=== PATIENT | female | born 1940 | race Caucasian/White ===

== ENCOUNTER → 2016-10-05 | Outpatient (CLI) | payer MEDICARE, OTHER ==
[~2016-10-05] MED LIST: ACET-2055 PO; ASPI-586 PO; D3/R1CAP PO; FLUT9.9S NSEACH; FLUTICASONE; GADOBUTROL 7.5 MMOL/7.5 ML (GADAVIST) VIAL IV ONE; GLUC1TAB29 PO; LEVO100T PO; LISI10TA2 PO; METO-272 PO; OMEP20CA6 PO; PRAV80TA2 PO; VITA150T PO
[2016-10-05 14:13] LABS: BLOOD UREA NITROGEN 16 MG/DL (7-18); BUN/CREATININE RATIO 19 (0-20); CREATININE SERUM 0.85 MG/DL (0.60-1.30); GFR ESTIMATED > 60
--- NOTE | 2016-10-05 15:59 | Diagnostic Imaging Report ---
PROCEDURE: MR imaging of the brain with and without contrast. TECHNIQUE: Multiplanar, multisequence MR imaging of the brain was performed with and without contrast. INDICATION: TIA. Dizziness and lightheadedness. 6 mL of Gadavist is administered intravenously. FINDINGS: There is no diffusion restriction to suggest an acute infarct or other diffusion abnormality. There is prominent periventricular and deep white matter T2 hyperintense signal abnormalities without associated edema or mass effect. No contrast enhancement. This is most likely related to chronic microvascular ischemic changes. There is no hydrocephalus. No extra-axial fluid collection is seen. The pituitary gland is normal in size. No hypothalamic or pineal region mass. The central vascular flow-voids appear grossly unremarkable. The internal auditory canals and inner ear structures appear unremarkable. There is minimal mucosal thickening in the ethmoid air cells and mild mucosal thickening along the nasal cavity in the middle and inferior turbinates. The orbits appear symmetric. IMPRESSION: White matter findings are suggestive of chronic microvascular ischemic changes. No acute infarct or enhancing mass. Dictated by: Dictated on workstation # [id number]
--- NOTE | 2016-10-05 16:14 | Diagnostic Imaging Report ---
PROCEDURE: US Carotid Duplex Bilateral. TECHNIQUE: Multiple real-time grayscale images were obtained over the carotid arteries in various projections bilaterally. Additional duplex Doppler and color Doppler images were also obtained. INDICATION: Dizziness, lightheadedness and TIA. FINDINGS: Grayscale images demonstrate no significant atherosclerotic plaque. Color Doppler demonstrates patency of the common, and internal and external carotid arteries bilaterally. There is antegrade flow demonstrated in the vertebral arteries as well. Peak systolic velocities are 72, 91 and 88 cm/s from proximal to distal on the right side and on the left 70, 83 and 91 cm/s. ICA/CCA ratios are up to 0.9 on the right and 1.1 on the left. IMPRESSION: Estimated underlying stenosis is in the range of 0-25% bilaterally. Dictated by: Dictated on workstation # [id number]
== END ==
LOC: RAD 13:35
PROVIDERS: ATTEND Nurse Practitioner Family
DX: R42 Dizziness and giddiness (principal); R51 Headache; Z86.73 Personal history of transient ischemic attack (TIA), and cerebral infarction without residual deficits
CPT/HCPCS: 36415; 70553; 82565; 84520; 93880

== ENCOUNTER 2017-10-04 14:08 | Outpatient (RCR) | payer MEDICARE, OTHER ==
[~2017-10-04 14:08] MED LIST changes: -GADOBUTROL 7.5 MMOL/7.5 ML (GADAVIST) VIAL IV ONE; -METO-272 PO; +METO-370 PO
== END 2017-10-07 | disposition home or self-care (01) ==
LOC: CR3 14:08
PROVIDERS: ATTEND Family Medicine
DX: Z29.8 Encounter for other specified prophylactic measures (principal)

== ENCOUNTER 2017-11-03 11:25 | Outpatient (RCR) | payer MEDICARE, OTHER | END 2017-11-06 | disposition home or self-care (01) | LOC: CR3 11:25 | PROVIDERS: ATTEND Family Medicine | DX: Z29.8 Encounter for other specified prophylactic measures (principal) ==

== ENCOUNTER 2018-01-05 13:31 | Outpatient (RCR) | payer MEDICARE, OTHER | END 2018-01-14 | disposition home or self-care (01) | LOC: CR3 13:31 | PROVIDERS: ATTEND Family Medicine | DX: Z29.8 Encounter for other specified prophylactic measures (principal) ==

== ENCOUNTER 2018-02-08 06:00 | Outpatient (RCR) | payer MEDICARE, OTHER | END 2018-02-18 | disposition home or self-care (01) | LOC: CR3 06:00 | PROVIDERS: ATTEND Family Medicine | DX: Z29.8 Encounter for other specified prophylactic measures (principal) ==

== ENCOUNTER 2018-02-26 12:23 | Emergency (ER) | payer MEDICARE, OTHER ==
[~2018-02-26] VITALS: Ht 160 cm; Wt 65.8 kg
--- OUTSIDE RECORDS SUMMARY | 2018-02-26 12:28 | XMS REPORT | Clinical Summary ---
Author Author [facility] Organization [facility] Address Unknown Phone Unavailable Care Team Providers Care Cytopathologist Name Role Phone Ange Frazier MD PCP Unavailable Allergies Active Allergy Reactions Severity Noted Date Comments Meperidine 12/19/2013 "cant function" dizzy" "lightheaded" Hydromorphone (Bulk) 12/19/2013 "cant function" "dizzy" Hydrocodone 12/19/2013 Hallucinate Latex, Natural Rubber Rash Low 10/27/2013 Oxycodone 12/19/2013 Hallucinate, headache Sulfa (Sulfonamide Hives, Swelling 09/15/2013 Antibiotics) Current Medications Prescription Sig. Disp. Refills Start End Date Status Date pravastatin (PRAVACHOL) Take 80 mg by mouth Active 80 MG tablet daily. METOPROLOL SUCCINATE ORAL Take 50 mg by mouth Active daily. LISINOPRIL ORAL Take 20 mg by mouth Active daily. fluticasone (FLONASE) 50 1 spray into each Active mcg/actuation nasal spray nostril. diazepam (VALIUM) 5 MG Take 5 mg by mouth every Active tablet 6 (six) hours as needed for anxiety or muscle spasms. traMADol (ULTRAM) 50 mg Take 50 mg by mouth every Active tablet 6 (six) hours as needed for pain. Two tabs every 6 hours for a total of 100mg acetaminophen (TYLENOL 8 Take 650 mg by mouth Active HOUR) 650 MG CR tablet every 6 (six) hours. rivaroxaban (XARELTO) 10 Take 10 mg by mouth 2 Active mg tablet (two) times a day. To take for 3 weeks and then take 20mg as prescribed fluticasone (FLONASE) 50 inhale 1 spray by 1 0 10/17/19 Active mcg/actuation nasal spray intranasal route every 15 day in each nostril acetaminophen (TYLENOL take 2 tablet by oral 1 0 10/17/19 Active ARTHRITIS PAIN) 650 MG CR route at night 15 tablet cholecalciferol, vitamin Take as directed 1 0 04/19/18 Active D3, (VITAMIN D3) 5,000 00 unit Tab omeprazole (PRILOSEC OTC) Take once daily 1 0 08/16/19 Active 20 MG tablet 14 pravastatin (PRAVACHOL) take 1 tablet (80MG) by 30 0 08/16/19 Active 80 MG tablet oral route every day 14 aspirin (ASPIRIN LOW take 1 tablet (81MG) by 1 0 02/23/20 Active DOSE) 81 MG EC tablet oral route every day 12 glucosamine HCl-msm 2 po daily 60 0 02/23/20 Active (GLUCOSAMINE MSM) 12 1,500-500 mg/30 mL Liqd calcium carbonate-vitamin 2 po daily 60 0 02/23/20 Active D3 (CALCIUM 500 WITH D) 12 500 mg(1,250mg) -400 unit Tab multivitamin (THERAGRAN) 1 po daily 30 0 02/23/20 Active per tablet 12 metoprolol succinate take 1 tablet (50MG) by 30 10 11/02/19 Active (TOPROL-XL) 50 MG 24 hr oral route every day 15 tablet levothyroxine (SYNTHROID, Take one tablet (100 mcg 30 tablet 6 Active LEVOTHROID) 100 MCG total) by mouth daily. 15 tablet levothyroxine (SYNTHROID) 1 tab po daily 30 tablet 3 01/24/20 Active 100 MCG tablet 15 lisinopril Take one tablet (10 mg 30 tablet 3 01/24/20 Active (PRINIVIL,ZESTRIL) 10 MG total) by mouth daily. 15 tablet Active Problems Problem Noted Date Chronic knee pain 12/19/2013 Right knee pain 11/07/2013 Syncope and collapse 11/29/2012 Family History Medical History Relation Name Comments Other Sister Diagnosed with HTN, Relation Name Status Comments Father Cause of was CAD at age 68. (Age 68) Mother Cause of was at age 86. (Age 86) Sister Social History Tobacco Use Types Packs/Day Years Used Date Never Smoker Alcohol Use Drinks/Week oz/Week Comments Yes 1 drink a week Sex Assigned at Date Recorded Not on file Last Filed Vital Signs Vital Sign Reading Time Taken Blood Pressure 138/86 10/16/2014 2:55 PM CDT Pulse 66 10/16/2014 2:55 PM CDT Temperature 36.6 C (97.9 F) 12/22/2013 11:23 AM CDT Respiratory Rate 22 12/22/2013 1:29 PM CDT Oxygen Saturation 97% 12/22/2013 1:29 PM CDT Inhaled Oxygen - - Concentration Weight 64.9 kg (143 lb) 10/16/2014 2:55 PM CDT Height 160 cm (5' 3") 10/16/2014 2:55 PM CDT Body Mass Index 25.33 10/16/2014 2:55 PM CDT Plan of Treatment Health Maintenance Due Date Last Done Comments Td # 1941 Zoster Vaccine# (1 of 2) 12/16/1991 Osteoporosis Screening 2006 Pneumococcal Immunization 2006 65+ (1 of 2 - PCV13) Fall Risk Assessment # 12/22/2014 12/22/2013 Influenza Vaccine (#1) 2018 Implants Implanted Type Area Nocturnist Device Expiration Model / Identifier Date Serial / Lot Implant Cement Bone [place] G-Hv Non-Tissue Right: BIOMET 05/20/2015 [id number] / W/Gentamicin Antibiotic 40gr [id number] Implant Knee / (Thicker Than 348226 Pmm# [id number]) - [id number] Implanted: Qty: 1 on 11/07/2013 Implant Cement Bone [place] G-Hv Non-Tissue Right: BIOMET 05/20/2015 [id number] / W/Gentamicin Antibiotic 40gr [id number] Implant Knee / (Thicker Than 395178 Pmm# [id number]) - [id number] Implanted: Qty: 1 on 11/07/2013 by Cuate Mcdonnell DO Aesculap [employer] As [place] Femur Non-Tissue Right: Aesculap 2023 / Miguelito. Size 62,5mm X 43,5 Mm Right F4 Implant Knee / R [id number] Implanted: Qty: 1 on 11/07/2013 by Cuate Mcdonnell DO Braun As Obturator Screw 0 12mm X Non-Tissue Right: AESCULAP ORTHO / 7mm Implant Knee / Implanted: Qty: 1 on 11/07/2013 by [id number] Cuate Mcdonnell DO Braun [place] Patella P2 0 30 Mm X Non-Tissue Right: AESCULAP ORTHO 06/17/2018 / 8 Mm Implant Knee / Implanted: Qty: 1 on 11/07/2013 by [id number] Cuate Mcdonnell DO Braun As Fabricio Cr/Ps Tibial Non-Tissue Right: AESCULAP ORTHO 04/19 / Plateau 75 Mm X 48mm T3 Implant Knee / Implanted: Qty: 1 on 11/07/2013 by [id number] Cuate Mcdonnell DO [employer] [place] Gliding Surface Non-Tissue Right: AESCULAP ORTHO 07/18 / T3/T3 + X 10 Mm Implant Knee / Implanted: Qty: 1 on 11/07/2013 by [id number] Cuate Mcdonnell DO Lens Implanted: Explanted: Results Not on filefrom Last 3 Months
--- OUTSIDE RECORDS SUMMARY | 2018-02-26 12:31 | XMS REPORT | CCD ---
Author Author [facility]en [facility]ez Organization [facility] Address [address] [place] [address] Phone Care Team Providers Care Bell Clerk Name Role Phone PP Unavailable CCM Unavailable Summary Purpose Interface Exchange Insurance Providers Payer name Policy type / Coverage type Covered republican ID Effective Begin Date Effective End Date WPS Medicare Part B Medicare Part B [id number] Unknown [place] Intermediate Life Insurance Medicare Part B [id number] Unknown Family history Mother Diagnosis Age At Onset GI bleed Unknown Dementia Unknown Colon cancer Unknown Father Diagnosis Age At Onset Heart disease Unknown Stroke Unknown Social History Social History Element Codes Description Effective Dates Marital status Unknown twice - twice 02/11/2015 Living arrangements Unknown House 02/11/2015 Education level Unknown Some College 02/11/2015 Employment Unknown Retired - 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 - 02/11/[address]: 092408063 Never smoker 02/11/2015 Alcohol history Unknown occasionally drinks alcohol 02/11/2015 Allergies, Adverse Reactions, Alerts Substance Reaction Codes Entered Date Inactivated Date Status CODEINE RxNorm: 2670 02/11/2015 No Inactive Date Active allergy Unknown 12/23/2016 No Inactive Date Active ciprofloxacin rash, RxNorm: 18714 02/26/2015 No Inactive Date Active hydrocodone Unknown 02/11/2015 No Inactive Date Active GABAPENTIN Unknown 12/23/2016 No Inactive Date Active SULFA (SULFONAMIDES) Unknown 02/11/2015 No Inactive Date Active Past Medical History Illness Codes Condition Status Onset Date Resolved Date Acute cystitis with hematuria ICD-9: 595.0 ICD-10: N30.01 Active 11/18/2017 Unknown Otalgia, right ear ICD -9: 388.70 ICD-10: H92.01 Active 03/25/2017 Unknown Other acute sinusitis ICD-9: 461.8 ICD-10: J01.80 Active 11/03/2017 Unknown Anemia, unspecified ICD-9: 285.9 ICD-10: D64.9 Active 09/27/2017 Unknown Other fatigue ICD-9: 780.79 ICD-10: R53.83 Active 02/26/2016 Unknown Other malaise ICD-9: 780.79 ICD-10: R53.81 Active 09/22/2017 Unknown Pain in left knee ICD- 9: 719.46 ICD-10: M25.562 Active 09/22/2017 Unknown Pain in right knee ICD -9: 719.46 ICD-10: M25.561 Active 09/22/2017 Unknown Acute bronchitis due to other specified organisms ICD-9: 466.0 ICD-10: J20.8 Active 04/01/2017 Unknown Cough ICD-9: 786.2 ICD-10: R05 Active 04/01/2017 Unknown Other allergic rhinitis ICD-9: 477.8 ICD-10: J30.89 Active 02/26/2016 Unknown Encounter for general adult medical examination with abnormal findings ICD-9: V70.0 ICD-10: Z00.01 Active 12/23/2016 Unknown Benign paroxysmal vertigo, bilateral ICD-9: 386.11 ICD-10: H81.13 Active 12/08/2016 Unknown Impaired fasting glucose ICD-9: 790.21 ICD-10: R73.01 Active 12/09/2016 Unknown Hypothyroidism, unspecified ICD-9: 244.9 ICD-10: E03.9 Active 02/26/2016 Unknown 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 Active 06/01/2016 Unknown Essential (primary) hypertension ICD-9: 401.9 ICD-10: I10 Active 09/09/2015 Unknown Mixed hyperlipidemia ICD-9: 272.2 ICD-10: E78.2 Active 09/09/2015 Unknown Dizziness and giddiness ICD-9: 780.4 ICD-10: R42 Active 09/28/2016 Unknown Headache ICD-9: 784.0 ICD-10: R51 Active 07/06/2016 Unknown Dysuria ICD-9: 788.1 ICD-10: R30.0 Active 02/20/2015 Unknown Acute laryngopharyngitis ICD-9: 465.0 ICD-10: J06.0 Active 02/26/2016 Unknown Other specified hypothyroidism ICD-9: 244.8 ICD-10: E03.8 Active 02/26/2016 Unknown Encounter for screening mammogram for malignant neoplasm of breast ICD-9: V76.12 ICD-10: Z12.31 Active 09/26/2015 Unknown Unspecified osteoarthritis, unspecified site ICD-9: 715.90 ICD-10: M19.90 Active 05/13/2015 Unknown Urinary tract infection, site not specified ICD-9: 599.0 ICD-10: N39.0 Active 02/28/2015 Unknown Hypertension Unknown Active 02/11/2015 Unknown Hypothryroidism Unknown Active 02/11/2015 Unknown Osteoarthritis Unknown Active 02/11/2015 Unknown Problems Condition Codes Effective Dates Condition Status Acute cystitis with hematuria ICD-9: 595.0 ICD-10: N30.01 11/18/2017 Active Otalgia, right ear ICD -9: 388.70 ICD-10: H92.01 03/25/2017 Active Other acute sinusitis ICD-9: 461.8 ICD-10: J01.80 11/03/2017 Active Anemia, unspecified ICD-9: 285.9 ICD-10: D64.9 09/27/2017 Active Other fatigue ICD-9: 780.79 ICD-10: R53.83 02/26/2016 Active Other malaise ICD-9: 780.79 ICD-10: R53.81 09/22/2017 Active Pain in left knee ICD- 9: 719.46 ICD-10: M25.562 09/22/2017 Active Pain in right knee ICD -9: 719.46 ICD-10: M25.561 09/22/2017 Active Acute bronchitis due to other specified organisms ICD-9: 466.0 ICD-10: J20.8 04/01/2017 Active Cough ICD-9: 786.2 ICD-10: R05 04/01/2017 Active Other allergic rhinitis ICD-9: 477.8 ICD-10: J30.89 02/26/2016 Active Encounter for general adult medical examination with abnormal findings ICD-9: V70.0 ICD-10: Z00.01 12/23/2016 Active Benign paroxysmal vertigo, bilateral ICD-9: 386.11 ICD-10: H81.13 12/08/2016 Active Impaired fasting glucose ICD-9: 790.21 ICD-10: R73.01 12/09/2016 Active Hypothyroidism, unspecified ICD-9: 244.9 ICD-10: E03.9 02/26/2016 Active 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 06/01/2016 Active Essential (primary) hypertension ICD-9: 401.9 ICD-10: I10 09/09/2015 Active Mixed hyperlipidemia ICD-9: 272.2 ICD-10: E78.2 09/09/2015 Active Dizziness and giddiness ICD-9: 780.4 ICD-10: R42 09/28/2016 Active Headache ICD-9: 784.0 ICD-10: R51 07/06/2016 Active Dysuria ICD-9: 788.1 ICD-10: R30.0 02/20/2015 Active Acute laryngopharyngitis ICD-9: 465.0 ICD-10: J06.0 02/26/2016 Active Other specified hypothyroidism ICD-9: 244.8 ICD-10: E03.8 02/26/2016 Active Encounter for screening mammogram for malignant neoplasm of breast ICD-9: V76.12 ICD-10: Z12.31 09/26/2015 Active Unspecified osteoarthritis, unspecified site ICD-9: 715.90 ICD-10: M19.90 05/13/2015 Active Urinary tract infection, site not specified ICD-9: 599.0 ICD-10: N39.0 02/28/2015 Active Hypertension Unknown 02/11/2015 Active Hypothryroidism Unknown 02/11/2015 Active Osteoarthritis Unknown 02/11/2015 Active Medications Medication Codes Instructions Start Date Stop Date Status Fill Instructions Synthroid 88 mcg tablet RxNorm: 465639 TAKE 1 TABLET BY MOUTH DAILY 12/07/2017 03/06/2018 Active 12/06/2017 11:46:49 AM Lipitor 80 mg tablet RxNorm: 976163 1 Tablet(s) PO daily 201711/23/2018 Active pravastatin 80 mg tablet RxNorm: 040771 1 Tablet(s) PO daily 11/29/2017 Inactive Lipitor 80 mg tablet RxNorm: 789533 1 Tablet(s) PO daily 201711/28/2017 Inactive lisinopril 20 mg tablet RxNorm: 882346 TAKE 1 TABLET BY MOUTH TWICE DAILY 11/23/2017 04/21/2018 Active Generic For:*PRINIVIL 20 MG TABLET 11/23/2017 11:29:44 AM Macrobid 100 mg capsule RxNorm: 670872 1 Capsule(s) PO BID 06/201711/25/2017 Inactive Macrobid 100 mg capsule RxNorm: 440335 1 Capsule(s) PO BID 06/201711/18/2017 Inactive Lomotil 2.5 mg-0.025 mg tablet RxNorm: 9838642 1 -2 Tablet(s) PO TID as needed 11/19/2017 11/25/2017 Inactive Lomotil 2.5 mg-0.025 mg tablet RxNorm: 3864817 1 -2 Tablet(s) PO TID as needed 11/19/2017 11/18/2017 Inactive Pyridium 200 mg tablet RxNorm: 3571795 1 Tablet(s) PO TID as needed 11/18/2017 11/22/2017 Inactive Augmentin 500 mg-125 mg tablet RxNorm: 631364 1 Tablet(s) PO TID 11/18/2017 11/27/2017 Inactive Keflex 500 mg capsule RxNorm: 336226 1 Capsule(s) PO TID 201711/09/2017 Inactive Denavir 1 % topical cream RxNorm: 202282 1 TOP TID as needed cold sores 11/01/2017 01/29/2018 Active Denavir 1 % topical cream RxNorm: 603660 1 TOP TID as needed cold sores 11/01/2017 10/31/2017 Inactive Synthroid 88 mcg tablet RxNorm: 285716 TAKE 1 TABLET BY MOUTH DAILY 09/29/2017 11/27/2017 Inactive 09/29/2017 12:58:07 PM pravastatin 80 mg tablet RxNorm: 315797 1 Tablet(s) PO daily 08/30/2017 Inactive pravastatin 80 mg tablet RxNorm: 302548 1 Tablet(s) PO daily 11/28/2017 Inactive Synthroid 88 mcg tablet RxNorm: 321718 TAKE 1 TABLET BY MOUTH DAILY 08/30/2017 09/28/2017 Inactive 08/30/2017 10:53:26 AM metoprolol succinate ER 50 mg tablet,extended release 24 hr RxNorm: 076264 Tablet (s) TAKE 1 TABLET BY MOUTH DAILY 08/17/2017 03/14/2018 Active PLEASE SEND REFILL REQUESTS ELECTRONICALLY!! lisinopril 20 mg tablet RxNorm: 344416 TAKE 1 TABLET BY MOUTH TWICE DAILY 06/18/2017 11/14/2017 Inactive Generic For:*PRINIVIL 20 MG TABLET 06/18/2017 1:31: 00 PM Synthroid 88 mcg tablet RxNorm: 595159 TAKE 1 TABLET BY MOUTH DAILY 05/24/2017 08/21/2017 Inactive 05/24/2017 2:13:21 PM cetirizine 10 mg tablet RxNorm: 7110715 1 Tablet(s) PO daily 12/12/2017 Active Zithromax Z-Russell 250 mg capsule RxNorm: 743348 1 Capsule(s) PO 04/02/2017 04/05/2017 Inactive Zithromax Z-Russell 250 mg tablet RxNorm: 839310 1 Tablet(s) PO 04/01/2017 Inactive Zithromax Z-Russell 250 mg capsule RxNorm: 186692 1 Capsule(s) PO 04/02/2017 04/01/2017 Inactive Zithromax Z-Russell 250 mg tablet RxNorm: 684229 1 Tablet(s) PO 04/06/2017 Inactive Ventolin HFA 90 mcg/actuation aerosol inhaler RxNorm: 257220 2 INH QID as needed - for the first 3 days inhale at least two puffs three times daily, then use as needed for shortness of breath 04/01/2017 04/30/2017 Inactive Keflex 500 mg capsule RxNorm: 021158 1 Capsule(s) PO TID 201604/01/2017 Inactive meclizine 25 mg tablet RxNorm: 732201 1 Tablet(s) PO Q6 PRN 1 Tablet(s) PO Q6 PRN 03/25/2017 No Stop Date Active dizziness meclizine 25 mg tablet RxNorm: 018006 Tablet(s) 1 Tablet(s) PO Q6 PRN 03/25/2017 03/24/2017 Inactive dizziness Kenalog 40 mg/mL suspension for injection RxNorm: 4281978 1 Milliliter(s) Inj 03/25/2017 03/25/2017 Inactive meclizine 25 mg tablet RxNorm: 648687 1 Tablet(s) PO Q6 PRN 03/24/2017 Inactive dizziness lisinopril 20 mg tablet RxNorm: 648113 1 Tablet(s) PO BID 01/1506/13/2017 Inactive metoprolol succinate ER 50 mg tablet,extended release 24 hr RxNorm: 257322 TAKE 1 TABLET BY MOUTH DAILY 01/07/20172017 Inactive Generic For:TOPROL XL 50MG TAB 01/07/2017 12:38:23 PM Synthroid 88 mcg tablet RxNorm: 101336 TAKE 1 TABLET BY MOUTH DAILY 12/25/2016 05/23/2017 Inactive 12/25/2016 9:47:08 AM Zithromax Z-Russell 250 mg tablet RxNorm: 555771 Tablet(s) PO UD 03/24/2017 Inactive meclizine 25 mg tablet RxNorm: 702580 1 Tablet(s) PO Q6 PRN 12/20/2016 Inactive dizziness Kenalog 40 mg/mL suspension for injection RxNorm: 8188354 Milliliter(s) Inj 12/08/2016 12/08/2016 Inactive meloxicam 15 mg tablet RxNorm: 762956 1 Tablet(s) PO daily 12/20/2016 Inactive cetirizine 10 mg tablet RxNorm: 6483861 1 Tablet(s) PO daily 05/16/2017 Inactive pravastatin 40 mg tablet RxNorm: 800266 1 Tablet(s) PO BID 07/201608/30/2017 Inactive Cancel 80 mg tab lisinopril 20 mg tablet RxNorm: 968093 1 Tablet(s) PO BID 08/1212/22/2016 Inactive Synthroid 88 mcg tablet RxNorm: 149943 1 Tablet(s) PO TAKE ONE (1) TABLET BY MOUTH DAILY 07/28/2016 12/24/2016 Inactive decrease dose hydralazine 25 mg tablet RxNorm: 137769 1 Tablet(s) PO TID as needed for Systolic blood pressure over 170 07/06/20162016 Inactive lisinopril 20 mg tablet RxNorm: 548043 1 Tablet(s) PO BID to replace your other lisinopril dose 07/06/2016 08/04/2016 Inactive lisinopril 10 mg tablet RxNorm: 265820 TAKE ONE TABLET BY MOUTH TWICE DAILY 06/10/2016 08/11/2016 Inactive Generic For:ZESTRIL 10 MG TABLET 06/09/2016 12:58: 50 PM triamcinolone acetonide 0.1 % topical cream RxNorm: 0361626 1 Application TOP TID as needed 06/01/2016 No Stop Date Active nystatin 100,000 unit/gram topical cream RxNorm: 714585 1 Gram(s) TOP TID as needed 06/01/2016 No Stop Date Active metoprolol succinate ER 50 mg tablet,extended release 24 hr RxNorm: 312221 1 Tablet(s) PO daily 05/26/2016 12/21/2016 Inactive cetirizine 10 mg tablet RxNorm: 9427825 1 Tablet(s) PO daily 10/18/2016 Inactive Synthroid 88 mcg tablet RxNorm: 657140 1 Tablet(s) PO TAKE ONE (1) TABLET BY MOUTH DAILY 03/06/2016 08/02/2016 Inactive Brand name only! Synthroid 88 mcg tablet RxNorm: 517841 1 Tablet(s) PO TAKE ONE (1) TABLET BY MOUTH DAILY 03/04/2016 03/05/2016 Inactive decrease dose cetirizine 10 mg tablet RxNorm: 9762991 1 Tablet(s) PO daily 03/22/2016 Inactive amoxicillin 500 mg capsule RxNorm: 359181 1 Capsule(s) PO TID 02/27/2016 03/04/2016 Inactive lisinopril 10 mg tablet RxNorm: 723246 TAKE ONE TABLET BY MOUTH TWICE DAILY 02/06/2016 06/04/2016 Inactive Generic For:ZESTRIL 10 MG TABLET 02/06/2016 12:16: 38 PM Synthroid 100 mcg tablet RxNorm: 680352 TAKE ONE (1) TABLET BY MOUTH DAILY 01/03/2016 03/03/2016 Inactive 01/03/2016 10:35:14 AM N O T I C E Last quantity doesn't match original quantity lisinopril 10 mg tablet RxNorm: 092546 1 Tablet(s) PO BID 10/0301/31/2016 Inactive Synthroid 100 mcg tablet RxNorm: 647753 1 Tablet(s) PO daily 01/02/2016 Inactive metoprolol succinate ER 50 mg tablet,extended release 24 hr RxNorm: 859430 1 Tablet(s) PO daily 10/04/2015 04/30/2016 Inactive Tylenol Arthritis 650 mg tablet,extended release RxNorm: 1647499 2 Tablet(s) PO TID 09/10/2015 No Stop Date Active metoprolol succinate ER 50 mg tablet,extended release 24 hr RxNorm: 544584 1 Tablet(s) PO daily 09/05/2015 10/03/2015 Inactive pravastatin 80 mg tablet RxNorm: 662659 1 Tablet(s) PO QHS 08/30/2015 Inactive pravastatin 40 mg tablet RxNorm: 964230 1 Tablet(s) PO BID 08/29/2015 Inactive Cancel 80 mg tab pravastatin 40 mg tablet RxNorm: 951450 1 Tablet(s) PO BID 08/19/2016 Inactive Cancel 80 mg tab lisinopril 10 mg tablet RxNorm: 474910 1 Tablet(s) PO BID 06/1308/11/2016 Inactive lisinopril 10 mg tablet RxNorm: 360677 1 Tablet(s) PO BID 06/1310/03/2015 Inactive Synthroid 100 mcg tablet RxNorm: 663912 1 Tablet(s) PO daily 10/03/2015 Inactive ceftriaxone 1 gram solution for injection RxNorm: 2555287 Inj 03/01/2015 03/01/2015 Inactive ceftriaxone 1 gram solution for injection RxNorm: 4436344 Inj 02/28/2015 02/28/2015 Inactive ceftriaxone 1 gram solution for injection RxNorm: 8433766 Inj 02/27/2015 02/27/2015 Inactive ceftriaxone 1 gram solution for injection RxNorm: 4262066 Inj 02/26/2015 02/26/2015 Inactive ceftriaxone 1 gram solution for injection RxNorm: 0789867 Inj 02/25/2015 02/25/2015 Inactive phenazopyridine 200 mg tablet RxNorm: 4351209 1 Tablet(s) PO Q8 02/21/2015 02/20/2015 Inactive Cipro 500 mg tablet RxNorm: 253512 1 Tablet(s) PO BID 201402/20/2015 Inactive phenazopyridine 200 mg tablet RxNorm: 0902616 1 Tablet(s) PO Q8 02/21/2015 02/25/2015 Inactive Cipro 500 mg tablet RxNorm: 907438 1 Tablet(s) PO BID 201402/27/2015 Inactive lisinopril 10 mg tablet RxNorm: 210429 1 Tablet(s) PO BID 02/1406/12/2015 Inactive metoprolol succinate ER 50 mg tablet,extended release 24 hr RxNorm: 793464 3/4 Tablet(s) PO daily 02/11/2015 09/04/2015 Inactive Voltaren 1 % topical gel RxNorm: 424187 2 Gram(s) TOP QID use this on affected joints up to four times daily. 02/11/2015 03/12/2015 Inactive Probiotic oral RxNorm : 6205 oral No Start Date Active aspirin 81 mg tablet RxNorm: 135660 1 Tablet(s) PO daily No Start Date Active Super B-Complex tablet RxNorm: 1 Tablet(s) PO No Start Date Active Super-D3+ oral RxNorm : oral No Start Date Active lisinopril 40 mg tablet RxNorm: 115498 1 Tablet(s) PO BID No Start Date Active Prilosec OTC 20 mg tablet,delayed release RxNorm: 879763 2 Tablet(s) PO QAM No Start Date Active Flonase Allergy Relief 50 mcg/actuation nasal spray, suspension RxNorm: 0682960 1 [place] NASAL as needed No Start Date Active Move Free Ultra 40 mg-10 mg-3.3 mg tablet RxNorm: 1 Tablet(s) PO daily No Start Date Active metoprolol tartrate 50 mg tablet RxNorm: 968145 1 Tablet(s) PO daily No Start Date 02/10/2015 Inactive lisinopril 10 mg tablet RxNorm: 456849 1 Tablet(s) PO BID No Start Date 02/13/2015 Inactive pravastatin 80 mg tablet RxNorm: 362340 1 Tablet(s) PO daily No Start Date 08/29/2015 Inactive Synthroid 100 mcg tablet RxNorm: 460039 1 Tablet(s) PO daily No Start Date 06/09/2015 Inactive Tylenol Arthritis 650 mg tablet,extended release RxNorm: 5722730 4 Tablet(s) PO daily No Start Date 09/09/2015 Inactive Medication Administered Medication Codes Instructions Start Date Status Kenalog 40 mg/mL suspension for injection RxNorm: 9871740 1Milliliter 03/25/2017 No longer Active Kenalog 40 mg/mL suspension for injection RxNorm: 2451907 Milliliter 12/08/2016 No longer Active ceftriaxone 1 gram solution for injection RxNorm: 7236185 03/01/2015 No longer Active ceftriaxone 1 gram solution for injection RxNorm: 9121832 02/28/2015 No longer Active ceftriaxone 1 gram solution for injection RxNorm: 1994458 02/27/2015 No longer Active ceftriaxone 1 gram solution for injection RxNorm: 1383924 02/26/2015 No longer Active ceftriaxone 1 gram solution for injection RxNorm: 2439143 02/25/2015 No longer Active Immunizations Vaccine Codes Date Status Influenza CVX: 141 03/15/2017 completed Influenza CVX: 141 03/18/2016 completed Influenza CVX: 141 02/11/2015 completed Assessments Condition Codes Effective Dates Acute cystitis with hematuria ICD-10: N30.01 ICD-9: 595.0 11/18/2017 Other acute sinusitis ICD-10: J01.80 ICD-9: 461.8 11/03/2017 Otalgia, right ear ICD-10: H92.01 ICD-9: 388.70 11/03/2017 Anemia, unspecified ICD-10: D64.9 ICD-9: 285.9 09/27/2017 Other fatigue ICD-10: R53.83 ICD-9: 780.79 09/22/2017 Pain in left knee ICD-10: M25.562 ICD-9: 719.46 09/22/2017 Pain in right knee ICD-10: M25.561 ICD-9: 719.46 09/22/2017 Other malaise ICD-10: R53.81 ICD-9: 780.79 09/22/2017 Cough ICD-10: R05 ICD-9: 786.2 04/01/2017 Acute bronchitis due to other specified organisms ICD-10: J20.8 ICD-9: 466.0 04/01/2017 Other allergic rhinitis ICD-10: J30.89 ICD-9: 477.8 03/25/2017 Encounter for general adult medical examination with abnormal findings ICD-10: Z00.01 ICD-9: V70.0 12/23/2016 Benign paroxysmal vertigo, bilateral ICD-10: H81.13 ICD-9: 386.11 12/22/2016 Impaired fasting glucose ICD-10: R73.01 ICD-9: 790.21 12/09/2016 Hypothyroidism, unspecified ICD-10: E03.9 ICD-9: 244.9 12/08/2016 Atrophy of thyroid (acquired) ICD-10: E03.4 ICD-9: 244.8 11/30/2016 Essential (primary) hypertension ICD-10: I10 ICD-9: 401.9 11/30/2016 Mixed hyperlipidemia ICD-10: E78.2 ICD-9: 272.2 11/30/2016 Headache ICD-10: R51 ICD-9: 784.0 09/28/2016 Dizziness and giddiness ICD-10: R42 ICD-9: 780.4 09/28/2016 Dysuria ICD-10: R30.0 ICD-9: 788.1 07/08/2016 Other specified hypothyroidism ICD-10: E03.8 ICD-9: 244.8 02/27/2016 Acute laryngopharyngitis ICD-10: J06.0 ICD-9: 465.0 02/27/2016 Encounter for screening mammogram for malignant neoplasm of breast ICD-10: Z12.31 ICD-9: V76.12 09/27/2015 Unspecified osteoarthritis, unspecified site ICD-10: M19.90 ICD-9: 715.90 05/14/2015 Urinary tract infection, site not specified ICD-10: N39.0 ICD-9: 599.0 03/01/2015 Reason For Visit Reason For Visit Effective Dates Notes urinary retention/hesitancy 11/18/2017 earache 11/03/2017 fatigue 09/22/2017 vertigo 04/01/2017 earache 03/25/2017 Annual Medicare Wellness Exam 12/23/2016 vertigo 12/22/2016 headache 12/08/2016 hypertension 11/30/2016 headache 09/28/2016 hypertension 07/06/2016 hypertension 06/01/2016 fatigue 02/27/2016 hypertension 09/10/2015 hypertension 05/14/2015 hypertension 02/11/2015 Results Observation Observation Code Item Item Code Result Date Urine Culture Ucult Complete >100,000 col/ml aerobic growth sent to ref lab 11/19/2017 B12 Xov238 B12 712.00 pg/ml 09/28/2017 C-Reactive Protein Qnt Crqnt CRP 0.1 mg/dl 09/23/2017 Comp Metabolic Ios616 NA 139 mEq/L 09/23/2017 Comp Metabolic Ifz173 K 4.8 mEq/L 09/23/2017 Comp Metabolic Qah900 CL 104 mEq/L 09/23/2017 Comp Metabolic Dpe205 CO2 28.0 mEq/L 09/23/2017 Comp Metabolic Ccd027 ANION GAP 12 09/23/2017 Comp Metabolic Mcw789 GLUCOSE 92 mg/dL 09/23/2017 Comp Metabolic Akr453 Creat 0.7 mg/dL 09/23/2017 Comp Metabolic Cmh805 eGFR 91 ml/min/1.73m2 09/23/2017 Comp Metabolic Vga817 BUN 11 mg/dL 09/23/2017 Comp Metabolic Muz079 B/C Ratio 16.4 Ratio 09/23/2017 Comp Metabolic Euc159 CALCIUM 9.0 mg/dL 09/23/2017 Comp Metabolic Tae084 ALK PHOS 76 U/L 09/23/2017 Comp Metabolic Vsq580 AST(SGOT) 24 U/L 09/23/2017 Comp Metabolic Ewu670 ALT(SGPT) 21 U/L 09/23/2017 Comp Metabolic Age295 BILI T 0.3 mg/dL 09/23/2017 Comp Metabolic Rqb975 ALBUMIN 4.1 g/dL 09/23/2017 Comp Metabolic Wna910 TPRO 6.2 g/dL 09/23/2017 Comp Metabolic Qhj023 GLOB 2.1 g/dL 09/23/2017 Comp Metabolic Lgk108 A/G Ratio 1.9 Ratio 09/23/2017 Comp Metabolic Wdk465 Osmo 277 mOsmo 09/23/2017 Vitamin D 25 Oh Zdc4122 VITAMIN D, 25 HYDROXY 78.79 ng/mL Cbc With Differential Ord2 WBC 8.21 K/ul 09/22/2017 Cbc With Differential Ord2 RBC 4.18 M/ul 09/22/2017 Cbc With Differential Ord2 HGB 12.8 g/dl 09/22/2017 Cbc With Differential Ord2 Neut% 57.3 % 09/22/2017 Cbc With Differential Ord2 HCT 40.6 % 09/22/2017 Cbc With Differential Ord2 Lymph% 28.9 % 09/22/2017 Cbc With Differential Ord2 MCV 97.1 fl 09/22/2017 Cbc With Differential Ord2 [place]% 10.5 % 09/22/2017 Cbc With Differential Ord2 MCH 30.6 pg 09/22/2017 Cbc With Differential Ord2 Eos% 2.8 % 09/22/2017 Cbc With Differential Ord2 MCHC 31.5 pg 09/22/2017 Cbc With Differential Ord2 Baso% 0.5 % 09/22/2017 Cbc With Differential Ord2 PLT 253 K/ul 09/22/2017 Cbc With Differential Ord2 RDW 12.7 % 09/22/2017 Cbc With Differential Ord2 Neut ABS# 4.71 K/ul 09/22/2017 Cbc With Differential Ord2 Lymph ABS# 2.37 K/ul 09/22/2017 Cbc With Differential Ord2 [place] ABS# 0.9 K/ul 09/22/2017 Cbc With Differential Ord2 Eos ABS# 0.2 K/ul 09/22/2017 Cbc With Differential Ord2 Baso ABS# 0.0 K/ul 09/22/2017 Free T4 Mdv430 FREE T4 0.99 ng/dL 09/22/2017 Sed Rate Ord21 ESR 3 mm/hr 09/22/2017 Tsh Ord6 TSH (3rd IS) 1.01 uIU/mL 09/22/2017 %Hba1C Bsb906 % HbA1c 49708-9 6.0 % 12/10/2016 %Hba1C Zdz716 Gluc Ave 126 mg/dL 12/10/2016 Comp Metabolic Ihs846 NA 138 mEq/L 12/09/2016 Comp Metabolic Lub675 K 5.2 mEq/L 12/09/2016 Comp Metabolic Txq289 CL 104 mEq/L 12/09/2016 Comp Metabolic Ptx629 CO2 29.0 mEq/L 12/09/2016 Comp Metabolic Gln663 ANION GAP 10 12/09/2016 Comp Metabolic Gnx600 GLUCOSE 135 mg/dL 12/09/2016 Comp Metabolic Tgk935 Creat 0.8 mg/dL 12/09/2016 Comp Metabolic Pjh299 eGFR 79 ml/min/1.73m2 12/09/2016 Comp Metabolic Eud290 BUN 18 mg/dL 12/09/2016 Comp Metabolic Dtf539 B/C Ratio 23.7 Ratio 12/09/2016 Comp Metabolic Lwe235 CALCIUM 9.5 mg/dL 12/09/2016 Comp Metabolic Cgh214 ALK PHOS 73 U/L 12/09/2016 Comp Metabolic Lte252 AST(SGOT) 24 U/L 12/09/2016 Comp Metabolic Qqo426 ALT(SGPT) 20 U/L 12/09/2016 Comp Metabolic Ift267 BILI T 0.3 mg/dL 12/09/2016 Comp Metabolic Rlz677 ALBUMIN 4.3 g/dL 12/09/2016 Comp Metabolic Gvo267 TPRO 6.4 g/dL 12/09/2016 Comp Metabolic Aob037 GLOB 2.1 g/dL 12/09/2016 Comp Metabolic Wfu904 A/G Ratio 2.0 Ratio 12/09/2016 Comp Metabolic Ohd849 Osmo 280 mOsmo 12/09/2016 Cbc With Differential Ord2 WBC 8.96 K/ul 12/09/2016 Cbc With Differential Ord2 RBC 4.12 M/ul 12/09/2016 Cbc With Differential Ord2 HGB 12.9 g/dl 12/09/2016 Cbc With Differential Ord2 HCT 38.9 % 12/09/2016 Cbc With Differential Ord2 Neut% 71.2 % 12/09/2016 Cbc With Differential Ord2 MCV 94.4 fl 12/09/2016 Cbc With Differential Ord2 Lymph% 20.5 % 12/09/2016 Cbc With Differential Ord2 [place]% 6.5 % 12/09/2016 Cbc With Differential Ord2 MCH 31.3 pg 12/09/2016 Cbc With Differential Ord2 Eos% 1.1 % 12/09/2016 Cbc With Differential Ord2 MCHC 33.2 pg 12/09/2016 Cbc With Differential Ord2 PLT 247 K/ul 12/09/2016 Cbc With Differential Ord2 Baso% 0.7 % 12/09/2016 Cbc With Differential Ord2 Neut ABS# 6.38 K/ul 12/09/2016 Cbc With Differential Ord2 RDW 13.1 % 12/09/2016 Cbc With Differential Ord2 Lymph ABS# 1.84 K/ul 12/09/2016 Cbc With Differential Ord2 [place] ABS# 0.6 K/ul 12/09/2016 Cbc With Differential Ord2 Eos ABS# 0.1 K/ul 12/09/2016 Cbc With Differential Ord2 Baso ABS# 0.1 K/ul 12/09/2016 Free T4 Nxw921 FREE T4 0.99 ng/dL 12/09/2016 Tsh Ord6 hTSH II 0.89 uIU/mL 12/09/2016 Tsh Ord6 hTSH II 1.19 uIU/mL 09/02/2016 Free T4 Wbl209 FREE T4 0.97 ng/dL 09/02/2016 Comp Metabolic Hlg681 NA 137 mEq/L 06/01/2016 Comp Metabolic Dvb118 K 4.1 mEq/L 06/01/2016 Comp Metabolic Vgo490 CL 104 mEq/L 06/01/2016 Comp Metabolic Awe954 CO2 25.0 mEq/L 06/01/2016 Comp Metabolic Quw624 ANION GAP 12 06/01/2016 Comp Metabolic Lgv240 GLUCOSE 108 mg/dL 06/01/2016 Comp Metabolic Wvx058 Creat 0.8 mg/dL 06/01/2016 Comp Metabolic Mcc639 eGFR 80 ml/min/1.73m2 06/01/2016 Comp Metabolic Qqm805 BUN 15 mg/dL 06/01/2016 Comp Metabolic Zgs890 B/C Ratio 20.0 Ratio 06/01/2016 Comp Metabolic Ifn200 CALCIUM 9.1 mg/dL 06/01/2016 Comp Metabolic Jxx560 ALK PHOS 89 U/L 06/01/2016 Comp Metabolic Wcd855 AST(SGOT) 25 U/L 06/01/2016 Comp Metabolic Zdz618 ALT(SGPT) 20 U/L 06/01/2016 Comp Metabolic Ujh799 BILI T 0.3 mg/dL 06/01/2016 Comp Metabolic Yrn980 ALBUMIN 4.2 g/dL 06/01/2016 Comp Metabolic Hkv419 TPRO 6.2 g/dL 06/01/2016 Comp Metabolic Mpc787 GLOB 2.0 g/dL 06/01/2016 Comp Metabolic Mif461 A/G Ratio 2.1 Ratio 06/01/2016 Comp Metabolic Hmc062 Osmo 275 mOsmo 06/01/2016 Free T4 Flv625 FREE T4 0.94 ng/dL 06/01/2016 Lipid Ord30 CHOL 144 mg/dL 06/01/2016 Lipid Ord30 HDL 40.0 mg/dl 06/01/2016 Lipid Ord30 TRIG 136 mg/dL 06/01/2016 Lipid Ord30 LDL 77 mg/dL 06/01/2016 Lipid Ord30 C/HDL 3.6 Ratio 06/01/2016 Cbc With Differential Ord2 WBC 6.65 K/ul 06/01/2016 Cbc With Differential Ord2 RBC 4.12 M/ul 06/01/2016 Cbc With Differential Ord2 HGB 12.8 g/dl 06/01/2016 Cbc With Differential Ord2 Neut% 41.8 % 06/01/2016 Cbc With Differential Ord2 HCT 39.7 % 06/01/2016 Cbc With Differential Ord2 Lymph% 44.5 % 06/01/2016 Cbc With Differential Ord2 MCV 96.4 fl 06/01/2016 Cbc With Differential Ord2 [place]% 8.4 % 06/01/2016 Cbc With Differential Ord2 MCH 31.1 pg 06/01/2016 Cbc With Differential Ord2 Eos% 4.5 % 06/01/2016 Cbc With Differential Ord2 MCHC 32.2 pg 06/01/2016 Cbc With Differential Ord2 PLT 243 K/ul 06/01/2016 Cbc With Differential Ord2 Baso% 0.8 % 06/01/2016 Cbc With Differential Ord2 RDW 12.8 % 06/01/2016 Cbc With Differential Ord2 Neut ABS# 2.78 K/ul 06/01/2016 Cbc With Differential Ord2 Lymph ABS# 2.96 K/ul 06/01/2016 Cbc With Differential Ord2 [place] ABS# 0.6 K/ul 06/01/2016 Cbc With Differential Ord2 Eos ABS# 0.3 K/ul 06/01/2016 Cbc With Differential Ord2 Baso ABS# 0.1 K/ul 06/01/2016 Tsh Ord6 hTSH II 1.44 uIU/mL 06/01/2016 Cbc With Differential Ord2 WBC 8.50 K/ul 02/27/2016 Cbc With Differential Ord2 RBC 3.93 M/ul 02/27/2016 Cbc With Differential Ord2 HGB 12.3 g/dl 02/27/2016 Cbc With Differential Ord2 HCT 37.6 % 02/27/2016 Cbc With Differential Ord2 Neut% 59.2 % 02/27/2016 Cbc With Differential Ord2 MCV 95.7 fl 02/27/2016 Cbc With Differential Ord2 Lymph% 26.8 % 02/27/2016 Cbc With Differential Ord2 MCH 31.3 pg 02/27/2016 Cbc With Differential Ord2 [place]% 10.0 % 02/27/2016 Cbc With Differential Ord2 Eos% 3.3 % 02/27/2016 Cbc With Differential Ord2 MCHC 32.7 pg 02/27/2016 Cbc With Differential Ord2 Baso% 0.7 % 02/27/2016 Cbc With Differential Ord2 PLT 281 K/ul 02/27/2016 Cbc With Differential Ord2 Neut ABS# 5.03 K/ul 02/27/2016 Cbc With Differential Ord2 RDW 13.6 % 02/27/2016 Cbc With Differential Ord2 Lymph ABS# 2.28 K/ul 02/27/2016 Cbc With Differential Ord2 [place] ABS# 0.9 K/ul 02/27/2016 Cbc With Differential Ord2 Eos ABS# 0.3 K/ul 02/27/2016 Cbc With Differential Ord2 Baso ABS# 0.1 K/ul 02/27/2016 Comp Metabolic Bfj736 NA 135 mEq/L 02/27/2016 Comp Metabolic Yne833 K 5.2 mEq/L 02/27/2016 Comp Metabolic Tja985 CL 102 mEq/L 02/27/2016 Comp Metabolic Bro553 CO2 27.0 mEq/L 02/27/2016 Comp Metabolic Ubg551 ANION GAP 11 02/27/2016 Comp Metabolic Avj800 GLUCOSE 93 mg/dL 02/27/2016 Comp Metabolic Ofm853 Creat 0.7 mg/dL 02/27/2016 Comp Metabolic Xeo433 eGFR 91 ml/min/1.73m2 02/27/2016 Comp Metabolic Cib207 BUN 14 mg/dL 02/27/2016 Comp Metabolic Jth014 B/C Ratio 20.9 Ratio 02/27/2016 Comp Metabolic Sin482 CALCIUM 9.4 mg/dL 02/27/2016 Comp Metabolic Epi861 ALK PHOS 100 U/L 02/27/2016 Comp Metabolic Ede556 AST(SGOT) 23 U/L 02/27/2016 Comp Metabolic Aes699 ALT(SGPT) 24 U/L 02/27/2016 Comp Metabolic Cgy314 BILI T 0.2 mg/dL 02/27/2016 Comp Metabolic Hqy781 ALBUMIN 4.3 g/dL 02/27/2016 Comp Metabolic Gmc945 TPRO 6.3 g/dL 02/27/2016 Comp Metabolic Usx707 GLOB 2.1 g/dL 02/27/2016 Comp Metabolic Kkd151 A/G Ratio 2.1 Ratio 02/27/2016 Comp Metabolic Reu076 Osmo 270 mOsmo 02/27/2016 Tsh Ord6 hTSH II 0.18 uIU/mL 02/27/2016 Free T4 Pud688 FREE T4 1.17 ng/dL 02/27/2016 Tsh Ord6 hTSH II 0.59 uIU/mL 05/10/2015 Lipid Ord30 CHOL 147 mg/dL 05/10/2015 Lipid Ord30 HDL 39.0 mg/dl 05/10/2015 Lipid Ord30 TRIG 149 mg/dL 05/10/2015 Lipid Ord30 LDL 78 mg/dL 05/10/2015 Lipid Ord30 C/HDL 3.8 Ratio 05/10/2015 Comp Metabolic Ifn260 NA 137 mEq/L 05/10/2015 Comp Metabolic Yry448 K 4.4 mEq/L 05/10/2015 Comp Metabolic Qem483 CL 102 mEq/L 05/10/2015 Comp Metabolic Tkj713 CO2 28.0 mEq/L 05/10/2015 Comp Metabolic Iow519 ANION GAP 11 05/10/2015 Comp Metabolic Lhm829 GLUCOSE 108 mg/dL 05/10/2015 Comp Metabolic Hwz327 Creat 0.7 mg/dL 05/10/2015 Comp Metabolic Upw727 eGFR 86 ml/min/1.73m2 05/10/2015 Comp Metabolic Hmf299 BUN 13 mg/dL 05/10/2015 Comp Metabolic Vgp414 B/C Ratio 18.3 Ratio 05/10/2015 Comp Metabolic Avk699 CALCIUM 9.4 mg/dL 05/10/2015 Comp Metabolic Clh002 ALK PHOS 94 U/L 05/10/2015 Comp Metabolic Vgc420 AST(SGOT) 22 U/L 05/10/2015 Comp Metabolic Pzc493 ALT(SGPT) 21 U/L 05/10/2015 Comp Metabolic Jtl591 BILI T 0.3 mg/dL 05/10/2015 Comp Metabolic Lco388 ALBUMIN 3.9 g/dL 05/10/2015 Comp Metabolic Ydl427 TPRO 6.1 g/dL 05/10/2015 Comp Metabolic Rcz948 GLOB 2.2 g/dL 05/10/2015 Comp Metabolic Vrx469 A/G Ratio 1.7 Ratio 05/10/2015 Comp Metabolic Ego244 Osmo 274 mOsmo 05/10/2015 Free T4 Vkx054 FREE T4 1.03 ng/dL 05/10/2015 Cbc With Differential Ord2 WBC 5.77 K/ul 05/10/2015 Cbc With Differential Ord2 RBC 4.25 M/ul 05/10/2015 Cbc With Differential Ord2 HGB 12.5 g/dl 05/10/2015 Cbc With Differential Ord2 Neut% 48.3 % 05/10/2015 Cbc With Differential Ord2 HCT 39.3 % 05/10/2015 Cbc With Differential Ord2 Lymph% 37.1 % 05/10/2015 Cbc With Differential Ord2 MCV 92.5 fl 05/10/2015 Cbc With Differential Ord2 MCH 29.4 pg 05/10/2015 Cbc With Differential Ord2 [place]% 9.0 % 05/10/2015 Cbc With Differential Ord2 Eos% 4.7 % 05/10/2015 Cbc With Differential Ord2 MCHC 31.8 pg 05/10/2015 Cbc With Differential Ord2 Baso% 0.9 % 05/10/2015 Cbc With Differential Ord2 PLT 228 K/ul 05/10/2015 Cbc With Differential Ord2 Neut ABS# 2.79 K/ul 05/10/2015 Cbc With Differential Ord2 RDW 13.3 % 05/10/2015 Cbc With Differential Ord2 Lymph ABS# 2.14 K/ul 05/10/2015 Cbc With Differential Ord2 [place] ABS# 0.5 K/ul 05/10/2015 Cbc With Differential Ord2 Eos ABS# 0.3 K/ul 05/10/2015 Cbc With Differential Ord2 Baso ABS# 0.1 K/ul 05/10/2015 Cbc With Differential Ord2 New Analyzer Notice Please note new ref ranges starting 05-01-2015 due to implemntation of new five part differential hematolgy analyzer. 05/10/2015 Culture Urine [id number] URINE CULTURE SEE NOTES 02/25/2015 Culture Urine [id number] Continued Results 02/25/2015 Urine Culture Ucult Complete >100,000 col/ml aerobic growth sent to ref lab 02/22/2015 Free T4 Yvc057 FREE T4 1.16 ng/dL 02/11/2015 Tsh Ord6 hTSH II 0.51 uIU/mL 02/11/2015 Review of Systems System Result Effective Dates Constitutional recent illness 11/18/2017 Constitutional No chills 11/18/2017 Constitutional No diaphoresis 11/18/2017 Constitutional No fever 11/18/2017 Eyes No eye erythema 11/18/2017 Ears/Nose/Throat/Neck No nasal discharge 11/18/2017 Ears/Nose/Throat/Neck No nasal allergies 11/18/2017 Cardiovascular No chest pain/pressure 05/2017 Cardiovascular No dyspnea 11/18/2017 Respiratory No cough 11/18/2017 Gastrointestinal No abdominal pain 2017 Gastrointestinal No constipation 2017 Gastrointestinal No diarrhea 11/18/2017 Musculoskeletal No joint complaint 2017 Dermatologic No rash 11/18/2017 Neurologic No alteration of consciousness 11/18/2017 Neurologic No mental status change 2017 Constitutional recent illness 11/03/2017 Constitutional No chills 11/03/2017 Constitutional No diaphoresis 11/03/2017 Constitutional No fever 11/03/2017 Eyes No eye erythema 11/03/2017 Ears/Nose/Throat/Neck nasal allergies Ears/Nose/Throat/Neck nasal discharge Ears/Nose/Throat/Neck otalgia 11/03/2017 Ears/Nose/Throat/Neck postnasal drip Ears/Nose/Throat/Neck sinus congestion Ears/Nose/Throat/Neck No sore throat Cardiovascular No chest pain/pressure Respiratory No cough 11/03/2017 Respiratory No chest congestion 2017 Gastrointestinal No abdominal pain 2017 Dermatologic No rash 11/03/2017 Neurologic No alteration of consciousness 11/03/2017 Neurologic No mental status change 2017 Constitutional No recent illness 2017 Constitutional No chills 09/22/2017 Constitutional No diaphoresis 09/22/2017 Constitutional fatigue 09/22/2017 Constitutional No fever 09/22/2017 Constitutional malaise 09/22/2017 Eyes No eye erythema 09/22/2017 Ears/Nose/Throat/Neck nasal allergies 09/2017 Ears/Nose/Throat/Neck No nasal discharge 09/22/2017 Ears/Nose/Throat/Neck dizziness 2017 Ears/Nose/Throat/Neck No sinus congestion 09/22/2017 Ears/Nose/Throat/Neck No sore throat 09/2017 Cardiovascular No chest pain/pressure 09/2017 Cardiovascular No dyspnea 09/22/2017 Respiratory No cough 09/22/2017 Respiratory No chest congestion 2017 Gastrointestinal No abdominal pain 2017 Gastrointestinal No constipation 2017 Gastrointestinal No diarrhea 09/22/2017 Musculoskeletal joint complaint 2017 Musculoskeletal myalgias 09/22/2017 Dermatologic No rash 09/22/2017 Neurologic No alteration of consciousness 09/22/2017 Neurologic No mental status change 2017 Neurologic headache 09/22/2017 Neurologic dizziness 09/22/2017 Neurologic No aphasia 09/22/2017 Neurologic No dyskinesia or tremor 2017 Neurologic No gait abnormality 2017 Constitutional No recent illness 2016 Constitutional No chills 04/01/2017 Constitutional fatigue 04/01/2017 Constitutional No fever 04/01/2017 Eyes No blindness 04/01/2017 Eyes No vision change 04/01/2017 Ears/Nose/Throat/Neck nasal allergies Ears/Nose/Throat/Neck nasal discharge Ears/Nose/Throat/Neck postnasal drip Ears/Nose/Throat/Neck sinus congestion Cardiovascular No chest pain/pressure Cardiovascular No dyspnea 04/01/2017 Respiratory No chest congestion 2016 Respiratory No dyspnea 04/01/2017 Gastrointestinal No abdominal pain 2016 Gastrointestinal No nausea 04/01/2017 Gastrointestinal No vomiting 04/01/2017 Musculoskeletal stiffness 04/01/2017 Musculoskeletal No swelling 04/01/2017 Musculoskeletal arthralgia(s) 04/01/2017 Musculoskeletal No muscle weakness 2016 Musculoskeletal No myalgias 04/01/2017 Dermatologic No rash 04/01/2017 Dermatologic No sores 04/01/2017 Neurologic No alteration of consciousness 04/01/2017 Neurologic headache 04/01/2017 Neurologic No mental status change 2016 Constitutional No recent illness 2016 Constitutional No anorexia 03/25/2017 Constitutional No night sweats 2016 Constitutional No chills 03/25/2017 Constitutional No diaphoresis 03/25/2017 Constitutional No fatigue 03/25/2017 Constitutional No fever 03/25/2017 Constitutional No insomnia 03/25/2017 Constitutional No malaise 03/25/2017 Constitutional No weight loss 03/25/2017 Constitutional No weight gain 03/25/2017 Eyes No eye erythema 03/25/2017 Eyes No eye discharge 03/25/2017 Ears/Nose/Throat/Neck No dizziness 2016 Ears/Nose/Throat/Neck No headache 2016 Ears/Nose/Throat/Neck nasal allergies 10/2016 Ears/Nose/Throat/Neck otalgia 03/25/2017 Ears/Nose/Throat/Neck sinus congestion Ears/Nose/Throat/Neck No sore throat 10/2016 Cardiovascular No chest pain/pressure 10/2016 Respiratory No cough 03/25/2017 Gastrointestinal No vomiting 03/25/2017 Gastrointestinal No nausea 03/25/2017 Dermatologic No sores 03/25/2017 Dermatologic No rash 03/25/2017 Neurologic No alteration of consciousness 03/25/2017 Constitutional No recent illness 2016 Constitutional No chills 12/23/2016 Constitutional No diaphoresis 12/23/2016 Constitutional No fever 12/23/2016 Eyes No eye erythema 12/23/2016 Ears/Nose/Throat/Neck No nasal discharge 12/23/2016 Cardiovascular No chest pain/pressure 09/2016 Cardiovascular No dyspnea 12/23/2016 Respiratory No cough 12/23/2016 Respiratory No dyspnea 12/23/2016 Neurologic No alteration of consciousness 12/23/2016 Neurologic No mental status change 2016 Constitutional No recent illness 2016 Constitutional No anorexia 12/22/2016 Constitutional No night sweats 2016 Constitutional No chills 12/22/2016 Constitutional No diaphoresis 12/22/2016 Constitutional fatigue 12/22/2016 Constitutional No fever 12/22/2016 Constitutional No insomnia 12/22/2016 Constitutional No malaise 12/22/2016 Constitutional No weight loss 12/22/2016 Constitutional No weight gain 12/22/2016 Eyes No eye discharge 12/22/2016 Eyes No eye erythema 12/22/2016 Ears/Nose/Throat/Neck dizziness 2016 Ears/Nose/Throat/Neck No headache 2016 Ears/Nose/Throat/Neck No nasal discharge 12/22/2016 Ears/Nose/Throat/Neck No sinus congestion 12/22/2016 Cardiovascular No chest pain/pressure 08/2016 Cardiovascular No dyspnea 12/22/2016 Cardiovascular No edema 12/22/2016 Respiratory No cough 12/22/2016 Gastrointestinal No abdominal pain 2016 Gastrointestinal No constipation 2016 Gastrointestinal No diarrhea 12/22/2016 Gastrointestinal nausea 12/22/2016 Gastrointestinal No vomiting 12/22/2016 Genitourinary/Nephrology No dysuria 12/22 Musculoskeletal No joint complaint 2016 Dermatologic No rash 12/22/2016 Neurologic No alteration of consciousness 12/22/2016 Neurologic dizziness 12/22/2016 Ears/Nose/Throat/Neck No otalgia 2016 Constitutional No recent illness 2016 Constitutional No anorexia 12/08/2016 Constitutional No night sweats 2016 Constitutional No chills 12/08/2016 Constitutional No diaphoresis 12/08/2016 Constitutional fatigue 12/08/2016 Constitutional No fever 12/08/2016 Constitutional No insomnia 12/08/2016 Constitutional No malaise 12/08/2016 Constitutional No weight loss 12/08/2016 Constitutional No weight gain 12/08/2016 Eyes No eye erythema 12/08/2016 Eyes No eye discharge 12/08/2016 Ears/Nose/Throat/Neck dizziness 2016 Ears/Nose/Throat/Neck No headache 2016 Ears/Nose/Throat/Neck nasal discharge Ears/Nose/Throat/Neck otalgia 12/08/2016 Ears/Nose/Throat/Neck sinus congestion Cardiovascular No chest pain/pressure Cardiovascular No dyspnea 12/08/2016 Cardiovascular No edema 12/08/2016 Respiratory No cough 12/08/2016 Gastrointestinal No abdominal pain 2016 Gastrointestinal No constipation 2016 Gastrointestinal No diarrhea 12/08/2016 Gastrointestinal nausea 12/08/2016 Gastrointestinal No vomiting 12/08/2016 Genitourinary/Nephrology No dysuria 12/08 Musculoskeletal No joint complaint 2016 Dermatologic No rash 12/08/2016 Neurologic No alteration of consciousness 12/08/2016 Neurologic dizziness 12/08/2016 Constitutional No recent illness 2016 Constitutional No chills 11/30/2016 Constitutional No fatigue 11/30/2016 Constitutional No fever 11/30/2016 Constitutional No insomnia 11/30/2016 Constitutional No malaise 11/30/2016 Eyes No blindness 11/30/2016 Eyes No vision change 11/30/2016 Ears/Nose/Throat/Neck No dental pain Ears/Nose/Throat/Neck No dizziness 2016 Ears/Nose/Throat/Neck No dysphagia 2016 Ears/Nose/Throat/Neck No headache 2016 Ears/Nose/Throat/Neck No hearing loss Ears/Nose/Throat/Neck No nasal allergies 11/30/2016 Ears/Nose/Throat/Neck No sore throat Ears/Nose/Throat/Neck No postnasal drip 11/30/2016 Ears/Nose/Throat/Neck No sinus congestion 11/30/2016 Cardiovascular No chest pain/pressure Cardiovascular No dyspnea 11/30/2016 Cardiovascular No edema 11/30/2016 Cardiovascular No exercise intolerance Cardiovascular No fatigue 11/30/2016 Cardiovascular No near-syncope/dizziness 11/30/2016 Respiratory No chest tightness 2016 Respiratory No cough 11/30/2016 Respiratory No dyspnea 11/30/2016 Respiratory No pedal edema 11/30/2016 Gastrointestinal No abdominal pain 2016 Gastrointestinal No constipation 2016 Gastrointestinal No diarrhea 11/30/2016 Gastrointestinal No gastroesophageal reflux 11/30/2016 Gastrointestinal No nausea 11/30/2016 Gastrointestinal No vomiting 11/30/2016 Genitourinary/Nephrology No dysuria 11/30 Genitourinary/Nephrology No nocturia Genitourinary/Nephrology No urinary incontinence 11/30/2016 Musculoskeletal stiffness 11/30/2016 Musculoskeletal No swelling 11/30/2016 Musculoskeletal arthralgia(s) 11/30/2016 Musculoskeletal No muscle weakness 2016 Musculoskeletal No myalgias 11/30/2016 Dermatologic No rash 11/30/2016 Dermatologic No sores 11/30/2016 Dermatologic No scar 11/30/2016 Neurologic No dizziness 11/30/2016 Neurologic No headache 11/30/2016 Neurologic No neck pain 11/30/2016 Neurologic No syncope 11/30/2016 Psychiatric No anxiety 11/30/2016 Psychiatric No depression 11/30/2016 Constitutional No recent illness 2016 Constitutional No chills 09/28/2016 Constitutional No diaphoresis 09/28/2016 Constitutional No fever 09/28/2016 Eyes No eye erythema 09/28/2016 Ears/Nose/Throat/Neck No nasal allergies 09/28/2016 Ears/Nose/Throat/Neck No nasal discharge 09/28/2016 Cardiovascular No chest pain/pressure 03/2017 Cardiovascular No dyspnea 09/28/2016 Cardiovascular fatigue 09/28/2016 Respiratory No cough 09/28/2016 Respiratory No chest congestion 2016 Respiratory No dyspnea 09/28/2016 Gastrointestinal No abdominal pain 2016 Gastrointestinal No constipation 2016 Gastrointestinal diarrhea 09/28/2016 Gastrointestinal No vomiting 09/28/2016 Gastrointestinal No nausea 09/28/2016 Gastrointestinal No melena 09/28/2016 Musculoskeletal neck pain 09/28/2016 Musculoskeletal No joint complaint 2016 Dermatologic No rash 09/28/2016 Neurologic No alteration of consciousness 09/28/2016 Neurologic No mental status change 2016 Neurologic headache 09/28/2016 Constitutional No recent illness 2016 Constitutional No fever 07/06/2016 Eyes No eye erythema 07/06/2016 Ears/Nose/Throat/Neck No nasal allergies 07/06/2016 Ears/Nose/Throat/Neck No nasal discharge 07/06/2016 Cardiovascular No chest pain/pressure Ears/Nose/Throat/Neck headache 2016 Respiratory No dyspnea 07/06/2016 Gastrointestinal No abdominal pain 2016 Dermatologic No rash 07/06/2016 Neurologic No alteration of consciousness 07/06/2016 Neurologic No mental status change 2016 Constitutional No recent illness 2016 Constitutional No chills 06/01/2016 Constitutional No fatigue 06/01/2016 Constitutional No fever 06/01/2016 Constitutional No insomnia 06/01/2016 Constitutional No malaise 06/01/2016 Eyes No blindness 06/01/2016 Eyes No vision change 06/01/2016 Ears/Nose/Throat/Neck No dental pain Ears/Nose/Throat/Neck No dizziness 2016 Ears/Nose/Throat/Neck No dysphagia 2016 Ears/Nose/Throat/Neck No headache 2016 Ears/Nose/Throat/Neck No hearing loss Ears/Nose/Throat/Neck No nasal allergies 06/01/2016 Ears/Nose/Throat/Neck No sore throat Ears/Nose/Throat/Neck No postnasal drip 06/01/2016 Ears/Nose/Throat/Neck No sinus congestion 06/01/2016 Cardiovascular No chest pain/pressure Cardiovascular No dyspnea 06/01/2016 Cardiovascular No edema 06/01/2016 Cardiovascular No exercise intolerance Cardiovascular No fatigue 06/01/2016 Cardiovascular No near-syncope/dizziness 06/01/2016 Respiratory No chest tightness 2016 Respiratory No cough 06/01/2016 Respiratory No dyspnea 06/01/2016 Respiratory No pedal edema 06/01/2016 Gastrointestinal No abdominal pain 2016 Gastrointestinal No constipation 2016 Gastrointestinal No diarrhea 06/01/2016 Gastrointestinal No gastroesophageal reflux 06/01/2016 Gastrointestinal No nausea 06/01/2016 Gastrointestinal No vomiting 06/01/2016 Genitourinary/Nephrology No dysuria 06/01 Genitourinary/Nephrology No nocturia Genitourinary/Nephrology No urinary incontinence 06/01/2016 Musculoskeletal stiffness 06/01/2016 Musculoskeletal No swelling 06/01/2016 Musculoskeletal arthralgia(s) 06/01/2016 Musculoskeletal No muscle weakness 2016 Musculoskeletal No myalgias 06/01/2016 Dermatologic No rash 06/01/2016 Dermatologic No sores 06/01/2016 Dermatologic No scar 06/01/2016 Neurologic No dizziness 06/01/2016 Neurologic No headache 06/01/2016 Neurologic No neck pain 06/01/2016 Neurologic No syncope 06/01/2016 Psychiatric No anxiety 06/01/2016 Psychiatric No depression 06/01/2016 Constitutional No recent illness 2015 Constitutional No chills 02/27/2016 Constitutional fatigue 02/27/2016 Constitutional No fever 02/27/2016 Eyes No eye erythema 02/27/2016 Eyes No vision change 02/27/2016 Ears/Nose/Throat/Neck nasal allergies 01/2016 Ears/Nose/Throat/Neck postnasal drip 01/2016 Ears/Nose/Throat/Neck sinus congestion Cardiovascular No chest pain/pressure 01/2016 Cardiovascular No dyspnea 02/27/2016 Respiratory No dyspnea 02/27/2016 Gastrointestinal No abdominal pain 2015 Musculoskeletal stiffness 02/27/2016 Musculoskeletal No swelling 02/27/2016 Musculoskeletal arthralgia(s) 02/27/2016 Musculoskeletal No muscle weakness 2015 Musculoskeletal No myalgias 02/27/2016 Dermatologic No rash 02/27/2016 Dermatologic No sores 02/27/2016 Ears/Nose/Throat/Neck nasal discharge 01/2016 Respiratory No chest congestion 2015 Gastrointestinal No nausea 02/27/2016 Gastrointestinal No vomiting 02/27/2016 Neurologic No alteration of consciousness 02/27/2016 Neurologic No mental status change 2015 Neurologic headache 02/27/2016 Constitutional No recent illness 2015 Constitutional No chills 09/10/2015 Constitutional No fatigue 09/10/2015 Constitutional No fever 09/10/2015 Constitutional No insomnia 09/10/2015 Constitutional No malaise 09/10/2015 Eyes No blindness 09/10/2015 Eyes No vision change 09/10/2015 Ears/Nose/Throat/Neck No dental pain Ears/Nose/Throat/Neck No dizziness 2015 Ears/Nose/Throat/Neck No dysphagia 2015 Ears/Nose/Throat/Neck No headache 2015 Ears/Nose/Throat/Neck No hearing loss Ears/Nose/Throat/Neck No nasal allergies 09/10/2015 Ears/Nose/Throat/Neck No sore throat Ears/Nose/Throat/Neck No postnasal drip 09/10/2015 Ears/Nose/Throat/Neck No sinus congestion 09/10/2015 Cardiovascular No chest pain/pressure Cardiovascular No dyspnea 09/10/2015 Cardiovascular No edema 09/10/2015 Cardiovascular No exercise intolerance Cardiovascular No fatigue 09/10/2015 Cardiovascular No near-syncope/dizziness 09/10/2015 Respiratory No chest tightness 2015 Respiratory No cough 09/10/2015 Respiratory No dyspnea 09/10/2015 Respiratory No pedal edema 09/10/2015 Gastrointestinal No abdominal pain 2015 Gastrointestinal No constipation 2015 Gastrointestinal No diarrhea 09/10/2015 Gastrointestinal No gastroesophageal reflux 09/10/2015 Gastrointestinal No nausea 09/10/2015 Gastrointestinal No vomiting 09/10/2015 Genitourinary/Nephrology No dysuria 09/09 Genitourinary/Nephrology No nocturia Genitourinary/Nephrology No urinary incontinence 09/10/2015 Musculoskeletal stiffness 09/10/2015 Musculoskeletal No swelling 09/10/2015 Musculoskeletal arthralgia(s) 09/10/2015 Musculoskeletal No muscle weakness 2015 Musculoskeletal No myalgias 09/10/2015 Dermatologic No rash 09/10/2015 Dermatologic No sores 09/10/2015 Dermatologic No scar 09/10/2015 Neurologic No dizziness 09/10/2015 Neurologic No headache 09/10/2015 Neurologic No neck pain 09/10/2015 Neurologic No syncope 09/10/2015 Psychiatric No anxiety 09/10/2015 Psychiatric No depression 09/10/2015 Constitutional No recent illness 2015 Constitutional No chills 05/14/2015 Constitutional No fatigue 05/14/2015 Constitutional No fever 05/14/2015 Constitutional No insomnia 05/14/2015 Constitutional No malaise 05/14/2015 Eyes No blindness 05/14/2015 Eyes No vision change 05/14/2015 Ears/Nose/Throat/Neck No dental pain Ears/Nose/Throat/Neck No dizziness 2015 Ears/Nose/Throat/Neck No dysphagia 2015 Ears/Nose/Throat/Neck No headache 2015 Ears/Nose/Throat/Neck No hearing loss Ears/Nose/Throat/Neck No nasal allergies 05/14/2015 Ears/Nose/Throat/Neck No sore throat Ears/Nose/Throat/Neck No postnasal drip 05/14/2015 Ears/Nose/Throat/Neck No sinus congestion 05/14/2015 Cardiovascular No chest pain/pressure Cardiovascular No dyspnea 05/14/2015 Cardiovascular No edema 05/14/2015 Cardiovascular No exercise intolerance Cardiovascular No fatigue 05/14/2015 Cardiovascular No near-syncope/dizziness 05/14/2015 Respiratory No chest tightness 2015 Respiratory No cough 05/14/2015 Respiratory No dyspnea 05/14/2015 Respiratory No pedal edema 05/14/2015 Gastrointestinal No abdominal pain 2015 Gastrointestinal No constipation 2015 Gastrointestinal No diarrhea 05/14/2015 Gastrointestinal No gastroesophageal reflux 05/14/2015 Gastrointestinal No nausea 05/14/2015 Gastrointestinal No vomiting 05/14/2015 Genitourinary/Nephrology No dysuria 05/14 Genitourinary/Nephrology No nocturia Genitourinary/Nephrology No urinary incontinence 05/14/2015 Musculoskeletal stiffness 05/14/2015 Musculoskeletal No swelling 05/14/2015 Musculoskeletal arthralgia(s) 05/14/2015 Musculoskeletal No muscle weakness 2015 Musculoskeletal No myalgias 05/14/2015 Dermatologic No rash 05/14/2015 Dermatologic No sores 05/14/2015 Dermatologic No scar 05/14/2015 Neurologic No dizziness 05/14/2015 Neurologic No headache 05/14/2015 Neurologic No neck pain 05/14/2015 Neurologic No syncope 05/14/2015 Psychiatric No anxiety 05/14/2015 Psychiatric No depression 05/14/2015 Constitutional No recent illness 2014 Constitutional No chills 02/11/2015 Constitutional No fatigue 02/11/2015 Constitutional No fever 02/11/2015 Constitutional No insomnia 02/11/2015 Constitutional No malaise 02/11/2015 Eyes No blindness 02/11/2015 Eyes No vision change 02/11/2015 Ears/Nose/Throat/Neck No dental pain Ears/Nose/Throat/Neck No dizziness 2014 Ears/Nose/Throat/Neck No dysphagia 2014 Ears/Nose/Throat/Neck No headache 2014 Ears/Nose/Throat/Neck No hearing loss Ears/Nose/Throat/Neck No nasal allergies 02/11/2015 Ears/Nose/Throat/Neck No sore throat Ears/Nose/Throat/Neck No postnasal drip 02/11/2015 Ears/Nose/Throat/Neck No sinus congestion 02/11/2015 Cardiovascular No chest pain/pressure Cardiovascular No dyspnea 02/11/2015 Cardiovascular No edema 02/11/2015 Cardiovascular No exercise intolerance Cardiovascular No fatigue 02/11/2015 Cardiovascular No near-syncope/dizziness 02/11/2015 Respiratory No chest tightness 2014 Respiratory No cough 02/11/2015 Respiratory No dyspnea 02/11/2015 Respiratory No pedal edema 02/11/2015 Gastrointestinal No abdominal pain 2014 Gastrointestinal No constipation 2014 Gastrointestinal No diarrhea 02/11/2015 Gastrointestinal No gastroesophageal reflux 02/11/2015 Gastrointestinal No nausea 02/11/2015 Gastrointestinal No vomiting 02/11/2015 Genitourinary/Nephrology No dysuria 02/11 Genitourinary/Nephrology No nocturia Genitourinary/Nephrology No urinary incontinence 02/11/2015 Musculoskeletal stiffness 02/11/2015 Musculoskeletal No swelling 02/11/2015 Musculoskeletal No muscle weakness 2014 Musculoskeletal No myalgias 02/11/2015 Dermatologic No rash 02/11/2015 Dermatologic No sores 02/11/2015 Dermatologic No scar 02/11/2015 Neurologic No dizziness 02/11/2015 Neurologic No headache 02/11/2015 Neurologic No neck pain 02/11/2015 Neurologic No syncope 02/11/2015 Psychiatric No anxiety 02/11/2015 Psychiatric No depression 02/11/2015 Musculoskeletal arthralgia(s) 02/11/2015 Physical Exam Exam Name System Name Item Name Status Result Effective Dates Notes Full Exam - General 1994 Constitutional general appearance Overall: well developed 11/18/2017 None Full Exam - General 1994 Constitutional general appearance Overall: in no acute distress 11/18/2017 None Full Exam - General 1994 Constitutional general appearance Overall: well nourished 11/18/2017 None Full Exam - General 1994 Eyes conjunctiva /eyelids Overall: conjunctiva clear 11/18/2017 None Full Exam - General 1994 Eyes conjunctiva /eyelids Overall: cornea clear 11/18/2017 None Full Exam - General 1994 Eyes conjunctiva /eyelids Overall: eyelids normal 11/18/2017 None Full Exam - General 1994 Ears/Nose/Throat lips/teeth/gingiva Overall: benign lips 11/18/2017 None Full Exam - General 1994 Ears/Nose/Throat oral cavity/pharynx/larynx Overall: oral mucosa clear 11/18/2017 None Full Exam - General 1994 Respiratory respiratory effort/rhythm Overall: no retractions 11/18/2017 None Full Exam - General 1994 Respiratory respiratory effort/rhythm Overall: normal rate 11/18/2017 None Full Exam - General 1994 Respiratory auscultation Overall: breath sounds clear bilaterally 11/18/2017 None Full Exam - General 1994 Cardiovascular auscultation of heart Overall: normal heart sounds 11/18/2017 None Full Exam - General 1994 Cardiovascular auscultation of heart Overall: regular rate 11/18/2017 None Full Exam - General 1994 Abdomen abdominal exam Overall: normal bowel sounds 11/18/2017 None Full Exam - General 1994 Abdomen abdominal exam Suprapubic: tender to palpation 11/18/2017 None Full Exam - General 1994 Abdomen abdominal exam Suprapubic: dull pain 11/18/2017 None Full Exam - General 1994 Abdomen abdominal exam Suprapubic: no guarding 11/18/2017 None Full Exam - General 1994 Abdomen abdominal exam Suprapubic: no rebound tenderness 11/18/2017 None Full Exam - General 1994 Abdomen abdominal exam Suprapubic: soft 11/18/2017 None Full Exam - General 1994 Musculoskeletal head and neck Overall: head atraumatic 11/18/2017 None Full Exam - General 1994 Neurologic cranial nerves Overall: crainial nerves 2 - 12 grossly intact 11/18/2017 None Full Exam - General 1994 Psychiatric orientation/consciousness Overall: oriented to person, place and time 11/18/2017 None Full Exam - General 1994 Psychiatric mood and affect Overall: normal mood and affect 11/18/2017 None Full Exam - General 1994 Psychiatric appearance Overall: well-groomed, good eye contact 11/18/2017 None Full Exam - ENT Constitutional general appearance Overall: well nourished 11/03/2017 None Full Exam - ENT Constitutional general appearance Overall: well developed 11/03/2017 None Full Exam - ENT Constitutional general appearance Overall: in no acute distress 11/03/2017 None Full Exam - ENT Ears/Nose/Throat otoscopic exam Overall: external auditory canals normal 11/03/2017 None Full Exam - ENT Ears/Nose/Throat otoscopic exam Left tympanic membrane: air -fluid level 11/03/2017 None Full Exam - ENT Ears/Nose/Throat otoscopic exam Right tympanic membrane: air-fluid level 11/03/2017 None Full Exam - ENT Ears/Nose/Throat external ear and nose Overall: normal mastoids 11/03/2017 None Full Exam - ENT Ears/Nose/Throat external ear and nose Overall: normal appearance 11/03/2017 None Full Exam - ENT Ears/Nose/Throat external ear and nose Overall: no masses 11/03/2017 None Full Exam - ENT Ears/Nose/Throat lips/ teeth/gingiva Overall: benign lips 11/03/2017 None Full Exam - ENT Ears/Nose/Throat oropharynx Overall: oral mucosa clear 11/03/2017 None Full Exam - ENT Ears/Nose/Throat oropharynx Posterior Pharynx: clear post nasal drainage 11/03/2017 None Full Exam - ENT Respiratory auscultation Overall: breath sounds clear bilaterally 11/03/2017 None Full Exam - ENT Respiratory inspection Overall: normal rate None Full Exam - ENT Respiratory inspection Overall: no retractions 11/03/2017 None Full Exam - ENT Cardiovascular auscultation of heart Overall: regular rate 11/03/2017 None Full Exam - ENT Cardiovascular auscultation of heart Overall: normal heart sounds 11/03/2017 None Full Exam - ENT Lymphatic palpation of lymph nodes Overall: posterior cervical chain benign 11/03/2017 None Full Exam - ENT Lymphatic palpation of lymph nodes Overall: anterior cervical chain benign 11/03/2017 None Full Exam - ENT Musculoskeletal gait and station Overall: normal gait 11/03/2017 None Full Exam - ENT Musculoskeletal gait and station Overall: normal station 11/03/2017 None Full Exam - ENT Musculoskeletal head and neck Overall: head atraumatic 11/03/2017 None Full Exam - ENT Neurologic mood and affect Overall: normal mood 11/03/2017 None Full Exam - ENT Neurologic mood and affect Overall: normal affect 11/03/2017 None Full Exam - ENT Neurologic orientation Overall: oriented to person, place and time 11/03/2017 None Full Exam - General 1994 Constitutional general appearance Overall: well developed 09/22/2017 None Full Exam - General 1994 Constitutional general appearance Overall: in no acute distress 09/22/2017 None Full Exam - General 1994 Constitutional general appearance Overall: well nourished 09/22/2017 None Full Exam - General 1994 Eyes conjunctiva /eyelids Overall: eyelids normal 09/22/2017 None Full Exam - General 1994 Eyes conjunctiva /eyelids Overall: cornea clear 09/22/2017 None Full Exam - General 1994 Eyes conjunctiva /eyelids Overall: conjunctiva clear 09/22/2017 None Full Exam - General 1994 Eyes pupils and irises Overall: pupils equal, round, reactive to light and accomodation 09/22/2017 None Full Exam - General 1994 Ears/Nose/Throat otoscopic exam Overall: tympanic membranes clear 09/22/2017 None Full Exam - General 1994 Ears/Nose/Throat otoscopic exam Overall: external auditory canals clear 09/22/2017 None Full Exam - General 1994 Ears/Nose/Throat lips/teeth/gingiva Overall: benign lips 09/22/2017 None Full Exam - General 1994 Ears/Nose/Throat oral cavity/pharynx/larynx Overall: oral mucosa clear 09/22/2017 None Full Exam - General 1994 Ears/Nose/Throat oral cavity/pharynx/larynx Overall: oropharyngeal mucosa clear 09/22/2017 None Full Exam - General 1994 Respiratory respiratory effort/rhythm Overall: normal rate 09/22/2017 None Full Exam - General 1994 Respiratory respiratory effort/rhythm Overall: no retractions 09/22/2017 None Full Exam - General 1994 Respiratory auscultation Overall: breath sounds clear bilaterally 09/22/2017 None Full Exam - General 1994 Respiratory auscultation Diffuse: diminished 09/22/2017 None Full Exam - General 1994 Cardiovascular auscultation of heart Overall: regular rate 09/22/2017 None Full Exam - General 1994 Cardiovascular auscultation of heart Overall: normal heart sounds 09/22/2017 None Full Exam - General 1994 Cardiovascular extremities Overall: no clubbing 09/22/2017 None Full Exam - General 1994 Abdomen abdominal exam Overall: normal bowel sounds 09/22/2017 None Full Exam - General 1994 Musculoskeletal head and neck Overall: head atraumatic 09/22/2017 None Full Exam - General 1994 Musculoskeletal gait and station Overall: normal station 09/22/2017 None Full Exam - General 1994 Musculoskeletal gait and station Overall: normal gait 09/22/2017 None Full Exam - General 1994 Neurologic cranial nerves Overall: crainial nerves 2 - 12 grossly intact 09/22/2017 None Full Exam - General 1994 Psychiatric orientation/consciousness Overall: oriented to person, place and time 09/22/2017 None Full Exam - General 1994 Psychiatric mood and affect Overall: normal mood and affect 09/22/2017 None Full Exam - General 1994 Psychiatric appearance Overall: well-groomed, good eye contact 09/22/2017 None Full Exam - General 1994 Musculoskeletal lower extremity ROM - knee: pain with flexion 09/22/2017 None Full Exam - General 1994 Constitutional general appearance Overall: well developed 04/01/2017 None Full Exam - General 1994 Constitutional general appearance Overall: in no acute distress 04/01/2017 None Full Exam - General 1994 Constitutional general appearance Overall: well nourished 04/01/2017 None Full Exam - General 1994 Eyes conjunctiva /eyelids Overall: conjunctiva clear 04/01/2017 None Full Exam - General 1994 Eyes conjunctiva /eyelids Overall: eyelids normal 04/01/2017 None Full Exam - General 1994 Ears/Nose/Throat otoscopic exam Overall: external auditory canals clear 04/01/2017 None Full Exam - General 1994 Ears/Nose/Throat otoscopic exam Tympanic membrane: air- fluid level 04/01/2017 None Full Exam - General 1994 Ears/Nose/Throat lips/teeth/gingiva Overall: benign lips 04/01/2017 None Full Exam - General 1994 Ears/Nose/Throat oral cavity/pharynx/larynx Overall: oral mucosa clear 04/01/2017 None Full Exam - General 1994 Ears/Nose/Throat oral cavity/pharynx/larynx Overall: no masses 04/01/2017 None Full Exam - General 1994 Ears/Nose/Throat oral cavity/pharynx/larynx Posterior Pharynx: clear post nasal drainage 04/01/2017 None Full Exam - General 1994 Ears/Nose/Throat oral cavity/pharynx/larynx Oropharynx: erythema 04/01/2017 None Full Exam - General 1994 Respiratory respiratory effort/rhythm Overall: no retractions 04/01/2017 None Full Exam - General 1994 Respiratory respiratory effort/rhythm Overall: normal rate 04/01/2017 None Full Exam - General 1994 Cardiovascular extremities Overall: no clubbing 04/01/2017 None Full Exam - General 1994 Cardiovascular auscultation of heart Overall: regular rate 04/01/2017 None Full Exam - General 1994 Cardiovascular auscultation of heart Overall: normal heart sounds 04/01/2017 None Full Exam - General 1994 Lymphatic neck nodes Overall: anterior cervical chain benign 04/01/2017 None Full Exam - General 1994 Lymphatic neck nodes Overall: posterior cervical chain benign 04/01/2017 None Full Exam - General 1994 Musculoskeletal head and neck Overall: head atraumatic 04/01/2017 None Full Exam - General 1994 Integument inspection of skin Overall: few scattered moles, no gross abnormalities 04/01/2017 None Full Exam - General 1994 Neurologic cranial nerves Overall: crainial nerves 2 - 12 grossly intact 04/01/2017 None Full Exam - General 1994 Psychiatric orientation/consciousness Overall: oriented to person, place and time 04/01/2017 None Full Exam - General 1994 Psychiatric mood and affect Overall: normal mood and affect 04/01/2017 None Full Exam - General 1994 Respiratory auscultation Diffuse: bronchial 04/01/2017 None Full Exam - General 1994 Respiratory auscultation Diffuse: expiratory wheezes 04/01/2017 None Full Exam - General 1994 Constitutional general appearance Overall: well developed 03/25/2017 None Full Exam - General 1994 Constitutional general appearance Overall: in no acute distress 03/25/2017 None Full Exam - General 1994 Constitutional general appearance Overall: well nourished 03/25/2017 None Full Exam - General 1994 Eyes conjunctiva /eyelids Overall: conjunctiva clear 03/25/2017 None Full Exam - General 1994 Eyes conjunctiva /eyelids Overall: cornea clear 03/25/2017 None Full Exam - General 1994 Eyes conjunctiva /eyelids Overall: eyelids normal 03/25/2017 None Full Exam - General 1994 Ears/Nose/Throat otoscopic exam Overall: external auditory canals clear 03/25/2017 None Full Exam - General 1994 Ears/Nose/Throat otoscopic exam Tympanic membrane: retracted 03/25/2017 None Full Exam - General 1994 Ears/Nose/Throat lips/teeth/gingiva Overall: benign lips 03/25/2017 None Full Exam - General 1994 Ears/Nose/Throat oral cavity/pharynx/larynx Overall: oral mucosa clear 03/25/2017 None Full Exam - General 1994 Ears/Nose/Throat oral cavity/pharynx/larynx Overall: oropharyngeal mucosa clear 03/25/2017 None Full Exam - General 1994 Respiratory auscultation Overall: breath sounds clear bilaterally 03/25/2017 None Full Exam - General 1994 Respiratory respiratory effort/rhythm Overall: no retractions 03/25/2017 None Full Exam - General 1994 Respiratory respiratory effort/rhythm Overall: normal rate 03/25/2017 None Full Exam - General 1994 Cardiovascular inspection of carotid pulses Overall: strong, bilaterally equal, no bruits 03/25/2017 None Full Exam - General 1994 Cardiovascular extremities Overall: no clubbing 03/25/2017 None Full Exam - General 1994 Cardiovascular auscultation of heart Overall: regular rate 03/25/2017 None Full Exam - General 1994 Cardiovascular auscultation of heart Overall: normal heart sounds 03/25/2017 None Full Exam - General 1994 Abdomen abdominal exam Overall: normal bowel sounds 03/25/2017 None Full Exam - General 1994 Lymphatic neck nodes Overall: anterior cervical chain benign 03/25/2017 None Full Exam - General 1994 Lymphatic neck nodes Overall: posterior cervical chain benign 03/25/2017 None Full Exam - General 1994 Musculoskeletal gait and station Overall: normal gait 03/25/2017 None Full Exam - General 1994 Musculoskeletal gait and station Overall: normal station 03/25/2017 None Full Exam - General 1994 Musculoskeletal head and neck Overall: head atraumatic 03/25/2017 None Full Exam - General 1994 Integument inspection of skin Overall: no rash, lesions 03/25/2017 None Full Exam - General 1994 Neurologic cranial nerves Overall: crainial nerves 2 - 12 grossly intact 03/25/2017 None Full Exam - General 1994 Psychiatric orientation/consciousness Overall: oriented to person, place and time 03/25/2017 None Full Exam - General 1994 Psychiatric mood and affect Overall: normal mood and affect 03/25/2017 None Full Exam - General 1994 Psychiatric appearance Overall: well-groomed, good eye contact 03/25/2017 None Full Exam - General 1994 Constitutional general appearance Overall: well developed 12/23/2016 None Full Exam - General 1994 Constitutional general appearance Overall: in no acute distress 12/23/2016 None Full Exam - General 1994 Constitutional general appearance Overall: well nourished 12/23/2016 None Full Exam - General 1994 Eyes conjunctiva /eyelids Overall: conjunctiva clear 12/23/2016 None Full Exam - General 1995 Eyes conjunctiva /eyelids Overall: eyelids normal 12/23/2016 None Full Exam - General 1995 Ears/Nose/Throat lips/teeth/gingiva Overall: benign lips 12/23/2016 None Full Exam - General 1995 Respiratory respiratory effort/rhythm Overall: no retractions 12/23/2016 None Full Exam - General 1995 Respiratory respiratory effort/rhythm Overall: normal rate 12/23/2016 None Full Exam - General 1994 Musculoskeletal head and neck Overall: head atraumatic 12/23/2016 None Full Exam - General 1994 Neurologic cranial nerves Overall: crainial nerves 2 - 12 grossly intact 12/23/2016 None Full Exam - General 1994 Psychiatric orientation/consciousness Overall: oriented to person, place and time 12/23/2016 None Full Exam - General 1994 Psychiatric mood and affect Overall: normal mood and affect 12/23/2016 None Full Exam - General 1994 Psychiatric appearance Overall: well-groomed, good eye contact 12/23/2016 None Full Exam - General 1994 Constitutional general appearance Overall: well developed 12/22/2016 None Full Exam - General 1994 Constitutional general appearance Overall: in no acute distress 12/22/2016 None Full Exam - General 1994 Constitutional general appearance Overall: well nourished 12/22/2016 None Full Exam - General 1994 Eyes conjunctiva /eyelids Overall: conjunctiva clear 12/22/2016 None Full Exam - General 1994 Eyes conjunctiva /eyelids Overall: cornea clear 12/22/2016 None Full Exam - General 1994 Eyes conjunctiva /eyelids Overall: eyelids normal 12/22/2016 None Full Exam - General 1994 Ears/Nose/Throat otoscopic exam Overall: external auditory canals clear 12/22/2016 None Full Exam - General 1994 Ears/Nose/Throat lips/teeth/gingiva Overall: benign lips 12/22/2016 None Full Exam - General 1994 Ears/Nose/Throat oral cavity/pharynx/larynx Overall: oral mucosa clear 12/22/2016 None Full Exam - General 1995 Ears/Nose/Throat oral cavity/pharynx/larynx Overall: oropharyngeal mucosa clear 12/22/2016 None Full Exam - General 1994 Respiratory auscultation Overall: breath sounds clear bilaterally 12/22/2016 None Full Exam - General 1994 Respiratory respiratory effort/rhythm Overall: no retractions 12/22/2016 None Full Exam - General 1994 Respiratory respiratory effort/rhythm Overall: normal rate 12/22/2016 None Full Exam - General 1994 Cardiovascular inspection of carotid pulses Overall: strong, bilaterally equal, no bruits 12/22/2016 None Full Exam - General 1994 Cardiovascular extremities Overall: no clubbing 12/22/2016 None Full Exam - General 1994 Cardiovascular auscultation of heart Overall: regular rate 12/22/2016 None Full Exam - General 1994 Cardiovascular auscultation of heart Overall: normal heart sounds 12/22/2016 None Full Exam - General 1994 Abdomen abdominal exam Overall: normal bowel sounds 12/22/2016 None Full Exam - General 1994 Lymphatic neck nodes Overall: anterior cervical chain benign 12/22/2016 None Full Exam - General 1994 Lymphatic neck nodes Overall: posterior cervical chain benign 12/22/2016 None Full Exam - General 1994 Musculoskeletal gait and station Overall: normal gait 12/22/2016 None Full Exam - General 1994 Musculoskeletal gait and station Overall: normal station 12/22/2016 None Full Exam - General 1994 Musculoskeletal head and neck Overall: head atraumatic 12/22/2016 None Full Exam - General 1994 Integument inspection of skin Overall: no rash, lesions 12/22/2016 None Full Exam - General 1994 Neurologic cranial nerves Overall: crainial nerves 2 - 12 grossly intact 12/22/2016 None Full Exam - General 1994 Psychiatric orientation/consciousness Overall: oriented to person, place and time 12/22/2016 None Full Exam - General 1994 Psychiatric mood and affect Overall: normal mood and affect 12/22/2016 None Full Exam - General 1994 Psychiatric appearance Overall: well-groomed, good eye contact 12/22/2016 None Full Exam - General 1994 Ears/Nose/Throat otoscopic exam Tympanic membrane: retracted 12/22/2016 None Full Exam - General 1994 Constitutional general appearance Overall: well developed 12/08/2016 None Full Exam - General 1994 Constitutional general appearance Overall: in no acute distress 12/08/2016 None Full Exam - General 1994 Constitutional general appearance Overall: well nourished 12/08/2016 None Full Exam - General 1994 Eyes conjunctiva /eyelids Overall: conjunctiva clear 12/08/2016 None Full Exam - General 1994 Eyes conjunctiva /eyelids Overall: cornea clear 12/08/2016 None Full Exam - General 1994 Eyes conjunctiva /eyelids Overall: eyelids normal 12/08/2016 None Full Exam - General 1994 Ears/Nose/Throat otoscopic exam Overall: external auditory canals clear 12/08/2016 None Full Exam - General 1994 Ears/Nose/Throat otoscopic exam Overall: tympanic membranes clear 12/08/2016 None Full Exam - General 1994 Ears/Nose/Throat lips/teeth/gingiva Overall: benign lips 12/08/2016 None Full Exam - General 1994 Ears/Nose/Throat oral cavity/pharynx/larynx Overall: oral mucosa clear 12/08/2016 None Full Exam - General 1994 Ears/Nose/Throat oral cavity/pharynx/larynx Overall: oropharyngeal mucosa clear 12/08/2016 None Full Exam - General 1994 Respiratory auscultation Overall: breath sounds clear bilaterally 12/08/2016 None Full Exam - General 1994 Respiratory respiratory effort/rhythm Overall: no retractions 12/08/2016 None Full Exam - General 1994 Respiratory respiratory effort/rhythm Overall: normal rate 12/08/2016 None Full Exam - General 1994 Cardiovascular inspection of carotid pulses Overall: strong, bilaterally equal, no bruits 12/08/2016 None Full Exam - General 1994 Cardiovascular extremities Overall: no clubbing 12/08/2016 None Full Exam - General 1994 Cardiovascular auscultation of heart Overall: regular rate 12/08/2016 None Full Exam - General 1994 Cardiovascular auscultation of heart Overall: normal heart sounds 12/08/2016 None Full Exam - General 1994 Abdomen abdominal exam Overall: normal bowel sounds 12/08/2016 None Full Exam - General 1994 Lymphatic neck nodes Overall: anterior cervical chain benign 12/08/2016 None Full Exam - General 1994 Lymphatic neck nodes Overall: posterior cervical chain benign 12/08/2016 None Full Exam - General 1994 Musculoskeletal gait and station Overall: normal gait 12/08/2016 None Full Exam - General 1994 Musculoskeletal gait and station Overall: normal station 12/08/2016 None Full Exam - General 1994 Musculoskeletal head and neck Overall: head atraumatic 12/08/2016 None Full Exam - General 1994 Integument inspection of skin Overall: no rash, lesions 12/08/2016 None Full Exam - General 1994 Neurologic cranial nerves Overall: crainial nerves 2 - 12 grossly intact 12/08/2016 None Full Exam - General 1994 Psychiatric orientation/consciousness Overall: oriented to person, place and time 12/08/2016 None Full Exam - General 1994 Psychiatric mood and affect Overall: normal mood and affect 12/08/2016 None Full Exam - General 1994 Psychiatric appearance Overall: well-groomed, good eye contact 12/08/2016 None Full Exam - General 1994 Constitutional general appearance Development: well developed 11/30/2016 None Full Exam - General 1994 Constitutional general appearance Development: appears stated age 0811/30/2016 None Full Exam - General 1994 Constitutional general appearance Hygiene/Attention to Grooming: good hygiene 11/30/2016 None Full Exam - General 1994 Eyes conjunctiva /eyelids Overall: conjunctiva clear 11/30/2016 None Full Exam - General 1994 Eyes conjunctiva /eyelids Overall: cornea clear 11/30/2016 None Full Exam - General 1994 Eyes conjunctiva /eyelids Overall: eyelids normal 11/30/2016 None Full Exam - General 1994 Eyes pupils and irises Overall: pupils equal, round, reactive to light and accomodation 11/30/2016 None Full Exam - General 1994 Ears/Nose/Throat otoscopic exam Overall: external auditory canals clear 11/30/2016 None Full Exam - General 1994 Ears/Nose/Throat otoscopic exam Overall: tympanic membranes clear 11/30/2016 None Full Exam - General 1994 Ears/Nose/Throat lips/teeth/gingiva Overall: benign lips 11/30/2016 None Full Exam - General 1994 Ears/Nose/Throat lips/teeth/gingiva Overall: normal dentition 11/30/2016 None Full Exam - General 1994 Ears/Nose/Throat oral cavity/pharynx/larynx Overall: oral mucosa clear 11/30/2016 None Full Exam - General 1994 Ears/Nose/Throat oral cavity/pharynx/larynx Overall: oropharyngeal mucosa clear 11/30/2016 None Full Exam - General 1994 Ears/Nose/Throat oral cavity/pharynx/larynx Overall: hypopharynx benign 11/30/2016 None Full Exam - General 1994 Ears/Nose/Throat oral cavity/pharynx/larynx Overall: no masses 11/30/2016 None Full Exam - General 1994 Respiratory auscultation Overall: breath sounds clear bilaterally 11/30/2016 None Full Exam - General 1994 Respiratory respiratory effort/rhythm Overall: no retractions 11/30/2016 None Full Exam - General 1994 Respiratory respiratory effort/rhythm Overall: normal rate 11/30/2016 None Full Exam - General 1994 Cardiovascular extremities Overall: no clubbing 11/30/2016 None Full Exam - General 1994 Cardiovascular auscultation of heart Overall: regular rate 11/30/2016 None Full Exam - General 1994 Cardiovascular auscultation of heart Overall: normal heart sounds 11/30/2016 None Full Exam - General 1994 Musculoskeletal lower extremity Palpation - knee: crepitus 11/30/2016 None Full Exam - General 1994 Musculoskeletal spine, ribs and pelvis Overall: spine benign 11/30/2016 None Full Exam - General 1994 Musculoskeletal spine, ribs and pelvis Overall: sacroiliac joint benign 11/30/2016 None Full Exam - General 1994 Musculoskeletal spine, ribs and pelvis Overall: good posture 11/30/2016 None Full Exam - General 1994 Musculoskeletal head and neck Overall: head atraumatic 11/30/2016 None Full Exam - General 1994 Musculoskeletal head and neck Overall: cervical spine benign 11/30/2016 None Full Exam - General 1994 Integument inspection of skin Overall: few scattered moles, no gross abnormalities 11/30/2016 None Full Exam - General 1994 Neurologic deep tendon reflexes Overall: deep tendon reflexes intact 11/30/2016 None Full Exam - General 1994 Neurologic cranial nerves Overall: crainial nerves 2 - 12 grossly intact 11/30/2016 None Full Exam - General 1994 Psychiatric orientation/consciousness Overall: oriented to person, place and time 11/30/2016 None Full Exam - General 1994 Psychiatric mood and affect Overall: normal mood and affect 11/30/2016 None Full Exam - General 1994 Abdomen abdominal exam Overall: no tenderness 11/30/2016 None Full Exam - General 1994 Abdomen abdominal exam Overall: normal bowel sounds 11/30/2016 None Full Exam - General 1994 Constitutional general appearance Overall: well developed 09/28/2016 None Full Exam - General 1994 Constitutional general appearance Overall: in no acute distress 09/28/2016 None Full Exam - General 1994 Constitutional general appearance Overall: well nourished 09/28/2016 None Full Exam - General 1994 Eyes conjunctiva /eyelids Overall: conjunctiva clear 09/28/2016 None Full Exam - General 1994 Eyes conjunctiva /eyelids Overall: cornea clear 09/28/2016 None Full Exam - General 1994 Eyes conjunctiva /eyelids Overall: eyelids normal 09/28/2016 None Full Exam - General 1994 Ears/Nose/Throat otoscopic exam Overall: external auditory canals clear 09/28/2016 None Full Exam - General 1994 Ears/Nose/Throat otoscopic exam Overall: tympanic membranes clear 09/28/2016 None Full Exam - General 1994 Ears/Nose/Throat lips/teeth/gingiva Overall: benign lips 09/28/2016 None Full Exam - General 1994 Ears/Nose/Throat oral cavity/pharynx/larynx Overall: oral mucosa clear 09/28/2016 None Full Exam - General 1994 Ears/Nose/Throat oral cavity/pharynx/larynx Overall: oropharyngeal mucosa clear 09/28/2016 None Full Exam - General 1994 Respiratory respiratory effort/rhythm Overall: no retractions 09/28/2016 None Full Exam - General 1994 Respiratory respiratory effort/rhythm Overall: normal rate 09/28/2016 None Full Exam - General 1994 Respiratory auscultation Overall: breath sounds clear bilaterally 09/28/2016 None Full Exam - General 1994 Cardiovascular auscultation of heart Overall: regular rate 09/28/2016 None Full Exam - General 1994 Cardiovascular auscultation of heart Overall: normal heart sounds 09/28/2016 None Full Exam - General 1994 Abdomen abdominal exam Overall: normal bowel sounds 09/28/2016 None Full Exam - General 1994 Lymphatic neck nodes Overall: posterior cervical chain benign 09/28/2016 None Full Exam - General 1994 Lymphatic neck nodes Overall: anterior cervical chain benign 09/28/2016 None Full Exam - General 1994 Musculoskeletal head and neck Overall: head atraumatic 09/28/2016 None Full Exam - General 1994 Musculoskeletal gait and station Overall: normal gait 09/28/2016 None Full Exam - General 1994 Musculoskeletal gait and station Overall: normal station 09/28/2016 None Full Exam - General 1994 Integument inspection of skin Overall: no rash, lesions 09/28/2016 None Full Exam - General 1994 Neurologic cranial nerves Overall: crainial nerves 2 - 12 grossly intact 09/28/2016 None Full Exam - General 1994 Psychiatric orientation/consciousness Overall: oriented to person, place and time 09/28/2016 None Full Exam - General 1994 Psychiatric mood and affect Overall: normal mood and affect 09/28/2016 None Full Exam - General 1994 Psychiatric appearance Overall: well-groomed, good eye contact 09/28/2016 None Full Exam - General 1994 Cardiovascular extremities Overall: no clubbing 09/28/2016 None Full Exam - General 1994 Cardiovascular inspection of carotid pulses Overall: strong, bilaterally equal, no bruits 09/28/2016 None Full Exam - General 1994 Constitutional general appearance Overall: well developed 07/06/2016 None Full Exam - General 1994 Constitutional general appearance Overall: in no acute distress 07/06/2016 None Full Exam - General 1994 Constitutional general appearance Overall: well nourished 07/06/2016 None Full Exam - General 1994 Eyes conjunctiva /eyelids Overall: conjunctiva clear 07/06/2016 None Full Exam - General 1994 Eyes conjunctiva /eyelids Overall: eyelids normal 07/06/2016 None Full Exam - General 1994 Eyes pupils and irises Overall: pupils equal, round, reactive to light and accomodation 07/06/2016 None Full Exam - General 1994 Ears/Nose/Throat otoscopic exam Overall: external auditory canals clear 07/06/2016 None Full Exam - General 1994 Ears/Nose/Throat otoscopic exam Overall: tympanic membranes clear 07/06/2016 None Full Exam - General 1994 Ears/Nose/Throat lips/teeth/gingiva Overall: benign lips 07/06/2016 None Full Exam - General 1994 Ears/Nose/Throat oral cavity/pharynx/larynx Overall: oral mucosa clear 07/06/2016 None Full Exam - General 1994 Respiratory auscultation Overall: breath sounds clear bilaterally 07/06/2016 None Full Exam - General 1994 Respiratory respiratory effort/rhythm Overall: no retractions 07/06/2016 None Full Exam - General 1994 Respiratory respiratory effort/rhythm Overall: normal rate 07/06/2016 None Full Exam - General 1994 Cardiovascular auscultation of heart Overall: regular rate 07/06/2016 None Full Exam - General 1994 Cardiovascular auscultation of heart Overall: normal heart sounds 07/06/2016 None Full Exam - General 1994 Neurologic cranial nerves Overall: crainial nerves 2 - 12 grossly intact 07/06/2016 None Full Exam - General 1994 Psychiatric orientation/consciousness Overall: oriented to person, place and time 07/06/2016 None Full Exam - General 1994 Psychiatric mood and affect Overall: normal mood and affect 07/06/2016 None Full Exam - General 1994 Psychiatric appearance Overall: well-groomed, good eye contact 07/06/2016 None Full Exam - General 1994 Constitutional general appearance Development: well developed 06/01/2016 None Full Exam - General 1994 Constitutional general appearance Development: appears stated age 0206/01/2016 None Full Exam - General 1994 Constitutional general appearance Hygiene/Attention to Grooming: good hygiene 06/01/2016 None Full Exam - General 1994 Eyes conjunctiva /eyelids Overall: conjunctiva clear 06/01/2016 None Full Exam - General 1994 Eyes conjunctiva /eyelids Overall: cornea clear 06/01/2016 None Full Exam - General 1994 Eyes conjunctiva /eyelids Overall: eyelids normal 06/01/2016 None Full Exam - General 1994 Eyes pupils and irises Overall: pupils equal, round, reactive to light and accomodation 06/01/2016 None Full Exam - General 1994 Ears/Nose/Throat otoscopic exam Overall: external auditory canals clear 06/01/2016 None Full Exam - General 1994 Ears/Nose/Throat otoscopic exam Overall: tympanic membranes clear 06/01/2016 None Full Exam - General 1994 Ears/Nose/Throat lips/teeth/gingiva Overall: benign lips 06/01/2016 None Full Exam - General 1994 Ears/Nose/Throat lips/teeth/gingiva Overall: normal dentition 06/01/2016 None Full Exam - General 1994 Ears/Nose/Throat oral cavity/pharynx/larynx Overall: oral mucosa clear 06/01/2016 None Full Exam - General 1994 Ears/Nose/Throat oral cavity/pharynx/larynx Overall: oropharyngeal mucosa clear 06/01/2016 None Full Exam - General 1994 Ears/Nose/Throat oral cavity/pharynx/larynx Overall: hypopharynx benign 06/01/2016 None Full Exam - General 1994 Ears/Nose/Throat oral cavity/pharynx/larynx Overall: no masses 06/01/2016 None Full Exam - General 1994 Respiratory auscultation Overall: breath sounds clear bilaterally 06/01/2016 None Full Exam - General 1994 Respiratory respiratory effort/rhythm Overall: no retractions 06/01/2016 None Full Exam - General 1994 Respiratory respiratory effort/rhythm Overall: normal rate 06/01/2016 None Full Exam - General 1994 Cardiovascular extremities Overall: no clubbing 06/01/2016 None Full Exam - General 1994 Cardiovascular auscultation of heart Overall: regular rate 06/01/2016 None Full Exam - General 1994 Cardiovascular auscultation of heart Overall: normal heart sounds 06/01/2016 None Full Exam - General 1994 Musculoskeletal lower extremity Palpation - knee: crepitus 06/01/2016 None Full Exam - General 1994 Musculoskeletal spine, ribs and pelvis Overall: spine benign 06/01/2016 None Full Exam - General 1994 Musculoskeletal spine, ribs and pelvis Overall: sacroiliac joint benign 06/01/2016 None Full Exam - General 1994 Musculoskeletal spine, ribs and pelvis Overall: good posture 06/01/2016 None Full Exam - General 1994 Musculoskeletal head and neck Overall: head atraumatic 06/01/2016 None Full Exam - General 1994 Musculoskeletal head and neck Overall: cervical spine benign 06/01/2016 None Full Exam - General 1994 Integument inspection of skin Overall: few scattered moles, no gross abnormalities 06/01/2016 None Full Exam - General 1994 Neurologic deep tendon reflexes Overall: deep tendon reflexes intact 06/01/2016 None Full Exam - General 1994 Neurologic cranial nerves Overall: crainial nerves 2 - 12 grossly intact 06/01/2016 None Full Exam - General 1994 Psychiatric orientation/consciousness Overall: oriented to person, place and time 06/01/2016 None Full Exam - General 1994 Psychiatric mood and affect Overall: normal mood and affect 06/01/2016 None Full Exam - General 1994 Eyes conjunctiva /eyelids Overall: conjunctiva clear 02/27/2016 None Full Exam - General 1994 Eyes conjunctiva /eyelids Overall: eyelids normal 02/27/2016 None Full Exam - General 1994 Ears/Nose/Throat otoscopic exam Overall: external auditory canals clear 02/27/2016 None Full Exam - General 1994 Ears/Nose/Throat lips/teeth/gingiva Overall: benign lips 02/27/2016 None Full Exam - General 1994 Ears/Nose/Throat oral cavity/pharynx/larynx Overall: oral mucosa clear 02/27/2016 None Full Exam - General 1994 Ears/Nose/Throat oral cavity/pharynx/larynx Overall: no masses 02/27/2016 None Full Exam - General 1994 Respiratory auscultation Overall: breath sounds clear bilaterally 02/27/2016 None Full Exam - General 1994 Respiratory respiratory effort/rhythm Overall: no retractions 02/27/2016 None Full Exam - General 1994 Respiratory respiratory effort/rhythm Overall: normal rate 02/27/2016 None Full Exam - General 1994 Cardiovascular extremities Overall: no clubbing 02/27/2016 None Full Exam - General 1994 Cardiovascular auscultation of heart Overall: regular rate 02/27/2016 None Full Exam - General 1994 Cardiovascular auscultation of heart Overall: normal heart sounds 02/27/2016 None Full Exam - General 1994 Musculoskeletal head and neck Overall: head atraumatic 02/27/2016 None Full Exam - General 1994 Integument inspection of skin Overall: few scattered moles, no gross abnormalities 02/27/2016 None Full Exam - General 1994 Neurologic cranial nerves Overall: crainial nerves 2 - 12 grossly intact 02/27/2016 None Full Exam - General 1994 Psychiatric orientation/consciousness Overall: oriented to person, place and time 02/27/2016 None Full Exam - General 1994 Psychiatric mood and affect Overall: normal mood and affect 02/27/2016 None Full Exam - General 1994 Constitutional general appearance Overall: well developed 02/27/2016 None Full Exam - General 1994 Constitutional general appearance Overall: in no acute distress 02/27/2016 None Full Exam - General 1994 Constitutional general appearance Overall: well nourished 02/27/2016 None Full Exam - General 1994 Ears/Nose/Throat otoscopic exam Tympanic membrane: air- fluid level 02/27/2016 None Full Exam - General 1994 Ears/Nose/Throat oral cavity/pharynx/larynx Posterior Pharynx: clear post nasal drainage 02/27/2016 None Full Exam - General 1994 Ears/Nose/Throat oral cavity/pharynx/larynx Oropharynx: erythema 02/27/2016 None Full Exam - General 1994 Lymphatic neck nodes Overall: anterior cervical chain benign 02/27/2016 None Full Exam - General 1994 Lymphatic neck nodes Overall: posterior cervical chain benign 02/27/2016 None Full Exam - General 1994 Constitutional general appearance Development: well developed 09/10/2015 None Full Exam - General 1994 Constitutional general appearance Development: appears stated age 0509/10/2015 None Full Exam - General 1994 Constitutional general appearance Hygiene/Attention to Grooming: good hygiene 09/10/2015 None Full Exam - General 1994 Eyes conjunctiva /eyelids Overall: conjunctiva clear 09/10/2015 None Full Exam - General 1994 Eyes conjunctiva /eyelids Overall: cornea clear 09/10/2015 None Full Exam - General 1994 Eyes conjunctiva /eyelids Overall: eyelids normal 09/10/2015 None Full Exam - General 1994 Eyes pupils and irises Overall: pupils equal, round, reactive to light and accomodation 09/10/2015 None Full Exam - General 1994 Ears/Nose/Throat otoscopic exam Overall: external auditory canals clear 09/10/2015 None Full Exam - General 1994 Ears/Nose/Throat otoscopic exam Overall: tympanic membranes clear 09/10/2015 None Full Exam - General 1994 Ears/Nose/Throat lips/teeth/gingiva Overall: benign lips 09/10/2015 None Full Exam - General 1994 Ears/Nose/Throat lips/teeth/gingiva Overall: normal dentition 09/10/2015 None Full Exam - General 1994 Ears/Nose/Throat oral cavity/pharynx/larynx Overall: oral mucosa clear 09/10/2015 None Full Exam - General 1994 Ears/Nose/Throat oral cavity/pharynx/larynx Overall: oropharyngeal mucosa clear 09/10/2015 None Full Exam - General 1994 Ears/Nose/Throat oral cavity/pharynx/larynx Overall: hypopharynx benign 09/10/2015 None Full Exam - General 1994 Ears/Nose/Throat oral cavity/pharynx/larynx Overall: no masses 09/10/2015 None Full Exam - General 1994 Respiratory auscultation Overall: breath sounds clear bilaterally 09/10/2015 None Full Exam - General 1994 Respiratory respiratory effort/rhythm Overall: no retractions 09/10/2015 None Full Exam - General 1994 Respiratory respiratory effort/rhythm Overall: normal rate 09/10/2015 None Full Exam - General 1994 Cardiovascular extremities Overall: no clubbing 09/10/2015 None Full Exam - General 1994 Cardiovascular auscultation of heart Overall: regular rate 09/10/2015 None Full Exam - General 1994 Cardiovascular auscultation of heart Overall: normal heart sounds 09/10/2015 None Full Exam - General 1994 Musculoskeletal lower extremity Palpation - knee: crepitus 09/10/2015 None Full Exam - General 1994 Musculoskeletal spine, ribs and pelvis Overall: spine benign 09/10/2015 None Full Exam - General 1994 Musculoskeletal spine, ribs and pelvis Overall: sacroiliac joint benign 09/10/2015 None Full Exam - General 1994 Musculoskeletal spine, ribs and pelvis Overall: good posture 09/10/2015 None Full Exam - General 1994 Musculoskeletal head and neck Overall: head atraumatic 09/10/2015 None Full Exam - General 1994 Musculoskeletal head and neck Overall: cervical spine benign 09/10/2015 None Full Exam - General 1994 Integument inspection of skin Overall: few scattered moles, no gross abnormalities 09/10/2015 None Full Exam - General 1994 Neurologic deep tendon reflexes Overall: deep tendon reflexes intact 09/10/2015 None Full Exam - General 1994 Neurologic cranial nerves Overall: crainial nerves 2 - 12 grossly intact 09/10/2015 None Full Exam - General 1994 Psychiatric orientation/consciousness Overall: oriented to person, place and time 09/10/2015 None Full Exam - General 1994 Psychiatric mood and affect Overall: normal mood and affect 09/10/2015 None Full Exam - General 1994 Constitutional general appearance Development: well developed 05/14/2015 None Full Exam - General 1994 Constitutional general appearance Development: appears stated age 0105/14/2015 None Full Exam - General 1994 Constitutional general appearance Hygiene/Attention to Grooming: good hygiene 05/14/2015 None Full Exam - General 1994 Eyes conjunctiva /eyelids Overall: conjunctiva clear 05/14/2015 None Full Exam - General 1994 Eyes conjunctiva /eyelids Overall: cornea clear 05/14/2015 None Full Exam - General 1994 Eyes conjunctiva /eyelids Overall: eyelids normal 05/14/2015 None Full Exam - General 1994 Eyes pupils and irises Overall: pupils equal, round, reactive to light and accomodation 05/14/2015 None Full Exam - General 1994 Ears/Nose/Throat otoscopic exam Overall: external auditory canals clear 05/14/2015 None Full Exam - General 1994 Ears/Nose/Throat otoscopic exam Overall: tympanic membranes clear 05/14/2015 None Full Exam - General 1994 Ears/Nose/Throat lips/teeth/gingiva Overall: benign lips 05/14/2015 None Full Exam - General 1994 Ears/Nose/Throat lips/teeth/gingiva Overall: normal dentition 05/14/2015 None Full Exam - General 1994 Ears/Nose/Throat oral cavity/pharynx/larynx Overall: oral mucosa clear 05/14/2015 None Full Exam - General 1994 Ears/Nose/Throat oral cavity/pharynx/larynx Overall: oropharyngeal mucosa clear 05/14/2015 None Full Exam - General 1994 Ears/Nose/Throat oral cavity/pharynx/larynx Overall: hypopharynx benign 05/14/2015 None Full Exam - General 1994 Ears/Nose/Throat oral cavity/pharynx/larynx Overall: no masses 05/14/2015 None Full Exam - General 1994 Respiratory auscultation Overall: breath sounds clear bilaterally 05/14/2015 None Full Exam - General 1994 Respiratory respiratory effort/rhythm Overall: no retractions 05/14/2015 None Full Exam - General 1994 Respiratory respiratory effort/rhythm Overall: normal rate 05/14/2015 None Full Exam - General 1994 Cardiovascular extremities Overall: no clubbing 05/14/2015 None Full Exam - General 1994 Cardiovascular auscultation of heart Overall: regular rate 05/14/2015 None Full Exam - General 1994 Cardiovascular auscultation of heart Overall: normal heart sounds 05/14/2015 None Full Exam - General 1994 Musculoskeletal lower extremity Palpation - knee: crepitus 05/14/2015 None Full Exam - General 1994 Musculoskeletal spine, ribs and pelvis Overall: spine benign 05/14/2015 None Full Exam - General 1994 Musculoskeletal spine, ribs and pelvis Overall: sacroiliac joint benign 05/14/2015 None Full Exam - General 1994 Musculoskeletal spine, ribs and pelvis Overall: good posture 05/14/2015 None Full Exam - General 1994 Musculoskeletal head and neck Overall: head atraumatic 05/14/2015 None Full Exam - General 1994 Musculoskeletal head and neck Overall: cervical spine benign 05/14/2015 None Full Exam - General 1994 Integument inspection of skin Overall: few scattered moles, no gross abnormalities 05/14/2015 None Full Exam - General 1994 Neurologic deep tendon reflexes Overall: deep tendon reflexes intact 05/14/2015 None Full Exam - General 1994 Neurologic cranial nerves Overall: crainial nerves 2 - 12 grossly intact 05/14/2015 None Full Exam - General 1994 Psychiatric orientation/consciousness Overall: oriented to person, place and time 05/14/2015 None Full Exam - General 1994 Psychiatric mood and affect Overall: normal mood and affect 05/14/2015 None Full Exam - General 1994 Constitutional general appearance Development: well developed 02/11/2015 None Full Exam - General 1994 Constitutional general appearance Development: appears stated age 1002/11/2015 None Full Exam - General 1994 Constitutional general appearance Hygiene/Attention to Grooming: good hygiene 02/11/2015 None Full Exam - General 1994 Eyes conjunctiva /eyelids Overall: conjunctiva clear 02/11/2015 None Full Exam - General 1994 Eyes conjunctiva /eyelids Overall: cornea clear 02/11/2015 None Full Exam - General 1994 Eyes conjunctiva /eyelids Overall: eyelids normal 02/11/2015 None Full Exam - General 1994 Eyes pupils and irises Overall: pupils equal, round, reactive to light and accomodation 02/11/2015 None Full Exam - General 1994 Ears/Nose/Throat otoscopic exam Overall: external auditory canals clear 02/11/2015 None Full Exam - General 1994 Ears/Nose/Throat otoscopic exam Overall: tympanic membranes clear 02/11/2015 None Full Exam - General 1994 Ears/Nose/Throat lips/teeth/gingiva Overall: benign lips 02/11/2015 None Full Exam - General 1994 Ears/Nose/Throat lips/teeth/gingiva Overall: normal dentition 02/11/2015 None Full Exam - General 1994 Ears/Nose/Throat oral cavity/pharynx/larynx Overall: oral mucosa clear 02/11/2015 None Full Exam - General 1994 Ears/Nose/Throat oral cavity/pharynx/larynx Overall: oropharyngeal mucosa clear 02/11/2015 None Full Exam - General 1994 Ears/Nose/Throat oral cavity/pharynx/larynx Overall: hypopharynx benign 02/11/2015 None Full Exam - General 1994 Ears/Nose/Throat oral cavity/pharynx/larynx Overall: no masses 02/11/2015 None Full Exam - General 1994 Respiratory auscultation Overall: breath sounds clear bilaterally 02/11/2015 None Full Exam - General 1994 Respiratory respiratory effort/rhythm Overall: no retractions 02/11/2015 None Full Exam - General 1994 Respiratory respiratory effort/rhythm Overall: normal rate 02/11/2015 None Full Exam - General 1994 Cardiovascular extremities Overall: no clubbing 02/11/2015 None Full Exam - General 1994 Cardiovascular auscultation of heart Overall: regular rate 02/11/2015 None Full Exam - General 1994 Cardiovascular auscultation of heart Overall: normal heart sounds 02/11/2015 None Full Exam - General 1994 Abdomen abdominal exam Overall: no tenderness 02/11/2015 None Full Exam - General 1994 Abdomen abdominal exam Overall: normal bowel sounds 02/11/2015 None Full Exam - General 1994 Lymphatic neck nodes Overall: anterior cervical chain benign 02/11/2015 None Full Exam - General 1994 Lymphatic neck nodes Overall: posterior cervical chain benign 02/11/2015 None Full Exam - General 1994 Musculoskeletal spine, ribs and pelvis Overall: spine benign 02/11/2015 None Full Exam - General 1994 Musculoskeletal spine, ribs and pelvis Overall: sacroiliac joint benign 02/11/2015 None Full Exam - General 1994 Musculoskeletal spine, ribs and pelvis Overall: good posture 02/11/2015 None Full Exam - General 1994 Musculoskeletal head and neck Overall: head atraumatic 02/11/2015 None Full Exam - General 1994 Musculoskeletal head and neck Overall: cervical spine benign 02/11/2015 None Full Exam - General 1994 Integument inspection of skin Overall: few scattered moles, no gross abnormalities 02/11/2015 None Full Exam - General 1994 Neurologic deep tendon reflexes Overall: deep tendon reflexes intact 02/11/2015 None Full Exam - General 1994 Neurologic cranial nerves Overall: crainial nerves 2 - 12 grossly intact 02/11/2015 None Full Exam - General 1994 Psychiatric orientation/consciousness Overall: oriented to person, place and time 02/11/2015 None Full Exam - General 1994 Psychiatric mood and affect Overall: normal mood and affect 02/11/2015 None Full Exam - General 1994 Musculoskeletal lower extremity Palpation - knee: crepitus 02/11/2015 None Procedures Procedure Codes Date THER/PROPH/DIAG INJ SC/IM CPT-4: 32861 11/18/2017 ROCEPHIN, PER 250 MG CPT-4: J0696 11/18/2017 PRESCRIP TRANSMIT VIA ERX SY CPT-4: G8553 04/01/2017 TRIAMCINOLONE ACET INJ NOS CPT-4: J3301 03/25/2017 PPPS, SUBSEQ VISIT CPT -4: G0439 12/23/2016 THER/PROPH/DIAG INJ SC/IM CPT-4: 60758 12/08/2016 TRIAMCINOLONE ACET INJ NOS CPT-4: J3301 12/08/2016 PRESCRIP TRANSMIT VIA ERX SY CPT-4: G8553 12/08/2016 PRESCRIP TRANSMIT VIA ERX SY CPT-4: G8553 11/30/2016 URINALYSIS NONAUTO W/O SCOPE CPT-4: 87624 07/08/2016 PRESCRIP TRANSMIT VIA ERX SY CPT-4: G8553 06/01/2016 PRESCRIP TRANSMIT VIA ERX SY CPT-4: G8553 02/27/2016 THER/PROPH/DIAG INJ SC/IM CPT-4: 79160 03/01/2015 ROCEPHIN, PER 250 MG CPT-4: J0696 03/01/2015 THER/PROPH/DIAG INJ SC/IM CPT-4: 73979 02/28/2015 ROCEPHIN, PER 250 MG CPT-4: J0696 02/28/2015 THER/PROPH/DIAG INJ SC/IM CPT-4: 19290 02/27/2015 ROCEPHIN, PER 250 MG CPT-4: J0696 02/27/2015 THER/PROPH/DIAG INJ SC/IM CPT-4: 22661 02/26/2015 ROCEPHIN, PER 250 MG CPT-4: J0696 02/26/2015 THER/PROPH/DIAG INJ SC/IM CPT-4: 45850 02/25/2015 ROCEPHIN, PER 250 MG CPT-4: J0696 02/25/2015 URINALYSIS NONAUTO W/O SCOPE CPT-4: 99638 02/21/2015 Vital Signs Date Vital 11/18/2017 Blood Pressure 1: 164/74 Code : 8480-6 BMI: 27.6 Code : 20918-9 Heart Rate 1 : 70 bpm Height: 5'3" SpO2: 96% Weight: 156 lbs 11/03/2017 Blood Pressure 1: 118/72 Code : 8480-6 BMI: 27.6 Code : 29676-6 Heart Rate 1 : 82 bpm Height: 5'3" SpO2: 96% Weight: 156 lbs 09/22/2017 Blood Pressure 1: 136/68 Code : 8480-6 BMI: 27.6 Code : 01581-6 Heart Rate 1 : 70 bpm Height: 5'3" SpO2: 97% Weight: 156 lbs 04/01/2017 Blood Pressure 1: 144/82 Code : 8480-6 Heart Rate 1: 68 bpm Height: 5'3" SpO2: 97% Weight: 03/25/2017 Blood Pressure 1: 116/70 Code : 8480-6 BMI: 26.7 Code : 31770-6 Heart Rate 1 : 67 bpm Height: 5'3" SpO2: 98% Weight: 151 lbs 12/23/2016 BMI: 26.7 Code: 99187-5 Height: 5'3" Weight: 151 lbs 12/22/2016 Blood Pressure 1: 142/60 Code : 8480-6 BMI: 26.7 Code : 46399-6 Heart Rate 1 : 67 bpm Height: 5'3" SpO2: 98% Weight: 151 lbs 12/08/2016 Blood Pressure 1: 140/72 Code : 8480-6 Heart Rate 1: 72 bpm Height: 5'3" SpO2: 97% Weight: 11/30/2016 Blood Pressure 1: 128/80 Code : 8480-6 BMI: 26.7 Code : 75750-7 Heart Rate 1 : 63 bpm Height: 5'3" SpO2: 96% Weight: 151 lbs 09/28/2016 Blood Pressure 1: 130/80 Code : 8480-6 BMI: 27.1 Code : 30890-8 Heart Rate 1 : 80 bpm Height: 5'3" SpO2: 97% Weight: 153 lbs 07/06/2016 Blood Pressure 1: 162/72 Code : 8480-6 BMI: 27.6 Code : 05205-4 Heart Rate 1 : 72 bpm Height: 5'3" SpO2: 98% Weight: 156 lbs 06/01/2016 Blood Pressure 1: 122/66 Code : 8480-6 BMI: 27.5 Code : 89853-4 Heart Rate 1 : 73 bpm Height: 5'3" SpO2: 98% Weight: 155 lbs 8 oz 02/27/2016 Blood Pressure 1: 126/68 Code : 8480-6 BMI: 26.9 Code : 43192-6 Heart Rate 1 : 70 bpm Height: 5'3" SpO2: 98% Weight: 152 lbs 09/10/2015 Blood Pressure 1: 130/70 Code : 8480-6 BMI: 26.9 Code : 54223-5 Heart Rate 1 : 72 bpm Height: 5'3" SpO2: 97% Weight: 152 lbs 05/14/2015 Blood Pressure 1: 138/82 Code : 8480-6 BMI: 26.4 Code : 36360-5 Heart Rate 1 : 75 bpm Height: 5'3" SpO2: 98% Weight: 149 lbs 02/11/2015 Blood Pressure 1: 128/72 Code : 8480-6 BMI: 25.5 Code : 34851-9 Heart Rate 1 : 73 bpm Height: 5'3" SpO2: 94% Weight: 144 lbs Functional Status No Functional Status data History of Present Illness Symptom Name Status Result Effective Date Notes urinary retention/hesitancy Quality constant 11/18/2017 None urinary retention/hesitancy Onset and Resolution gradual in onset 11/18/2017 None urinary retention/hesitancy Onset of Symptom 3 days ago 11/18/2017 None urinary urgency Quality constant 11/18/2017 None urinary urgency Onset and Resolution sudden in onset 11/18/2017 None urinary urgency Onset of Symptom _ days ago 11/18/2017 None earache Location right ear 11/03/2017 None earache Quality acute 11/03/2017 None earache Quality sharp pain 11/03/2017 None earache Onset and Resolution sudden in onset 11/03/2017 None earache Onset of Symptom 2 days ago 11/03/2017 None earache Frequency of Episodes daily 11/03/2017 None earache Triggers allergies 11/03/2017 None fatigue Limitation on Activities does not limit activities 09/22/2017 None fatigue Pertinent Findings Denies cough 09/22/2017 None fatigue Pertinent Findings Denies fever 09/22/2017 None vertigo Quality constant 04/01/2017 None vertigo Quality worsening 04/01/2017 None vertigo Onset and Resolution ongoing 04/01/2017 None vertigo Onset of Symptom _ weeks ago 04/01/2017 None vertigo Limitation on Activities does not limit activities 04/01/2017 None vertigo Frequency of Episodes decreasing 04/01/2017 None vertigo Triggers no known associated factors 04/01/2017 None vertigo Alleviating Factors rest 04/01/2017 None vertigo Pertinent Findings Denies lightheadedness 04/01/2017 None vertigo Pertinent Findings Denies nausea 04/01/2017 None vertigo Pertinent Findings Denies syncope 04/01/2017 None vertigo Pertinent Findings Denies fever 04/01/2017 None cough Location in the lung 04/01/2017 None cough Location in the throat 04/01/2017 None cough Quality acute None cough Onset and Resolution sudden in onset 04/01/2017 None cough Pertinent Findings chest discomfort 04/01/2017 None cough Pertinent Findings Denies fever 04/01/2017 None cough Pertinent Findings Denies lethargy 04/01/2017 None cough Pertinent Findings nasal congestion 04/01/2017 None cough Pertinent Findings sputum production 04/01/2017 None cough Pertinent Findings Denies weakness 04/01/2017 None earache Location right ear 03/25/2017 None earache Quality acute 03/25/2017 None earache Onset and Resolution sudden in onset 03/25/2017 None earache Onset of Symptom 1 days ago 03/25/2017 None earache Triggers no known triggers 03/25/2017 None earache Severity mild 03/25/2017 None earache Frequency of Episodes increasing 03/25/2017 PAIN YESTERDAY AND THROUGH THE NIGHT SOME BUT PAIN HAS RESOLVED TODAY Annual Medicare Wellness Exam Alcohol Use drinks 1 days per week 12/23/2016 None Annual Medicare Wellness Exam Aspirin Use no 12/23/2016 None Annual Medicare Wellness Exam Blood Glucose (self reported) don't know 12/23/2016 None Annual Medicare Wellness Exam Blood Pressure (self reported ) borderline (120/80 - 139/89) 12/23/2016 None Annual Medicare Wellness Exam Cholesterol (self reported) desireable (below 200) 12/23/2016 None Annual Medicare Wellness Exam Depression (last 6 months) almost never 12/23/2016 None Annual Medicare Wellness Exam Depression or Hopelessness almost never 12/23/2016 None Annual Medicare Wellness Exam Describe Your Health good 12/23/2016 None Annual Medicare Wellness Exam Exercise Habits exercises 3 days per week 12/23/2016 None Annual Medicare Wellness Exam Handling Stress usually taisha effectively 12/23/2016 None Annual Medicare Wellness Exam Hemaglobin A-1C (self reported ) don't know 12/23/2016 None Annual Medicare Wellness Exam Hours of Sleep -12/23/2016 None Annual Medicare Wellness Exam Interaction with Friends yes 12/23/2016 None Annual Medicare Wellness Exam Interests & Pleasure some of the time 12/23/2016 None Annual Medicare Wellness Exam Life Satisfaction satisfied 12/23/2016 None Annual Medicare Wellness Exam Motor Vehicle Safety always fastens seat belt: y 12/23/2016 None Annual Medicare Wellness Exam Nutrition servings of vegetables / fruit per day: 4 12/23/2016 None Annual Medicare Wellness Exam Smoking and Tobacco Use non smoker 12/23/2016 None Annual Medicare Wellness Exam Social & Emotional Support usually 12/23/2016 None Annual Medicare Wellness Exam Stress almost never 12/23/2016 None Annual Medicare Wellness Exam Sun Exposure protects skin when outdoors: y 12/23/2016 None vertigo Quality constant 12/22/2016 None vertigo Quality worsening 12/22/2016 None vertigo Onset and Resolution ongoing 12/22/2016 None vertigo Onset of Symptom _ weeks ago 12/22/2016 None vertigo Limitation on Activities does not limit activities 12/22/2016 None vertigo Frequency of Episodes decreasing 12/22/2016 None vertigo Triggers no known associated factors 12/22/2016 None vertigo Alleviating Factors rest 12/22/2016 None vertigo Pertinent Findings Denies lightheadedness 12/22/2016 None vertigo Pertinent Findings Denies nausea 12/22/2016 None vertigo Pertinent Findings Denies syncope 12/22/2016 None vertigo Pertinent Findings Denies fever 12/22/2016 None headache Location diffusely 12/08/2016 None headache Quality aching 12/08/2016 None headache Quality constant 12/08/2016 None headache Quality pressure 12/08/2016 None headache Quality squeezing 12/08/2016 None headache Onset and Resolution sudden in onset 12/08/2016 None headache Pertinent Findings dizziness 12/08/2016 None headache Pertinent Findings lightheadedness 12/08/2016 None headache Pertinent Findings nausea 12/08/2016 None headache Pertinent Findings stiff neck 12/08/2016 None vertigo Quality constant 12/08/2016 None vertigo Onset and Resolution ongoing 12/08/2016 None vertigo Quality worsening 12/08/2016 None hypertension Quality intermittent 11/30/2016 None hypertension Onset and Resolution sudden in onset 11/30/2016 None hypertension Onset of Symptom 3 days ago 11/30/2016 None hypertension Blood Pressure Values Stage 2:SBP 160-179 mmHg / DBP 100-109 mmHg 11/30/2016 None hypertension Frequency of Episodes daily 11/30/2016 None hypertension Pertinent Findings Denies decreased energy 11/30/2016 None hypertension Pertinent Findings Denies dizziness 11/30/2016 None headache Location in the left occipital area 09/28/2016 None headache Location in the right occipital area 09/28/2016 None headache Quality intermittent 09/28/2016 None headache Quality dull 09/28/2016 None headache Quality aching 09/28/2016 None headache Onset and Resolution sudden in onset 09/28/2016 None headache Onset of Symptom 2 weeks ago 09/28/2016 None headache Pertinent Findings Denies blurred vision 09/28/2016 None headache Pertinent Findings dizziness 09/28/2016 None headache Pertinent Findings Denies numbness 09/28/2016 None headache Pertinent Findings Denies syncope 09/28/2016 None hypertension Quality intermittent 07/06/2016 None hypertension Onset and Resolution sudden in onset 07/06/2016 None hypertension Onset of Symptom 3 days ago 07/06/2016 None hypertension Blood Pressure Values Stage 2:SBP 160-179 mmHg / DBP 100-109 mmHg 07/06/2016 None hypertension Frequency of Episodes daily 07/06/2016 None hypertension Pertinent Findings decreased energy 07/06/2016 None hypertension Pertinent Findings dizziness 07/06/2016 None hypertension Quality chronic 06/01/2016 None hypertension Onset and Resolution ongoing 06/01/2016 None hypertension Onset of Symptom during adulthood 06/01/2016 None hypertension Blood Pressure Values patient checking blood pressure at home - did not bring in readings 06/01/2016 -Takes it every morning hypertension Severity mild 06/01/2016 None hypertension Alleviating Factors medication 06/01/2016 None hypertension Pertinent Findings Denies dizziness 06/01/2016 None hypertension Pertinent Findings Denies dyspnea 06/01/2016 None hypertension Pertinent Findings edema 06/01/2016 -mildly in her ankles hypothyroid Quality stable 06/01/2016 None hypothyroid Onset and Resolution ongoing 06/01/2016 None hypothyroid Alleviating Factors medication 06/01/2016 None hyperlipidemia Onset and Resolution gradual in onset 06/01/2016 None hyperlipidemia Onset and Resolution ongoing 06/01/2016 None hyperlipidemia Onset of Symptom during adulthood 06/01/2016 None hyperlipidemia Quality stable 06/01/2016 None hyperlipidemia Alleviating Factors medication 06/01/2016 None hyperlipidemia Exacerbating Factors diet 06/01/2016 None hypertension Quality stable 06/01/2016 None hypertension Pertinent Findings decreased energy 06/01/2016 None fatigue Onset and Resolution ongoing 06/01/2016 None fatigue Limitation on Activities moderately limits activities 06/01/2016 None fatigue Triggers no known associated factors 06/01/2016 None fatigue Exacerbating Factors activity 06/01/2016 None hypothyroid Pertinent Findings decreased energy 06/01/2016 None fatigue Onset of Symptom 1 weeks ago 02/27/2016 None fatigue Frequency of Episodes daily 02/27/2016 None fatigue Triggers no known associated factors 02/27/2016 None fatigue Onset and Resolution sudden in onset 02/27/2016 None fatigue Pertinent Findings lightheadedness 02/27/2016 None fatigue Pertinent Findings nasal congestion 02/27/2016 mild headache Location diffusely 02/27/2016 None headache Quality constant 02/27/2016 None headache Quality pressure 02/27/2016 None headache Onset and Resolution sudden in onset 02/27/2016 None headache Onset of Symptom 2 weeks ago 02/27/2016 None headache Frequency of Episodes daily 02/27/2016 None hypertension Quality chronic 09/10/2015 None hypertension Onset and Resolution ongoing 09/10/2015 None hypertension Onset of Symptom during adulthood 09/10/2015 None hypertension Blood Pressure Values patient checking blood pressure at home - did not bring in readings 09/10/2015 -Takes it every morning hypertension Severity mild 09/10/2015 None hypertension Alleviating Factors medication 09/10/2015 None hypertension Pertinent Findings Denies dizziness 09/10/2015 None hypertension Pertinent Findings Denies dyspnea 09/10/2015 None hypertension Pertinent Findings Denies edema 09/10/2015 None hypothyroid Quality stable 09/10/2015 None hypothyroid Onset and Resolution ongoing 09/10/2015 None hypothyroid Alleviating Factors medication 09/10/2015 None hypertension Quality chronic 05/14/2015 None hypertension Onset and Resolution ongoing 05/14/2015 None hypertension Onset of Symptom during adulthood 05/14/2015 None hypertension Severity mild 05/14/2015 None hypertension Pertinent Findings Denies dizziness 05/14/2015 None hypertension Pertinent Findings Denies dyspnea 05/14/2015 None hypertension Pertinent Findings Denies edema 05/14/2015 None hypothyroid Alleviating Factors medication 05/14/2015 None hypertension Alleviating Factors medication 05/14/2015 None hypertension Blood Pressure Values patient checking blood pressure at home - did not bring in readings 05/14/2015 None hypothyroid Quality stable 05/14/2015 None hypothyroid Onset and Resolution ongoing 05/14/2015 None hypertension Onset of Symptom during adulthood 02/11/2015 None hypertension Blood Pressure Values patient checking blood pressure at home - did not bring in readings 02/11/2015 None hypertension Pertinent Findings Denies dizziness 02/11/2015 None hypertension Pertinent Findings Denies dyspnea 02/11/2015 None hypertension Pertinent Findings Denies edema 02/11/2015 None hypertension Quality chronic 02/11/2015 None hypertension Onset and Resolution ongoing 02/11/2015 None hypertension Severity mild 02/11/2015 None Advance Directives No Advance Directive data Encounters Encounter Performer Location Codes Date [id number] EST. PATIENT, LEVEL III Diagnosis: Acute cystitis with hematuria[ICD10: N30.01] Bridget Cortez MD, [facility] CPT-4: 13639 11/18/2017 55497 EST. PATIENT, LEVEL IV Diagnosis: Other acute sinusitis[ICD10: J01.80] Diagnosis: Otalgia, right ear[ICD10: H92.01] Bridget Cortez MD, [facility] CPT -4: 68723 11/03/2017 96294 EST. PATIENT, LEVEL III Diagnosis: Other fatigue[ICD10: R53.83] Diagnosis: Other malaise[ICD10: R53.81] Diagnosis: Pain in left knee[ICD10: M25.562] Diagnosis: Pain in right knee[ICD10: M25.561] Bridget Cortez MD, [facility] CPT-4: 56109 09/22/2017 ([id number]) 84163 EST. PATIENT, LEVEL III Diagnosis: Cough[ICD10: R05] Diagnosis: Acute bronchitis due to other specified organisms[ICD10: J20.8] [facility] CPT-4: 37097 04/01/2017 ([id number]) 14906 EST. PATIENT, LEVEL III Diagnosis: Otalgia, right ear[ICD10: H92.01] Diagnosis: Other allergic rhinitis[ICD10: J30.89] Shiela Cortez MD [facility] CPT-4: 02130 03/25/2017 ([id number]) 36976 EST. PATIENT, LEVEL III Diagnosis: Benign paroxysmal vertigo, bilateral[ICD10: H81.13] Shiela Cortez MD, [facility] CPT-4: 21008 12/22/2016 ([id number]) 20928 EST. PATIENT, LEVEL IV Diagnosis: Benign paroxysmal vertigo, bilateral[ICD10: H81.13] Diagnosis: Other allergic rhinitis[ICD10: J30.89] Diagnosis: Hypothyroidism, unspecified[ICD10: E03.9] Shiela Cortez MD, [facility] CPT-4: 00526 12/08/2016 ([id number]) 39232 EST. PATIENT, LEVEL IV Diagnosis: Atrophy of thyroid (acquired)[ICD10: E03.4] Diagnosis: Essential (primary) hypertension[ICD10: I10] Diagnosis: Mixed hyperlipidemia[ICD10: E78.2] Elen Cortez MD, [facility] CPT-4: 02010 11/30/2016 47190 EST. PATIENT, LEVEL IV Diagnosis: Headache[ICD10: R51] Diagnosis: Other fatigue[ICD10: R53.83] Diagnosis: Dizziness and giddiness[ICD10: R42] Bridget Cortez MD, [facility] CPT-4: 75330 09/28/2016 95054 EST. PATIENT, LEVEL IV Diagnosis: Essential (primary) hypertension[ICD10: I10] Diagnosis: Headache[ICD10: R51] Bridget Cortez MD, [facility] CPT-4: 76396 07/06/2016 ([id number]) 86027 EST. PATIENT, LEVEL IV Diagnosis: Essential (primary) hypertension[ICD10: I10] Diagnosis: Atrophy of thyroid (acquired)[ICD10: E03.4] Diagnosis: Mixed hyperlipidemia[ICD10: E78.2] Elen Cortez MD, [facility] CPT-4: 20787 06/01/2016 95941 EST. PATIENT, LEVEL IV Diagnosis: Acute laryngopharyngitis[ICD10: J06.0] Diagnosis: Other allergic rhinitis[ICD10: J30.89] Diagnosis: Other specified hypothyroidism[ICD10: E03.8] Diagnosis: Other fatigue[ICD10: R53.83] Bridget Cortez MD, [facility] CPT-4 : 25247 02/27/2016 ([id number]) 39532 EST. PATIENT, LEVEL III Diagnosis: Essential (primary) hypertension[ICD10: I10] Diagnosis: Mixed hyperlipidemia[ICD10: E78.2] Elen Cortez MD, [facility] CPT-4: 64305 09/10/2015 ([id number]) 48077 EST. PATIENT, LEVEL IV Diagnosis: Essential (primary) hypertension[ICD10: I10] Diagnosis: Hypothyroidism, unspecified[ICD10: E03.9] Diagnosis: Unspecified osteoarthritis, unspecified site[ICD10: M19.90] Elen Cortez MD , [facility] CPT-4: 69417 05/14/2015 ([id number]) OFFICE VISIT, NEW - LEVEL 4 Diagnosis: Essential (primary) hypertension[ICD10: I10] Diagnosis: Hypothyroidism, unspecified[ICD10: E03.9] Diagnosis: Unspecified osteoarthritis, unspecified site[ICD10: M19.90] Elen Cortez MD , [facility] CPT-4: 57970 02/11/2015 Plan of Care Planned Activity Notes Codes Status Date Appointment: Bridget Velazco WPtel: [address] [place], [place] [id number] (15 min) Moderate 11/30/2017 Appointment: Lab Draw 11/29/2017 Visit Plan: UTI - pt with positive urinalysis - culture sent if appropriate. Antibiotic electronically prescribed to pt's pharmacy of choice. Pt to call if symptoms do not improve. 11/18/2017 Visit Plan: UTI - pt with positive urinalysis - culture sent if appropriate. Antibiotic electronically prescribed to pt's pharmacy of choice. Pt to call if symptoms do not improve. 11/18/2017 Appointment: Bridget Velazco WPtel: [address] [place], [place] [id number] (15 min) Moderate 11/18/2017 Patient Education: Patient Medication Summary Completed 11/18/2017 Visit Plan: Sinusitis - Pt has acute infection - pain in face, maxillary region, Pt informed to use decongestant, RX given to patient, sinus rinses also recommended. Call if symptoms do not show improvement. 11/03/2017 Appointment: Bridget Velazco WPtel: [facility] [place] (15 min) Moderate 11/03/2017 Patient Education: Patient Medication Summary Completed 11/03/2017 Patient Education: Patient Medication Summary Completed 09/27/2017 Visit Plan: Fatigue, Malaise - will check labs and treat as indicated - pt is to notify clinic if symptoms change, or with any questions or concerns. Bilateral knee pain - the patient was instructed in appropriate posture. The pt is to use prn antiinflammatories to manage acute pain. The patient is to call the office if the pain is worsening or does not improve. 09/22/2017 Appointment: Bridget Velazco WPtel: [facility] [place] (15 min) Moderate 09/22/2017 Patient Education: Patient Medication Summary Completed 09/22/2017 Visit Plan: Bronchitis - acute case of bronchitis identified. Pt has been given antibiotics, breathing treatments as appropriate, and pt has been instructed to call if symptoms are not improved, or if symptoms acutely worsen. 04/01/2017 Appointment: Elen Cortez WPtel: [address] [place], [place] [phone] (15 min) Moderate 04/01/2017 Patient Education: Patient Medication Summary Completed 04/01/2017 Visit Plan: Allergies - chronic - recommended pt to use allergy medication as prescribed. Pt has been counseled as to the appropriate use of the medication. Pt to call if allergy symptoms are not controlled with the medication. If using nasal spray, instructions as follows: Nasal spray- use twice daily, one spray per nostril twice daily, after 30 minutes, rinse out nose with saline spray.. Use opposite hand per nostril to spray in the nasal steroid allergy spray. 03/25/2017 Appointment: Shiela Srivastava WPtel: [address] [place], [place] [phone] (10 min) Simple 03/25/2017 Appointment: Elen Cortez WPtel: [facility] [place] (15 min) Moderate 03/25/2017 Patient Education: Patient Medication Summary Completed 03/25/2017 Visit Plan: Medicare Exam - today we discussed the patients past history, immunizations, preventative exams/evaluations - colonoscopy, fecal occult blood testing, routine labs for renal function, glucose, cholesterol, osteoporosis evaluations, cardiovascular testing and cancer screenings. We have also discussed mental health and the signs/symptoms of depression. The patient was advised of home safety evaluations and the need to make sure that as the aging process continues, we need to be aware of different ways to make the home a safer place to reside. The patient has also been counseled that exercise is necessary - and of utmost importance as we age to help decrease fall risk and to maintain independece in the home. Today we discussed the need for the patient to create paperwork for Advanced directives as well as for the patient to provide this office with a copy of her DOPA paperwork for health care surrogate. 12/23/2016 Appointment: Bridget Velazco WPtel: [address] [place], [place] [phone] [place] [address] - Annual Wellness Visit 12/23/2016 Patient Education: Patient Medication Summary Completed 12/23/2016 Visit Plan: Vertigo-discussed PT for vestibular exercises- patient wants to wait since symptoms are improving-continue anti histamine as directed-meclizine as needed 12/22/2016 Appointment: Shiela Srivastava WPtel[facility] [phone] (30 min) Complex 12/22/2016 Patient Education: Patient Medication Summary Completed 12/22/2016 Patient Education: Patient Medication Summary Completed 12/09/2016 Visit Plan: BPPV - Benign Paroxysmal Positional Vertigo - discussed diagnosis with the patient, offered the pt the appropriate additional information in hand-out. Pt instructed in home exercises to help alleviate and prevent future recurrent episodes of vertigo. Pt informed that if symptoms worsen, call the office for further instructions/medication interventions. Allergies - chronic - recommended pt to use allergy medication as prescribed. Pt has been counseled as to the appropriate use of the medication. Pt to call if allergy symptoms are not controlled with the medication. If using nasal spray , instructions as follows: Nasal spray- use twice daily, one spray per nostril twice daily, after 30 minutes, rinse out nose with saline spray.. Use opposite hand per nostril to spray in the nasal steroid allergy spray. Hypothyroidism - pt with chronic hypothyroidism, continue with current medication, will monitor pt to signs or symptoms of lack of adequate supplementation. Pt is to continue with current dose of medication unless directed otherwise. Check labs at regular intervals wither q 3 months or q 6 months based on previous levels of control. 12/08/2016 Appointment: Shiela Srivastava WPtel: [facility] [place] [place] [id number] (30 min) Complex 12/08/2016 Patient Education: Patient Medication Summary Completed 12/08/2016 Patient Education: .Amazing charts Paroxysmal positional vertigo Completed Visit Plan: Hypertension - well controlled - continue with current medications, continue with no added salt diet. Pt has been encouraged to exercise daily. The pt has been advised to call the office if there are any acute concerns about change in blood pressure readings at home. Hypothyroidism - pt with chronic hypothyroidism, continue with current medication, will monitor pt to signs or symptoms of lack of adequate supplementation. Pt is to continue with current dose of medication unless directed otherwise. Check labs at regular intervals wither q 3 months or q 6 months based on previous levels of control. Hyperlipidemia - pt has been counseled about appropriate diet, exercise, and need for low fat food choices. I have discussed the need for the patient to take medications as prescribed. If the patient has negative side effects from the medication, they are to CALL the office and not abruptly discontinue the medication without discussion with a practitioner in the office. We will check labs in 3-6 months for follow up on the patient's chronic medical problem and to assure normal liver response to medications. 11/30/2016 Appointment: Elen Cortez WPtel: [facility] [place] (15 min) Moderate 11/30/2016 Patient Education: Patient Medication Summary Completed 11/30/2016 Patient Education: Hypertension Completed 11/30/2016 Visit Plan: Episodes of headache, dizziness, and light headedness after BM - Pt does have a history of TIA and stroke - will order carotid US and Brain MRI - discussed vasovagal response with BM, pt is to increase her fluid intake and monitor blood pressures and heart rates. Pt is to notify clinic if symptoms return, or with any changes, questions, or concerns. 09/28/2016 Appointment: Bridget [facility]cotel[facility] [address] [facility] (30 min) Complex 09/28/2016 Patient Education: Patient Medication Summary Completed 09/28/2016 Patient Education: Patient Medication Summary Completed 09/01/2016 Appointment: Lab Draw 07/08/2016 Patient Education: Patient Medication Summary Completed 07/08/2016 Visit Plan: Hypertension - uncontrolled - the patient's medications have been modified as documented in the visit note. The patient has been counseled to cut back on salt in diet for a no added salt diet, low fat diet, start an exercise program with low weight bearing exercises and higher aerobic activity for heart health. The patient is to check blood pressure readings as an outpatient and either fax, call, or email the readings to the office next week for practitioner to review. The pt is to call for acute concerns. 07/06/2016 Appointment: Bridget Velazco [facility]Ptel[facility] [phone] [facility] (15 min) Moderate 07/06/2016 Patient Education: Patient Medication Summary Completed 07/06/2016 Visit Plan: Hypertension - well controlled - continue with current medications, continue with no added salt diet. Pt has been encouraged to exercise daily. The pt has been advised to call the office if there are any acute concerns about change in blood pressure readings at home. Hyperlipidemia - pt has been counseled about appropriate diet, exercise, and need for low fat food choices. I have discussed the need for the patient to take medications as prescribed. If the patient has negative side effects from the medication, they are to CALL the office and not abruptly discontinue the medication without discussion with a practitioner in the office. We will check labs in 3-6 months for follow up on the patient's chronic medical problem and to assure normal liver response to medications. Hypothyroidism - pt with chronic hypothyroidism, continue with current medication, will monitor pt to signs or symptoms of lack of adequate supplementation. Pt is to continue with current dose of medication unless directed otherwise. Check labs at regular intervals wither q 3 months or q 6 months based on previous levels of control. Rash - RX for nystatin cream to be started, call if not improving 06/01/2016 Appointment: [phone] [facility] ([facility] min) Mod[facility] 06/01/2016 Patient Education: Patient Medication Summary Completed 06/01/2016 Patient Education: Hypertension Completed 06/01/2016 Visit Plan: URI - Pt advised to increase fluids, vitamin C. Discussed natural and expected course of this diagnosis and need to alert me if symptoms do not follow expected course, or if any worse. RX sent to patient' s pharmacy. Allergies - chronic - recommended pt to use allergy medication as prescribed. Pt has been counseled as to the appropriate use of the medication. Pt to call if allergy symptoms are not controlled with the medication. If using nasal spray, instructions as follows: Nasal spray- use twice daily, one spray per nostril twice daily, after 30 minutes, rinse out nose with saline spray.. Use opposite hand per nostril to spray in the nasal steroid allergy spray. Hypothyroidism - pt with chronic hypothyroidism, continue with current medication, will monitor pt to signs or symptoms of lack of adequate supplementation. Pt is to continue with current dose of medication unless directed otherwise. Check labs at regular intervals wither q 3 months or q 6 months based on previous levels of control. Fatigue - will check labs 02/27/2016 Appointment: Bridget Velazco WPtel[facility] [phone] [facility] (30 min) Complex 02/27/2016 Patient Education: Patient Medication Summary Completed 02/27/2016 Patient Education: Patient Medication Summary Completed 09/27/2015 Care Plan: SCREENINGMAMMOGRAPHYDIGITAL LOINC : 31548-1 Pending 09/27/2015 Visit Plan: Hypertension - well controlled - continue with current medications, continue with no added salt diet. Pt has been encouraged to exercise daily. The pt has been advised to call the office if there are any acute concerns about change in blood pressure readings at home. Hyperlipidemia - pt has been counseled about appropriate diet, exercise, and need for low fat food choices. I have discussed the need for the patient to take medications as prescribed. If the patient has negative side effects from the medication, they are to CALL the office and not abruptly discontinue the medication without discussion with a practitioner in the office. We will check labs in 3-6 months for follow up on the patient's chronic medical problem and to assure normal liver response to medications. Referral for colonoscopy when pt gives us the name of her preferred provider for the colonoscopy 09/10/2015 Appointment: [facility] Cortez [facility]Ptel[phone] [facility] (15 min) Moderate 09/10/2015 Patient Education: Patient Medication Summary Completed 09/10/2015 Referral: Dr. Ming Kessler WPtel: Referral Completed 05/22/2015 Visit Plan: Hypertension - well controlled - continue with current medications, continue with no added salt diet. Pt has been encouraged to exercise daily. The pt has been advised to call the office if there are any acute concerns about change in blood pressure readings at home. Referral to Dr. Kessler for eval for possible nerve site injections for post-herpetic neuralgia pt reports that if needed - she would prefer to go to the following orthopedic surgeon - Dr. Sanchez. 05/14/2015 Appointment: El[facility] Cortez [facility]Ptel[facility] [phone] [facility] (15 min) Moderate 05/14/2015 Patient Education: Patient Medication Summary Completed 05/14/2015 Patient Education: Hypertension Completed 05/14/2015 Care Plan: Referral Order SNOMED-CT : [id number] Ordered 05/14/2015 Patient Education: Patient Medication Summary Completed 03/01/2015 Appointment: Nurse Visit 02/28/2015 Patient Education: Patient Medication Summary Completed 02/28/2015 Patient Education: Patient Medication Summary Completed 02/27/2015 Appointment: Nurse Visit 02/26/2015 Patient Education: Patient Medication Summary Completed 02/26/2015 Appointment: Injection 02/25/2015 Patient Education: Patient Medication Summary Completed 02/25/2015 Patient Education: Patient Medication Summary Completed 02/21/2015 Care Plan: URINALYSIS NONAUTO W/O SCOPE LOINC : 57963-3 Ordered 02/21/2015 Visit Plan: Hypertension - well controlled - continue with current medications, continue with no added salt diet. Pt has been encouraged to exercise daily. The pt has been advised to call the office if there are any acute concerns about change in blood pressure readings at home. Hypothyroidism - pt with chronic hypothyroidism, continue with current medication, will monitor pt to signs or symptoms of lack of adequate supplementation. Pt is to continue with current dose of medication unless directed otherwise. Check labs at regular intervals wither q 3 months or q 6 months based on previous levels of control. Arthritis- occasionally uncontrolled symptoms- recommend pt to use topical antiinflammatory as directed for pain control. Use tylenol for break through pain symptoms. 02/11/2015 Appointment: Elen Cortez WPtel: [address] [place], [place] [id number] New Patient 02/11/2015 Patient Education: Patient Medication Summary Completed 02/11/2015 Patient Education: Hypertension Completed 02/11/2015 Referral: Dr. Ming Kessler WPtel: Referral Appointment Requested Instructions Comment . UTI - pt with positive urinalysis - culture sent if appropriate. Antibiotic electronically prescribed to pt's pharmacy of choice. Pt to call if symptoms do not improve. . Fatigue, Malaise - will check labs and treat as indicated - pt is to notify clinic if symptoms change, or with any questions or concerns. Bilateral knee pain - the patient was instructed in appropriate posture. The pt is to use prn antiinflammatories to manage acute pain. The patient is to call the office if the pain is worsening or does not improve. . Vertigo-discussed PT for vestibular exercises-patient wants to wait since symptoms are improving-continue anti histamine as directed- meclizine as needed . URI - Pt advised to increase fluids, vitamin C. Discussed natural and expected course of this diagnosis and need to alert me if symptoms do not follow expected course, or if any worse. RX sent to patient's pharmacy. Allergies - chronic - recommended pt to use allergy medication as prescribed. Pt has been counseled as to the appropriate use of the medication. Pt to call if allergy symptoms are not controlled with the medication. If using nasal spray, instructions as follows: Nasal spray- use twice daily, one spray per nostril twice daily, after 30 minutes, rinse out nose with saline spray.. Use opposite hand per nostril to spray in the nasal steroid allergy spray. Hypothyroidism - pt with chronic hypothyroidism, continue with current medication, will monitor pt to signs or symptoms of lack of adequate supplementation. Pt is to continue with current dose of medication unless directed otherwise. Check labs at regular intervals wither q 3 months or q 6 months based on previous levels of control. Fatigue - will check labs FLONASE TWICE DAILY KENALOG INJECTION TODAY . Allergies - chronic - recommended pt to use allergy medication as prescribed. Pt has been counseled as to the appropriate use of the medication. Pt to call if allergy symptoms are not controlled with the medication. If using nasal spray, instructions as follows: Nasal spray- use twice daily, one spray per nostril twice daily, after 30 minutes, rinse out nose with saline spray.. Use opposite hand per nostril to spray in the nasal steroid allergy spray. . Sinusitis - Pt has acute infection - pain in face, maxillary region, Pt informed to use decongestant, RX given to patient, sinus rinses also recommended. Call if symptoms do not show improvement. . UTI - pt with positive urinalysis - culture sent if appropriate. Antibiotic electronically prescribed to pt's pharmacy of choice. Pt to call if symptoms do not improve. . Hypertension - well controlled - continue with current medications, continue with no added salt diet. Pt has been encouraged to exercise daily. The pt has been advised to call the office if there are any acute concerns about change in blood pressure readings at home. Referral to Dr. Kessler for eval for possible nerve site injections for post- herpetic neuralgia pt reports that if needed - she would prefer to go to the following orthopedic surgeon - Dr. Sanchez. . Hypertension - well controlled - continue with current medications, continue with no added salt diet. Pt has been encouraged to exercise daily. The pt has been advised to call the office if there are any acute concerns about change in blood pressure readings at home. Hypothyroidism - pt with chronic hypothyroidism, continue with current medication, will monitor pt to signs or symptoms of lack of adequate supplementation. Pt is to continue with current dose of medication unless directed otherwise. Check labs at regular intervals wither q 3 months or q 6 months based on previous levels of control. Arthritis- occasionally uncontrolled symptoms- recommend pt to use topical antiinflammatory as directed for pain control. Use tylenol for break through pain symptoms. . Medicare Exam - today we discussed the patients past history, immunizations, preventative exams/evaluations - colonoscopy, fecal occult blood testing, routine labs for renal function, glucose, cholesterol, osteoporosis evaluations, cardiovascular testing and cancer screenings. We have also discussed mental health and the signs/symptoms of depression. The patient was advised of home safety evaluations and the need to make sure that as the aging process continues, we need to be aware of different ways to make the home a safer place to reside. The patient has also been counseled that exercise is necessary - and of utmost importance as we age to help decrease fall risk and to maintain independece in the home. Today we discussed the need for the patient to create paperwork for Advanced directives as well as for the patient to provide this office with a copy of her DOPA paperwork for health care surrogate. . Hypertension - well controlled - continue with current medications, continue with no added salt diet. Pt has been encouraged to exercise daily. The pt has been advised to call the office if there are any acute concerns about change in blood pressure readings at home. Hyperlipidemia - pt has been counseled about appropriate diet, exercise, and need for low fat food choices. I have discussed the need for the patient to take medications as prescribed. If the patient has negative side effects from the medication, they are to CALL the office and not abruptly discontinue the medication without discussion with a practitioner in the office. We will check labs in 3-6 months for follow up on the patient's chronic medical problem and to assure normal liver response to medications. Hypothyroidism - pt with chronic hypothyroidism, continue with current medication, will monitor pt to signs or symptoms of lack of adequate supplementation. Pt is to continue with current dose of medication unless directed otherwise. Check labs at regular intervals wither q 3 months or q 6 months based on previous levels of control. Rash - RX for nystatin cream to be started, call if not improving . Episodes of headache, dizziness, and light headedness after BM - Pt does have a history of TIA and stroke - will order carotid US and Brain MRI - discussed vasovagal response with BM, pt is to increase her fluid intake and monitor blood pressures and heart rates. Pt is to notify clinic if symptoms return, or with any changes, questions, or concerns. . Hypertension - well controlled - continue with current medications, continue with no added salt diet. Pt has been encouraged to exercise daily. The pt has been advised to call the office if there are any acute concerns about change in blood pressure readings at home. Hypothyroidism - pt with chronic hypothyroidism, continue with current medication, will monitor pt to signs or symptoms of lack of adequate supplementation. Pt is to continue with current dose of medication unless directed otherwise. Check labs at regular intervals wither q 3 months or q 6 months based on previous levels of control. Hyperlipidemia - pt has been counseled about appropriate diet, exercise, and need for low fat food choices. I have discussed the need for the patient to take medications as prescribed. If the patient has negative side effects from the medication, they are to CALL the office and not abruptly discontinue the medication without discussion with a practitioner in the office. We will check labs in 3-6 months for follow up on the patient's chronic medical problem and to assure normal liver response to medications. . BPPV - Benign Paroxysmal Positional Vertigo - discussed diagnosis with the patient, offered the pt the appropriate additional information in hand-out. Pt instructed in home exercises to help alleviate and prevent future recurrent episodes of vertigo. Pt informed that if symptoms worsen, call the office for further instructions/medication interventions. Allergies - chronic - recommended pt to use allergy medication as prescribed. Pt has been counseled as to the appropriate use of the medication. Pt to call if allergy symptoms are not controlled with the medication. If using nasal spray, instructions as follows: Nasal spray- use twice daily, one spray per nostril twice daily, after 30 minutes, rinse out nose with saline spray.. Use opposite hand per nostril to spray in the nasal steroid allergy spray. Hypothyroidism - pt with chronic hypothyroidism, continue with current medication, will monitor pt to signs or symptoms of lack of adequate supplementation. Pt is to continue with current dose of medication unless directed otherwise. Check labs at regular intervals wither q 3 months or q 6 months based on previous levels of control. . Bronchitis - acute case of bronchitis identified. Pt has been given antibiotics, breathing treatments as appropriate, and pt has been instructed to call if symptoms are not improved, or if symptoms acutely worsen. . Hypertension - well controlled - continue with current medications, continue with no added salt diet. Pt has been encouraged to exercise daily. The pt has been advised to call the office if there are any acute concerns about change in blood pressure readings at home. Hyperlipidemia - pt has been counseled about appropriate diet, exercise, and need for low fat food choices. I have discussed the need for the patient to take medications as prescribed. If the patient has negative side effects from the medication, they are to CALL the office and not abruptly discontinue the medication without discussion with a practitioner in the office. We will check labs in 3-6 months for follow up on the patient's chronic medical problem and to assure normal liver response to medications. Referral for colonoscopy when pt gives us the name of her preferred provider for the colonoscopy increase lisinopril to 20mg twice a day. Keep track of blood pressures and heart rates if still above 140s let me know and we will add a water pill (hydrochlorothiazide) hydralazine as needed for very elevated blood pressures. Hypertension - uncontrolled - the patient's medications have been modified as documented in the visit note. The patient has been counseled to cut back on salt in diet for a no added salt diet, low fat diet, start an exercise program with low weight bearing exercises and higher aerobic activity for heart health. The patient is to check blood pressure readings as an outpatient and either fax , call, or email the readings to the office next week for practitioner to review. The pt is to call for acute concerns.
--- OUTSIDE RECORDS SUMMARY | 2018-02-26 12:33 | XMS REPORT | CCD ---
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 Role Phone PP Unavailable CCM Unavailable Summary Purpose Interface Exchange Insurance Providers Payer name Policy type / Coverage type Covered constitution party ID Effective Begin Date Effective End Date WPS Medicare Part B Medicare Part B [id number] Unknown [employer] Insurance Medicare Part B [id number] Unknown Family history Mother Diagnosis Age At [...] spouses - 02/11/[address]: 055671935 Never smoker 02/11/2015 Alcohol history Unknown occasionally drinks alcohol 02/11/2015 Allergies, Adverse Reactions, Alerts Substance Reaction Codes Entered Date Inactivated Date Status ciprofloxacin rash RxNorm: 84741 02/26/2015 No Inactive Date Active Past Medical History Illness Codes Condition Status Onset Date Resolved Date Acute bronchitis due to other specified organisms ICD-9: 466.0 ICD-10: J20.8 Active 04/01/2017 Unknown Cough ICD-9: 786.2 ICD-10: R05 Active 04/01/2017 Unknown Otalgia, right ear ICD -9: 388.70 ICD-10: H92.01 Active 03/25/2017 Unknown Other allergic rhinitis ICD-9: 477.8 ICD-10: [...] ICD-9: 784.0 ICD-10: R51 Active 07/06/2016 Unknown Other fatigue ICD-9: 780.79 ICD-10: R53.83 Active 02/26/2016 Unknown Dysuria ICD-9: 788.1 ICD-10: R30.0 Active [...] Condition Codes Effective Dates Condition Status Acute bronchitis due to other specified organisms ICD-9: 466.0 ICD-10: J20.8 04/01/2017 Active Cough ICD-9: 786.2 ICD-10: R05 04/01/2017 Active Otalgia, right ear ICD -9: 388.70 ICD-10: H92.01 03/25/2017 Active Other allergic rhinitis ICD-9: 477.8 ICD-10: [...] Headache ICD-9: 784.0 ICD-10: R51 07/06/2016 Active Other fatigue ICD-9: 780.79 ICD-10: R53.83 02/26/2016 Active Dysuria ICD-9: 788.1 ICD-10: R30.0 02/20/2015 [...] Fill Instructions Synthroid 88 mcg tablet RxNorm: 830387 TAKE 1 TABLET BY MOUTH DAILY 05/24/2017 08/21/2017 Active 05/24/2017 2:13:21 PM cetirizine 10 mg tablet RxNorm: 7067369 1 Tablet(s) PO daily 12/12/2017 Active Zithromax Z-Russell 250 mg capsule RxNorm: 945069 1 Capsule(s) PO 04/02/2017 04/05/2017 Inactive Zithromax Z-Russell 250 mg tablet RxNorm: 861435 1 Tablet(s) PO 04/01/2017 Inactive Zithromax Z-Russell 250 mg capsule RxNorm: 820007 1 Capsule(s) PO 04/02/2017 04/01/2017 Inactive Zithromax Z-Russell 250 mg tablet RxNorm: 042528 1 Tablet(s) PO 04/06/2017 Inactive Ventolin HFA 90 mcg/actuation aerosol inhaler RxNorm: 299067 2 INH QID as needed - for the first 3 days inhale at least two puffs three times daily, then use as needed for shortness of breath 04/01/2017 04/30/2017 Inactive Keflex 500 mg capsule RxNorm: 312833 1 Capsule(s) PO TID 201604/01/2017 Inactive meclizine 25 mg tablet RxNorm: 384887 1 Tablet(s) PO Q6 PRN 1 Tablet(s) PO Q6 PRN 03/25/2017 No Stop Date Active dizziness meclizine 25 mg tablet RxNorm: 624909 Tablet(s) 1 Tablet(s) PO Q6 PRN 03/25/2017 03/24/2017 Inactive dizziness Kenalog 40 mg/mL suspension for injection RxNorm: 8262825 1 Milliliter(s) Inj 03/25/2017 03/25/2017 Inactive meclizine 25 mg tablet RxNorm: 480427 1 Tablet(s) PO Q6 PRN 03/24/2017 Inactive dizziness lisinopril 20 mg tablet RxNorm: 380791 1 Tablet(s) PO BID 01/1506/13/2017 Active metoprolol succinate ER 50 mg tablet,extended release 24 hr RxNorm: 939278 TAKE 1 TABLET BY MOUTH DAILY 01/07/20172017 Active Generic For:TOPROL XL 50MG TAB 01/07/2017 12:38:23 PM Synthroid 88 mcg tablet RxNorm: 195020 TAKE 1 TABLET BY MOUTH DAILY 12/25/2016 05/23/2017 Inactive 12/25/2016 9:47:08 AM Zithromax Z-Russell 250 mg tablet RxNorm: 786881 Tablet(s) PO UD 03/24/2017 Inactive meclizine 25 mg tablet RxNorm: 203171 1 Tablet(s) PO Q6 PRN 12/20/2016 Inactive dizziness Kenalog 40 mg/mL suspension for injection RxNorm: 3316396 Milliliter(s) Inj 12/08/2016 12/08/2016 Inactive meloxicam 15 mg tablet RxNorm: 309540 1 Tablet(s) PO daily 12/20/2016 Inactive cetirizine 10 mg tablet RxNorm: 3339362 1 Tablet(s) PO daily 05/16/2017 Inactive pravastatin 40 mg tablet RxNorm: 712181 1 Tablet(s) PO BID 07/201608/14/2017 Active Cancel 80 mg tab lisinopril 20 mg tablet RxNorm: 097367 1 Tablet(s) PO BID 08/1212/22/2016 Inactive Synthroid 88 mcg tablet RxNorm: 517252 1 Tablet(s) PO TAKE ONE (1) TABLET BY MOUTH DAILY 07/28/2016 12/24/2016 Inactive decrease dose hydralazine 25 mg tablet RxNorm: 092588 1 Tablet(s) PO TID as needed for Systolic blood pressure over 170 07/06/20162016 Inactive lisinopril 20 mg tablet RxNorm: 912137 1 Tablet(s) PO BID to replace your other lisinopril dose 07/06/2016 08/04/2016 Inactive lisinopril 10 mg tablet RxNorm: 175089 TAKE ONE TABLET BY MOUTH TWICE DAILY 06/10/2016 08/11/2016 Inactive Generic For:ZESTRIL 10 MG TABLET 06/09/2016 12:58: 50 PM triamcinolone acetonide 0.1 % topical cream RxNorm: 2150655 1 Application TOP TID as needed 06/01/2016 No Stop Date Active nystatin 100,000 unit/gram topical cream RxNorm: 671776 1 Gram(s) TOP TID as needed 06/01/2016 No Stop Date Active metoprolol succinate ER 50 mg tablet,extended release 24 hr RxNorm: 602058 1 Tablet(s) PO daily 05/26/2016 12/21/2016 Inactive cetirizine 10 mg tablet RxNorm: 1901457 1 Tablet(s) PO daily 10/18/2016 Inactive Synthroid 88 mcg tablet RxNorm: 674311 1 Tablet(s) PO TAKE ONE (1) TABLET BY MOUTH DAILY 03/06/2016 08/02/2016 Inactive Brand name only! Synthroid 88 mcg tablet RxNorm: 842344 1 Tablet(s) PO TAKE ONE (1) TABLET BY MOUTH DAILY 03/04/2016 03/05/2016 Inactive decrease dose cetirizine 10 mg tablet RxNorm: 0384199 1 Tablet(s) PO daily 03/22/2016 Inactive amoxicillin 500 mg capsule RxNorm: 686897 1 Capsule(s) PO TID 02/27/2016 03/04/2016 Inactive lisinopril 10 mg tablet RxNorm: 672266 TAKE ONE TABLET BY MOUTH TWICE DAILY 02/06/2016 06/04/2016 Inactive Generic For:ZESTRIL 10 MG TABLET 02/06/2016 12:16: 38 PM Synthroid 100 mcg tablet RxNorm: 017820 TAKE ONE (1) TABLET BY MOUTH DAILY 01/03/2016 03/03/2016 Inactive 01/03/2016 10:35:14 AM N O T I C E Last quantity doesn't match original quantity lisinopril 10 mg tablet RxNorm: 125853 1 Tablet(s) PO BID 10/0301/31/2016 Inactive Synthroid 100 mcg tablet RxNorm: 925630 1 Tablet(s) PO daily 01/02/2016 Inactive metoprolol succinate ER 50 mg tablet,extended release 24 hr RxNorm: 917797 1 Tablet(s) PO daily 10/04/2015 04/30/2016 Inactive Tylenol Arthritis 650 mg tablet,extended release RxNorm: 7688430 2 Tablet(s) PO TID 09/10/2015 No Stop Date Active metoprolol succinate ER 50 mg tablet,extended release 24 hr RxNorm: 784261 1 Tablet(s) PO daily 09/05/2015 10/03/2015 Inactive pravastatin 80 mg tablet RxNorm: 424949 1 Tablet(s) PO QHS 08/30/2015 Inactive pravastatin 40 mg tablet RxNorm: 315707 1 Tablet(s) PO BID 08/29/2015 Inactive Cancel 80 mg tab pravastatin 40 mg tablet RxNorm: 289681 1 Tablet(s) PO BID 08/19/2016 Inactive Cancel 80 mg tab lisinopril 10 mg tablet RxNorm: 512011 1 Tablet(s) PO BID 06/1308/11/2016 Inactive lisinopril 10 mg tablet RxNorm: 926834 1 Tablet(s) PO BID 06/1310/03/2015 Inactive Synthroid 100 mcg tablet RxNorm: 982413 1 Tablet(s) PO daily 10/03/2015 Inactive ceftriaxone 1 gram solution for injection RxNorm: 1995901 Inj 03/01/2015 03/01/2015 Inactive ceftriaxone 1 gram solution for injection RxNorm: 4360404 Inj 02/28/2015 02/28/2015 Inactive ceftriaxone 1 gram solution for injection RxNorm: 7141774 Inj 02/27/2015 02/27/2015 Inactive ceftriaxone 1 gram solution for injection RxNorm: 4890423 Inj 02/26/2015 02/26/2015 Inactive ceftriaxone 1 gram solution for injection RxNorm: 1534210 Inj 02/25/2015 02/25/2015 Inactive phenazopyridine 200 mg tablet RxNorm: 1093868 1 Tablet(s) PO Q8 02/21/2015 02/20/2015 Inactive Cipro 500 mg tablet RxNorm: 506380 1 Tablet(s) PO BID 201402/20/2015 Inactive phenazopyridine 200 mg tablet RxNorm: 0441931 1 Tablet(s) PO Q8 02/21/2015 02/25/2015 Inactive Cipro 500 mg tablet RxNorm: 815216 1 Tablet(s) PO BID 201402/27/2015 Inactive lisinopril 10 mg tablet RxNorm: 358751 1 Tablet(s) PO BID 02/1406/12/2015 Inactive metoprolol succinate ER 50 mg tablet,extended release 24 hr RxNorm: 697150 3/4 Tablet(s) PO daily 02/11/2015 09/04/2015 Inactive Voltaren 1 % topical gel RxNorm: 586634 2 Gram(s) TOP QID use this on affected joints up to four times daily. 02/11/2015 03/12/2015 Inactive Probiotic oral RxNorm : 6205 oral No Start Date Active aspirin 81 mg tablet RxNorm: 007533 1 Tablet(s) PO daily No Start Date Active Super B-Complex tablet RxNorm: 1 Tablet(s) PO No Start Date Active Super-D3+ oral RxNorm : oral No Start Date Active lisinopril 40 mg tablet RxNorm: 495254 1 Tablet(s) PO BID No Start Date Active Prilosec OTC 20 mg tablet,delayed release RxNorm: 686835 2 Tablet(s) PO QAM No Start Date Active Flonase Allergy Relief 50 mcg/actuation nasal spray, suspension RxNorm: 8196575 1 [place] NASAL as needed No Start Date Active Move Free Ultra 40 mg-10 mg-3.3 mg tablet RxNorm: 1 Tablet(s) PO daily No Start Date Active metoprolol tartrate 50 mg tablet RxNorm: 642543 1 Tablet(s) PO daily No Start Date 02/10/2015 Inactive lisinopril 10 mg tablet RxNorm: 092460 1 Tablet(s) PO BID No Start Date 02/13/2015 Inactive pravastatin 80 mg tablet RxNorm: 899822 1 Tablet(s) PO daily No Start Date 08/29/2015 Inactive Synthroid 100 mcg tablet RxNorm: 121420 1 Tablet(s) PO daily No Start Date 06/09/2015 Inactive Tylenol Arthritis 650 mg tablet,extended release RxNorm: 7709191 4 Tablet(s) PO daily No Start Date 09/09/2015 Inactive Medication Administered Medication Codes Instructions Start Date Status Kenalog 40 mg/mL suspension for injection RxNorm: 6162915 1Milliliter 03/25/2017 No longer Active Kenalog 40 mg/mL suspension for injection RxNorm: 0168626 Milliliter 12/08/2016 No longer Active ceftriaxone 1 gram solution for injection RxNorm: 5082396 03/01/2015 No longer Active ceftriaxone 1 gram solution for injection RxNorm: 4454146 02/28/2015 No longer Active ceftriaxone 1 gram solution for injection RxNorm: 8456526 02/27/2015 No longer Active ceftriaxone 1 gram solution for injection RxNorm: 4831958 02/26/2015 No longer Active ceftriaxone 1 gram solution for injection RxNorm: 5340689 02/25/2015 No longer Active Immunizations Vaccine Codes Date Status Influenza CVX: 141 03/15/2017 completed Influenza CVX: 141 03/18/2016 completed Influenza CVX: 141 02/11/2015 completed Assessments Condition Codes Effective Dates Acute bronchitis due to other specified organisms ICD-10: J20.8 ICD-9: 466.0 04/01/2017 Cough ICD-10: R05 ICD-9: 786.2 04/01/2017 Otalgia, right ear ICD-10: H92.01 ICD-9: 388.70 03/25/2017 Other allergic rhinitis ICD-10: J30.89 ICD-9: 477.8 03/25/2017 Encounter for general adult medical examination with abnormal findings ICD-10: Z00.01 ICD-9: V70.0 12/23/2016 Benign paroxysmal vertigo, bilateral ICD-10: H81.13 ICD-9: 386.11 12/22/2016 Impaired fasting glucose ICD-10: R73.01 ICD-9: 790.21 12/09/2016 Hypothyroidism, unspecified ICD-10: E03.9 ICD-9: 244.9 12/08/2016 Mixed hyperlipidemia ICD-10: E78.2 ICD-9: 272.2 11/30/2016 Atrophy of thyroid (acquired) ICD-10: E03.4 ICD-9: 244.8 11/30/2016 Essential (primary) hypertension ICD-10: I10 ICD-9: 401.9 11/30/2016 Dizziness and giddiness ICD-10: R42 ICD-9: 780.4 09/28/2016 Other fatigue ICD-10: R53.83 ICD-9: 780.79 09/28/2016 Headache ICD-10: R51 ICD-9: 784.0 09/28/2016 Dysuria ICD-10: R30.0 ICD-9: 788.1 07/08/2016 Acute laryngopharyngitis ICD-10: J06.0 ICD-9: 465.0 02/27/2016 Other specified hypothyroidism ICD-10: E03.8 ICD-9: 244.8 02/27/2016 Encounter for screening mammogram for malignant neoplasm of breast ICD-10: Z12.31 ICD-9: V76.12 09/27/2015 Unspecified osteoarthritis, unspecified site ICD-10: M19.90 ICD-9: 715.90 05/14/2015 Urinary tract infection, site not specified ICD-10: N39.0 ICD-9: 599.0 03/01/2015 Reason For Visit Reason For Visit Effective Dates Notes vertigo 04/01/2017 earache 03/25/2017 Annual Medicare Wellness Exam 12/23/2016 vertigo 12/22/2016 headache 12/08/2016 hypertension 11/30/2016 headache 09/28/2016 hypertension 07/06/2016 hypertension 06/01/2016 fatigue 02/27/2016 hypertension 09/10/2015 hypertension 05/14/2015 hypertension 02/11/2015 Results Observation Observation Code Item Item Code Result Date %Hba1C Gcx189 % HbA1c 98309-7 6.0 % 12/10/2016 %Hba1C Bvy361 Gluc Ave 126 mg/dL 12/10/2016 Tsh Ord6 hTSH II 0.89 uIU/mL 12/09/2016 Free T4 Kei165 FREE T4 0.99 ng/dL 12/09/2016 Comp Metabolic Jgs527 NA 138 mEq/L 12/09/2016 Comp Metabolic Hlk267 K 5.2 mEq/L 12/09/2016 Comp Metabolic Jmm858 CL 104 mEq/L 12/09/2016 Comp Metabolic Fry887 CO2 29.0 mEq/L 12/09/2016 Comp Metabolic Qhi556 ANION GAP 10 12/09/2016 Comp Metabolic Yfv469 GLUCOSE 135 mg/dL 12/09/2016 Comp Metabolic Szv072 Creat 0.8 mg/dL 12/09/2016 Comp Metabolic Tiw837 eGFR 79 ml/min/1.73m2 12/09/2016 Comp Metabolic Jua030 BUN 18 mg/dL 12/09/2016 Comp Metabolic Opf984 B/C Ratio 23.7 Ratio 12/09/2016 Comp Metabolic Sqo648 CALCIUM 9.5 mg/dL 12/09/2016 Comp Metabolic Mav565 ALK PHOS 73 U/L 12/09/2016 Comp Metabolic Nyn374 AST(SGOT) 24 U/L 12/09/2016 Comp Metabolic Svs403 ALT(SGPT) 20 U/L 12/09/2016 Comp Metabolic Uci352 BILI T 0.3 mg/dL 12/09/2016 Comp Metabolic Hab734 ALBUMIN 4.3 g/dL 12/09/2016 Comp Metabolic Pfj885 TPRO 6.4 g/dL 12/09/2016 Comp Metabolic Alj632 GLOB 2.1 g/dL 12/09/2016 Comp Metabolic Dpr575 A/G Ratio 2.0 Ratio 12/09/2016 Comp Metabolic Fqm285 Osmo 280 mOsmo 12/09/2016 Cbc With Differential Ord2 WBC 8.96 K/ul 12/09/2016 Cbc With Differential Ord2 RBC 4.12 M/ul 12/09/2016 Cbc With Differential Ord2 HGB 12.9 g/dl 12/09/2016 Cbc With Differential Ord2 Neut% 71.2 % 12/09/2016 Cbc With Differential Ord2 HCT 38.9 % 12/09/2016 Cbc With Differential Ord2 Lymph% 20.5 % 12/09/2016 Cbc With Differential Ord2 MCV 94.4 fl 12/09/2016 Cbc With Differential Ord2 MCH 31.3 pg 12/09/2016 Cbc With Differential Ord2 [place]% 6.5 % 12/09/2016 Cbc With Differential Ord2 Eos% 1.1 % 12/09/2016 Cbc With Differential Ord2 MCHC 33.2 pg 12/09/2016 Cbc With Differential Ord2 PLT 247 K/ul 12/09/2016 Cbc With Differential Ord2 Baso% 0.7 % 12/09/2016 Cbc With Differential Ord2 RDW 13.1 % 12/09/2016 Cbc With Differential Ord2 Neut ABS# 6.38 K/ul 12/09/2016 Cbc With Differential Ord2 Lymph ABS# 1.84 K/ul 12/09/2016 Cbc With Differential Ord2 [place] ABS# 0.6 K/ul 12/09/2016 Cbc With Differential Ord2 Eos ABS# 0.1 K/ul 12/09/2016 Cbc With Differential Ord2 Baso ABS# 0.1 K/ul 12/09/2016 Tsh Ord6 hTSH II 1.19 uIU/mL 09/02/2016 Free T4 Yya451 FREE T4 0.97 ng/dL 09/02/2016 Comp Metabolic Mpj157 NA 137 mEq/L 06/01/2016 Comp Metabolic Tdg155 K 4.1 mEq/L 06/01/2016 Comp Metabolic Ikx161 CL 104 mEq/L 06/01/2016 Comp Metabolic Zeu843 CO2 25.0 mEq/L 06/01/2016 Comp Metabolic Opw459 ANION GAP 12 06/01/2016 Comp Metabolic Chu535 GLUCOSE 108 mg/dL 06/01/2016 Comp Metabolic Jfx538 Creat 0.8 mg/dL 06/01/2016 Comp Metabolic Wph960 eGFR 80 ml/min/1.73m2 06/01/2016 Comp Metabolic Xbr234 BUN 15 mg/dL 06/01/2016 Comp Metabolic Spd752 B/C Ratio 20.0 Ratio 06/01/2016 Comp Metabolic Nqm101 CALCIUM 9.1 mg/dL 06/01/2016 Comp Metabolic Ghh569 ALK PHOS 89 U/L 06/01/2016 Comp Metabolic Oat097 AST(SGOT) 25 U/L 06/01/2016 Comp Metabolic Til052 ALT(SGPT) 20 U/L 06/01/2016 Comp Metabolic Ssm807 BILI T 0.3 mg/dL 06/01/2016 Comp Metabolic Toz815 ALBUMIN 4.2 g/dL 06/01/2016 Comp Metabolic Ree233 TPRO 6.2 g/dL 06/01/2016 Comp Metabolic Bvj561 GLOB 2.0 g/dL 06/01/2016 Comp Metabolic Ajd516 A/G Ratio 2.1 Ratio 06/01/2016 Comp Metabolic Eus963 Osmo 275 mOsmo 06/01/2016 Free T4 Myj226 FREE T4 0.94 ng/dL 06/01/2016 Tsh Ord6 hTSH II 1.44 uIU/mL 06/01/2016 Lipid Ord30 CHOL 144 mg/dL 06/01/2016 [...] 39.7 % 06/01/2016 Cbc With Differential Ord2 MCV 96.4 fl 06/01/2016 Cbc With Differential Ord2 Lymph% 44.5 % 06/01/2016 Cbc With Differential Ord2 MCH 31.1 pg 06/01/2016 Cbc With Differential Ord2 [place]% 8.4 % 06/01/2016 Cbc With Differential Ord2 MCHC 32.2 pg 06/01/2016 Cbc With Differential Ord2 Eos% 4.5 % 06/01/2016 Cbc With Differential Ord2 Baso% 0.8 % 06/01/2016 Cbc With Differential Ord2 PLT 243 K/ul 06/01/2016 Cbc With Differential Ord2 Neut ABS# 2.78 K/ul 06/01/2016 Cbc With Differential Ord2 RDW 12.8 % 06/01/2016 Cbc With Differential Ord2 Lymph ABS# 2.96 K/ul 06/01/2016 Cbc With Differential Ord2 [place] ABS# 0.6 K/ul 06/01/2016 Cbc With Differential Ord2 Eos ABS# 0.3 K/ul 06/01/2016 Cbc With Differential Ord2 Baso ABS# 0.1 K/ul 06/01/2016 Cbc With Differential Ord2 WBC 8.50 K/ul 02/27/2016 Cbc With Differential Ord2 RBC 3.93 M/ul 02/27/2016 Cbc With Differential Ord2 HGB 12.3 g/dl 02/27/2016 Cbc With Differential Ord2 Neut% 59.2 % 02/27/2016 Cbc With Differential Ord2 HCT 37.6 % 02/27/2016 Cbc With Differential Ord2 MCV 95.7 fl 02/27/2016 Cbc With Differential Ord2 Lymph% 26.8 % 02/27/2016 Cbc With Differential Ord2 MCH 31.3 pg 02/27/2016 Cbc With Differential Ord2 [place]% 10.0 % 02/27/2016 Cbc With Differential Ord2 MCHC 32.7 pg 02/27/2016 Cbc With Differential Ord2 Eos% 3.3 % 02/27/2016 Cbc With Differential Ord2 PLT 281 K/ul 02/27/2016 Cbc With Differential Ord2 Baso% 0.7 % 02/27/2016 Cbc With Differential Ord2 RDW 13.6 % 02/27/2016 Cbc With Differential Ord2 Neut ABS# 5.03 K/ul 02/27/2016 Cbc With Differential Ord2 Lymph ABS# 2.28 K/ul 02/27/2016 Cbc With Differential Ord2 [place] ABS# 0.9 K/ul 02/27/2016 Cbc With Differential Ord2 Eos ABS# 0.3 K/ul 02/27/2016 Cbc With Differential Ord2 Baso ABS# 0.1 K/ul 02/27/2016 Tsh Ord6 hTSH II 0.18 uIU/mL 02/27/2016 Free T4 Fml037 FREE T4 1.17 ng/dL 02/27/2016 Comp Metabolic Rav934 NA 135 mEq/L 02/27/2016 Comp Metabolic Kfi155 K 5.2 mEq/L 02/27/2016 Comp Metabolic Skb495 CL 102 mEq/L 02/27/2016 Comp Metabolic Nkj698 CO2 27.0 mEq/L 02/27/2016 Comp Metabolic Yyq031 ANION GAP 11 02/27/2016 Comp Metabolic Lia629 GLUCOSE 93 mg/dL 02/27/2016 Comp Metabolic Rxd709 Creat 0.7 mg/dL 02/27/2016 Comp Metabolic Uzf239 eGFR 91 ml/min/1.73m2 02/27/2016 Comp Metabolic Bet734 BUN 14 mg/dL 02/27/2016 Comp Metabolic Lmy809 B/C Ratio 20.9 Ratio 02/27/2016 Comp Metabolic Msg327 CALCIUM 9.4 mg/dL 02/27/2016 Comp Metabolic Zcm469 ALK PHOS 100 U/L 02/27/2016 Comp Metabolic Wxg229 AST(SGOT) 23 U/L 02/27/2016 Comp Metabolic Mmo476 ALT(SGPT) 24 U/L 02/27/2016 Comp Metabolic Hfl789 BILI T 0.2 mg/dL 02/27/2016 Comp Metabolic Ojo824 ALBUMIN 4.3 g/dL 02/27/2016 Comp Metabolic Iya865 TPRO 6.3 g/dL 02/27/2016 Comp Metabolic Gbe792 GLOB 2.1 g/dL 02/27/2016 Comp Metabolic Yqz312 A/G Ratio 2.1 Ratio 02/27/2016 Comp Metabolic Lhw387 Osmo 270 mOsmo 02/27/2016 Free T4 Hcv095 FREE T4 1.03 ng/dL 05/10/2015 Comp Metabolic Aga222 NA 137 mEq/L 05/10/2015 Comp Metabolic Jcw597 K 4.4 mEq/L 05/10/2015 Comp Metabolic Dua831 CL 102 mEq/L 05/10/2015 Comp Metabolic Liw656 CO2 28.0 mEq/L 05/10/2015 Comp Metabolic Nhp588 ANION GAP 11 05/10/2015 Comp Metabolic Ibx050 GLUCOSE 108 mg/dL 05/10/2015 Comp Metabolic Udo921 Creat 0.7 mg/dL 05/10/2015 Comp Metabolic Ekk670 eGFR 86 ml/min/1.73m2 05/10/2015 Comp Metabolic Pbj733 BUN 13 mg/dL 05/10/2015 Comp Metabolic Mbz668 B/C Ratio 18.3 Ratio 05/10/2015 Comp Metabolic Ypd435 CALCIUM 9.4 mg/dL 05/10/2015 Comp Metabolic Imt624 ALK PHOS 94 U/L 05/10/2015 Comp Metabolic Edi096 AST(SGOT) 22 U/L 05/10/2015 Comp Metabolic Ioj426 ALT(SGPT) 21 U/L 05/10/2015 Comp Metabolic Yay703 BILI T 0.3 mg/dL 05/10/2015 Comp Metabolic Nfd004 ALBUMIN 3.9 g/dL 05/10/2015 Comp Metabolic Oco589 TPRO 6.1 g/dL 05/10/2015 Comp Metabolic Err949 GLOB 2.2 g/dL 05/10/2015 Comp Metabolic Iea389 A/G Ratio 1.7 Ratio 05/10/2015 Comp Metabolic Ckc502 Osmo 274 mOsmo 05/10/2015 Tsh Ord6 hTSH II 0.59 uIU/mL 05/10/2015 Cbc With Differential Ord2 WBC 5.77 [...] 29.4 pg 05/10/2015 Cbc With Differential Ord2 [place]% 9.0 % 05/10/2015 Cbc With Differential Ord2 Eos% 4.7 % 05/10/2015 Cbc With Differential Ord2 MCHC 31.8 pg 05/10/2015 Cbc With Differential Ord2 PLT 228 K/ul 05/10/2015 Cbc With Differential Ord2 Baso% 0.9 % 05/10/2015 Cbc With Differential Ord2 Neut ABS# 2.79 K/ul 05/10/2015 Cbc With Differential Ord2 RDW 13.3 % 05/10/2015 Cbc With Differential Ord2 Lymph ABS# 2.14 K/ul 05/10/2015 Cbc With Differential Ord2 [place] ABS# 0.5 K/ul 05/10/2015 Cbc With Differential Ord2 Eos ABS# 0.3 K/ul 05/10/2015 Cbc With Differential Ord2 Baso ABS# 0.1 K/ul 05/10/2015 Cbc With Differential Ord2 New Analyzer Notice Please note new ref ranges starting 05-01-2015 due to implemntation of new five part differential hematolgy analyzer. 05/10/2015 Lipid Ord30 CHOL 147 mg/dL 05/10/2015 Lipid Ord30 HDL 39.0 mg/dl 05/10/2015 Lipid Ord30 TRIG 149 mg/dL 05/10/2015 Lipid Ord30 LDL 78 mg/dL 05/10/2015 Lipid Ord30 C/HDL 3.8 Ratio 05/10/2015 Culture Urine [id number] URINE CULTURE SEE NOTES 02/25/2015 Culture Urine [id number] Continued Results 02/25/2015 Urine Culture Ucult Complete >100,000 col/ml aerobic growth sent to ref lab 02/22/2015 Free T4 Icz929 FREE T4 1.16 ng/dL 02/11/2015 Tsh Ord6 hTSH II 0.51 uIU/mL 02/11/2015 Review of Systems System Result Effective Dates Constitutional No recent illness 2016 Constitutional No [...] contact 03/25/2017 None Full Exam - General 1995 Constitutional general appearance Overall: well developed 12/23/2016 None Full Exam - General 1994 Constitutional general appearance Overall: in no acute distress 12/23/2016 None Full Exam - General 1995 Constitutional general appearance Overall: well nourished 12/23/2016 None Full Exam - General 1995 Eyes conjunctiva /eyelids Overall: conjunctiva clear 12/23/2016 None Full Exam - General 1994 Eyes conjunctiva /eyelids Overall: eyelids normal 12/23/2016 None Full Exam - General 1994 Ears/Nose/Throat lips/teeth/gingiva Overall: benign lips 12/23/2016 None Full Exam - General 1994 Respiratory respiratory effort/rhythm Overall: no retractions 12/23/2016 None Full Exam - General 1994 Respiratory respiratory effort/rhythm Overall: normal rate 12/23/2016 [...] crepitus 02/11/2015 None Procedures Procedure Codes Date PRESCRIP TRANSMIT VIA ERX SY CPT-4: G8553 04/01/2017 TRIAMCINOLONE ACET INJ NOS CPT-4: J3301 03/25/2017 PPPS, SUBSEQ VISIT CPT -4: G0439 12/23/2016 THER/PROPH/DIAG INJ SC/IM CPT-4: 37332 12/08/2016 TRIAMCINOLONE ACET INJ NOS CPT-4: J3301 12/08/2016 PRESCRIP TRANSMIT VIA ERX SY CPT-4: G8553 12/08/2016 PRESCRIP TRANSMIT VIA ERX SY CPT-4: G8553 11/30/2016 URINALYSIS NONAUTO W/O SCOPE CPT-4: 43240 07/08/2016 PRESCRIP TRANSMIT VIA ERX SY CPT-4: G8553 06/01/2016 PRESCRIP TRANSMIT VIA ERX SY CPT-4: G8553 02/27/2016 THER/PROPH/DIAG INJ SC/IM CPT-4: 45722 03/01/2015 ROCEPHIN, PER 250 MG CPT-4: J0696 03/01/2015 THER/PROPH/DIAG INJ SC/IM CPT-4: 58659 02/28/2015 ROCEPHIN, PER 250 MG CPT-4: J0696 02/28/2015 THER/PROPH/DIAG INJ SC/IM CPT-4: 72126 02/27/2015 ROCEPHIN, PER 250 MG CPT-4: J0696 02/27/2015 THER/PROPH/DIAG INJ SC/IM CPT-4: 35595 02/26/2015 ROCEPHIN, PER 250 MG CPT-4: J0696 02/26/2015 THER/PROPH/DIAG INJ SC/IM CPT-4: 17549 02/25/2015 ROCEPHIN, PER 250 MG CPT-4: J0696 02/25/2015 URINALYSIS NONAUTO W/O SCOPE CPT-4: 18007 02/21/2015 Vital Signs Date Vital 04/01/2017 Blood Pressure 1: 144/82 Code : 8480-6 Heart Rate 1: 68 bpm Height: 5'3" SpO2: 97% Weight: 03/25/2017 Blood Pressure 1: 116/70 Code : 8480-6 BMI: 26.7 Code : 25302-0 Heart Rate 1 : 67 bpm Height: 5'3" SpO2: 98% Weight: 151 lbs 12/23/2016 BMI: 26.7 Code: 78992-2 Height: 5'3" Weight: 151 lbs 12/22/2016 Blood Pressure 1: 142/60 Code : 8480-6 BMI: 26.7 Code : 36535-8 Heart Rate 1 : 67 bpm Height: 5'3" SpO2: 98% Weight: 151 lbs 12/08/2016 Blood Pressure 1: 140/72 Code : 8480-6 Heart Rate 1: 72 bpm Height: 5'3" SpO2: 97% Weight: 11/30/2016 Blood Pressure 1: 128/80 Code : 8480-6 BMI: 26.7 Code : 41330-0 Heart Rate 1 : 63 bpm Height: 5'3" SpO2: 96% Weight: 151 lbs 09/28/2016 Blood Pressure 1: 130/80 Code : 8480-6 BMI: 27.1 Code : 13148-6 Heart Rate 1 : 80 bpm Height: 5'3" SpO2: 97% Weight: 153 lbs 07/06/2016 Blood Pressure 1: 162/72 Code : 8480-6 BMI: 27.6 Code : 27254-7 Heart Rate 1 : 72 bpm Height: 5'3" SpO2: 98% Weight: 156 lbs 06/01/2016 Blood Pressure 1: 122/66 Code : 8480-6 BMI: 27.5 Code : 26715-3 Heart Rate 1 : 73 bpm Height: 5'3" SpO2: 98% Weight: 155 lbs 8 oz 02/27/2016 Blood Pressure 1: 126/68 Code : 8480-6 BMI: 26.9 Code : 86491-4 Heart Rate 1 : 70 bpm Height: 5'3" SpO2: 98% Weight: 152 lbs 09/10/2015 Blood Pressure 1: 130/70 Code : 8480-6 BMI: 26.9 Code : 53676-5 Heart Rate 1 : 72 bpm Height: 5'3" SpO2: 97% Weight: 152 lbs 05/14/2015 Blood Pressure 1: 138/82 Code : 8480-6 BMI: 26.4 Code : 60041-7 Heart Rate 1 : 75 bpm Height: 5'3" SpO2: 98% Weight: 149 lbs 02/11/2015 Blood Pressure 1: 128/72 Code : 8480-6 BMI: 25.5 Code : 52486-9 Heart Rate 1 : 73 bpm Height: 5'3" SpO2: 94% Weight: 144 lbs Functional Status No Functional Status data History of Present Illness Symptom Name Status Result Effective Date Notes vertigo Quality constant 04/01/2017 None vertigo Quality [...] Annual Medicare Wellness Exam Hours of Sleep 9-10 12/23/2016 None Annual Medicare Wellness Exam Interaction with [...] data Encounters Encounter Performer Location Codes Date ([id number]) [id number] EST. PATIENT, LEVEL III Diagnosis: Cough[ICD10: R05] Diagnosis: Acute bronchitis due to other specified organisms[ICD10: J20.8] Elen Cortez MD, [facility] CPT-4: 46974 04/01/2017 ([id number]) 93226 EST. PATIENT, LEVEL III Diagnosis: Otalgia, right ear[ICD10: H92.01] Diagnosis: Other allergic rhinitis[ICD10: J30.89] Shiela Cortez MD, [facility] CPT-4: 06358 03/25/2017 ([id number]) 20955 EST. PATIENT, LEVEL III Diagnosis: Benign paroxysmal vertigo, bilateral[ICD10: H81.13] Shiela Cortez MD, [facility] CPT-4: 64535 12/22/2016 ([id number]) 30251 EST. PATIENT, LEVEL IV Diagnosis: Benign paroxysmal vertigo, bilateral[ICD10: H81.13] Diagnosis: Other allergic rhinitis[ICD10: J30.89] Diagnosis: Hypothyroidism, unspecified[ICD10: E03.9] Shiela Cortez MD, [facility] CPT-4: 91765 12/08/2016 ([id number]) 77277 EST. PATIENT, LEVEL IV Diagnosis: Atrophy of thyroid (acquired)[ICD10: E03.4] Diagnosis: Essential (primary) hypertension[ICD10: I10] Diagnosis: Mixed hyperlipidemia[ICD10: E78.2] Elen Cortez MD, [facility] CPT-4: 62110 11/30/2016 [id number] EST. PATIENT, LEVEL IV Diagnosis: Headache[ICD10: R51] Diagnosis: Other fatigue[ICD10: R53.83] Diagnosis: Dizziness and giddiness[ICD10: R42] Bridget Cortez MD, [facility] CPT-4: 78676 09/28/2016 43672 EST. PATIENT, LEVEL IV Diagnosis: Essential (primary) hypertension[ICD10: I10] Diagnosis: Headache[ICD10: R51] Bridget Cortez MD, [facility] CPT-4: 66645 07/06/2016 ([id number]) 96338 EST. PATIENT, LEVEL IV Diagnosis: Essential (primary) hypertension[ICD10: I10] Diagnosis: Atrophy of thyroid (acquired)[ICD10: E03.4] Diagnosis: Mixed hyperlipidemia[ICD10: E78.2] Elen Cortez MD, [facility] CPT-4: 26496 06/01/2016 18004 EST. PATIENT, LEVEL IV Diagnosis: Acute laryngopharyngitis[ICD10: J06.0] Diagnosis: Other allergic rhinitis[ICD10: J30.89] Diagnosis: Other specified hypothyroidism[ICD10: E03.8] Diagnosis: Other fatigue[ICD10: R53.83] Bridget Cortez MD, [facility] CPT-4 : 38668 02/27/2016 ([id number]) 46212 EST. PATIENT, LEVEL III Diagnosis: Essential (primary) hypertension[ICD10: I10] Diagnosis: Mixed hyperlipidemia[ICD10: E78.2] [facility] CPT-4: 55445 09/10/2015 ([id number]) 14685 EST. PATIENT, LEVEL IV Diagnosis: Essential (primary) hypertension[ICD10: I10] Diagnosis: Hypothyroidism, unspecified[ICD10: E03.9] Diagnosis: Unspecified osteoarthritis, unspecified site[ICD10: M19.90] Elen Cortez MD , [facility] CPT-4: 89706 05/14/2015 ([id number]) OFFICE VISIT, NEW - LEVEL 4 Diagnosis: Essential (primary) hypertension[ICD10: I10] Diagnosis: Hypothyroidism, unspecified[ICD10: E03.9] Diagnosis: Unspecified osteoarthritis, unspecified site[ICD10: M19.90] Elen Cortez MD , [facility] CPT-4: 19064 02/11/2015 Plan of Care Planned Activity Notes Codes Status Date Visit Plan: Bronchitis - acute case of bronchitis identified. Pt has been given antibiotics, breathing treatments as appropriate, and pt has been instructed to call if symptoms are not improved, or if symptoms acutely worsen. 04/01/2017 Appointment: Elen Cortez WPtel: [address] [place], [place] [id number] (15 min) Moderate 04/01/2017 Patient Education: Patient [...] allergy spray. 03/25/2017 Appointment: Shiela Srivastava WPtel: [facility]2 [phone] (10 min) Simple 03/25/2017 Appointment: Elen Cortez WPtel: [facility]5 [facility] (15 min) Moderate 03/25/2017 Patient Education: [...] care surrogate. 12/23/2016 Appointment: Bridget Velazco WPtel: [facility]4 [facility] [facility] - Annual Wellness Visit 12/23/2016 Patient Education: Patient Medication Summary Completed 12/23/2016 Visit Plan: Vertigo-discussed PT for vestibular exercises- patient wants to wait since symptoms are improving-continue anti histamine as directed-meclizine as needed 12/22/2016 Appointment: Shiela Srivastava WPtel: [facility]0 [phone] (30 min) Complex 12/22/2016 Patient Education: Patient [...] of control. 12/08/2016 Appointment: Shiela Srivastava WPtel: [facility]6 [phone] (30 min) Complex 12/08/2016 Patient Education: Patient [...] to medications. 11/30/2016 Appointment: Elen Cortez WPtel: [facility]8 [facility] (15 min) Moderate 11/30/2016 Patient Education: [...] changes, questions, or concerns. 09/28/2016 [facility]ment[phone] [facility] (30 min) Complex 09/28/2016 Patient Education: Patient [...] acute concerns. 07/06/2016 Appointment: Bridget Velazco WPtel: [phone] [facility] (15 min) Moderate 07/06/2016 Patient Education: Patient [...] not improving 06/01/2016 Appointment: Elen Cortez WPtel: [phone] [facility] (15 min) Moderate 06/01/2016 Patient Education: Patient [...] check labs 02/27/2016 Appointment: Bridget Velazco WPtel: [phone] [facility] (30 min) Complex 02/27/2016 Patient Education: Patient Medication Summary Completed 02/27/2016 Patient Education: Patient Medication Summary Completed 09/27/2015 Care Plan: SCREENINGMAMMOGRAPHYDIGITAL LOINC : 11144-2 Pending 09/27/2015 Visit Plan: Hypertension - well [...] the colonoscopy 09/10/2015 [phone] [facility] [place] (15 min) Moderate 09/10/2015 Patient Education: Patient [...] Sanchez. 05/14/2015 App[facility]ment: [phone] (15 min) Moderate 05/14/2015 Patient Education: Patient Medication Summary Completed 05/14/2015 Patient Education: Hypertension Completed 05/14/2015 Care Plan: Referral Order SNOMED-CT : [id number] Ordered 05/14/2015 Patient Education: Patient Medication Summary Completed 03/01/2015 Appointment: Nurse Visit 02/28/2015 Patient Education: Patient Medication Summary Completed 02/28/2015 Patient Education: Patient Medication Summary Completed 02/27/2015 Appointment: Nurse Visit 02/26/2015 Patient Education: Patient Medication Summary Completed 02/26/2015 Appointment: Injection 02/25/2015 Patient Education: Patient Medication Summary Completed 02/25/2015 Patient Education: Patient Medication Summary Completed 02/21/2015 Care Plan: URINALYSIS NONAUTO W/O [employer] : 67749-9 Ordered 02/21/2015 Visit Plan: Hypertension - well [...] pain symptoms. 02/11/2015 Appointment: Elen Cortez WPtel[facility] [facility] 02/11/2015 Patient Education: Patient Medication Summary Completed 02/11/2015 Patient Education: Hypertension Completed 02/11/2015 Referral: Dr. Ming Kessler WPtel: Referral Appointment Requested Instructions Comment FLONASE TWICE DAILY KENALOG INJECTION TODAY . [...] in the nasal steroid allergy spray. . URI - Pt advised to increase [...] of control. Fatigue - will check labs increase lisinopril to 20mg twice a day. [...] pt is to call for acute concerns. . Hypertension - well controlled - [...] of her preferred provider for the colonoscopy . Bronchitis - acute case of bronchitis identified. Pt has been given antibiotics, breathing treatments as appropriate, and pt has been instructed to call if symptoms are not improved, or if symptoms acutely worsen. . BPPV - Benign Paroxysmal Positional Vertigo [...] based on previous levels of control. . Hypertension - well controlled - continue [...] assure normal liver response to medications. . Vertigo-discussed PT for vestibular exercises-patient wants to wait since symptoms are improving-continue anti histamine as directed- meclizine as needed . Hypertension - well controlled - continue [...] be started, call if not improving . Medicare Exam - today we discussed [...] tylenol for break through pain symptoms. . Episodes of headache, dizziness, and light [...]
--- OUTSIDE RECORDS SUMMARY | 2018-02-26 12:35 | XMS REPORT | CCD ---
Author Author [facility]en [facility]ez Organization [facility] Address [address] [place] [address] Phone Care Team Providers Care Software Administrator Name Role Phone PP Unavailable CCM Unavailable Summary Purpose Interface Exchange Insurance Providers Payer name Policy type / Coverage type Covered democrat ID Effective Begin Date Effective End Date WPS Medicare Part B Medicare Part B [id number] Unknown [employer] Insurance Medicare Part B [id number] Unknown Family history Mother Diagnosis Age At [...] spouses - 02/11/[address]: 964803970 Never smoker 02/11/2015 Alcohol history Unknown occasionally drinks alcohol 02/11/2015 Allergies, Adverse Reactions, Alerts Substance Reaction Codes Entered Date Inactivated Date Status ciprofloxacin rash RxNorm: 03544 02/26/2015 No Inactive Date Active Past Medical [...] Start Date Stop Date Status Fill Instructions cetirizine 10 mg tablet RxNorm: 8111010 1 Tablet(s) PO daily 12/12/2017 Active Zithromax Z-Russell 250 mg capsule RxNorm: 984263 1 Capsule(s) PO 04/02/2017 04/05/2017 Inactive Zithromax Z-Russell 250 mg tablet RxNorm: 599579 1 Tablet(s) PO 04/01/2017 Inactive Zithromax Z-Russell 250 mg capsule RxNorm: 777075 1 Capsule(s) PO 04/02/2017 04/01/2017 Inactive Zithromax Z-Russell 250 mg tablet RxNorm: 424386 1 Tablet(s) PO 04/06/2017 Inactive Ventolin HFA 90 mcg/actuation aerosol inhaler RxNorm: 608679 2 INH QID as needed - for the first 3 days inhale at least two puffs three times daily, then use as needed for shortness of breath 04/01/2017 04/30/2017 Inactive Keflex 500 mg capsule RxNorm: 432132 1 Capsule(s) PO TID 201604/01/2017 Inactive meclizine 25 mg tablet RxNorm: 595516 1 Tablet(s) PO Q6 PRN 1 Tablet(s) PO Q6 PRN 03/25/2017 No Stop Date Active dizziness meclizine 25 mg tablet RxNorm: 096299 Tablet(s) 1 Tablet(s) PO Q6 PRN 03/25/2017 03/24/2017 Inactive dizziness Kenalog 40 mg/mL suspension for injection RxNorm: 8589655 1 Milliliter(s) Inj 03/25/2017 03/25/2017 Inactive meclizine 25 mg tablet RxNorm: 467850 1 Tablet(s) PO Q6 PRN 03/24/2017 Inactive dizziness lisinopril 20 mg tablet RxNorm: 691161 1 Tablet(s) PO BID 01/1506/13/2017 Active metoprolol succinate ER 50 mg tablet,extended release 24 hr RxNorm: 568751 TAKE 1 TABLET BY MOUTH DAILY 01/07/20172017 Active Generic For:TOPROL XL 50MG TAB 01/07/2017 12:38:23 PM Synthroid 88 mcg tablet RxNorm: 735358 TAKE 1 TABLET BY MOUTH DAILY 12/25/2016 05/23/2017 Active 12/25/2016 9:47:08 AM Zithromax Z-Russell 250 mg tablet RxNorm: 064733 Tablet(s) PO UD 03/24/2017 Inactive meclizine 25 mg tablet RxNorm: 661348 1 Tablet(s) PO Q6 PRN 12/20/2016 Inactive dizziness Kenalog 40 mg/mL suspension for injection RxNorm: 3575780 Milliliter(s) Inj 12/08/2016 12/08/2016 Inactive meloxicam 15 mg tablet RxNorm: 635829 1 Tablet(s) PO daily 12/20/2016 Inactive cetirizine 10 mg tablet RxNorm: 0624999 1 Tablet(s) PO daily 05/16/2017 Inactive pravastatin 40 mg tablet RxNorm: 643883 1 Tablet(s) PO BID 07/201608/14/2017 Active Cancel 80 mg tab lisinopril 20 mg tablet RxNorm: 787457 1 Tablet(s) PO BID 08/1212/22/2016 Inactive Synthroid 88 mcg tablet RxNorm: 559658 1 Tablet(s) PO TAKE ONE (1) TABLET BY MOUTH DAILY 07/28/2016 12/24/2016 Inactive decrease dose hydralazine 25 mg tablet RxNorm: 217026 1 Tablet(s) PO TID as needed for Systolic blood pressure over 170 07/06/20162016 Inactive lisinopril 20 mg tablet RxNorm: 462506 1 Tablet(s) PO BID to replace your other lisinopril dose 07/06/2016 08/04/2016 Inactive lisinopril 10 mg tablet RxNorm: 512005 TAKE ONE TABLET BY MOUTH TWICE DAILY 06/10/2016 08/11/2016 Inactive Generic For:ZESTRIL 10 MG TABLET 06/09/2016 12:58: 50 PM triamcinolone acetonide 0.1 % topical cream RxNorm: 4375482 1 Application TOP TID as needed 06/01/2016 No Stop Date Active nystatin 100,000 unit/gram topical cream RxNorm: 726044 1 Gram(s) TOP TID as needed 06/01/2016 No Stop Date Active metoprolol succinate ER 50 mg tablet,extended release 24 hr RxNorm: 437790 1 Tablet(s) PO daily 05/26/2016 12/21/2016 Inactive cetirizine 10 mg tablet RxNorm: 9351623 1 Tablet(s) PO daily 10/18/2016 Inactive Synthroid 88 mcg tablet RxNorm: 409234 1 Tablet(s) PO TAKE ONE (1) TABLET BY MOUTH DAILY 03/06/2016 08/02/2016 Inactive Brand name only! Synthroid 88 mcg tablet RxNorm: 105873 1 Tablet(s) PO TAKE ONE (1) TABLET BY MOUTH DAILY 03/04/2016 03/05/2016 Inactive decrease dose cetirizine 10 mg tablet RxNorm: 1227404 1 Tablet(s) PO daily 03/22/2016 Inactive amoxicillin 500 mg capsule RxNorm: 247952 1 Capsule(s) PO TID 02/27/2016 03/04/2016 Inactive lisinopril 10 mg tablet RxNorm: 441775 TAKE ONE TABLET BY MOUTH TWICE DAILY 02/06/2016 06/04/2016 Inactive Generic For:ZESTRIL 10 MG TABLET 02/06/2016 12:16: 38 PM Synthroid 100 mcg tablet RxNorm: 416757 TAKE ONE (1) TABLET BY MOUTH DAILY 01/03/2016 03/03/2016 Inactive 01/03/2016 10:35:14 AM N O T I C E Last quantity doesn't match original quantity lisinopril 10 mg tablet RxNorm: 496346 1 Tablet(s) PO BID 10/0301/31/2016 Inactive Synthroid 100 mcg tablet RxNorm: 747089 1 Tablet(s) PO daily 01/02/2016 Inactive metoprolol succinate ER 50 mg tablet,extended release 24 hr RxNorm: 924184 1 Tablet(s) PO daily 10/04/2015 04/30/2016 Inactive Tylenol Arthritis 650 mg tablet,extended release RxNorm: 5358781 2 Tablet(s) PO TID 09/10/2015 No Stop Date Active metoprolol succinate ER 50 mg tablet,extended release 24 hr RxNorm: 466115 1 Tablet(s) PO daily 09/05/2015 10/03/2015 Inactive pravastatin 80 mg tablet RxNorm: 013591 1 Tablet(s) PO QHS 08/30/2015 Inactive pravastatin 40 mg tablet RxNorm: 938658 1 Tablet(s) PO BID 08/29/2015 Inactive Cancel 80 mg tab pravastatin 40 mg tablet RxNorm: 833343 1 Tablet(s) PO BID 08/19/2016 Inactive Cancel 80 mg tab lisinopril 10 mg tablet RxNorm: 769400 1 Tablet(s) PO BID 06/1308/11/2016 Inactive lisinopril 10 mg tablet RxNorm: 639861 1 Tablet(s) PO BID 06/1310/03/2015 Inactive Synthroid 100 mcg tablet RxNorm: 146586 1 Tablet(s) PO daily 10/03/2015 Inactive ceftriaxone 1 gram solution for injection RxNorm: 6231209 Inj 03/01/2015 03/01/2015 Inactive ceftriaxone 1 gram solution for injection RxNorm: 7681292 Inj 02/28/2015 02/28/2015 Inactive ceftriaxone 1 gram solution for injection RxNorm: 2274549 Inj 02/27/2015 02/27/2015 Inactive ceftriaxone 1 gram solution for injection RxNorm: 1144596 Inj 02/26/2015 02/26/2015 Inactive ceftriaxone 1 gram solution for injection RxNorm: 7137348 Inj 02/25/2015 02/25/2015 Inactive phenazopyridine 200 mg tablet RxNorm: 7497509 1 Tablet(s) PO Q8 02/21/2015 02/20/2015 Inactive Cipro 500 mg tablet RxNorm: 296576 1 Tablet(s) PO BID 201402/20/2015 Inactive phenazopyridine 200 mg tablet RxNorm: 9855702 1 Tablet(s) PO Q8 02/21/2015 02/25/2015 Inactive Cipro 500 mg tablet RxNorm: 594996 1 Tablet(s) PO BID 201402/27/2015 Inactive lisinopril 10 mg tablet RxNorm: 281500 1 Tablet(s) PO BID 02/1406/12/2015 Inactive metoprolol succinate ER 50 mg tablet,extended release 24 hr RxNorm: 257394 3/4 Tablet(s) PO daily 02/11/2015 09/04/2015 Inactive Voltaren 1 % topical gel RxNorm: 811321 2 Gram(s) TOP QID use this on affected joints up to four times daily. 02/11/2015 03/12/2015 Inactive Probiotic oral RxNorm : 6205 oral No Start Date Active aspirin 81 mg tablet RxNorm: 256702 1 Tablet(s) PO daily No Start Date Active Super B-Complex tablet RxNorm: 1 Tablet(s) PO No Start Date Active Super-D3+ oral RxNorm : oral No Start Date Active lisinopril 40 mg tablet RxNorm: 962528 1 Tablet(s) PO BID No Start Date Active Prilosec OTC 20 mg tablet,delayed release RxNorm: 994345 2 Tablet(s) PO QAM No Start Date Active Flonase Allergy Relief 50 mcg/actuation nasal spray, suspension RxNorm: 4520464 1 [place] NASAL as needed No Start Date Active Move Free Ultra 40 mg-10 mg-3.3 mg tablet RxNorm: 1 Tablet(s) PO daily No Start Date Active metoprolol tartrate 50 mg tablet RxNorm: 141852 1 Tablet(s) PO daily No Start Date 02/10/2015 Inactive lisinopril 10 mg tablet RxNorm: 396969 1 Tablet(s) PO BID No Start Date 02/13/2015 Inactive pravastatin 80 mg tablet RxNorm: 325900 1 Tablet(s) PO daily No Start Date 08/29/2015 Inactive Synthroid 100 mcg tablet RxNorm: 395650 1 Tablet(s) PO daily No Start Date 06/09/2015 Inactive Tylenol Arthritis 650 mg tablet,extended release RxNorm: 3735719 4 Tablet(s) PO daily No Start Date 09/09/2015 Inactive Medication Administered Medication Codes Instructions Start Date Status Kenalog 40 mg/mL suspension for injection RxNorm: 3021307 1Milliliter 03/25/2017 No longer Active Kenalog 40 mg/mL suspension for injection RxNorm: 3664652 Milliliter 12/08/2016 No longer Active ceftriaxone 1 gram solution for injection RxNorm: 2665231 03/01/2015 No longer Active ceftriaxone 1 gram solution for injection RxNorm: 4386969 02/28/2015 No longer Active ceftriaxone 1 gram solution for injection RxNorm: 4713185 02/27/2015 No longer Active ceftriaxone 1 gram solution for injection RxNorm: 8453253 02/26/2015 No longer Active ceftriaxone 1 gram solution for injection RxNorm: 0931845 02/25/2015 No longer Active Immunizations Vaccine Codes [...] Code Item Item Code Result Date %Hba1C Cdt313 % HbA1c 95398-0 6.0 % 12/10/2016 %Hba1C Hvj246 Gluc Ave 126 mg/dL 12/10/2016 Comp Metabolic Awt275 NA 138 mEq/L 12/09/2016 Comp Metabolic Boj332 K 5.2 mEq/L 12/09/2016 Comp Metabolic Xit463 CL 104 mEq/L 12/09/2016 Comp Metabolic Vze186 CO2 29.0 mEq/L 12/09/2016 Comp Metabolic Bvj996 ANION GAP 10 12/09/2016 Comp Metabolic Twu548 GLUCOSE 135 mg/dL 12/09/2016 Comp Metabolic Kas091 Creat 0.8 mg/dL 12/09/2016 Comp Metabolic Xew515 eGFR 79 ml/min/1.73m2 12/09/2016 Comp Metabolic Oun788 BUN 18 mg/dL 12/09/2016 Comp Metabolic Ohy202 B/C Ratio 23.7 Ratio 12/09/2016 Comp Metabolic Oto406 CALCIUM 9.5 mg/dL 12/09/2016 Comp Metabolic Xdf791 ALK PHOS 73 U/L 12/09/2016 Comp Metabolic Ryn176 AST(SGOT) 24 U/L 12/09/2016 Comp Metabolic Iog800 ALT(SGPT) 20 U/L 12/09/2016 Comp Metabolic Cin868 BILI T 0.3 mg/dL 12/09/2016 Comp Metabolic Lop746 ALBUMIN 4.3 g/dL 12/09/2016 Comp Metabolic Bot673 TPRO 6.4 g/dL 12/09/2016 Comp Metabolic Fwn307 GLOB 2.1 g/dL 12/09/2016 Comp Metabolic Eka402 A/G Ratio 2.0 Ratio 12/09/2016 Comp Metabolic Loc698 Osmo 280 mOsmo 12/09/2016 Free T4 Ehs542 FREE T4 0.99 ng/dL 12/09/2016 Cbc With Differential Ord2 WBC 8.96 [...] 31.3 pg 12/09/2016 Cbc With Differential Ord2 [place]% 6.5 % 12/09/2016 Cbc With Differential Ord2 [...] 1.84 K/ul 12/09/2016 Cbc With Differential Ord2 [place] ABS# 0.6 K/ul 12/09/2016 Cbc With Differential Ord2 Eos ABS# 0.1 K/ul 12/09/2016 Cbc With Differential Ord2 Baso ABS# 0.1 K/ul 12/09/2016 Tsh Ord6 hTSH II 0.89 uIU/mL 12/09/2016 Free T4 Ydd006 FREE T4 0.97 ng/dL 09/02/2016 Tsh Ord6 hTSH II 1.19 uIU/mL 09/02/2016 Comp Metabolic Vvg738 NA 137 mEq/L 06/01/2016 Comp Metabolic Swr785 K 4.1 mEq/L 06/01/2016 Comp Metabolic Ipi490 CL 104 mEq/L 06/01/2016 Comp Metabolic Prp448 CO2 25.0 mEq/L 06/01/2016 Comp Metabolic Nor289 ANION GAP 12 06/01/2016 Comp Metabolic Tmf175 GLUCOSE 108 mg/dL 06/01/2016 Comp Metabolic Lbq341 Creat 0.8 mg/dL 06/01/2016 Comp Metabolic Oft310 eGFR 80 ml/min/1.73m2 06/01/2016 Comp Metabolic Tqo193 BUN 15 mg/dL 06/01/2016 Comp Metabolic Ghn690 B/C Ratio 20.0 Ratio 06/01/2016 Comp Metabolic Nuf856 CALCIUM 9.1 mg/dL 06/01/2016 Comp Metabolic Xcp589 ALK PHOS 89 U/L 06/01/2016 Comp Metabolic Jox904 AST(SGOT) 25 U/L 06/01/2016 Comp Metabolic Wfu128 ALT(SGPT) 20 U/L 06/01/2016 Comp Metabolic Mmf060 BILI T 0.3 mg/dL 06/01/2016 Comp Metabolic Hyb410 ALBUMIN 4.2 g/dL 06/01/2016 Comp Metabolic Asj192 TPRO 6.2 g/dL 06/01/2016 Comp Metabolic Yrl799 GLOB 2.0 g/dL 06/01/2016 Comp Metabolic Jup315 A/G Ratio 2.1 Ratio 06/01/2016 Comp Metabolic Owt466 Osmo 275 mOsmo 06/01/2016 Free T4 Dgt281 FREE T4 0.94 ng/dL 06/01/2016 Tsh Ord6 [...] 31.1 pg 06/01/2016 Cbc With Differential Ord2 [place]% 8.4 % 06/01/2016 Cbc With Differential Ord2 [...] 2.96 K/ul 06/01/2016 Cbc With Differential Ord2 [place] ABS# 0.6 K/ul 06/01/2016 Cbc With Differential Ord2 Eos ABS# 0.3 K/ul 06/01/2016 Cbc With Differential Ord2 Baso ABS# 0.1 K/ul 06/01/2016 Tsh Ord6 hTSH II 0.18 uIU/mL 02/27/2016 Free T4 Wvj193 FREE T4 1.17 ng/dL 02/27/2016 Comp Metabolic Ucu784 NA 135 mEq/L 02/27/2016 Comp Metabolic Veh575 K 5.2 mEq/L 02/27/2016 Comp Metabolic Sqp983 CL 102 mEq/L 02/27/2016 Comp Metabolic Sne751 CO2 27.0 mEq/L 02/27/2016 Comp Metabolic Pry111 ANION GAP 11 02/27/2016 Comp Metabolic Vjs673 GLUCOSE 93 mg/dL 02/27/2016 Comp Metabolic Gnq140 Creat 0.7 mg/dL 02/27/2016 Comp Metabolic Cxk125 eGFR 91 ml/min/1.73m2 02/27/2016 Comp Metabolic Lkt411 BUN 14 mg/dL 02/27/2016 Comp Metabolic Xoj071 B/C Ratio 20.9 Ratio 02/27/2016 Comp Metabolic Tqo448 CALCIUM 9.4 mg/dL 02/27/2016 Comp Metabolic Dcq495 ALK PHOS 100 U/L 02/27/2016 Comp Metabolic Jxm648 AST(SGOT) 23 U/L 02/27/2016 Comp Metabolic Ftl814 ALT(SGPT) 24 U/L 02/27/2016 Comp Metabolic Vcb163 BILI T 0.2 mg/dL 02/27/2016 Comp Metabolic Tgx853 ALBUMIN 4.3 g/dL 02/27/2016 Comp Metabolic Fzd457 TPRO 6.3 g/dL 02/27/2016 Comp Metabolic Kyt595 GLOB 2.1 g/dL 02/27/2016 Comp Metabolic Pnz362 A/G Ratio 2.1 Ratio 02/27/2016 Comp Metabolic Qqk952 Osmo 270 mOsmo 02/27/2016 Cbc With Differential Ord2 WBC 8.50 K/ul [...] 31.3 pg 02/27/2016 Cbc With Differential Ord2 [place]% 10.0 % 02/27/2016 Cbc With Differential Ord2 [...] 2.28 K/ul 02/27/2016 Cbc With Differential Ord2 [place] ABS# 0.9 K/ul 02/27/2016 Cbc With Differential Ord2 Eos ABS# 0.3 K/ul 02/27/2016 Cbc With Differential Ord2 Baso ABS# 0.1 K/ul 02/27/2016 Free T4 Xhu378 FREE T4 1.03 ng/dL 05/10/2015 Tsh Ord6 hTSH II 0.59 uIU/mL 05/10/2015 Lipid Ord30 CHOL 147 mg/dL 05/10/2015 Lipid Ord30 HDL 39.0 mg/dl 05/10/2015 Lipid Ord30 TRIG 149 mg/dL 05/10/2015 Lipid Ord30 LDL 78 mg/dL 05/10/2015 Lipid Ord30 C/HDL 3.8 Ratio 05/10/2015 Cbc With Differential Ord2 WBC 5.77 [...] 29.4 pg 05/10/2015 Cbc With Differential Ord2 [place]% 9.0 % 05/10/2015 Cbc With Differential Ord2 [...] 2.14 K/ul 05/10/2015 Cbc With Differential Ord2 [place] ABS# 0.5 K/ul 05/10/2015 Cbc With Differential Ord2 Eos ABS# 0.3 K/ul 05/10/2015 Cbc With Differential Ord2 Baso ABS# 0.1 K/ul 05/10/2015 Cbc With Differential Ord2 New Analyzer Notice Please note new ref ranges starting 05-01-2015 due to implemntation of new five part differential hematolgy analyzer. 05/10/2015 Comp Metabolic Emn122 NA 137 mEq/L 05/10/2015 Comp Metabolic Alu327 K 4.4 mEq/L 05/10/2015 Comp Metabolic Dzx383 CL 102 mEq/L 05/10/2015 Comp Metabolic Gst137 CO2 28.0 mEq/L 05/10/2015 Comp Metabolic Bpe635 ANION GAP 11 05/10/2015 Comp Metabolic Iwe912 GLUCOSE 108 mg/dL 05/10/2015 Comp Metabolic Azg251 Creat 0.7 mg/dL 05/10/2015 Comp Metabolic Yik388 eGFR 86 ml/min/1.73m2 05/10/2015 Comp Metabolic Oah213 BUN 13 mg/dL 05/10/2015 Comp Metabolic Gvl022 B/C Ratio 18.3 Ratio 05/10/2015 Comp Metabolic Tmd297 CALCIUM 9.4 mg/dL 05/10/2015 Comp Metabolic Cni367 ALK PHOS 94 U/L 05/10/2015 Comp Metabolic Rhe834 AST(SGOT) 22 U/L 05/10/2015 Comp Metabolic Gfb547 ALT(SGPT) 21 U/L 05/10/2015 Comp Metabolic Wiq826 BILI T 0.3 mg/dL 05/10/2015 Comp Metabolic Qgw033 ALBUMIN 3.9 g/dL 05/10/2015 Comp Metabolic Dtz675 TPRO 6.1 g/dL 05/10/2015 Comp Metabolic Qql578 GLOB 2.2 g/dL 05/10/2015 Comp Metabolic Pbj980 A/G Ratio 1.7 Ratio 05/10/2015 Comp Metabolic Evf650 Osmo 274 mOsmo 05/10/2015 Culture Urine [id number] URINE CULTURE SEE NOTES 02/25/2015 Culture Urine [id number] Continued Results 02/25/2015 Urine Culture Ucult Complete >100,000 col/ml aerobic growth sent to ref lab 02/22/2015 Tsh Ord6 hTSH II 0.51 uIU/mL 02/11/2015 Free T4 Khn773 FREE T4 1.16 ng/dL 02/11/2015 Review of Systems System Result Effective [...] -4: G0439 12/23/2016 THER/PROPH/DIAG INJ SC/IM CPT-4: 85479 12/08/2016 TRIAMCINOLONE ACET INJ NOS CPT-4: J3301 12/08/2016 PRESCRIP TRANSMIT VIA ERX SY CPT-4: G8553 12/08/2016 PRESCRIP TRANSMIT VIA ERX SY CPT-4: G8553 11/30/2016 URINALYSIS NONAUTO W/O SCOPE CPT-4: 35962 07/08/2016 PRESCRIP TRANSMIT VIA ERX SY CPT-4: G8553 06/01/2016 PRESCRIP TRANSMIT VIA ERX SY CPT-4: G8553 02/27/2016 THER/PROPH/DIAG INJ SC/IM CPT-4: 89587 03/01/2015 ROCEPHIN, PER 250 MG CPT-4: J0696 03/01/2015 THER/PROPH/DIAG INJ SC/IM CPT-4: 95552 02/28/2015 ROCEPHIN, PER 250 MG CPT-4: J0696 02/28/2015 THER/PROPH/DIAG INJ SC/IM CPT-4: 04307 02/27/2015 ROCEPHIN, PER 250 MG CPT-4: J0696 02/27/2015 THER/PROPH/DIAG INJ SC/IM CPT-4: 69793 02/26/2015 ROCEPHIN, PER 250 MG CPT-4: J0696 02/26/2015 THER/PROPH/DIAG INJ SC/IM CPT-4: 84433 02/25/2015 ROCEPHIN, PER 250 MG CPT-4: J0696 02/25/2015 URINALYSIS NONAUTO W/O SCOPE CPT-4: 39035 02/21/2015 Vital Signs Date Vital 04/01/2017 Blood Pressure 1: 144/82 Code : 8480-6 Heart Rate 1: 68 bpm Height: 5'3" SpO2: 97% Weight: 03/25/2017 Blood Pressure 1: 116/70 Code : 8480-6 BMI: 26.7 Code : 38628-0 Heart Rate 1 : 67 bpm Height: 5'3" SpO2: 98% Weight: 151 lbs 12/23/2016 BMI: 26.7 Code: 33531-0 Height: 5'3" Weight: 151 lbs 12/22/2016 Blood Pressure 1: 142/60 Code : 8480-6 BMI: 26.7 Code : 24674-7 Heart Rate 1 : 67 bpm Height: 5'3" SpO2: 98% Weight: 151 lbs 12/08/2016 Blood Pressure 1: 140/72 Code : 8480-6 Heart Rate 1: 72 bpm Height: 5'3" SpO2: 97% Weight: 11/30/2016 Blood Pressure 1: 128/80 Code : 8480-6 BMI: 26.7 Code : 49982-8 Heart Rate 1 : 63 bpm Height: 5'3" SpO2: 96% Weight: 151 lbs 09/28/2016 Blood Pressure 1: 130/80 Code : 8480-6 BMI: 27.1 Code : 64530-6 Heart Rate 1 : 80 bpm Height: 5'3" SpO2: 97% Weight: 153 lbs 07/06/2016 Blood Pressure 1: 162/72 Code : 8480-6 BMI: 27.6 Code : 93593-0 Heart Rate 1 : 72 bpm Height: 5'3" SpO2: 98% Weight: 156 lbs 06/01/2016 Blood Pressure 1: 122/66 Code : 8480-6 BMI: 27.5 Code : 08862-5 Heart Rate 1 : 73 bpm Height: 5'3" SpO2: 98% Weight: 155 lbs 8 oz 02/27/2016 Blood Pressure 1: 126/68 Code : 8480-6 BMI: 26.9 Code : 80576-8 Heart Rate 1 : 70 bpm Height: 5'3" SpO2: 98% Weight: 152 lbs 09/10/2015 Blood Pressure 1: 130/70 Code : 8480-6 BMI: 26.9 Code : 17989-2 Heart Rate 1 : 72 bpm Height: 5'3" SpO2: 97% Weight: 152 lbs 05/14/2015 Blood Pressure 1: 138/82 Code : 8480-6 BMI: 26.4 Code : 83761-6 Heart Rate 1 : 75 bpm Height: 5'3" SpO2: 98% Weight: 149 lbs 02/11/2015 Blood Pressure 1: 128/72 Code : 8480-6 BMI: 25.5 Code : 22276-3 Heart Rate 1 : 73 bpm Height: [...] data Encounters Encounter Performer Location Codes Date ([id number]) [id number] EST. PATIENT, LEVEL III Diagnosis: Cough[ICD10: R05] Diagnosis: Acute bronchitis due to other specified organisms[ICD10: J20.8] Elen Cortez MD, [facility] CPT-4: 53027 04/01/2017 ([id number]) 45366 EST. PATIENT, LEVEL III Diagnosis: Otalgia, right ear[ICD10: H92.01] Diagnosis: Other allergic rhinitis[ICD10: J30.89] Shiela Cortez MD, [facility] CPT-4: 84815 03/25/2017 ([id number]) 65790 EST. PATIENT, LEVEL III Diagnosis: Benign paroxysmal vertigo, bilateral[ICD10: H81.13] Shiela Cortez MD, [facility] CPT-4: 60488 12/22/2016 ([id number]) 88149 EST. PATIENT, LEVEL IV Diagnosis: Benign paroxysmal vertigo, bilateral[ICD10: H81.13] Diagnosis: Other allergic rhinitis[ICD10: J30.89] Diagnosis: Hypothyroidism, unspecified[ICD10: E03.9] Shiela Cortez MD, [facility] CPT-4: 55775 12/08/2016 ([id number]) 49785 EST. PATIENT, LEVEL IV Diagnosis: Atrophy of thyroid (acquired)[ICD10: E03.4] Diagnosis: Essential (primary) hypertension[ICD10: I10] Diagnosis: Mixed hyperlipidemia[ICD10: E78.2] Elen Cortez MD, [facility] CPT-4: 54944 11/30/2016 [id number] EST. PATIENT, LEVEL IV Diagnosis: Headache[ICD10: R51] Diagnosis: Other fatigue[ICD10: R53.83] Diagnosis: Dizziness and giddiness[ICD10: R42] Bridget Cortez MD, [facility] CPT-4: 37435 09/28/2016 [id number] EST. PATIENT, LEVEL IV Diagnosis: Essential (primary) hypertension[ICD10: I10] Diagnosis: Headache[ICD10: R51] Bridget Cortez MD, [facility] CPT-4: 53692 07/06/2016 ([id number]) 17934 EST. PATIENT, LEVEL IV Diagnosis: Essential (primary) hypertension[ICD10: I10] Diagnosis: Atrophy of thyroid (acquired)[ICD10: E03.4] Diagnosis: Mixed hyperlipidemia[ICD10: E78.2] Elen Cortez MD, [facility] CPT-4: 70984 06/01/2016 [id number] EST. PATIENT, LEVEL IV Diagnosis: Acute laryngopharyngitis[ICD10: J06.0] Diagnosis: Other allergic rhinitis[ICD10: J30.89] Diagnosis: Other specified hypothyroidism[ICD10: E03.8] Diagnosis: Other fatigue[ICD10: R53.83] Bridget Cortez MD, [facility] CPT-4 : 14875 02/27/2016 ([id number]) 24358 EST. PATIENT, LEVEL III Diagnosis: Essential (primary) hypertension[ICD10: I10] Diagnosis: Mixed hyperlipidemia[ICD10: E78.2] Elen Cortez MD, [facility] CPT-4: 30170 09/10/2015 ([id number]) 83189 EST. PATIENT, LEVEL IV Diagnosis: Essential (primary) hypertension[ICD10: I10] Diagnosis: Hypothyroidism, unspecified[ICD10: E03.9] Diagnosis: Unspecified osteoarthritis, unspecified site[ICD10: M19.90] Elen Cortez MD , [facility] CPT-4: 36190 05/14/2015 ([id number]) OFFICE VISIT, NEW - LEVEL 4 Diagnosis: Essential (primary) hypertension[ICD10: I10] Diagnosis: Hypothyroidism, unspecified[ICD10: E03.9] Diagnosis: Unspecified osteoarthritis, unspecified site[ICD10: M19.90] Elen Cortez MD , [facility] CPT-4: 77583 02/11/2015 Plan of Care Planned Activity Notes Codes Status Date Visit Plan: Bronchitis - acute case of bronchitis identified. Pt has been given antibiotics, breathing treatments as appropriate, and pt has been instructed to call if symptoms are not improved, or if symptoms acutely worsen. 04/01/2017 Appointment: Elen Cortez WPtel: [address] [place] [address] (15 min) Moderate 04/01/2017 Patient Education: Patient [...] allergy spray. 03/25/2017 Appointment: Shiela Srivastava WPtel: [address] [place], [place] [phone] (10 min) Simple 03/25/2017 Appointment: Elen Cortez WPtel: [id number] (15 min) Moderate 03/25/2017 Patient Education: Patient [...] paperwork for health care surrogate. 12/23/2016 Appointment: Brigdet Velazco WPtel: [facility] [place] [address] - Annual Wellness Visit 12/23/2016 Patient Education: Patient Medication Summary Completed 12/23/2016 Visit Plan: Vertigo-discussed PT for vestibular exercises- patient wants to wait since symptoms are improving-continue anti histamine as directed-meclizine as needed 12/22/2016 Appointment: Shiela Srivastava WPtel: [phone] (30 min) Complex 12/22/2016 Patient Education: Patient [...] of control. 12/08/2016 Appointment: Shiela Srivastava WPtel: [phone] [phone] (30 min) Complex 12/08/2016 Patient Education: Patient [...] to medications. 11/30/2016 [facility] (15 min) Moderate 11/30/2016 Patient Education: Patient [...] or concerns. 09/28/2016 Appointment: Bridget Velazcotel: [phone] [facility] (30 min) Complex 09/28/2016 Patient Education: Patient [...] concerns. 07/06/2016 App[facility]ment[phone] ([facility] min) Moderate 07/06/2016 Patient Education: [...] not improving 06/01/2016 Appointment: Elen Cortez WPtel: [phone] [id number] (15 min) Moderate 06/01/2016 Patient Education: Patient [...] check labs 02/27/2016 Appointment: Bridget Velazco WPtel: [facility] (30 min) Complex 02/27/2016 Patient Education: Patient Medication Summary Completed 02/27/2016 Patient Education: Patient Medication Summary Completed 09/27/2015 Care Plan: SCREENINGMAMMOGRAPHYDIGITAL LOINC : 31033-7 Pending 09/27/2015 Visit Plan: Hypertension - well [...] colonoscopy 09/10/2015 App[facility]ment[phone] ([facility] min) Moderate 09/10/2015 Patient Education: Patient [...] Sanchez. 05/14/2015 App[facility]ment: [facility] Cort[phone] (15 min) Moderate 05/14/2015 Patient Education: Patient Medication Summary Completed 05/14/2015 Patient Education: Hypertension Completed 05/14/2015 Care Plan: Referral Order SNOMED-CT : [id number] Ordered 05/14/2015 Patient Education: Patient Medication Summary Completed 03/01/2015 Appointment: Nurse Visit 02/28/2015 Patient Education: Patient Medication Summary Completed 02/28/2015 Patient Education: Patient Medication Summary Completed 02/27/2015 Appointment: Nurse Visit 02/26/2015 Patient Education: Patient Medication Summary Completed 02/26/2015 Appointment: Injection 02/25/2015 Patient Education: Patient Medication Summary Completed 02/25/2015 Patient Education: Patient Medication Summary Completed 02/21/2015 Care Plan: URINALYSIS NONAUTO W/O SCOPE LOINC : [id number] Ordered 02/21/2015 Visit Plan: Hypertension - well [...] pain symptoms. 02/11/2015 Appointment: Elen Cortez WPtel: [address] [place], [place] [id number] New Patient 02/11/2015 Patient Education: Patient Medication Summary Completed 02/11/2015 Patient Education: Hypertension Completed 02/11/2015 Referral: Dr. Ming Kessler WPtel: Referral Appointment Requested Instructions Comment . Hypertension - well controlled - continue [...] tylenol for break through pain symptoms. . Hypertension - well controlled - continue [...] following orthopedic surgeon - Dr. Sanchez. . Medicare Exam - today we discussed [...] be started, call if not improving . Vertigo-discussed PT for vestibular exercises-patient wants [...] is to call for acute concerns. . URI - Pt advised to increase [...] in the nasal steroid allergy spray. . Episodes of headache, dizziness, and light [...]
--- OUTSIDE RECORDS SUMMARY | 2018-02-26 12:35 | XMS REPORT | Continuity of Care Document ---
Author Author [facility] Organization [facility] Address Unknown Phone Unavailable Allergies Active Description Code Type Severity Reaction Onset Reported/Identified Relationship to Patient Clinical Status Yes Sulfa (Sulfonamide Antibiotics) [id number] Drug Allergy Unknown N/A 2014 Medications There is no data. Problems Date Dx Coded Attending Type Code Diagnosis Diagnosed By 03/18/1311 SONIYA PATEL, MACIEL Umanzor Ot M17.0 BILATERAL PRIMARY OSTEOARTHRITIS OF KNEE 12/04/2014 FANI HOLT MD Ot 401.9 HYPERTENSION NOS 12/04/2014 FANI HOLT MD Ot 785.1 PALPITATIONS 12/04/2014 FANI HOLT MD Ot 787.91 DIARRHEA 12/04/2014 FANI HOLT MD Ot V58.69 OT MED,LT,CURRENT USE 09/25/2015 MACIEL BYRNES MD Ot M17.0 BILATERAL PRIMARY OSTEOARTHRITIS OF KNEE 10/16/2015 JERILYN NOBLE MD Ot Z01.818 ENCOUNTER FOR OTHER PREPROCEDURAL EXAMIN 10/16/2015 JERILYN NOBLE MD Ot Z12.11 ENCOUNTER FOR SCREENING FOR MALIGNANT NE 10/17/2015 JERILYN NOBLE MD Ot Z01.818 ENCOUNTER FOR OTHER PREPROCEDURAL EXAMIN 10/17/2015 JERILYN NOBLE MD Ot Z12.11 ENCOUNTER FOR SCREENING FOR MALIGNANT NE 10/18/2015 JERILYN NOBLE MD Ot K57.30 DVRTCLOS OF LG INT W/O PERFORATION OR AB 10/18/2015 JERILYN NOBLE MD Ot Z12.11 ENCOUNTER FOR SCREENING FOR MALIGNANT NE 10/18/2015 JERILYN NOBLE MD Ot Z80.0 FAMILY HISTORY OF MALIGNANT NEOPLASM OF 11/07/2015 JERILYN NOBLE MD Ot K57.30 DVRTCLOS OF LG INT W/O PERFORATION OR AB 11/07/2015 JERILYN NOBLE MD Ot Z12.11 ENCOUNTER FOR SCREENING FOR MALIGNANT NE 11/07/2015 JERILYN NOBLE MD, Ot Z80.0 FAMILY HISTORY OF MALIGNANT NEOPLASM OF 09/30/2016 NAKUL GONZALEZ LEGAL JOB TITLES Ot G45.9 TRANSIENT CEREBRAL ISCHEMIC ATTACK, [facility] 09/30/2016 NAKUL GONZALEZ LEGAL JOB TITLES Ot G45.9 TRANSIENT CEREBRAL ISCHEMIC ATTACK, [facility] 09/30/2016 NAKUL GONZALEZ LEGAL JOB TITLES Ot G45.9 TRANSIENT CEREBRAL ISCHEMIC ATTACK, [facility] 09/30/2016 NAKUL GONZALEZ LEGAL JOB TITLES Ot G45.9 TRANSIENT CEREBRAL ISCHEMIC ATTACK, [facility] 10/05/2016 NAKUL GONZALEZ LEGAL JOB TITLES Ot G45.9 TRANSIENT CEREBRAL ISCHEMIC ATTACK, [facility] 10/05/2016 NAKUL GONZALEZ LEGAL JOB TITLES Ot G45.9 TRANSIENT CEREBRAL ISCHEMIC ATTACK, [facility] 10/05/2016 NAKUL GONZALEZ LEGAL JOB TITLES Ot G45.9 TRANSIENT CEREBRAL ISCHEMIC ATTACK, [facility] 10/05/2016 NAKUL GONZALEZ LEGAL JOB TITLES Ot G45.9 TRANSIENT CEREBRAL ISCHEMIC ATTACK, [facility] 10/28/2016 NAKUL GONZALEZ LEGAL JOB TITLES Ot R42 DIZZINESS AND GIDDINESS 10/28/2016 NAKUL GONZALEZ LEGAL JOB TITLES Ot R51 HEADACHE 10/28/2016 NAKUL GONZALEZ LEGAL JOB TITLES Ot Z86.73 PRSNL HX OF TIA (TIA), AND CEREB INFRC W 10/07/2017 MARTA FINN MD Ot Z29.8 ENCOUNTER FOR OTHER SPECIFIED PROPHYLACT 11/08/2017 MARTA FINN MD Ot Z29.8 ENCOUNTER FOR OTHER SPECIFIED PROPHYLACT 12/10/2017 MARTA FINN MD Ot Z29.8 ENCOUNTER FOR OTHER SPECIFIED PROPHYLACT 12/13/2017 MARTA FINN MD Ot Z29.8 ENCOUNTER FOR OTHER SPECIFIED PROPHYLACT 01/14/2018 MARTA FINN MD Ot Z29.8 ENCOUNTER FOR OTHER SPECIFIED PROPHYLACT 01/17/2018 MARTA FINN MD Ot Z29.8 ENCOUNTER FOR OTHER SPECIFIED PROPHYLACT 02/18/2018 MARTA FINN MD Ot Z29.8 ENCOUNTER FOR OTHER SPECIFIED PROPHYLACT Procedures There is no data. Results Test Result Range [id number] - 10/05/16 13:51 Serum or plasma urea nitrogen measurement (mass/volume) 16 mg/dL 7-18 Serum or plasma creatinine measurement (mass/volume) 0.85 mg/dL 0.60-1.30 Serum or plasma urea nitrogen/creatinine mass ratio 19 0 -20 Serum or plasma creatinine measurement with calculation of estimated glomerular filtration rate > NRG Encounters ACCT No. Visit Date/Time Discharge Status Pt. Type Provider Facility Loc./Unit Complaint [id number] 02/19/2018 00:09:00 02/19/2018 23:59:59 CLS Preadmit MARTA FINN MD [facility] [address] [facility] [id number] 02/08/2018 06:00:00 02/18/2018 00:01:00 DIS Outpatient MARTA FINN MD [facility] [address] [facility] [id number] 01/05/2018 13:31:00 01/14/2018 00:01:00 DIS Outpatient MARTA FINN MD [facility] [address] [facility] [id number] 11/23/2017 06:00:00 12/10/2017 00:01:00 DIS Outpatient MARTA FINN MD [facility] [place] [facility] [address] [facility] [id number] 11/03/2017 11:25:00 11/06/2017 00:01:00 DIS Outpatient MARTA FINN MD [facility] [address] [facility] [id number] 10/04/2017 14:08:00 10/07/2017 00:01:00 DIS Outpatient MARTA FINN MD [facility] [place] [facility] [address] [facility] [id number] 10/05/2016 13:35:00 10/05/2016 23:59:59 CLS Outpatient NAKUL GONZALEZ APRN [facility] RAD HX OF TIA,DIZZINESS, LIGHTHEADEDNESS, HEADACHE [id number] 10/18/2015 07:11:00 10/18/2015 10:10:00 DIS Outpatient JERILYN NOBLE MD [facility] SDC SCREENING [id number] 10/16/2015 05:42:00 10/16/2015 11:54:00 DIS Outpatient JERILYN NOBLE MD [facility] PREOP SCREENING [id number] 09/20/2015 15:18:00 09/25/2015 13:12:00 DIS Outpatient MACIEL BYRNES MD [facility]HAB B QUAD STRENGTHENING; KNEE DJD [id number] 12/04/2014 02:41:00 12/04/2014 04:20:00 DIS Emergency JONATHON PATEL, FANI Leon [facility] ER ABD PAIN,HANDS TINGLING,DIARRHEA,SWEATING,HRT POUN [id number] 02/26/2018 12:24:00 ACT Emergency JAUN PATEL, BERNABE Angel [facility] ER HX OF TIA'S/PULSING IN HEAD/PAIN [id number] 12/04/2014 02:41:26 ACT Document Registration
[2018-02-26] MEDS ORDERED: NS IV 1000 ML 1,000 ML IV SCH (12:46)
--- NOTE | 2018-02-26 12:58 | ED Headache ---
General Chief Complaint: Head/Cervical Problems Stated Complaint: HX OF TIA'S/PULSING IN HEAD/PAIN Nursing Triage Note: pt states around 2030 last night she began to experience pulsating sensations just above her right ear and was experiencing some nausea and headache. pt presents to the ed today complaining of a circumferential headache, denies light sensitivity. denies this headache feeling out of character from previous headaches. Nursing Sepsis Screen: No Definite Risk Source: patient, family (SON) Exam Limitations: no limitations History of Present Illness Date Seen by Provider: Feb 26, 2018 Time Seen by Provider: 12:41 Initial Comments Patient presents to ER by private conveyance with chief complaint that she uses having a headache this morning that is frontal in distribution and wraps around her head like a crown and describes it as dull. Yesterday evening around 8:00 she began to experience a pulsating sensation above her right ear which she describes being able to feel as well as here. At that time she was not really having any pain but she did have some nausea without any vomiting. Her nausea has passed. She takes Tylenol extra strength for her arthritis and she took a dose about 7:00 this morning but that was before her headache started. She has not taken any since. She is not on blood thinners. She said she was more concerned because she has a history of 2 TIAs. She says she didn't know that they're TIAs at the time but they were shown to be TIAs BY brain scan. Last week the patient had gum surgery in [place] and still has some of the strings in place. She denies any ear cold like symptoms, runny nose, fevers chills nausea presently, but she does have a history of hard of hearing. Allergies and Home Medications Allergies Coded Allergies: Sulfa (Sulfonamide Antibiotics) (Verified Allergy, Unknown, 12/04/14) Home Medications Acetaminophen 650 Mg Tablet.er, 1,300 MG PO Q8H, (Reported) take 2 (650mg) tab Aspirin 81 Mg Tablet.dr, 81 MG PO DAILY, (Reported) D3/Red Wine/Resveratrol/Malt 1 Each Capsule, 1 EACH PO DAILY, (Reported) Fluticasone Propionate 9.9 Ml [place].susp, 1 SPRAY NSEACH DAILY PRN for allergies , (Reported) Gluc/Giuseppe-MSM#1/Vit C/Mango/Bor 1 Each Tablet, 1 EACH PO DAILY, (Reported) Levothyroxine Sodium 100 Mcg Tablet, 100 MCG PO DAILY, (Reported) Lisinopril 10 Mg Tablet, 10 MG PO DAILY, (Reported) Metoprolol Succinate 50 Mg Tab.er.24h, 50 MG PO DAILY, (Reported) Omeprazole 20 Mg Capsule.dr, 20 MG PO DAILY, (Reported) Pravastatin Sodium 80 Mg Tablet, 80 MG PO HS, (Reported) Vitamin B Complex & Vit C No.4 150 Mg Tablet, 150 MG PO DAILY, (Reported) Patient Home Medication List Home Medication List Reviewed: Yes Review of Systems Review of Systems Constitutional: No chills, No diaphoresis Eyes: Denies Blindness, Denies Blurred Vision Ears, Nose, Mouth, Throat: denies ear pain, denies ear discharge Respiratory: No cough, No short of breath Cardiovascular: No chest pain, No edema Gastrointestinal: No abdominal pain, No constipation, No diarrhea; nausea; No vomiting Genitourinary: No discharge, No dysuria Musculoskeletal: No back pain, No joint pain Past Qsdbyvx-Ljpsnc-Auausm Hx Patient Social History Alcohol Use: Occasionally Uses Alcohol Beverage of Choice: Wine Recreational Drug Use: No Smoking Status: Never a Smoker Recent Foreign Travel: No Contact w/Someone Who Travel: No Recent Infectious Disease Expo: No Immunizations Up To Date PED Vaccines UTD: Yes Date of Pneumonia Vaccine: May 20, 2011 Past Medical History Surgeries: Yes (right TKR, BUNIONECTOMY, right knee scope, cataracts) Joint Replacement Respiratory: No Cardiac: Yes Hypertension Neurological: Yes TIA : No SAFETY LEAD History: Menopausal Genitourinary: No Gastrointestinal: No Musculoskeletal: No Endocrine: Yes Hypothyroidsim Cataract Cancer: Yes Skin Psychosocial: No Integumentary: No Blood Disorders: No Adverse Reaction/Blood Tranf: No Physical Exam Vital Signs Vital Signs - First Documented 02/26/18 12:29 Temp 97.2 Pulse 75 Resp 18 B/P (MAP) 174/89 (117) Pulse Ox 98 O2 Delivery Room Air Capillary Refill : Less Than 3 Seconds Height, Weight, BMI Height: 5'3.00" Weight: 145lbs. 0.0oz. [id number]; 25.7 BMI Method:Stated General Appearance: WD/WN, no apparent distress HEENT: PERRL/EOMI, normal ENT inspection, TMs normal, other (right side of her head unremarkable in appearance and palpation. Nontender to palpation over the gnosticism.) Neck: non-tender, full range of motion, normal inspection Cardiovascular: normal peripheral pulses, regular rate, rhythm, no edema Respiratory: chest non-tender, lungs clear, normal breath sounds, no respiratory distress, no accessory muscle use Gastrointestinal: normal bowel sounds, non tender, soft Extremities: normal range of motion, non-tender, normal inspection, normal capillary refill Psychiatric: alert, oriented x 3 Crainal Nerves: normal speech, PERRL, abnormal speech (mild presbycusis) Coordination/Gait: normal gait Motor/Sensory: no motor deficit, no sensory deficit, no pronator drift Skin: normal color, warm/dry Progress/Results/Core Measures Results/Orders Lab Results Laboratory Tests Test 02/26/18 12:51 02/26/18 13:54 Range/Units White Blood Count 7.9 4.3-11.0 10^3/uL Red Blood Count 4.23 L 4.35-5.85 10^6/uL Hemoglobin 13.1 11.5-16.0 G/DL Hematocrit 40 35-52 % Mean Corpuscular Volume 94 80-99 FL Mean Corpuscular Hemoglobin 31 25-34 PG Mean Corpuscular Hemoglobin Concent 33 32-36 G/DL Red Cell Distribution Width 13.3 10.0-14.5 % Platelet Count 270 130-400 10^3/uL Mean Platelet Volume 9.4 7.4-10.4 FL Neutrophils (%) (Auto) 65 42-75 % Lymphocytes (%) (Auto) 26 12-44 % Monocytes (%) (Auto) 7 0-12 % Eosinophils (%) (Auto) 2 0-10 % Basophils (%) (Auto) 1 0-10 % Neutrophils # (Auto) 5.2 1.8-7.8 X 10^3 Lymphocytes # (Auto) 2.0 1.0-4.0 X 10^3 Monocytes # (Auto) 0.6 0.0-1.0 X 10^3 Eosinophils # (Auto) 0.2 0.0-0.3 10^3/uL Basophils # (Auto) 0.1 0.0-0.1 10^3/uL Erythrocyte Sedimentation Rate 9 0-30 MM/HR Prothrombin Time 12.6 12.2-14.7 SEC INR Comment 0.9 0.8-1.4 Activated Partial Thromboplast Time 29 24-35 SEC Sodium Level 138 135-145 MMOL/L Potassium Level 3.7 3.6-5.0 MMOL/L Chloride Level 106 98-107 MMOL/L Carbon Dioxide Level 20 L 21-32 MMOL/L Anion Gap 12 5-14 MMOL/L Blood Urea Nitrogen 11 7-18 MG/DL Creatinine 0.82 0.60-1.30 MG/DL Estimat Glomerular Filtration Rate > 60 BUN/Creatinine Ratio 13 Glucose Level 127 H 70-105 MG/DL Calcium Level 9.6 8.5-10.1 MG/DL Corrected Calcium 9.4 8.5-10.1 MG/DL Total Bilirubin 0.3 0.1-1.0 MG/DL Aspartate Amino Transf (AST/SGOT) 28 5-34 U/L Alanine Aminotransferase (ALT/SGPT) 30 0-55 U/L Alkaline Phosphatase 74 40-136 U/L C-Reactive Protein High Sensitivity 0.04 0.00-0.50 MG/DL Total Protein 7.0 6.4-8.2 GM/DL Albumin 4.3 3.2-4.5 GM/DL Thyroid Stimulating Hormone (TSH) 0.43 0.35-4.94 UIU/ML Urine Color YELLOW Urine Clarity CLEAR Urine pH 7 5-9 Urine Specific [place] 1.010 L 1.016-1.022 Urine Protein NEGATIVE NEGATIVE Urine Glucose (UA) NEGATIVE NEGATIVE Urine Ketones NEGATIVE NEGATIVE Urine Nitrite NEGATIVE NEGATIVE Urine Bilirubin NEGATIVE NEGATIVE Urine Urobilinogen NORMAL NORMAL MG/DL Urine Leukocyte Esterase NEGATIVE NEGATIVE Urine RBC (Auto) NEGATIVE NEGATIVE Urine RBC NONE /HPF Urine WBC NONE /HPF Urine Squamous Epithelial Cells RARE /HPF Urine Crystals NONE /LPF Urine Bacteria NEGATIVE /HPF Urine Casts NONE /LPF Urine Mucus NEGATIVE /LPF Urine Culture Indicated NO My Orders Orders - BERNABE ZAMORANO Ct Head Wo (02/26/18 12:46) Saline Lock/Iv-Start (02/26/18 12:46) Cbc With Automated Diff (02/26/18 12:46) Comprehensive Metabolic Panel (02/26/18 12:46) Hs C Reactive Protein (02/26/18 12:46) Erythrocyte Sedimentation Rate (02/26/18 12:46) Protime With Inr (02/26/18 12:46) Partial Thromboplastin Time (02/26/18 12:46) Thyroid Stimulating Hormone (02/26/18 12:46) Ua Culture If Indicated (02/26/18 12:46) Saline Lock/Iv-Start (02/26/18 12:46) Ns Iv 1000 Ml (Sodium Chloride 0.9%) (02/26/18 12:46) Ketorolac Injection (Toradol Injection) (02/26/18 13:00) Ekg Tracing (02/26/18 13:02) Ct Angio Head/Neck (02/26/18 14:28) Iohexol Injection (Omnipaque 350 Mg/Ml 1 (02/26/18 14:45) Contrast Received (Contrast Received) (02/26/18 14:45) Sodium Chloride Flush (Catheter Flush Sy (02/26/18 14:45) Ns (Ivpb) (Sodium Chloride 0.9%) (02/26/18 14:45) Medications Given in ED Current Medications Medications Dose Ordered Sig/Nataliia Route Start Time Stop Time Status Last Admin Dose Admin Iohexol 100 ml ONCE ONCE IV 02/26/18 14:45 02/26/18 14:47 DC 02/26/18 15:21 75 ML Ketorolac Tromethamine 15 mg ONCE ONCE IVP 02/26/18 13:00 02/26/18 13:01 DC 02/26/18 13:03 15 MG Sodium Chloride 10 ml NEEDED PRN IV 02/26/18 14:45 02/26/18 15:21 10 ML Sodium Chloride 250 ml ONCE ONCE IV 02/26/18 14:45 02/26/18 14:47 DC 02/26/18 15:21 80 ML Vital Signs/I&O 02/26/18 12:29 Temp 97.2 Pulse 75 Resp 18 B/P (MAP) 174/89 (117) Pulse Ox 98 O2 Delivery Room Air Blood Pressure Mean: 117 Progress Progress Note #1: Time: 12:57 Progress Note Plan to give her some fluids and at this patient may need to do an angiogram of the brain and neck vasculature. Don't find anything in the records indicate she' s had Dopplers or CT angiogram of the head or neck. We'll get a CT now. Concerning with her pulsatile tinnitus that she might be having a dissecting ipsilateral carotid. She is not wanting anything for the pain right this moment. She's not having any nausea. We'll get some labs to include urinalysis as well as ESR and CRP. Giant cell arteritis would be in the differential. She says is a typical feeling tension headache is just a pulsatile sensation that is new and unusual has her concerned. If there is a stroke. Be well outside the window but she has an anion score of 0 and a complete knee otherwise normal neurologic examination. History of Bertha's thyroiditis, hypertension and hyperlipidemia. Progress Note #2: Time: 13:46 Progress Note Patient's symptoms remain unchanged. Her headache with right-sided pulsatile tinnitus is concerning for carotid dissection or other similar pathology. We've not known to rule this out by old imaging nor have we found an alternative diagnosis. The ESR and CRP are unremarkable making Robert Lee arteritis less likely or other inflammatory conditions. CT without contrast is unremarkable for any changes, intracranial hemorrhage etc. Next step would be to get a CT angio of the head and neck vessels. Progress Note #3: Time: 16:52 Progress Note Upon further review the history patient reveals now she did indeed have some vertigo even though when She was asked earlier and she said no that this was a couple weeks ago and at that time her doctor found effusion in both of the ears and asked when they started the Flonase and gave her a shot of steroids. She says her symptoms got considerably better. At that time she was having some similar tinnitus at this time she is not having the vertigo just a headache and tinnitus. Plan to give her a shot of steroids encourage her to use the Flonase and follow up outpatient for the mystery air bubble in her neck. At this time her headache has resolved. Initial ECG Impression Date: Feb 26, 2018 Initial ECG Impression Time: 13:04 Initial ECG Rate: 64 Initial ECG Rhythm: Normal Sinus Initial ECG Intervals: Normal Initial ECG Impression: Normal, Nonspecific Changes Initial ECG Comparisson: Unchanged Comment No ST elevation or depression. Diagnostic Imaging Diagonstic Imaging: CT Comments [facility]IA [facility], [facility]. [place], [place] NAME: PAMELA VÁSQUEZ [facility] REC#: [id number] PT STATUS: REG ER : 1940 PHYSICIAN: BERNABE ZAMORANO MD ADMIT DATE: 02/26/18/ER Draft Date of Exam:02/26/18 CT HEAD WO PROCEDURE: CT head without contrast. TECHNIQUE: Multiple contiguous axial images were obtained through the brain without the use of intravenous contrast. INDICATION: Pulsating sensation above right ear, headache. COMPARISON: MRI dated October 05, 2016. FINDINGS: Age-appropriate volume loss. No intracranial hemorrhage. Periventricular and subcortical white matter hypodensities are again identified, most consistent with mild chronic small vessel white matter ischemic disease. No CT evidence of an acute ischemic infarction. The minimally visualized paranasal sinuses are clear. The calvarium and extracalvarial soft tissues are unremarkable. IMPRESSION: No acute intracranial abnormality with age-appropriate volume loss and mild background chronic small vessel white matter ischemic disease. Dictated on workstation # [id number] Dict: 02/26/18 1325 Trans: 02/26/18 1333 [id number] Interpreted by: PATRICK ESPOSITO MD Electronically signed by: Reviewed: Reviewed by Me Diagonstic Imaging: CT (angio) Plain Films/CT/US/NM/MRI: head, other (neck) Comments [facility] [place], [place] NAME: PAMELA VÁSQUEZ [facility] REC#: [id number] PT STATUS: REG ER : 1940 PHYSICIAN: BERNABE ZAMORANO MD ADMIT DATE: 02/26/18/ER Draft Date of Exam:02/26/18 CT ANGIO HEAD/NECK PROCEDURE: CT angiography of the head and CT angiography of the neck with and without contrast. TECHNIQUE: Contiguous noncontrast images were obtained from the skull base through the vertex. After intravenous contrast administration, helical CT angiography of the neck was performed. Source data was reformatted into multiple MIP projections. Delayed post contrast acquisition was also obtained. INDICATION: Pulsating sensation above the right ear, nodule, headache. COMPARISON: 02/26/2018 and 10/05/2016. FINDINGS: Age-appropriate volume loss. Evaluation for hemorrhage is limited secondary to presence of intravenous contrast. No midline shift, herniation, hydrocephalus, or extra-axial fluid collection. Periventricular and subcortical white matter hypodensities are again identified, consistent with background chronic small vessel white matter ischemic disease. No enhancing intracranial mass. No suspicious dural enhancement. The visualized paranasal sinuses are clear. The calvarium and extracalvarial soft tissues are unremarkable. The muscles of mastication are unremarkable. The salivary glands are unremarkable. The airway is patent. The epiglottis and aryepiglottic folds are unremarkable. No significant adenopathy within the neck. Multiple calcified mediastinal and hilar lymph nodes are seen within the chest. No pneumothorax within the [id number]. Calcified granuloma within the right upper lung. A 2.1 x 2.0 cm focal gas collection is identified adjacent to the right aspect of the trachea and esophagus at the level of C7/T1. This is not in definite continuity with the adjacent trachea or esophagus. This does not appear to be in continuity with the lung. A three-vessel aortic arch is identified. Mild scattered vascular calcifications are present, particularly within the carotid bulbs. The large arterial structures of the head and neck are otherwise unremarkable without evidence of occlusion, hemodynamically significant stenosis, dissection, aneurysm, or pseudoaneurysm. The large venous structures appear patent. Minimal retrolisthesis of C5 on C6 with advanced degenerative changes at C5/C6. Additional scattered degenerative changes within the cervical spine. No acute osseous abnormality identified. IMPRESSION: Focal gas collection within the inferior right neck as described above. This is of uncertain etiology. This could relate to an esophageal diverticulum, though no definite fracture seen to the esophagus. This is also seen immediately adjacent to the trachea, though no connection to the trachea is seen. Pneumomediastinum dissecting from the chest would be an additional consideration, though there is no evidence of gas within the chest itself. Therefore, exact etiology of this gas collection is uncertain. A followup CT of the neck is recommended in two to four weeks to reevaluate. The large arterial structures of the head and neck are unremarkable without evidence of occlusion, hemodynamic significant stenosis, dissection, aneurysm, or pseudoaneurysm. Degenerative changes within the cervical spine. Evidence of chronic granulomatous disease. Additional findings as described above. Dictated on workstation # [id number] Dict: 02/26/18 1524 Trans: 02/26/18 1554 [facility] [id number] Interpreted by: PATRICK ESPOSITO MD Electronically signed by: Reviewed: Reviewed by Me Departure Impression Primary Impression: Headache Qualified Codes: R51 - Headache Additional Impressions: Pulsatile tinnitus of right ear Otitis media with effusion Disposition: HOME, SELF-CARE Condition: Improved Departure-Patient Inst. Decision time for Depature: 16:54 Referrals: MARTA CORTEZ MD (PCP/Family) Primary Care Physician Patient Instructions: Tinnitus (Ringing in the Ears) Add. Discharge Instructions: Wednesday morning call Dr. Cortez to request an appointment to continue your workup of the pulsatile sensation in the right ear. Use Tylenol 1000 mg every 8 hours in addition to ibuprofen 600 mg every 8 hours as needed for headache. You your primary care doctor can consider repeating imaging on her neck to look at the air bubble in 2 weeks to see if it's resolved. Start using your Flonase daily each nostril for the next 2 weeks. All discharge instructions reviewed with patient and/or family. Voiced understanding. Copy Copies To 1: MARTA CORTEZ MD, TITUS J Feb 26, 2018 12:58
[2018-02-26] MEDS ORDERED: KETOROLAC 30 MG/ML VIAL IVP ONE (13:00)
[2018-02-26 13:06] LABS: BASOPHILS # (AUTO) 0.1 10^3/uL (0.0-0.1); BASOPHILS % (AUTO) 1 % (0-10); EOSINOPHILS # (AUTO) 0.2 10^3/uL (0.0-0.3); EOSINOPHILS % (AUTO) 2 % (0-10); HEMATOCRIT 40 % (35-52); HEMOGLOBIN 13.1 G/DL (11.5-16.0); LYMPHOCYTES % (AUTO) 26 % (12-44); MEAN CORPUSCULAR HEMOGLOBIN 31 PG (25-34); MEAN CORPUSCULAR HGB CONC 33 G/DL (32-36); MEAN CORPUSCULAR VOLUME 94 FL (80-99); MEAN PLATELET VOLUME 9.4 FL (7.4-10.4); MONOCYTES # (AUTO) 0.6 X 10^3 (0.0-1.0); MONOCYTES % (AUTO) 7 % (0-12); NEUTROPHILS # (AUTO) 5.2 X 10^3 (1.8-7.8); NEUTROPHILS % (AUTO) 65 % (42-75); PLATELET COUNT 270 10^3/uL (130-400); RED BLOOD COUNT 4.23 10^6/uL (4.35-5.85); RED CELL DISTRIBUTION WIDTH 13.3 % (10.0-14.5); WHITE BLOOD COUNT 7.9 10^3/uL (4.3-11.0)
[2018-02-26 13:16] LABS: INR 0.9 (0.8-1.4); PROTHROMBIN TIME PATIENT 12.6 SEC (12.2-14.7)
[2018-02-26 13:25] LABS: ALANINE AMINOTRANSFERASE 30 U/L (0-55); ALBUMIN 4.3 GM/DL (3.2-4.5); ALKALINE PHOSPHATASE 74 U/L (40-136); BILIRUBIN,TOTAL 0.3 MG/DL (0.1-1.0); BUN/CREATININE RATIO 13; CALCIUM 9.6 MG/DL (8.5-10.1); CARBON DIOXIDE 20 MMOL/L (21-32); CHLORIDE 106 MMOL/L (98-107); CREATININE SERUM 0.82 MG/DL (0.60-1.30); GFR ESTIMATED > 60; GLUCOSE 127 MG/DL (70-105); POTASSIUM 3.7 MMOL/L (3.6-5.0); SODIUM 138 MMOL/L (135-145)
[2018-02-26 13:27] LABS: ERYTHROCYTE SEDIMENTATION RATE 9 MM/HR (0-30)
--- NOTE | 2018-02-26 13:33 | Diagnostic Imaging Report ---
PROCEDURE: CT head without contrast. TECHNIQUE: Multiple contiguous axial images were obtained through the brain without the use of intravenous contrast. INDICATION: Pulsating sensation above right ear, headache. COMPARISON: MRI dated October 05, 2016. FINDINGS: Age-appropriate volume loss. No intracranial hemorrhage. Periventricular and subcortical white matter hypodensities are again identified, most consistent with mild chronic small vessel white matter ischemic disease. No CT evidence of an acute ischemic infarction. The minimally visualized paranasal sinuses are clear. The calvarium and extracalvarial soft tissues are unremarkable. IMPRESSION: No acute intracranial abnormality with age-appropriate volume loss and mild background chronic small vessel white matter ischemic disease. Dictated by: Dictated on workstation # [id number]
[2018-02-26 13:58] LABS: BILIRUBIN,URINE NEGATIVE (NEGATIVE); CLARITY,URINE CLEAR; COLOR,URINE YELLOW; GLUCOSE, URINE (UA) NEGATIVE (NEGATIVE); KETONES,URINE NEGATIVE (NEGATIVE); LEUKOCYTE ESTERASE ,URINE NEGATIVE (NEGATIVE); NITRITE,URINE NEGATIVE (NEGATIVE); PH,URINE 7 (5-9); PROTEIN,URINE NEGATIVE (NEGATIVE); UROBILINOGEN,URINE NORMAL (NORMAL)
[2018-02-26 14:03] LABS: BACTERIA,URINE NEGATIVE /HPF; SQUAMOUS EPITHELIAL CELL,UR RARE /HPF
[2018-02-26] MEDS ORDERED: NS 250 ML (IVPB) BAG IV ONE (14:45)
[2018-02-26] MEDS ORDERED: IOHEXOL 350 MG/ML 100 ML (OMNIPAQUE 350) VIAL IV ONE (14:45)
[2018-02-26] MEDS ORDERED: RECEIVED CONTRAST (Hold Metformin) IV SCH (14:45)
[2018-02-26] MEDS ORDERED: CATHETER FLUSH 10 ML SYR IV PRN (14:45)
--- NOTE | 2018-02-26 15:55 | Diagnostic Imaging Report ---
PROCEDURE: CT angiography of the head and CT angiography of the neck with and without contrast. TECHNIQUE: Contiguous noncontrast images were obtained from the skull base through the vertex. After intravenous contrast administration, helical CT angiography of the neck was performed. Source data was reformatted into multiple MIP projections. Delayed post contrast acquisition was also obtained. INDICATION: Pulsating sensation above the right ear, nodule, headache. COMPARISON: 02/26/2018 and 10/05/2016. FINDINGS: Age-appropriate volume loss. Evaluation for hemorrhage is limited secondary to presence of intravenous contrast. No midline shift, herniation, hydrocephalus, or extra-axial fluid collection. Periventricular and subcortical white matter hypodensities are again identified, consistent with background chronic small vessel white matter ischemic disease. No enhancing intracranial mass. No suspicious dural enhancement. The visualized paranasal sinuses are clear. The calvarium and extracalvarial soft tissues are unremarkable. The muscles of mastication are unremarkable. The salivary glands are unremarkable. The airway is patent. The epiglottis and aryepiglottic folds are unremarkable. No significant adenopathy within the neck. Multiple calcified mediastinal and hilar lymph nodes are seen within the chest. No pneumothorax within the [id number]. Calcified granuloma within the right upper lung. A 2.1 x 2.0 cm focal gas collection is identified adjacent to the right aspect of the trachea and esophagus at the level of C7/T1. This is not in definite continuity with the adjacent trachea or esophagus. This does not appear to be in continuity with the lung. A three-vessel aortic arch is identified. Mild scattered vascular calcifications are present, particularly within the carotid bulbs. The large arterial structures of the head and neck are otherwise unremarkable without evidence of occlusion, hemodynamically significant stenosis, dissection, aneurysm, or pseudoaneurysm. The large venous structures appear patent. Minimal retrolisthesis of C5 on C6 with advanced degenerative changes at C5/C6. Additional scattered degenerative changes within the cervical spine. No acute osseous abnormality identified. IMPRESSION: Focal gas collection within the inferior right neck as described above. This is of uncertain etiology. This could relate to an esophageal diverticulum, though no definite fracture seen to the esophagus. This is also seen immediately adjacent to the trachea, though no connection to the trachea is seen. Pneumomediastinum dissecting from the chest would be an additional consideration, though there is no evidence of gas within the chest itself. Therefore, exact etiology of this gas collection is uncertain. A followup CT of the neck is recommended in two to four weeks to reevaluate. The large arterial structures of the head and neck are unremarkable without evidence of occlusion, hemodynamic significant stenosis, dissection, aneurysm, or pseudoaneurysm. Degenerative changes within the cervical spine. Evidence of chronic granulomatous disease. Additional findings as described above. Dictated by: Dictated on workstation # [id number]
[2018-02-26] MEDS ORDERED: DEXAMETHASONE 4 MG/ML SDV (DECADRON) IV ONE (17:00)
[2018-02-26 17:08] VITALS: BP 174/89
== END 2018-02-26 17:08 | disposition home or self-care (01) ==
LOC: EDUNIT# 12:23 → ER 12:24
DX: R51 Headache (principal); H93.A1 Pulsatile tinnitus, right ear; H66.91 Otitis media, unspecified, right ear; I10 Essential (primary) hypertension; E03.9 Hypothyroidism, unspecified; Z85.828 Personal history of other malignant neoplasm of skin; Z86.73 Personal history of transient ischemic attack (TIA), and cerebral infarction without residual deficits; Z88.2 Allergy status to sulfonamides; Z79.82 Long term (current) use of aspirin; Z79.52 Long term (current) use of systemic steroids; Z96.651 Presence of right artificial knee joint
CPT/HCPCS: 36415; 70450; 70496; 70498; 80053; 81000; 84443; 85025; 85610; 85652; 85730; 86141; 93005

== ENCOUNTER → 2018-03-22 | Outpatient (CLI) | payer MEDICARE, OTHER ==
--- NOTE | 2018-03-22 17:06 | Diagnostic Imaging Report ---
INDICATION: Gaseous cystic lesion in the right neck. COMPARISON: Exam correlated with CT angio neck and head of 02/26/2018. FINDINGS: Neck: Nasopharynx, oropharynx and hypopharynx were unremarkable. The mastoid air cells, middle ear cavities, and bony skull base are unremarkable. The orbits and paranasal sinuses where visualized are unremarkable. There are degenerative changes to the cervical spine. Unchanged from the prior study, at and just above the level of the thoracic inlet, there is a right paratracheal gaseous collection with an imperceptible wall measuring 1.9 x 1.4 cm. Its superior aspect is adjacent to the esophagus and it abuts the posterior right lateral wall of the trachea. I cannot identify gaseous luminal communication between those structures and the cyst, however it is likely tracheal diverticulum or esophageal air-containing diverticulum. Other benign etiology such as nonspecific paratracheal cyst is an additional consideration. Its lack of identifiable wall, the absence of intraluminal air, and no adjacent inflammation all favor chronic benign incidental etiology. No fluid collection and no evidence for lymphadenopathy is revealed at this nonenhanced exam. Prevertebral and retropharyngeal spaces are normal. CT chest: There is very minimal scarring in the pulmonary apices. There are scattered calcified benign parenchymal and moises granulomatous foci with no noncalcified or suspect pulmonary nodule. No suspicious thoracic lymph nodes. The aorta is nonaneurysmal. The heart and pericardium are unremarkable. There are no blebs, bullous disease, or cysts. There was no evidence for lung hernia. No acute or suspect soft tissue or osseous chest wall pathology. The visualized upper abdomen is unremarkable. IMPRESSION: 1. 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 While intraluminal communication could not be confirmed, this is probably given its location paratracheal diverticulum. Less likely, esophageal diverticulum or other paratracheal cyst. This showed no complexity, soft tissue element, gas, or inflammatory reaction and is presumed chronic nonaggressive and benign incidental finding. Neck was otherwise normal at this nonenhanced exam. 2. Th chest CT reveals benign granulomatous residua, otherwise unremarkable. Dictated by: Dictated on workstation # [id number]
== END ==
LOC: RAD 14:26
PROVIDERS: ATTEND Family Medicine
DX: L98.9 Disorder of the skin and subcutaneous tissue, unspecified (principal); J84.10 Pulmonary fibrosis, unspecified
CPT/HCPCS: 70490; 71250

== ENCOUNTER 2018-03-28 23:19 | Emergency (ER) | payer MEDICARE, OTHER ==
[~2018-03-28] VITALS: Ht 160 cm; Wt 65.8 kg
[2018-03-29 01:10] LABS: BASOPHILS % (AUTO) 0 % (0-10); EOSINOPHILS % (AUTO) 0 % (0-10); HEMATOCRIT 38 % (35-52); HEMOGLOBIN 12.5 G/DL (11.5-16.0); LYMPHOCYTES # (AUTO) 1.8 X 10^3 (1.0-4.0); LYMPHOCYTES % (AUTO) 17 % (12-44); MEAN CORPUSCULAR HEMOGLOBIN 31 PG (25-34); MEAN CORPUSCULAR HGB CONC 33 G/DL (32-36); MEAN CORPUSCULAR VOLUME 95 FL (80-99); MEAN PLATELET VOLUME 9.8 FL (7.4-10.4); MONOCYTES % (AUTO) 9 % (0-12); NEUTROPHILS % (AUTO) 74 % (42-75); PLATELET COUNT 265 10^3/uL (130-400); RED BLOOD COUNT 4.03 10^6/uL (4.35-5.85); WHITE BLOOD COUNT 10.8 10^3/uL (4.3-11.0)
[2018-03-29] MEDS ORDERED: hydrALAZINE (APESOLINE) 20 MG/ML VIAL IV ONE ×2 (01:15→02:45)
[2018-03-29 01:21] LABS: INR 0.8 (0.8-1.4); PROTHROMBIN TIME PATIENT 11.6 SEC (12.2-14.7)
[2018-03-29] MEDS ORDERED: KETOROLAC 30 MG/ML VIAL IVP ONE (01:30)
[2018-03-29 01:31] LABS: ALANINE AMINOTRANSFERASE 29 U/L (0-55); ALBUMIN 4.2 GM/DL (3.2-4.5); ALKALINE PHOSPHATASE 89 U/L (40-136); BILIRUBIN,TOTAL 0.2 MG/DL (0.1-1.0); BUN/CREATININE RATIO 24; CALCIUM 9.6 MG/DL (8.5-10.1); CARBON DIOXIDE 21 MMOL/L (21-32); CHLORIDE 105 MMOL/L (98-107); CREATININE SERUM 0.76 MG/DL (0.60-1.30); GFR ESTIMATED > 60; GLUCOSE 121 MG/DL (70-105); MAGNESIUM 2.3 MG/DL (1.8-2.4); POTASSIUM 4.1 MMOL/L (3.6-5.0); SODIUM 139 MMOL/L (135-145); TOTAL PROTEIN 6.6 GM/DL (6.4-8.2)
--- NOTE | 2018-03-29 02:21 | ED Cardiac General ---
History of Present Illness General Chief Complaint: Cardiac/General Problems Stated Complaint: ELEVATED BP Allergies and Home Medications Allergies Coded Allergies: Sulfa (Sulfonamide Antibiotics) (Verified Allergy, Unknown, 12/04/14) Home Medications Acetaminophen 650 Mg Tablet.er, 1,300 MG PO Q8H, (Reported) take 2 (650mg) tab Aspirin 81 Mg Tablet.dr, 81 MG PO DAILY, (Reported) D3/Red Wine/Resveratrol/Malt 1 Each Capsule, 1 EACH PO DAILY, (Reported) Fluticasone Propionate 9.9 Ml [place].susp, 1 SPRAY NSEACH DAILY PRN for allergies , (Reported) Gluc/[place]-MSM#1/Vit C/Mango/Bor 1 Each Tablet, 1 EACH PO DAILY, (Reported) Levothyroxine Sodium 100 Mcg Tablet, 100 MCG PO DAILY, (Reported) Lisinopril 10 Mg Tablet, 10 MG PO DAILY, (Reported) Metoprolol Succinate 50 Mg Tab.er.24h, 50 MG PO DAILY, (Reported) Omeprazole 20 Mg Capsule.dr, 20 MG PO DAILY, (Reported) Pravastatin Sodium 80 Mg Tablet, 80 MG PO HS, (Reported) Vitamin B Complex & Vit C No.4 150 Mg Tablet, 150 MG PO DAILY, (Reported) Past Fhammkr-Ygcybx-Ablvrl Hx Patient Social History Alcohol Beverage of Choice: Wine Recent Foreign Travel: No Contact w/Someone Who Travel: No Immunizations Up To Date PED Vaccines UTD: Yes Date of Pneumonia Vaccine: May 20, 2011 Past Medical History Surgeries: Yes (right TKR, BUNIONECTOMY, right knee scope, cataracts) Joint Replacement Respiratory: No Cardiac: Yes Hypertension Neurological: Yes [employer] BEH[employer] 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 0.0oz. 65.481995va; 25.7 BMI Method:Stated Progress/Results/Core Measures Results/Orders Lab Results Laboratory Tests Test 03/29/18 01:05 Range/Units White Blood Count 10.8 4.3-11.0 10^3/uL Red Blood Count 4.03 L 4.35-5.85 10^6/uL Hemoglobin 12.5 11.5-16.0 G/DL Hematocrit 38 35-52 % Mean Corpuscular Volume 95 80-99 FL Mean Corpuscular Hemoglobin 31 25-34 PG Mean Corpuscular Hemoglobin Concent 33 32-36 G/DL Red Cell Distribution Width 13.0 10.0-14.5 % Platelet Count 265 130-400 10^3/uL Mean Platelet Volume 9.8 7.4-10.4 FL Neutrophils (%) (Auto) 74 42-75 % Lymphocytes (%) (Auto) 17 12-44 % Monocytes (%) (Auto) 9 0-12 % Eosinophils (%) (Auto) 0 0-10 % Basophils (%) (Auto) 0 0-10 % Neutrophils # (Auto) 8.0 H 1.8-7.8 X 10^3 Lymphocytes # (Auto) 1.8 1.0-4.0 X 10^3 Monocytes # (Auto) 1.0 0.0-1.0 X 10^3 Eosinophils # (Auto) 0.0 0.0-0.3 10^3/uL Basophils # (Auto) 0.0 0.0-0.1 10^3/uL Prothrombin Time 11.6 L 12.2-14.7 SEC INR Comment 0.8 0.8-1.4 Activated Partial Thromboplast Time 25 24-35 SEC Sodium Level 139 135-145 MMOL/L Potassium Level 4.1 3.6-5.0 MMOL/L Chloride Level 105 98-107 MMOL/L Carbon Dioxide Level 21 21-32 MMOL/L Anion Gap 13 5-14 MMOL/L Blood Urea Nitrogen 18 7-18 MG/DL Creatinine 0.76 0.60-1.30 MG/DL Estimat Glomerular Filtration Rate > 60 BUN/Creatinine Ratio 24 Glucose Level 121 H 70-105 MG/DL Calcium Level 9.6 8.5-10.1 MG/DL Corrected Calcium 9.4 8.5-10.1 MG/DL Magnesium Level 2.3 1.8-2.4 MG/DL Total Bilirubin 0.2 0.1-1.0 MG/DL Aspartate Amino Transf (AST/SGOT) 21 5-34 U/L Alanine Aminotransferase (ALT/SGPT) 29 0-55 U/L Alkaline Phosphatase 89 40-136 U/L Troponin I < 0.30 <0.30 NG/ML Total Protein 6.6 6.4-8.2 GM/DL Albumin 4.2 3.2-4.5 GM/DL My Orders Orders - LACY NEW DO Saline Lock/Iv-Start (03/29/18 01:01) Monitor-Rhythm Ecg Trace Only (03/29/18 01:01) Cbc With Automated Diff (03/29/18 01:01) Comprehensive Metabolic Panel (03/29/18 01:01) Magnesium (03/29/18 01:01) Protime With Inr (03/29/18 01:01) Partial Thromboplastin Time (03/29/18 01:01) Troponin I (03/29/18 01:01) Hydralazine Injection (Apresoline Inject (03/29/18 01:15) Ketorolac Injection (Toradol Injection) (03/29/18 01:30) Hydralazine Injection (Apresoline Inject (03/29/18 02:45) Medications Given in ED Current Medications Medications Dose Ordered Sig/Nataliia Route Start Time Stop Time Status Last Admin Dose Admin Hydralazine HCl 10 mg ONCE ONCE IV 03/29/18 01:15 03/29/18 01:17 DC 03/29/18 01:20 10 MG Hydralazine HCl 10 mg ONCE ONCE IV 03/29/18 02:45 03/29/18 02:46 DC 03/29/18 02:41 10 MG Ketorolac Tromethamine 30 mg ONCE ONCE IVP 03/29/18 01:30 03/29/18 01:32 DC 03/29/18 01:38 30 MG Departure Impression Primary Impression: Hypertension Disposition: 01 HOME, SELF-CARE Condition: Improved Departure-Patient Inst. Referrals: MARTA FINN MD (PCP/Family) Primary Care Physician Patient Instructions: Controlling Your Blood Pressure Through Lifestyle, High Blood Pressure (DC) Add. Discharge Instructions: CONTINUE YOUR REGULAR MEDICATIONS PRESCRIBED, INCLUDING HYDRALAZINE NEEDED FOR SYSTOLIC BLOOD PRESSURE > 170 LOW SODIUM DIET--LESS THAN 2 GRAMS A DAY FOLLOW UP WITH DR. FINN THIS WEEK FOR FURTHER CARE RETURN TO ER IF WORSE All discharge instructions reviewed with patient and/or family. Voiced understanding. LACY NEW DO Mar 29, 2018 02:21
[2018-03-29 03:40] VITALS: BP 148/98
== END 2018-03-29 03:42 | disposition home or self-care (01) ==
LOC: EDUNIT# 23:19 → ER 23:20
DX: I10 Essential (primary) hypertension (principal); E03.9 Hypothyroidism, unspecified; Z96.651 Presence of right artificial knee joint; Z98.890 Other specified postprocedural states; Z85.828 Personal history of other malignant neoplasm of skin; Z88.2 Allergy status to sulfonamides; Z79.82 Long term (current) use of aspirin; Z79.51 Long term (current) use of inhaled steroids; Z90.89 Acquired absence of other organs; Z86.73 Personal history of transient ischemic attack (TIA), and cerebral infarction without residual deficits
CPT/HCPCS: 36415; 80053; 83735; 84484; 85025; 85610; 85730; 93041

== ENCOUNTER 2018-04-01 12:16 | Outpatient (CLI) | payer MEDICARE, OTHER ==
[~2018-04-01] VITALS: Ht 160 cm; Wt 65.8 kg
[2018-04-01 12:20] VITALS: BP 146/75
[2018-04-01] MEDS ORDERED: ONDANSETRON 4 MG/2 ML (SDV) Z0FRAN ONE (12:56)
[2018-04-01] MEDS ORDERED: KETOROLAC 30 MG/ML VIAL ONE (12:57)
[2018-04-01] MEDS ORDERED: NS IV 1000 ML 1,000 ML ONE (12:58)
[2018-04-01 13:15] LABS: HEMOGLOBIN 12.7 G/DL (11.5-16.0); MEAN PLATELET VOLUME 9.4 FL (7.4-10.4); RED BLOOD COUNT 4.03 10^6/uL (4.35-5.85); RED CELL DISTRIBUTION WIDTH 13.2 % (10.0-14.5); WHITE BLOOD COUNT 8.5 10^3/uL (4.3-11.0)
[2018-04-01] MEDS ORDERED: KETOROLAC 30 MG/ML VIAL IV ONE (13:15)
[2018-04-01] MEDS ORDERED: DOXYCYCLINE INJECTION 100 MG in NS (IVPB) 100 ML IV NR (13:15)
[2018-04-01] MEDS ORDERED: NS IV 1000 ML 1,000 ML IV ONE (13:15)
[2018-04-01] MEDS ORDERED: ONDANSETRON 4 MG/2 ML (SDV) Z0FRAN IV PRN (13:15)
[2018-04-01 13:16] LABS: CLARITY,URINE CLEAR; GLUCOSE, URINE (UA) NEGATIVE (NEGATIVE); KETONES,URINE NEGATIVE (NEGATIVE); LEUKOCYTE ESTERASE ,URINE NEGATIVE (NEGATIVE); NITRITE,URINE POSITIVE (NEGATIVE); PH,URINE 5 (5-9); PROTEIN,URINE 2+ (NEGATIVE); UROBILINOGEN,URINE 8 MG/DL (NORMAL)
[2018-04-01 13:25] LABS: BACTERIA,URINE TRACE /HPF; BILIRUBIN,URINE 3+ (NEGATIVE)
[2018-04-01 13:26] LABS: COLOR,URINE ORANGE; SQUAMOUS EPITHELIAL CELL,UR RARE /HPF
[2018-04-01 13:33] LABS: ALANINE AMINOTRANSFERASE 25 U/L (0-55); ALKALINE PHOSPHATASE 70 U/L (40-136); BILIRUBIN,TOTAL 0.4 MG/DL (0.1-1.0); BUN/CREATININE RATIO 15; CALCIUM 8.9 MG/DL (8.5-10.1); CARBON DIOXIDE 23 MMOL/L (21-32); CHLORIDE 104 MMOL/L (98-107); CREATININE SERUM 0.81 MG/DL (0.60-1.30); GFR ESTIMATED > 60; GLUCOSE 114 MG/DL (70-105); POTASSIUM 4.6 MMOL/L (3.6-5.0); SODIUM 136 MMOL/L (135-145); TOTAL PROTEIN 6.4 GM/DL (6.4-8.2)
== END 2018-04-01 15:25 | disposition home or self-care (01) ==
LOC: SDC 12:16
PROVIDERS: ATTEND Nurse Practitioner Family
DX: N39.0 Urinary tract infection, site not specified (principal); R53.83 Other fatigue; E86.0 Dehydration; R53.81 Other malaise
CPT/HCPCS: 36415; 80053; 81000; 85027; 87077; 87088; 87186; 96365; 96374; 96375

== ENCOUNTER → 2018-05-06 | Outpatient (CLI) | payer MEDICARE, OTHER ==
[~2018-05-06] MED LIST changes: +BARIUM SUSPENSION 105% (LIQUID POLIBAR PLUS) 240 ML/DOSE PO ONE; +BARIUM SUSPENSION 60% (LIQUID EZ PAQUE) 240 ML DOSE PO ONE
--- NOTE | 2018-05-06 14:35 | Diagnostic Imaging Report ---
INDICATION: Dysphagia. COMPARISON: Correlation is made with CT neck and chest study from 03/22/2018. TECHNIQUE: The patient ingested effervescent crystals as well as thin and thick barium and imaging of the esophagus was performed. Total of 1 minute and 16 seconds of fluoroscopy was utilized. FINDINGS: The upper esophagus has a normal appearance. In particular, no abnormal extension of contrast is seen into an esophageal pouch. No communication with an air-containing structure in the lower right neck is seen to account for the CT abnormality on recent CT. This may communicate with the trachea. The esophagus appears to have a smooth contour. No stricture is seen. No esophageal mass is seen. No gastroesophageal reflux or hiatal hernia is demonstrated. IMPRESSION: Unremarkable esophagram. Dictated by: Dictated on workstation # [id number]
== END ==
LOC: RAD 11:17
PROVIDERS: ATTEND Otolaryngology Otolaryngology/Facial Plastic Surgery
DX: K22.5 Diverticulum of esophagus, acquired (principal)
CPT/HCPCS: 74220

== ENCOUNTER → 2018-05-20 | Outpatient (CLI) | payer MEDICARE, OTHER ==
[~2018-05-20] MED LIST changes: -BARIUM SUSPENSION 105% (LIQUID POLIBAR PLUS) 240 ML/DOSE PO ONE; -BARIUM SUSPENSION 60% (LIQUID EZ PAQUE) 240 ML DOSE PO ONE
== END ==
LOC: CARD 10:26
PROVIDERS: ATTEND Internal Medicine Cardiovascular Disease
DX: I10 Essential (primary) hypertension (principal); I65.29 Occlusion and stenosis of unspecified carotid artery; E78.2 Mixed hyperlipidemia; E07.9 Disorder of thyroid, unspecified; G45.9 Transient cerebral ischemic attack, unspecified
CPT/HCPCS: 93306

== ENCOUNTER → 2018-05-23 | Outpatient (CLI) | payer MEDICARE, OTHER ==
[~2018-05-23] MED LIST changes: +CATHETER FLUSH 10 ML SYR IV PRN; +REGADENOSON 0.4 MG/5 ML SYR (LEXISCAN) IV ONE
[2018-05-23 09:26] VITALS: BP 139/79
[2018-05-23 09:30] VITALS: BP 129/75
--- NOTE | 2018-05-23 14:48 | STRESS TEST ---
DATE OF SERVICE: 05/23/2018 LEXISCAN MYOVIEW STRESS TEST Baseline heart rate is 66. Baseline blood pressure 139/79. Baseline EKG is sinus rhythm with no ischemic changes. In summary, the patient was injected with 10.11 mCi of technetium-99 Myoview and the resting images were obtained. Then, the patient received 0.4 mg of Lexiscan followed by 31.0 mCi of technetium-99 Myoview. Throughout the test, there were no EKG changes. The resting and stress images were reviewed and compared in the short axis, horizontal long axis, and vertical long axis views. Review of the images showed breast attenuation with mild decrease uptake involving the mid to apical anterior wall with mild reversibility. SSS is 7, SDS 6. TID showed transient ischemic dilatation with TID value 1.62. On the gated images, the left ventricle appeared to be small with good contractility. Calculated ejection fraction 88%. CONCLUSION: 1. The patient tolerated Lexiscan well. 2. Small left ventricular size with transient ischemic dilatation, TID value 1.62, could be secondary to the small left ventricular size. 3. Breast attenuation with mild ischemia involving the mid to apical anterior wall. Job ID: [id number] DocumentID: [id number] Dictated Date: 05/23/2018 12:18:01 Small Business Consultant Date: 05/23/2018 14:47:28 Dictated By: JORGE L IVERSON MD
== END ==
LOC: CARD 07:39
PROVIDERS: ATTEND Internal Medicine Cardiovascular Disease
DX: I10 Essential (primary) hypertension (principal); E78.2 Mixed hyperlipidemia; G45.9 Transient cerebral ischemic attack, unspecified; E07.9 Disorder of thyroid, unspecified
CPT/HCPCS: 78452; 93017

== ENCOUNTER 2018-06-01 10:28 | Day surgery (SDC) | payer MEDICARE, OTHER ==
[2018-06-01] VITALS (11 sets, daily range): BP systolic 95–165; BP diastolic 50–96
[~2018-06-01 10:28] MED LIST changes: -CATHETER FLUSH 10 ML SYR IV PRN; -REGADENOSON 0.4 MG/5 ML SYR (LEXISCAN) IV ONE
[2018-06-01] MEDS ORDERED: HEParin (CATH LAB) 2,000 ML IV ONE (10:36)
[2018-06-01] MEDS ORDERED: NS IV 1000 ML 1,000 ML ONE (10:36)
[2018-06-01] MEDS ORDERED: LIDOCAINE 1% INJ 20 ML 20 ML VIAL ONE (10:36)
[2018-06-01 11:14] LABS: HEMOGLOBIN 13.1 G/DL (11.5-16.0); MEAN PLATELET VOLUME 9.1 FL (7.4-10.4); WHITE BLOOD COUNT 7.2 10^3/uL (4.3-11.0)
--- NOTE | 2018-06-01 11:15 | Diagnostic Imaging Report ---
INDICATION: Pre-heart catheterization. TIME OF EXAM: 10:56 AM COMPARISON: No prior studies are available for comparison. FINDINGS: There are calcified lymph nodes in the daniel bilaterally consistent with prior granulomatous exposure. No infiltrate or failure is seen. No effusion or pneumothorax is identified. IMPRESSION: No acute cardiopulmonary process is detected. Dictated by: Dictated on workstation # [id number]
[2018-06-01 11:30] LABS: INR 0.9 (0.8-1.4); PROTHROMBIN TIME PATIENT 12.2 SEC (12.2-14.7)
[2018-06-01 11:34] LABS: ALANINE AMINOTRANSFERASE 33 U/L (0-55); ALBUMIN 4.5 GM/DL (3.2-4.5); ALKALINE PHOSPHATASE 84 U/L (40-136); BILIRUBIN,TOTAL 0.3 MG/DL (0.1-1.0); BUN/CREATININE RATIO 19; CALCIUM 9.8 MG/DL (8.5-10.1); CARBON DIOXIDE 25 MMOL/L (21-32); CHLORIDE 101 MMOL/L (98-107); CHOLESTEROL 159 MG/DL (< 200); CREATININE SERUM 0.83 MG/DL (0.60-1.30); GFR ESTIMATED > 60; GLUCOSE 101 MG/DL (70-105); HDL CHOLESTEROL 54 MG/DL (40-60); POTASSIUM 4.2 MMOL/L (3.6-5.0); SODIUM 137 MMOL/L (135-145); TOTAL PROTEIN 7.3 GM/DL (6.4-8.2); TRIGLYCERIDES 82 MG/DL (<150); VLDL CHOLESTEROL 16 MG/DL (5-40)
[2018-06-01] MEDS ORDERED: [UNRECOGNIZED DRUG - OTHER] PO (11:42)
[2018-06-01] MEDS ORDERED: L.AC1CAP6 PO (11:42)
[2018-06-01] MEDS ORDERED: OMEP20TA33 PO (11:42)
[2018-06-01] MEDS ORDERED: LEVO88TA2 PO (11:42)
[2018-06-01] MEDS ORDERED: LISI-552 PO (11:42)
[2018-06-01] MEDS ORDERED: DIAZ2TAB2 PO (11:42)
[2018-06-01] MEDS ORDERED: VITA1CAP19 PO (11:42)
[2018-06-01] MEDS ORDERED: FLUT9.9S NS (11:42)
[2018-06-01] MEDS ORDERED: LEVO5TAB12 PO (11:42)
[2018-06-01] MEDS ORDERED: GLUC-203 PO (11:42)
[2018-06-01] MEDS ORDERED: [UNRECOGNIZED DRUG - OTHER] PO (11:42)
[2018-06-01] MEDS ORDERED: NS IV 1000 ML 1,000 ML IV SCH ×2 (11:45→13:27)
--- NOTE | 2018-06-01 11:45 | NUR ---
UPDATED MED REC WITH PATIENTS MED LIST WELL COMPARING WITH THE LIST FROM THE OFFICE.
--- NOTE | 2018-06-01 11:51 | Cardiac Procedure Note-CS/ASA ---
Pre-Procedure Note Pre-Op Procedure Note H&P Reviewed The H&P was reviewed, patient examined and no changes noted. Date H&P Reviewed: Jun 01, 2018 Time H&P Reviewed: 11:51 Conscious Sedation Pre-Proced Time 11:51 ASA Score 3 For ASA 3 and 4: Consider anesthesia and medical clearance. Also, for patients with a history of failed moderate sedation consider anesthesia. Airway Lungs Heart ASA score ASA 1: a normal healthy patient ASA 2: a patient with a mild systemic disease (mid diabetes, controlled hypertension, obesity x ASA 3: a patient with a severe systemic disease that limits activity (angina , COPD, prior Myocardial infarction) ASA 4: a patient with an incapacitating disease that is a constant threat to life (CHF, renal failure) ASA 5: a moribund patient not expected to survive 24 hrs. (ruptured aneurysm) ASA 6: a declared brain- patient whose organs are being harvested. For emergent operations, add the letter E after the classification Mallampati Classification Grade 3 Sedation Plan Analgesia, Amnesia, Plan communicated to team members, Discussed options with patient/fam, Discussed risks with patient/fam The patient is an appropriate candidate to undergo the planned procedure, sedation, and anesthesia. The patient immediately re-assessed prior to indication. JORGE L IVERSON MD Jun 01, 2018 11:51
--- OUTSIDE RECORDS SUMMARY | 2018-06-01 12:15 | XMS REPORT | Clinical Summary ---
Author Author [facility] Organization [facility] Address Unknown Phone Unavailable Care Team Providers Care Siderographist Name Role Phone Ange Frazier MD PCP [...] Vaccine (#1) 2018 Implants Implanted Type Area Boat Finisher Device Expiration Model / Identifier Date Serial / Lot Implant Cement Bone Albia G-Hv Non-Tissue Right: BIOMET 05/20/2015 200850 / W/Gentamicin Antibiotic 40gr [id number] Implant Knee / (Thicker Than [id number] Pmm# [id number]) - [id number] Implanted: Qty: 1 on 11/07/2013 Implant Cement Bone Albia G-Hv Non-Tissue Right: BIOMET 05/20/2015 [id number] / W/Gentamicin Antibiotic 40gr [id number] Implant Knee / (Thicker Than 261696 Pmm# [id number]) - [id number] Implanted: Qty: 1 on 11/07/2013 by Cuate Mcdonnell DO Aesculap Braun As [place] Femur Non-Tissue Right: Aesculap 2023 / Miguelito. Size 62,5mm X 43,5 Mm Right F4 Implant Knee / R [id number] Implanted: Qty: 1 on 11/07/2013 by Cuate Mcdonnell DO Braun As Obturator Screw 0 12mm X Non-Tissue Right: AESCULAP ORTHO / 7mm Implant Knee / Implanted: Qty: 1 on 11/07/2013 by [id number] Cuate Mcdonnell DO Braun Fleetwood Patella P2 0 30 Mm X Non-Tissue Right: AESCULAP ORTHO 06/17/2018 / 8 Mm Implant Knee / Implanted: Qty: 1 on 11/07/2013 by [id number] Cuate Mcdonnell DO Braun As Fabricio Cr/Ps Tibial Non-Tissue Right: AESCULAP ORTHO 04/19 / Plateau 75 Mm X 48mm T3 Implant Knee / Implanted: Qty: 1 on 11/07/2013 by [id number] Cuate Mcdonnell DO Braun [place]wood Gliding Surface Non-Tissue Right: AESCULAP ORTHO 07/18 / T3/T3 + X 10 Mm Implant Knee / Implanted: Qty: 1 on 11/07/2013 by [id number] Cuate Mcdonnell DO Lens Implanted: Explanted: Results Not on filefrom Last 3 Months
--- OUTSIDE RECORDS SUMMARY | 2018-06-01 12:18 | XMS REPORT | CCD ---
Author Author [facility]en [facility] Organization [facility] Address [address] [place] [address] Phone Care Team Providers Care Senior Cobol Developer Name Role Phone PP Unavailable CCM Unavailable Summary Purpose Interface Exchange Insurance Providers Payer name Policy type / Coverage type Covered republican ID Effective Begin Date Effective End Date WPS Medicare Part B Medicare Part B [id number] Unknown [place] Long-Term Life Insurance Medicare Part B [id number] Unknown Family history Mother Diagnosis Age At [...] spouses - 02/11/[address]: 741430544 Never smoker 02/11/2015 Alcohol history Unknown occasionally drinks alcohol 02/11/2015 Allergies, Adverse Reactions, Alerts Substance Reaction Codes Entered Date Inactivated Date Status CODEINE RxNorm: 2670 02/11/2015 No Inactive Date Active allergy Unknown 12/23/2016 No Inactive Date Active ciprofloxacin rash, RxNorm: 40084 02/26/2015 No Inactive Date Active hydrocodone Unknown 02/11/2015 No Inactive Date Active PREDNISONE RxNorm: 8640 03/29/2018 No Inactive Date Active GABAPENTIN Unknown 12/23/2016 No Inactive Date Active SULFA (SULFONAMIDES) Unknown 02/11/2015 No Inactive Date Active Past Medical History Illness Codes Condition Status Onset Date Resolved Date Essential (primary) hypertension ICD-9: 401.1 ICD-10: I10 Active 04/01/2018 Unknown Low back pain ICD-9: 724.2 ICD-10: M54.5 Active 04/21/2018 Unknown Other fatigue ICD-9: 780.79 ICD-10: R53.83 Active 02/26/2016 Unknown Other malaise ICD-9: 780.79 ICD-10: R53.81 Active 09/22/2017 Unknown Otalgia, right ear ICD -9: 388.70 ICD-10: H92.01 Active 03/25/2017 Unknown Dysuria ICD-9: 788.1 ICD-10: R30.0 Active 02/20/2015 Unknown Headache ICD-9: 784.0 ICD-10: R51 Active 07/06/2016 Unknown Hypothyroidism, unspecified ICD-9: 244.9 ICD-10: E03.9 Active 02/26/2016 Unknown Nausea ICD-9: 787.02 ICD-10: R11.0 Active 04/04/2018 Unknown Acute laryngopharyngitis ICD-9: 465.0 ICD-10: J06.0 Active 02/26/2016 Unknown Candidal stomatitis ICD-9: 112.0 ICD-10: B37.0 Active 04/01/2018 Unknown Dizziness and giddiness ICD-9: 780.4 ICD-10: R42 Active 09/28/2016 Unknown Other acute sinusitis ICD-9: 461.8 ICD-10: J01.80 Active 11/03/2017 Unknown Acute recurrent maxillary sinusitis ICD-9: 461.0 ICD-10: J01.01 Active 03/24/2018 Unknown Unspecified mycosis ICD-9: 117.9 ICD-10: B49 Active 03/24/2018 Unknown Abnormal findings on diagnostic imaging of other specified body structures ICD-9: 793.99 ICD-10: R93.89 Active 03/01/2018 Unknown Encounter for general adult medical examination with abnormal findings ICD-9: V70.0 ICD-10: Z00.01 Active 12/23/2016 Unknown Other allergic rhinitis ICD-9: 477.8 ICD-10: J30.89 Active 02/26/2016 Unknown Acute cystitis with hematuria ICD-9: 595.0 ICD-10: N30.01 Active 11/18/2017 Unknown Anemia, unspecified ICD-9: 285.9 ICD-10: D64.9 Active 09/27/2017 Unknown Pain in left knee ICD- 9: 719.46 ICD-10: M25.562 Active 09/22/2017 Unknown Pain in right knee ICD -9: 719.46 ICD-10: M25.561 Active 09/22/2017 Unknown Acute bronchitis due to other specified organisms ICD-9: 466.0 ICD-10: J20.8 Active 04/01/2017 Unknown Cough ICD-9: 786.2 ICD-10: R05 Active 04/01/2017 Unknown Benign paroxysmal vertigo, bilateral ICD-9: 386.11 ICD-10: H81.13 Active 12/08/2016 Unknown Impaired fasting glucose ICD-9: 790.21 ICD-10: R73.01 Active 12/09/2016 Unknown 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 Active 06/01/2016 Unknown Essential (primary) hypertension ICD-9: 401.9 ICD-10: I10 Active 09/09/2015 Unknown Mixed hyperlipidemia ICD-9: 272.2 ICD-10: E78.2 Active 09/09/2015 Unknown Other specified hypothyroidism ICD-9: 244.8 ICD-10: [...] Problems Condition Codes Effective Dates Condition Status Essential (primary) hypertension ICD-9: 401.1 ICD-10: I10 04/01/2018 Active Low back pain ICD-9: 724.2 ICD-10: M54.5 04/21/2018 Active Other fatigue ICD-9: 780.79 ICD-10: R53.83 02/26/2016 Active Other malaise ICD-9: 780.79 ICD-10: R53.81 09/22/2017 Active Otalgia, right ear ICD -9: 388.70 ICD-10: H92.01 03/25/2017 Active Dysuria ICD-9: 788.1 ICD-10: R30.0 02/20/2015 Active Headache ICD-9: 784.0 ICD-10: R51 07/06/2016 Active Hypothyroidism, unspecified ICD-9: 244.9 ICD-10: E03.9 02/26/2016 Active Nausea ICD-9: 787.02 ICD-10: R11.0 04/04/2018 Active Acute laryngopharyngitis ICD-9: 465.0 ICD-10: J06.0 02/26/2016 Active Candidal stomatitis ICD-9: 112.0 ICD-10: B37.0 04/01/2018 Active Dizziness and giddiness ICD-9: 780.4 ICD-10: R42 09/28/2016 Active Other acute sinusitis ICD-9: 461.8 ICD-10: J01.80 11/03/2017 Active Acute recurrent maxillary sinusitis ICD-9: 461.0 ICD-10: J01.01 03/24/2018 Active Unspecified mycosis ICD-9: 117.9 ICD-10: B49 03/24/2018 Active Abnormal findings on diagnostic imaging of other specified body structures ICD-9: 793.99 ICD-10: R93.89 03/01/2018 Active Encounter for general adult medical examination with abnormal findings ICD-9: V70.0 ICD-10: Z00.01 12/23/2016 Active Other allergic rhinitis ICD-9: 477.8 ICD-10: J30.89 02/26/2016 Active Acute cystitis with hematuria ICD-9: 595.0 ICD-10: N30.01 11/18/2017 Active Anemia, unspecified ICD-9: 285.9 ICD-10: D64.9 09/27/2017 Active Pain in left knee ICD- 9: 719.46 ICD-10: M25.562 09/22/2017 Active Pain in right knee ICD -9: 719.46 ICD-10: M25.561 09/22/2017 Active Acute bronchitis due to other specified organisms ICD-9: 466.0 ICD-10: J20.8 04/01/2017 Active Cough ICD-9: 786.2 ICD-10: R05 04/01/2017 Active Benign paroxysmal vertigo, bilateral ICD-9: 386.11 ICD-10: H81.13 12/08/2016 Active Impaired fasting glucose ICD-9: 790.21 ICD-10: R73.01 12/09/2016 Active 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 06/01/2016 Active Essential (primary) hypertension ICD-9: 401.9 ICD-10: I10 09/09/2015 Active Mixed hyperlipidemia ICD-9: 272.2 ICD-10: E78.2 09/09/2015 Active Other specified hypothyroidism ICD-9: 244.8 ICD-10: [...] Start Date Stop Date Status Fill Instructions nystatin 100,000 unit/gram topical cream RxNorm: 000845 1 Gram(s) TOP TID as needed 05/30/2018 No Stop Date Active metoprolol succinate ER 50 mg tablet,extended release 24 hr RxNorm: 307791 1 Tablet(s) daily may take 1 extra tab daily if systolic bp elevated 05/03/2018 11/28/2018 Active metoprolol succinate ER 50 mg tablet,extended release 24 hr RxNorm: 084640 Tablet (s) Tablet(s) TAKE 1 TABLET BY MOUTH DAILY 05/03/2018 05/02/2018 Inactive lisinopril 20 mg tablet RxNorm: 602603 TAKE 1 TABLET BY MOUTH TWICE DAILY 04/22/2018 09/18/2018 Active Generic For:*PRINIVIL 20 MG TABLET 04/22/2018 9:57:59 AM levocetirizine 5 mg tablet RxNorm: 104576 1 Tablet(s) PO daily 04/22/2018 04/21/2018 Inactive Singulair 10 mg tablet RxNorm: 651313 1 Tablet(s) PO QHS 201804/21/2018 Inactive Singulair 10 mg tablet RxNorm: 869650 1 Tablet(s) PO QHS 201805/12/2018 Inactive levocetirizine 5 mg tablet RxNorm: 142620 1 Tablet(s) PO daily 04/22/2018 05/21/2018 Inactive ceftriaxone 500 mg solution for injection RxNorm: 8484756 Inj 04/08/2018 04/08/2018 Inactive ceftriaxone 500 mg solution for injection RxNorm: 4381712 Inj 04/07/2018 04/07/2018 Inactive ceftriaxone 500 mg solution for injection RxNorm: 0418271 Inj 04/06/2018 04/06/2018 Inactive ketorolac 60 mg/2 mL intramuscular solution RxNorm: 1467130 Milliliter(s) IM 04/05/2018 04/05/2018 Inactive ceftriaxone 500 mg solution for injection RxNorm: 1292711 Inj 04/05/2018 04/05/2018 Inactive ondansetron 4 mg disintegrating tablet RxNorm: 644235 1 Tablet(s) PO TID as needed nausea 04/04/2018 No Stop Date Active ketorolac 30 mg/mL injection solution RxNorm: 538623 2 Milliliter(s) Inj 04/04/2018 04/04/2018 Inactive ceftriaxone 500 mg solution for injection RxNorm: 4449940 Inj 04/04/2018 04/04/2018 Inactive nystatin 100,000 unit/mL oral suspension RxNorm: 742171 4 Milliliter(s) PO QID 04/01/2018 04/05/2018 Inactive doxycycline hyclate 100 mg tablet RxNorm: 4651206 1 Tablet(s) PO BID 04/01/2018 04/10/2018 Inactive amoxicillin 500 mg capsule RxNorm: 883661 1 Capsule(s) PO TID 03/24/2018 04/02/2018 Inactive prednisone 10 mg tablet RxNorm: 353223 1 Tablet(s) PO UD 6 pills on day 1 and 2 and then decrease by one pill every other day until prescription is done 03/24/2018 05/12/2018 Inactive metoprolol succinate ER 50 mg tablet,extended release 24 hr RxNorm: 121078 Tablet (s) TAKE 1 TABLET BY MOUTH DAILY 03/21/2018 05/02/2018 Inactive PLEASE SEND REFILL REQUESTS ELECTRONICALLY!! Synthroid 88 mcg tablet RxNorm: 909219 TAKE 1 TABLET BY MOUTH DAILY 03/08/2018 08/04/2018 Active 03/07/2018 11:21:21 AM pravastatin 80 mg tablet RxNorm: 879710 Tablet(s) 1 Tablet(s) PO daily 03/01/2018 02/23/2019 Active Kenalog 40 mg/mL suspension for injection RxNorm: 2829492 Milliliter(s) Inj 12/24/2017 12/24/2017 Inactive cetirizine 10 mg tablet RxNorm: 2497809 TAKE 1 TABLET BY MOUTH DAILY 12/21/2017 04/19/2018 Inactive Generic For:*ZYRTEC 10 MG TABLET 12/21/2017 10:08:05 AM Synthroid 88 mcg tablet RxNorm: 423495 TAKE 1 TABLET BY MOUTH DAILY 12/07/2017 03/06/2018 Inactive 12/06/2017 11:46:49 AM Lipitor 80 mg tablet RxNorm: 820341 1 Tablet(s) PO daily 201702/28/2018 Inactive pravastatin 80 mg tablet RxNorm: 833861 1 Tablet(s) PO daily 11/29/2017 Inactive Lipitor 80 mg tablet RxNorm: 352254 1 Tablet(s) PO daily 201711/28/2017 Inactive lisinopril 20 mg tablet RxNorm: 227395 TAKE 1 TABLET BY MOUTH TWICE DAILY 11/23/2017 04/21/2018 Inactive Generic For:*PRINIVIL 20 MG TABLET 11/23/2017 11:29 :44 AM Macrobid 100 mg capsule RxNorm: 633056 1 Capsule(s) PO BID 06/201711/25/2017 Inactive Macrobid 100 mg capsule RxNorm: 472809 1 Capsule(s) PO BID 06/201711/18/2017 Inactive Lomotil 2.5 mg-0.025 mg tablet RxNorm: 4726031 1 -2 Tablet(s) PO TID as needed 11/19/2017 11/25/2017 Inactive Lomotil 2.5 mg-0.025 mg tablet RxNorm: 4417174 1 -2 Tablet(s) PO TID as needed 11/19/2017 11/18/2017 Inactive Pyridium 200 mg tablet RxNorm: 6694453 1 Tablet(s) PO TID as needed 11/18/2017 11/22/2017 Inactive Augmentin 500 mg-125 mg tablet RxNorm: 088720 1 Tablet(s) PO TID 11/18/2017 11/27/2017 Inactive Keflex 500 mg capsule RxNorm: 324354 1 Capsule(s) PO TID 201711/09/2017 Inactive Denavir 1 % topical cream RxNorm: 134010 1 TOP TID as needed cold sores 11/01/2017 01/29/2018 Inactive Denavir 1 % topical cream RxNorm: 643206 1 TOP TID as needed cold sores 11/01/2017 10/31/2017 Inactive Synthroid 88 mcg tablet RxNorm: 941463 TAKE 1 TABLET BY MOUTH DAILY 09/29/2017 11/27/2017 Inactive 09/29/2017 12:58:07 PM pravastatin 80 mg tablet RxNorm: 796739 1 Tablet(s) PO daily 08/30/2017 Inactive pravastatin 80 mg tablet RxNorm: 264734 1 Tablet(s) PO daily 11/28/2017 Inactive Synthroid 88 mcg tablet RxNorm: 569303 TAKE 1 TABLET BY MOUTH DAILY 08/30/2017 09/28/2017 Inactive 08/30/2017 10:53:26 AM metoprolol succinate ER 50 mg tablet,extended release 24 hr RxNorm: 919555 Tablet (s) TAKE 1 TABLET BY MOUTH DAILY 08/17/2017 03/14/2018 Inactive PLEASE SEND REFILL REQUESTS ELECTRONICALLY!! lisinopril 20 mg tablet RxNorm: 357053 TAKE 1 TABLET BY MOUTH TWICE DAILY 06/18/2017 11/14/2017 Inactive Generic For:*PRINIVIL 20 MG TABLET 06/18/2017 1:31: 00 PM Synthroid 88 mcg tablet RxNorm: 426190 TAKE 1 TABLET BY MOUTH DAILY 05/24/2017 08/21/2017 Inactive 05/24/2017 2:13:21 PM cetirizine 10 mg tablet RxNorm: 7899234 1 Tablet(s) PO daily 12/12/2017 Inactive Zithromax Z-Russell 250 mg capsule RxNorm: 178098 1 Capsule(s) PO 04/02/2017 04/05/2017 Inactive Zithromax Z-Russell 250 mg tablet RxNorm: 692211 1 Tablet(s) PO 04/01/2017 Inactive Zithromax Z-Russell 250 mg capsule RxNorm: 614065 1 Capsule(s) PO 04/02/2017 04/01/2017 Inactive Zithromax Z-Russell 250 mg tablet RxNorm: 994575 1 Tablet(s) PO 04/06/2017 Inactive Ventolin HFA 90 mcg/actuation aerosol inhaler RxNorm: 560718 2 INH QID as needed - for the first 3 days inhale at least two puffs three times daily, then use as needed for shortness of breath 04/01/2017 04/30/2017 Inactive Keflex 500 mg capsule RxNorm: 765441 1 Capsule(s) PO TID 201604/01/2017 Inactive meclizine 25 mg tablet RxNorm: 352898 Tablet(s) 1 Tablet(s) PO Q6 PRN 03/25/2017 03/24/2017 Inactive dizziness Kenalog 40 mg/mL suspension for injection RxNorm: 8271442 1 Milliliter(s) Inj 03/25/2017 03/25/2017 Inactive meclizine 25 mg tablet RxNorm: 693255 1 Tablet(s) PO Q6 PRN 1 Tablet(s) PO Q6 PRN 03/25/2017 05/12/2018 Inactive dizziness meclizine 25 mg tablet RxNorm: 712619 1 Tablet(s) PO Q6 PRN 03/24/2017 Inactive dizziness lisinopril 20 mg tablet RxNorm: 285753 1 Tablet(s) PO BID 01/1506/13/2017 Inactive metoprolol succinate ER 50 mg tablet,extended release 24 hr RxNorm: 216847 TAKE 1 TABLET BY MOUTH DAILY 01/07/20172017 Inactive Generic For:TOPROL XL 50MG TAB 01/07/2017 12:38:23 PM Synthroid 88 mcg tablet RxNorm: 745141 TAKE 1 TABLET BY MOUTH DAILY 12/25/2016 05/23/2017 Inactive 12/25/2016 9:47:08 AM Zithromax Z-Russell 250 mg tablet RxNorm: 021927 Tablet(s) PO UD 03/24/2017 Inactive meclizine 25 mg tablet RxNorm: 399142 1 Tablet(s) PO Q6 PRN 12/20/2016 Inactive dizziness Kenalog 40 mg/mL suspension for injection RxNorm: 2326156 Milliliter(s) Inj 12/08/2016 12/08/2016 Inactive meloxicam 15 mg tablet RxNorm: 505742 1 Tablet(s) PO daily 12/20/2016 Inactive cetirizine 10 mg tablet RxNorm: 5560985 1 Tablet(s) PO daily 05/16/2017 Inactive pravastatin 40 mg tablet RxNorm: 108288 1 Tablet(s) PO BID 07/201608/30/2017 Inactive Cancel 80 mg tab lisinopril 20 mg tablet RxNorm: 444553 1 Tablet(s) PO BID 08/1212/22/2016 Inactive Synthroid 88 mcg tablet RxNorm: 316025 1 Tablet(s) PO TAKE ONE (1) TABLET BY MOUTH DAILY 07/28/2016 12/24/2016 Inactive decrease dose hydralazine 25 mg tablet RxNorm: 970531 1 Tablet(s) PO TID as needed for Systolic blood pressure over 170 07/06/20162016 Inactive lisinopril 20 mg tablet RxNorm: 499262 1 Tablet(s) PO BID to replace your other lisinopril dose 07/06/2016 08/04/2016 Inactive lisinopril 10 mg tablet RxNorm: 784607 TAKE ONE TABLET BY MOUTH TWICE DAILY 06/10/2016 08/11/2016 Inactive Generic For:ZESTRIL 10 MG TABLET 06/09/2016 12:58: 50 PM triamcinolone acetonide 0.1 % topical cream RxNorm: 4779486 1 Application TOP TID as needed 06/01/2016 No Stop Date Active nystatin 100,000 unit/gram topical cream RxNorm: 793167 1 Gram(s) TOP TID as needed 06/01/2016 05/29/2018 Inactive metoprolol succinate ER 50 mg tablet,extended release 24 hr RxNorm: 682141 1 Tablet(s) PO daily 05/26/2016 12/21/2016 Inactive cetirizine 10 mg tablet RxNorm: 4247559 1 Tablet(s) PO daily 10/18/2016 Inactive Synthroid 88 mcg tablet RxNorm: 631212 1 Tablet(s) PO TAKE ONE (1) TABLET BY MOUTH DAILY 03/06/2016 03/07/2018 Inactive Brand name only! Synthroid 88 mcg tablet RxNorm: 176425 1 Tablet(s) PO TAKE ONE (1) TABLET BY MOUTH DAILY 03/04/2016 03/05/2016 Inactive decrease dose cetirizine 10 mg tablet RxNorm: 2532968 1 Tablet(s) PO daily 03/22/2016 Inactive amoxicillin 500 mg capsule RxNorm: 644170 1 Capsule(s) PO TID 02/27/2016 03/04/2016 Inactive lisinopril 10 mg tablet RxNorm: 049973 TAKE ONE TABLET BY MOUTH TWICE DAILY 02/06/2016 06/04/2016 Inactive Generic For:ZESTRIL 10 MG TABLET 02/06/2016 12:16: 38 PM Synthroid 100 mcg tablet RxNorm: 402547 TAKE ONE (1) TABLET BY MOUTH DAILY 01/03/2016 03/03/2016 Inactive 01/03/2016 10:35:14 AM N O T I C E Last quantity doesn't match original quantity lisinopril 10 mg tablet RxNorm: 178902 1 Tablet(s) PO BID 10/0301/31/2016 Inactive Synthroid 100 mcg tablet RxNorm: 585413 1 Tablet(s) PO daily 01/02/2016 Inactive metoprolol succinate ER 50 mg tablet,extended release 24 hr RxNorm: 697720 1 Tablet(s) PO daily 10/04/2015 04/30/2016 Inactive Tylenol Arthritis 650 mg tablet,extended release RxNorm: 4147743 2 Tablet(s) PO TID 09/10/2015 No Stop Date Active metoprolol succinate ER 50 mg tablet,extended release 24 hr RxNorm: 569384 1 Tablet(s) PO daily 09/05/2015 10/03/2015 Inactive pravastatin 80 mg tablet RxNorm: 298348 1 Tablet(s) PO QHS 08/30/2015 Inactive pravastatin 40 mg tablet RxNorm: 773822 1 Tablet(s) PO BID 08/29/2015 Inactive Cancel 80 mg tab pravastatin 40 mg tablet RxNorm: 234927 1 Tablet(s) PO BID 08/19/2016 Inactive Cancel 80 mg tab lisinopril 10 mg tablet RxNorm: 891142 1 Tablet(s) PO BID 06/1308/11/2016 Inactive lisinopril 10 mg tablet RxNorm: 407700 1 Tablet(s) PO BID 06/1310/03/2015 Inactive Synthroid 100 mcg tablet RxNorm: 807136 1 Tablet(s) PO daily 10/03/2015 Inactive ceftriaxone 1 gram solution for injection RxNorm: 4813542 Inj 03/01/2015 03/01/2015 Inactive ceftriaxone 1 gram solution for injection RxNorm: 9615563 Inj 02/28/2015 02/28/2015 Inactive ceftriaxone 1 gram solution for injection RxNorm: 4208330 Inj 02/27/2015 02/27/2015 Inactive ceftriaxone 1 gram solution for injection RxNorm: 3026876 Inj 02/26/2015 02/26/2015 Inactive ceftriaxone 1 gram solution for injection RxNorm: 3606590 Inj 02/25/2015 02/25/2015 Inactive phenazopyridine 200 mg tablet RxNorm: 3107246 1 Tablet(s) PO Q8 02/21/2015 02/20/2015 Inactive Cipro 500 mg tablet RxNorm: 219639 1 Tablet(s) PO BID 201402/20/2015 Inactive phenazopyridine 200 mg tablet RxNorm: 1638398 1 Tablet(s) PO Q8 02/21/2015 02/25/2015 Inactive Cipro 500 mg tablet RxNorm: 084065 1 Tablet(s) PO BID 201402/27/2015 Inactive lisinopril 10 mg tablet RxNorm: 590240 1 Tablet(s) PO BID 02/1406/12/2015 Inactive metoprolol succinate ER 50 mg tablet,extended release 24 hr RxNorm: 921212 3/4 Tablet(s) PO daily 02/11/2015 09/04/2015 Inactive Voltaren 1 % topical gel RxNorm: 017666 2 Gram(s) TOP QID use this on affected joints up to four times daily. 02/11/2015 03/12/2015 Inactive Probiotic oral RxNorm : 6205 oral No Start Date Active aspirin 81 mg tablet RxNorm: 077043 1 Tablet(s) PO daily No Start Date Active Super B-Complex tablet RxNorm: 1 Tablet(s) PO No Start Date Active Super-D3+ oral RxNorm : oral No Start Date Active Prilosec OTC 20 mg tablet,delayed release RxNorm: 742550 2 Tablet(s) PO QAM No Start Date Active Flonase Allergy Relief 50 mcg/actuation nasal spray, suspension RxNorm: 1674495 1 [place] NASAL as needed No Start Date Active Move Free Ultra 40 mg-10 mg-3.3 mg tablet RxNorm: 1 Tablet(s) PO daily No Start Date Active metoprolol tartrate 50 mg tablet RxNorm: 715857 1 Tablet(s) PO daily No Start Date 02/10/2015 Inactive lisinopril 10 mg tablet RxNorm: 960673 1 Tablet(s) PO BID No Start Date 02/13/2015 Inactive pravastatin 80 mg tablet RxNorm: 562951 1 Tablet(s) PO daily No Start Date 08/29/2015 Inactive Flonase Allergy Relief 50 mcg/actuation nasal spray, suspension RxNorm: 5315885 1 [place] NASAL BID No Start Date 2018 Inactive Synthroid 100 mcg tablet RxNorm: 601741 1 Tablet(s) PO daily No Start Date 06/09/2015 Inactive lisinopril 40 mg tablet RxNorm: 426559 1 Tablet(s) PO BID No Start Date 02/28/2018 Inactive Tylenol Arthritis 650 mg tablet,extended release RxNorm: 3176322 4 Tablet(s) PO daily No Start Date 09/09/2015 Inactive Medication Administered Medication Codes Instructions Start Date Status ceftriaxone 500 mg solution for injection RxNorm: 9206871 04/08/2018 No longer Active ceftriaxone 500 mg solution for injection RxNorm: 9481721 04/07/2018 No longer Active ceftriaxone 500 mg solution for injection RxNorm: 1976468 04/06/2018 No longer Active ceftriaxone 500 mg solution for injection RxNorm: 3058372 04/05/2018 No longer Active ketorolac 60 mg/2 mL intramuscular solution RxNorm: 9595963 Milliliter 04/05/2018 No longer Active ceftriaxone 500 mg solution for injection RxNorm: 7931867 04/04/2018 No longer Active ketorolac 30 mg/mL injection solution RxNorm: 732146 2Milliliter 04/04/2018 No longer Active Kenalog 40 mg/mL suspension for injection RxNorm: 2716347 Milliliter 12/24/2017 No longer Active Kenalog 40 mg/mL suspension for injection RxNorm: 4337710 1Milliliter 03/25/2017 No longer Active Kenalog 40 mg/mL suspension for injection RxNorm: 4201830 Milliliter 12/08/2016 No longer Active ceftriaxone 1 gram solution for injection RxNorm: 2504792 03/01/2015 No longer Active ceftriaxone 1 gram solution for injection RxNorm: 4043855 02/28/2015 No longer Active ceftriaxone 1 gram solution for injection RxNorm: 2994325 02/27/2015 No longer Active ceftriaxone 1 gram solution for injection RxNorm: 8828104 02/26/2015 No longer Active ceftriaxone 1 gram solution for injection RxNorm: 4751577 02/25/2015 No longer Active Immunizations Vaccine Codes Date Status Influenza CVX: 141 01/18/2018 completed Influenza CVX: 141 03/15/2017 completed Influenza CVX: 141 03/18/2016 completed Influenza CVX: 141 02/11/2015 completed Assessments Condition Codes Effective Dates Essential (primary) hypertension ICD-10: I10 ICD-9: 401.1 05/10/2018 Other fatigue ICD-10: R53.83 ICD-9: 780.79 05/10/2018 Low back pain ICD-10: M54.5 ICD-9: 724.2 04/21/2018 Other malaise ICD-10: R53.81 ICD-9: 780.79 04/21/2018 Otalgia, right ear ICD-10: H92.01 ICD-9: 388.70 04/13/2018 Dysuria ICD-10: R30.0 ICD-9: 788.1 04/08/2018 Headache ICD-10: R51 ICD-9: 784.0 04/05/2018 Nausea ICD-10: R11.0 ICD-9: 787.02 04/04/2018 Hypothyroidism, unspecified ICD-10: E03.9 ICD-9: 244.9 04/04/2018 Dizziness and giddiness ICD-10: R42 ICD-9: 780.4 04/01/2018 Candidal stomatitis ICD-10: B37.0 ICD-9: 112.0 04/01/2018 Other acute sinusitis ICD-10: J01.80 ICD-9: 461.8 04/01/2018 Unspecified mycosis ICD-10: B49 ICD-9: 117.9 03/24/2018 Acute recurrent maxillary sinusitis ICD-10: J01.01 ICD-9: 461.0 03/24/2018 Abnormal findings on diagnostic imaging of other specified body structures ICD-10: R93.89 ICD-9: 793.99 03/01/2018 Other allergic rhinitis ICD-10: J30.89 ICD-9: 477.8 12/24/2017 Encounter for general adult medical examination with abnormal findings ICD-10: Z00.01 ICD-9: V70.0 12/24/2017 Acute cystitis with hematuria ICD-10: N30.01 ICD-9: 595.0 11/18/2017 Anemia, unspecified ICD-10: D64.9 ICD-9: 285.9 09/27/2017 Pain in left knee ICD-10: M25.562 ICD-9: 719.46 09/22/2017 Pain in right knee ICD-10: M25.561 ICD-9: 719.46 09/22/2017 Acute bronchitis due to other specified organisms ICD-10: J20.8 ICD-9: 466.0 04/01/2017 Cough ICD-10: R05 ICD-9: 786.2 04/01/2017 Benign paroxysmal vertigo, bilateral ICD-10: H81.13 ICD-9: 386.11 12/22/2016 Impaired fasting glucose ICD-10: R73.01 ICD-9: 790.21 12/09/2016 Atrophy of thyroid (acquired) ICD-10: E03.4 ICD-9: 244.8 11/30/2016 Essential (primary) hypertension ICD-10: I10 ICD-9: 401.9 11/30/2016 Mixed hyperlipidemia ICD-10: E78.2 ICD-9: 272.2 11/30/2016 Acute laryngopharyngitis ICD-10: J06.0 ICD-9: 465.0 02/27/2016 Other specified hypothyroidism ICD-10: E03.8 ICD-9: 244.8 02/27/2016 Encounter for screening mammogram for malignant neoplasm of breast ICD-10: Z12.31 ICD-9: V76.12 09/27/2015 Unspecified osteoarthritis, unspecified site ICD-10: M19.90 ICD-9: 715.90 05/14/2015 Urinary tract infection, site not specified ICD-10: N39.0 ICD-9: 599.0 03/01/2015 Reason For Visit Reason For Visit Effective Dates Notes fatigue 05/10/2018 fatigue 04/21/2018 fatigue 04/13/2018 fatigue 04/04/2018 urinary urgency 04/01/2018 dysuria 03/24/2018 headache 03/01/2018 Annual Medicare Wellness Exam 12/24/2017 urinary retention/hesitancy 11/18/2017 earache 11/03/2017 fatigue 09/22/2017 vertigo 04/01/2017 earache 03/25/2017 Annual Medicare Wellness Exam 12/23/2016 vertigo 12/22/2016 headache 12/08/2016 hypertension 11/30/2016 headache 09/28/2016 hypertension 07/06/2016 hypertension 06/01/2016 fatigue 02/27/2016 hypertension 09/10/2015 hypertension 05/14/2015 hypertension 02/11/2015 Results Observation Observation Code Item Item Code Result Date Free T4 Zcj732 FREE T4 1.07 ng/dL 04/04/2018 Tsh Ord6 TSH (3rd IS) 1.93 uIU/mL 04/04/2018 Urine Culture Ucult Complete NO Growth Day 2 03/28/2018 Urine Culture Ucult Preliminary NO Growth Day 1 03/28/2018 Urine Culture Ucult Complete >100,000 col/ml aerobic growth sent to ref lab 11/19/2017 B12 Tfa882 B12 712.00 pg/ml 09/28/2017 C-Reactive Protein Qnt Crqnt CRP 0.1 mg/dl 09/23/2017 Comp Metabolic Zla106 NA 139 mEq/L 09/23/2017 Comp Metabolic Sjt366 K 4.8 mEq/L 09/23/2017 Comp Metabolic Unr541 CL 104 mEq/L 09/23/2017 Comp Metabolic Rps931 CO2 28.0 mEq/L 09/23/2017 Comp Metabolic Qcs496 ANION GAP 12 09/23/2017 Comp Metabolic Fck836 GLUCOSE 92 mg/dL 09/23/2017 Comp Metabolic Erk960 Creat 0.7 mg/dL 09/23/2017 Comp Metabolic Mvj942 eGFR 91 ml/min/1.73m2 09/23/2017 Comp Metabolic Kbc668 BUN 11 mg/dL 09/23/2017 Comp Metabolic Wnu103 B/C Ratio 16.4 Ratio 09/23/2017 Comp Metabolic Kpx943 CALCIUM 9.0 mg/dL 09/23/2017 Comp Metabolic Dhl565 ALK PHOS 76 U/L 09/23/2017 Comp Metabolic Mba506 AST(SGOT) 24 U/L 09/23/2017 Comp Metabolic Egm021 ALT(SGPT) 21 U/L 09/23/2017 Comp Metabolic Mdn923 BILI T 0.3 mg/dL 09/23/2017 Comp Metabolic Lot511 ALBUMIN 4.1 g/dL 09/23/2017 Comp Metabolic Vco074 TPRO 6.2 g/dL 09/23/2017 Comp Metabolic Orb298 GLOB 2.1 g/dL 09/23/2017 Comp Metabolic Ihr318 A/G Ratio 1.9 Ratio 09/23/2017 Comp Metabolic Kmy061 Osmo 277 mOsmo 09/23/2017 Sed Rate Ord21 ESR 3 mm/hr 09/22/2017 Vitamin D 25 Oh Chz5859 VITAMIN D, 25 HYDROXY 78.79 ng/mL Tsh Ord6 TSH (3rd IS) 1.01 uIU/mL 09/22/2017 Cbc With Differential Ord2 WBC 8.21 K/ul 09/22/2017 Cbc With Differential Ord2 RBC 4.18 M/ul 09/22/2017 Cbc With Differential Ord2 HGB 12.8 g/dl 09/22/2017 Cbc With Differential Ord2 Neut% 57.3 % 09/22/2017 Cbc With Differential Ord2 HCT 40.6 % 09/22/2017 Cbc With Differential Ord2 MCV 97.1 fl 09/22/2017 Cbc With Differential Ord2 Lymph% 28.9 % 09/22/2017 Cbc With Differential Ord2 MCH 30.6 pg 09/22/2017 Cbc With Differential Ord2 [place]% 10.5 % 09/22/2017 Cbc With Differential Ord2 MCHC 31.5 pg 09/22/2017 Cbc With Differential Ord2 Eos% 2.8 % 09/22/2017 Cbc With Differential Ord2 PLT 253 K/ul 09/22/2017 Cbc With Differential Ord2 Baso% 0.5 % 09/22/2017 Cbc With Differential Ord2 RDW 12.7 % 09/22/2017 Cbc With Differential Ord2 Neut ABS# 4.71 K/ul 09/22/2017 Cbc With Differential Ord2 Lymph ABS# 2.37 K/ul 09/22/2017 Cbc With Differential Ord2 [place] ABS# 0.9 K/ul 09/22/2017 Cbc With Differential Ord2 Eos ABS# 0.2 K/ul 09/22/2017 Cbc With Differential Ord2 Baso ABS# 0.0 K/ul 09/22/2017 Free T4 Sjb960 FREE T4 0.99 ng/dL 09/22/2017 %Hba1C Fwu234 % HbA1c 72991-9 6.0 % 12/10/2016 %Hba1C Tml063 Gluc Ave 126 mg/dL 12/10/2016 Tsh Ord6 hTSH II 0.89 uIU/mL 12/09/2016 Free T4 Wpp974 FREE T4 0.99 ng/dL 12/09/2016 Comp Metabolic Bpp428 NA 138 mEq/L 12/09/2016 Comp Metabolic Ean248 K 5.2 mEq/L 12/09/2016 Comp Metabolic Xck806 CL 104 mEq/L 12/09/2016 Comp Metabolic Hcu102 CO2 29.0 mEq/L 12/09/2016 Comp Metabolic Urh627 ANION GAP 10 12/09/2016 Comp Metabolic Tuy782 GLUCOSE 135 mg/dL 12/09/2016 Comp Metabolic Gbo090 Creat 0.8 mg/dL 12/09/2016 Comp Metabolic Yio663 eGFR 79 ml/min/1.73m2 12/09/2016 Comp Metabolic Yah008 BUN 18 mg/dL 12/09/2016 Comp Metabolic Igo147 B/C Ratio 23.7 Ratio 12/09/2016 Comp Metabolic Dap977 CALCIUM 9.5 mg/dL 12/09/2016 Comp Metabolic Cbc267 ALK PHOS 73 U/L 12/09/2016 Comp Metabolic Kai582 AST(SGOT) 24 U/L 12/09/2016 Comp Metabolic Vrj055 ALT(SGPT) 20 U/L 12/09/2016 Comp Metabolic Vhi492 BILI T 0.3 mg/dL 12/09/2016 Comp Metabolic Qgn465 ALBUMIN 4.3 g/dL 12/09/2016 Comp Metabolic Ezd772 TPRO 6.4 g/dL 12/09/2016 Comp Metabolic Hgh792 GLOB 2.1 g/dL 12/09/2016 Comp Metabolic Lpq481 A/G Ratio 2.0 Ratio 12/09/2016 Comp Metabolic Hbw125 Osmo 280 mOsmo 12/09/2016 Cbc With Differential [...] 20.5 % 12/09/2016 Cbc With Differential Ord2 MCH 31.3 pg 12/09/2016 Cbc With Differential Ord2 [place]% 6.5 % 12/09/2016 Cbc With Differential Ord2 MCHC 33.2 pg 12/09/2016 Cbc With Differential Ord2 Eos% 1.1 % 12/09/2016 Cbc With Differential Ord2 PLT 247 K/ul 12/09/2016 Cbc With Differential Ord2 Baso% 0.7 % 12/09/2016 Cbc With Differential Ord2 RDW 13.1 % 12/09/2016 Cbc With Differential Ord2 Neut ABS# 6.38 K/ul 12/09/2016 Cbc With Differential Ord2 Lymph ABS# 1.84 K/ul 12/09/2016 Cbc With Differential Ord2 [place] ABS# 0.6 K/ul 12/09/2016 Cbc With Differential Ord2 Eos ABS# 0.1 K/ul 12/09/2016 Cbc With Differential Ord2 Baso ABS# 0.1 K/ul 12/09/2016 Tsh Ord6 hTSH II 1.19 uIU/mL 09/02/2016 Free T4 Umz843 FREE T4 0.97 ng/dL 09/02/2016 Comp Metabolic Xap138 NA 137 mEq/L 06/01/2016 Comp Metabolic Ahl307 K 4.1 mEq/L 06/01/2016 Comp Metabolic Kiw125 CL 104 mEq/L 06/01/2016 Comp Metabolic Twb859 CO2 25.0 mEq/L 06/01/2016 Comp Metabolic Zjn842 ANION GAP 12 06/01/2016 Comp Metabolic Rnu224 GLUCOSE 108 mg/dL 06/01/2016 Comp Metabolic Egr322 Creat 0.8 mg/dL 06/01/2016 Comp Metabolic Lau732 eGFR 80 ml/min/1.73m2 06/01/2016 Comp Metabolic Und558 BUN 15 mg/dL 06/01/2016 Comp Metabolic Dis284 B/C Ratio 20.0 Ratio 06/01/2016 Comp Metabolic Rsl335 CALCIUM 9.1 mg/dL 06/01/2016 Comp Metabolic Eva452 ALK PHOS 89 U/L 06/01/2016 Comp Metabolic Zcc996 AST(SGOT) 25 U/L 06/01/2016 Comp Metabolic Noy954 ALT(SGPT) 20 U/L 06/01/2016 Comp Metabolic Qqa714 BILI T 0.3 mg/dL 06/01/2016 Comp Metabolic Upr018 ALBUMIN 4.2 g/dL 06/01/2016 Comp Metabolic Acr354 TPRO 6.2 g/dL 06/01/2016 Comp Metabolic Bil319 GLOB 2.0 g/dL 06/01/2016 Comp Metabolic Dva408 A/G Ratio 2.1 Ratio 06/01/2016 Comp Metabolic Qlv714 Osmo 275 mOsmo 06/01/2016 Free T4 Tah694 FREE T4 0.94 ng/dL 06/01/2016 Tsh Ord6 [...] 12.8 g/dl 06/01/2016 Cbc With Differential Ord2 HCT 39.7 % 06/01/2016 Cbc With Differential Ord2 Neut% 41.8 % 06/01/2016 Cbc With Differential Ord2 MCV 96.4 fl 06/01/2016 Cbc With Differential Ord2 Lymph% 44.5 % 06/01/2016 Cbc With Differential Ord2 MCH 31.1 pg 06/01/2016 Cbc With Differential Ord2 [place]% 8.4 % 06/01/2016 Cbc With Differential Ord2 Eos% 4.5 % 06/01/2016 Cbc With Differential Ord2 MCHC 32.2 pg 06/01/2016 Cbc With Differential Ord2 PLT 243 K/ul 06/01/2016 Cbc With Differential Ord2 Baso% 0.8 % 06/01/2016 Cbc With Differential Ord2 RDW 12.8 % 06/01/2016 Cbc With Differential Ord2 Neut ABS# 2.78 K/ul 06/01/2016 Cbc With Differential Ord2 Lymph ABS# 2.96 K/ul 06/01/2016 Cbc With Differential Ord2 [place] ABS# 0.6 K/ul 06/01/2016 Cbc With Differential [...] 31.3 pg 02/27/2016 Cbc With Differential Ord2 [place]% 10.0 % 02/27/2016 Cbc With Differential Ord2 [...] 2.28 K/ul 02/27/2016 Cbc With Differential Ord2 [place] ABS# 0.9 K/ul 02/27/2016 Cbc With Differential Ord2 Eos ABS# 0.3 K/ul 02/27/2016 Cbc With Differential Ord2 Baso ABS# 0.1 K/ul 02/27/2016 Tsh Ord6 hTSH II 0.18 uIU/mL 02/27/2016 Free T4 Wqt507 FREE T4 1.17 ng/dL 02/27/2016 Comp Metabolic Xhj475 NA 135 mEq/L 02/27/2016 Comp Metabolic Uxl799 K 5.2 mEq/L 02/27/2016 Comp Metabolic Ryu376 CL 102 mEq/L 02/27/2016 Comp Metabolic Tkk778 CO2 27.0 mEq/L 02/27/2016 Comp Metabolic Vgr220 ANION GAP 11 02/27/2016 Comp Metabolic Mbl147 GLUCOSE 93 mg/dL 02/27/2016 Comp Metabolic Jgp189 Creat 0.7 mg/dL 02/27/2016 Comp Metabolic Pmz735 eGFR 91 ml/min/1.73m2 02/27/2016 Comp Metabolic Nmu929 BUN 14 mg/dL 02/27/2016 Comp Metabolic Hzu895 B/C Ratio 20.9 Ratio 02/27/2016 Comp Metabolic Llm408 CALCIUM 9.4 mg/dL 02/27/2016 Comp Metabolic Gae477 ALK PHOS 100 U/L 02/27/2016 Comp Metabolic Opr613 AST(SGOT) 23 U/L 02/27/2016 Comp Metabolic Ueb776 ALT(SGPT) 24 U/L 02/27/2016 Comp Metabolic Ywy993 BILI T 0.2 mg/dL 02/27/2016 Comp Metabolic Pnq910 ALBUMIN 4.3 g/dL 02/27/2016 Comp Metabolic Gwo532 TPRO 6.3 g/dL 02/27/2016 Comp Metabolic Wck533 GLOB 2.1 g/dL 02/27/2016 Comp Metabolic Osw800 A/G Ratio 2.1 Ratio 02/27/2016 Comp Metabolic Kgs332 Osmo 270 mOsmo 02/27/2016 Free T4 Eny470 FREE T4 1.03 ng/dL 05/10/2015 Comp Metabolic Ppd794 NA 137 mEq/L 05/10/2015 Comp Metabolic Kdz920 K 4.4 mEq/L 05/10/2015 Comp Metabolic Oqv396 CL 102 mEq/L 05/10/2015 Comp Metabolic Prc211 CO2 28.0 mEq/L 05/10/2015 Comp Metabolic Xnx553 ANION GAP 11 05/10/2015 Comp Metabolic Hyh469 GLUCOSE 108 mg/dL 05/10/2015 Comp Metabolic Who645 Creat 0.7 mg/dL 05/10/2015 Comp Metabolic Tji119 eGFR 86 ml/min/1.73m2 05/10/2015 Comp Metabolic Efy321 BUN 13 mg/dL 05/10/2015 Comp Metabolic Nag495 B/C Ratio 18.3 Ratio 05/10/2015 Comp Metabolic Iny981 CALCIUM 9.4 mg/dL 05/10/2015 Comp Metabolic Rwf533 ALK PHOS 94 U/L 05/10/2015 Comp Metabolic Iue974 AST(SGOT) 22 U/L 05/10/2015 Comp Metabolic Uds210 ALT(SGPT) 21 U/L 05/10/2015 Comp Metabolic Ket729 BILI T 0.3 mg/dL 05/10/2015 Comp Metabolic Pid616 ALBUMIN 3.9 g/dL 05/10/2015 Comp Metabolic Cjz997 TPRO 6.1 g/dL 05/10/2015 Comp Metabolic Ihx295 GLOB 2.2 g/dL 05/10/2015 Comp Metabolic Wvj459 A/G Ratio 1.7 Ratio 05/10/2015 Comp Metabolic Cxo979 Osmo 274 mOsmo 05/10/2015 Tsh Ord6 hTSH II 0.59 uIU/mL 05/10/2015 Cbc With Differential Ord2 WBC 5.77 K/ul 05/10/2015 Cbc With Differential Ord2 RBC 4.25 M/ul 05/10/2015 Cbc With Differential Ord2 HGB 12.5 g/dl 05/10/2015 Cbc With Differential Ord2 HCT 39.3 % 05/10/2015 Cbc With Differential Ord2 Neut% 48.3 % 05/10/2015 Cbc With Differential Ord2 MCV 92.5 fl 05/10/2015 Cbc With Differential Ord2 Lymph% 37.1 % 05/10/2015 Cbc With Differential Ord2 MCH 29.4 pg 05/10/2015 Cbc With Differential Ord2 [place]% 9.0 % 05/10/2015 Cbc With Differential Ord2 Eos% 4.7 % 05/10/2015 Cbc With Differential Ord2 MCHC 31.8 pg 05/10/2015 Cbc With Differential Ord2 PLT 228 K/ul 05/10/2015 Cbc With Differential Ord2 Baso% 0.9 % 05/10/2015 Cbc With Differential Ord2 RDW 13.3 % 05/10/2015 Cbc With Differential Ord2 Neut ABS# 2.79 K/ul 05/10/2015 Cbc With Differential Ord2 Lymph ABS# 2.14 K/ul 05/10/2015 Cbc With Differential Ord2 [place] ABS# 0.5 K/ul 05/10/2015 Cbc With Differential [...] Ord30 C/HDL 3.8 Ratio 05/10/2015 Culture Urine [id number] URINE CULTURE SEE NOTES 02/25/2015 Culture Urine [id number] Continued Results 02/25/2015 Urine Culture Ucult Complete >100,000 col/ml aerobic growth sent to ref lab 02/22/2015 Free T4 Twt065 FREE T4 1.16 ng/dL 02/11/2015 Tsh Ord6 hTSH II 0.51 uIU/mL 02/11/2015 Review of Systems System Result Effective Dates Constitutional No recent illness 2018 Constitutional No chills 05/10/2018 Constitutional No diaphoresis 05/10/2018 Constitutional fatigue 05/10/2018 Constitutional No fever 05/10/2018 Constitutional No insomnia 05/10/2018 Constitutional malaise 05/10/2018 Eyes No eye erythema 05/10/2018 Ears/Nose/Throat/Neck nasal allergies Cardiovascular No chest pain/pressure Respiratory No cough 05/10/2018 Respiratory No dyspnea 05/10/2018 Gastrointestinal No abdominal pain 2018 Gastrointestinal No constipation 2018 Gastrointestinal No diarrhea 05/10/2018 Musculoskeletal back pain 05/10/2018 Neurologic No alteration of consciousness 05/10/2018 Neurologic No mental status change 2018 Ears/Nose/Throat/Neck No nasal discharge 05/10/2018 Constitutional No recent illness 2018 Constitutional No chills 04/21/2018 Constitutional No diaphoresis 04/21/2018 Constitutional No fever 04/21/2018 Constitutional fatigue 04/21/2018 Constitutional malaise 04/21/2018 Constitutional No insomnia 04/21/2018 Eyes No eye erythema 04/21/2018 Ears/Nose/Throat/Neck nasal allergies 06/2018 Ears/Nose/Throat/Neck nasal discharge 06/2018 Ears/Nose/Throat/Neck postnasal drip 06/2018 Ears/Nose/Throat/Neck otalgia 04/21/2018 Ears/Nose/Throat/Neck sore throat 2018 Cardiovascular No chest pain/pressure 06/2018 Respiratory No cough 04/21/2018 Respiratory No dyspnea 04/21/2018 Gastrointestinal No abdominal pain 2018 Gastrointestinal No constipation 2018 Gastrointestinal No diarrhea 04/21/2018 Musculoskeletal back pain 04/21/2018 Neurologic No alteration of consciousness 04/21/2018 Neurologic No mental status change 2018 Constitutional No recent illness 2017 Constitutional No chills 04/13/2018 Constitutional No diaphoresis 04/13/2018 Constitutional fatigue 04/13/2018 Constitutional No fever 04/13/2018 Constitutional malaise 04/13/2018 Eyes No eye erythema 04/13/2018 Ears/Nose/Throat/Neck dizziness 2017 Ears/Nose/Throat/Neck nasal allergies Ears/Nose/Throat/Neck No nasal discharge 04/13/2018 Ears/Nose/Throat/Neck sore throat 2017 Ears/Nose/Throat/Neck No sinus congestion 04/13/2018 Cardiovascular No chest pain/pressure Cardiovascular No dyspnea 04/13/2018 Respiratory No chest congestion 2017 Respiratory No cough 04/13/2018 Gastrointestinal No abdominal pain 2017 Gastrointestinal No constipation 2017 Gastrointestinal No diarrhea 04/13/2018 Musculoskeletal joint complaint 2017 Musculoskeletal myalgias 04/13/2018 Dermatologic No rash 04/13/2018 Neurologic No alteration of consciousness 04/13/2018 Neurologic No aphasia 04/13/2018 Neurologic dizziness 04/13/2018 Neurologic No dyskinesia or tremor 2017 Neurologic No gait abnormality 2017 Neurologic headache 04/13/2018 Neurologic No mental status change 2017 Ears/Nose/Throat/Neck otalgia 04/13/2018 Constitutional No recent illness 2017 Constitutional No chills 04/04/2018 Constitutional No diaphoresis 04/04/2018 Constitutional fatigue 04/04/2018 Constitutional No fever 04/04/2018 Constitutional malaise 04/04/2018 Eyes No blindness 04/04/2018 Ears/Nose/Throat/Neck dizziness 2017 Ears/Nose/Throat/Neck nasal allergies Ears/Nose/Throat/Neck No nasal discharge 04/04/2018 Ears/Nose/Throat/Neck No sinus congestion 04/04/2018 Ears/Nose/Throat/Neck No sore throat Cardiovascular No chest pain/pressure Cardiovascular No dyspnea 04/04/2018 Respiratory No chest congestion 2017 Respiratory No cough 04/04/2018 Gastrointestinal No abdominal pain 2017 Gastrointestinal No constipation 2017 Gastrointestinal No diarrhea 04/04/2018 Musculoskeletal joint complaint 2017 Musculoskeletal myalgias 04/04/2018 Dermatologic No rash 04/04/2018 Neurologic No alteration of consciousness 04/04/2018 Neurologic No aphasia 04/04/2018 Neurologic dizziness 04/04/2018 Neurologic No dyskinesia or tremor 2017 Neurologic No gait abnormality 2017 Neurologic headache 04/04/2018 Neurologic No mental status change 2017 Psychiatric No anxiety 04/04/2018 Eyes No eye discharge 04/01/2018 Eyes No eye erythema 04/01/2018 Ears/Nose/Throat/Neck dizziness 2017 Ears/Nose/Throat/Neck headache 2017 Ears/Nose/Throat/Neck nasal discharge Ears/Nose/Throat/Neck otalgia 04/01/2018 Ears/Nose/Throat/Neck sinus congestion Cardiovascular No chest pain/pressure Cardiovascular No dyspnea 04/01/2018 Cardiovascular No edema 04/01/2018 Respiratory No cough 04/01/2018 Gastrointestinal No abdominal pain 2017 Gastrointestinal No constipation 2017 Gastrointestinal No diarrhea 04/01/2018 Gastrointestinal nausea 04/01/2018 Gastrointestinal No vomiting 04/01/2018 Genitourinary/Nephrology dysuria 2017 Musculoskeletal No joint complaint 2017 Dermatologic No rash 04/01/2018 Neurologic No alteration of consciousness 04/01/2018 Neurologic dizziness 04/01/2018 Constitutional No recent illness 2017 Constitutional No fever 04/01/2018 Constitutional No chills 04/01/2018 Constitutional No diaphoresis 04/01/2018 Eyes No eye erythema 04/01/2018 Genitourinary/Nephrology urinary frequency 04/01/2018 Genitourinary/Nephrology urinary urgency 04/01/2018 Constitutional No insomnia 03/24/2018 Constitutional malaise 03/24/2018 Constitutional fatigue 03/24/2018 Constitutional No fever 03/24/2018 Constitutional No diaphoresis 03/24/2018 Constitutional No chills 03/24/2018 Constitutional No night sweats 2017 Constitutional No recent illness 2017 Constitutional No anorexia 03/24/2018 Eyes No eye discharge 03/24/2018 Eyes No eye erythema 03/24/2018 Ears/Nose/Throat/Neck dizziness 2017 Ears/Nose/Throat/Neck No headache 2017 Ears/Nose/Throat/Neck nasal discharge 09/2017 Ears/Nose/Throat/Neck otalgia 03/24/2018 Ears/Nose/Throat/Neck sinus congestion Cardiovascular No chest pain/pressure 09/2017 Cardiovascular No dyspnea 03/24/2018 Cardiovascular No edema 03/24/2018 Respiratory No cough 03/24/2018 Gastrointestinal No abdominal pain 2017 Gastrointestinal No constipation 2017 Gastrointestinal No diarrhea 03/24/2018 Gastrointestinal nausea 03/24/2018 Gastrointestinal No vomiting 03/24/2018 Genitourinary/Nephrology No dysuria 03/24 Musculoskeletal No joint complaint 2017 Dermatologic No rash 03/24/2018 Neurologic No alteration of consciousness 03/24/2018 Neurologic dizziness 03/24/2018 Constitutional recent illness 03/01/2018 Constitutional No chills 03/01/2018 Constitutional No diaphoresis 03/01/2018 Constitutional No fever 03/01/2018 Eyes No blindness 03/01/2018 Ears/Nose/Throat/Neck nasal allergies Ears/Nose/Throat/Neck nasal discharge Ears/Nose/Throat/Neck otalgia 03/01/2018 Ears/Nose/Throat/Neck No postnasal drip 03/01/2018 Ears/Nose/Throat/Neck No sinus congestion 03/01/2018 Ears/Nose/Throat/Neck No sore throat Cardiovascular No chest pain/pressure Respiratory No chest congestion 2017 Respiratory No cough 03/01/2018 Gastrointestinal No abdominal pain 2017 Dermatologic No rash 03/01/2018 Neurologic No alteration of consciousness 03/01/2018 Neurologic No mental status change 2017 Neurologic headache 03/01/2018 Constitutional No recent illness 2017 Constitutional No chills 12/24/2017 Constitutional No diaphoresis 12/24/2017 Constitutional No fever 12/24/2017 Eyes No eye erythema 12/24/2017 Ears/Nose/Throat/Neck nasal discharge 10/2017 Cardiovascular No chest pain/pressure 10/2017 Cardiovascular No dyspnea 12/24/2017 Respiratory No cough 12/24/2017 Respiratory No dyspnea 12/24/2017 Neurologic No alteration of consciousness 12/24/2017 Neurologic No mental status change 2017 Ears/Nose/Throat/Neck nasal allergies 10/2017 Ears/Nose/Throat/Neck dizziness 2017 Constitutional recent illness 11/18/2017 Constitutional No chills [...] 1994 Constitutional general appearance Overall: well developed 05/10/2018 None Full Exam - General 1994 Constitutional general appearance Overall: in no acute distress 05/10/2018 None Full Exam - General 1994 Constitutional general appearance Overall: well nourished 05/10/2018 None Full Exam - General 1994 Eyes conjunctiva /eyelids Overall: conjunctiva clear 05/10/2018 None Full Exam - General 1994 Eyes conjunctiva /eyelids Overall: cornea clear 05/10/2018 None Full Exam - General 1994 Eyes conjunctiva /eyelids Overall: eyelids normal 05/10/2018 None Full Exam - General 1994 Ears/Nose/Throat otoscopic exam Overall: external auditory canals clear 05/10/2018 None Full Exam - General 1994 Ears/Nose/Throat lips/teeth/gingiva Overall: benign lips 05/10/2018 None Full Exam - General 1994 Ears/Nose/Throat oral cavity/pharynx/larynx Overall: oral mucosa clear 05/10/2018 None Full Exam - General 1994 Ears/Nose/Throat oral cavity/pharynx/larynx Posterior Pharynx: clear post nasal drainage 05/10/2018 None Full Exam - General 1994 Respiratory auscultation Overall: breath sounds clear bilaterally 05/10/2018 None Full Exam - General 1994 Respiratory respiratory effort/rhythm Overall: no retractions 05/10/2018 None Full Exam - General 1994 Respiratory respiratory effort/rhythm Overall: normal rate 05/10/2018 None Full Exam - General 1994 Cardiovascular auscultation of heart Overall: regular rate 05/10/2018 None Full Exam - General 1994 Cardiovascular auscultation of heart Overall: normal heart sounds 05/10/2018 None Full Exam - General 1994 Musculoskeletal spine, ribs and pelvis Spine: tender @ lumbar spine 05/10/2018 None Full Exam - General 1994 Musculoskeletal spine, ribs and pelvis Sacroiliac joints: tender right sacroiliac joint 05/10/2018 None Full Exam - General 1994 Musculoskeletal spine, ribs and pelvis Sacroiliac joints: tender left sacroiliac joint 05/10/2018 None Full Exam - General 1994 Musculoskeletal gait and station Overall: normal gait 05/10/2018 None Full Exam - General 1994 Musculoskeletal gait and station Overall: normal station 05/10/2018 None Full Exam - General 1994 Musculoskeletal head and neck Overall: head atraumatic 05/10/2018 None Full Exam - General 1994 Neurologic cranial nerves Overall: crainial nerves 2 - 12 grossly intact 05/10/2018 None Full Exam - General 1994 Psychiatric orientation/consciousness Overall: oriented to person, place and time 05/10/2018 None Full Exam - General 1994 Psychiatric mood and affect Overall: normal mood and affect 05/10/2018 None Full Exam - General 1994 Ears/Nose/Throat otoscopic exam Overall: tympanic membranes clear 05/10/2018 None Full Exam - General 1994 Constitutional general appearance Overall: well developed 04/21/2018 None Full Exam - General 1994 Constitutional general appearance Overall: in no acute distress 04/21/2018 None Full Exam - General 1994 Constitutional general appearance Overall: well nourished 04/21/2018 None Full Exam - General 1994 Eyes conjunctiva /eyelids Overall: eyelids normal 04/21/2018 None Full Exam - General 1994 Eyes conjunctiva /eyelids Overall: cornea clear 04/21/2018 None Full Exam - General 1994 Eyes conjunctiva /eyelids Overall: conjunctiva clear 04/21/2018 None Full Exam - General 1994 Ears/Nose/Throat otoscopic exam Overall: external auditory canals clear 04/21/2018 None Full Exam - General 1995 Ears/Nose/Throat lips/teeth/gingiva Overall: benign lips 04/21/2018 None Full Exam - General 1995 Ears/Nose/Throat oral cavity/pharynx/larynx Overall: oral mucosa clear 04/21/2018 None Full Exam - General 1994 Ears/Nose/Throat otoscopic exam Tympanic membrane: air- fluid level 04/21/2018 None Full Exam - General 1995 Ears/Nose/Throat oral cavity/pharynx/larynx Posterior Pharynx: clear post nasal drainage 04/21/2018 None Full Exam - General 1994 Respiratory auscultation Overall: breath sounds clear bilaterally 04/21/2018 None Full Exam - General 1994 Respiratory respiratory effort/rhythm Overall: normal rate 04/21/2018 None Full Exam - General 1994 Respiratory respiratory effort/rhythm Overall: no retractions 04/21/2018 None Full Exam - General 1994 Cardiovascular auscultation of heart Overall: regular rate 04/21/2018 None Full Exam - General 1994 Cardiovascular auscultation of heart Overall: normal heart sounds 04/21/2018 None Full Exam - General 1994 Musculoskeletal head and neck Overall: head atraumatic 04/21/2018 None Full Exam - General 1994 Musculoskeletal gait and station Overall: normal station 04/21/2018 None Full Exam - General 1994 Musculoskeletal gait and station Overall: normal gait 04/21/2018 None Full Exam - General 1994 Neurologic cranial nerves Overall: crainial nerves 2 - 12 grossly intact 04/21/2018 None Full Exam - General 1994 Psychiatric orientation/consciousness Overall: oriented to person, place and time 04/21/2018 None Full Exam - General 1994 Psychiatric mood and affect Overall: normal mood and affect 04/21/2018 None Full Exam - General 1994 Musculoskeletal spine, ribs and pelvis Sacroiliac joints: tender left sacroiliac joint 04/21/2018 None Full Exam - General 1994 Musculoskeletal spine, ribs and pelvis Sacroiliac joints: tender right sacroiliac joint 04/21/2018 None Full Exam - General 1994 Musculoskeletal spine, ribs and pelvis Spine: tender @ lumbar spine 04/21/2018 None Full Exam - General 1994 Constitutional general appearance Overall: well developed 04/13/2018 None Full Exam - General 1994 Constitutional general appearance Overall: in no acute distress 04/13/2018 None Full Exam - General 1994 Constitutional general appearance Overall: well nourished 04/13/2018 None Full Exam - General 1994 Eyes conjunctiva /eyelids Overall: conjunctiva clear 04/13/2018 None Full Exam - General 1994 Eyes conjunctiva /eyelids Overall: cornea clear 04/13/2018 None Full Exam - General 1994 Eyes conjunctiva /eyelids Overall: eyelids normal 04/13/2018 None Full Exam - General 1994 Eyes pupils and irises Overall: pupils equal, round, reactive to light and accomodation 04/13/2018 None Full Exam - General 1994 Ears/Nose/Throat otoscopic exam Overall: external auditory canals clear 04/13/2018 None Full Exam - General 1994 Ears/Nose/Throat otoscopic exam Overall: tympanic membranes clear 04/13/2018 None Full Exam - General 1994 Ears/Nose/Throat lips/teeth/gingiva Overall: benign lips 04/13/2018 None Full Exam - General 1994 Ears/Nose/Throat oral cavity/pharynx/larynx Overall: oral mucosa clear 04/13/2018 None Full Exam - General 1994 Ears/Nose/Throat oral cavity/pharynx/larynx Overall: oropharyngeal mucosa clear 04/13/2018 None Full Exam - General 1994 Respiratory auscultation Overall: breath sounds clear bilaterally 04/13/2018 None Full Exam - General 1994 Respiratory auscultation Diffuse: diminished 04/13/2018 None Full Exam - General 1994 Respiratory respiratory effort/rhythm Overall: no retractions 04/13/2018 None Full Exam - General 1994 Respiratory respiratory effort/rhythm Overall: normal rate 04/13/2018 None Full Exam - General 1994 Cardiovascular extremities Overall: no clubbing 04/13/2018 None Full Exam - General 1994 Cardiovascular auscultation of heart Overall: regular rate 04/13/2018 None Full Exam - General 1994 Cardiovascular auscultation of heart Overall: normal heart sounds 04/13/2018 None Full Exam - General 1994 Musculoskeletal gait and station Overall: normal gait 04/13/2018 None Full Exam - General 1994 Musculoskeletal head and neck Overall: head atraumatic 04/13/2018 None Full Exam - General 1994 Neurologic cranial nerves Overall: crainial nerves 2 - 12 grossly intact 04/13/2018 None Full Exam - General 1994 Psychiatric orientation/consciousness Overall: oriented to person, place and time 04/13/2018 None Full Exam - General 1994 Psychiatric mood and affect Overall: normal mood and affect 04/13/2018 None Full Exam - General 1994 Psychiatric appearance Overall: well-groomed, good eye contact 04/13/2018 None Full Exam - General 1994 Constitutional general appearance Overall: well developed 04/04/2018 None Full Exam - General 1994 Constitutional general appearance Overall: in no acute distress 04/04/2018 None Full Exam - General 1994 Constitutional general appearance Overall: well nourished 04/04/2018 None Full Exam - General 1994 Eyes conjunctiva /eyelids Overall: conjunctiva clear 04/04/2018 None Full Exam - General 1994 Eyes conjunctiva /eyelids Overall: cornea clear 04/04/2018 None Full Exam - General 1994 Eyes conjunctiva /eyelids Overall: eyelids normal 04/04/2018 None Full Exam - General 1994 Eyes pupils and irises Overall: pupils equal, round, reactive to light and accomodation 04/04/2018 None Full Exam - General 1994 Ears/Nose/Throat otoscopic exam Overall: external auditory canals clear 04/04/2018 None Full Exam - General 1994 Ears/Nose/Throat otoscopic exam Overall: tympanic membranes clear 04/04/2018 None Full Exam - General 1994 Ears/Nose/Throat lips/teeth/gingiva Overall: benign lips 04/04/2018 None Full Exam - General 1994 Ears/Nose/Throat oral cavity/pharynx/larynx Overall: oral mucosa clear 04/04/2018 None Full Exam - General 1994 Ears/Nose/Throat oral cavity/pharynx/larynx Overall: oropharyngeal mucosa clear 04/04/2018 None Full Exam - General 1994 Respiratory auscultation Overall: breath sounds clear bilaterally 04/04/2018 None Full Exam - General 1994 Respiratory auscultation Diffuse: diminished 04/04/2018 None Full Exam - General 1994 Respiratory respiratory effort/rhythm Overall: no retractions 04/04/2018 None Full Exam - General 1994 Respiratory respiratory effort/rhythm Overall: normal rate 04/04/2018 None Full Exam - General 1994 Cardiovascular extremities Overall: no clubbing 04/04/2018 None Full Exam - General 1994 Cardiovascular auscultation of heart Overall: regular rate 04/04/2018 None Full Exam - General 1994 Cardiovascular auscultation of heart Overall: normal heart sounds 04/04/2018 None Full Exam - General 1994 Musculoskeletal head and neck Overall: head atraumatic 04/04/2018 None Full Exam - General 1994 Neurologic cranial nerves Overall: crainial nerves 2 - 12 grossly intact 04/04/2018 None Full Exam - General 1994 Psychiatric orientation/consciousness Overall: oriented to person, place and time 04/04/2018 None Full Exam - General 1994 Psychiatric mood and affect Overall: normal mood and affect 04/04/2018 None Full Exam - General 1994 Psychiatric appearance Overall: well-groomed, good eye contact 04/04/2018 None Full Exam - General 1994 Musculoskeletal gait and station Overall: normal gait 04/04/2018 None Full Exam - General 1994 Constitutional general appearance Overall: well developed 04/01/2018 None Full Exam - General 1994 Constitutional general appearance Overall: in no acute distress 04/01/2018 None Full Exam - General 1994 Constitutional general appearance Overall: well nourished 04/01/2018 None Full Exam - General 1994 Eyes conjunctiva /eyelids Overall: conjunctiva clear 04/01/2018 None Full Exam - General 1994 Eyes conjunctiva /eyelids Overall: cornea clear 04/01/2018 None Full Exam - General 1994 Eyes conjunctiva /eyelids Overall: eyelids normal 04/01/2018 None Full Exam - General 1994 Ears/Nose/Throat otoscopic exam Overall: external auditory canals clear 04/01/2018 None Full Exam - General 1994 Ears/Nose/Throat otoscopic exam Overall: tympanic membranes clear 04/01/2018 right TM erythema Full Exam - General 1994 Ears/Nose/Throat lips/teeth/gingiva Overall: benign lips 04/01/2018 None Full Exam - General 1994 Ears/Nose/Throat oral cavity/pharynx/larynx Overall: oral mucosa clear 04/01/2018 None Full Exam - General 1994 Respiratory auscultation Overall: breath sounds clear bilaterally 04/01/2018 None Full Exam - General 1994 Respiratory respiratory effort/rhythm Overall: no retractions 04/01/2018 None Full Exam - General 1994 Respiratory respiratory effort/rhythm Overall: normal rate 04/01/2018 None Full Exam - General 1994 Cardiovascular inspection of carotid pulses Overall: strong, bilaterally equal, no bruits 04/01/2018 None Full Exam - General 1994 Cardiovascular extremities Overall: no clubbing 04/01/2018 None Full Exam - General 1994 Cardiovascular auscultation of heart Overall: regular rate 04/01/2018 None Full Exam - General 1994 Cardiovascular auscultation of heart Overall: normal heart sounds 04/01/2018 None Full Exam - General 1994 Lymphatic neck nodes Overall: anterior cervical chain benign 04/01/2018 None Full Exam - General 1994 Lymphatic neck nodes Overall: posterior cervical chain benign 04/01/2018 None Full Exam - General 1994 Musculoskeletal gait and station Overall: normal gait 04/01/2018 None Full Exam - General 1994 Musculoskeletal gait and station Overall: normal station 04/01/2018 None Full Exam - General 1994 Musculoskeletal head and neck Overall: head atraumatic 04/01/2018 None Full Exam - General 1994 Neurologic cranial nerves Overall: crainial nerves 2 - 12 grossly intact 04/01/2018 None Full Exam - General 1994 Psychiatric orientation/consciousness Overall: oriented to person, place and time 04/01/2018 None Full Exam - General 1994 Psychiatric mood and affect Overall: normal mood and affect 04/01/2018 None Full Exam - General 1994 Psychiatric appearance Overall: well-groomed, good eye contact 04/01/2018 None Full Exam - General 1994 Ears/Nose/Throat oral cavity/pharynx/larynx Oropharynx: thrush 04/01/2018 None Full Exam - General 1994 Constitutional general appearance Overall: well developed 03/24/2018 None Full Exam - General 1994 Constitutional general appearance Overall: in no acute distress 03/24/2018 None Full Exam - General 1994 Constitutional general appearance Overall: well nourished 03/24/2018 None Full Exam - General 1994 Eyes conjunctiva /eyelids Overall: conjunctiva clear 03/24/2018 None Full Exam - General 1994 Eyes conjunctiva /eyelids Overall: eyelids normal 03/24/2018 None Full Exam - General 1994 Ears/Nose/Throat otoscopic exam Overall: tympanic membranes clear 03/24/2018 right TM erythema Full Exam - General 1994 Ears/Nose/Throat lips/teeth/gingiva Overall: benign lips 03/24/2018 None Full Exam - General 1994 Ears/Nose/Throat oral cavity/pharynx/larynx Overall: oral mucosa clear 03/24/2018 None Full Exam - General 1994 Respiratory respiratory effort/rhythm Overall: no retractions 03/24/2018 None Full Exam - General 1994 Respiratory respiratory effort/rhythm Overall: normal rate 03/24/2018 None Full Exam - General 1994 Musculoskeletal head and neck Overall: head atraumatic 03/24/2018 None Full Exam - General 1994 Neurologic cranial nerves Overall: crainial nerves 2 - 12 grossly intact 03/24/2018 None Full Exam - General 1994 Psychiatric orientation/consciousness Overall: oriented to person, place and time 03/24/2018 None Full Exam - General 1994 Psychiatric mood and affect Overall: normal mood and affect 03/24/2018 None Full Exam - General 1994 Psychiatric appearance Overall: well-groomed, good eye contact 03/24/2018 None Full Exam - General 1994 Eyes conjunctiva /eyelids Overall: cornea clear 03/24/2018 None Full Exam - General 1994 Ears/Nose/Throat otoscopic exam Overall: external auditory canals clear 03/24/2018 None Full Exam - General 1994 Ears/Nose/Throat oral cavity/pharynx/larynx Overall: oropharyngeal mucosa clear 03/24/2018 None Full Exam - General 1994 Respiratory auscultation Overall: breath sounds clear bilaterally 03/24/2018 None Full Exam - General 1994 Cardiovascular inspection of carotid pulses Overall: strong, bilaterally equal, no bruits 03/24/2018 None Full Exam - General 1994 Cardiovascular extremities Overall: no clubbing 03/24/2018 None Full Exam - General 1994 Cardiovascular auscultation of heart Overall: regular rate 03/24/2018 None Full Exam - General 1994 Cardiovascular auscultation of heart Overall: normal heart sounds 03/24/2018 None Full Exam - General 1994 Lymphatic neck nodes Overall: posterior cervical chain benign 03/24/2018 None Full Exam - General 1994 Musculoskeletal gait and station Overall: normal gait 03/24/2018 None Full Exam - General 1994 Musculoskeletal gait and station Overall: normal station 03/24/2018 None Full Exam - General 1994 Integument inspection of skin Overall: no rash, lesions 03/24/2018 None Full Exam - General 1994 Lymphatic neck nodes Overall: anterior cervical chain benign 03/24/2018 None Full Exam - ENT Constitutional general appearance Overall: well nourished 03/01/2018 None Full Exam - ENT Constitutional general appearance Overall: well developed 03/01/2018 None Full Exam - ENT Constitutional general appearance Overall: in no acute distress 03/01/2018 None Full Exam - ENT Ears/Nose/Throat otoscopic exam Overall: external auditory canals normal 03/01/2018 None Full Exam - ENT Ears/Nose/Throat otoscopic exam Left tympanic membrane: air -fluid level 03/01/2018 None Full Exam - ENT Ears/Nose/Throat otoscopic exam Right tympanic membrane: air-fluid level 03/01/2018 None Full Exam - ENT Ears/Nose/Throat external ear and nose Overall: normal appearance 03/01/2018 None Full Exam - ENT Ears/Nose/Throat external ear and nose Overall: no masses 03/01/2018 None Full Exam - ENT Ears/Nose/Throat external ear and nose Overall: normal mastoids 03/01/2018 None Full Exam - ENT Ears/Nose/Throat lips/ teeth/gingiva Overall: benign lips 03/01/2018 None Full Exam - ENT Ears/Nose/Throat oropharynx Overall: oral mucosa clear 03/01/2018 None Full Exam - ENT Ears/Nose/Throat oropharynx Posterior Pharynx: clear post nasal drainage 03/01/2018 None Full Exam - ENT Respiratory inspection Overall: no retractions 03/01/2018 None Full Exam - ENT Respiratory inspection Overall: normal rate None Full Exam - ENT Respiratory auscultation Overall: breath sounds clear bilaterally 03/01/2018 None Full Exam - ENT Cardiovascular auscultation of heart Overall: regular rate 03/01/2018 None Full Exam - ENT Cardiovascular auscultation of heart Overall: normal heart sounds 03/01/2018 None Full Exam - ENT Lymphatic palpation of lymph nodes Overall: anterior cervical chain benign 03/01/2018 None Full Exam - ENT Lymphatic palpation of lymph nodes Overall: posterior cervical chain benign 03/01/2018 None Full Exam - ENT Musculoskeletal head and neck Overall: head atraumatic 03/01/2018 None Full Exam - ENT Musculoskeletal gait and station Overall: normal gait 03/01/2018 None Full Exam - ENT Musculoskeletal gait and station Overall: normal station 03/01/2018 None Full Exam - ENT Neurologic mood and affect Overall: normal mood 03/01/2018 None Full Exam - ENT Neurologic mood and affect Overall: normal affect 03/01/2018 None Full Exam - ENT Neurologic orientation Overall: oriented to person, place and time 03/01/2018 None Full Exam - General 1994 Constitutional general appearance Overall: well developed 12/24/2017 None Full Exam - General 1994 Constitutional general appearance Overall: in no acute distress 12/24/2017 None Full Exam - General 1994 Constitutional general appearance Overall: well nourished 12/24/2017 None Full Exam - General 1994 Eyes conjunctiva /eyelids Overall: conjunctiva clear 12/24/2017 None Full Exam - General 1994 Eyes conjunctiva /eyelids Overall: eyelids normal 12/24/2017 None Full Exam - General 1995 Ears/Nose/Throat lips/teeth/gingiva Overall: benign lips 12/24/2017 None Full Exam - General 1994 Respiratory respiratory effort/rhythm Overall: no retractions 12/24/2017 None Full Exam - General 1994 Respiratory respiratory effort/rhythm Overall: normal rate 12/24/2017 None Full Exam - General 1994 Musculoskeletal head and neck Overall: head atraumatic 12/24/2017 None Full Exam - General 1994 Neurologic cranial nerves Overall: crainial nerves 2 - 12 grossly intact 12/24/2017 None Full Exam - General 1994 Psychiatric orientation/consciousness Overall: oriented to person, place and time 12/24/2017 None Full Exam - General 1994 Psychiatric mood and affect Overall: normal mood and affect 12/24/2017 None Full Exam - General 1994 Psychiatric appearance Overall: well-groomed, good eye contact 12/24/2017 None Full Exam - General 1994 Ears/Nose/Throat otoscopic exam Overall: tympanic membranes clear 12/24/2017 None Full Exam - General 1994 Ears/Nose/Throat otoscopic exam Overall: external auditory canals clear 12/24/2017 None Full Exam - General 1994 Ears/Nose/Throat oral cavity/pharynx/larynx Overall: oral mucosa clear 12/24/2017 None Full Exam - General 1994 Ears/Nose/Throat oral cavity/pharynx/larynx Posterior Pharynx: clear post nasal drainage 12/24/2017 None Full Exam - General 1994 Constitutional [...] clear 09/22/2017 None Full Exam - General 1995 Ears/Nose/Throat [...] Procedure Codes Date THER/PROPH/DIAG INJ SC/IM CPT-4: 15594 04/08/2018 ROCEPHIN, PER 250 MG CPT-4: J0696 04/08/2018 THER/PROPH/DIAG INJ SC/IM CPT-4: 74454 04/07/2018 ROCEPHIN, PER 250 MG CPT-4: J0696 04/07/2018 THER/PROPH/DIAG INJ SC/IM CPT-4: 81178 04/06/2018 ROCEPHIN, PER 250 MG CPT-4: J0696 04/06/2018 THER/PROPH/DIAG INJ SC/IM CPT-4: 99759 04/05/2018 ROCEPHIN, PER 250 MG CPT-4: J0696 04/05/2018 KETOROLAC TROMETHAMINE INJ CPT-4: J1885 04/05/2018 THER/PROPH/DIAG INJ SC/IM CPT-4: 09129 04/04/2018 ROCEPHIN, PER 250 MG CPT-4: J0696 04/04/2018 KETOROLAC TROMETHAMINE INJ CPT-4: J1885 04/04/2018 URINALYSIS NONAUTO W/O SCOPE CPT-4: 37641 03/24/2018 PPPS, SUBSEQ VISIT CPT -4: G0439 12/24/2017 THER/PROPH/DIAG INJ SC/IM CPT-4: 82375 12/24/2017 TRIAMCINOLONE ACET INJ NOS CPT-4: J3301 12/24/2017 THER/PROPH/DIAG INJ SC/IM CPT-4: 71207 11/18/2017 ROCEPHIN, PER 250 MG CPT-4: J0696 11/18/2017 PRESCRIP TRANSMIT VIA ERX SY CPT-4: G8553 04/01/2017 TRIAMCINOLONE ACET INJ NOS CPT-4: J3301 03/25/2017 PPPS, SUBSEQ VISIT CPT -4: G0439 12/23/2016 THER/PROPH/DIAG INJ SC/IM CPT-4: 38925 12/08/2016 TRIAMCINOLONE ACET INJ NOS CPT-4: J3301 12/08/2016 PRESCRIP TRANSMIT VIA ERX SY CPT-4: G8553 12/08/2016 PRESCRIP TRANSMIT VIA ERX SY CPT-4: G8553 11/30/2016 URINALYSIS NONAUTO W/O SCOPE CPT-4: 55222 07/08/2016 PRESCRIP TRANSMIT VIA ERX SY CPT-4: G8553 06/01/2016 PRESCRIP TRANSMIT VIA ERX SY CPT-4: G8553 02/27/2016 THER/PROPH/DIAG INJ SC/IM CPT-4: 50588 03/01/2015 ROCEPHIN, PER 250 MG CPT-4: J0696 03/01/2015 THER/PROPH/DIAG INJ SC/IM CPT-4: 34720 02/28/2015 ROCEPHIN, PER 250 MG CPT-4: J0696 02/28/2015 THER/PROPH/DIAG INJ SC/IM CPT-4: 67089 02/27/2015 ROCEPHIN, PER 250 MG CPT-4: J0696 02/27/2015 THER/PROPH/DIAG INJ SC/IM CPT-4: 48966 02/26/2015 ROCEPHIN, PER 250 MG CPT-4: J0696 02/26/2015 THER/PROPH/DIAG INJ SC/IM CPT-4: 68107 02/25/2015 ROCEPHIN, PER 250 MG CPT-4: J0696 02/25/2015 URINALYSIS NONAUTO W/O SCOPE CPT-4: 44037 02/21/2015 Vital Signs Date Vital 05/10/2018 Blood Pressure 1: 130/72 Code : 8480-6 BMI: 28.2 Code : 53463-0 Heart Rate 1 : 70 bpm Height: 5'3" SpO2: 97% Weight: 159 lbs 04/21/2018 Blood Pressure 1: 154/70 Code : 8480-6 Heart Rate 1: 69 bpm Height: 5'3" SpO2: 96% Weight: 04/13/2018 Blood Pressure 1: 142/76 Code : 8480-6 Heart Rate 1: 78 bpm SpO2: 94% 04/07/2018 Blood Pressure 1: 160/80 Code : 8480-6 Heart Rate 1: 60 bpm 04/04/2018 Blood Pressure 1: 130/60 Code : 8480-6 Heart Rate 1: 78 bpm Height: Weight: 04/01/2018 Blood Pressure 1: 134/58 Code : 8480-6 BMI: 27.8 Code : 75464-0 Heart Rate 1 : 85 bpm Height: 5'3" SpO2: 96% Weight: 157 lbs 03/24/2018 Blood Pressure 1: 128/82 Code : 8480-6 BMI: 27.8 Code : 06114-6 Heart Rate 1 : 84 bpm Height: 5'3" SpO2: 97% Weight: 157 lbs 03/01/2018 Blood Pressure 1: 136/70 Code : 8480-6 BMI: 27.8 Code : 28565-9 Heart Rate 1 : 70 bpm Height: 5'3" SpO2: 96% Weight: 157 lbs 12/24/2017 Height: Weight: 11/18/2017 Blood Pressure 1: 164/74 Code : 8480-6 BMI: 27.6 Code : 39060-0 Heart Rate 1 : 70 bpm Height: 5'3" SpO2: 96% Weight: 156 lbs 11/03/2017 Blood Pressure 1: 118/72 Code : 8480-6 BMI: 27.6 Code : 47262-1 Heart Rate 1 : 82 bpm Height: 5'3" SpO2: 96% Weight: 156 lbs 09/22/2017 Blood Pressure 1: 136/68 Code : 8480-6 BMI: 27.6 Code : 07050-3 Heart Rate 1 : 70 bpm Height: 5'3" SpO2: 97% Weight: 156 lbs 04/01/2017 Blood Pressure 1: 144/82 Code : 8480-6 Heart Rate 1: 68 bpm Height: 5'3" SpO2: 97% Weight: 03/25/2017 Blood Pressure 1: 116/70 Code : 8480-6 BMI: 26.7 Code : 56837-2 Heart Rate 1 : 67 bpm Height: 5'3" SpO2: 98% Weight: 151 lbs 12/23/2016 BMI: 26.7 Code: 58620-2 Height: 5'3" Weight: 151 lbs 12/22/2016 Blood Pressure 1: 142/60 Code : 8480-6 BMI: 26.7 Code : 27253-3 Heart Rate 1 : 67 bpm Height: 5'3" SpO2: 98% Weight: 151 lbs 12/08/2016 Blood Pressure 1: 140/72 Code : 8480-6 Heart Rate 1: 72 bpm Height: 5'3" SpO2: 97% Weight: 11/30/2016 Blood Pressure 1: 128/80 Code : 8480-6 BMI: 26.7 Code : 63393-6 Heart Rate 1 : 63 bpm Height: 5'3" SpO2: 96% Weight: 151 lbs 09/28/2016 Blood Pressure 1: 130/80 Code : 8480-6 BMI: 27.1 Code : 60804-5 Heart Rate 1 : 80 bpm Height: 5'3" SpO2: 97% Weight: 153 lbs 07/06/2016 Blood Pressure 1: 162/72 Code : 8480-6 BMI: 27.6 Code : 01095-0 Heart Rate 1 : 72 bpm Height: 5'3" SpO2: 98% Weight: 156 lbs 06/01/2016 Blood Pressure 1: 122/66 Code : 8480-6 BMI: 27.5 Code : 78682-7 Heart Rate 1 : 73 bpm Height: 5'3" SpO2: 98% Weight: 155 lbs 8 oz 02/27/2016 Blood Pressure 1: 126/68 Code : 8480-6 BMI: 26.9 Code : 49386-2 Heart Rate 1 : 70 bpm Height: 5'3" SpO2: 98% Weight: 152 lbs 09/10/2015 Blood Pressure 1: 130/70 Code : 8480-6 BMI: 26.9 Code : 09881-8 Heart Rate 1 : 72 bpm Height: 5'3" SpO2: 97% Weight: 152 lbs 05/14/2015 Blood Pressure 1: 138/82 Code : 8480-6 BMI: 26.4 Code : 50617-0 Heart Rate 1 : 75 bpm Height: 5'3" SpO2: 98% Weight: 149 lbs 02/11/2015 Blood Pressure 1: 128/72 Code : 8480-6 BMI: 25.5 Code : 18800-9 Heart Rate 1 : 73 bpm Height: 5'3" SpO2: 94% Weight: 144 lbs Functional Status No Functional Status data History of Present Illness Symptom Name Status Result Effective Date Notes Limitation on Activities moderately limits activities 05/10/2018 None Frequency of Episodes daily 05/10/2018 None Pertinent Findings Denies fever 05/10/2018 None Onset and Resolution ongoing 05/10/2018 None Onset and Resolution ongoing 05/10/2018 None Location lumbar-sacral spine 05/10/2018 None Quality constant None Onset and Resolution ongoing 05/10/2018 None Limitation on Activities moderately limits activities 04/21/2018 None Pertinent Findings Denies fever 04/21/2018 None Onset and Resolution ongoing 04/21/2018 None Frequency of Episodes daily 04/21/2018 None Onset and Resolution ongoing 04/21/2018 None Location lumbar-sacral spine 04/21/2018 None Quality constant 06/2018 None Onset and Resolution ongoing 04/21/2018 None Limitation on Activities moderately limits activities 04/13/2018 None Onset and Resolution ongoing 04/13/2018 None Pertinent Findings Denies fever 04/13/2018 None Limitation on Activities does not limit activities 04/04/2018 None Pertinent Findings Denies cough 04/04/2018 None Pertinent Findings Denies fever 04/04/2018 None Onset and Resolution gradual in onset 04/04/2018 None Onset and Resolution ongoing 04/04/2018 None Significant Medical Conditions cardiac disease 04/04/2018 None Onset and Resolution ongoing 04/01/2018 None Onset and Resolution ongoing 04/01/2018 None Quality intermittent 03/24/2018 None Onset and Resolution ongoing 03/24/2018 None Onset of Symptom 1 weeks ago 03/24/2018 None Limitation on Activities moderately limits urination 03/24/2018 None Frequency of Episodes hourly 03/24/2018 None Pertinent Findings back pain 03/24/2018 None Pertinent Findings Denies fever 03/24/2018 None Pertinent Findings pelvic pain 03/24/2018 None Pertinent Findings urinary urgency 03/24/2018 None Location right ear None Quality sharp pain None Onset and Resolution Denies ongoing 03/24/2018 None Onset of Symptom 1 months ago 03/24/2018 None Location in the frontal area 03/24/2018 None Location in the left occipital area 03/24/2018 None Location in the right occipital area 03/24/2018 None Quality intermittent 03/24/2018 None Quality pressure 09/2017 None Onset and Resolution Denies gradual in onset 03/24/2018 None Onset of Symptom 1 months ago 03/24/2018 None Pertinent Findings Denies blurred vision 03/24/2018 None Pertinent Findings Denies nausea 03/24/2018 None headache Location in the right temporal region 03/01/2018 None headache Onset of Symptom 5 days ago 03/01/2018 None headache Limitation on Activities does not limit activities 03/01/2018 None headache Frequency of Episodes weekly 03/01/2018 None headache Pertinent Findings Denies dizziness 03/01/2018 None headache Pertinent Findings Denies blurred vision 03/01/2018 None earache Location right ear 03/01/2018 None earache Location left ear 03/01/2018 None earache Quality acute 03/01/2018 None earache Onset and Resolution ongoing 03/01/2018 None Annual Medicare Wellness Exam Alcohol Use drinks 1 days per week 12/24/2017 None Annual Medicare Wellness Exam Depression (last 6 months) almost never 12/24/2017 None Annual Medicare Wellness Exam Depression or Hopelessness almost never 12/24/2017 None Annual Medicare Wellness Exam Describe Your Health good 12/24/2017 None Annual Medicare Wellness Exam Exercise Habits exercises 3+ days per week 12/24/2017 None Annual Medicare Wellness Exam Motor Vehicle Safety always fastens seat belt: y 12/24/2017 None Annual Medicare Wellness Exam Smoking and Tobacco Use non smoker 12/24/2017 None Annual Medicare Wellness Exam Social & Emotional Support usually 12/24/2017 None Annual Medicare Wellness Exam Aspirin Use yes 12/24/2017 81mg daily Annual Medicare Wellness Exam Blood Glucose (self reported) don't know 12/24/2017 None Annual Medicare Wellness Exam Blood Pressure (self reported ) borderline (120/80 - 139/89) 12/24/2017 None Annual Medicare Wellness Exam Cholesterol (self reported) desireable (below 200) 12/24/2017 None Annual Medicare Wellness Exam Handling Stress usually taisha effectively 12/24/2017 None Annual Medicare Wellness Exam Hemaglobin A-1C (self reported ) don't know 12/24/2017 None Annual Medicare Wellness Exam Hours of Sleep 9-12/24/2017 None Annual Medicare Wellness Exam Interaction with Friends yes 12/24/2017 None Annual Medicare Wellness Exam Interests & Pleasure most of the time 12/24/2017 None Annual Medicare Wellness Exam Life Satisfaction satisfied 12/24/2017 None Annual Medicare Wellness Exam Nutrition servings of vegetables / fruit per day: 4-5 12/24/2017 None Annual Medicare Wellness Exam Stress almost never 12/24/2017 None Annual Medicare Wellness Exam Sun Exposure protects skin when outdoors: y 12/24/2017 None urinary retention/hesitancy Quality constant 11/18/2017 None urinary [...] Annual Medicare Wellness Exam Hours of Sleep 9-12/23/2016 None Annual Medicare Wellness Exam Interaction with [...] data Encounters Encounter Performer Location Codes Date 21911 EST. PATIENT, LEVEL IV Diagnosis: Essential (primary) hypertension[ICD10: I10] Diagnosis: Other fatigue[ICD10: R53.83] Bridget Cortez MD, [facility] CPT-4 : 34962 05/10/2018 63061 EST. PATIENT, LEVEL IV Diagnosis: Low back pain[ICD10: M54.5] Diagnosis: Essential (primary) hypertension[ICD10: I10] Diagnosis: Other fatigue[ICD10: R53.83] Diagnosis: Other malaise[ICD10: R53.81] Bridget Cortez MD, [facility] CPT-4 : 26828 04/21/2018 [id number] EST. PATIENT, LEVEL III Diagnosis: Other fatigue[ICD10: R53.83] Diagnosis: Otalgia, right ear[ICD10: H92.01] Bridget Cortez MD, [facility] CPT -4: 02640 04/13/2018 ([id number]) [id number] EST. PATIENT, LEVEL III Diagnosis: Essential (primary) hypertension[ICD10: I10] Diagnosis: Dysuria[ICD10: R30.0] Diagnosis: Nausea[ICD10: R11.0] Diagnosis: Headache[ICD10: R51] Elen Cortez MD, [facility] CPT-4: 35891 04/04/2018 26714 EST. PATIENT, LEVEL III Diagnosis: Other acute sinusitis[ICD10: J01.80] Diagnosis: Dizziness and giddiness[ICD10: R42] Diagnosis: Dysuria[ICD10: R30.0] Diagnosis: Candidal stomatitis[ICD10: B37.0] Diagnosis: Essential (primary) hypertension[ICD10: I10] Diagnosis: Other fatigue[ICD10: R53.83] Diagnosis: Other malaise[ICD10: R53.81] Bridget Cortez MD, [facility] CPT-4 : 26814 04/01/2018 ([id number]) 77500 EST. PATIENT, LEVEL III Diagnosis: Acute recurrent maxillary sinusitis[ICD10: J01.01] Diagnosis: Dysuria[ICD10: R30.0] Diagnosis: Unspecified mycosis[ICD10: B49] Diagnosis: Headache[ICD10: R51] Elen Cortez MD, [facility] CPT-4: 65281 03/24/2018 ([id number]) 99821 EST. PATIENT, LEVEL IV Diagnosis: Otalgia, right ear[ICD10: H92.01] Diagnosis: Headache[ICD10: R51] Diagnosis: Other fatigue[ICD10: R53.83] Diagnosis: Abnormal findings on diagnostic imaging of other specified body structures[ICD10: R93.89] Elen Cortez MD, [facility] CPT-4: 92972 03/01/2018 81211 EST. PATIENT, LEVEL III Diagnosis: Acute cystitis with hematuria[ICD10: N30.01] Bridget Cortez MD, [facility] CPT-4: 12374 11/18/2017 08238 EST. PATIENT, LEVEL IV Diagnosis: Other acute sinusitis[ICD10: J01.80] Diagnosis: Otalgia, right ear[ICD10: H92.01] Bridget Cortez MD, [facility] CPT -4: 90297 11/03/2017 87254 EST. PATIENT, LEVEL III Diagnosis: Other fatigue[ICD10: R53.83] Diagnosis: Other malaise[ICD10: R53.81] Diagnosis: Pain in left knee[ICD10: M25.562] Diagnosis: Pain in right knee[ICD10: M25.561] Bridget Cortez MD, [facility] CPT-4: 43588 09/22/2017 ([id number]) 85425 EST. PATIENT, LEVEL III Diagnosis: Cough[ICD10: R05] Diagnosis: Acute bronchitis due to other specified organisms[ICD10: J20.8] Elen Cortez MD, [facility] CPT-4: 23942 04/01/2017 ([id number]) 46854 EST. PATIENT, LEVEL III Diagnosis: Otalgia, right ear[ICD10: H92.01] Diagnosis: Other allergic rhinitis[ICD10: J30.89] Shiela Cortez MD, [facility] CPT-4: 45018 03/25/2017 ([id number]) 26809 EST. PATIENT, LEVEL III Diagnosis: Benign paroxysmal vertigo, bilateral[ICD10: H81.13] Shiela Cortez MD, [facility] CPT-4: 45876 12/22/2016 ([id number]) 99459 EST. PATIENT, LEVEL IV Diagnosis: Benign paroxysmal vertigo, bilateral[ICD10: H81.13] Diagnosis: Other allergic rhinitis[ICD10: J30.89] Diagnosis: Hypothyroidism, unspecified[ICD10: E03.9] Shiela Cortez MD, [facility] CPT-4: 52788 12/08/2016 ([id number]) 45468 EST. PATIENT, LEVEL IV Diagnosis: Atrophy of thyroid (acquired)[ICD10: E03.4] Diagnosis: Essential (primary) hypertension[ICD10: I10] Diagnosis: Mixed hyperlipidemia[ICD10: E78.2] Elen Cortez MD, [facility] CPT-4: 61836 11/30/2016 62961 EST. PATIENT, LEVEL IV Diagnosis: Headache[ICD10: R51] Diagnosis: Other fatigue[ICD10: R53.83] Diagnosis: Dizziness and giddiness[ICD10: R42] Bridget Cortez MD, [facility] CPT-4: 86185 09/28/2016 44383 EST. PATIENT, LEVEL IV Diagnosis: Essential (primary) hypertension[ICD10: I10] Diagnosis: Headache[ICD10: R51] Bridget Cortez MD, [facility] CPT-4: 46996 07/06/2016 ([id number]) 53684 EST. PATIENT, LEVEL IV Diagnosis: Essential (primary) hypertension[ICD10: I10] Diagnosis: Atrophy of thyroid (acquired)[ICD10: E03.4] Diagnosis: Mixed hyperlipidemia[ICD10: E78.2] Elen Cortez MD, [facility] CPT-4: 30968 06/01/2016 29811 EST. PATIENT, LEVEL IV Diagnosis: Acute laryngopharyngitis[ICD10: J06.0] Diagnosis: Other allergic rhinitis[ICD10: J30.89] Diagnosis: Other specified hypothyroidism[ICD10: E03.8] Diagnosis: Other fatigue[ICD10: R53.83] Bridget Cortez MD, [facility] CPT-4 : 25226 02/27/2016 ([id number]) 64191 EST. PATIENT, LEVEL III Diagnosis: Essential (primary) hypertension[ICD10: I10] Diagnosis: Mixed hyperlipidemia[ICD10: E78.2] [facility] CPT-4: 33599 09/10/2015 ([id number]) 04821 EST. PATIENT, LEVEL IV Diagnosis: Essential (primary) hypertension[ICD10: I10] Diagnosis: Hypothyroidism, unspecified[ICD10: E03.9] Diagnosis: Unspecified osteoarthritis, unspecified site[ICD10: M19.90] [facility] CPT-4: 77066 05/14/2015 ([id number]) OFFICE VISIT, NEW - LEVEL 4 Diagnosis: Essential (primary) hypertension[ICD10: I10] Diagnosis: Hypothyroidism, unspecified[ICD10: E03.9] Diagnosis: Unspecified osteoarthritis, unspecified site[ICD10: M19.90] [facility] CPT-4: 94617 02/11/2015 Plan of Care Planned Activity Notes Codes Status Date Visit Plan: Hypertension - The patient has been counseled to cut [...] pt is to call for acute concerns. fatigue - improving - no changes at this time - pt is to notify clinic with any questions or concerns. 05/10/2018 Appointment: Bridget Velazco WPtel: [address] [place], [place] [phone] (15 min) Moderate 05/10/2018 Patient Education: Patient Medication Summary Completed 05/10/2018 Appointment: Elen Cortez WPtel: [address] [place], [place] [phone] (15 min) Moderate 05/05/2018 Referral: Wan Steven Referral Completed 04/28/2018 Visit Plan: Hypertension - uncontrolled - Defer to cardiology - The patient has been counseled to cut [...] pt is to call for acute concerns. ongoing ear pain - will refer to ENT fatigue, malaise - pt is increase fluid intake and monitor symptoms - notify clinic if symptoms do not improve, if they worsen, or with any changes, questions, or concerns. 04/21/2018 Appointment: Bridget Velazco WPtel: [address] [place], [place] [phone] (15 min) Moderate 04/21/2018 Patient Education: Patient Medication Summary Completed 04/21/2018 Patient Education: Back Pain Completed 04/21/2018 Appointment: Bridget Velazco WPtel: [address] [place], [place] [phone] (15 min) Moderate 04/14/2018 Care Plan: Urine Culture Pending 04/14/2018 Visit Plan: UTI - symptoms resolved - repeat UA negative - pt is to notify clinic if symptoms return or with any questions or concerns Fatigue - pt is to notify clinic if symptoms are not improving, pt is to increase fluid intake Ear pain - ongoing - will refer to Dr. Saini. 04/13/2018 Appointment: Bridget Velazco WPtel: [address] [place], [place] [phone] (30 min) Complex 04/13/2018 Patient Education: Patient Medication Summary Completed 04/13/2018 Appointment: Nurse Visit 04/08/2018 Appointment: Bridget Velazco WPtel: [address] [place], [place] [phone] (15 min) Moderate 04/08/2018 Patient Education: Patient Medication Summary Completed 04/08/2018 Appointment: Injection 04/07/2018 Patient Education: Patient Medication Summary Completed 04/07/2018 Appointment: Injection 04/06/2018 Patient Education: Patient Medication Summary Completed 04/06/2018 Appointment: Injection 04/05/2018 Appointment: [facility] [phone] [facility] (15 min) Moderate 04/05/2018 Patient Education: Patient Medication Summary Completed 04/05/2018 Visit Plan: Hypertension - well controlled - continue with current medications, continue with no added salt diet. Pt has been encouraged to exercise daily. The pt has been advised to call the office if there are any acute concerns about change in blood pressure readings at home. Dysuria - with UTI - shot given today. Headache - toradol today. 04/04/2018 Appointment: El[facility] Cortez WPtel[facility] [phone] [facility] (10 min) Simple 04/04/2018 Patient Education: Patient Medication Summary Completed 04/04/2018 Patient Education: Patient Medication Summary Completed 04/04/2018 Patient Education: Patient Medication Summary Completed 04/04/2018 Care Plan: Referral Order SNOMED-CT : [id number] Pending 04/04/2018 Visit Plan: Dysuria, dizziness, fatigue, malaise - discussed with Dr. Cortez - will send for outpatient fluids and IV antibiotics - will send RX - pt is to follow up in 1 week, or sooner if needed. Pt is to go to the ER with any changes, questions, or concerns. Hypertension - uncontrolled - the patient's medications [...] pt is to call for acute concerns. Thrush - will send RX- pt is to notify clinic if symptoms do not improve. Sinusitis - Pt has acute infection - pain in face, maxillary region, Pt informed to use decongestant, RX given to patient, sinus rinses also recommended. Call if symptoms do not show improvement. 04/01/2018 Appointment: Bridget Velazco WPtel: [phone] [facility] (15 min) Moderate 04/01/2018 Patient Education: Patient Medication Summary Completed 04/01/2018 Visit Plan: Sinusitis - Pt has acute infection - pain in face, maxillary region, Pt informed to use decongestant, RX given to patient, sinus rinses also recommended. Call if symptoms do not show improvement. Dysuria - rx for antibiotic sent to pharmacy. 03/24/2018 Appointment: Elen Cortez WPtel: [phone] [facility] (15 min) Moderate 03/24/2018 Patient Education: Patient Medication Summary Completed 03/24/2018 Visit Plan: Hypertension - well controlled - continue with current medications, continue with no added salt diet. Pt has been encouraged to exercise daily. The pt has been advised to call the office if there are any acute concerns about change in blood pressure readings at home. Abnormal CT scan of neck - with possible air in neck on right side - she had a procedure with injection in floor of mouth last week prior to the air in neck. I have reviewed her scan with her today- and recommended that she be scheduled for ct of neck first week of March. Ear pain on right - hearing loss - discussed with patient - need to use oil in ear - call or come by if the hearing does not improve. 03/01/2018 Appointment: Elen Cortez WPtel: [phone] [facility] [place] (15 min) Moderate 03/01/2018 Patient Education: Patient Medication Summary Completed 03/01/2018 Visit Plan: Medicare Exam - today we [...] help decrease fall risk and to maintain independence in the home. Today we discussed the need for the patient to create paperwork for Advanced directives as well as for the patient to provide this office with a copy of her DOPA paperwork for health care surrogate. Allergies - chronic - recommended pt to [...] spray in the nasal steroid allergy spray. 12/24/2017 Appointment: Bridget Velazco WPtel: [facility] - Annual Wellness Visit 12/24/2017 Patient Education: Patient Medication Summary Completed 12/24/2017 Appointment: Bridget Velazco WPtel: [address] [place], [place] [phone] (15 min) Moderate 11/30/2017 Appointment: Lab Draw [...] not improve. 11/18/2017 Appointment: Bridget Velazco WPtel: [address] [place], [place] [phone] (15 min) Moderate 11/18/2017 Patient Education: Patient Medication Summary Completed 11/18/2017 Visit Plan: Sinusitis - Pt has acute infection - pain in face, maxillary region, Pt informed to use decongestant, RX given to patient, sinus rinses also recommended. Call if symptoms do not show improvement. 11/03/2017 Appointment: Bridget Velazco WPtel: [facility] (15 min) Moderate 11/03/2017 Patient Education: Patient [...] not improve. 09/22/2017 Appointment: Bridget Velazco WPtel: [facility]3 [facility] (15 min) Moderate 09/22/2017 Patient Education: Patient Medication Summary Completed 09/22/2017 Visit Plan: Bronchitis - acute case of bronchitis identified. Pt has been given antibiotics, breathing treatments as appropriate, and pt has been instructed to call if symptoms are not improved, or if symptoms acutely worsen. 04/01/2017 Appointment: Elen Cortez WPtel: [phone] [facility] (15 min) Moderate 04/01/2017 Patient Education: Patient [...] allergy spray. 03/25/2017 Appointment: Shiela Srivastava WPtel: [phone] [phone] [place] (10 min) Simple 03/25/2017 Appointment: Elen Cortez WPtel: [phone] [facility] [place] (15 min) Moderate 03/25/2017 Patient Education: Patient [...] care surrogate. 12/23/2016 Appointment: Bridget Velazco WPtel: [phone] [facility] [facility] - Annual Wellness Visit 12/23/2016 Patient Education: Patient Medication Summary Completed 12/23/2016 Visit Plan: Vertigo-discussed PT for vestibular exercises- patient wants to wait since symptoms are improving-continue anti histamine as directed-meclizine as needed 12/22/2016 Appointment: Shiela Srivastava WPtel: [phone] [phone] (30 min) Complex 12/22/2016 Patient Education: Patient [...] of control. 12/08/2016 Appointment: [facility]rivastava [facility]el: [phone] [phone] [place] (30 min) Complex 12/08/2016 Patient Education: Patient [...] to medications. 11/30/2016 Appointment: Elen Cortez WPtel: [facility] [place] (15 min) Moderate 11/30/2016 Patient Education: Patient [...] or concerns. 09/28/2016 Appointment: Bridget Velazco WPtel: [facility] (30 min) Complex 09/28/2016 Patient Education: Patient [...] concerns. 07/06/2016 Appointment: [facility] Velazco WPtel[facility] [phone] [facility] (15 min) Moderate 07/06/2016 Patient Education: Patient [...] improving 06/01/2016 Appointment: Elen Cortez WPtel: [phone] [facility] (15 min) Moderate 06/01/2016 Patient Education: Patient [...] check labs 02/27/2016 Appointment: Bridget Velazco WPtel: [facility] (30 min) [facility] 02/27/2016 Patient Education: Patient Medication Summary Completed 02/27/2016 Patient Education: Patient Medication Summary Completed 09/27/2015 Care Plan: SCREENINGMAMMOGRAPHYDIGITAL LOINC : 00414-5 Pending 09/27/2015 Visit Plan: Hypertension - well [...] provider for the colonoscopy 09/10/2015 Appointment: Elen Corteztel: [phone] [facility] (15 min) Moderate 09/10/2015 Patient Education: Patient [...] Sanchez. 05/14/2015 Appointment: Elen Cortez WPtel: [phone] [facility] (15 min) Moderate 05/14/2015 Patient Education: Patient Medication Summary Completed 05/14/2015 Patient Education: Hypertension Completed 05/14/2015 Care Plan: Referral Order SNOMED-CT : [id number] Ordered 05/14/2015 Patient Education: Patient Medication Summary Completed 03/01/2015 Appointment: Nurse Visit 02/28/2015 Patient Education: Patient Medication Summary Completed 02/28/2015 Patient Education: Patient Medication Summary Completed 02/27/2015 Appointment: Nurse Visit 02/26/2015 Patient Education: Patient Medication Summary Completed 02/26/2015 Appointment: Injection 02/25/2015 Patient Education: Patient Medication Summary Completed 02/25/2015 Patient Education: Patient Medication Summary Completed 02/21/2015 Care Plan: URINALYSIS NONAUTO W/O SCOPE LOINC : 23479-8 Ordered 02/21/2015 Visit Plan: Hypertension - well [...] pain symptoms. 02/11/2015 Appointment: Elen Cortez WPtel: [phone] [facility] [place] New Patient 02/11/2015 Patient Education: Patient Medication Summary Completed 02/11/2015 Patient Education: Hypertension Completed 02/11/2015 Referral: Dr. Ming Kessler WPtel: Referral Appointment Requested Referral: Wan Steven Referral Appointment Requested Instructions Comment . Medicare Exam - today we discussed [...] histamine as directed- meclizine as needed . Sinusitis - Pt has acute infection - pain in face, maxillary region, Pt informed to use decongestant, RX given to patient, sinus rinses also recommended. Call if symptoms do not show improvement. Dysuria - rx for antibiotic sent to pharmacy. . Hypertension - well controlled - continue with current medications, continue with no added salt diet. Pt has been encouraged to exercise daily. The pt has been advised to call the office if there are any acute concerns about change in blood pressure readings at home. Abnormal CT scan of neck - with possible air in neck on right side - she had a procedure with injection in floor of mouth last week prior to the air in neck. I have reviewed her scan with her today- and recommended that she be scheduled for ct of neck first week of March. Ear pain on right - hearing loss - discussed with patient - need to use oil in ear - call or come by if the hearing does not improve. . Hypertension - well controlled [...] change in blood pressure readings at home. Dysuria - with UTI - shot given today. Headache - toradol today. . Bronchitis - acute case of bronchitis [...] of her preferred provider for the colonoscopy take an extra metoprolol if your blood pressure is over 150 for the next 3 days. Dysuria, dizziness, fatigue, malaise - discussed with Dr. Cortez - will send for outpatient fluids and IV antibiotics - will send RX - pt is to follow up in 1 week, or sooner if needed. Pt is to go to the ER with any changes, questions, or concerns. Hypertension - uncontrolled - the patient's medications [...] pt is to call for acute concerns. Thrush - will send RX- pt is to notify clinic if symptoms do not improve. Sinusitis - Pt has acute infection - pain in face, maxillary region, Pt informed to use decongestant, RX given to patient, sinus rinses also recommended. Call if symptoms do not show improvement. increase lisinopril to 20mg twice a day. [...] call for acute concerns. . Hypertension - The patient has been counseled to cut [...] pt is to call for acute concerns. fatigue - improving - no changes at this time - pt is to notify clinic with any questions or concerns. . URI - Pt advised to [...] of control. Fatigue - will check labs . Fatigue, Malaise - will check labs [...] pain is worsening or does not improve. FLONASE TWICE DAILY KENALOG INJECTION TODAY . [...] in the nasal steroid allergy spray. . Hypertension - well controlled - continue [...] following orthopedic surgeon - Dr. Sanchez. . UTI - pt with positive urinalysis - culture sent if appropriate. Antibiotic electronically prescribed to pt's pharmacy of choice. Pt to call if symptoms do not improve. . UTI - pt with positive urinalysis - culture sent if appropriate. Antibiotic electronically prescribed to pt's pharmacy of choice. Pt to call if symptoms do not improve. . Sinusitis - Pt has acute infection - pain in face, maxillary region, Pt informed to use decongestant, RX given to patient, sinus rinses also recommended. Call if symptoms do not show improvement. . Medicare Exam - today we discussed [...] help decrease fall risk and to maintain independence in the home. Today we discussed the need for the patient to create paperwork for Advanced directives as well as for the patient to provide this office with a copy of her DOPA paperwork for health care surrogate. Allergies - chronic - recommended pt to [...] spray in the nasal steroid allergy spray. appointment with Dr. Saini on 05/11 at 1:15 . Hypertension - uncontrolled - Defer to cardiology - The patient has been counseled to cut [...] pt is to call for acute concerns. ongoing ear pain - will refer to ENT fatigue, malaise - pt is increase fluid intake and monitor symptoms - notify clinic if symptoms do not improve, if they worsen, or with any changes, questions, or concerns. [...] with any changes, questions, or concerns. . UTI - symptoms resolved - repeat UA negative - pt is to notify clinic if symptoms return or with any questions or concerns Fatigue - pt is to notify clinic if symptoms are not improving, pt is to increase fluid intake Ear pain - ongoing - will refer to Dr. Saini.
--- OUTSIDE RECORDS SUMMARY | 2018-06-01 12:21 | XMS REPORT | CCD ---
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 Name Role Phone PP Unavailable CCM Unavailable Summary Purpose Interface Exchange Insurance Providers Payer name Policy type / Coverage type Covered democrat ID Effective Begin Date Effective End Date WPS Medicare Part B Medicare Part B [id number] Unknown [place] [employer] Insurance Medicare Part B [id number] Unknown Family history Mother Diagnosis Age At [...] spouses - 02/11/[address]: 742871787 Never smoker 02/11/2015 Alcohol history Unknown occasionally drinks alcohol 02/11/2015 Allergies, Adverse Reactions, Alerts Substance Reaction Codes Entered Date Inactivated Date Status CODEINE RxNorm: 2670 02/11/2015 No Inactive Date Active allergy Unknown 12/23/2016 No Inactive Date Active ciprofloxacin rash, RxNorm: 51314 02/26/2015 No Inactive Date Active hydrocodone Unknown [...] Start Date Stop Date Status Fill Instructions metoprolol succinate ER 50 mg tablet,extended release 24 hr RxNorm: 273514 1 Tablet(s) daily may take 1 extra tab daily if systolic bp elevated 05/03/2018 11/28/2018 Active metoprolol succinate ER 50 mg tablet,extended release 24 hr RxNorm: 678001 Tablet (s) Tablet(s) TAKE 1 TABLET BY MOUTH DAILY 05/03/2018 05/02/2018 Inactive lisinopril 20 mg tablet RxNorm: 996867 TAKE 1 TABLET BY MOUTH TWICE DAILY 04/22/2018 09/18/2018 Active Generic For:*PRINIVIL 20 MG TABLET 04/22/2018 9:57:59 AM levocetirizine 5 mg tablet RxNorm: 079132 1 Tablet(s) PO daily 04/22/2018 05/21/2018 Active levocetirizine 5 mg tablet RxNorm: 104099 1 Tablet(s) PO daily 04/22/2018 04/21/2018 Inactive Singulair 10 mg tablet RxNorm: 803763 1 Tablet(s) PO QHS 201804/21/2018 Inactive Singulair 10 mg tablet RxNorm: 592747 1 Tablet(s) PO QHS 201805/12/2018 Inactive ceftriaxone 500 mg solution for injection RxNorm: 5000709 Inj 04/08/2018 04/08/2018 Inactive ceftriaxone 500 mg solution for injection RxNorm: 2494894 Inj 04/07/2018 04/07/2018 Inactive ceftriaxone 500 mg solution for injection RxNorm: 0728635 Inj 04/06/2018 04/06/2018 Inactive ketorolac 60 mg/2 mL intramuscular solution RxNorm: 0080218 Milliliter(s) IM 04/05/2018 04/05/2018 Inactive ceftriaxone 500 mg solution for injection RxNorm: 6112191 Inj 04/05/2018 04/05/2018 Inactive ondansetron 4 mg disintegrating tablet RxNorm: 925136 1 Tablet(s) PO TID as needed nausea 04/04/2018 No Stop Date Active ketorolac 30 mg/mL injection solution RxNorm: 748761 2 Milliliter(s) Inj 04/04/2018 04/04/2018 Inactive ceftriaxone 500 mg solution for injection RxNorm: 9887649 Inj 04/04/2018 04/04/2018 Inactive nystatin 100,000 unit/mL oral suspension RxNorm: 005945 4 Milliliter(s) PO QID 04/01/2018 04/05/2018 Inactive doxycycline hyclate 100 mg tablet RxNorm: 4669793 1 Tablet(s) PO BID 04/01/2018 04/10/2018 Inactive amoxicillin 500 mg capsule RxNorm: 340503 1 Capsule(s) PO TID 03/24/2018 04/02/2018 Inactive prednisone 10 mg tablet RxNorm: 894936 1 Tablet(s) PO UD 6 pills on day 1 and 2 and then decrease by one pill every other day until prescription is done 03/24/2018 05/12/2018 Inactive metoprolol succinate ER 50 mg tablet,extended release 24 hr RxNorm: 211560 Tablet (s) TAKE 1 TABLET BY MOUTH DAILY 03/21/2018 05/02/2018 Inactive PLEASE SEND REFILL REQUESTS ELECTRONICALLY!! Synthroid 88 mcg tablet RxNorm: 241416 TAKE 1 TABLET BY MOUTH DAILY 03/08/2018 08/04/2018 Active 03/07/2018 11:21:21 AM pravastatin 80 mg tablet RxNorm: 938302 Tablet(s) 1 Tablet(s) PO daily 03/01/2018 02/23/2019 Active Kenalog 40 mg/mL suspension for injection RxNorm: 1515814 Milliliter(s) Inj 12/24/2017 12/24/2017 Inactive cetirizine 10 mg tablet RxNorm: 9770734 TAKE 1 TABLET BY MOUTH DAILY 12/21/2017 04/19/2018 Inactive Generic For:*ZYRTEC 10 MG TABLET 12/21/2017 10:08:05 AM Synthroid 88 mcg tablet RxNorm: 053729 TAKE 1 TABLET BY MOUTH DAILY 12/07/2017 03/06/2018 Inactive 12/06/2017 11:46:49 AM Lipitor 80 mg tablet RxNorm: 344673 1 Tablet(s) PO daily 201702/28/2018 Inactive pravastatin 80 mg tablet RxNorm: 908570 1 Tablet(s) PO daily 11/29/2017 Inactive Lipitor 80 mg tablet RxNorm: 418857 1 Tablet(s) PO daily 201711/28/2017 Inactive lisinopril 20 mg tablet RxNorm: 902475 TAKE 1 TABLET BY MOUTH TWICE DAILY 11/23/2017 04/21/2018 Inactive Generic For:*PRINIVIL 20 MG TABLET 11/23/2017 11:29 :44 AM Macrobid 100 mg capsule RxNorm: 480718 1 Capsule(s) PO BID 06/201711/25/2017 Inactive Macrobid 100 mg capsule RxNorm: 752373 1 Capsule(s) PO BID 06/201711/18/2017 Inactive Lomotil 2.5 mg-0.025 mg tablet RxNorm: 8038491 1 -2 Tablet(s) PO TID as needed 11/19/2017 11/25/2017 Inactive Lomotil 2.5 mg-0.025 mg tablet RxNorm: 3868694 1 -2 Tablet(s) PO TID as needed 11/19/2017 11/18/2017 Inactive Pyridium 200 mg tablet RxNorm: 4719817 1 Tablet(s) PO TID as needed 11/18/2017 11/22/2017 Inactive Augmentin 500 mg-125 mg tablet RxNorm: 517337 1 Tablet(s) PO TID 11/18/2017 11/27/2017 Inactive Keflex 500 mg capsule RxNorm: 897638 1 Capsule(s) PO TID 201711/09/2017 Inactive Denavir 1 % topical cream RxNorm: 859631 1 TOP TID as needed cold sores 11/01/2017 01/29/2018 Inactive Denavir 1 % topical cream RxNorm: 321595 1 TOP TID as needed cold sores 11/01/2017 10/31/2017 Inactive Synthroid 88 mcg tablet RxNorm: 008850 TAKE 1 TABLET BY MOUTH DAILY 09/29/2017 11/27/2017 Inactive 09/29/2017 12:58:07 PM pravastatin 80 mg tablet RxNorm: 775235 1 Tablet(s) PO daily 08/30/2017 Inactive pravastatin 80 mg tablet RxNorm: 450085 1 Tablet(s) PO daily 11/28/2017 Inactive Synthroid 88 mcg tablet RxNorm: 156957 TAKE 1 TABLET BY MOUTH DAILY 08/30/2017 09/28/2017 Inactive 08/30/2017 10:53:26 AM metoprolol succinate ER 50 mg tablet,extended release 24 hr RxNorm: 744834 Tablet (s) TAKE 1 TABLET BY MOUTH DAILY 08/17/2017 03/14/2018 Inactive PLEASE SEND REFILL REQUESTS ELECTRONICALLY!! lisinopril 20 mg tablet RxNorm: 567479 TAKE 1 TABLET BY MOUTH TWICE DAILY 06/18/2017 11/14/2017 Inactive Generic For:*PRINIVIL 20 MG TABLET 06/18/2017 1:31: 00 PM Synthroid 88 mcg tablet RxNorm: 934959 TAKE 1 TABLET BY MOUTH DAILY 05/24/2017 08/21/2017 Inactive 05/24/2017 2:13:21 PM cetirizine 10 mg tablet RxNorm: 5462337 1 Tablet(s) PO daily 12/12/2017 Inactive Zithromax Z-Russell 250 mg capsule RxNorm: 326595 1 Capsule(s) PO 04/02/2017 04/05/2017 Inactive Zithromax Z-Russell 250 mg tablet RxNorm: 811127 1 Tablet(s) PO 04/01/2017 Inactive Zithromax Z-Russell 250 mg capsule RxNorm: 048539 1 Capsule(s) PO 04/02/2017 04/01/2017 Inactive Zithromax Z-Russell 250 mg tablet RxNorm: 671801 1 Tablet(s) PO 04/06/2017 Inactive Ventolin HFA 90 mcg/actuation aerosol inhaler RxNorm: 880704 2 INH QID as needed - for the first 3 days inhale at least two puffs three times daily, then use as needed for shortness of breath 04/01/2017 04/30/2017 Inactive Keflex 500 mg capsule RxNorm: 860973 1 Capsule(s) PO TID 201604/01/2017 Inactive meclizine 25 mg tablet RxNorm: 571658 Tablet(s) 1 Tablet(s) PO Q6 PRN 03/25/2017 03/24/2017 Inactive dizziness Kenalog 40 mg/mL suspension for injection RxNorm: 3205673 1 Milliliter(s) Inj 03/25/2017 03/25/2017 Inactive meclizine 25 mg tablet RxNorm: 954937 1 Tablet(s) PO Q6 PRN 1 Tablet(s) PO Q6 PRN 03/25/2017 05/12/2018 Inactive dizziness meclizine 25 mg tablet RxNorm: 709559 1 Tablet(s) PO Q6 PRN 03/24/2017 Inactive dizziness lisinopril 20 mg tablet RxNorm: 538726 1 Tablet(s) PO BID 01/1506/13/2017 Inactive metoprolol succinate ER 50 mg tablet,extended release 24 hr RxNorm: 433738 TAKE 1 TABLET BY MOUTH DAILY 01/07/20172017 Inactive Generic For:TOPROL XL 50MG TAB 01/07/2017 12:38:23 PM Synthroid 88 mcg tablet RxNorm: 840429 TAKE 1 TABLET BY MOUTH DAILY 12/25/2016 05/23/2017 Inactive 12/25/2016 9:47:08 AM Zithromax Z-Russell 250 mg tablet RxNorm: 922510 Tablet(s) PO UD 03/24/2017 Inactive meclizine 25 mg tablet RxNorm: 450510 1 Tablet(s) PO Q6 PRN 12/20/2016 Inactive dizziness Kenalog 40 mg/mL suspension for injection RxNorm: 3122888 Milliliter(s) Inj 12/08/2016 12/08/2016 Inactive meloxicam 15 mg tablet RxNorm: 400423 1 Tablet(s) PO daily 12/20/2016 Inactive cetirizine 10 mg tablet RxNorm: 3837526 1 Tablet(s) PO daily 05/16/2017 Inactive pravastatin 40 mg tablet RxNorm: 748888 1 Tablet(s) PO BID 07/201608/30/2017 Inactive Cancel 80 mg tab lisinopril 20 mg tablet RxNorm: 840367 1 Tablet(s) PO BID 08/1212/22/2016 Inactive Synthroid 88 mcg tablet RxNorm: 459241 1 Tablet(s) PO TAKE ONE (1) TABLET BY MOUTH DAILY 07/28/2016 12/24/2016 Inactive decrease dose hydralazine 25 mg tablet RxNorm: 376651 1 Tablet(s) PO TID as needed for Systolic blood pressure over 170 07/06/20162016 Inactive lisinopril 20 mg tablet RxNorm: 553841 1 Tablet(s) PO BID to replace your other lisinopril dose 07/06/2016 08/04/2016 Inactive lisinopril 10 mg tablet RxNorm: 517893 TAKE ONE TABLET BY MOUTH TWICE DAILY 06/10/2016 08/11/2016 Inactive Generic For:ZESTRIL 10 MG TABLET 06/09/2016 12:58: 50 PM triamcinolone acetonide 0.1 % topical cream RxNorm: 6286264 1 Application TOP TID as needed 06/01/2016 No Stop Date Active nystatin 100,000 unit/gram topical cream RxNorm: 549438 1 Gram(s) TOP TID as needed 06/01/2016 No Stop Date Active metoprolol succinate ER 50 mg tablet,extended release 24 hr RxNorm: 240229 1 Tablet(s) PO daily 05/26/2016 12/21/2016 Inactive cetirizine 10 mg tablet RxNorm: 0507634 1 Tablet(s) PO daily 10/18/2016 Inactive Synthroid 88 mcg tablet RxNorm: 567041 1 Tablet(s) PO TAKE ONE (1) TABLET BY MOUTH DAILY 03/06/2016 03/07/2018 Inactive Brand name only! Synthroid 88 mcg tablet RxNorm: 981768 1 Tablet(s) PO TAKE ONE (1) TABLET BY MOUTH DAILY 03/04/2016 03/05/2016 Inactive decrease dose cetirizine 10 mg tablet RxNorm: 8442817 1 Tablet(s) PO daily 03/22/2016 Inactive amoxicillin 500 mg capsule RxNorm: 620412 1 Capsule(s) PO TID 02/27/2016 03/04/2016 Inactive lisinopril 10 mg tablet RxNorm: 734345 TAKE ONE TABLET BY MOUTH TWICE DAILY 02/06/2016 06/04/2016 Inactive Generic For:ZESTRIL 10 MG TABLET 02/06/2016 12:16: 38 PM Synthroid 100 mcg tablet RxNorm: 874650 TAKE ONE (1) TABLET BY MOUTH DAILY 01/03/2016 03/03/2016 Inactive 01/03/2016 10:35:14 AM N O T I C E Last quantity doesn't match original quantity lisinopril 10 mg tablet RxNorm: 019643 1 Tablet(s) PO BID 10/0301/31/2016 Inactive Synthroid 100 mcg tablet RxNorm: 888073 1 Tablet(s) PO daily 01/02/2016 Inactive metoprolol succinate ER 50 mg tablet,extended release 24 hr RxNorm: 631918 1 Tablet(s) PO daily 10/04/2015 04/30/2016 Inactive Tylenol Arthritis 650 mg tablet,extended release RxNorm: 8870122 2 Tablet(s) PO TID 09/10/2015 No Stop Date Active metoprolol succinate ER 50 mg tablet,extended release 24 hr RxNorm: 328935 1 Tablet(s) PO daily 09/05/2015 10/03/2015 Inactive pravastatin 80 mg tablet RxNorm: 699954 1 Tablet(s) PO QHS 08/30/2015 Inactive pravastatin 40 mg tablet RxNorm: 966119 1 Tablet(s) PO BID 08/29/2015 Inactive Cancel 80 mg tab pravastatin 40 mg tablet RxNorm: 439486 1 Tablet(s) PO BID 08/19/2016 Inactive Cancel 80 mg tab lisinopril 10 mg tablet RxNorm: 758601 1 Tablet(s) PO BID 06/1308/11/2016 Inactive lisinopril 10 mg tablet RxNorm: 621269 1 Tablet(s) PO BID 06/1310/03/2015 Inactive Synthroid 100 mcg tablet RxNorm: 075376 1 Tablet(s) PO daily 10/03/2015 Inactive ceftriaxone 1 gram solution for injection RxNorm: 7437839 Inj 03/01/2015 03/01/2015 Inactive ceftriaxone 1 gram solution for injection RxNorm: 7948725 Inj 02/28/2015 02/28/2015 Inactive ceftriaxone 1 gram solution for injection RxNorm: 8191809 Inj 02/27/2015 02/27/2015 Inactive ceftriaxone 1 gram solution for injection RxNorm: 7844398 Inj 02/26/2015 02/26/2015 Inactive ceftriaxone 1 gram solution for injection RxNorm: 8517485 Inj 02/25/2015 02/25/2015 Inactive phenazopyridine 200 mg tablet RxNorm: 1106821 1 Tablet(s) PO Q8 02/21/2015 02/20/2015 Inactive Cipro 500 mg tablet RxNorm: 987238 1 Tablet(s) PO BID 201402/20/2015 Inactive phenazopyridine 200 mg tablet RxNorm: 4844942 1 Tablet(s) PO Q8 02/21/2015 02/25/2015 Inactive Cipro 500 mg tablet RxNorm: 156247 1 Tablet(s) PO BID 201402/27/2015 Inactive lisinopril 10 mg tablet RxNorm: 310820 1 Tablet(s) PO BID 02/1406/12/2015 Inactive metoprolol succinate ER 50 mg tablet,extended release 24 hr RxNorm: 487394 3/4 Tablet(s) PO daily 02/11/2015 09/04/2015 Inactive Voltaren 1 % topical gel RxNorm: 518794 2 Gram(s) TOP QID use this on affected joints up to four times daily. 02/11/2015 03/12/2015 Inactive Probiotic oral RxNorm : 6205 oral No Start Date Active aspirin 81 mg tablet RxNorm: 734492 1 Tablet(s) PO daily No Start Date Active Super B-Complex tablet RxNorm: 1 Tablet(s) PO No Start Date Active Super-D3+ oral RxNorm : oral No Start Date Active Prilosec OTC 20 mg tablet,delayed release RxNorm: 424709 2 Tablet(s) PO QAM No Start Date Active Flonase Allergy Relief 50 mcg/actuation nasal spray, suspension RxNorm: 9426448 1 [place] NASAL as needed No Start Date Active Move Free Ultra 40 mg-10 mg-3.3 mg tablet RxNorm: 1 Tablet(s) PO daily No Start Date Active metoprolol tartrate 50 mg tablet RxNorm: 009930 1 Tablet(s) PO daily No Start Date 02/10/2015 Inactive lisinopril 10 mg tablet RxNorm: 973636 1 Tablet(s) PO BID No Start Date 02/13/2015 Inactive pravastatin 80 mg tablet RxNorm: 516969 1 Tablet(s) PO daily No Start Date 08/29/2015 Inactive Flonase Allergy Relief 50 mcg/actuation nasal spray, suspension RxNorm: 7177943 1 [place] NASAL BID No Start Date 2018 Inactive Synthroid 100 mcg tablet RxNorm: 890077 1 Tablet(s) PO daily No Start Date 06/09/2015 Inactive lisinopril 40 mg tablet RxNorm: 800396 1 Tablet(s) PO BID No Start Date 02/28/2018 Inactive Tylenol Arthritis 650 mg tablet,extended release RxNorm: 2002094 4 Tablet(s) PO daily No Start Date 09/09/2015 Inactive Medication Administered Medication Codes Instructions Start Date Status ceftriaxone 500 mg solution for injection RxNorm: 5304926 04/08/2018 No longer Active ceftriaxone 500 mg solution for injection RxNorm: 4556087 04/07/2018 No longer Active ceftriaxone 500 mg solution for injection RxNorm: 1785806 04/06/2018 No longer Active ceftriaxone 500 mg solution for injection RxNorm: 8493053 04/05/2018 No longer Active ketorolac 60 mg/2 mL intramuscular solution RxNorm: 9252620 Milliliter 04/05/2018 No longer Active ceftriaxone 500 mg solution for injection RxNorm: 8873956 04/04/2018 No longer Active ketorolac 30 mg/mL injection solution RxNorm: 948767 2Milliliter 04/04/2018 No longer Active Kenalog 40 mg/mL suspension for injection RxNorm: 3170907 Milliliter 12/24/2017 No longer Active Kenalog 40 mg/mL suspension for injection RxNorm: 4847792 1Milliliter 03/25/2017 No longer Active Kenalog 40 mg/mL suspension for injection RxNorm: 9251518 Milliliter 12/08/2016 No longer Active ceftriaxone 1 gram solution for injection RxNorm: 3223815 03/01/2015 No longer Active ceftriaxone 1 gram solution for injection RxNorm: 5184021 02/28/2015 No longer Active ceftriaxone 1 gram solution for injection RxNorm: 6149871 02/27/2015 No longer Active ceftriaxone 1 gram solution for injection RxNorm: 6519931 02/26/2015 No longer Active ceftriaxone 1 gram solution for injection RxNorm: 9051906 02/25/2015 No longer Active Immunizations Vaccine Codes [...] body structures ICD-10: R93.89 ICD-9: 793.99 03/01/2018 Encounter for general adult medical examination with abnormal findings ICD-10: Z00.01 ICD-9: V70.0 12/24/2017 Other allergic rhinitis ICD-10: J30.89 ICD-9: 477.8 12/24/2017 Acute cystitis with hematuria ICD-10: N30.01 [...] fasting glucose ICD-10: R73.01 ICD-9: 790.21 12/09/2016 Mixed hyperlipidemia ICD-10: E78.2 ICD-9: 272.2 11/30/2016 Atrophy of thyroid (acquired) ICD-10: E03.4 ICD-9: 244.8 11/30/2016 Essential (primary) hypertension ICD-10: I10 ICD-9: 401.9 11/30/2016 Acute laryngopharyngitis ICD-10: J06.0 ICD-9: 465.0 [...] Item Item Code Result Date Free T4 Nfi138 FREE T4 1.07 ng/dL 04/04/2018 Tsh Ord6 TSH (3rd IS) 1.93 uIU/mL 04/04/2018 Urine Culture Ucult Preliminary NO Growth Day 1 03/28/2018 Urine Culture Ucult Complete NO Growth Day 2 03/28/2018 Urine Culture Ucult Complete >100,000 col/ml aerobic growth sent to ref lab 11/19/2017 B12 Qgq853 B12 712.00 pg/ml 09/28/2017 C-Reactive Protein Qnt Crqnt CRP 0.1 mg/dl 09/23/2017 Comp Metabolic Iek079 NA 139 mEq/L 09/23/2017 Comp Metabolic Xft649 K 4.8 mEq/L 09/23/2017 Comp Metabolic Eiq902 CL 104 mEq/L 09/23/2017 Comp Metabolic Hrh255 CO2 28.0 mEq/L 09/23/2017 Comp Metabolic Tik049 ANION GAP 12 09/23/2017 Comp Metabolic Ycp058 GLUCOSE 92 mg/dL 09/23/2017 Comp Metabolic Dzg206 Creat 0.7 mg/dL 09/23/2017 Comp Metabolic Qjw877 eGFR 91 ml/min/1.73m2 09/23/2017 Comp Metabolic Sbp721 BUN 11 mg/dL 09/23/2017 Comp Metabolic Ilt222 B/C Ratio 16.4 Ratio 09/23/2017 Comp Metabolic Njw989 CALCIUM 9.0 mg/dL 09/23/2017 Comp Metabolic Pls301 ALK PHOS 76 U/L 09/23/2017 Comp Metabolic Shz316 AST(SGOT) 24 U/L 09/23/2017 Comp Metabolic Bid590 ALT(SGPT) 21 U/L 09/23/2017 Comp Metabolic Rwi624 BILI T 0.3 mg/dL 09/23/2017 Comp Metabolic Wxv687 ALBUMIN 4.1 g/dL 09/23/2017 Comp Metabolic Oxk507 TPRO 6.2 g/dL 09/23/2017 Comp Metabolic Omj723 GLOB 2.1 g/dL 09/23/2017 Comp Metabolic Owt423 A/G Ratio 1.9 Ratio 09/23/2017 Comp Metabolic Ymt828 Osmo 277 mOsmo 09/23/2017 Sed Rate Ord21 ESR 3 mm/hr 09/22/2017 Vitamin D 25 Oh Uaw0990 VITAMIN D, 25 HYDROXY 78.79 ng/mL Tsh Ord6 TSH (3rd IS) 1.01 uIU/mL 09/22/2017 Cbc With Differential Ord2 WBC 8.21 K/ul 09/22/2017 Cbc With Differential Ord2 RBC 4.18 M/ul 09/22/2017 Cbc With Differential Ord2 HGB 12.8 g/dl 09/22/2017 Cbc With Differential Ord2 HCT 40.6 % 09/22/2017 Cbc With Differential Ord2 Neut% 57.3 % 09/22/2017 Cbc With Differential Ord2 Lymph% 28.9 % 09/22/2017 Cbc With Differential Ord2 MCV 97.1 fl 09/22/2017 Cbc With Differential Ord2 [place]% 10.5 % 09/22/2017 Cbc With Differential Ord2 MCH 30.6 pg 09/22/2017 Cbc With Differential Ord2 Eos% 2.8 % 09/22/2017 Cbc With Differential Ord2 MCHC 31.5 pg 09/22/2017 Cbc With Differential Ord2 PLT 253 K/ul 09/22/2017 Cbc With Differential Ord2 Baso% 0.5 % 09/22/2017 Cbc With Differential Ord2 RDW 12.7 % 09/22/2017 Cbc With Differential Ord2 Neut ABS# 4.71 K/ul 09/22/2017 Cbc With Differential Ord2 Lymph ABS# 2.37 K/ul 09/22/2017 Cbc With Differential Ord2 [place] ABS# 0.9 K/ul 09/22/2017 Cbc With Differential Ord2 Eos ABS# 0.2 K/ul 09/22/2017 Cbc With Differential Ord2 Baso ABS# 0.0 K/ul 09/22/2017 Free T4 Kqq074 FREE T4 0.99 ng/dL 09/22/2017 %Hba1C Ake218 % HbA1c 11845-8 6.0 % 12/10/2016 %Hba1C Qfx788 Gluc Ave 126 mg/dL 12/10/2016 Tsh Ord6 hTSH II 0.89 uIU/mL 12/09/2016 Free T4 Lku658 FREE T4 0.99 ng/dL 12/09/2016 Comp Metabolic Yoy335 NA 138 mEq/L 12/09/2016 Comp Metabolic Tlv867 K 5.2 mEq/L 12/09/2016 Comp Metabolic Cxn844 CL 104 mEq/L 12/09/2016 Comp Metabolic Skl281 CO2 29.0 mEq/L 12/09/2016 Comp Metabolic Ghd054 ANION GAP 10 12/09/2016 Comp Metabolic Tib657 GLUCOSE 135 mg/dL 12/09/2016 Comp Metabolic Coi590 Creat 0.8 mg/dL 12/09/2016 Comp Metabolic Itl876 eGFR 79 ml/min/1.73m2 12/09/2016 Comp Metabolic Tns289 BUN 18 mg/dL 12/09/2016 Comp Metabolic Jbx648 B/C Ratio 23.7 Ratio 12/09/2016 Comp Metabolic Pny237 CALCIUM 9.5 mg/dL 12/09/2016 Comp Metabolic Cdr864 ALK PHOS 73 U/L 12/09/2016 Comp Metabolic Wcx422 AST(SGOT) 24 U/L 12/09/2016 Comp Metabolic Lis910 ALT(SGPT) 20 U/L 12/09/2016 Comp Metabolic Drw650 BILI T 0.3 mg/dL 12/09/2016 Comp Metabolic Fyi692 ALBUMIN 4.3 g/dL 12/09/2016 Comp Metabolic Qig446 TPRO 6.4 g/dL 12/09/2016 Comp Metabolic Rnw460 GLOB 2.1 g/dL 12/09/2016 Comp Metabolic Txe721 A/G Ratio 2.0 Ratio 12/09/2016 Comp Metabolic Ydg846 Osmo 280 mOsmo 12/09/2016 Cbc With Differential [...] 31.3 pg 12/09/2016 Cbc With Differential Ord2 [place]% 6.5 % 12/09/2016 Cbc With Differential Ord2 MCHC 33.2 pg 12/09/2016 Cbc With Differential Ord2 Eos% 1.1 % 12/09/2016 Cbc With Differential Ord2 Baso% 0.7 % 12/09/2016 Cbc With Differential Ord2 PLT 247 K/ul 12/09/2016 Cbc With Differential Ord2 RDW 13.1 % 12/09/2016 Cbc With Differential Ord2 Neut ABS# 6.38 K/ul 12/09/2016 Cbc With Differential Ord2 Lymph ABS# 1.84 K/ul 12/09/2016 Cbc With Differential Ord2 [place] ABS# 0.6 K/ul 12/09/2016 Cbc With Differential Ord2 Eos ABS# 0.1 K/ul 12/09/2016 Cbc With Differential Ord2 Baso ABS# 0.1 K/ul 12/09/2016 Tsh Ord6 hTSH II 1.19 uIU/mL 09/02/2016 Free T4 Xrg325 FREE T4 0.97 ng/dL 09/02/2016 Comp Metabolic Nqe659 NA 137 mEq/L 06/01/2016 Comp Metabolic Hpj063 K 4.1 mEq/L 06/01/2016 Comp Metabolic Bqw943 CL 104 mEq/L 06/01/2016 Comp Metabolic Qug785 CO2 25.0 mEq/L 06/01/2016 Comp Metabolic Ovd304 ANION GAP 12 06/01/2016 Comp Metabolic Hmm775 GLUCOSE 108 mg/dL 06/01/2016 Comp Metabolic Amr364 Creat 0.8 mg/dL 06/01/2016 Comp Metabolic Bcy518 eGFR 80 ml/min/1.73m2 06/01/2016 Comp Metabolic Svi596 BUN 15 mg/dL 06/01/2016 Comp Metabolic Nba358 B/C Ratio 20.0 Ratio 06/01/2016 Comp Metabolic Cqu507 CALCIUM 9.1 mg/dL 06/01/2016 Comp Metabolic Ltv881 ALK PHOS 89 U/L 06/01/2016 Comp Metabolic Ivq247 AST(SGOT) 25 U/L 06/01/2016 Comp Metabolic Ddf809 ALT(SGPT) 20 U/L 06/01/2016 Comp Metabolic Qzv419 BILI T 0.3 mg/dL 06/01/2016 Comp Metabolic Xyb446 ALBUMIN 4.2 g/dL 06/01/2016 Comp Metabolic Cdx657 TPRO 6.2 g/dL 06/01/2016 Comp Metabolic Vqz067 GLOB 2.0 g/dL 06/01/2016 Comp Metabolic Ghy390 A/G Ratio 2.1 Ratio 06/01/2016 Comp Metabolic Gla719 Osmo 275 mOsmo 06/01/2016 Free T4 Puv159 FREE T4 0.94 ng/dL 06/01/2016 Tsh Ord6 [...] 41.8 % 06/01/2016 Cbc With Differential Ord2 Lymph% 44.5 % 06/01/2016 Cbc With Differential Ord2 MCV 96.4 fl 06/01/2016 Cbc With Differential Ord2 MCH 31.1 pg 06/01/2016 Cbc With Differential Ord2 [place]% 8.4 % 06/01/2016 Cbc With Differential Ord2 MCHC 32.2 pg 06/01/2016 Cbc With Differential Ord2 Eos% 4.5 % 06/01/2016 Cbc With Differential Ord2 PLT 243 K/ul 06/01/2016 Cbc With Differential Ord2 Baso% 0.8 % 06/01/2016 Cbc With Differential Ord2 RDW 12.8 % 06/01/2016 Cbc With Differential Ord2 Neut ABS# 2.78 K/ul 06/01/2016 Cbc With Differential Ord2 Lymph ABS# 2.96 K/ul 06/01/2016 Cbc With Differential Ord2 [place] ABS# 0.6 K/ul 06/01/2016 Cbc With Differential [...] 31.3 pg 02/27/2016 Cbc With Differential Ord2 [place]% 10.0 % 02/27/2016 Cbc With Differential Ord2 [...] 2.28 K/ul 02/27/2016 Cbc With Differential Ord2 [place] ABS# 0.9 K/ul 02/27/2016 Cbc With Differential Ord2 Eos ABS# 0.3 K/ul 02/27/2016 Cbc With Differential Ord2 Baso ABS# 0.1 K/ul 02/27/2016 Tsh Ord6 hTSH II 0.18 uIU/mL 02/27/2016 Free T4 Krz730 FREE T4 1.17 ng/dL 02/27/2016 Comp Metabolic Gua720 NA 135 mEq/L 02/27/2016 Comp Metabolic Dmt223 K 5.2 mEq/L 02/27/2016 Comp Metabolic Vyw452 CL 102 mEq/L 02/27/2016 Comp Metabolic Rxf680 CO2 27.0 mEq/L 02/27/2016 Comp Metabolic Eab123 ANION GAP 11 02/27/2016 Comp Metabolic Ffq148 GLUCOSE 93 mg/dL 02/27/2016 Comp Metabolic Yhi654 Creat 0.7 mg/dL 02/27/2016 Comp Metabolic Pdp872 eGFR 91 ml/min/1.73m2 02/27/2016 Comp Metabolic Eqa155 BUN 14 mg/dL 02/27/2016 Comp Metabolic Ipa842 B/C Ratio 20.9 Ratio 02/27/2016 Comp Metabolic Tse918 CALCIUM 9.4 mg/dL 02/27/2016 Comp Metabolic Snx979 ALK PHOS 100 U/L 02/27/2016 Comp Metabolic Mur475 AST(SGOT) 23 U/L 02/27/2016 Comp Metabolic Ztv704 ALT(SGPT) 24 U/L 02/27/2016 Comp Metabolic Kqk271 BILI T 0.2 mg/dL 02/27/2016 Comp Metabolic Mdy267 ALBUMIN 4.3 g/dL 02/27/2016 Comp Metabolic Tro149 TPRO 6.3 g/dL 02/27/2016 Comp Metabolic Pnc302 GLOB 2.1 g/dL 02/27/2016 Comp Metabolic Sto654 A/G Ratio 2.1 Ratio 02/27/2016 Comp Metabolic Xot946 Osmo 270 mOsmo 02/27/2016 Free T4 Vuc855 FREE T4 1.03 ng/dL 05/10/2015 Comp Metabolic Yws819 NA 137 mEq/L 05/10/2015 Comp Metabolic Gor048 K 4.4 mEq/L 05/10/2015 Comp Metabolic Xer223 CL 102 mEq/L 05/10/2015 Comp Metabolic Qza488 CO2 28.0 mEq/L 05/10/2015 Comp Metabolic Ldt699 ANION GAP 11 05/10/2015 Comp Metabolic Tgh196 GLUCOSE 108 mg/dL 05/10/2015 Comp Metabolic Ktr380 Creat 0.7 mg/dL 05/10/2015 Comp Metabolic Mny272 eGFR 86 ml/min/1.73m2 05/10/2015 Comp Metabolic Dfl780 BUN 13 mg/dL 05/10/2015 Comp Metabolic Zvx384 B/C Ratio 18.3 Ratio 05/10/2015 Comp Metabolic Tzt217 CALCIUM 9.4 mg/dL 05/10/2015 Comp Metabolic Vvu452 ALK PHOS 94 U/L 05/10/2015 Comp Metabolic Iek985 AST(SGOT) 22 U/L 05/10/2015 Comp Metabolic Vdh664 ALT(SGPT) 21 U/L 05/10/2015 Comp Metabolic Eog304 BILI T 0.3 mg/dL 05/10/2015 Comp Metabolic Qli127 ALBUMIN 3.9 g/dL 05/10/2015 Comp Metabolic Clj643 TPRO 6.1 g/dL 05/10/2015 Comp Metabolic Tea050 GLOB 2.2 g/dL 05/10/2015 Comp Metabolic Vto140 A/G Ratio 1.7 Ratio 05/10/2015 Comp Metabolic Euk561 Osmo 274 mOsmo 05/10/2015 Tsh Ord6 hTSH [...] 29.4 pg 05/10/2015 Cbc With Differential Ord2 [place]% 9.0 % 05/10/2015 Cbc With Differential Ord2 MCHC 31.8 pg 05/10/2015 Cbc With Differential Ord2 Eos% 4.7 % 05/10/2015 Cbc With Differential Ord2 Baso% 0.9 % 05/10/2015 Cbc With Differential Ord2 PLT 228 K/ul 05/10/2015 Cbc With Differential Ord2 Neut ABS# 2.79 K/ul 05/10/2015 Cbc With Differential Ord2 RDW 13.3 % 05/10/2015 Cbc With Differential Ord2 Lymph ABS# 2.14 K/ul 05/10/2015 Cbc With Differential Ord2 [place] ABS# 0.5 K/ul 05/10/2015 Cbc With Differential [...] Ord30 C/HDL 3.8 Ratio 05/10/2015 Culture Urine [id number] URINE CULTURE SEE NOTES 02/25/2015 Culture Urine [id number] Continued Results 02/25/2015 Urine Culture Ucult Complete >100,000 col/ml aerobic growth sent to ref lab 02/22/2015 Free T4 Vcu309 FREE T4 1.16 ng/dL 02/11/2015 Tsh Ord6 [...] None Full Exam - General 1995 Ears/Nose/Throat otoscopic exam Tympanic membrane: air- fluid [...] normal 12/24/2017 None Full Exam - General 1994 Ears/Nose/Throat lips/teeth/gingiva Overall: benign lips 12/24/2017 None [...] None Full Exam - General 1995 Ears/Nose/Throat otoscopic exam Overall: external auditory canals clear 09/22/2017 None Full Exam - General 1994 Ears/Nose/Throat lips/teeth/gingiva Overall: benign lips 09/22/2017 None Full Exam - General 1995 [...] Procedure Codes Date THER/PROPH/DIAG INJ SC/IM CPT-4: 24969 04/08/2018 ROCEPHIN, PER 250 MG CPT-4: J0696 04/08/2018 THER/PROPH/DIAG INJ SC/IM CPT-4: 46841 04/07/2018 ROCEPHIN, PER 250 MG CPT-4: J0696 04/07/2018 THER/PROPH/DIAG INJ SC/IM CPT-4: 59992 04/06/2018 ROCEPHIN, PER 250 MG CPT-4: J0696 04/06/2018 THER/PROPH/DIAG INJ SC/IM CPT-4: 83612 04/05/2018 ROCEPHIN, PER 250 MG CPT-4: J0696 04/05/2018 KETOROLAC TROMETHAMINE INJ CPT-4: J1885 04/05/2018 THER/PROPH/DIAG INJ SC/IM CPT-4: 04418 04/04/2018 ROCEPHIN, PER 250 MG CPT-4: J0696 04/04/2018 KETOROLAC TROMETHAMINE INJ CPT-4: J1885 04/04/2018 URINALYSIS NONAUTO W/O SCOPE CPT-4: 47293 03/24/2018 PPPS, SUBSEQ VISIT CPT -4: G0439 12/24/2017 THER/PROPH/DIAG INJ SC/IM CPT-4: 03270 12/24/2017 TRIAMCINOLONE ACET INJ NOS CPT-4: J3301 12/24/2017 THER/PROPH/DIAG INJ SC/IM CPT-4: 83922 11/18/2017 ROCEPHIN, PER 250 MG CPT-4: J0696 11/18/2017 PRESCRIP TRANSMIT VIA ERX SY CPT-4: G8553 04/01/2017 TRIAMCINOLONE ACET INJ NOS CPT-4: J3301 03/25/2017 PPPS, SUBSEQ VISIT CPT -4: G0439 12/23/2016 THER/PROPH/DIAG INJ SC/IM CPT-4: 91325 12/08/2016 TRIAMCINOLONE ACET INJ NOS CPT-4: J3301 12/08/2016 PRESCRIP TRANSMIT VIA ERX SY CPT-4: G8553 12/08/2016 PRESCRIP TRANSMIT VIA ERX SY CPT-4: G8553 11/30/2016 URINALYSIS NONAUTO W/O SCOPE CPT-4: 33628 07/08/2016 PRESCRIP TRANSMIT VIA ERX SY CPT-4: G8553 06/01/2016 PRESCRIP TRANSMIT VIA ERX SY CPT-4: G8553 02/27/2016 THER/PROPH/DIAG INJ SC/IM CPT-4: 70228 03/01/2015 ROCEPHIN, PER 250 MG CPT-4: J0696 03/01/2015 THER/PROPH/DIAG INJ SC/IM CPT-4: 92540 02/28/2015 ROCEPHIN, PER 250 MG CPT-4: J0696 02/28/2015 THER/PROPH/DIAG INJ SC/IM CPT-4: 13929 02/27/2015 ROCEPHIN, PER 250 MG CPT-4: J0696 02/27/2015 THER/PROPH/DIAG INJ SC/IM CPT-4: 77601 02/26/2015 ROCEPHIN, PER 250 MG CPT-4: J0696 02/26/2015 THER/PROPH/DIAG INJ SC/IM CPT-4: 14515 02/25/2015 ROCEPHIN, PER 250 MG CPT-4: J0696 02/25/2015 URINALYSIS NONAUTO W/O SCOPE CPT-4: 25373 02/21/2015 Vital Signs Date Vital 05/10/2018 Blood Pressure 1: 130/72 Code : 8480-6 BMI: 28.2 Code : 85058-4 Heart Rate 1 : 70 bpm Height: [...] Code : 8480-6 BMI: 27.8 Code : 28790-6 Heart Rate 1 : 85 bpm Height: 5'3" SpO2: 96% Weight: 157 lbs 03/24/2018 Blood Pressure 1: 128/82 Code : 8480-6 BMI: 27.8 Code : 11660-8 Heart Rate 1 : 84 bpm Height: 5'3" SpO2: 97% Weight: 157 lbs 03/01/2018 Blood Pressure 1: 136/70 Code : 8480-6 BMI: 27.8 Code : 36259-0 Heart Rate 1 : 70 bpm Height: 5'3" SpO2: 96% Weight: 157 lbs 12/24/2017 Height: Weight: 11/18/2017 Blood Pressure 1: 164/74 Code : 8480-6 BMI: 27.6 Code : 11253-3 Heart Rate 1 : 70 bpm Height: 5'3" SpO2: 96% Weight: 156 lbs 11/03/2017 Blood Pressure 1: 118/72 Code : 8480-6 BMI: 27.6 Code : 62630-7 Heart Rate 1 : 82 bpm Height: 5'3" SpO2: 96% Weight: 156 lbs 09/22/2017 Blood Pressure 1: 136/68 Code : 8480-6 BMI: 27.6 Code : 73841-1 Heart Rate 1 : 70 bpm Height: 5'3" SpO2: 97% Weight: 156 lbs 04/01/2017 Blood Pressure 1: 144/82 Code : 8480-6 Heart Rate 1: 68 bpm Height: 5'3" SpO2: 97% Weight: 03/25/2017 Blood Pressure 1: 116/70 Code : 8480-6 BMI: 26.7 Code : 32628-5 Heart Rate 1 : 67 bpm Height: 5'3" SpO2: 98% Weight: 151 lbs 12/23/2016 BMI: 26.7 Code: 37199-4 Height: 5'3" Weight: 151 lbs 12/22/2016 Blood Pressure 1: 142/60 Code : 8480-6 BMI: 26.7 Code : 69434-2 Heart Rate 1 : 67 bpm Height: 5'3" SpO2: 98% Weight: 151 lbs 12/08/2016 Blood Pressure 1: 140/72 Code : 8480-6 Heart Rate 1: 72 bpm Height: 5'3" SpO2: 97% Weight: 11/30/2016 Blood Pressure 1: 128/80 Code : 8480-6 BMI: 26.7 Code : 89215-3 Heart Rate 1 : 63 bpm Height: 5'3" SpO2: 96% Weight: 151 lbs 09/28/2016 Blood Pressure 1: 130/80 Code : 8480-6 BMI: 27.1 Code : 49896-1 Heart Rate 1 : 80 bpm Height: 5'3" SpO2: 97% Weight: 153 lbs 07/06/2016 Blood Pressure 1: 162/72 Code : 8480-6 BMI: 27.6 Code : 29407-5 Heart Rate 1 : 72 bpm Height: 5'3" SpO2: 98% Weight: 156 lbs 06/01/2016 Blood Pressure 1: 122/66 Code : 8480-6 BMI: 27.5 Code : 01584-6 Heart Rate 1 : 73 bpm Height: 5'3" SpO2: 98% Weight: 155 lbs 8 oz 02/27/2016 Blood Pressure 1: 126/68 Code : 8480-6 BMI: 26.9 Code : 35797-9 Heart Rate 1 : 70 bpm Height: 5'3" SpO2: 98% Weight: 152 lbs 09/10/2015 Blood Pressure 1: 130/70 Code : 8480-6 BMI: 26.9 Code : 35531-8 Heart Rate 1 : 72 bpm Height: 5'3" SpO2: 97% Weight: 152 lbs 05/14/2015 Blood Pressure 1: 138/82 Code : 8480-6 BMI: 26.4 Code : 33518-3 Heart Rate 1 : 75 bpm Height: 5'3" SpO2: 98% Weight: 149 lbs 02/11/2015 Blood Pressure 1: 128/72 Code : 8480-6 BMI: 25.5 Code : 07672-7 Heart Rate 1 : 73 bpm Height: [...] Medicare Wellness Exam Hours of Sleep 9-10 12/24/2017 None Annual Medicare Wellness Exam Interaction with [...] data Encounters Encounter Performer Location Codes Date 87759 EST. PATIENT, LEVEL IV Diagnosis: Essential (primary) hypertension[ICD10: I10] Diagnosis: Other fatigue[ICD10: R53.83] Bridget Cortez MD, [facility] CPT-4 : 82266 05/10/2018 [id number] EST. PATIENT, LEVEL IV Diagnosis: Low back pain[ICD10: M54.5] Diagnosis: Essential (primary) hypertension[ICD10: I10] Diagnosis: Other fatigue[ICD10: R53.83] Diagnosis: Other malaise[ICD10: R53.81] Bridget Cortez MD, [facility] CPT-4 : 76806 04/21/2018 55802 EST. PATIENT, LEVEL III Diagnosis: Other fatigue[ICD10: R53.83] Diagnosis: Otalgia, right ear[ICD10: H92.01] Bridget Cortez MD, [facility] CPT -4: 47841 04/13/2018 ([id number]) 10263 EST. PATIENT, LEVEL III Diagnosis: Essential (primary) hypertension[ICD10: I10] Diagnosis: Dysuria[ICD10: R30.0] Diagnosis: Nausea[ICD10: R11.0] Diagnosis: Headache[ICD10: R51] Elen Cortez MD, [facility] CPT-4: 17313 04/04/2018 68925 EST. PATIENT, LEVEL III Diagnosis: Other acute sinusitis[ICD10: J01.80] Diagnosis: Dizziness and giddiness[ICD10: R42] Diagnosis: Dysuria[ICD10: R30.0] Diagnosis: Candidal stomatitis[ICD10: B37.0] Diagnosis: Essential (primary) hypertension[ICD10: I10] Diagnosis: Other fatigue[ICD10: R53.83] Diagnosis: Other malaise[ICD10: R53.81] Bridget Cortez MD, [facility] CPT-4 : 76512 04/01/2018 ([id number]) 01452 EST. 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 PATIENT, LEVEL IV Diagnosis: Otalgia, right ear[ICD10: H92.01] Diagnosis: Headache[ICD10: R51] Diagnosis: Other fatigue[ICD10: R53.83] Diagnosis: Abnormal findings on diagnostic imaging of other specified body structures[ICD10: R93.89] Elen Cortez MD, [facility] CPT-4: 78711 03/01/2018 55006 EST. PATIENT, LEVEL III Diagnosis: Acute cystitis with hematuria[ICD10: N30.01] Bridget Cortez MD, [facility] CPT-4: 02868 11/18/2017 22058 EST. PATIENT, LEVEL IV Diagnosis: Other acute sinusitis[ICD10: J01.80] Diagnosis: Otalgia, right ear[ICD10: H92.01] Bridget Cortez MD, [facility] CPT -4: 54510 11/03/2017 83811 EST. PATIENT, LEVEL III Diagnosis: Other fatigue[ICD10: R53.83] Diagnosis: Other malaise[ICD10: R53.81] Diagnosis: Pain in left knee[ICD10: M25.562] Diagnosis: Pain in right knee[ICD10: M25.561] Bridget Cortez MD, [facility] CPT-4: 58141 09/22/2017 ([id number]) 02964 EST. PATIENT, LEVEL III Diagnosis: Cough[ICD10: R05] Diagnosis: Acute bronchitis due to other specified organisms[ICD10: J20.8] Elen Cortez MD, [facility] CPT-4: 44432 04/01/2017 ([id number]) 61051 EST. PATIENT, LEVEL III Diagnosis: Otalgia, right ear[ICD10: H92.01] Diagnosis: Other allergic rhinitis[ICD10: J30.89] Shiela Cortez MD, [facility] CPT-4: 12383 03/25/2017 ([id number]) 77932 EST. PATIENT, LEVEL III Diagnosis: Benign paroxysmal vertigo, bilateral[ICD10: H81.13] Shiela Cortez MD, [facility] CPT-4: 90071 12/22/2016 ([id number]) 20810 EST. PATIENT, LEVEL IV Diagnosis: Benign paroxysmal vertigo, bilateral[ICD10: H81.13] Diagnosis: Other allergic rhinitis[ICD10: J30.89] Diagnosis: Hypothyroidism, unspecified[ICD10: E03.9] Shiela Cortez MD, [facility] CPT-4: 38683 12/08/2016 ([id number]) 98805 EST. PATIENT, LEVEL IV Diagnosis: Atrophy of thyroid (acquired)[ICD10: E03.4] Diagnosis: Essential (primary) hypertension[ICD10: I10] Diagnosis: Mixed hyperlipidemia[ICD10: E78.2] Elen Cortez MD, [facility] CPT-4: 48852 11/30/2016 99239 EST. PATIENT, LEVEL IV Diagnosis: Headache[ICD10: R51] Diagnosis: Other fatigue[ICD10: R53.83] Diagnosis: Dizziness and giddiness[ICD10: R42] Bridget Cortez MD, [facility] CPT-4: 47411 09/28/2016 09450 EST. PATIENT, LEVEL IV Diagnosis: Essential (primary) hypertension[ICD10: I10] Diagnosis: Headache[ICD10: R51] Bridget Cortez MD, [facility] CPT-4: 86184 07/06/2016 ([id number]) 76813 EST. PATIENT, LEVEL IV Diagnosis: Essential (primary) hypertension[ICD10: I10] Diagnosis: Atrophy of thyroid (acquired)[ICD10: E03.4] Diagnosis: Mixed hyperlipidemia[ICD10: E78.2] Elen Cortez MD, [facility] CPT-4: 07469 06/01/2016 99786 EST. PATIENT, LEVEL IV Diagnosis: Acute laryngopharyngitis[ICD10: J06.0] Diagnosis: Other allergic rhinitis[ICD10: J30.89] Diagnosis: Other specified hypothyroidism[ICD10: E03.8] Diagnosis: Other fatigue[ICD10: R53.83] [facility] CPT-4 : 93775 02/27/2016 ([id number]) 58864 EST. PATIENT, LEVEL III Diagnosis: Essential (primary) hypertension[ICD10: I10] Diagnosis: Mixed hyperlipidemia[ICD10: E78.2] [facility] CPT-4: 82954 09/10/2015 ([id number]) 78765 EST. PATIENT, LEVEL IV Diagnosis: Essential (primary) hypertension[ICD10: I10] Diagnosis: Hypothyroidism, unspecified[ICD10: E03.9] Diagnosis: Unspecified osteoarthritis, unspecified site[ICD10: M19.90] [facility] CPT-4: 00071 05/14/2015 ([id number]) OFFICE VISIT, NEW - LEVEL 4 Diagnosis: Essential (primary) hypertension[ICD10: I10] Diagnosis: Hypothyroidism, unspecified[ICD10: E03.9] Diagnosis: Unspecified osteoarthritis, unspecified site[ICD10: M19.90] [facility] CPT-4: 85239 02/11/2015 Plan of Care Planned Activity Notes [...] or concerns. 05/10/2018 Appointment: Bridget Velazco WPtel: [phone] [place], [place] [address] (15 min) Moderate 05/10/2018 Patient Education: Patient Medication Summary Completed 05/10/2018 App[facility]ment[phone] [place] (15 min) Moderate 05/05/2018 Referral: Wan Steven [...] or concerns. 04/21/2018 Appointment: Bridget Velazco WPtel: [phone] [facility] (15 min) Moderate 04/21/2018 Patient Education: Patient Medication Summary Completed 04/21/2018 Patient Education: Back Pain Completed 04/21/2018 Appointment: Bridget Velazco WPtel: [phone] [facility] [place] (15 min) Moderate 04/14/2018 Care Plan: Urine [...] Dr. Saini. 04/13/2018 Appointment: [facility] Velazco [facility]Ptel: [phone] [place] (30 min) Complex 04/13/2018 Patient Education: Patient Medication Summary Completed 04/13/2018 Appointment: Nurse Visit 04/08/2018 Appointment: Br[facility] Velazco WPtel[phone] [place] (15 min) Moderate 04/08/2018 Patient Education: Patient Medication Summary Completed 04/08/2018 Appointment: Injection 04/07/2018 Patient Education: Patient Medication Summary Completed 04/07/2018 Appointment: Injection 04/06/2018 Patient Education: Patient Medication Summary Completed 04/06/2018 Appointment: Injection 04/05/2018 Appointment: [phone] (15 min) Moderate 04/05/2018 Patient Education: Patient [...] toradol today. 04/04/2018 Appointment: [phone] (10 min) Simple 04/04/2018 Patient Education: Patient Medication Summary Completed 04/04/2018 Patient Education: Patient Medication Summary Completed 04/04/2018 Patient Education: Patient Medication Summary Completed 04/04/2018 Care Plan: Referral Order SNOMED-CT : [id number] Pending 04/04/2018 Visit Plan: Dysuria, dizziness, fatigue, [...] do not show improvement. 04/01/2018 Appointment: Bridget Velazcol: [phone] [facility] (15 min) Moderate 04/01/2018 Patient Education: Patient Medication Summary Completed 04/01/2018 Visit Plan: Sinusitis - Pt has acute infection - pain in face, maxillary region, Pt informed to use decongestant, RX given to patient, sinus rinses also recommended. Call if symptoms do not show improvement. Dysuria - rx for antibiotic sent to pharmacy. 03/24/2018 Appointment: [facility] Cortez [facility]el[phone] (15 min) Moderate 03/24/2018 Patient Education: Patient [...] not improve. 03/01/2018 Appointment: Elen Cortez WPtel: [phone] [place] (15 min) Moderate 03/01/2018 Patient Education: [...] allergy spray. 12/24/2017 Appointment: Bridget Velazco WPtel: [address] [place] [phone] - Annual Wellness Visit 12/24/2017 Patient Education: Patient Medication Summary Completed 12/24/2017 Appointment: Bridget Velazco WPtel: [address] [place] [address] (15 min) Moderate 11/30/2017 Appointment: Lab Draw [...] not improve. 11/18/2017 Appointment: Bridget Velazco WPtel: [address] [place] [address] (15 min) Moderate 11/18/2017 Patient Education: Patient Medication Summary Completed 11/18/2017 Visit Plan: Sinusitis - Pt has acute infection - pain in face, maxillary region, Pt informed to use decongestant, RX given to patient, sinus rinses also recommended. Call if symptoms do not show improvement. 11/03/2017 Appointment: Bridget Velazco WPtel: [facility] (15 min) Moderate 11/03/2017 Patient Education: [...] not improve. 09/22/2017 Appointment: Bridget Velazco WPtel: [facility] (15 min) Moderate 09/22/2017 Patient Education: Patient Medication Summary Completed 09/22/2017 Visit Plan: Bronchitis - acute case of bronchitis identified. Pt has been given antibiotics, breathing treatments as appropriate, and pt has been instructed to call if symptoms are not improved, or if symptoms acutely worsen. 04/01/2017 Appointment: Elen Cortez WPtel: [phone] [facility] (15 min) Moderate 04/01/2017 Patient Education: [...] allergy spray. 03/25/2017 Appointment: Shiela Srivastava WPtel: [facility]6 [phone] [place] (10 min) Simple 03/25/2017 Appointment: Elen Cortez WPtel: [facility] [place] (15 min) Moderate 03/25/2017 Patient Education: [...] surrogate. 12/23/2016 Appointment: Bridget Velazco WPtel: [phone] [facility] - Annual Wellness Visit 12/23/2016 Patient Education: Patient Medication Summary Completed 12/23/2016 Visit Plan: Vertigo-discussed PT for vestibular exercises- patient wants to wait since symptoms are improving-continue anti histamine as directed-meclizine as needed 12/22/2016 Appointment: Shiela Srivastava WPtel: [phone] (30 min) Complex 12/22/2016 Patient Education: Patient [...] of control. 12/08/2016 Appointment: Shiela Srivastava WPtel: [phone] [phone] [place] (30 min) Complex 12/08/2016 Patient Education: [...] to medications. 11/30/2016 Appointment: [facility] Cortez [facility]Ptel[phone] [place] (15 min) Moderate 11/30/2016 Patient Education: [...] or concerns. 09/28/2016 Appointment: Bridget Velazco WPtel: [phone] [facility] [place] (30 min) Complex 09/28/2016 Patient Education: Patient [...] concerns. 07/06/2016 Appointment: Bridget Velazco WPtel: [phone] [facility] (15 min) Moderate 07/06/2016 Patient Education: Patient [...] improving 06/01/2016 Appointment: Elen Cortez WPtel: [phone] [facility] (15 min) Moderate 06/01/2016 Patient Education: Patient [...] check labs 02/27/2016 Appointment: Bridget Velazco WPtel: [phone] (30 min) Complex 02/27/2016 Patient Education: Patient Medication Summary Completed 02/27/2016 Patient Education: Patient Medication Summary Completed 09/27/2015 Care Plan: SCREENINGMAMMOGRAPHYDIGITAL LOINC : 97192-2 Pending 09/27/2015 Visit Plan: Hypertension - well [...] colonoscopy 09/10/2015 Appointment: [facility] Cortez [facility]el[phone] (15 min) Moderate 09/10/2015 Patient Education: Patient [...] Dr. Sanchez. 05/14/2015 Appointment: Elen Cortez WPtel: [facility] (15 min) Moderate 05/14/2015 Patient Education: Patient Medication Summary Completed 05/14/2015 Patient Education: Hypertension Completed 05/14/2015 Care Plan: Referral Order SNOMED-CT : [id number] Ordered 05/14/2015 Patient Education: Patient Medication Summary Completed 03/01/2015 Appointment: Nurse Visit 02/28/2015 Patient Education: Patient Medication Summary Completed 02/28/2015 Patient Education: Patient Medication Summary Completed 02/27/2015 Appointment: Nurse Visit 02/26/2015 Patient Education: Patient Medication Summary Completed 02/26/2015 Appointment: Injection 02/25/2015 Patient Education: Patient Medication Summary Completed 02/25/2015 Patient Education: Patient Medication Summary Completed 02/21/2015 Care Plan: URINALYSIS NONAUTO W/O SCOPE LOINC : 54336-3 Ordered 02/21/2015 Visit Plan: Hypertension - well [...] symptoms. 02/11/2015 Appointment: [facility] Cortez [facility]Ptel[phone] New Patient 02/11/2015 Patient Education: Patient Medication Summary Completed 02/11/2015 Patient Education: Hypertension Completed 02/11/2015 Referral: Dr. Ming Kessler WPtel: Referral Appointment Requested Referral: Wan Steven Referral Appointment Requested Instructions Comment . Hypertension - The patient has been [...] clinic with any questions or concerns. . Fatigue, Malaise - will check labs [...] assure normal liver response to medications. . Bronchitis - acute case of bronchitis [...] her preferred provider for the colonoscopy . Medicare Exam - today we discussed [...] be started, call if not improving . Hypertension - well controlled - continue [...] following orthopedic surgeon - Dr. Sanchez. . Sinusitis - Pt has acute infection [...] if the hearing does not improve. . UTI - pt with positive urinalysis - culture sent if appropriate. Antibiotic electronically prescribed to pt's pharmacy of choice. Pt to call if symptoms do not improve. . UTI - pt with positive urinalysis - culture sent if appropriate. Antibiotic electronically prescribed to pt's pharmacy of choice. Pt to call if symptoms do not improve. . BPPV - Benign Paroxysmal Positional Vertigo [...] shot given today. Headache - toradol today. take an extra metoprolol if your blood [...] ongoing - will refer to Dr. Saini. . Sinusitis - Pt has acute infection [...]
--- OUTSIDE RECORDS SUMMARY | 2018-06-01 12:24 | XMS REPORT | CCD ---
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 Name Role Phone PP Unavailable CCM Unavailable Summary Purpose Interface Exchange Insurance Providers Payer name Policy type / Coverage type Covered libertarian ID Effective Begin Date Effective End Date WPS Medicare Part B Medicare Part B [id number] Unknown Czech Intermediate Life Insurance Medicare Part B [id number] Unknown Family history Mother Diagnosis Age At [...] spouses - 02/11/[address]: 862628337 Never smoker 02/11/2015 Alcohol history Unknown occasionally drinks alcohol 02/11/2015 Allergies, Adverse Reactions, Alerts Substance Reaction Codes Entered Date Inactivated Date Status CODEINE RxNorm: 2670 02/11/2015 No Inactive Date Active allergy Unknown 12/23/2016 No Inactive Date Active ciprofloxacin rash, RxNorm: 36423 02/26/2015 No Inactive Date Active hydrocodone Unknown [...] 50 mg tablet,extended release 24 hr RxNorm: 938405 1 Tablet(s) daily may take 1 extra tab daily if systolic bp elevated 05/03/2018 11/28/2018 Active metoprolol succinate ER 50 mg tablet,extended release 24 hr RxNorm: 976594 Tablet (s) Tablet(s) TAKE 1 TABLET BY MOUTH DAILY 05/03/2018 05/02/2018 Inactive lisinopril 20 mg tablet RxNorm: 445131 TAKE 1 TABLET BY MOUTH TWICE DAILY 04/22/2018 09/18/2018 Active Generic For:*PRINIVIL 20 MG TABLET 04/22/2018 9:57:59 AM Singulair 10 mg tablet RxNorm: 916098 1 Tablet(s) PO QHS 201805/21/2018 Active levocetirizine 5 mg tablet RxNorm: 764123 1 Tablet(s) PO daily 04/22/2018 05/21/2018 Active levocetirizine 5 mg tablet RxNorm: 909498 1 Tablet(s) PO daily 04/22/2018 04/21/2018 Inactive Singulair 10 mg tablet RxNorm: 623824 1 Tablet(s) PO QHS 201804/21/2018 Inactive ceftriaxone 500 mg solution for injection RxNorm: 0020968 Inj 04/08/2018 04/08/2018 Inactive ceftriaxone 500 mg solution for injection RxNorm: 3164325 Inj 04/07/2018 04/07/2018 Inactive ceftriaxone 500 mg solution for injection RxNorm: 7698933 Inj 04/06/2018 04/06/2018 Inactive ketorolac 60 mg/2 mL intramuscular solution RxNorm: 7443182 Milliliter(s) IM 04/05/2018 04/05/2018 Inactive ceftriaxone 500 mg solution for injection RxNorm: 1987956 Inj 04/05/2018 04/05/2018 Inactive ondansetron 4 mg disintegrating tablet RxNorm: 977504 1 Tablet(s) PO TID as needed nausea 04/04/2018 No Stop Date Active ketorolac 30 mg/mL injection solution RxNorm: 155239 2 Milliliter(s) Inj 04/04/2018 04/04/2018 Inactive ceftriaxone 500 mg solution for injection RxNorm: 0261029 Inj 04/04/2018 04/04/2018 Inactive nystatin 100,000 unit/mL oral suspension RxNorm: 058004 4 Milliliter(s) PO QID 04/01/2018 04/05/2018 Inactive doxycycline hyclate 100 mg tablet RxNorm: 5168305 1 Tablet(s) PO BID 04/01/2018 04/10/2018 Inactive prednisone 10 mg tablet RxNorm: 685377 1 Tablet(s) PO UD 6 pills on day 1 and 2 and then decrease by one pill every other day until prescription is done 03/24/2018 No Stop Date Active amoxicillin 500 mg capsule RxNorm: 113348 1 Capsule(s) PO TID 03/24/2018 04/02/2018 Inactive metoprolol succinate ER 50 mg tablet,extended release 24 hr RxNorm: 572922 Tablet (s) TAKE 1 TABLET BY MOUTH DAILY 03/21/2018 05/02/2018 Inactive PLEASE SEND REFILL REQUESTS ELECTRONICALLY!! Synthroid 88 mcg tablet RxNorm: 310430 TAKE 1 TABLET BY MOUTH DAILY 03/08/2018 08/04/2018 Active 03/07/2018 11:21:21 AM pravastatin 80 mg tablet RxNorm: 281781 Tablet(s) 1 Tablet(s) PO daily 03/01/2018 02/23/2019 Active Kenalog 40 mg/mL suspension for injection RxNorm: 4904701 Milliliter(s) Inj 12/24/2017 12/24/2017 Inactive cetirizine 10 mg tablet RxNorm: 2065497 TAKE 1 TABLET BY MOUTH DAILY 12/21/2017 04/19/2018 Inactive Generic For:*ZYRTEC 10 MG TABLET 12/21/2017 10:08:05 AM Synthroid 88 mcg tablet RxNorm: 855667 TAKE 1 TABLET BY MOUTH DAILY 12/07/2017 03/06/2018 Inactive 12/06/2017 11:46:49 AM Lipitor 80 mg tablet RxNorm: 894020 1 Tablet(s) PO daily 201702/28/2018 Inactive pravastatin 80 mg tablet RxNorm: 800518 1 Tablet(s) PO daily 11/29/2017 Inactive Lipitor 80 mg tablet RxNorm: 691110 1 Tablet(s) PO daily 201711/28/2017 Inactive lisinopril 20 mg tablet RxNorm: 115245 TAKE 1 TABLET BY MOUTH TWICE DAILY 11/23/2017 04/21/2018 Inactive Generic For:*PRINIVIL 20 MG TABLET 11/23/2017 11:29 :44 AM Macrobid 100 mg capsule RxNorm: 849114 1 Capsule(s) PO BID 06/201711/25/2017 Inactive Macrobid 100 mg capsule RxNorm: 615945 1 Capsule(s) PO BID 06/201711/18/2017 Inactive Lomotil 2.5 mg-0.025 mg tablet RxNorm: 1618723 1 -2 Tablet(s) PO TID as needed 11/19/2017 11/25/2017 Inactive Lomotil 2.5 mg-0.025 mg tablet RxNorm: 3814883 1 -2 Tablet(s) PO TID as needed 11/19/2017 11/18/2017 Inactive Pyridium 200 mg tablet RxNorm: 5414269 1 Tablet(s) PO TID as needed 11/18/2017 11/22/2017 Inactive Augmentin 500 mg-125 mg tablet RxNorm: 475744 1 Tablet(s) PO TID 11/18/2017 11/27/2017 Inactive Keflex 500 mg capsule RxNorm: 385252 1 Capsule(s) PO TID 201711/09/2017 Inactive Denavir 1 % topical cream RxNorm: 889990 1 TOP TID as needed cold sores 11/01/2017 01/29/2018 Inactive Denavir 1 % topical cream RxNorm: 525584 1 TOP TID as needed cold sores 11/01/2017 10/31/2017 Inactive Synthroid 88 mcg tablet RxNorm: 891835 TAKE 1 TABLET BY MOUTH DAILY 09/29/2017 11/27/2017 Inactive 09/29/2017 12:58:07 PM pravastatin 80 mg tablet RxNorm: 924960 1 Tablet(s) PO daily 08/30/2017 Inactive pravastatin 80 mg tablet RxNorm: 984058 1 Tablet(s) PO daily 11/28/2017 Inactive Synthroid 88 mcg tablet RxNorm: 354403 TAKE 1 TABLET BY MOUTH DAILY 08/30/2017 09/28/2017 Inactive 08/30/2017 10:53:26 AM metoprolol succinate ER 50 mg tablet,extended release 24 hr RxNorm: 718572 Tablet (s) TAKE 1 TABLET BY MOUTH DAILY 08/17/2017 03/14/2018 Inactive PLEASE SEND REFILL REQUESTS ELECTRONICALLY!! lisinopril 20 mg tablet RxNorm: 013254 TAKE 1 TABLET BY MOUTH TWICE DAILY 06/18/2017 11/14/2017 Inactive Generic For:*PRINIVIL 20 MG TABLET 06/18/2017 1:31: 00 PM Synthroid 88 mcg tablet RxNorm: 750213 TAKE 1 TABLET BY MOUTH DAILY 05/24/2017 08/21/2017 Inactive 05/24/2017 2:13:21 PM cetirizine 10 mg tablet RxNorm: 0889932 1 Tablet(s) PO daily 12/12/2017 Inactive Zithromax Z-Russell 250 mg capsule RxNorm: 886518 1 Capsule(s) PO 04/02/2017 04/05/2017 Inactive Zithromax Z-Russell 250 mg tablet RxNorm: 547596 1 Tablet(s) PO 04/01/2017 Inactive Zithromax Z-Russell 250 mg capsule RxNorm: 607984 1 Capsule(s) PO 04/02/2017 04/01/2017 Inactive Zithromax Z-Russell 250 mg tablet RxNorm: 126894 1 Tablet(s) PO 04/06/2017 Inactive Ventolin HFA 90 mcg/actuation aerosol inhaler RxNorm: 892106 2 INH QID as needed - for the first 3 days inhale at least two puffs three times daily, then use as needed for shortness of breath 04/01/2017 04/30/2017 Inactive Keflex 500 mg capsule RxNorm: 877861 1 Capsule(s) PO TID 201604/01/2017 Inactive meclizine 25 mg tablet RxNorm: 622384 1 Tablet(s) PO Q6 PRN 1 Tablet(s) PO Q6 PRN 03/25/2017 No Stop Date Active dizziness meclizine 25 mg tablet RxNorm: 143965 Tablet(s) 1 Tablet(s) PO Q6 PRN 03/25/2017 03/24/2017 Inactive dizziness Kenalog 40 mg/mL suspension for injection RxNorm: 4072662 1 Milliliter(s) Inj 03/25/2017 03/25/2017 Inactive meclizine 25 mg tablet RxNorm: 622713 1 Tablet(s) PO Q6 PRN 03/24/2017 Inactive dizziness lisinopril 20 mg tablet RxNorm: 853063 1 Tablet(s) PO BID 01/1506/13/2017 Inactive metoprolol succinate ER 50 mg tablet,extended release 24 hr RxNorm: 494528 TAKE 1 TABLET BY MOUTH DAILY 01/07/20172017 Inactive Generic For:TOPROL XL 50MG TAB 01/07/2017 12:38:23 PM Synthroid 88 mcg tablet RxNorm: 329642 TAKE 1 TABLET BY MOUTH DAILY 12/25/2016 05/23/2017 Inactive 12/25/2016 9:47:08 AM Zithromax Z-Russell 250 mg tablet RxNorm: 368321 Tablet(s) PO UD 03/24/2017 Inactive meclizine 25 mg tablet RxNorm: 506874 1 Tablet(s) PO Q6 PRN 12/20/2016 Inactive dizziness Kenalog 40 mg/mL suspension for injection RxNorm: 5450280 Milliliter(s) Inj 12/08/2016 12/08/2016 Inactive meloxicam 15 mg tablet RxNorm: 473474 1 Tablet(s) PO daily 12/20/2016 Inactive cetirizine 10 mg tablet RxNorm: 2443813 1 Tablet(s) PO daily 05/16/2017 Inactive pravastatin 40 mg tablet RxNorm: 864864 1 Tablet(s) PO BID 07/201608/30/2017 Inactive Cancel 80 mg tab lisinopril 20 mg tablet RxNorm: 311804 1 Tablet(s) PO BID 08/1212/22/2016 Inactive Synthroid 88 mcg tablet RxNorm: 376413 1 Tablet(s) PO TAKE ONE (1) TABLET BY MOUTH DAILY 07/28/2016 12/24/2016 Inactive decrease dose hydralazine 25 mg tablet RxNorm: 038569 1 Tablet(s) PO TID as needed for Systolic blood pressure over 170 07/06/20162016 Inactive lisinopril 20 mg tablet RxNorm: 409813 1 Tablet(s) PO BID to replace your other lisinopril dose 07/06/2016 08/04/2016 Inactive lisinopril 10 mg tablet RxNorm: 162580 TAKE ONE TABLET BY MOUTH TWICE DAILY 06/10/2016 08/11/2016 Inactive Generic For:ZESTRIL 10 MG TABLET 06/09/2016 12:58: 50 PM triamcinolone acetonide 0.1 % topical cream RxNorm: 6089818 1 Application TOP TID as needed 06/01/2016 No Stop Date Active nystatin 100,000 unit/gram topical cream RxNorm: 703107 1 Gram(s) TOP TID as needed 06/01/2016 No Stop Date Active metoprolol succinate ER 50 mg tablet,extended release 24 hr RxNorm: 702639 1 Tablet(s) PO daily 05/26/2016 12/21/2016 Inactive cetirizine 10 mg tablet RxNorm: 6155911 1 Tablet(s) PO daily 10/18/2016 Inactive Synthroid 88 mcg tablet RxNorm: 711483 1 Tablet(s) PO TAKE ONE (1) TABLET BY MOUTH DAILY 03/06/2016 03/07/2018 Inactive Brand name only! Synthroid 88 mcg tablet RxNorm: 810468 1 Tablet(s) PO TAKE ONE (1) TABLET BY MOUTH DAILY 03/04/2016 03/05/2016 Inactive decrease dose cetirizine 10 mg tablet RxNorm: 1047051 1 Tablet(s) PO daily 03/22/2016 Inactive amoxicillin 500 mg capsule RxNorm: 387458 1 Capsule(s) PO TID 02/27/2016 03/04/2016 Inactive lisinopril 10 mg tablet RxNorm: 503430 TAKE ONE TABLET BY MOUTH TWICE DAILY 02/06/2016 06/04/2016 Inactive Generic For:ZESTRIL 10 MG TABLET 02/06/2016 12:16: 38 PM Synthroid 100 mcg tablet RxNorm: 181127 TAKE ONE (1) TABLET BY MOUTH DAILY 01/03/2016 03/03/2016 Inactive 01/03/2016 10:35:14 AM N O T I C E Last quantity doesn't match original quantity lisinopril 10 mg tablet RxNorm: 176178 1 Tablet(s) PO BID 10/0301/31/2016 Inactive Synthroid 100 mcg tablet RxNorm: 153407 1 Tablet(s) PO daily 01/02/2016 Inactive metoprolol succinate ER 50 mg tablet,extended release 24 hr RxNorm: 131941 1 Tablet(s) PO daily 10/04/2015 04/30/2016 Inactive Tylenol Arthritis 650 mg tablet,extended release RxNorm: 3596701 2 Tablet(s) PO TID 09/10/2015 No Stop Date Active metoprolol succinate ER 50 mg tablet,extended release 24 hr RxNorm: 886419 1 Tablet(s) PO daily 09/05/2015 10/03/2015 Inactive pravastatin 80 mg tablet RxNorm: 848505 1 Tablet(s) PO QHS 08/30/2015 Inactive pravastatin 40 mg tablet RxNorm: 879274 1 Tablet(s) PO BID 08/29/2015 Inactive Cancel 80 mg tab pravastatin 40 mg tablet RxNorm: 173280 1 Tablet(s) PO BID 08/19/2016 Inactive Cancel 80 mg tab lisinopril 10 mg tablet RxNorm: 075274 1 Tablet(s) PO BID 06/1308/11/2016 Inactive lisinopril 10 mg tablet RxNorm: 243605 1 Tablet(s) PO BID 06/1310/03/2015 Inactive Synthroid 100 mcg tablet RxNorm: 797462 1 Tablet(s) PO daily 10/03/2015 Inactive ceftriaxone 1 gram solution for injection RxNorm: 1988009 Inj 03/01/2015 03/01/2015 Inactive ceftriaxone 1 gram solution for injection RxNorm: 9768460 Inj 02/28/2015 02/28/2015 Inactive ceftriaxone 1 gram solution for injection RxNorm: 1458789 Inj 02/27/2015 02/27/2015 Inactive ceftriaxone 1 gram solution for injection RxNorm: 5850037 Inj 02/26/2015 02/26/2015 Inactive ceftriaxone 1 gram solution for injection RxNorm: 2945661 Inj 02/25/2015 02/25/2015 Inactive phenazopyridine 200 mg tablet RxNorm: 7027707 1 Tablet(s) PO Q8 02/21/2015 02/20/2015 Inactive Cipro 500 mg tablet RxNorm: 734532 1 Tablet(s) PO BID 201402/20/2015 Inactive phenazopyridine 200 mg tablet RxNorm: 2571786 1 Tablet(s) PO Q8 02/21/2015 02/25/2015 Inactive Cipro 500 mg tablet RxNorm: 075508 1 Tablet(s) PO BID 201402/27/2015 Inactive lisinopril 10 mg tablet RxNorm: 790933 1 Tablet(s) PO BID 02/1406/12/2015 Inactive metoprolol succinate ER 50 mg tablet,extended release 24 hr RxNorm: 515133 3/4 Tablet(s) PO daily 02/11/2015 09/04/2015 Inactive Voltaren 1 % topical gel RxNorm: 150916 2 Gram(s) TOP QID use this on affected joints up to four times daily. 02/11/2015 03/12/2015 Inactive Probiotic oral RxNorm : 6205 oral No Start Date Active aspirin 81 mg tablet RxNorm: 802950 1 Tablet(s) PO daily No Start Date Active Super B-Complex tablet RxNorm: 1 Tablet(s) PO No Start Date Active Flonase Allergy Relief 50 mcg/actuation nasal spray, suspension RxNorm: 4154148 1 [place] NASAL BID No Start Date Active Super-D3+ oral RxNorm : oral No Start Date Active Prilosec OTC 20 mg tablet,delayed release RxNorm: 312239 2 Tablet(s) PO QAM No Start Date Active Flonase Allergy Relief 50 mcg/actuation nasal spray, suspension RxNorm: 8719019 1 [place] NASAL as needed No Start Date Active Move Free Ultra 40 mg-10 mg-3.3 mg tablet RxNorm: 1 Tablet(s) PO daily No Start Date Active metoprolol tartrate 50 mg tablet RxNorm: 998702 1 Tablet(s) PO daily No Start Date 02/10/2015 Inactive lisinopril 10 mg tablet RxNorm: 900149 1 Tablet(s) PO BID No Start Date 02/13/2015 Inactive pravastatin 80 mg tablet RxNorm: 695462 1 Tablet(s) PO daily No Start Date 08/29/2015 Inactive Synthroid 100 mcg tablet RxNorm: 876428 1 Tablet(s) PO daily No Start Date 06/09/2015 Inactive lisinopril 40 mg tablet RxNorm: 722549 1 Tablet(s) PO BID No Start Date 02/28/2018 Inactive Tylenol Arthritis 650 mg tablet,extended release RxNorm: 4956505 4 Tablet(s) PO daily No Start Date 09/09/2015 Inactive Medication Administered Medication Codes Instructions Start Date Status ceftriaxone 500 mg solution for injection RxNorm: 1934321 04/08/2018 No longer Active ceftriaxone 500 mg solution for injection RxNorm: 1863351 04/07/2018 No longer Active ceftriaxone 500 mg solution for injection RxNorm: 1673958 04/06/2018 No longer Active ceftriaxone 500 mg solution for injection RxNorm: 4287346 04/05/2018 No longer Active ketorolac 60 mg/2 mL intramuscular solution RxNorm: 1657494 Milliliter 04/05/2018 No longer Active ceftriaxone 500 mg solution for injection RxNorm: 6121449 04/04/2018 No longer Active ketorolac 30 mg/mL injection solution RxNorm: 437786 2Milliliter 04/04/2018 No longer Active Kenalog 40 mg/mL suspension for injection RxNorm: 7170965 Milliliter 12/24/2017 No longer Active Kenalog 40 mg/mL suspension for injection RxNorm: 1732419 1Milliliter 03/25/2017 No longer Active Kenalog 40 mg/mL suspension for injection RxNorm: 6046255 Milliliter 12/08/2016 No longer Active ceftriaxone 1 gram solution for injection RxNorm: 4545539 03/01/2015 No longer Active ceftriaxone 1 gram solution for injection RxNorm: 5717556 02/28/2015 No longer Active ceftriaxone 1 gram solution for injection RxNorm: 7023653 02/27/2015 No longer Active ceftriaxone 1 gram solution for injection RxNorm: 6753338 02/26/2015 No longer Active ceftriaxone 1 gram solution for injection RxNorm: 0456614 02/25/2015 No longer Active Immunizations Vaccine Codes Date Status Influenza CVX: 141 01/18/2018 completed Influenza CVX: 141 03/15/2017 completed Influenza CVX: 141 03/18/2016 completed Influenza CVX: 141 02/11/2015 completed Assessments Condition Codes Effective Dates Low back pain ICD-10: M54.5 ICD-9: 724.2 04/21/2018 Other malaise ICD-10: R53.81 ICD-9: 780.79 04/21/2018 Essential (primary) hypertension ICD-10: I10 ICD-9: 401.1 04/21/2018 Other fatigue ICD-10: R53.83 ICD-9: 780.79 04/21/2018 Otalgia, right ear ICD-10: [...] Reason For Visit Effective Dates Notes fatigue 04/21/2018 fatigue 04/13/2018 fatigue 04/04/2018 urinary [...] Item Item Code Result Date Free T4 Rbe439 FREE T4 1.07 ng/dL 04/04/2018 Tsh Ord6 TSH (3rd IS) 1.93 uIU/mL 04/04/2018 Urine Culture Ucult Preliminary NO Growth Day 1 03/28/2018 Urine Culture Ucult Complete NO Growth Day 2 03/28/2018 Urine Culture Ucult Complete >100,000 col/ml aerobic growth sent to ref lab 11/19/2017 B12 Njd880 B12 712.00 pg/ml 09/28/2017 C-Reactive Protein Qnt Crqnt CRP 0.1 mg/dl 09/23/2017 Comp Metabolic Pkv345 NA 139 mEq/L 09/23/2017 Comp Metabolic Mxn652 K 4.8 mEq/L 09/23/2017 Comp Metabolic Izi359 CL 104 mEq/L 09/23/2017 Comp Metabolic Tyl727 CO2 28.0 mEq/L 09/23/2017 Comp Metabolic Xkb058 ANION GAP 12 09/23/2017 Comp Metabolic Sgk474 GLUCOSE 92 mg/dL 09/23/2017 Comp Metabolic Ucf361 Creat 0.7 mg/dL 09/23/2017 Comp Metabolic Vtj883 eGFR 91 ml/min/1.73m2 09/23/2017 Comp Metabolic Krb398 BUN 11 mg/dL 09/23/2017 Comp Metabolic Nor115 B/C Ratio 16.4 Ratio 09/23/2017 Comp Metabolic Qcq838 CALCIUM 9.0 mg/dL 09/23/2017 Comp Metabolic Pry860 ALK PHOS 76 U/L 09/23/2017 Comp Metabolic Kup230 AST(SGOT) 24 U/L 09/23/2017 Comp Metabolic Bub177 ALT(SGPT) 21 U/L 09/23/2017 Comp Metabolic Ffi239 BILI T 0.3 mg/dL 09/23/2017 Comp Metabolic Hhu293 ALBUMIN 4.1 g/dL 09/23/2017 Comp Metabolic Byo415 TPRO 6.2 g/dL 09/23/2017 Comp Metabolic Til568 GLOB 2.1 g/dL 09/23/2017 Comp Metabolic Wht519 A/G Ratio 1.9 Ratio 09/23/2017 Comp Metabolic Shy145 Osmo 277 mOsmo 09/23/2017 Sed Rate Ord21 ESR 3 mm/hr 09/22/2017 Vitamin D 25 Oh Zye3524 VITAMIN D, 25 HYDROXY 78.79 ng/mL Tsh [...] 97.1 fl 09/22/2017 Cbc With Differential Ord2 [place]% 10.5 % 09/22/2017 Cbc With Differential Ord2 [...] 2.37 K/ul 09/22/2017 Cbc With Differential Ord2 [place] ABS# 0.9 K/ul 09/22/2017 Cbc With Differential Ord2 Eos ABS# 0.2 K/ul 09/22/2017 Cbc With Differential Ord2 Baso ABS# 0.0 K/ul 09/22/2017 Free T4 Uej536 FREE T4 0.99 ng/dL 09/22/2017 %Hba1C Qgy408 % HbA1c 40638-1 6.0 % 12/10/2016 %Hba1C Juy708 Gluc Ave 126 mg/dL 12/10/2016 Tsh Ord6 hTSH II 0.89 uIU/mL 12/09/2016 Free T4 Gvr553 FREE T4 0.99 ng/dL 12/09/2016 Comp Metabolic Pjv911 NA 138 mEq/L 12/09/2016 Comp Metabolic Anz998 K 5.2 mEq/L 12/09/2016 Comp Metabolic Qaq210 CL 104 mEq/L 12/09/2016 Comp Metabolic Ral027 CO2 29.0 mEq/L 12/09/2016 Comp Metabolic Lfs308 ANION GAP 10 12/09/2016 Comp Metabolic Ekw204 GLUCOSE 135 mg/dL 12/09/2016 Comp Metabolic Non068 Creat 0.8 mg/dL 12/09/2016 Comp Metabolic Dpc913 eGFR 79 ml/min/1.73m2 12/09/2016 Comp Metabolic Wjk606 BUN 18 mg/dL 12/09/2016 Comp Metabolic Riz342 B/C Ratio 23.7 Ratio 12/09/2016 Comp Metabolic Pvt601 CALCIUM 9.5 mg/dL 12/09/2016 Comp Metabolic Foe284 ALK PHOS 73 U/L 12/09/2016 Comp Metabolic Mlp675 AST(SGOT) 24 U/L 12/09/2016 Comp Metabolic Ptr778 ALT(SGPT) 20 U/L 12/09/2016 Comp Metabolic Ggv078 BILI T 0.3 mg/dL 12/09/2016 Comp Metabolic Hak891 ALBUMIN 4.3 g/dL 12/09/2016 Comp Metabolic Cil313 TPRO 6.4 g/dL 12/09/2016 Comp Metabolic Cwe016 GLOB 2.1 g/dL 12/09/2016 Comp Metabolic Tzx868 A/G Ratio 2.0 Ratio 12/09/2016 Comp Metabolic Ics554 Osmo 280 mOsmo 12/09/2016 Cbc With Differential [...] 31.3 pg 12/09/2016 Cbc With Differential Ord2 [place]% 6.5 % 12/09/2016 Cbc With Differential Ord2 [...] 1.84 K/ul 12/09/2016 Cbc With Differential Ord2 [place] ABS# 0.6 K/ul 12/09/2016 Cbc With Differential Ord2 Eos ABS# 0.1 K/ul 12/09/2016 Cbc With Differential Ord2 Baso ABS# 0.1 K/ul 12/09/2016 Tsh Ord6 hTSH II 1.19 uIU/mL 09/02/2016 Free T4 Eyl569 FREE T4 0.97 ng/dL 09/02/2016 Comp Metabolic Lma290 NA 137 mEq/L 06/01/2016 Comp Metabolic Mbm366 K 4.1 mEq/L 06/01/2016 Comp Metabolic Adu349 CL 104 mEq/L 06/01/2016 Comp Metabolic Vnn041 CO2 25.0 mEq/L 06/01/2016 Comp Metabolic Wpm619 ANION GAP 12 06/01/2016 Comp Metabolic Fez724 GLUCOSE 108 mg/dL 06/01/2016 Comp Metabolic Kql680 Creat 0.8 mg/dL 06/01/2016 Comp Metabolic Tdv925 eGFR 80 ml/min/1.73m2 06/01/2016 Comp Metabolic Hrj466 BUN 15 mg/dL 06/01/2016 Comp Metabolic Rvz930 B/C Ratio 20.0 Ratio 06/01/2016 Comp Metabolic Xoy258 CALCIUM 9.1 mg/dL 06/01/2016 Comp Metabolic Bkk000 ALK PHOS 89 U/L 06/01/2016 Comp Metabolic Joy535 AST(SGOT) 25 U/L 06/01/2016 Comp Metabolic Jhr838 ALT(SGPT) 20 U/L 06/01/2016 Comp Metabolic Psl956 BILI T 0.3 mg/dL 06/01/2016 Comp Metabolic Fcx867 ALBUMIN 4.2 g/dL 06/01/2016 Comp Metabolic Igl196 TPRO 6.2 g/dL 06/01/2016 Comp Metabolic Vte850 GLOB 2.0 g/dL 06/01/2016 Comp Metabolic Ely810 A/G Ratio 2.1 Ratio 06/01/2016 Comp Metabolic Jze519 Osmo 275 mOsmo 06/01/2016 Free T4 Zal683 FREE T4 0.94 ng/dL 06/01/2016 Tsh Ord6 [...] 31.1 pg 06/01/2016 Cbc With Differential Ord2 [place]% 8.4 % 06/01/2016 Cbc With Differential Ord2 [...] 2.96 K/ul 06/01/2016 Cbc With Differential Ord2 [place] ABS# 0.6 K/ul 06/01/2016 Cbc With Differential [...] 31.3 pg 02/27/2016 Cbc With Differential Ord2 [place]% 10.0 % 02/27/2016 Cbc With Differential Ord2 [...] 2.28 K/ul 02/27/2016 Cbc With Differential Ord2 [place] ABS# 0.9 K/ul 02/27/2016 Cbc With Differential Ord2 Eos ABS# 0.3 K/ul 02/27/2016 Cbc With Differential Ord2 Baso ABS# 0.1 K/ul 02/27/2016 Tsh Ord6 hTSH II 0.18 uIU/mL 02/27/2016 Free T4 Kxg743 FREE T4 1.17 ng/dL 02/27/2016 Comp Metabolic Mwp661 NA 135 mEq/L 02/27/2016 Comp Metabolic Htj557 K 5.2 mEq/L 02/27/2016 Comp Metabolic Wqc188 CL 102 mEq/L 02/27/2016 Comp Metabolic Adx953 CO2 27.0 mEq/L 02/27/2016 Comp Metabolic Hej426 ANION GAP 11 02/27/2016 Comp Metabolic Nmp550 GLUCOSE 93 mg/dL 02/27/2016 Comp Metabolic Kmd071 Creat 0.7 mg/dL 02/27/2016 Comp Metabolic Lvp731 eGFR 91 ml/min/1.73m2 02/27/2016 Comp Metabolic Wal778 BUN 14 mg/dL 02/27/2016 Comp Metabolic Heg902 B/C Ratio 20.9 Ratio 02/27/2016 Comp Metabolic Ihu927 CALCIUM 9.4 mg/dL 02/27/2016 Comp Metabolic Mva497 ALK PHOS 100 U/L 02/27/2016 Comp Metabolic Ifl974 AST(SGOT) 23 U/L 02/27/2016 Comp Metabolic Wdx833 ALT(SGPT) 24 U/L 02/27/2016 Comp Metabolic Qfu252 BILI T 0.2 mg/dL 02/27/2016 Comp Metabolic Yty498 ALBUMIN 4.3 g/dL 02/27/2016 Comp Metabolic Poz971 TPRO 6.3 g/dL 02/27/2016 Comp Metabolic Opk963 GLOB 2.1 g/dL 02/27/2016 Comp Metabolic Nrj854 A/G Ratio 2.1 Ratio 02/27/2016 Comp Metabolic Pts665 Osmo 270 mOsmo 02/27/2016 Free T4 Yyy174 FREE T4 1.03 ng/dL 05/10/2015 Comp Metabolic Irn622 NA 137 mEq/L 05/10/2015 Comp Metabolic Nkk052 K 4.4 mEq/L 05/10/2015 Comp Metabolic Auk258 CL 102 mEq/L 05/10/2015 Comp Metabolic Czw221 CO2 28.0 mEq/L 05/10/2015 Comp Metabolic Uwz303 ANION GAP 11 05/10/2015 Comp Metabolic Mxl270 GLUCOSE 108 mg/dL 05/10/2015 Comp Metabolic Owi574 Creat 0.7 mg/dL 05/10/2015 Comp Metabolic Edj935 eGFR 86 ml/min/1.73m2 05/10/2015 Comp Metabolic Ife055 BUN 13 mg/dL 05/10/2015 Comp Metabolic Cay477 B/C Ratio 18.3 Ratio 05/10/2015 Comp Metabolic Gqu508 CALCIUM 9.4 mg/dL 05/10/2015 Comp Metabolic Rqb778 ALK PHOS 94 U/L 05/10/2015 Comp Metabolic Dml503 AST(SGOT) 22 U/L 05/10/2015 Comp Metabolic Zyu030 ALT(SGPT) 21 U/L 05/10/2015 Comp Metabolic Qrp643 BILI T 0.3 mg/dL 05/10/2015 Comp Metabolic Htw827 ALBUMIN 3.9 g/dL 05/10/2015 Comp Metabolic Gbi054 TPRO 6.1 g/dL 05/10/2015 Comp Metabolic Hxv002 GLOB 2.2 g/dL 05/10/2015 Comp Metabolic Zgq292 A/G Ratio 1.7 Ratio 05/10/2015 Comp Metabolic Tfx084 Osmo 274 mOsmo 05/10/2015 Tsh Ord6 hTSH [...] 29.4 pg 05/10/2015 Cbc With Differential Ord2 [place]% 9.0 % 05/10/2015 Cbc With Differential Ord2 [...] 2.14 K/ul 05/10/2015 Cbc With Differential Ord2 [place] ABS# 0.5 K/ul 05/10/2015 Cbc With Differential [...] Ord30 C/HDL 3.8 Ratio 05/10/2015 Culture Urine [id number] URINE CULTURE SEE NOTES 02/25/2015 Culture Urine [id number] Continued Results 02/25/2015 Urine Culture Ucult Complete >100,000 col/ml aerobic growth sent to ref lab 02/22/2015 Free T4 Fat328 FREE T4 1.16 ng/dL 02/11/2015 Tsh Ord6 [...] General 1994 Ears/Nose/Throat lips/teeth/gingiva Overall: benign lips 04/21/2018 None Full Exam - General 1995 Ears/Nose/Throat oral cavity/pharynx/larynx Overall: oral mucosa clear 04/21/2018 None Full Exam - General 1994 Ears/Nose/Throat otoscopic exam Tympanic membrane: air- fluid level 04/21/2018 None Full Exam - General 1994 [...] lesions 03/24/2018 None Full Exam - General 1995 Lymphatic neck nodes Overall: anterior cervical chain [...] time 03/01/2018 None Full Exam - General 1995 Constitutional general appearance Overall: well developed 12/24/2017 None Full Exam - General 1995 Constitutional general appearance Overall: in no acute distress 12/24/2017 None Full Exam - General 1995 Constitutional general appearance Overall: well nourished 12/24/2017 None Full Exam - General 1994 Eyes conjunctiva /eyelids Overall: conjunctiva clear 12/24/2017 None Full Exam - General 1995 Eyes conjunctiva /eyelids Overall: eyelids normal 12/24/2017 [...] clear 12/24/2017 None Full Exam - General 1995 [...] accomodation 07/06/2016 None Full Exam - General 1995 Ears/Nose/Throat [...] Procedure Codes Date THER/PROPH/DIAG INJ SC/IM CPT-4: 26747 04/08/2018 ROCEPHIN, PER 250 MG CPT-4: J0696 04/08/2018 THER/PROPH/DIAG INJ SC/IM CPT-4: 26679 04/07/2018 ROCEPHIN, PER 250 MG CPT-4: J0696 04/07/2018 THER/PROPH/DIAG INJ SC/IM CPT-4: 77816 04/06/2018 ROCEPHIN, PER 250 MG CPT-4: J0696 04/06/2018 THER/PROPH/DIAG INJ SC/IM CPT-4: 51064 04/05/2018 ROCEPHIN, PER 250 MG CPT-4: J0696 04/05/2018 KETOROLAC TROMETHAMINE INJ CPT-4: J1885 04/05/2018 THER/PROPH/DIAG INJ SC/IM CPT-4: 13170 04/04/2018 ROCEPHIN, PER 250 MG CPT-4: J0696 04/04/2018 KETOROLAC TROMETHAMINE INJ CPT-4: J1885 04/04/2018 URINALYSIS NONAUTO W/O SCOPE CPT-4: 32570 03/24/2018 PPPS, SUBSEQ VISIT CPT -4: G0439 12/24/2017 THER/PROPH/DIAG INJ SC/IM CPT-4: 04239 12/24/2017 TRIAMCINOLONE ACET INJ NOS CPT-4: J3301 12/24/2017 THER/PROPH/DIAG INJ SC/IM CPT-4: 14009 11/18/2017 ROCEPHIN, PER 250 MG CPT-4: J0696 11/18/2017 PRESCRIP TRANSMIT VIA ERX SY CPT-4: G8553 04/01/2017 TRIAMCINOLONE ACET INJ NOS CPT-4: J3301 03/25/2017 PPPS, SUBSEQ VISIT CPT -4: G0439 12/23/2016 THER/PROPH/DIAG INJ SC/IM CPT-4: 28563 12/08/2016 TRIAMCINOLONE ACET INJ NOS CPT-4: J3301 12/08/2016 PRESCRIP TRANSMIT VIA ERX SY CPT-4: G8553 12/08/2016 PRESCRIP TRANSMIT VIA ERX SY CPT-4: G8553 11/30/2016 URINALYSIS NONAUTO W/O SCOPE CPT-4: 10475 07/08/2016 PRESCRIP TRANSMIT VIA ERX SY CPT-4: G8553 06/01/2016 PRESCRIP TRANSMIT VIA ERX SY CPT-4: G8553 02/27/2016 THER/PROPH/DIAG INJ SC/IM CPT-4: 05196 03/01/2015 ROCEPHIN, PER 250 MG CPT-4: J0696 03/01/2015 THER/PROPH/DIAG INJ SC/IM CPT-4: 88205 02/28/2015 ROCEPHIN, PER 250 MG CPT-4: J0696 02/28/2015 THER/PROPH/DIAG INJ SC/IM CPT-4: 21031 02/27/2015 ROCEPHIN, PER 250 MG CPT-4: J0696 02/27/2015 THER/PROPH/DIAG INJ SC/IM CPT-4: 31721 02/26/2015 ROCEPHIN, PER 250 MG CPT-4: J0696 02/26/2015 THER/PROPH/DIAG INJ SC/IM CPT-4: 01898 02/25/2015 ROCEPHIN, PER 250 MG CPT-4: J0696 02/25/2015 URINALYSIS NONAUTO W/O SCOPE CPT-4: 16913 02/21/2015 Vital Signs Date Vital 04/21/2018 Blood Pressure 1: 154/70 Code : [...] Code : 8480-6 BMI: 27.8 Code : 84313-9 Heart Rate 1 : 85 bpm Height: 5'3" SpO2: 96% Weight: 157 lbs 03/24/2018 Blood Pressure 1: 128/82 Code : 8480-6 BMI: 27.8 Code : 75947-0 Heart Rate 1 : 84 bpm Height: 5'3" SpO2: 97% Weight: 157 lbs 03/01/2018 Blood Pressure 1: 136/70 Code : 8480-6 BMI: 27.8 Code : 74733-8 Heart Rate 1 : 70 bpm Height: 5'3" SpO2: 96% Weight: 157 lbs 12/24/2017 Height: Weight: 11/18/2017 Blood Pressure 1: 164/74 Code : 8480-6 BMI: 27.6 Code : 34455-4 Heart Rate 1 : 70 bpm Height: 5'3" SpO2: 96% Weight: 156 lbs 11/03/2017 Blood Pressure 1: 118/72 Code : 8480-6 BMI: 27.6 Code : 48317-4 Heart Rate 1 : 82 bpm Height: 5'3" SpO2: 96% Weight: 156 lbs 09/22/2017 Blood Pressure 1: 136/68 Code : 8480-6 BMI: 27.6 Code : 84625-0 Heart Rate 1 : 70 bpm Height: 5'3" SpO2: 97% Weight: 156 lbs 04/01/2017 Blood Pressure 1: 144/82 Code : 8480-6 Heart Rate 1: 68 bpm Height: 5'3" SpO2: 97% Weight: 03/25/2017 Blood Pressure 1: 116/70 Code : 8480-6 BMI: 26.7 Code : 24836-4 Heart Rate 1 : 67 bpm Height: 5'3" SpO2: 98% Weight: 151 lbs 12/23/2016 BMI: 26.7 Code: 14535-8 Height: 5'3" Weight: 151 lbs 12/22/2016 Blood Pressure 1: 142/60 Code : 8480-6 BMI: 26.7 Code : 61973-8 Heart Rate 1 : 67 bpm Height: 5'3" SpO2: 98% Weight: 151 lbs 12/08/2016 Blood Pressure 1: 140/72 Code : 8480-6 Heart Rate 1: 72 bpm Height: 5'3" SpO2: 97% Weight: 11/30/2016 Blood Pressure 1: 128/80 Code : 8480-6 BMI: 26.7 Code : 98861-0 Heart Rate 1 : 63 bpm Height: 5'3" SpO2: 96% Weight: 151 lbs 09/28/2016 Blood Pressure 1: 130/80 Code : 8480-6 BMI: 27.1 Code : 38491-8 Heart Rate 1 : 80 bpm Height: 5'3" SpO2: 97% Weight: 153 lbs 07/06/2016 Blood Pressure 1: 162/72 Code : 8480-6 BMI: 27.6 Code : 07196-7 Heart Rate 1 : 72 bpm Height: 5'3" SpO2: 98% Weight: 156 lbs 06/01/2016 Blood Pressure 1: 122/66 Code : 8480-6 BMI: 27.5 Code : 99910-8 Heart Rate 1 : 73 bpm Height: 5'3" SpO2: 98% Weight: 155 lbs 8 oz 02/27/2016 Blood Pressure 1: 126/68 Code : 8480-6 BMI: 26.9 Code : 08897-1 Heart Rate 1 : 70 bpm Height: 5'3" SpO2: 98% Weight: 152 lbs 09/10/2015 Blood Pressure 1: 130/70 Code : 8480-6 BMI: 26.9 Code : 64491-6 Heart Rate 1 : 72 bpm Height: 5'3" SpO2: 97% Weight: 152 lbs 05/14/2015 Blood Pressure 1: 138/82 Code : 8480-6 BMI: 26.4 Code : 22203-3 Heart Rate 1 : 75 bpm Height: 5'3" SpO2: 98% Weight: 149 lbs 02/11/2015 Blood Pressure 1: 128/72 Code : 8480-6 BMI: 25.5 Code : 74091-0 Heart Rate 1 : 73 bpm Height: 5'3" SpO2: 94% Weight: 144 lbs Functional Status No Functional Status data History of Present Illness Symptom Name Status Result Effective Date Notes Limitation on Activities moderately limits activities 04/21/2018 [...] data Encounters Encounter Performer Location Codes Date 20116 EST. PATIENT, LEVEL IV Diagnosis: Low back pain[ICD10: M54.5] Diagnosis: Essential (primary) hypertension[ICD10: I10] Diagnosis: Other fatigue[ICD10: R53.83] Diagnosis: Other malaise[ICD10: R53.81] Bridget Cortez MD, [facility] CPT-4 : 15223 04/21/2018 [id number] EST. PATIENT, LEVEL III Diagnosis: Other fatigue[ICD10: R53.83] Diagnosis: Otalgia, right ear[ICD10: H92.01] Bridget Cortez MD, [facility] CPT -4: 30154 04/13/2018 ([id number]) 53325 EST. PATIENT, LEVEL III Diagnosis: Essential (primary) hypertension[ICD10: I10] Diagnosis: Dysuria[ICD10: R30.0] Diagnosis: Nausea[ICD10: R11.0] Diagnosis: Headache[ICD10: R51] Elen Cortez MD, [facility] CPT-4: 28508 04/04/2018 15598 EST. PATIENT, LEVEL III Diagnosis: Other acute sinusitis[ICD10: J01.80] Diagnosis: Dizziness and giddiness[ICD10: R42] Diagnosis: Dysuria[ICD10: R30.0] Diagnosis: Candidal stomatitis[ICD10: B37.0] Diagnosis: Essential (primary) hypertension[ICD10: I10] Diagnosis: Other fatigue[ICD10: R53.83] Diagnosis: Other malaise[ICD10: R53.81] Bridget Cortez MD, [facility] CPT-4 : 11261 04/01/2018 ([id number]) 04572 EST. 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 PATIENT, LEVEL IV Diagnosis: Otalgia, right ear[ICD10: H92.01] Diagnosis: Headache[ICD10: R51] Diagnosis: Other fatigue[ICD10: R53.83] Diagnosis: Abnormal findings on diagnostic imaging of other specified body structures[ICD10: R93.89] Elen Cortez MD, [facility] CPT-4: 96644 03/01/2018 86380 EST. PATIENT, LEVEL III Diagnosis: Acute cystitis with hematuria[ICD10: N30.01] Bridget Cortez MD, [facility] CPT-4: 06799 11/18/2017 45028 EST. PATIENT, LEVEL IV Diagnosis: Other acute sinusitis[ICD10: J01.80] Diagnosis: Otalgia, right ear[ICD10: H92.01] Bridget Cortez MD, [facility] CPT -4: 88904 11/03/2017 63115 EST. PATIENT, LEVEL III Diagnosis: Other fatigue[ICD10: R53.83] Diagnosis: Other malaise[ICD10: R53.81] Diagnosis: Pain in left knee[ICD10: M25.562] Diagnosis: Pain in right knee[ICD10: M25.561] Bridget Cortez MD, [facility] CPT-4: 29632 09/22/2017 ([id number]) 14008 EST. PATIENT, LEVEL III Diagnosis: Cough[ICD10: R05] Diagnosis: Acute bronchitis due to other specified organisms[ICD10: J20.8] Elen Cortez MD, [facility] CPT-4: 76547 04/01/2017 ([id number]) 57279 EST. PATIENT, LEVEL III Diagnosis: Otalgia, right ear[ICD10: H92.01] Diagnosis: Other allergic rhinitis[ICD10: J30.89] Shiela Cortez MD, [facility] CPT-4: 99294 03/25/2017 ([id number]) 40131 EST. PATIENT, LEVEL III Diagnosis: Benign paroxysmal vertigo, bilateral[ICD10: H81.13] Shiela Cortez MD, [facility] CPT-4: 40590 12/22/2016 ([id number]) 77911 EST. PATIENT, LEVEL IV Diagnosis: Benign paroxysmal vertigo, bilateral[ICD10: H81.13] Diagnosis: Other allergic rhinitis[ICD10: J30.89] Diagnosis: Hypothyroidism, unspecified[ICD10: E03.9] Shiela Cortez MD, [facility] CPT-4: 64940 12/08/2016 ([id number]) 50438 EST. PATIENT, LEVEL IV Diagnosis: Atrophy of thyroid (acquired)[ICD10: E03.4] Diagnosis: Essential (primary) hypertension[ICD10: I10] Diagnosis: Mixed hyperlipidemia[ICD10: E78.2] Elen Cortez MD, [facility] CPT-4: 81491 11/30/2016 56372 EST. PATIENT, LEVEL IV Diagnosis: Headache[ICD10: R51] Diagnosis: Other fatigue[ICD10: R53.83] Diagnosis: Dizziness and giddiness[ICD10: R42] Bridget Cortez MD, [facility] CPT-4: 05646 09/28/2016 76515 EST. PATIENT, LEVEL IV Diagnosis: Essential (primary) hypertension[ICD10: I10] Diagnosis: Headache[ICD10: R51] Bridget Cortez MD, [facility] CPT-4: 32827 07/06/2016 ([id number]) 25331 EST. PATIENT, LEVEL IV Diagnosis: Essential (primary) hypertension[ICD10: I10] Diagnosis: Atrophy of thyroid (acquired)[ICD10: E03.4] Diagnosis: Mixed hyperlipidemia[ICD10: E78.2] Elen Cortez MD, [facility] CPT-4: 55405 06/01/2016 01418 EST. PATIENT, LEVEL IV Diagnosis: Acute laryngopharyngitis[ICD10: J06.0] Diagnosis: Other allergic rhinitis[ICD10: J30.89] Diagnosis: Other specified hypothyroidism[ICD10: E03.8] Diagnosis: Other fatigue[ICD10: R53.83] Bridget Cortez MD, [facility] CPT-4 : 04474 02/27/2016 ([id number]) 69515 EST. PATIENT, LEVEL III Diagnosis: Essential (primary) hypertension[ICD10: I10] Diagnosis: Mixed hyperlipidemia[ICD10: E78.2] [facility] CPT-4: 17183 09/10/2015 ([id number]) 93570 EST. PATIENT, LEVEL IV Diagnosis: Essential (primary) hypertension[ICD10: I10] Diagnosis: Hypothyroidism, unspecified[ICD10: E03.9] Diagnosis: Unspecified osteoarthritis, unspecified site[ICD10: M19.90] Elen Cortez MD , [facility] CPT-4: 14331 05/14/2015 ([id number]) OFFICE VISIT, NEW - LEVEL 4 Diagnosis: Essential (primary) hypertension[ICD10: I10] Diagnosis: Hypothyroidism, unspecified[ICD10: E03.9] Diagnosis: Unspecified osteoarthritis, unspecified site[ICD10: M19.90] Elen Cortez MD , [facility] CPT-4: 07703 02/11/2015 Plan of Care Planned Activity Notes Codes Status Date Referral: Wan Steven Referral Completed 04/28/2018 Visit [...] or concerns. 04/21/2018 Appointment: Bridget Velazco WPtel: [facility] (15 min) Moderate 04/21/2018 Patient Education: Patient Medication Summary Completed 04/21/2018 Patient Education: Back Pain Completed 04/21/2018 Appointment: Bridget Velazco WPtel: [facility] [place] (15 min) Moderate 04/14/2018 Care [...] Dr. Saini. 04/13/2018 Appointment: Bridget Velazco WPtel: [facility] (30 min) Complex 04/13/2018 Patient Education: Patient Medication Summary Completed 04/13/2018 Appointment: Nurse Visit 04/08/2018 Appointment: Bridget Velazco WPtel: [address] [place], [place] [phone] [place] (15 min) Moderate 04/08/2018 Patient Education: Patient Medication Summary Completed 04/08/2018 Appointment: Injection 04/07/2018 Patient Education: Patient Medication Summary Completed 04/07/2018 Appointment: Injection 04/06/2018 Patient Education: Patient Medication Summary Completed 04/06/2018 Appointment: Injection 04/05/2018 Appointment: Elen Cortez WPtel: [address] [place], [place] [phone] [place] (15 min) Moderate 04/05/2018 Patient Education: Patient [...] toradol today. 04/04/2018 Appointment: Elen Cortez WPtel: [facility] [place] (10 min) Simple 04/04/2018 Patient Education: Patient Medication Summary Completed 04/04/2018 Patient Education: Patient Medication Summary Completed 04/04/2018 Patient Education: Patient Medication Summary Completed 04/04/2018 Care Plan: Referral Order SNOMED-CT : [id number] Pending 04/04/2018 Visit Plan: Dysuria, dizziness, fatigue, [...] show improvement. 04/01/2018 Appointment: Bridget Velazco WPtel: [facility] (15 min) Moderate 04/01/2018 Patient Education: Patient Medication Summary Completed 04/01/2018 Visit Plan: Sinusitis - Pt has acute infection - pain in face, maxillary region, Pt informed to use decongestant, RX given to patient, sinus rinses also recommended. Call if symptoms do not show improvement. Dysuria - rx for antibiotic sent to pharmacy. 03/24/2018 Appointment: Elen Cortez WPtel: [phone] [facility] [place] (15 min) Moderate 03/24/2018 Patient Education: Patient [...] not improve. 03/01/2018 Appointment: [phone] (15 min) Moderate 03/01/2018 Patient Education: Patient [...] allergy spray. 12/24/2017 [facility]ment[phone] [facility] [facility] - Annual Wellness Visit 12/24/2017 Patient Education: Patient Medication Summary Completed 12/24/2017 Appointment: Bridget Velazco WPtel: [facility] (15 min) Moderate 11/30/2017 Appointment: Lab Draw [...] not improve. 11/18/2017 Appointment: Bridget Velazco WPtel: [facility] (15 min) Moderate 11/18/2017 Patient Education: Patient Medication Summary Completed 11/18/2017 Visit Plan: Sinusitis - Pt has acute infection - pain in face, maxillary region, Pt informed to use decongestant, RX given to patient, sinus rinses also recommended. Call if symptoms do not show improvement. 11/03/2017 Appointment: Bridget Velazco WPtel: [facility] (15 min) Moderate 11/03/2017 Patient Education: [...] not improve. 09/22/2017 Appointment: Bridget Velazco WPtel: [facility] (15 min) Moderate 09/22/2017 Patient Education: Patient Medication Summary Completed 09/22/2017 Visit Plan: Bronchitis - acute case of bronchitis identified. Pt has been given antibiotics, breathing treatments as appropriate, and pt has been instructed to call if symptoms are not improved, or if symptoms acutely worsen. 04/01/2017 Appointment: Elen Cortez WPtel: [phone] (15 min) Moderate 04/01/2017 Patient Education: Patient [...] spray. 03/25/2017 Appointment: Shiela Srivastava WPtel: [phone] [place] [phone] (10 min) Simple 03/25/2017 Appointment: lEen Cortez WPtel: [facility] [address] (15 min) Moderate 03/25/2017 Patient Education: Patient [...] surrogate. 12/23/2016 Appointment: Bridget Velazco WPtel: [phone] [facility] [facility] - Annual Wellness Visit 12/23/2016 Patient Education: Patient Medication Summary Completed 12/23/2016 Visit Plan: Vertigo-discussed PT for vestibular exercises- patient wants to wait since symptoms are improving-continue anti histamine as directed-meclizine as needed 12/22/2016 Appointment: Shiela Srivastava WPtel: [address] [place], [place] [phone] [place] [address] (30 min) Complex 12/22/2016 Patient Education: Patient [...] of control. 12/08/2016 Appointment: Shiela Srivastava WPtel: [phone] (30 min) Complex 12/08/2016 Patient Education: [...] to medications. 11/30/2016 Appointment: [facility]el[phone] (15 min) Moderate 11/30/2016 Patient Education: Patient [...] concerns. 09/28/2016 Appointment: [phone] [facility] (30 min) Complex 09/28/2016 Patient Education: [...] concerns. 07/06/2016 Appointment: [phone] [facility] [place] (15 min) Moderate 07/06/2016 Patient Education: Patient [...] not improving 06/01/2016 Appointment: Elen Cortez WPtel: [address] [place] [address] (15 min) Moderate 06/01/2016 Patient Education: Patient [...] check labs 02/27/2016 Appointment: [phone] [facility] (30 min) Complex 02/27/2016 Patient Education: Patient Medication Summary Completed 02/27/2016 Patient Education: Patient Medication Summary Completed 09/27/2015 Care Plan: SCREENINGMAMMOGRAPHYDIGITAL LOINC : 97839-3 Pending 09/27/2015 Visit Plan: Hypertension - well [...] colonoscopy 09/10/2015 Appointment: El[facility] Cortez [facility]el: [phone] (15 min) Moderate 09/10/2015 Patient Education: [...] Sanchez. 05/14/2015 Appointment: El[facility] Cortez [facility]Ptel: [phone] [facility] (15 min) Moderate 05/14/2015 Patient Education: Patient Medication Summary Completed 05/14/2015 Patient Education: Hypertension Completed 05/14/2015 Care Plan: Referral Order SNOMED-CT : [id number] Ordered 05/14/2015 Patient Education: Patient Medication Summary Completed 03/01/2015 Appointment: Nurse Visit 02/28/2015 Patient Education: Patient Medication Summary Completed 02/28/2015 Patient Education: Patient Medication Summary Completed 02/27/2015 Appointment: Nurse Visit 02/26/2015 Patient Education: Patient Medication Summary Completed 02/26/2015 Appointment: Injection 02/25/2015 Patient Education: Patient Medication Summary Completed 02/25/2015 Patient Education: Patient Medication Summary Completed 02/21/2015 Care Plan: URINALYSIS NONAUTO W/O SCOPE LOINC : 64197-1 Ordered 02/21/2015 Visit Plan: Hypertension - well [...] pain symptoms. 02/11/2015 Appointment: Elen Cortez WPtel: [address] [place], [place] [phone] New Patient 02/11/2015 Patient Education: Patient Medication Summary Completed 02/11/2015 Patient Education: Hypertension Completed 02/11/2015 Referral: Dr. Ming Kessler WPtel: Referral Appointment Requested Referral: Wan Steven Referral Appointment Requested Instructions Comment FLONASE TWICE [...] pt is to call for acute concerns. take an extra metoprolol if your blood [...] if symptoms do not show improvement. . Hypertension - well controlled - continue [...] given today. Headache - toradol today. . BPPV - Benign Paroxysmal Positional Vertigo [...] assure normal liver response to medications. . Hypertension - well controlled - continue [...] if the hearing does not improve. . Sinusitis - Pt has acute infection - pain in face, maxillary region, Pt informed to use decongestant, RX given to patient, sinus rinses also recommended. Call if symptoms do not show improvement. Dysuria - rx for antibiotic sent to pharmacy. . 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 . Fatigue, Malaise - will check labs [...] is worsening or does not improve. . Hypertension - well [...]
[2018-06-01] MEDS ORDERED: fentaNYL INJECTION 100 MCG/2 ML AMP ONE (12:27)
--- OUTSIDE RECORDS SUMMARY | 2018-06-01 12:27 | XMS REPORT | CCD ---
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 Name Role Phone PP Unavailable CCM Unavailable Summary Purpose Interface Exchange Insurance Providers Payer name Policy type / Coverage type Covered alliance party ID Effective Begin Date Effective End Date WPS Medicare Part B Medicare Part B [id number] Unknown [facility] Insurance Medicare Part B [id number] Unknown Family history Mother Diagnosis Age At [...] spouses - 02/11/[address]: 872702684 Never smoker 02/11/2015 Alcohol history Unknown occasionally drinks alcohol 02/11/2015 Allergies, Adverse Reactions, Alerts Substance Reaction Codes Entered Date Inactivated Date Status CODEINE RxNorm: 2670 02/11/2015 No Inactive Date Active allergy Unknown 12/23/2016 No Inactive Date Active ciprofloxacin rash, RxNorm: 38401 02/26/2015 No Inactive Date Active hydrocodone Unknown [...] 50 mg tablet,extended release 24 hr RxNorm: 759979 Tablet (s) Tablet(s) TAKE 1 TABLET BY MOUTH DAILY 05/03/2018 11/28/2018 Active lisinopril 20 mg tablet RxNorm: 291208 TAKE 1 TABLET BY MOUTH TWICE DAILY 04/22/2018 09/18/2018 Active Generic For:*PRINIVIL 20 MG TABLET 04/22/2018 9:57:59 AM Singulair 10 mg tablet RxNorm: 191297 1 Tablet(s) PO QHS 201805/21/2018 Active levocetirizine 5 mg tablet RxNorm: 718849 1 Tablet(s) PO daily 04/22/2018 05/21/2018 Active levocetirizine 5 mg tablet RxNorm: 598521 1 Tablet(s) PO daily 04/22/2018 04/21/2018 Inactive Singulair 10 mg tablet RxNorm: 818521 1 Tablet(s) PO QHS 201804/21/2018 Inactive ceftriaxone 500 mg solution for injection RxNorm: 2563249 Inj 04/08/2018 04/08/2018 Inactive ceftriaxone 500 mg solution for injection RxNorm: 2131128 Inj 04/07/2018 04/07/2018 Inactive ceftriaxone 500 mg solution for injection RxNorm: 0192305 Inj 04/06/2018 04/06/2018 Inactive ketorolac 60 mg/2 mL intramuscular solution RxNorm: 5170044 Milliliter(s) IM 04/05/2018 04/05/2018 Inactive ceftriaxone 500 mg solution for injection RxNorm: 2117245 Inj 04/05/2018 04/05/2018 Inactive ondansetron 4 mg disintegrating tablet RxNorm: 075807 1 Tablet(s) PO TID as needed nausea 04/04/2018 No Stop Date Active ketorolac 30 mg/mL injection solution RxNorm: 226552 2 Milliliter(s) Inj 04/04/2018 04/04/2018 Inactive ceftriaxone 500 mg solution for injection RxNorm: 6544220 Inj 04/04/2018 04/04/2018 Inactive nystatin 100,000 unit/mL oral suspension RxNorm: 227091 4 Milliliter(s) PO QID 04/01/2018 04/05/2018 Inactive doxycycline hyclate 100 mg tablet RxNorm: 6813896 1 Tablet(s) PO BID 04/01/2018 04/10/2018 Inactive prednisone 10 mg tablet RxNorm: 402603 1 Tablet(s) PO UD 6 pills on day 1 and 2 and then decrease by one pill every other day until prescription is done 03/24/2018 No Stop Date Active amoxicillin 500 mg capsule RxNorm: 928507 1 Capsule(s) PO TID 03/24/2018 04/02/2018 Inactive metoprolol succinate ER 50 mg tablet,extended release 24 hr RxNorm: 289131 Tablet (s) TAKE 1 TABLET BY MOUTH DAILY 03/21/2018 05/02/2018 Inactive PLEASE SEND REFILL REQUESTS ELECTRONICALLY!! Synthroid 88 mcg tablet RxNorm: 944561 TAKE 1 TABLET BY MOUTH DAILY 03/08/2018 08/04/2018 Active 03/07/2018 11:21:21 AM pravastatin 80 mg tablet RxNorm: 491413 Tablet(s) 1 Tablet(s) PO daily 03/01/2018 02/23/2019 Active Kenalog 40 mg/mL suspension for injection RxNorm: 8916102 Milliliter(s) Inj 12/24/2017 12/24/2017 Inactive cetirizine 10 mg tablet RxNorm: 3453744 TAKE 1 TABLET BY MOUTH DAILY 12/21/2017 04/19/2018 Inactive Generic For:*ZYRTEC 10 MG TABLET 12/21/2017 10:08:05 AM Synthroid 88 mcg tablet RxNorm: 504461 TAKE 1 TABLET BY MOUTH DAILY 12/07/2017 03/06/2018 Inactive 12/06/2017 11:46:49 AM Lipitor 80 mg tablet RxNorm: 537871 1 Tablet(s) PO daily 201702/28/2018 Inactive pravastatin 80 mg tablet RxNorm: 444852 1 Tablet(s) PO daily 11/29/2017 Inactive Lipitor 80 mg tablet RxNorm: 152644 1 Tablet(s) PO daily 201711/28/2017 Inactive lisinopril 20 mg tablet RxNorm: 405480 TAKE 1 TABLET BY MOUTH TWICE DAILY 11/23/2017 04/21/2018 Inactive Generic For:*PRINIVIL 20 MG TABLET 11/23/2017 11:29 :44 AM Macrobid 100 mg capsule RxNorm: 268225 1 Capsule(s) PO BID 06/201711/25/2017 Inactive Macrobid 100 mg capsule RxNorm: 738422 1 Capsule(s) PO BID 06/201711/18/2017 Inactive Lomotil 2.5 mg-0.025 mg tablet RxNorm: 0518644 1 -2 Tablet(s) PO TID as needed 11/19/2017 11/25/2017 Inactive Lomotil 2.5 mg-0.025 mg tablet RxNorm: 0378257 1 -2 Tablet(s) PO TID as needed 11/19/2017 11/18/2017 Inactive Pyridium 200 mg tablet RxNorm: 6336081 1 Tablet(s) PO TID as needed 11/18/2017 11/22/2017 Inactive Augmentin 500 mg-125 mg tablet RxNorm: 420966 1 Tablet(s) PO TID 11/18/2017 11/27/2017 Inactive Keflex 500 mg capsule RxNorm: 220135 1 Capsule(s) PO TID 201711/09/2017 Inactive Denavir 1 % topical cream RxNorm: 755589 1 TOP TID as needed cold sores 11/01/2017 01/29/2018 Inactive Denavir 1 % topical cream RxNorm: 359882 1 TOP TID as needed cold sores 11/01/2017 10/31/2017 Inactive Synthroid 88 mcg tablet RxNorm: 495381 TAKE 1 TABLET BY MOUTH DAILY 09/29/2017 11/27/2017 Inactive 09/29/2017 12:58:07 PM pravastatin 80 mg tablet RxNorm: 393349 1 Tablet(s) PO daily 08/30/2017 Inactive pravastatin 80 mg tablet RxNorm: 156854 1 Tablet(s) PO daily 11/28/2017 Inactive Synthroid 88 mcg tablet RxNorm: 656919 TAKE 1 TABLET BY MOUTH DAILY 08/30/2017 09/28/2017 Inactive 08/30/2017 10:53:26 AM metoprolol succinate ER 50 mg tablet,extended release 24 hr RxNorm: 434554 Tablet (s) TAKE 1 TABLET BY MOUTH DAILY 08/17/2017 03/14/2018 Inactive PLEASE SEND REFILL REQUESTS ELECTRONICALLY!! lisinopril 20 mg tablet RxNorm: 649320 TAKE 1 TABLET BY MOUTH TWICE DAILY 06/18/2017 11/14/2017 Inactive Generic For:*PRINIVIL 20 MG TABLET 06/18/2017 1:31: 00 PM Synthroid 88 mcg tablet RxNorm: 377945 TAKE 1 TABLET BY MOUTH DAILY 05/24/2017 08/21/2017 Inactive 05/24/2017 2:13:21 PM cetirizine 10 mg tablet RxNorm: 4291372 1 Tablet(s) PO daily 12/12/2017 Inactive Zithromax Z-Russell 250 mg capsule RxNorm: 944915 1 Capsule(s) PO 04/02/2017 04/05/2017 Inactive Zithromax Z-Russell 250 mg tablet RxNorm: 010077 1 Tablet(s) PO 04/01/2017 Inactive Zithromax Z-Russell 250 mg capsule RxNorm: 493639 1 Capsule(s) PO 04/02/2017 04/01/2017 Inactive Zithromax Z-Russell 250 mg tablet RxNorm: 806594 1 Tablet(s) PO 04/06/2017 Inactive Ventolin HFA 90 mcg/actuation aerosol inhaler RxNorm: 265347 2 INH QID as needed - for the first 3 days inhale at least two puffs three times daily, then use as needed for shortness of breath 04/01/2017 04/30/2017 Inactive Keflex 500 mg capsule RxNorm: 236507 1 Capsule(s) PO TID 201604/01/2017 Inactive meclizine 25 mg tablet RxNorm: 751609 1 Tablet(s) PO Q6 PRN 1 Tablet(s) PO Q6 PRN 03/25/2017 No Stop Date Active dizziness meclizine 25 mg tablet RxNorm: 252784 Tablet(s) 1 Tablet(s) PO Q6 PRN 03/25/2017 03/24/2017 Inactive dizziness Kenalog 40 mg/mL suspension for injection RxNorm: 6741071 1 Milliliter(s) Inj 03/25/2017 03/25/2017 Inactive meclizine 25 mg tablet RxNorm: 731770 1 Tablet(s) PO Q6 PRN 03/24/2017 Inactive dizziness lisinopril 20 mg tablet RxNorm: 184768 1 Tablet(s) PO BID 01/1506/13/2017 Inactive metoprolol succinate ER 50 mg tablet,extended release 24 hr RxNorm: 780745 TAKE 1 TABLET BY MOUTH DAILY 01/07/20172017 Inactive Generic For:TOPROL XL 50MG TAB 01/07/2017 12:38:23 PM Synthroid 88 mcg tablet RxNorm: 337915 TAKE 1 TABLET BY MOUTH DAILY 12/25/2016 05/23/2017 Inactive 12/25/2016 9:47:08 AM Zithromax Z-Russell 250 mg tablet RxNorm: 588990 Tablet(s) PO UD 03/24/2017 Inactive meclizine 25 mg tablet RxNorm: 781965 1 Tablet(s) PO Q6 PRN 12/20/2016 Inactive dizziness Kenalog 40 mg/mL suspension for injection RxNorm: 2841705 Milliliter(s) Inj 12/08/2016 12/08/2016 Inactive meloxicam 15 mg tablet RxNorm: 570287 1 Tablet(s) PO daily 12/20/2016 Inactive cetirizine 10 mg tablet RxNorm: 4741884 1 Tablet(s) PO daily 05/16/2017 Inactive pravastatin 40 mg tablet RxNorm: 438672 1 Tablet(s) PO BID 07/201608/30/2017 Inactive Cancel 80 mg tab lisinopril 20 mg tablet RxNorm: 848803 1 Tablet(s) PO BID 08/1212/22/2016 Inactive Synthroid 88 mcg tablet RxNorm: 518870 1 Tablet(s) PO TAKE ONE (1) TABLET BY MOUTH DAILY 07/28/2016 12/24/2016 Inactive decrease dose hydralazine 25 mg tablet RxNorm: 637087 1 Tablet(s) PO TID as needed for Systolic blood pressure over 170 07/06/20162016 Inactive lisinopril 20 mg tablet RxNorm: 695522 1 Tablet(s) PO BID to replace your other lisinopril dose 07/06/2016 08/04/2016 Inactive lisinopril 10 mg tablet RxNorm: 321125 TAKE ONE TABLET BY MOUTH TWICE DAILY 06/10/2016 08/11/2016 Inactive Generic For:ZESTRIL 10 MG TABLET 06/09/2016 12:58: 50 PM triamcinolone acetonide 0.1 % topical cream RxNorm: 3184465 1 Application TOP TID as needed 06/01/2016 No Stop Date Active nystatin 100,000 unit/gram topical cream RxNorm: 619229 1 Gram(s) TOP TID as needed 06/01/2016 No Stop Date Active metoprolol succinate ER 50 mg tablet,extended release 24 hr RxNorm: 933939 1 Tablet(s) PO daily 05/26/2016 12/21/2016 Inactive cetirizine 10 mg tablet RxNorm: 8240534 1 Tablet(s) PO daily 10/18/2016 Inactive Synthroid 88 mcg tablet RxNorm: 616233 1 Tablet(s) PO TAKE ONE (1) TABLET BY MOUTH DAILY 03/06/2016 03/07/2018 Inactive Brand name only! Synthroid 88 mcg tablet RxNorm: 392850 1 Tablet(s) PO TAKE ONE (1) TABLET BY MOUTH DAILY 03/04/2016 03/05/2016 Inactive decrease dose cetirizine 10 mg tablet RxNorm: 9398695 1 Tablet(s) PO daily 03/22/2016 Inactive amoxicillin 500 mg capsule RxNorm: 625072 1 Capsule(s) PO TID 02/27/2016 03/04/2016 Inactive lisinopril 10 mg tablet RxNorm: 468061 TAKE ONE TABLET BY MOUTH TWICE DAILY 02/06/2016 06/04/2016 Inactive Generic For:ZESTRIL 10 MG TABLET 02/06/2016 12:16: 38 PM Synthroid 100 mcg tablet RxNorm: 096271 TAKE ONE (1) TABLET BY MOUTH DAILY 01/03/2016 03/03/2016 Inactive 01/03/2016 10:35:14 AM N O T I C E Last quantity doesn't match original quantity lisinopril 10 mg tablet RxNorm: 009489 1 Tablet(s) PO BID 10/0301/31/2016 Inactive Synthroid 100 mcg tablet RxNorm: 265183 1 Tablet(s) PO daily 01/02/2016 Inactive metoprolol succinate ER 50 mg tablet,extended release 24 hr RxNorm: 729841 1 Tablet(s) PO daily 10/04/2015 04/30/2016 Inactive Tylenol Arthritis 650 mg tablet,extended release RxNorm: 5690883 2 Tablet(s) PO TID 09/10/2015 No Stop Date Active metoprolol succinate ER 50 mg tablet,extended release 24 hr RxNorm: 187514 1 Tablet(s) PO daily 09/05/2015 10/03/2015 Inactive pravastatin 80 mg tablet RxNorm: 538484 1 Tablet(s) PO QHS 08/30/2015 Inactive pravastatin 40 mg tablet RxNorm: 826363 1 Tablet(s) PO BID 08/29/2015 Inactive Cancel 80 mg tab pravastatin 40 mg tablet RxNorm: 734079 1 Tablet(s) PO BID 08/19/2016 Inactive Cancel 80 mg tab lisinopril 10 mg tablet RxNorm: 664821 1 Tablet(s) PO BID 06/1308/11/2016 Inactive lisinopril 10 mg tablet RxNorm: 672864 1 Tablet(s) PO BID 06/1310/03/2015 Inactive Synthroid 100 mcg tablet RxNorm: 526266 1 Tablet(s) PO daily 10/03/2015 Inactive ceftriaxone 1 gram solution for injection RxNorm: 2570740 Inj 03/01/2015 03/01/2015 Inactive ceftriaxone 1 gram solution for injection RxNorm: 1775036 Inj 02/28/2015 02/28/2015 Inactive ceftriaxone 1 gram solution for injection RxNorm: 0906501 Inj 02/27/2015 02/27/2015 Inactive ceftriaxone 1 gram solution for injection RxNorm: 7447519 Inj 02/26/2015 02/26/2015 Inactive ceftriaxone 1 gram solution for injection RxNorm: 6759710 Inj 02/25/2015 02/25/2015 Inactive phenazopyridine 200 mg tablet RxNorm: 9374107 1 Tablet(s) PO Q8 02/21/2015 02/20/2015 Inactive Cipro 500 mg tablet RxNorm: 534387 1 Tablet(s) PO BID 201402/20/2015 Inactive phenazopyridine 200 mg tablet RxNorm: 9579482 1 Tablet(s) PO Q8 02/21/2015 02/25/2015 Inactive Cipro 500 mg tablet RxNorm: 854317 1 Tablet(s) PO BID 201402/27/2015 Inactive lisinopril 10 mg tablet RxNorm: 427566 1 Tablet(s) PO BID 02/1406/12/2015 Inactive metoprolol succinate ER 50 mg tablet,extended release 24 hr RxNorm: 248632 3/4 Tablet(s) PO daily 02/11/2015 09/04/2015 Inactive Voltaren 1 % topical gel RxNorm: 460922 2 Gram(s) TOP QID use this on affected joints up to four times daily. 02/11/2015 03/12/2015 Inactive Probiotic oral RxNorm : 6205 oral No Start Date Active aspirin 81 mg tablet RxNorm: 766085 1 Tablet(s) PO daily No Start Date Active Super B-Complex tablet RxNorm: 1 Tablet(s) PO No Start Date Active Flonase Allergy Relief 50 mcg/actuation nasal spray, suspension RxNorm: 7132649 1 [place] NASAL BID No Start Date Active Super-D3+ oral RxNorm : oral No Start Date Active Prilosec OTC 20 mg tablet,delayed release RxNorm: 223045 2 Tablet(s) PO QAM No Start Date Active Flonase Allergy Relief 50 mcg/actuation nasal spray, suspension RxNorm: 3945280 1 [place] NASAL as needed No Start Date Active Move Free Ultra 40 mg-10 mg-3.3 mg tablet RxNorm: 1 Tablet(s) PO daily No Start Date Active metoprolol tartrate 50 mg tablet RxNorm: 442404 1 Tablet(s) PO daily No Start Date 02/10/2015 Inactive lisinopril 10 mg tablet RxNorm: 193179 1 Tablet(s) PO BID No Start Date 02/13/2015 Inactive pravastatin 80 mg tablet RxNorm: 597053 1 Tablet(s) PO daily No Start Date 08/29/2015 Inactive Synthroid 100 mcg tablet RxNorm: 749643 1 Tablet(s) PO daily No Start Date 06/09/2015 Inactive lisinopril 40 mg tablet RxNorm: 983131 1 Tablet(s) PO BID No Start Date 02/28/2018 Inactive Tylenol Arthritis 650 mg tablet,extended release RxNorm: 8869966 4 Tablet(s) PO daily No Start Date 09/09/2015 Inactive Medication Administered Medication Codes Instructions Start Date Status ceftriaxone 500 mg solution for injection RxNorm: 1999007 04/08/2018 No longer Active ceftriaxone 500 mg solution for injection RxNorm: 9666768 04/07/2018 No longer Active ceftriaxone 500 mg solution for injection RxNorm: 1953849 04/06/2018 No longer Active ceftriaxone 500 mg solution for injection RxNorm: 5758281 04/05/2018 No longer Active ketorolac 60 mg/2 mL intramuscular solution RxNorm: 8137136 Milliliter 04/05/2018 No longer Active ceftriaxone 500 mg solution for injection RxNorm: 0688506 04/04/2018 No longer Active ketorolac 30 mg/mL injection solution RxNorm: 090767 2Milliliter 04/04/2018 No longer Active Kenalog 40 mg/mL suspension for injection RxNorm: 5065751 Milliliter 12/24/2017 No longer Active Kenalog 40 mg/mL suspension for injection RxNorm: 2376784 1Milliliter 03/25/2017 No longer Active Kenalog 40 mg/mL suspension for injection RxNorm: 2305191 Milliliter 12/08/2016 No longer Active ceftriaxone 1 gram solution for injection RxNorm: 4940645 03/01/2015 No longer Active ceftriaxone 1 gram solution for injection RxNorm: 7649554 02/28/2015 No longer Active ceftriaxone 1 gram solution for injection RxNorm: 6540326 02/27/2015 No longer Active ceftriaxone 1 gram solution for injection RxNorm: 7504431 02/26/2015 No longer Active ceftriaxone 1 gram solution for injection RxNorm: 2431128 02/25/2015 No longer Active Immunizations Vaccine Codes [...] Item Item Code Result Date Free T4 Eai157 FREE T4 1.07 ng/dL 04/04/2018 Tsh Ord6 TSH (3rd IS) 1.93 uIU/mL 04/04/2018 Urine Culture Ucult Preliminary NO Growth Day 1 03/28/2018 Urine Culture Ucult Complete NO Growth Day 2 03/28/2018 Urine Culture Ucult Complete >100,000 col/ml aerobic growth sent to ref lab 11/19/2017 B12 Jev313 B12 712.00 pg/ml 09/28/2017 C-Reactive Protein Qnt Crqnt CRP 0.1 mg/dl 09/23/2017 Comp Metabolic Kpz021 NA 139 mEq/L 09/23/2017 Comp Metabolic Cyy924 K 4.8 mEq/L 09/23/2017 Comp Metabolic Fat243 CL 104 mEq/L 09/23/2017 Comp Metabolic Hhn451 CO2 28.0 mEq/L 09/23/2017 Comp Metabolic Dka108 ANION GAP 12 09/23/2017 Comp Metabolic Wdm084 GLUCOSE 92 mg/dL 09/23/2017 Comp Metabolic Kww020 Creat 0.7 mg/dL 09/23/2017 Comp Metabolic Zlg433 eGFR 91 ml/min/1.73m2 09/23/2017 Comp Metabolic Ggt416 BUN 11 mg/dL 09/23/2017 Comp Metabolic Jnx335 B/C Ratio 16.4 Ratio 09/23/2017 Comp Metabolic Zfc417 CALCIUM 9.0 mg/dL 09/23/2017 Comp Metabolic Uxk468 ALK PHOS 76 U/L 09/23/2017 Comp Metabolic Hox789 AST(SGOT) 24 U/L 09/23/2017 Comp Metabolic Qfx790 ALT(SGPT) 21 U/L 09/23/2017 Comp Metabolic Wsv734 BILI T 0.3 mg/dL 09/23/2017 Comp Metabolic Jwg074 ALBUMIN 4.1 g/dL 09/23/2017 Comp Metabolic Lqs825 TPRO 6.2 g/dL 09/23/2017 Comp Metabolic Gid722 GLOB 2.1 g/dL 09/23/2017 Comp Metabolic Xxo273 A/G Ratio 1.9 Ratio 09/23/2017 Comp Metabolic Uts098 Osmo 277 mOsmo 09/23/2017 Sed Rate Ord21 ESR 3 mm/hr 09/22/2017 Vitamin D 25 Oh Hmc7621 VITAMIN D, 25 HYDROXY 78.79 ng/mL Tsh [...] 97.1 fl 09/22/2017 Cbc With Differential Ord2 [place]% 10.5 % 09/22/2017 Cbc With Differential Ord2 [...] 2.37 K/ul 09/22/2017 Cbc With Differential Ord2 [place] ABS# 0.9 K/ul 09/22/2017 Cbc With Differential Ord2 Eos ABS# 0.2 K/ul 09/22/2017 Cbc With Differential Ord2 Baso ABS# 0.0 K/ul 09/22/2017 Free T4 Gpq129 FREE T4 0.99 ng/dL 09/22/2017 %Hba1C Ekn126 % HbA1c 30301-2 6.0 % 12/10/2016 %Hba1C Jtt543 Gluc Ave 126 mg/dL 12/10/2016 Tsh Ord6 hTSH II 0.89 uIU/mL 12/09/2016 Free T4 Xgc376 FREE T4 0.99 ng/dL 12/09/2016 Comp Metabolic Oru797 NA 138 mEq/L 12/09/2016 Comp Metabolic Hck405 K 5.2 mEq/L 12/09/2016 Comp Metabolic Ttq042 CL 104 mEq/L 12/09/2016 Comp Metabolic Qdv944 CO2 29.0 mEq/L 12/09/2016 Comp Metabolic Ywt793 ANION GAP 10 12/09/2016 Comp Metabolic Xob007 GLUCOSE 135 mg/dL 12/09/2016 Comp Metabolic Ddw447 Creat 0.8 mg/dL 12/09/2016 Comp Metabolic Qop753 eGFR 79 ml/min/1.73m2 12/09/2016 Comp Metabolic Hfz017 BUN 18 mg/dL 12/09/2016 Comp Metabolic Kuk898 B/C Ratio 23.7 Ratio 12/09/2016 Comp Metabolic Ucf425 CALCIUM 9.5 mg/dL 12/09/2016 Comp Metabolic Air186 ALK PHOS 73 U/L 12/09/2016 Comp Metabolic Hpr424 AST(SGOT) 24 U/L 12/09/2016 Comp Metabolic Glp580 ALT(SGPT) 20 U/L 12/09/2016 Comp Metabolic Nik721 BILI T 0.3 mg/dL 12/09/2016 Comp Metabolic Faj426 ALBUMIN 4.3 g/dL 12/09/2016 Comp Metabolic Het331 TPRO 6.4 g/dL 12/09/2016 Comp Metabolic Jsm638 GLOB 2.1 g/dL 12/09/2016 Comp Metabolic Xxb693 A/G Ratio 2.0 Ratio 12/09/2016 Comp Metabolic Aqd254 Osmo 280 mOsmo 12/09/2016 Cbc With Differential [...] 31.3 pg 12/09/2016 Cbc With Differential Ord2 [place]% 6.5 % 12/09/2016 Cbc With Differential Ord2 [...] 1.84 K/ul 12/09/2016 Cbc With Differential Ord2 [place] ABS# 0.6 K/ul 12/09/2016 Cbc With Differential Ord2 Eos ABS# 0.1 K/ul 12/09/2016 Cbc With Differential Ord2 Baso ABS# 0.1 K/ul 12/09/2016 Tsh Ord6 hTSH II 1.19 uIU/mL 09/02/2016 Free T4 Odn999 FREE T4 0.97 ng/dL 09/02/2016 Comp Metabolic Yun198 NA 137 mEq/L 06/01/2016 Comp Metabolic Uak650 K 4.1 mEq/L 06/01/2016 Comp Metabolic Pap553 CL 104 mEq/L 06/01/2016 Comp Metabolic Yxm130 CO2 25.0 mEq/L 06/01/2016 Comp Metabolic Nlm837 ANION GAP 12 06/01/2016 Comp Metabolic Slj430 GLUCOSE 108 mg/dL 06/01/2016 Comp Metabolic Dus241 Creat 0.8 mg/dL 06/01/2016 Comp Metabolic Owg648 eGFR 80 ml/min/1.73m2 06/01/2016 Comp Metabolic Mbv511 BUN 15 mg/dL 06/01/2016 Comp Metabolic Iat217 B/C Ratio 20.0 Ratio 06/01/2016 Comp Metabolic Uyw773 CALCIUM 9.1 mg/dL 06/01/2016 Comp Metabolic Cmj225 ALK PHOS 89 U/L 06/01/2016 Comp Metabolic Etk946 AST(SGOT) 25 U/L 06/01/2016 Comp Metabolic Woh170 ALT(SGPT) 20 U/L 06/01/2016 Comp Metabolic Vdl268 BILI T 0.3 mg/dL 06/01/2016 Comp Metabolic Fzk519 ALBUMIN 4.2 g/dL 06/01/2016 Comp Metabolic Luu411 TPRO 6.2 g/dL 06/01/2016 Comp Metabolic Wkn092 GLOB 2.0 g/dL 06/01/2016 Comp Metabolic Aro019 A/G Ratio 2.1 Ratio 06/01/2016 Comp Metabolic Uka653 Osmo 275 mOsmo 06/01/2016 Free T4 Aaa504 FREE T4 0.94 ng/dL 06/01/2016 Tsh Ord6 [...] 31.1 pg 06/01/2016 Cbc With Differential Ord2 [place]% 8.4 % 06/01/2016 Cbc With Differential Ord2 [...] 2.96 K/ul 06/01/2016 Cbc With Differential Ord2 [place] ABS# 0.6 K/ul 06/01/2016 Cbc With Differential [...] 31.3 pg 02/27/2016 Cbc With Differential Ord2 [place]% 10.0 % 02/27/2016 Cbc With Differential Ord2 [...] 2.28 K/ul 02/27/2016 Cbc With Differential Ord2 [place] ABS# 0.9 K/ul 02/27/2016 Cbc With Differential Ord2 Eos ABS# 0.3 K/ul 02/27/2016 Cbc With Differential Ord2 Baso ABS# 0.1 K/ul 02/27/2016 Tsh Ord6 hTSH II 0.18 uIU/mL 02/27/2016 Free T4 Hkv286 FREE T4 1.17 ng/dL 02/27/2016 Comp Metabolic Psf451 NA 135 mEq/L 02/27/2016 Comp Metabolic Bwe534 K 5.2 mEq/L 02/27/2016 Comp Metabolic Izz343 CL 102 mEq/L 02/27/2016 Comp Metabolic Gpk613 CO2 27.0 mEq/L 02/27/2016 Comp Metabolic Vpr561 ANION GAP 11 02/27/2016 Comp Metabolic Dkh133 GLUCOSE 93 mg/dL 02/27/2016 Comp Metabolic Bpy468 Creat 0.7 mg/dL 02/27/2016 Comp Metabolic Pmk586 eGFR 91 ml/min/1.73m2 02/27/2016 Comp Metabolic Kno718 BUN 14 mg/dL 02/27/2016 Comp Metabolic Xax823 B/C Ratio 20.9 Ratio 02/27/2016 Comp Metabolic Abr341 CALCIUM 9.4 mg/dL 02/27/2016 Comp Metabolic Bkf477 ALK PHOS 100 U/L 02/27/2016 Comp Metabolic Mbj446 AST(SGOT) 23 U/L 02/27/2016 Comp Metabolic Sih496 ALT(SGPT) 24 U/L 02/27/2016 Comp Metabolic Khp466 BILI T 0.2 mg/dL 02/27/2016 Comp Metabolic Kgm476 ALBUMIN 4.3 g/dL 02/27/2016 Comp Metabolic Hal602 TPRO 6.3 g/dL 02/27/2016 Comp Metabolic Vnl866 GLOB 2.1 g/dL 02/27/2016 Comp Metabolic Ivq226 A/G Ratio 2.1 Ratio 02/27/2016 Comp Metabolic Krz266 Osmo 270 mOsmo 02/27/2016 Free T4 Tlo602 FREE T4 1.03 ng/dL 05/10/2015 Comp Metabolic Jdu743 NA 137 mEq/L 05/10/2015 Comp Metabolic Zmc084 K 4.4 mEq/L 05/10/2015 Comp Metabolic Hut450 CL 102 mEq/L 05/10/2015 Comp Metabolic Rzg769 CO2 28.0 mEq/L 05/10/2015 Comp Metabolic Zfl222 ANION GAP 11 05/10/2015 Comp Metabolic Kfe477 GLUCOSE 108 mg/dL 05/10/2015 Comp Metabolic Jzl415 Creat 0.7 mg/dL 05/10/2015 Comp Metabolic Tit102 eGFR 86 ml/min/1.73m2 05/10/2015 Comp Metabolic Gqs233 BUN 13 mg/dL 05/10/2015 Comp Metabolic Kek878 B/C Ratio 18.3 Ratio 05/10/2015 Comp Metabolic Cbd981 CALCIUM 9.4 mg/dL 05/10/2015 Comp Metabolic Oof864 ALK PHOS 94 U/L 05/10/2015 Comp Metabolic Dad335 AST(SGOT) 22 U/L 05/10/2015 Comp Metabolic Lda462 ALT(SGPT) 21 U/L 05/10/2015 Comp Metabolic Lzn592 BILI T 0.3 mg/dL 05/10/2015 Comp Metabolic Bfl140 ALBUMIN 3.9 g/dL 05/10/2015 Comp Metabolic Hbu829 TPRO 6.1 g/dL 05/10/2015 Comp Metabolic Zbv201 GLOB 2.2 g/dL 05/10/2015 Comp Metabolic Dib843 A/G Ratio 1.7 Ratio 05/10/2015 Comp Metabolic Zmr906 Osmo 274 mOsmo 05/10/2015 Tsh Ord6 hTSH [...] 29.4 pg 05/10/2015 Cbc With Differential Ord2 [place]% 9.0 % 05/10/2015 Cbc With Differential Ord2 [...] 2.14 K/ul 05/10/2015 Cbc With Differential Ord2 [place] ABS# 0.5 K/ul 05/10/2015 Cbc With Differential [...] Ord30 C/HDL 3.8 Ratio 05/10/2015 Culture Urine [id number] URINE CULTURE SEE NOTES 02/25/2015 Culture Urine [id number] Continued Results 02/25/2015 Urine Culture Ucult Complete >100,000 col/ml aerobic growth sent to ref lab 02/22/2015 Free T4 Wrw733 FREE T4 1.16 ng/dL 02/11/2015 Tsh Ord6 [...] lips 04/21/2018 None Full Exam - General 1994 [...] time 11/03/2017 None Full Exam - General [facility] Constitutional general appearance Overall: well developed 09/22/2017 None Full Exam - General 1994 Constitutional general appearance Overall: in no acute distress 09/22/2017 None Full Exam - General 1994 Constitutional general appearance Overall: well nourished 09/22/2017 None Full Exam - General 1994 Eyes conjunctiva /eyelids Overall: eyelids normal 09/22/2017 None Full Exam - General 1995 Eyes conjunctiva /eyelids Overall: cornea clear 09/22/2017 [...] clear 11/30/2016 None Full Exam - General 1995 Ears/Nose/Throat [...] Procedure Codes Date THER/PROPH/DIAG INJ SC/IM CPT-4: 77216 04/08/2018 ROCEPHIN, PER 250 MG CPT-4: J0696 04/08/2018 THER/PROPH/DIAG INJ SC/IM CPT-4: 24944 04/07/2018 ROCEPHIN, PER 250 MG CPT-4: J0696 04/07/2018 THER/PROPH/DIAG INJ SC/IM CPT-4: 54806 04/06/2018 ROCEPHIN, PER 250 MG CPT-4: J0696 04/06/2018 THER/PROPH/DIAG INJ SC/IM CPT-4: 44163 04/05/2018 ROCEPHIN, PER 250 MG CPT-4: J0696 04/05/2018 KETOROLAC TROMETHAMINE INJ CPT-4: J1885 04/05/2018 THER/PROPH/DIAG INJ SC/IM CPT-4: 87435 04/04/2018 ROCEPHIN, PER 250 MG CPT-4: J0696 04/04/2018 KETOROLAC TROMETHAMINE INJ CPT-4: J1885 04/04/2018 URINALYSIS NONAUTO W/O SCOPE CPT-4: 03221 03/24/2018 PPPS, SUBSEQ VISIT CPT -4: G0439 12/24/2017 THER/PROPH/DIAG INJ SC/IM CPT-4: 17896 12/24/2017 TRIAMCINOLONE ACET INJ NOS CPT-4: J3301 12/24/2017 THER/PROPH/DIAG INJ SC/IM CPT-4: 28824 11/18/2017 ROCEPHIN, PER 250 MG CPT-4: J0696 11/18/2017 PRESCRIP TRANSMIT VIA ERX SY CPT-4: G8553 04/01/2017 TRIAMCINOLONE ACET INJ NOS CPT-4: J3301 03/25/2017 PPPS, SUBSEQ VISIT CPT -4: G0439 12/23/2016 THER/PROPH/DIAG INJ SC/IM CPT-4: 78139 12/08/2016 TRIAMCINOLONE ACET INJ NOS CPT-4: J3301 12/08/2016 PRESCRIP TRANSMIT VIA ERX SY CPT-4: G8553 12/08/2016 PRESCRIP TRANSMIT VIA ERX SY CPT-4: G8553 11/30/2016 URINALYSIS NONAUTO W/O SCOPE CPT-4: 90311 07/08/2016 PRESCRIP TRANSMIT VIA ERX SY CPT-4: G8553 06/01/2016 PRESCRIP TRANSMIT VIA ERX SY CPT-4: G8553 02/27/2016 THER/PROPH/DIAG INJ SC/IM CPT-4: 65723 03/01/2015 ROCEPHIN, PER 250 MG CPT-4: J0696 03/01/2015 THER/PROPH/DIAG INJ SC/IM CPT-4: 56793 02/28/2015 ROCEPHIN, PER 250 MG CPT-4: J0696 02/28/2015 THER/PROPH/DIAG INJ SC/IM CPT-4: 23800 02/27/2015 ROCEPHIN, PER 250 MG CPT-4: J0696 02/27/2015 THER/PROPH/DIAG INJ SC/IM CPT-4: 80661 02/26/2015 ROCEPHIN, PER 250 MG CPT-4: J0696 02/26/2015 THER/PROPH/DIAG INJ SC/IM CPT-4: 63346 02/25/2015 ROCEPHIN, PER 250 MG CPT-4: J0696 02/25/2015 URINALYSIS NONAUTO W/O SCOPE CPT-4: 22186 02/21/2015 Vital Signs Date Vital 04/21/2018 Blood [...] Code : 8480-6 BMI: 27.8 Code : 28184-7 Heart Rate 1 : 85 bpm Height: 5'3" SpO2: 96% Weight: 157 lbs 03/24/2018 Blood Pressure 1: 128/82 Code : 8480-6 BMI: 27.8 Code : 21125-3 Heart Rate 1 : 84 bpm Height: 5'3" SpO2: 97% Weight: 157 lbs 03/01/2018 Blood Pressure 1: 136/70 Code : 8480-6 BMI: 27.8 Code : 87080-8 Heart Rate 1 : 70 bpm Height: 5'3" SpO2: 96% Weight: 157 lbs 12/24/2017 Height: Weight: 11/18/2017 Blood Pressure 1: 164/74 Code : 8480-6 BMI: 27.6 Code : 89297-4 Heart Rate 1 : 70 bpm Height: 5'3" SpO2: 96% Weight: 156 lbs 11/03/2017 Blood Pressure 1: 118/72 Code : 8480-6 BMI: 27.6 Code : 56534-9 Heart Rate 1 : 82 bpm Height: 5'3" SpO2: 96% Weight: 156 lbs 09/22/2017 Blood Pressure 1: 136/68 Code : 8480-6 BMI: 27.6 Code : 64987-8 Heart Rate 1 : 70 bpm Height: 5'3" SpO2: 97% Weight: 156 lbs 04/01/2017 Blood Pressure 1: 144/82 Code : 8480-6 Heart Rate 1: 68 bpm Height: 5'3" SpO2: 97% Weight: 03/25/2017 Blood Pressure 1: 116/70 Code : 8480-6 BMI: 26.7 Code : 38629-2 Heart Rate 1 : 67 bpm Height: 5'3" SpO2: 98% Weight: 151 lbs 12/23/2016 BMI: 26.7 Code: 57493-1 Height: 5'3" Weight: 151 lbs 12/22/2016 Blood Pressure 1: 142/60 Code : 8480-6 BMI: 26.7 Code : 51085-7 Heart Rate 1 : 67 bpm Height: 5'3" SpO2: 98% Weight: 151 lbs 12/08/2016 Blood Pressure 1: 140/72 Code : 8480-6 Heart Rate 1: 72 bpm Height: 5'3" SpO2: 97% Weight: 11/30/2016 Blood Pressure 1: 128/80 Code : 8480-6 BMI: 26.7 Code : 71250-9 Heart Rate 1 : 63 bpm Height: 5'3" SpO2: 96% Weight: 151 lbs 09/28/2016 Blood Pressure 1: 130/80 Code : 8480-6 BMI: 27.1 Code : 44745-6 Heart Rate 1 : 80 bpm Height: 5'3" SpO2: 97% Weight: 153 lbs 07/06/2016 Blood Pressure 1: 162/72 Code : 8480-6 BMI: 27.6 Code : 49360-3 Heart Rate 1 : 72 bpm Height: 5'3" SpO2: 98% Weight: 156 lbs 06/01/2016 Blood Pressure 1: 122/66 Code : 8480-6 BMI: 27.5 Code : 80913-1 Heart Rate 1 : 73 bpm Height: 5'3" SpO2: 98% Weight: 155 lbs 8 oz 02/27/2016 Blood Pressure 1: 126/68 Code : 8480-6 BMI: 26.9 Code : 29434-0 Heart Rate 1 : 70 bpm Height: 5'3" SpO2: 98% Weight: 152 lbs 09/10/2015 Blood Pressure 1: 130/70 Code : 8480-6 BMI: 26.9 Code : 05581-2 Heart Rate 1 : 72 bpm Height: 5'3" SpO2: 97% Weight: 152 lbs 05/14/2015 Blood Pressure 1: 138/82 Code : 8480-6 BMI: 26.4 Code : 41407-5 Heart Rate 1 : 75 bpm Height: 5'3" SpO2: 98% Weight: 149 lbs 02/11/2015 Blood Pressure 1: 128/72 Code : 8480-6 BMI: 25.5 Code : 11110-8 Heart Rate 1 : 73 bpm Height: [...] data Encounters Encounter Performer Location Codes Date 84527 EST. PATIENT, LEVEL IV Diagnosis: Low back pain[ICD10: M54.5] Diagnosis: Essential (primary) hypertension[ICD10: I10] Diagnosis: Other fatigue[ICD10: R53.83] Diagnosis: Other malaise[ICD10: R53.81] Bridget Cortez MD, [facility] CPT-4 : 01538 04/21/2018 40227 EST. PATIENT, LEVEL III Diagnosis: Other fatigue[ICD10: R53.83] Diagnosis: Otalgia, right ear[ICD10: H92.01] Bridget Cortez MD, [facility] CPT -4: 36058 04/13/2018 ([id number]) 34148 EST. PATIENT, LEVEL III Diagnosis: Essential (primary) hypertension[ICD10: I10] Diagnosis: Dysuria[ICD10: R30.0] Diagnosis: Nausea[ICD10: R11.0] Diagnosis: Headache[ICD10: R51] Elen Cortez MD, [facility] CPT-4: 82939 04/04/2018 04511 EST. PATIENT, LEVEL III Diagnosis: Other acute sinusitis[ICD10: J01.80] Diagnosis: Dizziness and giddiness[ICD10: R42] Diagnosis: Dysuria[ICD10: R30.0] Diagnosis: Candidal stomatitis[ICD10: B37.0] Diagnosis: Essential (primary) hypertension[ICD10: I10] Diagnosis: Other fatigue[ICD10: R53.83] Diagnosis: Other malaise[ICD10: R53.81] Bridget Cortez MD, [facility] CPT-4 : 98663 04/01/2018 ([id number]) 91069 EST. 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 PATIENT, LEVEL IV Diagnosis: Otalgia, right ear[ICD10: H92.01] Diagnosis: Headache[ICD10: R51] Diagnosis: Other fatigue[ICD10: R53.83] Diagnosis: Abnormal findings on diagnostic imaging of other specified body structures[ICD10: R93.89] Elen Cortez MD, [facility] CPT-4: 51924 03/01/2018 97941 EST. PATIENT, LEVEL III Diagnosis: Acute cystitis with hematuria[ICD10: N30.01] Bridget Cortez MD, [facility] CPT-4: 17103 11/18/2017 02397 EST. PATIENT, LEVEL IV Diagnosis: Other acute sinusitis[ICD10: J01.80] Diagnosis: Otalgia, right ear[ICD10: H92.01] Bridget Cortez MD, [facility] CPT -4: 36623 11/03/2017 44741 EST. PATIENT, LEVEL III Diagnosis: Other fatigue[ICD10: R53.83] Diagnosis: Other malaise[ICD10: R53.81] Diagnosis: Pain in left knee[ICD10: M25.562] Diagnosis: Pain in right knee[ICD10: M25.561] Bridget Cortez MD, [facility] CPT-4: 19056 09/22/2017 ([id number]) 29990 EST. PATIENT, LEVEL III Diagnosis: Cough[ICD10: R05] Diagnosis: Acute bronchitis due to other specified organisms[ICD10: J20.8] Elen Cortez MD, [facility] CPT-4: 22873 04/01/2017 ([id number]) 76479 EST. PATIENT, LEVEL III Diagnosis: Otalgia, right ear[ICD10: H92.01] Diagnosis: Other allergic rhinitis[ICD10: J30.89] Shiela Cortez MD, [facility] CPT-4: 16145 03/25/2017 ([id number]) 28750 EST. PATIENT, LEVEL III Diagnosis: Benign paroxysmal vertigo, bilateral[ICD10: H81.13] Shiela Cortez MD, [facility] CPT-4: 43511 12/22/2016 ([id number]) 03290 EST. PATIENT, LEVEL IV Diagnosis: Benign paroxysmal vertigo, bilateral[ICD10: H81.13] Diagnosis: Other allergic rhinitis[ICD10: J30.89] Diagnosis: Hypothyroidism, unspecified[ICD10: E03.9] Shiela Cortez MD, [facility] CPT-4: 45003 12/08/2016 ([id number]) 72333 EST. PATIENT, LEVEL IV Diagnosis: Atrophy of thyroid (acquired)[ICD10: E03.4] Diagnosis: Essential (primary) hypertension[ICD10: I10] Diagnosis: Mixed hyperlipidemia[ICD10: E78.2] Elen Cortez MD, [facility] CPT-4: 05929 11/30/2016 03227 EST. PATIENT, LEVEL IV Diagnosis: Headache[ICD10: R51] Diagnosis: Other fatigue[ICD10: R53.83] Diagnosis: Dizziness and giddiness[ICD10: R42] Bridget Cortez MD, [facility] CPT-4: 32867 09/28/2016 44528 EST. PATIENT, LEVEL IV Diagnosis: Essential (primary) hypertension[ICD10: I10] Diagnosis: Headache[ICD10: R51] Bridget Cortez MD, [facility] CPT-4: 59223 07/06/2016 ([id number]) 03048 EST. PATIENT, LEVEL IV Diagnosis: Essential (primary) hypertension[ICD10: I10] Diagnosis: Atrophy of thyroid (acquired)[ICD10: E03.4] Diagnosis: Mixed hyperlipidemia[ICD10: E78.2] Elen Cortez MD, [facility] CPT-4: 94670 06/01/2016 54036 EST. PATIENT, LEVEL IV Diagnosis: Acute laryngopharyngitis[ICD10: J06.0] Diagnosis: Other allergic rhinitis[ICD10: J30.89] Diagnosis: Other specified hypothyroidism[ICD10: E03.8] Diagnosis: Other fatigue[ICD10: R53.83] Bridget Cortez MD, [facility] CPT-4 : 87057 02/27/2016 ([id number]) 53809 EST. PATIENT, LEVEL III Diagnosis: Essential (primary) hypertension[ICD10: I10] Diagnosis: Mixed hyperlipidemia[ICD10: E78.2] [facility] CPT-4: 72815 09/10/2015 ([id number]) 91030 EST. PATIENT, LEVEL IV Diagnosis: Essential (primary) hypertension[ICD10: I10] Diagnosis: Hypothyroidism, unspecified[ICD10: E03.9] Diagnosis: Unspecified osteoarthritis, unspecified site[ICD10: M19.90] [facility] CPT-4: 48199 05/14/2015 ([id number]) OFFICE VISIT, NEW - LEVEL 4 Diagnosis: Essential (primary) hypertension[ICD10: I10] Diagnosis: Hypothyroidism, unspecified[ICD10: E03.9] Diagnosis: Unspecified osteoarthritis, unspecified site[ICD10: M19.90] [facility] CPT-4: 11849 02/11/2015 Plan of Care Planned Activity Notes [...] or concerns. 04/21/2018 Appointment: Bridget Velazco WPtel: [address] [place], [place] [phone] (15 min) Moderate 04/21/2018 Patient Education: Patient Medication Summary Completed 04/21/2018 Patient Education: Back Pain Completed 04/21/2018 Appointment: Bridget Velazco WPtel: [phone] [facility] (15 min) Moderate 04/14/2018 Care Plan: Urine [...] Dr. Saini. 04/13/2018 Appointment: Bridget Velazco WPtel: [phone] [facility] [place] (30 min) Complex 04/13/2018 Patient Education: Patient Medication Summary Completed 04/13/2018 Appointment: Nurse Visit 04/08/2018 Appointment: Bridget Velazco WPtel: [facility] [address] [facility] [place] (15 min) Moderate 04/08/2018 Patient Education: Patient Medication Summary Completed 04/08/2018 Appointment: Injection 04/07/2018 Patient Education: Patient Medication Summary Completed 04/07/2018 Appointment: Injection 04/06/2018 Patient Education: Patient Medication Summary Completed 04/06/2018 Appointment: Injection 04/05/2018 Appointment: Elen Cortez WPtel: [phone] [facility] (15 min) Moderate 04/05/2018 Patient Education: Patient [...] toradol today. 04/04/2018 Appointment: Elen Cortez WPtel: [phone] [facility] [place] (10 min) Simple 04/04/2018 Patient Education: Patient Medication Summary Completed 04/04/2018 Patient Education: Patient Medication Summary Completed 04/04/2018 Patient Education: Patient Medication Summary Completed 04/04/2018 Care Plan: Referral Order SNOMED-CT : [id number] Pending 04/04/2018 Visit Plan: Dysuria, dizziness, fatigue, [...] improvement. 04/01/2018 [phone] ([facility]) Moderate 04/01/2018 Patient Education: Patient Medication Summary Completed 04/01/2018 Visit Plan: Sinusitis - Pt has acute infection - pain in face, maxillary region, Pt informed to use decongestant, RX given to patient, sinus rinses also recommended. Call if symptoms do not show improvement. Dysuria - rx for antibiotic sent to pharmacy. 03/24/2018 [phone] ([facility]) Moderate 03/24/2018 Patient Education: Patient [...] improve. 03/01/2018 Appointment: Elen Cortez WPtel: [phone] [facility] (15 min) Moderate 03/01/2018 Patient Education: Patient [...] spray. 12/24/2017 Appointment: [phone] [facility] [facility] - Annual Wellness Visit 12/24/2017 Patient Education: Patient Medication Summary Completed 12/24/2017 Appointment: [phone] [facility] (15 min) Moderate 11/30/2017 Appointment: Lab Draw [...] not improve. 11/18/2017 Appointment: Bridget Velazco WPtel: [phone] [facility] (15 min) Moderate 11/18/2017 Patient Education: Patient Medication Summary Completed 11/18/2017 Visit Plan: Sinusitis - Pt has acute infection - pain in face, maxillary region, Pt informed to use decongestant, RX given to patient, sinus rinses also recommended. Call if symptoms do not show improvement. 11/03/2017 Appointment: Bridget Velazco WPtel: [phone] [facility] (15 min) Moderate 11/03/2017 Patient Education: Patient [...] not improve. 09/22/2017 Appointment: Bridget Velazco WPtel: [facility] [phone] [facility] (15 min) Moderate 09/22/2017 Patient Education: Patient Medication Summary Completed 09/22/2017 Visit Plan: Bronchitis - acute case of bronchitis identified. Pt has been given antibiotics, breathing treatments as appropriate, and pt has been instructed to call if symptoms are not improved, or if symptoms acutely worsen. 04/01/2017 Appointment: Elen Cortez WPtel: [phone] [facility] (15 min) Moderate 04/01/2017 Patient Education: Patient [...] allergy spray. 03/25/2017 Appointment: Shiela Srivastava WPtel: [facility] [phone] [phone] (10 min) Simple 03/25/2017 Appointment: Elen Cortez WPtel: [facility] [phone] [facility] (15 min) Moderate 03/25/2017 Patient Education: Patient [...] care surrogate. 12/23/2016 Appointment: Bridget Velazco WPtel: [facility] [address] [facility] [facility] - Annual Wellness Visit 12/23/2016 Patient Education: Patient Medication Summary Completed 12/23/2016 Visit Plan: Vertigo-discussed PT for vestibular exercises- patient wants to wait since symptoms are improving-continue anti histamine as directed-meclizine as needed 12/22/2016 Appointment: Shiela Srivastava WPtel: [facility] [phone] [phone] (30 min) Complex 12/22/2016 Patient Education: [...] of control. 12/08/2016 Appointment: Shiela Srivastava WPtel: [facility] [phone] [phone] (30 min) Complex 12/08/2016 Patient Education: Patient [...] medications. 11/30/2016 Appointment: [phone] [facility] (15 min) Moderate 11/30/2016 Patient Education: Patient [...] or concerns. 09/28/2016 Appointment: Bridget Velazco WPtel: [facility] [phone] [facility] (30 min) Complex 09/28/2016 Patient Education: [...] acute concerns. 07/06/2016 Appointment: [phone] [facility] (15 min) Moderate 07/06/2016 Patient Education: [...] improving 06/01/2016 Appointment: [phone] [facility] (15 min) Moderate 06/01/2016 Patient Education: Patient [...] labs 02/27/2016 Appointment: [phone] [facility] (30 min) Complex 02/27/2016 Patient Education: Patient Medication Summary Completed 02/27/2016 Patient Education: Patient Medication Summary Completed 09/27/2015 Care Plan: [facility] 27371-3 Pending 09/27/2015 Visit Plan: Hypertension - well [...] the colonoscopy 09/10/2015 Appointment: Elen Cortez WPtel: [facility] [phone] [facility] (15 min) Moderate 09/10/2015 Patient Education: Patient [...] Dr. Sanchez. 05/14/2015 Appointment: Elen Cortez WPtel[facility] [phone] [facility] (15 min) Moderate 05/14/2015 Patient Education: Patient Medication Summary Completed 05/14/2015 Patient Education: Hypertension Completed 05/14/2015 Care Plan: Referral Order SNOMED-CT : [id number] Ordered 05/14/2015 Patient Education: Patient Medication Summary Completed 03/01/2015 Appointment: Nurse Visit 02/28/2015 Patient Education: Patient Medication Summary Completed 02/28/2015 Patient Education: Patient Medication Summary Completed 02/27/2015 Appointment: Nurse Visit 02/26/2015 Patient Education: Patient Medication Summary Completed 02/26/2015 Appointment: Injection 02/25/2015 Patient Education: Patient Medication Summary Completed 02/25/2015 Patient Education: Patient Medication Summary Completed 02/21/2015 Care Plan: URINALYSIS NONAUTO W/[facility] : 61480-3 Ordered 02/21/2015 Visit Plan: Hypertension - well [...] pain symptoms. 02/11/2015 Appointment: Elen Cortez WPtel: [address] [place], [place] [address] New Patient 02/11/2015 Patient Education: Patient Medication [...]
--- OUTSIDE RECORDS SUMMARY | 2018-06-01 12:30 | XMS REPORT | CCD ---
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 Name Role Phone PP Unavailable CCM Unavailable Summary Purpose Interface Exchange Insurance Providers Payer name Policy type / Coverage type Covered democrat ID Effective Begin Date Effective End Date WPS Medicare Part B Medicare Part B [id number] Unknown [place] [employer] Life Insurance Medicare Part B [id number] Unknown Family history Mother Diagnosis Age At [...] spouses - 02/11/[address]: 012522376 Never smoker 02/11/2015 Alcohol history Unknown occasionally drinks alcohol 02/11/2015 Allergies, Adverse Reactions, Alerts Substance Reaction Codes Entered Date Inactivated Date Status CODEINE RxNorm: 2670 02/11/2015 No Inactive Date Active allergy Unknown 12/23/2016 No Inactive Date Active ciprofloxacin rash, RxNorm: 10291 02/26/2015 No Inactive Date Active hydrocodone Unknown [...] Start Date Stop Date Status Fill Instructions lisinopril 20 mg tablet RxNorm: 333272 TAKE 1 TABLET BY MOUTH TWICE DAILY 04/22/2018 09/18/2018 Active Generic For:*PRINIVIL 20 MG TABLET 04/22/2018 9:57:59 AM Singulair 10 mg tablet RxNorm: 797420 1 Tablet(s) PO QHS 201805/21/2018 Active levocetirizine 5 mg tablet RxNorm: 750560 1 Tablet(s) PO daily 04/22/2018 05/21/2018 Active levocetirizine 5 mg tablet RxNorm: 163442 1 Tablet(s) PO daily 04/22/2018 04/21/2018 Inactive Singulair 10 mg tablet RxNorm: 357923 1 Tablet(s) PO QHS 201804/21/2018 Inactive ceftriaxone 500 mg solution for injection RxNorm: 8055566 Inj 04/08/2018 04/08/2018 Inactive ceftriaxone 500 mg solution for injection RxNorm: 5407758 Inj 04/07/2018 04/07/2018 Inactive ceftriaxone 500 mg solution for injection RxNorm: 1019941 Inj 04/06/2018 04/06/2018 Inactive ketorolac 60 mg/2 mL intramuscular solution RxNorm: 1357773 Milliliter(s) IM 04/05/2018 04/05/2018 Inactive ceftriaxone 500 mg solution for injection RxNorm: 8882834 Inj 04/05/2018 04/05/2018 Inactive ondansetron 4 mg disintegrating tablet RxNorm: 759544 1 Tablet(s) PO TID as needed nausea 04/04/2018 No Stop Date Active ketorolac 30 mg/mL injection solution RxNorm: 397415 2 Milliliter(s) Inj 04/04/2018 04/04/2018 Inactive ceftriaxone 500 mg solution for injection RxNorm: 3058524 Inj 04/04/2018 04/04/2018 Inactive nystatin 100,000 unit/mL oral suspension RxNorm: 033497 4 Milliliter(s) PO QID 04/01/2018 04/05/2018 Inactive doxycycline hyclate 100 mg tablet RxNorm: 7634839 1 Tablet(s) PO BID 04/01/2018 04/10/2018 Inactive prednisone 10 mg tablet RxNorm: 233332 1 Tablet(s) PO UD 6 pills on day 1 and 2 and then decrease by one pill every other day until prescription is done 03/24/2018 No Stop Date Active amoxicillin 500 mg capsule RxNorm: 094406 1 Capsule(s) PO TID 03/24/2018 04/02/2018 Inactive metoprolol succinate ER 50 mg tablet,extended release 24 hr RxNorm: 620297 Tablet (s) TAKE 1 TABLET BY MOUTH DAILY 03/21/2018 10/16/2018 Active PLEASE SEND REFILL REQUESTS ELECTRONICALLY!! Synthroid 88 mcg tablet RxNorm: 458117 TAKE 1 TABLET BY MOUTH DAILY 03/08/2018 08/04/2018 Active 03/07/2018 11:21:21 AM pravastatin 80 mg tablet RxNorm: 271322 Tablet(s) 1 Tablet(s) PO daily 03/01/2018 02/23/2019 Active Kenalog 40 mg/mL suspension for injection RxNorm: 1456034 Milliliter(s) Inj 12/24/2017 12/24/2017 Inactive cetirizine 10 mg tablet RxNorm: 7651122 TAKE 1 TABLET BY MOUTH DAILY 12/21/2017 04/19/2018 Inactive Generic For:*ZYRTEC 10 MG TABLET 12/21/2017 10:08:05 AM Synthroid 88 mcg tablet RxNorm: 145833 TAKE 1 TABLET BY MOUTH DAILY 12/07/2017 03/06/2018 Inactive 12/06/2017 11:46:49 AM Lipitor 80 mg tablet RxNorm: 040551 1 Tablet(s) PO daily 201702/28/2018 Inactive pravastatin 80 mg tablet RxNorm: 155428 1 Tablet(s) PO daily 11/29/2017 Inactive Lipitor 80 mg tablet RxNorm: 022444 1 Tablet(s) PO daily 201711/28/2017 Inactive lisinopril 20 mg tablet RxNorm: 528367 TAKE 1 TABLET BY MOUTH TWICE DAILY 11/23/2017 04/21/2018 Inactive Generic For:*PRINIVIL 20 MG TABLET 11/23/2017 11:29 :44 AM Macrobid 100 mg capsule RxNorm: 943289 1 Capsule(s) PO BID 06/201711/25/2017 Inactive Macrobid 100 mg capsule RxNorm: 187270 1 Capsule(s) PO BID 06/201711/18/2017 Inactive Lomotil 2.5 mg-0.025 mg tablet RxNorm: 1144020 1 -2 Tablet(s) PO TID as needed 11/19/2017 11/25/2017 Inactive Lomotil 2.5 mg-0.025 mg tablet RxNorm: 9870191 1 -2 Tablet(s) PO TID as needed 11/19/2017 11/18/2017 Inactive Pyridium 200 mg tablet RxNorm: 6212930 1 Tablet(s) PO TID as needed 11/18/2017 11/22/2017 Inactive Augmentin 500 mg-125 mg tablet RxNorm: 086217 1 Tablet(s) PO TID 11/18/2017 11/27/2017 Inactive Keflex 500 mg capsule RxNorm: 104149 1 Capsule(s) PO TID 201711/09/2017 Inactive Denavir 1 % topical cream RxNorm: 384604 1 TOP TID as needed cold sores 11/01/2017 01/29/2018 Inactive Denavir 1 % topical cream RxNorm: 695197 1 TOP TID as needed cold sores 11/01/2017 10/31/2017 Inactive Synthroid 88 mcg tablet RxNorm: 506633 TAKE 1 TABLET BY MOUTH DAILY 09/29/2017 11/27/2017 Inactive 09/29/2017 12:58:07 PM pravastatin 80 mg tablet RxNorm: 384723 1 Tablet(s) PO daily 08/30/2017 Inactive pravastatin 80 mg tablet RxNorm: 841875 1 Tablet(s) PO daily 11/28/2017 Inactive Synthroid 88 mcg tablet RxNorm: 069415 TAKE 1 TABLET BY MOUTH DAILY 08/30/2017 09/28/2017 Inactive 08/30/2017 10:53:26 AM metoprolol succinate ER 50 mg tablet,extended release 24 hr RxNorm: 721781 Tablet (s) TAKE 1 TABLET BY MOUTH DAILY 08/17/2017 03/14/2018 Inactive PLEASE SEND REFILL REQUESTS ELECTRONICALLY!! lisinopril 20 mg tablet RxNorm: 541846 TAKE 1 TABLET BY MOUTH TWICE DAILY 06/18/2017 11/14/2017 Inactive Generic For:*PRINIVIL 20 MG TABLET 06/18/2017 1:31: 00 PM Synthroid 88 mcg tablet RxNorm: 334142 TAKE 1 TABLET BY MOUTH DAILY 05/24/2017 08/21/2017 Inactive 05/24/2017 2:13:21 PM cetirizine 10 mg tablet RxNorm: 9212160 1 Tablet(s) PO daily 12/12/2017 Inactive Zithromax Z-Russell 250 mg capsule RxNorm: 836624 1 Capsule(s) PO 04/02/2017 04/05/2017 Inactive Zithromax Z-Russell 250 mg tablet RxNorm: 017038 1 Tablet(s) PO 04/01/2017 Inactive Zithromax Z-Russell 250 mg capsule RxNorm: 108600 1 Capsule(s) PO 04/02/2017 04/01/2017 Inactive Zithromax Z-Russell 250 mg tablet RxNorm: 264785 1 Tablet(s) PO 04/06/2017 Inactive Ventolin HFA 90 mcg/actuation aerosol inhaler RxNorm: 869401 2 INH QID as needed - for the first 3 days inhale at least two puffs three times daily, then use as needed for shortness of breath 04/01/2017 04/30/2017 Inactive Keflex 500 mg capsule RxNorm: 093837 1 Capsule(s) PO TID 201604/01/2017 Inactive meclizine 25 mg tablet RxNorm: 901480 1 Tablet(s) PO Q6 PRN 1 Tablet(s) PO Q6 PRN 03/25/2017 No Stop Date Active dizziness meclizine 25 mg tablet RxNorm: 317012 Tablet(s) 1 Tablet(s) PO Q6 PRN 03/25/2017 03/24/2017 Inactive dizziness Kenalog 40 mg/mL suspension for injection RxNorm: 4700323 1 Milliliter(s) Inj 03/25/2017 03/25/2017 Inactive meclizine 25 mg tablet RxNorm: 217293 1 Tablet(s) PO Q6 PRN 03/24/2017 Inactive dizziness lisinopril 20 mg tablet RxNorm: 096583 1 Tablet(s) PO BID 01/1506/13/2017 Inactive metoprolol succinate ER 50 mg tablet,extended release 24 hr RxNorm: 992756 TAKE 1 TABLET BY MOUTH DAILY 01/07/20172017 Inactive Generic For:TOPROL XL 50MG TAB 01/07/2017 12:38:23 PM Synthroid 88 mcg tablet RxNorm: 078383 TAKE 1 TABLET BY MOUTH DAILY 12/25/2016 05/23/2017 Inactive 12/25/2016 9:47:08 AM Zithromax Z-Russell 250 mg tablet RxNorm: 429930 Tablet(s) PO UD 03/24/2017 Inactive meclizine 25 mg tablet RxNorm: 518643 1 Tablet(s) PO Q6 PRN 12/20/2016 Inactive dizziness Kenalog 40 mg/mL suspension for injection RxNorm: 5018122 Milliliter(s) Inj 12/08/2016 12/08/2016 Inactive meloxicam 15 mg tablet RxNorm: 887523 1 Tablet(s) PO daily 12/20/2016 Inactive cetirizine 10 mg tablet RxNorm: 5743521 1 Tablet(s) PO daily 05/16/2017 Inactive pravastatin 40 mg tablet RxNorm: 985164 1 Tablet(s) PO BID 07/201608/30/2017 Inactive Cancel 80 mg tab lisinopril 20 mg tablet RxNorm: 972977 1 Tablet(s) PO BID 08/1212/22/2016 Inactive Synthroid 88 mcg tablet RxNorm: 691991 1 Tablet(s) PO TAKE ONE (1) TABLET BY MOUTH DAILY 07/28/2016 12/24/2016 Inactive decrease dose hydralazine 25 mg tablet RxNorm: 095930 1 Tablet(s) PO TID as needed for Systolic blood pressure over 170 07/06/20162016 Inactive lisinopril 20 mg tablet RxNorm: 931488 1 Tablet(s) PO BID to replace your other lisinopril dose 07/06/2016 08/04/2016 Inactive lisinopril 10 mg tablet RxNorm: 771947 TAKE ONE TABLET BY MOUTH TWICE DAILY 06/10/2016 08/11/2016 Inactive Generic For:ZESTRIL 10 MG TABLET 06/09/2016 12:58: 50 PM triamcinolone acetonide 0.1 % topical cream RxNorm: 6499150 1 Application TOP TID as needed 06/01/2016 No Stop Date Active nystatin 100,000 unit/gram topical cream RxNorm: 308239 1 Gram(s) TOP TID as needed 06/01/2016 No Stop Date Active metoprolol succinate ER 50 mg tablet,extended release 24 hr RxNorm: 221526 1 Tablet(s) PO daily 05/26/2016 12/21/2016 Inactive cetirizine 10 mg tablet RxNorm: 6886943 1 Tablet(s) PO daily 10/18/2016 Inactive Synthroid 88 mcg tablet RxNorm: 692930 1 Tablet(s) PO TAKE ONE (1) TABLET BY MOUTH DAILY 03/06/2016 03/07/2018 Inactive Brand name only! Synthroid 88 mcg tablet RxNorm: 448080 1 Tablet(s) PO TAKE ONE (1) TABLET BY MOUTH DAILY 03/04/2016 03/05/2016 Inactive decrease dose cetirizine 10 mg tablet RxNorm: 2049714 1 Tablet(s) PO daily 03/22/2016 Inactive amoxicillin 500 mg capsule RxNorm: 423385 1 Capsule(s) PO TID 02/27/2016 03/04/2016 Inactive lisinopril 10 mg tablet RxNorm: 905198 TAKE ONE TABLET BY MOUTH TWICE DAILY 02/06/2016 06/04/2016 Inactive Generic For:ZESTRIL 10 MG TABLET 02/06/2016 12:16: 38 PM Synthroid 100 mcg tablet RxNorm: 109381 TAKE ONE (1) TABLET BY MOUTH DAILY 01/03/2016 03/03/2016 Inactive 01/03/2016 10:35:14 AM N O T I C E Last quantity doesn't match original quantity lisinopril 10 mg tablet RxNorm: 097077 1 Tablet(s) PO BID 10/0301/31/2016 Inactive Synthroid 100 mcg tablet RxNorm: 459318 1 Tablet(s) PO daily 01/02/2016 Inactive metoprolol succinate ER 50 mg tablet,extended release 24 hr RxNorm: 483920 1 Tablet(s) PO daily 10/04/2015 04/30/2016 Inactive Tylenol Arthritis 650 mg tablet,extended release RxNorm: 7326800 2 Tablet(s) PO TID 09/10/2015 No Stop Date Active metoprolol succinate ER 50 mg tablet,extended release 24 hr RxNorm: 664602 1 Tablet(s) PO daily 09/05/2015 10/03/2015 Inactive pravastatin 80 mg tablet RxNorm: 768091 1 Tablet(s) PO QHS 08/30/2015 Inactive pravastatin 40 mg tablet RxNorm: 823746 1 Tablet(s) PO BID 08/29/2015 Inactive Cancel 80 mg tab pravastatin 40 mg tablet RxNorm: 375125 1 Tablet(s) PO BID 08/19/2016 Inactive Cancel 80 mg tab lisinopril 10 mg tablet RxNorm: 977474 1 Tablet(s) PO BID 06/1308/11/2016 Inactive lisinopril 10 mg tablet RxNorm: 323777 1 Tablet(s) PO BID 06/1310/03/2015 Inactive Synthroid 100 mcg tablet RxNorm: 461680 1 Tablet(s) PO daily 10/03/2015 Inactive ceftriaxone 1 gram solution for injection RxNorm: 7009730 Inj 03/01/2015 03/01/2015 Inactive ceftriaxone 1 gram solution for injection RxNorm: 9498809 Inj 02/28/2015 02/28/2015 Inactive ceftriaxone 1 gram solution for injection RxNorm: 8407757 Inj 02/27/2015 02/27/2015 Inactive ceftriaxone 1 gram solution for injection RxNorm: 2794015 Inj 02/26/2015 02/26/2015 Inactive ceftriaxone 1 gram solution for injection RxNorm: 6335050 Inj 02/25/2015 02/25/2015 Inactive phenazopyridine 200 mg tablet RxNorm: 9693661 1 Tablet(s) PO Q8 02/21/2015 02/20/2015 Inactive Cipro 500 mg tablet RxNorm: 323746 1 Tablet(s) PO BID 201402/20/2015 Inactive phenazopyridine 200 mg tablet RxNorm: 2613426 1 Tablet(s) PO Q8 02/21/2015 02/25/2015 Inactive Cipro 500 mg tablet RxNorm: 119363 1 Tablet(s) PO BID 201402/27/2015 Inactive lisinopril 10 mg tablet RxNorm: 828568 1 Tablet(s) PO BID 02/1406/12/2015 Inactive metoprolol succinate ER 50 mg tablet,extended release 24 hr RxNorm: 808955 3/4 Tablet(s) PO daily 02/11/2015 09/04/2015 Inactive Voltaren 1 % topical gel RxNorm: 139606 2 Gram(s) TOP QID use this on affected joints up to four times daily. 02/11/2015 03/12/2015 Inactive Probiotic oral RxNorm : 6205 oral No Start Date Active aspirin 81 mg tablet RxNorm: 904226 1 Tablet(s) PO daily No Start Date Active Super B-Complex tablet RxNorm: 1 Tablet(s) PO No Start Date Active Flonase Allergy Relief 50 mcg/actuation nasal spray, suspension RxNorm: 1681332 1 [place] NASAL BID No Start Date Active Super-D3+ oral RxNorm : oral No Start Date Active Prilosec OTC 20 mg tablet,delayed release RxNorm: 417395 2 Tablet(s) PO QAM No Start Date Active Flonase Allergy Relief 50 mcg/actuation nasal spray, suspension RxNorm: 9329472 1 [place] NASAL as needed No Start Date Active Move Free Ultra 40 mg-10 mg-3.3 mg tablet RxNorm: 1 Tablet(s) PO daily No Start Date Active metoprolol tartrate 50 mg tablet RxNorm: 336961 1 Tablet(s) PO daily No Start Date 02/10/2015 Inactive lisinopril 10 mg tablet RxNorm: 785057 1 Tablet(s) PO BID No Start Date 02/13/2015 Inactive pravastatin 80 mg tablet RxNorm: 092700 1 Tablet(s) PO daily No Start Date 08/29/2015 Inactive Synthroid 100 mcg tablet RxNorm: 227369 1 Tablet(s) PO daily No Start Date 06/09/2015 Inactive lisinopril 40 mg tablet RxNorm: 275713 1 Tablet(s) PO BID No Start Date 02/28/2018 Inactive Tylenol Arthritis 650 mg tablet,extended release RxNorm: 5454456 4 Tablet(s) PO daily No Start Date 09/09/2015 Inactive Medication Administered Medication Codes Instructions Start Date Status ceftriaxone 500 mg solution for injection RxNorm: 9488368 04/08/2018 No longer Active ceftriaxone 500 mg solution for injection RxNorm: 8077500 04/07/2018 No longer Active ceftriaxone 500 mg solution for injection RxNorm: 1807489 04/06/2018 No longer Active ceftriaxone 500 mg solution for injection RxNorm: 0129553 04/05/2018 No longer Active ketorolac 60 mg/2 mL intramuscular solution RxNorm: 0335603 Milliliter 04/05/2018 No longer Active ceftriaxone 500 mg solution for injection RxNorm: 2825662 04/04/2018 No longer Active ketorolac 30 mg/mL injection solution RxNorm: 518601 2Milliliter 04/04/2018 No longer Active Kenalog 40 mg/mL suspension for injection RxNorm: 9117779 Milliliter 12/24/2017 No longer Active Kenalog 40 mg/mL suspension for injection RxNorm: 9944244 1Milliliter 03/25/2017 No longer Active Kenalog 40 mg/mL suspension for injection RxNorm: 2077852 Milliliter 12/08/2016 No longer Active ceftriaxone 1 gram solution for injection RxNorm: 2182035 03/01/2015 No longer Active ceftriaxone 1 gram solution for injection RxNorm: 6374701 02/28/2015 No longer Active ceftriaxone 1 gram solution for injection RxNorm: 1142986 02/27/2015 No longer Active ceftriaxone 1 gram solution for injection RxNorm: 7755226 02/26/2015 No longer Active ceftriaxone 1 gram solution for injection RxNorm: 2662120 02/25/2015 No longer Active Immunizations Vaccine Codes [...] Item Item Code Result Date Free T4 Rxu603 FREE T4 1.07 ng/dL 04/04/2018 Tsh Ord6 TSH (3rd IS) 1.93 uIU/mL 04/04/2018 Urine Culture Ucult Preliminary NO Growth Day 1 03/28/2018 Urine Culture Ucult Complete NO Growth Day 2 03/28/2018 Urine Culture Ucult Complete >100,000 col/ml aerobic growth sent to ref lab 11/19/2017 B12 Htn508 B12 712.00 pg/ml 09/28/2017 C-Reactive Protein Qnt Crqnt CRP 0.1 mg/dl 09/23/2017 Comp Metabolic Unr665 NA 139 mEq/L 09/23/2017 Comp Metabolic Qeu954 K 4.8 mEq/L 09/23/2017 Comp Metabolic Lri847 CL 104 mEq/L 09/23/2017 Comp Metabolic Fwh759 CO2 28.0 mEq/L 09/23/2017 Comp Metabolic Wde021 ANION GAP 12 09/23/2017 Comp Metabolic Yry446 GLUCOSE 92 mg/dL 09/23/2017 Comp Metabolic Ysn648 Creat 0.7 mg/dL 09/23/2017 Comp Metabolic Wmb539 eGFR 91 ml/min/1.73m2 09/23/2017 Comp Metabolic Mfh151 BUN 11 mg/dL 09/23/2017 Comp Metabolic Pkz506 B/C Ratio 16.4 Ratio 09/23/2017 Comp Metabolic Pla922 CALCIUM 9.0 mg/dL 09/23/2017 Comp Metabolic Dbe897 ALK PHOS 76 U/L 09/23/2017 Comp Metabolic Wrv584 AST(SGOT) 24 U/L 09/23/2017 Comp Metabolic Rub299 ALT(SGPT) 21 U/L 09/23/2017 Comp Metabolic Yzd585 BILI T 0.3 mg/dL 09/23/2017 Comp Metabolic Umj553 ALBUMIN 4.1 g/dL 09/23/2017 Comp Metabolic Zgp200 TPRO 6.2 g/dL 09/23/2017 Comp Metabolic Ptp282 GLOB 2.1 g/dL 09/23/2017 Comp Metabolic Epe639 A/G Ratio 1.9 Ratio 09/23/2017 Comp Metabolic Avo723 Osmo 277 mOsmo 09/23/2017 Sed Rate Ord21 ESR 3 mm/hr 09/22/2017 Vitamin D 25 Oh Bne5447 VITAMIN D, 25 HYDROXY 78.79 ng/mL Tsh [...] 97.1 fl 09/22/2017 Cbc With Differential Ord2 [place]% 10.5 % 09/22/2017 Cbc With Differential Ord2 [...] 2.37 K/ul 09/22/2017 Cbc With Differential Ord2 [place] ABS# 0.9 K/ul 09/22/2017 Cbc With Differential Ord2 Eos ABS# 0.2 K/ul 09/22/2017 Cbc With Differential Ord2 Baso ABS# 0.0 K/ul 09/22/2017 Free T4 Fan015 FREE T4 0.99 ng/dL 09/22/2017 %Hba1C Gqv292 % HbA1c 07990-5 6.0 % 12/10/2016 %Hba1C Eyl090 Gluc Ave 126 mg/dL 12/10/2016 Tsh Ord6 hTSH II 0.89 uIU/mL 12/09/2016 Free T4 Xep776 FREE T4 0.99 ng/dL 12/09/2016 Comp Metabolic Kba851 NA 138 mEq/L 12/09/2016 Comp Metabolic Mmj243 K 5.2 mEq/L 12/09/2016 Comp Metabolic Chl335 CL 104 mEq/L 12/09/2016 Comp Metabolic Tpp693 CO2 29.0 mEq/L 12/09/2016 Comp Metabolic Wpn581 ANION GAP 10 12/09/2016 Comp Metabolic Gkm885 GLUCOSE 135 mg/dL 12/09/2016 Comp Metabolic Rya941 Creat 0.8 mg/dL 12/09/2016 Comp Metabolic Xoq911 eGFR 79 ml/min/1.73m2 12/09/2016 Comp Metabolic Cpr993 BUN 18 mg/dL 12/09/2016 Comp Metabolic Slb461 B/C Ratio 23.7 Ratio 12/09/2016 Comp Metabolic Toj850 CALCIUM 9.5 mg/dL 12/09/2016 Comp Metabolic Xbb286 ALK PHOS 73 U/L 12/09/2016 Comp Metabolic Rkr790 AST(SGOT) 24 U/L 12/09/2016 Comp Metabolic Nfg856 ALT(SGPT) 20 U/L 12/09/2016 Comp Metabolic Uxu641 BILI T 0.3 mg/dL 12/09/2016 Comp Metabolic Rpu422 ALBUMIN 4.3 g/dL 12/09/2016 Comp Metabolic Vwp523 TPRO 6.4 g/dL 12/09/2016 Comp Metabolic Ddt862 GLOB 2.1 g/dL 12/09/2016 Comp Metabolic Vvp219 A/G Ratio 2.0 Ratio 12/09/2016 Comp Metabolic Gan842 Osmo 280 mOsmo 12/09/2016 Cbc With Differential [...] 31.3 pg 12/09/2016 Cbc With Differential Ord2 [place]% 6.5 % 12/09/2016 Cbc With Differential Ord2 [...] 1.84 K/ul 12/09/2016 Cbc With Differential Ord2 [place] ABS# 0.6 K/ul 12/09/2016 Cbc With Differential Ord2 Eos ABS# 0.1 K/ul 12/09/2016 Cbc With Differential Ord2 Baso ABS# 0.1 K/ul 12/09/2016 Tsh Ord6 hTSH II 1.19 uIU/mL 09/02/2016 Free T4 Qsu641 FREE T4 0.97 ng/dL 09/02/2016 Comp Metabolic Ota955 NA 137 mEq/L 06/01/2016 Comp Metabolic Vfz278 K 4.1 mEq/L 06/01/2016 Comp Metabolic Oyq813 CL 104 mEq/L 06/01/2016 Comp Metabolic Qlw147 CO2 25.0 mEq/L 06/01/2016 Comp Metabolic Bjh591 ANION GAP 12 06/01/2016 Comp Metabolic Bbh526 GLUCOSE 108 mg/dL 06/01/2016 Comp Metabolic Hee637 Creat 0.8 mg/dL 06/01/2016 Comp Metabolic Pkk218 eGFR 80 ml/min/1.73m2 06/01/2016 Comp Metabolic Whh658 BUN 15 mg/dL 06/01/2016 Comp Metabolic Lqb246 B/C Ratio 20.0 Ratio 06/01/2016 Comp Metabolic Wft858 CALCIUM 9.1 mg/dL 06/01/2016 Comp Metabolic Svf850 ALK PHOS 89 U/L 06/01/2016 Comp Metabolic Wtb627 AST(SGOT) 25 U/L 06/01/2016 Comp Metabolic Ztq712 ALT(SGPT) 20 U/L 06/01/2016 Comp Metabolic Zbr425 BILI T 0.3 mg/dL 06/01/2016 Comp Metabolic Gax508 ALBUMIN 4.2 g/dL 06/01/2016 Comp Metabolic Mpv240 TPRO 6.2 g/dL 06/01/2016 Comp Metabolic Wfn233 GLOB 2.0 g/dL 06/01/2016 Comp Metabolic Aqx842 A/G Ratio 2.1 Ratio 06/01/2016 Comp Metabolic Uoc009 Osmo 275 mOsmo 06/01/2016 Free T4 Yzd780 FREE T4 0.94 ng/dL 06/01/2016 Tsh Ord6 [...] 31.1 pg 06/01/2016 Cbc With Differential Ord2 [place]% 8.4 % 06/01/2016 Cbc With Differential Ord2 [...] 2.96 K/ul 06/01/2016 Cbc With Differential Ord2 [place] ABS# 0.6 K/ul 06/01/2016 Cbc With Differential [...] 31.3 pg 02/27/2016 Cbc With Differential Ord2 [place]% 10.0 % 02/27/2016 Cbc With Differential Ord2 [...] 2.28 K/ul 02/27/2016 Cbc With Differential Ord2 [place] ABS# 0.9 K/ul 02/27/2016 Cbc With Differential Ord2 Eos ABS# 0.3 K/ul 02/27/2016 Cbc With Differential Ord2 Baso ABS# 0.1 K/ul 02/27/2016 Tsh Ord6 hTSH II 0.18 uIU/mL 02/27/2016 Free T4 Teh762 FREE T4 1.17 ng/dL 02/27/2016 Comp Metabolic Bpq568 NA 135 mEq/L 02/27/2016 Comp Metabolic Uak454 K 5.2 mEq/L 02/27/2016 Comp Metabolic Sdx199 CL 102 mEq/L 02/27/2016 Comp Metabolic Gih628 CO2 27.0 mEq/L 02/27/2016 Comp Metabolic Uok136 ANION GAP 11 02/27/2016 Comp Metabolic Dkl812 GLUCOSE 93 mg/dL 02/27/2016 Comp Metabolic Frx985 Creat 0.7 mg/dL 02/27/2016 Comp Metabolic Zvf548 eGFR 91 ml/min/1.73m2 02/27/2016 Comp Metabolic Gvd195 BUN 14 mg/dL 02/27/2016 Comp Metabolic Ajp231 B/C Ratio 20.9 Ratio 02/27/2016 Comp Metabolic Ffd569 CALCIUM 9.4 mg/dL 02/27/2016 Comp Metabolic Rdu027 ALK PHOS 100 U/L 02/27/2016 Comp Metabolic Ken262 AST(SGOT) 23 U/L 02/27/2016 Comp Metabolic Ifd192 ALT(SGPT) 24 U/L 02/27/2016 Comp Metabolic Dfs295 BILI T 0.2 mg/dL 02/27/2016 Comp Metabolic Xlm719 ALBUMIN 4.3 g/dL 02/27/2016 Comp Metabolic Xws418 TPRO 6.3 g/dL 02/27/2016 Comp Metabolic Qsa332 GLOB 2.1 g/dL 02/27/2016 Comp Metabolic Eic754 A/G Ratio 2.1 Ratio 02/27/2016 Comp Metabolic Bof698 Osmo 270 mOsmo 02/27/2016 Free T4 Nww185 FREE T4 1.03 ng/dL 05/10/2015 Comp Metabolic Qba667 NA 137 mEq/L 05/10/2015 Comp Metabolic Lpd414 K 4.4 mEq/L 05/10/2015 Comp Metabolic Nsw381 CL 102 mEq/L 05/10/2015 Comp Metabolic Nog210 CO2 28.0 mEq/L 05/10/2015 Comp Metabolic Xuf767 ANION GAP 11 05/10/2015 Comp Metabolic Yrv998 GLUCOSE 108 mg/dL 05/10/2015 Comp Metabolic Nua487 Creat 0.7 mg/dL 05/10/2015 Comp Metabolic Lzu314 eGFR 86 ml/min/1.73m2 05/10/2015 Comp Metabolic Jws296 BUN 13 mg/dL 05/10/2015 Comp Metabolic Ccb702 B/C Ratio 18.3 Ratio 05/10/2015 Comp Metabolic Dlj312 CALCIUM 9.4 mg/dL 05/10/2015 Comp Metabolic Bxn016 ALK PHOS 94 U/L 05/10/2015 Comp Metabolic Iai090 AST(SGOT) 22 U/L 05/10/2015 Comp Metabolic Owh026 ALT(SGPT) 21 U/L 05/10/2015 Comp Metabolic Ndu664 BILI T 0.3 mg/dL 05/10/2015 Comp Metabolic Fue469 ALBUMIN 3.9 g/dL 05/10/2015 Comp Metabolic Ibc135 TPRO 6.1 g/dL 05/10/2015 Comp Metabolic Sym551 GLOB 2.2 g/dL 05/10/2015 Comp Metabolic Fkf583 A/G Ratio 1.7 Ratio 05/10/2015 Comp Metabolic Qqx038 Osmo 274 mOsmo 05/10/2015 Tsh Ord6 hTSH [...] 29.4 pg 05/10/2015 Cbc With Differential Ord2 [place]% 9.0 % 05/10/2015 Cbc With Differential Ord2 [...] 2.14 K/ul 05/10/2015 Cbc With Differential Ord2 [place] ABS# 0.5 K/ul 05/10/2015 Cbc With Differential [...] Ord30 C/HDL 3.8 Ratio 05/10/2015 Culture Urine [id number] URINE CULTURE SEE NOTES 02/25/2015 Culture Urine [id number] Continued Results 02/25/2015 Urine Culture Ucult Complete >100,000 col/ml aerobic growth sent to ref lab 02/22/2015 Free T4 Omr405 FREE T4 1.16 ng/dL 02/11/2015 Tsh Ord6 [...] normal 04/21/2018 None Full Exam - General 1995 Eyes conjunctiva /eyelids Overall: cornea clear 04/21/2018 [...] Procedure Codes Date THER/PROPH/DIAG INJ SC/IM CPT-4: 16317 04/08/2018 ROCEPHIN, PER 250 MG CPT-4: J0696 04/08/2018 THER/PROPH/DIAG INJ SC/IM CPT-4: 35145 04/07/2018 ROCEPHIN, PER 250 MG CPT-4: J0696 04/07/2018 THER/PROPH/DIAG INJ SC/IM CPT-4: 09825 04/06/2018 ROCEPHIN, PER 250 MG CPT-4: J0696 04/06/2018 THER/PROPH/DIAG INJ SC/IM CPT-4: 74695 04/05/2018 ROCEPHIN, PER 250 MG CPT-4: J0696 04/05/2018 KETOROLAC TROMETHAMINE INJ CPT-4: J1885 04/05/2018 THER/PROPH/DIAG INJ SC/IM CPT-4: 13128 04/04/2018 ROCEPHIN, PER 250 MG CPT-4: J0696 04/04/2018 KETOROLAC TROMETHAMINE INJ CPT-4: J1885 04/04/2018 URINALYSIS NONAUTO W/O SCOPE CPT-4: 64299 03/24/2018 PPPS, SUBSEQ VISIT CPT -4: G0439 12/24/2017 THER/PROPH/DIAG INJ SC/IM CPT-4: 68659 12/24/2017 TRIAMCINOLONE ACET INJ NOS CPT-4: J3301 12/24/2017 THER/PROPH/DIAG INJ SC/IM CPT-4: 50723 11/18/2017 ROCEPHIN, PER 250 MG CPT-4: J0696 11/18/2017 PRESCRIP TRANSMIT VIA ERX SY CPT-4: G8553 04/01/2017 TRIAMCINOLONE ACET INJ NOS CPT-4: J3301 03/25/2017 PPPS, SUBSEQ VISIT CPT -4: G0439 12/23/2016 THER/PROPH/DIAG INJ SC/IM CPT-4: 74219 12/08/2016 TRIAMCINOLONE ACET INJ NOS CPT-4: J3301 12/08/2016 PRESCRIP TRANSMIT VIA ERX SY CPT-4: G8553 12/08/2016 PRESCRIP TRANSMIT VIA ERX SY CPT-4: G8553 11/30/2016 URINALYSIS NONAUTO W/O SCOPE CPT-4: 95619 07/08/2016 PRESCRIP TRANSMIT VIA ERX SY CPT-4: G8553 06/01/2016 PRESCRIP TRANSMIT VIA ERX SY CPT-4: G8553 02/27/2016 THER/PROPH/DIAG INJ SC/IM CPT-4: 93889 03/01/2015 ROCEPHIN, PER 250 MG CPT-4: J0696 03/01/2015 THER/PROPH/DIAG INJ SC/IM CPT-4: 54969 02/28/2015 ROCEPHIN, PER 250 MG CPT-4: J0696 02/28/2015 THER/PROPH/DIAG INJ SC/IM CPT-4: 14612 02/27/2015 ROCEPHIN, PER 250 MG CPT-4: J0696 02/27/2015 THER/PROPH/DIAG INJ SC/IM CPT-4: 78808 02/26/2015 ROCEPHIN, PER 250 MG CPT-4: J0696 02/26/2015 THER/PROPH/DIAG INJ SC/IM CPT-4: 33547 02/25/2015 ROCEPHIN, PER 250 MG CPT-4: J0696 02/25/2015 URINALYSIS NONAUTO W/O SCOPE CPT-4: 54742 02/21/2015 Vital Signs Date Vital 04/21/2018 Blood [...] Code : 8480-6 BMI: 27.8 Code : 57074-0 Heart Rate 1 : 85 bpm Height: 5'3" SpO2: 96% Weight: 157 lbs 03/24/2018 Blood Pressure 1: 128/82 Code : 8480-6 BMI: 27.8 Code : 60076-4 Heart Rate 1 : 84 bpm Height: 5'3" SpO2: 97% Weight: 157 lbs 03/01/2018 Blood Pressure 1: 136/70 Code : 8480-6 BMI: 27.8 Code : 83371-8 Heart Rate 1 : 70 bpm Height: 5'3" SpO2: 96% Weight: 157 lbs 12/24/2017 Height: Weight: 11/18/2017 Blood Pressure 1: 164/74 Code : 8480-6 BMI: 27.6 Code : 07635-0 Heart Rate 1 : 70 bpm Height: 5'3" SpO2: 96% Weight: 156 lbs 11/03/2017 Blood Pressure 1: 118/72 Code : 8480-6 BMI: 27.6 Code : 50058-9 Heart Rate 1 : 82 bpm Height: 5'3" SpO2: 96% Weight: 156 lbs 09/22/2017 Blood Pressure 1: 136/68 Code : 8480-6 BMI: 27.6 Code : 00978-1 Heart Rate 1 : 70 bpm Height: 5'3" SpO2: 97% Weight: 156 lbs 04/01/2017 Blood Pressure 1: 144/82 Code : 8480-6 Heart Rate 1: 68 bpm Height: 5'3" SpO2: 97% Weight: 03/25/2017 Blood Pressure 1: 116/70 Code : 8480-6 BMI: 26.7 Code : 04722-3 Heart Rate 1 : 67 bpm Height: 5'3" SpO2: 98% Weight: 151 lbs 12/23/2016 BMI: 26.7 Code: 25629-1 Height: 5'3" Weight: 151 lbs 12/22/2016 Blood Pressure 1: 142/60 Code : 8480-6 BMI: 26.7 Code : 63261-4 Heart Rate 1 : 67 bpm Height: 5'3" SpO2: 98% Weight: 151 lbs 12/08/2016 Blood Pressure 1: 140/72 Code : 8480-6 Heart Rate 1: 72 bpm Height: 5'3" SpO2: 97% Weight: 11/30/2016 Blood Pressure 1: 128/80 Code : 8480-6 BMI: 26.7 Code : 54897-7 Heart Rate 1 : 63 bpm Height: 5'3" SpO2: 96% Weight: 151 lbs 09/28/2016 Blood Pressure 1: 130/80 Code : 8480-6 BMI: 27.1 Code : 66122-6 Heart Rate 1 : 80 bpm Height: 5'3" SpO2: 97% Weight: 153 lbs 07/06/2016 Blood Pressure 1: 162/72 Code : 8480-6 BMI: 27.6 Code : 15404-3 Heart Rate 1 : 72 bpm Height: 5'3" SpO2: 98% Weight: 156 lbs 06/01/2016 Blood Pressure 1: 122/66 Code : 8480-6 BMI: 27.5 Code : 98072-0 Heart Rate 1 : 73 bpm Height: 5'3" SpO2: 98% Weight: 155 lbs 8 oz 02/27/2016 Blood Pressure 1: 126/68 Code : 8480-6 BMI: 26.9 Code : 85368-7 Heart Rate 1 : 70 bpm Height: 5'3" SpO2: 98% Weight: 152 lbs 09/10/2015 Blood Pressure 1: 130/70 Code : 8480-6 BMI: 26.9 Code : 56131-0 Heart Rate 1 : 72 bpm Height: 5'3" SpO2: 97% Weight: 152 lbs 05/14/2015 Blood Pressure 1: 138/82 Code : 8480-6 BMI: 26.4 Code : 19865-3 Heart Rate 1 : 75 bpm Height: 5'3" SpO2: 98% Weight: 149 lbs 02/11/2015 Blood Pressure 1: 128/72 Code : 8480-6 BMI: 25.5 Code : 74938-3 Heart Rate 1 : 73 bpm Height: [...] data Encounters Encounter Performer Location Codes Date EST. PATIENT, LEVEL IV Diagnosis: Low back pain[ICD10: M54.5] Diagnosis: Essential (primary) hypertension[ICD10: I10] Diagnosis: Other fatigue[ICD10: R53.83] Diagnosis: Other malaise[ICD10: R53.81] Bridget Cortez MD, [facility] CPT-4 : 02062 04/21/2018 63357 EST. PATIENT, LEVEL III Diagnosis: Other fatigue[ICD10: R53.83] Diagnosis: Otalgia, right ear[ICD10: H92.01] Bridgte Cortez MD, [facility] CPT -4: 84771 04/13/2018 ([id number]) 32508 EST. PATIENT, LEVEL III Diagnosis: Essential (primary) hypertension[ICD10: I10] Diagnosis: Dysuria[ICD10: R30.0] Diagnosis: Nausea[ICD10: R11.0] Diagnosis: Headache[ICD10: R51] Elen Cortez MD, [facility] CPT-4: 33683 04/04/2018 71171 EST. PATIENT, LEVEL III Diagnosis: Other acute sinusitis[ICD10: J01.80] Diagnosis: Dizziness and giddiness[ICD10: R42] Diagnosis: Dysuria[ICD10: R30.0] Diagnosis: Candidal stomatitis[ICD10: B37.0] Diagnosis: Essential (primary) hypertension[ICD10: I10] Diagnosis: Other fatigue[ICD10: R53.83] Diagnosis: Other malaise[ICD10: R53.81] Bridget Cortez MD, [facility] CPT-4 : 07915 04/01/2018 ([id number]) 29193 EST. 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 PATIENT, LEVEL IV Diagnosis: Otalgia, right ear[ICD10: H92.01] Diagnosis: Headache[ICD10: R51] Diagnosis: Other fatigue[ICD10: R53.83] Diagnosis: Abnormal findings on diagnostic imaging of other specified body structures[ICD10: R93.89] Elen Cortez MD, [facility] CPT-4: 20047 03/01/2018 19631 EST. PATIENT, LEVEL III Diagnosis: Acute cystitis with hematuria[ICD10: N30.01] Bridget Cortez MD, [facility] CPT-4: 86031 11/18/2017 96926 EST. PATIENT, LEVEL IV Diagnosis: Other acute sinusitis[ICD10: J01.80] Diagnosis: Otalgia, right ear[ICD10: H92.01] Bridget Cortez MD, [facility] CPT -4: 04034 11/03/2017 65115 EST. PATIENT, LEVEL III Diagnosis: Other fatigue[ICD10: R53.83] Diagnosis: Other malaise[ICD10: R53.81] Diagnosis: Pain in left knee[ICD10: M25.562] Diagnosis: Pain in right knee[ICD10: M25.561] Bridget Cortez MD, [facility] CPT-4: 18451 09/22/2017 ([id number]) 78703 EST. PATIENT, LEVEL III Diagnosis: Cough[ICD10: R05] Diagnosis: Acute bronchitis due to other specified organisms[ICD10: J20.8] Elen Cortez MD, [facility] CPT-4: 64155 04/01/2017 ([id number]) 81522 EST. PATIENT, LEVEL III Diagnosis: Otalgia, right ear[ICD10: H92.01] Diagnosis: Other allergic rhinitis[ICD10: J30.89] Shiela Cortez MD, [facility] CPT-4: 84206 03/25/2017 ([id number]) 96653 EST. PATIENT, LEVEL III Diagnosis: Benign paroxysmal vertigo, bilateral[ICD10: H81.13] Shiela Cortez MD, [facility] CPT-4: 55134 12/22/2016 ([id number]) 73661 EST. PATIENT, LEVEL IV Diagnosis: Benign paroxysmal vertigo, bilateral[ICD10: H81.13] Diagnosis: Other allergic rhinitis[ICD10: J30.89] Diagnosis: Hypothyroidism, unspecified[ICD10: E03.9] Shiela Cortez MD, [facility] CPT-4: 37963 12/08/2016 ([id number]) 31373 EST. PATIENT, LEVEL IV Diagnosis: Atrophy of thyroid (acquired)[ICD10: E03.4] Diagnosis: Essential (primary) hypertension[ICD10: I10] Diagnosis: Mixed hyperlipidemia[ICD10: E78.2] Elen Cortez MD, [facility] CPT-4: 80494 11/30/2016 56101 EST. PATIENT, LEVEL IV Diagnosis: Headache[ICD10: R51] Diagnosis: Other fatigue[ICD10: R53.83] Diagnosis: Dizziness and giddiness[ICD10: R42] Bridget Cortez MD, [facility] CPT-4: 29286 09/28/2016 60936 EST. PATIENT, LEVEL IV Diagnosis: Essential (primary) hypertension[ICD10: I10] Diagnosis: Headache[ICD10: R51] Bridget Cortez MD, [facility] CPT-4: 07870 07/06/2016 ([id number]) 65472 EST. PATIENT, LEVEL IV Diagnosis: Essential (primary) hypertension[ICD10: I10] Diagnosis: Atrophy of thyroid (acquired)[ICD10: E03.4] Diagnosis: Mixed hyperlipidemia[ICD10: E78.2] Elen Cortez MD, [facility] CPT-4: 47596 06/01/2016 77619 EST. PATIENT, LEVEL IV Diagnosis: Acute laryngopharyngitis[ICD10: J06.0] Diagnosis: Other allergic rhinitis[ICD10: J30.89] Diagnosis: Other specified hypothyroidism[ICD10: E03.8] Diagnosis: Other fatigue[ICD10: R53.83] Bridget Cortez MD, [facility] CPT-4 : 25835 02/27/2016 ([id number]) 04373 EST. PATIENT, LEVEL III Diagnosis: Essential (primary) hypertension[ICD10: I10] Diagnosis: Mixed hyperlipidemia[ICD10: E78.2] Elen Cortez MD, [facility] CPT-4: 95504 09/10/2015 ([id number]) 17554 EST. PATIENT, LEVEL IV Diagnosis: Essential (primary) hypertension[ICD10: I10] Diagnosis: Hypothyroidism, unspecified[ICD10: E03.9] Diagnosis: Unspecified osteoarthritis, unspecified site[ICD10: M19.90] [facility] CPT-4: 29782 05/14/2015 ([id number]) OFFICE VISIT, NEW - LEVEL 4 Diagnosis: Essential (primary) hypertension[ICD10: I10] Diagnosis: Hypothyroidism, unspecified[ICD10: E03.9] Diagnosis: Unspecified osteoarthritis, unspecified site[ICD10: M19.90] Elen Cortez MD , [facility] CPT-4: 08483 02/11/2015 Plan of Care Planned Activity Notes [...] or concerns. 04/21/2018 Appointment: Br[facility] Velazco [facility] (15 min) Moderate 04/21/2018 Patient Education: Patient Medication Summary Completed 04/21/2018 Patient Education: Back Pain Completed 04/21/2018 Appointment: Bridget Velazco [facility]Ptel: [facility] (15 min) Moderate 04/14/2018 Care Plan: Urine [...] refer to Dr. Saini. 04/13/2018 Appointment: Bridget Velazoc WPtel: [facility]5 [facility] (30 min) Complex 04/13/2018 Patient Education: Patient Medication Summary Completed 04/13/2018 Appointment: Nurse Visit 04/08/2018 Appointment: Bridget Velazco WPtel: [facility]5 [facility]6[address] (15 min) Moderate 04/08/2018 Patient Education: Patient Medication Summary Completed 04/08/2018 Appointment: Injection 04/07/2018 Patient Education: Patient Medication Summary Completed 04/07/2018 Appointment: Injection 04/06/2018 Patient Education: Patient Medication Summary Completed 04/06/2018 Appointment: Injection 04/05/2018 Appointment: Elen Cortez WPtel: [facility]5 [facility]6[address] (15 min) Moderate 04/05/2018 Patient Education: Patient [...] toradol today. 04/04/2018 Appointment: Elen Cortez WPtel: [facility]5 [facility] [place] (10 min) Simple 04/04/2018 Patient Education: Patient Medication Summary Completed 04/04/2018 Patient Education: Patient Medication Summary Completed 04/04/2018 Patient Education: Patient Medication Summary Completed 04/04/2018 Care Plan: Referral Order SNOMED-CT : [id number] Pending 04/04/2018 Visit Plan: Dysuria, dizziness, fatigue, [...] improvement. 04/01/2018 Appointment: [facility]azco [facility]Ptel[phone] [facility] (15 min) Moderate 04/01/2018 Patient Education: Patient Medication Summary Completed 04/01/2018 Visit Plan: Sinusitis - Pt has acute infection - pain in face, maxillary region, Pt informed to use decongestant, RX given to patient, sinus rinses also recommended. Call if symptoms do not show improvement. Dysuria - rx for antibiotic sent to pharmacy. 03/24/2018 Appointment: [phone] (15 min) Moderate 03/24/2018 Patient Education: Patient [...] improve. 03/01/2018 Appointment: [phone] [facility] (15 min) Moderate 03/01/2018 Patient Education: Patient [...] allergy spray. 12/24/2017 Appointment: [facility]azco [facility]el[facility] [phone] [facility] [facility] - Annual Wellness Visit 12/24/2017 Patient Education: Patient Medication Summary Completed 12/24/2017 Appointment: Br[facility] Velazco WPtel[facility] [phone] [facility] (15 min) Moderate 11/30/2017 Appointment: Lab [...] improve. 11/18/2017 Appointment: Bridget Velazco WPtel: [phone] [facility] (15 min) Moderate 11/18/2017 Patient Education: Patient Medication Summary Completed 11/18/2017 Visit Plan: Sinusitis - Pt has acute infection - pain in face, maxillary region, Pt informed to use decongestant, RX given to patient, sinus rinses also recommended. Call if symptoms do not show improvement. 11/03/2017 Appointment: Bridget Velazco WPtel: [phone] (15 min) Moderate 11/03/2017 Patient Education: [...] not improve. 09/22/2017 Appointment: Bridget Velazco WPtel: [phone] [facility]66[facility] (15 min) Moderate 09/22/2017 Patient Education: Patient Medication Summary Completed 09/22/2017 Visit Plan: Bronchitis - acute case of bronchitis identified. Pt has been given antibiotics, breathing treatments as appropriate, and pt has been instructed to call if symptoms are not improved, or if symptoms acutely worsen. 04/01/2017 Appointment: Elen Cortez WPtel: [phone] [facility]66[facility] (15 min) Moderate 04/01/2017 Patient Education: Patient [...] allergy spray. 03/25/2017 Appointment: Shiela Srivastava WPtel: [facility]3 [phone] (10 min) Simple 03/25/2017 Appointment: Elen Cortez WPtel: [facility] (15 min) Moderate 03/25/2017 Patient Education: Patient [...] care surrogate. 12/23/2016 Appointment: Bridget Velazco WPtel: [facility]0 [phone] [place] [address] - Annual Wellness Visit 12/23/2016 Patient Education: Patient Medication Summary Completed 12/23/2016 Visit Plan: Vertigo-discussed PT for vestibular exercises- patient wants to wait since symptoms are improving-continue anti histamine as directed-meclizine as needed 12/22/2016 Appointment: Shiela Srivastava WPtel: [facility]2 [phone] (30 min) Complex 12/22/2016 Patient Education: Patient [...] of control. 12/08/2016 Appointment: Shiela Srivastava WPtel: [phone] (30 min) [facility] 12/08/2016 Patient Education: Patient Medication Summary Completed [...] medications. 11/30/2016 Appointment: Elen Cortez WPtel: [phone] [facility] (15 min) Moderate 11/30/2016 Patient Education: Patient [...] concerns. 09/28/2016 Appointment: Bridget Velazco WPtel: [phone] [facility] (30 min) Complex 09/28/2016 Patient Education: Patient [...] acute concerns. 07/06/2016 Appointment: Bridget Velazco WPtel: [phone] [facility] (15 min) Moderate 07/06/2016 Patient Education: Patient [...] improving 06/01/2016 Appointment: [facility]el[phone] (15 min) Moderate 06/01/2016 Patient [...] Completed 09/27/2015 Care Plan: SCREENINGMAMMOGRAPHYDIGITAL LOINC : 24352-9 Pending 09/27/2015 Visit Plan: Hypertension - well [...] the colonoscopy 09/10/2015 Appointment: Elen Cortez [facility]Ptel: [phone] [facility] (15 min) Moderate 09/10/2015 Patient [...] Sanchez. 05/14/2015 Appointment: [facility] Cortez [facility]Ptel[phone] [facility] (15 min) Moderate 05/14/2015 Patient Education: Patient Medication Summary Completed 05/14/2015 Patient Education: Hypertension Completed 05/14/2015 Care Plan: Referral Order SNOMED-CT : [id number] Ordered 05/14/2015 Patient Education: Patient Medication Summary Completed 03/01/2015 Appointment: Nurse Visit 02/28/2015 Patient Education: Patient Medication Summary Completed 02/28/2015 Patient Education: Patient Medication Summary Completed 02/27/2015 Appointment: Nurse Visit 02/26/2015 Patient Education: Patient Medication Summary Completed 02/26/2015 Appointment: Injection 02/25/2015 Patient Education: Patient Medication Summary Completed 02/25/2015 Patient Education: Patient Medication Summary Completed 02/21/2015 Care Plan: URINALYSIS NONAUTO W/O SCOPE [facility] : 57052-6 Ordered 02/21/2015 Visit Plan: Hypertension - well [...] pain symptoms. 02/11/2015 Appointment: Elen Cortez WPtel: [address] [place] [address] [address] New Patient 02/11/2015 Patient Education: Patient Medication [...]
--- OUTSIDE RECORDS SUMMARY | 2018-06-01 12:34 | XMS REPORT | CCD ---
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 Name Role Phone PP Unavailable CCM Unavailable Summary Purpose Interface Exchange Insurance Providers Payer name Policy type / Coverage type Covered democrat ID Effective Begin Date Effective End Date WPS Medicare Part B Medicare Part B [id number] Unknown Iranian [employer] Life Insurance Medicare Part B [id number] Unknown Family history Mother Diagnosis Age At [...] spouses - 02/11/[address]: [id number] Never smoker 02/11/2015 Alcohol history Unknown occasionally drinks alcohol 02/11/2015 Allergies, Adverse Reactions, Alerts Substance Reaction Codes Entered Date Inactivated Date Status CODEINE RxNorm: 2670 02/11/2015 No Inactive Date Active allergy Unknown 12/23/2016 No Inactive Date Active ciprofloxacin rash, RxNorm: 45583 02/26/2015 No Inactive Date Active hydrocodone Unknown [...] Fill Instructions lisinopril 20 mg tablet RxNorm: 524497 TAKE 1 TABLET BY MOUTH TWICE DAILY 04/22/2018 09/18/2018 Active Generic For:*PRINIVIL 20 MG TABLET 04/22/2018 9:57:59 AM ceftriaxone 500 mg solution for injection RxNorm: 2904206 Inj 04/08/2018 04/08/2018 Inactive ceftriaxone 500 mg solution for injection RxNorm: 5532741 Inj 04/07/2018 04/07/2018 Inactive ceftriaxone 500 mg solution for injection RxNorm: 4055901 Inj 04/06/2018 04/06/2018 Inactive ketorolac 60 mg/2 mL intramuscular solution RxNorm: 1396184 Milliliter(s) IM 04/05/2018 04/05/2018 Inactive ceftriaxone 500 mg solution for injection RxNorm: 3811164 Inj 04/05/2018 04/05/2018 Inactive ondansetron 4 mg disintegrating tablet RxNorm: 737687 1 Tablet(s) PO TID as needed nausea 04/04/2018 No Stop Date Active ketorolac 30 mg/mL injection solution RxNorm: 488958 2 Milliliter(s) Inj 04/04/2018 04/04/2018 Inactive ceftriaxone 500 mg solution for injection RxNorm: 1844256 Inj 04/04/2018 04/04/2018 Inactive nystatin 100,000 unit/mL oral suspension RxNorm: 586499 4 Milliliter(s) PO QID 04/01/2018 04/05/2018 Inactive doxycycline hyclate 100 mg tablet RxNorm: 0987576 1 Tablet(s) PO BID 04/01/2018 04/10/2018 Inactive prednisone 10 mg tablet RxNorm: 931125 1 Tablet(s) PO UD 6 pills on day 1 and 2 and then decrease by one pill every other day until prescription is done 03/24/2018 No Stop Date Active amoxicillin 500 mg capsule RxNorm: 525656 1 Capsule(s) PO TID 03/24/2018 04/02/2018 Inactive metoprolol succinate ER 50 mg tablet,extended release 24 hr RxNorm: 180581 Tablet (s) TAKE 1 TABLET BY MOUTH DAILY 03/21/2018 10/16/2018 Active PLEASE SEND REFILL REQUESTS ELECTRONICALLY!! Synthroid 88 mcg tablet RxNorm: 214745 TAKE 1 TABLET BY MOUTH DAILY 03/08/2018 08/04/2018 Active 03/07/2018 11:21:21 AM pravastatin 80 mg tablet RxNorm: 012867 Tablet(s) 1 Tablet(s) PO daily 03/01/2018 02/23/2019 Active Kenalog 40 mg/mL suspension for injection RxNorm: 8109319 Milliliter(s) Inj 12/24/2017 12/24/2017 Inactive cetirizine 10 mg tablet RxNorm: 2213812 TAKE 1 TABLET BY MOUTH DAILY 12/21/2017 07/18/2018 Active Generic For:*ZYRTEC 10 MG TABLET 12/21/2017 10:08:05 AM Synthroid 88 mcg tablet RxNorm: 168399 TAKE 1 TABLET BY MOUTH DAILY 12/07/2017 03/06/2018 Inactive 12/06/2017 11:46:49 AM Lipitor 80 mg tablet RxNorm: 256114 1 Tablet(s) PO daily 201702/28/2018 Inactive pravastatin 80 mg tablet RxNorm: 244832 1 Tablet(s) PO daily 11/29/2017 Inactive Lipitor 80 mg tablet RxNorm: 942700 1 Tablet(s) PO daily 201711/28/2017 Inactive lisinopril 20 mg tablet RxNorm: 312629 TAKE 1 TABLET BY MOUTH TWICE DAILY 11/23/2017 04/21/2018 Inactive Generic For:*PRINIVIL 20 MG TABLET 11/23/2017 11:29 :44 AM Macrobid 100 mg capsule RxNorm: 378431 1 Capsule(s) PO BID 06/201711/25/2017 Inactive Macrobid 100 mg capsule RxNorm: 499698 1 Capsule(s) PO BID 06/201711/18/2017 Inactive Lomotil 2.5 mg-0.025 mg tablet RxNorm: 4495050 1 -2 Tablet(s) PO TID as needed 11/19/2017 11/25/2017 Inactive Lomotil 2.5 mg-0.025 mg tablet RxNorm: 2964307 1 -2 Tablet(s) PO TID as needed 11/19/2017 11/18/2017 Inactive Pyridium 200 mg tablet RxNorm: 6863670 1 Tablet(s) PO TID as needed 11/18/2017 11/22/2017 Inactive Augmentin 500 mg-125 mg tablet RxNorm: 866890 1 Tablet(s) PO TID 11/18/2017 11/27/2017 Inactive Keflex 500 mg capsule RxNorm: 901951 1 Capsule(s) PO TID 201711/09/2017 Inactive Denavir 1 % topical cream RxNorm: 170932 1 TOP TID as needed cold sores 11/01/2017 01/29/2018 Inactive Denavir 1 % topical cream RxNorm: 887619 1 TOP TID as needed cold sores 11/01/2017 10/31/2017 Inactive Synthroid 88 mcg tablet RxNorm: 723630 TAKE 1 TABLET BY MOUTH DAILY 09/29/2017 11/27/2017 Inactive 09/29/2017 12:58:07 PM pravastatin 80 mg tablet RxNorm: 539679 1 Tablet(s) PO daily 08/30/2017 Inactive pravastatin 80 mg tablet RxNorm: 506625 1 Tablet(s) PO daily 11/28/2017 Inactive Synthroid 88 mcg tablet RxNorm: 716412 TAKE 1 TABLET BY MOUTH DAILY 08/30/2017 09/28/2017 Inactive 08/30/2017 10:53:26 AM metoprolol succinate ER 50 mg tablet,extended release 24 hr RxNorm: 406488 Tablet (s) TAKE 1 TABLET BY MOUTH DAILY 08/17/2017 03/14/2018 Inactive PLEASE SEND REFILL REQUESTS ELECTRONICALLY!! lisinopril 20 mg tablet RxNorm: 493565 TAKE 1 TABLET BY MOUTH TWICE DAILY 06/18/2017 11/14/2017 Inactive Generic For:*PRINIVIL 20 MG TABLET 06/18/2017 1:31: 00 PM Synthroid 88 mcg tablet RxNorm: 656059 TAKE 1 TABLET BY MOUTH DAILY 05/24/2017 08/21/2017 Inactive 05/24/2017 2:13:21 PM cetirizine 10 mg tablet RxNorm: 2049485 1 Tablet(s) PO daily 12/12/2017 Inactive Zithromax Z-Russell 250 mg capsule RxNorm: 414255 1 Capsule(s) PO 04/02/2017 04/05/2017 Inactive Zithromax Z-Russell 250 mg tablet RxNorm: 175833 1 Tablet(s) PO 04/01/2017 Inactive Zithromax Z-Russell 250 mg capsule RxNorm: 810859 1 Capsule(s) PO 04/02/2017 04/01/2017 Inactive Zithromax Z-Russell 250 mg tablet RxNorm: 092496 1 Tablet(s) PO 04/06/2017 Inactive Ventolin HFA 90 mcg/actuation aerosol inhaler RxNorm: 302708 2 INH QID as needed - for the first 3 days inhale at least two puffs three times daily, then use as needed for shortness of breath 04/01/2017 04/30/2017 Inactive Keflex 500 mg capsule RxNorm: 475735 1 Capsule(s) PO TID 201604/01/2017 Inactive meclizine 25 mg tablet RxNorm: 779961 1 Tablet(s) PO Q6 PRN 1 Tablet(s) PO Q6 PRN 03/25/2017 No Stop Date Active dizziness meclizine 25 mg tablet RxNorm: 442964 Tablet(s) 1 Tablet(s) PO Q6 PRN 03/25/2017 03/24/2017 Inactive dizziness Kenalog 40 mg/mL suspension for injection RxNorm: 9018676 1 Milliliter(s) Inj 03/25/2017 03/25/2017 Inactive meclizine 25 mg tablet RxNorm: 621597 1 Tablet(s) PO Q6 PRN 03/24/2017 Inactive dizziness lisinopril 20 mg tablet RxNorm: 429209 1 Tablet(s) PO BID 01/1506/13/2017 Inactive metoprolol succinate ER 50 mg tablet,extended release 24 hr RxNorm: 482906 TAKE 1 TABLET BY MOUTH DAILY 01/07/20172017 Inactive Generic For:TOPROL XL 50MG TAB 01/07/2017 12:38:23 PM Synthroid 88 mcg tablet RxNorm: 815614 TAKE 1 TABLET BY MOUTH DAILY 12/25/2016 05/23/2017 Inactive 12/25/2016 9:47:08 AM Zithromax Z-Russell 250 mg tablet RxNorm: 272337 Tablet(s) PO UD 03/24/2017 Inactive meclizine 25 mg tablet RxNorm: 455197 1 Tablet(s) PO Q6 PRN 12/20/2016 Inactive dizziness Kenalog 40 mg/mL suspension for injection RxNorm: 3094169 Milliliter(s) Inj 12/08/2016 12/08/2016 Inactive meloxicam 15 mg tablet RxNorm: 586581 1 Tablet(s) PO daily 12/20/2016 Inactive cetirizine 10 mg tablet RxNorm: 4852117 1 Tablet(s) PO daily 05/16/2017 Inactive pravastatin 40 mg tablet RxNorm: 386538 1 Tablet(s) PO BID 07/201608/30/2017 Inactive Cancel 80 mg tab lisinopril 20 mg tablet RxNorm: 816310 1 Tablet(s) PO BID 08/1212/22/2016 Inactive Synthroid 88 mcg tablet RxNorm: 609692 1 Tablet(s) PO TAKE ONE (1) TABLET BY MOUTH DAILY 07/28/2016 12/24/2016 Inactive decrease dose hydralazine 25 mg tablet RxNorm: 099056 1 Tablet(s) PO TID as needed for Systolic blood pressure over 170 07/06/20162016 Inactive lisinopril 20 mg tablet RxNorm: 800289 1 Tablet(s) PO BID to replace your other lisinopril dose 07/06/2016 08/04/2016 Inactive lisinopril 10 mg tablet RxNorm: 657401 TAKE ONE TABLET BY MOUTH TWICE DAILY 06/10/2016 08/11/2016 Inactive Generic For:ZESTRIL 10 MG TABLET 06/09/2016 12:58: 50 PM triamcinolone acetonide 0.1 % topical cream RxNorm: 5669962 1 Application TOP TID as needed 06/01/2016 No Stop Date Active nystatin 100,000 unit/gram topical cream RxNorm: 997950 1 Gram(s) TOP TID as needed 06/01/2016 No Stop Date Active metoprolol succinate ER 50 mg tablet,extended release 24 hr RxNorm: 188632 1 Tablet(s) PO daily 05/26/2016 12/21/2016 Inactive cetirizine 10 mg tablet RxNorm: 6133881 1 Tablet(s) PO daily 10/18/2016 Inactive Synthroid 88 mcg tablet RxNorm: 416840 1 Tablet(s) PO TAKE ONE (1) TABLET BY MOUTH DAILY 03/06/2016 03/07/2018 Inactive Brand name only! Synthroid 88 mcg tablet RxNorm: 847976 1 Tablet(s) PO TAKE ONE (1) TABLET BY MOUTH DAILY 03/04/2016 03/05/2016 Inactive decrease dose cetirizine 10 mg tablet RxNorm: 3109185 1 Tablet(s) PO daily 03/22/2016 Inactive amoxicillin 500 mg capsule RxNorm: 293220 1 Capsule(s) PO TID 02/27/2016 03/04/2016 Inactive lisinopril 10 mg tablet RxNorm: 894532 TAKE ONE TABLET BY MOUTH TWICE DAILY 02/06/2016 06/04/2016 Inactive Generic For:ZESTRIL 10 MG TABLET 02/06/2016 12:16: 38 PM Synthroid 100 mcg tablet RxNorm: 556093 TAKE ONE (1) TABLET BY MOUTH DAILY 01/03/2016 03/03/2016 Inactive 01/03/2016 10:35:14 AM N O T I C E Last quantity doesn't match original quantity lisinopril 10 mg tablet RxNorm: 269021 1 Tablet(s) PO BID 10/0301/31/2016 Inactive Synthroid 100 mcg tablet RxNorm: 957568 1 Tablet(s) PO daily 01/02/2016 Inactive metoprolol succinate ER 50 mg tablet,extended release 24 hr RxNorm: 340701 1 Tablet(s) PO daily 10/04/2015 04/30/2016 Inactive Tylenol Arthritis 650 mg tablet,extended release RxNorm: 0107490 2 Tablet(s) PO TID 09/10/2015 No Stop Date Active metoprolol succinate ER 50 mg tablet,extended release 24 hr RxNorm: 872609 1 Tablet(s) PO daily 09/05/2015 10/03/2015 Inactive pravastatin 80 mg tablet RxNorm: 842399 1 Tablet(s) PO QHS 08/30/2015 Inactive pravastatin 40 mg tablet RxNorm: 531970 1 Tablet(s) PO BID 08/29/2015 Inactive Cancel 80 mg tab pravastatin 40 mg tablet RxNorm: 510643 1 Tablet(s) PO BID 08/19/2016 Inactive Cancel 80 mg tab lisinopril 10 mg tablet RxNorm: 630208 1 Tablet(s) PO BID 06/1308/11/2016 Inactive lisinopril 10 mg tablet RxNorm: 455991 1 Tablet(s) PO BID 06/1310/03/2015 Inactive Synthroid 100 mcg tablet RxNorm: 000290 1 Tablet(s) PO daily 10/03/2015 Inactive ceftriaxone 1 gram solution for injection RxNorm: 7436569 Inj 03/01/2015 03/01/2015 Inactive ceftriaxone 1 gram solution for injection RxNorm: 0441267 Inj 02/28/2015 02/28/2015 Inactive ceftriaxone 1 gram solution for injection RxNorm: 2151749 Inj 02/27/2015 02/27/2015 Inactive ceftriaxone 1 gram solution for injection RxNorm: 7623263 Inj 02/26/2015 02/26/2015 Inactive ceftriaxone 1 gram solution for injection RxNorm: 9583247 Inj 02/25/2015 02/25/2015 Inactive phenazopyridine 200 mg tablet RxNorm: 4132208 1 Tablet(s) PO Q8 02/21/2015 02/20/2015 Inactive Cipro 500 mg tablet RxNorm: 865884 1 Tablet(s) PO BID 201402/20/2015 Inactive phenazopyridine 200 mg tablet RxNorm: 9741606 1 Tablet(s) PO Q8 02/21/2015 02/25/2015 Inactive Cipro 500 mg tablet RxNorm: 715296 1 Tablet(s) PO BID 201402/27/2015 Inactive lisinopril 10 mg tablet RxNorm: 312472 1 Tablet(s) PO BID 02/1406/12/2015 Inactive metoprolol succinate ER 50 mg tablet,extended release 24 hr RxNorm: 133855 3/4 Tablet(s) PO daily 02/11/2015 09/04/2015 Inactive Voltaren 1 % topical gel RxNorm: 045267 2 Gram(s) TOP QID use this on affected joints up to four times daily. 02/11/2015 03/12/2015 Inactive Probiotic oral RxNorm : 6205 oral No Start Date Active aspirin 81 mg tablet RxNorm: 735020 1 Tablet(s) PO daily No Start Date Active Super B-Complex tablet RxNorm: 1 Tablet(s) PO No Start Date Active Flonase Allergy Relief 50 mcg/actuation nasal spray, suspension RxNorm: 6445795 1 Coleman NASAL BID No Start Date Active Super-D3+ oral RxNorm : oral No Start Date Active Prilosec OTC 20 mg tablet,delayed release RxNorm: 060568 2 Tablet(s) PO QAM No Start Date Active Flonase Allergy Relief 50 mcg/actuation nasal spray, suspension RxNorm: 6658945 1 Coleman NASAL as needed No Start Date Active Move Free Ultra 40 mg-10 mg-3.3 mg tablet RxNorm: 1 Tablet(s) PO daily No Start Date Active metoprolol tartrate 50 mg tablet RxNorm: 385782 1 Tablet(s) PO daily No Start Date 02/10/2015 Inactive lisinopril 10 mg tablet RxNorm: 718209 1 Tablet(s) PO BID No Start Date 02/13/2015 Inactive pravastatin 80 mg tablet RxNorm: 268391 1 Tablet(s) PO daily No Start Date 08/29/2015 Inactive Synthroid 100 mcg tablet RxNorm: 167082 1 Tablet(s) PO daily No Start Date 06/09/2015 Inactive lisinopril 40 mg tablet RxNorm: 335749 1 Tablet(s) PO BID No Start Date 02/28/2018 Inactive Tylenol Arthritis 650 mg tablet,extended release RxNorm: 1847853 4 Tablet(s) PO daily No Start Date 09/09/2015 Inactive Medication Administered Medication Codes Instructions Start Date Status ceftriaxone 500 mg solution for injection RxNorm: 2701367 04/08/2018 No longer Active ceftriaxone 500 mg solution for injection RxNorm: 0561317 04/07/2018 No longer Active ceftriaxone 500 mg solution for injection RxNorm: 2582129 04/06/2018 No longer Active ceftriaxone 500 mg solution for injection RxNorm: 5805103 04/05/2018 No longer Active ketorolac 60 mg/2 mL intramuscular solution RxNorm: 9743947 Milliliter 04/05/2018 No longer Active ceftriaxone 500 mg solution for injection RxNorm: 6995662 04/04/2018 No longer Active ketorolac 30 mg/mL injection solution RxNorm: 055334 2Milliliter 04/04/2018 No longer Active Kenalog 40 mg/mL suspension for injection RxNorm: 3568643 Milliliter 12/24/2017 No longer Active Kenalog 40 mg/mL suspension for injection RxNorm: 0078422 1Milliliter 03/25/2017 No longer Active Kenalog 40 mg/mL suspension for injection RxNorm: 1315268 Milliliter 12/08/2016 No longer Active ceftriaxone 1 gram solution for injection RxNorm: 2516626 03/01/2015 No longer Active ceftriaxone 1 gram solution for injection RxNorm: 9017739 02/28/2015 No longer Active ceftriaxone 1 gram solution for injection RxNorm: 0306728 02/27/2015 No longer Active ceftriaxone 1 gram solution for injection RxNorm: 8932221 02/26/2015 No longer Active ceftriaxone 1 gram solution for injection RxNorm: 4838688 02/25/2015 No longer Active Immunizations Vaccine Codes [...] Item Item Code Result Date Free T4 Qvr206 FREE T4 1.07 ng/dL 04/04/2018 Tsh Ord6 TSH (3rd IS) 1.93 uIU/mL 04/04/2018 Urine Culture Ucult Preliminary NO Growth Day 1 03/28/2018 Urine Culture Ucult Complete NO Growth Day 2 03/28/2018 Urine Culture Ucult Complete >100,000 col/ml aerobic growth sent to ref lab 11/19/2017 B12 Mqa190 B12 712.00 pg/ml 09/28/2017 C-Reactive Protein Qnt Crqnt CRP 0.1 mg/dl 09/23/2017 Comp Metabolic Sxi016 NA 139 mEq/L 09/23/2017 Comp Metabolic Jcu454 K 4.8 mEq/L 09/23/2017 Comp Metabolic Jbh198 CL 104 mEq/L 09/23/2017 Comp Metabolic Cct424 CO2 28.0 mEq/L 09/23/2017 Comp Metabolic Zon249 ANION GAP 12 09/23/2017 Comp Metabolic Aqq587 GLUCOSE 92 mg/dL 09/23/2017 Comp Metabolic Kvm464 Creat 0.7 mg/dL 09/23/2017 Comp Metabolic Ays139 eGFR 91 ml/min/1.73m2 09/23/2017 Comp Metabolic Tfo908 BUN 11 mg/dL 09/23/2017 Comp Metabolic Tul396 B/C Ratio 16.4 Ratio 09/23/2017 Comp Metabolic Pzq426 CALCIUM 9.0 mg/dL 09/23/2017 Comp Metabolic Zql490 ALK PHOS 76 U/L 09/23/2017 Comp Metabolic Kcg782 AST(SGOT) 24 U/L 09/23/2017 Comp Metabolic Pkg852 ALT(SGPT) 21 U/L 09/23/2017 Comp Metabolic Hge634 BILI T 0.3 mg/dL 09/23/2017 Comp Metabolic Glt999 ALBUMIN 4.1 g/dL 09/23/2017 Comp Metabolic Ied643 TPRO 6.2 g/dL 09/23/2017 Comp Metabolic Sby895 GLOB 2.1 g/dL 09/23/2017 Comp Metabolic Ipw824 A/G Ratio 1.9 Ratio 09/23/2017 Comp Metabolic Vam932 Osmo 277 mOsmo 09/23/2017 Sed Rate Ord21 ESR 3 mm/hr 09/22/2017 Vitamin D 25 Oh [id number] VITAMIN D, 25 HYDROXY 78.79 ng/mL Tsh [...] 97.1 fl 09/22/2017 Cbc With Differential Ord2 Nash% 10.5 % 09/22/2017 Cbc With Differential Ord2 [...] 2.37 K/ul 09/22/2017 Cbc With Differential Ord2 Nash ABS# 0.9 K/ul 09/22/2017 Cbc With Differential Ord2 Eos ABS# 0.2 K/ul 09/22/2017 Cbc With Differential Ord2 Baso ABS# 0.0 K/ul 09/22/2017 Free T4 Ymh822 FREE T4 0.99 ng/dL 09/22/2017 %Hba1C Ywf774 % HbA1c 39196-5 6.0 % 12/10/2016 %Hba1C Pla173 Gluc Ave 126 mg/dL 12/10/2016 Tsh Ord6 hTSH II 0.89 uIU/mL 12/09/2016 Free T4 Pyw153 FREE T4 0.99 ng/dL 12/09/2016 Comp Metabolic Lib957 NA 138 mEq/L 12/09/2016 Comp Metabolic Aux821 K 5.2 mEq/L 12/09/2016 Comp Metabolic Vlp326 CL 104 mEq/L 12/09/2016 Comp Metabolic Mxd678 CO2 29.0 mEq/L 12/09/2016 Comp Metabolic Fsm840 ANION GAP 10 12/09/2016 Comp Metabolic Jnf209 GLUCOSE 135 mg/dL 12/09/2016 Comp Metabolic Rlx684 Creat 0.8 mg/dL 12/09/2016 Comp Metabolic Gji431 eGFR 79 ml/min/1.73m2 12/09/2016 Comp Metabolic Bho212 BUN 18 mg/dL 12/09/2016 Comp Metabolic Oyu804 B/C Ratio 23.7 Ratio 12/09/2016 Comp Metabolic Fyk117 CALCIUM 9.5 mg/dL 12/09/2016 Comp Metabolic Vgt872 ALK PHOS 73 U/L 12/09/2016 Comp Metabolic Ync403 AST(SGOT) 24 U/L 12/09/2016 Comp Metabolic Fzg348 ALT(SGPT) 20 U/L 12/09/2016 Comp Metabolic Gzs977 BILI T 0.3 mg/dL 12/09/2016 Comp Metabolic Epx118 ALBUMIN 4.3 g/dL 12/09/2016 Comp Metabolic Hni119 TPRO 6.4 g/dL 12/09/2016 Comp Metabolic Sqy625 GLOB 2.1 g/dL 12/09/2016 Comp Metabolic Zse878 A/G Ratio 2.0 Ratio 12/09/2016 Comp Metabolic Fcr665 Osmo 280 mOsmo 12/09/2016 Cbc With Differential [...] 31.3 pg 12/09/2016 Cbc With Differential Ord2 Nash% 6.5 % 12/09/2016 Cbc With Differential Ord2 [...] 1.84 K/ul 12/09/2016 Cbc With Differential Ord2 Nash ABS# 0.6 K/ul 12/09/2016 Cbc With Differential Ord2 Eos ABS# 0.1 K/ul 12/09/2016 Cbc With Differential Ord2 Baso ABS# 0.1 K/ul 12/09/2016 Tsh Ord6 hTSH II 1.19 uIU/mL 09/02/2016 Free T4 Olr735 FREE T4 0.97 ng/dL 09/02/2016 Comp Metabolic Ltz405 NA 137 mEq/L 06/01/2016 Comp Metabolic Pig238 K 4.1 mEq/L 06/01/2016 Comp Metabolic Dve018 CL 104 mEq/L 06/01/2016 Comp Metabolic Uyq711 CO2 25.0 mEq/L 06/01/2016 Comp Metabolic Bxa563 ANION GAP 12 06/01/2016 Comp Metabolic Yup175 GLUCOSE 108 mg/dL 06/01/2016 Comp Metabolic Mod684 Creat 0.8 mg/dL 06/01/2016 Comp Metabolic Lsq531 eGFR 80 ml/min/1.73m2 06/01/2016 Comp Metabolic Ume597 BUN 15 mg/dL 06/01/2016 Comp Metabolic Qhq352 B/C Ratio 20.0 Ratio 06/01/2016 Comp Metabolic Svi640 CALCIUM 9.1 mg/dL 06/01/2016 Comp Metabolic Uhk790 ALK PHOS 89 U/L 06/01/2016 Comp Metabolic Nie930 AST(SGOT) 25 U/L 06/01/2016 Comp Metabolic Gxp654 ALT(SGPT) 20 U/L 06/01/2016 Comp Metabolic Ash343 BILI T 0.3 mg/dL 06/01/2016 Comp Metabolic Hlu538 ALBUMIN 4.2 g/dL 06/01/2016 Comp Metabolic Bur656 TPRO 6.2 g/dL 06/01/2016 Comp Metabolic Yvd506 GLOB 2.0 g/dL 06/01/2016 Comp Metabolic Nqm521 A/G Ratio 2.1 Ratio 06/01/2016 Comp Metabolic Hnb236 Osmo 275 mOsmo 06/01/2016 Free T4 Kvo309 FREE T4 0.94 ng/dL 06/01/2016 Tsh Ord6 [...] 31.1 pg 06/01/2016 Cbc With Differential Ord2 Nash% 8.4 % 06/01/2016 Cbc With Differential Ord2 [...] 2.96 K/ul 06/01/2016 Cbc With Differential Ord2 Nash ABS# 0.6 K/ul 06/01/2016 Cbc With Differential [...] 31.3 pg 02/27/2016 Cbc With Differential Ord2 Nash% 10.0 % 02/27/2016 Cbc With Differential Ord2 [...] 2.28 K/ul 02/27/2016 Cbc With Differential Ord2 Nash ABS# 0.9 K/ul 02/27/2016 Cbc With Differential Ord2 Eos ABS# 0.3 K/ul 02/27/2016 Cbc With Differential Ord2 Baso ABS# 0.1 K/ul 02/27/2016 Tsh Ord6 hTSH II 0.18 uIU/mL 02/27/2016 Free T4 Cjr732 FREE T4 1.17 ng/dL 02/27/2016 Comp Metabolic Shp609 NA 135 mEq/L 02/27/2016 Comp Metabolic Uvp635 K 5.2 mEq/L 02/27/2016 Comp Metabolic She518 CL 102 mEq/L 02/27/2016 Comp Metabolic Ifm625 CO2 27.0 mEq/L 02/27/2016 Comp Metabolic Zre658 ANION GAP 11 02/27/2016 Comp Metabolic Ooh190 GLUCOSE 93 mg/dL 02/27/2016 Comp Metabolic Xau402 Creat 0.7 mg/dL 02/27/2016 Comp Metabolic Ukp799 eGFR 91 ml/min/1.73m2 02/27/2016 Comp Metabolic Fmi655 BUN 14 mg/dL 02/27/2016 Comp Metabolic Vxh617 B/C Ratio 20.9 Ratio 02/27/2016 Comp Metabolic Mqg818 CALCIUM 9.4 mg/dL 02/27/2016 Comp Metabolic Ymn477 ALK PHOS 100 U/L 02/27/2016 Comp Metabolic Lah891 AST(SGOT) 23 U/L 02/27/2016 Comp Metabolic Fdz862 ALT(SGPT) 24 U/L 02/27/2016 Comp Metabolic Tta080 BILI T 0.2 mg/dL 02/27/2016 Comp Metabolic Irs757 ALBUMIN 4.3 g/dL 02/27/2016 Comp Metabolic Nuf220 TPRO 6.3 g/dL 02/27/2016 Comp Metabolic Cjj946 GLOB 2.1 g/dL 02/27/2016 Comp Metabolic Cyo238 A/G Ratio 2.1 Ratio 02/27/2016 Comp Metabolic Tzx306 Osmo 270 mOsmo 02/27/2016 Free T4 Pif871 FREE T4 1.03 ng/dL 05/10/2015 Comp Metabolic Oir718 NA 137 mEq/L 05/10/2015 Comp Metabolic Log789 K 4.4 mEq/L 05/10/2015 Comp Metabolic Sfb453 CL 102 mEq/L 05/10/2015 Comp Metabolic Sqj713 CO2 28.0 mEq/L 05/10/2015 Comp Metabolic Iio081 ANION GAP 11 05/10/2015 Comp Metabolic Aon980 GLUCOSE 108 mg/dL 05/10/2015 Comp Metabolic Ahm415 Creat 0.7 mg/dL 05/10/2015 Comp Metabolic Nwe519 eGFR 86 ml/min/1.73m2 05/10/2015 Comp Metabolic Xzg323 BUN 13 mg/dL 05/10/2015 Comp Metabolic Luo084 B/C Ratio 18.3 Ratio 05/10/2015 Comp Metabolic Fjo417 CALCIUM 9.4 mg/dL 05/10/2015 Comp Metabolic Gfu369 ALK PHOS 94 U/L 05/10/2015 Comp Metabolic Kuf823 AST(SGOT) 22 U/L 05/10/2015 Comp Metabolic Rvq642 ALT(SGPT) 21 U/L 05/10/2015 Comp Metabolic Ene650 BILI T 0.3 mg/dL 05/10/2015 Comp Metabolic Asp049 ALBUMIN 3.9 g/dL 05/10/2015 Comp Metabolic Ixd412 TPRO 6.1 g/dL 05/10/2015 Comp Metabolic Kpt425 GLOB 2.2 g/dL 05/10/2015 Comp Metabolic Lzm563 A/G Ratio 1.7 Ratio 05/10/2015 Comp Metabolic Yks507 Osmo 274 mOsmo 05/10/2015 Tsh Ord6 hTSH [...] 29.4 pg 05/10/2015 Cbc With Differential Ord2 Nash% 9.0 % 05/10/2015 Cbc With Differential Ord2 [...] 2.14 K/ul 05/10/2015 Cbc With Differential Ord2 Nash ABS# 0.5 K/ul 05/10/2015 Cbc With Differential [...] Ord30 C/HDL 3.8 Ratio 05/10/2015 Culture Urine [id number] URINE CULTURE SEE NOTES 02/25/2015 Culture Urine [id number] Continued Results 02/25/2015 Urine Culture Ucult Complete >100,000 col/ml aerobic growth sent to ref lab 02/22/2015 Free T4 Brr273 FREE T4 1.16 ng/dL 02/11/2015 Tsh Ord6 [...] Procedure Codes Date THER/PROPH/DIAG INJ SC/IM CPT-4: 96898 04/08/2018 ROCEPHIN, PER 250 MG CPT-4: J0696 04/08/2018 THER/PROPH/DIAG INJ SC/IM CPT-4: 53855 04/07/2018 ROCEPHIN, PER 250 MG CPT-4: J0696 04/07/2018 THER/PROPH/DIAG INJ SC/IM CPT-4: 13170 04/06/2018 ROCEPHIN, PER 250 MG CPT-4: J0696 04/06/2018 THER/PROPH/DIAG INJ SC/IM CPT-4: 94239 04/05/2018 ROCEPHIN, PER 250 MG CPT-4: J0696 04/05/2018 KETOROLAC TROMETHAMINE INJ CPT-4: J1885 04/05/2018 THER/PROPH/DIAG INJ SC/IM CPT-4: 09187 04/04/2018 ROCEPHIN, PER 250 MG CPT-4: J0696 04/04/2018 KETOROLAC TROMETHAMINE INJ CPT-4: J1885 04/04/2018 URINALYSIS NONAUTO W/O SCOPE CPT-4: 79611 03/24/2018 PPPS, SUBSEQ VISIT CPT -4: G0439 12/24/2017 THER/PROPH/DIAG INJ SC/IM CPT-4: 74955 12/24/2017 TRIAMCINOLONE ACET INJ NOS CPT-4: J3301 12/24/2017 THER/PROPH/DIAG INJ SC/IM CPT-4: 22643 11/18/2017 ROCEPHIN, PER 250 MG CPT-4: J0696 11/18/2017 PRESCRIP TRANSMIT VIA ERX SY CPT-4: G8553 04/01/2017 TRIAMCINOLONE ACET INJ NOS CPT-4: J3301 03/25/2017 PPPS, SUBSEQ VISIT CPT -4: G0439 12/23/2016 THER/PROPH/DIAG INJ SC/IM CPT-4: 72140 12/08/2016 TRIAMCINOLONE ACET INJ NOS CPT-4: J3301 12/08/2016 PRESCRIP TRANSMIT VIA ERX SY CPT-4: G8553 12/08/2016 PRESCRIP TRANSMIT VIA ERX SY CPT-4: G8553 11/30/2016 URINALYSIS NONAUTO W/O SCOPE CPT-4: 93599 07/08/2016 PRESCRIP TRANSMIT VIA ERX SY CPT-4: G8553 06/01/2016 PRESCRIP TRANSMIT VIA ERX SY CPT-4: G8553 02/27/2016 THER/PROPH/DIAG INJ SC/IM CPT-4: 49291 03/01/2015 ROCEPHIN, PER 250 MG CPT-4: J0696 03/01/2015 THER/PROPH/DIAG INJ SC/IM CPT-4: 04353 02/28/2015 ROCEPHIN, PER 250 MG CPT-4: J0696 02/28/2015 THER/PROPH/DIAG INJ SC/IM CPT-4: 02791 02/27/2015 ROCEPHIN, PER 250 MG CPT-4: J0696 02/27/2015 THER/PROPH/DIAG INJ SC/IM CPT-4: 01829 02/26/2015 ROCEPHIN, PER 250 MG CPT-4: J0696 02/26/2015 THER/PROPH/DIAG INJ SC/IM CPT-4: 29252 02/25/2015 ROCEPHIN, PER 250 MG CPT-4: J0696 02/25/2015 URINALYSIS NONAUTO W/O SCOPE CPT-4: 69481 02/21/2015 Vital Signs Date Vital 04/21/2018 Blood [...] Code : 8480-6 BMI: 27.8 Code : 53982-0 Heart Rate 1 : 85 bpm Height: 5'3" SpO2: 96% Weight: 157 lbs 03/24/2018 Blood Pressure 1: 128/82 Code : 8480-6 BMI: 27.8 Code : 89947-5 Heart Rate 1 : 84 bpm Height: 5'3" SpO2: 97% Weight: 157 lbs 03/01/2018 Blood Pressure 1: 136/70 Code : 8480-6 BMI: 27.8 Code : 24734-1 Heart Rate 1 : 70 bpm Height: 5'3" SpO2: 96% Weight: 157 lbs 12/24/2017 Height: Weight: 11/18/2017 Blood Pressure 1: 164/74 Code : 8480-6 BMI: 27.6 Code : 99508-2 Heart Rate 1 : 70 bpm Height: 5'3" SpO2: 96% Weight: 156 lbs 11/03/2017 Blood Pressure 1: 118/72 Code : 8480-6 BMI: 27.6 Code : 24041-2 Heart Rate 1 : 82 bpm Height: 5'3" SpO2: 96% Weight: 156 lbs 09/22/2017 Blood Pressure 1: 136/68 Code : 8480-6 BMI: 27.6 Code : 18862-5 Heart Rate 1 : 70 bpm Height: 5'3" SpO2: 97% Weight: 156 lbs 04/01/2017 Blood Pressure 1: 144/82 Code : 8480-6 Heart Rate 1: 68 bpm Height: 5'3" SpO2: 97% Weight: 03/25/2017 Blood Pressure 1: 116/70 Code : 8480-6 BMI: 26.7 Code : 48488-6 Heart Rate 1 : 67 bpm Height: 5'3" SpO2: 98% Weight: 151 lbs 12/23/2016 BMI: 26.7 Code: 87375-5 Height: 5'3" Weight: 151 lbs 12/22/2016 Blood Pressure 1: 142/60 Code : 8480-6 BMI: 26.7 Code : 59565-7 Heart Rate 1 : 67 bpm Height: 5'3" SpO2: 98% Weight: 151 lbs 12/08/2016 Blood Pressure 1: 140/72 Code : 8480-6 Heart Rate 1: 72 bpm Height: 5'3" SpO2: 97% Weight: 11/30/2016 Blood Pressure 1: 128/80 Code : 8480-6 BMI: 26.7 Code : 93977-8 Heart Rate 1 : 63 bpm Height: 5'3" SpO2: 96% Weight: 151 lbs 09/28/2016 Blood Pressure 1: 130/80 Code : 8480-6 BMI: 27.1 Code : 32090-3 Heart Rate 1 : 80 bpm Height: 5'3" SpO2: 97% Weight: 153 lbs 07/06/2016 Blood Pressure 1: 162/72 Code : 8480-6 BMI: 27.6 Code : 02336-4 Heart Rate 1 : 72 bpm Height: 5'3" SpO2: 98% Weight: 156 lbs 06/01/2016 Blood Pressure 1: 122/66 Code : 8480-6 BMI: 27.5 Code : 15819-7 Heart Rate 1 : 73 bpm Height: 5'3" SpO2: 98% Weight: 155 lbs 8 oz 02/27/2016 Blood Pressure 1: 126/68 Code : 8480-6 BMI: 26.9 Code : 06864-4 Heart Rate 1 : 70 bpm Height: 5'3" SpO2: 98% Weight: 152 lbs 09/10/2015 Blood Pressure 1: 130/70 Code : 8480-6 BMI: 26.9 Code : 86390-6 Heart Rate 1 : 72 bpm Height: 5'3" SpO2: 97% Weight: 152 lbs 05/14/2015 Blood Pressure 1: 138/82 Code : 8480-6 BMI: 26.4 Code : 11084-6 Heart Rate 1 : 75 bpm Height: 5'3" SpO2: 98% Weight: 149 lbs 02/11/2015 Blood Pressure 1: 128/72 Code : 8480-6 BMI: 25.5 Code : 68117-6 Heart Rate 1 : 73 bpm Height: [...] data Encounters Encounter Performer Location Codes Date 20762 EST. PATIENT, LEVEL IV Diagnosis: Low back pain[ICD10: M54.5] Diagnosis: Essential (primary) hypertension[ICD10: I10] Diagnosis: Other fatigue[ICD10: R53.83] Diagnosis: Other malaise[ICD10: R53.81] Bridget Cortez MD, [facility] CPT-4 : 34421 04/21/2018 14012 EST. PATIENT, LEVEL III Diagnosis: Other fatigue[ICD10: R53.83] Diagnosis: Otalgia, right ear[ICD10: H92.01] Bridget Cortez MD, [facility] CPT -4: 20405 04/13/2018 ([id number]) 35479 EST. PATIENT, LEVEL III Diagnosis: Essential (primary) hypertension[ICD10: I10] Diagnosis: Dysuria[ICD10: R30.0] Diagnosis: Nausea[ICD10: R11.0] Diagnosis: Headache[ICD10: R51] Elen Cortez MD, [facility] CPT-4: 04531 04/04/2018 43666 EST. PATIENT, LEVEL III Diagnosis: Other acute sinusitis[ICD10: J01.80] Diagnosis: Dizziness and giddiness[ICD10: R42] Diagnosis: Dysuria[ICD10: R30.0] Diagnosis: Candidal stomatitis[ICD10: B37.0] Diagnosis: Essential (primary) hypertension[ICD10: I10] Diagnosis: Other fatigue[ICD10: R53.83] Diagnosis: Other malaise[ICD10: R53.81] Bridget Cortez MD, [facility] CPT-4 : 98732 04/01/2018 ([id number]) 99374 EST. 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 PATIENT, LEVEL IV Diagnosis: Otalgia, right ear[ICD10: H92.01] Diagnosis: Headache[ICD10: R51] Diagnosis: Other fatigue[ICD10: R53.83] Diagnosis: Abnormal findings on diagnostic imaging of other specified body structures[ICD10: R93.89] Elen Cortez MD, [facility] CPT-4: 03230 03/01/2018 99238 EST. PATIENT, LEVEL III Diagnosis: Acute cystitis with hematuria[ICD10: N30.01] Bridget Cortez MD, [facility] CPT-4: 32755 11/18/2017 88296 EST. PATIENT, LEVEL IV Diagnosis: Other acute sinusitis[ICD10: J01.80] Diagnosis: Otalgia, right ear[ICD10: H92.01] Bridget Cortez MD, [facility] CPT -4: 84007 11/03/2017 37770 EST. PATIENT, LEVEL III Diagnosis: Other fatigue[ICD10: R53.83] Diagnosis: Other malaise[ICD10: R53.81] Diagnosis: Pain in left knee[ICD10: M25.562] Diagnosis: Pain in right knee[ICD10: M25.561] Bridget Cortez MD, [facility] CPT-4: 90723 09/22/2017 ([id number]) 99866 EST. PATIENT, LEVEL III Diagnosis: Cough[ICD10: R05] Diagnosis: Acute bronchitis due to other specified organisms[ICD10: J20.8] Elen Cortez MD, [facility] CPT-4: 96743 04/01/2017 ([id number]) 78616 EST. PATIENT, LEVEL III Diagnosis: Otalgia, right ear[ICD10: H92.01] Diagnosis: Other allergic rhinitis[ICD10: J30.89] Shiela Cortez MD, [facility] CPT-4: 84102 03/25/2017 ([id number]) 60857 EST. PATIENT, LEVEL III Diagnosis: Benign paroxysmal vertigo, bilateral[ICD10: H81.13] Shiela Cortez MD, [facility] CPT-4: 47004 12/22/2016 ([id number]) 04958 EST. PATIENT, LEVEL IV Diagnosis: Benign paroxysmal vertigo, bilateral[ICD10: H81.13] Diagnosis: Other allergic rhinitis[ICD10: J30.89] Diagnosis: Hypothyroidism, unspecified[ICD10: E03.9] Shiela Cortez MD, [facility] CPT-4: 99136 12/08/2016 ([id number]) 47972 EST. PATIENT, LEVEL IV Diagnosis: Atrophy of thyroid (acquired)[ICD10: E03.4] Diagnosis: Essential (primary) hypertension[ICD10: I10] Diagnosis: Mixed hyperlipidemia[ICD10: E78.2] Elen Cortez MD, [facility] CPT-4: 13460 11/30/2016 13414 EST. PATIENT, LEVEL IV Diagnosis: Headache[ICD10: R51] Diagnosis: Other fatigue[ICD10: R53.83] Diagnosis: Dizziness and giddiness[ICD10: R42] Bridget Cortez MD, [facility] CPT-4: 86027 09/28/2016 19762 EST. PATIENT, LEVEL IV Diagnosis: Essential (primary) hypertension[ICD10: I10] Diagnosis: Headache[ICD10: R51] Bridget Cortez MD, [facility] CPT-4: 69854 07/06/2016 ([id number]) 99535 EST. PATIENT, LEVEL IV Diagnosis: Essential (primary) hypertension[ICD10: I10] Diagnosis: Atrophy of thyroid (acquired)[ICD10: E03.4] Diagnosis: Mixed hyperlipidemia[ICD10: E78.2] Elen Cortez MD, [facility] CPT-4: 33946 06/01/2016 05657 EST. PATIENT, LEVEL IV Diagnosis: Acute laryngopharyngitis[ICD10: J06.0] Diagnosis: Other allergic rhinitis[ICD10: J30.89] Diagnosis: Other specified hypothyroidism[ICD10: E03.8] Diagnosis: Other fatigue[ICD10: R53.83] Bridget Cortez MD, [facility] CPT-4 : 09404 02/27/2016 ([id number]) 37846 EST. PATIENT, LEVEL III Diagnosis: Essential (primary) hypertension[ICD10: I10] Diagnosis: Mixed hyperlipidemia[ICD10: E78.2] Elen Cortez MD, [facility] CPT-4: 36959 09/10/2015 ([id number]) 09636 EST. PATIENT, LEVEL IV Diagnosis: Essential (primary) hypertension[ICD10: I10] Diagnosis: Hypothyroidism, unspecified[ICD10: E03.9] Diagnosis: Unspecified osteoarthritis, unspecified site[ICD10: M19.90] [facility] CPT-4: 72384 05/14/2015 ([id number]) OFFICE VISIT, NEW - LEVEL 4 Diagnosis: Essential (primary) hypertension[ICD10: I10] Diagnosis: Hypothyroidism, unspecified[ICD10: E03.9] Diagnosis: Unspecified osteoarthritis, unspecified site[ICD10: M19.90] [facility] CPT-4: 63074 02/11/2015 Plan of Care Planned Activity Notes [...] or concerns. 04/21/2018 Appointment: Bridget Velazco WPtel: [address] [place], [place] [id number] (15 min) Moderate 04/21/2018 Patient Education: Patient Medication Summary Completed 04/21/2018 Patient Education: Back Pain Completed 04/21/2018 Appointment: Bridget Velazco WPtel: [address] [place] [address] (15 min) Moderate 04/14/2018 Care Plan: Urine [...] Dr. Saini. 04/13/2018 Appointment: Bridget Velazco WPtel: [address] [place], [place] [address] (30 min) Complex 04/13/2018 Patient Education: Patient Medication Summary Completed 04/13/2018 Appointment: Nurse Visit 04/08/2018 Appointment: Bridget Velazco WPtel: [phone] [facility] (15 min) Moderate 04/08/2018 Patient Education: Patient Medication Summary Completed 04/08/2018 Appointment: Injection 04/07/2018 Patient Education: Patient Medication Summary Completed 04/07/2018 Appointment: Injection 04/06/2018 Patient Education: Patient Medication Summary Completed 04/06/2018 Appointment: Injection 04/05/2018 Appointment: Elen Cortez WPtel: [phone] [facility] (15 min) Moderate 04/05/2018 Patient Education: Patient [...] toradol today. 04/04/2018 Appointment: [phone] (10 min) Simple 04/04/2018 Patient Education: Patient Medication Summary Completed 04/04/2018 Patient Education: Patient Medication Summary Completed 04/04/2018 Patient Education: Patient Medication Summary Completed 04/04/2018 Care Plan: Referral Order SNOMED-CT : [id number] Pending 04/04/2018 Visit Plan: Dysuria, dizziness, fatigue, [...] improvement. 04/01/2018 Appointment: [facility]el[phone] [place] (15 min) Moderate 04/01/2018 Patient Education: Patient Medication Summary Completed 04/01/2018 Visit Plan: Sinusitis - Pt has acute infection - pain in face, maxillary region, Pt informed to use decongestant, RX given to patient, sinus rinses also recommended. Call if symptoms do not show improvement. Dysuria - rx for antibiotic sent to pharmacy. 03/24/2018 Appointment: Elen Cortez WPtel: [phone] [facility] (15 min) Moderate 03/24/2018 Patient Education: [...] improve. 03/01/2018 Appointment: [facility] Cortez [facility]Ptel[phone] [facility] [place] (15 min) Moderate 03/01/2018 Patient Education: [...] allergy spray. 12/24/2017 Appointment: Bridget Velazco WPtel: [facility] [place] [phone] [place] [address] - Annual Wellness Visit 12/24/2017 Patient Education: Patient Medication Summary Completed 12/24/2017 Appointment: Bridget Velazcotel: [address] [place], [place] [phone] (15 min) Moderate 11/30/2017 Appointment: Lab Draw [...] symptoms do not improve. 11/18/2017 Appointment: Bridget Velazcotel: [facility] [facility] (15 min) Moderate 11/18/2017 Patient Education: Patient Medication Summary Completed 11/18/2017 Visit Plan: Sinusitis - Pt has acute infection - pain in face, maxillary region, Pt informed to use decongestant, RX given to patient, sinus rinses also recommended. Call if symptoms do not show improvement. 11/03/2017 Appointment: Bridget Velazco WPtel: [phone] [place] [id number] (15 min) Moderate 11/03/2017 Patient Education: Patient [...] improve. 09/22/2017 Appointment: Bridget Velazco WPtel: [phone] (15 min) Moderate 09/22/2017 Patient Education: Patient Medication Summary Completed 09/22/2017 Visit Plan: Bronchitis - acute case of bronchitis identified. Pt has been given antibiotics, breathing treatments as appropriate, and pt has been instructed to call if symptoms are not improved, or if symptoms acutely worsen. 04/01/2017 Appointment: Elen Cortez WPtel: [facility]0 [facility] (15 min) Moderate 04/01/2017 Patient Education: Patient [...] allergy spray. 03/25/2017 Appointment: Shiela Srivastava WPtel: [facility] [place] [phone] [place] (10 min) Simple 03/25/2017 Appointment: Elen Cortez WPtel: [facility]8 [facility] (15 min) Moderate 03/25/2017 Patient Education: [...] surrogate. 12/23/2016 Appointment: Bridget Velazco WPtel: [phone] [facility] [facility] - Annual Wellness Visit 12/23/2016 Patient Education: Patient Medication Summary Completed 12/23/2016 Visit Plan: Vertigo-discussed PT for vestibular exercises- patient wants to wait since symptoms are improving-continue anti histamine as directed-meclizine as needed 12/22/2016 Appointment: Shiela Srivastava WPtel: [phone] [phone] (30 min) Complex 12/22/2016 Patient Education: Patient [...] of control. 12/08/2016 Appointment: Shiela Srivastava WPtel: [phone] [phone] (30 min) Complex 12/08/2016 Patient Education: [...] medications. 11/30/2016 Appointment: [facility] Cortez [facility]Ptel: [phone] [facility] [place] (15 min) Moderate 11/30/2016 Patient Education: [...] changes, questions, or concerns. 09/28/2016 Appointment: Bridget Velazcol: [phone] [facility] (30 min) Complex 09/28/2016 Patient Education: Patient [...] call for acute concerns. 07/06/2016 Appointment: Bridget Velazcotel: [phone] [facility] (15 min) Moderate 07/06/2016 Patient Education: Patient [...] not improving 06/01/2016 Appointment: Elen Cortez WPtel: [address] [facility] (15 min) Moderate 06/01/2016 Patient Education: Patient [...] check labs 02/27/2016 Appointment: Bridget Velazco WPtel: [facility]6 [facility] (30 min) Complex 02/27/2016 Patient Education: Patient Medication Summary Completed 02/27/2016 Patient Education: Patient Medication Summary Completed 09/27/2015 Care Plan: [employer] : 72007-3 Pending 09/27/2015 Visit Plan: Hypertension - well [...] the colonoscopy 09/10/2015 Appointment: Elen Cortez WPtel: [phone] [facility] [place] (15 min) Moderate 09/10/2015 Patient Education: [...] Sanchez. 05/14/2015 Appointment: Elen Cortez WPtel: [phone] [facility] [place] (15 min) Moderate 05/14/2015 Patient Education: Patient Medication Summary Completed 05/14/2015 Patient Education: Hypertension Completed 05/14/2015 Care Plan: Referral Order SNOMED-CT : [id number] Ordered 05/14/2015 Patient Education: Patient Medication Summary Completed 03/01/2015 Appointment: Nurse Visit 02/28/2015 Patient Education: Patient Medication Summary Completed 02/28/2015 Patient Education: Patient Medication Summary Completed 02/27/2015 Appointment: Nurse Visit 02/26/2015 Patient Education: Patient Medication Summary Completed 02/26/2015 Appointment: Injection 02/25/2015 Patient Education: Patient Medication Summary Completed 02/25/2015 Patient Education: Patient Medication Summary Completed 02/21/2015 Care Plan: URINALYSIS NONAUTO W/O SCOPE LOINC : 57445-8 Ordered 02/21/2015 Visit Plan: Hypertension - well [...] symptoms. 02/11/2015 Appointment: Elen Cortez WPtel: [phone] [facility] New Patient 02/11/2015 Patient Education: Patient Medication [...]
--- OUTSIDE RECORDS SUMMARY | 2018-06-01 12:37 | XMS REPORT | CCD ---
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 Role Phone PP Unavailable CCM Unavailable Summary Purpose Interface Exchange Insurance Providers Payer name Policy type / Coverage type Covered libertarian ID Effective Begin Date Effective End Date WPS Medicare Part B Medicare Part B [id number] Unknown [place] [employer] Life Insurance Medicare Part B [id number] Unknown Family history Mother Diagnosis Age At [...] spouses - 02/11/[address]: 502317553 Never smoker 02/11/2015 Alcohol history Unknown occasionally drinks alcohol 02/11/2015 Allergies, Adverse Reactions, Alerts Substance Reaction Codes Entered Date Inactivated Date Status CODEINE RxNorm: 2670 02/11/2015 No Inactive Date Active allergy Unknown 12/23/2016 No Inactive Date Active ciprofloxacin rash, RxNorm: 26367 02/26/2015 No Inactive Date Active hydrocodone Unknown [...] Fill Instructions lisinopril 20 mg tablet RxNorm: 627039 TAKE 1 TABLET BY MOUTH TWICE DAILY 04/22/2018 09/18/2018 Active Generic For:*PRINIVIL 20 MG TABLET 04/22/2018 9:57:59 AM ceftriaxone 500 mg solution for injection RxNorm: 2646900 Inj 04/08/2018 04/08/2018 Inactive ceftriaxone 500 mg solution for injection RxNorm: 8162260 Inj 04/07/2018 04/07/2018 Inactive ceftriaxone 500 mg solution for injection RxNorm: 6193321 Inj 04/06/2018 04/06/2018 Inactive ketorolac 60 mg/2 mL intramuscular solution RxNorm: 7243105 Milliliter(s) IM 04/05/2018 04/05/2018 Inactive ceftriaxone 500 mg solution for injection RxNorm: 5876527 Inj 04/05/2018 04/05/2018 Inactive ondansetron 4 mg disintegrating tablet RxNorm: 317342 1 Tablet(s) PO TID as needed nausea 04/04/2018 No Stop Date Active ketorolac 30 mg/mL injection solution RxNorm: 192107 2 Milliliter(s) Inj 04/04/2018 04/04/2018 Inactive ceftriaxone 500 mg solution for injection RxNorm: 2039585 Inj 04/04/2018 04/04/2018 Inactive nystatin 100,000 unit/mL oral suspension RxNorm: 689571 4 Milliliter(s) PO QID 04/01/2018 04/05/2018 Inactive doxycycline hyclate 100 mg tablet RxNorm: 7347625 1 Tablet(s) PO BID 04/01/2018 04/10/2018 Inactive prednisone 10 mg tablet RxNorm: 182281 1 Tablet(s) PO UD 6 pills on day 1 and 2 and then decrease by one pill every other day until prescription is done 03/24/2018 No Stop Date Active amoxicillin 500 mg capsule RxNorm: 619740 1 Capsule(s) PO TID 03/24/2018 04/02/2018 Inactive metoprolol succinate ER 50 mg tablet,extended release 24 hr RxNorm: 581288 Tablet (s) TAKE 1 TABLET BY MOUTH DAILY 03/21/2018 10/16/2018 Active PLEASE SEND REFILL REQUESTS ELECTRONICALLY!! Synthroid 88 mcg tablet RxNorm: 578662 TAKE 1 TABLET BY MOUTH DAILY 03/08/2018 08/04/2018 Active 03/07/2018 11:21:21 AM pravastatin 80 mg tablet RxNorm: 588729 Tablet(s) 1 Tablet(s) PO daily 03/01/2018 02/23/2019 Active Kenalog 40 mg/mL suspension for injection RxNorm: 1253887 Milliliter(s) Inj 12/24/2017 12/24/2017 Inactive cetirizine 10 mg tablet RxNorm: 5672009 TAKE 1 TABLET BY MOUTH DAILY 12/21/2017 07/18/2018 Active Generic For:*ZYRTEC 10 MG TABLET 12/21/2017 10:08:05 AM Synthroid 88 mcg tablet RxNorm: 432077 TAKE 1 TABLET BY MOUTH DAILY 12/07/2017 03/06/2018 Inactive 12/06/2017 11:46:49 AM Lipitor 80 mg tablet RxNorm: 354741 1 Tablet(s) PO daily 201702/28/2018 Inactive pravastatin 80 mg tablet RxNorm: 910749 1 Tablet(s) PO daily 11/29/2017 Inactive Lipitor 80 mg tablet RxNorm: 403365 1 Tablet(s) PO daily 201711/28/2017 Inactive lisinopril 20 mg tablet RxNorm: 555617 TAKE 1 TABLET BY MOUTH TWICE DAILY 11/23/2017 04/21/2018 Inactive Generic For:*PRINIVIL 20 MG TABLET 11/23/2017 11:29 :44 AM Macrobid 100 mg capsule RxNorm: 549151 1 Capsule(s) PO BID 06/201711/25/2017 Inactive Macrobid 100 mg capsule RxNorm: 247179 1 Capsule(s) PO BID 06/201711/18/2017 Inactive Lomotil 2.5 mg-0.025 mg tablet RxNorm: 9320170 1 -2 Tablet(s) PO TID as needed 11/19/2017 11/25/2017 Inactive Lomotil 2.5 mg-0.025 mg tablet RxNorm: 9109902 1 -2 Tablet(s) PO TID as needed 11/19/2017 11/18/2017 Inactive Pyridium 200 mg tablet RxNorm: 5391307 1 Tablet(s) PO TID as needed 11/18/2017 11/22/2017 Inactive Augmentin 500 mg-125 mg tablet RxNorm: 570360 1 Tablet(s) PO TID 11/18/2017 11/27/2017 Inactive Keflex 500 mg capsule RxNorm: 318571 1 Capsule(s) PO TID 201711/09/2017 Inactive Denavir 1 % topical cream RxNorm: 863664 1 TOP TID as needed cold sores 11/01/2017 01/29/2018 Inactive Denavir 1 % topical cream RxNorm: 414614 1 TOP TID as needed cold sores 11/01/2017 10/31/2017 Inactive Synthroid 88 mcg tablet RxNorm: 961973 TAKE 1 TABLET BY MOUTH DAILY 09/29/2017 11/27/2017 Inactive 09/29/2017 12:58:07 PM pravastatin 80 mg tablet RxNorm: 521831 1 Tablet(s) PO daily 08/30/2017 Inactive pravastatin 80 mg tablet RxNorm: 538582 1 Tablet(s) PO daily 11/28/2017 Inactive Synthroid 88 mcg tablet RxNorm: 275711 TAKE 1 TABLET BY MOUTH DAILY 08/30/2017 09/28/2017 Inactive 08/30/2017 10:53:26 AM metoprolol succinate ER 50 mg tablet,extended release 24 hr RxNorm: 860566 Tablet (s) TAKE 1 TABLET BY MOUTH DAILY 08/17/2017 03/14/2018 Inactive PLEASE SEND REFILL REQUESTS ELECTRONICALLY!! lisinopril 20 mg tablet RxNorm: 332750 TAKE 1 TABLET BY MOUTH TWICE DAILY 06/18/2017 11/14/2017 Inactive Generic For:*PRINIVIL 20 MG TABLET 06/18/2017 1:31: 00 PM Synthroid 88 mcg tablet RxNorm: 050706 TAKE 1 TABLET BY MOUTH DAILY 05/24/2017 08/21/2017 Inactive 05/24/2017 2:13:21 PM cetirizine 10 mg tablet RxNorm: 1326549 1 Tablet(s) PO daily 12/12/2017 Inactive Zithromax Z-Russell 250 mg capsule RxNorm: 504350 1 Capsule(s) PO 04/02/2017 04/05/2017 Inactive Zithromax Z-Russell 250 mg tablet RxNorm: 813136 1 Tablet(s) PO 04/01/2017 Inactive Zithromax Z-Russell 250 mg capsule RxNorm: 701782 1 Capsule(s) PO 04/02/2017 04/01/2017 Inactive Zithromax Z-Russell 250 mg tablet RxNorm: 864304 1 Tablet(s) PO 04/06/2017 Inactive Ventolin HFA 90 mcg/actuation aerosol inhaler RxNorm: 763815 2 INH QID as needed - for the first 3 days inhale at least two puffs three times daily, then use as needed for shortness of breath 04/01/2017 04/30/2017 Inactive Keflex 500 mg capsule RxNorm: 895698 1 Capsule(s) PO TID 201604/01/2017 Inactive meclizine 25 mg tablet RxNorm: 120640 1 Tablet(s) PO Q6 PRN 1 Tablet(s) PO Q6 PRN 03/25/2017 No Stop Date Active dizziness meclizine 25 mg tablet RxNorm: 526244 Tablet(s) 1 Tablet(s) PO Q6 PRN 03/25/2017 03/24/2017 Inactive dizziness Kenalog 40 mg/mL suspension for injection RxNorm: 2400287 1 Milliliter(s) Inj 03/25/2017 03/25/2017 Inactive meclizine 25 mg tablet RxNorm: 596997 1 Tablet(s) PO Q6 PRN 03/24/2017 Inactive dizziness lisinopril 20 mg tablet RxNorm: 872584 1 Tablet(s) PO BID 01/1506/13/2017 Inactive metoprolol succinate ER 50 mg tablet,extended release 24 hr RxNorm: 976151 TAKE 1 TABLET BY MOUTH DAILY 01/07/20172017 Inactive Generic For:TOPROL XL 50MG TAB 01/07/2017 12:38:23 PM Synthroid 88 mcg tablet RxNorm: 730368 TAKE 1 TABLET BY MOUTH DAILY 12/25/2016 05/23/2017 Inactive 12/25/2016 9:47:08 AM Zithromax Z-Russell 250 mg tablet RxNorm: 398921 Tablet(s) PO UD 03/24/2017 Inactive meclizine 25 mg tablet RxNorm: 867604 1 Tablet(s) PO Q6 PRN 12/20/2016 Inactive dizziness Kenalog 40 mg/mL suspension for injection RxNorm: 6012072 Milliliter(s) Inj 12/08/2016 12/08/2016 Inactive meloxicam 15 mg tablet RxNorm: 233497 1 Tablet(s) PO daily 12/20/2016 Inactive cetirizine 10 mg tablet RxNorm: 8255271 1 Tablet(s) PO daily 05/16/2017 Inactive pravastatin 40 mg tablet RxNorm: 447680 1 Tablet(s) PO BID 07/201608/30/2017 Inactive Cancel 80 mg tab lisinopril 20 mg tablet RxNorm: 153246 1 Tablet(s) PO BID 08/1212/22/2016 Inactive Synthroid 88 mcg tablet RxNorm: 184124 1 Tablet(s) PO TAKE ONE (1) TABLET BY MOUTH DAILY 07/28/2016 12/24/2016 Inactive decrease dose hydralazine 25 mg tablet RxNorm: 519584 1 Tablet(s) PO TID as needed for Systolic blood pressure over 170 07/06/20162016 Inactive lisinopril 20 mg tablet RxNorm: 799349 1 Tablet(s) PO BID to replace your other lisinopril dose 07/06/2016 08/04/2016 Inactive lisinopril 10 mg tablet RxNorm: 458253 TAKE ONE TABLET BY MOUTH TWICE DAILY 06/10/2016 08/11/2016 Inactive Generic For:ZESTRIL 10 MG TABLET 06/09/2016 12:58: 50 PM triamcinolone acetonide 0.1 % topical cream RxNorm: 1809801 1 Application TOP TID as needed 06/01/2016 No Stop Date Active nystatin 100,000 unit/gram topical cream RxNorm: 444723 1 Gram(s) TOP TID as needed 06/01/2016 No Stop Date Active metoprolol succinate ER 50 mg tablet,extended release 24 hr RxNorm: 389295 1 Tablet(s) PO daily 05/26/2016 12/21/2016 Inactive cetirizine 10 mg tablet RxNorm: 6544184 1 Tablet(s) PO daily 10/18/2016 Inactive Synthroid 88 mcg tablet RxNorm: 328356 1 Tablet(s) PO TAKE ONE (1) TABLET BY MOUTH DAILY 03/06/2016 03/07/2018 Inactive Brand name only! Synthroid 88 mcg tablet RxNorm: 241177 1 Tablet(s) PO TAKE ONE (1) TABLET BY MOUTH DAILY 03/04/2016 03/05/2016 Inactive decrease dose cetirizine 10 mg tablet RxNorm: 5963587 1 Tablet(s) PO daily 03/22/2016 Inactive amoxicillin 500 mg capsule RxNorm: 464305 1 Capsule(s) PO TID 02/27/2016 03/04/2016 Inactive lisinopril 10 mg tablet RxNorm: 011167 TAKE ONE TABLET BY MOUTH TWICE DAILY 02/06/2016 06/04/2016 Inactive Generic For:ZESTRIL 10 MG TABLET 02/06/2016 12:16: 38 PM Synthroid 100 mcg tablet RxNorm: 864388 TAKE ONE (1) TABLET BY MOUTH DAILY 01/03/2016 03/03/2016 Inactive 01/03/2016 10:35:14 AM N O T I C E Last quantity doesn't match original quantity lisinopril 10 mg tablet RxNorm: 072985 1 Tablet(s) PO BID 10/0301/31/2016 Inactive Synthroid 100 mcg tablet RxNorm: 507325 1 Tablet(s) PO daily 01/02/2016 Inactive metoprolol succinate ER 50 mg tablet,extended release 24 hr RxNorm: 248938 1 Tablet(s) PO daily 10/04/2015 04/30/2016 Inactive Tylenol Arthritis 650 mg tablet,extended release RxNorm: 4408170 2 Tablet(s) PO TID 09/10/2015 No Stop Date Active metoprolol succinate ER 50 mg tablet,extended release 24 hr RxNorm: 132737 1 Tablet(s) PO daily 09/05/2015 10/03/2015 Inactive pravastatin 80 mg tablet RxNorm: 269650 1 Tablet(s) PO QHS 08/30/2015 Inactive pravastatin 40 mg tablet RxNorm: 433633 1 Tablet(s) PO BID 08/29/2015 Inactive Cancel 80 mg tab pravastatin 40 mg tablet RxNorm: 144920 1 Tablet(s) PO BID 08/19/2016 Inactive Cancel 80 mg tab lisinopril 10 mg tablet RxNorm: 028355 1 Tablet(s) PO BID 06/1308/11/2016 Inactive lisinopril 10 mg tablet RxNorm: 703658 1 Tablet(s) PO BID 06/1310/03/2015 Inactive Synthroid 100 mcg tablet RxNorm: 493187 1 Tablet(s) PO daily 10/03/2015 Inactive ceftriaxone 1 gram solution for injection RxNorm: 4769863 Inj 03/01/2015 03/01/2015 Inactive ceftriaxone 1 gram solution for injection RxNorm: 8596213 Inj 02/28/2015 02/28/2015 Inactive ceftriaxone 1 gram solution for injection RxNorm: 1000474 Inj 02/27/2015 02/27/2015 Inactive ceftriaxone 1 gram solution for injection RxNorm: 0117323 Inj 02/26/2015 02/26/2015 Inactive ceftriaxone 1 gram solution for injection RxNorm: 1107434 Inj 02/25/2015 02/25/2015 Inactive phenazopyridine 200 mg tablet RxNorm: 5993839 1 Tablet(s) PO Q8 02/21/2015 02/20/2015 Inactive Cipro 500 mg tablet RxNorm: 237878 1 Tablet(s) PO BID 201402/20/2015 Inactive phenazopyridine 200 mg tablet RxNorm: 7435275 1 Tablet(s) PO Q8 02/21/2015 02/25/2015 Inactive Cipro 500 mg tablet RxNorm: 907417 1 Tablet(s) PO BID 201402/27/2015 Inactive lisinopril 10 mg tablet RxNorm: 954064 1 Tablet(s) PO BID 02/1406/12/2015 Inactive metoprolol succinate ER 50 mg tablet,extended release 24 hr RxNorm: 626220 3/4 Tablet(s) PO daily 02/11/2015 09/04/2015 Inactive Voltaren 1 % topical gel RxNorm: 931166 2 Gram(s) TOP QID use this on affected joints up to four times daily. 02/11/2015 03/12/2015 Inactive Probiotic oral RxNorm : 6205 oral No Start Date Active aspirin 81 mg tablet RxNorm: 358256 1 Tablet(s) PO daily No Start Date Active Super B-Complex tablet RxNorm: 1 Tablet(s) PO No Start Date Active Flonase Allergy Relief 50 mcg/actuation nasal spray, suspension RxNorm: 1822974 1 [place] NASAL BID No Start Date Active Super-D3+ oral RxNorm : oral No Start Date Active Prilosec OTC 20 mg tablet,delayed release RxNorm: 859709 2 Tablet(s) PO QAM No Start Date Active Flonase Allergy Relief 50 mcg/actuation nasal spray, suspension RxNorm: 6419226 1 [employer] NASAL as needed No Start Date Active Move Free Ultra 40 mg-10 mg-3.3 mg tablet RxNorm: 1 Tablet(s) PO daily No Start Date Active metoprolol tartrate 50 mg tablet RxNorm: 287324 1 Tablet(s) PO daily No Start Date 02/10/2015 Inactive lisinopril 10 mg tablet RxNorm: 464364 1 Tablet(s) PO BID No Start Date 02/13/2015 Inactive pravastatin 80 mg tablet RxNorm: 542643 1 Tablet(s) PO daily No Start Date 08/29/2015 Inactive Synthroid 100 mcg tablet RxNorm: 289537 1 Tablet(s) PO daily No Start Date 06/09/2015 Inactive lisinopril 40 mg tablet RxNorm: 965296 1 Tablet(s) PO BID No Start Date 02/28/2018 Inactive Tylenol Arthritis 650 mg tablet,extended release RxNorm: 2147064 4 Tablet(s) PO daily No Start Date 09/09/2015 Inactive Medication Administered Medication Codes Instructions Start Date Status ceftriaxone 500 mg solution for injection RxNorm: 2284567 04/08/2018 No longer Active ceftriaxone 500 mg solution for injection RxNorm: 3432012 04/07/2018 No longer Active ceftriaxone 500 mg solution for injection RxNorm: 9738496 04/06/2018 No longer Active ceftriaxone 500 mg solution for injection RxNorm: 3126229 04/05/2018 No longer Active ketorolac 60 mg/2 mL intramuscular solution RxNorm: 9449906 Milliliter 04/05/2018 No longer Active ceftriaxone 500 mg solution for injection RxNorm: 7567195 04/04/2018 No longer Active ketorolac 30 mg/mL injection solution RxNorm: 611116 2Milliliter 04/04/2018 No longer Active Kenalog 40 mg/mL suspension for injection RxNorm: 0740956 Milliliter 12/24/2017 No longer Active Kenalog 40 mg/mL suspension for injection RxNorm: 7093435 1Milliliter 03/25/2017 No longer Active Kenalog 40 mg/mL suspension for injection RxNorm: 5484720 Milliliter 12/08/2016 No longer Active ceftriaxone 1 gram solution for injection RxNorm: 4285081 03/01/2015 No longer Active ceftriaxone 1 gram solution for injection RxNorm: 1461790 02/28/2015 No longer Active ceftriaxone 1 gram solution for injection RxNorm: 9230117 02/27/2015 No longer Active ceftriaxone 1 gram solution for injection RxNorm: 6924949 02/26/2015 No longer Active ceftriaxone 1 gram solution for injection RxNorm: 2419080 02/25/2015 No longer Active Immunizations Vaccine Codes [...] Item Item Code Result Date Free T4 Akk553 FREE T4 1.07 ng/dL 04/04/2018 Tsh Ord6 TSH (3rd IS) 1.93 uIU/mL 04/04/2018 Urine Culture Ucult Preliminary NO Growth Day 1 03/28/2018 Urine Culture Ucult Complete NO Growth Day 2 03/28/2018 Urine Culture Ucult Complete >100,000 col/ml aerobic growth sent to ref lab 11/19/2017 B12 Dud486 B12 712.00 pg/ml 09/28/2017 C-Reactive Protein Qnt Crqnt CRP 0.1 mg/dl 09/23/2017 Comp Metabolic Hig176 NA 139 mEq/L 09/23/2017 Comp Metabolic Fbl104 K 4.8 mEq/L 09/23/2017 Comp Metabolic Cni647 CL 104 mEq/L 09/23/2017 Comp Metabolic Hik270 CO2 28.0 mEq/L 09/23/2017 Comp Metabolic Lgm098 ANION GAP 12 09/23/2017 Comp Metabolic Cnd407 GLUCOSE 92 mg/dL 09/23/2017 Comp Metabolic Tuy849 Creat 0.7 mg/dL 09/23/2017 Comp Metabolic Skx964 eGFR 91 ml/min/1.73m2 09/23/2017 Comp Metabolic Qge739 BUN 11 mg/dL 09/23/2017 Comp Metabolic Dau218 B/C Ratio 16.4 Ratio 09/23/2017 Comp Metabolic Puj549 CALCIUM 9.0 mg/dL 09/23/2017 Comp Metabolic Tlz070 ALK PHOS 76 U/L 09/23/2017 Comp Metabolic Rqf902 AST(SGOT) 24 U/L 09/23/2017 Comp Metabolic Ssj048 ALT(SGPT) 21 U/L 09/23/2017 Comp Metabolic Xsd023 BILI T 0.3 mg/dL 09/23/2017 Comp Metabolic Zod426 ALBUMIN 4.1 g/dL 09/23/2017 Comp Metabolic Jbm646 TPRO 6.2 g/dL 09/23/2017 Comp Metabolic Atb839 GLOB 2.1 g/dL 09/23/2017 Comp Metabolic Fco172 A/G Ratio 1.9 Ratio 09/23/2017 Comp Metabolic Xvj982 Osmo 277 mOsmo 09/23/2017 Sed Rate Ord21 ESR 3 mm/hr 09/22/2017 Vitamin D 25 Oh Dav1273 VITAMIN D, 25 HYDROXY 78.79 ng/mL Tsh [...] 97.1 fl 09/22/2017 Cbc With Differential Ord2 [place]% 10.5 % 09/22/2017 Cbc With Differential Ord2 [...] 2.37 K/ul 09/22/2017 Cbc With Differential Ord2 [place] ABS# 0.9 K/ul 09/22/2017 Cbc With Differential Ord2 Eos ABS# 0.2 K/ul 09/22/2017 Cbc With Differential Ord2 Baso ABS# 0.0 K/ul 09/22/2017 Free T4 Vix225 FREE T4 0.99 ng/dL 09/22/2017 %Hba1C Mak619 % HbA1c 98551-3 6.0 % 12/10/2016 %Hba1C Arb246 Gluc Ave 126 mg/dL 12/10/2016 Tsh Ord6 hTSH II 0.89 uIU/mL 12/09/2016 Free T4 Xsw387 FREE T4 0.99 ng/dL 12/09/2016 Comp Metabolic Keh487 NA 138 mEq/L 12/09/2016 Comp Metabolic Cos412 K 5.2 mEq/L 12/09/2016 Comp Metabolic Tws395 CL 104 mEq/L 12/09/2016 Comp Metabolic Aud260 CO2 29.0 mEq/L 12/09/2016 Comp Metabolic Wgh963 ANION GAP 10 12/09/2016 Comp Metabolic Ify478 GLUCOSE 135 mg/dL 12/09/2016 Comp Metabolic Agd814 Creat 0.8 mg/dL 12/09/2016 Comp Metabolic Fvs603 eGFR 79 ml/min/1.73m2 12/09/2016 Comp Metabolic Mid708 BUN 18 mg/dL 12/09/2016 Comp Metabolic Omg522 B/C Ratio 23.7 Ratio 12/09/2016 Comp Metabolic Ptc977 CALCIUM 9.5 mg/dL 12/09/2016 Comp Metabolic Bfd968 ALK PHOS 73 U/L 12/09/2016 Comp Metabolic Kng777 AST(SGOT) 24 U/L 12/09/2016 Comp Metabolic Hep597 ALT(SGPT) 20 U/L 12/09/2016 Comp Metabolic Asd126 BILI T 0.3 mg/dL 12/09/2016 Comp Metabolic Vnu419 ALBUMIN 4.3 g/dL 12/09/2016 Comp Metabolic Pql552 TPRO 6.4 g/dL 12/09/2016 Comp Metabolic Prn098 GLOB 2.1 g/dL 12/09/2016 Comp Metabolic Kch332 A/G Ratio 2.0 Ratio 12/09/2016 Comp Metabolic Hts639 Osmo 280 mOsmo 12/09/2016 Cbc With Differential [...] 31.3 pg 12/09/2016 Cbc With Differential Ord2 [place]% 6.5 % 12/09/2016 Cbc With Differential Ord2 [...] 1.84 K/ul 12/09/2016 Cbc With Differential Ord2 [place] ABS# 0.6 K/ul 12/09/2016 Cbc With Differential Ord2 Eos ABS# 0.1 K/ul 12/09/2016 Cbc With Differential Ord2 Baso ABS# 0.1 K/ul 12/09/2016 Tsh Ord6 hTSH II 1.19 uIU/mL 09/02/2016 Free T4 Xog998 FREE T4 0.97 ng/dL 09/02/2016 Comp Metabolic Gub893 NA 137 mEq/L 06/01/2016 Comp Metabolic Lal539 K 4.1 mEq/L 06/01/2016 Comp Metabolic Okh064 CL 104 mEq/L 06/01/2016 Comp Metabolic Whh137 CO2 25.0 mEq/L 06/01/2016 Comp Metabolic Pxn842 ANION GAP 12 06/01/2016 Comp Metabolic Iad286 GLUCOSE 108 mg/dL 06/01/2016 Comp Metabolic Hus116 Creat 0.8 mg/dL 06/01/2016 Comp Metabolic Ghk660 eGFR 80 ml/min/1.73m2 06/01/2016 Comp Metabolic Qbc613 BUN 15 mg/dL 06/01/2016 Comp Metabolic Zht238 B/C Ratio 20.0 Ratio 06/01/2016 Comp Metabolic Nmv806 CALCIUM 9.1 mg/dL 06/01/2016 Comp Metabolic Guc745 ALK PHOS 89 U/L 06/01/2016 Comp Metabolic Kiu482 AST(SGOT) 25 U/L 06/01/2016 Comp Metabolic Fyd788 ALT(SGPT) 20 U/L 06/01/2016 Comp Metabolic Ckl308 BILI T 0.3 mg/dL 06/01/2016 Comp Metabolic Wnf817 ALBUMIN 4.2 g/dL 06/01/2016 Comp Metabolic Hzy591 TPRO 6.2 g/dL 06/01/2016 Comp Metabolic Flj529 GLOB 2.0 g/dL 06/01/2016 Comp Metabolic Mwd467 A/G Ratio 2.1 Ratio 06/01/2016 Comp Metabolic Kdm581 Osmo 275 mOsmo 06/01/2016 Free T4 Ndi445 FREE T4 0.94 ng/dL 06/01/2016 Tsh Ord6 [...] 31.1 pg 06/01/2016 Cbc With Differential Ord2 [place]% 8.4 % 06/01/2016 Cbc With Differential Ord2 [...] 2.96 K/ul 06/01/2016 Cbc With Differential Ord2 [place] ABS# 0.6 K/ul 06/01/2016 Cbc With Differential [...] 31.3 pg 02/27/2016 Cbc With Differential Ord2 [place]% 10.0 % 02/27/2016 Cbc With Differential Ord2 [...] 2.28 K/ul 02/27/2016 Cbc With Differential Ord2 [place] ABS# 0.9 K/ul 02/27/2016 Cbc With Differential Ord2 Eos ABS# 0.3 K/ul 02/27/2016 Cbc With Differential Ord2 Baso ABS# 0.1 K/ul 02/27/2016 Tsh Ord6 hTSH II 0.18 uIU/mL 02/27/2016 Free T4 Ana020 FREE T4 1.17 ng/dL 02/27/2016 Comp Metabolic Jwd520 NA 135 mEq/L 02/27/2016 Comp Metabolic Hrk735 K 5.2 mEq/L 02/27/2016 Comp Metabolic Uci039 CL 102 mEq/L 02/27/2016 Comp Metabolic Mdx251 CO2 27.0 mEq/L 02/27/2016 Comp Metabolic Nyu382 ANION GAP 11 02/27/2016 Comp Metabolic Dkr409 GLUCOSE 93 mg/dL 02/27/2016 Comp Metabolic Lom505 Creat 0.7 mg/dL 02/27/2016 Comp Metabolic Mie943 eGFR 91 ml/min/1.73m2 02/27/2016 Comp Metabolic Ehf470 BUN 14 mg/dL 02/27/2016 Comp Metabolic Zvt628 B/C Ratio 20.9 Ratio 02/27/2016 Comp Metabolic Gvb031 CALCIUM 9.4 mg/dL 02/27/2016 Comp Metabolic Soe128 ALK PHOS 100 U/L 02/27/2016 Comp Metabolic Wfm462 AST(SGOT) 23 U/L 02/27/2016 Comp Metabolic Npz044 ALT(SGPT) 24 U/L 02/27/2016 Comp Metabolic Vow421 BILI T 0.2 mg/dL 02/27/2016 Comp Metabolic Rmj627 ALBUMIN 4.3 g/dL 02/27/2016 Comp Metabolic Ulc670 TPRO 6.3 g/dL 02/27/2016 Comp Metabolic Riq956 GLOB 2.1 g/dL 02/27/2016 Comp Metabolic Kpi667 A/G Ratio 2.1 Ratio 02/27/2016 Comp Metabolic Kpc821 Osmo 270 mOsmo 02/27/2016 Free T4 Sxa934 FREE T4 1.03 ng/dL 05/10/2015 Comp Metabolic Lzq195 NA 137 mEq/L 05/10/2015 Comp Metabolic Vns826 K 4.4 mEq/L 05/10/2015 Comp Metabolic Dit429 CL 102 mEq/L 05/10/2015 Comp Metabolic Puk927 CO2 28.0 mEq/L 05/10/2015 Comp Metabolic Wdm968 ANION GAP 11 05/10/2015 Comp Metabolic Zbm912 GLUCOSE 108 mg/dL 05/10/2015 Comp Metabolic Pka402 Creat 0.7 mg/dL 05/10/2015 Comp Metabolic Qcd394 eGFR 86 ml/min/1.73m2 05/10/2015 Comp Metabolic Pms166 BUN 13 mg/dL 05/10/2015 Comp Metabolic Vwp734 B/C Ratio 18.3 Ratio 05/10/2015 Comp Metabolic Efp771 CALCIUM 9.4 mg/dL 05/10/2015 Comp Metabolic Dpp688 ALK PHOS 94 U/L 05/10/2015 Comp Metabolic Nwt564 AST(SGOT) 22 U/L 05/10/2015 Comp Metabolic Uhz778 ALT(SGPT) 21 U/L 05/10/2015 Comp Metabolic Wyj512 BILI T 0.3 mg/dL 05/10/2015 Comp Metabolic Asz610 ALBUMIN 3.9 g/dL 05/10/2015 Comp Metabolic Vuc130 TPRO 6.1 g/dL 05/10/2015 Comp Metabolic Vcp355 GLOB 2.2 g/dL 05/10/2015 Comp Metabolic Fos442 A/G Ratio 1.7 Ratio 05/10/2015 Comp Metabolic Wyx008 Osmo 274 mOsmo 05/10/2015 Tsh Ord6 hTSH [...] 29.4 pg 05/10/2015 Cbc With Differential Ord2 [place]% 9.0 % 05/10/2015 Cbc With Differential Ord2 [...] 2.14 K/ul 05/10/2015 Cbc With Differential Ord2 [place] ABS# 0.5 K/ul 05/10/2015 Cbc With Differential [...] Ord30 C/HDL 3.8 Ratio 05/10/2015 Culture Urine [id number] URINE CULTURE SEE NOTES 02/25/2015 Culture Urine [id number] Continued Results 02/25/2015 Urine Culture Ucult Complete >100,000 col/ml aerobic growth sent to ref lab 02/22/2015 Free T4 Ntz042 FREE T4 1.16 ng/dL 02/11/2015 Tsh Ord6 [...] Procedure Codes Date THER/PROPH/DIAG INJ SC/IM CPT-4: 81659 04/08/2018 ROCEPHIN, PER 250 MG CPT-4: J0696 04/08/2018 THER/PROPH/DIAG INJ SC/IM CPT-4: 60956 04/07/2018 ROCEPHIN, PER 250 MG CPT-4: J0696 04/07/2018 THER/PROPH/DIAG INJ SC/IM CPT-4: 53204 04/06/2018 ROCEPHIN, PER 250 MG CPT-4: J0696 04/06/2018 THER/PROPH/DIAG INJ SC/IM CPT-4: 13856 04/05/2018 ROCEPHIN, PER 250 MG CPT-4: J0696 04/05/2018 KETOROLAC TROMETHAMINE INJ CPT-4: J1885 04/05/2018 THER/PROPH/DIAG INJ SC/IM CPT-4: 03564 04/04/2018 ROCEPHIN, PER 250 MG CPT-4: J0696 04/04/2018 KETOROLAC TROMETHAMINE INJ CPT-4: J1885 04/04/2018 URINALYSIS NONAUTO W/O SCOPE CPT-4: 55320 03/24/2018 PPPS, SUBSEQ VISIT CPT -4: G0439 12/24/2017 THER/PROPH/DIAG INJ SC/IM CPT-4: 96098 12/24/2017 TRIAMCINOLONE ACET INJ NOS CPT-4: J3301 12/24/2017 THER/PROPH/DIAG INJ SC/IM CPT-4: 52201 11/18/2017 ROCEPHIN, PER 250 MG CPT-4: J0696 11/18/2017 PRESCRIP TRANSMIT VIA ERX SY CPT-4: G8553 04/01/2017 TRIAMCINOLONE ACET INJ NOS CPT-4: J3301 03/25/2017 PPPS, SUBSEQ VISIT CPT -4: G0439 12/23/2016 THER/PROPH/DIAG INJ SC/IM CPT-4: 41624 12/08/2016 TRIAMCINOLONE ACET INJ NOS CPT-4: J3301 12/08/2016 PRESCRIP TRANSMIT VIA ERX SY CPT-4: G8553 12/08/2016 PRESCRIP TRANSMIT VIA ERX SY CPT-4: G8553 11/30/2016 URINALYSIS NONAUTO W/O SCOPE CPT-4: 85097 07/08/2016 PRESCRIP TRANSMIT VIA ERX SY CPT-4: G8553 06/01/2016 PRESCRIP TRANSMIT VIA ERX SY CPT-4: G8553 02/27/2016 THER/PROPH/DIAG INJ SC/IM CPT-4: 23992 03/01/2015 ROCEPHIN, PER 250 MG CPT-4: J0696 03/01/2015 THER/PROPH/DIAG INJ SC/IM CPT-4: 85569 02/28/2015 ROCEPHIN, PER 250 MG CPT-4: J0696 02/28/2015 THER/PROPH/DIAG INJ SC/IM CPT-4: 20320 02/27/2015 ROCEPHIN, PER 250 MG CPT-4: J0696 02/27/2015 THER/PROPH/DIAG INJ SC/IM CPT-4: 44822 02/26/2015 ROCEPHIN, PER 250 MG CPT-4: J0696 02/26/2015 THER/PROPH/DIAG INJ SC/IM CPT-4: 47085 02/25/2015 ROCEPHIN, PER 250 MG CPT-4: J0696 02/25/2015 URINALYSIS NONAUTO W/O SCOPE CPT-4: 47718 02/21/2015 Vital Signs Date Vital 04/21/2018 Blood [...] Code : 8480-6 BMI: 27.8 Code : 08226-7 Heart Rate 1 : 85 bpm Height: 5'3" SpO2: 96% Weight: 157 lbs 03/24/2018 Blood Pressure 1: 128/82 Code : 8480-6 BMI: 27.8 Code : 72727-8 Heart Rate 1 : 84 bpm Height: 5'3" SpO2: 97% Weight: 157 lbs 03/01/2018 Blood Pressure 1: 136/70 Code : 8480-6 BMI: 27.8 Code : 58688-9 Heart Rate 1 : 70 bpm Height: 5'3" SpO2: 96% Weight: 157 lbs 12/24/2017 Height: Weight: 11/18/2017 Blood Pressure 1: 164/74 Code : 8480-6 BMI: 27.6 Code : 49431-4 Heart Rate 1 : 70 bpm Height: 5'3" SpO2: 96% Weight: 156 lbs 11/03/2017 Blood Pressure 1: 118/72 Code : 8480-6 BMI: 27.6 Code : 39635-7 Heart Rate 1 : 82 bpm Height: 5'3" SpO2: 96% Weight: 156 lbs 09/22/2017 Blood Pressure 1: 136/68 Code : 8480-6 BMI: 27.6 Code : 95532-7 Heart Rate 1 : 70 bpm Height: 5'3" SpO2: 97% Weight: 156 lbs 04/01/2017 Blood Pressure 1: 144/82 Code : 8480-6 Heart Rate 1: 68 bpm Height: 5'3" SpO2: 97% Weight: 03/25/2017 Blood Pressure 1: 116/70 Code : 8480-6 BMI: 26.7 Code : 91491-2 Heart Rate 1 : 67 bpm Height: 5'3" SpO2: 98% Weight: 151 lbs 12/23/2016 BMI: 26.7 Code: 77414-8 Height: 5'3" Weight: 151 lbs 12/22/2016 Blood Pressure 1: 142/60 Code : 8480-6 BMI: 26.7 Code : 43177-9 Heart Rate 1 : 67 bpm Height: 5'3" SpO2: 98% Weight: 151 lbs 12/08/2016 Blood Pressure 1: 140/72 Code : 8480-6 Heart Rate 1: 72 bpm Height: 5'3" SpO2: 97% Weight: 11/30/2016 Blood Pressure 1: 128/80 Code : 8480-6 BMI: 26.7 Code : 38885-5 Heart Rate 1 : 63 bpm Height: 5'3" SpO2: 96% Weight: 151 lbs 09/28/2016 Blood Pressure 1: 130/80 Code : 8480-6 BMI: 27.1 Code : 39706-4 Heart Rate 1 : 80 bpm Height: 5'3" SpO2: 97% Weight: 153 lbs 07/06/2016 Blood Pressure 1: 162/72 Code : 8480-6 BMI: 27.6 Code : 85459-0 Heart Rate 1 : 72 bpm Height: 5'3" SpO2: 98% Weight: 156 lbs 06/01/2016 Blood Pressure 1: 122/66 Code : 8480-6 BMI: 27.5 Code : 12525-5 Heart Rate 1 : 73 bpm Height: 5'3" SpO2: 98% Weight: 155 lbs 8 oz 02/27/2016 Blood Pressure 1: 126/68 Code : 8480-6 BMI: 26.9 Code : 23876-1 Heart Rate 1 : 70 bpm Height: 5'3" SpO2: 98% Weight: 152 lbs 09/10/2015 Blood Pressure 1: 130/70 Code : 8480-6 BMI: 26.9 Code : 70029-0 Heart Rate 1 : 72 bpm Height: 5'3" SpO2: 97% Weight: 152 lbs 05/14/2015 Blood Pressure 1: 138/82 Code : 8480-6 BMI: 26.4 Code : 58924-3 Heart Rate 1 : 75 bpm Height: 5'3" SpO2: 98% Weight: 149 lbs 02/11/2015 Blood Pressure 1: 128/72 Code : 8480-6 BMI: 25.5 Code : 55379-9 Heart Rate 1 : 73 bpm Height: [...] data Encounters Encounter Performer Location Codes Date 09082 EST. PATIENT, LEVEL IV Diagnosis: Low back pain[ICD10: M54.5] Diagnosis: Essential (primary) hypertension[ICD10: I10] Diagnosis: Other fatigue[ICD10: R53.83] Diagnosis: Other malaise[ICD10: R53.81] Bridget Cortez MD, [facility] CPT-4 : 90284 04/21/2018 88360 EST. PATIENT, LEVEL III Diagnosis: Other fatigue[ICD10: R53.83] Diagnosis: Otalgia, right ear[ICD10: H92.01] Bridget Cortez MD, [facility] CPT -4: 66092 04/13/2018 ([id number]) 88314 EST. PATIENT, LEVEL III Diagnosis: Essential (primary) hypertension[ICD10: I10] Diagnosis: Dysuria[ICD10: R30.0] Diagnosis: Nausea[ICD10: R11.0] Diagnosis: Headache[ICD10: R51] Elen Cortez MD, [facility] CPT-4: 45781 04/04/2018 80562 EST. PATIENT, LEVEL III Diagnosis: Other acute sinusitis[ICD10: J01.80] Diagnosis: Dizziness and giddiness[ICD10: R42] Diagnosis: Dysuria[ICD10: R30.0] Diagnosis: Candidal stomatitis[ICD10: B37.0] Diagnosis: Essential (primary) hypertension[ICD10: I10] Diagnosis: Other fatigue[ICD10: R53.83] Diagnosis: Other malaise[ICD10: R53.81] Bridget Cortez MD, [facility] CPT-4 : 51587 04/01/2018 ([id number]) 56217 EST. 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 PATIENT, LEVEL IV Diagnosis: Otalgia, right ear[ICD10: H92.01] Diagnosis: Headache[ICD10: R51] Diagnosis: Other fatigue[ICD10: R53.83] Diagnosis: Abnormal findings on diagnostic imaging of other specified body structures[ICD10: R93.89] Elen Cortez MD, [facility] CPT-4: 08370 03/01/2018 68119 EST. PATIENT, LEVEL III Diagnosis: Acute cystitis with hematuria[ICD10: N30.01] Bridget Cortez MD, [facility] CPT-4: 28401 11/18/2017 42950 EST. PATIENT, LEVEL IV Diagnosis: Other acute sinusitis[ICD10: J01.80] Diagnosis: Otalgia, right ear[ICD10: H92.01] Bridget Cortez MD, [facility] CPT -4: 02097 11/03/2017 27853 EST. PATIENT, LEVEL III Diagnosis: Other fatigue[ICD10: R53.83] Diagnosis: Other malaise[ICD10: R53.81] Diagnosis: Pain in left knee[ICD10: M25.562] Diagnosis: Pain in right knee[ICD10: M25.561] Bridget Cortez MD, [facility] CPT-4: 02123 09/22/2017 ([id number]) 36610 EST. PATIENT, LEVEL III Diagnosis: Cough[ICD10: R05] Diagnosis: Acute bronchitis due to other specified organisms[ICD10: J20.8] Elen Cortez MD, [facility] CPT-4: 24139 04/01/2017 ([id number]) 56006 EST. PATIENT, LEVEL III Diagnosis: Otalgia, right ear[ICD10: H92.01] Diagnosis: Other allergic rhinitis[ICD10: J30.89] Shiela Cortez MD, [facility] CPT-4: 45063 03/25/2017 ([id number]) 75393 EST. PATIENT, LEVEL III Diagnosis: Benign paroxysmal vertigo, bilateral[ICD10: H81.13] Shiela Cortez MD, [facility] CPT-4: 22204 12/22/2016 ([id number]) 75629 EST. PATIENT, LEVEL IV Diagnosis: Benign paroxysmal vertigo, bilateral[ICD10: H81.13] Diagnosis: Other allergic rhinitis[ICD10: J30.89] Diagnosis: Hypothyroidism, unspecified[ICD10: E03.9] Shiela Cortez MD, [facility] CPT-4: 14905 12/08/2016 ([id number]) 38992 EST. PATIENT, LEVEL IV Diagnosis: Atrophy of thyroid (acquired)[ICD10: E03.4] Diagnosis: Essential (primary) hypertension[ICD10: I10] Diagnosis: Mixed hyperlipidemia[ICD10: E78.2] Elen Cortez MD, [facility] CPT-4: 37035 11/30/2016 74970 EST. PATIENT, LEVEL IV Diagnosis: Headache[ICD10: R51] Diagnosis: Other fatigue[ICD10: R53.83] Diagnosis: Dizziness and giddiness[ICD10: R42] Bridget Cortez MD, [facility] CPT-4: 15741 09/28/2016 45041 EST. PATIENT, LEVEL IV Diagnosis: Essential (primary) hypertension[ICD10: I10] Diagnosis: Headache[ICD10: R51] Bridget Cortez MD, [facility] CPT-4: 77356 07/06/2016 ([id number]) 28968 EST. PATIENT, LEVEL IV Diagnosis: Essential (primary) hypertension[ICD10: I10] Diagnosis: Atrophy of thyroid (acquired)[ICD10: E03.4] Diagnosis: Mixed hyperlipidemia[ICD10: E78.2] Elen Cortez MD, [facility] CPT-4: 33067 06/01/2016 00692 EST. PATIENT, LEVEL IV Diagnosis: Acute laryngopharyngitis[ICD10: J06.0] Diagnosis: Other allergic rhinitis[ICD10: J30.89] Diagnosis: Other specified hypothyroidism[ICD10: E03.8] Diagnosis: Other fatigue[ICD10: R53.83] Bridget Cortez MD, [facility] CPT-4 : 18906 02/27/2016 ([id number]) 82505 EST. PATIENT, LEVEL III Diagnosis: Essential (primary) hypertension[ICD10: I10] Diagnosis: Mixed hyperlipidemia[ICD10: E78.2] Elen Cortez MD, [facility] CPT-4: 36161 09/10/2015 ([id number]) 32721 EST. PATIENT, LEVEL IV Diagnosis: Essential (primary) hypertension[ICD10: I10] Diagnosis: Hypothyroidism, unspecified[ICD10: E03.9] Diagnosis: Unspecified osteoarthritis, unspecified site[ICD10: M19.90] [facility] CPT-4: 77194 05/14/2015 ([id number]) OFFICE VISIT, NEW - LEVEL 4 Diagnosis: Essential (primary) hypertension[ICD10: I10] Diagnosis: Hypothyroidism, unspecified[ICD10: E03.9] Diagnosis: Unspecified osteoarthritis, unspecified site[ICD10: M19.90] [facility] CPT-4: 43268 02/11/2015 Plan of Care Planned Activity Notes [...] or concerns. 04/21/2018 Appointment: Bridget Velazco WPtel: [address] [place], [place] [id number] (15 min) Moderate 04/21/2018 Patient Education: Patient Medication Summary Completed 04/21/2018 Patient Education: Back Pain Completed 04/21/2018 Appointment: Bridget Velazco WPtel: [address] [place], [place] [id number] (15 min) Moderate 04/14/2018 Care Plan: Urine [...] Dr. Saini. 04/13/2018 Appointment: Bridget Velazco WPtel: [address] [place], [place] [phone] (30 min) Complex 04/13/2018 Patient Education: Patient Medication Summary Completed 04/13/2018 Appointment: Nurse Visit 04/08/2018 Appointment: Bridget Velazco WPtel: [phone] [facility] (15 min) Moderate 04/08/2018 Patient Education: Patient Medication Summary Completed 04/08/2018 Appointment: Injection 04/07/2018 Patient Education: Patient Medication Summary Completed 04/07/2018 Appointment: Injection 04/06/2018 Patient Education: Patient Medication Summary Completed 04/06/2018 Appointment: Injection 04/05/2018 Appointment: Elen Cortez WPtel: [phone] [facility] (15 min) Moderate 04/05/2018 Patient Education: [...] toradol today. 04/04/2018 App[facility]ment[phone] (10 min) Simple 04/04/2018 Patient Education: Patient Medication Summary Completed 04/04/2018 Patient Education: Patient Medication Summary Completed 04/04/2018 Patient Education: Patient Medication Summary Completed 04/04/2018 Care Plan: Referral Order SNOMED-CT : [id number] Pending 04/04/2018 Visit Plan: Dysuria, dizziness, fatigue, [...] improvement. 04/01/2018 Appointment[phone] ([facility] min) Moderate 04/01/2018 Patient Education: Patient Medication Summary Completed 04/01/2018 Visit Plan: Sinusitis - Pt has acute infection - pain in face, maxillary region, Pt informed to use decongestant, RX given to patient, sinus rinses also recommended. Call if symptoms do not show improvement. Dysuria - rx for antibiotic sent to pharmacy. 03/24/2018 Appointment: Elen Cortez WPtel: [phone] [facility] (15 min) Moderate 03/24/2018 Patient Education: [...] improve. 03/01/2018 Appointment: [phone] [facility] [place] (15 min) Moderate 03/01/2018 Patient [...] allergy spray. 12/24/2017 Appointment: Bridget Velazco WPtel: [facility] [place] [phone] [place] [address] - Annual Wellness Visit 12/24/2017 Patient Education: Patient Medication Summary Completed 12/24/2017 Appointment: Bridget Velazcotel: [address] [place], [place] [phone] (15 min) Moderate 11/30/2017 Appointment: Lab Draw [...] do not improve. 11/18/2017 Appointment: Bridget Velazcotel: [facility] (15 min) Moderate 11/18/2017 Patient Education: Patient Medication Summary Completed 11/18/2017 Visit Plan: Sinusitis - Pt has acute infection - pain in face, maxillary region, Pt informed to use decongestant, RX given to patient, sinus rinses also recommended. Call if symptoms do not show improvement. 11/03/2017 Appointment: Bridget Velazco WPtel: [phone] [place] [phone] (15 min) Moderate 11/03/2017 Patient Education: Patient [...] improve. 09/22/2017 Appointment: Bridget Velazco WPtel: [phone] (15 min) Moderate 09/22/2017 Patient Education: Patient Medication Summary Completed 09/22/2017 Visit Plan: Bronchitis - acute case of bronchitis identified. Pt has been given antibiotics, breathing treatments as appropriate, and pt has been instructed to call if symptoms are not improved, or if symptoms acutely worsen. 04/01/2017 Appointment: Elen Cortez WPtel: [facility] (15 min) Moderate 04/01/2017 [...] allergy spray. 03/25/2017 Appointment: Shiela Srivastava WPtel: [facility] [place] [phone] [place] (10 min) Simple 03/25/2017 Appointment: Elen Cortez WPtel: [facility] (15 min) Moderate 03/25/2017 Patient Education: [...] surrogate. 12/23/2016 Appointment: Bridget Velazco WPtel: [phone] [facility] [facility] - Annual Wellness Visit 12/23/2016 Patient Education: Patient Medication Summary Completed 12/23/2016 Visit Plan: Vertigo-discussed PT for vestibular exercises- patient wants to wait since symptoms are improving-continue anti histamine as directed-meclizine as needed 12/22/2016 Appointment: Shiela Srivastava WPtel: [phone] [phone] (30 min) Complex 12/22/2016 Patient Education: Patient [...] of control. 12/08/2016 Appointment: Shiela Srivastava WPtel: [phone] [phone] (30 min) Complex 12/08/2016 Patient Education: Patient [...] medications. 11/30/2016 Appointment: [phone] [place] (15 min) Moderate 11/30/2016 Patient [...] or concerns. 09/28/2016 Appointment: [facility]col[phone] (30 min) Complex 09/28/2016 Patient Education: [...] acute concerns. 07/06/2016 Appointment: [facility]azcotel[phone] [facility] (15 min) Moderate 07/06/2016 Patient Education: [...] not improving 06/01/2016 Appointment: Elen Cortez WPtel: [phone] [facility] (15 min) Moderate 06/01/2016 Patient Education: Patient [...] check labs 02/27/2016 Appointment: Bridget Velazco WPtel: [facility] (30 min) Complex 02/27/2016 Patient Education: Patient Medication Summary Completed 02/27/2016 Patient Education: Patient Medication Summary Completed 09/27/2015 Care Plan: [employer] : 28943-9 Pending 09/27/2015 Visit Plan: Hypertension - well [...] the colonoscopy 09/10/2015 Appointment: Elen Cortez [facility]Ptel: [phone] [facility] [place] (15 min) Moderate 09/10/2015 Patient Education: [...] Sanchez. 05/14/2015 Appointment: [facility] Cortez [facility]Ptel: [phone] [facility] [place] (15 min) Moderate 05/14/2015 Patient Education: Patient Medication Summary Completed 05/14/2015 Patient Education: Hypertension Completed 05/14/2015 Care Plan: Referral Order SNOMED-CT : [id number] Ordered 05/14/2015 Patient Education: Patient Medication Summary Completed 03/01/2015 Appointment: Nurse Visit 02/28/2015 Patient Education: Patient Medication Summary Completed 02/28/2015 Patient Education: Patient Medication Summary Completed 02/27/2015 Appointment: Nurse Visit 02/26/2015 Patient Education: Patient Medication Summary Completed 02/26/2015 Appointment: Injection 02/25/2015 Patient Education: Patient Medication Summary Completed 02/25/2015 Patient Education: Patient Medication Summary Completed 02/21/2015 Care Plan: URINALYSIS NONAUTO W/O SCOPE LOINC : 54356-1 Ordered 02/21/2015 Visit Plan: Hypertension - well [...] symptoms. 02/11/2015 Appointment: [facility] Cortez [facility]Ptel[phone] [facility] [facility] Patient 02/11/2015 Patient Education: Patient [...]
--- OUTSIDE RECORDS SUMMARY | 2018-06-01 12:40 | XMS REPORT | CCD ---
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 Name Role Phone PP Unavailable CCM Unavailable Summary Purpose Interface Exchange Insurance Providers Payer name Policy type / Coverage type Covered green party ID Effective Begin Date Effective End Date WPS Medicare Part B Medicare Part B [id number] Unknown [employer] Insurance Medicare Part B [id number] Unknown Family history Mother Diagnosis Age At [...] spouses - 02/11/[address]: 327100003 Never smoker 02/11/2015 Alcohol history Unknown occasionally drinks alcohol 02/11/2015 Allergies, Adverse Reactions, Alerts Substance Reaction Codes Entered Date Inactivated Date Status CODEINE RxNorm: 2670 02/11/2015 No Inactive Date Active allergy Unknown 12/23/2016 No Inactive Date Active ciprofloxacin rash, RxNorm: 24863 02/26/2015 No Inactive Date Active hydrocodone Unknown [...] Start Date Stop Date Status Fill Instructions ceftriaxone 500 mg solution for injection RxNorm: 8133377 Inj 04/08/2018 04/08/2018 Inactive ceftriaxone 500 mg solution for injection RxNorm: 0440651 Inj 04/07/2018 04/07/2018 Inactive ceftriaxone 500 mg solution for injection RxNorm: 6710094 Inj 04/06/2018 04/06/2018 Inactive ketorolac 60 mg/2 mL intramuscular solution RxNorm: 6216594 Milliliter(s) IM 04/05/2018 04/05/2018 Inactive ceftriaxone 500 mg solution for injection RxNorm: 6706634 Inj 04/05/2018 04/05/2018 Inactive ondansetron 4 mg disintegrating tablet RxNorm: 351378 1 Tablet(s) PO TID as needed nausea 04/04/2018 No Stop Date Active ketorolac 30 mg/mL injection solution RxNorm: 201844 2 Milliliter(s) Inj 04/04/2018 04/04/2018 Inactive ceftriaxone 500 mg solution for injection RxNorm: 4341989 Inj 04/04/2018 04/04/2018 Inactive nystatin 100,000 unit/mL oral suspension RxNorm: 767785 4 Milliliter(s) PO QID 04/01/2018 04/05/2018 Inactive doxycycline hyclate 100 mg tablet RxNorm: 9937025 1 Tablet(s) PO BID 04/01/2018 04/10/2018 Inactive prednisone 10 mg tablet RxNorm: 587480 1 Tablet(s) PO UD 6 pills on day 1 and 2 and then decrease by one pill every other day until prescription is done 03/24/2018 No Stop Date Active amoxicillin 500 mg capsule RxNorm: 046335 1 Capsule(s) PO TID 03/24/2018 04/02/2018 Inactive metoprolol succinate ER 50 mg tablet,extended release 24 hr RxNorm: 832539 Tablet (s) TAKE 1 TABLET BY MOUTH DAILY 03/21/2018 10/16/2018 Active PLEASE SEND REFILL REQUESTS ELECTRONICALLY!! Synthroid 88 mcg tablet RxNorm: 018769 TAKE 1 TABLET BY MOUTH DAILY 03/08/2018 08/04/2018 Active 03/07/2018 11:21:21 AM pravastatin 80 mg tablet RxNorm: 144888 Tablet(s) 1 Tablet(s) PO daily 03/01/2018 02/23/2019 Active Kenalog 40 mg/mL suspension for injection RxNorm: 9880482 Milliliter(s) Inj 12/24/2017 12/24/2017 Inactive cetirizine 10 mg tablet RxNorm: 5567693 TAKE 1 TABLET BY MOUTH DAILY 12/21/2017 07/18/2018 Active Generic For:*ZYRTEC 10 MG TABLET 12/21/2017 10:08:05 AM Synthroid 88 mcg tablet RxNorm: 996677 TAKE 1 TABLET BY MOUTH DAILY 12/07/2017 03/06/2018 Inactive 12/06/2017 11:46:49 AM Lipitor 80 mg tablet RxNorm: 217754 1 Tablet(s) PO daily 201702/28/2018 Inactive pravastatin 80 mg tablet RxNorm: 676736 1 Tablet(s) PO daily 11/29/2017 Inactive Lipitor 80 mg tablet RxNorm: 885030 1 Tablet(s) PO daily 201711/28/2017 Inactive lisinopril 20 mg tablet RxNorm: 004539 TAKE 1 TABLET BY MOUTH TWICE DAILY 11/23/2017 04/21/2018 Inactive Generic For:*PRINIVIL 20 MG TABLET 11/23/2017 11:29 :44 AM Macrobid 100 mg capsule RxNorm: 232337 1 Capsule(s) PO BID 06/201711/25/2017 Inactive Macrobid 100 mg capsule RxNorm: 387844 1 Capsule(s) PO BID 06/201711/18/2017 Inactive Lomotil 2.5 mg-0.025 mg tablet RxNorm: 7936620 1 -2 Tablet(s) PO TID as needed 11/19/2017 11/25/2017 Inactive Lomotil 2.5 mg-0.025 mg tablet RxNorm: 4856290 1 -2 Tablet(s) PO TID as needed 11/19/2017 11/18/2017 Inactive Pyridium 200 mg tablet RxNorm: 3985070 1 Tablet(s) PO TID as needed 11/18/2017 11/22/2017 Inactive Augmentin 500 mg-125 mg tablet RxNorm: 498588 1 Tablet(s) PO TID 11/18/2017 11/27/2017 Inactive Keflex 500 mg capsule RxNorm: 874713 1 Capsule(s) PO TID 201711/09/2017 Inactive Denavir 1 % topical cream RxNorm: 263226 1 TOP TID as needed cold sores 11/01/2017 01/29/2018 Inactive Denavir 1 % topical cream RxNorm: 413137 1 TOP TID as needed cold sores 11/01/2017 10/31/2017 Inactive Synthroid 88 mcg tablet RxNorm: 727119 TAKE 1 TABLET BY MOUTH DAILY 09/29/2017 11/27/2017 Inactive 09/29/2017 12:58:07 PM pravastatin 80 mg tablet RxNorm: 509266 1 Tablet(s) PO daily 08/30/2017 Inactive pravastatin 80 mg tablet RxNorm: 217388 1 Tablet(s) PO daily 11/28/2017 Inactive Synthroid 88 mcg tablet RxNorm: 073184 TAKE 1 TABLET BY MOUTH DAILY 08/30/2017 09/28/2017 Inactive 08/30/2017 10:53:26 AM metoprolol succinate ER 50 mg tablet,extended release 24 hr RxNorm: 139273 Tablet (s) TAKE 1 TABLET BY MOUTH DAILY 08/17/2017 03/14/2018 Inactive PLEASE SEND REFILL REQUESTS ELECTRONICALLY!! lisinopril 20 mg tablet RxNorm: 603489 TAKE 1 TABLET BY MOUTH TWICE DAILY 06/18/2017 11/14/2017 Inactive Generic For:*PRINIVIL 20 MG TABLET 06/18/2017 1:31: 00 PM Synthroid 88 mcg tablet RxNorm: 960412 TAKE 1 TABLET BY MOUTH DAILY 05/24/2017 08/21/2017 Inactive 05/24/2017 2:13:21 PM cetirizine 10 mg tablet RxNorm: 4107635 1 Tablet(s) PO daily 12/12/2017 Inactive Zithromax Z-Russell 250 mg capsule RxNorm: 725890 1 Capsule(s) PO 04/02/2017 04/05/2017 Inactive Zithromax Z-Russell 250 mg tablet RxNorm: 708147 1 Tablet(s) PO 04/01/2017 Inactive Zithromax Z-Russell 250 mg capsule RxNorm: 583206 1 Capsule(s) PO 04/02/2017 04/01/2017 Inactive Zithromax Z-Russell 250 mg tablet RxNorm: 440740 1 Tablet(s) PO 04/06/2017 Inactive Ventolin HFA 90 mcg/actuation aerosol inhaler RxNorm: 670021 2 INH QID as needed - for the first 3 days inhale at least two puffs three times daily, then use as needed for shortness of breath 04/01/2017 04/30/2017 Inactive Keflex 500 mg capsule RxNorm: 182403 1 Capsule(s) PO TID 201604/01/2017 Inactive meclizine 25 mg tablet RxNorm: 752055 1 Tablet(s) PO Q6 PRN 1 Tablet(s) PO Q6 PRN 03/25/2017 No Stop Date Active dizziness meclizine 25 mg tablet RxNorm: 714485 Tablet(s) 1 Tablet(s) PO Q6 PRN 03/25/2017 03/24/2017 Inactive dizziness Kenalog 40 mg/mL suspension for injection RxNorm: 0684954 1 Milliliter(s) Inj 03/25/2017 03/25/2017 Inactive meclizine 25 mg tablet RxNorm: 750702 1 Tablet(s) PO Q6 PRN 03/24/2017 Inactive dizziness lisinopril 20 mg tablet RxNorm: 144008 1 Tablet(s) PO BID 01/1506/13/2017 Inactive metoprolol succinate ER 50 mg tablet,extended release 24 hr RxNorm: 021761 TAKE 1 TABLET BY MOUTH DAILY 01/07/20172017 Inactive Generic For:TOPROL XL 50MG TAB 01/07/2017 12:38:23 PM Synthroid 88 mcg tablet RxNorm: 292275 TAKE 1 TABLET BY MOUTH DAILY 12/25/2016 05/23/2017 Inactive 12/25/2016 9:47:08 AM Zithromax Z-Russell 250 mg tablet RxNorm: 131855 Tablet(s) PO UD 03/24/2017 Inactive meclizine 25 mg tablet RxNorm: 698307 1 Tablet(s) PO Q6 PRN 12/20/2016 Inactive dizziness Kenalog 40 mg/mL suspension for injection RxNorm: 1058695 Milliliter(s) Inj 12/08/2016 12/08/2016 Inactive meloxicam 15 mg tablet RxNorm: 092424 1 Tablet(s) PO daily 12/20/2016 Inactive cetirizine 10 mg tablet RxNorm: 1613132 1 Tablet(s) PO daily 05/16/2017 Inactive pravastatin 40 mg tablet RxNorm: 658229 1 Tablet(s) PO BID 07/201608/30/2017 Inactive Cancel 80 mg tab lisinopril 20 mg tablet RxNorm: 001412 1 Tablet(s) PO BID 08/1212/22/2016 Inactive Synthroid 88 mcg tablet RxNorm: 339643 1 Tablet(s) PO TAKE ONE (1) TABLET BY MOUTH DAILY 07/28/2016 12/24/2016 Inactive decrease dose hydralazine 25 mg tablet RxNorm: 156752 1 Tablet(s) PO TID as needed for Systolic blood pressure over 170 07/06/20162016 Inactive lisinopril 20 mg tablet RxNorm: 772245 1 Tablet(s) PO BID to replace your other lisinopril dose 07/06/2016 08/04/2016 Inactive lisinopril 10 mg tablet RxNorm: 577685 TAKE ONE TABLET BY MOUTH TWICE DAILY 06/10/2016 08/11/2016 Inactive Generic For:ZESTRIL 10 MG TABLET 06/09/2016 12:58: 50 PM triamcinolone acetonide 0.1 % topical cream RxNorm: 9607368 1 Application TOP TID as needed 06/01/2016 No Stop Date Active nystatin 100,000 unit/gram topical cream RxNorm: 008008 1 Gram(s) TOP TID as needed 06/01/2016 No Stop Date Active metoprolol succinate ER 50 mg tablet,extended release 24 hr RxNorm: 610954 1 Tablet(s) PO daily 05/26/2016 12/21/2016 Inactive cetirizine 10 mg tablet RxNorm: 6074239 1 Tablet(s) PO daily 10/18/2016 Inactive Synthroid 88 mcg tablet RxNorm: 989570 1 Tablet(s) PO TAKE ONE (1) TABLET BY MOUTH DAILY 03/06/2016 03/07/2018 Inactive Brand name only! Synthroid 88 mcg tablet RxNorm: 737778 1 Tablet(s) PO TAKE ONE (1) TABLET BY MOUTH DAILY 03/04/2016 03/05/2016 Inactive decrease dose cetirizine 10 mg tablet RxNorm: 1515428 1 Tablet(s) PO daily 03/22/2016 Inactive amoxicillin 500 mg capsule RxNorm: 303802 1 Capsule(s) PO TID 02/27/2016 03/04/2016 Inactive lisinopril 10 mg tablet RxNorm: 535775 TAKE ONE TABLET BY MOUTH TWICE DAILY 02/06/2016 06/04/2016 Inactive Generic For:ZESTRIL 10 MG TABLET 02/06/2016 12:16: 38 PM Synthroid 100 mcg tablet RxNorm: 677897 TAKE ONE (1) TABLET BY MOUTH DAILY 01/03/2016 03/03/2016 Inactive 01/03/2016 10:35:14 AM N O T I C E Last quantity doesn't match original quantity lisinopril 10 mg tablet RxNorm: 397074 1 Tablet(s) PO BID 10/0301/31/2016 Inactive Synthroid 100 mcg tablet RxNorm: 569728 1 Tablet(s) PO daily 01/02/2016 Inactive metoprolol succinate ER 50 mg tablet,extended release 24 hr RxNorm: 004035 1 Tablet(s) PO daily 10/04/2015 04/30/2016 Inactive Tylenol Arthritis 650 mg tablet,extended release RxNorm: 6164451 2 Tablet(s) PO TID 09/10/2015 No Stop Date Active metoprolol succinate ER 50 mg tablet,extended release 24 hr RxNorm: 014237 1 Tablet(s) PO daily 09/05/2015 10/03/2015 Inactive pravastatin 80 mg tablet RxNorm: 060629 1 Tablet(s) PO QHS 08/30/2015 Inactive pravastatin 40 mg tablet RxNorm: 337645 1 Tablet(s) PO BID 08/29/2015 Inactive Cancel 80 mg tab pravastatin 40 mg tablet RxNorm: 706439 1 Tablet(s) PO BID 08/19/2016 Inactive Cancel 80 mg tab lisinopril 10 mg tablet RxNorm: 552995 1 Tablet(s) PO BID 06/1308/11/2016 Inactive lisinopril 10 mg tablet RxNorm: 489656 1 Tablet(s) PO BID 06/1310/03/2015 Inactive Synthroid 100 mcg tablet RxNorm: 802497 1 Tablet(s) PO daily 10/03/2015 Inactive ceftriaxone 1 gram solution for injection RxNorm: 2340786 Inj 03/01/2015 03/01/2015 Inactive ceftriaxone 1 gram solution for injection RxNorm: 9734793 Inj 02/28/2015 02/28/2015 Inactive ceftriaxone 1 gram solution for injection RxNorm: 6772271 Inj 02/27/2015 02/27/2015 Inactive ceftriaxone 1 gram solution for injection RxNorm: 9115316 Inj 02/26/2015 02/26/2015 Inactive ceftriaxone 1 gram solution for injection RxNorm: 1306422 Inj 02/25/2015 02/25/2015 Inactive phenazopyridine 200 mg tablet RxNorm: 5188060 1 Tablet(s) PO Q8 02/21/2015 02/20/2015 Inactive Cipro 500 mg tablet RxNorm: 260246 1 Tablet(s) PO BID 201402/20/2015 Inactive phenazopyridine 200 mg tablet RxNorm: 5828338 1 Tablet(s) PO Q8 02/21/2015 02/25/2015 Inactive Cipro 500 mg tablet RxNorm: 559893 1 Tablet(s) PO BID 201402/27/2015 Inactive lisinopril 10 mg tablet RxNorm: 939051 1 Tablet(s) PO BID 02/1406/12/2015 Inactive metoprolol succinate ER 50 mg tablet,extended release 24 hr RxNorm: 456785 3/4 Tablet(s) PO daily 02/11/2015 09/04/2015 Inactive Voltaren 1 % topical gel RxNorm: 521194 2 Gram(s) TOP QID use this on affected joints up to four times daily. 02/11/2015 03/12/2015 Inactive Probiotic oral RxNorm : 6205 oral No Start Date Active aspirin 81 mg tablet RxNorm: 747815 1 Tablet(s) PO daily No Start Date Active Super B-Complex tablet RxNorm: 1 Tablet(s) PO No Start Date Active Flonase Allergy Relief 50 mcg/actuation nasal spray, suspension RxNorm: 3684671 1 Cando NASAL BID No Start Date Active Super-D3+ oral RxNorm : oral No Start Date Active Prilosec OTC 20 mg tablet,delayed release RxNorm: 171146 2 Tablet(s) PO QAM No Start Date Active Flonase Allergy Relief 50 mcg/actuation nasal spray, suspension RxNorm: 4715855 1 Cando NASAL as needed No Start Date Active Move Free Ultra 40 mg-10 mg-3.3 mg tablet RxNorm: 1 Tablet(s) PO daily No Start Date Active metoprolol tartrate 50 mg tablet RxNorm: 917135 1 Tablet(s) PO daily No Start Date 02/10/2015 Inactive lisinopril 10 mg tablet RxNorm: 376181 1 Tablet(s) PO BID No Start Date 02/13/2015 Inactive pravastatin 80 mg tablet RxNorm: 375603 1 Tablet(s) PO daily No Start Date 08/29/2015 Inactive Synthroid 100 mcg tablet RxNorm: 676001 1 Tablet(s) PO daily No Start Date 06/09/2015 Inactive lisinopril 40 mg tablet RxNorm: 084552 1 Tablet(s) PO BID No Start Date 02/28/2018 Inactive Tylenol Arthritis 650 mg tablet,extended release RxNorm: 2749436 4 Tablet(s) PO daily No Start Date 09/09/2015 Inactive Medication Administered Medication Codes Instructions Start Date Status ceftriaxone 500 mg solution for injection RxNorm: 2712132 04/08/2018 No longer Active ceftriaxone 500 mg solution for injection RxNorm: 4550566 04/07/2018 No longer Active ceftriaxone 500 mg solution for injection RxNorm: 6795185 04/06/2018 No longer Active ceftriaxone 500 mg solution for injection RxNorm: 3270344 04/05/2018 No longer Active ketorolac 60 mg/2 mL intramuscular solution RxNorm: 4196268 Milliliter 04/05/2018 No longer Active ceftriaxone 500 mg solution for injection RxNorm: 4661611 04/04/2018 No longer Active ketorolac 30 mg/mL injection solution RxNorm: 450559 2Milliliter 04/04/2018 No longer Active Kenalog 40 mg/mL suspension for injection RxNorm: 1860858 Milliliter 12/24/2017 No longer Active Kenalog 40 mg/mL suspension for injection RxNorm: 1926522 1Milliliter 03/25/2017 No longer Active Kenalog 40 mg/mL suspension for injection RxNorm: 1197125 Milliliter 12/08/2016 No longer Active ceftriaxone 1 gram solution for injection RxNorm: 1854262 03/01/2015 No longer Active ceftriaxone 1 gram solution for injection RxNorm: 5793564 02/28/2015 No longer Active ceftriaxone 1 gram solution for injection RxNorm: 5036023 02/27/2015 No longer Active ceftriaxone 1 gram solution for injection RxNorm: 6900242 02/26/2015 No longer Active ceftriaxone 1 gram solution for injection RxNorm: 1463898 02/25/2015 No longer Active Immunizations Vaccine Codes [...] Item Item Code Result Date Free T4 Evv053 FREE T4 1.07 ng/dL 04/04/2018 Tsh Ord6 TSH (3rd IS) 1.93 uIU/mL 04/04/2018 Urine Culture Ucult Preliminary NO Growth Day 1 03/28/2018 Urine Culture Ucult Complete NO Growth Day 2 03/28/2018 Urine Culture Ucult Complete >100,000 col/ml aerobic growth sent to ref lab 11/19/2017 B12 Nou759 B12 712.00 pg/ml 09/28/2017 C-Reactive Protein Qnt Crqnt CRP 0.1 mg/dl 09/23/2017 Comp Metabolic Hpo750 NA 139 mEq/L 09/23/2017 Comp Metabolic Egt094 K 4.8 mEq/L 09/23/2017 Comp Metabolic Aio537 CL 104 mEq/L 09/23/2017 Comp Metabolic Qmg416 CO2 28.0 mEq/L 09/23/2017 Comp Metabolic Inj239 ANION GAP 12 09/23/2017 Comp Metabolic Luy492 GLUCOSE 92 mg/dL 09/23/2017 Comp Metabolic Aqo314 Creat 0.7 mg/dL 09/23/2017 Comp Metabolic Ogz875 eGFR 91 ml/min/1.73m2 09/23/2017 Comp Metabolic Bqo855 BUN 11 mg/dL 09/23/2017 Comp Metabolic Quk881 B/C Ratio 16.4 Ratio 09/23/2017 Comp Metabolic Fbg992 CALCIUM 9.0 mg/dL 09/23/2017 Comp Metabolic Sxh773 ALK PHOS 76 U/L 09/23/2017 Comp Metabolic Mod940 AST(SGOT) 24 U/L 09/23/2017 Comp Metabolic Vfm788 ALT(SGPT) 21 U/L 09/23/2017 Comp Metabolic Fbh984 BILI T 0.3 mg/dL 09/23/2017 Comp Metabolic Dvb269 ALBUMIN 4.1 g/dL 09/23/2017 Comp Metabolic Wes521 TPRO 6.2 g/dL 09/23/2017 Comp Metabolic Jhm294 GLOB 2.1 g/dL 09/23/2017 Comp Metabolic Keq660 A/G Ratio 1.9 Ratio 09/23/2017 Comp Metabolic Vxk873 Osmo 277 mOsmo 09/23/2017 Sed Rate Ord21 ESR 3 mm/hr 09/22/2017 Vitamin D 25 Oh Ina0232 VITAMIN D, 25 HYDROXY 78.79 ng/mL Tsh [...] 97.1 fl 09/22/2017 Cbc With Differential Ord2 Frontier% 10.5 % 09/22/2017 Cbc With Differential Ord2 [...] 2.37 K/ul 09/22/2017 Cbc With Differential Ord2 Frontier ABS# 0.9 K/ul 09/22/2017 Cbc With Differential Ord2 Eos ABS# 0.2 K/ul 09/22/2017 Cbc With Differential Ord2 Baso ABS# 0.0 K/ul 09/22/2017 Free T4 Xso033 FREE T4 0.99 ng/dL 09/22/2017 %Hba1C Loz613 % HbA1c 12693-3 6.0 % 12/10/2016 %Hba1C Vss261 Gluc Ave 126 mg/dL 12/10/2016 Tsh Ord6 hTSH II 0.89 uIU/mL 12/09/2016 Free T4 Zfk230 FREE T4 0.99 ng/dL 12/09/2016 Comp Metabolic Dix895 NA 138 mEq/L 12/09/2016 Comp Metabolic Vde003 K 5.2 mEq/L 12/09/2016 Comp Metabolic Ixc604 CL 104 mEq/L 12/09/2016 Comp Metabolic Eps565 CO2 29.0 mEq/L 12/09/2016 Comp Metabolic Yvi065 ANION GAP 10 12/09/2016 Comp Metabolic Vxd992 GLUCOSE 135 mg/dL 12/09/2016 Comp Metabolic Pmv416 Creat 0.8 mg/dL 12/09/2016 Comp Metabolic Mvv964 eGFR 79 ml/min/1.73m2 12/09/2016 Comp Metabolic Jaf237 BUN 18 mg/dL 12/09/2016 Comp Metabolic Pwx420 B/C Ratio 23.7 Ratio 12/09/2016 Comp Metabolic Opy779 CALCIUM 9.5 mg/dL 12/09/2016 Comp Metabolic Fjt115 ALK PHOS 73 U/L 12/09/2016 Comp Metabolic Etb550 AST(SGOT) 24 U/L 12/09/2016 Comp Metabolic Qzt169 ALT(SGPT) 20 U/L 12/09/2016 Comp Metabolic Pyj896 BILI T 0.3 mg/dL 12/09/2016 Comp Metabolic Vga256 ALBUMIN 4.3 g/dL 12/09/2016 Comp Metabolic Prt299 TPRO 6.4 g/dL 12/09/2016 Comp Metabolic Wwx467 GLOB 2.1 g/dL 12/09/2016 Comp Metabolic Wmk524 A/G Ratio 2.0 Ratio 12/09/2016 Comp Metabolic Kpx987 Osmo 280 mOsmo 12/09/2016 Cbc With Differential [...] 31.3 pg 12/09/2016 Cbc With Differential Ord2 Frontier% 6.5 % 12/09/2016 Cbc With Differential Ord2 [...] 1.84 K/ul 12/09/2016 Cbc With Differential Ord2 Frontier ABS# 0.6 K/ul 12/09/2016 Cbc With Differential Ord2 Eos ABS# 0.1 K/ul 12/09/2016 Cbc With Differential Ord2 Baso ABS# 0.1 K/ul 12/09/2016 Tsh Ord6 hTSH II 1.19 uIU/mL 09/02/2016 Free T4 Rpr119 FREE T4 0.97 ng/dL 09/02/2016 Comp Metabolic Qju443 NA 137 mEq/L 06/01/2016 Comp Metabolic Hlf253 K 4.1 mEq/L 06/01/2016 Comp Metabolic Rdk212 CL 104 mEq/L 06/01/2016 Comp Metabolic Ngh795 CO2 25.0 mEq/L 06/01/2016 Comp Metabolic Xye823 ANION GAP 12 06/01/2016 Comp Metabolic Fez449 GLUCOSE 108 mg/dL 06/01/2016 Comp Metabolic Uts219 Creat 0.8 mg/dL 06/01/2016 Comp Metabolic Yjr477 eGFR 80 ml/min/1.73m2 06/01/2016 Comp Metabolic Vro747 BUN 15 mg/dL 06/01/2016 Comp Metabolic Rcb102 B/C Ratio 20.0 Ratio 06/01/2016 Comp Metabolic Sct531 CALCIUM 9.1 mg/dL 06/01/2016 Comp Metabolic Vtx208 ALK PHOS 89 U/L 06/01/2016 Comp Metabolic Pgp143 AST(SGOT) 25 U/L 06/01/2016 Comp Metabolic Pbg511 ALT(SGPT) 20 U/L 06/01/2016 Comp Metabolic Zub149 BILI T 0.3 mg/dL 06/01/2016 Comp Metabolic Gri527 ALBUMIN 4.2 g/dL 06/01/2016 Comp Metabolic Mxy667 TPRO 6.2 g/dL 06/01/2016 Comp Metabolic Mfw000 GLOB 2.0 g/dL 06/01/2016 Comp Metabolic Dfe261 A/G Ratio 2.1 Ratio 06/01/2016 Comp Metabolic Uke102 Osmo 275 mOsmo 06/01/2016 Free T4 Iiy413 FREE T4 0.94 ng/dL 06/01/2016 Tsh Ord6 [...] 31.1 pg 06/01/2016 Cbc With Differential Ord2 Frontier% 8.4 % 06/01/2016 Cbc With Differential Ord2 [...] 2.96 K/ul 06/01/2016 Cbc With Differential Ord2 Frontier ABS# 0.6 K/ul 06/01/2016 Cbc With Differential [...] 31.3 pg 02/27/2016 Cbc With Differential Ord2 Frontier% 10.0 % 02/27/2016 Cbc With Differential Ord2 [...] 2.28 K/ul 02/27/2016 Cbc With Differential Ord2 Frontier ABS# 0.9 K/ul 02/27/2016 Cbc With Differential Ord2 Eos ABS# 0.3 K/ul 02/27/2016 Cbc With Differential Ord2 Baso ABS# 0.1 K/ul 02/27/2016 Tsh Ord6 hTSH II 0.18 uIU/mL 02/27/2016 Free T4 Iku516 FREE T4 1.17 ng/dL 02/27/2016 Comp Metabolic Qfr300 NA 135 mEq/L 02/27/2016 Comp Metabolic Feh507 K 5.2 mEq/L 02/27/2016 Comp Metabolic Vhj367 CL 102 mEq/L 02/27/2016 Comp Metabolic Ftd199 CO2 27.0 mEq/L 02/27/2016 Comp Metabolic Fcu200 ANION GAP 11 02/27/2016 Comp Metabolic Jho772 GLUCOSE 93 mg/dL 02/27/2016 Comp Metabolic Tjc182 Creat 0.7 mg/dL 02/27/2016 Comp Metabolic Mac909 eGFR 91 ml/min/1.73m2 02/27/2016 Comp Metabolic Xgl967 BUN 14 mg/dL 02/27/2016 Comp Metabolic Tkp955 B/C Ratio 20.9 Ratio 02/27/2016 Comp Metabolic Enw844 CALCIUM 9.4 mg/dL 02/27/2016 Comp Metabolic Pxn122 ALK PHOS 100 U/L 02/27/2016 Comp Metabolic Czi505 AST(SGOT) 23 U/L 02/27/2016 Comp Metabolic Oqj436 ALT(SGPT) 24 U/L 02/27/2016 Comp Metabolic Wnu309 BILI T 0.2 mg/dL 02/27/2016 Comp Metabolic Jqz768 ALBUMIN 4.3 g/dL 02/27/2016 Comp Metabolic Qyu113 TPRO 6.3 g/dL 02/27/2016 Comp Metabolic Lae287 GLOB 2.1 g/dL 02/27/2016 Comp Metabolic Hon868 A/G Ratio 2.1 Ratio 02/27/2016 Comp Metabolic Nhk632 Osmo 270 mOsmo 02/27/2016 Free T4 Pre289 FREE T4 1.03 ng/dL 05/10/2015 Comp Metabolic Pkk153 NA 137 mEq/L 05/10/2015 Comp Metabolic Zqj622 K 4.4 mEq/L 05/10/2015 Comp Metabolic Ojg084 CL 102 mEq/L 05/10/2015 Comp Metabolic Shz843 CO2 28.0 mEq/L 05/10/2015 Comp Metabolic Pgq638 ANION GAP 11 05/10/2015 Comp Metabolic Zsc686 GLUCOSE 108 mg/dL 05/10/2015 Comp Metabolic Thb735 Creat 0.7 mg/dL 05/10/2015 Comp Metabolic Xyc789 eGFR 86 ml/min/1.73m2 05/10/2015 Comp Metabolic Bnf379 BUN 13 mg/dL 05/10/2015 Comp Metabolic Hgu252 B/C Ratio 18.3 Ratio 05/10/2015 Comp Metabolic Joe040 CALCIUM 9.4 mg/dL 05/10/2015 Comp Metabolic Gcd998 ALK PHOS 94 U/L 05/10/2015 Comp Metabolic Jpx236 AST(SGOT) 22 U/L 05/10/2015 Comp Metabolic Ome909 ALT(SGPT) 21 U/L 05/10/2015 Comp Metabolic Toc156 BILI T 0.3 mg/dL 05/10/2015 Comp Metabolic Sro508 ALBUMIN 3.9 g/dL 05/10/2015 Comp Metabolic Eta842 TPRO 6.1 g/dL 05/10/2015 Comp Metabolic Phv689 GLOB 2.2 g/dL 05/10/2015 Comp Metabolic Vqi596 A/G Ratio 1.7 Ratio 05/10/2015 Comp Metabolic Kvt547 Osmo 274 mOsmo 05/10/2015 Tsh Ord6 hTSH [...] 29.4 pg 05/10/2015 Cbc With Differential Ord2 Frontier% 9.0 % 05/10/2015 Cbc With Differential Ord2 [...] 2.14 K/ul 05/10/2015 Cbc With Differential Ord2 Frontier ABS# 0.5 K/ul 05/10/2015 Cbc With Differential [...] Ord30 C/HDL 3.8 Ratio 05/10/2015 Culture Urine [id number] URINE CULTURE SEE NOTES 02/25/2015 Culture Urine [id number] Continued Results 02/25/2015 Urine Culture Ucult Complete >100,000 col/ml aerobic growth sent to ref lab 02/22/2015 Free T4 Lbk417 FREE T4 1.16 ng/dL 02/11/2015 Tsh Ord6 [...] drainage 04/21/2018 None Full Exam - General 1995 Respiratory auscultation Overall: breath sounds clear bilaterally 04/21/2018 None Full Exam - General 1995 Respiratory respiratory effort/rhythm Overall: normal rate 04/21/2018 None Full Exam - General 1995 Respiratory respiratory effort/rhythm Overall: no retractions 04/21/2018 None Full Exam - General 1995 Cardiovascular auscultation of heart Overall: regular rate 04/21/2018 None Full Exam - General 1995 Cardiovascular auscultation of heart Overall: normal heart sounds 04/21/2018 None Full Exam - General 1995 Musculoskeletal head and neck Overall: head atraumatic 04/21/2018 None Full Exam - General 1995 Musculoskeletal gait and station Overall: normal station [...] Procedure Codes Date THER/PROPH/DIAG INJ SC/IM CPT-4: 06493 04/08/2018 ROCEPHIN, PER 250 MG CPT-4: J0696 04/08/2018 THER/PROPH/DIAG INJ SC/IM CPT-4: 10576 04/07/2018 ROCEPHIN, PER 250 MG CPT-4: J0696 04/07/2018 THER/PROPH/DIAG INJ SC/IM CPT-4: 36712 04/06/2018 ROCEPHIN, PER 250 MG CPT-4: J0696 04/06/2018 THER/PROPH/DIAG INJ SC/IM CPT-4: 72696 04/05/2018 ROCEPHIN, PER 250 MG CPT-4: J0696 04/05/2018 KETOROLAC TROMETHAMINE INJ CPT-4: J1885 04/05/2018 THER/PROPH/DIAG INJ SC/IM CPT-4: 38957 04/04/2018 ROCEPHIN, PER 250 MG CPT-4: J0696 04/04/2018 KETOROLAC TROMETHAMINE INJ CPT-4: J1885 04/04/2018 URINALYSIS NONAUTO W/O SCOPE CPT-4: 98693 03/24/2018 PPPS, SUBSEQ VISIT CPT -4: G0439 12/24/2017 THER/PROPH/DIAG INJ SC/IM CPT-4: 78203 12/24/2017 TRIAMCINOLONE ACET INJ NOS CPT-4: J3301 12/24/2017 THER/PROPH/DIAG INJ SC/IM CPT-4: 42603 11/18/2017 ROCEPHIN, PER 250 MG CPT-4: J0696 11/18/2017 PRESCRIP TRANSMIT VIA ERX SY CPT-4: G8553 04/01/2017 TRIAMCINOLONE ACET INJ NOS CPT-4: J3301 03/25/2017 PPPS, SUBSEQ VISIT CPT -4: G0439 12/23/2016 THER/PROPH/DIAG INJ SC/IM CPT-4: 11756 12/08/2016 TRIAMCINOLONE ACET INJ NOS CPT-4: J3301 12/08/2016 PRESCRIP TRANSMIT VIA ERX SY CPT-4: G8553 12/08/2016 PRESCRIP TRANSMIT VIA ERX SY CPT-4: G8553 11/30/2016 URINALYSIS NONAUTO W/O SCOPE CPT-4: 78601 07/08/2016 PRESCRIP TRANSMIT VIA ERX SY CPT-4: G8553 06/01/2016 PRESCRIP TRANSMIT VIA ERX SY CPT-4: G8553 02/27/2016 THER/PROPH/DIAG INJ SC/IM CPT-4: 61602 03/01/2015 ROCEPHIN, PER 250 MG CPT-4: J0696 03/01/2015 THER/PROPH/DIAG INJ SC/IM CPT-4: 23873 02/28/2015 ROCEPHIN, PER 250 MG CPT-4: J0696 02/28/2015 THER/PROPH/DIAG INJ SC/IM CPT-4: 93633 02/27/2015 ROCEPHIN, PER 250 MG CPT-4: J0696 02/27/2015 THER/PROPH/DIAG INJ SC/IM CPT-4: 33033 02/26/2015 ROCEPHIN, PER 250 MG CPT-4: J0696 02/26/2015 THER/PROPH/DIAG INJ SC/IM CPT-4: 27787 02/25/2015 ROCEPHIN, PER 250 MG CPT-4: J0696 02/25/2015 URINALYSIS NONAUTO W/O SCOPE CPT-4: 82820 02/21/2015 Vital Signs Date Vital 04/21/2018 Blood [...] Code : 8480-6 BMI: 27.8 Code : 26168-8 Heart Rate 1 : 85 bpm Height: 5'3" SpO2: 96% Weight: 157 lbs 03/24/2018 Blood Pressure 1: 128/82 Code : 8480-6 BMI: 27.8 Code : 44605-9 Heart Rate 1 : 84 bpm Height: 5'3" SpO2: 97% Weight: 157 lbs 03/01/2018 Blood Pressure 1: 136/70 Code : 8480-6 BMI: 27.8 Code : 65143-8 Heart Rate 1 : 70 bpm Height: 5'3" SpO2: 96% Weight: 157 lbs 12/24/2017 Height: Weight: 11/18/2017 Blood Pressure 1: 164/74 Code : 8480-6 BMI: 27.6 Code : 56803-5 Heart Rate 1 : 70 bpm Height: 5'3" SpO2: 96% Weight: 156 lbs 11/03/2017 Blood Pressure 1: 118/72 Code : 8480-6 BMI: 27.6 Code : 06784-8 Heart Rate 1 : 82 bpm Height: 5'3" SpO2: 96% Weight: 156 lbs 09/22/2017 Blood Pressure 1: 136/68 Code : 8480-6 BMI: 27.6 Code : 82322-5 Heart Rate 1 : 70 bpm Height: 5'3" SpO2: 97% Weight: 156 lbs 04/01/2017 Blood Pressure 1: 144/82 Code : 8480-6 Heart Rate 1: 68 bpm Height: 5'3" SpO2: 97% Weight: 03/25/2017 Blood Pressure 1: 116/70 Code : 8480-6 BMI: 26.7 Code : 37082-1 Heart Rate 1 : 67 bpm Height: 5'3" SpO2: 98% Weight: 151 lbs 12/23/2016 BMI: 26.7 Code: 61348-4 Height: 5'3" Weight: 151 lbs 12/22/2016 Blood Pressure 1: 142/60 Code : 8480-6 BMI: 26.7 Code : 66096-5 Heart Rate 1 : 67 bpm Height: 5'3" SpO2: 98% Weight: 151 lbs 12/08/2016 Blood Pressure 1: 140/72 Code : 8480-6 Heart Rate 1: 72 bpm Height: 5'3" SpO2: 97% Weight: 11/30/2016 Blood Pressure 1: 128/80 Code : 8480-6 BMI: 26.7 Code : 38512-2 Heart Rate 1 : 63 bpm Height: 5'3" SpO2: 96% Weight: 151 lbs 09/28/2016 Blood Pressure 1: 130/80 Code : 8480-6 BMI: 27.1 Code : 43534-3 Heart Rate 1 : 80 bpm Height: 5'3" SpO2: 97% Weight: 153 lbs 07/06/2016 Blood Pressure 1: 162/72 Code : 8480-6 BMI: 27.6 Code : 99076-8 Heart Rate 1 : 72 bpm Height: 5'3" SpO2: 98% Weight: 156 lbs 06/01/2016 Blood Pressure 1: 122/66 Code : 8480-6 BMI: 27.5 Code : 54810-4 Heart Rate 1 : 73 bpm Height: 5'3" SpO2: 98% Weight: 155 lbs 8 oz 02/27/2016 Blood Pressure 1: 126/68 Code : 8480-6 BMI: 26.9 Code : 77109-8 Heart Rate 1 : 70 bpm Height: 5'3" SpO2: 98% Weight: 152 lbs 09/10/2015 Blood Pressure 1: 130/70 Code : 8480-6 BMI: 26.9 Code : 51933-4 Heart Rate 1 : 72 bpm Height: 5'3" SpO2: 97% Weight: 152 lbs 05/14/2015 Blood Pressure 1: 138/82 Code : 8480-6 BMI: 26.4 Code : 37868-6 Heart Rate 1 : 75 bpm Height: 5'3" SpO2: 98% Weight: 149 lbs 02/11/2015 Blood Pressure 1: 128/72 Code : 8480-6 BMI: 25.5 Code : 53441-3 Heart Rate 1 : 73 bpm Height: [...] data Encounters Encounter Performer Location Codes Date 25290 EST. PATIENT, LEVEL IV Diagnosis: Low back pain[ICD10: M54.5] Diagnosis: Essential (primary) hypertension[ICD10: I10] Diagnosis: Other fatigue[ICD10: R53.83] Diagnosis: Other malaise[ICD10: R53.81] Bridget Cortez MD, [facility] CPT-4 : 25277 04/21/2018 42485 EST. PATIENT, LEVEL III Diagnosis: Other fatigue[ICD10: R53.83] Diagnosis: Otalgia, right ear[ICD10: H92.01] Bridget Cortez MD, [facility] CPT -4: 50821 04/13/2018 ([id number]) 57086 EST. PATIENT, LEVEL III Diagnosis: Essential (primary) hypertension[ICD10: I10] Diagnosis: Dysuria[ICD10: R30.0] Diagnosis: Nausea[ICD10: R11.0] Diagnosis: Headache[ICD10: R51] Elen Cortez MD, [facility] CPT-4: 68963 04/04/2018 12960 EST. PATIENT, LEVEL III Diagnosis: Other acute sinusitis[ICD10: J01.80] Diagnosis: Dizziness and giddiness[ICD10: R42] Diagnosis: Dysuria[ICD10: R30.0] Diagnosis: Candidal stomatitis[ICD10: B37.0] Diagnosis: Essential (primary) hypertension[ICD10: I10] Diagnosis: Other fatigue[ICD10: R53.83] Diagnosis: Other malaise[ICD10: R53.81] Bridget Cortez MD, [facility] CPT-4 : 55343 04/01/2018 ([id number]) 58975 EST. 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 PATIENT, LEVEL IV Diagnosis: Otalgia, right ear[ICD10: H92.01] Diagnosis: Headache[ICD10: R51] Diagnosis: Other fatigue[ICD10: R53.83] Diagnosis: Abnormal findings on diagnostic imaging of other specified body structures[ICD10: R93.89] Elen Cortez MD, [facility] CPT-4: 00600 03/01/2018 31712 EST. PATIENT, LEVEL III Diagnosis: Acute cystitis with hematuria[ICD10: N30.01] Bridget Cortez MD, [facility] CPT-4: 87773 11/18/2017 78330 EST. PATIENT, LEVEL IV Diagnosis: Other acute sinusitis[ICD10: J01.80] Diagnosis: Otalgia, right ear[ICD10: H92.01] Bridget Cortez MD, [facility] CPT -4: 31205 11/03/2017 29489 EST. PATIENT, LEVEL III Diagnosis: Other fatigue[ICD10: R53.83] Diagnosis: Other malaise[ICD10: R53.81] Diagnosis: Pain in left knee[ICD10: M25.562] Diagnosis: Pain in right knee[ICD10: M25.561] Bridget Cortez MD, [facility] CPT-4: 54707 09/22/2017 ([id number]) 48707 EST. PATIENT, LEVEL III Diagnosis: Cough[ICD10: R05] Diagnosis: Acute bronchitis due to other specified organisms[ICD10: J20.8] Elen Cortez MD, [facility] CPT-4: 83345 04/01/2017 ([id number]) 04788 EST. PATIENT, LEVEL III Diagnosis: Otalgia, right ear[ICD10: H92.01] Diagnosis: Other allergic rhinitis[ICD10: J30.89] Shiela Cortez MD, [facility] CPT-4: 73518 03/25/2017 ([id number]) 06588 EST. PATIENT, LEVEL III Diagnosis: Benign paroxysmal vertigo, bilateral[ICD10: H81.13] Shiela Cortez MD, [facility] CPT-4: 97909 12/22/2016 ([id number]) 46260 EST. PATIENT, LEVEL IV Diagnosis: Benign paroxysmal vertigo, bilateral[ICD10: H81.13] Diagnosis: Other allergic rhinitis[ICD10: J30.89] Diagnosis: Hypothyroidism, unspecified[ICD10: E03.9] Shiela Cortez MD, [facility] CPT-4: 61126 12/08/2016 ([id number]) 47785 EST. PATIENT, LEVEL IV Diagnosis: Atrophy of thyroid (acquired)[ICD10: E03.4] Diagnosis: Essential (primary) hypertension[ICD10: I10] Diagnosis: Mixed hyperlipidemia[ICD10: E78.2] Elen Cortez MD, [facility] CPT-4: 92455 11/30/2016 39578 EST. PATIENT, LEVEL IV Diagnosis: Headache[ICD10: R51] Diagnosis: Other fatigue[ICD10: R53.83] Diagnosis: Dizziness and giddiness[ICD10: R42] Bridget Cortez MD, [facility] CPT-4: 54343 09/28/2016 77609 EST. PATIENT, LEVEL IV Diagnosis: Essential (primary) hypertension[ICD10: I10] Diagnosis: Headache[ICD10: R51] Bridget Cortez MD, [facility] CPT-4: 73946 07/06/2016 ([id number]) 96729 EST. PATIENT, LEVEL IV Diagnosis: Essential (primary) hypertension[ICD10: I10] Diagnosis: Atrophy of thyroid (acquired)[ICD10: E03.4] Diagnosis: Mixed hyperlipidemia[ICD10: E78.2] Elen Cortez MD, [facility] CPT-4: 55341 06/01/2016 94844 EST. PATIENT, LEVEL IV Diagnosis: Acute laryngopharyngitis[ICD10: J06.0] Diagnosis: Other allergic rhinitis[ICD10: J30.89] Diagnosis: Other specified hypothyroidism[ICD10: E03.8] Diagnosis: Other fatigue[ICD10: R53.83] Bridget Cortez MD, [facility] CPT-4 : 50297 02/27/2016 ([id number]) 98564 EST. PATIENT, LEVEL III Diagnosis: Essential (primary) hypertension[ICD10: I10] Diagnosis: Mixed hyperlipidemia[ICD10: E78.2] Elen Cortez MD, [facility] CPT-4: 37361 09/10/2015 ([id number]) 15174 EST. PATIENT, LEVEL IV Diagnosis: Essential (primary) hypertension[ICD10: I10] Diagnosis: Hypothyroidism, unspecified[ICD10: E03.9] Diagnosis: Unspecified osteoarthritis, unspecified site[ICD10: M19.90] Elen Cortez MD , [facility] CPT-4: 26686 05/14/2015 ([id number]) OFFICE VISIT, NEW - LEVEL 4 Diagnosis: Essential (primary) hypertension[ICD10: I10] Diagnosis: Hypothyroidism, unspecified[ICD10: E03.9] Diagnosis: Unspecified osteoarthritis, unspecified site[ICD10: M19.90] Elen Cortez MD , [facility] CPT-4: 66664 02/11/2015 Plan of Care Planned Activity Notes [...] or concerns. 04/21/2018 Appointment: Bridget Velazco WPtel: [facility]5 [facility] (15 min) Moderate 04/21/2018 Patient Education: Patient Medication Summary Completed 04/21/2018 Patient Education: Back Pain Completed 04/21/2018 Appointment: Bridget Velazco WPtel: [facility]5 [facility] (15 min) Moderate 04/14/2018 Care Plan: Urine [...] Dr. Saini. 04/13/2018 Appointment: Bridget Velazco WPtel: [facility]5 [facility] [place] (30 min) Complex 04/13/2018 Patient Education: Patient Medication Summary Completed 04/13/2018 Appointment: Nurse Visit 04/08/2018 Appointment: Bridget Velazco WPtel: [facility]5 [facility] [place] (15 min) Moderate 04/08/2018 Patient Education: Patient Medication Summary Completed 04/08/2018 Appointment: Injection 04/07/2018 Patient Education: Patient Medication Summary Completed 04/07/2018 Appointment: Injection 04/06/2018 Patient Education: Patient Medication Summary Completed 04/06/2018 Appointment: Injection 04/05/2018 [facility]ment[phone] (15 min) Moderate 04/05/2018 Patient Education: Patient [...] today. 04/04/2018 Appointment: El[facility] Cortez [facility]el: [phone] (10 min) Simple 04/04/2018 Patient Education: Patient Medication Summary Completed 04/04/2018 Patient Education: Patient Medication Summary Completed 04/04/2018 Patient Education: Patient Medication Summary Completed 04/04/2018 Care Plan: Referral Order SNOMED-CT : [id number] Pending 04/04/2018 Visit Plan: Dysuria, dizziness, fatigue, [...] improvement. 04/01/2018 Appointment: Bridget Velazco WPtel: [phone] [facility] (15 min) Moderate 04/01/2018 Patient Education: Patient Medication Summary Completed 04/01/2018 Visit Plan: Sinusitis - Pt has acute infection - pain in face, maxillary region, Pt informed to use decongestant, RX given to patient, sinus rinses also recommended. Call if symptoms do not show improvement. Dysuria - rx for antibiotic sent to pharmacy. 03/24/2018 Appointment: Elen Cortez WPtel: [phone] [facility] (15 min) Moderate 03/24/2018 Patient Education: [...] not improve. 03/01/2018 Appointment: Elen Cortez WPtel: [phone] [facility] (15 min) Moderate 03/01/2018 Patient Education: Patient [...] allergy spray. 12/24/2017 Appointment: Bridget Velazco WPtel: [facility] - Annual Wellness Visit 12/24/2017 Patient Education: Patient Medication Summary Completed 12/24/2017 Appointment: Bridget Velazco WPtel: [address] [place] [address] (15 min) Moderate 11/30/2017 Appointment: Lab Draw [...] not improve. 11/18/2017 Appointment: Bridget Velazco WPtel: [address] [place] [address] (15 min) Moderate 11/18/2017 Patient Education: Patient Medication Summary Completed 11/18/2017 Visit Plan: Sinusitis - Pt has acute infection - pain in face, maxillary region, Pt informed to use decongestant, RX given to patient, sinus rinses also recommended. Call if symptoms do not show improvement. 11/03/2017 Appointment: Bridget Velazco WPtel: [address] [place] [address] (15 min) Moderate 11/03/2017 Patient Education: Patient [...] not improve. 09/22/2017 Appointment: Bridget Velazco WPtel: [address] [place], [place] [address] (15 min) Moderate 09/22/2017 Patient Education: Patient Medication Summary Completed 09/22/2017 Visit Plan: Bronchitis - acute case of bronchitis identified. Pt has been given antibiotics, breathing treatments as appropriate, and pt has been instructed to call if symptoms are not improved, or if symptoms acutely worsen. 04/01/2017 Appointment: Elen Cortez WPtel: [facility]6 [facility]66[facility] (15 min) Moderate 04/01/2017 [...] allergy spray. 03/25/2017 Appointment: Shiela Srivastava WPtel: [facility]7 [phone] [place] (10 min) Simple 03/25/2017 Appointment: Elen Cortez WPtel: [facility]4 [facility] [place] (15 min) Moderate 03/25/2017 Patient [...] care surrogate. 12/23/2016 Appointment: [facility]el[phone] [facility] - Annual Wellness Visit 12/23/2016 Patient Education: Patient Medication Summary Completed 12/23/2016 Visit Plan: Vertigo-discussed PT for vestibular exercises- patient wants to wait since symptoms are improving-continue anti histamine as directed-meclizine as needed 12/22/2016 Appointment: [facility]rivastava [facility]el[phone] (30 min) Complex 12/22/2016 Patient Education: Patient [...] control. 12/08/2016 Appointment: [facility]rivastava [facility]el[phone] [place] (30 min) Complex 12/08/2016 Patient Education: [...] to medications. 11/30/2016 Appointment: Elen Cortez WPtel: [facility] [place] (15 min) Moderate 11/30/2016 Patient Education: [...] or concerns. 09/28/2016 Appointment: [facility]azco [facility]el[phone] (30 min) Complex 09/28/2016 Patient Education: [...] 07/06/2016 Appointment: [facility]el[phone] (15 min) Moderate 07/06/2016 Patient Education: [...] improving 06/01/2016 Appointment: Elen Cortez WPtel: [phone] (15 min) Moderate 06/01/2016 Patient Education: Patient [...] check labs 02/27/2016 Appointment: Bridget Velazco WPtel: [address] [place] [address] (30 min) [facility] 02/27/2016 Patient Education: Patient Medication Summary Completed 02/27/2016 Patient Education: Patient Medication Summary Completed 09/27/2015 Care Plan: SCREENINGMAMMOGRAPHYDIGITAL LOINC : 68467-0 Pending 09/27/2015 Visit Plan: Hypertension - well [...] colonoscopy 09/10/2015 Appointment: Elen Cortez WPtel: [phone] (15 min) Moderate 09/10/2015 Patient Education: Patient [...] Sanchez. 05/14/2015 Appointment: Elen Cortez WPtel: [phone] [facility] (15 min) Moderate 05/14/2015 Patient Education: Patient Medication Summary Completed 05/14/2015 Patient Education: Hypertension Completed 05/14/2015 Care Plan: Referral Order SNOMED-CT : [id number] Ordered 05/14/2015 Patient Education: Patient Medication Summary Completed 03/01/2015 Appointment: Nurse Visit 02/28/2015 Patient Education: Patient Medication Summary Completed 02/28/2015 Patient Education: Patient Medication Summary Completed 02/27/2015 Appointment: Nurse Visit 02/26/2015 Patient Education: Patient Medication Summary Completed 02/26/2015 Appointment: Injection 02/25/2015 Patient Education: Patient Medication Summary Completed 02/25/2015 Patient Education: Patient Medication Summary Completed 02/21/2015 Care Plan: URINALYSIS NONAUTO W/O SCOPE LOINC : 71050-8 Ordered 02/21/2015 Visit Plan: Hypertension - well [...] symptoms. 02/11/2015 Appointment: Elen Cortez WPtel: [phone] [place] New Patient 02/11/2015 Patient Education: Patient Medication Summary Completed 02/11/2015 Patient Education: Hypertension Completed 02/11/2015 Referral: Dr. Ming Kessler WPtel: Referral Appointment Requested Referral: Wan Steven Referral Appointment Requested Instructions Comment . Fatigue, Malaise - will check labs [...] Call if symptoms do not show improvement. FLONASE TWICE DAILY KENALOG INJECTION TODAY . [...] with any changes, questions, or concerns. . Medicare Exam - today we discussed [...] following orthopedic surgeon - Dr. Sanchez. . Vertigo-discussed PT for vestibular exercises-patient wants to wait since symptoms are improving-continue anti histamine as directed- meclizine as needed . Sinusitis - Pt has acute infection - pain in face, maxillary region, Pt informed to use decongestant, RX given to patient, sinus rinses also recommended. Call if symptoms do not show improvement. Dysuria - rx for antibiotic sent to pharmacy. . UTI - pt with positive urinalysis [...] control. Fatigue - will check labs . UTI - symptoms resolved - repeat UA negative - pt is to notify clinic if symptoms return or with any questions or concerns Fatigue - pt is to notify clinic if symptoms are not improving, pt is to increase fluid intake Ear pain - ongoing - will refer to Dr. Saini. increase lisinopril to 20mg twice a day. [...]
--- OUTSIDE RECORDS SUMMARY | 2018-06-01 12:43 | XMS REPORT | CCD ---
Author Author [facility] Organization [facility] Address [address] [place] [address] Phone Care Team Providers Care Bean Viner Name Role Phone PP Unavailable CCM Unavailable Summary Purpose Interface Exchange Insurance Providers Payer name Policy type / Coverage type Covered democrat ID Effective Begin Date Effective End Date WPS Medicare Part B Medicare Part B [id number] Unknown [employer] Medicare Part B [id number] Unknown Family history Mother Diagnosis Age At [...] spouses - 02/11/[address]: 131321563 Never smoker 02/11/2015 Alcohol history Unknown occasionally drinks alcohol 02/11/2015 Allergies, Adverse Reactions, Alerts Substance Reaction Codes Entered Date Inactivated Date Status CODEINE RxNorm: 2670 02/11/2015 No Inactive Date Active allergy Unknown 12/23/2016 No Inactive Date Active ciprofloxacin rash, RxNorm: 28799 02/26/2015 No Inactive Date Active hydrocodone Unknown 02/11/2015 No Inactive Date Active PREDNISONE RxNorm: 8640 03/29/2018 No Inactive Date Active GABAPENTIN Unknown 12/23/2016 No Inactive Date Active SULFA (SULFONAMIDES) Unknown 02/11/2015 No Inactive Date Active Past Medical History Illness Codes Condition Status Onset Date Resolved Date Otalgia, right ear ICD -9: 388.70 ICD-10: H92.01 Active 03/25/2017 Unknown Other fatigue ICD-9: 780.79 ICD-10: R53.83 Active 02/26/2016 Unknown Dysuria ICD-9: 788.1 ICD-10: R30.0 Active 02/20/2015 Unknown Headache ICD-9: 784.0 ICD-10: R51 Active 07/06/2016 Unknown Essential (primary) hypertension ICD-9: 401.1 ICD-10: I10 Active 04/01/2018 Unknown Hypothyroidism, unspecified ICD-9: 244.9 ICD-10: E03.9 Active 02/26/2016 Unknown Nausea ICD-9: 787.02 ICD-10: R11.0 Active 04/04/2018 Unknown Acute laryngopharyngitis ICD-9: 465.0 ICD-10: J06.0 Active 02/26/2016 Unknown Candidal stomatitis ICD-9: 112.0 ICD-10: B37.0 Active 04/01/2018 Unknown Dizziness and giddiness ICD-9: 780.4 ICD-10: R42 Active 09/28/2016 Unknown Other acute sinusitis ICD-9: 461.8 ICD-10: J01.80 Active 11/03/2017 Unknown Other malaise ICD-9: 780.79 ICD-10: R53.81 Active 09/22/2017 Unknown Acute recurrent maxillary sinusitis ICD-9: 461.0 [...] Problems Condition Codes Effective Dates Condition Status Otalgia, right ear ICD -9: 388.70 ICD-10: H92.01 03/25/2017 Active Other fatigue ICD-9: 780.79 ICD-10: R53.83 02/26/2016 Active Dysuria ICD-9: 788.1 ICD-10: R30.0 02/20/2015 Active Headache ICD-9: 784.0 ICD-10: R51 07/06/2016 Active Essential (primary) hypertension ICD-9: 401.1 ICD-10: I10 04/01/2018 Active Hypothyroidism, unspecified ICD-9: 244.9 ICD-10: E03.9 02/26/2016 Active Nausea ICD-9: 787.02 ICD-10: R11.0 04/04/2018 Active Acute laryngopharyngitis ICD-9: 465.0 ICD-10: J06.0 02/26/2016 Active Candidal stomatitis ICD-9: 112.0 ICD-10: B37.0 04/01/2018 Active Dizziness and giddiness ICD-9: 780.4 ICD-10: R42 09/28/2016 Active Other acute sinusitis ICD-9: 461.8 ICD-10: J01.80 11/03/2017 Active Other malaise ICD-9: 780.79 ICD-10: R53.81 09/22/2017 Active Acute recurrent maxillary sinusitis ICD-9: 461.0 [...] ceftriaxone 500 mg solution for injection RxNorm: 4154117 Inj 04/08/2018 04/08/2018 Inactive ceftriaxone 500 mg solution for injection RxNorm: 3529819 Inj 04/07/2018 04/07/2018 Inactive ceftriaxone 500 mg solution for injection RxNorm: 7295060 Inj 04/06/2018 04/06/2018 Inactive ketorolac 60 mg/2 mL intramuscular solution RxNorm: 6733198 Milliliter(s) IM 04/05/2018 04/05/2018 Inactive ceftriaxone 500 mg solution for injection RxNorm: 7684952 Inj 04/05/2018 04/05/2018 Inactive ondansetron 4 mg disintegrating tablet RxNorm: 155813 1 Tablet(s) PO TID as needed nausea 04/04/2018 No Stop Date Active ketorolac 30 mg/mL injection solution RxNorm: 626378 2 Milliliter(s) Inj 04/04/2018 04/04/2018 Inactive ceftriaxone 500 mg solution for injection RxNorm: 9540424 Inj 04/04/2018 04/04/2018 Inactive nystatin 100,000 unit/mL oral suspension RxNorm: 523530 4 Milliliter(s) PO QID 04/01/2018 04/05/2018 Inactive doxycycline hyclate 100 mg tablet RxNorm: 2624965 1 Tablet(s) PO BID 04/01/2018 04/10/2018 Inactive prednisone 10 mg tablet RxNorm: 391121 1 Tablet(s) PO UD 6 pills on day 1 and 2 and then decrease by one pill every other day until prescription is done 03/24/2018 No Stop Date Active amoxicillin 500 mg capsule RxNorm: 610087 1 Capsule(s) PO TID 03/24/2018 04/02/2018 Inactive metoprolol succinate ER 50 mg tablet,extended release 24 hr RxNorm: 015173 Tablet (s) TAKE 1 TABLET BY MOUTH DAILY 03/21/2018 10/16/2018 Active PLEASE SEND REFILL REQUESTS ELECTRONICALLY!! Synthroid 88 mcg tablet RxNorm: 078523 TAKE 1 TABLET BY MOUTH DAILY 03/08/2018 08/04/2018 Active 03/07/2018 11:21:21 AM pravastatin 80 mg tablet RxNorm: 461619 Tablet(s) 1 Tablet(s) PO daily 03/01/2018 02/23/2019 Active Kenalog 40 mg/mL suspension for injection RxNorm: 1454480 Milliliter(s) Inj 12/24/2017 12/24/2017 Inactive cetirizine 10 mg tablet RxNorm: 7895502 TAKE 1 TABLET BY MOUTH DAILY 12/21/2017 07/18/2018 Active Generic For:*ZYRTEC 10 MG TABLET 12/21/2017 10:08:05 AM Synthroid 88 mcg tablet RxNorm: 466624 TAKE 1 TABLET BY MOUTH DAILY 12/07/2017 03/06/2018 Inactive 12/06/2017 11:46:49 AM Lipitor 80 mg tablet RxNorm: 596277 1 Tablet(s) PO daily 201702/28/2018 Inactive pravastatin 80 mg tablet RxNorm: 207210 1 Tablet(s) PO daily 11/29/2017 Inactive Lipitor 80 mg tablet RxNorm: 166593 1 Tablet(s) PO daily 201711/28/2017 Inactive lisinopril 20 mg tablet RxNorm: 282725 TAKE 1 TABLET BY MOUTH TWICE DAILY 11/23/2017 04/21/2018 Active Generic For:*PRINIVIL 20 MG TABLET 11/23/2017 11:29:44 AM Macrobid 100 mg capsule RxNorm: 989597 1 Capsule(s) PO BID 06/201711/25/2017 Inactive Macrobid 100 mg capsule RxNorm: 406511 1 Capsule(s) PO BID 06/201711/18/2017 Inactive Lomotil 2.5 mg-0.025 mg tablet RxNorm: 6766971 1 -2 Tablet(s) PO TID as needed 11/19/2017 11/25/2017 Inactive Lomotil 2.5 mg-0.025 mg tablet RxNorm: 1931766 1 -2 Tablet(s) PO TID as needed 11/19/2017 11/18/2017 Inactive Pyridium 200 mg tablet RxNorm: 0766409 1 Tablet(s) PO TID as needed 11/18/2017 11/22/2017 Inactive Augmentin 500 mg-125 mg tablet RxNorm: 454627 1 Tablet(s) PO TID 11/18/2017 11/27/2017 Inactive Keflex 500 mg capsule RxNorm: 341916 1 Capsule(s) PO TID 201711/09/2017 Inactive Denavir 1 % topical cream RxNorm: 066405 1 TOP TID as needed cold sores 11/01/2017 01/29/2018 Inactive Denavir 1 % topical cream RxNorm: 144340 1 TOP TID as needed cold sores 11/01/2017 10/31/2017 Inactive Synthroid 88 mcg tablet RxNorm: 073787 TAKE 1 TABLET BY MOUTH DAILY 09/29/2017 11/27/2017 Inactive 09/29/2017 12:58:07 PM pravastatin 80 mg tablet RxNorm: 012482 1 Tablet(s) PO daily 08/30/2017 Inactive pravastatin 80 mg tablet RxNorm: 411666 1 Tablet(s) PO daily 11/28/2017 Inactive Synthroid 88 mcg tablet RxNorm: 099618 TAKE 1 TABLET BY MOUTH DAILY 08/30/2017 09/28/2017 Inactive 08/30/2017 10:53:26 AM metoprolol succinate ER 50 mg tablet,extended release 24 hr RxNorm: 046371 Tablet (s) TAKE 1 TABLET BY MOUTH DAILY 08/17/2017 03/14/2018 Inactive PLEASE SEND REFILL REQUESTS ELECTRONICALLY!! lisinopril 20 mg tablet RxNorm: 468006 TAKE 1 TABLET BY MOUTH TWICE DAILY 06/18/2017 11/14/2017 Inactive Generic For:*PRINIVIL 20 MG TABLET 06/18/2017 1:31: 00 PM Synthroid 88 mcg tablet RxNorm: 684271 TAKE 1 TABLET BY MOUTH DAILY 05/24/2017 08/21/2017 Inactive 05/24/2017 2:13:21 PM cetirizine 10 mg tablet RxNorm: 0287252 1 Tablet(s) PO daily 12/12/2017 Inactive Zithromax Z-Russell 250 mg capsule RxNorm: 058396 1 Capsule(s) PO 04/02/2017 04/05/2017 Inactive Zithromax Z-Russell 250 mg tablet RxNorm: 715854 1 Tablet(s) PO 04/01/2017 Inactive Zithromax Z-Russell 250 mg capsule RxNorm: 525201 1 Capsule(s) PO 04/02/2017 04/01/2017 Inactive Zithromax Z-Russell 250 mg tablet RxNorm: 145430 1 Tablet(s) PO 04/06/2017 Inactive Ventolin HFA 90 mcg/actuation aerosol inhaler RxNorm: 411673 2 INH QID as needed - for the first 3 days inhale at least two puffs three times daily, then use as needed for shortness of breath 04/01/2017 04/30/2017 Inactive Keflex 500 mg capsule RxNorm: 049902 1 Capsule(s) PO TID 201604/01/2017 Inactive meclizine 25 mg tablet RxNorm: 103536 1 Tablet(s) PO Q6 PRN 1 Tablet(s) PO Q6 PRN 03/25/2017 No Stop Date Active dizziness meclizine 25 mg tablet RxNorm: 634528 Tablet(s) 1 Tablet(s) PO Q6 PRN 03/25/2017 03/24/2017 Inactive dizziness Kenalog 40 mg/mL suspension for injection RxNorm: 5749986 1 Milliliter(s) Inj 03/25/2017 03/25/2017 Inactive meclizine 25 mg tablet RxNorm: 611714 1 Tablet(s) PO Q6 PRN 03/24/2017 Inactive dizziness lisinopril 20 mg tablet RxNorm: 012262 1 Tablet(s) PO BID 01/1506/13/2017 Inactive metoprolol succinate ER 50 mg tablet,extended release 24 hr RxNorm: 037784 TAKE 1 TABLET BY MOUTH DAILY 01/07/20172017 Inactive Generic For:TOPROL XL 50MG TAB 01/07/2017 12:38:23 PM Synthroid 88 mcg tablet RxNorm: 855284 TAKE 1 TABLET BY MOUTH DAILY 12/25/2016 05/23/2017 Inactive 12/25/2016 9:47:08 AM Zithromax Z-Russell 250 mg tablet RxNorm: 373585 Tablet(s) PO UD 03/24/2017 Inactive meclizine 25 mg tablet RxNorm: 805426 1 Tablet(s) PO Q6 PRN 12/20/2016 Inactive dizziness Kenalog 40 mg/mL suspension for injection RxNorm: 6907546 Milliliter(s) Inj 12/08/2016 12/08/2016 Inactive meloxicam 15 mg tablet RxNorm: 720233 1 Tablet(s) PO daily 12/20/2016 Inactive cetirizine 10 mg tablet RxNorm: 4651467 1 Tablet(s) PO daily 05/16/2017 Inactive pravastatin 40 mg tablet RxNorm: 820937 1 Tablet(s) PO BID 07/201608/30/2017 Inactive Cancel 80 mg tab lisinopril 20 mg tablet RxNorm: 740278 1 Tablet(s) PO BID 08/1212/22/2016 Inactive Synthroid 88 mcg tablet RxNorm: 630080 1 Tablet(s) PO TAKE ONE (1) TABLET BY MOUTH DAILY 07/28/2016 12/24/2016 Inactive decrease dose hydralazine 25 mg tablet RxNorm: 140946 1 Tablet(s) PO TID as needed for Systolic blood pressure over 170 07/06/20162016 Inactive lisinopril 20 mg tablet RxNorm: 158149 1 Tablet(s) PO BID to replace your other lisinopril dose 07/06/2016 08/04/2016 Inactive lisinopril 10 mg tablet RxNorm: 425764 TAKE ONE TABLET BY MOUTH TWICE DAILY 06/10/2016 08/11/2016 Inactive Generic For:ZESTRIL 10 MG TABLET 06/09/2016 12:58: 50 PM triamcinolone acetonide 0.1 % topical cream RxNorm: 0117551 1 Application TOP TID as needed 06/01/2016 No Stop Date Active nystatin 100,000 unit/gram topical cream RxNorm: 423008 1 Gram(s) TOP TID as needed 06/01/2016 No Stop Date Active metoprolol succinate ER 50 mg tablet,extended release 24 hr RxNorm: 686379 1 Tablet(s) PO daily 05/26/2016 12/21/2016 Inactive cetirizine 10 mg tablet RxNorm: 0293644 1 Tablet(s) PO daily 10/18/2016 Inactive Synthroid 88 mcg tablet RxNorm: 565120 1 Tablet(s) PO TAKE ONE (1) TABLET BY MOUTH DAILY 03/06/2016 03/07/2018 Inactive Brand name only! Synthroid 88 mcg tablet RxNorm: 230715 1 Tablet(s) PO TAKE ONE (1) TABLET BY MOUTH DAILY 03/04/2016 03/05/2016 Inactive decrease dose cetirizine 10 mg tablet RxNorm: 3152791 1 Tablet(s) PO daily 03/22/2016 Inactive amoxicillin 500 mg capsule RxNorm: 018974 1 Capsule(s) PO TID 02/27/2016 03/04/2016 Inactive lisinopril 10 mg tablet RxNorm: 339269 TAKE ONE TABLET BY MOUTH TWICE DAILY 02/06/2016 06/04/2016 Inactive Generic For:ZESTRIL 10 MG TABLET 02/06/2016 12:16: 38 PM Synthroid 100 mcg tablet RxNorm: 311722 TAKE ONE (1) TABLET BY MOUTH DAILY 01/03/2016 03/03/2016 Inactive 01/03/2016 10:35:14 AM N O T I C E Last quantity doesn't match original quantity lisinopril 10 mg tablet RxNorm: 923221 1 Tablet(s) PO BID 10/0301/31/2016 Inactive Synthroid 100 mcg tablet RxNorm: 384427 1 Tablet(s) PO daily 01/02/2016 Inactive metoprolol succinate ER 50 mg tablet,extended release 24 hr RxNorm: 862007 1 Tablet(s) PO daily 10/04/2015 04/30/2016 Inactive Tylenol Arthritis 650 mg tablet,extended release RxNorm: 3161676 2 Tablet(s) PO TID 09/10/2015 No Stop Date Active metoprolol succinate ER 50 mg tablet,extended release 24 hr RxNorm: 926561 1 Tablet(s) PO daily 09/05/2015 10/03/2015 Inactive pravastatin 80 mg tablet RxNorm: 997029 1 Tablet(s) PO QHS 08/30/2015 Inactive pravastatin 40 mg tablet RxNorm: 948768 1 Tablet(s) PO BID 08/29/2015 Inactive Cancel 80 mg tab pravastatin 40 mg tablet RxNorm: 699683 1 Tablet(s) PO BID 08/19/2016 Inactive Cancel 80 mg tab lisinopril 10 mg tablet RxNorm: 509572 1 Tablet(s) PO BID 06/1308/11/2016 Inactive lisinopril 10 mg tablet RxNorm: 223410 1 Tablet(s) PO BID 06/1310/03/2015 Inactive Synthroid 100 mcg tablet RxNorm: 772836 1 Tablet(s) PO daily 10/03/2015 Inactive ceftriaxone 1 gram solution for injection RxNorm: 4314453 Inj 03/01/2015 03/01/2015 Inactive ceftriaxone 1 gram solution for injection RxNorm: 5647108 Inj 02/28/2015 02/28/2015 Inactive ceftriaxone 1 gram solution for injection RxNorm: 1367190 Inj 02/27/2015 02/27/2015 Inactive ceftriaxone 1 gram solution for injection RxNorm: 5346695 Inj 02/26/2015 02/26/2015 Inactive ceftriaxone 1 gram solution for injection RxNorm: 5803626 Inj 02/25/2015 02/25/2015 Inactive phenazopyridine 200 mg tablet RxNorm: 2600557 1 Tablet(s) PO Q8 02/21/2015 02/20/2015 Inactive Cipro 500 mg tablet RxNorm: 214486 1 Tablet(s) PO BID 201402/20/2015 Inactive phenazopyridine 200 mg tablet RxNorm: 5406489 1 Tablet(s) PO Q8 02/21/2015 02/25/2015 Inactive Cipro 500 mg tablet RxNorm: 145223 1 Tablet(s) PO BID 201402/27/2015 Inactive lisinopril 10 mg tablet RxNorm: 252045 1 Tablet(s) PO BID 02/1406/12/2015 Inactive metoprolol succinate ER 50 mg tablet,extended release 24 hr RxNorm: 871384 3/4 Tablet(s) PO daily 02/11/2015 09/04/2015 Inactive Voltaren 1 % topical gel RxNorm: 854944 2 Gram(s) TOP QID use this on affected joints up to four times daily. 02/11/2015 03/12/2015 Inactive Probiotic oral RxNorm : 6205 oral No Start Date Active aspirin 81 mg tablet RxNorm: 735324 1 Tablet(s) PO daily No Start Date Active Super B-Complex tablet RxNorm: 1 Tablet(s) PO No Start Date Active Flonase Allergy Relief 50 mcg/actuation nasal spray, suspension RxNorm: 4215829 1 [place] NASAL BID No Start Date Active Super-D3+ oral RxNorm : oral No Start Date Active Prilosec OTC 20 mg tablet,delayed release RxNorm: 841757 2 Tablet(s) PO QAM No Start Date Active Flonase Allergy Relief 50 mcg/actuation nasal spray, suspension RxNorm: 6057728 1 [place] NASAL as needed No Start Date Active Move Free Ultra 40 mg-10 mg-3.3 mg tablet RxNorm: 1 Tablet(s) PO daily No Start Date Active metoprolol tartrate 50 mg tablet RxNorm: 794426 1 Tablet(s) PO daily No Start Date 02/10/2015 Inactive lisinopril 10 mg tablet RxNorm: 874942 1 Tablet(s) PO BID No Start Date 02/13/2015 Inactive pravastatin 80 mg tablet RxNorm: 786414 1 Tablet(s) PO daily No Start Date 08/29/2015 Inactive Synthroid 100 mcg tablet RxNorm: 376201 1 Tablet(s) PO daily No Start Date 06/09/2015 Inactive lisinopril 40 mg tablet RxNorm: 922579 1 Tablet(s) PO BID No Start Date 02/28/2018 Inactive Tylenol Arthritis 650 mg tablet,extended release RxNorm: 2543137 4 Tablet(s) PO daily No Start Date 09/09/2015 Inactive Medication Administered Medication Codes Instructions Start Date Status ceftriaxone 500 mg solution for injection RxNorm: 7525682 04/08/2018 No longer Active ceftriaxone 500 mg solution for injection RxNorm: 3766382 04/07/2018 No longer Active ceftriaxone 500 mg solution for injection RxNorm: 1818231 04/06/2018 No longer Active ceftriaxone 500 mg solution for injection RxNorm: 1638407 04/05/2018 No longer Active ketorolac 60 mg/2 mL intramuscular solution RxNorm: 6477776 Milliliter 04/05/2018 No longer Active ceftriaxone 500 mg solution for injection RxNorm: 7455125 04/04/2018 No longer Active ketorolac 30 mg/mL injection solution RxNorm: 351962 2Milliliter 04/04/2018 No longer Active Kenalog 40 mg/mL suspension for injection RxNorm: 8008323 Milliliter 12/24/2017 No longer Active Kenalog 40 mg/mL suspension for injection RxNorm: 4471634 1Milliliter 03/25/2017 No longer Active Kenalog 40 mg/mL suspension for injection RxNorm: 3158078 Milliliter 12/08/2016 No longer Active ceftriaxone 1 gram solution for injection RxNorm: 2316999 03/01/2015 No longer Active ceftriaxone 1 gram solution for injection RxNorm: 6191399 02/28/2015 No longer Active ceftriaxone 1 gram solution for injection RxNorm: 3184988 02/27/2015 No longer Active ceftriaxone 1 gram solution for injection RxNorm: 4448113 02/26/2015 No longer Active ceftriaxone 1 gram solution for injection RxNorm: 1431260 02/25/2015 No longer Active Immunizations Vaccine Codes Date Status Influenza CVX: 141 01/18/2018 completed Influenza CVX: 141 03/15/2017 completed Influenza CVX: 141 03/18/2016 completed Influenza CVX: 141 02/11/2015 completed Assessments Condition Codes Effective Dates Otalgia, right ear ICD-10: H92.01 ICD-9: 388.70 04/13/2018 Other fatigue ICD-10: R53.83 ICD-9: 780.79 04/13/2018 Dysuria ICD-10: R30.0 ICD-9: 788.1 04/08/2018 Headache ICD-10: R51 ICD-9: 784.0 04/05/2018 Essential (primary) hypertension ICD-10: I10 ICD-9: 401.1 04/04/2018 Nausea ICD-10: R11.0 ICD-9: 787.02 04/04/2018 Hypothyroidism, unspecified ICD-10: E03.9 ICD-9: 244.9 04/04/2018 Dizziness and giddiness ICD-10: R42 ICD-9: 780.4 04/01/2018 Candidal stomatitis ICD-10: B37.0 ICD-9: 112.0 04/01/2018 Other acute sinusitis ICD-10: J01.80 ICD-9: 461.8 04/01/2018 Other malaise ICD-10: R53.81 ICD-9: 780.79 04/01/2018 Unspecified mycosis ICD-10: B49 ICD-9: 117.9 [...] Reason For Visit Effective Dates Notes fatigue 04/13/2018 fatigue 04/04/2018 urinary urgency 04/01/2018 dysuria 03/24/2018 headache 03/01/2018 Annual Medicare Wellness Exam 12/24/2017 urinary retention/hesitancy 11/18/2017 earache 11/03/2017 fatigue 09/22/2017 vertigo 04/01/2017 earache 03/25/2017 Annual Medicare Wellness Exam 12/23/2016 vertigo 12/22/2016 headache 12/08/2016 hypertension 11/30/2016 headache 09/28/2016 hypertension 07/06/2016 hypertension 06/01/2016 fatigue 02/27/2016 hypertension 09/10/2015 hypertension 05/14/2015 hypertension 02/11/2015 Results Observation Observation Code Item Item Code Result Date Free T4 Wbe359 FREE T4 1.07 ng/dL 04/04/2018 Tsh Ord6 TSH (3rd IS) 1.93 uIU/mL 04/04/2018 Urine Culture Ucult Preliminary NO Growth Day 1 03/28/2018 Urine Culture Ucult Complete NO Growth Day 2 03/28/2018 Urine Culture Ucult Complete >100,000 col/ml aerobic growth sent to ref lab 11/19/2017 B12 Rsm835 B12 712.00 pg/ml 09/28/2017 C-Reactive Protein Qnt Crqnt CRP 0.1 mg/dl 09/23/2017 Comp Metabolic Drs707 NA 139 mEq/L 09/23/2017 Comp Metabolic Ukm594 K 4.8 mEq/L 09/23/2017 Comp Metabolic Uid995 CL 104 mEq/L 09/23/2017 Comp Metabolic Fwe626 CO2 28.0 mEq/L 09/23/2017 Comp Metabolic Kml734 ANION GAP 12 09/23/2017 Comp Metabolic Wor241 GLUCOSE 92 mg/dL 09/23/2017 Comp Metabolic Dze228 Creat 0.7 mg/dL 09/23/2017 Comp Metabolic Fci581 eGFR 91 ml/min/1.73m2 09/23/2017 Comp Metabolic Beq102 BUN 11 mg/dL 09/23/2017 Comp Metabolic Yom607 B/C Ratio 16.4 Ratio 09/23/2017 Comp Metabolic Trw406 CALCIUM 9.0 mg/dL 09/23/2017 Comp Metabolic Riu608 ALK PHOS 76 U/L 09/23/2017 Comp Metabolic Zid744 AST(SGOT) 24 U/L 09/23/2017 Comp Metabolic Rge664 ALT(SGPT) 21 U/L 09/23/2017 Comp Metabolic Dtj959 BILI T 0.3 mg/dL 09/23/2017 Comp Metabolic Asf275 ALBUMIN 4.1 g/dL 09/23/2017 Comp Metabolic Skd134 TPRO 6.2 g/dL 09/23/2017 Comp Metabolic Xmw511 GLOB 2.1 g/dL 09/23/2017 Comp Metabolic Xtj380 A/G Ratio 1.9 Ratio 09/23/2017 Comp Metabolic Stl402 Osmo 277 mOsmo 09/23/2017 Sed Rate Ord21 ESR 3 mm/hr 09/22/2017 Vitamin D 25 Oh Edk4526 VITAMIN D, 25 HYDROXY 78.79 ng/mL Tsh [...] 97.1 fl 09/22/2017 Cbc With Differential Ord2 [place]% 10.5 % 09/22/2017 Cbc With Differential Ord2 [...] 2.37 K/ul 09/22/2017 Cbc With Differential Ord2 [place] ABS# 0.9 K/ul 09/22/2017 Cbc With Differential Ord2 Eos ABS# 0.2 K/ul 09/22/2017 Cbc With Differential Ord2 Baso ABS# 0.0 K/ul 09/22/2017 Free T4 Yad801 FREE T4 0.99 ng/dL 09/22/2017 %Hba1C Htu401 % HbA1c 04843-5 6.0 % 12/10/2016 %Hba1C Hmg296 Gluc Ave 126 mg/dL 12/10/2016 Tsh Ord6 hTSH II 0.89 uIU/mL 12/09/2016 Free T4 Syz198 FREE T4 0.99 ng/dL 12/09/2016 Comp Metabolic Stt931 NA 138 mEq/L 12/09/2016 Comp Metabolic Los142 K 5.2 mEq/L 12/09/2016 Comp Metabolic Qar719 CL 104 mEq/L 12/09/2016 Comp Metabolic Zcs539 CO2 29.0 mEq/L 12/09/2016 Comp Metabolic Lqr290 ANION GAP 10 12/09/2016 Comp Metabolic Teq521 GLUCOSE 135 mg/dL 12/09/2016 Comp Metabolic Sll927 Creat 0.8 mg/dL 12/09/2016 Comp Metabolic Cql924 eGFR 79 ml/min/1.73m2 12/09/2016 Comp Metabolic Mpx975 BUN 18 mg/dL 12/09/2016 Comp Metabolic Pbf804 B/C Ratio 23.7 Ratio 12/09/2016 Comp Metabolic Ubl390 CALCIUM 9.5 mg/dL 12/09/2016 Comp Metabolic Xns771 ALK PHOS 73 U/L 12/09/2016 Comp Metabolic Krz902 AST(SGOT) 24 U/L 12/09/2016 Comp Metabolic Ers975 ALT(SGPT) 20 U/L 12/09/2016 Comp Metabolic Wyu447 BILI T 0.3 mg/dL 12/09/2016 Comp Metabolic Tac243 ALBUMIN 4.3 g/dL 12/09/2016 Comp Metabolic Zud657 TPRO 6.4 g/dL 12/09/2016 Comp Metabolic Bif978 GLOB 2.1 g/dL 12/09/2016 Comp Metabolic Hxt301 A/G Ratio 2.0 Ratio 12/09/2016 Comp Metabolic Lfl692 Osmo 280 mOsmo 12/09/2016 Cbc With Differential [...] 31.3 pg 12/09/2016 Cbc With Differential Ord2 [place]% 6.5 % 12/09/2016 Cbc With Differential Ord2 [...] 1.84 K/ul 12/09/2016 Cbc With Differential Ord2 [place] ABS# 0.6 K/ul 12/09/2016 Cbc With Differential Ord2 Eos ABS# 0.1 K/ul 12/09/2016 Cbc With Differential Ord2 Baso ABS# 0.1 K/ul 12/09/2016 Tsh Ord6 hTSH II 1.19 uIU/mL 09/02/2016 Free T4 Mta554 FREE T4 0.97 ng/dL 09/02/2016 Comp Metabolic Wls091 NA 137 mEq/L 06/01/2016 Comp Metabolic Ltt688 K 4.1 mEq/L 06/01/2016 Comp Metabolic Wsv645 CL 104 mEq/L 06/01/2016 Comp Metabolic Kvt007 CO2 25.0 mEq/L 06/01/2016 Comp Metabolic Sxb718 ANION GAP 12 06/01/2016 Comp Metabolic Hba565 GLUCOSE 108 mg/dL 06/01/2016 Comp Metabolic Fmo791 Creat 0.8 mg/dL 06/01/2016 Comp Metabolic Pmh923 eGFR 80 ml/min/1.73m2 06/01/2016 Comp Metabolic Del518 BUN 15 mg/dL 06/01/2016 Comp Metabolic Mry994 B/C Ratio 20.0 Ratio 06/01/2016 Comp Metabolic Voh536 CALCIUM 9.1 mg/dL 06/01/2016 Comp Metabolic Hwe026 ALK PHOS 89 U/L 06/01/2016 Comp Metabolic Uzm947 AST(SGOT) 25 U/L 06/01/2016 Comp Metabolic Mej863 ALT(SGPT) 20 U/L 06/01/2016 Comp Metabolic Yur479 BILI T 0.3 mg/dL 06/01/2016 Comp Metabolic Apk505 ALBUMIN 4.2 g/dL 06/01/2016 Comp Metabolic Jea439 TPRO 6.2 g/dL 06/01/2016 Comp Metabolic Fnd244 GLOB 2.0 g/dL 06/01/2016 Comp Metabolic Oer051 A/G Ratio 2.1 Ratio 06/01/2016 Comp Metabolic Wzp556 Osmo 275 mOsmo 06/01/2016 Free T4 Cal287 FREE T4 0.94 ng/dL 06/01/2016 Tsh Ord6 [...] 31.1 pg 06/01/2016 Cbc With Differential Ord2 [place]% 8.4 % 06/01/2016 Cbc With Differential Ord2 [...] 2.96 K/ul 06/01/2016 Cbc With Differential Ord2 [place] ABS# 0.6 K/ul 06/01/2016 Cbc With Differential [...] 31.3 pg 02/27/2016 Cbc With Differential Ord2 [place]% 10.0 % 02/27/2016 Cbc With Differential Ord2 [...] 2.28 K/ul 02/27/2016 Cbc With Differential Ord2 [place] ABS# 0.9 K/ul 02/27/2016 Cbc With Differential Ord2 Eos ABS# 0.3 K/ul 02/27/2016 Cbc With Differential Ord2 Baso ABS# 0.1 K/ul 02/27/2016 Tsh Ord6 hTSH II 0.18 uIU/mL 02/27/2016 Free T4 Eym007 FREE T4 1.17 ng/dL 02/27/2016 Comp Metabolic Jhm766 NA 135 mEq/L 02/27/2016 Comp Metabolic Ybd894 K 5.2 mEq/L 02/27/2016 Comp Metabolic Whw192 CL 102 mEq/L 02/27/2016 Comp Metabolic Qea875 CO2 27.0 mEq/L 02/27/2016 Comp Metabolic Duh888 ANION GAP 11 02/27/2016 Comp Metabolic Ovu900 GLUCOSE 93 mg/dL 02/27/2016 Comp Metabolic Nds596 Creat 0.7 mg/dL 02/27/2016 Comp Metabolic Goq180 eGFR 91 ml/min/1.73m2 02/27/2016 Comp Metabolic Dtp228 BUN 14 mg/dL 02/27/2016 Comp Metabolic Ulp066 B/C Ratio 20.9 Ratio 02/27/2016 Comp Metabolic Uee537 CALCIUM 9.4 mg/dL 02/27/2016 Comp Metabolic Nuj536 ALK PHOS 100 U/L 02/27/2016 Comp Metabolic Yix567 AST(SGOT) 23 U/L 02/27/2016 Comp Metabolic Nlj912 ALT(SGPT) 24 U/L 02/27/2016 Comp Metabolic Pud235 BILI T 0.2 mg/dL 02/27/2016 Comp Metabolic Nds782 ALBUMIN 4.3 g/dL 02/27/2016 Comp Metabolic Jjf479 TPRO 6.3 g/dL 02/27/2016 Comp Metabolic Vno418 GLOB 2.1 g/dL 02/27/2016 Comp Metabolic Iew872 A/G Ratio 2.1 Ratio 02/27/2016 Comp Metabolic Enu976 Osmo 270 mOsmo 02/27/2016 Free T4 Qfm466 FREE T4 1.03 ng/dL 05/10/2015 Comp Metabolic Kdk805 NA 137 mEq/L 05/10/2015 Comp Metabolic Yqa457 K 4.4 mEq/L 05/10/2015 Comp Metabolic Rvs886 CL 102 mEq/L 05/10/2015 Comp Metabolic Vkd261 CO2 28.0 mEq/L 05/10/2015 Comp Metabolic Stg588 ANION GAP 11 05/10/2015 Comp Metabolic Sbc203 GLUCOSE 108 mg/dL 05/10/2015 Comp Metabolic Fuw106 Creat 0.7 mg/dL 05/10/2015 Comp Metabolic Fee519 eGFR 86 ml/min/1.73m2 05/10/2015 Comp Metabolic Rwb794 BUN 13 mg/dL 05/10/2015 Comp Metabolic Yuh550 B/C Ratio 18.3 Ratio 05/10/2015 Comp Metabolic Gcz018 CALCIUM 9.4 mg/dL 05/10/2015 Comp Metabolic Yzc146 ALK PHOS 94 U/L 05/10/2015 Comp Metabolic Fst048 AST(SGOT) 22 U/L 05/10/2015 Comp Metabolic Zdl189 ALT(SGPT) 21 U/L 05/10/2015 Comp Metabolic Slw591 BILI T 0.3 mg/dL 05/10/2015 Comp Metabolic Ill375 ALBUMIN 3.9 g/dL 05/10/2015 Comp Metabolic Uay720 TPRO 6.1 g/dL 05/10/2015 Comp Metabolic Bnh812 GLOB 2.2 g/dL 05/10/2015 Comp Metabolic Vln236 A/G Ratio 1.7 Ratio 05/10/2015 Comp Metabolic Fwv740 Osmo 274 mOsmo 05/10/2015 Tsh Ord6 hTSH [...] 29.4 pg 05/10/2015 Cbc With Differential Ord2 Refugio% 9.0 % 05/10/2015 Cbc With Differential Ord2 [...] 2.14 K/ul 05/10/2015 Cbc With Differential Ord2 Refugio ABS# 0.5 K/ul 05/10/2015 Cbc With Differential [...] Ord30 C/HDL 3.8 Ratio 05/10/2015 Culture Urine [id number] URINE CULTURE SEE NOTES 02/25/2015 Culture Urine [id number] Continued Results 02/25/2015 Urine Culture Ucult Complete >100,000 col/ml aerobic growth sent to ref lab 02/22/2015 Free T4 Jnt602 FREE T4 1.16 ng/dL 02/11/2015 Tsh Ord6 hTSH II 0.51 uIU/mL 02/11/2015 Review of Systems System Result Effective Dates Constitutional No recent illness 2017 Constitutional No [...] Effective Dates Notes Full Exam - General 1995 Constitutional general appearance Overall: well developed 04/13/2018 [...] Procedure Codes Date THER/PROPH/DIAG INJ SC/IM CPT-4: 15057 04/08/2018 ROCEPHIN, PER 250 MG CPT-4: J0696 04/08/2018 THER/PROPH/DIAG INJ SC/IM CPT-4: 35797 04/07/2018 ROCEPHIN, PER 250 MG CPT-4: J0696 04/07/2018 THER/PROPH/DIAG INJ SC/IM CPT-4: 59356 04/06/2018 ROCEPHIN, PER 250 MG CPT-4: J0696 04/06/2018 THER/PROPH/DIAG INJ SC/IM CPT-4: 53440 04/05/2018 ROCEPHIN, PER 250 MG CPT-4: J0696 04/05/2018 KETOROLAC TROMETHAMINE INJ CPT-4: J1885 04/05/2018 THER/PROPH/DIAG INJ SC/IM CPT-4: 00726 04/04/2018 ROCEPHIN, PER 250 MG CPT-4: J0696 04/04/2018 KETOROLAC TROMETHAMINE INJ CPT-4: J1885 04/04/2018 URINALYSIS NONAUTO W/O SCOPE CPT-4: 49216 03/24/2018 PPPS, SUBSEQ VISIT CPT -4: G0439 12/24/2017 THER/PROPH/DIAG INJ SC/IM CPT-4: 81891 12/24/2017 TRIAMCINOLONE ACET INJ NOS CPT-4: J3301 12/24/2017 THER/PROPH/DIAG INJ SC/IM CPT-4: 06315 11/18/2017 ROCEPHIN, PER 250 MG CPT-4: J0696 11/18/2017 PRESCRIP TRANSMIT VIA ERX SY CPT-4: G8553 04/01/2017 TRIAMCINOLONE ACET INJ NOS CPT-4: J3301 03/25/2017 PPPS, SUBSEQ VISIT CPT -4: G0439 12/23/2016 THER/PROPH/DIAG INJ SC/IM CPT-4: 57318 12/08/2016 TRIAMCINOLONE ACET INJ NOS CPT-4: J3301 12/08/2016 PRESCRIP TRANSMIT VIA ERX SY CPT-4: G8553 12/08/2016 PRESCRIP TRANSMIT VIA ERX SY CPT-4: G8553 11/30/2016 URINALYSIS NONAUTO W/O SCOPE CPT-4: 86212 07/08/2016 PRESCRIP TRANSMIT VIA ERX SY CPT-4: G8553 06/01/2016 PRESCRIP TRANSMIT VIA ERX SY CPT-4: G8553 02/27/2016 THER/PROPH/DIAG INJ SC/IM CPT-4: 19824 03/01/2015 ROCEPHIN, PER 250 MG CPT-4: J0696 03/01/2015 THER/PROPH/DIAG INJ SC/IM CPT-4: 74255 02/28/2015 ROCEPHIN, PER 250 MG CPT-4: J0696 02/28/2015 THER/PROPH/DIAG INJ SC/IM CPT-4: 99997 02/27/2015 ROCEPHIN, PER 250 MG CPT-4: J0696 02/27/2015 THER/PROPH/DIAG INJ SC/IM CPT-4: 58895 02/26/2015 ROCEPHIN, PER 250 MG CPT-4: J0696 02/26/2015 THER/PROPH/DIAG INJ SC/IM CPT-4: 30019 02/25/2015 ROCEPHIN, PER 250 MG CPT-4: J0696 02/25/2015 URINALYSIS NONAUTO W/O SCOPE CPT-4: 14655 02/21/2015 Vital Signs Date Vital 04/13/2018 Blood Pressure 1: 142/76 Code : 8480-6 Heart Rate 1: 78 bpm SpO2: 94% 04/07/2018 Blood Pressure 1: 160/80 Code : 8480-6 Heart Rate 1: 60 bpm 04/04/2018 Blood Pressure 1: 130/60 Code : 8480-6 Heart Rate 1: 78 bpm Height: Weight: 04/01/2018 Blood Pressure 1: 134/58 Code : 8480-6 BMI: 27.8 Code : 55249-9 Heart Rate 1 : 85 bpm Height: 5'3" SpO2: 96% Weight: 157 lbs 03/24/2018 Blood Pressure 1: 128/82 Code : 8480-6 BMI: 27.8 Code : 32557-6 Heart Rate 1 : 84 bpm Height: 5'3" SpO2: 97% Weight: 157 lbs 03/01/2018 Blood Pressure 1: 136/70 Code : 8480-6 BMI: 27.8 Code : 53859-6 Heart Rate 1 : 70 bpm Height: 5'3" SpO2: 96% Weight: 157 lbs 12/24/2017 Height: Weight: 11/18/2017 Blood Pressure 1: 164/74 Code : 8480-6 BMI: 27.6 Code : 95460-9 Heart Rate 1 : 70 bpm Height: 5'3" SpO2: 96% Weight: 156 lbs 11/03/2017 Blood Pressure 1: 118/72 Code : 8480-6 BMI: 27.6 Code : 92774-8 Heart Rate 1 : 82 bpm Height: 5'3" SpO2: 96% Weight: 156 lbs 09/22/2017 Blood Pressure 1: 136/68 Code : 8480-6 BMI: 27.6 Code : 83364-2 Heart Rate 1 : 70 bpm Height: 5'3" SpO2: 97% Weight: 156 lbs 04/01/2017 Blood Pressure 1: 144/82 Code : 8480-6 Heart Rate 1: 68 bpm Height: 5'3" SpO2: 97% Weight: 03/25/2017 Blood Pressure 1: 116/70 Code : 8480-6 BMI: 26.7 Code : 98431-1 Heart Rate 1 : 67 bpm Height: 5'3" SpO2: 98% Weight: 151 lbs 12/23/2016 BMI: 26.7 Code: 98109-1 Height: 5'3" Weight: 151 lbs 12/22/2016 Blood Pressure 1: 142/60 Code : 8480-6 BMI: 26.7 Code : 45342-4 Heart Rate 1 : 67 bpm Height: 5'3" SpO2: 98% Weight: 151 lbs 12/08/2016 Blood Pressure 1: 140/72 Code : 8480-6 Heart Rate 1: 72 bpm Height: 5'3" SpO2: 97% Weight: 11/30/2016 Blood Pressure 1: 128/80 Code : 8480-6 BMI: 26.7 Code : 43077-0 Heart Rate 1 : 63 bpm Height: 5'3" SpO2: 96% Weight: 151 lbs 09/28/2016 Blood Pressure 1: 130/80 Code : 8480-6 BMI: 27.1 Code : 70430-9 Heart Rate 1 : 80 bpm Height: 5'3" SpO2: 97% Weight: 153 lbs 07/06/2016 Blood Pressure 1: 162/72 Code : 8480-6 BMI: 27.6 Code : 11855-4 Heart Rate 1 : 72 bpm Height: 5'3" SpO2: 98% Weight: 156 lbs 06/01/2016 Blood Pressure 1: 122/66 Code : 8480-6 BMI: 27.5 Code : 81672-8 Heart Rate 1 : 73 bpm Height: 5'3" SpO2: 98% Weight: 155 lbs 8 oz 02/27/2016 Blood Pressure 1: 126/68 Code : 8480-6 BMI: 26.9 Code : 34419-7 Heart Rate 1 : 70 bpm Height: 5'3" SpO2: 98% Weight: 152 lbs 09/10/2015 Blood Pressure 1: 130/70 Code : 8480-6 BMI: 26.9 Code : 55047-6 Heart Rate 1 : 72 bpm Height: 5'3" SpO2: 97% Weight: 152 lbs 05/14/2015 Blood Pressure 1: 138/82 Code : 8480-6 BMI: 26.4 Code : 90294-8 Heart Rate 1 : 75 bpm Height: 5'3" SpO2: 98% Weight: 149 lbs 02/11/2015 Blood Pressure 1: 128/72 Code : 8480-6 BMI: 25.5 Code : 33525-4 Heart Rate 1 : 73 bpm Height: 5'3" SpO2: 94% Weight: 144 lbs Functional Status No Functional Status data History of Present Illness Symptom Name Status Result Effective Date Notes Limitation on Activities moderately limits activities 04/13/2018 [...] Performer Location Codes Date EST. PATIENT, LEVEL III Diagnosis: Other fatigue[ICD10: R53.83] Diagnosis: Otalgia, right ear[ICD10: H92.01] [facility] CPT -4: 57453 04/13/2018 ([id number]) 18224 EST. PATIENT, LEVEL III Diagnosis: Essential (primary) hypertension[ICD10: I10] Diagnosis: Dysuria[ICD10: R30.0] Diagnosis: Nausea[ICD10: R11.0] Diagnosis: Headache[ICD10: R51] Elen Cortez MD, [facility] CPT-4: 92245 04/04/2018 [id number] EST. PATIENT, LEVEL III Diagnosis: Other acute sinusitis[ICD10: J01.80] Diagnosis: Dizziness and giddiness[ICD10: R42] Diagnosis: Dysuria[ICD10: R30.0] Diagnosis: Candidal stomatitis[ICD10: B37.0] Diagnosis: Essential (primary) hypertension[ICD10: I10] Diagnosis: Other fatigue[ICD10: R53.83] Diagnosis: Other malaise[ICD10: R53.81] Bridget Cortez MD, [facility] CPT-4 : 66941 04/01/2018 ([id number]) 13165 EST. 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 PATIENT, LEVEL IV Diagnosis: Otalgia, right ear[ICD10: H92.01] Diagnosis: Headache[ICD10: R51] Diagnosis: Other fatigue[ICD10: R53.83] Diagnosis: Abnormal findings on diagnostic imaging of other specified body structures[ICD10: R93.89] Elen Cortez MD, [facility] CPT-4: 93966 03/01/2018 89395 EST. PATIENT, LEVEL III Diagnosis: Acute cystitis with hematuria[ICD10: N30.01] Bridget Cortez MD, [facility] CPT-4: 52692 11/18/2017 70863 EST. PATIENT, LEVEL IV Diagnosis: Other acute sinusitis[ICD10: J01.80] Diagnosis: Otalgia, right ear[ICD10: H92.01] Bridget Cortez MD, [facility] CPT -4: 28393 11/03/2017 81566 EST. PATIENT, LEVEL III Diagnosis: Other fatigue[ICD10: R53.83] Diagnosis: Other malaise[ICD10: R53.81] Diagnosis: Pain in left knee[ICD10: M25.562] Diagnosis: Pain in right knee[ICD10: M25.561] Bridget Cortez MD, [facility] CPT-4: 32129 09/22/2017 ([id number]) 46273 EST. PATIENT, LEVEL III Diagnosis: Cough[ICD10: R05] Diagnosis: Acute bronchitis due to other specified organisms[ICD10: J20.8] Elen Cortez MD, [facility] CPT-4: 33307 04/01/2017 ([id number]) 07885 EST. PATIENT, LEVEL III Diagnosis: Otalgia, right ear[ICD10: H92.01] Diagnosis: Other allergic rhinitis[ICD10: J30.89] Shiela Cortez MD, [facility] CPT-4: 90231 03/25/2017 ([id number]) 58703 EST. PATIENT, LEVEL III Diagnosis: Benign paroxysmal vertigo, bilateral[ICD10: H81.13] Shiela Cortez MD, [facility] CPT-4: 25167 12/22/2016 ([id number]) 72205 EST. PATIENT, LEVEL IV Diagnosis: Benign paroxysmal vertigo, bilateral[ICD10: H81.13] Diagnosis: Other allergic rhinitis[ICD10: J30.89] Diagnosis: Hypothyroidism, unspecified[ICD10: E03.9] Shiela Cortez MD, [facility] CPT-4: 42886 12/08/2016 ([id number]) 99897 EST. PATIENT, LEVEL IV Diagnosis: Atrophy of thyroid (acquired)[ICD10: E03.4] Diagnosis: Essential (primary) hypertension[ICD10: I10] Diagnosis: Mixed hyperlipidemia[ICD10: E78.2] Elen Cortez MD, [facility] CPT-4: 39290 11/30/2016 12751 EST. PATIENT, LEVEL IV Diagnosis: Headache[ICD10: R51] Diagnosis: Other fatigue[ICD10: R53.83] Diagnosis: Dizziness and giddiness[ICD10: R42] Bridget Cortez MD, [facility] CPT-4: 29951 09/28/2016 34143 EST. PATIENT, LEVEL IV Diagnosis: Essential (primary) hypertension[ICD10: I10] Diagnosis: Headache[ICD10: R51] Bridget Cortez MD, [facility] CPT-4: 25454 07/06/2016 ([id number]) 07538 EST. PATIENT, LEVEL IV Diagnosis: Essential (primary) hypertension[ICD10: I10] Diagnosis: Atrophy of thyroid (acquired)[ICD10: E03.4] Diagnosis: Mixed hyperlipidemia[ICD10: E78.2] Elen Cortez MD, [facility] CPT-4: 02192 06/01/2016 94469 EST. PATIENT, LEVEL IV Diagnosis: Acute laryngopharyngitis[ICD10: J06.0] Diagnosis: Other allergic rhinitis[ICD10: J30.89] Diagnosis: Other specified hypothyroidism[ICD10: E03.8] Diagnosis: Other fatigue[ICD10: R53.83] Bridget Cortez MD, [facility] CPT-4 : 62546 02/27/2016 ([id number]) 97357 EST. PATIENT, LEVEL III Diagnosis: Essential (primary) hypertension[ICD10: I10] Diagnosis: Mixed hyperlipidemia[ICD10: E78.2] Elen Cortez MD, [facility] CPT-4: 85096 09/10/2015 ([id number]) 87658 EST. PATIENT, LEVEL IV Diagnosis: Essential (primary) hypertension[ICD10: I10] Diagnosis: Hypothyroidism, unspecified[ICD10: E03.9] Diagnosis: Unspecified osteoarthritis, unspecified site[ICD10: M19.90] Elen Cortez MD , [facility] CPT-4: 47328 05/14/2015 ([id number]) OFFICE VISIT, NEW - LEVEL 4 Diagnosis: Essential (primary) hypertension[ICD10: I10] Diagnosis: Hypothyroidism, unspecified[ICD10: E03.9] Diagnosis: Unspecified osteoarthritis, unspecified site[ICD10: M19.90] Elen Cortez MD , [facility] CPT-4: 55512 02/11/2015 Plan of Care Planned Activity Notes Codes Status Date Referral: Wan Steven Referral Completed 04/28/2018 Care Plan: Urine Culture Pending 04/14/2018 Visit [...] Dr. Saini. 04/13/2018 Appointment: Bridget Velazco WPtel: [phone] [facility] (30 min) Complex 04/13/2018 Patient Education: Patient Medication Summary Completed 04/13/2018 Appointment: Nurse Visit 04/08/2018 Appointment: Bridget Velazco WPtel: [facility]5 [facility] (15 min) Moderate 04/08/2018 Patient Education: Patient Medication Summary Completed 04/08/2018 Appointment: Injection 04/07/2018 Patient Education: Patient Medication Summary Completed 04/07/2018 Appointment: Injection 04/06/2018 Patient Education: Patient Medication Summary Completed 04/06/2018 Appointment: Injection 04/05/2018 Appointment: Elen Cortez WPtel: [facility] (15 min) Moderate 04/05/2018 Patient Education: Patient [...] toradol today. 04/04/2018 Appointment: Elen Cortez WPtel: [facility]5 [facility] [place] (10 min) Simple 04/04/2018 Patient Education: Patient Medication Summary Completed 04/04/2018 Patient Education: Patient Medication Summary Completed 04/04/2018 Patient Education: Patient Medication Summary Completed 04/04/2018 Care Plan: Referral Order SNOMED-CT : [id number] Pending 04/04/2018 Visit Plan: Dysuria, dizziness, fatigue, [...] show improvement. 04/01/2018 Appointment: Bridget Velazco WPtel: [address] [place], [place] [phone] (15 min) Moderate 04/01/2018 Patient Education: Patient Medication Summary Completed 04/01/2018 Visit Plan: Sinusitis - Pt has acute infection - pain in face, maxillary region, Pt informed to use decongestant, RX given to patient, sinus rinses also recommended. Call if symptoms do not show improvement. Dysuria - rx for antibiotic sent to pharmacy. 03/24/2018 Appointment: Elen Cortez WPtel: [address] [place], [place] [phone] (15 min) Moderate 03/24/2018 Patient Education: Patient [...] improve. 03/01/2018 Appointment: [phone] (15 min) Moderate 03/01/2018 Patient Education: Patient [...] 12/24/2017 App[facility]ment[phone] [facility] - Annual Wellness Visit 12/24/2017 Patient Education: Patient Medication Summary Completed 12/24/2017 Appointment: [phone] (15 min) Moderate 11/30/2017 Appointment: Lab [...] not improve. 11/18/2017 Appointment: Bridget Velazco WPtel: [facility]66[facility] (15 min) Moderate 11/18/2017 Patient Education: Patient Medication Summary Completed 11/18/2017 Visit Plan: Sinusitis - Pt has acute infection - pain in face, maxillary region, Pt informed to use decongestant, RX given to patient, sinus rinses also recommended. Call if symptoms do not show improvement. 11/03/2017 Appointment: Bridget Velazco WPtel: [facility]2 [facility] (15 min) Moderate 11/03/2017 Patient Education: Patient [...] not improve. 09/22/2017 Appointment: Bridget Velazco WPtel: [facility]5 [facility]66[facility] (15 min) Moderate 09/22/2017 Patient Education: Patient Medication Summary Completed 09/22/2017 Visit Plan: Bronchitis - acute case of bronchitis identified. Pt has been given antibiotics, breathing treatments as appropriate, and pt has been instructed to call if symptoms are not improved, or if symptoms acutely worsen. 04/01/2017 Appointment: Elen Cortez WPtel: [facility] (15 min) Moderate 04/01/2017 Patient Education: Patient [...] allergy spray. 03/25/2017 Appointment: Shiela Srivastava WPtel: [facility]2 [phone] (10 min) Simple 03/25/2017 Appointment: Elen Cortez WPtel: [address] [place], [place] [phone] (15 min) Moderate 03/25/2017 Patient Education: Patient [...] care surrogate. 12/23/2016 Appointment: Bridget Velazco WPtel: [address] [place], [place] [phone] [facility] - Annual Wellness Visit 12/23/2016 Patient Education: Patient Medication Summary Completed 12/23/2016 Visit Plan: Vertigo-discussed PT for vestibular exercises- patient wants to wait since symptoms are improving-continue anti histamine as directed-meclizine as needed 12/22/2016 Appointment: Shiela Srivastava WPtel: [facility]8 [phone] (30 min) Complex 12/22/2016 Patient Education: Patient [...] control. 12/08/2016 Appointment: Shiela Srivastava WPtel: [phone] [phone] (30 min) Complex 12/08/2016 Patient Education: Patient [...] medications. 11/30/2016 Appointment: [phone] (15 min) Moderate 11/30/2016 Patient Education: Patient [...] concerns. 09/28/2016 Appointment: [phone] ([facility] min) Complex 09/28/2016 Patient [...] concerns. 07/06/2016 Appointment: [phone] (15 min) Moderate 07/06/2016 Patient [...] improving 06/01/2016 Appointment: [facility] Cortez [facility]Ptel[phone] (15 min) Moderate 06/01/2016 Patient Education: Patient [...] check labs 02/27/2016 Appointment: [phone] (30 min) Complex 02/27/2016 Patient Education: Patient Medication Summary Completed 02/27/2016 Patient Education: Patient Medication Summary Completed 09/27/2015 Care Plan: SCREENINGMAMMOGRAPHYDIGITAL LOINC : 35178-7 Pending 09/27/2015 Visit Plan: Hypertension - well [...] the colonoscopy 09/10/2015 Appointment: Elen Cortez [facility]Ptel: [phone] [place] (15 min) Moderate 09/10/2015 Patient Education: [...] Sanchez. 05/14/2015 Appointment: [facility] Cortez [facility]Ptel: [phone] [place] (15 min) Moderate 05/14/2015 Patient Education: Patient Medication Summary Completed 05/14/2015 Patient Education: Hypertension Completed 05/14/2015 Care Plan: Referral Order SNOMED-CT : [id number] Ordered 05/14/2015 Patient Education: Patient Medication Summary Completed 03/01/2015 Appointment: Nurse Visit 02/28/2015 Patient Education: Patient Medication Summary Completed 02/28/2015 Patient Education: Patient Medication Summary Completed 02/27/2015 Appointment: Nurse Visit 02/26/2015 Patient Education: Patient Medication Summary Completed 02/26/2015 Appointment: Injection 02/25/2015 Patient Education: Patient Medication Summary Completed 02/25/2015 Patient Education: Patient Medication Summary Completed 02/21/2015 Care Plan: URINALYSIS NONAUTO W/O [facility]OPE [facility] : 26293-0 Ordered 02/21/2015 Visit Plan: Hypertension - well [...] pain symptoms. 02/11/2015 Appointment: Elen Cortez WPtel: [facility] New Patient 02/11/2015 Patient Education: Patient Medication [...] if symptoms do not show improvement. . URI - Pt advised to increase [...] in the nasal steroid allergy spray. . Fatigue, Malaise - will check labs [...] is worsening or does not improve. . Medicare Exam - today we discussed [...] histamine as directed- meclizine as needed . UTI - symptoms resolved - repeat [...] to call if symptoms do not improve. increase lisinopril to 20mg twice a day. [...] with any changes, questions, or concerns. . Sinusitis - Pt has acute infection [...]
--- OUTSIDE RECORDS SUMMARY | 2018-06-01 12:46 | XMS REPORT | CCD ---
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 Name Role Phone PP Unavailable CCM Unavailable Summary Purpose Interface Exchange Insurance Providers Payer name Policy type / Coverage type Covered republican ID Effective Begin Date Effective End Date WPS Medicare Part B Medicare Part B [id number] Unknown Czech Long Term Life Insurance Medicare Part B [id number] Unknown Family history Mother Diagnosis Age At [...] spouses - 02/11/[address]: 555519506 Never smoker 02/11/2015 Alcohol history Unknown occasionally drinks alcohol 02/11/2015 Allergies, Adverse Reactions, Alerts Substance Reaction Codes Entered Date Inactivated Date Status CODEINE RxNorm: 2670 02/11/2015 No Inactive Date Active allergy Unknown 12/23/2016 No Inactive Date Active ciprofloxacin rash, RxNorm: 22578 02/26/2015 No Inactive Date Active hydrocodone Unknown [...] ceftriaxone 500 mg solution for injection RxNorm: 2980973 Inj 04/08/2018 04/08/2018 Inactive ceftriaxone 500 mg solution for injection RxNorm: 7129461 Inj 04/07/2018 04/07/2018 Inactive ceftriaxone 500 mg solution for injection RxNorm: 5456318 Inj 04/06/2018 04/06/2018 Inactive ketorolac 60 mg/2 mL intramuscular solution RxNorm: 1880638 Milliliter(s) IM 04/05/2018 04/05/2018 Inactive ceftriaxone 500 mg solution for injection RxNorm: 8654475 Inj 04/05/2018 04/05/2018 Inactive ondansetron 4 mg disintegrating tablet RxNorm: 752728 1 Tablet(s) PO TID as needed nausea 04/04/2018 No Stop Date Active ketorolac 30 mg/mL injection solution RxNorm: 193179 2 Milliliter(s) Inj 04/04/2018 04/04/2018 Inactive ceftriaxone 500 mg solution for injection RxNorm: 5962626 Inj 04/04/2018 04/04/2018 Inactive nystatin 100,000 unit/mL oral suspension RxNorm: 745959 4 Milliliter(s) PO QID 04/01/2018 04/05/2018 Inactive doxycycline hyclate 100 mg tablet RxNorm: 1159647 1 Tablet(s) PO BID 04/01/2018 04/10/2018 Inactive prednisone 10 mg tablet RxNorm: 848587 1 Tablet(s) PO UD 6 pills on day 1 and 2 and then decrease by one pill every other day until prescription is done 03/24/2018 No Stop Date Active amoxicillin 500 mg capsule RxNorm: 337750 1 Capsule(s) PO TID 03/24/2018 04/02/2018 Inactive metoprolol succinate ER 50 mg tablet,extended release 24 hr RxNorm: 089192 Tablet (s) TAKE 1 TABLET BY MOUTH DAILY 03/21/2018 10/16/2018 Active PLEASE SEND REFILL REQUESTS ELECTRONICALLY!! Synthroid 88 mcg tablet RxNorm: 339218 TAKE 1 TABLET BY MOUTH DAILY 03/08/2018 08/04/2018 Active 03/07/2018 11:21:21 AM pravastatin 80 mg tablet RxNorm: 153419 Tablet(s) 1 Tablet(s) PO daily 03/01/2018 02/23/2019 Active Kenalog 40 mg/mL suspension for injection RxNorm: 5368091 Milliliter(s) Inj 12/24/2017 12/24/2017 Inactive cetirizine 10 mg tablet RxNorm: 7497234 TAKE 1 TABLET BY MOUTH DAILY 12/21/2017 07/18/2018 Active Generic For:*ZYRTEC 10 MG TABLET 12/21/2017 10:08:05 AM Synthroid 88 mcg tablet RxNorm: 461044 TAKE 1 TABLET BY MOUTH DAILY 12/07/2017 03/06/2018 Inactive 12/06/2017 11:46:49 AM Lipitor 80 mg tablet RxNorm: 680295 1 Tablet(s) PO daily 201702/28/2018 Inactive pravastatin 80 mg tablet RxNorm: 579387 1 Tablet(s) PO daily 11/29/2017 Inactive Lipitor 80 mg tablet RxNorm: 523661 1 Tablet(s) PO daily 201711/28/2017 Inactive lisinopril 20 mg tablet RxNorm: 425958 TAKE 1 TABLET BY MOUTH TWICE DAILY 11/23/2017 04/21/2018 Active Generic For:*PRINIVIL 20 MG TABLET 11/23/2017 11:29:44 AM Macrobid 100 mg capsule RxNorm: 787595 1 Capsule(s) PO BID 06/201711/25/2017 Inactive Macrobid 100 mg capsule RxNorm: 764085 1 Capsule(s) PO BID 06/201711/18/2017 Inactive Lomotil 2.5 mg-0.025 mg tablet RxNorm: 6336740 1 -2 Tablet(s) PO TID as needed 11/19/2017 11/25/2017 Inactive Lomotil 2.5 mg-0.025 mg tablet RxNorm: 2268746 1 -2 Tablet(s) PO TID as needed 11/19/2017 11/18/2017 Inactive Pyridium 200 mg tablet RxNorm: 0185533 1 Tablet(s) PO TID as needed 11/18/2017 11/22/2017 Inactive Augmentin 500 mg-125 mg tablet RxNorm: 244966 1 Tablet(s) PO TID 11/18/2017 11/27/2017 Inactive Keflex 500 mg capsule RxNorm: 109662 1 Capsule(s) PO TID 201711/09/2017 Inactive Denavir 1 % topical cream RxNorm: 815423 1 TOP TID as needed cold sores 11/01/2017 01/29/2018 Inactive Denavir 1 % topical cream RxNorm: 801479 1 TOP TID as needed cold sores 11/01/2017 10/31/2017 Inactive Synthroid 88 mcg tablet RxNorm: 136531 TAKE 1 TABLET BY MOUTH DAILY 09/29/2017 11/27/2017 Inactive 09/29/2017 12:58:07 PM pravastatin 80 mg tablet RxNorm: 453435 1 Tablet(s) PO daily 08/30/2017 Inactive pravastatin 80 mg tablet RxNorm: 616926 1 Tablet(s) PO daily 11/28/2017 Inactive Synthroid 88 mcg tablet RxNorm: 879774 TAKE 1 TABLET BY MOUTH DAILY 08/30/2017 09/28/2017 Inactive 08/30/2017 10:53:26 AM metoprolol succinate ER 50 mg tablet,extended release 24 hr RxNorm: 521095 Tablet (s) TAKE 1 TABLET BY MOUTH DAILY 08/17/2017 03/14/2018 Inactive PLEASE SEND REFILL REQUESTS ELECTRONICALLY!! lisinopril 20 mg tablet RxNorm: 281280 TAKE 1 TABLET BY MOUTH TWICE DAILY 06/18/2017 11/14/2017 Inactive Generic For:*PRINIVIL 20 MG TABLET 06/18/2017 1:31: 00 PM Synthroid 88 mcg tablet RxNorm: 636887 TAKE 1 TABLET BY MOUTH DAILY 05/24/2017 08/21/2017 Inactive 05/24/2017 2:13:21 PM cetirizine 10 mg tablet RxNorm: 9365193 1 Tablet(s) PO daily 12/12/2017 Inactive Zithromax Z-Russell 250 mg capsule RxNorm: 843290 1 Capsule(s) PO 04/02/2017 04/05/2017 Inactive Zithromax Z-Russell 250 mg tablet RxNorm: 725984 1 Tablet(s) PO 04/01/2017 Inactive Zithromax Z-Russell 250 mg capsule RxNorm: 681289 1 Capsule(s) PO 04/02/2017 04/01/2017 Inactive Zithromax Z-Russell 250 mg tablet RxNorm: 035761 1 Tablet(s) PO 04/06/2017 Inactive Ventolin HFA 90 mcg/actuation aerosol inhaler RxNorm: 766278 2 INH QID as needed - for the first 3 days inhale at least two puffs three times daily, then use as needed for shortness of breath 04/01/2017 04/30/2017 Inactive Keflex 500 mg capsule RxNorm: 271213 1 Capsule(s) PO TID 201604/01/2017 Inactive meclizine 25 mg tablet RxNorm: 407915 1 Tablet(s) PO Q6 PRN 1 Tablet(s) PO Q6 PRN 03/25/2017 No Stop Date Active dizziness meclizine 25 mg tablet RxNorm: 755328 Tablet(s) 1 Tablet(s) PO Q6 PRN 03/25/2017 03/24/2017 Inactive dizziness Kenalog 40 mg/mL suspension for injection RxNorm: 5793458 1 Milliliter(s) Inj 03/25/2017 03/25/2017 Inactive meclizine 25 mg tablet RxNorm: 683750 1 Tablet(s) PO Q6 PRN 03/24/2017 Inactive dizziness lisinopril 20 mg tablet RxNorm: 585768 1 Tablet(s) PO BID 01/1506/13/2017 Inactive metoprolol succinate ER 50 mg tablet,extended release 24 hr RxNorm: 153852 TAKE 1 TABLET BY MOUTH DAILY 01/07/20172017 Inactive Generic For:TOPROL XL 50MG TAB 01/07/2017 12:38:23 PM Synthroid 88 mcg tablet RxNorm: 262412 TAKE 1 TABLET BY MOUTH DAILY 12/25/2016 05/23/2017 Inactive 12/25/2016 9:47:08 AM Zithromax Z-Russell 250 mg tablet RxNorm: 850866 Tablet(s) PO UD 03/24/2017 Inactive meclizine 25 mg tablet RxNorm: 183052 1 Tablet(s) PO Q6 PRN 12/20/2016 Inactive dizziness Kenalog 40 mg/mL suspension for injection RxNorm: 9729700 Milliliter(s) Inj 12/08/2016 12/08/2016 Inactive meloxicam 15 mg tablet RxNorm: 016277 1 Tablet(s) PO daily 12/20/2016 Inactive cetirizine 10 mg tablet RxNorm: 3486801 1 Tablet(s) PO daily 05/16/2017 Inactive pravastatin 40 mg tablet RxNorm: 286442 1 Tablet(s) PO BID 07/201608/30/2017 Inactive Cancel 80 mg tab lisinopril 20 mg tablet RxNorm: 419686 1 Tablet(s) PO BID 08/1212/22/2016 Inactive Synthroid 88 mcg tablet RxNorm: 479796 1 Tablet(s) PO TAKE ONE (1) TABLET BY MOUTH DAILY 07/28/2016 12/24/2016 Inactive decrease dose hydralazine 25 mg tablet RxNorm: 496348 1 Tablet(s) PO TID as needed for Systolic blood pressure over 170 07/06/20162016 Inactive lisinopril 20 mg tablet RxNorm: 645715 1 Tablet(s) PO BID to replace your other lisinopril dose 07/06/2016 08/04/2016 Inactive lisinopril 10 mg tablet RxNorm: 699367 TAKE ONE TABLET BY MOUTH TWICE DAILY 06/10/2016 08/11/2016 Inactive Generic For:ZESTRIL 10 MG TABLET 06/09/2016 12:58: 50 PM triamcinolone acetonide 0.1 % topical cream RxNorm: 9140281 1 Application TOP TID as needed 06/01/2016 No Stop Date Active nystatin 100,000 unit/gram topical cream RxNorm: 482609 1 Gram(s) TOP TID as needed 06/01/2016 No Stop Date Active metoprolol succinate ER 50 mg tablet,extended release 24 hr RxNorm: 942875 1 Tablet(s) PO daily 05/26/2016 12/21/2016 Inactive cetirizine 10 mg tablet RxNorm: 9950520 1 Tablet(s) PO daily 10/18/2016 Inactive Synthroid 88 mcg tablet RxNorm: 224286 1 Tablet(s) PO TAKE ONE (1) TABLET BY MOUTH DAILY 03/06/2016 03/07/2018 Inactive Brand name only! Synthroid 88 mcg tablet RxNorm: 435125 1 Tablet(s) PO TAKE ONE (1) TABLET BY MOUTH DAILY 03/04/2016 03/05/2016 Inactive decrease dose cetirizine 10 mg tablet RxNorm: 9701704 1 Tablet(s) PO daily 03/22/2016 Inactive amoxicillin 500 mg capsule RxNorm: 647362 1 Capsule(s) PO TID 02/27/2016 03/04/2016 Inactive lisinopril 10 mg tablet RxNorm: 852996 TAKE ONE TABLET BY MOUTH TWICE DAILY 02/06/2016 06/04/2016 Inactive Generic For:ZESTRIL 10 MG TABLET 02/06/2016 12:16: 38 PM Synthroid 100 mcg tablet RxNorm: 110124 TAKE ONE (1) TABLET BY MOUTH DAILY 01/03/2016 03/03/2016 Inactive 01/03/2016 10:35:14 AM N O T I C E Last quantity doesn't match original quantity lisinopril 10 mg tablet RxNorm: 018527 1 Tablet(s) PO BID 10/0301/31/2016 Inactive Synthroid 100 mcg tablet RxNorm: 218696 1 Tablet(s) PO daily 01/02/2016 Inactive metoprolol succinate ER 50 mg tablet,extended release 24 hr RxNorm: 324971 1 Tablet(s) PO daily 10/04/2015 04/30/2016 Inactive Tylenol Arthritis 650 mg tablet,extended release RxNorm: 6913450 2 Tablet(s) PO TID 09/10/2015 No Stop Date Active metoprolol succinate ER 50 mg tablet,extended release 24 hr RxNorm: 486595 1 Tablet(s) PO daily 09/05/2015 10/03/2015 Inactive pravastatin 80 mg tablet RxNorm: 449579 1 Tablet(s) PO QHS 08/30/2015 Inactive pravastatin 40 mg tablet RxNorm: 149370 1 Tablet(s) PO BID 08/29/2015 Inactive Cancel 80 mg tab pravastatin 40 mg tablet RxNorm: 021486 1 Tablet(s) PO BID 08/19/2016 Inactive Cancel 80 mg tab lisinopril 10 mg tablet RxNorm: 018833 1 Tablet(s) PO BID 06/1308/11/2016 Inactive lisinopril 10 mg tablet RxNorm: 034294 1 Tablet(s) PO BID 06/1310/03/2015 Inactive Synthroid 100 mcg tablet RxNorm: 873294 1 Tablet(s) PO daily 10/03/2015 Inactive ceftriaxone 1 gram solution for injection RxNorm: 4772872 Inj 03/01/2015 03/01/2015 Inactive ceftriaxone 1 gram solution for injection RxNorm: 9023674 Inj 02/28/2015 02/28/2015 Inactive ceftriaxone 1 gram solution for injection RxNorm: 3019174 Inj 02/27/2015 02/27/2015 Inactive ceftriaxone 1 gram solution for injection RxNorm: 4566437 Inj 02/26/2015 02/26/2015 Inactive ceftriaxone 1 gram solution for injection RxNorm: 2495858 Inj 02/25/2015 02/25/2015 Inactive phenazopyridine 200 mg tablet RxNorm: 5523666 1 Tablet(s) PO Q8 02/21/2015 02/20/2015 Inactive Cipro 500 mg tablet RxNorm: 618991 1 Tablet(s) PO BID 201402/20/2015 Inactive phenazopyridine 200 mg tablet RxNorm: 6007366 1 Tablet(s) PO Q8 02/21/2015 02/25/2015 Inactive Cipro 500 mg tablet RxNorm: 936301 1 Tablet(s) PO BID 201402/27/2015 Inactive lisinopril 10 mg tablet RxNorm: 193587 1 Tablet(s) PO BID 02/1406/12/2015 Inactive metoprolol succinate ER 50 mg tablet,extended release 24 hr RxNorm: 346388 3/4 Tablet(s) PO daily 02/11/2015 09/04/2015 Inactive Voltaren 1 % topical gel RxNorm: 701547 2 Gram(s) TOP QID use this on affected joints up to four times daily. 02/11/2015 03/12/2015 Inactive Probiotic oral RxNorm : 6205 oral No Start Date Active aspirin 81 mg tablet RxNorm: 552595 1 Tablet(s) PO daily No Start Date Active Super B-Complex tablet RxNorm: 1 Tablet(s) PO No Start Date Active Flonase Allergy Relief 50 mcg/actuation nasal spray, suspension RxNorm: 8584604 1 [place] NASAL BID No Start Date Active Super-D3+ oral RxNorm : oral No Start Date Active Prilosec OTC 20 mg tablet,delayed release RxNorm: 306450 2 Tablet(s) PO QAM No Start Date Active Flonase Allergy Relief 50 mcg/actuation nasal spray, suspension RxNorm: 3128430 1 [place] NASAL as needed No Start Date Active Move Free Ultra 40 mg-10 mg-3.3 mg tablet RxNorm: 1 Tablet(s) PO daily No Start Date Active metoprolol tartrate 50 mg tablet RxNorm: 700973 1 Tablet(s) PO daily No Start Date 02/10/2015 Inactive lisinopril 10 mg tablet RxNorm: 444912 1 Tablet(s) PO BID No Start Date 02/13/2015 Inactive pravastatin 80 mg tablet RxNorm: 550525 1 Tablet(s) PO daily No Start Date 08/29/2015 Inactive Synthroid 100 mcg tablet RxNorm: 090425 1 Tablet(s) PO daily No Start Date 06/09/2015 Inactive lisinopril 40 mg tablet RxNorm: 989885 1 Tablet(s) PO BID No Start Date 02/28/2018 Inactive Tylenol Arthritis 650 mg tablet,extended release RxNorm: 7184221 4 Tablet(s) PO daily No Start Date 09/09/2015 Inactive Medication Administered Medication Codes Instructions Start Date Status ceftriaxone 500 mg solution for injection RxNorm: 6079313 04/08/2018 No longer Active ceftriaxone 500 mg solution for injection RxNorm: 8924326 04/07/2018 No longer Active ceftriaxone 500 mg solution for injection RxNorm: 2828654 04/06/2018 No longer Active ceftriaxone 500 mg solution for injection RxNorm: 6496247 04/05/2018 No longer Active ketorolac 60 mg/2 mL intramuscular solution RxNorm: 4747730 Milliliter 04/05/2018 No longer Active ceftriaxone 500 mg solution for injection RxNorm: 3974713 04/04/2018 No longer Active ketorolac 30 mg/mL injection solution RxNorm: 083495 2Milliliter 04/04/2018 No longer Active Kenalog 40 mg/mL suspension for injection RxNorm: 5787279 Milliliter 12/24/2017 No longer Active Kenalog 40 mg/mL suspension for injection RxNorm: 0451160 1Milliliter 03/25/2017 No longer Active Kenalog 40 mg/mL suspension for injection RxNorm: 3487407 Milliliter 12/08/2016 No longer Active ceftriaxone 1 gram solution for injection RxNorm: 3101926 03/01/2015 No longer Active ceftriaxone 1 gram solution for injection RxNorm: 7012568 02/28/2015 No longer Active ceftriaxone 1 gram solution for injection RxNorm: 1875770 02/27/2015 No longer Active ceftriaxone 1 gram solution for injection RxNorm: 4189343 02/26/2015 No longer Active ceftriaxone 1 gram solution for injection RxNorm: 0177384 02/25/2015 No longer Active Immunizations Vaccine Codes [...] Item Item Code Result Date Free T4 Mui883 FREE T4 1.07 ng/dL 04/04/2018 Tsh Ord6 TSH (3rd IS) 1.93 uIU/mL 04/04/2018 Urine Culture Ucult Preliminary NO Growth Day 1 03/28/2018 Urine Culture Ucult Complete NO Growth Day 2 03/28/2018 Urine Culture Ucult Complete >100,000 col/ml aerobic growth sent to ref lab 11/19/2017 B12 Sxz268 B12 712.00 pg/ml 09/28/2017 C-Reactive Protein Qnt Crqnt CRP 0.1 mg/dl 09/23/2017 Comp Metabolic Dsq106 NA 139 mEq/L 09/23/2017 Comp Metabolic Unl402 K 4.8 mEq/L 09/23/2017 Comp Metabolic Gih575 CL 104 mEq/L 09/23/2017 Comp Metabolic Pir739 CO2 28.0 mEq/L 09/23/2017 Comp Metabolic Fqc222 ANION GAP 12 09/23/2017 Comp Metabolic Odt392 GLUCOSE 92 mg/dL 09/23/2017 Comp Metabolic Oqg960 Creat 0.7 mg/dL 09/23/2017 Comp Metabolic Fed851 eGFR 91 ml/min/1.73m2 09/23/2017 Comp Metabolic Vxz552 BUN 11 mg/dL 09/23/2017 Comp Metabolic Vwd396 B/C Ratio 16.4 Ratio 09/23/2017 Comp Metabolic Erg670 CALCIUM 9.0 mg/dL 09/23/2017 Comp Metabolic Lik320 ALK PHOS 76 U/L 09/23/2017 Comp Metabolic Zoy500 AST(SGOT) 24 U/L 09/23/2017 Comp Metabolic Txw434 ALT(SGPT) 21 U/L 09/23/2017 Comp Metabolic Sgu933 BILI T 0.3 mg/dL 09/23/2017 Comp Metabolic Fhl503 ALBUMIN 4.1 g/dL 09/23/2017 Comp Metabolic Htg454 TPRO 6.2 g/dL 09/23/2017 Comp Metabolic Oyv991 GLOB 2.1 g/dL 09/23/2017 Comp Metabolic Tpb378 A/G Ratio 1.9 Ratio 09/23/2017 Comp Metabolic Hjo302 Osmo 277 mOsmo 09/23/2017 Sed Rate Ord21 ESR 3 mm/hr 09/22/2017 Vitamin D 25 Oh Grp6983 VITAMIN D, 25 HYDROXY 78.79 ng/mL Tsh [...] 97.1 fl 09/22/2017 Cbc With Differential Ord2 [place]% 10.5 % 09/22/2017 Cbc With Differential Ord2 [...] 2.37 K/ul 09/22/2017 Cbc With Differential Ord2 [place] ABS# 0.9 K/ul 09/22/2017 Cbc With Differential Ord2 Eos ABS# 0.2 K/ul 09/22/2017 Cbc With Differential Ord2 Baso ABS# 0.0 K/ul 09/22/2017 Free T4 Uua758 FREE T4 0.99 ng/dL 09/22/2017 %Hba1C Itc489 % HbA1c 82234-4 6.0 % 12/10/2016 %Hba1C Jyb093 Gluc Ave 126 mg/dL 12/10/2016 Tsh Ord6 hTSH II 0.89 uIU/mL 12/09/2016 Free T4 Bsa200 FREE T4 0.99 ng/dL 12/09/2016 Comp Metabolic Fzg203 NA 138 mEq/L 12/09/2016 Comp Metabolic Zrt171 K 5.2 mEq/L 12/09/2016 Comp Metabolic Ogq527 CL 104 mEq/L 12/09/2016 Comp Metabolic Pwh660 CO2 29.0 mEq/L 12/09/2016 Comp Metabolic Cds959 ANION GAP 10 12/09/2016 Comp Metabolic Nix282 GLUCOSE 135 mg/dL 12/09/2016 Comp Metabolic Dpo551 Creat 0.8 mg/dL 12/09/2016 Comp Metabolic Bvs128 eGFR 79 ml/min/1.73m2 12/09/2016 Comp Metabolic Pbo957 BUN 18 mg/dL 12/09/2016 Comp Metabolic Ats532 B/C Ratio 23.7 Ratio 12/09/2016 Comp Metabolic Tqv489 CALCIUM 9.5 mg/dL 12/09/2016 Comp Metabolic Wuj248 ALK PHOS 73 U/L 12/09/2016 Comp Metabolic Fzy722 AST(SGOT) 24 U/L 12/09/2016 Comp Metabolic Egf487 ALT(SGPT) 20 U/L 12/09/2016 Comp Metabolic Xph594 BILI T 0.3 mg/dL 12/09/2016 Comp Metabolic Ehr609 ALBUMIN 4.3 g/dL 12/09/2016 Comp Metabolic Qpy984 TPRO 6.4 g/dL 12/09/2016 Comp Metabolic Nzn684 GLOB 2.1 g/dL 12/09/2016 Comp Metabolic Ghy238 A/G Ratio 2.0 Ratio 12/09/2016 Comp Metabolic Dej120 Osmo 280 mOsmo 12/09/2016 Cbc With Differential [...] 31.3 pg 12/09/2016 Cbc With Differential Ord2 [place]% 6.5 % 12/09/2016 Cbc With Differential Ord2 [...] 1.84 K/ul 12/09/2016 Cbc With Differential Ord2 [place] ABS# 0.6 K/ul 12/09/2016 Cbc With Differential Ord2 Eos ABS# 0.1 K/ul 12/09/2016 Cbc With Differential Ord2 Baso ABS# 0.1 K/ul 12/09/2016 Tsh Ord6 hTSH II 1.19 uIU/mL 09/02/2016 Free T4 Shd286 FREE T4 0.97 ng/dL 09/02/2016 Comp Metabolic Zty700 NA 137 mEq/L 06/01/2016 Comp Metabolic Oiz475 K 4.1 mEq/L 06/01/2016 Comp Metabolic Qlw449 CL 104 mEq/L 06/01/2016 Comp Metabolic Acq192 CO2 25.0 mEq/L 06/01/2016 Comp Metabolic Jve789 ANION GAP 12 06/01/2016 Comp Metabolic Hqw742 GLUCOSE 108 mg/dL 06/01/2016 Comp Metabolic Rdr452 Creat 0.8 mg/dL 06/01/2016 Comp Metabolic Hty375 eGFR 80 ml/min/1.73m2 06/01/2016 Comp Metabolic Nfp117 BUN 15 mg/dL 06/01/2016 Comp Metabolic Pep548 B/C Ratio 20.0 Ratio 06/01/2016 Comp Metabolic Kte338 CALCIUM 9.1 mg/dL 06/01/2016 Comp Metabolic Lsz264 ALK PHOS 89 U/L 06/01/2016 Comp Metabolic Jwy454 AST(SGOT) 25 U/L 06/01/2016 Comp Metabolic Mol564 ALT(SGPT) 20 U/L 06/01/2016 Comp Metabolic Bbi435 BILI T 0.3 mg/dL 06/01/2016 Comp Metabolic Iva768 ALBUMIN 4.2 g/dL 06/01/2016 Comp Metabolic Zhg957 TPRO 6.2 g/dL 06/01/2016 Comp Metabolic Kvu534 GLOB 2.0 g/dL 06/01/2016 Comp Metabolic Haj043 A/G Ratio 2.1 Ratio 06/01/2016 Comp Metabolic Evc691 Osmo 275 mOsmo 06/01/2016 Free T4 Cuq740 FREE T4 0.94 ng/dL 06/01/2016 Tsh Ord6 [...] 31.1 pg 06/01/2016 Cbc With Differential Ord2 [place]% 8.4 % 06/01/2016 Cbc With Differential Ord2 [...] 2.96 K/ul 06/01/2016 Cbc With Differential Ord2 [place] ABS# 0.6 K/ul 06/01/2016 Cbc With Differential [...] 31.3 pg 02/27/2016 Cbc With Differential Ord2 [place]% 10.0 % 02/27/2016 Cbc With Differential Ord2 [...] 2.28 K/ul 02/27/2016 Cbc With Differential Ord2 [place] ABS# 0.9 K/ul 02/27/2016 Cbc With Differential Ord2 Eos ABS# 0.3 K/ul 02/27/2016 Cbc With Differential Ord2 Baso ABS# 0.1 K/ul 02/27/2016 Tsh Ord6 hTSH II 0.18 uIU/mL 02/27/2016 Free T4 Pqh671 FREE T4 1.17 ng/dL 02/27/2016 Comp Metabolic Zdy311 NA 135 mEq/L 02/27/2016 Comp Metabolic Cdh552 K 5.2 mEq/L 02/27/2016 Comp Metabolic Irh340 CL 102 mEq/L 02/27/2016 Comp Metabolic Wid521 CO2 27.0 mEq/L 02/27/2016 Comp Metabolic Roz212 ANION GAP 11 02/27/2016 Comp Metabolic Dfw909 GLUCOSE 93 mg/dL 02/27/2016 Comp Metabolic Xeq003 Creat 0.7 mg/dL 02/27/2016 Comp Metabolic Chp668 eGFR 91 ml/min/1.73m2 02/27/2016 Comp Metabolic Gov452 BUN 14 mg/dL 02/27/2016 Comp Metabolic Tbn415 B/C Ratio 20.9 Ratio 02/27/2016 Comp Metabolic Cgt648 CALCIUM 9.4 mg/dL 02/27/2016 Comp Metabolic Zvw813 ALK PHOS 100 U/L 02/27/2016 Comp Metabolic Szl687 AST(SGOT) 23 U/L 02/27/2016 Comp Metabolic Slj968 ALT(SGPT) 24 U/L 02/27/2016 Comp Metabolic Mxh076 BILI T 0.2 mg/dL 02/27/2016 Comp Metabolic Fjt756 ALBUMIN 4.3 g/dL 02/27/2016 Comp Metabolic Qgu236 TPRO 6.3 g/dL 02/27/2016 Comp Metabolic Csz764 GLOB 2.1 g/dL 02/27/2016 Comp Metabolic Rgv517 A/G Ratio 2.1 Ratio 02/27/2016 Comp Metabolic Qyb176 Osmo 270 mOsmo 02/27/2016 Free T4 Yjw692 FREE T4 1.03 ng/dL 05/10/2015 Comp Metabolic Cbr916 NA 137 mEq/L 05/10/[address] K 4.4 mEq/L 05/10/2015 Comp Metabolic Iud436 CL 102 mEq/L 05/10/2015 Comp Metabolic Slr070 CO2 28.0 mEq/L 05/10/2015 Comp Metabolic Iaf775 ANION GAP 11 05/10/2015 Comp Metabolic Cto667 GLUCOSE 108 mg/dL 05/10/2015 Comp Metabolic Jny286 Creat 0.7 mg/dL 05/10/2015 Comp Metabolic Jty254 eGFR 86 ml/min/1.73m2 05/10/2015 Comp Metabolic Jfo108 BUN 13 mg/dL 05/10/2015 Comp Metabolic Yee156 B/C Ratio 18.3 Ratio 05/10/2015 Comp Metabolic Hiw315 CALCIUM 9.4 mg/dL 05/10/2015 Comp Metabolic Jci359 ALK PHOS 94 U/L 05/10/2015 Comp Metabolic Bov827 AST(SGOT) 22 U/L 05/10/2015 Comp Metabolic Xpk172 ALT(SGPT) 21 U/L 05/10/2015 Comp Metabolic Omc920 BILI T 0.3 mg/dL 05/10/2015 Comp Metabolic Tjy260 ALBUMIN 3.9 g/dL 05/10/2015 Comp Metabolic Sui685 TPRO 6.1 g/dL 05/10/2015 Comp Metabolic Flw958 GLOB 2.2 g/dL 05/10/2015 Comp Metabolic Lsy142 A/G Ratio 1.7 Ratio 05/10/2015 Comp Metabolic Lui569 Osmo 274 mOsmo 05/10/2015 Tsh Ord6 hTSH [...] 29.4 pg 05/10/2015 Cbc With Differential Ord2 [place]% 9.0 % 05/10/2015 Cbc With Differential Ord2 [...] 2.14 K/ul 05/10/2015 Cbc With Differential Ord2 [place] ABS# 0.5 K/ul 05/10/2015 Cbc With Differential [...] Ord30 C/HDL 3.8 Ratio 05/10/2015 Culture Urine [id number] URINE CULTURE SEE NOTES 02/25/2015 Culture Urine [id number] Continued Results 02/25/2015 Urine Culture Ucult Complete >100,000 col/ml aerobic growth sent to ref lab 02/22/2015 Free T4 Yon733 FREE T4 1.16 ng/dL 02/11/2015 Tsh Ord6 [...] Procedure Codes Date THER/PROPH/DIAG INJ SC/IM CPT-4: 20885 04/08/2018 ROCEPHIN, PER 250 MG CPT-4: J0696 04/08/2018 THER/PROPH/DIAG INJ SC/IM CPT-4: 25578 04/07/2018 ROCEPHIN, PER 250 MG CPT-4: J0696 04/07/2018 THER/PROPH/DIAG INJ SC/IM CPT-4: 72879 04/06/2018 ROCEPHIN, PER 250 MG CPT-4: J0696 04/06/2018 THER/PROPH/DIAG INJ SC/IM CPT-4: 25770 04/05/2018 ROCEPHIN, PER 250 MG CPT-4: J0696 04/05/2018 KETOROLAC TROMETHAMINE INJ CPT-4: J1885 04/05/2018 THER/PROPH/DIAG INJ SC/IM CPT-4: 13233 04/04/2018 ROCEPHIN, PER 250 MG CPT-4: J0696 04/04/2018 KETOROLAC TROMETHAMINE INJ CPT-4: J1885 04/04/2018 URINALYSIS NONAUTO W/O SCOPE CPT-4: 34784 03/24/2018 PPPS, SUBSEQ VISIT CPT -4: G0439 12/24/2017 THER/PROPH/DIAG INJ SC/IM CPT-4: 59644 12/24/2017 TRIAMCINOLONE ACET INJ NOS CPT-4: J3301 12/24/2017 THER/PROPH/DIAG INJ SC/IM CPT-4: 85122 11/18/2017 ROCEPHIN, PER 250 MG CPT-4: J0696 11/18/2017 PRESCRIP TRANSMIT VIA ERX SY CPT-4: G8553 04/01/2017 TRIAMCINOLONE ACET INJ NOS CPT-4: J3301 03/25/2017 PPPS, SUBSEQ VISIT CPT -4: G0439 12/23/2016 THER/PROPH/DIAG INJ SC/IM CPT-4: 09850 12/08/2016 TRIAMCINOLONE ACET INJ NOS CPT-4: J3301 12/08/2016 PRESCRIP TRANSMIT VIA ERX SY CPT-4: G8553 12/08/2016 PRESCRIP TRANSMIT VIA ERX SY CPT-4: G8553 11/30/2016 URINALYSIS NONAUTO W/O SCOPE CPT-4: 14315 07/08/2016 PRESCRIP TRANSMIT VIA ERX SY CPT-4: G8553 06/01/2016 PRESCRIP TRANSMIT VIA ERX SY CPT-4: G8553 02/27/2016 THER/PROPH/DIAG INJ SC/IM CPT-4: 23648 03/01/2015 ROCEPHIN, PER 250 MG CPT-4: J0696 03/01/2015 THER/PROPH/DIAG INJ SC/IM CPT-4: 56978 02/28/2015 ROCEPHIN, PER 250 MG CPT-4: J0696 02/28/2015 THER/PROPH/DIAG INJ SC/IM CPT-4: 70318 02/27/2015 ROCEPHIN, PER 250 MG CPT-4: J0696 02/27/2015 THER/PROPH/DIAG INJ SC/IM CPT-4: 41318 02/26/2015 ROCEPHIN, PER 250 MG CPT-4: J0696 02/26/2015 THER/PROPH/DIAG INJ SC/IM CPT-4: 48816 02/25/2015 ROCEPHIN, PER 250 MG CPT-4: J0696 02/25/2015 URINALYSIS NONAUTO W/O SCOPE CPT-4: 07895 02/21/2015 Vital Signs Date Vital 04/13/2018 Blood Pressure 1: 142/76 Code : 8480-6 Heart Rate 1: 78 bpm SpO2: 94% 04/07/2018 Blood Pressure 1: 160/80 Code : 8480-6 Heart Rate 1: 60 bpm 04/04/2018 Blood Pressure 1: 130/60 Code : 8480-6 Heart Rate 1: 78 bpm Height: Weight: 04/01/2018 Blood Pressure 1: 134/58 Code : 8480-6 BMI: 27.8 Code : 04832-5 Heart Rate 1 : 85 bpm Height: 5'3" SpO2: 96% Weight: 157 lbs 03/24/2018 Blood Pressure 1: 128/82 Code : 8480-6 BMI: 27.8 Code : 43032-5 Heart Rate 1 : 84 bpm Height: 5'3" SpO2: 97% Weight: 157 lbs 03/01/2018 Blood Pressure 1: 136/70 Code : 8480-6 BMI: 27.8 Code : 49206-6 Heart Rate 1 : 70 bpm Height: 5'3" SpO2: 96% Weight: 157 lbs 12/24/2017 Height: Weight: 11/18/2017 Blood Pressure 1: 164/74 Code : 8480-6 BMI: 27.6 Code : 08513-1 Heart Rate 1 : 70 bpm Height: 5'3" SpO2: 96% Weight: 156 lbs 11/03/2017 Blood Pressure 1: 118/72 Code : 8480-6 BMI: 27.6 Code : 04615-4 Heart Rate 1 : 82 bpm Height: 5'3" SpO2: 96% Weight: 156 lbs 09/22/2017 Blood Pressure 1: 136/68 Code : 8480-6 BMI: 27.6 Code : 93347-5 Heart Rate 1 : 70 bpm Height: 5'3" SpO2: 97% Weight: 156 lbs 04/01/2017 Blood Pressure 1: 144/82 Code : 8480-6 Heart Rate 1: 68 bpm Height: 5'3" SpO2: 97% Weight: 03/25/2017 Blood Pressure 1: 116/70 Code : 8480-6 BMI: 26.7 Code : 55570-6 Heart Rate 1 : 67 bpm Height: 5'3" SpO2: 98% Weight: 151 lbs 12/23/2016 BMI: 26.7 Code: 51197-4 Height: 5'3" Weight: 151 lbs 12/22/2016 Blood Pressure 1: 142/60 Code : 8480-6 BMI: 26.7 Code : 99483-9 Heart Rate 1 : 67 bpm Height: 5'3" SpO2: 98% Weight: 151 lbs 12/08/2016 Blood Pressure 1: 140/72 Code : 8480-6 Heart Rate 1: 72 bpm Height: 5'3" SpO2: 97% Weight: 11/30/2016 Blood Pressure 1: 128/80 Code : 8480-6 BMI: 26.7 Code : 85913-1 Heart Rate 1 : 63 bpm Height: 5'3" SpO2: 96% Weight: 151 lbs 09/28/2016 Blood Pressure 1: 130/80 Code : 8480-6 BMI: 27.1 Code : 83290-9 Heart Rate 1 : 80 bpm Height: 5'3" SpO2: 97% Weight: 153 lbs 07/06/2016 Blood Pressure 1: 162/72 Code : 8480-6 BMI: 27.6 Code : 85622-5 Heart Rate 1 : 72 bpm Height: 5'3" SpO2: 98% Weight: 156 lbs 06/01/2016 Blood Pressure 1: 122/66 Code : 8480-6 BMI: 27.5 Code : 11484-2 Heart Rate 1 : 73 bpm Height: 5'3" SpO2: 98% Weight: 155 lbs 8 oz 02/27/2016 Blood Pressure 1: 126/68 Code : 8480-6 BMI: 26.9 Code : 93647-5 Heart Rate 1 : 70 bpm Height: 5'3" SpO2: 98% Weight: 152 lbs 09/10/2015 Blood Pressure 1: 130/70 Code : 8480-6 BMI: 26.9 Code : 52373-1 Heart Rate 1 : 72 bpm Height: 5'3" SpO2: 97% Weight: 152 lbs 05/14/2015 Blood Pressure 1: 138/82 Code : 8480-6 BMI: 26.4 Code : 26378-1 Heart Rate 1 : 75 bpm Height: 5'3" SpO2: 98% Weight: 149 lbs 02/11/2015 Blood Pressure 1: 128/72 Code : 8480-6 BMI: 25.5 Code : 60275-0 Heart Rate 1 : 73 bpm Height: [...] H92.01] [facility] CPT -4: 60427 04/13/2018 ([id number]) 65809 EST. PATIENT, LEVEL III Diagnosis: Essential (primary) hypertension[ICD10: I10] Diagnosis: Dysuria[ICD10: R30.0] Diagnosis: Nausea[ICD10: R11.0] Diagnosis: Headache[ICD10: R51] Elen Cortez MD, [facility] CPT-4: 21086 04/04/2018 33572 EST. PATIENT, LEVEL III Diagnosis: Other acute sinusitis[ICD10: J01.80] Diagnosis: Dizziness and giddiness[ICD10: R42] Diagnosis: Dysuria[ICD10: R30.0] Diagnosis: Candidal stomatitis[ICD10: B37.0] Diagnosis: Essential (primary) hypertension[ICD10: I10] Diagnosis: Other fatigue[ICD10: R53.83] Diagnosis: Other malaise[ICD10: R53.81] Bridget Cortez MD, [facility] CPT-4 : 74114 04/01/2018 ([id number]) 74435 EST. 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 PATIENT, LEVEL IV Diagnosis: Otalgia, right ear[ICD10: H92.01] Diagnosis: Headache[ICD10: R51] Diagnosis: Other fatigue[ICD10: R53.83] Diagnosis: Abnormal findings on diagnostic imaging of other specified body structures[ICD10: R93.89] Elen Cortez MD, [facility] CPT-4: 72339 03/01/2018 27827 EST. PATIENT, LEVEL III Diagnosis: Acute cystitis with hematuria[ICD10: N30.01] Bridget Cortez MD, [facility] CPT-4: 66685 11/18/2017 08606 EST. PATIENT, LEVEL IV Diagnosis: Other acute sinusitis[ICD10: J01.80] Diagnosis: Otalgia, right ear[ICD10: H92.01] Bridget Cortez MD, [facility] CPT -4: 86967 11/03/2017 36327 EST. PATIENT, LEVEL III Diagnosis: Other fatigue[ICD10: R53.83] Diagnosis: Other malaise[ICD10: R53.81] Diagnosis: Pain in left knee[ICD10: M25.562] Diagnosis: Pain in right knee[ICD10: M25.561] Bridget Cortez MD, [facility] CPT-4: 17170 09/22/2017 ([id number]) 16484 EST. PATIENT, LEVEL III Diagnosis: Cough[ICD10: R05] Diagnosis: Acute bronchitis due to other specified organisms[ICD10: J20.8] Elen Cortez MD, [facility] CPT-4: 14914 04/01/2017 ([id number]) 53701 EST. PATIENT, LEVEL III Diagnosis: Otalgia, right ear[ICD10: H92.01] Diagnosis: Other allergic rhinitis[ICD10: J30.89] Shiela Cortez MD, [facility] CPT-4: 18429 03/25/2017 ([id number]) 00922 EST. PATIENT, LEVEL III Diagnosis: Benign paroxysmal vertigo, bilateral[ICD10: H81.13] Shiela Cortez MD, [facility] CPT-4: 57381 12/22/2016 ([id number]) 10285 EST. PATIENT, LEVEL IV Diagnosis: Benign paroxysmal vertigo, bilateral[ICD10: H81.13] Diagnosis: Other allergic rhinitis[ICD10: J30.89] Diagnosis: Hypothyroidism, unspecified[ICD10: E03.9] Shiela Cortez MD, [facility] CPT-4: 36933 12/08/2016 ([id number]) 15175 EST. PATIENT, LEVEL IV Diagnosis: Atrophy of thyroid (acquired)[ICD10: E03.4] Diagnosis: Essential (primary) hypertension[ICD10: I10] Diagnosis: Mixed hyperlipidemia[ICD10: E78.2] Elen Cortez MD, [facility] CPT-4: 90322 11/30/2016 44683 EST. PATIENT, LEVEL IV Diagnosis: Headache[ICD10: R51] Diagnosis: Other fatigue[ICD10: R53.83] Diagnosis: Dizziness and giddiness[ICD10: R42] Bridget Cortez MD, [facility] CPT-4: 68645 09/28/2016 43854 EST. PATIENT, LEVEL IV Diagnosis: Essential (primary) hypertension[ICD10: I10] Diagnosis: Headache[ICD10: R51] Bridget Cortez MD, [facility] CPT-4: 77902 07/06/2016 ([id number]) 69280 EST. PATIENT, LEVEL IV Diagnosis: Essential (primary) hypertension[ICD10: I10] Diagnosis: Atrophy of thyroid (acquired)[ICD10: E03.4] Diagnosis: Mixed hyperlipidemia[ICD10: E78.2] Elen Cortez MD, [facility] CPT-4: 72162 06/01/2016 29109 EST. PATIENT, LEVEL IV Diagnosis: Acute laryngopharyngitis[ICD10: J06.0] Diagnosis: Other allergic rhinitis[ICD10: J30.89] Diagnosis: Other specified hypothyroidism[ICD10: E03.8] Diagnosis: Other fatigue[ICD10: R53.83] Bridget Cortez MD, [facility] CPT-4 : 58394 02/27/2016 ([id number]) 10308 EST. PATIENT, LEVEL III Diagnosis: Essential (primary) hypertension[ICD10: I10] Diagnosis: Mixed hyperlipidemia[ICD10: E78.2] Elen Cortez MD, [facility] CPT-4: 80114 09/10/2015 ([id number]) 97751 EST. PATIENT, LEVEL IV Diagnosis: Essential (primary) hypertension[ICD10: I10] Diagnosis: Hypothyroidism, unspecified[ICD10: E03.9] Diagnosis: Unspecified osteoarthritis, unspecified site[ICD10: M19.90] Elen Cortez MD , [facility] CPT-4: 36849 05/14/2015 ([id number]) OFFICE VISIT, NEW - LEVEL 4 Diagnosis: Essential (primary) hypertension[ICD10: I10] Diagnosis: Hypothyroidism, unspecified[ICD10: E03.9] Diagnosis: Unspecified osteoarthritis, unspecified site[ICD10: M19.90] Elen Cortez MD , [facility] CPT-4: 21902 02/11/2015 Plan of Care Planned Activity Notes [...] Saini. 04/13/2018 Appointment: Bridget Velazco WPtel: [phone] [phone] (30 min) Complex 04/13/2018 Patient Education: Patient Medication Summary Completed 04/13/2018 Appointment: Nurse Visit 04/08/2018 Appointment: Bridget Velazco WPtel: [facility]5 [facility] (15 min) Moderate 04/08/2018 Patient Education: Patient Medication Summary Completed 04/08/2018 Appointment: Injection 04/07/2018 Patient Education: Patient Medication Summary Completed 04/07/2018 Appointment: Injection 04/06/2018 Patient Education: Patient Medication Summary Completed 04/06/2018 Appointment: Injection 04/05/2018 Appointment: Elen Cortez WPtel: [facility]4 [facility] (15 min) Moderate 04/05/2018 Patient Education: [...] Appointment: Elen Cortez WPtel: [facility]5 [facility] [place] (10 min) Simple 04/04/2018 Patient Education: Patient Medication Summary Completed 04/04/2018 Patient Education: Patient Medication Summary Completed 04/04/2018 Patient Education: Patient Medication Summary Completed 04/04/2018 Care Plan: Referral Order SNOMED-CT : [id number] Pending 04/04/2018 Visit Plan: Dysuria, dizziness, fatigue, [...] show improvement. 04/01/2018 Appointment: Bridget Velazco WPtel: [address] [place], [place] [phone] (15 min) Moderate 04/01/2018 Patient Education: Patient Medication Summary Completed 04/01/2018 Visit Plan: Sinusitis - Pt has acute infection - pain in face, maxillary region, Pt informed to use decongestant, RX given to patient, sinus rinses also recommended. Call if symptoms do not show improvement. Dysuria - rx for antibiotic sent to pharmacy. 03/24/2018 Appointment: Elen Cortez WPtel: [address] [place], [place] [phone] (15 min) Moderate 03/24/2018 Patient Education: Patient [...] improve. 03/01/2018 App[facility]ment[phone] (15 min) Moderate 03/01/2018 Patient [...] spray. 12/24/2017 Appointment: [phone] [facility] - Annual Wellness Visit 12/24/2017 Patient Education: Patient Medication Summary Completed 12/24/2017 Appointment: [phone] (15 min) Moderate 11/30/2017 Appointment: Lab Draw [...] 11/18/2017 Appointment: Bridget Velazco WPtel: [facility]9 [facility]66[facility] (15 min) Moderate 11/18/2017 Patient Education: Patient Medication Summary Completed 11/18/2017 Visit Plan: Sinusitis - Pt has acute infection - pain in face, maxillary region, Pt informed to use decongestant, RX given to patient, sinus rinses also recommended. Call if symptoms do not show improvement. 11/03/2017 Appointment: Bridget Velazco WPtel: [facility]0 [facility] (15 min) Moderate 11/03/2017 Patient [...] Appointment: Bridget Velazco WPtel: [facility]5 [facility]66[facility] (15 min) Moderate 09/22/2017 Patient Education: Patient Medication Summary Completed 09/22/2017 Visit Plan: Bronchitis - acute case of bronchitis identified. Pt has been given antibiotics, breathing treatments as appropriate, and pt has been instructed to call if symptoms are not improved, or if symptoms acutely worsen. 04/01/2017 Appointment: Elen Cortez WPtel: [facility]1 [facility] (15 min) Moderate 04/01/2017 Patient [...] 03/25/2017 Appointment: Shiela Srivastava WPtel: [facility]8 [phone] (10 min) Simple 03/25/2017 Appointment: Elen Cortez WPtel: [address] [place], [place] [phone] (15 min) Moderate 03/25/2017 Patient Education: [...] care surrogate. 12/23/2016 Appointment: Bridget Velazco WPtel: [address] [place], [place] [phone] [facility] - Annual Wellness Visit 12/23/2016 Patient Education: Patient Medication Summary Completed 12/23/2016 Visit Plan: Vertigo-discussed PT for vestibular exercises- patient wants to wait since symptoms are improving-continue anti histamine as directed-meclizine as needed 12/22/2016 Appointment: Shiela Srivastava WPtel: [facility]7 [phone] (30 min) Complex 12/22/2016 Patient Education: Patient [...] control. 12/08/2016 Appointment: Shiela Srivastava WPtel: [phone] [phone] (30 min) Complex 12/08/2016 Patient Education: Patient [...] medications. 11/30/2016 App[facility]ment: [phone] (15 min) Moderate 11/30/2016 Patient Education: Patient [...] concerns. 09/28/2016 Appointment: [phone] (30 min) Complex 09/28/2016 Patient Education: Patient [...] concerns. 07/06/2016 Appointment: [facility] Velazco [facility]el[phone] (15 min) Moderate 07/06/2016 Patient Education: Patient [...] improving 06/01/2016 App[facility]ment: [phone] (15 min) Moderate 06/01/2016 Patient [...] Velazco [phone] (30 min) Complex 02/27/2016 Patient Education: Patient Medication Summary Completed 02/27/2016 Patient Education: Patient Medication Summary Completed 09/27/2015 Care Plan: SCREENINGMAMMOGRAPHYDIGITAL LOINC : 81655-8 Pending 09/27/2015 Visit Plan: Hypertension - well [...] colonoscopy 09/10/2015 Appointment: [phone] [place] (15 min) Moderate 09/10/2015 Patient [...] Sanchez. 05/14/2015 Appointment: [phone] [place] (15 min) Moderate 05/14/2015 Patient Education: Patient Medication Summary Completed 05/14/2015 Patient Education: Hypertension Completed 05/14/2015 Care Plan: Referral Order SNOMED-CT : [id number] Ordered 05/14/2015 Patient Education: Patient Medication Summary Completed 03/01/2015 Appointment: Nurse Visit 02/28/2015 Patient Education: Patient Medication Summary Completed 02/28/2015 Patient Education: Patient Medication Summary Completed 02/27/2015 Appointment: Nurse Visit 02/26/2015 Patient Education: Patient Medication Summary Completed 02/26/2015 Appointment: Injection 02/25/2015 Patient Education: Patient Medication Summary Completed 02/25/2015 Patient Education: Patient Medication Summary Completed 02/21/2015 Care Plan: URINALYSIS NONAUTO W/O [facility] : 55906-7 Ordered 02/21/2015 Visit Plan: Hypertension - well [...] Appointment: Elen Cortez WPtel: [facility] [facility] 02/11/2015 Patient Education: Patient Medication Summary Completed 02/11/2015 Patient Education: Hypertension Completed 02/11/2015 Referral: Dr. Ming Kessler WPtel: Referral Appointment Requested Referral: Wan Steven Referral Appointment Requested Instructions Comment . URI - Pt advised to increase [...] control. Fatigue - will check labs . Hypertension - well controlled - continue with current medications, continue with no added salt diet. Pt has been encouraged to exercise daily. The pt has been advised to call the office if there are any acute concerns about change in blood pressure readings at home. Dysuria - with UTI - shot given today. Headache - toradol today. . Hypertension - well controlled - continue [...] following orthopedic surgeon - Dr. Sanchez. . Fatigue, Malaise - will check labs [...] [employer] paperwork for health care surrogate. . Vertigo-discussed PT for vestibular exercises-patient wants [...] based on previous levels of control. . UTI - symptoms resolved - repeat UA negative - pt is to notify clinic if symptoms return or with any questions or concerns Fatigue - pt is to notify clinic if symptoms are not improving, pt is to increase fluid intake Ear pain - ongoing - will refer to Dr. Saini. . Bronchitis - acute case of bronchitis [...] pt is to call for acute concerns. FLONASE TWICE DAILY KENALOG INJECTION TODAY . [...] in the nasal steroid allergy spray. . UTI - pt with positive urinalysis [...]
--- OUTSIDE RECORDS SUMMARY | 2018-06-01 12:49 | XMS REPORT | CCD ---
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 Role Phone PP Unavailable CCM Unavailable Summary Purpose Interface Exchange Insurance Providers Payer name Policy type / Coverage type Covered constitution party ID Effective Begin Date Effective End Date WPS Medicare Part B Medicare Part B [id number] Unknown [employer] Insurance Medicare Part B [id number] Unknown Family history Mother Diagnosis Age At [...] spouses - 02/11/[address]: 038766026 Never smoker 02/11/2015 Alcohol history Unknown occasionally drinks alcohol 02/11/2015 Allergies, Adverse Reactions, Alerts Substance Reaction Codes Entered Date Inactivated Date Status CODEINE RxNorm: 2670 02/11/2015 No Inactive Date Active allergy Unknown 12/23/2016 No Inactive Date Active ciprofloxacin rash, RxNorm: 10557 02/26/2015 No Inactive Date Active hydrocodone Unknown 02/11/2015 No Inactive Date Active PREDNISONE RxNorm: 8640 03/29/2018 No Inactive Date Active GABAPENTIN Unknown 12/23/2016 No Inactive Date Active SULFA (SULFONAMIDES) Unknown 02/11/2015 No Inactive Date Active Past Medical History Illness Codes Condition Status Onset Date Resolved Date Dysuria ICD-9: 788.1 ICD-10: R30.0 Active 02/20/2015 [...] 461.8 ICD-10: J01.80 Active 11/03/2017 Unknown Other fatigue ICD-9: 780.79 ICD-10: R53.83 Active 02/26/2016 Unknown Other malaise ICD-9: 780.79 ICD-10: R53.81 Active 09/22/2017 Unknown Acute recurrent maxillary sinusitis ICD-9: 461.0 ICD-10: J01.01 Active 03/24/2018 Unknown Unspecified mycosis ICD-9: 117.9 ICD-10: B49 Active 03/24/2018 Unknown Abnormal findings on diagnostic imaging of other specified body structures ICD-9: 793.99 ICD-10: R93.89 Active 03/01/2018 Unknown Otalgia, right ear ICD -9: 388.70 ICD-10: H92.01 Active 03/25/2017 Unknown Encounter for general adult medical examination [...] Problems Condition Codes Effective Dates Condition Status Dysuria ICD-9: 788.1 ICD-10: R30.0 02/20/2015 Active [...] ICD-9: 461.8 ICD-10: J01.80 11/03/2017 Active Other fatigue ICD-9: 780.79 ICD-10: R53.83 02/26/2016 Active Other malaise ICD-9: 780.79 ICD-10: R53.81 09/22/2017 Active Acute recurrent maxillary sinusitis ICD-9: 461.0 ICD-10: J01.01 03/24/2018 Active Unspecified mycosis ICD-9: 117.9 ICD-10: B49 03/24/2018 Active Abnormal findings on diagnostic imaging of other specified body structures ICD-9: 793.99 ICD-10: R93.89 03/01/2018 Active Otalgia, right ear ICD -9: 388.70 ICD-10: H92.01 03/25/2017 Active Encounter for general adult medical examination [...] ceftriaxone 500 mg solution for injection RxNorm: 3701238 Inj 04/08/2018 04/08/2018 Inactive ceftriaxone 500 mg solution for injection RxNorm: 8667786 Inj 04/07/2018 04/07/2018 Inactive ceftriaxone 500 mg solution for injection RxNorm: 8589545 Inj 04/06/2018 04/06/2018 Inactive ketorolac 60 mg/2 mL intramuscular solution RxNorm: 5853886 Milliliter(s) IM 04/05/2018 04/05/2018 Inactive ceftriaxone 500 mg solution for injection RxNorm: 2537101 Inj 04/05/2018 04/05/2018 Inactive ondansetron 4 mg disintegrating tablet RxNorm: 489221 1 Tablet(s) PO TID as needed nausea 04/04/2018 No Stop Date Active ketorolac 30 mg/mL injection solution RxNorm: 290410 2 Milliliter(s) Inj 04/04/2018 04/04/2018 Inactive ceftriaxone 500 mg solution for injection RxNorm: 0388611 Inj 04/04/2018 04/04/2018 Inactive doxycycline hyclate 100 mg tablet RxNorm: 7549889 1 Tablet(s) PO BID 04/01/2018 04/10/2018 Active nystatin 100,000 unit/mL oral suspension RxNorm: 553374 4 Milliliter(s) PO QID 04/01/2018 04/05/2018 Inactive prednisone 10 mg tablet RxNorm: 166860 1 Tablet(s) PO UD 6 pills on day 1 and 2 and then decrease by one pill every other day until prescription is done 03/24/2018 No Stop Date Active amoxicillin 500 mg capsule RxNorm: 556961 1 Capsule(s) PO TID 03/24/2018 04/02/2018 Inactive metoprolol succinate ER 50 mg tablet,extended release 24 hr RxNorm: 491500 Tablet (s) TAKE 1 TABLET BY MOUTH DAILY 03/21/2018 10/16/2018 Active PLEASE SEND REFILL REQUESTS ELECTRONICALLY!! Synthroid 88 mcg tablet RxNorm: 229682 TAKE 1 TABLET BY MOUTH DAILY 03/08/2018 08/04/2018 Active 03/07/2018 11:21:21 AM pravastatin 80 mg tablet RxNorm: 780241 Tablet(s) 1 Tablet(s) PO daily 03/01/2018 02/23/2019 Active Kenalog 40 mg/mL suspension for injection RxNorm: 5927677 Milliliter(s) Inj 12/24/2017 12/24/2017 Inactive cetirizine 10 mg tablet RxNorm: 1784542 TAKE 1 TABLET BY MOUTH DAILY 12/21/2017 07/18/2018 Active Generic For:*ZYRTEC 10 MG TABLET 12/21/2017 10:08:05 AM Synthroid 88 mcg tablet RxNorm: 382647 TAKE 1 TABLET BY MOUTH DAILY 12/07/2017 03/06/2018 Inactive 12/06/2017 11:46:49 AM Lipitor 80 mg tablet RxNorm: 587942 1 Tablet(s) PO daily 201702/28/2018 Inactive pravastatin 80 mg tablet RxNorm: 705047 1 Tablet(s) PO daily 11/29/2017 Inactive Lipitor 80 mg tablet RxNorm: 553252 1 Tablet(s) PO daily 201711/28/2017 Inactive lisinopril 20 mg tablet RxNorm: 926313 TAKE 1 TABLET BY MOUTH TWICE DAILY 11/23/2017 04/21/2018 Active Generic For:*PRINIVIL 20 MG TABLET 11/23/2017 11:29:44 AM Macrobid 100 mg capsule RxNorm: 315470 1 Capsule(s) PO BID 06/201711/25/2017 Inactive Macrobid 100 mg capsule RxNorm: 204234 1 Capsule(s) PO BID 06/201711/18/2017 Inactive Lomotil 2.5 mg-0.025 mg tablet RxNorm: 8110893 1 -2 Tablet(s) PO TID as needed 11/19/2017 11/25/2017 Inactive Lomotil 2.5 mg-0.025 mg tablet RxNorm: 0278583 1 -2 Tablet(s) PO TID as needed 11/19/2017 11/18/2017 Inactive Pyridium 200 mg tablet RxNorm: 8357870 1 Tablet(s) PO TID as needed 11/18/2017 11/22/2017 Inactive Augmentin 500 mg-125 mg tablet RxNorm: 856085 1 Tablet(s) PO TID 11/18/2017 11/27/2017 Inactive Keflex 500 mg capsule RxNorm: 400701 1 Capsule(s) PO TID 201711/09/2017 Inactive Denavir 1 % topical cream RxNorm: 421665 1 TOP TID as needed cold sores 11/01/2017 01/29/2018 Inactive Denavir 1 % topical cream RxNorm: 310267 1 TOP TID as needed cold sores 11/01/2017 10/31/2017 Inactive Synthroid 88 mcg tablet RxNorm: 973714 TAKE 1 TABLET BY MOUTH DAILY 09/29/2017 11/27/2017 Inactive 09/29/2017 12:58:07 PM pravastatin 80 mg tablet RxNorm: 946997 1 Tablet(s) PO daily 08/30/2017 Inactive pravastatin 80 mg tablet RxNorm: 998667 1 Tablet(s) PO daily 11/28/2017 Inactive Synthroid 88 mcg tablet RxNorm: 780680 TAKE 1 TABLET BY MOUTH DAILY 08/30/2017 09/28/2017 Inactive 08/30/2017 10:53:26 AM metoprolol succinate ER 50 mg tablet,extended release 24 hr RxNorm: 765168 Tablet (s) TAKE 1 TABLET BY MOUTH DAILY 08/17/2017 03/14/2018 Inactive PLEASE SEND REFILL REQUESTS ELECTRONICALLY!! lisinopril 20 mg tablet RxNorm: 064142 TAKE 1 TABLET BY MOUTH TWICE DAILY 06/18/2017 11/14/2017 Inactive Generic For:*PRINIVIL 20 MG TABLET 06/18/2017 1:31: 00 PM Synthroid 88 mcg tablet RxNorm: 926843 TAKE 1 TABLET BY MOUTH DAILY 05/24/2017 08/21/2017 Inactive 05/24/2017 2:13:21 PM cetirizine 10 mg tablet RxNorm: 0406201 1 Tablet(s) PO daily 12/12/2017 Inactive Zithromax Z-Russell 250 mg capsule RxNorm: 304196 1 Capsule(s) PO 04/02/2017 04/05/2017 Inactive Zithromax Z-Russell 250 mg tablet RxNorm: 927165 1 Tablet(s) PO 04/01/2017 Inactive Zithromax Z-Russell 250 mg capsule RxNorm: 398542 1 Capsule(s) PO 04/02/2017 04/01/2017 Inactive Zithromax Z-Russell 250 mg tablet RxNorm: 133084 1 Tablet(s) PO 04/06/2017 Inactive Ventolin HFA 90 mcg/actuation aerosol inhaler RxNorm: 384857 2 INH QID as needed - for the first 3 days inhale at least two puffs three times daily, then use as needed for shortness of breath 04/01/2017 04/30/2017 Inactive Keflex 500 mg capsule RxNorm: 864622 1 Capsule(s) PO TID 201604/01/2017 Inactive meclizine 25 mg tablet RxNorm: 256651 1 Tablet(s) PO Q6 PRN 1 Tablet(s) PO Q6 PRN 03/25/2017 No Stop Date Active dizziness meclizine 25 mg tablet RxNorm: 353748 Tablet(s) 1 Tablet(s) PO Q6 PRN 03/25/2017 03/24/2017 Inactive dizziness Kenalog 40 mg/mL suspension for injection RxNorm: 1379145 1 Milliliter(s) Inj 03/25/2017 03/25/2017 Inactive meclizine 25 mg tablet RxNorm: 221958 1 Tablet(s) PO Q6 PRN 03/24/2017 Inactive dizziness lisinopril 20 mg tablet RxNorm: 299857 1 Tablet(s) PO BID 01/1506/13/2017 Inactive metoprolol succinate ER 50 mg tablet,extended release 24 hr RxNorm: 649193 TAKE 1 TABLET BY MOUTH DAILY 01/07/20172017 Inactive Generic For:TOPROL XL 50MG TAB 01/07/2017 12:38:23 PM Synthroid 88 mcg tablet RxNorm: 131050 TAKE 1 TABLET BY MOUTH DAILY 12/25/2016 05/23/2017 Inactive 12/25/2016 9:47:08 AM Zithromax Z-Russell 250 mg tablet RxNorm: 867570 Tablet(s) PO UD 03/24/2017 Inactive meclizine 25 mg tablet RxNorm: 567090 1 Tablet(s) PO Q6 PRN 12/20/2016 Inactive dizziness Kenalog 40 mg/mL suspension for injection RxNorm: 3566956 Milliliter(s) Inj 12/08/2016 12/08/2016 Inactive meloxicam 15 mg tablet RxNorm: 444295 1 Tablet(s) PO daily 12/20/2016 Inactive cetirizine 10 mg tablet RxNorm: 5684427 1 Tablet(s) PO daily 05/16/2017 Inactive pravastatin 40 mg tablet RxNorm: 783707 1 Tablet(s) PO BID 07/201608/30/2017 Inactive Cancel 80 mg tab lisinopril 20 mg tablet RxNorm: 661564 1 Tablet(s) PO BID 08/1212/22/2016 Inactive Synthroid 88 mcg tablet RxNorm: 630700 1 Tablet(s) PO TAKE ONE (1) TABLET BY MOUTH DAILY 07/28/2016 12/24/2016 Inactive decrease dose hydralazine 25 mg tablet RxNorm: 153737 1 Tablet(s) PO TID as needed for Systolic blood pressure over 170 07/06/20162016 Inactive lisinopril 20 mg tablet RxNorm: 417085 1 Tablet(s) PO BID to replace your other lisinopril dose 07/06/2016 08/04/2016 Inactive lisinopril 10 mg tablet RxNorm: 470946 TAKE ONE TABLET BY MOUTH TWICE DAILY 06/10/2016 08/11/2016 Inactive Generic For:ZESTRIL 10 MG TABLET 06/09/2016 12:58: 50 PM triamcinolone acetonide 0.1 % topical cream RxNorm: 6782339 1 Application TOP TID as needed 06/01/2016 No Stop Date Active nystatin 100,000 unit/gram topical cream RxNorm: 930380 1 Gram(s) TOP TID as needed 06/01/2016 No Stop Date Active metoprolol succinate ER 50 mg tablet,extended release 24 hr RxNorm: 389444 1 Tablet(s) PO daily 05/26/2016 12/21/2016 Inactive cetirizine 10 mg tablet RxNorm: 2479723 1 Tablet(s) PO daily 10/18/2016 Inactive Synthroid 88 mcg tablet RxNorm: 366563 1 Tablet(s) PO TAKE ONE (1) TABLET BY MOUTH DAILY 03/06/2016 03/07/2018 Inactive Brand name only! Synthroid 88 mcg tablet RxNorm: 662342 1 Tablet(s) PO TAKE ONE (1) TABLET BY MOUTH DAILY 03/04/2016 03/05/2016 Inactive decrease dose cetirizine 10 mg tablet RxNorm: 2590339 1 Tablet(s) PO daily 03/22/2016 Inactive amoxicillin 500 mg capsule RxNorm: 562610 1 Capsule(s) PO TID 02/27/2016 03/04/2016 Inactive lisinopril 10 mg tablet RxNorm: 953654 TAKE ONE TABLET BY MOUTH TWICE DAILY 02/06/2016 06/04/2016 Inactive Generic For:ZESTRIL 10 MG TABLET 02/06/2016 12:16: 38 PM Synthroid 100 mcg tablet RxNorm: 644837 TAKE ONE (1) TABLET BY MOUTH DAILY 01/03/2016 03/03/2016 Inactive 01/03/2016 10:35:14 AM N O T I C E Last quantity doesn't match original quantity lisinopril 10 mg tablet RxNorm: 435194 1 Tablet(s) PO BID 10/0301/31/2016 Inactive Synthroid 100 mcg tablet RxNorm: 388342 1 Tablet(s) PO daily 01/02/2016 Inactive metoprolol succinate ER 50 mg tablet,extended release 24 hr RxNorm: 484460 1 Tablet(s) PO daily 10/04/2015 04/30/2016 Inactive Tylenol Arthritis 650 mg tablet,extended release RxNorm: 7718058 2 Tablet(s) PO TID 09/10/2015 No Stop Date Active metoprolol succinate ER 50 mg tablet,extended release 24 hr RxNorm: 135023 1 Tablet(s) PO daily 09/05/2015 10/03/2015 Inactive pravastatin 80 mg tablet RxNorm: 852803 1 Tablet(s) PO QHS 08/30/2015 Inactive pravastatin 40 mg tablet RxNorm: 243319 1 Tablet(s) PO BID 08/29/2015 Inactive Cancel 80 mg tab pravastatin 40 mg tablet RxNorm: 879905 1 Tablet(s) PO BID 08/19/2016 Inactive Cancel 80 mg tab lisinopril 10 mg tablet RxNorm: 488907 1 Tablet(s) PO BID 06/1308/11/2016 Inactive lisinopril 10 mg tablet RxNorm: 005566 1 Tablet(s) PO BID 06/1310/03/2015 Inactive Synthroid 100 mcg tablet RxNorm: 049013 1 Tablet(s) PO daily 10/03/2015 Inactive ceftriaxone 1 gram solution for injection RxNorm: 6946535 Inj 03/01/2015 03/01/2015 Inactive ceftriaxone 1 gram solution for injection RxNorm: 9912533 Inj 02/28/2015 02/28/2015 Inactive ceftriaxone 1 gram solution for injection RxNorm: 6706471 Inj 02/27/2015 02/27/2015 Inactive ceftriaxone 1 gram solution for injection RxNorm: 1147430 Inj 02/26/2015 02/26/2015 Inactive ceftriaxone 1 gram solution for injection RxNorm: 1023417 Inj 02/25/2015 02/25/2015 Inactive phenazopyridine 200 mg tablet RxNorm: 7174740 1 Tablet(s) PO Q8 02/21/2015 02/20/2015 Inactive Cipro 500 mg tablet RxNorm: 403443 1 Tablet(s) PO BID 201402/20/2015 Inactive phenazopyridine 200 mg tablet RxNorm: 0512806 1 Tablet(s) PO Q8 02/21/2015 02/25/2015 Inactive Cipro 500 mg tablet RxNorm: 165305 1 Tablet(s) PO BID 201402/27/2015 Inactive lisinopril 10 mg tablet RxNorm: 120168 1 Tablet(s) PO BID 02/1406/12/2015 Inactive metoprolol succinate ER 50 mg tablet,extended release 24 hr RxNorm: 468937 3/4 Tablet(s) PO daily 02/11/2015 09/04/2015 Inactive Voltaren 1 % topical gel RxNorm: 718690 2 Gram(s) TOP QID use this on affected joints up to four times daily. 02/11/2015 03/12/2015 Inactive Probiotic oral RxNorm : 6205 oral No Start Date Active aspirin 81 mg tablet RxNorm: 755208 1 Tablet(s) PO daily No Start Date Active Super B-Complex tablet RxNorm: 1 Tablet(s) PO No Start Date Active Flonase Allergy Relief 50 mcg/actuation nasal spray, suspension RxNorm: 1384040 1 [place] NASAL BID No Start Date Active Super-D3+ oral RxNorm : oral No Start Date Active Prilosec OTC 20 mg tablet,delayed release RxNorm: 350296 2 Tablet(s) PO QAM No Start Date Active Flonase Allergy Relief 50 mcg/actuation nasal spray, suspension RxNorm: 6063684 1 [place] NASAL as needed No Start Date Active Move Free Ultra 40 mg-10 mg-3.3 mg tablet RxNorm: 1 Tablet(s) PO daily No Start Date Active metoprolol tartrate 50 mg tablet RxNorm: 116444 1 Tablet(s) PO daily No Start Date 02/10/2015 Inactive lisinopril 10 mg tablet RxNorm: 144303 1 Tablet(s) PO BID No Start Date 02/13/2015 Inactive pravastatin 80 mg tablet RxNorm: 839401 1 Tablet(s) PO daily No Start Date 08/29/2015 Inactive Synthroid 100 mcg tablet RxNorm: 256455 1 Tablet(s) PO daily No Start Date 06/09/2015 Inactive lisinopril 40 mg tablet RxNorm: 224500 1 Tablet(s) PO BID No Start Date 02/28/2018 Inactive Tylenol Arthritis 650 mg tablet,extended release RxNorm: 1754156 4 Tablet(s) PO daily No Start Date 09/09/2015 Inactive Medication Administered Medication Codes Instructions Start Date Status ceftriaxone 500 mg solution for injection RxNorm: 6462340 04/08/2018 Active ceftriaxone 500 mg solution for injection RxNorm: 7077811 04/07/2018 No longer Active ceftriaxone 500 mg solution for injection RxNorm: 9292369 04/06/2018 No longer Active ceftriaxone 500 mg solution for injection RxNorm: 7848023 04/05/2018 No longer Active ketorolac 60 mg/2 mL intramuscular solution RxNorm: 4085577 Milliliter 04/05/2018 No longer Active ceftriaxone 500 mg solution for injection RxNorm: 9083927 04/04/2018 No longer Active ketorolac 30 mg/mL injection solution RxNorm: 864332 2Milliliter 04/04/2018 No longer Active Kenalog 40 mg/mL suspension for injection RxNorm: 3384459 Milliliter 12/24/2017 No longer Active Kenalog 40 mg/mL suspension for injection RxNorm: 5494351 1Milliliter 03/25/2017 No longer Active Kenalog 40 mg/mL suspension for injection RxNorm: 7428982 Milliliter 12/08/2016 No longer Active ceftriaxone 1 gram solution for injection RxNorm: 5771354 03/01/2015 No longer Active ceftriaxone 1 gram solution for injection RxNorm: 2703992 02/28/2015 No longer Active ceftriaxone 1 gram solution for injection RxNorm: 3024926 02/27/2015 No longer Active ceftriaxone 1 gram solution for injection RxNorm: 8013155 02/26/2015 No longer Active ceftriaxone 1 gram solution for injection RxNorm: 6328994 02/25/2015 No longer Active Immunizations Vaccine Codes Date Status Influenza CVX: 141 01/18/2018 completed Influenza CVX: 141 03/15/2017 completed Influenza CVX: 141 03/18/2016 completed Influenza CVX: 141 02/11/2015 completed Assessments Condition Codes Effective Dates Dysuria ICD-10: R30.0 ICD-9: 788.1 04/08/2018 Headache ICD-10: R51 ICD-9: 784.0 04/05/2018 Essential (primary) hypertension ICD-10: I10 ICD-9: 401.1 04/04/2018 Nausea ICD-10: R11.0 ICD-9: 787.02 04/04/2018 Hypothyroidism, unspecified ICD-10: E03.9 ICD-9: 244.9 04/04/2018 Dizziness and giddiness ICD-10: R42 ICD-9: 780.4 04/01/2018 Candidal stomatitis ICD-10: B37.0 ICD-9: 112.0 04/01/2018 Other acute sinusitis ICD-10: J01.80 ICD-9: 461.8 04/01/2018 Other fatigue ICD-10: R53.83 ICD-9: 780.79 04/01/2018 Other malaise ICD-10: R53.81 ICD-9: 780.79 04/01/2018 Unspecified mycosis ICD-10: B49 ICD-9: 117.9 03/24/2018 Acute recurrent maxillary sinusitis ICD-10: J01.01 ICD-9: 461.0 03/24/2018 Otalgia, right ear ICD-10: H92.01 ICD-9: 388.70 03/01/2018 Abnormal findings on diagnostic imaging of other [...] Reason For Visit Effective Dates Notes fatigue 04/04/2018 urinary urgency 04/01/2018 dysuria 03/24/2018 headache 03/01/2018 Annual Medicare Wellness Exam 12/24/2017 urinary retention/hesitancy 11/18/2017 earache 11/03/2017 fatigue 09/22/2017 vertigo 04/01/2017 earache 03/25/2017 Annual Medicare Wellness Exam 12/23/2016 vertigo 12/22/2016 headache 12/08/2016 hypertension 11/30/2016 headache 09/28/2016 hypertension 07/06/2016 hypertension 06/01/2016 fatigue 02/27/2016 hypertension 09/10/2015 hypertension 05/14/2015 hypertension 02/11/2015 Results Observation Observation Code Item Item Code Result Date Free T4 Kpo978 FREE T4 1.07 ng/dL 04/04/2018 Tsh Ord6 TSH (3rd IS) 1.93 uIU/mL 04/04/2018 Urine Culture Ucult Preliminary NO Growth Day 1 03/28/2018 Urine Culture Ucult Complete NO Growth Day 2 03/28/2018 Urine Culture Ucult Complete >100,000 col/ml aerobic growth sent to ref lab 11/19/2017 B12 Vuo436 B12 712.00 pg/ml 09/28/2017 C-Reactive Protein Qnt Crqnt CRP 0.1 mg/dl 09/23/2017 Comp Metabolic Ylt000 NA 139 mEq/L 09/23/2017 Comp Metabolic Vnz834 K 4.8 mEq/L 09/23/2017 Comp Metabolic Ukv167 CL 104 mEq/L 09/23/2017 Comp Metabolic Zyz976 CO2 28.0 mEq/L 09/23/2017 Comp Metabolic Frc613 ANION GAP 12 09/23/2017 Comp Metabolic Yns135 GLUCOSE 92 mg/dL 09/23/2017 Comp Metabolic Jte116 Creat 0.7 mg/dL 09/23/2017 Comp Metabolic Sfa492 eGFR 91 ml/min/1.73m2 09/23/2017 Comp Metabolic Hnq017 BUN 11 mg/dL 09/23/2017 Comp Metabolic Gvq894 B/C Ratio 16.4 Ratio 09/23/2017 Comp Metabolic Ehg691 CALCIUM 9.0 mg/dL 09/23/2017 Comp Metabolic Vfh021 ALK PHOS 76 U/L 09/23/2017 Comp Metabolic Ooi241 AST(SGOT) 24 U/L 09/23/2017 Comp Metabolic Vdr161 ALT(SGPT) 21 U/L 09/23/2017 Comp Metabolic Lop270 BILI T 0.3 mg/dL 09/23/2017 Comp Metabolic Vux944 ALBUMIN 4.1 g/dL 09/23/2017 Comp Metabolic Bhv824 TPRO 6.2 g/dL 09/23/2017 Comp Metabolic Vxj856 GLOB 2.1 g/dL 09/23/2017 Comp Metabolic Oig095 A/G Ratio 1.9 Ratio 09/23/2017 Comp Metabolic Qnv714 Osmo 277 mOsmo 09/23/2017 Sed Rate Ord21 ESR 3 mm/hr 09/22/2017 Vitamin D 25 Oh Lwz1156 VITAMIN D, 25 HYDROXY 78.79 ng/mL Tsh [...] 97.1 fl 09/22/2017 Cbc With Differential Ord2 [place]% 10.5 % 09/22/2017 Cbc With Differential Ord2 [...] 2.37 K/ul 09/22/2017 Cbc With Differential Ord2 [place] ABS# 0.9 K/ul 09/22/2017 Cbc With Differential Ord2 Eos ABS# 0.2 K/ul 09/22/2017 Cbc With Differential Ord2 Baso ABS# 0.0 K/ul 09/22/2017 Free T4 Ssy647 FREE T4 0.99 ng/dL 09/22/2017 %Hba1C Vwv722 % HbA1c 47198-9 6.0 % 12/10/2016 %Hba1C Oxc495 Gluc Ave 126 mg/dL 12/10/2016 Tsh Ord6 hTSH II 0.89 uIU/mL 12/09/2016 Free T4 Zba540 FREE T4 0.99 ng/dL 12/09/2016 Comp Metabolic Ktf618 NA 138 mEq/L 12/09/2016 Comp Metabolic Crl834 K 5.2 mEq/L 12/09/2016 Comp Metabolic Ivm451 CL 104 mEq/L 12/09/2016 Comp Metabolic Exq035 CO2 29.0 mEq/L 12/09/2016 Comp Metabolic Ezx580 ANION GAP 10 12/09/2016 Comp Metabolic Enc061 GLUCOSE 135 mg/dL 12/09/2016 Comp Metabolic Mha017 Creat 0.8 mg/dL 12/09/2016 Comp Metabolic Pav195 eGFR 79 ml/min/1.73m2 12/09/2016 Comp Metabolic Ixc765 BUN 18 mg/dL 12/09/2016 Comp Metabolic Qyv512 B/C Ratio 23.7 Ratio 12/09/2016 Comp Metabolic Pfj058 CALCIUM 9.5 mg/dL 12/09/2016 Comp Metabolic Stu188 ALK PHOS 73 U/L 12/09/2016 Comp Metabolic Jfd083 AST(SGOT) 24 U/L 12/09/2016 Comp Metabolic Pqv563 ALT(SGPT) 20 U/L 12/09/2016 Comp Metabolic Wgq255 BILI T 0.3 mg/dL 12/09/2016 Comp Metabolic Tpt858 ALBUMIN 4.3 g/dL 12/09/2016 Comp Metabolic Lno871 TPRO 6.4 g/dL 12/09/2016 Comp Metabolic Yya271 GLOB 2.1 g/dL 12/09/2016 Comp Metabolic Utd764 A/G Ratio 2.0 Ratio 12/09/2016 Comp Metabolic Twn178 Osmo 280 mOsmo 12/09/2016 Cbc With Differential [...] 31.3 pg 12/09/2016 Cbc With Differential Ord2 [place]% 6.5 % 12/09/2016 Cbc With Differential Ord2 [...] 1.84 K/ul 12/09/2016 Cbc With Differential Ord2 [place] ABS# 0.6 K/ul 12/09/2016 Cbc With Differential Ord2 Eos ABS# 0.1 K/ul 12/09/2016 Cbc With Differential Ord2 Baso ABS# 0.1 K/ul 12/09/2016 Tsh Ord6 hTSH II 1.19 uIU/mL 09/02/2016 Free T4 Kxn547 FREE T4 0.97 ng/dL 09/02/2016 Comp Metabolic Xnh127 NA 137 mEq/L 06/01/2016 Comp Metabolic Gwn303 K 4.1 mEq/L 06/01/2016 Comp Metabolic Rni508 CL 104 mEq/L 06/01/2016 Comp Metabolic Uoa543 CO2 25.0 mEq/L 06/01/2016 Comp Metabolic Szb998 ANION GAP 12 06/01/2016 Comp Metabolic Azu785 GLUCOSE 108 mg/dL 06/01/2016 Comp Metabolic Hrr309 Creat 0.8 mg/dL 06/01/2016 Comp Metabolic Soi343 eGFR 80 ml/min/1.73m2 06/01/2016 Comp Metabolic Swi531 BUN 15 mg/dL 06/01/2016 Comp Metabolic Xrd753 B/C Ratio 20.0 Ratio 06/01/2016 Comp Metabolic Uaf495 CALCIUM 9.1 mg/dL 06/01/2016 Comp Metabolic Zuh198 ALK PHOS 89 U/L 06/01/2016 Comp Metabolic Rnq907 AST(SGOT) 25 U/L 06/01/2016 Comp Metabolic Bah882 ALT(SGPT) 20 U/L 06/01/2016 Comp Metabolic Trw270 BILI T 0.3 mg/dL 06/01/2016 Comp Metabolic Sta751 ALBUMIN 4.2 g/dL 06/01/2016 Comp Metabolic Usm218 TPRO 6.2 g/dL 06/01/2016 Comp Metabolic Zfz709 GLOB 2.0 g/dL 06/01/2016 Comp Metabolic Dmg946 A/G Ratio 2.1 Ratio 06/01/2016 Comp Metabolic Qxp130 Osmo 275 mOsmo 06/01/2016 Free T4 Svj438 FREE T4 0.94 ng/dL 06/01/2016 Tsh Ord6 [...] 31.1 pg 06/01/2016 Cbc With Differential Ord2 [place]% 8.4 % 06/01/2016 Cbc With Differential Ord2 [...] 2.96 K/ul 06/01/2016 Cbc With Differential Ord2 [place] ABS# 0.6 K/ul 06/01/2016 Cbc With Differential [...] 31.3 pg 02/27/2016 Cbc With Differential Ord2 [place]% 10.0 % 02/27/2016 Cbc With Differential Ord2 [...] 2.28 K/ul 02/27/2016 Cbc With Differential Ord2 [place] ABS# 0.9 K/ul 02/27/2016 Cbc With Differential Ord2 Eos ABS# 0.3 K/ul 02/27/2016 Cbc With Differential Ord2 Baso ABS# 0.1 K/ul 02/27/2016 Tsh Ord6 hTSH II 0.18 uIU/mL 02/27/2016 Free T4 Etg683 FREE T4 1.17 ng/dL 02/27/2016 Comp Metabolic Tkp440 NA 135 mEq/L 02/27/2016 Comp Metabolic Wvo883 K 5.2 mEq/L 02/27/2016 Comp Metabolic Cyl400 CL 102 mEq/L 02/27/2016 Comp Metabolic Qxh094 CO2 27.0 mEq/L 02/27/2016 Comp Metabolic Gzj560 ANION GAP 11 02/27/2016 Comp Metabolic Pte605 GLUCOSE 93 mg/dL 02/27/2016 Comp Metabolic Lrm442 Creat 0.7 mg/dL 02/27/2016 Comp Metabolic Zfy305 eGFR 91 ml/min/1.73m2 02/27/2016 Comp Metabolic Xuu229 BUN 14 mg/dL 02/27/2016 Comp Metabolic Vqh000 B/C Ratio 20.9 Ratio 02/27/2016 Comp Metabolic Xlo716 CALCIUM 9.4 mg/dL 02/27/2016 Comp Metabolic Mnu892 ALK PHOS 100 U/L 02/27/2016 Comp Metabolic Kgy353 AST(SGOT) 23 U/L 02/27/2016 Comp Metabolic Nwf233 ALT(SGPT) 24 U/L 02/27/2016 Comp Metabolic Rdc054 BILI T 0.2 mg/dL 02/27/2016 Comp Metabolic Jgu241 ALBUMIN 4.3 g/dL 02/27/2016 Comp Metabolic Jbd768 TPRO 6.3 g/dL 02/27/2016 Comp Metabolic Bjz229 GLOB 2.1 g/dL 02/27/2016 Comp Metabolic Naw638 A/G Ratio 2.1 Ratio 02/27/2016 Comp Metabolic Ykd218 Osmo 270 mOsmo 02/27/2016 Free T4 Prq584 FREE T4 1.03 ng/dL 05/10/2015 Comp Metabolic Rny693 NA 137 mEq/L 05/10/2015 Comp Metabolic Aab882 K 4.4 mEq/L 05/10/2015 Comp Metabolic Swe977 CL 102 mEq/L 05/10/2015 Comp Metabolic Qxm719 CO2 28.0 mEq/L 05/10/2015 Comp Metabolic Zib010 ANION GAP 11 05/10/2015 Comp Metabolic Aay590 GLUCOSE 108 mg/dL 05/10/2015 Comp Metabolic Gds023 Creat 0.7 mg/dL 05/10/2015 Comp Metabolic Mam204 eGFR 86 ml/min/1.73m2 05/10/2015 Comp Metabolic Brg392 BUN 13 mg/dL 05/10/2015 Comp Metabolic Xhh451 B/C Ratio 18.3 Ratio 05/10/2015 Comp Metabolic Ivs728 CALCIUM 9.4 mg/dL 05/10/2015 Comp Metabolic Nop712 ALK PHOS 94 U/L 05/10/2015 Comp Metabolic Rpz987 AST(SGOT) 22 U/L 05/10/2015 Comp Metabolic Gbj221 ALT(SGPT) 21 U/L 05/10/2015 Comp Metabolic Zog831 BILI T 0.3 mg/dL 05/10/2015 Comp Metabolic Mfs953 ALBUMIN 3.9 g/dL 05/10/2015 Comp Metabolic Vwu880 TPRO 6.1 g/dL 05/10/2015 Comp Metabolic Djy459 GLOB 2.2 g/dL 05/10/2015 Comp Metabolic Ixw682 A/G Ratio 1.7 Ratio 05/10/2015 Comp Metabolic Spt636 Osmo 274 mOsmo 05/10/2015 Tsh Ord6 hTSH [...] 29.4 pg 05/10/2015 Cbc With Differential Ord2 [place]% 9.0 % 05/10/2015 Cbc With Differential Ord2 [...] 2.14 K/ul 05/10/2015 Cbc With Differential Ord2 [place] ABS# 0.5 K/ul 05/10/2015 Cbc With Differential [...] Ord30 C/HDL 3.8 Ratio 05/10/2015 Culture Urine [id number] URINE CULTURE SEE NOTES 02/25/2015 Culture Urine [id number] Continued Results 02/25/2015 Urine Culture Ucult Complete >100,000 col/ml aerobic growth sent to ref lab 02/22/2015 Free T4 Edk622 FREE T4 1.16 ng/dL 02/11/2015 Tsh Ord6 [...] Procedure Codes Date THER/PROPH/DIAG INJ SC/IM CPT-4: 84531 04/08/2018 ROCEPHIN, PER 250 MG CPT-4: J0696 04/08/2018 THER/PROPH/DIAG INJ SC/IM CPT-4: 44999 04/07/2018 ROCEPHIN, PER 250 MG CPT-4: J0696 04/07/2018 THER/PROPH/DIAG INJ SC/IM CPT-4: 92595 04/06/2018 ROCEPHIN, PER 250 MG CPT-4: J0696 04/06/2018 THER/PROPH/DIAG INJ SC/IM CPT-4: 34246 04/05/2018 ROCEPHIN, PER 250 MG CPT-4: J0696 04/05/2018 KETOROLAC TROMETHAMINE INJ CPT-4: J1885 04/05/2018 THER/PROPH/DIAG INJ SC/IM CPT-4: 48752 04/04/2018 ROCEPHIN, PER 250 MG CPT-4: J0696 04/04/2018 KETOROLAC TROMETHAMINE INJ CPT-4: J1885 04/04/2018 URINALYSIS NONAUTO W/O SCOPE CPT-4: 68717 03/24/2018 PPPS, SUBSEQ VISIT CPT -4: G0439 12/24/2017 THER/PROPH/DIAG INJ SC/IM CPT-4: 75622 12/24/2017 TRIAMCINOLONE ACET INJ NOS CPT-4: J3301 12/24/2017 THER/PROPH/DIAG INJ SC/IM CPT-4: 37240 11/18/2017 ROCEPHIN, PER 250 MG CPT-4: J0696 11/18/2017 PRESCRIP TRANSMIT VIA ERX SY CPT-4: G8553 04/01/2017 TRIAMCINOLONE ACET INJ NOS CPT-4: J3301 03/25/2017 PPPS, SUBSEQ VISIT CPT -4: G0439 12/23/2016 THER/PROPH/DIAG INJ SC/IM CPT-4: 85559 12/08/2016 TRIAMCINOLONE ACET INJ NOS CPT-4: J3301 12/08/2016 PRESCRIP TRANSMIT VIA ERX SY CPT-4: G8553 12/08/2016 PRESCRIP TRANSMIT VIA ERX SY CPT-4: G8553 11/30/2016 URINALYSIS NONAUTO W/O SCOPE CPT-4: 06906 07/08/2016 PRESCRIP TRANSMIT VIA ERX SY CPT-4: G8553 06/01/2016 PRESCRIP TRANSMIT VIA ERX SY CPT-4: G8553 02/27/2016 THER/PROPH/DIAG INJ SC/IM CPT-4: 97018 03/01/2015 ROCEPHIN, PER 250 MG CPT-4: J0696 03/01/2015 THER/PROPH/DIAG INJ SC/IM CPT-4: 86437 02/28/2015 ROCEPHIN, PER 250 MG CPT-4: J0696 02/28/2015 THER/PROPH/DIAG INJ SC/IM CPT-4: 55258 02/27/2015 ROCEPHIN, PER 250 MG CPT-4: J0696 02/27/2015 THER/PROPH/DIAG INJ SC/IM CPT-4: 88420 02/26/2015 ROCEPHIN, PER 250 MG CPT-4: J0696 02/26/2015 THER/PROPH/DIAG INJ SC/IM CPT-4: 38437 02/25/2015 ROCEPHIN, PER 250 MG CPT-4: J0696 02/25/2015 URINALYSIS NONAUTO W/O SCOPE CPT-4: 58001 02/21/2015 Vital Signs Date Vital 04/07/2018 Blood Pressure 1: 160/80 Code : 8480-6 Heart Rate 1: 60 bpm 04/04/2018 Blood Pressure 1: 130/60 Code : 8480-6 Heart Rate 1: 78 bpm Height: Weight: 04/01/2018 Blood Pressure 1: 134/58 Code : 8480-6 BMI: 27.8 Code : 08617-2 Heart Rate 1 : 85 bpm Height: 5'3" SpO2: 96% Weight: 157 lbs 03/24/2018 Blood Pressure 1: 128/82 Code : 8480-6 BMI: 27.8 Code : 38526-6 Heart Rate 1 : 84 bpm Height: 5'3" SpO2: 97% Weight: 157 lbs 03/01/2018 Blood Pressure 1: 136/70 Code : 8480-6 BMI: 27.8 Code : 61587-0 Heart Rate 1 : 70 bpm Height: 5'3" SpO2: 96% Weight: 157 lbs 12/24/2017 Height: Weight: 11/18/2017 Blood Pressure 1: 164/74 Code : 8480-6 BMI: 27.6 Code : 90160-1 Heart Rate 1 : 70 bpm Height: 5'3" SpO2: 96% Weight: 156 lbs 11/03/2017 Blood Pressure 1: 118/72 Code : 8480-6 BMI: 27.6 Code : 37697-0 Heart Rate 1 : 82 bpm Height: 5'3" SpO2: 96% Weight: 156 lbs 09/22/2017 Blood Pressure 1: 136/68 Code : 8480-6 BMI: 27.6 Code : 11727-2 Heart Rate 1 : 70 bpm Height: 5'3" SpO2: 97% Weight: 156 lbs 04/01/2017 Blood Pressure 1: 144/82 Code : 8480-6 Heart Rate 1: 68 bpm Height: 5'3" SpO2: 97% Weight: 03/25/2017 Blood Pressure 1: 116/70 Code : 8480-6 BMI: 26.7 Code : 30304-4 Heart Rate 1 : 67 bpm Height: 5'3" SpO2: 98% Weight: 151 lbs 12/23/2016 BMI: 26.7 Code: 70146-6 Height: 5'3" Weight: 151 lbs 12/22/2016 Blood Pressure 1: 142/60 Code : 8480-6 BMI: 26.7 Code : 75899-0 Heart Rate 1 : 67 bpm Height: 5'3" SpO2: 98% Weight: 151 lbs 12/08/2016 Blood Pressure 1: 140/72 Code : 8480-6 Heart Rate 1: 72 bpm Height: 5'3" SpO2: 97% Weight: 11/30/2016 Blood Pressure 1: 128/80 Code : 8480-6 BMI: 26.7 Code : 94507-2 Heart Rate 1 : 63 bpm Height: 5'3" SpO2: 96% Weight: 151 lbs 09/28/2016 Blood Pressure 1: 130/80 Code : 8480-6 BMI: 27.1 Code : 42877-5 Heart Rate 1 : 80 bpm Height: 5'3" SpO2: 97% Weight: 153 lbs 07/06/2016 Blood Pressure 1: 162/72 Code : 8480-6 BMI: 27.6 Code : 65864-0 Heart Rate 1 : 72 bpm Height: 5'3" SpO2: 98% Weight: 156 lbs 06/01/2016 Blood Pressure 1: 122/66 Code : 8480-6 BMI: 27.5 Code : 93258-5 Heart Rate 1 : 73 bpm Height: 5'3" SpO2: 98% Weight: 155 lbs 8 oz 02/27/2016 Blood Pressure 1: 126/68 Code : 8480-6 BMI: 26.9 Code : 56897-0 Heart Rate 1 : 70 bpm Height: 5'3" SpO2: 98% Weight: 152 lbs 09/10/2015 Blood Pressure 1: 130/70 Code : 8480-6 BMI: 26.9 Code : 75849-4 Heart Rate 1 : 72 bpm Height: 5'3" SpO2: 97% Weight: 152 lbs 05/14/2015 Blood Pressure 1: 138/82 Code : 8480-6 BMI: 26.4 Code : 16161-0 Heart Rate 1 : 75 bpm Height: 5'3" SpO2: 98% Weight: 149 lbs 02/11/2015 Blood Pressure 1: 128/72 Code : 8480-6 BMI: 25.5 Code : 49029-6 Heart Rate 1 : 73 bpm Height: 5'3" SpO2: 94% Weight: 144 lbs Functional Status No Functional Status data History of Present Illness Symptom Name Status Result Effective Date Notes Limitation on Activities does not limit activities [...] data Encounters Encounter Performer Location Codes Date ([id number]) 67104 EST. PATIENT, LEVEL III Diagnosis: Essential (primary) hypertension[ICD10: I10] Diagnosis: Dysuria[ICD10: R30.0] Diagnosis: Nausea[ICD10: R11.0] Diagnosis: Headache[ICD10: R51] Elen Cortez MD, [facility] CPT-4: 02779 04/04/2018 97028 EST. PATIENT, LEVEL III Diagnosis: Other acute sinusitis[ICD10: J01.80] Diagnosis: Dizziness and giddiness[ICD10: R42] Diagnosis: Dysuria[ICD10: R30.0] Diagnosis: Candidal stomatitis[ICD10: B37.0] Diagnosis: Essential (primary) hypertension[ICD10: I10] Diagnosis: Other fatigue[ICD10: R53.83] Diagnosis: Other malaise[ICD10: R53.81] Bridget Cortez MD, [facility] CPT-4 : 90270 04/01/2018 ([id number]) 60052 EST. 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 PATIENT, LEVEL IV Diagnosis: Otalgia, right ear[ICD10: H92.01] Diagnosis: Headache[ICD10: R51] Diagnosis: Other fatigue[ICD10: R53.83] Diagnosis: Abnormal findings on diagnostic imaging of other specified body structures[ICD10: R93.89] Elen Cortez MD, [facility] CPT-4: 52251 03/01/2018 35507 EST. PATIENT, LEVEL III Diagnosis: Acute cystitis with hematuria[ICD10: N30.01] Bridget Cortez MD, [facility] CPT-4: 14555 11/18/2017 72270 EST. PATIENT, LEVEL IV Diagnosis: Other acute sinusitis[ICD10: J01.80] Diagnosis: Otalgia, right ear[ICD10: H92.01] Bridget Cortez MD, [facility] CPT -4: 24257 11/03/2017 51440 EST. PATIENT, LEVEL III Diagnosis: Other fatigue[ICD10: R53.83] Diagnosis: Other malaise[ICD10: R53.81] Diagnosis: Pain in left knee[ICD10: M25.562] Diagnosis: Pain in right knee[ICD10: M25.561] Bridget Cortez MD, [facility] CPT-4: 64182 09/22/2017 ([id number]) 03126 EST. PATIENT, LEVEL III Diagnosis: Cough[ICD10: R05] Diagnosis: Acute bronchitis due to other specified organisms[ICD10: J20.8] Elen Cortez MD, [facility] CPT-4: 67639 04/01/2017 ([id number]) 41956 EST. PATIENT, LEVEL III Diagnosis: Otalgia, right ear[ICD10: H92.01] Diagnosis: Other allergic rhinitis[ICD10: J30.89] Shiela Cortez MD, [facility] CPT-4: 34790 03/25/2017 ([id number]) 13419 EST. PATIENT, LEVEL III Diagnosis: Benign paroxysmal vertigo, bilateral[ICD10: H81.13] Shiela Cortez MD, [facility] CPT-4: 51801 12/22/2016 ([id number]) 13619 EST. PATIENT, LEVEL IV Diagnosis: Benign paroxysmal vertigo, bilateral[ICD10: H81.13] Diagnosis: Other allergic rhinitis[ICD10: J30.89] Diagnosis: Hypothyroidism, unspecified[ICD10: E03.9] Shiela Cortez MD, [facility] CPT-4: 44336 12/08/2016 ([id number]) 54718 EST. PATIENT, LEVEL IV Diagnosis: Atrophy of thyroid (acquired)[ICD10: E03.4] Diagnosis: Essential (primary) hypertension[ICD10: I10] Diagnosis: Mixed hyperlipidemia[ICD10: E78.2] Elen Cortez MD, [facility] CPT-4: 78578 11/30/2016 36884 EST. PATIENT, LEVEL IV Diagnosis: Headache[ICD10: R51] Diagnosis: Other fatigue[ICD10: R53.83] Diagnosis: Dizziness and giddiness[ICD10: R42] Bridget Cortez MD, [facility] CPT-4: 27994 09/28/2016 00669 EST. PATIENT, LEVEL IV Diagnosis: Essential (primary) hypertension[ICD10: I10] Diagnosis: Headache[ICD10: R51] Bridget Cortez MD, [facility] CPT-4: 66508 07/06/2016 ([id number]) 43508 EST. PATIENT, LEVEL IV Diagnosis: Essential (primary) hypertension[ICD10: I10] Diagnosis: Atrophy of thyroid (acquired)[ICD10: E03.4] Diagnosis: Mixed hyperlipidemia[ICD10: E78.2] Elen Cortez MD, [facility] CPT-4: 91698 06/01/2016 93335 EST. PATIENT, LEVEL IV Diagnosis: Acute laryngopharyngitis[ICD10: J06.0] Diagnosis: Other allergic rhinitis[ICD10: J30.89] Diagnosis: Other specified hypothyroidism[ICD10: E03.8] Diagnosis: Other fatigue[ICD10: R53.83] Bridget Cortez MD, [facility] CPT-4 : 72444 02/27/2016 ([id number]) 85541 EST. PATIENT, LEVEL III Diagnosis: Essential (primary) hypertension[ICD10: I10] Diagnosis: Mixed hyperlipidemia[ICD10: E78.2] Elen Cortez MD, [facility] CPT-4: 65925 09/10/2015 ([id number]) 80256 EST. PATIENT, LEVEL IV Diagnosis: Essential (primary) hypertension[ICD10: I10] Diagnosis: Hypothyroidism, unspecified[ICD10: E03.9] Diagnosis: Unspecified osteoarthritis, unspecified site[ICD10: M19.90] Elen Cortez MD , [facility] CPT-4: 97773 05/14/2015 ([id number]) OFFICE VISIT, NEW - LEVEL 4 Diagnosis: Essential (primary) hypertension[ICD10: I10] Diagnosis: Hypothyroidism, unspecified[ICD10: E03.9] Diagnosis: Unspecified osteoarthritis, unspecified site[ICD10: M19.90] Elen Cortez MD , [facility] CPT-4: 39002 02/11/2015 Plan of Care Planned Activity Notes Codes Status Date Referral: Wan Steven Referral Completed 04/28/2018 Patient Education: Patient Medication Summary Completed 04/08/2018 Appointment: Injection 04/07/2018 Patient Education: Patient Medication Summary Completed 04/07/2018 Appointment: Injection 04/06/2018 Patient Education: Patient Medication Summary Completed 04/06/2018 Appointment: Injection 04/05/2018 [phone] ([facility]) Moderate 04/05/2018 Patient Education: [...] today. 04/04/2018 Appointment: [phone] (10 min) Simple 04/04/2018 Patient Education: Patient Medication Summary Completed 04/04/2018 Patient Education: Patient Medication Summary Completed 04/04/2018 Patient Education: Patient Medication Summary Completed 04/04/2018 Care Plan: Referral Order SNOMED-CT : [id number] Pending 04/04/2018 Visit Plan: Dysuria, dizziness, fatigue, [...] show improvement. 04/01/2018 Appointment[phone] ([facility] min) Moderate 04/01/2018 Patient Education: Patient Medication Summary Completed 04/01/2018 Visit Plan: Sinusitis - Pt has acute infection - pain in face, maxillary region, Pt informed to use decongestant, RX given to patient, sinus rinses also recommended. Call if symptoms do not show improvement. Dysuria - rx for antibiotic sent to pharmacy. 03/24/2018 Appointment: [facility] [address] [facility] (15 min) Moderate 03/24/2018 Patient Education: Patient [...] improve. 03/01/2018 Appointment: [facility] [phone] [facility] [place] (15 min) Moderate 03/01/2018 Patient Education: [...] spray. 12/24/2017 Appointment: Bridget Velazco WPtel: [phone] - Annual Wellness Visit 12/24/2017 Patient Education: Patient Medication Summary Completed 12/24/2017 Appointment: Bridget Velazco WPtel: [facility] (15 min) Moderate 11/30/2017 Appointment: Lab Draw [...] 11/18/2017 Appointment: Bridget Velazco WPtel: [facility] (15 min) Moderate 11/18/2017 Patient Education: Patient Medication Summary Completed 11/18/2017 Visit Plan: Sinusitis - Pt has acute infection - pain in face, maxillary region, Pt informed to use decongestant, RX given to patient, sinus rinses also recommended. Call if symptoms do not show improvement. 11/03/2017 Appointment: Bridget Velazco WPtel: [phone] [facility] (15 min) Moderate 11/03/2017 Patient Education: [...] not improve. 09/22/2017 Appointment: Bridget Velazco WPtel: [address] [place] [address] (15 min) Moderate 09/22/2017 Patient Education: Patient Medication Summary Completed 09/22/2017 Visit Plan: Bronchitis - acute case of bronchitis identified. Pt has been given antibiotics, breathing treatments as appropriate, and pt has been instructed to call if symptoms are not improved, or if symptoms acutely worsen. 04/01/2017 Appointment: Elen Cortez WPtel: [facility] (15 min) Moderate 04/01/2017 Patient Education: [...] 03/25/2017 Appointment: Shiela Srivastava WPtel: [phone] [place] (10 min) Simple 03/25/2017 Appointment: Elen Cortez WPtel: [facility] [address] [place] (15 min) Moderate 03/25/2017 Patient Education: [...] surrogate. 12/23/2016 Appointment: [phone] [facility] [facility] - Annual Wellness Visit 12/23/2016 Patient Education: Patient Medication Summary Completed 12/23/2016 Visit Plan: Vertigo-discussed PT for vestibular exercises- patient wants to wait since symptoms are improving-continue anti histamine as directed-meclizine as needed 12/22/2016 Appointment: [facility]rivastava [phone] [phone] (30 min) Complex 12/22/2016 Patient Education: Patient [...] of control. 12/08/2016 Appointment: Shiela Srivastava WPtel: [phone] [phone] [place] (30 min) Complex 12/08/2016 Patient [...] to medications. 11/30/2016 Appointment: [phone] ([facility] min) Moderate 11/30/2016 Patient Education: [...] [facility]az[facility] [phone] [facility] [place] (30 min) Complex 09/28/2016 Patient Education: [...] concerns. 07/06/2016 Appointment: Bridget Velazco WPtel: [phone] [facility] (15 min) Moderate 07/06/2016 Patient Education: Patient [...] improving 06/01/2016 Appointment: [phone] (15 min) Moderate 06/01/2016 Patient Education: [...] labs 02/27/2016 Appointment: [phone] [facility] (30 min) Complex 02/27/2016 Patient Education: Patient Medication Summary Completed 02/27/2016 Patient Education: Patient Medication Summary Completed 09/27/2015 Care Plan: SCREENINGMAMMOGRAPHYDIGITAL LOINC : 60277-4 Pending 09/27/2015 Visit Plan: Hypertension - well [...] colonoscopy 09/10/2015 Appointment: [phone] [facility] (15 min) Moderate 09/10/2015 Patient Education: [...] Dr. Sanchez. 05/14/2015 Appointment: Elen Cortez WPtel: [address] [place], [place] [phone] (15 min) Moderate 05/14/2015 Patient Education: Patient Medication Summary Completed 05/14/2015 Patient Education: Hypertension Completed 05/14/2015 Care Plan: Referral Order SNOMED-CT : [id number] Ordered 05/14/2015 Patient Education: Patient Medication Summary Completed 03/01/2015 Appointment: Nurse Visit 02/28/2015 Patient Education: Patient Medication Summary Completed 02/28/2015 Patient Education: Patient Medication Summary Completed 02/27/2015 Appointment: Nurse Visit 02/26/2015 Patient Education: Patient Medication Summary Completed 02/26/2015 Appointment: Injection 02/25/2015 Patient Education: Patient Medication Summary Completed 02/25/2015 Patient Education: Patient Medication Summary Completed 02/21/2015 Care Plan: URINALYSIS NONAUTO W/O SCOPE LOINC : 93528-9 Ordered 02/21/2015 Visit Plan: Hypertension - well [...] symptoms. 02/11/2015 Appointment: [phone] [facility] [place] New Patient 02/11/2015 Patient Education: [...] if symptoms do not show improvement. . Fatigue, Malaise - will check labs [...] tylenol for break through pain symptoms. . BPPV - Benign Paroxysmal Positional Vertigo [...] based on previous levels of control. . Episodes of headache, dizziness, and light [...]
--- OUTSIDE RECORDS SUMMARY | 2018-06-01 12:52 | XMS REPORT | CCD ---
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 Name Role Phone PP Unavailable CCM Unavailable Summary Purpose Interface Exchange Insurance Providers Payer name Policy type / Coverage type Covered republican ID Effective Begin Date Effective End Date WPS Medicare Part B Medicare Part B [id number] Unknown [place] [employer] Insurance Medicare Part B [id number] Unknown Family history Mother Diagnosis Age At [...] spouses - 02/11/[address]: 731108032 Never smoker 02/11/2015 Alcohol history Unknown occasionally drinks alcohol 02/11/2015 Allergies, Adverse Reactions, Alerts Substance Reaction Codes Entered Date Inactivated Date Status CODEINE RxNorm: 2670 02/11/2015 No Inactive Date Active allergy Unknown 12/23/2016 No Inactive Date Active ciprofloxacin rash, RxNorm: 70584 02/26/2015 No Inactive Date Active hydrocodone Unknown [...] ceftriaxone 500 mg solution for injection RxNorm: 6265852 Inj 04/07/2018 04/07/2018 Inactive ceftriaxone 500 mg solution for injection RxNorm: 5161060 Inj 04/06/2018 04/06/2018 Inactive ketorolac 60 mg/2 mL intramuscular solution RxNorm: 5706638 Milliliter(s) IM 04/05/2018 04/05/2018 Inactive ceftriaxone 500 mg solution for injection RxNorm: 5017923 Inj 04/05/2018 04/05/2018 Inactive ondansetron 4 mg disintegrating tablet RxNorm: 165319 1 Tablet(s) PO TID as needed nausea 04/04/2018 No Stop Date Active ketorolac 30 mg/mL injection solution RxNorm: 995067 2 Milliliter(s) Inj 04/04/2018 04/04/2018 Inactive ceftriaxone 500 mg solution for injection RxNorm: 0817343 Inj 04/04/2018 04/04/2018 Inactive doxycycline hyclate 100 mg tablet RxNorm: 6345783 1 Tablet(s) PO BID 04/01/2018 04/10/2018 Active nystatin 100,000 unit/mL oral suspension RxNorm: 858204 4 Milliliter(s) PO QID 04/01/2018 04/05/2018 Inactive prednisone 10 mg tablet RxNorm: 744802 1 Tablet(s) PO UD 6 pills on day 1 and 2 and then decrease by one pill every other day until prescription is done 03/24/2018 No Stop Date Active amoxicillin 500 mg capsule RxNorm: 382527 1 Capsule(s) PO TID 03/24/2018 04/02/2018 Inactive metoprolol succinate ER 50 mg tablet,extended release 24 hr RxNorm: 442854 Tablet (s) TAKE 1 TABLET BY MOUTH DAILY 03/21/2018 10/16/2018 Active PLEASE SEND REFILL REQUESTS ELECTRONICALLY!! Synthroid 88 mcg tablet RxNorm: 319836 TAKE 1 TABLET BY MOUTH DAILY 03/08/2018 08/04/2018 Active 03/07/2018 11:21:21 AM pravastatin 80 mg tablet RxNorm: 992747 Tablet(s) 1 Tablet(s) PO daily 03/01/2018 02/23/2019 Active Kenalog 40 mg/mL suspension for injection RxNorm: 3639099 Milliliter(s) Inj 12/24/2017 12/24/2017 Inactive cetirizine 10 mg tablet RxNorm: 7505030 TAKE 1 TABLET BY MOUTH DAILY 12/21/2017 07/18/2018 Active Generic For:*ZYRTEC 10 MG TABLET 12/21/2017 10:08:05 AM Synthroid 88 mcg tablet RxNorm: 071804 TAKE 1 TABLET BY MOUTH DAILY 12/07/2017 03/06/2018 Inactive 12/06/2017 11:46:49 AM Lipitor 80 mg tablet RxNorm: 579101 1 Tablet(s) PO daily 201702/28/2018 Inactive pravastatin 80 mg tablet RxNorm: 233034 1 Tablet(s) PO daily 11/29/2017 Inactive Lipitor 80 mg tablet RxNorm: 462488 1 Tablet(s) PO daily 201711/28/2017 Inactive lisinopril 20 mg tablet RxNorm: 120868 TAKE 1 TABLET BY MOUTH TWICE DAILY 11/23/2017 04/21/2018 Active Generic For:*PRINIVIL 20 MG TABLET 11/23/2017 11:29:44 AM Macrobid 100 mg capsule RxNorm: 797771 1 Capsule(s) PO BID 06/201711/25/2017 Inactive Macrobid 100 mg capsule RxNorm: 575409 1 Capsule(s) PO BID 06/201711/18/2017 Inactive Lomotil 2.5 mg-0.025 mg tablet RxNorm: 5983247 1 -2 Tablet(s) PO TID as needed 11/19/2017 11/25/2017 Inactive Lomotil 2.5 mg-0.025 mg tablet RxNorm: 4158341 1 -2 Tablet(s) PO TID as needed 11/19/2017 11/18/2017 Inactive Pyridium 200 mg tablet RxNorm: 9548764 1 Tablet(s) PO TID as needed 11/18/2017 11/22/2017 Inactive Augmentin 500 mg-125 mg tablet RxNorm: 656931 1 Tablet(s) PO TID 11/18/2017 11/27/2017 Inactive Keflex 500 mg capsule RxNorm: 074935 1 Capsule(s) PO TID 201711/09/2017 Inactive Denavir 1 % topical cream RxNorm: 919044 1 TOP TID as needed cold sores 11/01/2017 01/29/2018 Inactive Denavir 1 % topical cream RxNorm: 681238 1 TOP TID as needed cold sores 11/01/2017 10/31/2017 Inactive Synthroid 88 mcg tablet RxNorm: 411760 TAKE 1 TABLET BY MOUTH DAILY 09/29/2017 11/27/2017 Inactive 09/29/2017 12:58:07 PM pravastatin 80 mg tablet RxNorm: 829434 1 Tablet(s) PO daily 08/30/2017 Inactive pravastatin 80 mg tablet RxNorm: 654097 1 Tablet(s) PO daily 11/28/2017 Inactive Synthroid 88 mcg tablet RxNorm: 410559 TAKE 1 TABLET BY MOUTH DAILY 08/30/2017 09/28/2017 Inactive 08/30/2017 10:53:26 AM metoprolol succinate ER 50 mg tablet,extended release 24 hr RxNorm: 741004 Tablet (s) TAKE 1 TABLET BY MOUTH DAILY 08/17/2017 03/14/2018 Inactive PLEASE SEND REFILL REQUESTS ELECTRONICALLY!! lisinopril 20 mg tablet RxNorm: 787082 TAKE 1 TABLET BY MOUTH TWICE DAILY 06/18/2017 11/14/2017 Inactive Generic For:*PRINIVIL 20 MG TABLET 06/18/2017 1:31: 00 PM Synthroid 88 mcg tablet RxNorm: 987575 TAKE 1 TABLET BY MOUTH DAILY 05/24/2017 08/21/2017 Inactive 05/24/2017 2:13:21 PM cetirizine 10 mg tablet RxNorm: 1469723 1 Tablet(s) PO daily 12/12/2017 Inactive Zithromax Z-Russell 250 mg capsule RxNorm: 180989 1 Capsule(s) PO 04/02/2017 04/05/2017 Inactive Zithromax Z-Russell 250 mg tablet RxNorm: 483175 1 Tablet(s) PO 04/01/2017 Inactive Zithromax Z-Russell 250 mg capsule RxNorm: 353438 1 Capsule(s) PO 04/02/2017 04/01/2017 Inactive Zithromax Z-Russell 250 mg tablet RxNorm: 889020 1 Tablet(s) PO 04/06/2017 Inactive Ventolin HFA 90 mcg/actuation aerosol inhaler RxNorm: 375133 2 INH QID as needed - for the first 3 days inhale at least two puffs three times daily, then use as needed for shortness of breath 04/01/2017 04/30/2017 Inactive Keflex 500 mg capsule RxNorm: 977816 1 Capsule(s) PO TID 201604/01/2017 Inactive meclizine 25 mg tablet RxNorm: 437185 1 Tablet(s) PO Q6 PRN 1 Tablet(s) PO Q6 PRN 03/25/2017 No Stop Date Active dizziness meclizine 25 mg tablet RxNorm: 626085 Tablet(s) 1 Tablet(s) PO Q6 PRN 03/25/2017 03/24/2017 Inactive dizziness Kenalog 40 mg/mL suspension for injection RxNorm: 0980764 1 Milliliter(s) Inj 03/25/2017 03/25/2017 Inactive meclizine 25 mg tablet RxNorm: 994731 1 Tablet(s) PO Q6 PRN 03/24/2017 Inactive dizziness lisinopril 20 mg tablet RxNorm: 588589 1 Tablet(s) PO BID 01/1506/13/2017 Inactive metoprolol succinate ER 50 mg tablet,extended release 24 hr RxNorm: 989575 TAKE 1 TABLET BY MOUTH DAILY 01/07/20172017 Inactive Generic For:TOPROL XL 50MG TAB 01/07/2017 12:38:23 PM Synthroid 88 mcg tablet RxNorm: 490513 TAKE 1 TABLET BY MOUTH DAILY 12/25/2016 05/23/2017 Inactive 12/25/2016 9:47:08 AM Zithromax Z-Russell 250 mg tablet RxNorm: 097992 Tablet(s) PO UD 03/24/2017 Inactive meclizine 25 mg tablet RxNorm: 351901 1 Tablet(s) PO Q6 PRN 12/20/2016 Inactive dizziness Kenalog 40 mg/mL suspension for injection RxNorm: 7496000 Milliliter(s) Inj 12/08/2016 12/08/2016 Inactive meloxicam 15 mg tablet RxNorm: 351497 1 Tablet(s) PO daily 12/20/2016 Inactive cetirizine 10 mg tablet RxNorm: 1035625 1 Tablet(s) PO daily 05/16/2017 Inactive pravastatin 40 mg tablet RxNorm: 778625 1 Tablet(s) PO BID 07/201608/30/2017 Inactive Cancel 80 mg tab lisinopril 20 mg tablet RxNorm: 709966 1 Tablet(s) PO BID 08/1212/22/2016 Inactive Synthroid 88 mcg tablet RxNorm: 847550 1 Tablet(s) PO TAKE ONE (1) TABLET BY MOUTH DAILY 07/28/2016 12/24/2016 Inactive decrease dose hydralazine 25 mg tablet RxNorm: 858151 1 Tablet(s) PO TID as needed for Systolic blood pressure over 170 07/06/20162016 Inactive lisinopril 20 mg tablet RxNorm: 132422 1 Tablet(s) PO BID to replace your other lisinopril dose 07/06/2016 08/04/2016 Inactive lisinopril 10 mg tablet RxNorm: 544408 TAKE ONE TABLET BY MOUTH TWICE DAILY 06/10/2016 08/11/2016 Inactive Generic For:ZESTRIL 10 MG TABLET 06/09/2016 12:58: 50 PM triamcinolone acetonide 0.1 % topical cream RxNorm: 4338285 1 Application TOP TID as needed 06/01/2016 No Stop Date Active nystatin 100,000 unit/gram topical cream RxNorm: 872750 1 Gram(s) TOP TID as needed 06/01/2016 No Stop Date Active metoprolol succinate ER 50 mg tablet,extended release 24 hr RxNorm: 625145 1 Tablet(s) PO daily 05/26/2016 12/21/2016 Inactive cetirizine 10 mg tablet RxNorm: 8633926 1 Tablet(s) PO daily 10/18/2016 Inactive Synthroid 88 mcg tablet RxNorm: 553767 1 Tablet(s) PO TAKE ONE (1) TABLET BY MOUTH DAILY 03/06/2016 03/07/2018 Inactive Brand name only! Synthroid 88 mcg tablet RxNorm: 416311 1 Tablet(s) PO TAKE ONE (1) TABLET BY MOUTH DAILY 03/04/2016 03/05/2016 Inactive decrease dose cetirizine 10 mg tablet RxNorm: 9152223 1 Tablet(s) PO daily 03/22/2016 Inactive amoxicillin 500 mg capsule RxNorm: 479325 1 Capsule(s) PO TID 02/27/2016 03/04/2016 Inactive lisinopril 10 mg tablet RxNorm: 306603 TAKE ONE TABLET BY MOUTH TWICE DAILY 02/06/2016 06/04/2016 Inactive Generic For:ZESTRIL 10 MG TABLET 02/06/2016 12:16: 38 PM Synthroid 100 mcg tablet RxNorm: 934808 TAKE ONE (1) TABLET BY MOUTH DAILY 01/03/2016 03/03/2016 Inactive 01/03/2016 10:35:14 AM N O T I C E Last quantity doesn't match original quantity lisinopril 10 mg tablet RxNorm: 862313 1 Tablet(s) PO BID 10/0301/31/2016 Inactive Synthroid 100 mcg tablet RxNorm: 317778 1 Tablet(s) PO daily 01/02/2016 Inactive metoprolol succinate ER 50 mg tablet,extended release 24 hr RxNorm: 780985 1 Tablet(s) PO daily 10/04/2015 04/30/2016 Inactive Tylenol Arthritis 650 mg tablet,extended release RxNorm: 9424269 2 Tablet(s) PO TID 09/10/2015 No Stop Date Active metoprolol succinate ER 50 mg tablet,extended release 24 hr RxNorm: 843319 1 Tablet(s) PO daily 09/05/2015 10/03/2015 Inactive pravastatin 80 mg tablet RxNorm: 461052 1 Tablet(s) PO QHS 08/30/2015 Inactive pravastatin 40 mg tablet RxNorm: 097414 1 Tablet(s) PO BID 08/29/2015 Inactive Cancel 80 mg tab pravastatin 40 mg tablet RxNorm: 602521 1 Tablet(s) PO BID 08/19/2016 Inactive Cancel 80 mg tab lisinopril 10 mg tablet RxNorm: 350101 1 Tablet(s) PO BID 06/1308/11/2016 Inactive lisinopril 10 mg tablet RxNorm: 963036 1 Tablet(s) PO BID 06/1310/03/2015 Inactive Synthroid 100 mcg tablet RxNorm: 387712 1 Tablet(s) PO daily 10/03/2015 Inactive ceftriaxone 1 gram solution for injection RxNorm: 6645249 Inj 03/01/2015 03/01/2015 Inactive ceftriaxone 1 gram solution for injection RxNorm: 4046046 Inj 02/28/2015 02/28/2015 Inactive ceftriaxone 1 gram solution for injection RxNorm: 9822847 Inj 02/27/2015 02/27/2015 Inactive ceftriaxone 1 gram solution for injection RxNorm: 1560956 Inj 02/26/2015 02/26/2015 Inactive ceftriaxone 1 gram solution for injection RxNorm: 9542336 Inj 02/25/2015 02/25/2015 Inactive phenazopyridine 200 mg tablet RxNorm: 7260897 1 Tablet(s) PO Q8 02/21/2015 02/20/2015 Inactive Cipro 500 mg tablet RxNorm: 635510 1 Tablet(s) PO BID 201402/20/2015 Inactive phenazopyridine 200 mg tablet RxNorm: 5590420 1 Tablet(s) PO Q8 02/21/2015 02/25/2015 Inactive Cipro 500 mg tablet RxNorm: 806922 1 Tablet(s) PO BID 201402/27/2015 Inactive lisinopril 10 mg tablet RxNorm: 788411 1 Tablet(s) PO BID 02/1406/12/2015 Inactive metoprolol succinate ER 50 mg tablet,extended release 24 hr RxNorm: 054741 3/4 Tablet(s) PO daily 02/11/2015 09/04/2015 Inactive Voltaren 1 % topical gel RxNorm: 206244 2 Gram(s) TOP QID use this on affected joints up to four times daily. 02/11/2015 03/12/2015 Inactive Probiotic oral RxNorm : 6205 oral No Start Date Active aspirin 81 mg tablet RxNorm: 552826 1 Tablet(s) PO daily No Start Date Active Super B-Complex tablet RxNorm: 1 Tablet(s) PO No Start Date Active Flonase Allergy Relief 50 mcg/actuation nasal spray, suspension RxNorm: 0379356 1 [place] NASAL BID No Start Date Active Super-D3+ oral RxNorm : oral No Start Date Active Prilosec OTC 20 mg tablet,delayed release RxNorm: 625436 2 Tablet(s) PO QAM No Start Date Active Flonase Allergy Relief 50 mcg/actuation nasal spray, suspension RxNorm: 3298785 1 [place] NASAL as needed No Start Date Active Move Free Ultra 40 mg-10 mg-3.3 mg tablet RxNorm: 1 Tablet(s) PO daily No Start Date Active metoprolol tartrate 50 mg tablet RxNorm: 879017 1 Tablet(s) PO daily No Start Date 02/10/2015 Inactive lisinopril 10 mg tablet RxNorm: 351528 1 Tablet(s) PO BID No Start Date 02/13/2015 Inactive pravastatin 80 mg tablet RxNorm: 503416 1 Tablet(s) PO daily No Start Date 08/29/2015 Inactive Synthroid 100 mcg tablet RxNorm: 059188 1 Tablet(s) PO daily No Start Date 06/09/2015 Inactive lisinopril 40 mg tablet RxNorm: 135061 1 Tablet(s) PO BID No Start Date 02/28/2018 Inactive Tylenol Arthritis 650 mg tablet,extended release RxNorm: 6304719 4 Tablet(s) PO daily No Start Date 09/09/2015 Inactive Medication Administered Medication Codes Instructions Start Date Status ceftriaxone 500 mg solution for injection RxNorm: 9790424 04/07/2018 Active ceftriaxone 500 mg solution for injection RxNorm: 2969850 04/06/2018 No longer Active ceftriaxone 500 mg solution for injection RxNorm: 7369102 04/05/2018 No longer Active ketorolac 60 mg/2 mL intramuscular solution RxNorm: 6381479 Milliliter 04/05/2018 No longer Active ceftriaxone 500 mg solution for injection RxNorm: 1936283 04/04/2018 No longer Active ketorolac 30 mg/mL injection solution RxNorm: 985961 2Milliliter 04/04/2018 No longer Active Kenalog 40 mg/mL suspension for injection RxNorm: 4663437 Milliliter 12/24/2017 No longer Active Kenalog 40 mg/mL suspension for injection RxNorm: 2880187 1Milliliter 03/25/2017 No longer Active Kenalog 40 mg/mL suspension for injection RxNorm: 1591889 Milliliter 12/08/2016 No longer Active ceftriaxone 1 gram solution for injection RxNorm: 3120280 03/01/2015 No longer Active ceftriaxone 1 gram solution for injection RxNorm: 1767059 02/28/2015 No longer Active ceftriaxone 1 gram solution for injection RxNorm: 6457367 02/27/2015 No longer Active ceftriaxone 1 gram solution for injection RxNorm: 9623823 02/26/2015 No longer Active ceftriaxone 1 gram solution for injection RxNorm: 5510319 02/25/2015 No longer Active Immunizations Vaccine Codes Date Status Influenza CVX: 141 01/18/2018 completed Influenza CVX: 141 03/15/2017 completed Influenza CVX: 141 03/18/2016 completed Influenza CVX: 141 02/11/2015 completed Assessments Condition Codes Effective Dates Dysuria ICD-10: R30.0 ICD-9: 788.1 04/07/2018 Headache ICD-10: R51 ICD-9: 784.0 04/05/2018 Essential [...] Item Item Code Result Date Free T4 Nmi439 FREE T4 1.07 ng/dL 04/04/2018 Tsh Ord6 TSH (3rd IS) 1.93 uIU/mL 04/04/2018 Urine Culture Ucult Preliminary NO Growth Day 1 03/28/2018 Urine Culture Ucult Complete NO Growth Day 2 03/28/2018 Urine Culture Ucult Complete >100,000 col/ml aerobic growth sent to ref lab 11/19/2017 B12 Nwu366 B12 712.00 pg/ml 09/28/2017 C-Reactive Protein Qnt Crqnt CRP 0.1 mg/dl 09/23/2017 Comp Metabolic Fcz889 NA 139 mEq/L 09/23/2017 Comp Metabolic Khn141 K 4.8 mEq/L 09/23/2017 Comp Metabolic Aeg001 CL 104 mEq/L 09/23/2017 Comp Metabolic Kie318 CO2 28.0 mEq/L 09/23/2017 Comp Metabolic Jms776 ANION GAP 09/23/2017 Comp Metabolic Yaj207 GLUCOSE 92 mg/dL 09/23/2017 Comp Metabolic Isx644 Creat 0.7 mg/dL 09/23/2017 Comp Metabolic Pqs775 eGFR 91 ml/min/1.73m2 09/23/2017 Comp Metabolic Cvk302 BUN 11 mg/dL 09/23/2017 Comp Metabolic Jie086 B/C Ratio 16.4 Ratio 09/23/2017 Comp Metabolic Oxd718 CALCIUM 9.0 mg/dL 09/23/2017 Comp Metabolic Xfa254 ALK PHOS 76 U/L 09/23/2017 Comp Metabolic Vuk924 AST(SGOT) 24 U/L 09/23/2017 Comp Metabolic Duh403 ALT(SGPT) 21 U/L 09/23/2017 Comp Metabolic Rfy564 BILI T 0.3 mg/dL 09/23/2017 Comp Metabolic Pod669 ALBUMIN 4.1 g/dL 09/23/2017 Comp Metabolic Llz406 TPRO 6.2 g/dL 09/23/2017 Comp Metabolic Qwv951 GLOB 2.1 g/dL 09/23/2017 Comp Metabolic Njf836 A/G Ratio 1.9 Ratio 09/23/2017 Comp Metabolic Dxy633 Osmo 277 mOsmo 09/23/2017 Sed Rate Ord21 ESR 3 mm/hr 09/22/2017 Vitamin D 25 Oh Yib6517 VITAMIN D, 25 HYDROXY 78.79 ng/mL Tsh Ord6 TSH (3rd IS) 1.01 uIU/mL 09/22/2017 Cbc With Differential Ord2 WBC 8.21 K/ul 09/22/2017 Cbc With Differential Ord2 RBC 4.18 M/ul 09/22/2017 Cbc With Differential Ord2 HGB 12.8 g/dl 09/22/2017 Cbc With Differential Ord2 HCT 40.6 % 09/22/2017 Cbc With Differential Ord2 Neut% 57.3 % 09/22/2017 Cbc With Differential Ord2 MCV 97.1 fl 09/22/2017 Cbc With Differential Ord2 Lymph% 28.9 % 09/22/2017 Cbc With Differential Ord2 MCH 30.6 pg 09/22/2017 Cbc With Differential Ord2 [place]% 10.5 % 09/22/2017 Cbc With Differential Ord2 [...] 2.37 K/ul 09/22/2017 Cbc With Differential Ord2 [place] ABS# 0.9 K/ul 09/22/2017 Cbc With Differential Ord2 Eos ABS# 0.2 K/ul 09/22/2017 Cbc With Differential Ord2 Baso ABS# 0.0 K/ul 09/22/2017 Free T4 Fwb498 FREE T4 0.99 ng/dL 09/22/2017 %Hba1C Tsy609 % HbA1c 38109-2 6.0 % 12/10/2016 %Hba1C Tzu604 Gluc Ave 126 mg/dL 12/10/2016 Tsh Ord6 hTSH II 0.89 uIU/mL 12/09/2016 Free T4 Obf608 FREE T4 0.99 ng/dL 12/09/2016 Comp Metabolic Jdr305 NA 138 mEq/L 12/09/2016 Comp Metabolic Hxg393 K 5.2 mEq/L 12/09/2016 Comp Metabolic Lxz007 CL 104 mEq/L 12/09/2016 Comp Metabolic Vse562 CO2 29.0 mEq/L 12/09/2016 Comp Metabolic Nql145 ANION GAP 10 12/09/2016 Comp Metabolic Pfg877 GLUCOSE 135 mg/dL 12/09/2016 Comp Metabolic Jdk662 Creat 0.8 mg/dL 12/09/2016 Comp Metabolic Jef147 eGFR 79 ml/min/1.73m2 12/09/2016 Comp Metabolic Fef266 BUN 18 mg/dL 12/09/2016 Comp Metabolic Ldw788 B/C Ratio 23.7 Ratio 12/09/2016 Comp Metabolic Khz230 CALCIUM 9.5 mg/dL 12/09/2016 Comp Metabolic Lye009 ALK PHOS 73 U/L 12/09/2016 Comp Metabolic Vce500 AST(SGOT) 24 U/L 12/09/2016 Comp Metabolic Jzx610 ALT(SGPT) 20 U/L 12/09/2016 Comp Metabolic Oqa026 BILI T 0.3 mg/dL 12/09/2016 Comp Metabolic Dwz083 ALBUMIN 4.3 g/dL 12/09/2016 Comp Metabolic Osh581 TPRO 6.4 g/dL 12/09/2016 Comp Metabolic Ewy927 GLOB 2.1 g/dL 12/09/2016 Comp Metabolic Byz796 A/G Ratio 2.0 Ratio 12/09/2016 Comp Metabolic Ppw396 Osmo 280 mOsmo 12/09/2016 Cbc With Differential [...] 31.3 pg 12/09/2016 Cbc With Differential Ord2 [place]% 6.5 % 12/09/2016 Cbc With Differential Ord2 [...] 1.84 K/ul 12/09/2016 Cbc With Differential Ord2 [place] ABS# 0.6 K/ul 12/09/2016 Cbc With Differential Ord2 Eos ABS# 0.1 K/ul 12/09/2016 Cbc With Differential Ord2 Baso ABS# 0.1 K/ul 12/09/2016 Tsh Ord6 hTSH II 1.19 uIU/mL 09/02/2016 Free T4 Lxr378 FREE T4 0.97 ng/dL 09/02/2016 Comp Metabolic Usu809 NA 137 mEq/L 06/01/2016 Comp Metabolic Czg692 K 4.1 mEq/L 06/01/2016 Comp Metabolic Dwo566 CL 104 mEq/L 06/01/2016 Comp Metabolic Jgn896 CO2 25.0 mEq/L 06/01/2016 Comp Metabolic Adf062 ANION GAP 12 06/01/2016 Comp Metabolic Der549 GLUCOSE 108 mg/dL 06/01/2016 Comp Metabolic Whd629 Creat 0.8 mg/dL 06/01/2016 Comp Metabolic Uqb647 eGFR 80 ml/min/1.73m2 06/01/2016 Comp Metabolic Qnb634 BUN 15 mg/dL 06/01/2016 Comp Metabolic Liu323 B/C Ratio 20.0 Ratio 06/01/2016 Comp Metabolic Tjg451 CALCIUM 9.1 mg/dL 06/01/2016 Comp Metabolic Ido041 ALK PHOS 89 U/L 06/01/2016 Comp Metabolic Bmn748 AST(SGOT) 25 U/L 06/01/2016 Comp Metabolic Btm403 ALT(SGPT) 20 U/L 06/01/2016 Comp Metabolic Pev628 BILI T 0.3 mg/dL 06/01/2016 Comp Metabolic Iuc653 ALBUMIN 4.2 g/dL 06/01/2016 Comp Metabolic Yip356 TPRO 6.2 g/dL 06/01/2016 Comp Metabolic Wtq757 GLOB 2.0 g/dL 06/01/2016 Comp Metabolic Xyl374 A/G Ratio 2.1 Ratio 06/01/2016 Comp Metabolic Mua923 Osmo 275 mOsmo 06/01/2016 Free T4 Zch623 FREE T4 0.94 ng/dL 06/01/2016 Tsh Ord6 [...] 31.1 pg 06/01/2016 Cbc With Differential Ord2 [place]% 8.4 % 06/01/2016 Cbc With Differential Ord2 [...] 2.96 K/ul 06/01/2016 Cbc With Differential Ord2 [place] ABS# 0.6 K/ul 06/01/2016 Cbc With Differential [...] 31.3 pg 02/27/2016 Cbc With Differential Ord2 [place]% 10.0 % 02/27/2016 Cbc With Differential Ord2 [...] 2.28 K/ul 02/27/2016 Cbc With Differential Ord2 [place] ABS# 0.9 K/ul 02/27/2016 Cbc With Differential Ord2 Eos ABS# 0.3 K/ul 02/27/2016 Cbc With Differential Ord2 Baso ABS# 0.1 K/ul 02/27/2016 Tsh Ord6 hTSH II 0.18 uIU/mL 02/27/2016 Free T4 Bnw353 FREE T4 1.17 ng/dL 02/27/2016 Comp Metabolic Imr349 NA 135 mEq/L 02/27/2016 Comp Metabolic Gog270 K 5.2 mEq/L 02/27/2016 Comp Metabolic Vgh495 CL 102 mEq/L 02/27/2016 Comp Metabolic Zqw275 CO2 27.0 mEq/L 02/27/2016 Comp Metabolic Uaz442 ANION GAP 11 02/27/2016 Comp Metabolic Ucf131 GLUCOSE 93 mg/dL 02/27/2016 Comp Metabolic Tfr531 Creat 0.7 mg/dL 02/27/2016 Comp Metabolic Bdh630 eGFR 91 ml/min/1.73m2 02/27/2016 Comp Metabolic Oah948 BUN 14 mg/dL 02/27/2016 Comp Metabolic Gvd163 B/C Ratio 20.9 Ratio 02/27/2016 Comp Metabolic Ykj867 CALCIUM 9.4 mg/dL 02/27/2016 Comp Metabolic Qsq835 ALK PHOS 100 U/L 02/27/2016 Comp Metabolic Qkq582 AST(SGOT) 23 U/L 02/27/2016 Comp Metabolic Lra308 ALT(SGPT) 24 U/L 02/27/2016 Comp Metabolic Qjk920 BILI T 0.2 mg/dL 02/27/2016 Comp Metabolic Rfc286 ALBUMIN 4.3 g/dL 02/27/2016 Comp Metabolic Zij256 TPRO 6.3 g/dL 02/27/2016 Comp Metabolic Ulh781 GLOB 2.1 g/dL 02/27/2016 Comp Metabolic Mtw073 A/G Ratio 2.1 Ratio 02/27/2016 Comp Metabolic Lkq674 Osmo 270 mOsmo 02/27/2016 Free T4 Csg978 FREE T4 1.03 ng/dL 05/10/2015 Comp Metabolic Flf447 NA 137 mEq/L 05/10/2015 Comp Metabolic Jin399 K 4.4 mEq/L 05/10/2015 Comp Metabolic Hof077 CL 102 mEq/L 05/10/2015 Comp Metabolic Htn874 CO2 28.0 mEq/L 05/10/2015 Comp Metabolic Pdg789 ANION GAP 11 05/10/2015 Comp Metabolic Cbn410 GLUCOSE 108 mg/dL 05/10/2015 Comp Metabolic Unn020 Creat 0.7 mg/dL 05/10/2015 Comp Metabolic Lrh557 eGFR 86 ml/min/1.73m2 05/10/2015 Comp Metabolic Urk968 BUN 13 mg/dL 05/10/2015 Comp Metabolic Osa345 B/C Ratio 18.3 Ratio 05/10/2015 Comp Metabolic Bur798 CALCIUM 9.4 mg/dL 05/10/2015 Comp Metabolic Yov410 ALK PHOS 94 U/L 05/10/2015 Comp Metabolic Ttb223 AST(SGOT) 22 U/L 05/10/2015 Comp Metabolic Tpd980 ALT(SGPT) 21 U/L 05/10/2015 Comp Metabolic Gqd680 BILI T 0.3 mg/dL 05/10/2015 Comp Metabolic Wnf185 ALBUMIN 3.9 g/dL 05/10/2015 Comp Metabolic Hbm917 TPRO 6.1 g/dL 05/10/2015 Comp Metabolic Ldc024 GLOB 2.2 g/dL 05/10/2015 Comp Metabolic Wfi098 A/G Ratio 1.7 Ratio 05/10/2015 Comp Metabolic Tal968 Osmo 274 mOsmo 05/10/2015 Tsh Ord6 hTSH [...] 29.4 pg 05/10/2015 Cbc With Differential Ord2 [place]% 9.0 % 05/10/2015 Cbc With Differential Ord2 MCHC 31.8 pg 05/10/2015 Cbc With Differential Ord2 Eos% 4.7 % 05/10/2015 Cbc With Differential Ord2 Baso% 0.9 % 05/10/2015 Cbc With Differential Ord2 PLT 228 K/ul 05/10/2015 Cbc With Differential Ord2 RDW 13.3 % 05/10/2015 Cbc With Differential Ord2 Neut ABS# 2.79 K/ul 05/10/2015 Cbc With Differential Ord2 Lymph ABS# 2.14 K/ul 05/10/2015 Cbc With Differential Ord2 [place] ABS# 0.5 K/ul 05/10/2015 Cbc With Differential [...] Ord30 C/HDL 3.8 Ratio 05/10/2015 Culture Urine [id number] URINE CULTURE SEE NOTES 02/25/2015 Culture Urine [id number] Continued Results 02/25/2015 Urine Culture Ucult Complete >100,000 col/ml aerobic growth sent to ref lab 02/22/2015 Free T4 Iri527 FREE T4 1.16 ng/dL 02/11/2015 Tsh Ord6 [...] retractions 12/24/2017 None Full Exam - General 1995 Respiratory respiratory effort/rhythm Overall: normal rate 12/24/2017 [...] normal 11/18/2017 None Full Exam - General 1995 Ears/Nose/Throat lips/teeth/gingiva Overall: benign lips 11/18/2017 None [...] Procedure Codes Date THER/PROPH/DIAG INJ SC/IM CPT-4: 97986 04/07/2018 ROCEPHIN, PER 250 MG CPT-4: J0696 04/07/2018 THER/PROPH/DIAG INJ SC/IM CPT-4: 66035 04/06/2018 ROCEPHIN, PER 250 MG CPT-4: J0696 04/06/2018 THER/PROPH/DIAG INJ SC/IM CPT-4: 05701 04/05/2018 ROCEPHIN, PER 250 MG CPT-4: J0696 04/05/2018 KETOROLAC TROMETHAMINE INJ CPT-4: J1885 04/05/2018 THER/PROPH/DIAG INJ SC/IM CPT-4: 21489 04/04/2018 ROCEPHIN, PER 250 MG CPT-4: J0696 04/04/2018 KETOROLAC TROMETHAMINE INJ CPT-4: J1885 04/04/2018 URINALYSIS NONAUTO W/O SCOPE CPT-4: 11573 03/24/2018 PPPS, SUBSEQ VISIT CPT -4: G0439 12/24/2017 THER/PROPH/DIAG INJ SC/IM CPT-4: 14403 12/24/2017 TRIAMCINOLONE ACET INJ NOS CPT-4: J3301 12/24/2017 THER/PROPH/DIAG INJ SC/IM CPT-4: 14156 11/18/2017 ROCEPHIN, PER 250 MG CPT-4: J0696 11/18/2017 PRESCRIP TRANSMIT VIA ERX SY CPT-4: G8553 04/01/2017 TRIAMCINOLONE ACET INJ NOS CPT-4: J3301 03/25/2017 PPPS, SUBSEQ VISIT CPT -4: G0439 12/23/2016 THER/PROPH/DIAG INJ SC/IM CPT-4: 55019 12/08/2016 TRIAMCINOLONE ACET INJ NOS CPT-4: J3301 12/08/2016 PRESCRIP TRANSMIT VIA ERX SY CPT-4: G8553 12/08/2016 PRESCRIP TRANSMIT VIA ERX SY CPT-4: G8553 11/30/2016 URINALYSIS NONAUTO W/O SCOPE CPT-4: 86543 07/08/2016 PRESCRIP TRANSMIT VIA ERX SY CPT-4: G8553 06/01/2016 PRESCRIP TRANSMIT VIA ERX SY CPT-4: G8553 02/27/2016 THER/PROPH/DIAG INJ SC/IM CPT-4: 44218 03/01/2015 ROCEPHIN, PER 250 MG CPT-4: J0696 03/01/2015 THER/PROPH/DIAG INJ SC/IM CPT-4: 64333 02/28/2015 ROCEPHIN, PER 250 MG CPT-4: J0696 02/28/2015 THER/PROPH/DIAG INJ SC/IM CPT-4: 14640 02/27/2015 ROCEPHIN, PER 250 MG CPT-4: J0696 02/27/2015 THER/PROPH/DIAG INJ SC/IM CPT-4: 40194 02/26/2015 ROCEPHIN, PER 250 MG CPT-4: J0696 02/26/2015 THER/PROPH/DIAG INJ SC/IM CPT-4: 49257 02/25/2015 ROCEPHIN, PER 250 MG CPT-4: J0696 02/25/2015 URINALYSIS NONAUTO W/O SCOPE CPT-4: 72033 02/21/2015 Vital Signs Date Vital 04/07/2018 Blood Pressure 1: 160/80 Code : 8480-6 Heart Rate 1: 60 bpm 04/04/2018 Blood Pressure 1: 130/60 Code : 8480-6 Heart Rate 1: 78 bpm Height: Weight: 04/01/2018 Blood Pressure 1: 134/58 Code : 8480-6 BMI: 27.8 Code : 11454-4 Heart Rate 1 : 85 bpm Height: 5'3" SpO2: 96% Weight: 157 lbs 03/24/2018 Blood Pressure 1: 128/82 Code : 8480-6 BMI: 27.8 Code : 62884-7 Heart Rate 1 : 84 bpm Height: 5'3" SpO2: 97% Weight: 157 lbs 03/01/2018 Blood Pressure 1: 136/70 Code : 8480-6 BMI: 27.8 Code : 27783-7 Heart Rate 1 : 70 bpm Height: 5'3" SpO2: 96% Weight: 157 lbs 12/24/2017 Height: Weight: 11/18/2017 Blood Pressure 1: 164/74 Code : 8480-6 BMI: 27.6 Code : 63003-1 Heart Rate 1 : 70 bpm Height: 5'3" SpO2: 96% Weight: 156 lbs 11/03/2017 Blood Pressure 1: 118/72 Code : 8480-6 BMI: 27.6 Code : 34920-3 Heart Rate 1 : 82 bpm Height: 5'3" SpO2: 96% Weight: 156 lbs 09/22/2017 Blood Pressure 1: 136/68 Code : 8480-6 BMI: 27.6 Code : 36948-1 Heart Rate 1 : 70 bpm Height: 5'3" SpO2: 97% Weight: 156 lbs 04/01/2017 Blood Pressure 1: 144/82 Code : 8480-6 Heart Rate 1: 68 bpm Height: 5'3" SpO2: 97% Weight: 03/25/2017 Blood Pressure 1: 116/70 Code : 8480-6 BMI: 26.7 Code : 11577-3 Heart Rate 1 : 67 bpm Height: 5'3" SpO2: 98% Weight: 151 lbs 12/23/2016 BMI: 26.7 Code: 45771-1 Height: 5'3" Weight: 151 lbs 12/22/2016 Blood Pressure 1: 142/60 Code : 8480-6 BMI: 26.7 Code : 75712-0 Heart Rate 1 : 67 bpm Height: 5'3" SpO2: 98% Weight: 151 lbs 12/08/2016 Blood Pressure 1: 140/72 Code : 8480-6 Heart Rate 1: 72 bpm Height: 5'3" SpO2: 97% Weight: 11/30/2016 Blood Pressure 1: 128/80 Code : 8480-6 BMI: 26.7 Code : 30808-8 Heart Rate 1 : 63 bpm Height: 5'3" SpO2: 96% Weight: 151 lbs 09/28/2016 Blood Pressure 1: 130/80 Code : 8480-6 BMI: 27.1 Code : 04481-6 Heart Rate 1 : 80 bpm Height: 5'3" SpO2: 97% Weight: 153 lbs 07/06/2016 Blood Pressure 1: 162/72 Code : 8480-6 BMI: 27.6 Code : 40018-2 Heart Rate 1 : 72 bpm Height: 5'3" SpO2: 98% Weight: 156 lbs 06/01/2016 Blood Pressure 1: 122/66 Code : 8480-6 BMI: 27.5 Code : 43967-0 Heart Rate 1 : 73 bpm Height: 5'3" SpO2: 98% Weight: 155 lbs 8 oz 02/27/2016 Blood Pressure 1: 126/68 Code : 8480-6 BMI: 26.9 Code : 75108-0 Heart Rate 1 : 70 bpm Height: 5'3" SpO2: 98% Weight: 152 lbs 09/10/2015 Blood Pressure 1: 130/70 Code : 8480-6 BMI: 26.9 Code : 28142-9 Heart Rate 1 : 72 bpm Height: 5'3" SpO2: 97% Weight: 152 lbs 05/14/2015 Blood Pressure 1: 138/82 Code : 8480-6 BMI: 26.4 Code : 38640-6 Heart Rate 1 : 75 bpm Height: 5'3" SpO2: 98% Weight: 149 lbs 02/11/2015 Blood Pressure 1: 128/72 Code : 8480-6 BMI: 25.5 Code : 67379-2 Heart Rate 1 : 73 bpm Height: [...] data Encounters Encounter Performer Location Codes Date ([id number]) 97737 EST. PATIENT, LEVEL III Diagnosis: Essential (primary) hypertension[ICD10: I10] Diagnosis: Dysuria[ICD10: R30.0] Diagnosis: Nausea[ICD10: R11.0] Diagnosis: Headache[ICD10: R51] Elen Cortez MD, [facility] CPT-4: 84412 04/04/2018 [id number] EST. PATIENT, LEVEL III Diagnosis: Other acute sinusitis[ICD10: J01.80] Diagnosis: Dizziness and giddiness[ICD10: R42] Diagnosis: Dysuria[ICD10: R30.0] Diagnosis: Candidal stomatitis[ICD10: B37.0] Diagnosis: Essential (primary) hypertension[ICD10: I10] Diagnosis: Other fatigue[ICD10: R53.83] Diagnosis: Other malaise[ICD10: R53.81] Bridget Cortez MD, [facility] CPT-4 : 40757 04/01/2018 ([id number]) 85539 EST. 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 PATIENT, LEVEL IV Diagnosis: Otalgia, right ear[ICD10: H92.01] Diagnosis: Headache[ICD10: R51] Diagnosis: Other fatigue[ICD10: R53.83] Diagnosis: Abnormal findings on diagnostic imaging of other specified body structures[ICD10: R93.89] Elen Cortez MD, [facility] CPT-4: 11117 03/01/2018 [id number] EST. PATIENT, LEVEL III Diagnosis: Acute cystitis with hematuria[ICD10: N30.01] Bridget Cortez MD, [facility] CPT-4: 18244 11/18/2017 54629 EST. PATIENT, LEVEL IV Diagnosis: Other acute sinusitis[ICD10: J01.80] Diagnosis: Otalgia, right ear[ICD10: H92.01] Bridget Cortez MD, [facility] CPT -4: 76536 11/03/2017 32174 EST. PATIENT, LEVEL III Diagnosis: Other fatigue[ICD10: R53.83] Diagnosis: Other malaise[ICD10: R53.81] Diagnosis: Pain in left knee[ICD10: M25.562] Diagnosis: Pain in right knee[ICD10: M25.561] Bridget Cortez MD, [facility] CPT-4: 75796 09/22/2017 ([id number]) 18498 EST. PATIENT, LEVEL III Diagnosis: Cough[ICD10: R05] Diagnosis: Acute bronchitis due to other specified organisms[ICD10: J20.8] Elen Cortez MD, [facility] CPT-4: 60124 04/01/2017 ([id number]) 63440 EST. PATIENT, LEVEL III Diagnosis: Otalgia, right ear[ICD10: H92.01] Diagnosis: Other allergic rhinitis[ICD10: J30.89] Shiela Cortez MD, [facility] CPT-4: 50510 03/25/2017 ([id number]) 61168 EST. PATIENT, LEVEL III Diagnosis: Benign paroxysmal vertigo, bilateral[ICD10: H81.13] Shiela Cortez MD, [facility] CPT-4: 57997 12/22/2016 ([id number]) 16875 EST. PATIENT, LEVEL IV Diagnosis: Benign paroxysmal vertigo, bilateral[ICD10: H81.13] Diagnosis: Other allergic rhinitis[ICD10: J30.89] Diagnosis: Hypothyroidism, unspecified[ICD10: E03.9] Shiela Cortez MD, [facility] CPT-4: 44250 12/08/2016 ([id number]) 15230 EST. PATIENT, LEVEL IV Diagnosis: Atrophy of thyroid (acquired)[ICD10: E03.4] Diagnosis: Essential (primary) hypertension[ICD10: I10] Diagnosis: Mixed hyperlipidemia[ICD10: E78.2] Elen Cortez MD, [facility] CPT-4: 83289 11/30/2016 22526 EST. PATIENT, LEVEL IV Diagnosis: Headache[ICD10: R51] Diagnosis: Other fatigue[ICD10: R53.83] Diagnosis: Dizziness and giddiness[ICD10: R42] Bridget Cortez MD, [facility] CPT-4: 97209 09/28/2016 03752 EST. PATIENT, LEVEL IV Diagnosis: Essential (primary) hypertension[ICD10: I10] Diagnosis: Headache[ICD10: R51] Bridget Cortez MD, [facility] CPT-4: 06731 07/06/2016 ([id number]) 58003 EST. PATIENT, LEVEL IV Diagnosis: Essential (primary) hypertension[ICD10: I10] Diagnosis: Atrophy of thyroid (acquired)[ICD10: E03.4] Diagnosis: Mixed hyperlipidemia[ICD10: E78.2] Elen Cortez MD, [facility] CPT-4: 84487 06/01/2016 33608 EST. PATIENT, LEVEL IV Diagnosis: Acute laryngopharyngitis[ICD10: J06.0] Diagnosis: Other allergic rhinitis[ICD10: J30.89] Diagnosis: Other specified hypothyroidism[ICD10: E03.8] Diagnosis: Other fatigue[ICD10: R53.83] Bridget Cortez MD, [facility] CPT-4 : 68968 02/27/2016 ([id number]) 82160 EST. PATIENT, LEVEL III Diagnosis: Essential (primary) hypertension[ICD10: I10] Diagnosis: Mixed hyperlipidemia[ICD10: E78.2] Elen Cortez MD, [facility] CPT-4: 01425 09/10/2015 ([id number]) 51072 EST. PATIENT, LEVEL IV Diagnosis: Essential (primary) hypertension[ICD10: I10] Diagnosis: Hypothyroidism, unspecified[ICD10: E03.9] Diagnosis: Unspecified osteoarthritis, unspecified site[ICD10: M19.90] Elen Cortez MD , [facility] CPT-4: 11381 05/14/2015 ([id number]) OFFICE VISIT, NEW - LEVEL 4 Diagnosis: Essential (primary) hypertension[ICD10: I10] Diagnosis: Hypothyroidism, unspecified[ICD10: E03.9] Diagnosis: Unspecified osteoarthritis, unspecified site[ICD10: M19.90] Elen Cortez MD , [facility] CPT-4: 33852 02/11/2015 Plan of Care Planned Activity Notes Codes Status Date Referral: Wan Steven Referral Completed 04/28/2018 Patient Education: Patient Medication Summary Completed 04/07/2018 Appointment: Injection 04/06/2018 Patient Education: Patient Medication Summary Completed 04/06/2018 Appointment: Injection 04/05/2018 Appointment: El[facility] Cortez [facility]el[facility] (15 min) Moderate 04/05/2018 Patient Education: Patient [...] toradol today. 04/04/2018 Appointment: El[facility] Cortez [facility]el[phone] [facility] (10 min) Simple 04/04/2018 Patient Education: Patient Medication Summary Completed 04/04/2018 Patient Education: Patient Medication Summary Completed 04/04/2018 Patient Education: Patient Medication Summary Completed 04/04/2018 Care Plan: Referral Order SNOMED-CT : [id number] Pending 04/04/2018 Visit Plan: Dysuria, dizziness, fatigue, [...] show improvement. 04/01/2018 Appointment: [facility] Velazco [facility]el[phone] [place] (15 min) Moderate 04/01/2018 Patient Education: Patient Medication Summary Completed 04/01/2018 Visit Plan: Sinusitis - Pt has acute infection - pain in face, maxillary region, Pt informed to use decongestant, RX given to patient, sinus rinses also recommended. Call if symptoms do not show improvement. Dysuria - rx for antibiotic sent to pharmacy. 03/24/2018 Appointment: El[facility] Cortez [facility]el[facility] [phone] [facility] (15 min) Moderate 03/24/2018 Patient [...] not improve. 03/01/2018 Appointment: [facility]el[phone] [facility] (15 min) Moderate 03/01/2018 Patient [...] allergy spray. 12/24/2017 Appointment: Bridget Velazco WPtel: [facility] [place] [address] - Annual Wellness Visit 12/24/2017 Patient Education: Patient Medication Summary Completed 12/24/2017 Appointment: Bridget Velazco WPtel: [address] [place] [address] (15 min) Moderate 11/30/2017 Appointment: Lab Draw [...] not improve. 11/18/2017 Appointment: Bridget Velazco WPtel: [address] [place], [place] [phone] (15 min) Moderate 11/18/2017 Patient Education: Patient Medication Summary Completed 11/18/2017 Visit Plan: Sinusitis - Pt has acute infection - pain in face, maxillary region, Pt informed to use decongestant, RX given to patient, sinus rinses also recommended. Call if symptoms do not show improvement. 11/03/2017 Appointment: Bridget Velazco WPtel: [address] [place], [place] [address] (15 min) Moderate 11/03/2017 Patient Education: [...] not improve. 09/22/2017 Appointment: Bridget Velazco WPtel: [facility]4 [facility] (15 min) Moderate 09/22/2017 Patient Education: Patient Medication Summary Completed 09/22/2017 Visit Plan: Bronchitis - acute case of bronchitis identified. Pt has been given antibiotics, breathing treatments as appropriate, and pt has been instructed to call if symptoms are not improved, or if symptoms acutely worsen. 04/01/2017 Appointment: Elen Cortez WPtel: [facility] (15 min) Moderate 04/01/2017 Patient Education: [...] allergy spray. 03/25/2017 Appointment: Shiela Srivastava WPtel: [facility]6 [phone] (10 min) Simple 03/25/2017 Appointment: Elen Cortez WPtel: [facility]5 [facility] (15 min) Moderate 03/25/2017 Patient Education: [...] care surrogate. 12/23/2016 Appointment: Bridget Velazco WPtel: [facility]0 [facility] [place] [address] - Annual Wellness Visit 12/23/2016 Patient Education: Patient Medication Summary Completed 12/23/2016 Visit Plan: Vertigo-discussed PT for vestibular exercises- patient wants to wait since symptoms are improving-continue anti histamine as directed-meclizine as needed 12/22/2016 Appointment: Shiela Srivastava WPtel: [facility]5 [phone] (30 min) Complex 12/22/2016 Patient Education: Patient [...] of control. 12/08/2016 Appointment: Shiela Srivastava WPtel: [phone] (30 min) Complex 12/08/2016 Patient Education: Patient [...] to medications. 11/30/2016 Appointment: [facility] Cortez [facility]el[phone] (15 min) Moderate 11/30/2016 Patient [...] concerns. 09/28/2016 Appointment: [facility] Velazco [facility]Ptel[phone] (30 min) Complex 09/28/2016 Patient Education: [...] concerns. 07/06/2016 Appointment: Bridget Velazco WPtel: [phone] [facility] (15 min) Moderate 07/06/2016 Patient Education: Patient [...] not improving 06/01/2016 Appointment: Elen Cortez WPtel: [phone] [facility] (15 min) Moderate 06/01/2016 Patient Education: [...] labs 02/27/2016 Appointment: Bridget Velazco WPtel: [phone] [facility] (30 min) Complex 02/27/2016 Patient Education: Patient Medication Summary Completed 02/27/2016 Patient Education: Patient Medication Summary Completed 09/27/2015 Care Plan: [facility]AMMO[facility]APHY[facility]ITAL [facility] : 55912-0 Pending 09/27/2015 Visit Plan: Hypertension - well [...] the colonoscopy 09/10/2015 Appointment: Elen Cortez WPtel: [phone] [facility] (15 min) Moderate 09/10/2015 Patient Education: Patient [...] Sanchez. 05/14/2015 Appointment: Elen Cortez WPtel: [phone] [facility] (15 min) Moderate 05/14/2015 Patient Education: Patient Medication Summary Completed 05/14/2015 Patient Education: Hypertension Completed 05/14/2015 Care Plan: Referral Order SNOMED-CT : [id number] Ordered 05/14/2015 Patient Education: Patient Medication Summary Completed 03/01/2015 Appointment: Nurse Visit 02/28/2015 Patient Education: Patient Medication Summary Completed 02/28/2015 Patient Education: Patient Medication Summary Completed 02/27/2015 Appointment: Nurse Visit 02/26/2015 Patient Education: Patient Medication Summary Completed 02/26/2015 Appointment: Injection 02/25/2015 Patient Education: Patient Medication Summary Completed 02/25/2015 Patient Education: Patient Medication Summary Completed 02/21/2015 Care Plan: URINALYSIS NONAUTO W/O SCOPE [facility] : 19222-1 Ordered 02/21/2015 Visit Plan: Hypertension - well [...] pain symptoms. 02/11/2015 Appointment: Elen Cortez WPtel: [facility] New Patient 02/11/2015 Patient Education: [...]
--- OUTSIDE RECORDS SUMMARY | 2018-06-01 12:55 | XMS REPORT | CCD ---
Author Author [facility] Organization [facility] Address [address] [place] [address] Phone Care Team Providers Care Programming Development Project Manager Name Role Phone PP Unavailable CCM Unavailable Summary Purpose Interface Exchange Insurance Providers Payer name Policy type / Coverage type Covered constitution party ID Effective Begin Date Effective End Date WPS Medicare Part B Medicare Part B [id number] Unknown [employer] Medicare Part B [id number] Unknown Family history Mother Diagnosis Age At [...] spouses - 02/11/[address]: 231986664 Never smoker 02/11/2015 Alcohol history Unknown occasionally drinks alcohol 02/11/2015 Allergies, Adverse Reactions, Alerts Substance Reaction Codes Entered Date Inactivated Date Status CODEINE RxNorm: 2670 02/11/2015 No Inactive Date Active allergy Unknown 12/23/2016 No Inactive Date Active ciprofloxacin rash, RxNorm: 94764 02/26/2015 No Inactive Date Active hydrocodone Unknown [...] ceftriaxone 500 mg solution for injection RxNorm: 4781492 Inj 04/06/2018 04/06/2018 Inactive ketorolac 60 mg/2 mL intramuscular solution RxNorm: 3339852 Milliliter(s) IM 04/05/2018 04/05/2018 Inactive ceftriaxone 500 mg solution for injection RxNorm: 9959448 Inj 04/05/2018 04/05/2018 Inactive ondansetron 4 mg disintegrating tablet RxNorm: 635749 1 Tablet(s) PO TID as needed nausea 04/04/2018 No Stop Date Active ketorolac 30 mg/mL injection solution RxNorm: 148907 2 Milliliter(s) Inj 04/04/2018 04/04/2018 Inactive ceftriaxone 500 mg solution for injection RxNorm: 1477481 Inj 04/04/2018 04/04/2018 Inactive doxycycline hyclate 100 mg tablet RxNorm: 8513722 1 Tablet(s) PO BID 04/01/2018 04/10/2018 Active nystatin 100,000 unit/mL oral suspension RxNorm: 092804 4 Milliliter(s) PO QID 04/01/2018 04/05/2018 Inactive prednisone 10 mg tablet RxNorm: 218285 1 Tablet(s) PO UD 6 pills on day 1 and 2 and then decrease by one pill every other day until prescription is done 03/24/2018 No Stop Date Active amoxicillin 500 mg capsule RxNorm: 964790 1 Capsule(s) PO TID 03/24/2018 04/02/2018 Inactive metoprolol succinate ER 50 mg tablet,extended release 24 hr RxNorm: 661367 Tablet (s) TAKE 1 TABLET BY MOUTH DAILY 03/21/2018 10/16/2018 Active PLEASE SEND REFILL REQUESTS ELECTRONICALLY!! Synthroid 88 mcg tablet RxNorm: 908759 TAKE 1 TABLET BY MOUTH DAILY 03/08/2018 08/04/2018 Active 03/07/2018 11:21:21 AM pravastatin 80 mg tablet RxNorm: 296632 Tablet(s) 1 Tablet(s) PO daily 03/01/2018 02/23/2019 Active Kenalog 40 mg/mL suspension for injection RxNorm: 3503132 Milliliter(s) Inj 12/24/2017 12/24/2017 Inactive cetirizine 10 mg tablet RxNorm: 5245326 TAKE 1 TABLET BY MOUTH DAILY 12/21/2017 07/18/2018 Active Generic For:*ZYRTEC 10 MG TABLET 12/21/2017 10:08:05 AM Synthroid 88 mcg tablet RxNorm: 480900 TAKE 1 TABLET BY MOUTH DAILY 12/07/2017 03/06/2018 Inactive 12/06/2017 11:46:49 AM Lipitor 80 mg tablet RxNorm: 890116 1 Tablet(s) PO daily 201702/28/2018 Inactive pravastatin 80 mg tablet RxNorm: 282575 1 Tablet(s) PO daily 11/29/2017 Inactive Lipitor 80 mg tablet RxNorm: 220099 1 Tablet(s) PO daily 201711/28/2017 Inactive lisinopril 20 mg tablet RxNorm: 790842 TAKE 1 TABLET BY MOUTH TWICE DAILY 11/23/2017 04/21/2018 Active Generic For:*PRINIVIL 20 MG TABLET 11/23/2017 11:29:44 AM Macrobid 100 mg capsule RxNorm: 370718 1 Capsule(s) PO BID 06/201711/25/2017 Inactive Macrobid 100 mg capsule RxNorm: 289144 1 Capsule(s) PO BID 06/201711/18/2017 Inactive Lomotil 2.5 mg-0.025 mg tablet RxNorm: 9586057 1 -2 Tablet(s) PO TID as needed 11/19/2017 11/25/2017 Inactive Lomotil 2.5 mg-0.025 mg tablet RxNorm: 3696657 1 -2 Tablet(s) PO TID as needed 11/19/2017 11/18/2017 Inactive Pyridium 200 mg tablet RxNorm: 3375003 1 Tablet(s) PO TID as needed 11/18/2017 11/22/2017 Inactive Augmentin 500 mg-125 mg tablet RxNorm: 930407 1 Tablet(s) PO TID 11/18/2017 11/27/2017 Inactive Keflex 500 mg capsule RxNorm: 030218 1 Capsule(s) PO TID 201711/09/2017 Inactive Denavir 1 % topical cream RxNorm: 251523 1 TOP TID as needed cold sores 11/01/2017 01/29/2018 Inactive Denavir 1 % topical cream RxNorm: 413283 1 TOP TID as needed cold sores 11/01/2017 10/31/2017 Inactive Synthroid 88 mcg tablet RxNorm: 787942 TAKE 1 TABLET BY MOUTH DAILY 09/29/2017 11/27/2017 Inactive 09/29/2017 12:58:07 PM pravastatin 80 mg tablet RxNorm: 178725 1 Tablet(s) PO daily 08/30/2017 Inactive pravastatin 80 mg tablet RxNorm: 296805 1 Tablet(s) PO daily 11/28/2017 Inactive Synthroid 88 mcg tablet RxNorm: 974619 TAKE 1 TABLET BY MOUTH DAILY 08/30/2017 09/28/2017 Inactive 08/30/2017 10:53:26 AM metoprolol succinate ER 50 mg tablet,extended release 24 hr RxNorm: 778112 Tablet (s) TAKE 1 TABLET BY MOUTH DAILY 08/17/2017 03/14/2018 Inactive PLEASE SEND REFILL REQUESTS ELECTRONICALLY!! lisinopril 20 mg tablet RxNorm: 213885 TAKE 1 TABLET BY MOUTH TWICE DAILY 06/18/2017 11/14/2017 Inactive Generic For:*PRINIVIL 20 MG TABLET 06/18/2017 1:31: 00 PM Synthroid 88 mcg tablet RxNorm: 484311 TAKE 1 TABLET BY MOUTH DAILY 05/24/2017 08/21/2017 Inactive 05/24/2017 2:13:21 PM cetirizine 10 mg tablet RxNorm: 2575981 1 Tablet(s) PO daily 12/12/2017 Inactive Zithromax Z-Russell 250 mg capsule RxNorm: 598018 1 Capsule(s) PO 04/02/2017 04/05/2017 Inactive Zithromax Z-Russell 250 mg tablet RxNorm: 590845 1 Tablet(s) PO 04/01/2017 Inactive Zithromax Z-Russell 250 mg capsule RxNorm: 862875 1 Capsule(s) PO 04/02/2017 04/01/2017 Inactive Zithromax Z-Russell 250 mg tablet RxNorm: 411980 1 Tablet(s) PO 04/06/2017 Inactive Ventolin HFA 90 mcg/actuation aerosol inhaler RxNorm: 437073 2 INH QID as needed - for the first 3 days inhale at least two puffs three times daily, then use as needed for shortness of breath 04/01/2017 04/30/2017 Inactive Keflex 500 mg capsule RxNorm: 753534 1 Capsule(s) PO TID 201604/01/2017 Inactive meclizine 25 mg tablet RxNorm: 251282 1 Tablet(s) PO Q6 PRN 1 Tablet(s) PO Q6 PRN 03/25/2017 No Stop Date Active dizziness meclizine 25 mg tablet RxNorm: 492504 Tablet(s) 1 Tablet(s) PO Q6 PRN 03/25/2017 03/24/2017 Inactive dizziness Kenalog 40 mg/mL suspension for injection RxNorm: 7022009 1 Milliliter(s) Inj 03/25/2017 03/25/2017 Inactive meclizine 25 mg tablet RxNorm: 214282 1 Tablet(s) PO Q6 PRN 03/24/2017 Inactive dizziness lisinopril 20 mg tablet RxNorm: 135715 1 Tablet(s) PO BID 01/1506/13/2017 Inactive metoprolol succinate ER 50 mg tablet,extended release 24 hr RxNorm: 005548 TAKE 1 TABLET BY MOUTH DAILY 01/07/20172017 Inactive Generic For:TOPROL XL 50MG TAB 01/07/2017 12:38:23 PM Synthroid 88 mcg tablet RxNorm: 496435 TAKE 1 TABLET BY MOUTH DAILY 12/25/2016 05/23/2017 Inactive 12/25/2016 9:47:08 AM Zithromax Z-Russell 250 mg tablet RxNorm: 968018 Tablet(s) PO UD 03/24/2017 Inactive meclizine 25 mg tablet RxNorm: 984168 1 Tablet(s) PO Q6 PRN 12/20/2016 Inactive dizziness Kenalog 40 mg/mL suspension for injection RxNorm: 7588161 Milliliter(s) Inj 12/08/2016 12/08/2016 Inactive meloxicam 15 mg tablet RxNorm: 529028 1 Tablet(s) PO daily 12/20/2016 Inactive cetirizine 10 mg tablet RxNorm: 7605417 1 Tablet(s) PO daily 05/16/2017 Inactive pravastatin 40 mg tablet RxNorm: 178555 1 Tablet(s) PO BID 07/201608/30/2017 Inactive Cancel 80 mg tab lisinopril 20 mg tablet RxNorm: 666861 1 Tablet(s) PO BID 08/1212/22/2016 Inactive Synthroid 88 mcg tablet RxNorm: 967160 1 Tablet(s) PO TAKE ONE (1) TABLET BY MOUTH DAILY 07/28/2016 12/24/2016 Inactive decrease dose hydralazine 25 mg tablet RxNorm: 147188 1 Tablet(s) PO TID as needed for Systolic blood pressure over 170 07/06/20162016 Inactive lisinopril 20 mg tablet RxNorm: 464443 1 Tablet(s) PO BID to replace your other lisinopril dose 07/06/2016 08/04/2016 Inactive lisinopril 10 mg tablet RxNorm: 489160 TAKE ONE TABLET BY MOUTH TWICE DAILY 06/10/2016 08/11/2016 Inactive Generic For:ZESTRIL 10 MG TABLET 06/09/2016 12:58: 50 PM triamcinolone acetonide 0.1 % topical cream RxNorm: 0930521 1 Application TOP TID as needed 06/01/2016 No Stop Date Active nystatin 100,000 unit/gram topical cream RxNorm: 452390 1 Gram(s) TOP TID as needed 06/01/2016 No Stop Date Active metoprolol succinate ER 50 mg tablet,extended release 24 hr RxNorm: 069819 1 Tablet(s) PO daily 05/26/2016 12/21/2016 Inactive cetirizine 10 mg tablet RxNorm: 3202815 1 Tablet(s) PO daily 10/18/2016 Inactive Synthroid 88 mcg tablet RxNorm: 218924 1 Tablet(s) PO TAKE ONE (1) TABLET BY MOUTH DAILY 03/06/2016 03/07/2018 Inactive Brand name only! Synthroid 88 mcg tablet RxNorm: 213288 1 Tablet(s) PO TAKE ONE (1) TABLET BY MOUTH DAILY 03/04/2016 03/05/2016 Inactive decrease dose cetirizine 10 mg tablet RxNorm: 8977711 1 Tablet(s) PO daily 03/22/2016 Inactive amoxicillin 500 mg capsule RxNorm: 887813 1 Capsule(s) PO TID 02/27/2016 03/04/2016 Inactive lisinopril 10 mg tablet RxNorm: 360405 TAKE ONE TABLET BY MOUTH TWICE DAILY 02/06/2016 06/04/2016 Inactive Generic For:ZESTRIL 10 MG TABLET 02/06/2016 12:16: 38 PM Synthroid 100 mcg tablet RxNorm: 211446 TAKE ONE (1) TABLET BY MOUTH DAILY 01/03/2016 03/03/2016 Inactive 01/03/2016 10:35:14 AM N O T I C E Last quantity doesn't match original quantity lisinopril 10 mg tablet RxNorm: 132565 1 Tablet(s) PO BID 10/0301/31/2016 Inactive Synthroid 100 mcg tablet RxNorm: 132481 1 Tablet(s) PO daily 01/02/2016 Inactive metoprolol succinate ER 50 mg tablet,extended release 24 hr RxNorm: 012690 1 Tablet(s) PO daily 10/04/2015 04/30/2016 Inactive Tylenol Arthritis 650 mg tablet,extended release RxNorm: 1345278 2 Tablet(s) PO TID 09/10/2015 No Stop Date Active metoprolol succinate ER 50 mg tablet,extended release 24 hr RxNorm: 326291 1 Tablet(s) PO daily 09/05/2015 10/03/2015 Inactive pravastatin 80 mg tablet RxNorm: 053357 1 Tablet(s) PO QHS 08/30/2015 Inactive pravastatin 40 mg tablet RxNorm: 360326 1 Tablet(s) PO BID 08/29/2015 Inactive Cancel 80 mg tab pravastatin 40 mg tablet RxNorm: 082130 1 Tablet(s) PO BID 08/19/2016 Inactive Cancel 80 mg tab lisinopril 10 mg tablet RxNorm: 947225 1 Tablet(s) PO BID 06/1308/11/2016 Inactive lisinopril 10 mg tablet RxNorm: 213569 1 Tablet(s) PO BID 06/1310/03/2015 Inactive Synthroid 100 mcg tablet RxNorm: 719026 1 Tablet(s) PO daily 10/03/2015 Inactive ceftriaxone 1 gram solution for injection RxNorm: 0376498 Inj 03/01/2015 03/01/2015 Inactive ceftriaxone 1 gram solution for injection RxNorm: 7732638 Inj 02/28/2015 02/28/2015 Inactive ceftriaxone 1 gram solution for injection RxNorm: 3790122 Inj 02/27/2015 02/27/2015 Inactive ceftriaxone 1 gram solution for injection RxNorm: 5400063 Inj 02/26/2015 02/26/2015 Inactive ceftriaxone 1 gram solution for injection RxNorm: 0268524 Inj 02/25/2015 02/25/2015 Inactive phenazopyridine 200 mg tablet RxNorm: 4695920 1 Tablet(s) PO Q8 02/21/2015 02/20/2015 Inactive Cipro 500 mg tablet RxNorm: 396190 1 Tablet(s) PO BID 201402/20/2015 Inactive phenazopyridine 200 mg tablet RxNorm: 3555636 1 Tablet(s) PO Q8 02/21/2015 02/25/2015 Inactive Cipro 500 mg tablet RxNorm: 010295 1 Tablet(s) PO BID 201402/27/2015 Inactive lisinopril 10 mg tablet RxNorm: 203468 1 Tablet(s) PO BID 02/1406/12/2015 Inactive metoprolol succinate ER 50 mg tablet,extended release 24 hr RxNorm: 837910 3/4 Tablet(s) PO daily 02/11/2015 09/04/2015 Inactive Voltaren 1 % topical gel RxNorm: 874194 2 Gram(s) TOP QID use this on affected joints up to four times daily. 02/11/2015 03/12/2015 Inactive Probiotic oral RxNorm : 6205 oral No Start Date Active aspirin 81 mg tablet RxNorm: 561329 1 Tablet(s) PO daily No Start Date Active Super B-Complex tablet RxNorm: 1 Tablet(s) PO No Start Date Active Flonase Allergy Relief 50 mcg/actuation nasal spray, suspension RxNorm: 3630135 1 [place] NASAL BID No Start Date Active Super-D3+ oral RxNorm : oral No Start Date Active Prilosec OTC 20 mg tablet,delayed release RxNorm: 035528 2 Tablet(s) PO QAM No Start Date Active Flonase Allergy Relief 50 mcg/actuation nasal spray, suspension RxNorm: 7902451 1 [place] NASAL as needed No Start Date Active Move Free Ultra 40 mg-10 mg-3.3 mg tablet RxNorm: 1 Tablet(s) PO daily No Start Date Active metoprolol tartrate 50 mg tablet RxNorm: 962366 1 Tablet(s) PO daily No Start Date 02/10/2015 Inactive lisinopril 10 mg tablet RxNorm: 995708 1 Tablet(s) PO BID No Start Date 02/13/2015 Inactive pravastatin 80 mg tablet RxNorm: 478825 1 Tablet(s) PO daily No Start Date 08/29/2015 Inactive Synthroid 100 mcg tablet RxNorm: 330089 1 Tablet(s) PO daily No Start Date 06/09/2015 Inactive lisinopril 40 mg tablet RxNorm: 904145 1 Tablet(s) PO BID No Start Date 02/28/2018 Inactive Tylenol Arthritis 650 mg tablet,extended release RxNorm: 7784842 4 Tablet(s) PO daily No Start Date 09/09/2015 Inactive Medication Administered Medication Codes Instructions Start Date Status ceftriaxone 500 mg solution for injection RxNorm: 0340529 04/06/2018 Active ceftriaxone 500 mg solution for injection RxNorm: 5524340 04/05/2018 No longer Active ketorolac 60 mg/2 mL intramuscular solution RxNorm: 6814688 Milliliter 04/05/2018 No longer Active ceftriaxone 500 mg solution for injection RxNorm: 5382842 04/04/2018 No longer Active ketorolac 30 mg/mL injection solution RxNorm: 656926 2Milliliter 04/04/2018 No longer Active Kenalog 40 mg/mL suspension for injection RxNorm: 4037338 Milliliter 12/24/2017 No longer Active Kenalog 40 mg/mL suspension for injection RxNorm: 3440721 1Milliliter 03/25/2017 No longer Active Kenalog 40 mg/mL suspension for injection RxNorm: 9915078 Milliliter 12/08/2016 No longer Active ceftriaxone 1 gram solution for injection RxNorm: 7283690 03/01/2015 No longer Active ceftriaxone 1 gram solution for injection RxNorm: 3152463 02/28/2015 No longer Active ceftriaxone 1 gram solution for injection RxNorm: 7679542 02/27/2015 No longer Active ceftriaxone 1 gram solution for injection RxNorm: 4287890 02/26/2015 No longer Active ceftriaxone 1 gram solution for injection RxNorm: 2381656 02/25/2015 No longer Active Immunizations Vaccine Codes Date Status Influenza CVX: 141 01/18/2018 completed Influenza CVX: 141 03/15/2017 completed Influenza CVX: 141 03/18/2016 completed Influenza CVX: 141 02/11/2015 completed Assessments Condition Codes Effective Dates Dysuria ICD-10: R30.0 ICD-9: 788.1 04/06/2018 Headache ICD-10: R51 ICD-9: 784.0 04/05/2018 Essential [...] Item Item Code Result Date Free T4 Tgl281 FREE T4 1.07 ng/dL 04/04/2018 Tsh Ord6 TSH (3rd IS) 1.93 uIU/mL 04/04/2018 Urine Culture Ucult Preliminary NO Growth Day 1 03/28/2018 Urine Culture Ucult Complete NO Growth Day 2 03/28/2018 Urine Culture Ucult Complete >100,000 col/ml aerobic growth sent to ref lab 11/19/2017 B12 Wgp152 B12 712.00 pg/ml 09/28/2017 C-Reactive Protein Qnt Crqnt CRP 0.1 mg/dl 09/23/2017 Comp Metabolic Ruf068 NA 139 mEq/L 09/23/2017 Comp Metabolic Hkg981 K 4.8 mEq/L 09/23/2017 Comp Metabolic Wrn356 CL 104 mEq/L 09/23/2017 Comp Metabolic Exm620 CO2 28.0 mEq/L 09/23/2017 Comp Metabolic Hwz310 ANION GAP 12 09/23/2017 Comp Metabolic Kgw800 GLUCOSE 92 mg/dL 09/23/2017 Comp Metabolic Ojz903 Creat 0.7 mg/dL 09/23/2017 Comp Metabolic Ybd844 eGFR 91 ml/min/1.73m2 09/23/2017 Comp Metabolic Ndp525 BUN 11 mg/dL 09/23/2017 Comp Metabolic Vzz672 B/C Ratio 16.4 Ratio 09/23/2017 Comp Metabolic Ceh864 CALCIUM 9.0 mg/dL 09/23/2017 Comp Metabolic Gvz876 ALK PHOS 76 U/L 09/23/2017 Comp Metabolic Awe670 AST(SGOT) 24 U/L 09/23/2017 Comp Metabolic Tzf393 ALT(SGPT) 21 U/L 09/23/2017 Comp Metabolic Noh109 BILI T 0.3 mg/dL 09/23/2017 Comp Metabolic Nka759 ALBUMIN 4.1 g/dL 09/23/2017 Comp Metabolic Yzj531 TPRO 6.2 g/dL 09/23/2017 Comp Metabolic Zyg548 GLOB 2.1 g/dL 09/23/2017 Comp Metabolic Qin010 A/G Ratio 1.9 Ratio 09/23/2017 Comp Metabolic Qdr097 Osmo 277 mOsmo 09/23/2017 Sed Rate Ord21 ESR 3 mm/hr 09/22/2017 Vitamin D 25 Oh Kvg3205 VITAMIN D, 25 HYDROXY 78.79 ng/mL Tsh [...] 97.1 fl 09/22/2017 Cbc With Differential Ord2 [place]% 10.5 % 09/22/2017 Cbc With Differential Ord2 [...] 2.37 K/ul 09/22/2017 Cbc With Differential Ord2 [place] ABS# 0.9 K/ul 09/22/2017 Cbc With Differential Ord2 Eos ABS# 0.2 K/ul 09/22/2017 Cbc With Differential Ord2 Baso ABS# 0.0 K/ul 09/22/2017 Free T4 Nox630 FREE T4 0.99 ng/dL 09/22/2017 %Hba1C Sbm099 % HbA1c 61453-6 6.0 % 12/10/2016 %Hba1C Sxv252 Gluc Ave 126 mg/dL 12/10/2016 Tsh Ord6 hTSH II 0.89 uIU/mL 12/09/2016 Free T4 Yjr122 FREE T4 0.99 ng/dL 12/09/2016 Comp Metabolic Shr055 NA 138 mEq/L 12/09/2016 Comp Metabolic Ynr440 K 5.2 mEq/L 12/09/2016 Comp Metabolic Fcf950 CL 104 mEq/L 12/09/2016 Comp Metabolic Bxy268 CO2 29.0 mEq/L 12/09/2016 Comp Metabolic Gbx033 ANION GAP 10 12/09/2016 Comp Metabolic Pzn767 GLUCOSE 135 mg/dL 12/09/2016 Comp Metabolic Etj700 Creat 0.8 mg/dL 12/09/2016 Comp Metabolic Jjn731 eGFR 79 ml/min/1.73m2 12/09/2016 Comp Metabolic Lof525 BUN 18 mg/dL 12/09/2016 Comp Metabolic Cur419 B/C Ratio 23.7 Ratio 12/09/2016 Comp Metabolic Oqm894 CALCIUM 9.5 mg/dL 12/09/2016 Comp Metabolic Tbd404 ALK PHOS 73 U/L 12/09/2016 Comp Metabolic Axk720 AST(SGOT) 24 U/L 12/09/2016 Comp Metabolic Pba606 ALT(SGPT) 20 U/L 12/09/2016 Comp Metabolic Xfp272 BILI T 0.3 mg/dL 12/09/2016 Comp Metabolic Pwi528 ALBUMIN 4.3 g/dL 12/09/2016 Comp Metabolic Edu420 TPRO 6.4 g/dL 12/09/2016 Comp Metabolic Zov365 GLOB 2.1 g/dL 12/09/2016 Comp Metabolic Mts862 A/G Ratio 2.0 Ratio 12/09/2016 Comp Metabolic Ssn287 Osmo 280 mOsmo 12/09/2016 Cbc With Differential [...] 31.3 pg 12/09/2016 Cbc With Differential Ord2 [place]% 6.5 % 12/09/2016 Cbc With Differential Ord2 [...] 1.84 K/ul 12/09/2016 Cbc With Differential Ord2 [place] ABS# 0.6 K/ul 12/09/2016 Cbc With Differential Ord2 Eos ABS# 0.1 K/ul 12/09/2016 Cbc With Differential Ord2 Baso ABS# 0.1 K/ul 12/09/2016 Tsh Ord6 hTSH II 1.19 uIU/mL 09/02/2016 Free T4 Pyw349 FREE T4 0.97 ng/dL 09/02/2016 Comp Metabolic Nup139 NA 137 mEq/L 06/01/2016 Comp Metabolic Wwz458 K 4.1 mEq/L 06/01/2016 Comp Metabolic Gaq028 CL 104 mEq/L 06/01/2016 Comp Metabolic Zcw883 CO2 25.0 mEq/L 06/01/2016 Comp Metabolic Kun973 ANION GAP 12 06/01/2016 Comp Metabolic Xvb812 GLUCOSE 108 mg/dL 06/01/2016 Comp Metabolic Hoi205 Creat 0.8 mg/dL 06/01/2016 Comp Metabolic Jpv477 eGFR 80 ml/min/1.73m2 06/01/2016 Comp Metabolic Gvv005 BUN 15 mg/dL 06/01/2016 Comp Metabolic Kll434 B/C Ratio 20.0 Ratio 06/01/2016 Comp Metabolic Xqz054 CALCIUM 9.1 mg/dL 06/01/2016 Comp Metabolic Tjc667 ALK PHOS 89 U/L 06/01/2016 Comp Metabolic Hxh212 AST(SGOT) 25 U/L 06/01/2016 Comp Metabolic Wxb957 ALT(SGPT) 20 U/L 06/01/2016 Comp Metabolic Lzy934 BILI T 0.3 mg/dL 06/01/2016 Comp Metabolic Qmf526 ALBUMIN 4.2 g/dL 06/01/2016 Comp Metabolic Mbm341 TPRO 6.2 g/dL 06/01/2016 Comp Metabolic Cbm885 GLOB 2.0 g/dL 06/01/2016 Comp Metabolic Ooy931 A/G Ratio 2.1 Ratio 06/01/2016 Comp Metabolic Mvk497 Osmo 275 mOsmo 06/01/2016 Free T4 Vfv640 FREE T4 0.94 ng/dL 06/01/2016 Tsh Ord6 [...] 31.1 pg 06/01/2016 Cbc With Differential Ord2 [place]% 8.4 % 06/01/2016 Cbc With Differential Ord2 [...] 2.96 K/ul 06/01/2016 Cbc With Differential Ord2 [place] ABS# 0.6 K/ul 06/01/2016 Cbc With Differential [...] 31.3 pg 02/27/2016 Cbc With Differential Ord2 [place]% 10.0 % 02/27/2016 Cbc With Differential Ord2 [...] 2.28 K/ul 02/27/2016 Cbc With Differential Ord2 [place] ABS# 0.9 K/ul 02/27/2016 Cbc With Differential Ord2 Eos ABS# 0.3 K/ul 02/27/2016 Cbc With Differential Ord2 Baso ABS# 0.1 K/ul 02/27/2016 Tsh Ord6 hTSH II 0.18 uIU/mL 02/27/2016 Free T4 Glu768 FREE T4 1.17 ng/dL 02/27/2016 Comp Metabolic Eev054 NA 135 mEq/L 02/27/2016 Comp Metabolic Yop475 K 5.2 mEq/L 02/27/2016 Comp Metabolic Kwb181 CL 102 mEq/L 02/27/2016 Comp Metabolic Tzy342 CO2 27.0 mEq/L 02/27/2016 Comp Metabolic Npf054 ANION GAP 11 02/27/2016 Comp Metabolic Qjl413 GLUCOSE 93 mg/dL 02/27/2016 Comp Metabolic Sqh154 Creat 0.7 mg/dL 02/27/2016 Comp Metabolic Wzz347 eGFR 91 ml/min/1.73m2 02/27/2016 Comp Metabolic Dco746 BUN 14 mg/dL 02/27/2016 Comp Metabolic Lbs755 B/C Ratio 20.9 Ratio 02/27/2016 Comp Metabolic Kjm148 CALCIUM 9.4 mg/dL 02/27/2016 Comp Metabolic Yez491 ALK PHOS 100 U/L 02/27/2016 Comp Metabolic Pcv322 AST(SGOT) 23 U/L 02/27/2016 Comp Metabolic Ddm183 ALT(SGPT) 24 U/L 02/27/2016 Comp Metabolic Tmm690 BILI T 0.2 mg/dL 02/27/2016 Comp Metabolic Kqa782 ALBUMIN 4.3 g/dL 02/27/2016 Comp Metabolic Bxq531 TPRO 6.3 g/dL 02/27/2016 Comp Metabolic Ngj277 GLOB 2.1 g/dL 02/27/2016 Comp Metabolic Alb372 A/G Ratio 2.1 Ratio 02/27/2016 Comp Metabolic Oti952 Osmo 270 mOsmo 02/27/2016 Free T4 Mvx889 FREE T4 1.03 ng/dL 05/10/2015 Comp Metabolic Ody528 NA 137 mEq/L 05/10/2015 Comp Metabolic Unk308 K 4.4 mEq/L 05/10/2015 Comp Metabolic Xvv932 CL 102 mEq/L 05/10/2015 Comp Metabolic Nit194 CO2 28.0 mEq/L 05/10/2015 Comp Metabolic Zmj169 ANION GAP 11 05/10/2015 Comp Metabolic Bop800 GLUCOSE 108 mg/dL 05/10/2015 Comp Metabolic Rra620 Creat 0.7 mg/dL 05/10/2015 Comp Metabolic Vmw357 eGFR 86 ml/min/1.73m2 05/10/2015 Comp Metabolic Ghx864 BUN 13 mg/dL 05/10/2015 Comp Metabolic Ptn383 B/C Ratio 18.3 Ratio 05/10/2015 Comp Metabolic Unt500 CALCIUM 9.4 mg/dL 05/10/2015 Comp Metabolic Fng252 ALK PHOS 94 U/L 05/10/2015 Comp Metabolic Xpu700 AST(SGOT) 22 U/L 05/10/2015 Comp Metabolic Vpk987 ALT(SGPT) 21 U/L 05/10/2015 Comp Metabolic Zsv207 BILI T 0.3 mg/dL 05/10/2015 Comp Metabolic Wnu539 ALBUMIN 3.9 g/dL 05/10/2015 Comp Metabolic Aqe648 TPRO 6.1 g/dL 05/10/2015 Comp Metabolic Qlv313 GLOB 2.2 g/dL 05/10/2015 Comp Metabolic Ncq033 A/G Ratio 1.7 Ratio 05/10/2015 Comp Metabolic Qyb297 Osmo 274 mOsmo 05/10/2015 Tsh Ord6 hTSH [...] 29.4 pg 05/10/2015 Cbc With Differential Ord2 [place]% 9.0 % 05/10/2015 Cbc With Differential Ord2 [...] 2.14 K/ul 05/10/2015 Cbc With Differential Ord2 [place] ABS# 0.5 K/ul 05/10/2015 Cbc With Differential [...] Ord30 C/HDL 3.8 Ratio 05/10/2015 Culture Urine [id number] URINE CULTURE SEE NOTES 02/25/2015 Culture Urine [id number] Continued Results 02/25/2015 Urine Culture Ucult Complete >100,000 col/ml aerobic growth sent to ref lab 02/22/2015 Free T4 Tvv097 FREE T4 1.16 ng/dL 02/11/2015 Tsh Ord6 [...] Procedure Codes Date THER/PROPH/DIAG INJ SC/IM CPT-4: 60521 04/06/2018 ROCEPHIN, PER 250 MG CPT-4: J0696 04/06/2018 THER/PROPH/DIAG INJ SC/IM CPT-4: 89087 04/05/2018 ROCEPHIN, PER 250 MG CPT-4: J0696 04/05/2018 KETOROLAC TROMETHAMINE INJ CPT-4: J1885 04/05/2018 THER/PROPH/DIAG INJ SC/IM CPT-4: 87947 04/04/2018 ROCEPHIN, PER 250 MG CPT-4: J0696 04/04/2018 KETOROLAC TROMETHAMINE INJ CPT-4: J1885 04/04/2018 URINALYSIS NONAUTO W/O SCOPE CPT-4: 38040 03/24/2018 PPPS, SUBSEQ VISIT CPT -4: G0439 12/24/2017 THER/PROPH/DIAG INJ SC/IM CPT-4: 06803 12/24/2017 TRIAMCINOLONE ACET INJ NOS CPT-4: J3301 12/24/2017 THER/PROPH/DIAG INJ SC/IM CPT-4: 28034 11/18/2017 ROCEPHIN, PER 250 MG CPT-4: J0696 11/18/2017 PRESCRIP TRANSMIT VIA ERX SY CPT-4: G8553 04/01/2017 TRIAMCINOLONE ACET INJ NOS CPT-4: J3301 03/25/2017 PPPS, SUBSEQ VISIT CPT -4: G0439 12/23/2016 THER/PROPH/DIAG INJ SC/IM CPT-4: 34160 12/08/2016 TRIAMCINOLONE ACET INJ NOS CPT-4: J3301 12/08/2016 PRESCRIP TRANSMIT VIA ERX SY CPT-4: G8553 12/08/2016 PRESCRIP TRANSMIT VIA ERX SY CPT-4: G8553 11/30/2016 URINALYSIS NONAUTO W/O SCOPE CPT-4: 82062 07/08/2016 PRESCRIP TRANSMIT VIA ERX SY CPT-4: G8553 06/01/2016 PRESCRIP TRANSMIT VIA ERX SY CPT-4: G8553 02/27/2016 THER/PROPH/DIAG INJ SC/IM CPT-4: 19606 03/01/2015 ROCEPHIN, PER 250 MG CPT-4: J0696 03/01/2015 THER/PROPH/DIAG INJ SC/IM CPT-4: 40206 02/28/2015 ROCEPHIN, PER 250 MG CPT-4: J0696 02/28/2015 THER/PROPH/DIAG INJ SC/IM CPT-4: 69909 02/27/2015 ROCEPHIN, PER 250 MG CPT-4: J0696 02/27/2015 THER/PROPH/DIAG INJ SC/IM CPT-4: 96349 02/26/2015 ROCEPHIN, PER 250 MG CPT-4: J0696 02/26/2015 THER/PROPH/DIAG INJ SC/IM CPT-4: 55601 02/25/2015 ROCEPHIN, PER 250 MG CPT-4: J0696 02/25/2015 URINALYSIS NONAUTO W/O SCOPE CPT-4: 28921 02/21/2015 Vital Signs Date Vital 04/04/2018 Blood Pressure 1: 130/60 Code : 8480-6 Heart Rate 1: 78 bpm Height: Weight: 04/01/2018 Blood Pressure 1: 134/58 Code : 8480-6 BMI: 27.8 Code : 62073-2 Heart Rate 1 : 85 bpm Height: 5'3" SpO2: 96% Weight: 157 lbs 03/24/2018 Blood Pressure 1: 128/82 Code : 8480-6 BMI: 27.8 Code : 78563-4 Heart Rate 1 : 84 bpm Height: 5'3" SpO2: 97% Weight: 157 lbs 03/01/2018 Blood Pressure 1: 136/70 Code : 8480-6 BMI: 27.8 Code : 72126-5 Heart Rate 1 : 70 bpm Height: 5'3" SpO2: 96% Weight: 157 lbs 12/24/2017 Height: Weight: 11/18/2017 Blood Pressure 1: 164/74 Code : 8480-6 BMI: 27.6 Code : 32799-5 Heart Rate 1 : 70 bpm Height: 5'3" SpO2: 96% Weight: 156 lbs 11/03/2017 Blood Pressure 1: 118/72 Code : 8480-6 BMI: 27.6 Code : 69339-1 Heart Rate 1 : 82 bpm Height: 5'3" SpO2: 96% Weight: 156 lbs 09/22/2017 Blood Pressure 1: 136/68 Code : 8480-6 BMI: 27.6 Code : 74714-4 Heart Rate 1 : 70 bpm Height: 5'3" SpO2: 97% Weight: 156 lbs 04/01/2017 Blood Pressure 1: 144/82 Code : 8480-6 Heart Rate 1: 68 bpm Height: 5'3" SpO2: 97% Weight: 03/25/2017 Blood Pressure 1: 116/70 Code : 8480-6 BMI: 26.7 Code : 85924-7 Heart Rate 1 : 67 bpm Height: 5'3" SpO2: 98% Weight: 151 lbs 12/23/2016 BMI: 26.7 Code: 52242-4 Height: 5'3" Weight: 151 lbs 12/22/2016 Blood Pressure 1: 142/60 Code : 8480-6 BMI: 26.7 Code : 73980-6 Heart Rate 1 : 67 bpm Height: 5'3" SpO2: 98% Weight: 151 lbs 12/08/2016 Blood Pressure 1: 140/72 Code : 8480-6 Heart Rate 1: 72 bpm Height: 5'3" SpO2: 97% Weight: 11/30/2016 Blood Pressure 1: 128/80 Code : 8480-6 BMI: 26.7 Code : 22272-9 Heart Rate 1 : 63 bpm Height: 5'3" SpO2: 96% Weight: 151 lbs 09/28/2016 Blood Pressure 1: 130/80 Code : 8480-6 BMI: 27.1 Code : 00391-9 Heart Rate 1 : 80 bpm Height: 5'3" SpO2: 97% Weight: 153 lbs 07/06/2016 Blood Pressure 1: 162/72 Code : 8480-6 BMI: 27.6 Code : 07338-9 Heart Rate 1 : 72 bpm Height: 5'3" SpO2: 98% Weight: 156 lbs 06/01/2016 Blood Pressure 1: 122/66 Code : 8480-6 BMI: 27.5 Code : 18106-6 Heart Rate 1 : 73 bpm Height: 5'3" SpO2: 98% Weight: 155 lbs 8 oz 02/27/2016 Blood Pressure 1: 126/68 Code : 8480-6 BMI: 26.9 Code : 99164-3 Heart Rate 1 : 70 bpm Height: 5'3" SpO2: 98% Weight: 152 lbs 09/10/2015 Blood Pressure 1: 130/70 Code : 8480-6 BMI: 26.9 Code : 93300-4 Heart Rate 1 : 72 bpm Height: 5'3" SpO2: 97% Weight: 152 lbs 05/14/2015 Blood Pressure 1: 138/82 Code : 8480-6 BMI: 26.4 Code : 07756-9 Heart Rate 1 : 75 bpm Height: 5'3" SpO2: 98% Weight: 149 lbs 02/11/2015 Blood Pressure 1: 128/72 Code : 8480-6 BMI: 25.5 Code : 49195-1 Heart Rate 1 : 73 bpm Height: [...] Annual Medicare Wellness Exam Hours of Sleep 12-2712/23/2016 None Annual Medicare Wellness Exam Interaction with [...] data Encounters Encounter Performer Location Codes Date ([id number]) 23925 EST. PATIENT, LEVEL III Diagnosis: Essential (primary) hypertension[ICD10: I10] Diagnosis: Dysuria[ICD10: R30.0] Diagnosis: Nausea[ICD10: R11.0] Diagnosis: Headache[ICD10: R51] Elen Cortez MD, [facility] CPT-4: 02914 04/04/2018 [id number] EST. PATIENT, LEVEL III Diagnosis: Other acute sinusitis[ICD10: J01.80] Diagnosis: Dizziness and giddiness[ICD10: R42] Diagnosis: Dysuria[ICD10: R30.0] Diagnosis: Candidal stomatitis[ICD10: B37.0] Diagnosis: Essential (primary) hypertension[ICD10: I10] Diagnosis: Other fatigue[ICD10: R53.83] Diagnosis: Other malaise[ICD10: R53.81] Bridget Cortez MD, [facility] CPT-4 : 64932 04/01/2018 [id number]) 93315 EST. 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 PATIENT, LEVEL IV Diagnosis: Otalgia, right ear[ICD10: H92.01] Diagnosis: Headache[ICD10: R51] Diagnosis: Other fatigue[ICD10: R53.83] Diagnosis: Abnormal findings on diagnostic imaging of other specified body structures[ICD10: R93.89] Elen Cortez MD, [facility] CPT-4: 57860 03/01/2018 67087 EST. PATIENT, LEVEL III Diagnosis: Acute cystitis with hematuria[ICD10: N30.01] Bridget Cortez MD, [facility] CPT-4: 64486 11/18/2017 91246 EST. PATIENT, LEVEL IV Diagnosis: Other acute sinusitis[ICD10: J01.80] Diagnosis: Otalgia, right ear[ICD10: H92.01] Bridget Cortez MD, [facility] CPT -4: 91376 11/03/2017 32678 EST. PATIENT, LEVEL III Diagnosis: Other fatigue[ICD10: R53.83] Diagnosis: Other malaise[ICD10: R53.81] Diagnosis: Pain in left knee[ICD10: M25.562] Diagnosis: Pain in right knee[ICD10: M25.561] Bridget Cortez MD, [facility] CPT-4: 37604 09/22/2017 ([id number]) 84204 EST. PATIENT, LEVEL III Diagnosis: Cough[ICD10: R05] Diagnosis: Acute bronchitis due to other specified organisms[ICD10: J20.8] Elen Cortez MD, [facility] CPT-4: 30768 04/01/2017 ([id number]) 67313 EST. PATIENT, LEVEL III Diagnosis: Otalgia, right ear[ICD10: H92.01] Diagnosis: Other allergic rhinitis[ICD10: J30.89] Shiela Cortez MD, [facility] CPT-4: 19631 03/25/2017 ([id number]) 60206 EST. PATIENT, LEVEL III Diagnosis: Benign paroxysmal vertigo, bilateral[ICD10: H81.13] Shiela Cortez MD, [facility] CPT-4: 79622 12/22/2016 ([id number]) 17133 EST. PATIENT, LEVEL IV Diagnosis: Benign paroxysmal vertigo, bilateral[ICD10: H81.13] Diagnosis: Other allergic rhinitis[ICD10: J30.89] Diagnosis: Hypothyroidism, unspecified[ICD10: E03.9] Shiela Cortez MD, [facility] CPT-4: 37485 12/08/2016 ([id number]) 33093 EST. PATIENT, LEVEL IV Diagnosis: Atrophy of thyroid (acquired)[ICD10: E03.4] Diagnosis: Essential (primary) hypertension[ICD10: I10] Diagnosis: Mixed hyperlipidemia[ICD10: E78.2] Elen Cortez MD, [facility] CPT-4: 27951 11/30/2016 14877 EST. PATIENT, LEVEL IV Diagnosis: Headache[ICD10: R51] Diagnosis: Other fatigue[ICD10: R53.83] Diagnosis: Dizziness and giddiness[ICD10: R42] Bridget Cortez MD, [facility] CPT-4: 76807 09/28/2016 70214 EST. PATIENT, LEVEL IV Diagnosis: Essential (primary) hypertension[ICD10: I10] Diagnosis: Headache[ICD10: R51] Bridget Cortez MD, [facility] CPT-4: 64888 07/06/2016 ([id number]) 33408 EST. PATIENT, LEVEL IV Diagnosis: Essential (primary) hypertension[ICD10: I10] Diagnosis: Atrophy of thyroid (acquired)[ICD10: E03.4] Diagnosis: Mixed hyperlipidemia[ICD10: E78.2] Elen Cortez MD, [facility] CPT-4: 97983 06/01/2016 86041 EST. PATIENT, LEVEL IV Diagnosis: Acute laryngopharyngitis[ICD10: J06.0] Diagnosis: Other allergic rhinitis[ICD10: J30.89] Diagnosis: Other specified hypothyroidism[ICD10: E03.8] Diagnosis: Other fatigue[ICD10: R53.83] [facility] CPT-4 : 14266 02/27/2016 ([id number]) 64793 EST. PATIENT, LEVEL III Diagnosis: Essential (primary) hypertension[ICD10: I10] Diagnosis: Mixed hyperlipidemia[ICD10: E78.2] [facility] CPT-4: 51199 09/10/2015 ([id number]) 86291 EST. PATIENT, LEVEL IV Diagnosis: Essential (primary) hypertension[ICD10: I10] Diagnosis: Hypothyroidism, unspecified[ICD10: E03.9] Diagnosis: Unspecified osteoarthritis, unspecified site[ICD10: M19.90] [facility] CPT-4: 06685 05/14/2015 ([id number]) OFFICE VISIT, NEW - LEVEL 4 Diagnosis: Essential (primary) hypertension[ICD10: I10] Diagnosis: Hypothyroidism, unspecified[ICD10: E03.9] Diagnosis: Unspecified osteoarthritis, unspecified site[ICD10: M19.90] Elen Cortez MD , [facility] CPT-4: 65088 02/11/2015 Plan of Care Planned Activity Notes Codes Status Date Referral: Wan Steven Referral Completed 04/28/2018 Patient Education: Patient Medication Summary Completed 04/06/2018 Appointment: Injection 04/05/2018 Appointment: Elen Cortez WPtel: [address] [place], [place] [address] (15 min) Moderate 04/05/2018 Patient Education: Patient [...] toradol today. 04/04/2018 Appointment: [facility] ([facility] min) Simple 04/04/2018 Patient Education: Patient Medication Summary Completed 04/04/2018 Patient Education: Patient Medication Summary Completed 04/04/2018 Patient Education: Patient Medication Summary Completed 04/04/2018 Care Plan: Referral Order SNOMED-CT : [id number] Pending 04/04/2018 Visit Plan: Dysuria, dizziness, fatigue, malaise - discussed with Dr. Coretz - will send for outpatient fluids and [...] improvement. 04/01/2018 Appointment: Br[facility] Velazco [facility]el[phone] [place] ([facility] [...] to pharmacy. 03/24/2018 App[facility]ment[phone] [facility] (15 min) Moderate 03/24/2018 Patient Education: [...] improve. 03/01/2018 Appointment: [phone] [facility] (15 min) Moderate 03/01/2018 Patient Education: [...] spray. 12/24/2017 Appointment: Bridget Velazco [facility]Ptel[phone] [facility] [place] [facility] - Annual Wellness Visit 12/24/2017 Patient Education: Patient Medication Summary Completed 12/24/2017 Appointment: Bridget Velazco WPtel[phone] [facility] [place] (15 min) Moderate 11/30/2017 Appointment: Lab Draw [...] improve. 11/18/2017 Appointment: Bridget Velazco WPtel: [phone] [facility] (15 min) Moderate 11/18/2017 Patient Education: Patient Medication Summary Completed 11/18/2017 Visit Plan: Sinusitis - Pt has acute infection - pain in face, maxillary region, Pt informed to use decongestant, RX given to patient, sinus rinses also recommended. Call if symptoms do not show improvement. 11/03/2017 Appointment: Bridget Velazco WPtel: [phone] [facility] (15 min) Moderate 11/03/2017 Patient Education: [...] Velazco WPtel: [facility] (15 min) Moderate 09/22/2017 Patient Education: Patient Medication Summary Completed 09/22/2017 Visit Plan: Bronchitis - acute case of bronchitis identified. Pt has been given antibiotics, breathing treatments as appropriate, and pt has been instructed to call if symptoms are not improved, or if symptoms acutely worsen. 04/01/2017 Appointment: Elen Cortez WPtel: [phone] [facility] (15 min) Moderate 04/01/2017 Patient Education: Patient [...] Srivastava WPtel: [phone] (10 min) Simple 03/25/2017 Appointment: Elen Cortez WPtel: [facility] [place] [phone] (15 min) Moderate 03/25/2017 Patient Education: Patient [...] care surrogate. 12/23/2016 Appointment: Bridget Velazco WPtel: [facility] [facility] - Annual Wellness Visit 12/23/2016 Patient Education: Patient Medication Summary Completed 12/23/2016 Visit Plan: Vertigo-discussed PT for vestibular exercises- patient wants to wait since symptoms are improving-continue anti histamine as directed-meclizine as needed 12/22/2016 Appointment: Shiela Srivastava WPtel: [phone] (30 min) Complex 12/22/2016 Patient Education: [...] of control. 12/08/2016 Appointment: Shiela Srivastava WPtel: [facility] [phone] (30 min) Complex 12/08/2016 Patient Education: Patient [...] medications. 11/30/2016 Appointment: [phone] (15 min) Moderate 11/30/2016 Patient Education: [...] concerns. 09/28/2016 Appointment: Bridget Velazco [facility]el: [phone] [...] concerns. 07/06/2016 Appointment: Bridget Velazco WPtel: [phone] [place] ([facility] [...] improving 06/01/2016 Appointment: [phone] (15 min) Moderate 06/01/2016 Patient Education: [...] labs 02/27/2016 Appointment: Bridget Velazco WPtel: [phone] [facility] [place] (30 min) Complex 02/27/2016 Patient Education: Patient Medication Summary Completed 02/27/2016 Patient Education: Patient Medication Summary Completed 09/27/2015 Care Plan: [facility]CRE[facility]MO[facility]APHYDIGITAL [facility] 23717-4 Pending 09/27/2015 Visit Plan: Hypertension - well [...] the colonoscopy 09/10/2015 Appointment: Elen Cortez WPtel: [facility] (15 min) Moderate 09/10/2015 Patient Education: [...] Cortez WPtel[facility] (15 min) Moderate 05/14/2015 Patient Education: Patient Medication Summary Completed 05/14/2015 Patient Education: Hypertension Completed 05/14/2015 Care Plan: Referral Order SNOMED-CT : [id number] Ordered 05/14/2015 Patient Education: Patient Medication Summary Completed 03/01/2015 Appointment: Nurse Visit 02/28/2015 Patient Education: Patient Medication Summary Completed 02/28/2015 Patient Education: Patient Medication Summary Completed 02/27/2015 Appointment: Nurse Visit 02/26/2015 Patient Education: Patient Medication Summary Completed 02/26/2015 Appointment: Injection 02/25/2015 Patient Education: Patient Medication Summary Completed 02/25/2015 Patient Education: Patient Medication Summary Completed 02/21/2015 Care Plan: URINALYSIS NONAUTO W/O [facility] : 93962-2 Ordered 02/21/2015 Visit Plan: Hypertension - well [...] pain symptoms. 02/11/2015 Appointment: Elen Cortez WPtel: [address] [place], [place] [address] New Patient 02/11/2015 Patient Education: Patient Medication [...]
--- OUTSIDE RECORDS SUMMARY | 2018-06-01 12:57 | XMS REPORT | CCD ---
Author Author [facility]en [facility] Organization [facility] Address [address] [place] [address] Phone Care Team Providers Care Computer Systems Consultant Name Role Phone PP Unavailable CCM Unavailable Summary Purpose Interface Exchange Insurance Providers Payer name Policy type / Coverage type Covered alliance party ID Effective Begin Date Effective End Date WPS Medicare Part B Medicare Part B [id number] Unknown [employer] Insurance Medicare Part B [id number] Unknown Family history Mother Diagnosis Age At [...] spouses - 02/11/[address]: 548809124 Never smoker 02/11/2015 Alcohol history Unknown occasionally drinks alcohol 02/11/2015 Allergies, Adverse Reactions, Alerts Substance Reaction Codes Entered Date Inactivated Date Status CODEINE RxNorm: 2670 02/11/2015 No Inactive Date Active allergy Unknown 12/23/2016 No Inactive Date Active ciprofloxacin rash, RxNorm: 50070 02/26/2015 No Inactive Date Active hydrocodone Unknown [...] Start Date Stop Date Status Fill Instructions ketorolac 60 mg/2 mL intramuscular solution RxNorm: 2141262 Milliliter(s) IM 04/05/2018 04/05/2018 Inactive ceftriaxone 500 mg solution for injection RxNorm: 3213865 Inj 04/05/2018 04/05/2018 Inactive ondansetron 4 mg disintegrating tablet RxNorm: 633205 1 Tablet(s) PO TID as needed nausea 04/04/2018 No Stop Date Active ketorolac 30 mg/mL injection solution RxNorm: 881601 2 Milliliter(s) Inj 04/04/2018 04/04/2018 Inactive ceftriaxone 500 mg solution for injection RxNorm: 9795288 Inj 04/04/2018 04/04/2018 Inactive nystatin 100,000 unit/mL oral suspension RxNorm: 361850 4 Milliliter(s) PO QID 04/01/2018 04/05/2018 Inactive doxycycline hyclate 100 mg tablet RxNorm: 4657563 1 Tablet(s) PO BID 04/01/2018 04/10/2018 Active prednisone 10 mg tablet RxNorm: 022092 1 Tablet(s) PO UD 6 pills on day 1 and 2 and then decrease by one pill every other day until prescription is done 03/24/2018 No Stop Date Active amoxicillin 500 mg capsule RxNorm: 206462 1 Capsule(s) PO TID 03/24/2018 04/02/2018 Inactive metoprolol succinate ER 50 mg tablet,extended release 24 hr RxNorm: 307986 Tablet (s) TAKE 1 TABLET BY MOUTH DAILY 03/21/2018 10/16/2018 Active PLEASE SEND REFILL REQUESTS ELECTRONICALLY!! Synthroid 88 mcg tablet RxNorm: 840563 TAKE 1 TABLET BY MOUTH DAILY 03/08/2018 08/04/2018 Active 03/07/2018 11:21:21 AM pravastatin 80 mg tablet RxNorm: 235740 Tablet(s) 1 Tablet(s) PO daily 03/01/2018 02/23/2019 Active Kenalog 40 mg/mL suspension for injection RxNorm: 4161201 Milliliter(s) Inj 12/24/2017 12/24/2017 Inactive cetirizine 10 mg tablet RxNorm: 7551253 TAKE 1 TABLET BY MOUTH DAILY 12/21/2017 07/18/2018 Active Generic For:*ZYRTEC 10 MG TABLET 12/21/2017 10:08:05 AM Synthroid 88 mcg tablet RxNorm: 883076 TAKE 1 TABLET BY MOUTH DAILY 12/07/2017 03/06/2018 Inactive 12/06/2017 11:46:49 AM Lipitor 80 mg tablet RxNorm: 527341 1 Tablet(s) PO daily 201702/28/2018 Inactive pravastatin 80 mg tablet RxNorm: 912119 1 Tablet(s) PO daily 11/29/2017 Inactive Lipitor 80 mg tablet RxNorm: 704645 1 Tablet(s) PO daily 201711/28/2017 Inactive lisinopril 20 mg tablet RxNorm: 135039 TAKE 1 TABLET BY MOUTH TWICE DAILY 11/23/2017 04/21/2018 Active Generic For:*PRINIVIL 20 MG TABLET 11/23/2017 11:29:44 AM Macrobid 100 mg capsule RxNorm: 913050 1 Capsule(s) PO BID 06/201711/25/2017 Inactive Macrobid 100 mg capsule RxNorm: 603923 1 Capsule(s) PO BID 06/201711/18/2017 Inactive Lomotil 2.5 mg-0.025 mg tablet RxNorm: 8700012 1 -2 Tablet(s) PO TID as needed 11/19/2017 11/25/2017 Inactive Lomotil 2.5 mg-0.025 mg tablet RxNorm: 8391729 1 -2 Tablet(s) PO TID as needed 11/19/2017 11/18/2017 Inactive Pyridium 200 mg tablet RxNorm: 0407299 1 Tablet(s) PO TID as needed 11/18/2017 11/22/2017 Inactive Augmentin 500 mg-125 mg tablet RxNorm: 235544 1 Tablet(s) PO TID 11/18/2017 11/27/2017 Inactive Keflex 500 mg capsule RxNorm: 642576 1 Capsule(s) PO TID 201711/09/2017 Inactive Denavir 1 % topical cream RxNorm: 227291 1 TOP TID as needed cold sores 11/01/2017 01/29/2018 Inactive Denavir 1 % topical cream RxNorm: 295193 1 TOP TID as needed cold sores 11/01/2017 10/31/2017 Inactive Synthroid 88 mcg tablet RxNorm: 097193 TAKE 1 TABLET BY MOUTH DAILY 09/29/2017 11/27/2017 Inactive 09/29/2017 12:58:07 PM pravastatin 80 mg tablet RxNorm: 190968 1 Tablet(s) PO daily 08/30/2017 Inactive pravastatin 80 mg tablet RxNorm: 991150 1 Tablet(s) PO daily 11/28/2017 Inactive Synthroid 88 mcg tablet RxNorm: 818277 TAKE 1 TABLET BY MOUTH DAILY 08/30/2017 09/28/2017 Inactive 08/30/2017 10:53:26 AM metoprolol succinate ER 50 mg tablet,extended release 24 hr RxNorm: 860364 Tablet (s) TAKE 1 TABLET BY MOUTH DAILY 08/17/2017 03/14/2018 Inactive PLEASE SEND REFILL REQUESTS ELECTRONICALLY!! lisinopril 20 mg tablet RxNorm: 032701 TAKE 1 TABLET BY MOUTH TWICE DAILY 06/18/2017 11/14/2017 Inactive Generic For:*PRINIVIL 20 MG TABLET 06/18/2017 1:31: 00 PM Synthroid 88 mcg tablet RxNorm: 482095 TAKE 1 TABLET BY MOUTH DAILY 05/24/2017 08/21/2017 Inactive 05/24/2017 2:13:21 PM cetirizine 10 mg tablet RxNorm: 4370626 1 Tablet(s) PO daily 12/12/2017 Inactive Zithromax Z-Russell 250 mg capsule RxNorm: 897806 1 Capsule(s) PO 04/02/2017 04/05/2017 Inactive Zithromax Z-Russell 250 mg tablet RxNorm: 871308 1 Tablet(s) PO 04/01/2017 Inactive Zithromax Z-Russell 250 mg capsule RxNorm: 584059 1 Capsule(s) PO 04/02/2017 04/01/2017 Inactive Zithromax Z-Russell 250 mg tablet RxNorm: 597032 1 Tablet(s) PO 04/06/2017 Inactive Ventolin HFA 90 mcg/actuation aerosol inhaler RxNorm: 249814 2 INH QID as needed - for the first 3 days inhale at least two puffs three times daily, then use as needed for shortness of breath 04/01/2017 04/30/2017 Inactive Keflex 500 mg capsule RxNorm: 716965 1 Capsule(s) PO TID 201604/01/2017 Inactive meclizine 25 mg tablet RxNorm: 816917 1 Tablet(s) PO Q6 PRN 1 Tablet(s) PO Q6 PRN 03/25/2017 No Stop Date Active dizziness meclizine 25 mg tablet RxNorm: 487910 Tablet(s) 1 Tablet(s) PO Q6 PRN 03/25/2017 03/24/2017 Inactive dizziness Kenalog 40 mg/mL suspension for injection RxNorm: 8080079 1 Milliliter(s) Inj 03/25/2017 03/25/2017 Inactive meclizine 25 mg tablet RxNorm: 044390 1 Tablet(s) PO Q6 PRN 03/24/2017 Inactive dizziness lisinopril 20 mg tablet RxNorm: 918246 1 Tablet(s) PO BID 01/1506/13/2017 Inactive metoprolol succinate ER 50 mg tablet,extended release 24 hr RxNorm: 912598 TAKE 1 TABLET BY MOUTH DAILY 01/07/20172017 Inactive Generic For:TOPROL XL 50MG TAB 01/07/2017 12:38:23 PM Synthroid 88 mcg tablet RxNorm: 722384 TAKE 1 TABLET BY MOUTH DAILY 12/25/2016 05/23/2017 Inactive 12/25/2016 9:47:08 AM Zithromax Z-Russell 250 mg tablet RxNorm: 656897 Tablet(s) PO UD 03/24/2017 Inactive meclizine 25 mg tablet RxNorm: 012966 1 Tablet(s) PO Q6 PRN 12/20/2016 Inactive dizziness Kenalog 40 mg/mL suspension for injection RxNorm: 4569237 Milliliter(s) Inj 12/08/2016 12/08/2016 Inactive meloxicam 15 mg tablet RxNorm: 359738 1 Tablet(s) PO daily 12/20/2016 Inactive cetirizine 10 mg tablet RxNorm: 2054345 1 Tablet(s) PO daily 05/16/2017 Inactive pravastatin 40 mg tablet RxNorm: 514979 1 Tablet(s) PO BID 07/201608/30/2017 Inactive Cancel 80 mg tab lisinopril 20 mg tablet RxNorm: 527178 1 Tablet(s) PO BID 08/1212/22/2016 Inactive Synthroid 88 mcg tablet RxNorm: 198001 1 Tablet(s) PO TAKE ONE (1) TABLET BY MOUTH DAILY 07/28/2016 12/24/2016 Inactive decrease dose hydralazine 25 mg tablet RxNorm: 050899 1 Tablet(s) PO TID as needed for Systolic blood pressure over 170 07/06/20162016 Inactive lisinopril 20 mg tablet RxNorm: 568469 1 Tablet(s) PO BID to replace your other lisinopril dose 07/06/2016 08/04/2016 Inactive lisinopril 10 mg tablet RxNorm: 879689 TAKE ONE TABLET BY MOUTH TWICE DAILY 06/10/2016 08/11/2016 Inactive Generic For:ZESTRIL 10 MG TABLET 06/09/2016 12:58: 50 PM triamcinolone acetonide 0.1 % topical cream RxNorm: 2043386 1 Application TOP TID as needed 06/01/2016 No Stop Date Active nystatin 100,000 unit/gram topical cream RxNorm: 064747 1 Gram(s) TOP TID as needed 06/01/2016 No Stop Date Active metoprolol succinate ER 50 mg tablet,extended release 24 hr RxNorm: 040384 1 Tablet(s) PO daily 05/26/2016 12/21/2016 Inactive cetirizine 10 mg tablet RxNorm: 8312119 1 Tablet(s) PO daily 10/18/2016 Inactive Synthroid 88 mcg tablet RxNorm: 622380 1 Tablet(s) PO TAKE ONE (1) TABLET BY MOUTH DAILY 03/06/2016 03/07/2018 Inactive Brand name only! Synthroid 88 mcg tablet RxNorm: 857514 1 Tablet(s) PO TAKE ONE (1) TABLET BY MOUTH DAILY 03/04/2016 03/05/2016 Inactive decrease dose cetirizine 10 mg tablet RxNorm: 7228782 1 Tablet(s) PO daily 03/22/2016 Inactive amoxicillin 500 mg capsule RxNorm: 238566 1 Capsule(s) PO TID 02/27/2016 03/04/2016 Inactive lisinopril 10 mg tablet RxNorm: 236284 TAKE ONE TABLET BY MOUTH TWICE DAILY 02/06/2016 06/04/2016 Inactive Generic For:ZESTRIL 10 MG TABLET 02/06/2016 12:16: 38 PM Synthroid 100 mcg tablet RxNorm: 998788 TAKE ONE (1) TABLET BY MOUTH DAILY 01/03/2016 03/03/2016 Inactive 01/03/2016 10:35:14 AM N O T I C E Last quantity doesn't match original quantity lisinopril 10 mg tablet RxNorm: 664228 1 Tablet(s) PO BID 10/0301/31/2016 Inactive Synthroid 100 mcg tablet RxNorm: 984654 1 Tablet(s) PO daily 01/02/2016 Inactive metoprolol succinate ER 50 mg tablet,extended release 24 hr RxNorm: 440301 1 Tablet(s) PO daily 10/04/2015 04/30/2016 Inactive Tylenol Arthritis 650 mg tablet,extended release RxNorm: 4468970 2 Tablet(s) PO TID 09/10/2015 No Stop Date Active metoprolol succinate ER 50 mg tablet,extended release 24 hr RxNorm: 678385 1 Tablet(s) PO daily 09/05/2015 10/03/2015 Inactive pravastatin 80 mg tablet RxNorm: 239048 1 Tablet(s) PO QHS 08/30/2015 Inactive pravastatin 40 mg tablet RxNorm: 336439 1 Tablet(s) PO BID 08/29/2015 Inactive Cancel 80 mg tab pravastatin 40 mg tablet RxNorm: 579212 1 Tablet(s) PO BID 08/19/2016 Inactive Cancel 80 mg tab lisinopril 10 mg tablet RxNorm: 454495 1 Tablet(s) PO BID 06/1308/11/2016 Inactive lisinopril 10 mg tablet RxNorm: 914442 1 Tablet(s) PO BID 06/1310/03/2015 Inactive Synthroid 100 mcg tablet RxNorm: 982761 1 Tablet(s) PO daily 10/03/2015 Inactive ceftriaxone 1 gram solution for injection RxNorm: 1809007 Inj 03/01/2015 03/01/2015 Inactive ceftriaxone 1 gram solution for injection RxNorm: 3333750 Inj 02/28/2015 02/28/2015 Inactive ceftriaxone 1 gram solution for injection RxNorm: 7488661 Inj 02/27/2015 02/27/2015 Inactive ceftriaxone 1 gram solution for injection RxNorm: 3572340 Inj 02/26/2015 02/26/2015 Inactive ceftriaxone 1 gram solution for injection RxNorm: 2438705 Inj 02/25/2015 02/25/2015 Inactive phenazopyridine 200 mg tablet RxNorm: 7643570 1 Tablet(s) PO Q8 02/21/2015 02/20/2015 Inactive Cipro 500 mg tablet RxNorm: 456441 1 Tablet(s) PO BID 201402/20/2015 Inactive phenazopyridine 200 mg tablet RxNorm: 3161490 1 Tablet(s) PO Q8 02/21/2015 02/25/2015 Inactive Cipro 500 mg tablet RxNorm: 761343 1 Tablet(s) PO BID 201402/27/2015 Inactive lisinopril 10 mg tablet RxNorm: 002466 1 Tablet(s) PO BID 02/1406/12/2015 Inactive metoprolol succinate ER 50 mg tablet,extended release 24 hr RxNorm: 468498 3/4 Tablet(s) PO daily 02/11/2015 09/04/2015 Inactive Voltaren 1 % topical gel RxNorm: 430785 2 Gram(s) TOP QID use this on affected joints up to four times daily. 02/11/2015 03/12/2015 Inactive Probiotic oral RxNorm : 6205 oral No Start Date Active aspirin 81 mg tablet RxNorm: 049960 1 Tablet(s) PO daily No Start Date Active Super B-Complex tablet RxNorm: 1 Tablet(s) PO No Start Date Active Flonase Allergy Relief 50 mcg/actuation nasal spray, suspension RxNorm: 3161420 1 [place] NASAL BID No Start Date Active Super-D3+ oral RxNorm : oral No Start Date Active Prilosec OTC 20 mg tablet,delayed release RxNorm: 061798 2 Tablet(s) PO QAM No Start Date Active Flonase Allergy Relief 50 mcg/actuation nasal spray, suspension RxNorm: 5563763 1 [place] NASAL as needed No Start Date Active Move Free Ultra 40 mg-10 mg-3.3 mg tablet RxNorm: 1 Tablet(s) PO daily No Start Date Active metoprolol tartrate 50 mg tablet RxNorm: 215036 1 Tablet(s) PO daily No Start Date 02/10/2015 Inactive lisinopril 10 mg tablet RxNorm: 683122 1 Tablet(s) PO BID No Start Date 02/13/2015 Inactive pravastatin 80 mg tablet RxNorm: 878986 1 Tablet(s) PO daily No Start Date 08/29/2015 Inactive Synthroid 100 mcg tablet RxNorm: 070813 1 Tablet(s) PO daily No Start Date 06/09/2015 Inactive lisinopril 40 mg tablet RxNorm: 937297 1 Tablet(s) PO BID No Start Date 02/28/2018 Inactive Tylenol Arthritis 650 mg tablet,extended release RxNorm: 7494170 4 Tablet(s) PO daily No Start Date 09/09/2015 Inactive Medication Administered Medication Codes Instructions Start Date Status ceftriaxone 500 mg solution for injection RxNorm: 7003430 04/05/2018 Active ketorolac 60 mg/2 mL intramuscular solution RxNorm: 3802999 Milliliter 04/05/2018 Active ceftriaxone 500 mg solution for injection RxNorm: 7809227 04/04/2018 No longer Active ketorolac 30 mg/mL injection solution RxNorm: 222855 2Milliliter 04/04/2018 No longer Active Kenalog 40 mg/mL suspension for injection RxNorm: 3970663 Milliliter 12/24/2017 No longer Active Kenalog 40 mg/mL suspension for injection RxNorm: 7063003 1Milliliter 03/25/2017 No longer Active Kenalog 40 mg/mL suspension for injection RxNorm: 8131464 Milliliter 12/08/2016 No longer Active ceftriaxone 1 gram solution for injection RxNorm: 4522582 03/01/2015 No longer Active ceftriaxone 1 gram solution for injection RxNorm: 4023271 02/28/2015 No longer Active ceftriaxone 1 gram solution for injection RxNorm: 3951304 02/27/2015 No longer Active ceftriaxone 1 gram solution for injection RxNorm: 5438572 02/26/2015 No longer Active ceftriaxone 1 gram solution for injection RxNorm: 7621977 02/25/2015 No longer Active Immunizations Vaccine Codes Date Status Influenza CVX: 141 01/18/2018 completed Influenza CVX: 141 03/15/2017 completed Influenza CVX: 141 03/18/2016 completed Influenza CVX: 141 02/11/2015 completed Assessments Condition Codes Effective Dates Headache ICD-10: R51 ICD-9: 784.0 04/05/2018 Dysuria ICD-10: R30.0 ICD-9: 788.1 04/05/2018 Essential (primary) hypertension ICD-10: I10 ICD-9: [...] Item Item Code Result Date Free T4 [id number] FREE T4 1.07 ng/dL 04/04/2018 Tsh Ord6 TSH (3rd IS) 1.93 uIU/mL 04/04/2018 Urine Culture Ucult Preliminary NO Growth Day 1 03/28/2018 Urine Culture Ucult Complete NO Growth Day 2 03/28/2018 Urine Culture Ucult Complete >100,000 col/ml aerobic growth sent to ref lab 11/19/2017 B12 Xgk188 B12 712.00 pg/ml 09/28/2017 C-Reactive Protein Qnt Crqnt CRP 0.1 mg/dl 09/23/2017 Comp Metabolic Pjz763 NA 139 mEq/L 09/23/2017 Comp Metabolic Wud334 K 4.8 mEq/L 09/23/2017 Comp Metabolic Syw997 CL 104 mEq/L 09/23/2017 Comp Metabolic Tip875 CO2 28.0 mEq/L 09/23/2017 Comp Metabolic Kxu882 ANION GAP 12 09/23/2017 Comp Metabolic Boq178 GLUCOSE 92 mg/dL 09/23/2017 Comp Metabolic Dfw085 Creat 0.7 mg/dL 09/23/2017 Comp Metabolic Rgj741 eGFR 91 ml/min/1.73m2 09/23/2017 Comp Metabolic Var498 BUN 11 mg/dL 09/23/2017 Comp Metabolic Elw944 B/C Ratio 16.4 Ratio 09/23/2017 Comp Metabolic Mse803 CALCIUM 9.0 mg/dL 09/23/2017 Comp Metabolic Qcl802 ALK PHOS 76 U/L 09/23/2017 Comp Metabolic Mvy048 AST(SGOT) 24 U/L 09/23/2017 Comp Metabolic Qxi758 ALT(SGPT) 21 U/L 09/23/2017 Comp Metabolic Flu672 BILI T 0.3 mg/dL 09/23/2017 Comp Metabolic Cge247 ALBUMIN 4.1 g/dL 09/23/2017 Comp Metabolic Zhl691 TPRO 6.2 g/dL 09/23/2017 Comp Metabolic Hen635 GLOB 2.1 g/dL 09/23/2017 Comp Metabolic Uob507 A/G Ratio 1.9 Ratio 09/23/2017 Comp Metabolic Jyr965 Osmo 277 mOsmo 09/23/2017 Sed Rate Ord21 ESR 3 mm/hr 09/22/2017 Vitamin D 25 Oh Tmo2585 VITAMIN D, 25 HYDROXY 78.79 ng/mL Tsh [...] 97.1 fl 09/22/2017 Cbc With Differential Ord2 Nolan% 10.5 % 09/22/2017 Cbc With Differential Ord2 [...] 2.37 K/ul 09/22/2017 Cbc With Differential Ord2 Nolan ABS# 0.9 K/ul 09/22/2017 Cbc With Differential Ord2 Eos ABS# 0.2 K/ul 09/22/2017 Cbc With Differential Ord2 Baso ABS# 0.0 K/ul 09/22/2017 Free T4 Ccm908 FREE T4 0.99 ng/dL 09/22/2017 %Hba1C Dwm377 % HbA1c 59089-2 6.0 % 12/10/2016 %Hba1C Sor197 Gluc Ave 126 mg/dL 12/10/2016 Tsh Ord6 hTSH II 0.89 uIU/mL 12/09/2016 Free T4 Hbh502 FREE T4 0.99 ng/dL 12/09/2016 Comp Metabolic Peh578 NA 138 mEq/L 12/09/2016 Comp Metabolic Xes308 K 5.2 mEq/L 12/09/2016 Comp Metabolic Sng774 CL 104 mEq/L 12/09/2016 Comp Metabolic Fbf122 CO2 29.0 mEq/L 12/09/2016 Comp Metabolic Gdh900 ANION GAP 10 12/09/2016 Comp Metabolic Tmw467 GLUCOSE 135 mg/dL 12/09/2016 Comp Metabolic Ytt873 Creat 0.8 mg/dL 12/09/2016 Comp Metabolic Kwl866 eGFR 79 ml/min/1.73m2 12/09/2016 Comp Metabolic Lxh462 BUN 18 mg/dL 12/09/2016 Comp Metabolic Avk078 B/C Ratio 23.7 Ratio 12/09/2016 Comp Metabolic Vvx110 CALCIUM 9.5 mg/dL 12/09/2016 Comp Metabolic Jwl848 ALK PHOS 73 U/L 12/09/2016 Comp Metabolic Zup162 AST(SGOT) 24 U/L 12/09/2016 Comp Metabolic Tin877 ALT(SGPT) 20 U/L 12/09/2016 Comp Metabolic Ekz699 BILI T 0.3 mg/dL 12/09/2016 Comp Metabolic Lic185 ALBUMIN 4.3 g/dL 12/09/2016 Comp Metabolic Lkb110 TPRO 6.4 g/dL 12/09/2016 Comp Metabolic Gdy471 GLOB 2.1 g/dL 12/09/2016 Comp Metabolic Enn775 A/G Ratio 2.0 Ratio 12/09/2016 Comp Metabolic Rpm226 Osmo 280 mOsmo 12/09/2016 Cbc With Differential [...] 31.3 pg 12/09/2016 Cbc With Differential Ord2 Nolan% 6.5 % 12/09/2016 Cbc With Differential Ord2 [...] 1.84 K/ul 12/09/2016 Cbc With Differential Ord2 Nolan ABS# 0.6 K/ul 12/09/2016 Cbc With Differential Ord2 Eos ABS# 0.1 K/ul 12/09/2016 Cbc With Differential Ord2 Baso ABS# 0.1 K/ul 12/09/2016 Tsh Ord6 hTSH II 1.19 uIU/mL 09/02/2016 Free T4 Rdn277 FREE T4 0.97 ng/dL 09/02/2016 Comp Metabolic Gsp644 NA 137 mEq/L 06/01/2016 Comp Metabolic Mvp691 K 4.1 mEq/L 06/01/2016 Comp Metabolic Wlx021 CL 104 mEq/L 06/01/2016 Comp Metabolic Tbz662 CO2 25.0 mEq/L 06/01/2016 Comp Metabolic Pvk959 ANION GAP 12 06/01/2016 Comp Metabolic Rkb079 GLUCOSE 108 mg/dL 06/01/2016 Comp Metabolic Yfo808 Creat 0.8 mg/dL 06/01/2016 Comp Metabolic Cmv354 eGFR 80 ml/min/1.73m2 06/01/2016 Comp Metabolic Kmq316 BUN 15 mg/dL 06/01/2016 Comp Metabolic Cnh328 B/C Ratio 20.0 Ratio 06/01/2016 Comp Metabolic Rov286 CALCIUM 9.1 mg/dL 06/01/2016 Comp Metabolic Wzt678 ALK PHOS 89 U/L 06/01/2016 Comp Metabolic Lji972 AST(SGOT) 25 U/L 06/01/2016 Comp Metabolic Jpt330 ALT(SGPT) 20 U/L 06/01/2016 Comp Metabolic Zkp771 BILI T 0.3 mg/dL 06/01/2016 Comp Metabolic Xhz107 ALBUMIN 4.2 g/dL 06/01/2016 Comp Metabolic Ulx753 TPRO 6.2 g/dL 06/01/2016 Comp Metabolic Lub133 GLOB 2.0 g/dL 06/01/2016 Comp Metabolic Hkf149 A/G Ratio 2.1 Ratio 06/01/2016 Comp Metabolic Nia667 Osmo 275 mOsmo 06/01/2016 Free T4 Zwc762 FREE T4 0.94 ng/dL 06/01/2016 Tsh Ord6 [...] 31.1 pg 06/01/2016 Cbc With Differential Ord2 Nolan% 8.4 % 06/01/2016 Cbc With Differential Ord2 [...] 2.96 K/ul 06/01/2016 Cbc With Differential Ord2 Nolan ABS# 0.6 K/ul 06/01/2016 Cbc With Differential [...] 31.3 pg 02/27/2016 Cbc With Differential Ord2 Nolan% 10.0 % 02/27/2016 Cbc With Differential Ord2 [...] 2.28 K/ul 02/27/2016 Cbc With Differential Ord2 Nolan ABS# 0.9 K/ul 02/27/2016 Cbc With Differential Ord2 Eos ABS# 0.3 K/ul 02/27/2016 Cbc With Differential Ord2 Baso ABS# 0.1 K/ul 02/27/2016 Tsh Ord6 hTSH II 0.18 uIU/mL 02/27/2016 Free T4 Ecu026 FREE T4 1.17 ng/dL 02/27/2016 Comp Metabolic Moc620 NA 135 mEq/L 02/27/2016 Comp Metabolic Eqt847 K 5.2 mEq/L 02/27/2016 Comp Metabolic Pog529 CL 102 mEq/L 02/27/2016 Comp Metabolic Snu800 CO2 27.0 mEq/L 02/27/2016 Comp Metabolic Euj188 ANION GAP 11 02/27/2016 Comp Metabolic Ttp753 GLUCOSE 93 mg/dL 02/27/2016 Comp Metabolic Xgi858 Creat 0.7 mg/dL 02/27/2016 Comp Metabolic Yzk717 eGFR 91 ml/min/1.73m2 02/27/2016 Comp Metabolic Kxz746 BUN 14 mg/dL 02/27/2016 Comp Metabolic Vnp180 B/C Ratio 20.9 Ratio 02/27/2016 Comp Metabolic Hgs251 CALCIUM 9.4 mg/dL 02/27/2016 Comp Metabolic Fzs714 ALK PHOS 100 U/L 02/27/2016 Comp Metabolic Boi898 AST(SGOT) 23 U/L 02/27/2016 Comp Metabolic Cqn089 ALT(SGPT) 24 U/L 02/27/2016 Comp Metabolic Kiv468 BILI T 0.2 mg/dL 02/27/2016 Comp Metabolic Auy665 ALBUMIN 4.3 g/dL 02/27/2016 Comp Metabolic Djy285 TPRO 6.3 g/dL 02/27/2016 Comp Metabolic Wly532 GLOB 2.1 g/dL 02/27/2016 Comp Metabolic Ius611 A/G Ratio 2.1 Ratio 02/27/2016 Comp Metabolic Rle161 Osmo 270 mOsmo 02/27/2016 Free T4 Wqw774 FREE T4 1.03 ng/dL 05/10/2015 Comp Metabolic Fdv567 NA 137 mEq/L 05/10/2015 Comp Metabolic Ttk028 K 4.4 mEq/L 05/10/2015 Comp Metabolic Lfg163 CL 102 mEq/L 05/10/2015 Comp Metabolic Cfl934 CO2 28.0 mEq/L 05/10/2015 Comp Metabolic Jzz575 ANION GAP 11 05/10/2015 Comp Metabolic Jqa517 GLUCOSE 108 mg/dL 05/10/2015 Comp Metabolic Vvi032 Creat 0.7 mg/dL 05/10/2015 Comp Metabolic Bgi351 eGFR 86 ml/min/1.73m2 05/10/2015 Comp Metabolic Jqe594 BUN 13 mg/dL 05/10/2015 Comp Metabolic Bos167 B/C Ratio 18.3 Ratio 05/10/2015 Comp Metabolic Zjo880 CALCIUM 9.4 mg/dL 05/10/2015 Comp Metabolic Jqc614 ALK PHOS 94 U/L 05/10/2015 Comp Metabolic Kum795 AST(SGOT) 22 U/L 05/10/2015 Comp Metabolic Ovf266 ALT(SGPT) 21 U/L 05/10/2015 Comp Metabolic Nrx678 BILI T 0.3 mg/dL 05/10/2015 Comp Metabolic Cqt812 ALBUMIN 3.9 g/dL 05/10/2015 Comp Metabolic Teh799 TPRO 6.1 g/dL 05/10/2015 Comp Metabolic Din472 GLOB 2.2 g/dL 05/10/2015 Comp Metabolic Nuw208 A/G Ratio 1.7 Ratio 05/10/2015 Comp Metabolic Cnt801 Osmo 274 mOsmo 05/10/2015 Tsh Ord6 hTSH [...] 29.4 pg 05/10/2015 Cbc With Differential Ord2 Nolan% 9.0 % 05/10/2015 Cbc With Differential Ord2 [...] 2.14 K/ul 05/10/2015 Cbc With Differential Ord2 Nolan ABS# 0.5 K/ul 05/10/2015 Cbc With Differential [...] Ord30 C/HDL 3.8 Ratio 05/10/2015 Culture Urine [id number] URINE CULTURE SEE NOTES 02/25/2015 Culture Urine [id number] Continued Results 02/25/2015 Urine Culture Ucult Complete >100,000 col/ml aerobic growth sent to ref lab 02/22/2015 Free T4 Kzn167 FREE T4 1.16 ng/dL 02/11/2015 Tsh Ord6 [...] accomodation 09/22/2017 None Full Exam - General 1995 Ears/Nose/Throat otoscopic exam Overall: tympanic membranes clear [...] dentition 11/30/2016 None Full Exam - General 1995 [...] Procedure Codes Date THER/PROPH/DIAG INJ SC/IM CPT-4: 77142 04/05/2018 ROCEPHIN, PER 250 MG CPT-4: J0696 04/05/2018 KETOROLAC TROMETHAMINE INJ CPT-4: J1885 04/05/2018 THER/PROPH/DIAG INJ SC/IM CPT-4: 20570 04/04/2018 ROCEPHIN, PER 250 MG CPT-4: J0696 04/04/2018 KETOROLAC TROMETHAMINE INJ CPT-4: J1885 04/04/2018 URINALYSIS NONAUTO W/O SCOPE CPT-4: 64679 03/24/2018 PPPS, SUBSEQ VISIT CPT -4: G0439 12/24/2017 THER/PROPH/DIAG INJ SC/IM CPT-4: 68449 12/24/2017 TRIAMCINOLONE ACET INJ NOS CPT-4: J3301 12/24/2017 THER/PROPH/DIAG INJ SC/IM CPT-4: 28616 11/18/2017 ROCEPHIN, PER 250 MG CPT-4: J0696 11/18/2017 PRESCRIP TRANSMIT VIA ERX SY CPT-4: G8553 04/01/2017 TRIAMCINOLONE ACET INJ NOS CPT-4: J3301 03/25/2017 PPPS, SUBSEQ VISIT CPT -4: G0439 12/23/2016 THER/PROPH/DIAG INJ SC/IM CPT-4: 56389 12/08/2016 TRIAMCINOLONE ACET INJ NOS CPT-4: J3301 12/08/2016 PRESCRIP TRANSMIT VIA ERX SY CPT-4: G8553 12/08/2016 PRESCRIP TRANSMIT VIA ERX SY CPT-4: G8553 11/30/2016 URINALYSIS NONAUTO W/O SCOPE CPT-4: 84032 07/08/2016 PRESCRIP TRANSMIT VIA ERX SY CPT-4: G8553 06/01/2016 PRESCRIP TRANSMIT VIA ERX SY CPT-4: G8553 02/27/2016 THER/PROPH/DIAG INJ SC/IM CPT-4: 98715 03/01/2015 ROCEPHIN, PER 250 MG CPT-4: J0696 03/01/2015 THER/PROPH/DIAG INJ SC/IM CPT-4: 62717 02/28/2015 ROCEPHIN, PER 250 MG CPT-4: J0696 02/28/2015 THER/PROPH/DIAG INJ SC/IM CPT-4: 08066 02/27/2015 ROCEPHIN, PER 250 MG CPT-4: J0696 02/27/2015 THER/PROPH/DIAG INJ SC/IM CPT-4: 99002 02/26/2015 ROCEPHIN, PER 250 MG CPT-4: J0696 02/26/2015 THER/PROPH/DIAG INJ SC/IM CPT-4: 51932 02/25/2015 ROCEPHIN, PER 250 MG CPT-4: J0696 02/25/2015 URINALYSIS NONAUTO W/O SCOPE CPT-4: 76729 02/21/2015 Vital Signs Date Vital 04/04/2018 Blood Pressure 1: 130/60 Code : 8480-6 Heart Rate 1: 78 bpm Height: Weight: 04/01/2018 Blood Pressure 1: 134/58 Code : 8480-6 BMI: 27.8 Code : 82097-2 Heart Rate 1 : 85 bpm Height: 5'3" SpO2: 96% Weight: 157 lbs 03/24/2018 Blood Pressure 1: 128/82 Code : 8480-6 BMI: 27.8 Code : 34987-1 Heart Rate 1 : 84 bpm Height: 5'3" SpO2: 97% Weight: 157 lbs 03/01/2018 Blood Pressure 1: 136/70 Code : 8480-6 BMI: 27.8 Code : 27265-5 Heart Rate 1 : 70 bpm Height: 5'3" SpO2: 96% Weight: 157 lbs 12/24/2017 Height: Weight: 11/18/2017 Blood Pressure 1: 164/74 Code : 8480-6 BMI: 27.6 Code : 99169-0 Heart Rate 1 : 70 bpm Height: 5'3" SpO2: 96% Weight: 156 lbs 11/03/2017 Blood Pressure 1: 118/72 Code : 8480-6 BMI: 27.6 Code : 42300-1 Heart Rate 1 : 82 bpm Height: 5'3" SpO2: 96% Weight: 156 lbs 09/22/2017 Blood Pressure 1: 136/68 Code : 8480-6 BMI: 27.6 Code : 27981-3 Heart Rate 1 : 70 bpm Height: 5'3" SpO2: 97% Weight: 156 lbs 04/01/2017 Blood Pressure 1: 144/82 Code : 8480-6 Heart Rate 1: 68 bpm Height: 5'3" SpO2: 97% Weight: 03/25/2017 Blood Pressure 1: 116/70 Code : 8480-6 BMI: 26.7 Code : 64478-6 Heart Rate 1 : 67 bpm Height: 5'3" SpO2: 98% Weight: 151 lbs 12/23/2016 BMI: 26.7 Code: 31014-2 Height: 5'3" Weight: 151 lbs 12/22/2016 Blood Pressure 1: 142/60 Code : 8480-6 BMI: 26.7 Code : 26546-0 Heart Rate 1 : 67 bpm Height: 5'3" SpO2: 98% Weight: 151 lbs 12/08/2016 Blood Pressure 1: 140/72 Code : 8480-6 Heart Rate 1: 72 bpm Height: 5'3" SpO2: 97% Weight: 11/30/2016 Blood Pressure 1: 128/80 Code : 8480-6 BMI: 26.7 Code : 09988-4 Heart Rate 1 : 63 bpm Height: 5'3" SpO2: 96% Weight: 151 lbs 09/28/2016 Blood Pressure 1: 130/80 Code : 8480-6 BMI: 27.1 Code : 27557-2 Heart Rate 1 : 80 bpm Height: 5'3" SpO2: 97% Weight: 153 lbs 07/06/2016 Blood Pressure 1: 162/72 Code : 8480-6 BMI: 27.6 Code : 79362-8 Heart Rate 1 : 72 bpm Height: 5'3" SpO2: 98% Weight: 156 lbs 06/01/2016 Blood Pressure 1: 122/66 Code : 8480-6 BMI: 27.5 Code : 68831-8 Heart Rate 1 : 73 bpm Height: 5'3" SpO2: 98% Weight: 155 lbs 8 oz 02/27/2016 Blood Pressure 1: 126/68 Code : 8480-6 BMI: 26.9 Code : 51470-5 Heart Rate 1 : 70 bpm Height: 5'3" SpO2: 98% Weight: 152 lbs 09/10/2015 Blood Pressure 1: 130/70 Code : 8480-6 BMI: 26.9 Code : 23442-9 Heart Rate 1 : 72 bpm Height: 5'3" SpO2: 97% Weight: 152 lbs 05/14/2015 Blood Pressure 1: 138/82 Code : 8480-6 BMI: 26.4 Code : 90241-6 Heart Rate 1 : 75 bpm Height: 5'3" SpO2: 98% Weight: 149 lbs 02/11/2015 Blood Pressure 1: 128/72 Code : 8480-6 BMI: 25.5 Code : 28792-7 Heart Rate 1 : 73 bpm Height: [...] data Encounters Encounter Performer Location Codes Date ([id number]) [id number] EST. PATIENT, LEVEL III Diagnosis: Essential (primary) hypertension[ICD10: I10] Diagnosis: Dysuria[ICD10: R30.0] Diagnosis: Nausea[ICD10: R11.0] Diagnosis: Headache[ICD10: R51] Elen Cortez MD, [facility] CPT-4: 53901 04/04/2018 94847 EST. PATIENT, LEVEL III Diagnosis: Other acute sinusitis[ICD10: J01.80] Diagnosis: Dizziness and giddiness[ICD10: R42] Diagnosis: Dysuria[ICD10: R30.0] Diagnosis: Candidal stomatitis[ICD10: B37.0] Diagnosis: Essential (primary) hypertension[ICD10: I10] Diagnosis: Other fatigue[ICD10: R53.83] Diagnosis: Other malaise[ICD10: R53.81] Bridget Cortez MD, [facility] CPT-4 : 61148 04/01/2018 ([id number]) 11289 EST. 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 PATIENT, LEVEL IV Diagnosis: Otalgia, right ear[ICD10: H92.01] Diagnosis: Headache[ICD10: R51] Diagnosis: Other fatigue[ICD10: R53.83] Diagnosis: Abnormal findings on diagnostic imaging of other specified body structures[ICD10: R93.89] Elen Cortez MD, [facility] CPT-4: 08098 03/01/2018 [id number] EST. PATIENT, LEVEL III Diagnosis: Acute cystitis with hematuria[ICD10: N30.01] Bridget Cortez MD, [facility] CPT-4: 36948 11/18/2017 61601 EST. PATIENT, LEVEL IV Diagnosis: Other acute sinusitis[ICD10: J01.80] Diagnosis: Otalgia, right ear[ICD10: H92.01] Bridget Cortez MD, [facility] CPT -4: 24643 11/03/2017 51985 EST. PATIENT, LEVEL III Diagnosis: Other fatigue[ICD10: R53.83] Diagnosis: Other malaise[ICD10: R53.81] Diagnosis: Pain in left knee[ICD10: M25.562] Diagnosis: Pain in right knee[ICD10: M25.561] Bridget Cortez MD, [facility] CPT-4: 71530 09/22/2017 ([id number]) 33493 EST. PATIENT, LEVEL III Diagnosis: Cough[ICD10: R05] Diagnosis: Acute bronchitis due to other specified organisms[ICD10: J20.8] Elen Cortez MD, [facility] CPT-4: 45938 04/01/2017 ([id number]) 26875 EST. PATIENT, LEVEL III Diagnosis: Otalgia, right ear[ICD10: H92.01] Diagnosis: Other allergic rhinitis[ICD10: J30.89] Shiela Cortez MD, [facility] CPT-4: 80369 03/25/2017 ([id number]) 23526 EST. PATIENT, LEVEL III Diagnosis: Benign paroxysmal vertigo, bilateral[ICD10: H81.13] Shiela Cortze MD, [facility] CPT-4: 39898 12/22/2016 ([id number]) 58170 EST. PATIENT, LEVEL IV Diagnosis: Benign paroxysmal vertigo, bilateral[ICD10: H81.13] Diagnosis: Other allergic rhinitis[ICD10: J30.89] Diagnosis: Hypothyroidism, unspecified[ICD10: E03.9] Shiela Cortez MD, [facility] CPT-4: 59203 12/08/2016 ([id number]) 29602 EST. PATIENT, LEVEL IV Diagnosis: Atrophy of thyroid (acquired)[ICD10: E03.4] Diagnosis: Essential (primary) hypertension[ICD10: I10] Diagnosis: Mixed hyperlipidemia[ICD10: E78.2] Elen Cortez MD, [facility] CPT-4: 75796 11/30/2016 40288 EST. PATIENT, LEVEL IV Diagnosis: Headache[ICD10: R51] Diagnosis: Other fatigue[ICD10: R53.83] Diagnosis: Dizziness and giddiness[ICD10: R42] Bridget Cortez MD, [facility] CPT-4: 25989 09/28/2016 60924 EST. PATIENT, LEVEL IV Diagnosis: Essential (primary) hypertension[ICD10: I10] Diagnosis: Headache[ICD10: R51] Bridget Cortez MD, [facility] CPT-4: 39748 07/06/2016 ([id number]) 05073 EST. PATIENT, LEVEL IV Diagnosis: Essential (primary) hypertension[ICD10: I10] Diagnosis: Atrophy of thyroid (acquired)[ICD10: E03.4] Diagnosis: Mixed hyperlipidemia[ICD10: E78.2] Elen Cortez MD, [facility] CPT-4: 14181 06/01/2016 45878 EST. PATIENT, LEVEL IV Diagnosis: Acute laryngopharyngitis[ICD10: J06.0] Diagnosis: Other allergic rhinitis[ICD10: J30.89] Diagnosis: Other specified hypothyroidism[ICD10: E03.8] Diagnosis: Other fatigue[ICD10: R53.83] Bridget Cortez MD, [facility] CPT-4 : 42726 02/27/2016 ([id number]) 45504 EST. PATIENT, LEVEL III Diagnosis: Essential (primary) hypertension[ICD10: I10] Diagnosis: Mixed hyperlipidemia[ICD10: E78.2] Elen Cortez MD, [facility] CPT-4: 67502 09/10/2015 ([id number]) 46667 EST. PATIENT, LEVEL IV Diagnosis: Essential (primary) hypertension[ICD10: I10] Diagnosis: Hypothyroidism, unspecified[ICD10: E03.9] Diagnosis: Unspecified osteoarthritis, unspecified site[ICD10: M19.90] [facility] CPT-4: 54947 05/14/2015 ([id number]) OFFICE VISIT, NEW - LEVEL 4 Diagnosis: Essential (primary) hypertension[ICD10: I10] Diagnosis: Hypothyroidism, unspecified[ICD10: E03.9] Diagnosis: Unspecified osteoarthritis, unspecified site[ICD10: M19.90] [facility] CPT-4: 99870 02/11/2015 Plan of Care Planned Activity Notes Codes Status Date Patient Education: Patient Medication Summary Completed 04/05/2018 [...] toradol today. 04/04/2018 Appointment: Elen Cortez WPtel: [address] [place], [place] [phone] (10 min) Simple 04/04/2018 Patient Education: Patient Medication Summary Completed 04/04/2018 Patient Education: Patient Medication Summary Completed 04/04/2018 Patient Education: Patient Medication Summary Completed 04/04/2018 Care Plan: Referral Order SNOMED-CT : [id number] Pending 04/04/2018 Visit Plan: Dysuria, dizziness, fatigue, [...] improvement. 04/01/2018 Appointment: [facility] [phone] [facility] (15 min) Moderate 04/01/2018 Patient Education: Patient Medication Summary Completed 04/01/2018 Visit Plan: Sinusitis - Pt has acute infection - pain in face, maxillary region, Pt informed to use decongestant, RX given to patient, sinus rinses also recommended. Call if symptoms do not show improvement. Dysuria - rx for antibiotic sent to pharmacy. 03/24/2018 Appointment: Elen Cortez WPtel: [phone] [facility] (15 min) Moderate 03/24/2018 Patient Education: [...] improve. 03/01/2018 Appointment: [facility] [phone] [facility] [place] (15 min) Moderate 03/01/2018 Patient [...] allergy spray. 12/24/2017 Appointment: Bridget Velazco WPtel: [facility] [place] [phone] [place] [address] - Annual Wellness Visit 12/24/2017 Patient Education: Patient Medication Summary Completed 12/24/2017 Appointment: Bridget Velazcotel: [address] [place], [place] [phone] (15 min) Moderate 11/30/2017 Appointment: Lab Draw [...] do not improve. 11/18/2017 Appointment: Bridget Velazcotel: [facility] (15 min) Moderate 11/18/2017 Patient Education: Patient Medication Summary Completed 11/18/2017 Visit Plan: Sinusitis - Pt has acute infection - pain in face, maxillary region, Pt informed to use decongestant, RX given to patient, sinus rinses also recommended. Call if symptoms do not show improvement. 11/03/2017 Appointment: Bridget Velazco WPtel: [phone] [place] [phone] (15 min) Moderate 11/03/2017 [...] improve. 09/22/2017 Appointment: Bridget Velazco WPtel: [phone] (15 min) Moderate 09/22/2017 Patient Education: Patient Medication Summary Completed 09/22/2017 Visit Plan: Bronchitis - acute case of bronchitis identified. Pt has been given antibiotics, breathing treatments as appropriate, and pt has been instructed to call if symptoms are not improved, or if symptoms acutely worsen. 04/01/2017 Appointment: Elne Cortez WPtel: [facility] (15 min) Moderate 04/01/2017 [...] allergy spray. 03/25/2017 Appointment: Shiela Srivastava WPtel: [facility] [place] [phone] [place] (10 min) Simple 03/25/2017 Appointment: Elen Cortez WPtel: [facility] [facility] (15 min) Moderate 03/25/2017 Patient Education: [...] surrogate. 12/23/2016 Appointment: Bridget Velazco WPtel: [phone] [facility] [facility] - Annual Wellness Visit 12/23/2016 Patient Education: Patient Medication Summary Completed 12/23/2016 Visit Plan: Vertigo-discussed PT for vestibular exercises- patient wants to wait since symptoms are improving-continue anti histamine as directed-meclizine as needed 12/22/2016 Appointment: Shiela Srivastava WPtel: [phone] [phone] (30 min) Complex 12/22/2016 Patient Education: Patient [...] of control. 12/08/2016 Appointment: Shiela Srivastava WPtel: [phone] [phone] (30 min) Complex 12/08/2016 Patient Education: Patient [...] medications. 11/30/2016 Appointment: [phone] [facility] [place] (15 min) Moderate 11/30/2016 Patient [...] or concerns. 09/28/2016 Appointment: [phone] [facility] (30 min) Complex 09/28/2016 Patient Education: [...] acute concerns. 07/06/2016 Appointment: Br[facility]cotel[facility] [phone] [facility] (15 min) Moderate 07/06/2016 Patient Education: [...] improving 06/01/2016 Appointment: Elen Cortez WPtel: [phone] [facility] (15 min) Moderate 06/01/2016 [...] check labs 02/27/2016 Appointment: Bridget Velazco WPtel: [facility]9 [facility] (30 min) Complex 02/27/2016 Patient Education: Patient Medication Summary Completed 02/27/2016 Patient Education: Patient Medication Summary Completed 09/27/2015 Care Plan: [employer] : 48878-6 Pending 09/27/2015 Visit Plan: Hypertension - well [...] the colonoscopy 09/10/2015 Appointment: [facility]el[facility] [phone] [facility] [place] (15 min) Moderate 09/10/2015 Patient Education: [...] Sanchez. 05/14/2015 Appointment: [facility]ez [facility]Ptel[facility] [phone] [facility] [place] (15 min) Moderate 05/14/2015 Patient Education: Patient Medication Summary Completed 05/14/2015 Patient Education: Hypertension Completed 05/14/2015 Care Plan: Referral Order SNOMED-CT : [id number] Ordered 05/14/2015 Patient Education: Patient Medication Summary Completed 03/01/2015 Appointment: Nurse Visit 02/28/2015 Patient Education: Patient Medication Summary Completed 02/28/2015 Patient Education: Patient Medication Summary Completed 02/27/2015 Appointment: Nurse Visit 02/26/2015 Patient Education: Patient Medication Summary Completed 02/26/2015 Appointment: Injection 02/25/2015 Patient Education: Patient Medication Summary Completed 02/25/2015 Patient Education: Patient Medication Summary Completed 02/21/2015 Care Plan: URINALYSIS NONAUTO W/O SCOPE LOINC : 34113-7 Ordered 02/21/2015 Visit Plan: Hypertension - well [...] symptoms. 02/11/2015 Appointment: [facility] Cortez [facility]Ptel[facility] [phone] [facility] [facility] 02/11/2015 Patient Education: Patient Medication [...]
--- OUTSIDE RECORDS SUMMARY | 2018-06-01 13:00 | XMS REPORT | CCD ---
Author Author [facility] Organization [facility] Address [address] [place] [address] Phone Care Team Providers Care Practice Management Consultant Name Role Phone PP Unavailable CCM Unavailable Summary Purpose Interface Exchange Insurance Providers Payer name Policy type / Coverage type Covered democrat ID Effective Begin Date Effective End Date WPS Medicare Part B Medicare Part B [id number] Unknown [facility] Life Insurance Medicare Part B [id number] Unknown Family history Mother Diagnosis Age At [...] spouses - 02/11/[address]: 830573030 Never smoker 02/11/2015 Alcohol history Unknown occasionally drinks alcohol 02/11/2015 Allergies, Adverse Reactions, Alerts Substance Reaction Codes Entered Date Inactivated Date Status CODEINE RxNorm: 2670 02/11/2015 No Inactive Date Active allergy Unknown 12/23/2016 No Inactive Date Active ciprofloxacin rash, RxNorm: 30920 02/26/2015 No Inactive Date Active hydrocodone Unknown 02/11/2015 No Inactive Date Active PREDNISONE RxNorm: 8640 03/29/2018 No Inactive Date Active GABAPENTIN Unknown 12/23/2016 No Inactive Date Active SULFA (SULFONAMIDES) Unknown 02/11/2015 No Inactive Date Active Past Medical History Illness Codes Condition Status Onset Date Resolved Date Dysuria ICD-9: 788.1 ICD-10: R30.0 Active 02/20/2015 Unknown Essential (primary) hypertension ICD-9: 401.1 ICD-10: I10 Active 04/01/2018 Unknown Headache ICD-9: 784.0 ICD-10: R51 Active [...] Dysuria ICD-9: 788.1 ICD-10: R30.0 02/20/2015 Active Essential (primary) hypertension ICD-9: 401.1 ICD-10: I10 04/01/2018 Active Headache ICD-9: 784.0 ICD-10: R51 07/06/2016 [...] Date Stop Date Status Fill Instructions ketorolac 30 mg/mL injection solution RxNorm: 775472 2 Milliliter(s) Inj 04/04/2018 04/04/2018 Inactive ceftriaxone 500 mg solution for injection RxNorm: 1642893 Inj 04/04/2018 04/04/2018 Inactive ondansetron 4 mg disintegrating tablet RxNorm: 602100 1 Tablet(s) PO TID as needed nausea 04/04/2018 No Stop Date Active nystatin 100,000 unit/mL oral suspension RxNorm: 525060 4 Milliliter(s) PO QID 04/01/2018 04/05/2018 Active doxycycline hyclate 100 mg tablet RxNorm: 7975721 1 Tablet(s) PO BID 04/01/2018 04/10/2018 Active prednisone 10 mg tablet RxNorm: 943008 1 Tablet(s) PO UD 6 pills on day 1 and 2 and then decrease by one pill every other day until prescription is done 03/24/2018 No Stop Date Active amoxicillin 500 mg capsule RxNorm: 942818 1 Capsule(s) PO TID 03/24/2018 04/02/2018 Inactive metoprolol succinate ER 50 mg tablet,extended release 24 hr RxNorm: 809459 Tablet (s) TAKE 1 TABLET BY MOUTH DAILY 03/21/2018 10/16/2018 Active PLEASE SEND REFILL REQUESTS ELECTRONICALLY!! Synthroid 88 mcg tablet RxNorm: 352114 TAKE 1 TABLET BY MOUTH DAILY 03/08/2018 08/04/2018 Active 03/07/2018 11:21:21 AM pravastatin 80 mg tablet RxNorm: 066275 Tablet(s) 1 Tablet(s) PO daily 03/01/2018 02/23/2019 Active Kenalog 40 mg/mL suspension for injection RxNorm: 2882897 Milliliter(s) Inj 12/24/2017 12/24/2017 Inactive cetirizine 10 mg tablet RxNorm: 4500409 TAKE 1 TABLET BY MOUTH DAILY 12/21/2017 07/18/2018 Active Generic For:*ZYRTEC 10 MG TABLET 12/21/2017 10:08:05 AM Synthroid 88 mcg tablet RxNorm: 117714 TAKE 1 TABLET BY MOUTH DAILY 12/07/2017 03/06/2018 Inactive 12/06/2017 11:46:49 AM Lipitor 80 mg tablet RxNorm: 698194 1 Tablet(s) PO daily 201702/28/2018 Inactive pravastatin 80 mg tablet RxNorm: 856092 1 Tablet(s) PO daily 11/29/2017 Inactive Lipitor 80 mg tablet RxNorm: 605193 1 Tablet(s) PO daily 201711/28/2017 Inactive lisinopril 20 mg tablet RxNorm: 387311 TAKE 1 TABLET BY MOUTH TWICE DAILY 11/23/2017 04/21/2018 Active Generic For:*PRINIVIL 20 MG TABLET 11/23/2017 11:29:44 AM Macrobid 100 mg capsule RxNorm: 970457 1 Capsule(s) PO BID 06/201711/25/2017 Inactive Macrobid 100 mg capsule RxNorm: 670778 1 Capsule(s) PO BID 06/201711/18/2017 Inactive Lomotil 2.5 mg-0.025 mg tablet RxNorm: 1027734 1 -2 Tablet(s) PO TID as needed 11/19/2017 11/25/2017 Inactive Lomotil 2.5 mg-0.025 mg tablet RxNorm: 3869061 1 -2 Tablet(s) PO TID as needed 11/19/2017 11/18/2017 Inactive Pyridium 200 mg tablet RxNorm: 4269993 1 Tablet(s) PO TID as needed 11/18/2017 11/22/2017 Inactive Augmentin 500 mg-125 mg tablet RxNorm: 779481 1 Tablet(s) PO TID 11/18/2017 11/27/2017 Inactive Keflex 500 mg capsule RxNorm: 240548 1 Capsule(s) PO TID 201711/09/2017 Inactive Denavir 1 % topical cream RxNorm: 773684 1 TOP TID as needed cold sores 11/01/2017 01/29/2018 Inactive Denavir 1 % topical cream RxNorm: 071728 1 TOP TID as needed cold sores 11/01/2017 10/31/2017 Inactive Synthroid 88 mcg tablet RxNorm: 578580 TAKE 1 TABLET BY MOUTH DAILY 09/29/2017 11/27/2017 Inactive 09/29/2017 12:58:07 PM pravastatin 80 mg tablet RxNorm: 874669 1 Tablet(s) PO daily 08/30/2017 Inactive pravastatin 80 mg tablet RxNorm: 508986 1 Tablet(s) PO daily 11/28/2017 Inactive Synthroid 88 mcg tablet RxNorm: 100997 TAKE 1 TABLET BY MOUTH DAILY 08/30/2017 09/28/2017 Inactive 08/30/2017 10:53:26 AM metoprolol succinate ER 50 mg tablet,extended release 24 hr RxNorm: 795568 Tablet (s) TAKE 1 TABLET BY MOUTH DAILY 08/17/2017 03/14/2018 Inactive PLEASE SEND REFILL REQUESTS ELECTRONICALLY!! lisinopril 20 mg tablet RxNorm: 518457 TAKE 1 TABLET BY MOUTH TWICE DAILY 06/18/2017 11/14/2017 Inactive Generic For:*PRINIVIL 20 MG TABLET 06/18/2017 1:31: 00 PM Synthroid 88 mcg tablet RxNorm: 151001 TAKE 1 TABLET BY MOUTH DAILY 05/24/2017 08/21/2017 Inactive 05/24/2017 2:13:21 PM cetirizine 10 mg tablet RxNorm: 7683629 1 Tablet(s) PO daily 12/12/2017 Inactive Zithromax Z-Russell 250 mg capsule RxNorm: 374533 1 Capsule(s) PO 04/02/2017 04/05/2017 Inactive Zithromax Z-Russell 250 mg tablet RxNorm: 384579 1 Tablet(s) PO 04/01/2017 Inactive Zithromax Z-Russell 250 mg capsule RxNorm: 065507 1 Capsule(s) PO 04/02/2017 04/01/2017 Inactive Zithromax Z-Russell 250 mg tablet RxNorm: 331042 1 Tablet(s) PO 04/06/2017 Inactive Ventolin HFA 90 mcg/actuation aerosol inhaler RxNorm: 622321 2 INH QID as needed - for the first 3 days inhale at least two puffs three times daily, then use as needed for shortness of breath 04/01/2017 04/30/2017 Inactive Keflex 500 mg capsule RxNorm: 268057 1 Capsule(s) PO TID 201604/01/2017 Inactive meclizine 25 mg tablet RxNorm: 993602 1 Tablet(s) PO Q6 PRN 1 Tablet(s) PO Q6 PRN 03/25/2017 No Stop Date Active dizziness meclizine 25 mg tablet RxNorm: 449864 Tablet(s) 1 Tablet(s) PO Q6 PRN 03/25/2017 03/24/2017 Inactive dizziness Kenalog 40 mg/mL suspension for injection RxNorm: 9916379 1 Milliliter(s) Inj 03/25/2017 03/25/2017 Inactive meclizine 25 mg tablet RxNorm: 846932 1 Tablet(s) PO Q6 PRN 03/24/2017 Inactive dizziness lisinopril 20 mg tablet RxNorm: 176023 1 Tablet(s) PO BID 01/1506/13/2017 Inactive metoprolol succinate ER 50 mg tablet,extended release 24 hr RxNorm: 784492 TAKE 1 TABLET BY MOUTH DAILY 01/07/20172017 Inactive Generic For:TOPROL XL 50MG TAB 01/07/2017 12:38:23 PM Synthroid 88 mcg tablet RxNorm: 969751 TAKE 1 TABLET BY MOUTH DAILY 12/25/2016 05/23/2017 Inactive 12/25/2016 9:47:08 AM Zithromax Z-Russell 250 mg tablet RxNorm: 026160 Tablet(s) PO UD 03/24/2017 Inactive meclizine 25 mg tablet RxNorm: 692222 1 Tablet(s) PO Q6 PRN 12/20/2016 Inactive dizziness Kenalog 40 mg/mL suspension for injection RxNorm: 0937686 Milliliter(s) Inj 12/08/2016 12/08/2016 Inactive meloxicam 15 mg tablet RxNorm: 515871 1 Tablet(s) PO daily 12/20/2016 Inactive cetirizine 10 mg tablet RxNorm: 5689931 1 Tablet(s) PO daily 05/16/2017 Inactive pravastatin 40 mg tablet RxNorm: 992754 1 Tablet(s) PO BID 07/201608/30/2017 Inactive Cancel 80 mg tab lisinopril 20 mg tablet RxNorm: 491344 1 Tablet(s) PO BID 08/1212/22/2016 Inactive Synthroid 88 mcg tablet RxNorm: 011794 1 Tablet(s) PO TAKE ONE (1) TABLET BY MOUTH DAILY 07/28/2016 12/24/2016 Inactive decrease dose hydralazine 25 mg tablet RxNorm: 354094 1 Tablet(s) PO TID as needed for Systolic blood pressure over 170 07/06/20162016 Inactive lisinopril 20 mg tablet RxNorm: 450256 1 Tablet(s) PO BID to replace your other lisinopril dose 07/06/2016 08/04/2016 Inactive lisinopril 10 mg tablet RxNorm: 253062 TAKE ONE TABLET BY MOUTH TWICE DAILY 06/10/2016 08/11/2016 Inactive Generic For:ZESTRIL 10 MG TABLET 06/09/2016 12:58: 50 PM triamcinolone acetonide 0.1 % topical cream RxNorm: 2679547 1 Application TOP TID as needed 06/01/2016 No Stop Date Active nystatin 100,000 unit/gram topical cream RxNorm: 602894 1 Gram(s) TOP TID as needed 06/01/2016 No Stop Date Active metoprolol succinate ER 50 mg tablet,extended release 24 hr RxNorm: 629499 1 Tablet(s) PO daily 05/26/2016 12/21/2016 Inactive cetirizine 10 mg tablet RxNorm: 2620078 1 Tablet(s) PO daily 10/18/2016 Inactive Synthroid 88 mcg tablet RxNorm: 072761 1 Tablet(s) PO TAKE ONE (1) TABLET BY MOUTH DAILY 03/06/2016 03/07/2018 Inactive Brand name only! Synthroid 88 mcg tablet RxNorm: 644035 1 Tablet(s) PO TAKE ONE (1) TABLET BY MOUTH DAILY 03/04/2016 03/05/2016 Inactive decrease dose cetirizine 10 mg tablet RxNorm: 1121211 1 Tablet(s) PO daily 03/22/2016 Inactive amoxicillin 500 mg capsule RxNorm: 696400 1 Capsule(s) PO TID 02/27/2016 03/04/2016 Inactive lisinopril 10 mg tablet RxNorm: 153476 TAKE ONE TABLET BY MOUTH TWICE DAILY 02/06/2016 06/04/2016 Inactive Generic For:ZESTRIL 10 MG TABLET 02/06/2016 12:16: 38 PM Synthroid 100 mcg tablet RxNorm: 083710 TAKE ONE (1) TABLET BY MOUTH DAILY 01/03/2016 03/03/2016 Inactive 01/03/2016 10:35:14 AM N O T I C E Last quantity doesn't match original quantity lisinopril 10 mg tablet RxNorm: 742965 1 Tablet(s) PO BID 10/0301/31/2016 Inactive Synthroid 100 mcg tablet RxNorm: 964487 1 Tablet(s) PO daily 01/02/2016 Inactive metoprolol succinate ER 50 mg tablet,extended release 24 hr RxNorm: 109203 1 Tablet(s) PO daily 10/04/2015 04/30/2016 Inactive Tylenol Arthritis 650 mg tablet,extended release RxNorm: 1010374 2 Tablet(s) PO TID 09/10/2015 No Stop Date Active metoprolol succinate ER 50 mg tablet,extended release 24 hr RxNorm: 419677 1 Tablet(s) PO daily 09/05/2015 10/03/2015 Inactive pravastatin 80 mg tablet RxNorm: 310298 1 Tablet(s) PO QHS 08/30/2015 Inactive pravastatin 40 mg tablet RxNorm: 553674 1 Tablet(s) PO BID 08/29/2015 Inactive Cancel 80 mg tab pravastatin 40 mg tablet RxNorm: 922895 1 Tablet(s) PO BID 08/19/2016 Inactive Cancel 80 mg tab lisinopril 10 mg tablet RxNorm: 580588 1 Tablet(s) PO BID 06/1308/11/2016 Inactive lisinopril 10 mg tablet RxNorm: 831823 1 Tablet(s) PO BID 06/1310/03/2015 Inactive Synthroid 100 mcg tablet RxNorm: 684580 1 Tablet(s) PO daily 10/03/2015 Inactive ceftriaxone 1 gram solution for injection RxNorm: 0983652 Inj 03/01/2015 03/01/2015 Inactive ceftriaxone 1 gram solution for injection RxNorm: 7752007 Inj 02/28/2015 02/28/2015 Inactive ceftriaxone 1 gram solution for injection RxNorm: 4532039 Inj 02/27/2015 02/27/2015 Inactive ceftriaxone 1 gram solution for injection RxNorm: 8920586 Inj 02/26/2015 02/26/2015 Inactive ceftriaxone 1 gram solution for injection RxNorm: 4307061 Inj 02/25/2015 02/25/2015 Inactive phenazopyridine 200 mg tablet RxNorm: 0999307 1 Tablet(s) PO Q8 02/21/2015 02/20/2015 Inactive Cipro 500 mg tablet RxNorm: 787008 1 Tablet(s) PO BID 201402/20/2015 Inactive phenazopyridine 200 mg tablet RxNorm: 9285045 1 Tablet(s) PO Q8 02/21/2015 02/25/2015 Inactive Cipro 500 mg tablet RxNorm: 854686 1 Tablet(s) PO BID 201402/27/2015 Inactive lisinopril 10 mg tablet RxNorm: 161212 1 Tablet(s) PO BID 02/1406/12/2015 Inactive metoprolol succinate ER 50 mg tablet,extended release 24 hr RxNorm: 980139 3/4 Tablet(s) PO daily 02/11/2015 09/04/2015 Inactive Voltaren 1 % topical gel RxNorm: 207036 2 Gram(s) TOP QID use this on affected joints up to four times daily. 02/11/2015 03/12/2015 Inactive Probiotic oral RxNorm : 6205 oral No Start Date Active aspirin 81 mg tablet RxNorm: 820125 1 Tablet(s) PO daily No Start Date Active Super B-Complex tablet RxNorm: 1 Tablet(s) PO No Start Date Active Flonase Allergy Relief 50 mcg/actuation nasal spray, suspension RxNorm: 9723336 1 [place] NASAL BID No Start Date Active Super-D3+ oral RxNorm : oral No Start Date Active Prilosec OTC 20 mg tablet,delayed release RxNorm: 171929 2 Tablet(s) PO QAM No Start Date Active Flonase Allergy Relief 50 mcg/actuation nasal spray, suspension RxNorm: 3692291 1 [place] NASAL as needed No Start Date Active Move Free Ultra 40 mg-10 mg-3.3 mg tablet RxNorm: 1 Tablet(s) PO daily No Start Date Active metoprolol tartrate 50 mg tablet RxNorm: 550365 1 Tablet(s) PO daily No Start Date 02/10/2015 Inactive lisinopril 10 mg tablet RxNorm: 423625 1 Tablet(s) PO BID No Start Date 02/13/2015 Inactive pravastatin 80 mg tablet RxNorm: 011322 1 Tablet(s) PO daily No Start Date 08/29/2015 Inactive Synthroid 100 mcg tablet RxNorm: 088146 1 Tablet(s) PO daily No Start Date 06/09/2015 Inactive lisinopril 40 mg tablet RxNorm: 607605 1 Tablet(s) PO BID No Start Date 02/28/2018 Inactive Tylenol Arthritis 650 mg tablet,extended release RxNorm: 2611438 4 Tablet(s) PO daily No Start Date 09/09/2015 Inactive Medication Administered Medication Codes Instructions Start Date Status ceftriaxone 500 mg solution for injection RxNorm: 0867165 04/04/2018 Active ketorolac 30 mg/mL injection solution RxNorm: 646438 2Milliliter 04/04/2018 Active Kenalog 40 mg/mL suspension for injection RxNorm: 1838191 Milliliter 12/24/2017 No longer Active Kenalog 40 mg/mL suspension for injection RxNorm: 0191671 1Milliliter 03/25/2017 No longer Active Kenalog 40 mg/mL suspension for injection RxNorm: 4406296 Milliliter 12/08/2016 No longer Active ceftriaxone 1 gram solution for injection RxNorm: 7504323 03/01/2015 No longer Active ceftriaxone 1 gram solution for injection RxNorm: 1583815 02/28/2015 No longer Active ceftriaxone 1 gram solution for injection RxNorm: 9271947 02/27/2015 No longer Active ceftriaxone 1 gram solution for injection RxNorm: 6069459 02/26/2015 No longer Active ceftriaxone 1 gram solution for injection RxNorm: 8553129 02/25/2015 No longer Active Immunizations Vaccine Codes Date Status Influenza CVX: 141 01/18/2018 completed Influenza CVX: 141 03/15/2017 completed Influenza CVX: 141 03/18/2016 completed Influenza CVX: 141 02/11/2015 completed Assessments Condition Codes Effective Dates Essential (primary) hypertension ICD-10: I10 ICD-9: 401.1 04/04/2018 Headache ICD-10: R51 ICD-9: 784.0 04/04/2018 Dysuria ICD-10: R30.0 ICD-9: 788.1 04/04/2018 Nausea ICD-10: R11.0 ICD-9: 787.02 04/04/2018 [...] Item Item Code Result Date Free T4 Dmb590 FREE T4 1.07 ng/dL 04/04/2018 Tsh Ord6 TSH (3rd IS) 1.93 uIU/mL 04/04/2018 Urine Culture Ucult Preliminary NO Growth Day 1 03/28/2018 Urine Culture Ucult Complete NO Growth Day 2 03/28/2018 Urine Culture Ucult Complete >100,000 col/ml aerobic growth sent to ref lab 11/19/2017 B12 Elj369 B12 712.00 pg/ml 09/28/2017 C-Reactive Protein Qnt Crqnt CRP 0.1 mg/dl 09/23/2017 Comp Metabolic Ekz238 NA 139 mEq/L 09/23/2017 Comp Metabolic Fui553 K 4.8 mEq/L 09/23/2017 Comp Metabolic Dnm655 CL 104 mEq/L 09/23/2017 Comp Metabolic Xth011 CO2 28.0 mEq/L 09/23/2017 Comp Metabolic Iho615 ANION GAP 12 09/23/2017 Comp Metabolic Cej356 GLUCOSE 92 mg/dL 09/23/2017 Comp Metabolic Zjs283 Creat 0.7 mg/dL 09/23/2017 Comp Metabolic Ahl287 eGFR 91 ml/min/1.73m2 09/23/2017 Comp Metabolic Vtw486 BUN 11 mg/dL 09/23/2017 Comp Metabolic Fus235 B/C Ratio 16.4 Ratio 09/23/2017 Comp Metabolic Yds454 CALCIUM 9.0 mg/dL 09/23/2017 Comp Metabolic Xet597 ALK PHOS 76 U/L 09/23/2017 Comp Metabolic Hge710 AST(SGOT) 24 U/L 09/23/2017 Comp Metabolic Hdu884 ALT(SGPT) 21 U/L 09/23/2017 Comp Metabolic Ktc275 BILI T 0.3 mg/dL 09/23/2017 Comp Metabolic Vgh541 ALBUMIN 4.1 g/dL 09/23/2017 Comp Metabolic Rol927 TPRO 6.2 g/dL 09/23/2017 Comp Metabolic Icv544 GLOB 2.1 g/dL 09/23/2017 Comp Metabolic Ykj613 A/G Ratio 1.9 Ratio 09/23/2017 Comp Metabolic Vup655 Osmo 277 mOsmo 09/23/2017 Sed Rate Ord21 ESR 3 mm/hr 09/22/2017 Vitamin D 25 Oh Kqu4317 VITAMIN D, 25 HYDROXY 78.79 ng/mL Tsh [...] 97.1 fl 09/22/2017 Cbc With Differential Ord2 [place]% 10.5 % 09/22/2017 Cbc With Differential Ord2 [...] 2.37 K/ul 09/22/2017 Cbc With Differential Ord2 [place] ABS# 0.9 K/ul 09/22/2017 Cbc With Differential Ord2 Eos ABS# 0.2 K/ul 09/22/2017 Cbc With Differential Ord2 Baso ABS# 0.0 K/ul 09/22/2017 Free T4 Eun487 FREE T4 0.99 ng/dL 09/22/2017 %Hba1C Jkj235 % HbA1c 95406-2 6.0 % 12/10/2016 %Hba1C Ohy042 Gluc Ave 126 mg/dL 12/10/2016 Tsh Ord6 hTSH II 0.89 uIU/mL 12/09/2016 Free T4 Whq722 FREE T4 0.99 ng/dL 12/09/2016 Comp Metabolic Uhk971 NA 138 mEq/L 12/09/2016 Comp Metabolic Cdm715 K 5.2 mEq/L 12/09/2016 Comp Metabolic Pjt123 CL 104 mEq/L 12/09/2016 Comp Metabolic Cks091 CO2 29.0 mEq/L 12/09/2016 Comp Metabolic Qbg602 ANION GAP 10 12/09/2016 Comp Metabolic Qtm887 GLUCOSE 135 mg/dL 12/09/2016 Comp Metabolic Wwa302 Creat 0.8 mg/dL 12/09/2016 Comp Metabolic Ysr766 eGFR 79 ml/min/1.73m2 12/09/2016 Comp Metabolic Fkj532 BUN 18 mg/dL 12/09/2016 Comp Metabolic Wmp953 B/C Ratio 23.7 Ratio 12/09/2016 Comp Metabolic Fri080 CALCIUM 9.5 mg/dL 12/09/2016 Comp Metabolic Zzo288 ALK PHOS 73 U/L 12/09/2016 Comp Metabolic Ixi779 AST(SGOT) 24 U/L 12/09/2016 Comp Metabolic Xrg904 ALT(SGPT) 20 U/L 12/09/2016 Comp Metabolic Okw584 BILI T 0.3 mg/dL 12/09/2016 Comp Metabolic Wrg949 ALBUMIN 4.3 g/dL 12/09/2016 Comp Metabolic Rqe520 TPRO 6.4 g/dL 12/09/2016 Comp Metabolic Hha053 GLOB 2.1 g/dL 12/09/2016 Comp Metabolic Awc927 A/G Ratio 2.0 Ratio 12/09/2016 Comp Metabolic Oif616 Osmo 280 mOsmo 12/09/2016 Cbc With Differential [...] 31.3 pg 12/09/2016 Cbc With Differential Ord2 [place]% 6.5 % 12/09/2016 Cbc With Differential Ord2 [...] 1.84 K/ul 12/09/2016 Cbc With Differential Ord2 [place] ABS# 0.6 K/ul 12/09/2016 Cbc With Differential Ord2 Eos ABS# 0.1 K/ul 12/09/2016 Cbc With Differential Ord2 Baso ABS# 0.1 K/ul 12/09/2016 Tsh Ord6 hTSH II 1.19 uIU/mL 09/02/2016 Free T4 Wad008 FREE T4 0.97 ng/dL 09/02/2016 Comp Metabolic Uni477 NA 137 mEq/L 06/01/2016 Comp Metabolic Dgi854 K 4.1 mEq/L 06/01/2016 Comp Metabolic Cah506 CL 104 mEq/L 06/01/2016 Comp Metabolic Dkl751 CO2 25.0 mEq/L 06/01/2016 Comp Metabolic Nxp697 ANION GAP 12 06/01/2016 Comp Metabolic Yoj702 GLUCOSE 108 mg/dL 06/01/2016 Comp Metabolic Zny443 Creat 0.8 mg/dL 06/01/2016 Comp Metabolic Ncz554 eGFR 80 ml/min/1.73m2 06/01/2016 Comp Metabolic Faf700 BUN 15 mg/dL 06/01/2016 Comp Metabolic Xhf315 B/C Ratio 20.0 Ratio 06/01/2016 Comp Metabolic Obb997 CALCIUM 9.1 mg/dL 06/01/2016 Comp Metabolic Tmc494 ALK PHOS 89 U/L 06/01/2016 Comp Metabolic Ltc631 AST(SGOT) 25 U/L 06/01/2016 Comp Metabolic Cjc512 ALT(SGPT) 20 U/L 06/01/2016 Comp Metabolic Vcn611 BILI T 0.3 mg/dL 06/01/2016 Comp Metabolic Cco644 ALBUMIN 4.2 g/dL 06/01/2016 Comp Metabolic Uwb261 TPRO 6.2 g/dL 06/01/2016 Comp Metabolic Apc921 GLOB 2.0 g/dL 06/01/2016 Comp Metabolic Wdd050 A/G Ratio 2.1 Ratio 06/01/2016 Comp Metabolic Jwt827 Osmo 275 mOsmo 06/01/2016 Free T4 Mfv055 FREE T4 0.94 ng/dL 06/01/2016 Tsh Ord6 [...] 31.1 pg 06/01/2016 Cbc With Differential Ord2 [place]% 8.4 % 06/01/2016 Cbc With Differential Ord2 [...] 2.96 K/ul 06/01/2016 Cbc With Differential Ord2 [place] ABS# 0.6 K/ul 06/01/2016 Cbc With Differential [...] 31.3 pg 02/27/2016 Cbc With Differential Ord2 [place]% 10.0 % 02/27/2016 Cbc With Differential Ord2 [...] 2.28 K/ul 02/27/2016 Cbc With Differential Ord2 [place] ABS# 0.9 K/ul 02/27/2016 Cbc With Differential Ord2 Eos ABS# 0.3 K/ul 02/27/2016 Cbc With Differential Ord2 Baso ABS# 0.1 K/ul 02/27/2016 Tsh Ord6 hTSH II 0.18 uIU/mL 02/27/2016 Free T4 Aii695 FREE T4 1.17 ng/dL 02/27/2016 Comp Metabolic Umc946 NA 135 mEq/L 02/27/2016 Comp Metabolic Hpb304 K 5.2 mEq/L 02/27/2016 Comp Metabolic Utp121 CL 102 mEq/L 02/27/2016 Comp Metabolic Kis967 CO2 27.0 mEq/L 02/27/2016 Comp Metabolic Saz754 ANION GAP 11 02/27/2016 Comp Metabolic Fpg532 GLUCOSE 93 mg/dL 02/27/2016 Comp Metabolic Gvb745 Creat 0.7 mg/dL 02/27/2016 Comp Metabolic Qyw952 eGFR 91 ml/min/1.73m2 02/27/2016 Comp Metabolic Msu147 BUN 14 mg/dL 02/27/2016 Comp Metabolic Czu678 B/C Ratio 20.9 Ratio 02/27/2016 Comp Metabolic Fvs055 CALCIUM 9.4 mg/dL 02/27/2016 Comp Metabolic Cfw552 ALK PHOS 100 U/L 02/27/2016 Comp Metabolic Umb045 AST(SGOT) 23 U/L 02/27/2016 Comp Metabolic Cxf363 ALT(SGPT) 24 U/L 02/27/2016 Comp Metabolic Auz202 BILI T 0.2 mg/dL 02/27/2016 Comp Metabolic Ocp095 ALBUMIN 4.3 g/dL 02/27/2016 Comp Metabolic Yjc252 TPRO 6.3 g/dL 02/27/2016 Comp Metabolic Vgc087 GLOB 2.1 g/dL 02/27/2016 Comp Metabolic Lbx429 A/G Ratio 2.1 Ratio 02/27/2016 Comp Metabolic Dji093 Osmo 270 mOsmo 02/27/2016 Free T4 Yov917 FREE T4 1.03 ng/dL 05/10/2015 Comp Metabolic Wev284 NA 137 mEq/L 05/10/2015 Comp Metabolic Kjo347 K 4.4 mEq/L 05/10/2015 Comp Metabolic Sra481 CL 102 mEq/L 05/10/2015 Comp Metabolic Tpi536 CO2 28.0 mEq/L 05/10/2015 Comp Metabolic Wri023 ANION GAP 11 05/10/2015 Comp Metabolic Jfa380 GLUCOSE 108 mg/dL 05/10/2015 Comp Metabolic Uwl905 Creat 0.7 mg/dL 05/10/2015 Comp Metabolic Bix099 eGFR 86 ml/min/1.73m2 05/10/2015 Comp Metabolic Efd685 BUN 13 mg/dL 05/10/2015 Comp Metabolic Gdk196 B/C Ratio 18.3 Ratio 05/10/2015 Comp Metabolic Tpu471 CALCIUM 9.4 mg/dL 05/10/2015 Comp Metabolic Thu494 ALK PHOS 94 U/L 05/10/2015 Comp Metabolic Gej738 AST(SGOT) 22 U/L 05/10/2015 Comp Metabolic Sub891 ALT(SGPT) 21 U/L 05/10/2015 Comp Metabolic Zej016 BILI T 0.3 mg/dL 05/10/2015 Comp Metabolic Vvd922 ALBUMIN 3.9 g/dL 05/10/2015 Comp Metabolic Jru577 TPRO 6.1 g/dL 05/10/2015 Comp Metabolic Veg499 GLOB 2.2 g/dL 05/10/2015 Comp Metabolic Elu515 A/G Ratio 1.7 Ratio 05/10/2015 Comp Metabolic Wej522 Osmo 274 mOsmo 05/10/2015 Tsh Ord6 hTSH [...] 29.4 pg 05/10/2015 Cbc With Differential Ord2 [place]% 9.0 % 05/10/2015 Cbc With Differential Ord2 [...] 2.14 K/ul 05/10/2015 Cbc With Differential Ord2 [place] ABS# 0.5 K/ul 05/10/2015 Cbc With Differential [...] Ord30 C/HDL 3.8 Ratio 05/10/2015 Culture Urine [id number] URINE CULTURE SEE NOTES 02/25/2015 Culture Urine [id number] Continued Results 02/25/2015 Urine Culture Ucult Complete >100,000 col/ml aerobic growth sent to ref lab 02/22/2015 Free T4 Lcy816 FREE T4 1.16 ng/dL 02/11/2015 Tsh Ord6 [...] Procedure Codes Date THER/PROPH/DIAG INJ SC/IM CPT-4: 59353 04/04/2018 ROCEPHIN, PER 250 MG CPT-4: J0696 04/04/2018 KETOROLAC TROMETHAMINE INJ CPT-4: J1885 04/04/2018 URINALYSIS NONAUTO W/O SCOPE CPT-4: 24552 03/24/2018 PPPS, SUBSEQ VISIT CPT -4: G0439 12/24/2017 THER/PROPH/DIAG INJ SC/IM CPT-4: 20218 12/24/2017 TRIAMCINOLONE ACET INJ NOS CPT-4: J3301 12/24/2017 THER/PROPH/DIAG INJ SC/IM CPT-4: 96164 11/18/2017 ROCEPHIN, PER 250 MG CPT-4: J0696 11/18/2017 PRESCRIP TRANSMIT VIA ERX SY CPT-4: G8553 04/01/2017 TRIAMCINOLONE ACET INJ NOS CPT-4: J3301 03/25/2017 PPPS, SUBSEQ VISIT CPT -4: G0439 12/23/2016 THER/PROPH/DIAG INJ SC/IM CPT-4: 29769 12/08/2016 TRIAMCINOLONE ACET INJ NOS CPT-4: J3301 12/08/2016 PRESCRIP TRANSMIT VIA ERX SY CPT-4: G8553 12/08/2016 PRESCRIP TRANSMIT VIA ERX SY CPT-4: G8553 11/30/2016 URINALYSIS NONAUTO W/O SCOPE CPT-4: 94835 07/08/2016 PRESCRIP TRANSMIT VIA ERX SY CPT-4: G8553 06/01/2016 PRESCRIP TRANSMIT VIA ERX SY CPT-4: G8553 02/27/2016 THER/PROPH/DIAG INJ SC/IM CPT-4: 45572 03/01/2015 ROCEPHIN, PER 250 MG CPT-4: J0696 03/01/2015 THER/PROPH/DIAG INJ SC/IM CPT-4: 88010 02/28/2015 ROCEPHIN, PER 250 MG CPT-4: J0696 02/28/2015 THER/PROPH/DIAG INJ SC/IM CPT-4: 47316 02/27/2015 ROCEPHIN, PER 250 MG CPT-4: J0696 02/27/2015 THER/PROPH/DIAG INJ SC/IM CPT-4: 24311 02/26/2015 ROCEPHIN, PER 250 MG CPT-4: J0696 02/26/2015 THER/PROPH/DIAG INJ SC/IM CPT-4: 66597 02/25/2015 ROCEPHIN, PER 250 MG CPT-4: J0696 02/25/2015 URINALYSIS NONAUTO W/O SCOPE CPT-4: 93915 02/21/2015 Vital Signs Date Vital 04/04/2018 Blood Pressure 1: 130/60 Code : 8480-6 Heart Rate 1: 78 bpm Height: Weight: 04/01/2018 Blood Pressure 1: 134/58 Code : 8480-6 BMI: 27.8 Code : 48803-1 Heart Rate 1 : 85 bpm Height: 5'3" SpO2: 96% Weight: 157 lbs 03/24/2018 Blood Pressure 1: 128/82 Code : 8480-6 BMI: 27.8 Code : 62691-5 Heart Rate 1 : 84 bpm Height: 5'3" SpO2: 97% Weight: 157 lbs 03/01/2018 Blood Pressure 1: 136/70 Code : 8480-6 BMI: 27.8 Code : 40623-7 Heart Rate 1 : 70 bpm Height: 5'3" SpO2: 96% Weight: 157 lbs 12/24/2017 Height: Weight: 11/18/2017 Blood Pressure 1: 164/74 Code : 8480-6 BMI: 27.6 Code : 93636-4 Heart Rate 1 : 70 bpm Height: 5'3" SpO2: 96% Weight: 156 lbs 11/03/2017 Blood Pressure 1: 118/72 Code : 8480-6 BMI: 27.6 Code : 00496-1 Heart Rate 1 : 82 bpm Height: 5'3" SpO2: 96% Weight: 156 lbs 09/22/2017 Blood Pressure 1: 136/68 Code : 8480-6 BMI: 27.6 Code : 89679-2 Heart Rate 1 : 70 bpm Height: 5'3" SpO2: 97% Weight: 156 lbs 04/01/2017 Blood Pressure 1: 144/82 Code : 8480-6 Heart Rate 1: 68 bpm Height: 5'3" SpO2: 97% Weight: 03/25/2017 Blood Pressure 1: 116/70 Code : 8480-6 BMI: 26.7 Code : 81241-0 Heart Rate 1 : 67 bpm Height: 5'3" SpO2: 98% Weight: 151 lbs 12/23/2016 BMI: 26.7 Code: 74640-9 Height: 5'3" Weight: 151 lbs 12/22/2016 Blood Pressure 1: 142/60 Code : 8480-6 BMI: 26.7 Code : 17564-9 Heart Rate 1 : 67 bpm Height: 5'3" SpO2: 98% Weight: 151 lbs 12/08/2016 Blood Pressure 1: 140/72 Code : 8480-6 Heart Rate 1: 72 bpm Height: 5'3" SpO2: 97% Weight: 11/30/2016 Blood Pressure 1: 128/80 Code : 8480-6 BMI: 26.7 Code : 23132-8 Heart Rate 1 : 63 bpm Height: 5'3" SpO2: 96% Weight: 151 lbs 09/28/2016 Blood Pressure 1: 130/80 Code : 8480-6 BMI: 27.1 Code : 90297-4 Heart Rate 1 : 80 bpm Height: 5'3" SpO2: 97% Weight: 153 lbs 07/06/2016 Blood Pressure 1: 162/72 Code : 8480-6 BMI: 27.6 Code : 02045-2 Heart Rate 1 : 72 bpm Height: 5'3" SpO2: 98% Weight: 156 lbs 06/01/2016 Blood Pressure 1: 122/66 Code : 8480-6 BMI: 27.5 Code : 76007-3 Heart Rate 1 : 73 bpm Height: 5'3" SpO2: 98% Weight: 155 lbs 8 oz 02/27/2016 Blood Pressure 1: 126/68 Code : 8480-6 BMI: 26.9 Code : 95806-0 Heart Rate 1 : 70 bpm Height: 5'3" SpO2: 98% Weight: 152 lbs 09/10/2015 Blood Pressure 1: 130/70 Code : 8480-6 BMI: 26.9 Code : 10734-2 Heart Rate 1 : 72 bpm Height: 5'3" SpO2: 97% Weight: 152 lbs 05/14/2015 Blood Pressure 1: 138/82 Code : 8480-6 BMI: 26.4 Code : 37034-7 Heart Rate 1 : 75 bpm Height: 5'3" SpO2: 98% Weight: 149 lbs 02/11/2015 Blood Pressure 1: 128/72 Code : 8480-6 BMI: 25.5 Code : 31131-1 Heart Rate 1 : 73 bpm Height: [...] data Encounters Encounter Performer Location Codes Date 24787 EST. PATIENT, LEVEL III Diagnosis: Essential (primary) hypertension[ICD10: I10] Diagnosis: Dysuria[ICD10: R30.0] Diagnosis: Nausea[ICD10: R11.0] Diagnosis: Headache[ICD10: R51] Elen Cortez MD, [facility] CPT-4: 70244 04/04/2018 40125 EST. PATIENT, LEVEL III Diagnosis: Other acute sinusitis[ICD10: J01.80] Diagnosis: Dizziness and giddiness[ICD10: R42] Diagnosis: Dysuria[ICD10: R30.0] Diagnosis: Candidal stomatitis[ICD10: B37.0] Diagnosis: Essential (primary) hypertension[ICD10: I10] Diagnosis: Other fatigue[ICD10: R53.83] Diagnosis: Other malaise[ICD10: R53.81] Bridget Cortez MD, [facility] CPT-4 : 38848 04/01/2018 ([id number]) 47686 EST. 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 PATIENT, LEVEL IV Diagnosis: Otalgia, right ear[ICD10: H92.01] Diagnosis: Headache[ICD10: R51] Diagnosis: Other fatigue[ICD10: R53.83] Diagnosis: Abnormal findings on diagnostic imaging of other specified body structures[ICD10: R93.89] Elen Cortez MD, [facility] CPT-4: 45473 03/01/2018 61713 EST. PATIENT, LEVEL III Diagnosis: Acute cystitis with hematuria[ICD10: N30.01] Bridget Cortez MD, [facility] CPT-4: 64751 11/18/2017 38434 EST. PATIENT, LEVEL IV Diagnosis: Other acute sinusitis[ICD10: J01.80] Diagnosis: Otalgia, right ear[ICD10: H92.01] Bridget Cortez MD, [facility] CPT -4: 98062 11/03/2017 92955 EST. PATIENT, LEVEL III Diagnosis: Other fatigue[ICD10: R53.83] Diagnosis: Other malaise[ICD10: R53.81] Diagnosis: Pain in left knee[ICD10: M25.562] Diagnosis: Pain in right knee[ICD10: M25.561] Bridget Cortez MD, [facility] CPT-4: 70781 09/22/2017 ([id number]) 34876 EST. PATIENT, LEVEL III Diagnosis: Cough[ICD10: R05] Diagnosis: Acute bronchitis due to other specified organisms[ICD10: J20.8] Elen Cortez MD, [facility] CPT-4: 61341 04/01/2017 ([id number]) 38271 EST. PATIENT, LEVEL III Diagnosis: Otalgia, right ear[ICD10: H92.01] Diagnosis: Other allergic rhinitis[ICD10: J30.89] Shiela Cortez MD, [facility] CPT-4: 80623 03/25/2017 ([id number]) 99744 EST. PATIENT, LEVEL III Diagnosis: Benign paroxysmal vertigo, bilateral[ICD10: H81.13] Shiela Cortze MD, [facility] CPT-4: 89377 12/22/2016 ([id number]) 90801 EST. PATIENT, LEVEL IV Diagnosis: Benign paroxysmal vertigo, bilateral[ICD10: H81.13] Diagnosis: Other allergic rhinitis[ICD10: J30.89] Diagnosis: Hypothyroidism, unspecified[ICD10: E03.9] Shiela Cortez MD, [facility] CPT-4: 70458 12/08/2016 ([id number]) 80101 EST. PATIENT, LEVEL IV Diagnosis: Atrophy of thyroid (acquired)[ICD10: E03.4] Diagnosis: Essential (primary) hypertension[ICD10: I10] Diagnosis: Mixed hyperlipidemia[ICD10: E78.2] Elen Cortez MD, [facility] CPT-4: 88916 11/30/2016 07680 EST. PATIENT, LEVEL IV Diagnosis: Headache[ICD10: R51] Diagnosis: Other fatigue[ICD10: R53.83] Diagnosis: Dizziness and giddiness[ICD10: R42] Bridget Cortez MD, [facility] CPT-4: 50552 09/28/2016 31433 EST. PATIENT, LEVEL IV Diagnosis: Essential (primary) hypertension[ICD10: I10] Diagnosis: Headache[ICD10: R51] Bridegt Cortez MD, [facility] CPT-4: 38492 07/06/2016 ([id number]) 65310 EST. PATIENT, LEVEL IV Diagnosis: Essential (primary) hypertension[ICD10: I10] Diagnosis: Atrophy of thyroid (acquired)[ICD10: E03.4] Diagnosis: Mixed hyperlipidemia[ICD10: E78.2] Elen Cortez MD, [facility] CPT-4: 02742 06/01/2016 21786 EST. PATIENT, LEVEL IV Diagnosis: Acute laryngopharyngitis[ICD10: J06.0] Diagnosis: Other allergic rhinitis[ICD10: J30.89] Diagnosis: Other specified hypothyroidism[ICD10: E03.8] Diagnosis: Other fatigue[ICD10: R53.83] Bridget Cortez MD, [facility] CPT-4 : 69040 02/27/2016 ([id number]) 61379 EST. PATIENT, LEVEL III Diagnosis: Essential (primary) hypertension[ICD10: I10] Diagnosis: Mixed hyperlipidemia[ICD10: E78.2] Elen Cortez MD, [facility] CPT-4: 14530 09/10/2015 ([id number]) 90633 EST. PATIENT, LEVEL IV Diagnosis: Essential (primary) hypertension[ICD10: I10] Diagnosis: Hypothyroidism, unspecified[ICD10: E03.9] Diagnosis: Unspecified osteoarthritis, unspecified site[ICD10: M19.90] Elen Cortez MD , [facility] CPT-4: 28212 05/14/2015 ([id number]) OFFICE VISIT, NEW - LEVEL 4 Diagnosis: Essential (primary) hypertension[ICD10: I10] Diagnosis: Hypothyroidism, unspecified[ICD10: E03.9] Diagnosis: Unspecified osteoarthritis, unspecified site[ICD10: M19.90] Elen Cortez MD , [facility] CPT-4: 54309 02/11/2015 Plan of Care Planned Activity Notes Codes Status Date Visit Plan: Hypertension - well controlled - continue with current medications, continue with no added salt diet. Pt has been encouraged to exercise daily. The pt has been advised to call the office if there are any acute concerns about change in blood pressure readings at home. Dysuria - with UTI - shot given today. Headache - toradol today. 04/04/2018 Patient Education: Patient Medication Summary Completed 04/04/2018 Patient Education: Patient Medication Summary Completed 04/04/2018 Patient Education: Patient Medication Summary Completed 04/04/2018 Care Plan: Referral Order SNOMED-CT : [id number] Pending 04/04/2018 Visit Plan: Dysuria, dizziness, fatigue, [...] improvement. 04/01/2018 Appointment[phone] [facility] (15 min) Moderate 04/01/2018 Patient Education: Patient Medication Summary Completed 04/01/2018 Visit Plan: Sinusitis - Pt has acute infection - pain in face, maxillary region, Pt informed to use decongestant, RX given to patient, sinus rinses also recommended. Call if symptoms do not show improvement. Dysuria - rx for antibiotic sent to pharmacy. 03/24/2018 [phone] [facility] ([facility] min) Moderate 03/24/2018 Patient Education: [...] improve. 03/01/2018 App[facility]ment[phone] [facility] ([facility] min) Moderate 03/01/2018 Patient Education: [...] spray. 12/24/2017 Appointment: Bridget Velazco WPtel: [phone] [facility] [facility] - Annual Wellness Visit 12/24/2017 Patient Education: Patient Medication Summary Completed 12/24/2017 Appointment: Bridget Velazco WPtel: [phone] [facility] (15 min) Moderate 11/30/2017 Appointment: Lab [...] not improve. 11/18/2017 Appointment: Bridget Velazco WPtel: [facility] [place] (15 min) Moderate 11/18/2017 Patient Education: Patient Medication Summary Completed 11/18/2017 Visit Plan: Sinusitis - Pt has acute infection - pain in face, maxillary region, Pt informed to use decongestant, RX given to patient, sinus rinses also recommended. Call if symptoms do not show improvement. 11/03/2017 Appointment: Bridget Velazco WPtel: [facility] [place] (15 min) Moderate 11/03/2017 Patient Education: [...] improve. 09/22/2017 Appointment: Bridget Velazco WPtel: [phone] [facility] (15 min) Moderate 09/22/2017 Patient Education: Patient Medication Summary Completed 09/22/2017 Visit Plan: Bronchitis - acute case of bronchitis identified. Pt has been given antibiotics, breathing treatments as appropriate, and pt has been instructed to call if symptoms are not improved, or if symptoms acutely worsen. 04/01/2017 Appointment: Elen Cortez WPtel: [facility] [place]5 [facility] (15 min) Moderate 04/01/2017 Patient Education: Patient [...] allergy spray. 03/25/2017 Appointment: Shiela Srivastava WPtel: [facility] [place]5 [phone] [place] (10 min) Simple 03/25/2017 Appointment: Elen Cortez WPtel: [facility] [place] (15 min) Moderate 03/25/2017 Patient Education: [...] care surrogate. 12/23/2016 Appointment: Bridget Velazco WPtel: [phone] [facility] [facility] - Annual Wellness Visit 12/23/2016 Patient Education: Patient Medication Summary Completed 12/23/2016 Visit Plan: Vertigo-discussed PT for vestibular exercises- patient wants to wait since symptoms are improving-continue anti histamine as directed-meclizine as needed 12/22/2016 Appointment: Shiela Srivastava WPtel: [facility] [phone] (30 min) Complex 12/22/2016 Patient Education: [...] control. 12/08/2016 Appointment: Shiela Srivastava WPtel: [phone] [phone] (30 min) Complex 12/08/2016 Patient Education: [...] medications. 11/30/2016 Appointment: [phone] [facility] (15 min) Moderate 11/30/2016 Patient Education: [...] or concerns. 09/28/2016 Appointment: [phone] [facility] (30 min) Complex 09/28/2016 Patient Education: [...] acute concerns. 07/06/2016 Appointment: Bridget Velazco WPtel: [facility] [place] (15 min) Moderate 07/06/2016 Patient [...] not improving 06/01/2016 Appointment: Elen Cortez WPtel: [facility] [place] (15 min) Moderate 06/01/2016 Patient Education: [...] Fatigue - will check labs 02/27/2016 Appointment: Juan A [phone] [facility] (30 min) Complex 02/27/2016 Patient Education: Patient Medication Summary Completed 02/27/2016 Patient Education: Patient Medication Summary Completed 09/27/2015 Care Plan: SCREENINGMAMMOGRAPHYDIGITAL LOINC : 19477-8 Pending 09/27/2015 Visit Plan: Hypertension - well [...] preferred provider for the colonoscopy 09/10/2015 App[facility]ment: [phone] [facility] (15 min) Moderate 09/10/2015 Patient Education: [...] Sanchez. 05/14/2015 Appointment: [facility] [phone] [facility] (15 min) Moderate 05/14/2015 Patient Education: Patient Medication Summary Completed 05/14/2015 Patient Education: Hypertension Completed 05/14/2015 Care Plan: Referral Order SNOMED-CT : [id number] Ordered 05/14/2015 Patient Education: Patient Medication Summary Completed 03/01/2015 Appointment: Nurse Visit 02/28/2015 Patient Education: Patient Medication Summary Completed 02/28/2015 Patient Education: Patient Medication Summary Completed 02/27/2015 Appointment: Nurse Visit 02/26/2015 Patient Education: Patient Medication Summary Completed 02/26/2015 Appointment: Injection 02/25/2015 Patient Education: Patient Medication Summary Completed 02/25/2015 Patient Education: Patient Medication Summary Completed 02/21/2015 Care Plan: URINALYSIS NONAUTO W/O SCOPE LOINC : 01482-9 Ordered 02/21/2015 Visit Plan: Hypertension - well [...] symptoms. 02/11/2015 Appointment: [phone] [facility] [facility] 02/11/2015 Patient Education: Patient [...]
--- OUTSIDE RECORDS SUMMARY | 2018-06-01 13:03 | XMS REPORT | CCD ---
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 Name Role Phone PP Unavailable CCM Unavailable Summary Purpose Interface Exchange Insurance Providers Payer name Policy type / Coverage type Covered democrat ID Effective Begin Date Effective End Date WPS Medicare Part B Medicare Part B [id number] Unknown [employer] Insurance Medicare Part B [id number] Unknown Family history Mother Diagnosis Age At [...] spouses - 02/11/[address]: 421251192 Never smoker 02/11/2015 Alcohol history Unknown occasionally drinks alcohol 02/11/2015 Allergies, Adverse Reactions, Alerts Substance Reaction Codes Entered Date Inactivated Date Status CODEINE RxNorm: 2670 02/11/2015 No Inactive Date Active allergy Unknown 12/23/2016 No Inactive Date Active ciprofloxacin rash, RxNorm: 50992 02/26/2015 No Inactive Date Active hydrocodone Unknown [...] Instructions ketorolac 30 mg/mL injection solution RxNorm: 261670 2 Milliliter(s) Inj 04/04/2018 04/04/2018 Inactive ceftriaxone 500 mg solution for injection RxNorm: 9087178 Inj 04/04/2018 04/04/2018 Inactive ondansetron 4 mg disintegrating tablet RxNorm: 842120 1 Tablet(s) PO TID as needed nausea 04/04/2018 No Stop Date Active nystatin 100,000 unit/mL oral suspension RxNorm: 247110 4 Milliliter(s) PO QID 04/01/2018 04/05/2018 Active doxycycline hyclate 100 mg tablet RxNorm: 2025907 1 Tablet(s) PO BID 04/01/2018 04/10/2018 Active prednisone 10 mg tablet RxNorm: 132972 1 Tablet(s) PO UD 6 pills on day 1 and 2 and then decrease by one pill every other day until prescription is done 03/24/2018 No Stop Date Active amoxicillin 500 mg capsule RxNorm: 303776 1 Capsule(s) PO TID 03/24/2018 04/02/2018 Inactive metoprolol succinate ER 50 mg tablet,extended release 24 hr RxNorm: 871772 Tablet (s) TAKE 1 TABLET BY MOUTH DAILY 03/21/2018 10/16/2018 Active PLEASE SEND REFILL REQUESTS ELECTRONICALLY!! Synthroid 88 mcg tablet RxNorm: 289679 TAKE 1 TABLET BY MOUTH DAILY 03/08/2018 08/04/2018 Active 03/07/2018 11:21:21 AM pravastatin 80 mg tablet RxNorm: 681445 Tablet(s) 1 Tablet(s) PO daily 03/01/2018 02/23/2019 Active Kenalog 40 mg/mL suspension for injection RxNorm: 3963646 Milliliter(s) Inj 12/24/2017 12/24/2017 Inactive cetirizine 10 mg tablet RxNorm: 8602421 TAKE 1 TABLET BY MOUTH DAILY 12/21/2017 07/18/2018 Active Generic For:*ZYRTEC 10 MG TABLET 12/21/2017 10:08:05 AM Synthroid 88 mcg tablet RxNorm: 279995 TAKE 1 TABLET BY MOUTH DAILY 12/07/2017 03/06/2018 Inactive 12/06/2017 11:46:49 AM Lipitor 80 mg tablet RxNorm: 137891 1 Tablet(s) PO daily 201702/28/2018 Inactive pravastatin 80 mg tablet RxNorm: 132195 1 Tablet(s) PO daily 11/29/2017 Inactive Lipitor 80 mg tablet RxNorm: 878629 1 Tablet(s) PO daily 201711/28/2017 Inactive lisinopril 20 mg tablet RxNorm: 769072 TAKE 1 TABLET BY MOUTH TWICE DAILY 11/23/2017 04/21/2018 Active Generic For:*PRINIVIL 20 MG TABLET 11/23/2017 11:29:44 AM Macrobid 100 mg capsule RxNorm: 047584 1 Capsule(s) PO BID 06/201711/25/2017 Inactive Macrobid 100 mg capsule RxNorm: 372821 1 Capsule(s) PO BID 06/201711/18/2017 Inactive Lomotil 2.5 mg-0.025 mg tablet RxNorm: 6402295 1 -2 Tablet(s) PO TID as needed 11/19/2017 11/25/2017 Inactive Lomotil 2.5 mg-0.025 mg tablet RxNorm: 6239078 1 -2 Tablet(s) PO TID as needed 11/19/2017 11/18/2017 Inactive Pyridium 200 mg tablet RxNorm: 7236181 1 Tablet(s) PO TID as needed 11/18/2017 11/22/2017 Inactive Augmentin 500 mg-125 mg tablet RxNorm: 737379 1 Tablet(s) PO TID 11/18/2017 11/27/2017 Inactive Keflex 500 mg capsule RxNorm: 924695 1 Capsule(s) PO TID 201711/09/2017 Inactive Denavir 1 % topical cream RxNorm: 722879 1 TOP TID as needed cold sores 11/01/2017 01/29/2018 Inactive Denavir 1 % topical cream RxNorm: 700664 1 TOP TID as needed cold sores 11/01/2017 10/31/2017 Inactive Synthroid 88 mcg tablet RxNorm: 282169 TAKE 1 TABLET BY MOUTH DAILY 09/29/2017 11/27/2017 Inactive 09/29/2017 12:58:07 PM pravastatin 80 mg tablet RxNorm: 420219 1 Tablet(s) PO daily 08/30/2017 Inactive pravastatin 80 mg tablet RxNorm: 617931 1 Tablet(s) PO daily 11/28/2017 Inactive Synthroid 88 mcg tablet RxNorm: 866921 TAKE 1 TABLET BY MOUTH DAILY 08/30/2017 09/28/2017 Inactive 08/30/2017 10:53:26 AM metoprolol succinate ER 50 mg tablet,extended release 24 hr RxNorm: 091391 Tablet (s) TAKE 1 TABLET BY MOUTH DAILY 08/17/2017 03/14/2018 Inactive PLEASE SEND REFILL REQUESTS ELECTRONICALLY!! lisinopril 20 mg tablet RxNorm: 236846 TAKE 1 TABLET BY MOUTH TWICE DAILY 06/18/2017 11/14/2017 Inactive Generic For:*PRINIVIL 20 MG TABLET 06/18/2017 1:31: 00 PM Synthroid 88 mcg tablet RxNorm: 208449 TAKE 1 TABLET BY MOUTH DAILY 05/24/2017 08/21/2017 Inactive 05/24/2017 2:13:21 PM cetirizine 10 mg tablet RxNorm: 7685259 1 Tablet(s) PO daily 12/12/2017 Inactive Zithromax Z-Russell 250 mg capsule RxNorm: 687250 1 Capsule(s) PO 04/02/2017 04/05/2017 Inactive Zithromax Z-Russell 250 mg tablet RxNorm: 778370 1 Tablet(s) PO 04/01/2017 Inactive Zithromax Z-Russell 250 mg capsule RxNorm: 976122 1 Capsule(s) PO 04/02/2017 04/01/2017 Inactive Zithromax Z-Russell 250 mg tablet RxNorm: 125086 1 Tablet(s) PO 04/06/2017 Inactive Ventolin HFA 90 mcg/actuation aerosol inhaler RxNorm: 129160 2 INH QID as needed - for the first 3 days inhale at least two puffs three times daily, then use as needed for shortness of breath 04/01/2017 04/30/2017 Inactive Keflex 500 mg capsule RxNorm: 576258 1 Capsule(s) PO TID 201604/01/2017 Inactive meclizine 25 mg tablet RxNorm: 087323 1 Tablet(s) PO Q6 PRN 1 Tablet(s) PO Q6 PRN 03/25/2017 No Stop Date Active dizziness meclizine 25 mg tablet RxNorm: 627478 Tablet(s) 1 Tablet(s) PO Q6 PRN 03/25/2017 03/24/2017 Inactive dizziness Kenalog 40 mg/mL suspension for injection RxNorm: 4238603 1 Milliliter(s) Inj 03/25/2017 03/25/2017 Inactive meclizine 25 mg tablet RxNorm: 030158 1 Tablet(s) PO Q6 PRN 03/24/2017 Inactive dizziness lisinopril 20 mg tablet RxNorm: 841735 1 Tablet(s) PO BID 01/1506/13/2017 Inactive metoprolol succinate ER 50 mg tablet,extended release 24 hr RxNorm: 487935 TAKE 1 TABLET BY MOUTH DAILY 01/07/20172017 Inactive Generic For:TOPROL XL 50MG TAB 01/07/2017 12:38:23 PM Synthroid 88 mcg tablet RxNorm: 811212 TAKE 1 TABLET BY MOUTH DAILY 12/25/2016 05/23/2017 Inactive 12/25/2016 9:47:08 AM Zithromax Z-Russell 250 mg tablet RxNorm: 970290 Tablet(s) PO UD 03/24/2017 Inactive meclizine 25 mg tablet RxNorm: 117958 1 Tablet(s) PO Q6 PRN 12/20/2016 Inactive dizziness Kenalog 40 mg/mL suspension for injection RxNorm: 7734076 Milliliter(s) Inj 12/08/2016 12/08/2016 Inactive meloxicam 15 mg tablet RxNorm: 903484 1 Tablet(s) PO daily 12/20/2016 Inactive cetirizine 10 mg tablet RxNorm: 6582793 1 Tablet(s) PO daily 05/16/2017 Inactive pravastatin 40 mg tablet RxNorm: 033204 1 Tablet(s) PO BID 07/201608/30/2017 Inactive Cancel 80 mg tab lisinopril 20 mg tablet RxNorm: 695726 1 Tablet(s) PO BID 08/1212/22/2016 Inactive Synthroid 88 mcg tablet RxNorm: 372067 1 Tablet(s) PO TAKE ONE (1) TABLET BY MOUTH DAILY 07/28/2016 12/24/2016 Inactive decrease dose hydralazine 25 mg tablet RxNorm: 359152 1 Tablet(s) PO TID as needed for Systolic blood pressure over 170 07/06/20162016 Inactive lisinopril 20 mg tablet RxNorm: 717332 1 Tablet(s) PO BID to replace your other lisinopril dose 07/06/2016 08/04/2016 Inactive lisinopril 10 mg tablet RxNorm: 773585 TAKE ONE TABLET BY MOUTH TWICE DAILY 06/10/2016 08/11/2016 Inactive Generic For:ZESTRIL 10 MG TABLET 06/09/2016 12:58: 50 PM triamcinolone acetonide 0.1 % topical cream RxNorm: 1286466 1 Application TOP TID as needed 06/01/2016 No Stop Date Active nystatin 100,000 unit/gram topical cream RxNorm: 731943 1 Gram(s) TOP TID as needed 06/01/2016 No Stop Date Active metoprolol succinate ER 50 mg tablet,extended release 24 hr RxNorm: 732389 1 Tablet(s) PO daily 05/26/2016 12/21/2016 Inactive cetirizine 10 mg tablet RxNorm: 0057508 1 Tablet(s) PO daily 10/18/2016 Inactive Synthroid 88 mcg tablet RxNorm: 373511 1 Tablet(s) PO TAKE ONE (1) TABLET BY MOUTH DAILY 03/06/2016 03/07/2018 Inactive Brand name only! Synthroid 88 mcg tablet RxNorm: 102610 1 Tablet(s) PO TAKE ONE (1) TABLET BY MOUTH DAILY 03/04/2016 03/05/2016 Inactive decrease dose cetirizine 10 mg tablet RxNorm: 4119371 1 Tablet(s) PO daily 03/22/2016 Inactive amoxicillin 500 mg capsule RxNorm: 103228 1 Capsule(s) PO TID 02/27/2016 03/04/2016 Inactive lisinopril 10 mg tablet RxNorm: 169279 TAKE ONE TABLET BY MOUTH TWICE DAILY 02/06/2016 06/04/2016 Inactive Generic For:ZESTRIL 10 MG TABLET 02/06/2016 12:16: 38 PM Synthroid 100 mcg tablet RxNorm: 328484 TAKE ONE (1) TABLET BY MOUTH DAILY 01/03/2016 03/03/2016 Inactive 01/03/2016 10:35:14 AM N O T I C E Last quantity doesn't match original quantity lisinopril 10 mg tablet RxNorm: 173855 1 Tablet(s) PO BID 10/0301/31/2016 Inactive Synthroid 100 mcg tablet RxNorm: 939133 1 Tablet(s) PO daily 01/02/2016 Inactive metoprolol succinate ER 50 mg tablet,extended release 24 hr RxNorm: 534424 1 Tablet(s) PO daily 10/04/2015 04/30/2016 Inactive Tylenol Arthritis 650 mg tablet,extended release RxNorm: 4141790 2 Tablet(s) PO TID 09/10/2015 No Stop Date Active metoprolol succinate ER 50 mg tablet,extended release 24 hr RxNorm: 206188 1 Tablet(s) PO daily 09/05/2015 10/03/2015 Inactive pravastatin 80 mg tablet RxNorm: 964304 1 Tablet(s) PO QHS 08/30/2015 Inactive pravastatin 40 mg tablet RxNorm: 050415 1 Tablet(s) PO BID 08/29/2015 Inactive Cancel 80 mg tab pravastatin 40 mg tablet RxNorm: 505206 1 Tablet(s) PO BID 08/19/2016 Inactive Cancel 80 mg tab lisinopril 10 mg tablet RxNorm: 511989 1 Tablet(s) PO BID 06/1308/11/2016 Inactive lisinopril 10 mg tablet RxNorm: 549643 1 Tablet(s) PO BID 06/1310/03/2015 Inactive Synthroid 100 mcg tablet RxNorm: 749420 1 Tablet(s) PO daily 10/03/2015 Inactive ceftriaxone 1 gram solution for injection RxNorm: 9897872 Inj 03/01/2015 03/01/2015 Inactive ceftriaxone 1 gram solution for injection RxNorm: 7110895 Inj 02/28/2015 02/28/2015 Inactive ceftriaxone 1 gram solution for injection RxNorm: 0917512 Inj 02/27/2015 02/27/2015 Inactive ceftriaxone 1 gram solution for injection RxNorm: 9558110 Inj 02/26/2015 02/26/2015 Inactive ceftriaxone 1 gram solution for injection RxNorm: 2341253 Inj 02/25/2015 02/25/2015 Inactive phenazopyridine 200 mg tablet RxNorm: 0945999 1 Tablet(s) PO Q8 02/21/2015 02/20/2015 Inactive Cipro 500 mg tablet RxNorm: 505026 1 Tablet(s) PO BID 201402/20/2015 Inactive phenazopyridine 200 mg tablet RxNorm: 4332964 1 Tablet(s) PO Q8 02/21/2015 02/25/2015 Inactive Cipro 500 mg tablet RxNorm: 956998 1 Tablet(s) PO BID 201402/27/2015 Inactive lisinopril 10 mg tablet RxNorm: 298828 1 Tablet(s) PO BID 02/1406/12/2015 Inactive metoprolol succinate ER 50 mg tablet,extended release 24 hr RxNorm: 152322 3/4 Tablet(s) PO daily 02/11/2015 09/04/2015 Inactive Voltaren 1 % topical gel RxNorm: 961437 2 Gram(s) TOP QID use this on affected joints up to four times daily. 02/11/2015 03/12/2015 Inactive Probiotic oral RxNorm : 6205 oral No Start Date Active aspirin 81 mg tablet RxNorm: 656878 1 Tablet(s) PO daily No Start Date Active Super B-Complex tablet RxNorm: 1 Tablet(s) PO No Start Date Active Flonase Allergy Relief 50 mcg/actuation nasal spray, suspension RxNorm: 7065425 1 [place] NASAL BID No Start Date Active Super-D3+ oral RxNorm : oral No Start Date Active Prilosec OTC 20 mg tablet,delayed release RxNorm: 130629 2 Tablet(s) PO QAM No Start Date Active Flonase Allergy Relief 50 mcg/actuation nasal spray, suspension RxNorm: 2409384 1 [place] NASAL as needed No Start Date Active Move Free Ultra 40 mg-10 mg-3.3 mg tablet RxNorm: 1 Tablet(s) PO daily No Start Date Active metoprolol tartrate 50 mg tablet RxNorm: 448568 1 Tablet(s) PO daily No Start Date 02/10/2015 Inactive lisinopril 10 mg tablet RxNorm: 860217 1 Tablet(s) PO BID No Start Date 02/13/2015 Inactive pravastatin 80 mg tablet RxNorm: 494376 1 Tablet(s) PO daily No Start Date 08/29/2015 Inactive Synthroid 100 mcg tablet RxNorm: 895239 1 Tablet(s) PO daily No Start Date 06/09/2015 Inactive lisinopril 40 mg tablet RxNorm: 702160 1 Tablet(s) PO BID No Start Date 02/28/2018 Inactive Tylenol Arthritis 650 mg tablet,extended release RxNorm: 6406798 4 Tablet(s) PO daily No Start Date 09/09/2015 Inactive Medication Administered Medication Codes Instructions Start Date Status ceftriaxone 500 mg solution for injection RxNorm: 4332943 04/04/2018 Active ketorolac 30 mg/mL injection solution RxNorm: 179693 2Milliliter 04/04/2018 Active Kenalog 40 mg/mL suspension for injection RxNorm: 8807057 Milliliter 12/24/2017 No longer Active Kenalog 40 mg/mL suspension for injection RxNorm: 7235772 1Milliliter 03/25/2017 No longer Active Kenalog 40 mg/mL suspension for injection RxNorm: 9235089 Milliliter 12/08/2016 No longer Active ceftriaxone 1 gram solution for injection RxNorm: 2135061 03/01/2015 No longer Active ceftriaxone 1 gram solution for injection RxNorm: 7509076 02/28/2015 No longer Active ceftriaxone 1 gram solution for injection RxNorm: 6602281 02/27/2015 No longer Active ceftriaxone 1 gram solution for injection RxNorm: 3620800 02/26/2015 No longer Active ceftriaxone 1 gram solution for injection RxNorm: 3879361 02/25/2015 No longer Active Immunizations Vaccine Codes [...] Item Item Code Result Date Free T4 Pbo462 FREE T4 1.07 ng/dL 04/04/2018 Tsh Ord6 TSH (3rd IS) 1.93 uIU/mL 04/04/2018 Urine Culture Ucult Preliminary NO Growth Day 1 03/28/2018 Urine Culture Ucult Complete NO Growth Day 2 03/28/2018 Urine Culture Ucult Complete >100,000 col/ml aerobic growth sent to ref lab 11/19/2017 B12 Xds049 B12 712.00 pg/ml 09/28/2017 C-Reactive Protein Qnt Crqnt CRP 0.1 mg/dl 09/23/2017 Comp Metabolic Ceh225 NA 139 mEq/L 09/23/2017 Comp Metabolic Zae557 K 4.8 mEq/L 09/23/2017 Comp Metabolic Zim197 CL 104 mEq/L 09/23/2017 Comp Metabolic Fpo405 CO2 28.0 mEq/L 09/23/2017 Comp Metabolic Oyw681 ANION GAP 12 09/23/2017 Comp Metabolic Got626 GLUCOSE 92 mg/dL 09/23/2017 Comp Metabolic Wpe167 Creat 0.7 mg/dL 09/23/2017 Comp Metabolic Bjc651 eGFR 91 ml/min/1.73m2 09/23/2017 Comp Metabolic Qko911 BUN 11 mg/dL 09/23/2017 Comp Metabolic Qzk031 B/C Ratio 16.4 Ratio 09/23/2017 Comp Metabolic Cab761 CALCIUM 9.0 mg/dL 09/23/2017 Comp Metabolic Log269 ALK PHOS 76 U/L 09/23/2017 Comp Metabolic Rkt148 AST(SGOT) 24 U/L 09/23/2017 Comp Metabolic Gyh659 ALT(SGPT) 21 U/L 09/23/2017 Comp Metabolic Fcl776 BILI T 0.3 mg/dL 09/23/2017 Comp Metabolic Qva609 ALBUMIN 4.1 g/dL 09/23/2017 Comp Metabolic Fzg058 TPRO 6.2 g/dL 09/23/2017 Comp Metabolic Pcz918 GLOB 2.1 g/dL 09/23/2017 Comp Metabolic Cux759 A/G Ratio 1.9 Ratio 09/23/2017 Comp Metabolic Prr587 Osmo 277 mOsmo 09/23/2017 Sed Rate Ord21 ESR 3 mm/hr 09/22/2017 Vitamin D 25 Oh [id number] VITAMIN D, 25 HYDROXY 78.79 ng/mL Tsh [...] 97.1 fl 09/22/2017 Cbc With Differential Ord2 [place]% 10.5 % 09/22/2017 Cbc With Differential Ord2 [...] 2.37 K/ul 09/22/2017 Cbc With Differential Ord2 [place] ABS# 0.9 K/ul 09/22/2017 Cbc With Differential Ord2 Eos ABS# 0.2 K/ul 09/22/2017 Cbc With Differential Ord2 Baso ABS# 0.0 K/ul 09/22/2017 Free T4 Pou540 FREE T4 0.99 ng/dL 09/22/2017 %Hba1C Zeg553 % HbA1c 91483-6 6.0 % 12/10/2016 %Hba1C Pyn686 Gluc Ave 126 mg/dL 12/10/2016 Tsh Ord6 hTSH II 0.89 uIU/mL 12/09/2016 Free T4 Xbv405 FREE T4 0.99 ng/dL 12/09/2016 Comp Metabolic Uau154 NA 138 mEq/L 12/09/2016 Comp Metabolic Pqj865 K 5.2 mEq/L 12/09/2016 Comp Metabolic Yxs883 CL 104 mEq/L 12/09/2016 Comp Metabolic Atx421 CO2 29.0 mEq/L 12/09/2016 Comp Metabolic Tqz509 ANION GAP 10 12/09/2016 Comp Metabolic Jgp380 GLUCOSE 135 mg/dL 12/09/2016 Comp Metabolic Nat052 Creat 0.8 mg/dL 12/09/2016 Comp Metabolic Ysm767 eGFR 79 ml/min/1.73m2 12/09/2016 Comp Metabolic Jjq119 BUN 18 mg/dL 12/09/2016 Comp Metabolic Eqy893 B/C Ratio 23.7 Ratio 12/09/2016 Comp Metabolic Zmf529 CALCIUM 9.5 mg/dL 12/09/2016 Comp Metabolic Syf774 ALK PHOS 73 U/L 12/09/2016 Comp Metabolic Rop236 AST(SGOT) 24 U/L 12/09/2016 Comp Metabolic Ikd233 ALT(SGPT) 20 U/L 12/09/2016 Comp Metabolic Tyw712 BILI T 0.3 mg/dL 12/09/2016 Comp Metabolic Hmr717 ALBUMIN 4.3 g/dL 12/09/2016 Comp Metabolic Tbv895 TPRO 6.4 g/dL 12/09/2016 Comp Metabolic Gqz544 GLOB 2.1 g/dL 12/09/2016 Comp Metabolic Pux961 A/G Ratio 2.0 Ratio 12/09/2016 Comp Metabolic Qrg262 Osmo 280 mOsmo 12/09/2016 Cbc With Differential [...] 31.3 pg 12/09/2016 Cbc With Differential Ord2 [place]% 6.5 % 12/09/2016 Cbc With Differential Ord2 [...] 1.84 K/ul 12/09/2016 Cbc With Differential Ord2 [place] ABS# 0.6 K/ul 12/09/2016 Cbc With Differential Ord2 Eos ABS# 0.1 K/ul 12/09/2016 Cbc With Differential Ord2 Baso ABS# 0.1 K/ul 12/09/2016 Tsh Ord6 hTSH II 1.19 uIU/mL 09/02/2016 Free T4 Oom184 FREE T4 0.97 ng/dL 09/02/2016 Comp Metabolic Xhq263 NA 137 mEq/L 06/01/2016 Comp Metabolic Liz161 K 4.1 mEq/L 06/01/2016 Comp Metabolic Sss392 CL 104 mEq/L 06/01/2016 Comp Metabolic Ebi381 CO2 25.0 mEq/L 06/01/2016 Comp Metabolic Ngu282 ANION GAP 12 06/01/2016 Comp Metabolic Hlg553 GLUCOSE 108 mg/dL 06/01/2016 Comp Metabolic Gyn905 Creat 0.8 mg/dL 06/01/2016 Comp Metabolic Pgs488 eGFR 80 ml/min/1.73m2 06/01/2016 Comp Metabolic Zco606 BUN 15 mg/dL 06/01/2016 Comp Metabolic Bmn065 B/C Ratio 20.0 Ratio 06/01/2016 Comp Metabolic Pwt118 CALCIUM 9.1 mg/dL 06/01/2016 Comp Metabolic Jkj946 ALK PHOS 89 U/L 06/01/2016 Comp Metabolic Thq917 AST(SGOT) 25 U/L 06/01/2016 Comp Metabolic Zut223 ALT(SGPT) 20 U/L 06/01/2016 Comp Metabolic Spn190 BILI T 0.3 mg/dL 06/01/2016 Comp Metabolic Dvz894 ALBUMIN 4.2 g/dL 06/01/2016 Comp Metabolic Rcq086 TPRO 6.2 g/dL 06/01/2016 Comp Metabolic Iyl980 GLOB 2.0 g/dL 06/01/2016 Comp Metabolic Ros724 A/G Ratio 2.1 Ratio 06/01/2016 Comp Metabolic Vji617 Osmo 275 mOsmo 06/01/2016 Free T4 Iuc124 FREE T4 0.94 ng/dL 06/01/2016 Tsh Ord6 [...] 31.1 pg 06/01/2016 Cbc With Differential Ord2 [place]% 8.4 % 06/01/2016 Cbc With Differential Ord2 [...] 2.96 K/ul 06/01/2016 Cbc With Differential Ord2 [place] ABS# 0.6 K/ul 06/01/2016 Cbc With Differential [...] 31.3 pg 02/27/2016 Cbc With Differential Ord2 [place]% 10.0 % 02/27/2016 Cbc With Differential Ord2 [...] 2.28 K/ul 02/27/2016 Cbc With Differential Ord2 [place] ABS# 0.9 K/ul 02/27/2016 Cbc With Differential Ord2 Eos ABS# 0.3 K/ul 02/27/2016 Cbc With Differential Ord2 Baso ABS# 0.1 K/ul 02/27/2016 Tsh Ord6 hTSH II 0.18 uIU/mL 02/27/2016 Free T4 Gjl648 FREE T4 1.17 ng/dL 02/27/2016 Comp Metabolic Ouj031 NA 135 mEq/L 02/27/2016 Comp Metabolic Puj003 K 5.2 mEq/L 02/27/2016 Comp Metabolic Npq662 CL 102 mEq/L 02/27/2016 Comp Metabolic Gca393 CO2 27.0 mEq/L 02/27/2016 Comp Metabolic Ttl933 ANION GAP 11 02/27/2016 Comp Metabolic Nzn110 GLUCOSE 93 mg/dL 02/27/2016 Comp Metabolic Dtq843 Creat 0.7 mg/dL 02/27/2016 Comp Metabolic Xky021 eGFR 91 ml/min/1.73m2 02/27/2016 Comp Metabolic Kxh386 BUN 14 mg/dL 02/27/2016 Comp Metabolic Cwv686 B/C Ratio 20.9 Ratio 02/27/2016 Comp Metabolic Yde240 CALCIUM 9.4 mg/dL 02/27/2016 Comp Metabolic Tzt845 ALK PHOS 100 U/L 02/27/2016 Comp Metabolic Czg761 AST(SGOT) 23 U/L 02/27/2016 Comp Metabolic Cbt797 ALT(SGPT) 24 U/L 02/27/2016 Comp Metabolic Gco969 BILI T 0.2 mg/dL 02/27/2016 Comp Metabolic Wme700 ALBUMIN 4.3 g/dL 02/27/2016 Comp Metabolic Hem802 TPRO 6.3 g/dL 02/27/2016 Comp Metabolic Zji439 GLOB 2.1 g/dL 02/27/2016 Comp Metabolic Ycc682 A/G Ratio 2.1 Ratio 02/27/2016 Comp Metabolic Rwf704 Osmo 270 mOsmo 02/27/2016 Free T4 Ugb876 FREE T4 1.03 ng/dL 05/10/2015 Comp Metabolic Pfz709 NA 137 mEq/L 05/10/2015 Comp Metabolic Dxv522 K 4.4 mEq/L 05/10/2015 Comp Metabolic Nzj351 CL 102 mEq/L 05/10/2015 Comp Metabolic Lml887 CO2 28.0 mEq/L 05/10/2015 Comp Metabolic Gen572 ANION GAP 11 05/10/2015 Comp Metabolic Hlc839 GLUCOSE 108 mg/dL 05/10/2015 Comp Metabolic Ifv271 Creat 0.7 mg/dL 05/10/2015 Comp Metabolic Hqr921 eGFR 86 ml/min/1.73m2 05/10/2015 Comp Metabolic Cnq765 BUN 13 mg/dL 05/10/2015 Comp Metabolic Oct655 B/C Ratio 18.3 Ratio 05/10/2015 Comp Metabolic Ipb887 CALCIUM 9.4 mg/dL 05/10/2015 Comp Metabolic Eqa426 ALK PHOS 94 U/L 05/10/2015 Comp Metabolic Vgy499 AST(SGOT) 22 U/L 05/10/2015 Comp Metabolic Bie083 ALT(SGPT) 21 U/L 05/10/2015 Comp Metabolic Ubj490 BILI T 0.3 mg/dL 05/10/2015 Comp Metabolic Kke253 ALBUMIN 3.9 g/dL 05/10/2015 Comp Metabolic Rre664 TPRO 6.1 g/dL 05/10/2015 Comp Metabolic Ygk163 GLOB 2.2 g/dL 05/10/2015 Comp Metabolic Wgw624 A/G Ratio 1.7 Ratio 05/10/2015 Comp Metabolic Gfq654 Osmo 274 mOsmo 05/10/2015 Tsh Ord6 hTSH [...] 29.4 pg 05/10/2015 Cbc With Differential Ord2 [place]% 9.0 % 05/10/2015 Cbc With Differential Ord2 [...] 2.14 K/ul 05/10/2015 Cbc With Differential Ord2 [place] ABS# 0.5 K/ul 05/10/2015 Cbc With Differential [...] Ord30 C/HDL 3.8 Ratio 05/10/2015 Culture Urine [id number] URINE CULTURE SEE NOTES 02/25/2015 Culture Urine [id number] Continued Results 02/25/2015 Urine Culture Ucult Complete >100,000 col/ml aerobic growth sent to ref lab 02/22/2015 Free T4 Dzr636 FREE T4 1.16 ng/dL 02/11/2015 Tsh Ord6 [...] Procedure Codes Date THER/PROPH/DIAG INJ SC/IM CPT-4: 96829 04/04/2018 ROCEPHIN, PER 250 MG CPT-4: J0696 04/04/2018 KETOROLAC TROMETHAMINE INJ CPT-4: J1885 04/04/2018 URINALYSIS NONAUTO W/O SCOPE CPT-4: 28599 03/24/2018 PPPS, SUBSEQ VISIT CPT -4: G0439 12/24/2017 THER/PROPH/DIAG INJ SC/IM CPT-4: 21023 12/24/2017 TRIAMCINOLONE ACET INJ NOS CPT-4: J3301 12/24/2017 THER/PROPH/DIAG INJ SC/IM CPT-4: 35541 11/18/2017 ROCEPHIN, PER 250 MG CPT-4: J0696 11/18/2017 PRESCRIP TRANSMIT VIA ERX SY CPT-4: G8553 04/01/2017 TRIAMCINOLONE ACET INJ NOS CPT-4: J3301 03/25/2017 PPPS, SUBSEQ VISIT CPT -4: G0439 12/23/2016 THER/PROPH/DIAG INJ SC/IM CPT-4: 80016 12/08/2016 TRIAMCINOLONE ACET INJ NOS CPT-4: J3301 12/08/2016 PRESCRIP TRANSMIT VIA ERX SY CPT-4: G8553 12/08/2016 PRESCRIP TRANSMIT VIA ERX SY CPT-4: G8553 11/30/2016 URINALYSIS NONAUTO W/O SCOPE CPT-4: 11830 07/08/2016 PRESCRIP TRANSMIT VIA ERX SY CPT-4: G8553 06/01/2016 PRESCRIP TRANSMIT VIA ERX SY CPT-4: G8553 02/27/2016 THER/PROPH/DIAG INJ SC/IM CPT-4: 87616 03/01/2015 ROCEPHIN, PER 250 MG CPT-4: J0696 03/01/2015 THER/PROPH/DIAG INJ SC/IM CPT-4: 01891 02/28/2015 ROCEPHIN, PER 250 MG CPT-4: J0696 02/28/2015 THER/PROPH/DIAG INJ SC/IM CPT-4: 94274 02/27/2015 ROCEPHIN, PER 250 MG CPT-4: J0696 02/27/2015 THER/PROPH/DIAG INJ SC/IM CPT-4: 83961 02/26/2015 ROCEPHIN, PER 250 MG CPT-4: J0696 02/26/2015 THER/PROPH/DIAG INJ SC/IM CPT-4: 02194 02/25/2015 ROCEPHIN, PER 250 MG CPT-4: J0696 02/25/2015 URINALYSIS NONAUTO W/O SCOPE CPT-4: 33070 02/21/2015 Vital Signs Date Vital 04/04/2018 Blood Pressure 1: 130/60 Code : 8480-6 Heart Rate 1: 78 bpm Height: Weight: 04/01/2018 Blood Pressure 1: 134/58 Code : 8480-6 BMI: 27.8 Code : 00324-4 Heart Rate 1 : 85 bpm Height: 5'3" SpO2: 96% Weight: 157 lbs 03/24/2018 Blood Pressure 1: 128/82 Code : 8480-6 BMI: 27.8 Code : 76021-0 Heart Rate 1 : 84 bpm Height: 5'3" SpO2: 97% Weight: 157 lbs 03/01/2018 Blood Pressure 1: 136/70 Code : 8480-6 BMI: 27.8 Code : 47320-2 Heart Rate 1 : 70 bpm Height: 5'3" SpO2: 96% Weight: 157 lbs 12/24/2017 Height: Weight: 11/18/2017 Blood Pressure 1: 164/74 Code : 8480-6 BMI: 27.6 Code : 61669-5 Heart Rate 1 : 70 bpm Height: 5'3" SpO2: 96% Weight: 156 lbs 11/03/2017 Blood Pressure 1: 118/72 Code : 8480-6 BMI: 27.6 Code : 60042-4 Heart Rate 1 : 82 bpm Height: 5'3" SpO2: 96% Weight: 156 lbs 09/22/2017 Blood Pressure 1: 136/68 Code : 8480-6 BMI: 27.6 Code : 40288-2 Heart Rate 1 : 70 bpm Height: 5'3" SpO2: 97% Weight: 156 lbs 04/01/2017 Blood Pressure 1: 144/82 Code : 8480-6 Heart Rate 1: 68 bpm Height: 5'3" SpO2: 97% Weight: 03/25/2017 Blood Pressure 1: 116/70 Code : 8480-6 BMI: 26.7 Code : 11060-9 Heart Rate 1 : 67 bpm Height: 5'3" SpO2: 98% Weight: 151 lbs 12/23/2016 BMI: 26.7 Code: 11069-2 Height: 5'3" Weight: 151 lbs 12/22/2016 Blood Pressure 1: 142/60 Code : 8480-6 BMI: 26.7 Code : 61047-4 Heart Rate 1 : 67 bpm Height: 5'3" SpO2: 98% Weight: 151 lbs 12/08/2016 Blood Pressure 1: 140/72 Code : 8480-6 Heart Rate 1: 72 bpm Height: 5'3" SpO2: 97% Weight: 11/30/2016 Blood Pressure 1: 128/80 Code : 8480-6 BMI: 26.7 Code : 39852-1 Heart Rate 1 : 63 bpm Height: 5'3" SpO2: 96% Weight: 151 lbs 09/28/2016 Blood Pressure 1: 130/80 Code : 8480-6 BMI: 27.1 Code : 46704-9 Heart Rate 1 : 80 bpm Height: 5'3" SpO2: 97% Weight: 153 lbs 07/06/2016 Blood Pressure 1: 162/72 Code : 8480-6 BMI: 27.6 Code : 15543-7 Heart Rate 1 : 72 bpm Height: 5'3" SpO2: 98% Weight: 156 lbs 06/01/2016 Blood Pressure 1: 122/66 Code : 8480-6 BMI: 27.5 Code : 31227-1 Heart Rate 1 : 73 bpm Height: 5'3" SpO2: 98% Weight: 155 lbs 8 oz 02/27/2016 Blood Pressure 1: 126/68 Code : 8480-6 BMI: 26.9 Code : 57578-8 Heart Rate 1 : 70 bpm Height: 5'3" SpO2: 98% Weight: 152 lbs 09/10/2015 Blood Pressure 1: 130/70 Code : 8480-6 BMI: 26.9 Code : 79713-7 Heart Rate 1 : 72 bpm Height: 5'3" SpO2: 97% Weight: 152 lbs 05/14/2015 Blood Pressure 1: 138/82 Code : 8480-6 BMI: 26.4 Code : 81141-4 Heart Rate 1 : 75 bpm Height: 5'3" SpO2: 98% Weight: 149 lbs 02/11/2015 Blood Pressure 1: 128/72 Code : 8480-6 BMI: 25.5 Code : 83126-1 Heart Rate 1 : 73 bpm Height: [...] data Encounters Encounter Performer Location Codes Date 72704 EST. PATIENT, LEVEL III Diagnosis: Essential (primary) hypertension[ICD10: I10] Diagnosis: Dysuria[ICD10: R30.0] Diagnosis: Nausea[ICD10: R11.0] Diagnosis: Headache[ICD10: R51] Elen Cortez MD, [facility] CPT-4: 29731 04/04/2018 55717 EST. PATIENT, LEVEL III Diagnosis: Other acute sinusitis[ICD10: J01.80] Diagnosis: Dizziness and giddiness[ICD10: R42] Diagnosis: Dysuria[ICD10: R30.0] Diagnosis: Candidal stomatitis[ICD10: B37.0] Diagnosis: Essential (primary) hypertension[ICD10: I10] Diagnosis: Other fatigue[ICD10: R53.83] Diagnosis: Other malaise[ICD10: R53.81] Bridget Cortez MD, [facility] CPT-4 : 61890 04/01/2018 ([id number]) 43963 EST. 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 PATIENT, LEVEL IV Diagnosis: Otalgia, right ear[ICD10: H92.01] Diagnosis: Headache[ICD10: R51] Diagnosis: Other fatigue[ICD10: R53.83] Diagnosis: Abnormal findings on diagnostic imaging of other specified body structures[ICD10: R93.89] Elen Cortez MD, [facility] CPT-4: 97516 03/01/2018 19523 EST. PATIENT, LEVEL III Diagnosis: Acute cystitis with hematuria[ICD10: N30.01] Bridget Cortez MD, [facility] CPT-4: 15567 11/18/2017 82650 EST. PATIENT, LEVEL IV Diagnosis: Other acute sinusitis[ICD10: J01.80] Diagnosis: Otalgia, right ear[ICD10: H92.01] Bridget Cortez MD, [facility] CPT -4: 56357 11/03/2017 78959 EST. PATIENT, LEVEL III Diagnosis: Other fatigue[ICD10: R53.83] Diagnosis: Other malaise[ICD10: R53.81] Diagnosis: Pain in left knee[ICD10: M25.562] Diagnosis: Pain in right knee[ICD10: M25.561] Bridget Cortez MD, [facility] CPT-4: 72037 09/22/2017 ([id number]) 61864 EST. PATIENT, LEVEL III Diagnosis: Cough[ICD10: R05] Diagnosis: Acute bronchitis due to other specified organisms[ICD10: J20.8] Elen Cortez MD, [facility] CPT-4: 99734 04/01/2017 ([id number]) 38236 EST. PATIENT, LEVEL III Diagnosis: Otalgia, right ear[ICD10: H92.01] Diagnosis: Other allergic rhinitis[ICD10: J30.89] Shiela Cortez MD, [facility] CPT-4: 72684 03/25/2017 ([id number]) 93674 EST. PATIENT, LEVEL III Diagnosis: Benign paroxysmal vertigo, bilateral[ICD10: H81.13] Shiela Cortez MD, [facility] CPT-4: 70655 12/22/2016 ([id number]) 71520 EST. PATIENT, LEVEL IV Diagnosis: Benign paroxysmal vertigo, bilateral[ICD10: H81.13] Diagnosis: Other allergic rhinitis[ICD10: J30.89] Diagnosis: Hypothyroidism, unspecified[ICD10: E03.9] Shiela Cortez MD, [facility] CPT-4: 24761 12/08/2016 ([id number]) 90960 EST. PATIENT, LEVEL IV Diagnosis: Atrophy of thyroid (acquired)[ICD10: E03.4] Diagnosis: Essential (primary) hypertension[ICD10: I10] Diagnosis: Mixed hyperlipidemia[ICD10: E78.2] Elen Cortez MD, [facility] CPT-4: 11861 11/30/2016 64925 EST. PATIENT, LEVEL IV Diagnosis: Headache[ICD10: R51] Diagnosis: Other fatigue[ICD10: R53.83] Diagnosis: Dizziness and giddiness[ICD10: R42] Bridget Cortez MD, [facility] CPT-4: 57568 09/28/2016 12520 EST. PATIENT, LEVEL IV Diagnosis: Essential (primary) hypertension[ICD10: I10] Diagnosis: Headache[ICD10: R51] Bridget Cortez MD, [facility] CPT-4: 94715 07/06/2016 ([id number]) 33593 EST. PATIENT, LEVEL IV Diagnosis: Essential (primary) hypertension[ICD10: I10] Diagnosis: Atrophy of thyroid (acquired)[ICD10: E03.4] Diagnosis: Mixed hyperlipidemia[ICD10: E78.2] Elen Cortez MD, [facility] CPT-4: 97551 06/01/2016 95093 EST. PATIENT, LEVEL IV Diagnosis: Acute laryngopharyngitis[ICD10: J06.0] Diagnosis: Other allergic rhinitis[ICD10: J30.89] Diagnosis: Other specified hypothyroidism[ICD10: E03.8] Diagnosis: Other fatigue[ICD10: R53.83] Bridget Cortez MD, [facility] CPT-4 : 14426 02/27/2016 ([id number]) 80705 EST. PATIENT, LEVEL III Diagnosis: Essential (primary) hypertension[ICD10: I10] Diagnosis: Mixed hyperlipidemia[ICD10: E78.2] Elen Cortez MD, [facility] CPT-4: 70786 09/10/2015 ([id number]) 09083 EST. PATIENT, LEVEL IV Diagnosis: Essential (primary) hypertension[ICD10: I10] Diagnosis: Hypothyroidism, unspecified[ICD10: E03.9] Diagnosis: Unspecified osteoarthritis, unspecified site[ICD10: M19.90] Elen Cortez MD , [facility] CPT-4: 07083 05/14/2015 ([id number]) OFFICE VISIT, NEW - LEVEL 4 Diagnosis: Essential (primary) hypertension[ICD10: I10] Diagnosis: Hypothyroidism, unspecified[ICD10: E03.9] Diagnosis: Unspecified osteoarthritis, unspecified site[ICD10: M19.90] Elen Cortez MD , [facility] CPT-4: 24773 02/11/2015 Plan of Care Planned Activity Notes [...] 04/04/2018 Care Plan: Referral Order SNOMED-CT : [id number] Pending 04/04/2018 Visit Plan: Dysuria, dizziness, fatigue, [...] improvement. 04/01/2018 [phone] ([facility]) Moderate 04/01/2018 Patient Education: Patient Medication Summary Completed 04/01/2018 Visit Plan: Sinusitis - Pt has acute infection - pain in face, maxillary region, Pt informed to use decongestant, RX given to patient, sinus rinses also recommended. Call if symptoms do not show improvement. Dysuria - rx for antibiotic sent to pharmacy. 03/24/2018 Appointment: [phone] [facility] (15 min) Moderate 03/24/2018 Patient Education: [...] improve. 03/01/2018 Appointment: [phone] [facility] (15 min) Moderate 03/01/2018 Patient Education: Patient [...] spray. 12/24/2017 Appointment: Bridget Velazco WPtel: [phone] [phone] [facility] - Annual Wellness Visit 12/24/2017 Patient Education: Patient Medication Summary Completed 12/24/2017 Appointment: Bridget Velazco WPtel: [phone] [phone] (15 min) Moderate 11/30/2017 Appointment: Lab Draw [...] not improve. 11/18/2017 Appointment: Bridget Velazco WPtel: [phone] (15 min) Moderate 11/18/2017 Patient Education: Patient Medication Summary Completed 11/18/2017 Visit Plan: Sinusitis - Pt has acute infection - pain in face, maxillary region, Pt informed to use decongestant, RX given to patient, sinus rinses also recommended. Call if symptoms do not show improvement. 11/03/2017 Appointment: Bridget Velazco WPtel: [phone] (15 min) Moderate 11/03/2017 Patient Education: Patient [...] improve. 09/22/2017 Appointment: Bridget Velazco WPtel: [phone] [phone] (15 min) Moderate 09/22/2017 Patient Education: Patient Medication Summary Completed 09/22/2017 Visit Plan: Bronchitis - acute case of bronchitis identified. Pt has been given antibiotics, breathing treatments as appropriate, and pt has been instructed to call if symptoms are not improved, or if symptoms acutely worsen. 04/01/2017 Appointment: Elen Cortez WPtel: [facility] (15 min) Moderate 04/01/2017 Patient Education: [...] Shiela Srivastava WPtel: [phone] [place] (10 min) Simple 03/25/2017 Appointment: Elen Cortez WPtel: [facility] (15 min) Moderate 03/25/2017 Patient Education: [...] care surrogate. 12/23/2016 Appointment: Bridget Velazco WPtel: [phone] [phone] [facility] - Annual Wellness Visit 12/23/2016 Patient Education: Patient Medication Summary Completed 12/23/2016 Visit Plan: Vertigo-discussed PT for vestibular exercises- patient wants to wait since symptoms are improving-continue anti histamine as directed-meclizine as needed 12/22/2016 Appointment: Shiela Srivastava WPtel: [phone] (30 min) Complex 12/22/2016 Patient Education: Patient [...] control. 12/08/2016 Appointment: Shiela Srivastava WPtel: [phone] [phone] (30 min) Complex 12/08/2016 Patient Education: Patient [...] to medications. 11/30/2016 Appointment: [facility] Cortez [facility]el[facility] [phone] [phone] (15 min) Moderate 11/30/2016 Patient Education: Patient [...] or concerns. 09/28/2016 Appointment: [phone] ([facility] min) Complex 09/28/2016 Patient Education: [...] acute concerns. 07/06/2016 Appointment: Bridget Velazco WPtel: [facility] (15 min) Moderate 07/06/2016 Patient Education: Patient [...] not improving 06/01/2016 Appointment: Elen Cortez WPtel: [facility] (15 min) Moderate 06/01/2016 Patient Education: [...] labs 02/27/2016 Appointment: [facility] A [phone] (30 min) Complex 02/27/2016 Patient Education: Patient Medication Summary Completed 02/27/2016 Patient Education: Patient Medication Summary Completed 09/27/2015 Care Plan: SCREENINGMAMMOGRAPHYDIGITAL LOINC : 30934-2 Pending 09/27/2015 Visit Plan: Hypertension - well [...] colonoscopy 09/10/2015 Appointment: [facility] Cortez [facility]el[phone] [phone] (15 min) Moderate 09/10/2015 Patient Education: [...] Sanchez. 05/14/2015 Appointment: [facility] Cortez [facility]Ptel[phone] [facility] (15 min) Moderate 05/14/2015 Patient Education: Patient Medication Summary Completed 05/14/2015 Patient Education: Hypertension Completed 05/14/2015 Care Plan: Referral Order SNOMED-CT : [id number] Ordered 05/14/2015 Patient Education: Patient Medication Summary Completed 03/01/2015 Appointment: Nurse Visit 02/28/2015 Patient Education: Patient Medication Summary Completed 02/28/2015 Patient Education: Patient Medication Summary Completed 02/27/2015 Appointment: Nurse Visit 02/26/2015 Patient Education: Patient Medication Summary Completed 02/26/2015 Appointment: Injection 02/25/2015 Patient Education: Patient Medication Summary Completed 02/25/2015 Patient Education: Patient Medication Summary Completed 02/21/2015 Care Plan: URINALYSIS NONAUTO W/O SCOPE LOINC : 05029-8 Ordered 02/21/2015 Visit Plan: Hypertension - well [...] symptoms. 02/11/2015 Appointment: El[facility] Cortez [facility]Ptel[facility] [phone] [facility] New Patient 02/11/2015 Patient Education: Patient [...]
--- OUTSIDE RECORDS SUMMARY | 2018-06-01 13:05 | XMS REPORT | CCD ---
Author Author [facility]en [facility] Organization [facility] Address [address] [place] [address] Phone Care Team Providers Care Production Control Specialist Name Role Phone PP Unavailable CCM Unavailable Summary Purpose Interface Exchange Insurance Providers Payer name Policy type / Coverage type Covered alliance party ID Effective Begin Date Effective End Date WPS Medicare Part B Medicare Part B [id number] Unknown [place] Insurance Medicare Part B [id number] Unknown Family history Mother Diagnosis Age At [...] spouses - 02/11/[address]: [id number] Never smoker 02/11/2015 Alcohol history Unknown occasionally drinks alcohol 02/11/2015 Allergies, Adverse Reactions, Alerts Substance Reaction Codes Entered Date Inactivated Date Status CODEINE RxNorm: 2670 02/11/2015 No Inactive Date Active allergy Unknown 12/23/2016 No Inactive Date Active ciprofloxacin rash, RxNorm: 12281 02/26/2015 No Inactive Date Active hydrocodone Unknown 02/11/2015 No Inactive Date Active PREDNISONE RxNorm: 8640 03/29/2018 No Inactive Date Active GABAPENTIN Unknown 12/23/2016 No Inactive Date Active SULFA (SULFONAMIDES) Unknown 02/11/2015 No Inactive Date Active Past Medical History Illness Codes Condition Status Onset Date Resolved Date Dysuria ICD-9: 788.1 ICD-10: R30.0 Active 02/20/2015 Unknown Hypothyroidism, unspecified ICD-9: 244.9 ICD-10: E03.9 Active 02/26/2016 Unknown Acute laryngopharyngitis ICD-9: 465.0 ICD-10: J06.0 Active 02/26/2016 Unknown Candidal stomatitis ICD-9: 112.0 ICD-10: B37.0 Active 04/01/2018 Unknown Dizziness and giddiness ICD-9: 780.4 ICD-10: R42 Active 09/28/2016 Unknown Essential (primary) hypertension ICD-9: 401.1 ICD-10: I10 Active 04/01/2018 Unknown Other acute sinusitis ICD-9: 461.8 ICD-10: J01.80 Active 11/03/2017 Unknown Other fatigue ICD-9: 780.79 ICD-10: R53.83 Active 02/26/2016 Unknown Other malaise ICD-9: 780.79 ICD-10: R53.81 Active 09/22/2017 Unknown Acute recurrent maxillary sinusitis ICD-9: 461.0 ICD-10: J01.01 Active 03/24/2018 Unknown Headache ICD-9: 784.0 ICD-10: R51 Active 07/06/2016 Unknown Unspecified mycosis ICD-9: 117.9 ICD-10: B49 [...] Dysuria ICD-9: 788.1 ICD-10: R30.0 02/20/2015 Active Hypothyroidism, unspecified ICD-9: 244.9 ICD-10: E03.9 02/26/2016 Active Acute laryngopharyngitis ICD-9: 465.0 ICD-10: J06.0 02/26/2016 Active Candidal stomatitis ICD-9: 112.0 ICD-10: B37.0 04/01/2018 Active Dizziness and giddiness ICD-9: 780.4 ICD-10: R42 09/28/2016 Active Essential (primary) hypertension ICD-9: 401.1 ICD-10: I10 04/01/2018 Active Other acute sinusitis ICD-9: 461.8 ICD-10: J01.80 11/03/2017 Active Other fatigue ICD-9: 780.79 ICD-10: R53.83 02/26/2016 Active Other malaise ICD-9: 780.79 ICD-10: R53.81 09/22/2017 Active Acute recurrent maxillary sinusitis ICD-9: 461.0 ICD-10: J01.01 03/24/2018 Active Headache ICD-9: 784.0 ICD-10: R51 07/06/2016 Active Unspecified mycosis ICD-9: 117.9 ICD-10: B49 [...] ceftriaxone 500 mg solution for injection RxNorm: 3775631 Inj 04/04/2018 04/04/2018 Inactive nystatin 100,000 unit/mL oral suspension RxNorm: 150425 4 Milliliter(s) PO QID 04/01/2018 04/05/2018 Active doxycycline hyclate 100 mg tablet RxNorm: 4149348 1 Tablet(s) PO BID 04/01/2018 04/10/2018 Active prednisone 10 mg tablet RxNorm: 126777 1 Tablet(s) PO UD 6 pills on day 1 and 2 and then decrease by one pill every other day until prescription is done 03/24/2018 No Stop Date Active amoxicillin 500 mg capsule RxNorm: 071172 1 Capsule(s) PO TID 03/24/2018 04/02/2018 Inactive metoprolol succinate ER 50 mg tablet,extended release 24 hr RxNorm: 214693 Tablet (s) TAKE 1 TABLET BY MOUTH DAILY 03/21/2018 10/16/2018 Active PLEASE SEND REFILL REQUESTS ELECTRONICALLY!! Synthroid 88 mcg tablet RxNorm: 573008 TAKE 1 TABLET BY MOUTH DAILY 03/08/2018 08/04/2018 Active 03/07/2018 11:21:21 AM pravastatin 80 mg tablet RxNorm: 946066 Tablet(s) 1 Tablet(s) PO daily 03/01/2018 02/23/2019 Active Kenalog 40 mg/mL suspension for injection RxNorm: 9572202 Milliliter(s) Inj 12/24/2017 12/24/2017 Inactive cetirizine 10 mg tablet RxNorm: 7160297 TAKE 1 TABLET BY MOUTH DAILY 12/21/2017 07/18/2018 Active Generic For:*ZYRTEC 10 MG TABLET 12/21/2017 10:08:05 AM Synthroid 88 mcg tablet RxNorm: 916114 TAKE 1 TABLET BY MOUTH DAILY 12/07/2017 03/06/2018 Inactive 12/06/2017 11:46:49 AM Lipitor 80 mg tablet RxNorm: 230851 1 Tablet(s) PO daily 201702/28/2018 Inactive pravastatin 80 mg tablet RxNorm: 536274 1 Tablet(s) PO daily 11/29/2017 Inactive Lipitor 80 mg tablet RxNorm: 129922 1 Tablet(s) PO daily 201711/28/2017 Inactive lisinopril 20 mg tablet RxNorm: 660430 TAKE 1 TABLET BY MOUTH TWICE DAILY 11/23/2017 04/21/2018 Active Generic For:*PRINIVIL 20 MG TABLET 11/23/2017 11:29:44 AM Macrobid 100 mg capsule RxNorm: 595501 1 Capsule(s) PO BID 06/201711/25/2017 Inactive Macrobid 100 mg capsule RxNorm: 719720 1 Capsule(s) PO BID 06/201711/18/2017 Inactive Lomotil 2.5 mg-0.025 mg tablet RxNorm: 6751341 1 -2 Tablet(s) PO TID as needed 11/19/2017 11/25/2017 Inactive Lomotil 2.5 mg-0.025 mg tablet RxNorm: 2979817 1 -2 Tablet(s) PO TID as needed 11/19/2017 11/18/2017 Inactive Pyridium 200 mg tablet RxNorm: 6965696 1 Tablet(s) PO TID as needed 11/18/2017 11/22/2017 Inactive Augmentin 500 mg-125 mg tablet RxNorm: 022210 1 Tablet(s) PO TID 11/18/2017 11/27/2017 Inactive Keflex 500 mg capsule RxNorm: 272542 1 Capsule(s) PO TID 201711/09/2017 Inactive Denavir 1 % topical cream RxNorm: 678491 1 TOP TID as needed cold sores 11/01/2017 01/29/2018 Inactive Denavir 1 % topical cream RxNorm: 911378 1 TOP TID as needed cold sores 11/01/2017 10/31/2017 Inactive Synthroid 88 mcg tablet RxNorm: 612941 TAKE 1 TABLET BY MOUTH DAILY 09/29/2017 11/27/2017 Inactive 09/29/2017 12:58:07 PM pravastatin 80 mg tablet RxNorm: 247162 1 Tablet(s) PO daily 08/30/2017 Inactive pravastatin 80 mg tablet RxNorm: 693068 1 Tablet(s) PO daily 11/28/2017 Inactive Synthroid 88 mcg tablet RxNorm: 722060 TAKE 1 TABLET BY MOUTH DAILY 08/30/2017 09/28/2017 Inactive 08/30/2017 10:53:26 AM metoprolol succinate ER 50 mg tablet,extended release 24 hr RxNorm: 846982 Tablet (s) TAKE 1 TABLET BY MOUTH DAILY 08/17/2017 03/14/2018 Inactive PLEASE SEND REFILL REQUESTS ELECTRONICALLY!! lisinopril 20 mg tablet RxNorm: 362766 TAKE 1 TABLET BY MOUTH TWICE DAILY 06/18/2017 11/14/2017 Inactive Generic For:*PRINIVIL 20 MG TABLET 06/18/2017 1:31: 00 PM Synthroid 88 mcg tablet RxNorm: 395332 TAKE 1 TABLET BY MOUTH DAILY 05/24/2017 08/21/2017 Inactive 05/24/2017 2:13:21 PM cetirizine 10 mg tablet RxNorm: 2984946 1 Tablet(s) PO daily 12/12/2017 Inactive Zithromax Z-Russell 250 mg capsule RxNorm: 610198 1 Capsule(s) PO 04/02/2017 04/05/2017 Inactive Zithromax Z-Russell 250 mg tablet RxNorm: 246399 1 Tablet(s) PO 04/01/2017 Inactive Zithromax Z-Russell 250 mg capsule RxNorm: 598468 1 Capsule(s) PO 04/02/2017 04/01/2017 Inactive Zithromax Z-Russell 250 mg tablet RxNorm: 959064 1 Tablet(s) PO 04/06/2017 Inactive Ventolin HFA 90 mcg/actuation aerosol inhaler RxNorm: 331536 2 INH QID as needed - for the first 3 days inhale at least two puffs three times daily, then use as needed for shortness of breath 04/01/2017 04/30/2017 Inactive Keflex 500 mg capsule RxNorm: 540017 1 Capsule(s) PO TID 201604/01/2017 Inactive meclizine 25 mg tablet RxNorm: 070800 1 Tablet(s) PO Q6 PRN 1 Tablet(s) PO Q6 PRN 03/25/2017 No Stop Date Active dizziness meclizine 25 mg tablet RxNorm: 608582 Tablet(s) 1 Tablet(s) PO Q6 PRN 03/25/2017 03/24/2017 Inactive dizziness Kenalog 40 mg/mL suspension for injection RxNorm: 5809996 1 Milliliter(s) Inj 03/25/2017 03/25/2017 Inactive meclizine 25 mg tablet RxNorm: 283228 1 Tablet(s) PO Q6 PRN 03/24/2017 Inactive dizziness lisinopril 20 mg tablet RxNorm: 220640 1 Tablet(s) PO BID 01/1506/13/2017 Inactive metoprolol succinate ER 50 mg tablet,extended release 24 hr RxNorm: 616278 TAKE 1 TABLET BY MOUTH DAILY 01/07/20172017 Inactive Generic For:TOPROL XL 50MG TAB 01/07/2017 12:38:23 PM Synthroid 88 mcg tablet RxNorm: 207167 TAKE 1 TABLET BY MOUTH DAILY 12/25/2016 05/23/2017 Inactive 12/25/2016 9:47:08 AM Zithromax Z-Russell 250 mg tablet RxNorm: 377273 Tablet(s) PO UD 03/24/2017 Inactive meclizine 25 mg tablet RxNorm: 103664 1 Tablet(s) PO Q6 PRN 12/20/2016 Inactive dizziness Kenalog 40 mg/mL suspension for injection RxNorm: 5313204 Milliliter(s) Inj 12/08/2016 12/08/2016 Inactive meloxicam 15 mg tablet RxNorm: 665285 1 Tablet(s) PO daily 12/20/2016 Inactive cetirizine 10 mg tablet RxNorm: 0164278 1 Tablet(s) PO daily 05/16/2017 Inactive pravastatin 40 mg tablet RxNorm: 535996 1 Tablet(s) PO BID 07/201608/30/2017 Inactive Cancel 80 mg tab lisinopril 20 mg tablet RxNorm: 550917 1 Tablet(s) PO BID 08/1212/22/2016 Inactive Synthroid 88 mcg tablet RxNorm: 595471 1 Tablet(s) PO TAKE ONE (1) TABLET BY MOUTH DAILY 07/28/2016 12/24/2016 Inactive decrease dose hydralazine 25 mg tablet RxNorm: 244226 1 Tablet(s) PO TID as needed for Systolic blood pressure over 170 07/06/20162016 Inactive lisinopril 20 mg tablet RxNorm: 090335 1 Tablet(s) PO BID to replace your other lisinopril dose 07/06/2016 08/04/2016 Inactive lisinopril 10 mg tablet RxNorm: 086117 TAKE ONE TABLET BY MOUTH TWICE DAILY 06/10/2016 08/11/2016 Inactive Generic For:ZESTRIL 10 MG TABLET 06/09/2016 12:58: 50 PM triamcinolone acetonide 0.1 % topical cream RxNorm: 6190111 1 Application TOP TID as needed 06/01/2016 No Stop Date Active nystatin 100,000 unit/gram topical cream RxNorm: 892138 1 Gram(s) TOP TID as needed 06/01/2016 No Stop Date Active metoprolol succinate ER 50 mg tablet,extended release 24 hr RxNorm: 184536 1 Tablet(s) PO daily 05/26/2016 12/21/2016 Inactive cetirizine 10 mg tablet RxNorm: 3897318 1 Tablet(s) PO daily 10/18/2016 Inactive Synthroid 88 mcg tablet RxNorm: 280768 1 Tablet(s) PO TAKE ONE (1) TABLET BY MOUTH DAILY 03/06/2016 03/07/2018 Inactive Brand name only! Synthroid 88 mcg tablet RxNorm: 494726 1 Tablet(s) PO TAKE ONE (1) TABLET BY MOUTH DAILY 03/04/2016 03/05/2016 Inactive decrease dose cetirizine 10 mg tablet RxNorm: 1033924 1 Tablet(s) PO daily 03/22/2016 Inactive amoxicillin 500 mg capsule RxNorm: 161934 1 Capsule(s) PO TID 02/27/2016 03/04/2016 Inactive lisinopril 10 mg tablet RxNorm: 342886 TAKE ONE TABLET BY MOUTH TWICE DAILY 02/06/2016 06/04/2016 Inactive Generic For:ZESTRIL 10 MG TABLET 02/06/2016 12:16: 38 PM Synthroid 100 mcg tablet RxNorm: 896619 TAKE ONE (1) TABLET BY MOUTH DAILY 01/03/2016 03/03/2016 Inactive 01/03/2016 10:35:14 AM N O T I C E Last quantity doesn't match original quantity lisinopril 10 mg tablet RxNorm: 269036 1 Tablet(s) PO BID 10/0301/31/2016 Inactive Synthroid 100 mcg tablet RxNorm: 206140 1 Tablet(s) PO daily 01/02/2016 Inactive metoprolol succinate ER 50 mg tablet,extended release 24 hr RxNorm: 700817 1 Tablet(s) PO daily 10/04/2015 04/30/2016 Inactive Tylenol Arthritis 650 mg tablet,extended release RxNorm: 5104543 2 Tablet(s) PO TID 09/10/2015 No Stop Date Active metoprolol succinate ER 50 mg tablet,extended release 24 hr RxNorm: 369701 1 Tablet(s) PO daily 09/05/2015 10/03/2015 Inactive pravastatin 80 mg tablet RxNorm: 492595 1 Tablet(s) PO QHS 08/30/2015 Inactive pravastatin 40 mg tablet RxNorm: 804362 1 Tablet(s) PO BID 08/29/2015 Inactive Cancel 80 mg tab pravastatin 40 mg tablet RxNorm: 908276 1 Tablet(s) PO BID 08/19/2016 Inactive Cancel 80 mg tab lisinopril 10 mg tablet RxNorm: 977171 1 Tablet(s) PO BID 06/1308/11/2016 Inactive lisinopril 10 mg tablet RxNorm: 004354 1 Tablet(s) PO BID 06/1310/03/2015 Inactive Synthroid 100 mcg tablet RxNorm: 375694 1 Tablet(s) PO daily 10/03/2015 Inactive ceftriaxone 1 gram solution for injection RxNorm: 8850799 Inj 03/01/2015 03/01/2015 Inactive ceftriaxone 1 gram solution for injection RxNorm: 2621551 Inj 02/28/2015 02/28/2015 Inactive ceftriaxone 1 gram solution for injection RxNorm: 7613294 Inj 02/27/2015 02/27/2015 Inactive ceftriaxone 1 gram solution for injection RxNorm: 7008936 Inj 02/26/2015 02/26/2015 Inactive ceftriaxone 1 gram solution for injection RxNorm: 5430891 Inj 02/25/2015 02/25/2015 Inactive phenazopyridine 200 mg tablet RxNorm: 2236113 1 Tablet(s) PO Q8 02/21/2015 02/20/2015 Inactive Cipro 500 mg tablet RxNorm: 044379 1 Tablet(s) PO BID 201402/20/2015 Inactive phenazopyridine 200 mg tablet RxNorm: 1389528 1 Tablet(s) PO Q8 02/21/2015 02/25/2015 Inactive Cipro 500 mg tablet RxNorm: 793725 1 Tablet(s) PO BID 201402/27/2015 Inactive lisinopril 10 mg tablet RxNorm: 681310 1 Tablet(s) PO BID 02/1406/12/2015 Inactive metoprolol succinate ER 50 mg tablet,extended release 24 hr RxNorm: 608969 3/4 Tablet(s) PO daily 02/11/2015 09/04/2015 Inactive Voltaren 1 % topical gel RxNorm: 807670 2 Gram(s) TOP QID use this on affected joints up to four times daily. 02/11/2015 03/12/2015 Inactive Probiotic oral RxNorm : 6205 oral No Start Date Active aspirin 81 mg tablet RxNorm: 068786 1 Tablet(s) PO daily No Start Date Active Super B-Complex tablet RxNorm: 1 Tablet(s) PO No Start Date Active Flonase Allergy Relief 50 mcg/actuation nasal spray, suspension RxNorm: 8857333 1 [place] NASAL BID No Start Date Active Super-D3+ oral RxNorm : oral No Start Date Active Prilosec OTC 20 mg tablet,delayed release RxNorm: 663449 2 Tablet(s) PO QAM No Start Date Active Flonase Allergy Relief 50 mcg/actuation nasal spray, suspension RxNorm: 1715511 1 [place] NASAL as needed No Start Date Active Move Free Ultra 40 mg-10 mg-3.3 mg tablet RxNorm: 1 Tablet(s) PO daily No Start Date Active metoprolol tartrate 50 mg tablet RxNorm: 536397 1 Tablet(s) PO daily No Start Date 02/10/2015 Inactive lisinopril 10 mg tablet RxNorm: 356080 1 Tablet(s) PO BID No Start Date 02/13/2015 Inactive pravastatin 80 mg tablet RxNorm: 822101 1 Tablet(s) PO daily No Start Date 08/29/2015 Inactive Synthroid 100 mcg tablet RxNorm: 020714 1 Tablet(s) PO daily No Start Date 06/09/2015 Inactive lisinopril 40 mg tablet RxNorm: 118608 1 Tablet(s) PO BID No Start Date 02/28/2018 Inactive Tylenol Arthritis 650 mg tablet,extended release RxNorm: 8871736 4 Tablet(s) PO daily No Start Date 09/09/2015 Inactive Medication Administered Medication Codes Instructions Start Date Status ceftriaxone 500 mg solution for injection RxNorm: 2697900 04/04/2018 Active Kenalog 40 mg/mL suspension for injection RxNorm: 5438967 Milliliter 12/24/2017 No longer Active Kenalog 40 mg/mL suspension for injection RxNorm: 1755488 1Milliliter 03/25/2017 No longer Active Kenalog 40 mg/mL suspension for injection RxNorm: 3398929 Milliliter 12/08/2016 No longer Active ceftriaxone 1 gram solution for injection RxNorm: 2945144 03/01/2015 No longer Active ceftriaxone 1 gram solution for injection RxNorm: 6160080 02/28/2015 No longer Active ceftriaxone 1 gram solution for injection RxNorm: 1587283 02/27/2015 No longer Active ceftriaxone 1 gram solution for injection RxNorm: 5940030 02/26/2015 No longer Active ceftriaxone 1 gram solution for injection RxNorm: 0856267 02/25/2015 No longer Active Immunizations Vaccine Codes Date Status Influenza CVX: 141 01/18/2018 completed Influenza CVX: 141 03/15/2017 completed Influenza CVX: 141 03/18/2016 completed Influenza CVX: 141 02/11/2015 completed Assessments Condition Codes Effective Dates Dysuria ICD-10: R30.0 ICD-9: 788.1 04/04/2018 Hypothyroidism, unspecified ICD-10: E03.9 ICD-9: 244.9 04/04/2018 Dizziness and giddiness ICD-10: R42 ICD-9: 780.4 04/01/2018 Essential (primary) hypertension ICD-10: I10 ICD-9: 401.1 04/01/2018 Candidal stomatitis ICD-10: B37.0 ICD-9: 112.0 04/01/2018 Other acute sinusitis ICD-10: J01.80 ICD-9: 461.8 04/01/2018 Other fatigue ICD-10: R53.83 ICD-9: 780.79 04/01/2018 Other malaise ICD-10: R53.81 ICD-9: 780.79 04/01/2018 Unspecified mycosis ICD-10: B49 ICD-9: 117.9 03/24/2018 Acute recurrent maxillary sinusitis ICD-10: J01.01 ICD-9: 461.0 03/24/2018 Headache ICD-10: R51 ICD-9: 784.0 03/24/2018 Otalgia, right ear ICD-10: H92.01 ICD-9: [...] Reason For Visit Effective Dates Notes urinary urgency 04/01/2018 dysuria 03/24/2018 headache 03/01/2018 Annual Medicare Wellness Exam 12/24/2017 urinary retention/hesitancy 11/18/2017 earache 11/03/2017 fatigue 09/22/2017 vertigo 04/01/2017 earache 03/25/2017 Annual Medicare Wellness Exam 12/23/2016 vertigo 12/22/2016 headache 12/08/2016 hypertension 11/30/2016 headache 09/28/2016 hypertension 07/06/2016 hypertension 06/01/2016 fatigue 02/27/2016 hypertension 09/10/2015 hypertension 05/14/2015 hypertension 02/11/2015 Results Observation Observation Code Item Item Code Result Date Urine Culture Ucult Preliminary NO Growth Day 1 03/28/2018 Urine Culture Ucult Complete NO Growth Day 2 03/28/2018 Urine Culture Ucult Complete >100,000 col/ml aerobic growth sent to ref lab 11/19/2017 B12 Uib039 B12 712.00 pg/ml 09/28/2017 C-Reactive Protein Qnt Crqnt CRP 0.1 mg/dl 09/23/2017 Comp Metabolic Gmc785 NA 139 mEq/L 09/23/2017 Comp Metabolic Quu810 K 4.8 mEq/L 09/23/2017 Comp Metabolic Crx649 CL 104 mEq/L 09/23/2017 Comp Metabolic Nkx406 CO2 28.0 mEq/L 09/23/2017 Comp Metabolic Fhv149 ANION GAP 12 09/23/2017 Comp Metabolic Xci070 GLUCOSE 92 mg/dL 09/23/2017 Comp Metabolic Xgx047 Creat 0.7 mg/dL 09/23/2017 Comp Metabolic Skx350 eGFR 91 ml/min/1.73m2 09/23/2017 Comp Metabolic Jim123 BUN 11 mg/dL 09/23/2017 Comp Metabolic Onh749 B/C Ratio 16.4 Ratio 09/23/2017 Comp Metabolic Ejm311 CALCIUM 9.0 mg/dL 09/23/2017 Comp Metabolic Gui746 ALK PHOS 76 U/L 09/23/2017 Comp Metabolic Ehb649 AST(SGOT) 24 U/L 09/23/2017 Comp Metabolic Myl389 ALT(SGPT) 21 U/L 09/23/2017 Comp Metabolic Yfz385 BILI T 0.3 mg/dL 09/23/2017 Comp Metabolic Lyh161 ALBUMIN 4.1 g/dL 09/23/2017 Comp Metabolic Oxf693 TPRO 6.2 g/dL 09/23/2017 Comp Metabolic Dex772 GLOB 2.1 g/dL 09/23/2017 Comp Metabolic Bvt022 A/G Ratio 1.9 Ratio 09/23/2017 Comp Metabolic Joo294 Osmo 277 mOsmo 09/23/2017 Sed Rate Ord21 ESR 3 mm/hr 09/22/2017 Vitamin D 25 Oh Hwv4781 VITAMIN D, 25 HYDROXY 78.79 ng/mL Tsh [...] 97.1 fl 09/22/2017 Cbc With Differential Ord2 [place]% 10.5 % 09/22/2017 Cbc With Differential Ord2 [...] 2.37 K/ul 09/22/2017 Cbc With Differential Ord2 [place] ABS# 0.9 K/ul 09/22/2017 Cbc With Differential Ord2 Eos ABS# 0.2 K/ul 09/22/2017 Cbc With Differential Ord2 Baso ABS# 0.0 K/ul 09/22/2017 Free T4 Fdu258 FREE T4 0.99 ng/dL 09/22/2017 %Hba1C Twk101 % HbA1c 40413-1 6.0 % 12/10/2016 %Hba1C Evd632 Gluc Ave 126 mg/dL 12/10/2016 Tsh Ord6 hTSH II 0.89 uIU/mL 12/09/2016 Free T4 Puh218 FREE T4 0.99 ng/dL 12/09/2016 Comp Metabolic Fqa953 NA 138 mEq/L 12/09/2016 Comp Metabolic Aum838 K 5.2 mEq/L 12/09/2016 Comp Metabolic Yux914 CL 104 mEq/L 12/09/2016 Comp Metabolic Zyj825 CO2 29.0 mEq/L 12/09/2016 Comp Metabolic Zue238 ANION GAP 10 12/09/2016 Comp Metabolic Bgx173 GLUCOSE 135 mg/dL 12/09/2016 Comp Metabolic Wfc355 Creat 0.8 mg/dL 12/09/2016 Comp Metabolic Trn836 eGFR 79 ml/min/1.73m2 12/09/2016 Comp Metabolic Ask962 BUN 18 mg/dL 12/09/2016 Comp Metabolic Mke136 B/C Ratio 23.7 Ratio 12/09/2016 Comp Metabolic Goj784 CALCIUM 9.5 mg/dL 12/09/2016 Comp Metabolic Upn961 ALK PHOS 73 U/L 12/09/2016 Comp Metabolic Gaw663 AST(SGOT) 24 U/L 12/09/2016 Comp Metabolic Nzw920 ALT(SGPT) 20 U/L 12/09/2016 Comp Metabolic Vun134 BILI T 0.3 mg/dL 12/09/2016 Comp Metabolic Wve527 ALBUMIN 4.3 g/dL 12/09/2016 Comp Metabolic Rlv770 TPRO 6.4 g/dL 12/09/2016 Comp Metabolic Ltu195 GLOB 2.1 g/dL 12/09/2016 Comp Metabolic Qst842 A/G Ratio 2.0 Ratio 12/09/2016 Comp Metabolic Sng562 Osmo 280 mOsmo 12/09/2016 Cbc With Differential [...] 31.3 pg 12/09/2016 Cbc With Differential Ord2 [place]% 6.5 % 12/09/2016 Cbc With Differential Ord2 [...] 1.84 K/ul 12/09/2016 Cbc With Differential Ord2 [place] ABS# 0.6 K/ul 12/09/2016 Cbc With Differential Ord2 Eos ABS# 0.1 K/ul 12/09/2016 Cbc With Differential Ord2 Baso ABS# 0.1 K/ul 12/09/2016 Tsh Ord6 hTSH II 1.19 uIU/mL 09/02/2016 Free T4 Xvg731 FREE T4 0.97 ng/dL 09/02/2016 Comp Metabolic Jsf300 NA 137 mEq/L 06/01/2016 Comp Metabolic Umo805 K 4.1 mEq/L 06/01/2016 Comp Metabolic Uug639 CL 104 mEq/L 06/01/2016 Comp Metabolic Rpc244 CO2 25.0 mEq/L 06/01/2016 Comp Metabolic Qhf938 ANION GAP 12 06/01/2016 Comp Metabolic Prs676 GLUCOSE 108 mg/dL 06/01/2016 Comp Metabolic Ndl511 Creat 0.8 mg/dL 06/01/2016 Comp Metabolic Otu347 eGFR 80 ml/min/1.73m2 06/01/2016 Comp Metabolic Ctv899 BUN 15 mg/dL 06/01/2016 Comp Metabolic Wzi232 B/C Ratio 20.0 Ratio 06/01/2016 Comp Metabolic Yvx901 CALCIUM 9.1 mg/dL 06/01/2016 Comp Metabolic Qib680 ALK PHOS 89 U/L 06/01/2016 Comp Metabolic Kzf310 AST(SGOT) 25 U/L 06/01/2016 Comp Metabolic Mhi874 ALT(SGPT) 20 U/L 06/01/2016 Comp Metabolic Sbf778 BILI T 0.3 mg/dL 06/01/2016 Comp Metabolic Wgi387 ALBUMIN 4.2 g/dL 06/01/2016 Comp Metabolic Ske652 TPRO 6.2 g/dL 06/01/2016 Comp Metabolic Ndv864 GLOB 2.0 g/dL 06/01/2016 Comp Metabolic Uve688 A/G Ratio 2.1 Ratio 06/01/2016 Comp Metabolic Rbe299 Osmo 275 mOsmo 06/01/2016 Free T4 Qtg436 FREE T4 0.94 ng/dL 06/01/2016 Tsh Ord6 [...] 31.1 pg 06/01/2016 Cbc With Differential Ord2 [place]% 8.4 % 06/01/2016 Cbc With Differential Ord2 [...] 2.96 K/ul 06/01/2016 Cbc With Differential Ord2 [place] ABS# 0.6 K/ul 06/01/2016 Cbc With Differential [...] 31.3 pg 02/27/2016 Cbc With Differential Ord2 [place]% 10.0 % 02/27/2016 Cbc With Differential Ord2 [...] 2.28 K/ul 02/27/2016 Cbc With Differential Ord2 [place] ABS# 0.9 K/ul 02/27/2016 Cbc With Differential Ord2 Eos ABS# 0.3 K/ul 02/27/2016 Cbc With Differential Ord2 Baso ABS# 0.1 K/ul 02/27/2016 Tsh Ord6 hTSH II 0.18 uIU/mL 02/27/2016 Free T4 Pmy665 FREE T4 1.17 ng/dL 02/27/2016 Comp Metabolic Exu033 NA 135 mEq/L 02/27/2016 Comp Metabolic Yjr589 K 5.2 mEq/L 02/27/2016 Comp Metabolic Zrs219 CL 102 mEq/L 02/27/2016 Comp Metabolic Sxj911 CO2 27.0 mEq/L 02/27/2016 Comp Metabolic Amz378 ANION GAP 11 02/27/2016 Comp Metabolic Uql665 GLUCOSE 93 mg/dL 02/27/2016 Comp Metabolic Wpr283 Creat 0.7 mg/dL 02/27/2016 Comp Metabolic Knc093 eGFR 91 ml/min/1.73m2 02/27/2016 Comp Metabolic Xny889 BUN 14 mg/dL 02/27/2016 Comp Metabolic Idf141 B/C Ratio 20.9 Ratio 02/27/2016 Comp Metabolic Fsw836 CALCIUM 9.4 mg/dL 02/27/2016 Comp Metabolic Bsr487 ALK PHOS 100 U/L 02/27/2016 Comp Metabolic Iik627 AST(SGOT) 23 U/L 02/27/2016 Comp Metabolic Clz341 ALT(SGPT) 24 U/L 02/27/2016 Comp Metabolic Unl322 BILI T 0.2 mg/dL 02/27/2016 Comp Metabolic Zal119 ALBUMIN 4.3 g/dL 02/27/2016 Comp Metabolic Cin377 TPRO 6.3 g/dL 02/27/2016 Comp Metabolic Cbh964 GLOB 2.1 g/dL 02/27/2016 Comp Metabolic Ule112 A/G Ratio 2.1 Ratio 02/27/2016 Comp Metabolic Nle488 Osmo 270 mOsmo 02/27/2016 Free T4 Wjt985 FREE T4 1.03 ng/dL 05/10/2015 Comp Metabolic Oau776 NA 137 mEq/L 05/10/2015 Comp Metabolic Arx877 K 4.4 mEq/L 05/10/2015 Comp Metabolic Jcg964 CL 102 mEq/L 05/10/2015 Comp Metabolic Byw686 CO2 28.0 mEq/L 05/10/2015 Comp Metabolic Ytc661 ANION GAP 11 05/10/2015 Comp Metabolic Jju121 GLUCOSE 108 mg/dL 05/10/2015 Comp Metabolic Ibm062 Creat 0.7 mg/dL 05/10/2015 Comp Metabolic Krc356 eGFR 86 ml/min/1.73m2 05/10/2015 Comp Metabolic Ken886 BUN 13 mg/dL 05/10/2015 Comp Metabolic Kpo225 B/C Ratio 18.3 Ratio 05/10/2015 Comp Metabolic Tlz099 CALCIUM 9.4 mg/dL 05/10/2015 Comp Metabolic Pnb645 ALK PHOS 94 U/L 05/10/2015 Comp Metabolic Wxt863 AST(SGOT) 22 U/L 05/10/2015 Comp Metabolic Oac569 ALT(SGPT) 21 U/L 05/10/2015 Comp Metabolic Myv293 BILI T 0.3 mg/dL 05/10/2015 Comp Metabolic Lup245 ALBUMIN 3.9 g/dL 05/10/2015 Comp Metabolic Wlk341 TPRO 6.1 g/dL 05/10/2015 Comp Metabolic Ejb822 GLOB 2.2 g/dL 05/10/2015 Comp Metabolic Gta736 A/G Ratio 1.7 Ratio 05/10/2015 Comp Metabolic Fir842 Osmo 274 mOsmo 05/10/2015 Tsh Ord6 hTSH [...] 29.4 pg 05/10/2015 Cbc With Differential Ord2 [place]% 9.0 % 05/10/2015 Cbc With Differential Ord2 [...] 2.14 K/ul 05/10/2015 Cbc With Differential Ord2 [place] ABS# 0.5 K/ul 05/10/2015 Cbc With Differential [...] Ord30 C/HDL 3.8 Ratio 05/10/2015 Culture Urine [id number] URINE CULTURE SEE NOTES 02/25/2015 Culture Urine [id number] Continued Results 02/25/2015 Urine Culture Ucult Complete >100,000 col/ml aerobic growth sent to ref lab 02/22/2015 Free T4 Prs579 FREE T4 1.16 ng/dL 02/11/2015 Tsh Ord6 hTSH II 0.51 uIU/mL 02/11/2015 Review of Systems System Result Effective Dates Eyes No eye discharge 04/01/2018 Eyes No [...] clear 04/01/2017 None Full Exam - General 1995 Ears/Nose/Throat oral cavity/pharynx/larynx Overall: no masses 04/01/2017 None Full Exam - General 1995 Ears/Nose/Throat [...] Procedure Codes Date THER/PROPH/DIAG INJ SC/IM CPT-4: 50124 04/04/2018 ROCEPHIN, PER 250 MG CPT-4: J0696 04/04/2018 URINALYSIS NONAUTO W/O SCOPE CPT-4: 72098 03/24/2018 PPPS, SUBSEQ VISIT CPT -4: G0439 12/24/2017 THER/PROPH/DIAG INJ SC/IM CPT-4: 93487 12/24/2017 TRIAMCINOLONE ACET INJ NOS CPT-4: J3301 12/24/2017 THER/PROPH/DIAG INJ SC/IM CPT-4: 32029 11/18/2017 ROCEPHIN, PER 250 MG CPT-4: J0696 11/18/2017 PRESCRIP TRANSMIT VIA ERX SY CPT-4: G8553 04/01/2017 TRIAMCINOLONE ACET INJ NOS CPT-4: J3301 03/25/2017 PPPS, SUBSEQ VISIT CPT -4: G0439 12/23/2016 THER/PROPH/DIAG INJ SC/IM CPT-4: 82416 12/08/2016 TRIAMCINOLONE ACET INJ NOS CPT-4: J3301 12/08/2016 PRESCRIP TRANSMIT VIA ERX SY CPT-4: G8553 12/08/2016 PRESCRIP TRANSMIT VIA ERX SY CPT-4: G8553 11/30/2016 URINALYSIS NONAUTO W/O SCOPE CPT-4: 87124 07/08/2016 PRESCRIP TRANSMIT VIA ERX SY CPT-4: G8553 06/01/2016 PRESCRIP TRANSMIT VIA ERX SY CPT-4: G8553 02/27/2016 THER/PROPH/DIAG INJ SC/IM CPT-4: 84717 03/01/2015 ROCEPHIN, PER 250 MG CPT-4: J0696 03/01/2015 THER/PROPH/DIAG INJ SC/IM CPT-4: 27130 02/28/2015 ROCEPHIN, PER 250 MG CPT-4: J0696 02/28/2015 THER/PROPH/DIAG INJ SC/IM CPT-4: 55520 02/27/2015 ROCEPHIN, PER 250 MG CPT-4: J0696 02/27/2015 THER/PROPH/DIAG INJ SC/IM CPT-4: 46337 02/26/2015 ROCEPHIN, PER 250 MG CPT-4: J0696 02/26/2015 THER/PROPH/DIAG INJ SC/IM CPT-4: 32149 02/25/2015 ROCEPHIN, PER 250 MG CPT-4: J0696 02/25/2015 URINALYSIS NONAUTO W/O SCOPE CPT-4: 80075 02/21/2015 Vital Signs Date Vital 04/04/2018 Blood Pressure 1: 130/60 Code : 8480-6 Heart Rate 1: 78 bpm Height: Weight: 04/01/2018 Blood Pressure 1: 134/58 Code : 8480-6 BMI: 27.8 Code : 83860-6 Heart Rate 1 : 85 bpm Height: 5'3" SpO2: 96% Weight: 157 lbs 03/24/2018 Blood Pressure 1: 128/82 Code : 8480-6 BMI: 27.8 Code : 63546-5 Heart Rate 1 : 84 bpm Height: 5'3" SpO2: 97% Weight: 157 lbs 03/01/2018 Blood Pressure 1: 136/70 Code : 8480-6 BMI: 27.8 Code : 43627-8 Heart Rate 1 : 70 bpm Height: 5'3" SpO2: 96% Weight: 157 lbs 12/24/2017 Height: Weight: 11/18/2017 Blood Pressure 1: 164/74 Code : 8480-6 BMI: 27.6 Code : 84368-5 Heart Rate 1 : 70 bpm Height: 5'3" SpO2: 96% Weight: 156 lbs 11/03/2017 Blood Pressure 1: 118/72 Code : 8480-6 BMI: 27.6 Code : 58993-7 Heart Rate 1 : 82 bpm Height: 5'3" SpO2: 96% Weight: 156 lbs 09/22/2017 Blood Pressure 1: 136/68 Code : 8480-6 BMI: 27.6 Code : 38916-0 Heart Rate 1 : 70 bpm Height: 5'3" SpO2: 97% Weight: 156 lbs 04/01/2017 Blood Pressure 1: 144/82 Code : 8480-6 Heart Rate 1: 68 bpm Height: 5'3" SpO2: 97% Weight: 03/25/2017 Blood Pressure 1: 116/70 Code : 8480-6 BMI: 26.7 Code : 42992-3 Heart Rate 1 : 67 bpm Height: 5'3" SpO2: 98% Weight: 151 lbs 12/23/2016 BMI: 26.7 Code: 78956-9 Height: 5'3" Weight: 151 lbs 12/22/2016 Blood Pressure 1: 142/60 Code : 8480-6 BMI: 26.7 Code : 94069-7 Heart Rate 1 : 67 bpm Height: 5'3" SpO2: 98% Weight: 151 lbs 12/08/2016 Blood Pressure 1: 140/72 Code : 8480-6 Heart Rate 1: 72 bpm Height: 5'3" SpO2: 97% Weight: 11/30/2016 Blood Pressure 1: 128/80 Code : 8480-6 BMI: 26.7 Code : 13674-0 Heart Rate 1 : 63 bpm Height: 5'3" SpO2: 96% Weight: 151 lbs 09/28/2016 Blood Pressure 1: 130/80 Code : 8480-6 BMI: 27.1 Code : 62690-9 Heart Rate 1 : 80 bpm Height: 5'3" SpO2: 97% Weight: 153 lbs 07/06/2016 Blood Pressure 1: 162/72 Code : 8480-6 BMI: 27.6 Code : 51991-6 Heart Rate 1 : 72 bpm Height: 5'3" SpO2: 98% Weight: 156 lbs 06/01/2016 Blood Pressure 1: 122/66 Code : 8480-6 BMI: 27.5 Code : 61779-1 Heart Rate 1 : 73 bpm Height: 5'3" SpO2: 98% Weight: 155 lbs 8 oz 02/27/2016 Blood Pressure 1: 126/68 Code : 8480-6 BMI: 26.9 Code : 10150-9 Heart Rate 1 : 70 bpm Height: 5'3" SpO2: 98% Weight: 152 lbs 09/10/2015 Blood Pressure 1: 130/70 Code : 8480-6 BMI: 26.9 Code : 71231-2 Heart Rate 1 : 72 bpm Height: 5'3" SpO2: 97% Weight: 152 lbs 05/14/2015 Blood Pressure 1: 138/82 Code : 8480-6 BMI: 26.4 Code : 07508-0 Heart Rate 1 : 75 bpm Height: 5'3" SpO2: 98% Weight: 149 lbs 02/11/2015 Blood Pressure 1: 128/72 Code : 8480-6 BMI: 25.5 Code : 28360-4 Heart Rate 1 : 73 bpm Height: 5'3" SpO2: 94% Weight: 144 lbs Functional Status No Functional Status data History of Present Illness Symptom Name Status Result Effective Date Notes Onset and Resolution ongoing 04/01/2018 None Onset [...] data Encounters Encounter Performer Location Codes Date 99940 EST. PATIENT, LEVEL III Diagnosis: Other acute sinusitis[ICD10: J01.80] Diagnosis: Dizziness and giddiness[ICD10: R42] Diagnosis: Dysuria[ICD10: R30.0] Diagnosis: Candidal stomatitis[ICD10: B37.0] Diagnosis: Essential (primary) hypertension[ICD10: I10] Diagnosis: Other fatigue[ICD10: R53.83] Diagnosis: Other malaise[ICD10: R53.81] Bridget Cortez MD, [facility] CPT-4 : 96152 04/01/201857542 33706 EST. 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 CPT-4: 34035 03/24/2018 ([id number]) 05631 EST. PATIENT, LEVEL IV Diagnosis: Otalgia, right ear[ICD10: H92.01] Diagnosis: Headache[ICD10: R51] Diagnosis: Other fatigue[ICD10: R53.83] Diagnosis: Abnormal findings on diagnostic imaging of other specified body structures[ICD10: R93.89] Elen Cortez MD, [facility] CPT-4: 72593 03/01/2018 38954 EST. PATIENT, LEVEL III Diagnosis: Acute cystitis with hematuria[ICD10: N30.01] Bridget Cortez MD, [facility] CPT-4: 64787 11/18/2017 09687 EST. PATIENT, LEVEL IV Diagnosis: Other acute sinusitis[ICD10: J01.80] Diagnosis: Otalgia, right ear[ICD10: H92.01] Bridget Cortez MD, [facility] CPT -4: 86871 11/03/2017 60849 EST. PATIENT, LEVEL III Diagnosis: Other fatigue[ICD10: R53.83] Diagnosis: Other malaise[ICD10: R53.81] Diagnosis: Pain in left knee[ICD10: M25.562] Diagnosis: Pain in right knee[ICD10: M25.561] Bridget Cortez MD, [facility] CPT-4: 86611 09/22/2017 ([id number]) 57710 EST. PATIENT, LEVEL III Diagnosis: Cough[ICD10: R05] Diagnosis: Acute bronchitis due to other specified organisms[ICD10: J20.8] Elen Cortez MD, [facility] CPT-4: 03063 04/01/2017 ([id number]) 90274 EST. PATIENT, LEVEL III Diagnosis: Otalgia, right ear[ICD10: H92.01] Diagnosis: Other allergic rhinitis[ICD10: J30.89] Shiela Cortez MD, [facility] CPT-4: 66471 03/25/2017 ([id number]) 46561 EST. PATIENT, LEVEL III Diagnosis: Benign paroxysmal vertigo, bilateral[ICD10: H81.13] Shiela Cortez MD, [facility] CPT-4: 87320 12/22/2016 ([id number]) 07115 EST. PATIENT, LEVEL IV Diagnosis: Benign paroxysmal vertigo, bilateral[ICD10: H81.13] Diagnosis: Other allergic rhinitis[ICD10: J30.89] Diagnosis: Hypothyroidism, unspecified[ICD10: E03.9] Shiela Cortez MD, [facility] CPT-4: 62217 12/08/2016 ([id number]) 37841 EST. PATIENT, LEVEL IV Diagnosis: Atrophy of thyroid (acquired)[ICD10: E03.4] Diagnosis: Essential (primary) hypertension[ICD10: I10] Diagnosis: Mixed hyperlipidemia[ICD10: E78.2] Elen Cortez MD, [facility] CPT-4: 35833 11/30/2016 25010 EST. PATIENT, LEVEL IV Diagnosis: Headache[ICD10: R51] Diagnosis: Other fatigue[ICD10: R53.83] Diagnosis: Dizziness and giddiness[ICD10: R42] Bridget Cortez MD, [facility] CPT-4: 61039 09/28/2016 04105 EST. PATIENT, LEVEL IV Diagnosis: Essential (primary) hypertension[ICD10: I10] Diagnosis: Headache[ICD10: R51] Bridget Cortez MD, [facility] CPT-4: 47190 07/06/2016 ([id number]) 38961 EST. PATIENT, LEVEL IV Diagnosis: Essential (primary) hypertension[ICD10: I10] Diagnosis: Atrophy of thyroid (acquired)[ICD10: E03.4] Diagnosis: Mixed hyperlipidemia[ICD10: E78.2] Elen Cotrez MD, [facility] CPT-4: 25197 06/01/2016 74917 EST. PATIENT, LEVEL IV Diagnosis: Acute laryngopharyngitis[ICD10: J06.0] Diagnosis: Other allergic rhinitis[ICD10: J30.89] Diagnosis: Other specified hypothyroidism[ICD10: E03.8] Diagnosis: Other fatigue[ICD10: R53.83] [facility] CPT-4 : 39089 02/27/2016 ([id number]) 07437 EST. PATIENT, LEVEL III Diagnosis: Essential (primary) hypertension[ICD10: I10] Diagnosis: Mixed hyperlipidemia[ICD10: E78.2] Elen Cortez MD, [facility] CPT-4: 26802 09/10/2015 ([id number]) 52457 EST. PATIENT, LEVEL IV Diagnosis: Essential (primary) hypertension[ICD10: I10] Diagnosis: Hypothyroidism, unspecified[ICD10: E03.9] Diagnosis: Unspecified osteoarthritis, unspecified site[ICD10: M19.90] Elen Cortez MD , [facility] CPT-4: 11936 05/14/2015 ([id number]) OFFICE VISIT, NEW - LEVEL 4 Diagnosis: Essential (primary) hypertension[ICD10: I10] Diagnosis: Hypothyroidism, unspecified[ICD10: E03.9] Diagnosis: Unspecified osteoarthritis, unspecified site[ICD10: M19.90] Elen Cortez MD , [facility] CPT-4: 21400 02/11/2015 Plan of Care Planned Activity Notes Codes Status Date Patient Education: Patient Medication Summary Completed 04/04/2018 Patient Education: Patient Medication Summary Completed 04/04/2018 Care Plan: Free T4 Pending 04/04/2018 Care Plan: Tsh Pending 04/04/2018 Visit Plan: Dysuria, dizziness, fatigue, [...] improvement. 04/01/2018 Appointment: Bridget Velazco WPtel: [phone] [facility] (15 min) Moderate 04/01/2018 Patient Education: Patient Medication Summary Completed 04/01/2018 Visit Plan: Sinusitis - Pt has acute infection - pain in face, maxillary region, Pt informed to use decongestant, RX given to patient, sinus rinses also recommended. Call if symptoms do not show improvement. Dysuria - rx for antibiotic sent to pharmacy. 03/24/2018 Appointment: Elen Cortez WPtel: [phone] [facility] (15 min) Moderate 03/24/2018 Patient Education: Patient [...] not improve. 03/01/2018 Appointment: Elen Cortez WPtel: [phone] [facility] [place] (15 min) Moderate 03/01/2018 Patient Education: [...] allergy spray. 12/24/2017 Appointment: Bridget Velazco WPtel: [facility] - Annual Wellness Visit 12/24/2017 Patient Education: Patient Medication Summary Completed 12/24/2017 Appointment: Bridget Velazco WPtel: [address] [place] [address] (15 min) Moderate 11/30/2017 Appointment: Lab Draw [...] improve. 11/18/2017 Appointment: Bridget Velazco WPtel: [address] [place] [address] (15 min) Moderate 11/18/2017 Patient Education: Patient Medication Summary Completed 11/18/2017 Visit Plan: Sinusitis - Pt has acute infection - pain in face, maxillary region, Pt informed to use decongestant, RX given to patient, sinus rinses also recommended. Call if symptoms do not show improvement. 11/03/2017 Appointment: Bridget Velazco WPtel: [facility] (15 min) Moderate 11/03/2017 Patient [...] not improve. 09/22/2017 Appointment: Bridget Velazco WPtel: [facility]1 [facility]66[facility] (15 min) Moderate 09/22/2017 Patient Education: Patient Medication Summary Completed 09/22/2017 Visit Plan: Bronchitis - acute case of bronchitis identified. Pt has been given antibiotics, breathing treatments as appropriate, and pt has been instructed to call if symptoms are not improved, or if symptoms acutely worsen. 04/01/2017 Appointment: Elen Cortez WPtel: [facility] (15 min) Moderate 04/01/2017 Patient Education: Patient [...] allergy spray. 03/25/2017 Appointment: Shiela Srivastava WPtel: [facility]1 [phone] [place] (10 min) Simple 03/25/2017 Appointment: Elen Cortez WPtel: [facility]1 [facility] [place] (15 min) Moderate 03/25/2017 Patient Education: [...] care surrogate. 12/23/2016 Appointment: Bridget Velazco WPtel: [phone] [facility] [facility] - Annual Wellness Visit 12/23/2016 Patient Education: Patient Medication Summary Completed 12/23/2016 Visit Plan: Vertigo-discussed PT for vestibular exercises- patient wants to wait since symptoms are improving-continue anti histamine as directed-meclizine as needed 12/22/2016 Appointment: [phone] (30 min) Complex 12/22/2016 Patient [...] control. 12/08/2016 Appointment: Sh[facility] Srivastava [facility]el[phone] [place] (30 min) Complex 12/08/2016 Patient Education: [...] to medications. 11/30/2016 Appointment: Elen Cortez WPtel: [facility] [place] (15 min) Moderate 11/30/2016 Patient Education: [...] or concerns. 09/28/2016 Appointment: Bridget Velazco WPtel: [facility] [place] (30 min) Complex 09/28/2016 Patient Education: Patient [...] concerns. 07/06/2016 Appointment: Br[facility] Velazco [facility]el[phone] (15 min) Moderate 07/06/2016 Patient Education: Patient [...] Appointment: El[facility] Cortez [facility]Ptel[phone] [place] (15 min) Moderate 06/01/2016 Patient Education: Patient [...] - will check labs 02/27/2016 Appointment: Bridget Velazcotel: [facility] (30 min) [facility] 02/27/2016 Patient Education: Patient Medication Summary Completed 02/27/2016 Patient Education: Patient Medication Summary Completed 09/27/2015 Care Plan: SCREENINGMAMMOGRAPHYDIGITAL LOINC : 45485-0 Pending 09/27/2015 Visit Plan: Hypertension - well [...] colonoscopy 09/10/2015 Appointment: Elen Cortez [facility]Ptel: [phone] [place] (15 min) Moderate 09/10/2015 Patient Education: Patient [...] Sanchez. 05/14/2015 Appointment: [facility] Cortez [facility]Ptel[phone] [place] (15 min) Moderate 05/14/2015 Patient Education: Patient Medication Summary Completed 05/14/2015 Patient Education: Hypertension Completed 05/14/2015 Care Plan: Referral Order SNOMED-CT : [id number] Ordered 05/14/2015 Patient Education: Patient Medication Summary Completed 03/01/2015 Appointment: Nurse Visit 02/28/2015 Patient Education: Patient Medication Summary Completed 02/28/2015 Patient Education: Patient Medication Summary Completed 02/27/2015 Appointment: Nurse Visit 02/26/2015 Patient Education: Patient Medication Summary Completed 02/26/2015 Appointment: Injection 02/25/2015 Patient Education: Patient Medication Summary Completed 02/25/2015 Patient Education: Patient Medication Summary Completed 02/21/2015 Care Plan: URINALYSIS NONAUTO W/O SCOPE INC : 40495-6 Ordered 02/21/2015 Visit Plan: Hypertension - well [...] pain symptoms. 02/11/2015 Appointment: Elen Cortez [facility]Ptel: [phone] [place] [place] New Patient 02/11/2015 Patient Education: Patient [...]
--- OUTSIDE RECORDS SUMMARY | 2018-06-01 13:08 | XMS REPORT | CCD ---
Author Author [facility] Organization [facility] Address [address] [place] [address] Phone Care Team Providers Care Wardrobe Manager Name Role Phone PP Unavailable CCM Unavailable Summary Purpose Interface Exchange Insurance Providers Payer name Policy type / Coverage type Covered democrat ID Effective Begin Date Effective End Date WPS Medicare Part B Medicare Part B [id number] Unknown [place] [employer] Insurance Medicare Part B [id number] Unknown Family history Mother Diagnosis Age At [...] spouses - 02/11/[address]: [id number] Never smoker 02/11/2015 Alcohol history Unknown occasionally drinks alcohol 02/11/2015 Allergies, Adverse Reactions, Alerts Substance Reaction Codes Entered Date Inactivated Date Status CODEINE RxNorm: 2670 02/11/2015 No Inactive Date Active allergy Unknown 12/23/2016 No Inactive Date Active ciprofloxacin rash, RxNorm: 22503 02/26/2015 No Inactive Date Active hydrocodone Unknown 02/11/2015 No Inactive Date Active PREDNISONE RxNorm: 8640 03/29/2018 No Inactive Date Active GABAPENTIN Unknown 12/23/2016 No Inactive Date Active SULFA (SULFONAMIDES) Unknown 02/11/2015 No Inactive Date Active Past Medical History Illness Codes Condition Status Onset Date Resolved Date Hypothyroidism, unspecified ICD-9: 244.9 ICD-10: E03.9 Active 02/26/2016 Unknown Acute laryngopharyngitis ICD-9: 465.0 ICD-10: J06.0 Active 02/26/2016 Unknown Candidal stomatitis ICD-9: 112.0 ICD-10: B37.0 Active 04/01/2018 Unknown Dizziness and giddiness ICD-9: 780.4 ICD-10: R42 Active 09/28/2016 Unknown Dysuria ICD-9: 788.1 ICD-10: R30.0 Active [...] Problems Condition Codes Effective Dates Condition Status Hypothyroidism, unspecified ICD-9: 244.9 ICD-10: E03.9 02/26/2016 Active Acute laryngopharyngitis ICD-9: 465.0 ICD-10: J06.0 02/26/2016 Active Candidal stomatitis ICD-9: 112.0 ICD-10: B37.0 04/01/2018 Active Dizziness and giddiness ICD-9: 780.4 ICD-10: R42 09/28/2016 Active Dysuria ICD-9: 788.1 ICD-10: R30.0 02/20/2015 [...] Stop Date Status Fill Instructions nystatin 100,000 unit/mL oral suspension RxNorm: 770155 4 Milliliter(s) PO QID 04/01/2018 04/05/2018 Active doxycycline hyclate 100 mg tablet RxNorm: 1564475 1 Tablet(s) PO BID 04/01/2018 04/10/2018 Active prednisone 10 mg tablet RxNorm: 982006 1 Tablet(s) PO UD 6 pills on day 1 and 2 and then decrease by one pill every other day until prescription is done 03/24/2018 No Stop Date Active amoxicillin 500 mg capsule RxNorm: 375524 1 Capsule(s) PO TID 03/24/2018 04/02/2018 Inactive metoprolol succinate ER 50 mg tablet,extended release 24 hr RxNorm: 856514 Tablet (s) TAKE 1 TABLET BY MOUTH DAILY 03/21/2018 10/16/2018 Active PLEASE SEND REFILL REQUESTS ELECTRONICALLY!! Synthroid 88 mcg tablet RxNorm: 585087 TAKE 1 TABLET BY MOUTH DAILY 03/08/2018 08/04/2018 Active 03/07/2018 11:21:21 AM pravastatin 80 mg tablet RxNorm: 230720 Tablet(s) 1 Tablet(s) PO daily 03/01/2018 02/23/2019 Active Kenalog 40 mg/mL suspension for injection RxNorm: 0726334 Milliliter(s) Inj 12/24/2017 12/24/2017 Inactive cetirizine 10 mg tablet RxNorm: 2178015 TAKE 1 TABLET BY MOUTH DAILY 12/21/2017 07/18/2018 Active Generic For:*ZYRTEC 10 MG TABLET 12/21/2017 10:08:05 AM Synthroid 88 mcg tablet RxNorm: 235960 TAKE 1 TABLET BY MOUTH DAILY 12/07/2017 03/06/2018 Inactive 12/06/2017 11:46:49 AM Lipitor 80 mg tablet RxNorm: 380105 1 Tablet(s) PO daily 201702/28/2018 Inactive pravastatin 80 mg tablet RxNorm: 323352 1 Tablet(s) PO daily 11/29/2017 Inactive Lipitor 80 mg tablet RxNorm: 796659 1 Tablet(s) PO daily 201711/28/2017 Inactive lisinopril 20 mg tablet RxNorm: 318677 TAKE 1 TABLET BY MOUTH TWICE DAILY 11/23/2017 04/21/2018 Active Generic For:*PRINIVIL 20 MG TABLET 11/23/2017 11:29:44 AM Macrobid 100 mg capsule RxNorm: 439662 1 Capsule(s) PO BID 06/201711/25/2017 Inactive Macrobid 100 mg capsule RxNorm: 439596 1 Capsule(s) PO BID 06/201711/18/2017 Inactive Lomotil 2.5 mg-0.025 mg tablet RxNorm: 8999631 1 -2 Tablet(s) PO TID as needed 11/19/2017 11/25/2017 Inactive Lomotil 2.5 mg-0.025 mg tablet RxNorm: 8394388 1 -2 Tablet(s) PO TID as needed 11/19/2017 11/18/2017 Inactive Pyridium 200 mg tablet RxNorm: 3281217 1 Tablet(s) PO TID as needed 11/18/2017 11/22/2017 Inactive Augmentin 500 mg-125 mg tablet RxNorm: 321814 1 Tablet(s) PO TID 11/18/2017 11/27/2017 Inactive Keflex 500 mg capsule RxNorm: 211374 1 Capsule(s) PO TID 201711/09/2017 Inactive Denavir 1 % topical cream RxNorm: 207007 1 TOP TID as needed cold sores 11/01/2017 01/29/2018 Inactive Denavir 1 % topical cream RxNorm: 585062 1 TOP TID as needed cold sores 11/01/2017 10/31/2017 Inactive Synthroid 88 mcg tablet RxNorm: 542494 TAKE 1 TABLET BY MOUTH DAILY 09/29/2017 11/27/2017 Inactive 09/29/2017 12:58:07 PM pravastatin 80 mg tablet RxNorm: 170914 1 Tablet(s) PO daily 08/30/2017 Inactive pravastatin 80 mg tablet RxNorm: 392573 1 Tablet(s) PO daily 11/28/2017 Inactive Synthroid 88 mcg tablet RxNorm: 157889 TAKE 1 TABLET BY MOUTH DAILY 08/30/2017 09/28/2017 Inactive 08/30/2017 10:53:26 AM metoprolol succinate ER 50 mg tablet,extended release 24 hr RxNorm: 076528 Tablet (s) TAKE 1 TABLET BY MOUTH DAILY 08/17/2017 03/14/2018 Inactive PLEASE SEND REFILL REQUESTS ELECTRONICALLY!! lisinopril 20 mg tablet RxNorm: 752887 TAKE 1 TABLET BY MOUTH TWICE DAILY 06/18/2017 11/14/2017 Inactive Generic For:*PRINIVIL 20 MG TABLET 06/18/2017 1:31: 00 PM Synthroid 88 mcg tablet RxNorm: 439328 TAKE 1 TABLET BY MOUTH DAILY 05/24/2017 08/21/2017 Inactive 05/24/2017 2:13:21 PM cetirizine 10 mg tablet RxNorm: 2267517 1 Tablet(s) PO daily 12/12/2017 Inactive Zithromax Z-Russell 250 mg capsule RxNorm: 713339 1 Capsule(s) PO 04/02/2017 04/05/2017 Inactive Zithromax Z-Russell 250 mg tablet RxNorm: 894489 1 Tablet(s) PO 04/01/2017 Inactive Zithromax Z-Russell 250 mg capsule RxNorm: 026884 1 Capsule(s) PO 04/02/2017 04/01/2017 Inactive Zithromax Z-Russell 250 mg tablet RxNorm: 378333 1 Tablet(s) PO 04/06/2017 Inactive Ventolin HFA 90 mcg/actuation aerosol inhaler RxNorm: 099942 2 INH QID as needed - for the first 3 days inhale at least two puffs three times daily, then use as needed for shortness of breath 04/01/2017 04/30/2017 Inactive Keflex 500 mg capsule RxNorm: 020933 1 Capsule(s) PO TID 201604/01/2017 Inactive meclizine 25 mg tablet RxNorm: 420362 1 Tablet(s) PO Q6 PRN 1 Tablet(s) PO Q6 PRN 03/25/2017 No Stop Date Active dizziness meclizine 25 mg tablet RxNorm: 704038 Tablet(s) 1 Tablet(s) PO Q6 PRN 03/25/2017 03/24/2017 Inactive dizziness Kenalog 40 mg/mL suspension for injection RxNorm: 3221680 1 Milliliter(s) Inj 03/25/2017 03/25/2017 Inactive meclizine 25 mg tablet RxNorm: 656970 1 Tablet(s) PO Q6 PRN 03/24/2017 Inactive dizziness lisinopril 20 mg tablet RxNorm: 349567 1 Tablet(s) PO BID 01/1506/13/2017 Inactive metoprolol succinate ER 50 mg tablet,extended release 24 hr RxNorm: 261273 TAKE 1 TABLET BY MOUTH DAILY 01/07/20172017 Inactive Generic For:TOPROL XL 50MG TAB 01/07/2017 12:38:23 PM Synthroid 88 mcg tablet RxNorm: 512097 TAKE 1 TABLET BY MOUTH DAILY 12/25/2016 05/23/2017 Inactive 12/25/2016 9:47:08 AM Zithromax Z-Russell 250 mg tablet RxNorm: 475680 Tablet(s) PO UD 03/24/2017 Inactive meclizine 25 mg tablet RxNorm: 349609 1 Tablet(s) PO Q6 PRN 12/20/2016 Inactive dizziness Kenalog 40 mg/mL suspension for injection RxNorm: 5036623 Milliliter(s) Inj 12/08/2016 12/08/2016 Inactive meloxicam 15 mg tablet RxNorm: 260333 1 Tablet(s) PO daily 12/20/2016 Inactive cetirizine 10 mg tablet RxNorm: 0329177 1 Tablet(s) PO daily 05/16/2017 Inactive pravastatin 40 mg tablet RxNorm: 224951 1 Tablet(s) PO BID 07/201608/30/2017 Inactive Cancel 80 mg tab lisinopril 20 mg tablet RxNorm: 247679 1 Tablet(s) PO BID 08/1212/22/2016 Inactive Synthroid 88 mcg tablet RxNorm: 560007 1 Tablet(s) PO TAKE ONE (1) TABLET BY MOUTH DAILY 07/28/2016 12/24/2016 Inactive decrease dose hydralazine 25 mg tablet RxNorm: 607903 1 Tablet(s) PO TID as needed for Systolic blood pressure over 170 07/06/20162016 Inactive lisinopril 20 mg tablet RxNorm: 496420 1 Tablet(s) PO BID to replace your other lisinopril dose 07/06/2016 08/04/2016 Inactive lisinopril 10 mg tablet RxNorm: 210769 TAKE ONE TABLET BY MOUTH TWICE DAILY 06/10/2016 08/11/2016 Inactive Generic For:ZESTRIL 10 MG TABLET 06/09/2016 12:58: 50 PM triamcinolone acetonide 0.1 % topical cream RxNorm: 9767300 1 Application TOP TID as needed 06/01/2016 No Stop Date Active nystatin 100,000 unit/gram topical cream RxNorm: 871684 1 Gram(s) TOP TID as needed 06/01/2016 No Stop Date Active metoprolol succinate ER 50 mg tablet,extended release 24 hr RxNorm: 132399 1 Tablet(s) PO daily 05/26/2016 12/21/2016 Inactive cetirizine 10 mg tablet RxNorm: 2715104 1 Tablet(s) PO daily 10/18/2016 Inactive Synthroid 88 mcg tablet RxNorm: 815222 1 Tablet(s) PO TAKE ONE (1) TABLET BY MOUTH DAILY 03/06/2016 03/07/2018 Inactive Brand name only! Synthroid 88 mcg tablet RxNorm: 123788 1 Tablet(s) PO TAKE ONE (1) TABLET BY MOUTH DAILY 03/04/2016 03/05/2016 Inactive decrease dose cetirizine 10 mg tablet RxNorm: 0142297 1 Tablet(s) PO daily 03/22/2016 Inactive amoxicillin 500 mg capsule RxNorm: 447922 1 Capsule(s) PO TID 02/27/2016 03/04/2016 Inactive lisinopril 10 mg tablet RxNorm: 871008 TAKE ONE TABLET BY MOUTH TWICE DAILY 02/06/2016 06/04/2016 Inactive Generic For:ZESTRIL 10 MG TABLET 02/06/2016 12:16: 38 PM Synthroid 100 mcg tablet RxNorm: 213773 TAKE ONE (1) TABLET BY MOUTH DAILY 01/03/2016 03/03/2016 Inactive 01/03/2016 10:35:14 AM N O T I C E Last quantity doesn't match original quantity lisinopril 10 mg tablet RxNorm: 436411 1 Tablet(s) PO BID 10/0301/31/2016 Inactive Synthroid 100 mcg tablet RxNorm: 521732 1 Tablet(s) PO daily 01/02/2016 Inactive metoprolol succinate ER 50 mg tablet,extended release 24 hr RxNorm: 577739 1 Tablet(s) PO daily 10/04/2015 04/30/2016 Inactive Tylenol Arthritis 650 mg tablet,extended release RxNorm: 1611104 2 Tablet(s) PO TID 09/10/2015 No Stop Date Active metoprolol succinate ER 50 mg tablet,extended release 24 hr RxNorm: 536350 1 Tablet(s) PO daily 09/05/2015 10/03/2015 Inactive pravastatin 80 mg tablet RxNorm: 570406 1 Tablet(s) PO QHS 08/30/2015 Inactive pravastatin 40 mg tablet RxNorm: 659463 1 Tablet(s) PO BID 08/29/2015 Inactive Cancel 80 mg tab pravastatin 40 mg tablet RxNorm: 380824 1 Tablet(s) PO BID 08/19/2016 Inactive Cancel 80 mg tab lisinopril 10 mg tablet RxNorm: 912981 1 Tablet(s) PO BID 06/1308/11/2016 Inactive lisinopril 10 mg tablet RxNorm: 837571 1 Tablet(s) PO BID 06/1310/03/2015 Inactive Synthroid 100 mcg tablet RxNorm: 639656 1 Tablet(s) PO daily 10/03/2015 Inactive ceftriaxone 1 gram solution for injection RxNorm: 0352859 Inj 03/01/2015 03/01/2015 Inactive ceftriaxone 1 gram solution for injection RxNorm: 7002147 Inj 02/28/2015 02/28/2015 Inactive ceftriaxone 1 gram solution for injection RxNorm: 5886773 Inj 02/27/2015 02/27/2015 Inactive ceftriaxone 1 gram solution for injection RxNorm: 7403333 Inj 02/26/2015 02/26/2015 Inactive ceftriaxone 1 gram solution for injection RxNorm: 5370568 Inj 02/25/2015 02/25/2015 Inactive phenazopyridine 200 mg tablet RxNorm: 4196649 1 Tablet(s) PO Q8 02/21/2015 02/20/2015 Inactive Cipro 500 mg tablet RxNorm: 766979 1 Tablet(s) PO BID 201402/20/2015 Inactive phenazopyridine 200 mg tablet RxNorm: 8698851 1 Tablet(s) PO Q8 02/21/2015 02/25/2015 Inactive Cipro 500 mg tablet RxNorm: 027296 1 Tablet(s) PO BID 201402/27/2015 Inactive lisinopril 10 mg tablet RxNorm: 697114 1 Tablet(s) PO BID 02/1406/12/2015 Inactive metoprolol succinate ER 50 mg tablet,extended release 24 hr RxNorm: 434522 3/4 Tablet(s) PO daily 02/11/2015 09/04/2015 Inactive Voltaren 1 % topical gel RxNorm: 590867 2 Gram(s) TOP QID use this on affected joints up to four times daily. 02/11/2015 03/12/2015 Inactive Probiotic oral RxNorm : 6205 oral No Start Date Active aspirin 81 mg tablet RxNorm: 651351 1 Tablet(s) PO daily No Start Date Active Super B-Complex tablet RxNorm: 1 Tablet(s) PO No Start Date Active Flonase Allergy Relief 50 mcg/actuation nasal spray, suspension RxNorm: 8892940 1 [place] NASAL BID No Start Date Active Super-D3+ oral RxNorm : oral No Start Date Active Prilosec OTC 20 mg tablet,delayed release RxNorm: 016856 2 Tablet(s) PO QAM No Start Date Active Flonase Allergy Relief 50 mcg/actuation nasal spray, suspension RxNorm: 7448745 1 [place] NASAL as needed No Start Date Active Move Free Ultra 40 mg-10 mg-3.3 mg tablet RxNorm: 1 Tablet(s) PO daily No Start Date Active metoprolol tartrate 50 mg tablet RxNorm: 338880 1 Tablet(s) PO daily No Start Date 02/10/2015 Inactive lisinopril 10 mg tablet RxNorm: 838863 1 Tablet(s) PO BID No Start Date 02/13/2015 Inactive pravastatin 80 mg tablet RxNorm: 751029 1 Tablet(s) PO daily No Start Date 08/29/2015 Inactive Synthroid 100 mcg tablet RxNorm: 047911 1 Tablet(s) PO daily No Start Date 06/09/2015 Inactive lisinopril 40 mg tablet RxNorm: 122670 1 Tablet(s) PO BID No Start Date 02/28/2018 Inactive Tylenol Arthritis 650 mg tablet,extended release RxNorm: 9387837 4 Tablet(s) PO daily No Start Date 09/09/2015 Inactive Medication Administered Medication Codes Instructions Start Date Status Kenalog 40 mg/mL suspension for injection RxNorm: 4595697 Milliliter 12/24/2017 No longer Active Kenalog 40 mg/mL suspension for injection RxNorm: 0935812 1Milliliter 03/25/2017 No longer Active Kenalog 40 mg/mL suspension for injection RxNorm: 2595769 Milliliter 12/08/2016 No longer Active ceftriaxone 1 gram solution for injection RxNorm: 3212844 03/01/2015 No longer Active ceftriaxone 1 gram solution for injection RxNorm: 1264824 02/28/2015 No longer Active ceftriaxone 1 gram solution for injection RxNorm: 8486623 02/27/2015 No longer Active ceftriaxone 1 gram solution for injection RxNorm: 2865606 02/26/2015 No longer Active ceftriaxone 1 gram solution for injection RxNorm: 6963650 02/25/2015 No longer Active Immunizations Vaccine Codes Date Status Influenza CVX: 141 01/18/2018 completed Influenza CVX: 141 03/15/2017 completed Influenza CVX: 141 03/18/2016 completed Influenza CVX: 141 02/11/2015 completed Assessments Condition Codes Effective Dates Hypothyroidism, unspecified ICD-10: E03.9 ICD-9: 244.9 04/04/2018 Dizziness and giddiness ICD-10: R42 ICD-9: 780.4 04/01/2018 Essential (primary) hypertension ICD-10: I10 ICD-9: 401.1 04/01/2018 Candidal stomatitis ICD-10: B37.0 ICD-9: 112.0 04/01/2018 Other acute sinusitis ICD-10: J01.80 ICD-9: 461.8 04/01/2018 Other fatigue ICD-10: R53.83 ICD-9: 780.79 04/01/2018 Other malaise ICD-10: R53.81 ICD-9: 780.79 04/01/2018 Dysuria ICD-10: R30.0 ICD-9: 788.1 04/01/2018 Unspecified mycosis ICD-10: B49 ICD-9: 117.9 [...] growth sent to ref lab 11/19/2017 B12 Exw013 B12 712.00 pg/ml 09/28/2017 C-Reactive Protein Qnt Crqnt CRP 0.1 mg/dl 09/23/2017 Comp Metabolic Vje429 NA 139 mEq/L 09/23/2017 Comp Metabolic Jsk516 K 4.8 mEq/L 09/23/2017 Comp Metabolic Lqv953 CL 104 mEq/L 09/23/2017 Comp Metabolic Dnc568 CO2 28.0 mEq/L 09/23/2017 Comp Metabolic Skl927 ANION GAP 12 09/23/2017 Comp Metabolic Lrn413 GLUCOSE 92 mg/dL 09/23/2017 Comp Metabolic Oqj817 Creat 0.7 mg/dL 09/23/2017 Comp Metabolic Nia207 eGFR 91 ml/min/1.73m2 09/23/2017 Comp Metabolic Kol746 BUN 11 mg/dL 09/23/2017 Comp Metabolic Ysp186 B/C Ratio 16.4 Ratio 09/23/2017 Comp Metabolic Bfn316 CALCIUM 9.0 mg/dL 09/23/2017 Comp Metabolic Iyr525 ALK PHOS 76 U/L 09/23/2017 Comp Metabolic Iyn285 AST(SGOT) 24 U/L 09/23/2017 Comp Metabolic Hzd496 ALT(SGPT) 21 U/L 09/23/2017 Comp Metabolic Zaf497 BILI T 0.3 mg/dL 09/23/2017 Comp Metabolic Mdk669 ALBUMIN 4.1 g/dL 09/23/2017 Comp Metabolic Rvi084 TPRO 6.2 g/dL 09/23/2017 Comp Metabolic Jvi794 GLOB 2.1 g/dL 09/23/2017 Comp Metabolic Qlj543 A/G Ratio 1.9 Ratio 09/23/2017 Comp Metabolic Cfm861 Osmo 277 mOsmo 09/23/2017 Sed Rate Ord21 ESR 3 mm/hr 09/22/2017 Vitamin D 25 Oh Thg7716 VITAMIN D, 25 HYDROXY 78.79 ng/mL Tsh [...] 97.1 fl 09/22/2017 Cbc With Differential Ord2 [place]% 10.5 % 09/22/2017 Cbc With Differential Ord2 [...] 2.37 K/ul 09/22/2017 Cbc With Differential Ord2 [place] ABS# 0.9 K/ul 09/22/2017 Cbc With Differential Ord2 Eos ABS# 0.2 K/ul 09/22/2017 Cbc With Differential Ord2 Baso ABS# 0.0 K/ul 09/22/2017 Free T4 Hjx684 FREE T4 0.99 ng/dL 09/22/2017 %Hba1C Ipx756 % HbA1c 69482-2 6.0 % 12/10/2016 %Hba1C Doo271 Gluc Ave 126 mg/dL 12/10/2016 Tsh Ord6 hTSH II 0.89 uIU/mL 12/09/2016 Free T4 Kby235 FREE T4 0.99 ng/dL 12/09/2016 Comp Metabolic Nug443 NA 138 mEq/L 12/09/2016 Comp Metabolic Mpk710 K 5.2 mEq/L 12/09/2016 Comp Metabolic Qyo541 CL 104 mEq/L 12/09/2016 Comp Metabolic Jei972 CO2 29.0 mEq/L 12/09/2016 Comp Metabolic Lmz984 ANION GAP 10 12/09/2016 Comp Metabolic Nrd037 GLUCOSE 135 mg/dL 12/09/2016 Comp Metabolic Mru889 Creat 0.8 mg/dL 12/09/2016 Comp Metabolic Qnr859 eGFR 79 ml/min/1.73m2 12/09/2016 Comp Metabolic Xjw378 BUN 18 mg/dL 12/09/2016 Comp Metabolic Uyi836 B/C Ratio 23.7 Ratio 12/09/2016 Comp Metabolic Cth375 CALCIUM 9.5 mg/dL 12/09/2016 Comp Metabolic Fgu918 ALK PHOS 73 U/L 12/09/2016 Comp Metabolic Yld841 AST(SGOT) 24 U/L 12/09/2016 Comp Metabolic Vrf047 ALT(SGPT) 20 U/L 12/09/2016 Comp Metabolic Fij712 BILI T 0.3 mg/dL 12/09/2016 Comp Metabolic Ies261 ALBUMIN 4.3 g/dL 12/09/2016 Comp Metabolic Dnm453 TPRO 6.4 g/dL 12/09/2016 Comp Metabolic Fak330 GLOB 2.1 g/dL 12/09/2016 Comp Metabolic Jee253 A/G Ratio 2.0 Ratio 12/09/2016 Comp Metabolic Svm610 Osmo 280 mOsmo 12/09/2016 Cbc With Differential [...] 31.3 pg 12/09/2016 Cbc With Differential Ord2 [place]% 6.5 % 12/09/2016 Cbc With Differential Ord2 [...] 1.84 K/ul 12/09/2016 Cbc With Differential Ord2 [place] ABS# 0.6 K/ul 12/09/2016 Cbc With Differential Ord2 Eos ABS# 0.1 K/ul 12/09/2016 Cbc With Differential Ord2 Baso ABS# 0.1 K/ul 12/09/2016 Tsh Ord6 hTSH II 1.19 uIU/mL 09/02/2016 Free T4 Oag531 FREE T4 0.97 ng/dL 09/02/2016 Comp Metabolic Xsi020 NA 137 mEq/L 06/01/2016 Comp Metabolic Mxw729 K 4.1 mEq/L 06/01/2016 Comp Metabolic Gak247 CL 104 mEq/L 06/01/2016 Comp Metabolic Mmj794 CO2 25.0 mEq/L 06/01/2016 Comp Metabolic Kqb633 ANION GAP 12 06/01/2016 Comp Metabolic Czf352 GLUCOSE 108 mg/dL 06/01/2016 Comp Metabolic Kqb099 Creat 0.8 mg/dL 06/01/2016 Comp Metabolic Hal032 eGFR 80 ml/min/1.73m2 06/01/2016 Comp Metabolic Run587 BUN 15 mg/dL 06/01/2016 Comp Metabolic Nql566 B/C Ratio 20.0 Ratio 06/01/2016 Comp Metabolic Mal604 CALCIUM 9.1 mg/dL 06/01/2016 Comp Metabolic Lds424 ALK PHOS 89 U/L 06/01/2016 Comp Metabolic Shw136 AST(SGOT) 25 U/L 06/01/2016 Comp Metabolic Tqh627 ALT(SGPT) 20 U/L 06/01/2016 Comp Metabolic Xik340 BILI T 0.3 mg/dL 06/01/2016 Comp Metabolic Poq706 ALBUMIN 4.2 g/dL 06/01/2016 Comp Metabolic Jzf384 TPRO 6.2 g/dL 06/01/2016 Comp Metabolic Yns678 GLOB 2.0 g/dL 06/01/2016 Comp Metabolic Gly074 A/G Ratio 2.1 Ratio 06/01/2016 Comp Metabolic Azv943 Osmo 275 mOsmo 06/01/2016 Free T4 Wkp424 FREE T4 0.94 ng/dL 06/01/2016 Tsh Ord6 [...] 31.1 pg 06/01/2016 Cbc With Differential Ord2 [place]% 8.4 % 06/01/2016 Cbc With Differential Ord2 [...] 2.96 K/ul 06/01/2016 Cbc With Differential Ord2 [place] ABS# 0.6 K/ul 06/01/2016 Cbc With Differential [...] 31.3 pg 02/27/2016 Cbc With Differential Ord2 [place]% 10.0 % 02/27/2016 Cbc With Differential Ord2 [...] 2.28 K/ul 02/27/2016 Cbc With Differential Ord2 [place] ABS# 0.9 K/ul 02/27/2016 Cbc With Differential Ord2 Eos ABS# 0.3 K/ul 02/27/2016 Cbc With Differential Ord2 Baso ABS# 0.1 K/ul 02/27/2016 Tsh Ord6 hTSH II 0.18 uIU/mL 02/27/2016 Free T4 Zli255 FREE T4 1.17 ng/dL 02/27/2016 Comp Metabolic Ncg897 NA 135 mEq/L 02/27/2016 Comp Metabolic Ipn022 K 5.2 mEq/L 02/27/2016 Comp Metabolic Zhz912 CL 102 mEq/L 02/27/2016 Comp Metabolic Nto387 CO2 27.0 mEq/L 02/27/2016 Comp Metabolic Fxy669 ANION GAP 11 02/27/2016 Comp Metabolic Utw499 GLUCOSE 93 mg/dL 02/27/2016 Comp Metabolic Qze057 Creat 0.7 mg/dL 02/27/2016 Comp Metabolic Kyr400 eGFR 91 ml/min/1.73m2 02/27/2016 Comp Metabolic Unc028 BUN 14 mg/dL 02/27/2016 Comp Metabolic Cfc317 B/C Ratio 20.9 Ratio 02/27/2016 Comp Metabolic Drd868 CALCIUM 9.4 mg/dL 02/27/2016 Comp Metabolic Rec662 ALK PHOS 100 U/L 02/27/2016 Comp Metabolic Mev805 AST(SGOT) 23 U/L 02/27/2016 Comp Metabolic Htq071 ALT(SGPT) 24 U/L 02/27/2016 Comp Metabolic Cvy572 BILI T 0.2 mg/dL 02/27/2016 Comp Metabolic Mpn052 ALBUMIN 4.3 g/dL 02/27/2016 Comp Metabolic Xpl478 TPRO 6.3 g/dL 02/27/2016 Comp Metabolic Esy056 GLOB 2.1 g/dL 02/27/2016 Comp Metabolic Nhq059 A/G Ratio 2.1 Ratio 02/27/2016 Comp Metabolic Qku429 Osmo 270 mOsmo 02/27/2016 Free T4 Rdc706 FREE T4 1.03 ng/dL 05/10/2015 Comp Metabolic Jae590 NA 137 mEq/L 05/10/2015 Comp Metabolic Feg561 K 4.4 mEq/L 05/10/2015 Comp Metabolic Hhi764 CL 102 mEq/L 05/10/2015 Comp Metabolic Hfo565 CO2 28.0 mEq/L 05/10/2015 Comp Metabolic Mae793 ANION GAP 11 05/10/2015 Comp Metabolic Wwf760 GLUCOSE 108 mg/dL 05/10/2015 Comp Metabolic Isl304 Creat 0.7 mg/dL 05/10/2015 Comp Metabolic Nba271 eGFR 86 ml/min/1.73m2 05/10/2015 Comp Metabolic Apr196 BUN 13 mg/dL 05/10/2015 Comp Metabolic Lob634 B/C Ratio 18.3 Ratio 05/10/2015 Comp Metabolic Wgw779 CALCIUM 9.4 mg/dL 05/10/2015 Comp Metabolic Xjb575 ALK PHOS 94 U/L 05/10/2015 Comp Metabolic Ubx599 AST(SGOT) 22 U/L 05/10/2015 Comp Metabolic Lcc397 ALT(SGPT) 21 U/L 05/10/2015 Comp Metabolic Mui316 BILI T 0.3 mg/dL 05/10/2015 Comp Metabolic Hji100 ALBUMIN 3.9 g/dL 05/10/2015 Comp Metabolic Mir341 TPRO 6.1 g/dL 05/10/2015 Comp Metabolic Zst959 GLOB 2.2 g/dL 05/10/2015 Comp Metabolic Seh282 A/G Ratio 1.7 Ratio 05/10/2015 Comp Metabolic Evg159 Osmo 274 mOsmo 05/10/2015 Tsh Ord6 hTSH [...] 29.4 pg 05/10/2015 Cbc With Differential Ord2 [place]% 9.0 % 05/10/2015 Cbc With Differential Ord2 [...] 2.14 K/ul 05/10/2015 Cbc With Differential Ord2 [place] ABS# 0.5 K/ul 05/10/2015 Cbc With Differential [...] Ord30 C/HDL 3.8 Ratio 05/10/2015 Culture Urine [id number] URINE CULTURE SEE NOTES 02/25/2015 Culture Urine [id number] Continued Results 02/25/2015 Urine Culture Ucult Complete >100,000 col/ml aerobic growth sent to ref lab 02/22/2015 Free T4 Qip284 FREE T4 1.16 ng/dL 02/11/2015 Tsh Ord6 [...] clear 06/01/2016 None Full Exam - General 1995 Ears/Nose/Throat [...] crepitus 02/11/2015 None Procedures Procedure Codes Date URINALYSIS NONAUTO W/O SCOPE CPT-4: 11104 03/24/2018 PPPS, SUBSEQ VISIT CPT -4: G0439 12/24/2017 THER/PROPH/DIAG INJ SC/IM CPT-4: 03877 12/24/2017 TRIAMCINOLONE ACET INJ NOS CPT-4: J3301 12/24/2017 THER/PROPH/DIAG INJ SC/IM CPT-4: 25978 11/18/2017 ROCEPHIN, PER 250 MG CPT-4: J0696 11/18/2017 PRESCRIP TRANSMIT VIA ERX SY CPT-4: G8553 04/01/2017 TRIAMCINOLONE ACET INJ NOS CPT-4: J3301 03/25/2017 PPPS, SUBSEQ VISIT CPT -4: G0439 12/23/2016 THER/PROPH/DIAG INJ SC/IM CPT-4: 77777 12/08/2016 TRIAMCINOLONE ACET INJ NOS CPT-4: J3301 12/08/2016 PRESCRIP TRANSMIT VIA ERX SY CPT-4: G8553 12/08/2016 PRESCRIP TRANSMIT VIA ERX SY CPT-4: G8553 11/30/2016 URINALYSIS NONAUTO W/O SCOPE CPT-4: 07256 07/08/2016 PRESCRIP TRANSMIT VIA ERX SY CPT-4: G8553 06/01/2016 PRESCRIP TRANSMIT VIA ERX SY CPT-4: G8553 02/27/2016 THER/PROPH/DIAG INJ SC/IM CPT-4: 40647 03/01/2015 ROCEPHIN, PER 250 MG CPT-4: J0696 03/01/2015 THER/PROPH/DIAG INJ SC/IM CPT-4: 11105 02/28/2015 ROCEPHIN, PER 250 MG CPT-4: J0696 02/28/2015 THER/PROPH/DIAG INJ SC/IM CPT-4: 14980 02/27/2015 ROCEPHIN, PER 250 MG CPT-4: J0696 02/27/2015 THER/PROPH/DIAG INJ SC/IM CPT-4: 81899 02/26/2015 ROCEPHIN, PER 250 MG CPT-4: J0696 02/26/2015 THER/PROPH/DIAG INJ SC/IM CPT-4: 56033 02/25/2015 ROCEPHIN, PER 250 MG CPT-4: J0696 02/25/2015 URINALYSIS NONAUTO W/O SCOPE CPT-4: 72152 02/21/2015 Vital Signs Date Vital 04/01/2018 Blood Pressure 1: 134/58 Code : 8480-6 BMI: 27.8 Code : 17127-6 Heart Rate 1 : 85 bpm Height: 5'3" SpO2: 96% Weight: 157 lbs 03/24/2018 Blood Pressure 1: 128/82 Code : 8480-6 BMI: 27.8 Code : 91668-8 Heart Rate 1 : 84 bpm Height: 5'3" SpO2: 97% Weight: 157 lbs 03/01/2018 Blood Pressure 1: 136/70 Code : 8480-6 BMI: 27.8 Code : 98844-7 Heart Rate 1 : 70 bpm Height: 5'3" SpO2: 96% Weight: 157 lbs 12/24/2017 Height: Weight: 11/18/2017 Blood Pressure 1: 164/74 Code : 8480-6 BMI: 27.6 Code : 54162-7 Heart Rate 1 : 70 bpm Height: 5'3" SpO2: 96% Weight: 156 lbs 11/03/2017 Blood Pressure 1: 118/72 Code : 8480-6 BMI: 27.6 Code : 29214-8 Heart Rate 1 : 82 bpm Height: 5'3" SpO2: 96% Weight: 156 lbs 09/22/2017 Blood Pressure 1: 136/68 Code : 8480-6 BMI: 27.6 Code : 67562-5 Heart Rate 1 : 70 bpm Height: 5'3" SpO2: 97% Weight: 156 lbs 04/01/2017 Blood Pressure 1: 144/82 Code : 8480-6 Heart Rate 1: 68 bpm Height: 5'3" SpO2: 97% Weight: 03/25/2017 Blood Pressure 1: 116/70 Code : 8480-6 BMI: 26.7 Code : 91664-6 Heart Rate 1 : 67 bpm Height: 5'3" SpO2: 98% Weight: 151 lbs 12/23/2016 BMI: 26.7 Code: 66869-1 Height: 5'3" Weight: 151 lbs 12/22/2016 Blood Pressure 1: 142/60 Code : 8480-6 BMI: 26.7 Code : 99665-2 Heart Rate 1 : 67 bpm Height: 5'3" SpO2: 98% Weight: 151 lbs 12/08/2016 Blood Pressure 1: 140/72 Code : 8480-6 Heart Rate 1: 72 bpm Height: 5'3" SpO2: 97% Weight: 11/30/2016 Blood Pressure 1: 128/80 Code : 8480-6 BMI: 26.7 Code : 78086-8 Heart Rate 1 : 63 bpm Height: 5'3" SpO2: 96% Weight: 151 lbs 09/28/2016 Blood Pressure 1: 130/80 Code : 8480-6 BMI: 27.1 Code : 85188-5 Heart Rate 1 : 80 bpm Height: 5'3" SpO2: 97% Weight: 153 lbs 07/06/2016 Blood Pressure 1: 162/72 Code : 8480-6 BMI: 27.6 Code : 36858-0 Heart Rate 1 : 72 bpm Height: 5'3" SpO2: 98% Weight: 156 lbs 06/01/2016 Blood Pressure 1: 122/66 Code : 8480-6 BMI: 27.5 Code : 90431-8 Heart Rate 1 : 73 bpm Height: 5'3" SpO2: 98% Weight: 155 lbs 8 oz 02/27/2016 Blood Pressure 1: 126/68 Code : 8480-6 BMI: 26.9 Code : 97836-9 Heart Rate 1 : 70 bpm Height: 5'3" SpO2: 98% Weight: 152 lbs 09/10/2015 Blood Pressure 1: 130/70 Code : 8480-6 BMI: 26.9 Code : 72884-7 Heart Rate 1 : 72 bpm Height: 5'3" SpO2: 97% Weight: 152 lbs 05/14/2015 Blood Pressure 1: 138/82 Code : 8480-6 BMI: 26.4 Code : 52249-5 Heart Rate 1 : 75 bpm Height: 5'3" SpO2: 98% Weight: 149 lbs 02/11/2015 Blood Pressure 1: 128/72 Code : 8480-6 BMI: 25.5 Code : 33334-8 Heart Rate 1 : 73 bpm Height: [...] data Encounters Encounter Performer Location Codes Date 53999 EST. PATIENT, LEVEL III Diagnosis: Other acute sinusitis[ICD10: J01.80] Diagnosis: Dizziness and giddiness[ICD10: R42] Diagnosis: Dysuria[ICD10: R30.0] Diagnosis: Candidal stomatitis[ICD10: B37.0] Diagnosis: Essential (primary) hypertension[ICD10: I10] Diagnosis: Other fatigue[ICD10: R53.83] Diagnosis: Other malaise[ICD10: R53.81] Bridget Cortez MD, [facility] CPT-4 : 48416 04/01/2018 11419 71081 EST. 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 PATIENT, LEVEL IV Diagnosis: Otalgia, right ear[ICD10: H92.01] Diagnosis: Headache[ICD10: R51] Diagnosis: Other fatigue[ICD10: R53.83] Diagnosis: Abnormal findings on diagnostic imaging of other specified body structures[ICD10: R93.89] Elen Cortez MD, [facility] CPT-4: 49467 03/01/2018 15886 EST. PATIENT, LEVEL III Diagnosis: Acute cystitis with hematuria[ICD10: N30.01] Bridget Cortez MD, [facility] CPT-4: 38939 11/18/2017 02608 EST. PATIENT, LEVEL IV Diagnosis: Other acute sinusitis[ICD10: J01.80] Diagnosis: Otalgia, right ear[ICD10: H92.01] Bridget Cortez MD, [facility] CPT -4: 60548 11/03/2017 14031 EST. PATIENT, LEVEL III Diagnosis: Other fatigue[ICD10: R53.83] Diagnosis: Other malaise[ICD10: R53.81] Diagnosis: Pain in left knee[ICD10: M25.562] Diagnosis: Pain in right knee[ICD10: M25.561] Bridget Cortez MD, [facility] CPT-4: 52769 09/22/2017 ([id number]) 12312 EST. PATIENT, LEVEL III Diagnosis: Cough[ICD10: R05] Diagnosis: Acute bronchitis due to other specified organisms[ICD10: J20.8] Elen Cortez MD, [facility] CPT-4: 65622 04/01/2017 ([id number]) 63948 EST. PATIENT, LEVEL III Diagnosis: Otalgia, right ear[ICD10: H92.01] Diagnosis: Other allergic rhinitis[ICD10: J30.89] Shiela Cortez MD, [facility] CPT-4: 61707 03/25/2017 ([id number]) 87935 EST. PATIENT, LEVEL III Diagnosis: Benign paroxysmal vertigo, bilateral[ICD10: H81.13] Shiela Cortez MD, [facility] CPT-4: 44118 12/22/2016 ([id number]) 11311 EST. PATIENT, LEVEL IV Diagnosis: Benign paroxysmal vertigo, bilateral[ICD10: H81.13] Diagnosis: Other allergic rhinitis[ICD10: J30.89] Diagnosis: Hypothyroidism, unspecified[ICD10: E03.9] Shiela Cortez MD, [facility] CPT-4: 32728 12/08/2016 ([id number]) 61570 EST. PATIENT, LEVEL IV Diagnosis: Atrophy of thyroid (acquired)[ICD10: E03.4] Diagnosis: Essential (primary) hypertension[ICD10: I10] Diagnosis: Mixed hyperlipidemia[ICD10: E78.2] Elen Cortez MD, [facility] CPT-4: 79475 11/30/2016 49302 EST. PATIENT, LEVEL IV Diagnosis: Headache[ICD10: R51] Diagnosis: Other fatigue[ICD10: R53.83] Diagnosis: Dizziness and giddiness[ICD10: R42] Bridget Cortez MD, [facility] CPT-4: 73422 09/28/2016 36874 EST. PATIENT, LEVEL IV Diagnosis: Essential (primary) hypertension[ICD10: I10] Diagnosis: Headache[ICD10: R51] Bridget Cortez MD, [facility] CPT-4: 01355 07/06/2016 ([id number]) 50719 EST. PATIENT, LEVEL IV Diagnosis: Essential (primary) hypertension[ICD10: I10] Diagnosis: Atrophy of thyroid (acquired)[ICD10: E03.4] Diagnosis: Mixed hyperlipidemia[ICD10: E78.2] Elen Cortez MD, [facility] CPT-4: 17896 06/01/2016 34824 EST. PATIENT, LEVEL IV Diagnosis: Acute laryngopharyngitis[ICD10: J06.0] Diagnosis: Other allergic rhinitis[ICD10: J30.89] Diagnosis: Other specified hypothyroidism[ICD10: E03.8] Diagnosis: Other fatigue[ICD10: R53.83] Bridget Cortez MD, [facility] CPT-4 : 94506 02/27/2016 ([id number]) 91912 EST. PATIENT, LEVEL III Diagnosis: Essential (primary) hypertension[ICD10: I10] Diagnosis: Mixed hyperlipidemia[ICD10: E78.2] Elen Cortez MD, [facility] CPT-4: 98529 09/10/2015 ([id number]) 27520 EST. PATIENT, LEVEL IV Diagnosis: Essential (primary) hypertension[ICD10: I10] Diagnosis: Hypothyroidism, unspecified[ICD10: E03.9] Diagnosis: Unspecified osteoarthritis, unspecified site[ICD10: M19.90] [facility] CPT-4: 60981 05/14/2015 ([id number]) OFFICE VISIT, NEW - LEVEL 4 Diagnosis: Essential (primary) hypertension[ICD10: I10] Diagnosis: Hypothyroidism, unspecified[ICD10: E03.9] Diagnosis: Unspecified osteoarthritis, unspecified site[ICD10: M19.90] [facility] CPT-4: 64697 02/11/2015 Plan of Care Planned Activity Notes [...] show improvement. 04/01/2018 Appointment: Bridget Velazco WPtel: [address] [place], [place] [phone] (15 min) Moderate 04/01/2018 Patient Education: Patient Medication Summary Completed 04/01/2018 Visit Plan: Sinusitis - Pt has acute infection - pain in face, maxillary region, Pt informed to use decongestant, RX given to patient, sinus rinses also recommended. Call if symptoms do not show improvement. Dysuria - rx for antibiotic sent to pharmacy. 03/24/2018 Appointment: Elen Cortez WPtel: [phone] [facility] (15 min) Moderate 03/24/2018 Patient Education: Patient [...] improve. 03/01/2018 Appointment[phone] (15 min) Moderate 03/01/2018 Patient [...] nasal steroid allergy spray. 12/24/2017 Appointment: Bridget Velazcotel: [facility]2 [facility] [facility] - Annual Wellness Visit 12/24/2017 Patient Education: Patient Medication Summary Completed 12/24/2017 Appointment: Bridget Velazco WPtel: [facility] (15 min) Moderate 11/30/2017 Appointment: Lab [...] not improve. 11/18/2017 Appointment: Bridget Velazco WPtel: [address] [place], [place] [phone] (15 min) Moderate 11/18/2017 Patient Education: Patient Medication Summary Completed 11/18/2017 Visit Plan: Sinusitis - Pt has acute infection - pain in face, maxillary region, Pt informed to use decongestant, RX given to patient, sinus rinses also recommended. Call if symptoms do not show improvement. 11/03/2017 Appointment: Bridget Velazcotel: [facility]2 [facility] (15 min) Moderate 11/03/2017 Patient Education: [...] or does not improve. 09/22/2017 Appointment: Bridget Velazco: [facility]5 [facility]66[facility] (15 min) Moderate 09/22/2017 Patient Education: Patient Medication Summary Completed 09/22/2017 Visit Plan: Bronchitis - acute case of bronchitis identified. Pt has been given antibiotics, breathing treatments as appropriate, and pt has been instructed to call if symptoms are not improved, or if symptoms acutely worsen. 04/01/2017 Appointment: Elen Cortez WPtel: [facility] (15 min) Moderate 04/01/2017 Patient Education: [...] allergy spray. 03/25/2017 Appointment: Shiela Srivastava WPtel: [phone] [place] (10 min) Simple 03/25/2017 Appointment: Elen Cortez WPtel: [facility]5 [facility] (15 min) Moderate 03/25/2017 Patient Education: Patient [...] surrogate. 12/23/2016 Appointment: Bridget Velazco WPtel: [phone] [facility] [facility] - Annual Wellness Visit 12/23/2016 Patient Education: Patient Medication Summary Completed 12/23/2016 Visit Plan: Vertigo-discussed PT for vestibular exercises- patient wants to wait since symptoms are improving-continue anti histamine as directed-meclizine as needed 12/22/2016 Appointment: Shiela Srivastava WPtel: [phone] [phone] (30 min) Complex 12/22/2016 Patient Education: [...] control. 12/08/2016 Appointment: Shiela Srivastava WPtel: [phone] [phone] (30 min) Complex 12/08/2016 Patient Education: [...] medications. 11/30/2016 Appointment: [phone] (15 min) Moderate 11/30/2016 Patient [...] or concerns. 09/28/2016 Appointment[phone] (30 min) Complex 09/28/2016 Patient [...] acute concerns. 07/06/2016 Appointment: Bridget Velazco WPtel: [phone] [facility] (15 min) Moderate 07/06/2016 Patient Education: Patient [...] improving 06/01/2016 Appointment: Elen Cortez WPtel: [phone] [facility] (15 min) Moderate 06/01/2016 Patient Education: Patient [...] labs 02/27/2016 Appointment: [phone] (30 min) Complex 02/27/2016 Patient Education: Patient Medication Summary Completed 02/27/2016 Patient Education: Patient Medication Summary Completed 09/27/2015 Care Plan: SCREENINGMAMMOGRAPHYDIGITAL LOINC : 83176-4 Pending 09/27/2015 Visit Plan: Hypertension - well [...] the colonoscopy 09/10/2015 Appointment: El[facility] Cortez [facility]Ptel: [phone] [facility] [place] (15 min) Moderate 09/10/2015 Patient [...] Dr. Sanchez. 05/14/2015 Appointment: Elen Cortez WPtel: [facility]5 [facility] (15 min) Moderate 05/14/2015 Patient Education: Patient Medication Summary Completed 05/14/2015 Patient Education: Hypertension Completed 05/14/2015 Care Plan: Referral Order SNOMED-CT : [id number] Ordered 05/14/2015 Patient Education: Patient Medication Summary Completed 03/01/2015 Appointment: Nurse Visit 02/28/2015 Patient Education: Patient Medication Summary Completed 02/28/2015 Patient Education: Patient Medication Summary Completed 02/27/2015 Appointment: Nurse Visit 02/26/2015 Patient Education: Patient Medication Summary Completed 02/26/2015 Appointment: Injection 02/25/2015 Patient Education: Patient Medication Summary Completed 02/25/2015 Patient Education: Patient Medication Summary Completed 02/21/2015 Care Plan: URINALYSIS NONAUTO W/O SCOPE LOINC : 47262-7 Ordered 02/21/2015 Visit Plan: Hypertension - well [...] pain symptoms. 02/11/2015 Appointment: Elen Cortez WPtel: [facility]0 [facility] New Patient 02/11/2015 Patient Education: Patient Medication [...]
--- OUTSIDE RECORDS SUMMARY | 2018-06-01 13:11 | XMS REPORT | CCD ---
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 Name Role Phone PP Unavailable CCM Unavailable Summary Purpose Interface Exchange Insurance Providers Payer name Policy type / Coverage type Covered libertarian ID Effective Begin Date Effective End Date WPS Medicare Part B Medicare Part B [id number] Unknown [facility] Life Insurance Medicare Part B [id number] Unknown Family history Mother Diagnosis Age At [...] spouses - 02/11/[address]: 812150775 Never smoker 02/11/2015 Alcohol history Unknown occasionally drinks alcohol 02/11/2015 Allergies, Adverse Reactions, Alerts Substance Reaction Codes Entered Date Inactivated Date Status CODEINE RxNorm: 2670 02/11/2015 No Inactive Date Active allergy Unknown 12/23/2016 No Inactive Date Active ciprofloxacin rash, RxNorm: 76902 02/26/2015 No Inactive Date Active hydrocodone Unknown 02/11/2015 No Inactive Date Active PREDNISONE RxNorm: 8640 03/29/2018 No Inactive Date Active GABAPENTIN Unknown 12/23/2016 No Inactive Date Active SULFA (SULFONAMIDES) Unknown 02/11/2015 No Inactive Date Active Past Medical History Illness Codes Condition Status Onset Date Resolved Date Acute laryngopharyngitis ICD-9: 465.0 ICD-10: J06.0 Active [...] Condition Codes Effective Dates Condition Status Acute laryngopharyngitis ICD-9: 465.0 ICD-10: J06.0 02/26/2016 [...] Instructions nystatin 100,000 unit/mL oral suspension RxNorm: 581757 4 Milliliter(s) PO QID 04/01/2018 04/05/2018 Active doxycycline hyclate 100 mg tablet RxNorm: 8406273 1 Tablet(s) PO BID 04/01/2018 04/10/2018 Active amoxicillin 500 mg capsule RxNorm: 456127 1 Capsule(s) PO TID 03/24/2018 04/02/2018 Active prednisone 10 mg tablet RxNorm: 931738 1 Tablet(s) PO UD 6 pills on day 1 and 2 and then decrease by one pill every other day until prescription is done 03/24/2018 No Stop Date Active metoprolol succinate ER 50 mg tablet,extended release 24 hr RxNorm: 759869 Tablet (s) TAKE 1 TABLET BY MOUTH DAILY 03/21/2018 10/16/2018 Active PLEASE SEND REFILL REQUESTS ELECTRONICALLY!! Synthroid 88 mcg tablet RxNorm: 963596 TAKE 1 TABLET BY MOUTH DAILY 03/08/2018 08/04/2018 Active 03/07/2018 11:21:21 AM pravastatin 80 mg tablet RxNorm: 506551 Tablet(s) 1 Tablet(s) PO daily 03/01/2018 02/23/2019 Active Kenalog 40 mg/mL suspension for injection RxNorm: 8612324 Milliliter(s) Inj 12/24/2017 12/24/2017 Inactive cetirizine 10 mg tablet RxNorm: 5883030 TAKE 1 TABLET BY MOUTH DAILY 12/21/2017 07/18/2018 Active Generic For:*ZYRTEC 10 MG TABLET 12/21/2017 10:08:05 AM Synthroid 88 mcg tablet RxNorm: 001346 TAKE 1 TABLET BY MOUTH DAILY 12/07/2017 03/06/2018 Inactive 12/06/2017 11:46:49 AM Lipitor 80 mg tablet RxNorm: 773087 1 Tablet(s) PO daily 201702/28/2018 Inactive pravastatin 80 mg tablet RxNorm: 556942 1 Tablet(s) PO daily 11/29/2017 Inactive Lipitor 80 mg tablet RxNorm: 584457 1 Tablet(s) PO daily 201711/28/2017 Inactive lisinopril 20 mg tablet RxNorm: 096407 TAKE 1 TABLET BY MOUTH TWICE DAILY 11/23/2017 04/21/2018 Active Generic For:*PRINIVIL 20 MG TABLET 11/23/2017 11:29:44 AM Macrobid 100 mg capsule RxNorm: 509525 1 Capsule(s) PO BID 06/201711/25/2017 Inactive Macrobid 100 mg capsule RxNorm: 738609 1 Capsule(s) PO BID 06/201711/18/2017 Inactive Lomotil 2.5 mg-0.025 mg tablet RxNorm: 1252437 1 -2 Tablet(s) PO TID as needed 11/19/2017 11/25/2017 Inactive Lomotil 2.5 mg-0.025 mg tablet RxNorm: 9002610 1 -2 Tablet(s) PO TID as needed 11/19/2017 11/18/2017 Inactive Pyridium 200 mg tablet RxNorm: 4928483 1 Tablet(s) PO TID as needed 11/18/2017 11/22/2017 Inactive Augmentin 500 mg-125 mg tablet RxNorm: 856319 1 Tablet(s) PO TID 11/18/2017 11/27/2017 Inactive Keflex 500 mg capsule RxNorm: 544660 1 Capsule(s) PO TID 201711/09/2017 Inactive Denavir 1 % topical cream RxNorm: 119902 1 TOP TID as needed cold sores 11/01/2017 01/29/2018 Inactive Denavir 1 % topical cream RxNorm: 307631 1 TOP TID as needed cold sores 11/01/2017 10/31/2017 Inactive Synthroid 88 mcg tablet RxNorm: 395189 TAKE 1 TABLET BY MOUTH DAILY 09/29/2017 11/27/2017 Inactive 09/29/2017 12:58:07 PM pravastatin 80 mg tablet RxNorm: 219642 1 Tablet(s) PO daily 08/30/2017 Inactive pravastatin 80 mg tablet RxNorm: 803747 1 Tablet(s) PO daily 11/28/2017 Inactive Synthroid 88 mcg tablet RxNorm: 043569 TAKE 1 TABLET BY MOUTH DAILY 08/30/2017 09/28/2017 Inactive 08/30/2017 10:53:26 AM metoprolol succinate ER 50 mg tablet,extended release 24 hr RxNorm: 275380 Tablet (s) TAKE 1 TABLET BY MOUTH DAILY 08/17/2017 03/14/2018 Inactive PLEASE SEND REFILL REQUESTS ELECTRONICALLY!! lisinopril 20 mg tablet RxNorm: 331982 TAKE 1 TABLET BY MOUTH TWICE DAILY 06/18/2017 11/14/2017 Inactive Generic For:*PRINIVIL 20 MG TABLET 06/18/2017 1:31: 00 PM Synthroid 88 mcg tablet RxNorm: 872138 TAKE 1 TABLET BY MOUTH DAILY 05/24/2017 08/21/2017 Inactive 05/24/2017 2:13:21 PM cetirizine 10 mg tablet RxNorm: 9165021 1 Tablet(s) PO daily 12/12/2017 Inactive Zithromax Z-Russell 250 mg capsule RxNorm: 363935 1 Capsule(s) PO 04/02/2017 04/05/2017 Inactive Zithromax Z-Russell 250 mg tablet RxNorm: 461877 1 Tablet(s) PO 04/01/2017 Inactive Zithromax Z-Russell 250 mg capsule RxNorm: 850127 1 Capsule(s) PO 04/02/2017 04/01/2017 Inactive Zithromax Z-Russell 250 mg tablet RxNorm: 585342 1 Tablet(s) PO 04/06/2017 Inactive Ventolin HFA 90 mcg/actuation aerosol inhaler RxNorm: 418334 2 INH QID as needed - for the first 3 days inhale at least two puffs three times daily, then use as needed for shortness of breath 04/01/2017 04/30/2017 Inactive Keflex 500 mg capsule RxNorm: 507840 1 Capsule(s) PO TID 201604/01/2017 Inactive meclizine 25 mg tablet RxNorm: 350491 1 Tablet(s) PO Q6 PRN 1 Tablet(s) PO Q6 PRN 03/25/2017 No Stop Date Active dizziness meclizine 25 mg tablet RxNorm: 297954 Tablet(s) 1 Tablet(s) PO Q6 PRN 03/25/2017 03/24/2017 Inactive dizziness Kenalog 40 mg/mL suspension for injection RxNorm: 5212100 1 Milliliter(s) Inj 03/25/2017 03/25/2017 Inactive meclizine 25 mg tablet RxNorm: 529683 1 Tablet(s) PO Q6 PRN 03/24/2017 Inactive dizziness lisinopril 20 mg tablet RxNorm: 617639 1 Tablet(s) PO BID 01/1506/13/2017 Inactive metoprolol succinate ER 50 mg tablet,extended release 24 hr RxNorm: 969443 TAKE 1 TABLET BY MOUTH DAILY 01/07/20172017 Inactive Generic For:TOPROL XL 50MG TAB 01/07/2017 12:38:23 PM Synthroid 88 mcg tablet RxNorm: 423082 TAKE 1 TABLET BY MOUTH DAILY 12/25/2016 05/23/2017 Inactive 12/25/2016 9:47:08 AM Zithromax Z-Russell 250 mg tablet RxNorm: 010746 Tablet(s) PO UD 03/24/2017 Inactive meclizine 25 mg tablet RxNorm: 554588 1 Tablet(s) PO Q6 PRN 12/20/2016 Inactive dizziness Kenalog 40 mg/mL suspension for injection RxNorm: 6407437 Milliliter(s) Inj 12/08/2016 12/08/2016 Inactive meloxicam 15 mg tablet RxNorm: 291288 1 Tablet(s) PO daily 12/20/2016 Inactive cetirizine 10 mg tablet RxNorm: 0307083 1 Tablet(s) PO daily 05/16/2017 Inactive pravastatin 40 mg tablet RxNorm: 813513 1 Tablet(s) PO BID 07/201608/30/2017 Inactive Cancel 80 mg tab lisinopril 20 mg tablet RxNorm: 057815 1 Tablet(s) PO BID 08/1212/22/2016 Inactive Synthroid 88 mcg tablet RxNorm: 886151 1 Tablet(s) PO TAKE ONE (1) TABLET BY MOUTH DAILY 07/28/2016 12/24/2016 Inactive decrease dose hydralazine 25 mg tablet RxNorm: 191677 1 Tablet(s) PO TID as needed for Systolic blood pressure over 170 07/06/20162016 Inactive lisinopril 20 mg tablet RxNorm: 671063 1 Tablet(s) PO BID to replace your other lisinopril dose 07/06/2016 08/04/2016 Inactive lisinopril 10 mg tablet RxNorm: 419711 TAKE ONE TABLET BY MOUTH TWICE DAILY 06/10/2016 08/11/2016 Inactive Generic For:ZESTRIL 10 MG TABLET 06/09/2016 12:58: 50 PM triamcinolone acetonide 0.1 % topical cream RxNorm: 0213371 1 Application TOP TID as needed 06/01/2016 No Stop Date Active nystatin 100,000 unit/gram topical cream RxNorm: 716775 1 Gram(s) TOP TID as needed 06/01/2016 No Stop Date Active metoprolol succinate ER 50 mg tablet,extended release 24 hr RxNorm: 564014 1 Tablet(s) PO daily 05/26/2016 12/21/2016 Inactive cetirizine 10 mg tablet RxNorm: 6048715 1 Tablet(s) PO daily 10/18/2016 Inactive Synthroid 88 mcg tablet RxNorm: 508268 1 Tablet(s) PO TAKE ONE (1) TABLET BY MOUTH DAILY 03/06/2016 03/07/2018 Inactive Brand name only! Synthroid 88 mcg tablet RxNorm: 822743 1 Tablet(s) PO TAKE ONE (1) TABLET BY MOUTH DAILY 03/04/2016 03/05/2016 Inactive decrease dose cetirizine 10 mg tablet RxNorm: 6980687 1 Tablet(s) PO daily 03/22/2016 Inactive amoxicillin 500 mg capsule RxNorm: 618347 1 Capsule(s) PO TID 02/27/2016 03/04/2016 Inactive lisinopril 10 mg tablet RxNorm: 821707 TAKE ONE TABLET BY MOUTH TWICE DAILY 02/06/2016 06/04/2016 Inactive Generic For:ZESTRIL 10 MG TABLET 02/06/2016 12:16: 38 PM Synthroid 100 mcg tablet RxNorm: 265180 TAKE ONE (1) TABLET BY MOUTH DAILY 01/03/2016 03/03/2016 Inactive 01/03/2016 10:35:14 AM N O T I C E Last quantity doesn't match original quantity lisinopril 10 mg tablet RxNorm: 739171 1 Tablet(s) PO BID 10/0301/31/2016 Inactive Synthroid 100 mcg tablet RxNorm: 817946 1 Tablet(s) PO daily 01/02/2016 Inactive metoprolol succinate ER 50 mg tablet,extended release 24 hr RxNorm: 309012 1 Tablet(s) PO daily 10/04/2015 04/30/2016 Inactive Tylenol Arthritis 650 mg tablet,extended release RxNorm: 4529225 2 Tablet(s) PO TID 09/10/2015 No Stop Date Active metoprolol succinate ER 50 mg tablet,extended release 24 hr RxNorm: 533876 1 Tablet(s) PO daily 09/05/2015 10/03/2015 Inactive pravastatin 80 mg tablet RxNorm: 772170 1 Tablet(s) PO QHS 08/30/2015 Inactive pravastatin 40 mg tablet RxNorm: 645418 1 Tablet(s) PO BID 08/29/2015 Inactive Cancel 80 mg tab pravastatin 40 mg tablet RxNorm: 873980 1 Tablet(s) PO BID 08/19/2016 Inactive Cancel 80 mg tab lisinopril 10 mg tablet RxNorm: 710360 1 Tablet(s) PO BID 06/1308/11/2016 Inactive lisinopril 10 mg tablet RxNorm: 814105 1 Tablet(s) PO BID 06/1310/03/2015 Inactive Synthroid 100 mcg tablet RxNorm: 437282 1 Tablet(s) PO daily 10/03/2015 Inactive ceftriaxone 1 gram solution for injection RxNorm: 9905462 Inj 03/01/2015 03/01/2015 Inactive ceftriaxone 1 gram solution for injection RxNorm: 8626961 Inj 02/28/2015 02/28/2015 Inactive ceftriaxone 1 gram solution for injection RxNorm: 8608303 Inj 02/27/2015 02/27/2015 Inactive ceftriaxone 1 gram solution for injection RxNorm: 5074896 Inj 02/26/2015 02/26/2015 Inactive ceftriaxone 1 gram solution for injection RxNorm: 9394736 Inj 02/25/2015 02/25/2015 Inactive phenazopyridine 200 mg tablet RxNorm: 3960853 1 Tablet(s) PO Q8 02/21/2015 02/20/2015 Inactive Cipro 500 mg tablet RxNorm: 661163 1 Tablet(s) PO BID 201402/20/2015 Inactive phenazopyridine 200 mg tablet RxNorm: 5920787 1 Tablet(s) PO Q8 02/21/2015 02/25/2015 Inactive Cipro 500 mg tablet RxNorm: 827137 1 Tablet(s) PO BID 201402/27/2015 Inactive lisinopril 10 mg tablet RxNorm: 918818 1 Tablet(s) PO BID 02/1406/12/2015 Inactive metoprolol succinate ER 50 mg tablet,extended release 24 hr RxNorm: 265527 3/4 Tablet(s) PO daily 02/11/2015 09/04/2015 Inactive Voltaren 1 % topical gel RxNorm: 269518 2 Gram(s) TOP QID use this on affected joints up to four times daily. 02/11/2015 03/12/2015 Inactive Probiotic oral RxNorm : 6205 oral No Start Date Active aspirin 81 mg tablet RxNorm: 990440 1 Tablet(s) PO daily No Start Date Active Super B-Complex tablet RxNorm: 1 Tablet(s) PO No Start Date Active Flonase Allergy Relief 50 mcg/actuation nasal spray, suspension RxNorm: 3314663 1 Prentice NASAL BID No Start Date Active Super-D3+ oral RxNorm : oral No Start Date Active Prilosec OTC 20 mg tablet,delayed release RxNorm: 333773 2 Tablet(s) PO QAM No Start Date Active Flonase Allergy Relief 50 mcg/actuation nasal spray, suspension RxNorm: 3146746 1 Prentice NASAL as needed No Start Date Active Move Free Ultra 40 mg-10 mg-3.3 mg tablet RxNorm: 1 Tablet(s) PO daily No Start Date Active metoprolol tartrate 50 mg tablet RxNorm: 623274 1 Tablet(s) PO daily No Start Date 02/10/2015 Inactive lisinopril 10 mg tablet RxNorm: 135911 1 Tablet(s) PO BID No Start Date 02/13/2015 Inactive pravastatin 80 mg tablet RxNorm: 223179 1 Tablet(s) PO daily No Start Date 08/29/2015 Inactive Synthroid 100 mcg tablet RxNorm: 796338 1 Tablet(s) PO daily No Start Date 06/09/2015 Inactive lisinopril 40 mg tablet RxNorm: 690133 1 Tablet(s) PO BID No Start Date 02/28/2018 Inactive Tylenol Arthritis 650 mg tablet,extended release RxNorm: 1677597 4 Tablet(s) PO daily No Start Date 09/09/2015 Inactive Medication Administered Medication Codes Instructions Start Date Status Kenalog 40 mg/mL suspension for injection RxNorm: 8910730 Milliliter 12/24/2017 No longer Active Kenalog 40 mg/mL suspension for injection RxNorm: 8932514 1Milliliter 03/25/2017 No longer Active Kenalog 40 mg/mL suspension for injection RxNorm: 1932315 Milliliter 12/08/2016 No longer Active ceftriaxone 1 gram solution for injection RxNorm: 5914203 03/01/2015 No longer Active ceftriaxone 1 gram solution for injection RxNorm: 3398754 02/28/2015 No longer Active ceftriaxone 1 gram solution for injection RxNorm: 2837414 02/27/2015 No longer Active ceftriaxone 1 gram solution for injection RxNorm: 6137849 02/26/2015 No longer Active ceftriaxone 1 gram solution for injection RxNorm: 9906806 02/25/2015 No longer Active Immunizations Vaccine Codes Date Status Influenza CVX: 141 01/18/2018 completed Influenza CVX: 141 03/15/2017 completed Influenza CVX: 141 03/18/2016 completed Influenza CVX: 141 02/11/2015 completed Assessments Condition Codes Effective Dates Dizziness and giddiness ICD-10: R42 ICD-9: 780.4 [...] growth sent to ref lab 11/19/2017 B12 Nuf004 B12 712.00 pg/ml 09/28/2017 C-Reactive Protein Qnt Crqnt CRP 0.1 mg/dl 09/23/2017 Comp Metabolic Kyh767 NA 139 mEq/L 09/23/2017 Comp Metabolic Xta358 K 4.8 mEq/L 09/23/2017 Comp Metabolic Phd142 CL 104 mEq/L 09/23/2017 Comp Metabolic Dqr290 CO2 28.0 mEq/L 09/23/2017 Comp Metabolic Okn079 ANION GAP 12 09/23/2017 Comp Metabolic Wwc729 GLUCOSE 92 mg/dL 09/23/2017 Comp Metabolic Ype491 Creat 0.7 mg/dL 09/23/2017 Comp Metabolic Hmh461 eGFR 91 ml/min/1.73m2 09/23/2017 Comp Metabolic Exz748 BUN 11 mg/dL 09/23/2017 Comp Metabolic Uam392 B/C Ratio 16.4 Ratio 09/23/2017 Comp Metabolic Sxr553 CALCIUM 9.0 mg/dL 09/23/2017 Comp Metabolic Ncx634 ALK PHOS 76 U/L 09/23/2017 Comp Metabolic Mur607 AST(SGOT) 24 U/L 09/23/2017 Comp Metabolic Txi717 ALT(SGPT) 21 U/L 09/23/2017 Comp Metabolic Www540 BILI T 0.3 mg/dL 09/23/2017 Comp Metabolic Mol779 ALBUMIN 4.1 g/dL 09/23/2017 Comp Metabolic Any124 TPRO 6.2 g/dL 09/23/2017 Comp Metabolic Myr320 GLOB 2.1 g/dL 09/23/2017 Comp Metabolic Wtt239 A/G Ratio 1.9 Ratio 09/23/2017 Comp Metabolic Rxu625 Osmo 277 mOsmo 09/23/2017 Sed Rate Ord21 ESR 3 mm/hr 09/22/2017 Vitamin D 25 Oh Huh2090 VITAMIN D, 25 HYDROXY 78.79 ng/mL Tsh [...] 97.1 fl 09/22/2017 Cbc With Differential Ord2 [place]% 10.5 % 09/22/2017 Cbc With Differential Ord2 [...] 2.37 K/ul 09/22/2017 Cbc With Differential Ord2 [place] ABS# 0.9 K/ul 09/22/2017 Cbc With Differential Ord2 Eos ABS# 0.2 K/ul 09/22/2017 Cbc With Differential Ord2 Baso ABS# 0.0 K/ul 09/22/2017 Free T4 Qfj586 FREE T4 0.99 ng/dL 09/22/2017 %Hba1C Ttz136 % HbA1c 76326-1 6.0 % 12/10/2016 %Hba1C Nxv289 Gluc Ave 126 mg/dL 12/10/2016 Tsh Ord6 hTSH II 0.89 uIU/mL 12/09/2016 Free T4 Lmc192 FREE T4 0.99 ng/dL 12/09/2016 Comp Metabolic Aeq386 NA 138 mEq/L 12/09/2016 Comp Metabolic Lyh131 K 5.2 mEq/L 12/09/2016 Comp Metabolic Tre609 CL 104 mEq/L 12/09/2016 Comp Metabolic Eib177 CO2 29.0 mEq/L 12/09/2016 Comp Metabolic Lnp331 ANION GAP 10 12/09/2016 Comp Metabolic Cmg787 GLUCOSE 135 mg/dL 12/09/2016 Comp Metabolic Bpc223 Creat 0.8 mg/dL 12/09/2016 Comp Metabolic Qdi374 eGFR 79 ml/min/1.73m2 12/09/2016 Comp Metabolic Zyb257 BUN 18 mg/dL 12/09/2016 Comp Metabolic Feh047 B/C Ratio 23.7 Ratio 12/09/2016 Comp Metabolic Fop543 CALCIUM 9.5 mg/dL 12/09/2016 Comp Metabolic Gbn739 ALK PHOS 73 U/L 12/09/2016 Comp Metabolic Bos242 AST(SGOT) 24 U/L 12/09/2016 Comp Metabolic Ztz759 ALT(SGPT) 20 U/L 12/09/2016 Comp Metabolic Qel503 BILI T 0.3 mg/dL 12/09/2016 Comp Metabolic Czt945 ALBUMIN 4.3 g/dL 12/09/2016 Comp Metabolic Ljf317 TPRO 6.4 g/dL 12/09/2016 Comp Metabolic Muy983 GLOB 2.1 g/dL 12/09/2016 Comp Metabolic Iuj469 A/G Ratio 2.0 Ratio 12/09/2016 Comp Metabolic Zwk902 Osmo 280 mOsmo 12/09/2016 Cbc With Differential [...] 31.3 pg 12/09/2016 Cbc With Differential Ord2 [place]% 6.5 % 12/09/2016 Cbc With Differential Ord2 [...] 1.84 K/ul 12/09/2016 Cbc With Differential Ord2 [place] ABS# 0.6 K/ul 12/09/2016 Cbc With Differential Ord2 Eos ABS# 0.1 K/ul 12/09/2016 Cbc With Differential Ord2 Baso ABS# 0.1 K/ul 12/09/2016 Tsh Ord6 hTSH II 1.19 uIU/mL 09/02/2016 Free T4 Oox117 FREE T4 0.97 ng/dL 09/02/2016 Comp Metabolic Zej328 NA 137 mEq/L 06/01/2016 Comp Metabolic Sda942 K 4.1 mEq/L 06/01/2016 Comp Metabolic Fyq303 CL 104 mEq/L 06/01/2016 Comp Metabolic Ilw519 CO2 25.0 mEq/L 06/01/2016 Comp Metabolic Tah445 ANION GAP 12 06/01/2016 Comp Metabolic Kih055 GLUCOSE 108 mg/dL 06/01/2016 Comp Metabolic Bfm016 Creat 0.8 mg/dL 06/01/2016 Comp Metabolic Iml391 eGFR 80 ml/min/1.73m2 06/01/2016 Comp Metabolic Ive585 BUN 15 mg/dL 06/01/2016 Comp Metabolic Ojs946 B/C Ratio 20.0 Ratio 06/01/2016 Comp Metabolic Xtp644 CALCIUM 9.1 mg/dL 06/01/2016 Comp Metabolic Kpy177 ALK PHOS 89 U/L 06/01/2016 Comp Metabolic Vvm393 AST(SGOT) 25 U/L 06/01/2016 Comp Metabolic Mjp671 ALT(SGPT) 20 U/L 06/01/2016 Comp Metabolic Zlb849 BILI T 0.3 mg/dL 06/01/2016 Comp Metabolic Wnb684 ALBUMIN 4.2 g/dL 06/01/2016 Comp Metabolic Xzu850 TPRO 6.2 g/dL 06/01/2016 Comp Metabolic Sgy810 GLOB 2.0 g/dL 06/01/2016 Comp Metabolic Ykg427 A/G Ratio 2.1 Ratio 06/01/2016 Comp Metabolic Yhq070 Osmo 275 mOsmo 06/01/2016 Free T4 Yan523 FREE T4 0.94 ng/dL 06/01/2016 Tsh Ord6 [...] 31.1 pg 06/01/2016 Cbc With Differential Ord2 [place]% 8.4 % 06/01/2016 Cbc With Differential Ord2 [...] 2.96 K/ul 06/01/2016 Cbc With Differential Ord2 [place] ABS# 0.6 K/ul 06/01/2016 Cbc With Differential [...] 31.3 pg 02/27/2016 Cbc With Differential Ord2 [place]% 10.0 % 02/27/2016 Cbc With Differential Ord2 [...] 2.28 K/ul 02/27/2016 Cbc With Differential Ord2 [place] ABS# 0.9 K/ul 02/27/2016 Cbc With Differential Ord2 Eos ABS# 0.3 K/ul 02/27/2016 Cbc With Differential Ord2 Baso ABS# 0.1 K/ul 02/27/2016 Tsh Ord6 hTSH II 0.18 uIU/mL 02/27/2016 Free T4 Idd500 FREE T4 1.17 ng/dL 02/27/2016 Comp Metabolic Fpq932 NA 135 mEq/L 02/27/2016 Comp Metabolic Adx240 K 5.2 mEq/L 02/27/2016 Comp Metabolic Hfu433 CL 102 mEq/L 02/27/2016 Comp Metabolic Dsa474 CO2 27.0 mEq/L 02/27/2016 Comp Metabolic Zee382 ANION GAP 11 02/27/2016 Comp Metabolic Fnc169 GLUCOSE 93 mg/dL 02/27/2016 Comp Metabolic Ygk776 Creat 0.7 mg/dL 02/27/2016 Comp Metabolic Oup767 eGFR 91 ml/min/1.73m2 02/27/2016 Comp Metabolic Doc863 BUN 14 mg/dL 02/27/2016 Comp Metabolic Pyj410 B/C Ratio 20.9 Ratio 02/27/2016 Comp Metabolic Kqx759 CALCIUM 9.4 mg/dL 02/27/2016 Comp Metabolic Vnk714 ALK PHOS 100 U/L 02/27/2016 Comp Metabolic Vba065 AST(SGOT) 23 U/L 02/27/2016 Comp Metabolic Glx612 ALT(SGPT) 24 U/L 02/27/2016 Comp Metabolic Zax736 BILI T 0.2 mg/dL 02/27/2016 Comp Metabolic Snv201 ALBUMIN 4.3 g/dL 02/27/2016 Comp Metabolic Htu698 TPRO 6.3 g/dL 02/27/2016 Comp Metabolic Yil483 GLOB 2.1 g/dL 02/27/2016 Comp Metabolic Ejr863 A/G Ratio 2.1 Ratio 02/27/2016 Comp Metabolic Rzq167 Osmo 270 mOsmo 02/27/2016 Free T4 Dee044 FREE T4 1.03 ng/dL 05/10/2015 Comp Metabolic Rpi206 NA 137 mEq/L 05/10/2015 Comp Metabolic Bkr101 K 4.4 mEq/L 05/10/2015 Comp Metabolic Nol145 CL 102 mEq/L 05/10/2015 Comp Metabolic Lpk328 CO2 28.0 mEq/L 05/10/2015 Comp Metabolic Wxw033 ANION GAP 11 05/10/2015 Comp Metabolic Glm144 GLUCOSE 108 mg/dL 05/10/2015 Comp Metabolic Tzz763 Creat 0.7 mg/dL 05/10/2015 Comp Metabolic Llq649 eGFR 86 ml/min/1.73m2 05/10/2015 Comp Metabolic Phq286 BUN 13 mg/dL 05/10/2015 Comp Metabolic Viz681 B/C Ratio 18.3 Ratio 05/10/2015 Comp Metabolic Ufb201 CALCIUM 9.4 mg/dL 05/10/2015 Comp Metabolic Aop107 ALK PHOS 94 U/L 05/10/2015 Comp Metabolic Jtc426 AST(SGOT) 22 U/L 05/10/2015 Comp Metabolic Use661 ALT(SGPT) 21 U/L 05/10/2015 Comp Metabolic Ykz944 BILI T 0.3 mg/dL 05/10/2015 Comp Metabolic Jxl333 ALBUMIN 3.9 g/dL 05/10/2015 Comp Metabolic Tyk790 TPRO 6.1 g/dL 05/10/2015 Comp Metabolic Qmn979 GLOB 2.2 g/dL 05/10/2015 Comp Metabolic Etn703 A/G Ratio 1.7 Ratio 05/10/2015 Comp Metabolic Mxo279 Osmo 274 mOsmo 05/10/2015 Tsh Ord6 hTSH [...] 29.4 pg 05/10/2015 Cbc With Differential Ord2 [place]% 9.0 % 05/10/2015 Cbc With Differential Ord2 [...] 2.14 K/ul 05/10/2015 Cbc With Differential Ord2 [place] ABS# 0.5 K/ul 05/10/2015 Cbc With Differential [...] Ord30 C/HDL 3.8 Ratio 05/10/2015 Culture Urine [id number] URINE CULTURE SEE NOTES 02/25/2015 Culture Urine [id number] Continued Results 02/25/2015 Urine Culture Ucult Complete >100,000 col/ml aerobic growth sent to ref lab 02/22/2015 Free T4 Hna134 FREE T4 1.16 ng/dL 02/11/2015 Tsh Ord6 [...] Codes Date URINALYSIS NONAUTO W/O SCOPE CPT-4: 86833 03/24/2018 PPPS, SUBSEQ VISIT CPT -4: G0439 12/24/2017 THER/PROPH/DIAG INJ SC/IM CPT-4: 40874 12/24/2017 TRIAMCINOLONE ACET INJ NOS CPT-4: J3301 12/24/2017 THER/PROPH/DIAG INJ SC/IM CPT-4: 73475 11/18/2017 ROCEPHIN, PER 250 MG CPT-4: J0696 11/18/2017 PRESCRIP TRANSMIT VIA ERX SY CPT-4: G8553 04/01/2017 TRIAMCINOLONE ACET INJ NOS CPT-4: J3301 03/25/2017 PPPS, SUBSEQ VISIT CPT -4: G0439 12/23/2016 THER/PROPH/DIAG INJ SC/IM CPT-4: 99815 12/08/2016 TRIAMCINOLONE ACET INJ NOS CPT-4: J3301 12/08/2016 PRESCRIP TRANSMIT VIA ERX SY CPT-4: G8553 12/08/2016 PRESCRIP TRANSMIT VIA ERX SY CPT-4: G8553 11/30/2016 URINALYSIS NONAUTO W/O SCOPE CPT-4: 92952 07/08/2016 PRESCRIP TRANSMIT VIA ERX SY CPT-4: G8553 06/01/2016 PRESCRIP TRANSMIT VIA ERX SY CPT-4: G8553 02/27/2016 THER/PROPH/DIAG INJ SC/IM CPT-4: 90410 03/01/2015 ROCEPHIN, PER 250 MG CPT-4: J0696 03/01/2015 THER/PROPH/DIAG INJ SC/IM CPT-4: 60846 02/28/2015 ROCEPHIN, PER 250 MG CPT-4: J0696 02/28/2015 THER/PROPH/DIAG INJ SC/IM CPT-4: 23522 02/27/2015 ROCEPHIN, PER 250 MG CPT-4: J0696 02/27/2015 THER/PROPH/DIAG INJ SC/IM CPT-4: 27251 02/26/2015 ROCEPHIN, PER 250 MG CPT-4: J0696 02/26/2015 THER/PROPH/DIAG INJ SC/IM CPT-4: 07347 02/25/2015 ROCEPHIN, PER 250 MG CPT-4: J0696 02/25/2015 URINALYSIS NONAUTO W/O SCOPE CPT-4: 28699 02/21/2015 Vital Signs Date Vital 04/01/2018 Blood Pressure 1: 134/58 Code : 8480-6 BMI: 27.8 Code : 58834-3 Heart Rate 1 : 85 bpm Height: 5'3" SpO2: 96% Weight: 157 lbs 03/24/2018 Blood Pressure 1: 128/82 Code : 8480-6 BMI: 27.8 Code : 73705-6 Heart Rate 1 : 84 bpm Height: 5'3" SpO2: 97% Weight: 157 lbs 03/01/2018 Blood Pressure 1: 136/70 Code : 8480-6 BMI: 27.8 Code : 72266-0 Heart Rate 1 : 70 bpm Height: 5'3" SpO2: 96% Weight: 157 lbs 12/24/2017 Height: Weight: 11/18/2017 Blood Pressure 1: 164/74 Code : 8480-6 BMI: 27.6 Code : 92482-3 Heart Rate 1 : 70 bpm Height: 5'3" SpO2: 96% Weight: 156 lbs 11/03/2017 Blood Pressure 1: 118/72 Code : 8480-6 BMI: 27.6 Code : 09801-7 Heart Rate 1 : 82 bpm Height: 5'3" SpO2: 96% Weight: 156 lbs 09/22/2017 Blood Pressure 1: 136/68 Code : 8480-6 BMI: 27.6 Code : 47896-6 Heart Rate 1 : 70 bpm Height: 5'3" SpO2: 97% Weight: 156 lbs 04/01/2017 Blood Pressure 1: 144/82 Code : 8480-6 Heart Rate 1: 68 bpm Height: 5'3" SpO2: 97% Weight: 03/25/2017 Blood Pressure 1: 116/70 Code : 8480-6 BMI: 26.7 Code : 18962-1 Heart Rate 1 : 67 bpm Height: 5'3" SpO2: 98% Weight: 151 lbs 12/23/2016 BMI: 26.7 Code: 45849-0 Height: 5'3" Weight: 151 lbs 12/22/2016 Blood Pressure 1: 142/60 Code : 8480-6 BMI: 26.7 Code : 53891-9 Heart Rate 1 : 67 bpm Height: 5'3" SpO2: 98% Weight: 151 lbs 12/08/2016 Blood Pressure 1: 140/72 Code : 8480-6 Heart Rate 1: 72 bpm Height: 5'3" SpO2: 97% Weight: 11/30/2016 Blood Pressure 1: 128/80 Code : 8480-6 BMI: 26.7 Code : 25621-8 Heart Rate 1 : 63 bpm Height: 5'3" SpO2: 96% Weight: 151 lbs 09/28/2016 Blood Pressure 1: 130/80 Code : 8480-6 BMI: 27.1 Code : 37121-7 Heart Rate 1 : 80 bpm Height: 5'3" SpO2: 97% Weight: 153 lbs 07/06/2016 Blood Pressure 1: 162/72 Code : 8480-6 BMI: 27.6 Code : 87886-8 Heart Rate 1 : 72 bpm Height: 5'3" SpO2: 98% Weight: 156 lbs 06/01/2016 Blood Pressure 1: 122/66 Code : 8480-6 BMI: 27.5 Code : 77552-1 Heart Rate 1 : 73 bpm Height: 5'3" SpO2: 98% Weight: 155 lbs 8 oz 02/27/2016 Blood Pressure 1: 126/68 Code : 8480-6 BMI: 26.9 Code : 01669-0 Heart Rate 1 : 70 bpm Height: 5'3" SpO2: 98% Weight: 152 lbs 09/10/2015 Blood Pressure 1: 130/70 Code : 8480-6 BMI: 26.9 Code : 65502-9 Heart Rate 1 : 72 bpm Height: 5'3" SpO2: 97% Weight: 152 lbs 05/14/2015 Blood Pressure 1: 138/82 Code : 8480-6 BMI: 26.4 Code : 45828-2 Heart Rate 1 : 75 bpm Height: 5'3" SpO2: 98% Weight: 149 lbs 02/11/2015 Blood Pressure 1: 128/72 Code : 8480-6 BMI: 25.5 Code : 94278-1 Heart Rate 1 : 73 bpm Height: [...] data Encounters Encounter Performer Location Codes Date [id number] EST. PATIENT, LEVEL III Diagnosis: Other acute sinusitis[ICD10: J01.80] Diagnosis: Dizziness and giddiness[ICD10: R42] Diagnosis: Dysuria[ICD10: R30.0] Diagnosis: Candidal stomatitis[ICD10: B37.0] Diagnosis: Essential (primary) hypertension[ICD10: I10] Diagnosis: Other fatigue[ICD10: R53.83] Diagnosis: Other malaise[ICD10: R53.81] Bridget Cortez MD, [facility] CPT-4 : 89913 04/01/2018 [id number] 02381 EST. PATIENT, LEVEL III Diagnosis: Acute recurrent maxillary sinusitis[ICD10: J01.01] Diagnosis: Dysuria[ICD10: R30.0] Diagnosis: Unspecified mycosis[ICD10: B49] Diagnosis: Headache[ICD10: R51] Elen Cortez MD, [facility] CPT-4: 64701 03/24/[id number]) 90714 EST. PATIENT, LEVEL IV Diagnosis: Otalgia, right ear[ICD10: H92.01] Diagnosis: Headache[ICD10: R51] Diagnosis: Other fatigue[ICD10: R53.83] Diagnosis: Abnormal findings on diagnostic imaging of other specified body structures[ICD10: R93.89] Elen Cortez MD, [facility] CPT-4: 68102 03/01/2018 58713 EST. PATIENT, LEVEL III Diagnosis: Acute cystitis with hematuria[ICD10: N30.01] Bridget Cortez MD, [facility] CPT-4: 00197 11/18/2017 19101 EST. PATIENT, LEVEL IV Diagnosis: Other acute sinusitis[ICD10: J01.80] Diagnosis: Otalgia, right ear[ICD10: H92.01] Bridget Cortez MD, [facility] CPT -4: 58001 11/03/2017 52867 EST. PATIENT, LEVEL III Diagnosis: Other fatigue[ICD10: R53.83] Diagnosis: Other malaise[ICD10: R53.81] Diagnosis: Pain in left knee[ICD10: M25.562] Diagnosis: Pain in right knee[ICD10: M25.561] Bridget Cortez MD, [facility] CPT-4: 93025 09/22/2017 ([id number]) 92120 EST. PATIENT, LEVEL III Diagnosis: Cough[ICD10: R05] Diagnosis: Acute bronchitis due to other specified organisms[ICD10: J20.8] Elen Cortez MD, [facility] CPT-4: 25873 04/01/2017 ([id number]) 07101 EST. PATIENT, LEVEL III Diagnosis: Otalgia, right ear[ICD10: H92.01] Diagnosis: Other allergic rhinitis[ICD10: J30.89] Shiela Cortez MD, [facility] CPT-4: 28342 03/25/2017 ([id number]) 42698 EST. PATIENT, LEVEL III Diagnosis: Benign paroxysmal vertigo, bilateral[ICD10: H81.13] Shiela Cortez MD, [facility] CPT-4: 65087 12/22/2016 ([id number]) 49998 EST. PATIENT, LEVEL IV Diagnosis: Benign paroxysmal vertigo, bilateral[ICD10: H81.13] Diagnosis: Other allergic rhinitis[ICD10: J30.89] Diagnosis: Hypothyroidism, unspecified[ICD10: E03.9] Shiela Cortez MD, [facility] CPT-4: 70123 12/08/2016 ([id number]) 50758 EST. PATIENT, LEVEL IV Diagnosis: Atrophy of thyroid (acquired)[ICD10: E03.4] Diagnosis: Essential (primary) hypertension[ICD10: I10] Diagnosis: Mixed hyperlipidemia[ICD10: E78.2] Elen Cortez MD, [facility] CPT-4: 97836 11/30/2016 [id number] EST. PATIENT, LEVEL IV Diagnosis: Headache[ICD10: R51] Diagnosis: Other fatigue[ICD10: R53.83] Diagnosis: Dizziness and giddiness[ICD10: R42] Bridget Cortez MD, [facility] CPT-4: 08172 09/28/2016 14276 EST. PATIENT, LEVEL IV Diagnosis: Essential (primary) hypertension[ICD10: I10] Diagnosis: Headache[ICD10: R51] Bridget Cortez MD, [facility] CPT-4: 05870 07/06/2016 ([id number]) 67073 EST. PATIENT, LEVEL IV Diagnosis: Essential (primary) hypertension[ICD10: I10] Diagnosis: Atrophy of thyroid (acquired)[ICD10: E03.4] Diagnosis: Mixed hyperlipidemia[ICD10: E78.2] Elen Cortez MD, [facility] CPT-4: 77374 06/01/2016 [id number] EST. PATIENT, LEVEL IV Diagnosis: Acute laryngopharyngitis[ICD10: J06.0] Diagnosis: Other allergic rhinitis[ICD10: J30.89] Diagnosis: Other specified hypothyroidism[ICD10: E03.8] Diagnosis: Other fatigue[ICD10: R53.83] Bridget Cortez MD, [facility] CPT-4 : 08408 02/27/2016 ([id number]) 07970 EST. PATIENT, LEVEL III Diagnosis: Essential (primary) hypertension[ICD10: I10] Diagnosis: Mixed hyperlipidemia[ICD10: E78.2] Elen Cortez MD, [facility] CPT-4: 29872 09/10/2015 ([id number]) 64647 EST. PATIENT, LEVEL IV Diagnosis: Essential (primary) hypertension[ICD10: I10] Diagnosis: Hypothyroidism, unspecified[ICD10: E03.9] Diagnosis: Unspecified osteoarthritis, unspecified site[ICD10: M19.90] [facility] CPT-4: 66558 05/14/2015 ([id number]) OFFICE VISIT, NEW - LEVEL 4 Diagnosis: Essential (primary) hypertension[ICD10: I10] Diagnosis: Hypothyroidism, unspecified[ICD10: E03.9] Diagnosis: Unspecified osteoarthritis, unspecified site[ICD10: M19.90] [facility] CPT-4: 52710 02/11/2015 Plan of Care Planned Activity Notes Codes Status Date Visit Plan: Dysuria, dizziness, fatigue, malaise - [...] if symptoms do not show improvement. 04/01/2018 Patient Education: Patient Medication Summary Completed 04/01/2018 Visit Plan: Sinusitis - Pt has acute infection - pain in face, maxillary region, Pt informed to use decongestant, RX given to patient, sinus rinses also recommended. Call if symptoms do not show improvement. Dysuria - rx for antibiotic sent to pharmacy. 03/24/2018 Appointment: Elen Cortez WPtel: [address] [place], [place] [phone] (15 min) Moderate 03/24/2018 Patient Education: Patient [...] improve. 03/01/2018 Appointment: [facility] Cortez [facility]el: [phone] (15 min) Moderate 03/01/2018 Patient Education: Patient [...] spray. 12/24/2017 Appointment: [phone] [id number] [place] [address] - Annual Wellness Visit 12/24/2017 Patient Education: Patient Medication Summary Completed 12/24/2017 Appointment: Bridget Velazco WPtel: [address] [place] [address] (15 min) Moderate 11/30/2017 Appointment: Lab Draw [...] not improve. 11/18/2017 Appointment: Bridget Velazco WPtel: [address] [place] [address] (15 min) Moderate 11/18/2017 Patient Education: Patient Medication Summary Completed 11/18/2017 Visit Plan: Sinusitis - Pt has acute infection - pain in face, maxillary region, Pt informed to use decongestant, RX given to patient, sinus rinses also recommended. Call if symptoms do not show improvement. 11/03/2017 Appointment: Bridget Velazco WPtel: [address] [place] [address] (15 min) Moderate 11/03/2017 Patient Education: Patient [...] not improve. 09/22/2017 Appointment: Bridget Velazco WPtel: [facility] (15 min) Moderate 09/22/2017 Patient Education: Patient Medication Summary Completed 09/22/2017 Visit Plan: Bronchitis - acute case of bronchitis identified. Pt has been given antibiotics, breathing treatments as appropriate, and pt has been instructed to call if symptoms are not improved, or if symptoms acutely worsen. 04/01/2017 Appointment: Elen Cortez WPtel: [facility] (15 min) Moderate 04/01/2017 Patient Education: [...] allergy spray. 03/25/2017 Appointment: Shiela Srivastava WPtel: [facility] [place] [phone] (10 min) Simple 03/25/2017 Appointment: Elen Cortez WPtel: [facility] (15 min) Moderate 03/25/2017 Patient Education: [...] surrogate. 12/23/2016 Appointment: Bridget Velazco WPtel: [phone] - Annual Wellness Visit 12/23/2016 Patient Education: Patient Medication Summary Completed 12/23/2016 Visit Plan: Vertigo-discussed PT for vestibular exercises- patient wants to wait since symptoms are improving-continue anti histamine as directed-meclizine as needed 12/22/2016 Appointment: Shiela Srivastava WPtel: [facility]5 [facility] [place] [address] (30 min) Complex 12/22/2016 Patient Education: Patient [...] of control. 12/08/2016 Appointment: Shiela Srivastava WPtel: [facility]5 [phone] (30 min) Complex 12/08/2016 Patient Education: Patient [...] medications. 11/30/2016 Appointment: Elen Cortez WPtel: [phone] [facility] (15 min) Moderate 11/30/2016 Patient Education: Patient [...] concerns. 09/28/2016 Appointment: [facility]el[phone] (30 min) Complex 09/28/2016 Patient [...] 07/06/2016 Appointment: Bridget Velazco WPtel: [phone] [facility] (15 min) Moderate 07/06/2016 Patient Education: Patient [...] not improving 06/01/2016 Appointment: Elen Cortez WPtel: [facility] (15 min) Moderate 06/01/2016 Patient Education: Patient [...] labs 02/27/2016 Appointment: Bridget Velazco WPtel: [phone] [facility] (30 min) Complex 02/27/2016 Patient Education: Patient Medication Summary Completed 02/27/2016 Patient Education: Patient Medication Summary Completed 09/27/2015 Care Plan[facility] 73717-1 Pending 09/27/2015 Visit Plan: Hypertension - well [...] colonoscopy 09/10/2015 Appointment: Elen Cortez WPtel: [phone] [facility] (15 min) Moderate 09/10/2015 Patient Education: Patient [...] Dr. Sanchez. 05/14/2015 Appointment: Elen Cortez WPtel: [phone] [facility] (15 min) Moderate 05/14/2015 Patient Education: Patient Medication Summary Completed 05/14/2015 Patient Education: Hypertension Completed 05/14/2015 Care Plan: Referral Order SNOMED-CT : [id number] Ordered 05/14/2015 Patient Education: Patient Medication Summary Completed 03/01/2015 Appointment: Nurse Visit 02/28/2015 Patient Education: Patient Medication Summary Completed 02/28/2015 Patient Education: Patient Medication Summary Completed 02/27/2015 Appointment: Nurse Visit 02/26/2015 Patient Education: Patient Medication Summary Completed 02/26/2015 Appointment: Injection 02/25/2015 Patient Education: Patient Medication Summary Completed 02/25/2015 Patient Education: Patient Medication Summary Completed 02/21/2015 Care Plan: URINALYSIS NONAUTO W/O SCOPE LOINC : 44031-6 Ordered 02/21/2015 Visit Plan: Hypertension - well [...] symptoms. 02/11/2015 Appointment: Elen Cortez WPtel: [phone] New Patient 02/11/2015 Patient Education: Patient Medication [...]
--- OUTSIDE RECORDS SUMMARY | 2018-06-01 13:13 | XMS REPORT | CCD ---
Author Author [facility]en [facility]ez Organization [facility] Address [address] [place] [address] Phone Care Team Providers Care Booth Manager Name Role Phone PP Unavailable CCM Unavailable Summary Purpose Interface Exchange Insurance Providers Payer name Policy type / Coverage type Covered alliance party ID Effective Begin Date Effective End Date WPS Medicare Part B Medicare Part B [id number] Unknown [employer] Insurance Medicare Part B [id number] Unknown Family history Mother Diagnosis Age At [...] spouses - 02/11/[address]: [id number] Never smoker 02/11/2015 Alcohol history Unknown occasionally drinks alcohol 02/11/2015 Allergies, Adverse Reactions, Alerts Substance Reaction Codes Entered Date Inactivated Date Status CODEINE RxNorm: 2670 02/11/2015 No Inactive Date Active allergy Unknown 12/23/2016 No Inactive Date Active ciprofloxacin rash, RxNorm: 56210 02/26/2015 No Inactive Date Active hydrocodone Unknown 02/11/2015 No Inactive Date Active GABAPENTIN Unknown 12/23/2016 No Inactive Date Active SULFA (SULFONAMIDES) Unknown 02/11/2015 No Inactive Date Active Past Medical History Illness Codes Condition Status Onset Date Resolved Date Acute recurrent maxillary sinusitis ICD-9: 461.0 ICD-10: J01.01 Active 03/24/2018 Unknown Dysuria ICD-9: 788.1 ICD-10: R30.0 Active 02/20/2015 Unknown Headache ICD-9: 784.0 ICD-10: R51 Active 07/06/2016 Unknown Unspecified mycosis ICD-9: 117.9 ICD-10: B49 Active 03/24/2018 Unknown Abnormal findings on diagnostic imaging of other specified body structures ICD-9: 793.99 ICD-10: R93.89 Active 03/01/2018 Unknown Otalgia, right ear ICD -9: 388.70 ICD-10: H92.01 Active 03/25/2017 Unknown Other fatigue ICD-9: 780.79 ICD-10: R53.83 Active 02/26/2016 Unknown Acute laryngopharyngitis ICD-9: 465.0 ICD-10: J06.0 Active 02/26/2016 Unknown Encounter for general adult medical examination with abnormal findings ICD-9: V70.0 ICD-10: Z00.01 Active 12/23/2016 Unknown Other allergic rhinitis ICD-9: 477.8 ICD-10: J30.89 Active 02/26/2016 Unknown Acute cystitis with hematuria ICD-9: 595.0 ICD-10: N30.01 Active 11/18/2017 Unknown Other acute sinusitis ICD-9: 461.8 ICD-10: J01.80 Active 11/03/2017 Unknown Anemia, unspecified ICD-9: 285.9 ICD-10: D64.9 Active 09/27/2017 Unknown Other malaise ICD-9: 780.79 ICD-10: R53.81 [...] 780.4 ICD-10: R42 Active 09/28/2016 Unknown Other specified hypothyroidism ICD-9: 244.8 ICD-10: [...] Condition Codes Effective Dates Condition Status Acute recurrent maxillary sinusitis ICD-9: 461.0 ICD-10: J01.01 03/24/2018 Active Dysuria ICD-9: 788.1 ICD-10: R30.0 02/20/2015 Active Headache ICD-9: 784.0 ICD-10: R51 07/06/2016 Active Unspecified mycosis ICD-9: 117.9 ICD-10: B49 03/24/2018 Active Abnormal findings on diagnostic imaging of other specified body structures ICD-9: 793.99 ICD-10: R93.89 03/01/2018 Active Otalgia, right ear ICD -9: 388.70 ICD-10: H92.01 03/25/2017 Active Other fatigue ICD-9: 780.79 ICD-10: R53.83 02/26/2016 Active Acute laryngopharyngitis ICD-9: 465.0 ICD-10: J06.0 02/26/2016 Active Encounter for general adult medical examination with abnormal findings ICD-9: V70.0 ICD-10: Z00.01 12/23/2016 Active Other allergic rhinitis ICD-9: 477.8 ICD-10: J30.89 02/26/2016 Active Acute cystitis with hematuria ICD-9: 595.0 ICD-10: N30.01 11/18/2017 Active Other acute sinusitis ICD-9: 461.8 ICD-10: J01.80 11/03/2017 Active Anemia, unspecified ICD-9: 285.9 ICD-10: D64.9 09/27/2017 Active Other malaise ICD-9: 780.79 ICD-10: R53.81 [...] ICD-9: 780.4 ICD-10: R42 09/28/2016 Active Other specified hypothyroidism ICD-9: 244.8 ICD-10: [...] Start Date Stop Date Status Fill Instructions amoxicillin 500 mg capsule RxNorm: 195017 1 Capsule(s) PO TID 03/24/2018 04/02/2018 Active prednisone 10 mg tablet RxNorm: 126894 1 Tablet(s) PO UD 6 pills on day 1 and 2 and then decrease by one pill every other day until prescription is done 03/24/2018 No Stop Date Active metoprolol succinate ER 50 mg tablet,extended release 24 hr RxNorm: 622461 Tablet (s) TAKE 1 TABLET BY MOUTH DAILY 03/21/2018 10/16/2018 Active PLEASE SEND REFILL REQUESTS ELECTRONICALLY!! Synthroid 88 mcg tablet RxNorm: 910535 TAKE 1 TABLET BY MOUTH DAILY 03/08/2018 08/04/2018 Active 03/07/2018 11:21:21 AM pravastatin 80 mg tablet RxNorm: 797678 Tablet(s) 1 Tablet(s) PO daily 03/01/2018 02/23/2019 Active Kenalog 40 mg/mL suspension for injection RxNorm: 5791438 Milliliter(s) Inj 12/24/2017 12/24/2017 Inactive cetirizine 10 mg tablet RxNorm: 5656086 TAKE 1 TABLET BY MOUTH DAILY 12/21/2017 07/18/2018 Active Generic For:*ZYRTEC 10 MG TABLET 12/21/2017 10:08:05 AM Synthroid 88 mcg tablet RxNorm: 225567 TAKE 1 TABLET BY MOUTH DAILY 12/07/2017 03/06/2018 Inactive 12/06/2017 11:46:49 AM Lipitor 80 mg tablet RxNorm: 692309 1 Tablet(s) PO daily 201702/28/2018 Inactive pravastatin 80 mg tablet RxNorm: 878042 1 Tablet(s) PO daily 11/29/2017 Inactive Lipitor 80 mg tablet RxNorm: 010532 1 Tablet(s) PO daily 201711/28/2017 Inactive lisinopril 20 mg tablet RxNorm: 898507 TAKE 1 TABLET BY MOUTH TWICE DAILY 11/23/2017 04/21/2018 Active Generic For:*PRINIVIL 20 MG TABLET 11/23/2017 11:29:44 AM Macrobid 100 mg capsule RxNorm: 603801 1 Capsule(s) PO BID 06/201711/25/2017 Inactive Macrobid 100 mg capsule RxNorm: 958309 1 Capsule(s) PO BID 06/201711/18/2017 Inactive Lomotil 2.5 mg-0.025 mg tablet RxNorm: 3028053 1 -2 Tablet(s) PO TID as needed 11/19/2017 11/25/2017 Inactive Lomotil 2.5 mg-0.025 mg tablet RxNorm: 8602072 1 -2 Tablet(s) PO TID as needed 11/19/2017 11/18/2017 Inactive Pyridium 200 mg tablet RxNorm: 7014594 1 Tablet(s) PO TID as needed 11/18/2017 11/22/2017 Inactive Augmentin 500 mg-125 mg tablet RxNorm: 634335 1 Tablet(s) PO TID 11/18/2017 11/27/2017 Inactive Keflex 500 mg capsule RxNorm: 510525 1 Capsule(s) PO TID 201711/09/2017 Inactive Denavir 1 % topical cream RxNorm: 751775 1 TOP TID as needed cold sores 11/01/2017 01/29/2018 Inactive Denavir 1 % topical cream RxNorm: 386454 1 TOP TID as needed cold sores 11/01/2017 10/31/2017 Inactive Synthroid 88 mcg tablet RxNorm: 615739 TAKE 1 TABLET BY MOUTH DAILY 09/29/2017 11/27/2017 Inactive 09/29/2017 12:58:07 PM pravastatin 80 mg tablet RxNorm: 708268 1 Tablet(s) PO daily 08/30/2017 Inactive pravastatin 80 mg tablet RxNorm: 365516 1 Tablet(s) PO daily 11/28/2017 Inactive Synthroid 88 mcg tablet RxNorm: 839359 TAKE 1 TABLET BY MOUTH DAILY 08/30/2017 09/28/2017 Inactive 08/30/2017 10:53:26 AM metoprolol succinate ER 50 mg tablet,extended release 24 hr RxNorm: 100343 Tablet (s) TAKE 1 TABLET BY MOUTH DAILY 08/17/2017 03/14/2018 Inactive PLEASE SEND REFILL REQUESTS ELECTRONICALLY!! lisinopril 20 mg tablet RxNorm: 101655 TAKE 1 TABLET BY MOUTH TWICE DAILY 06/18/2017 11/14/2017 Inactive Generic For:*PRINIVIL 20 MG TABLET 06/18/2017 1:31: 00 PM Synthroid 88 mcg tablet RxNorm: 738452 TAKE 1 TABLET BY MOUTH DAILY 05/24/2017 08/21/2017 Inactive 05/24/2017 2:13:21 PM cetirizine 10 mg tablet RxNorm: 9096379 1 Tablet(s) PO daily 12/12/2017 Inactive Zithromax Z-Russell 250 mg capsule RxNorm: 600204 1 Capsule(s) PO 04/02/2017 04/05/2017 Inactive Zithromax Z-Russell 250 mg tablet RxNorm: 468995 1 Tablet(s) PO 04/01/2017 Inactive Zithromax Z-Russell 250 mg capsule RxNorm: 352419 1 Capsule(s) PO 04/02/2017 04/01/2017 Inactive Zithromax Z-Russell 250 mg tablet RxNorm: 106245 1 Tablet(s) PO 04/06/2017 Inactive Ventolin HFA 90 mcg/actuation aerosol inhaler RxNorm: 983524 2 INH QID as needed - for the first 3 days inhale at least two puffs three times daily, then use as needed for shortness of breath 04/01/2017 04/30/2017 Inactive Keflex 500 mg capsule RxNorm: 280365 1 Capsule(s) PO TID 201604/01/2017 Inactive meclizine 25 mg tablet RxNorm: 715796 1 Tablet(s) PO Q6 PRN 1 Tablet(s) PO Q6 PRN 03/25/2017 No Stop Date Active dizziness meclizine 25 mg tablet RxNorm: 962066 Tablet(s) 1 Tablet(s) PO Q6 PRN 03/25/2017 03/24/2017 Inactive dizziness Kenalog 40 mg/mL suspension for injection RxNorm: 1840734 1 Milliliter(s) Inj 03/25/2017 03/25/2017 Inactive meclizine 25 mg tablet RxNorm: 494093 1 Tablet(s) PO Q6 PRN 03/24/2017 Inactive dizziness lisinopril 20 mg tablet RxNorm: 371778 1 Tablet(s) PO BID 01/1506/13/2017 Inactive metoprolol succinate ER 50 mg tablet,extended release 24 hr RxNorm: 959014 TAKE 1 TABLET BY MOUTH DAILY 01/07/20172017 Inactive Generic For:TOPROL XL 50MG TAB 01/07/2017 12:38:23 PM Synthroid 88 mcg tablet RxNorm: 776231 TAKE 1 TABLET BY MOUTH DAILY 12/25/2016 05/23/2017 Inactive 12/25/2016 9:47:08 AM Zithromax Z-Russell 250 mg tablet RxNorm: 750204 Tablet(s) PO UD 03/24/2017 Inactive meclizine 25 mg tablet RxNorm: 124304 1 Tablet(s) PO Q6 PRN 12/20/2016 Inactive dizziness Kenalog 40 mg/mL suspension for injection RxNorm: 8083999 Milliliter(s) Inj 12/08/2016 12/08/2016 Inactive meloxicam 15 mg tablet RxNorm: 383704 1 Tablet(s) PO daily 12/20/2016 Inactive cetirizine 10 mg tablet RxNorm: 9090420 1 Tablet(s) PO daily 05/16/2017 Inactive pravastatin 40 mg tablet RxNorm: 993316 1 Tablet(s) PO BID 07/201608/30/2017 Inactive Cancel 80 mg tab lisinopril 20 mg tablet RxNorm: 619148 1 Tablet(s) PO BID 08/1212/22/2016 Inactive Synthroid 88 mcg tablet RxNorm: 540831 1 Tablet(s) PO TAKE ONE (1) TABLET BY MOUTH DAILY 07/28/2016 12/24/2016 Inactive decrease dose hydralazine 25 mg tablet RxNorm: 852682 1 Tablet(s) PO TID as needed for Systolic blood pressure over 170 07/06/20162016 Inactive lisinopril 20 mg tablet RxNorm: 817526 1 Tablet(s) PO BID to replace your other lisinopril dose 07/06/2016 08/04/2016 Inactive lisinopril 10 mg tablet RxNorm: 966298 TAKE ONE TABLET BY MOUTH TWICE DAILY 06/10/2016 08/11/2016 Inactive Generic For:ZESTRIL 10 MG TABLET 06/09/2016 12:58: 50 PM triamcinolone acetonide 0.1 % topical cream RxNorm: 6250426 1 Application TOP TID as needed 06/01/2016 No Stop Date Active nystatin 100,000 unit/gram topical cream RxNorm: 394150 1 Gram(s) TOP TID as needed 06/01/2016 No Stop Date Active metoprolol succinate ER 50 mg tablet,extended release 24 hr RxNorm: 797282 1 Tablet(s) PO daily 05/26/2016 12/21/2016 Inactive cetirizine 10 mg tablet RxNorm: 9053645 1 Tablet(s) PO daily 10/18/2016 Inactive Synthroid 88 mcg tablet RxNorm: 898643 1 Tablet(s) PO TAKE ONE (1) TABLET BY MOUTH DAILY 03/06/2016 03/07/2018 Inactive Brand name only! Synthroid 88 mcg tablet RxNorm: 709617 1 Tablet(s) PO TAKE ONE (1) TABLET BY MOUTH DAILY 03/04/2016 03/05/2016 Inactive decrease dose cetirizine 10 mg tablet RxNorm: 4376146 1 Tablet(s) PO daily 03/22/2016 Inactive amoxicillin 500 mg capsule RxNorm: 822495 1 Capsule(s) PO TID 02/27/2016 03/04/2016 Inactive lisinopril 10 mg tablet RxNorm: 772559 TAKE ONE TABLET BY MOUTH TWICE DAILY 02/06/2016 06/04/2016 Inactive Generic For:ZESTRIL 10 MG TABLET 02/06/2016 12:16: 38 PM Synthroid 100 mcg tablet RxNorm: 491866 TAKE ONE (1) TABLET BY MOUTH DAILY 01/03/2016 03/03/2016 Inactive 01/03/2016 10:35:14 AM N O T I C E Last quantity doesn't match original quantity lisinopril 10 mg tablet RxNorm: 017781 1 Tablet(s) PO BID 10/0301/31/2016 Inactive Synthroid 100 mcg tablet RxNorm: 697873 1 Tablet(s) PO daily 01/02/2016 Inactive metoprolol succinate ER 50 mg tablet,extended release 24 hr RxNorm: 177863 1 Tablet(s) PO daily 10/04/2015 04/30/2016 Inactive Tylenol Arthritis 650 mg tablet,extended release RxNorm: 1390042 2 Tablet(s) PO TID 09/10/2015 No Stop Date Active metoprolol succinate ER 50 mg tablet,extended release 24 hr RxNorm: 887406 1 Tablet(s) PO daily 09/05/2015 10/03/2015 Inactive pravastatin 80 mg tablet RxNorm: 482903 1 Tablet(s) PO QHS 08/30/2015 Inactive pravastatin 40 mg tablet RxNorm: 048784 1 Tablet(s) PO BID 08/29/2015 Inactive Cancel 80 mg tab pravastatin 40 mg tablet RxNorm: 338552 1 Tablet(s) PO BID 08/19/2016 Inactive Cancel 80 mg tab lisinopril 10 mg tablet RxNorm: 741989 1 Tablet(s) PO BID 06/1308/11/2016 Inactive lisinopril 10 mg tablet RxNorm: 826813 1 Tablet(s) PO BID 06/1310/03/2015 Inactive Synthroid 100 mcg tablet RxNorm: 844878 1 Tablet(s) PO daily 10/03/2015 Inactive ceftriaxone 1 gram solution for injection RxNorm: 1612892 Inj 03/01/2015 03/01/2015 Inactive ceftriaxone 1 gram solution for injection RxNorm: 4436318 Inj 02/28/2015 02/28/2015 Inactive ceftriaxone 1 gram solution for injection RxNorm: 5673686 Inj 02/27/2015 02/27/2015 Inactive ceftriaxone 1 gram solution for injection RxNorm: 4434772 Inj 02/26/2015 02/26/2015 Inactive ceftriaxone 1 gram solution for injection RxNorm: 0636074 Inj 02/25/2015 02/25/2015 Inactive phenazopyridine 200 mg tablet RxNorm: 0116697 1 Tablet(s) PO Q8 02/21/2015 02/20/2015 Inactive Cipro 500 mg tablet RxNorm: 010013 1 Tablet(s) PO BID 201402/20/2015 Inactive phenazopyridine 200 mg tablet RxNorm: 3746477 1 Tablet(s) PO Q8 02/21/2015 02/25/2015 Inactive Cipro 500 mg tablet RxNorm: 295782 1 Tablet(s) PO BID 201402/27/2015 Inactive lisinopril 10 mg tablet RxNorm: 582880 1 Tablet(s) PO BID 02/1406/12/2015 Inactive metoprolol succinate ER 50 mg tablet,extended release 24 hr RxNorm: 953072 3/4 Tablet(s) PO daily 02/11/2015 09/04/2015 Inactive Voltaren 1 % topical gel RxNorm: 268952 2 Gram(s) TOP QID use this on affected joints up to four times daily. 02/11/2015 03/12/2015 Inactive Probiotic oral RxNorm : 6205 oral No Start Date Active aspirin 81 mg tablet RxNorm: 742747 1 Tablet(s) PO daily No Start Date Active Super B-Complex tablet RxNorm: 1 Tablet(s) PO No Start Date Active Flonase Allergy Relief 50 mcg/actuation nasal spray, suspension RxNorm: 7432266 1 [place] NASAL BID No Start Date Active Super-D3+ oral RxNorm : oral No Start Date Active Prilosec OTC 20 mg tablet,delayed release RxNorm: 361657 2 Tablet(s) PO QAM No Start Date Active Flonase Allergy Relief 50 mcg/actuation nasal spray, suspension RxNorm: 9432115 1 [place] NASAL as needed No Start Date Active Move Free Ultra 40 mg-10 mg-3.3 mg tablet RxNorm: 1 Tablet(s) PO daily No Start Date Active metoprolol tartrate 50 mg tablet RxNorm: 539952 1 Tablet(s) PO daily No Start Date 02/10/2015 Inactive lisinopril 10 mg tablet RxNorm: 840598 1 Tablet(s) PO BID No Start Date 02/13/2015 Inactive pravastatin 80 mg tablet RxNorm: 456188 1 Tablet(s) PO daily No Start Date 08/29/2015 Inactive Synthroid 100 mcg tablet RxNorm: 714159 1 Tablet(s) PO daily No Start Date 06/09/2015 Inactive lisinopril 40 mg tablet RxNorm: 665063 1 Tablet(s) PO BID No Start Date 02/28/2018 Inactive Tylenol Arthritis 650 mg tablet,extended release RxNorm: 5349662 4 Tablet(s) PO daily No Start Date 09/09/2015 Inactive Medication Administered Medication Codes Instructions Start Date Status Kenalog 40 mg/mL suspension for injection RxNorm: 9169812 Milliliter 12/24/2017 No longer Active Kenalog 40 mg/mL suspension for injection RxNorm: 6434271 1Milliliter 03/25/2017 No longer Active Kenalog 40 mg/mL suspension for injection RxNorm: 8363144 Milliliter 12/08/2016 No longer Active ceftriaxone 1 gram solution for injection RxNorm: 8544089 03/01/2015 No longer Active ceftriaxone 1 gram solution for injection RxNorm: 1718525 02/28/2015 No longer Active ceftriaxone 1 gram solution for injection RxNorm: 1822194 02/27/2015 No longer Active ceftriaxone 1 gram solution for injection RxNorm: 1070467 02/26/2015 No longer Active ceftriaxone 1 gram solution for injection RxNorm: 8055812 02/25/2015 No longer Active Immunizations Vaccine Codes Date Status Influenza CVX: 141 01/18/2018 completed Influenza CVX: 141 03/15/2017 completed Influenza CVX: 141 03/18/2016 completed Influenza CVX: 141 02/11/2015 completed Assessments Condition Codes Effective Dates Unspecified mycosis ICD-10: B49 ICD-9: 117.9 03/24/2018 Acute recurrent maxillary sinusitis ICD-10: J01.01 ICD-9: 461.0 03/24/2018 Headache ICD-10: R51 ICD-9: 784.0 03/24/2018 Dysuria ICD-10: R30.0 ICD-9: 788.1 03/24/2018 Otalgia, right ear ICD-10: H92.01 ICD-9: 388.70 03/01/2018 Abnormal findings on diagnostic imaging of other specified body structures ICD-10: R93.89 ICD-9: 793.99 03/01/2018 Other fatigue ICD-10: R53.83 ICD-9: 780.79 03/01/2018 Encounter for general adult medical examination with abnormal findings ICD-10: Z00.01 ICD-9: V70.0 12/24/2017 Other allergic rhinitis ICD-10: J30.89 ICD-9: 477.8 12/24/2017 Acute cystitis with hematuria ICD-10: N30.01 ICD-9: 595.0 11/18/2017 Other acute sinusitis ICD-10: J01.80 ICD-9: 461.8 11/03/2017 Anemia, unspecified ICD-10: D64.9 ICD-9: 285.9 09/27/2017 Pain in left knee ICD-10: M25.562 ICD-9: 719.46 09/22/2017 Other malaise ICD-10: R53.81 ICD-9: 780.79 09/22/2017 Pain in right knee ICD-10: M25.561 [...] and giddiness ICD-10: R42 ICD-9: 780.4 09/28/2016 Acute laryngopharyngitis ICD-10: J06.0 ICD-9: 465.0 02/27/2016 Other specified hypothyroidism ICD-10: E03.8 ICD-9: 244.8 02/27/2016 Encounter for screening mammogram for malignant neoplasm of breast ICD-10: Z12.31 ICD-9: V76.12 09/27/2015 Unspecified osteoarthritis, unspecified site ICD-10: M19.90 ICD-9: 715.90 05/14/2015 Urinary tract infection, site not specified ICD-10: N39.0 ICD-9: 599.0 03/01/2015 Reason For Visit Reason For Visit Effective Dates Notes dysuria 03/24/2018 headache 03/01/2018 Annual Medicare Wellness [...] growth sent to ref lab 11/19/2017 B12 Kbt661 B12 712.00 pg/ml 09/28/2017 C-Reactive Protein Qnt Crqnt CRP 0.1 mg/dl 09/23/2017 Comp Metabolic Zum723 NA 139 mEq/L 09/23/2017 Comp Metabolic Qob085 K 4.8 mEq/L 09/23/2017 Comp Metabolic Vbc706 CL 104 mEq/L 09/23/2017 Comp Metabolic Zxg602 CO2 28.0 mEq/L 09/23/2017 Comp Metabolic Wxb777 ANION GAP 12 09/23/2017 Comp Metabolic Nqm035 GLUCOSE 92 mg/dL 09/23/2017 Comp Metabolic Ofh883 Creat 0.7 mg/dL 09/23/2017 Comp Metabolic Mnf989 eGFR 91 ml/min/1.73m2 09/23/2017 Comp Metabolic Xdn958 BUN 11 mg/dL 09/23/2017 Comp Metabolic Msm218 B/C Ratio 16.4 Ratio 09/23/2017 Comp Metabolic Qdd432 CALCIUM 9.0 mg/dL 09/23/2017 Comp Metabolic Fje366 ALK PHOS 76 U/L 09/23/2017 Comp Metabolic Cta539 AST(SGOT) 24 U/L 09/23/2017 Comp Metabolic Xwl737 ALT(SGPT) 21 U/L 09/23/2017 Comp Metabolic Tzj302 BILI T 0.3 mg/dL 09/23/2017 Comp Metabolic Jfm505 ALBUMIN 4.1 g/dL 09/23/2017 Comp Metabolic Ibc747 TPRO 6.2 g/dL 09/23/2017 Comp Metabolic Zxa808 GLOB 2.1 g/dL 09/23/2017 Comp Metabolic Rdx817 A/G Ratio 1.9 Ratio 09/23/2017 Comp Metabolic Fui184 Osmo 277 mOsmo 09/23/2017 Sed Rate Ord21 ESR 3 mm/hr 09/22/2017 Vitamin D 25 Oh Cin2125 VITAMIN D, 25 HYDROXY 78.79 ng/mL Tsh [...] 30.6 pg 09/22/2017 Cbc With Differential Ord2 [place]% 10.5 % 09/22/2017 Cbc With Differential Ord2 [...] 2.37 K/ul 09/22/2017 Cbc With Differential Ord2 [place] ABS# 0.9 K/ul 09/22/2017 Cbc With Differential Ord2 Eos ABS# 0.2 K/ul 09/22/2017 Cbc With Differential Ord2 Baso ABS# 0.0 K/ul 09/22/2017 Free T4 Tpe689 FREE T4 0.99 ng/dL 09/22/2017 %Hba1C Cin409 % HbA1c 30391-0 6.0 % 12/10/2016 %Hba1C Xpg584 Gluc Ave 126 mg/dL 12/10/2016 Tsh Ord6 hTSH II 0.89 uIU/mL 12/09/2016 Free T4 Sly195 FREE T4 0.99 ng/dL 12/09/2016 Comp Metabolic Emi667 NA 138 mEq/L 12/09/2016 Comp Metabolic Qon561 K 5.2 mEq/L 12/09/2016 Comp Metabolic Slb225 CL 104 mEq/L 12/09/2016 Comp Metabolic Xai541 CO2 29.0 mEq/L 12/09/2016 Comp Metabolic Fud039 ANION GAP 10 12/09/2016 Comp Metabolic Awl166 GLUCOSE 135 mg/dL 12/09/2016 Comp Metabolic Auw045 Creat 0.8 mg/dL 12/09/2016 Comp Metabolic Hhx674 eGFR 79 ml/min/1.73m2 12/09/2016 Comp Metabolic Ynx849 BUN 18 mg/dL 12/09/2016 Comp Metabolic Dmb104 B/C Ratio 23.7 Ratio 12/09/2016 Comp Metabolic Twn536 CALCIUM 9.5 mg/dL 12/09/2016 Comp Metabolic Cpj679 ALK PHOS 73 U/L 12/09/2016 Comp Metabolic Goe949 AST(SGOT) 24 U/L 12/09/2016 Comp Metabolic Mkk532 ALT(SGPT) 20 U/L 12/09/2016 Comp Metabolic Suc977 BILI T 0.3 mg/dL 12/09/2016 Comp Metabolic Ynp993 ALBUMIN 4.3 g/dL 12/09/2016 Comp Metabolic Yuv928 TPRO 6.4 g/dL 12/09/2016 Comp Metabolic Orb260 GLOB 2.1 g/dL 12/09/2016 Comp Metabolic Snk319 A/G Ratio 2.0 Ratio 12/09/2016 Comp Metabolic Gah415 Osmo 280 mOsmo 12/09/2016 Cbc With Differential [...] 31.3 pg 12/09/2016 Cbc With Differential Ord2 [place]% 6.5 % 12/09/2016 Cbc With Differential Ord2 [...] 1.84 K/ul 12/09/2016 Cbc With Differential Ord2 [place] ABS# 0.6 K/ul 12/09/2016 Cbc With Differential Ord2 Eos ABS# 0.1 K/ul 12/09/2016 Cbc With Differential Ord2 Baso ABS# 0.1 K/ul 12/09/2016 Tsh Ord6 hTSH II 1.19 uIU/mL 09/02/2016 Free T4 Syq371 FREE T4 0.97 ng/dL 09/02/2016 Comp Metabolic Iml238 NA 137 mEq/L 06/01/2016 Comp Metabolic Trz846 K 4.1 mEq/L 06/01/2016 Comp Metabolic Zof586 CL 104 mEq/L 06/01/2016 Comp Metabolic Onp041 CO2 25.0 mEq/L 06/01/2016 Comp Metabolic Vwe022 ANION GAP 12 06/01/2016 Comp Metabolic Pgp033 GLUCOSE 108 mg/dL 06/01/2016 Comp Metabolic Dgo358 Creat 0.8 mg/dL 06/01/2016 Comp Metabolic Ndn358 eGFR 80 ml/min/1.73m2 06/01/2016 Comp Metabolic Ekn662 BUN 15 mg/dL 06/01/2016 Comp Metabolic Byk032 B/C Ratio 20.0 Ratio 06/01/2016 Comp Metabolic Fwb623 CALCIUM 9.1 mg/dL 06/01/2016 Comp Metabolic Lox017 ALK PHOS 89 U/L 06/01/2016 Comp Metabolic Gtd209 AST(SGOT) 25 U/L 06/01/2016 Comp Metabolic Vgc417 ALT(SGPT) 20 U/L 06/01/2016 Comp Metabolic Qub591 BILI T 0.3 mg/dL 06/01/2016 Comp Metabolic Pke356 ALBUMIN 4.2 g/dL 06/01/2016 Comp Metabolic Bay354 TPRO 6.2 g/dL 06/01/2016 Comp Metabolic Plb004 GLOB 2.0 g/dL 06/01/2016 Comp Metabolic Dyp075 A/G Ratio 2.1 Ratio 06/01/2016 Comp Metabolic Hap798 Osmo 275 mOsmo 06/01/2016 Free T4 Hkm773 FREE T4 0.94 ng/dL 06/01/2016 Tsh Ord6 [...] 31.1 pg 06/01/2016 Cbc With Differential Ord2 [place]% 8.4 % 06/01/2016 Cbc With Differential Ord2 [...] 2.96 K/ul 06/01/2016 Cbc With Differential Ord2 [place] ABS# 0.6 K/ul 06/01/2016 Cbc With Differential [...] 31.3 pg 02/27/2016 Cbc With Differential Ord2 [place]% 10.0 % 02/27/2016 Cbc With Differential Ord2 [...] 2.28 K/ul 02/27/2016 Cbc With Differential Ord2 [place] ABS# 0.9 K/ul 02/27/2016 Cbc With Differential Ord2 Eos ABS# 0.3 K/ul 02/27/2016 Cbc With Differential Ord2 Baso ABS# 0.1 K/ul 02/27/2016 Tsh Ord6 hTSH II 0.18 uIU/mL 02/27/2016 Free T4 Fag468 FREE T4 1.17 ng/dL 02/27/2016 Comp Metabolic Tjh133 NA 135 mEq/L 02/27/2016 Comp Metabolic Ivg471 K 5.2 mEq/L 02/27/2016 Comp Metabolic Myb657 CL 102 mEq/L 02/27/2016 Comp Metabolic Xeu255 CO2 27.0 mEq/L 02/27/2016 Comp Metabolic Gux634 ANION GAP 11 02/27/2016 Comp Metabolic Fjv493 GLUCOSE 93 mg/dL 02/27/2016 Comp Metabolic Dpq239 Creat 0.7 mg/dL 02/27/2016 Comp Metabolic Mco390 eGFR 91 ml/min/1.73m2 02/27/2016 Comp Metabolic Yrp214 BUN 14 mg/dL 02/27/2016 Comp Metabolic Oid787 B/C Ratio 20.9 Ratio 02/27/2016 Comp Metabolic Uuh873 CALCIUM 9.4 mg/dL 02/27/2016 Comp Metabolic Hdt252 ALK PHOS 100 U/L 02/27/2016 Comp Metabolic Xge832 AST(SGOT) 23 U/L 02/27/2016 Comp Metabolic Hel741 ALT(SGPT) 24 U/L 02/27/2016 Comp Metabolic Ljx115 BILI T 0.2 mg/dL 02/27/2016 Comp Metabolic Hha371 ALBUMIN 4.3 g/dL 02/27/2016 Comp Metabolic Uac823 TPRO 6.3 g/dL 02/27/2016 Comp Metabolic Soi312 GLOB 2.1 g/dL 02/27/2016 Comp Metabolic Sgs222 A/G Ratio 2.1 Ratio 02/27/2016 Comp Metabolic Pnp639 Osmo 270 mOsmo 02/27/2016 Free T4 Alp485 FREE T4 1.03 ng/dL 05/10/2015 Comp Metabolic Ngl136 NA 137 mEq/L 05/10/2015 Comp Metabolic Wgs842 K 4.4 mEq/L 05/10/2015 Comp Metabolic Nmc941 CL 102 mEq/L 05/10/2015 Comp Metabolic Zka100 CO2 28.0 mEq/L 05/10/2015 Comp Metabolic Als000 ANION GAP 11 05/10/2015 Comp Metabolic Fkc747 GLUCOSE 108 mg/dL 05/10/2015 Comp Metabolic Wmw876 Creat 0.7 mg/dL 05/10/2015 Comp Metabolic Hxn168 eGFR 86 ml/min/1.73m2 05/10/2015 Comp Metabolic Njv778 BUN 13 mg/dL 05/10/2015 Comp Metabolic Vzx376 B/C Ratio 18.3 Ratio 05/10/2015 Comp Metabolic Jpx543 CALCIUM 9.4 mg/dL 05/10/2015 Comp Metabolic Myu108 ALK PHOS 94 U/L 05/10/2015 Comp Metabolic Ybm618 AST(SGOT) 22 U/L 05/10/2015 Comp Metabolic Dyd894 ALT(SGPT) 21 U/L 05/10/2015 Comp Metabolic Uiv426 BILI T 0.3 mg/dL 05/10/2015 Comp Metabolic Efu324 ALBUMIN 3.9 g/dL 05/10/2015 Comp Metabolic Yyx641 TPRO 6.1 g/dL 05/10/2015 Comp Metabolic Zfx504 GLOB 2.2 g/dL 05/10/2015 Comp Metabolic Yeg680 A/G Ratio 1.7 Ratio 05/10/2015 Comp Metabolic Tly870 Osmo 274 mOsmo 05/10/2015 Tsh Ord6 hTSH [...] 29.4 pg 05/10/2015 Cbc With Differential Ord2 [place]% 9.0 % 05/10/2015 Cbc With Differential Ord2 [...] 2.14 K/ul 05/10/2015 Cbc With Differential Ord2 [place] ABS# 0.5 K/ul 05/10/2015 Cbc With Differential [...] Ord30 C/HDL 3.8 Ratio 05/10/2015 Culture Urine [id number] URINE CULTURE SEE NOTES 02/25/2015 Culture Urine [id number] Continued Results 02/25/2015 Urine Culture Ucult Complete >100,000 col/ml aerobic growth sent to ref lab 02/22/2015 Free T4 [id number] FREE T4 1.16 ng/dL 02/11/2015 Tsh Ord6 hTSH II 0.51 uIU/mL 02/11/2015 Review of Systems System Result Effective Dates Constitutional No insomnia 03/24/2018 Constitutional malaise 03/24/2018 [...] time 03/01/2018 None Full Exam - General [facility] Constitutional general appearance Overall: well developed 12/24/2017 [...] lips 12/24/2017 None Full Exam - General 1995 Respiratory respiratory effort/rhythm Overall: no retractions 12/24/2017 [...] 1995 Eyes conjunctiva /eyelids Overall: conjunctiva clear 09/22/2017 [...] Codes Date URINALYSIS NONAUTO W/O SCOPE CPT-4: 45699 03/24/2018 PPPS, SUBSEQ VISIT CPT -4: G0439 12/24/2017 THER/PROPH/DIAG INJ SC/IM CPT-4: 18152 12/24/2017 TRIAMCINOLONE ACET INJ NOS CPT-4: J3301 12/24/2017 THER/PROPH/DIAG INJ SC/IM CPT-4: 84476 11/18/2017 ROCEPHIN, PER 250 MG CPT-4: J0696 11/18/2017 PRESCRIP TRANSMIT VIA ERX SY CPT-4: G8553 04/01/2017 TRIAMCINOLONE ACET INJ NOS CPT-4: J3301 03/25/2017 PPPS, SUBSEQ VISIT CPT -4: G0439 12/23/2016 THER/PROPH/DIAG INJ SC/IM CPT-4: 36631 12/08/2016 TRIAMCINOLONE ACET INJ NOS CPT-4: J3301 12/08/2016 PRESCRIP TRANSMIT VIA ERX SY CPT-4: G8553 12/08/2016 PRESCRIP TRANSMIT VIA ERX SY CPT-4: G8553 11/30/2016 URINALYSIS NONAUTO W/O SCOPE CPT-4: 44729 07/08/2016 PRESCRIP TRANSMIT VIA ERX SY CPT-4: G8553 06/01/2016 PRESCRIP TRANSMIT VIA ERX SY CPT-4: G8553 02/27/2016 THER/PROPH/DIAG INJ SC/IM CPT-4: 42592 03/01/2015 ROCEPHIN, PER 250 MG CPT-4: J0696 03/01/2015 THER/PROPH/DIAG INJ SC/IM CPT-4: 41272 02/28/2015 ROCEPHIN, PER 250 MG CPT-4: J0696 02/28/2015 THER/PROPH/DIAG INJ SC/IM CPT-4: 79020 02/27/2015 ROCEPHIN, PER 250 MG CPT-4: J0696 02/27/2015 THER/PROPH/DIAG INJ SC/IM CPT-4: 23241 02/26/2015 ROCEPHIN, PER 250 MG CPT-4: J0696 02/26/2015 THER/PROPH/DIAG INJ SC/IM CPT-4: 74767 02/25/2015 ROCEPHIN, PER 250 MG CPT-4: J0696 02/25/2015 URINALYSIS NONAUTO W/O SCOPE CPT-4: 90956 02/21/2015 Vital Signs Date Vital 03/24/2018 Blood Pressure 1: 128/82 Code : 8480-6 BMI: 27.8 Code : 34579-6 Heart Rate 1 : 84 bpm Height: 5'3" SpO2: 97% Weight: 157 lbs 03/01/2018 Blood Pressure 1: 136/70 Code : 8480-6 BMI: 27.8 Code : 92698-7 Heart Rate 1 : 70 bpm Height: 5'3" SpO2: 96% Weight: 157 lbs 12/24/2017 Height: Weight: 11/18/2017 Blood Pressure 1: 164/74 Code : 8480-6 BMI: 27.6 Code : 14619-3 Heart Rate 1 : 70 bpm Height: 5'3" SpO2: 96% Weight: 156 lbs 11/03/2017 Blood Pressure 1: 118/72 Code : 8480-6 BMI: 27.6 Code : 44002-7 Heart Rate 1 : 82 bpm Height: 5'3" SpO2: 96% Weight: 156 lbs 09/22/2017 Blood Pressure 1: 136/68 Code : 8480-6 BMI: 27.6 Code : 92887-6 Heart Rate 1 : 70 bpm Height: 5'3" SpO2: 97% Weight: 156 lbs 04/01/2017 Blood Pressure 1: 144/82 Code : 8480-6 Heart Rate 1: 68 bpm Height: 5'3" SpO2: 97% Weight: 03/25/2017 Blood Pressure 1: 116/70 Code : 8480-6 BMI: 26.7 Code : 66556-7 Heart Rate 1 : 67 bpm Height: 5'3" SpO2: 98% Weight: 151 lbs 12/23/2016 BMI: 26.7 Code: 15825-5 Height: 5'3" Weight: 151 lbs 12/22/2016 Blood Pressure 1: 142/60 Code : 8480-6 BMI: 26.7 Code : 68057-6 Heart Rate 1 : 67 bpm Height: 5'3" SpO2: 98% Weight: 151 lbs 12/08/2016 Blood Pressure 1: 140/72 Code : 8480-6 Heart Rate 1: 72 bpm Height: 5'3" SpO2: 97% Weight: 11/30/2016 Blood Pressure 1: 128/80 Code : 8480-6 BMI: 26.7 Code : 18004-9 Heart Rate 1 : 63 bpm Height: 5'3" SpO2: 96% Weight: 151 lbs 09/28/2016 Blood Pressure 1: 130/80 Code : 8480-6 BMI: 27.1 Code : 83358-3 Heart Rate 1 : 80 bpm Height: 5'3" SpO2: 97% Weight: 153 lbs 07/06/2016 Blood Pressure 1: 162/72 Code : 8480-6 BMI: 27.6 Code : 72811-5 Heart Rate 1 : 72 bpm Height: 5'3" SpO2: 98% Weight: 156 lbs 06/01/2016 Blood Pressure 1: 122/66 Code : 8480-6 BMI: 27.5 Code : 01660-8 Heart Rate 1 : 73 bpm Height: 5'3" SpO2: 98% Weight: 155 lbs 8 oz 02/27/2016 Blood Pressure 1: 126/68 Code : 8480-6 BMI: 26.9 Code : 99859-0 Heart Rate 1 : 70 bpm Height: 5'3" SpO2: 98% Weight: 152 lbs 09/10/2015 Blood Pressure 1: 130/70 Code : 8480-6 BMI: 26.9 Code : 37242-4 Heart Rate 1 : 72 bpm Height: 5'3" SpO2: 97% Weight: 152 lbs 05/14/2015 Blood Pressure 1: 138/82 Code : 8480-6 BMI: 26.4 Code : 76118-9 Heart Rate 1 : 75 bpm Height: 5'3" SpO2: 98% Weight: 149 lbs 02/11/2015 Blood Pressure 1: 128/72 Code : 8480-6 BMI: 25.5 Code : 68654-9 Heart Rate 1 : 73 bpm Height: 5'3" SpO2: 94% Weight: 144 lbs Functional Status No Functional Status data History of Present Illness Symptom Name Status Result Effective Date Notes Quality intermittent 03/24/2018 None Onset and Resolution [...] data Encounters Encounter Performer Location Codes Date (213 EST. 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 PATIENT, LEVEL IV Diagnosis: Otalgia, right ear[ICD10: H92.01] Diagnosis: Headache[ICD10: R51] Diagnosis: Other fatigue[ICD10: R53.83] Diagnosis: Abnormal findings on diagnostic imaging of other specified body structures[ICD10: R93.89] Elen Cortez MD, [facility] CPT-4: 65086 03/01/2018 37160 EST. PATIENT, LEVEL III Diagnosis: Acute cystitis with hematuria[ICD10: N30.01] Bridget Cortez MD, [facility] CPT-4: 33892 11/18/2017 23726 EST. PATIENT, LEVEL IV Diagnosis: Other acute sinusitis[ICD10: J01.80] Diagnosis: Otalgia, right ear[ICD10: H92.01] Bridget Cortez MD, [facility] CPT -4: 18751 11/03/2017 20577 EST. PATIENT, LEVEL III Diagnosis: Other fatigue[ICD10: R53.83] Diagnosis: Other malaise[ICD10: R53.81] Diagnosis: Pain in left knee[ICD10: M25.562] Diagnosis: Pain in right knee[ICD10: M25.561] Bridget Cortez MD, [facility] CPT-4: 93131 09/22/2017 ([id number]) 86058 EST. PATIENT, LEVEL III Diagnosis: Cough[ICD10: R05] Diagnosis: Acute bronchitis due to other specified organisms[ICD10: J20.8] Elen Cortez MD, [facility] CPT-4: 51931 04/01/2017 ([id number]) 33678 EST. PATIENT, LEVEL III Diagnosis: Otalgia, right ear[ICD10: H92.01] Diagnosis: Other allergic rhinitis[ICD10: J30.89] Shiela Cortez MD, [facility] CPT-4: 60143 03/25/2017 ([id number]) 78981 EST. PATIENT, LEVEL III Diagnosis: Benign paroxysmal vertigo, bilateral[ICD10: H81.13] Shiela Cortez MD, [facility] CPT-4: 88420 12/22/2016 ([id number]) 55668 EST. PATIENT, LEVEL IV Diagnosis: Benign paroxysmal vertigo, bilateral[ICD10: H81.13] Diagnosis: Other allergic rhinitis[ICD10: J30.89] Diagnosis: Hypothyroidism, unspecified[ICD10: E03.9] Shiela Cortez MD, [facility] CPT-4: 28752 12/08/2016 ([id number]) 36517 EST. PATIENT, LEVEL IV Diagnosis: Atrophy of thyroid (acquired)[ICD10: E03.4] Diagnosis: Essential (primary) hypertension[ICD10: I10] Diagnosis: Mixed hyperlipidemia[ICD10: E78.2] Elen Cortez MD, [facility] CPT-4: 33735 11/30/2016 27110 EST. PATIENT, LEVEL IV Diagnosis: Headache[ICD10: R51] Diagnosis: Other fatigue[ICD10: R53.83] Diagnosis: Dizziness and giddiness[ICD10: R42] Bridget Cortez MD, [facility] CPT-4: 79383 09/28/2016 21713 EST. PATIENT, LEVEL IV Diagnosis: Essential (primary) hypertension[ICD10: I10] Diagnosis: Headache[ICD10: R51] Bridget Cortez MD, [facility] CPT-4: 30347 07/06/2016 ([id number]) 47162 EST. PATIENT, LEVEL IV Diagnosis: Essential (primary) hypertension[ICD10: I10] Diagnosis: Atrophy of thyroid (acquired)[ICD10: E03.4] Diagnosis: Mixed hyperlipidemia[ICD10: E78.2] Elen Cortez MD, [facility] CPT-4: 62308 06/01/2016 08831 EST. PATIENT, LEVEL IV Diagnosis: Acute laryngopharyngitis[ICD10: J06.0] Diagnosis: Other allergic rhinitis[ICD10: J30.89] Diagnosis: Other specified hypothyroidism[ICD10: E03.8] Diagnosis: Other fatigue[ICD10: R53.83] [facility] CPT-4 : 96996 02/27/2016 ([id number]) 47637 EST. PATIENT, LEVEL III Diagnosis: Essential (primary) hypertension[ICD10: I10] Diagnosis: Mixed hyperlipidemia[ICD10: E78.2] [facility] CPT-4: 20784 09/10/2015 ([id number]) 69098 EST. PATIENT, LEVEL IV Diagnosis: Essential (primary) hypertension[ICD10: I10] Diagnosis: Hypothyroidism, unspecified[ICD10: E03.9] Diagnosis: Unspecified osteoarthritis, unspecified site[ICD10: M19.90] [facility] CPT-4: 56873 05/14/2015 ([id number]) OFFICE VISIT, NEW - LEVEL 4 Diagnosis: Essential (primary) hypertension[ICD10: I10] Diagnosis: Hypothyroidism, unspecified[ICD10: E03.9] Diagnosis: Unspecified osteoarthritis, unspecified site[ICD10: M19.90] [facility] CPT-4: 39345 02/11/2015 Plan of Care Planned Activity Notes Codes Status Date Visit Plan: Sinusitis - Pt has acute infection - pain in face, maxillary region, Pt informed to use decongestant, RX given to patient, sinus rinses also recommended. Call if symptoms do not show improvement. Dysuria - rx for antibiotic sent to pharmacy. 03/24/2018 Patient Education: Patient Medication Summary Completed 03/24/2018 Care Plan: Urine Culture Pending 03/24/2018 Visit Plan: Hypertension - well controlled [...] improve. 03/01/2018 [phone] [facility] (15 min) Moderate 03/01/2018 Patient Education: [...] spray. 12/24/2017 Appointment: [phone] [facility] [facility] - Annual Wellness Visit 12/24/2017 Patient Education: Patient Medication Summary Completed 12/24/2017 Appointment: [facility]azco [facility]el[phone] [facility] (15 min) Moderate 11/30/2017 Appointment: Lab Draw [...] improve. 11/18/2017 Appointment: Bridget Velazco WPtel: [phone] [facility] (15 min) Moderate 11/18/2017 Patient Education: Patient Medication Summary Completed 11/18/2017 Visit Plan: Sinusitis - Pt has acute infection - pain in face, maxillary region, Pt informed to use decongestant, RX given to patient, sinus rinses also recommended. Call if symptoms do not show improvement. 11/03/2017 Appointment: Bridget Velazco WPtel: [phone] [facility] (15 min) Moderate 11/03/2017 Patient Education: Patient [...] improve. 09/22/2017 Appointment: Bridget Velazco WPtel: [phone] [facility] (15 min) Moderate 09/22/2017 Patient Education: Patient Medication Summary Completed 09/22/2017 Visit Plan: Bronchitis - acute case of bronchitis identified. Pt has been given antibiotics, breathing treatments as appropriate, and pt has been instructed to call if symptoms are not improved, or if symptoms acutely worsen. 04/01/2017 Appointment: Elen Cortez WPtel: [phone] [facility] (15 [...] spray. 03/25/2017 Appointment: Shiela Srivastava WPtel: [phone] (10 min) Simple 03/25/2017 Appointment: Elen Cortez WPtel: [address] [place], [place] [phone] (15 min) Moderate 03/25/2017 Patient Education: Patient [...] care surrogate. 12/23/2016 Appointment: Bridget Velazco WPtel: [address] [place], [place] [phone] [place] [address] - Annual Wellness Visit 12/23/2016 Patient Education: Patient Medication Summary Completed 12/23/2016 Visit Plan: Vertigo-discussed PT for vestibular exercises- patient wants to wait since symptoms are improving-continue anti histamine as directed-meclizine as needed 12/22/2016 Appointment: Sihela Srivastava WPtel: [address] [place], [place] [phone] (30 min) Complex 12/22/2016 Patient Education: Patient [...] of control. 12/08/2016 Appointment: Shiela Srivastava WPtel: [phone] (30 min) [facility] 12/08/2016 Patient Education: Patient Medication Summary Completed [...] to medications. 11/30/2016 Appointment: [facility]el[phone] [facility] (15 min) Moderate 11/30/2016 Patient Education: [...] concerns. 09/28/2016 Appointment: Bridget Velazco WPtel: [phone] [facility] (30 min) Complex 09/28/2016 Patient Education: Patient [...] acute concerns. 07/06/2016 Appointment: [facility] Velazco [facility]Ptel: [phone] [facility] (15 min) Moderate 07/06/2016 Patient Education: [...] improving 06/01/2016 Appointment: [facility]Ptel[facility] [phone] [facility] (15 min) Moderate 06/01/2016 Patient Education: [...] labs 02/27/2016 Appointment: Bridget Velazco WPtel: [facility] (30 min) Complex 02/27/2016 Patient Education: Patient Medication Summary Completed 02/27/2016 Patient Education: Patient Medication Summary Completed 09/27/2015 Care Plan: SCREENINGMAMMOGRAPHYDIGITAL LOINC : 96291-3 Pending 09/27/2015 Visit Plan: Hypertension - well [...] colonoscopy 09/10/2015 Appointment: [facility]Ptel[facility] [phone] [facility] (15 min) Moderate 09/10/2015 Patient Education: [...] Sanchez. 05/14/2015 Appointment: [facility] Cortez [facility]Ptel[facility] [phone] [facility] [place] (15 min) Moderate 05/14/2015 Patient Education: Patient Medication Summary Completed 05/14/2015 Patient Education: Hypertension Completed 05/14/2015 Care Plan: Referral Order SNOMED-CT : [id number] Ordered 05/14/2015 Patient Education: Patient Medication Summary Completed 03/01/2015 Appointment: Nurse Visit 02/28/2015 Patient Education: Patient Medication Summary Completed 02/28/2015 Patient Education: Patient Medication Summary Completed 02/27/2015 Appointment: Nurse Visit 02/26/2015 Patient Education: Patient Medication Summary Completed 02/26/2015 Appointment: Injection 02/25/2015 Patient Education: Patient Medication Summary Completed 02/25/2015 Patient Education: Patient Medication Summary Completed 02/21/2015 Care Plan: URINALYSIS NONAUTO W/O [facility]OPE [facility] : 67976-8 Ordered 02/21/2015 Visit Plan: Hypertension - well [...] pain symptoms. 02/11/2015 Appointment: Elen Cortez WPtel: [address] [place], [place] [address] New Patient 02/11/2015 Patient Education: Patient Medication [...]
--- OUTSIDE RECORDS SUMMARY | 2018-06-01 13:16 | XMS REPORT | CCD ---
Author Author [facility] Organization [facility] Address [address] [place] [address] Phone Care Team Providers Care Assistant Women'[employer]ing [employer] Name Role Phone PP Unavailable CCM Unavailable Summary Purpose Interface Exchange Insurance Providers Payer name Policy type / Coverage type Covered libertarian ID Effective Begin Date Effective End Date WPS Medicare Part B Medicare Part B [id number] Unknown [place] Long-Term Life Insurance Medicare Part B [id number] Unknown Family history Mother Diagnosis Age At [...] spouses - 02/11/[address]: 588012767 Never smoker 02/11/2015 Alcohol history Unknown occasionally drinks alcohol 02/11/2015 Allergies, Adverse Reactions, Alerts Substance Reaction Codes Entered Date Inactivated Date Status CODEINE RxNorm: 2670 02/11/2015 No Inactive Date Active allergy Unknown 12/23/2016 No Inactive Date Active ciprofloxacin rash, RxNorm: 09203 02/26/2015 No Inactive Date Active hydrocodone Unknown 02/11/2015 No Inactive Date Active GABAPENTIN Unknown 12/23/2016 No Inactive Date Active SULFA (SULFONAMIDES) Unknown 02/11/2015 No Inactive Date Active Past Medical History Illness Codes Condition Status Onset Date Resolved Date Abnormal findings on diagnostic imaging of other specified body structures ICD-9: 793.99 ICD-10: R93.89 Active 03/01/2018 Unknown Headache ICD-9: 784.0 ICD-10: R51 Active 07/06/2016 Unknown Otalgia, right ear ICD -9: 388.70 [...] ICD-9: 788.1 ICD-10: R30.0 Active 02/20/2015 Unknown Other specified hypothyroidism ICD-9: 244.8 ICD-10: [...] Problems Condition Codes Effective Dates Condition Status Abnormal findings on diagnostic imaging of other specified body structures ICD-9: 793.99 ICD-10: R93.89 03/01/2018 Active Headache ICD-9: 784.0 ICD-10: R51 07/06/2016 Active Otalgia, right ear ICD -9: 388.70 [...] Dysuria ICD-9: 788.1 ICD-10: R30.0 02/20/2015 Active Other specified hypothyroidism ICD-9: 244.8 ICD-10: [...] 50 mg tablet,extended release 24 hr RxNorm: 227807 Tablet (s) TAKE 1 TABLET BY MOUTH DAILY 03/21/2018 10/16/2018 Active PLEASE SEND REFILL REQUESTS ELECTRONICALLY!! Synthroid 88 mcg tablet RxNorm: 679220 TAKE 1 TABLET BY MOUTH DAILY 03/08/2018 08/04/2018 Active 03/07/2018 11:21:21 AM pravastatin 80 mg tablet RxNorm: 657053 Tablet(s) 1 Tablet(s) PO daily 03/01/2018 02/23/2019 Active Kenalog 40 mg/mL suspension for injection RxNorm: 6890727 Milliliter(s) Inj 12/24/2017 12/24/2017 Inactive cetirizine 10 mg tablet RxNorm: 6868399 TAKE 1 TABLET BY MOUTH DAILY 12/21/2017 07/18/2018 Active Generic For:*ZYRTEC 10 MG TABLET 12/21/2017 10:08:05 AM Synthroid 88 mcg tablet RxNorm: 576567 TAKE 1 TABLET BY MOUTH DAILY 12/07/2017 03/06/2018 Inactive 12/06/2017 11:46:49 AM Lipitor 80 mg tablet RxNorm: 480507 1 Tablet(s) PO daily 201702/28/2018 Inactive pravastatin 80 mg tablet RxNorm: 264798 1 Tablet(s) PO daily 11/29/2017 Inactive Lipitor 80 mg tablet RxNorm: 354472 1 Tablet(s) PO daily 201711/28/2017 Inactive lisinopril 20 mg tablet RxNorm: 200831 TAKE 1 TABLET BY MOUTH TWICE DAILY 11/23/2017 04/21/2018 Active Generic For:*PRINIVIL 20 MG TABLET 11/23/2017 11:29:44 AM Macrobid 100 mg capsule RxNorm: 514734 1 Capsule(s) PO BID 06/201711/25/2017 Inactive Macrobid 100 mg capsule RxNorm: 485450 1 Capsule(s) PO BID 06/201711/18/2017 Inactive Lomotil 2.5 mg-0.025 mg tablet RxNorm: 7760483 1 -2 Tablet(s) PO TID as needed 11/19/2017 11/25/2017 Inactive Lomotil 2.5 mg-0.025 mg tablet RxNorm: 2887662 1 -2 Tablet(s) PO TID as needed 11/19/2017 11/18/2017 Inactive Pyridium 200 mg tablet RxNorm: 9584610 1 Tablet(s) PO TID as needed 11/18/2017 11/22/2017 Inactive Augmentin 500 mg-125 mg tablet RxNorm: 856107 1 Tablet(s) PO TID 11/18/2017 11/27/2017 Inactive Keflex 500 mg capsule RxNorm: 978431 1 Capsule(s) PO TID 201711/09/2017 Inactive Denavir 1 % topical cream RxNorm: 174853 1 TOP TID as needed cold sores 11/01/2017 01/29/2018 Inactive Denavir 1 % topical cream RxNorm: 018113 1 TOP TID as needed cold sores 11/01/2017 10/31/2017 Inactive Synthroid 88 mcg tablet RxNorm: 923182 TAKE 1 TABLET BY MOUTH DAILY 09/29/2017 11/27/2017 Inactive 09/29/2017 12:58:07 PM pravastatin 80 mg tablet RxNorm: 707836 1 Tablet(s) PO daily 08/30/2017 Inactive pravastatin 80 mg tablet RxNorm: 257363 1 Tablet(s) PO daily 11/28/2017 Inactive Synthroid 88 mcg tablet RxNorm: 807833 TAKE 1 TABLET BY MOUTH DAILY 08/30/2017 09/28/2017 Inactive 08/30/2017 10:53:26 AM metoprolol succinate ER 50 mg tablet,extended release 24 hr RxNorm: 428565 Tablet (s) TAKE 1 TABLET BY MOUTH DAILY 08/17/2017 03/14/2018 Inactive PLEASE SEND REFILL REQUESTS ELECTRONICALLY!! lisinopril 20 mg tablet RxNorm: 237691 TAKE 1 TABLET BY MOUTH TWICE DAILY 06/18/2017 11/14/2017 Inactive Generic For:*PRINIVIL 20 MG TABLET 06/18/2017 1:31: 00 PM Synthroid 88 mcg tablet RxNorm: 948361 TAKE 1 TABLET BY MOUTH DAILY 05/24/2017 08/21/2017 Inactive 05/24/2017 2:13:21 PM cetirizine 10 mg tablet RxNorm: 9953749 1 Tablet(s) PO daily 12/12/2017 Inactive Zithromax Z-Russell 250 mg capsule RxNorm: 162638 1 Capsule(s) PO 04/02/2017 04/05/2017 Inactive Zithromax Z-Russell 250 mg tablet RxNorm: 570552 1 Tablet(s) PO 04/01/2017 Inactive Zithromax Z-Russell 250 mg capsule RxNorm: 735287 1 Capsule(s) PO 04/02/2017 04/01/2017 Inactive Zithromax Z-Russell 250 mg tablet RxNorm: 163016 1 Tablet(s) PO 04/06/2017 Inactive Ventolin HFA 90 mcg/actuation aerosol inhaler RxNorm: 741461 2 INH QID as needed - for the first 3 days inhale at least two puffs three times daily, then use as needed for shortness of breath 04/01/2017 04/30/2017 Inactive Keflex 500 mg capsule RxNorm: 934612 1 Capsule(s) PO TID 201604/01/2017 Inactive meclizine 25 mg tablet RxNorm: 611556 1 Tablet(s) PO Q6 PRN 1 Tablet(s) PO Q6 PRN 03/25/2017 No Stop Date Active dizziness meclizine 25 mg tablet RxNorm: 694342 Tablet(s) 1 Tablet(s) PO Q6 PRN 03/25/2017 03/24/2017 Inactive dizziness Kenalog 40 mg/mL suspension for injection RxNorm: 6457950 1 Milliliter(s) Inj 03/25/2017 03/25/2017 Inactive meclizine 25 mg tablet RxNorm: 175262 1 Tablet(s) PO Q6 PRN 03/24/2017 Inactive dizziness lisinopril 20 mg tablet RxNorm: 705741 1 Tablet(s) PO BID 01/1506/13/2017 Inactive metoprolol succinate ER 50 mg tablet,extended release 24 hr RxNorm: 842649 TAKE 1 TABLET BY MOUTH DAILY 01/07/20172017 Inactive Generic For:TOPROL XL 50MG TAB 01/07/2017 12:38:23 PM Synthroid 88 mcg tablet RxNorm: 935902 TAKE 1 TABLET BY MOUTH DAILY 12/25/2016 05/23/2017 Inactive 12/25/2016 9:47:08 AM Zithromax Z-Russell 250 mg tablet RxNorm: 566005 Tablet(s) PO UD 03/24/2017 Inactive meclizine 25 mg tablet RxNorm: 427308 1 Tablet(s) PO Q6 PRN 12/20/2016 Inactive dizziness Kenalog 40 mg/mL suspension for injection RxNorm: 3506472 Milliliter(s) Inj 12/08/2016 12/08/2016 Inactive meloxicam 15 mg tablet RxNorm: 676722 1 Tablet(s) PO daily 12/20/2016 Inactive cetirizine 10 mg tablet RxNorm: 2769635 1 Tablet(s) PO daily 05/16/2017 Inactive pravastatin 40 mg tablet RxNorm: 191228 1 Tablet(s) PO BID 07/201608/30/2017 Inactive Cancel 80 mg tab lisinopril 20 mg tablet RxNorm: 648388 1 Tablet(s) PO BID 08/1212/22/2016 Inactive Synthroid 88 mcg tablet RxNorm: 858556 1 Tablet(s) PO TAKE ONE (1) TABLET BY MOUTH DAILY 07/28/2016 12/24/2016 Inactive decrease dose hydralazine 25 mg tablet RxNorm: 769741 1 Tablet(s) PO TID as needed for Systolic blood pressure over 170 07/06/20162016 Inactive lisinopril 20 mg tablet RxNorm: 852221 1 Tablet(s) PO BID to replace your other lisinopril dose 07/06/2016 08/04/2016 Inactive lisinopril 10 mg tablet RxNorm: 888031 TAKE ONE TABLET BY MOUTH TWICE DAILY 06/10/2016 08/11/2016 Inactive Generic For:ZESTRIL 10 MG TABLET 06/09/2016 12:58: 50 PM triamcinolone acetonide 0.1 % topical cream RxNorm: 6775205 1 Application TOP TID as needed 06/01/2016 No Stop Date Active nystatin 100,000 unit/gram topical cream RxNorm: 512654 1 Gram(s) TOP TID as needed 06/01/2016 No Stop Date Active metoprolol succinate ER 50 mg tablet,extended release 24 hr RxNorm: 765723 1 Tablet(s) PO daily 05/26/2016 12/21/2016 Inactive cetirizine 10 mg tablet RxNorm: 1015028 1 Tablet(s) PO daily 10/18/2016 Inactive Synthroid 88 mcg tablet RxNorm: 505094 1 Tablet(s) PO TAKE ONE (1) TABLET BY MOUTH DAILY 03/06/2016 03/07/2018 Inactive Brand name only! Synthroid 88 mcg tablet RxNorm: 002754 1 Tablet(s) PO TAKE ONE (1) TABLET BY MOUTH DAILY 03/04/2016 03/05/2016 Inactive decrease dose cetirizine 10 mg tablet RxNorm: 9598298 1 Tablet(s) PO daily 03/22/2016 Inactive amoxicillin 500 mg capsule RxNorm: 184782 1 Capsule(s) PO TID 02/27/2016 03/04/2016 Inactive lisinopril 10 mg tablet RxNorm: 210347 TAKE ONE TABLET BY MOUTH TWICE DAILY 02/06/2016 06/04/2016 Inactive Generic For:ZESTRIL 10 MG TABLET 02/06/2016 12:16: 38 PM Synthroid 100 mcg tablet RxNorm: 134067 TAKE ONE (1) TABLET BY MOUTH DAILY 01/03/2016 03/03/2016 Inactive 01/03/2016 10:35:14 AM N O T I C E Last quantity doesn't match original quantity lisinopril 10 mg tablet RxNorm: 835301 1 Tablet(s) PO BID 10/0301/31/2016 Inactive Synthroid 100 mcg tablet RxNorm: 617678 1 Tablet(s) PO daily 01/02/2016 Inactive metoprolol succinate ER 50 mg tablet,extended release 24 hr RxNorm: 922993 1 Tablet(s) PO daily 10/04/2015 04/30/2016 Inactive Tylenol Arthritis 650 mg tablet,extended release RxNorm: 5617539 2 Tablet(s) PO TID 09/10/2015 No Stop Date Active metoprolol succinate ER 50 mg tablet,extended release 24 hr RxNorm: 869368 1 Tablet(s) PO daily 09/05/2015 10/03/2015 Inactive pravastatin 80 mg tablet RxNorm: 964527 1 Tablet(s) PO QHS 08/30/2015 Inactive pravastatin 40 mg tablet RxNorm: 486707 1 Tablet(s) PO BID 08/29/2015 Inactive Cancel 80 mg tab pravastatin 40 mg tablet RxNorm: 421037 1 Tablet(s) PO BID 08/19/2016 Inactive Cancel 80 mg tab lisinopril 10 mg tablet RxNorm: 115422 1 Tablet(s) PO BID 06/1308/11/2016 Inactive lisinopril 10 mg tablet RxNorm: 658611 1 Tablet(s) PO BID 06/1310/03/2015 Inactive Synthroid 100 mcg tablet RxNorm: 686315 1 Tablet(s) PO daily 10/03/2015 Inactive ceftriaxone 1 gram solution for injection RxNorm: 1465311 Inj 03/01/2015 03/01/2015 Inactive ceftriaxone 1 gram solution for injection RxNorm: 9679057 Inj 02/28/2015 02/28/2015 Inactive ceftriaxone 1 gram solution for injection RxNorm: 4137291 Inj 02/27/2015 02/27/2015 Inactive ceftriaxone 1 gram solution for injection RxNorm: 7700895 Inj 02/26/2015 02/26/2015 Inactive ceftriaxone 1 gram solution for injection RxNorm: 7870125 Inj 02/25/2015 02/25/2015 Inactive phenazopyridine 200 mg tablet RxNorm: 2298378 1 Tablet(s) PO Q8 02/21/2015 02/20/2015 Inactive Cipro 500 mg tablet RxNorm: 080761 1 Tablet(s) PO BID 201402/20/2015 Inactive phenazopyridine 200 mg tablet RxNorm: 7819648 1 Tablet(s) PO Q8 02/21/2015 02/25/2015 Inactive Cipro 500 mg tablet RxNorm: 575186 1 Tablet(s) PO BID 201402/27/2015 Inactive lisinopril 10 mg tablet RxNorm: 202693 1 Tablet(s) PO BID 02/1406/12/2015 Inactive metoprolol succinate ER 50 mg tablet,extended release 24 hr RxNorm: 704949 3/4 Tablet(s) PO daily 02/11/2015 09/04/2015 Inactive Voltaren 1 % topical gel RxNorm: 271349 2 Gram(s) TOP QID use this on affected joints up to four times daily. 02/11/2015 03/12/2015 Inactive Probiotic oral RxNorm : 6205 oral No Start Date Active aspirin 81 mg tablet RxNorm: 090565 1 Tablet(s) PO daily No Start Date Active Super B-Complex tablet RxNorm: 1 Tablet(s) PO No Start Date Active Flonase Allergy Relief 50 mcg/actuation nasal spray, suspension RxNorm: 3414737 1 [place] NASAL BID No Start Date Active Super-D3+ oral RxNorm : oral No Start Date Active Prilosec OTC 20 mg tablet,delayed release RxNorm: 379076 2 Tablet(s) PO QAM No Start Date Active Flonase Allergy Relief 50 mcg/actuation nasal spray, suspension RxNorm: 2436192 1 [place] NASAL as needed No Start Date Active Move Free Ultra 40 mg-10 mg-3.3 mg tablet RxNorm: 1 Tablet(s) PO daily No Start Date Active metoprolol tartrate 50 mg tablet RxNorm: 283897 1 Tablet(s) PO daily No Start Date 02/10/2015 Inactive lisinopril 10 mg tablet RxNorm: 818946 1 Tablet(s) PO BID No Start Date 02/13/2015 Inactive pravastatin 80 mg tablet RxNorm: 185075 1 Tablet(s) PO daily No Start Date 08/29/2015 Inactive Synthroid 100 mcg tablet RxNorm: 343215 1 Tablet(s) PO daily No Start Date 06/09/2015 Inactive lisinopril 40 mg tablet RxNorm: 432399 1 Tablet(s) PO BID No Start Date 02/28/2018 Inactive Tylenol Arthritis 650 mg tablet,extended release RxNorm: 5099414 4 Tablet(s) PO daily No Start Date 09/09/2015 Inactive Medication Administered Medication Codes Instructions Start Date Status Kenalog 40 mg/mL suspension for injection RxNorm: 1848595 Milliliter 12/24/2017 No longer Active Kenalog 40 mg/mL suspension for injection RxNorm: 8564137 1Milliliter 03/25/2017 No longer Active Kenalog 40 mg/mL suspension for injection RxNorm: 8472461 Milliliter 12/08/2016 No longer Active ceftriaxone 1 gram solution for injection RxNorm: 0873810 03/01/2015 No longer Active ceftriaxone 1 gram solution for injection RxNorm: 2143553 02/28/2015 No longer Active ceftriaxone 1 gram solution for injection RxNorm: 8098377 02/27/2015 No longer Active ceftriaxone 1 gram solution for injection RxNorm: 0311434 02/26/2015 No longer Active ceftriaxone 1 gram solution for injection RxNorm: 8098739 02/25/2015 No longer Active Immunizations Vaccine Codes Date Status Influenza CVX: 141 01/18/2018 completed Influenza CVX: 141 03/15/2017 completed Influenza CVX: 141 03/18/2016 completed Influenza CVX: 141 02/11/2015 completed Assessments Condition Codes Effective Dates Otalgia, right ear ICD-10: H92.01 ICD-9: 388.70 03/01/2018 Abnormal findings on diagnostic imaging of other specified body structures ICD-10: R93.89 ICD-9: 793.99 03/01/2018 Headache ICD-10: R51 ICD-9: 784.0 03/01/2018 Other fatigue ICD-10: R53.83 ICD-9: 780.79 [...] Visit Reason For Visit Effective Dates Notes headache 03/01/2018 Annual Medicare Wellness Exam 12/24/2017 [...] growth sent to ref lab 11/19/2017 B12 Xmf245 B12 712.00 pg/ml 09/28/2017 C-Reactive Protein Qnt Crqnt CRP 0.1 mg/dl 09/23/2017 Comp Metabolic Nlc527 NA 139 mEq/L 09/23/2017 Comp Metabolic Vbf315 K 4.8 mEq/L 09/23/2017 Comp Metabolic Uus904 CL 104 mEq/L 09/23/2017 Comp Metabolic Now682 CO2 28.0 mEq/L 09/23/2017 Comp Metabolic Inb927 ANION GAP 12 09/23/2017 Comp Metabolic Zea578 GLUCOSE 92 mg/dL 09/23/2017 Comp Metabolic Ryv066 Creat 0.7 mg/dL 09/23/2017 Comp Metabolic Fpx327 eGFR 91 ml/min/1.73m2 09/23/2017 Comp Metabolic Pkk595 BUN 11 mg/dL 09/23/2017 Comp Metabolic Zkz116 B/C Ratio 16.4 Ratio 09/23/2017 Comp Metabolic Ych349 CALCIUM 9.0 mg/dL 09/23/2017 Comp Metabolic Rti509 ALK PHOS 76 U/L 09/23/2017 Comp Metabolic Efq209 AST(SGOT) 24 U/L 09/23/2017 Comp Metabolic Wpj884 ALT(SGPT) 21 U/L 09/23/2017 Comp Metabolic Ffq865 BILI T 0.3 mg/dL 09/23/2017 Comp Metabolic Csx820 ALBUMIN 4.1 g/dL 09/23/2017 Comp Metabolic Fvf569 TPRO 6.2 g/dL 09/23/2017 Comp Metabolic Xaa373 GLOB 2.1 g/dL 09/23/2017 Comp Metabolic Jmt437 A/G Ratio 1.9 Ratio 09/23/2017 Comp Metabolic Ade066 Osmo 277 mOsmo 09/23/2017 Sed Rate Ord21 ESR 3 mm/hr 09/22/2017 Vitamin D 25 Oh Nsu4502 VITAMIN D, 25 HYDROXY 78.79 ng/mL Tsh [...] 97.1 fl 09/22/2017 Cbc With Differential Ord2 [place]% 10.5 % 09/22/2017 Cbc With Differential Ord2 [...] 2.37 K/ul 09/22/2017 Cbc With Differential Ord2 [place] ABS# 0.9 K/ul 09/22/2017 Cbc With Differential Ord2 Eos ABS# 0.2 K/ul 09/22/2017 Cbc With Differential Ord2 Baso ABS# 0.0 K/ul 09/22/2017 Free T4 Bqt099 FREE T4 0.99 ng/dL 09/22/2017 %Hba1C Oaq674 % HbA1c 21889-8 6.0 % 12/10/2016 %Hba1C Vti364 Gluc Ave 126 mg/dL 12/10/2016 Tsh Ord6 hTSH II 0.89 uIU/mL 12/09/2016 Free T4 Rqg206 FREE T4 0.99 ng/dL 12/09/2016 Comp Metabolic Emt364 NA 138 mEq/L 12/09/2016 Comp Metabolic Fft729 K 5.2 mEq/L 12/09/2016 Comp Metabolic Fgx837 CL 104 mEq/L 12/09/2016 Comp Metabolic Uwb624 CO2 29.0 mEq/L 12/09/2016 Comp Metabolic Baf360 ANION GAP 10 12/09/2016 Comp Metabolic Due569 GLUCOSE 135 mg/dL 12/09/2016 Comp Metabolic Dsc373 Creat 0.8 mg/dL 12/09/2016 Comp Metabolic Uho989 eGFR 79 ml/min/1.73m2 12/09/2016 Comp Metabolic Gnm113 BUN 18 mg/dL 12/09/2016 Comp Metabolic Sfo792 B/C Ratio 23.7 Ratio 12/09/2016 Comp Metabolic Iog750 CALCIUM 9.5 mg/dL 12/09/2016 Comp Metabolic Fcf974 ALK PHOS 73 U/L 12/09/2016 Comp Metabolic Vce792 AST(SGOT) 24 U/L 12/09/2016 Comp Metabolic Jws401 ALT(SGPT) 20 U/L 12/09/2016 Comp Metabolic Wus661 BILI T 0.3 mg/dL 12/09/2016 Comp Metabolic Afl880 ALBUMIN 4.3 g/dL 12/09/2016 Comp Metabolic Zvb917 TPRO 6.4 g/dL 12/09/2016 Comp Metabolic Xsc759 GLOB 2.1 g/dL 12/09/2016 Comp Metabolic Rnj990 A/G Ratio 2.0 Ratio 12/09/2016 Comp Metabolic Fkn200 Osmo 280 mOsmo 12/09/2016 Cbc With Differential [...] 31.3 pg 12/09/2016 Cbc With Differential Ord2 [place]% 6.5 % 12/09/2016 Cbc With Differential Ord2 [...] 1.84 K/ul 12/09/2016 Cbc With Differential Ord2 [place] ABS# 0.6 K/ul 12/09/2016 Cbc With Differential Ord2 Eos ABS# 0.1 K/ul 12/09/2016 Cbc With Differential Ord2 Baso ABS# 0.1 K/ul 12/09/2016 Tsh Ord6 hTSH II 1.19 uIU/mL 09/02/2016 Free T4 Fxo210 FREE T4 0.97 ng/dL 09/02/2016 Comp Metabolic Kkh668 NA 137 mEq/L 06/01/2016 Comp Metabolic Ieo190 K 4.1 mEq/L 06/01/2016 Comp Metabolic Gkv030 CL 104 mEq/L 06/01/2016 Comp Metabolic Frz082 CO2 25.0 mEq/L 06/01/2016 Comp Metabolic Nws132 ANION GAP 12 06/01/2016 Comp Metabolic Cml246 GLUCOSE 108 mg/dL 06/01/2016 Comp Metabolic Uvb583 Creat 0.8 mg/dL 06/01/2016 Comp Metabolic Udh979 eGFR 80 ml/min/1.73m2 06/01/2016 Comp Metabolic Fwe607 BUN 15 mg/dL 06/01/2016 Comp Metabolic Dze063 B/C Ratio 20.0 Ratio 06/01/2016 Comp Metabolic Ibl190 CALCIUM 9.1 mg/dL 06/01/2016 Comp Metabolic Fog309 ALK PHOS 89 U/L 06/01/2016 Comp Metabolic Bii843 AST(SGOT) 25 U/L 06/01/2016 Comp Metabolic Mwd625 ALT(SGPT) 20 U/L 06/01/2016 Comp Metabolic Dhu035 BILI T 0.3 mg/dL 06/01/2016 Comp Metabolic Xga998 ALBUMIN 4.2 g/dL 06/01/2016 Comp Metabolic Vjq865 TPRO 6.2 g/dL 06/01/2016 Comp Metabolic Hot600 GLOB 2.0 g/dL 06/01/2016 Comp Metabolic Atv737 A/G Ratio 2.1 Ratio 06/01/2016 Comp Metabolic Lod488 Osmo 275 mOsmo 06/01/2016 Free T4 Hmb494 FREE T4 0.94 ng/dL 06/01/2016 Tsh Ord6 [...] 31.1 pg 06/01/2016 Cbc With Differential Ord2 [place]% 8.4 % 06/01/2016 Cbc With Differential Ord2 [...] 2.96 K/ul 06/01/2016 Cbc With Differential Ord2 [place] ABS# 0.6 K/ul 06/01/2016 Cbc With Differential [...] 31.3 pg 02/27/2016 Cbc With Differential Ord2 [place]% 10.0 % 02/27/2016 Cbc With Differential Ord2 [...] 2.28 K/ul 02/27/2016 Cbc With Differential Ord2 [place] ABS# 0.9 K/ul 02/27/2016 Cbc With Differential Ord2 Eos ABS# 0.3 K/ul 02/27/2016 Cbc With Differential Ord2 Baso ABS# 0.1 K/ul 02/27/2016 Tsh Ord6 hTSH II 0.18 uIU/mL 02/27/2016 Free T4 Fkl745 FREE T4 1.17 ng/dL 02/27/2016 Comp Metabolic Ays290 NA 135 mEq/L 02/27/2016 Comp Metabolic Jgc940 K 5.2 mEq/L 02/27/2016 Comp Metabolic Kvh856 CL 102 mEq/L 02/27/2016 Comp Metabolic Hhj321 CO2 27.0 mEq/L 02/27/2016 Comp Metabolic Chq131 ANION GAP 11 02/27/2016 Comp Metabolic Tpa881 GLUCOSE 93 mg/dL 02/27/2016 Comp Metabolic Mpc593 Creat 0.7 mg/dL 02/27/2016 Comp Metabolic Xec261 eGFR 91 ml/min/1.73m2 02/27/2016 Comp Metabolic Mmd069 BUN 14 mg/dL 02/27/2016 Comp Metabolic Pib948 B/C Ratio 20.9 Ratio 02/27/2016 Comp Metabolic Xnl089 CALCIUM 9.4 mg/dL 02/27/2016 Comp Metabolic Vdl988 ALK PHOS 100 U/L 02/27/2016 Comp Metabolic Vix021 AST(SGOT) 23 U/L 02/27/2016 Comp Metabolic Fii124 ALT(SGPT) 24 U/L 02/27/2016 Comp Metabolic Rkm706 BILI T 0.2 mg/dL 02/27/2016 Comp Metabolic Wvk519 ALBUMIN 4.3 g/dL 02/27/2016 Comp Metabolic Idc223 TPRO 6.3 g/dL 02/27/2016 Comp Metabolic Mjm894 GLOB 2.1 g/dL 02/27/2016 Comp Metabolic Dkl793 A/G Ratio 2.1 Ratio 02/27/2016 Comp Metabolic Kge062 Osmo 270 mOsmo 02/27/2016 Free T4 Clj037 FREE T4 1.03 ng/dL 05/10/2015 Comp Metabolic Aod426 NA 137 mEq/L 05/10/2015 Comp Metabolic Lbb144 K 4.4 mEq/L 05/10/2015 Comp Metabolic Vre789 CL 102 mEq/L 05/10/2015 Comp Metabolic Zro778 CO2 28.0 mEq/L 05/10/2015 Comp Metabolic Shv219 ANION GAP 11 05/10/2015 Comp Metabolic Goi766 GLUCOSE 108 mg/dL 05/10/2015 Comp Metabolic Rse954 Creat 0.7 mg/dL 05/10/2015 Comp Metabolic Dey894 eGFR 86 ml/min/1.73m2 05/10/2015 Comp Metabolic Vjy148 BUN 13 mg/dL 05/10/2015 Comp Metabolic Gog794 B/C Ratio 18.3 Ratio 05/10/2015 Comp Metabolic Cib414 CALCIUM 9.4 mg/dL 05/10/2015 Comp Metabolic Bnf942 ALK PHOS 94 U/L 05/10/2015 Comp Metabolic Zsp487 AST(SGOT) 22 U/L 05/10/2015 Comp Metabolic Cok636 ALT(SGPT) 21 U/L 05/10/2015 Comp Metabolic Bsx607 BILI T 0.3 mg/dL 05/10/2015 Comp Metabolic Zin934 ALBUMIN 3.9 g/dL 05/10/2015 Comp Metabolic Jfi220 TPRO 6.1 g/dL 05/10/2015 Comp Metabolic Gyl545 GLOB 2.2 g/dL 05/10/2015 Comp Metabolic Pes808 A/G Ratio 1.7 Ratio 05/10/2015 Comp Metabolic Mza892 Osmo 274 mOsmo 05/10/2015 Tsh Ord6 hTSH [...] 29.4 pg 05/10/2015 Cbc With Differential Ord2 [place]% 9.0 % 05/10/2015 Cbc With Differential Ord2 [...] 2.14 K/ul 05/10/2015 Cbc With Differential Ord2 [place] ABS# 0.5 K/ul 05/10/2015 Cbc With Differential [...] Ord30 C/HDL 3.8 Ratio 05/10/2015 Culture Urine [id number] URINE CULTURE SEE NOTES 02/25/2015 Culture Urine [id number] Continued Results 02/25/2015 Urine Culture Ucult Complete >100,000 col/ml aerobic growth sent to ref lab 02/22/2015 Free T4 Kdd039 FREE T4 1.16 ng/dL 02/11/2015 Tsh Ord6 hTSH II 0.51 uIU/mL 02/11/2015 Review of Systems System Result Effective Dates Constitutional recent illness 03/01/2018 Constitutional No chills [...] Result Effective Dates Notes Full Exam - ENT Constitutional general appearance [...] crepitus 02/11/2015 None Procedures Procedure Codes Date PPPS, SUBSEQ VISIT CPT -4: G0439 12/24/2017 THER/PROPH/DIAG INJ SC/IM CPT-4: 38297 12/24/2017 TRIAMCINOLONE ACET INJ NOS CPT-4: J3301 12/24/2017 THER/PROPH/DIAG INJ SC/IM CPT-4: 92547 11/18/2017 ROCEPHIN, PER 250 MG CPT-4: J0696 11/18/2017 PRESCRIP TRANSMIT VIA ERX SY CPT-4: G8553 04/01/2017 TRIAMCINOLONE ACET INJ NOS CPT-4: J3301 03/25/2017 PPPS, SUBSEQ VISIT CPT -4: G0439 12/23/2016 THER/PROPH/DIAG INJ SC/IM CPT-4: 27391 12/08/2016 TRIAMCINOLONE ACET INJ NOS CPT-4: J3301 12/08/2016 PRESCRIP TRANSMIT VIA ERX SY CPT-4: G8553 12/08/2016 PRESCRIP TRANSMIT VIA ERX SY CPT-4: G8553 11/30/2016 URINALYSIS NONAUTO W/O SCOPE CPT-4: 35753 07/08/2016 PRESCRIP TRANSMIT VIA ERX SY CPT-4: G8553 06/01/2016 PRESCRIP TRANSMIT VIA ERX SY CPT-4: G8553 02/27/2016 THER/PROPH/DIAG INJ SC/IM CPT-4: 72542 03/01/2015 ROCEPHIN, PER 250 MG CPT-4: J0696 03/01/2015 THER/PROPH/DIAG INJ SC/IM CPT-4: 34359 02/28/2015 ROCEPHIN, PER 250 MG CPT-4: J0696 02/28/2015 THER/PROPH/DIAG INJ SC/IM CPT-4: 16619 02/27/2015 ROCEPHIN, PER 250 MG CPT-4: J0696 02/27/2015 THER/PROPH/DIAG INJ SC/IM CPT-4: 15849 02/26/2015 ROCEPHIN, PER 250 MG CPT-4: J0696 02/26/2015 THER/PROPH/DIAG INJ SC/IM CPT-4: 50631 02/25/2015 ROCEPHIN, PER 250 MG CPT-4: J0696 02/25/2015 URINALYSIS NONAUTO W/O SCOPE CPT-4: 92325 02/21/2015 Vital Signs Date Vital 03/01/2018 Blood Pressure 1: 136/70 Code : 8480-6 BMI: 27.8 Code : 69326-7 Heart Rate 1 : 70 bpm Height: 5'3" SpO2: 96% Weight: 157 lbs 12/24/2017 Height: Weight: 11/18/2017 Blood Pressure 1: 164/74 Code : 8480-6 BMI: 27.6 Code : 16501-9 Heart Rate 1 : 70 bpm Height: 5'3" SpO2: 96% Weight: 156 lbs 11/03/2017 Blood Pressure 1: 118/72 Code : 8480-6 BMI: 27.6 Code : 78364-9 Heart Rate 1 : 82 bpm Height: 5'3" SpO2: 96% Weight: 156 lbs 09/22/2017 Blood Pressure 1: 136/68 Code : 8480-6 BMI: 27.6 Code : 80046-4 Heart Rate 1 : 70 bpm Height: 5'3" SpO2: 97% Weight: 156 lbs 04/01/2017 Blood Pressure 1: 144/82 Code : 8480-6 Heart Rate 1: 68 bpm Height: 5'3" SpO2: 97% Weight: 03/25/2017 Blood Pressure 1: 116/70 Code : 8480-6 BMI: 26.7 Code : 68856-4 Heart Rate 1 : 67 bpm Height: 5'3" SpO2: 98% Weight: 151 lbs 12/23/2016 BMI: 26.7 Code: 31122-9 Height: 5'3" Weight: 151 lbs 12/22/2016 Blood Pressure 1: 142/60 Code : 8480-6 BMI: 26.7 Code : 63791-7 Heart Rate 1 : 67 bpm Height: 5'3" SpO2: 98% Weight: 151 lbs 12/08/2016 Blood Pressure 1: 140/72 Code : 8480-6 Heart Rate 1: 72 bpm Height: 5'3" SpO2: 97% Weight: 11/30/2016 Blood Pressure 1: 128/80 Code : 8480-6 BMI: 26.7 Code : 70678-7 Heart Rate 1 : 63 bpm Height: 5'3" SpO2: 96% Weight: 151 lbs 09/28/2016 Blood Pressure 1: 130/80 Code : 8480-6 BMI: 27.1 Code : 35278-6 Heart Rate 1 : 80 bpm Height: 5'3" SpO2: 97% Weight: 153 lbs 07/06/2016 Blood Pressure 1: 162/72 Code : 8480-6 BMI: 27.6 Code : 45836-0 Heart Rate 1 : 72 bpm Height: 5'3" SpO2: 98% Weight: 156 lbs 06/01/2016 Blood Pressure 1: 122/66 Code : 8480-6 BMI: 27.5 Code : 44002-8 Heart Rate 1 : 73 bpm Height: 5'3" SpO2: 98% Weight: 155 lbs 8 oz 02/27/2016 Blood Pressure 1: 126/68 Code : 8480-6 BMI: 26.9 Code : 45838-3 Heart Rate 1 : 70 bpm Height: 5'3" SpO2: 98% Weight: 152 lbs 09/10/2015 Blood Pressure 1: 130/70 Code : 8480-6 BMI: 26.9 Code : 38876-0 Heart Rate 1 : 72 bpm Height: 5'3" SpO2: 97% Weight: 152 lbs 05/14/2015 Blood Pressure 1: 138/82 Code : 8480-6 BMI: 26.4 Code : 85172-8 Heart Rate 1 : 75 bpm Height: 5'3" SpO2: 98% Weight: 149 lbs 02/11/2015 Blood Pressure 1: 128/72 Code : 8480-6 BMI: 25.5 Code : 05602-7 Heart Rate 1 : 73 bpm Height: 5'3" SpO2: 94% Weight: 144 lbs Functional Status No Functional Status data History of Present Illness Symptom Name Status Result Effective Date Notes headache Location in the right temporal region [...] Codes Date EST. PATIENT, LEVEL IV Diagnosis: Otalgia, right ear[ICD10: H92.01] Diagnosis: Headache[ICD10: R51] Diagnosis: Other fatigue[ICD10: R53.83] Diagnosis: Abnormal findings on diagnostic imaging of other specified body structures[ICD10: R93.89] Elen Cortez MD, [facility] CPT-4: 14567 03/01/2018 17796 EST. PATIENT, LEVEL III Diagnosis: Acute cystitis with hematuria[ICD10: N30.01] Bridget Cortez MD, [facility] CPT-4: 62369 11/18/2017 00570 EST. PATIENT, LEVEL IV Diagnosis: Other acute sinusitis[ICD10: J01.80] Diagnosis: Otalgia, right ear[ICD10: H92.01] Bridget Cortez MD, [facility] CPT -4: 33572 11/03/2017 48618 EST. PATIENT, LEVEL III Diagnosis: Other fatigue[ICD10: R53.83] Diagnosis: Other malaise[ICD10: R53.81] Diagnosis: Pain in left knee[ICD10: M25.562] Diagnosis: Pain in right knee[ICD10: M25.561] Bridget Cortez MD, [facility] CPT-4: 99777 09/22/2017 ([id number] 91388 EST. PATIENT, LEVEL III Diagnosis: Cough[ICD10: R05] Diagnosis: Acute bronchitis due to other specified organisms[ICD10: J20.8] Elen Cortez MD, [facility] CPT-4: 55902 04/01/2017 26921 74947 EST. PATIENT, LEVEL III Diagnosis: Otalgia, right ear[ICD10: H92.01] Diagnosis: Other allergic rhinitis[ICD10: J30.89] Shiela Cortez MD, [facility] CPT-4: 43829 03/25/2017 ([id number]) 37357 EST. PATIENT, LEVEL III Diagnosis: Benign paroxysmal vertigo, bilateral[ICD10: H81.13] Shiela Cortez MD, [facility] CPT-4: 03447 12/22/2016 ([id number]) 16118 EST. PATIENT, LEVEL IV Diagnosis: Benign paroxysmal vertigo, bilateral[ICD10: H81.13] Diagnosis: Other allergic rhinitis[ICD10: J30.89] Diagnosis: Hypothyroidism, unspecified[ICD10: E03.9] Shiela Cortez MD, [facility] CPT-4: 70464 12/08/2016 ([id number]) 71156 EST. PATIENT, LEVEL IV Diagnosis: Atrophy of thyroid (acquired)[ICD10: E03.4] Diagnosis: Essential (primary) hypertension[ICD10: I10] Diagnosis: Mixed hyperlipidemia[ICD10: E78.2] Elen Cortez MD, [facility] CPT-4: 50469 11/30/2016 02874 EST. PATIENT, LEVEL IV Diagnosis: Headache[ICD10: R51] Diagnosis: Other fatigue[ICD10: R53.83] Diagnosis: Dizziness and giddiness[ICD10: R42] Bridget Cortez MD, [facility] CPT-4: 49315 09/28/2016 92986 EST. PATIENT, LEVEL IV Diagnosis: Essential (primary) hypertension[ICD10: I10] Diagnosis: Headache[ICD10: R51] Bridget Cortez MD, [facility] CPT-4: 87839 07/06/2016 ([id number]) 63159 EST. PATIENT, LEVEL IV Diagnosis: Essential (primary) hypertension[ICD10: I10] Diagnosis: Atrophy of thyroid (acquired)[ICD10: E03.4] Diagnosis: Mixed hyperlipidemia[ICD10: E78.2] Elen Cortez MD, [facility] CPT-4: 53216 06/01/2016 12847 EST. PATIENT, LEVEL IV Diagnosis: Acute laryngopharyngitis[ICD10: J06.0] Diagnosis: Other allergic rhinitis[ICD10: J30.89] Diagnosis: Other specified hypothyroidism[ICD10: E03.8] Diagnosis: Other fatigue[ICD10: R53.83] Bridget Cortez MD, [facility] CPT-4 : 19104 02/27/2016 ([id number]) 16558 EST. PATIENT, LEVEL III Diagnosis: Essential (primary) hypertension[ICD10: I10] Diagnosis: Mixed hyperlipidemia[ICD10: E78.2] [facility] CPT-4: 48365 09/10/2015 ([id number]) 58717 EST. PATIENT, LEVEL IV Diagnosis: Essential (primary) hypertension[ICD10: I10] Diagnosis: Hypothyroidism, unspecified[ICD10: E03.9] Diagnosis: Unspecified osteoarthritis, unspecified site[ICD10: M19.90] [facility] CPT-4: 68947 05/14/2015 ([id number]) OFFICE VISIT, NEW - LEVEL 4 Diagnosis: Essential (primary) hypertension[ICD10: I10] Diagnosis: Hypothyroidism, unspecified[ICD10: E03.9] Diagnosis: Unspecified osteoarthritis, unspecified site[ICD10: M19.90] [facility] CPT-4: 40371 02/11/2015 Plan of Care Planned Activity Notes [...] not improve. 03/01/2018 Appointment: Elen Cortez WPtel: [address] [place], [place] [id number] (15 min) Moderate 03/01/2018 Patient Education: Patient [...] allergy spray. 12/24/2017 Appointment: Bridget Velazco WPtel: [facility] - Annual Wellness Visit 12/24/2017 Patient Education: Patient Medication Summary Completed 12/24/2017 Appointment: Bridget Velazco WPtel: [address] [place] [address] (15 min) Moderate 11/30/2017 Appointment: Lab Draw [...] not improve. 11/18/2017 Appointment: Bridget Velazco WPtel: [facility] (15 min) Moderate 11/18/2017 Patient Education: Patient Medication Summary Completed 11/18/2017 Visit Plan: Sinusitis - Pt has acute infection - pain in face, maxillary region, Pt informed to use decongestant, RX given to patient, sinus rinses also recommended. Call if symptoms do not show improvement. 11/03/2017 Appointment: Bridget Velazco WPtel: [phone] [phone] (15 min) Moderate 11/03/2017 Patient Education: Patient [...] improve. 09/22/2017 Appointment: Bridget Velazco WPtel: [phone] [phone] (15 min) Moderate 09/22/2017 Patient Education: Patient Medication Summary Completed 09/22/2017 Visit Plan: Bronchitis - acute case of bronchitis identified. Pt has been given antibiotics, breathing treatments as appropriate, and pt has been instructed to call if symptoms are not improved, or if symptoms acutely worsen. 04/01/2017 Appointment: Elen Cortez WPtel: [phone] [phone] (15 min) Moderate 04/01/2017 Patient Education: Patient [...] allergy spray. 03/25/2017 Appointment: Shiela Srivastava WPtel: [phone] [place] (10 min) Simple 03/25/2017 Appointment: Elen Cortez WPtel: [phone] [facility] [place] (15 min) Moderate 03/25/2017 Patient Education: [...] care surrogate. 12/23/2016 [phone] [facility] - Annual Wellness Visit 12/23/2016 Patient Education: Patient Medication Summary Completed 12/23/2016 Visit Plan: Vertigo-discussed PT for vestibular exercises- patient wants to wait since symptoms are improving-continue anti histamine as directed-meclizine as needed 12/22/2016 Appointment: [phone] [phone] (30 min) [facility] 12/22/2016 Patient Education: Patient Medication Summary Completed [...] control. 12/08/2016 Appointment: [phone] [place] (30 min) Complex 12/08/2016 Patient [...] 11/30/2016 [phone] [place] (15 min) Moderate 11/30/2016 Patient [...] concerns. 09/28/2016 Appointment: [phone] [facility] (30 min) Complex 09/28/2016 Patient Education: [...] concerns. 07/06/2016 Appointment: Bridget Velazco WPtel: [phone] [phone] (15 min) Moderate 07/06/2016 Patient Education: Patient [...] improving 06/01/2016 Appointment: Elen Cortez WPtel: [phone] [facility] (15 min) Moderate 06/01/2016 Patient Education: Patient [...] check labs 02/27/2016 Appointment: [phone] (30 min) Complex 02/27/2016 Patient Education: Patient Medication Summary Completed 02/27/2016 Patient Education: Patient Medication Summary Completed 09/27/2015 Care Plan: SCREENINGMAMMOGRAPHYDIGITAL LOINC : 79484-9 Pending 09/27/2015 Visit Plan: Hypertension - well [...] the colonoscopy 09/10/2015 [facility]ment[phone] [place] (15 min) Moderate 09/10/2015 [...] orthopedic surgeon - Dr. Sanchez. 05/14/2015 Appointment: [phone] [facility] [place] (15 min) Moderate 05/14/2015 Patient Education: Patient Medication Summary Completed 05/14/2015 Patient Education: Hypertension Completed 05/14/2015 Care Plan: Referral Order SNOMED-CT : [id number] Ordered 05/14/2015 Patient Education: Patient Medication Summary Completed 03/01/2015 Appointment: Nurse Visit 02/28/2015 Patient Education: Patient Medication Summary Completed 02/28/2015 Patient Education: Patient Medication Summary Completed 02/27/2015 Appointment: Nurse Visit 02/26/2015 Patient Education: Patient Medication Summary Completed 02/26/2015 Appointment: Injection 02/25/2015 Patient Education: Patient Medication Summary Completed 02/25/2015 Patient Education: Patient Medication Summary Completed 02/21/2015 Care Plan: URINALYSIS NONAUTO W/O SCOPE LOINC : 21796-0 Ordered 02/21/2015 Visit Plan: Hypertension - well [...] pain symptoms. 02/11/2015 Appointment: [phone] [facility] [place] New Patient 02/11/2015 Patient Education: Patient [...] if the hearing does not improve. . Vertigo-discussed PT for [...] to the following orthopedic surgeon - Dr. Zafuta. . Fatigue, Malaise - will check labs [...]
--- OUTSIDE RECORDS SUMMARY | 2018-06-01 13:18 | XMS REPORT | CCD ---
Author Author [facility] Organization [facility] Address [address] [place] [address] Phone Care Team Providers Care Teacher Asst Name Role Phone PP Unavailable CCM Unavailable Summary Purpose Interface Exchange Insurance Providers Payer name Policy type / Coverage type Covered republican ID Effective Begin Date Effective End Date WPS Medicare Part B Medicare Part B [id number] Unknown [facility] Life Insurance Medicare Part B [id number] Unknown Family history Mother Diagnosis Age At [...] spouses - 02/11/[address]: 315774472 Never smoker 02/11/2015 Alcohol history Unknown occasionally drinks alcohol 02/11/2015 Allergies, Adverse Reactions, Alerts Substance Reaction Codes Entered Date Inactivated Date Status CODEINE RxNorm: 2670 02/11/2015 No Inactive Date Active allergy Unknown 12/23/2016 No Inactive Date Active ciprofloxacin rash, RxNorm: 45393 02/26/2015 No Inactive Date Active hydrocodone Unknown [...] Fill Instructions Synthroid 88 mcg tablet RxNorm: 358697 TAKE 1 TABLET BY MOUTH DAILY 03/08/2018 08/04/2018 Active 03/07/2018 11:21:21 AM pravastatin 80 mg tablet RxNorm: 272279 Tablet(s) 1 Tablet(s) PO daily 03/01/2018 02/23/2019 Active Kenalog 40 mg/mL suspension for injection RxNorm: 2198810 Milliliter(s) Inj 12/24/2017 12/24/2017 Inactive cetirizine 10 mg tablet RxNorm: 7649412 TAKE 1 TABLET BY MOUTH DAILY 12/21/2017 07/18/2018 Active Generic For:*ZYRTEC 10 MG TABLET 12/21/2017 10:08:05 AM Synthroid 88 mcg tablet RxNorm: 432088 TAKE 1 TABLET BY MOUTH DAILY 12/07/2017 03/06/2018 Inactive 12/06/2017 11:46:49 AM Lipitor 80 mg tablet RxNorm: 103501 1 Tablet(s) PO daily 201702/28/2018 Inactive pravastatin 80 mg tablet RxNorm: 486801 1 Tablet(s) PO daily 11/29/2017 Inactive Lipitor 80 mg tablet RxNorm: 020831 1 Tablet(s) PO daily 201711/28/2017 Inactive lisinopril 20 mg tablet RxNorm: 310614 TAKE 1 TABLET BY MOUTH TWICE DAILY 11/23/2017 04/21/2018 Active Generic For:*PRINIVIL 20 MG TABLET 11/23/2017 11:29:44 AM Macrobid 100 mg capsule RxNorm: 919921 1 Capsule(s) PO BID 06/201711/25/2017 Inactive Macrobid 100 mg capsule RxNorm: 939524 1 Capsule(s) PO BID 06/201711/18/2017 Inactive Lomotil 2.5 mg-0.025 mg tablet RxNorm: 4481305 1 -2 Tablet(s) PO TID as needed 11/19/2017 11/25/2017 Inactive Lomotil 2.5 mg-0.025 mg tablet RxNorm: 8213909 1 -2 Tablet(s) PO TID as needed 11/19/2017 11/18/2017 Inactive Pyridium 200 mg tablet RxNorm: 1396762 1 Tablet(s) PO TID as needed 11/18/2017 11/22/2017 Inactive Augmentin 500 mg-125 mg tablet RxNorm: 912543 1 Tablet(s) PO TID 11/18/2017 11/27/2017 Inactive Keflex 500 mg capsule RxNorm: 879079 1 Capsule(s) PO TID 201711/09/2017 Inactive Denavir 1 % topical cream RxNorm: 523239 1 TOP TID as needed cold sores 11/01/2017 01/29/2018 Inactive Denavir 1 % topical cream RxNorm: 489090 1 TOP TID as needed cold sores 11/01/2017 10/31/2017 Inactive Synthroid 88 mcg tablet RxNorm: 041462 TAKE 1 TABLET BY MOUTH DAILY 09/29/2017 11/27/2017 Inactive 09/29/2017 12:58:07 PM pravastatin 80 mg tablet RxNorm: 532301 1 Tablet(s) PO daily 08/30/2017 Inactive pravastatin 80 mg tablet RxNorm: 404476 1 Tablet(s) PO daily 11/28/2017 Inactive Synthroid 88 mcg tablet RxNorm: 985624 TAKE 1 TABLET BY MOUTH DAILY 08/30/2017 09/28/2017 Inactive 08/30/2017 10:53:26 AM metoprolol succinate ER 50 mg tablet,extended release 24 hr RxNorm: 080534 Tablet (s) TAKE 1 TABLET BY MOUTH DAILY 08/17/2017 03/14/2018 Active PLEASE SEND REFILL REQUESTS ELECTRONICALLY!! lisinopril 20 mg tablet RxNorm: 603680 TAKE 1 TABLET BY MOUTH TWICE DAILY 06/18/2017 11/14/2017 Inactive Generic For:*PRINIVIL 20 MG TABLET 06/18/2017 1:31: 00 PM Synthroid 88 mcg tablet RxNorm: 962643 TAKE 1 TABLET BY MOUTH DAILY 05/24/2017 08/21/2017 Inactive 05/24/2017 2:13:21 PM cetirizine 10 mg tablet RxNorm: 3078780 1 Tablet(s) PO daily 12/12/2017 Inactive Zithromax Z-Russell 250 mg capsule RxNorm: 312661 1 Capsule(s) PO 04/02/2017 04/05/2017 Inactive Zithromax Z-Russell 250 mg tablet RxNorm: 558432 1 Tablet(s) PO 04/01/2017 Inactive Zithromax Z-Russell 250 mg capsule RxNorm: 606709 1 Capsule(s) PO 04/02/2017 04/01/2017 Inactive Zithromax Z-Russell 250 mg tablet RxNorm: 313065 1 Tablet(s) PO 04/06/2017 Inactive Ventolin HFA 90 mcg/actuation aerosol inhaler RxNorm: 493540 2 INH QID as needed - for the first 3 days inhale at least two puffs three times daily, then use as needed for shortness of breath 04/01/2017 04/30/2017 Inactive Keflex 500 mg capsule RxNorm: 000997 1 Capsule(s) PO TID 201604/01/2017 Inactive meclizine 25 mg tablet RxNorm: 586614 1 Tablet(s) PO Q6 PRN 1 Tablet(s) PO Q6 PRN 03/25/2017 No Stop Date Active dizziness meclizine 25 mg tablet RxNorm: 697194 Tablet(s) 1 Tablet(s) PO Q6 PRN 03/25/2017 03/24/2017 Inactive dizziness Kenalog 40 mg/mL suspension for injection RxNorm: 4791070 1 Milliliter(s) Inj 03/25/2017 03/25/2017 Inactive meclizine 25 mg tablet RxNorm: 668958 1 Tablet(s) PO Q6 PRN 03/24/2017 Inactive dizziness lisinopril 20 mg tablet RxNorm: 698943 1 Tablet(s) PO BID 01/1506/13/2017 Inactive metoprolol succinate ER 50 mg tablet,extended release 24 hr RxNorm: 694885 TAKE 1 TABLET BY MOUTH DAILY 01/07/20172017 Inactive Generic For:TOPROL XL 50MG TAB 01/07/2017 12:38:23 PM Synthroid 88 mcg tablet RxNorm: 863993 TAKE 1 TABLET BY MOUTH DAILY 12/25/2016 05/23/2017 Inactive 12/25/2016 9:47:08 AM Zithromax Z-Russell 250 mg tablet RxNorm: 299799 Tablet(s) PO UD 03/24/2017 Inactive meclizine 25 mg tablet RxNorm: 455076 1 Tablet(s) PO Q6 PRN 12/20/2016 Inactive dizziness Kenalog 40 mg/mL suspension for injection RxNorm: 3705413 Milliliter(s) Inj 12/08/2016 12/08/2016 Inactive meloxicam 15 mg tablet RxNorm: 546635 1 Tablet(s) PO daily 12/20/2016 Inactive cetirizine 10 mg tablet RxNorm: 5949189 1 Tablet(s) PO daily 05/16/2017 Inactive pravastatin 40 mg tablet RxNorm: 983692 1 Tablet(s) PO BID 07/201608/30/2017 Inactive Cancel 80 mg tab lisinopril 20 mg tablet RxNorm: 973046 1 Tablet(s) PO BID 08/1212/22/2016 Inactive Synthroid 88 mcg tablet RxNorm: 366452 1 Tablet(s) PO TAKE ONE (1) TABLET BY MOUTH DAILY 07/28/2016 12/24/2016 Inactive decrease dose hydralazine 25 mg tablet RxNorm: 168318 1 Tablet(s) PO TID as needed for Systolic blood pressure over 170 07/06/20162016 Inactive lisinopril 20 mg tablet RxNorm: 772651 1 Tablet(s) PO BID to replace your other lisinopril dose 07/06/2016 08/04/2016 Inactive lisinopril 10 mg tablet RxNorm: 295811 TAKE ONE TABLET BY MOUTH TWICE DAILY 06/10/2016 08/11/2016 Inactive Generic For:ZESTRIL 10 MG TABLET 06/09/2016 12:58: 50 PM triamcinolone acetonide 0.1 % topical cream RxNorm: 4987864 1 Application TOP TID as needed 06/01/2016 No Stop Date Active nystatin 100,000 unit/gram topical cream RxNorm: 646367 1 Gram(s) TOP TID as needed 06/01/2016 No Stop Date Active metoprolol succinate ER 50 mg tablet,extended release 24 hr RxNorm: 842149 1 Tablet(s) PO daily 05/26/2016 12/21/2016 Inactive cetirizine 10 mg tablet RxNorm: 1737261 1 Tablet(s) PO daily 10/18/2016 Inactive Synthroid 88 mcg tablet RxNorm: 452414 1 Tablet(s) PO TAKE ONE (1) TABLET BY MOUTH DAILY 03/06/2016 08/02/2016 Inactive Brand name only! Synthroid 88 mcg tablet RxNorm: 228484 1 Tablet(s) PO TAKE ONE (1) TABLET BY MOUTH DAILY 03/04/2016 03/05/2016 Inactive decrease dose cetirizine 10 mg tablet RxNorm: 8765948 1 Tablet(s) PO daily 03/22/2016 Inactive amoxicillin 500 mg capsule RxNorm: 730059 1 Capsule(s) PO TID 02/27/2016 03/04/2016 Inactive lisinopril 10 mg tablet RxNorm: 542527 TAKE ONE TABLET BY MOUTH TWICE DAILY 02/06/2016 06/04/2016 Inactive Generic For:ZESTRIL 10 MG TABLET 02/06/2016 12:16: 38 PM Synthroid 100 mcg tablet RxNorm: 659259 TAKE ONE (1) TABLET BY MOUTH DAILY 01/03/2016 03/03/2016 Inactive 01/03/2016 10:35:14 AM N O T I C E Last quantity doesn't match original quantity lisinopril 10 mg tablet RxNorm: 383972 1 Tablet(s) PO BID 10/0301/31/2016 Inactive Synthroid 100 mcg tablet RxNorm: 679790 1 Tablet(s) PO daily 01/02/2016 Inactive metoprolol succinate ER 50 mg tablet,extended release 24 hr RxNorm: 216642 1 Tablet(s) PO daily 10/04/2015 04/30/2016 Inactive Tylenol Arthritis 650 mg tablet,extended release RxNorm: 0640006 2 Tablet(s) PO TID 09/10/2015 No Stop Date Active metoprolol succinate ER 50 mg tablet,extended release 24 hr RxNorm: 467786 1 Tablet(s) PO daily 09/05/2015 10/03/2015 Inactive pravastatin 80 mg tablet RxNorm: 447137 1 Tablet(s) PO QHS 08/30/2015 Inactive pravastatin 40 mg tablet RxNorm: 302172 1 Tablet(s) PO BID 08/29/2015 Inactive Cancel 80 mg tab pravastatin 40 mg tablet RxNorm: 339454 1 Tablet(s) PO BID 08/19/2016 Inactive Cancel 80 mg tab lisinopril 10 mg tablet RxNorm: 165731 1 Tablet(s) PO BID 06/1308/11/2016 Inactive lisinopril 10 mg tablet RxNorm: 813475 1 Tablet(s) PO BID 06/1310/03/2015 Inactive Synthroid 100 mcg tablet RxNorm: 873143 1 Tablet(s) PO daily 10/03/2015 Inactive ceftriaxone 1 gram solution for injection RxNorm: 2268983 Inj 03/01/2015 03/01/2015 Inactive ceftriaxone 1 gram solution for injection RxNorm: 4664258 Inj 02/28/2015 02/28/2015 Inactive ceftriaxone 1 gram solution for injection RxNorm: 7185958 Inj 02/27/2015 02/27/2015 Inactive ceftriaxone 1 gram solution for injection RxNorm: 5838445 Inj 02/26/2015 02/26/2015 Inactive ceftriaxone 1 gram solution for injection RxNorm: 5512791 Inj 02/25/2015 02/25/2015 Inactive phenazopyridine 200 mg tablet RxNorm: 9709197 1 Tablet(s) PO Q8 02/21/2015 02/20/2015 Inactive Cipro 500 mg tablet RxNorm: 503049 1 Tablet(s) PO BID 201402/20/2015 Inactive phenazopyridine 200 mg tablet RxNorm: 0287189 1 Tablet(s) PO Q8 02/21/2015 02/25/2015 Inactive Cipro 500 mg tablet RxNorm: 755772 1 Tablet(s) PO BID 201402/27/2015 Inactive lisinopril 10 mg tablet RxNorm: 841396 1 Tablet(s) PO BID 02/1406/12/2015 Inactive metoprolol succinate ER 50 mg tablet,extended release 24 hr RxNorm: 359647 3/4 Tablet(s) PO daily 02/11/2015 09/04/2015 Inactive Voltaren 1 % topical gel RxNorm: 918728 2 Gram(s) TOP QID use this on affected joints up to four times daily. 02/11/2015 03/12/2015 Inactive Probiotic oral RxNorm : 6205 oral No Start Date Active aspirin 81 mg tablet RxNorm: 392805 1 Tablet(s) PO daily No Start Date Active Super B-Complex tablet RxNorm: 1 Tablet(s) PO No Start Date Active Flonase Allergy Relief 50 mcg/actuation nasal spray, suspension RxNorm: 1348858 1 Fulda NASAL BID No Start Date Active Super-D3+ oral RxNorm : oral No Start Date Active Prilosec OTC 20 mg tablet,delayed release RxNorm: 415325 2 Tablet(s) PO QAM No Start Date Active Flonase Allergy Relief 50 mcg/actuation nasal spray, suspension RxNorm: 2309789 1 Fulda NASAL as needed No Start Date Active Move Free Ultra 40 mg-10 mg-3.3 mg tablet RxNorm: 1 Tablet(s) PO daily No Start Date Active metoprolol tartrate 50 mg tablet RxNorm: 356484 1 Tablet(s) PO daily No Start Date 02/10/2015 Inactive lisinopril 10 mg tablet RxNorm: 372408 1 Tablet(s) PO BID No Start Date 02/13/2015 Inactive pravastatin 80 mg tablet RxNorm: 376054 1 Tablet(s) PO daily No Start Date 08/29/2015 Inactive Synthroid 100 mcg tablet RxNorm: 349757 1 Tablet(s) PO daily No Start Date 06/09/2015 Inactive lisinopril 40 mg tablet RxNorm: 666348 1 Tablet(s) PO BID No Start Date 02/28/2018 Inactive Tylenol Arthritis 650 mg tablet,extended release RxNorm: 5972809 4 Tablet(s) PO daily No Start Date 09/09/2015 Inactive Medication Administered Medication Codes Instructions Start Date Status Kenalog 40 mg/mL suspension for injection RxNorm: 2150036 Milliliter 12/24/2017 No longer Active Kenalog 40 mg/mL suspension for injection RxNorm: 1225289 1Milliliter 03/25/2017 No longer Active Kenalog 40 mg/mL suspension for injection RxNorm: 2664029 Milliliter 12/08/2016 No longer Active ceftriaxone 1 gram solution for injection RxNorm: 9177138 03/01/2015 No longer Active ceftriaxone 1 gram solution for injection RxNorm: 7916088 02/28/2015 No longer Active ceftriaxone 1 gram solution for injection RxNorm: 2912807 02/27/2015 No longer Active ceftriaxone 1 gram solution for injection RxNorm: 6279351 02/26/2015 No longer Active ceftriaxone 1 gram solution for injection RxNorm: 8886749 02/25/2015 No longer Active Immunizations Vaccine Codes [...] growth sent to ref lab 11/19/2017 B12 Gxc868 B12 712.00 pg/ml 09/28/2017 C-Reactive Protein Qnt Crqnt CRP 0.1 mg/dl 09/23/2017 Comp Metabolic Etm537 NA 139 mEq/L 09/23/2017 Comp Metabolic Gfy138 K 4.8 mEq/L 09/23/2017 Comp Metabolic Nen830 CL 104 mEq/L 09/23/2017 Comp Metabolic Ize799 CO2 28.0 mEq/L 09/23/2017 Comp Metabolic Nsu997 ANION GAP 12 09/23/2017 Comp Metabolic Vaa376 GLUCOSE 92 mg/dL 09/23/2017 Comp Metabolic Qmp503 Creat 0.7 mg/dL 09/23/2017 Comp Metabolic Num970 eGFR 91 ml/min/1.73m2 09/23/2017 Comp Metabolic Cbc059 BUN 11 mg/dL 09/23/2017 Comp Metabolic Nbw525 B/C Ratio 16.4 Ratio 09/23/2017 Comp Metabolic Rsn600 CALCIUM 9.0 mg/dL 09/23/2017 Comp Metabolic Jcn916 ALK PHOS 76 U/L 09/23/2017 Comp Metabolic Oxf722 AST(SGOT) 24 U/L 09/23/2017 Comp Metabolic Zov460 ALT(SGPT) 21 U/L 09/23/2017 Comp Metabolic Fvw274 BILI T 0.3 mg/dL 09/23/2017 Comp Metabolic Kln504 ALBUMIN 4.1 g/dL 09/23/2017 Comp Metabolic Qcm945 TPRO 6.2 g/dL 09/23/2017 Comp Metabolic Asi177 GLOB 2.1 g/dL 09/23/2017 Comp Metabolic Bxt326 A/G Ratio 1.9 Ratio 09/23/2017 Comp Metabolic Ity127 Osmo 277 mOsmo 09/23/2017 Sed Rate Ord21 ESR 3 mm/hr 09/22/2017 Vitamin D 25 Oh Eiw4560 VITAMIN D, 25 HYDROXY 78.79 ng/mL Tsh [...] 97.1 fl 09/22/2017 Cbc With Differential Ord2 Kings% 10.5 % 09/22/2017 Cbc With Differential Ord2 [...] 2.37 K/ul 09/22/2017 Cbc With Differential Ord2 Kings ABS# 0.9 K/ul 09/22/2017 Cbc With Differential Ord2 Eos ABS# 0.2 K/ul 09/22/2017 Cbc With Differential Ord2 Baso ABS# 0.0 K/ul 09/22/2017 Free T4 Psg845 FREE T4 0.99 ng/dL 09/22/2017 %Hba1C Dmt725 % HbA1c 86654-4 6.0 % 12/10/2016 %Hba1C Ogd849 Gluc Ave 126 mg/dL 12/10/2016 Tsh Ord6 hTSH II 0.89 uIU/mL 12/09/2016 Free T4 Vkg133 FREE T4 0.99 ng/dL 12/09/2016 Comp Metabolic Xle547 NA 138 mEq/L 12/09/2016 Comp Metabolic Wru812 K 5.2 mEq/L 12/09/2016 Comp Metabolic Bfo586 CL 104 mEq/L 12/09/2016 Comp Metabolic Sdi829 CO2 29.0 mEq/L 12/09/2016 Comp Metabolic Qxw738 ANION GAP 10 12/09/2016 Comp Metabolic Fcz340 GLUCOSE 135 mg/dL 12/09/2016 Comp Metabolic Qhz439 Creat 0.8 mg/dL 12/09/2016 Comp Metabolic Msn308 eGFR 79 ml/min/1.73m2 12/09/2016 Comp Metabolic Xzi830 BUN 18 mg/dL 12/09/2016 Comp Metabolic Ijv333 B/C Ratio 23.7 Ratio 12/09/2016 Comp Metabolic Rer574 CALCIUM 9.5 mg/dL 12/09/2016 Comp Metabolic Lqh766 ALK PHOS 73 U/L 12/09/2016 Comp Metabolic Ufp159 AST(SGOT) 24 U/L 12/09/2016 Comp Metabolic Vgx706 ALT(SGPT) 20 U/L 12/09/2016 Comp Metabolic Lxi801 BILI T 0.3 mg/dL 12/09/2016 Comp Metabolic Pkq312 ALBUMIN 4.3 g/dL 12/09/2016 Comp Metabolic Ada774 TPRO 6.4 g/dL 12/09/2016 Comp Metabolic Yor013 GLOB 2.1 g/dL 12/09/2016 Comp Metabolic Puu561 A/G Ratio 2.0 Ratio 12/09/2016 Comp Metabolic Roj746 Osmo 280 mOsmo 12/09/2016 Cbc With Differential Ord2 WBC 8.96 K/ul 12/09/2016 Cbc With Differential Ord2 RBC 4.12 M/ul 12/09/2016 Cbc With Differential Ord2 HGB 12.9 g/dl 12/09/2016 Cbc With Differential Ord2 Neut% 71.2 % 12/09/2016 Cbc With Differential Ord2 HCT 38.9 % 12/09/2016 Cbc With Differential Ord2 MCV 94.4 fl 12/09/2016 Cbc With Differential Ord2 Lymph% 20.5 % 12/09/2016 Cbc With Differential Ord2 Kings% 6.5 % 12/09/2016 Cbc With Differential Ord2 MCH 31.3 pg 12/09/2016 Cbc With Differential Ord2 MCHC 33.2 pg 12/09/2016 Cbc With Differential Ord2 Eos% 1.1 % 12/09/2016 Cbc With Differential Ord2 Baso% 0.7 % 12/09/2016 Cbc With Differential Ord2 PLT 247 K/ul 12/09/2016 Cbc With Differential Ord2 Neut ABS# 6.38 K/ul 12/09/2016 Cbc With Differential Ord2 RDW 13.1 % 12/09/2016 Cbc With Differential Ord2 Lymph ABS# 1.84 K/ul 12/09/2016 Cbc With Differential Ord2 Kings ABS# 0.6 K/ul 12/09/2016 Cbc With Differential Ord2 Eos ABS# 0.1 K/ul 12/09/2016 Cbc With Differential Ord2 Baso ABS# 0.1 K/ul 12/09/2016 Tsh Ord6 hTSH II 1.19 uIU/mL 09/02/2016 Free T4 Bwn340 FREE T4 0.97 ng/dL 09/02/2016 Comp Metabolic Hut713 NA 137 mEq/L 06/01/2016 Comp Metabolic Xgn312 K 4.1 mEq/L 06/01/2016 Comp Metabolic Dde081 CL 104 mEq/L 06/01/2016 Comp Metabolic Nwg330 CO2 25.0 mEq/L 06/01/2016 Comp Metabolic Nar798 ANION GAP 12 06/01/2016 Comp Metabolic Ahb902 GLUCOSE 108 mg/dL 06/01/2016 Comp Metabolic Tax871 Creat 0.8 mg/dL 06/01/2016 Comp Metabolic Vex843 eGFR 80 ml/min/1.73m2 06/01/2016 Comp Metabolic Cav803 BUN 15 mg/dL 06/01/2016 Comp Metabolic Gfi976 B/C Ratio 20.0 Ratio 06/01/2016 Comp Metabolic Caa882 CALCIUM 9.1 mg/dL 06/01/2016 Comp Metabolic Vyz819 ALK PHOS 89 U/L 06/01/2016 Comp Metabolic Jig642 AST(SGOT) 25 U/L 06/01/2016 Comp Metabolic Llg026 ALT(SGPT) 20 U/L 06/01/2016 Comp Metabolic Flf300 BILI T 0.3 mg/dL 06/01/2016 Comp Metabolic Urr636 ALBUMIN 4.2 g/dL 06/01/2016 Comp Metabolic Sop223 TPRO 6.2 g/dL 06/01/2016 Comp Metabolic Xhh637 GLOB 2.0 g/dL 06/01/2016 Comp Metabolic Zfw045 A/G Ratio 2.1 Ratio 06/01/2016 Comp Metabolic Ipr203 Osmo 275 mOsmo 06/01/2016 Free T4 Xba190 FREE T4 0.94 ng/dL 06/01/2016 Tsh Ord6 [...] 31.1 pg 06/01/2016 Cbc With Differential Ord2 Kings% 8.4 % 06/01/2016 Cbc With Differential Ord2 [...] 2.96 K/ul 06/01/2016 Cbc With Differential Ord2 Kings ABS# 0.6 K/ul 06/01/2016 Cbc With Differential [...] 31.3 pg 02/27/2016 Cbc With Differential Ord2 Kings% 10.0 % 02/27/2016 Cbc With Differential Ord2 [...] 2.28 K/ul 02/27/2016 Cbc With Differential Ord2 Kings ABS# 0.9 K/ul 02/27/2016 Cbc With Differential Ord2 Eos ABS# 0.3 K/ul 02/27/2016 Cbc With Differential Ord2 Baso ABS# 0.1 K/ul 02/27/2016 Tsh Ord6 hTSH II 0.18 uIU/mL 02/27/2016 Free T4 Jfg549 FREE T4 1.17 ng/dL 02/27/2016 Comp Metabolic Alc567 NA 135 mEq/L 02/27/2016 Comp Metabolic Jfj444 K 5.2 mEq/L 02/27/2016 Comp Metabolic Xub548 CL 102 mEq/L 02/27/2016 Comp Metabolic Ucz258 CO2 27.0 mEq/L 02/27/2016 Comp Metabolic Isl041 ANION GAP 11 02/27/2016 Comp Metabolic Gew674 GLUCOSE 93 mg/dL 02/27/2016 Comp Metabolic Tvl837 Creat 0.7 mg/dL 02/27/2016 Comp Metabolic Apd471 eGFR 91 ml/min/1.73m2 02/27/2016 Comp Metabolic Xmd094 BUN 14 mg/dL 02/27/2016 Comp Metabolic Nqw411 B/C Ratio 20.9 Ratio 02/27/2016 Comp Metabolic Fqa059 CALCIUM 9.4 mg/dL 02/27/2016 Comp Metabolic Pbw743 ALK PHOS 100 U/L 02/27/2016 Comp Metabolic Gvg735 AST(SGOT) 23 U/L 02/27/2016 Comp Metabolic Bxa050 ALT(SGPT) 24 U/L 02/27/2016 Comp Metabolic Hwm708 BILI T 0.2 mg/dL 02/27/2016 Comp Metabolic Rso614 ALBUMIN 4.3 g/dL 02/27/2016 Comp Metabolic Err022 TPRO 6.3 g/dL 02/27/2016 Comp Metabolic Alw324 GLOB 2.1 g/dL 02/27/2016 Comp Metabolic Bqq561 A/G Ratio 2.1 Ratio 02/27/2016 Comp Metabolic Bye471 Osmo 270 mOsmo 02/27/2016 Free T4 Ufa711 FREE T4 1.03 ng/dL 05/10/2015 Comp Metabolic Tky614 NA 137 mEq/L 05/10/2015 Comp Metabolic Oll161 K 4.4 mEq/L 05/10/2015 Comp Metabolic Kuo006 CL 102 mEq/L 05/10/2015 Comp Metabolic Wgv996 CO2 28.0 mEq/L 05/10/2015 Comp Metabolic Pir824 ANION GAP 11 05/10/2015 Comp Metabolic Ble296 GLUCOSE 108 mg/dL 05/10/2015 Comp Metabolic Upr190 Creat 0.7 mg/dL 05/10/2015 Comp Metabolic Uaq666 eGFR 86 ml/min/1.73m2 05/10/2015 Comp Metabolic Ihd901 BUN 13 mg/dL 05/10/2015 Comp Metabolic Nrg327 B/C Ratio 18.3 Ratio 05/10/2015 Comp Metabolic Amv886 CALCIUM 9.4 mg/dL 05/10/2015 Comp Metabolic Afx900 ALK PHOS 94 U/L 05/10/2015 Comp Metabolic Klq278 AST(SGOT) 22 U/L 05/10/2015 Comp Metabolic Men483 ALT(SGPT) 21 U/L 05/10/2015 Comp Metabolic Ugv312 BILI T 0.3 mg/dL 05/10/2015 Comp Metabolic Qgl081 ALBUMIN 3.9 g/dL 05/10/2015 Comp Metabolic Mna870 TPRO 6.1 g/dL 05/10/2015 Comp Metabolic Tvb188 GLOB 2.2 g/dL 05/10/2015 Comp Metabolic Xco736 A/G Ratio 1.7 Ratio 05/10/2015 Comp Metabolic Mqw473 Osmo 274 mOsmo 05/10/2015 Tsh Ord6 hTSH [...] 29.4 pg 05/10/2015 Cbc With Differential Ord2 Kings% 9.0 % 05/10/2015 Cbc With Differential Ord2 [...] 2.14 K/ul 05/10/2015 Cbc With Differential Ord2 Kings ABS# 0.5 K/ul 05/10/2015 Cbc With Differential [...] Ord30 C/HDL 3.8 Ratio 05/10/2015 Culture Urine [id number] URINE CULTURE SEE NOTES 02/25/2015 Culture Urine [id number] Continued Results 02/25/2015 Urine Culture Ucult Complete >100,000 col/ml aerobic growth sent to ref lab 02/22/2015 Free T4 Pwk913 FREE T4 1.16 ng/dL 02/11/2015 Tsh Ord6 [...] -4: G0439 12/24/2017 THER/PROPH/DIAG INJ SC/IM CPT-4: 32692 12/24/2017 TRIAMCINOLONE ACET INJ NOS CPT-4: J3301 12/24/2017 THER/PROPH/DIAG INJ SC/IM CPT-4: 76004 11/18/2017 ROCEPHIN, PER 250 MG CPT-4: J0696 11/18/2017 PRESCRIP TRANSMIT VIA ERX SY CPT-4: G8553 04/01/2017 TRIAMCINOLONE ACET INJ NOS CPT-4: J3301 03/25/2017 PPPS, SUBSEQ VISIT CPT -4: G0439 12/23/2016 THER/PROPH/DIAG INJ SC/IM CPT-4: 24640 12/08/2016 TRIAMCINOLONE ACET INJ NOS CPT-4: J3301 12/08/2016 PRESCRIP TRANSMIT VIA ERX SY CPT-4: G8553 12/08/2016 PRESCRIP TRANSMIT VIA ERX SY CPT-4: G8553 11/30/2016 URINALYSIS NONAUTO W/O SCOPE CPT-4: 01758 07/08/2016 PRESCRIP TRANSMIT VIA ERX SY CPT-4: G8553 06/01/2016 PRESCRIP TRANSMIT VIA ERX SY CPT-4: G8553 02/27/2016 THER/PROPH/DIAG INJ SC/IM CPT-4: 68730 03/01/2015 ROCEPHIN, PER 250 MG CPT-4: J0696 03/01/2015 THER/PROPH/DIAG INJ SC/IM CPT-4: 01905 02/28/2015 ROCEPHIN, PER 250 MG CPT-4: J0696 02/28/2015 THER/PROPH/DIAG INJ SC/IM CPT-4: 35965 02/27/2015 ROCEPHIN, PER 250 MG CPT-4: J0696 02/27/2015 THER/PROPH/DIAG INJ SC/IM CPT-4: 55891 02/26/2015 ROCEPHIN, PER 250 MG CPT-4: J0696 02/26/2015 THER/PROPH/DIAG INJ SC/IM CPT-4: 74486 02/25/2015 ROCEPHIN, PER 250 MG CPT-4: J0696 02/25/2015 URINALYSIS NONAUTO W/O SCOPE CPT-4: 53857 02/21/2015 Vital Signs Date Vital 03/01/2018 Blood Pressure 1: 136/70 Code : 8480-6 BMI: 27.8 Code : 69720-4 Heart Rate 1 : 70 bpm Height: 5'3" SpO2: 96% Weight: 157 lbs 12/24/2017 Height: Weight: 11/18/2017 Blood Pressure 1: 164/74 Code : 8480-6 BMI: 27.6 Code : 55476-6 Heart Rate 1 : 70 bpm Height: 5'3" SpO2: 96% Weight: 156 lbs 11/03/2017 Blood Pressure 1: 118/72 Code : 8480-6 BMI: 27.6 Code : 54733-4 Heart Rate 1 : 82 bpm Height: 5'3" SpO2: 96% Weight: 156 lbs 09/22/2017 Blood Pressure 1: 136/68 Code : 8480-6 BMI: 27.6 Code : 15682-9 Heart Rate 1 : 70 bpm Height: 5'3" SpO2: 97% Weight: 156 lbs 04/01/2017 Blood Pressure 1: 144/82 Code : 8480-6 Heart Rate 1: 68 bpm Height: 5'3" SpO2: 97% Weight: 03/25/2017 Blood Pressure 1: 116/70 Code : 8480-6 BMI: 26.7 Code : 03791-3 Heart Rate 1 : 67 bpm Height: 5'3" SpO2: 98% Weight: 151 lbs 12/23/2016 BMI: 26.7 Code: 65949-3 Height: 5'3" Weight: 151 lbs 12/22/2016 Blood Pressure 1: 142/60 Code : 8480-6 BMI: 26.7 Code : 37672-4 Heart Rate 1 : 67 bpm Height: 5'3" SpO2: 98% Weight: 151 lbs 12/08/2016 Blood Pressure 1: 140/72 Code : 8480-6 Heart Rate 1: 72 bpm Height: 5'3" SpO2: 97% Weight: 11/30/2016 Blood Pressure 1: 128/80 Code : 8480-6 BMI: 26.7 Code : 05041-6 Heart Rate 1 : 63 bpm Height: 5'3" SpO2: 96% Weight: 151 lbs 09/28/2016 Blood Pressure 1: 130/80 Code : 8480-6 BMI: 27.1 Code : 33126-2 Heart Rate 1 : 80 bpm Height: 5'3" SpO2: 97% Weight: 153 lbs 07/06/2016 Blood Pressure 1: 162/72 Code : 8480-6 BMI: 27.6 Code : 75312-7 Heart Rate 1 : 72 bpm Height: 5'3" SpO2: 98% Weight: 156 lbs 06/01/2016 Blood Pressure 1: 122/66 Code : 8480-6 BMI: 27.5 Code : 69140-3 Heart Rate 1 : 73 bpm Height: 5'3" SpO2: 98% Weight: 155 lbs 8 oz 02/27/2016 Blood Pressure 1: 126/68 Code : 8480-6 BMI: 26.9 Code : 29952-4 Heart Rate 1 : 70 bpm Height: 5'3" SpO2: 98% Weight: 152 lbs 09/10/2015 Blood Pressure 1: 130/70 Code : 8480-6 BMI: 26.9 Code : 69965-2 Heart Rate 1 : 72 bpm Height: 5'3" SpO2: 97% Weight: 152 lbs 05/14/2015 Blood Pressure 1: 138/82 Code : 8480-6 BMI: 26.4 Code : 60689-3 Heart Rate 1 : 75 bpm Height: 5'3" SpO2: 98% Weight: 149 lbs 02/11/2015 Blood Pressure 1: 128/72 Code : 8480-6 BMI: 25.5 Code : 08910-3 Heart Rate 1 : 73 bpm Height: [...] Directive data Encounters Encounter Performer Location Codes ([id number]) [id number] EST. PATIENT, LEVEL IV Diagnosis: Otalgia, right ear[ICD10: H92.01] Diagnosis: Headache[ICD10: R51] Diagnosis: Other fatigue[ICD10: R53.83] Diagnosis: Abnormal findings on diagnostic imaging of other specified body structures[ICD10: R93.89] Elen Cortez MD, [facility] CPT-4: 01126 03/01/2018 [id number] EST. PATIENT, LEVEL III Diagnosis: Acute cystitis with hematuria[ICD10: N30.01] Bridget Cortez MD, [facility] CPT-4: 30982 11/18/2017 57097 EST. PATIENT, LEVEL IV Diagnosis: Other acute sinusitis[ICD10: J01.80] Diagnosis: Otalgia, right ear[ICD10: H92.01] Bridget Cortez MD, [facility] CPT -4: 71311 11/03/2017 72206 EST. PATIENT, LEVEL III Diagnosis: Other fatigue[ICD10: R53.83] Diagnosis: Other malaise[ICD10: R53.81] Diagnosis: Pain in left knee[ICD10: M25.562] Diagnosis: Pain in right knee[ICD10: M25.561] Bridget Cortez MD, [facility] CPT-4: 16116 09/22/2017 ([id number]) 56604 EST. PATIENT, LEVEL III Diagnosis: Cough[ICD10: R05] Diagnosis: Acute bronchitis due to other specified organisms[ICD10: J20.8] Elen Cortez MD, [facility] CPT-4: 69975 04/01/2017 ([id number]) 43153 EST. PATIENT, LEVEL III Diagnosis: Otalgia, right ear[ICD10: H92.01] Diagnosis: Other allergic rhinitis[ICD10: J30.89] Shiela Cortez MD, [facility] CPT-4: 68023 03/25/2017 ([id number]) 56904 EST. PATIENT, LEVEL III Diagnosis: Benign paroxysmal vertigo, bilateral[ICD10: H81.13] Shiela Cortez MD, [facility] CPT-4: 50079 12/22/2016 ([id number]) 66444 EST. PATIENT, LEVEL IV Diagnosis: Benign paroxysmal vertigo, bilateral[ICD10: H81.13] Diagnosis: Other allergic rhinitis[ICD10: J30.89] Diagnosis: Hypothyroidism, unspecified[ICD10: E03.9] Shiela Cortez MD, [facility] CPT-4: 70532 12/08/2016 ([id number]) 14032 EST. PATIENT, LEVEL IV Diagnosis: Atrophy of thyroid (acquired)[ICD10: E03.4] Diagnosis: Essential (primary) hypertension[ICD10: I10] Diagnosis: Mixed hyperlipidemia[ICD10: E78.2] Elen Cortez MD, [facility] CPT-4: 11077 11/30/2016 44164 EST. PATIENT, LEVEL IV Diagnosis: Headache[ICD10: R51] Diagnosis: Other fatigue[ICD10: R53.83] Diagnosis: Dizziness and giddiness[ICD10: R42] Bridget Cortez MD, [facility] CPT-4: 78670 09/28/2016 67214 EST. PATIENT, LEVEL IV Diagnosis: Essential (primary) hypertension[ICD10: I10] Diagnosis: Headache[ICD10: R51] Bridget Cortez MD, [facility] CPT-4: 47590 07/06/2016 ([id number]) 28753 EST. PATIENT, LEVEL IV Diagnosis: Essential (primary) hypertension[ICD10: I10] Diagnosis: Atrophy of thyroid (acquired)[ICD10: E03.4] Diagnosis: Mixed hyperlipidemia[ICD10: E78.2] Elen Cortez MD, [facility] CPT-4: 06806 06/01/2016 04632 EST. PATIENT, LEVEL IV Diagnosis: Acute laryngopharyngitis[ICD10: J06.0] Diagnosis: Other allergic rhinitis[ICD10: J30.89] Diagnosis: Other specified hypothyroidism[ICD10: E03.8] Diagnosis: Other fatigue[ICD10: R53.83] Bridget Cortez MD, [facility] CPT-4 : 20185 02/27/2016 ([id number]) 79141 EST. PATIENT, LEVEL III Diagnosis: Essential (primary) hypertension[ICD10: I10] Diagnosis: Mixed hyperlipidemia[ICD10: E78.2] Elen Cortez MD, [facility] CPT-4: 71205 09/10/2015 ([id number]) 47204 EST. PATIENT, LEVEL IV Diagnosis: Essential (primary) hypertension[ICD10: I10] Diagnosis: Hypothyroidism, unspecified[ICD10: E03.9] Diagnosis: Unspecified osteoarthritis, unspecified site[ICD10: M19.90] [facility] CPT-4: 77681 05/14/2015 ([id number]) OFFICE VISIT, NEW - LEVEL 4 Diagnosis: Essential (primary) hypertension[ICD10: I10] Diagnosis: Hypothyroidism, unspecified[ICD10: E03.9] Diagnosis: Unspecified osteoarthritis, unspecified site[ICD10: M19.90] [facility] CPT-4: 47375 02/11/2015 Plan of Care Planned Activity Notes Codes Status Date Appointment: Elen Cortez WPtel: [phone] [facility] (15 min) Moderate 03/01/2018 Patient Education: Patient Medication Summary Completed 03/01/2018 Appointment: Bridget Velazco WPtel: [facility] [place] MCR - Annual Wellness Visit 12/24/2017 Patient Education: Patient Medication Summary Completed 12/24/2017 Appointment: [phone] [place] (15 min) Moderate 11/30/2017 Appointment: Lab Draw 11/29/2017 Appointment: Bridget Velazco WPtel: [facility] [place] (15 min) Moderate 11/18/2017 Patient Education: Patient Medication Summary Completed 11/18/2017 Appointment: [phone] [place] (15 min) Moderate 11/03/2017 Patient Education: Patient Medication Summary Completed 11/03/2017 Patient Education: Patient Medication Summary Completed 09/27/2017 Appointment: Bridget Velazco WPtel: [phone] [facility] [place] (15 min) Moderate 09/22/2017 Patient Education: Patient Medication Summary Completed 09/22/2017 [phone] ([facility] min) Moderate 04/01/2017 Patient Education: Patient Medication Summary Completed 04/01/2017 Appointment: Shiela Srivastava WPtel: [phone] [phone] [place] (10 min) Simple 03/25/2017 Appointment: [phone] (15 min) Moderate 03/25/2017 Patient Education: Patient Medication Summary Completed 03/25/2017 Appointment: [phone] [facility] - Annual Wellness Visit 12/23/2016 Patient Education: Patient Medication Summary Completed 12/23/2016 Appointment: Shiela Srivastava WPtel: [phone] [place] (30 min) Complex 12/22/2016 Patient Education: Patient Medication Summary Completed 12/22/2016 Patient Education: Patient Medication Summary Completed 12/09/2016 Appointment: Shiela Srivastava WPtel: [phone] [place] (30 min) Complex 12/08/2016 Patient Education: Patient Medication Summary Completed 12/08/2016 Patient Education: .Amazing charts Paroxysmal positional vertigo Completed Appointment: Elen Cortez WPtel: [facility] (15 min) Moderate 11/30/2016 Patient Education: Patient Medication Summary Completed 11/30/2016 Patient Education: Hypertension Completed 11/30/2016 Appointment: [phone] [place] (30 min) Complex 09/28/2016 Patient Education: Patient Medication Summary Completed 09/28/2016 Patient Education: Patient Medication Summary Completed 09/01/2016 Appointment: Lab Draw 07/08/2016 Patient Education: Patient Medication Summary Completed 07/08/2016 Appointment: [phone] (15 min) Moderate 07/06/2016 Patient Education: Patient Medication Summary Completed 07/06/2016 Appointment: [facility] oCrtez [phone] (15 min) Moderate 06/01/2016 Patient Education: Patient Medication Summary Completed 06/01/2016 Patient Education: Hypertension Completed 06/01/2016 Appointment: [phone] (30 min) Complex 02/27/2016 Patient Education: Patient Medication Summary Completed 02/27/2016 Patient Education: Patient Medication Summary Completed 09/27/2015 Care Plan: SCREENINGMAMMOGRAPHYDIGITAL LOINC : 25146-7 Pending 09/27/2015 Appointment: Elen Cortez WPtel: [facility] (15 min) Moderate 09/10/2015 Patient Education: Patient Medication Summary Completed 09/10/2015 Referral: Dr. Ming Kessler WPtel: Referral Completed 05/22/2015 Appointment: Elen Cortez WPtel: [facility] (15 min) Moderate 05/14/2015 Patient Education: Patient Medication Summary Completed 05/14/2015 Patient Education: Hypertension Completed 05/14/2015 Care Plan: Referral Order SNOMED-CT : [id number] Ordered 05/14/2015 Patient Education: Patient Medication Summary Completed 03/01/2015 Appointment: Nurse Visit 02/28/2015 Patient Education: Patient Medication Summary Completed 02/28/2015 Patient Education: Patient Medication Summary Completed 02/27/2015 Appointment: Nurse Visit 02/26/2015 Patient Education: Patient Medication Summary Completed 02/26/2015 Appointment: Injection 02/25/2015 Patient Education: Patient Medication Summary Completed 02/25/2015 Patient Education: Patient Medication Summary Completed 02/21/2015 Care Plan: URINALYSIS NONAUTO W/O SCOPE LOINC : 02284-6 Ordered 02/21/2015 Appointment: Elen Cortez WPtel: [address] [place], [place] [id number] New Patient 02/11/2015 Patient Education: Patient Medication Summary Completed 02/11/2015 Patient Education: Hypertension Completed 02/11/2015 Referral: Dr. Ming Kessler WPtel: Referral Appointment Requested Instructions No Instructions
--- OUTSIDE RECORDS SUMMARY | 2018-06-01 13:20 | XMS REPORT | CCD ---
Author Author [facility] Organization [facility] Address [address] [place] [address] Phone Care Team Providers Care [place] Supervisor Name Role Phone PP Unavailable CCM Unavailable Summary Purpose Interface Exchange Insurance Providers Payer name Policy type / Coverage type Covered libertarian ID Effective Begin Date Effective End Date WPS Medicare Part B Medicare Part B [id number] Unknown [place] [employer] Medicare Part B [id number] Unknown Family history Mother Diagnosis Age At [...] spouses - 02/11/[address]: 056843070 Never smoker 02/11/2015 Alcohol history Unknown occasionally drinks alcohol 02/11/2015 Allergies, Adverse Reactions, Alerts Substance Reaction Codes Entered Date Inactivated Date Status CODEINE RxNorm: 2670 02/11/2015 No Inactive Date Active allergy Unknown 12/23/2016 No Inactive Date Active ciprofloxacin rash, RxNorm: 18831 02/26/2015 No Inactive Date Active hydrocodone Unknown [...] Start Date Stop Date Status Fill Instructions pravastatin 80 mg tablet RxNorm: 763801 Tablet(s) 1 Tablet(s) PO daily 03/01/2018 02/23/2019 Active Kenalog 40 mg/mL suspension for injection RxNorm: 9449513 Milliliter(s) Inj 12/24/2017 12/24/2017 Inactive cetirizine 10 mg tablet RxNorm: 1898873 TAKE 1 TABLET BY MOUTH DAILY 12/21/2017 07/18/2018 Active Generic For:*ZYRTEC 10 MG TABLET 12/21/2017 10:08:05 AM Synthroid 88 mcg tablet RxNorm: 629253 TAKE 1 TABLET BY MOUTH DAILY 12/07/2017 03/06/2018 Active 12/06/2017 11:46:49 AM Lipitor 80 mg tablet RxNorm: 511575 1 Tablet(s) PO daily 201702/28/2018 Inactive pravastatin 80 mg tablet RxNorm: 809673 1 Tablet(s) PO daily 11/29/2017 Inactive Lipitor 80 mg tablet RxNorm: 280679 1 Tablet(s) PO daily 201711/28/2017 Inactive lisinopril 20 mg tablet RxNorm: 461686 TAKE 1 TABLET BY MOUTH TWICE DAILY 11/23/2017 04/21/2018 Active Generic For:*PRINIVIL 20 MG TABLET 11/23/2017 11:29:44 AM Macrobid 100 mg capsule RxNorm: 400836 1 Capsule(s) PO BID 06/201711/25/2017 Inactive Macrobid 100 mg capsule RxNorm: 210377 1 Capsule(s) PO BID 06/201711/18/2017 Inactive Lomotil 2.5 mg-0.025 mg tablet RxNorm: 3581668 1 -2 Tablet(s) PO TID as needed 11/19/2017 11/25/2017 Inactive Lomotil 2.5 mg-0.025 mg tablet RxNorm: 7562032 1 -2 Tablet(s) PO TID as needed 11/19/2017 11/18/2017 Inactive Pyridium 200 mg tablet RxNorm: 7739255 1 Tablet(s) PO TID as needed 11/18/2017 11/22/2017 Inactive Augmentin 500 mg-125 mg tablet RxNorm: 858663 1 Tablet(s) PO TID 11/18/2017 11/27/2017 Inactive Keflex 500 mg capsule RxNorm: 023471 1 Capsule(s) PO TID 201711/09/2017 Inactive Denavir 1 % topical cream RxNorm: 623630 1 TOP TID as needed cold sores 11/01/2017 01/29/2018 Inactive Denavir 1 % topical cream RxNorm: 082721 1 TOP TID as needed cold sores 11/01/2017 10/31/2017 Inactive Synthroid 88 mcg tablet RxNorm: 618929 TAKE 1 TABLET BY MOUTH DAILY 09/29/2017 11/27/2017 Inactive 09/29/2017 12:58:07 PM pravastatin 80 mg tablet RxNorm: 892340 1 Tablet(s) PO daily 08/30/2017 Inactive pravastatin 80 mg tablet RxNorm: 180994 1 Tablet(s) PO daily 11/28/2017 Inactive Synthroid 88 mcg tablet RxNorm: 676297 TAKE 1 TABLET BY MOUTH DAILY 08/30/2017 09/28/2017 Inactive 08/30/2017 10:53:26 AM metoprolol succinate ER 50 mg tablet,extended release 24 hr RxNorm: 633480 Tablet (s) TAKE 1 TABLET BY MOUTH DAILY 08/17/2017 03/14/2018 Active PLEASE SEND REFILL REQUESTS ELECTRONICALLY!! lisinopril 20 mg tablet RxNorm: 411806 TAKE 1 TABLET BY MOUTH TWICE DAILY 06/18/2017 11/14/2017 Inactive Generic For:*PRINIVIL 20 MG TABLET 06/18/2017 1:31: 00 PM Synthroid 88 mcg tablet RxNorm: 300741 TAKE 1 TABLET BY MOUTH DAILY 05/24/2017 08/21/2017 Inactive 05/24/2017 2:13:21 PM cetirizine 10 mg tablet RxNorm: 0604785 1 Tablet(s) PO daily 12/12/2017 Inactive Zithromax Z-Russell 250 mg capsule RxNorm: 871571 1 Capsule(s) PO 04/02/2017 04/05/2017 Inactive Zithromax Z-Russell 250 mg tablet RxNorm: 810677 1 Tablet(s) PO 04/01/2017 Inactive Zithromax Z-Russell 250 mg capsule RxNorm: 330464 1 Capsule(s) PO 04/02/2017 04/01/2017 Inactive Zithromax Z-Russell 250 mg tablet RxNorm: 025399 1 Tablet(s) PO 04/06/2017 Inactive Ventolin HFA 90 mcg/actuation aerosol inhaler RxNorm: 574440 2 INH QID as needed - for the first 3 days inhale at least two puffs three times daily, then use as needed for shortness of breath 04/01/2017 04/30/2017 Inactive Keflex 500 mg capsule RxNorm: 048250 1 Capsule(s) PO TID 201604/01/2017 Inactive meclizine 25 mg tablet RxNorm: 982066 1 Tablet(s) PO Q6 PRN 1 Tablet(s) PO Q6 PRN 03/25/2017 No Stop Date Active dizziness meclizine 25 mg tablet RxNorm: 551975 Tablet(s) 1 Tablet(s) PO Q6 PRN 03/25/2017 03/24/2017 Inactive dizziness Kenalog 40 mg/mL suspension for injection RxNorm: 7808289 1 Milliliter(s) Inj 03/25/2017 03/25/2017 Inactive meclizine 25 mg tablet RxNorm: 112097 1 Tablet(s) PO Q6 PRN 03/24/2017 Inactive dizziness lisinopril 20 mg tablet RxNorm: 905699 1 Tablet(s) PO BID 01/1506/13/2017 Inactive metoprolol succinate ER 50 mg tablet,extended release 24 hr RxNorm: 355993 TAKE 1 TABLET BY MOUTH DAILY 01/07/20172017 Inactive Generic For:TOPROL XL 50MG TAB 01/07/2017 12:38:23 PM Synthroid 88 mcg tablet RxNorm: 520070 TAKE 1 TABLET BY MOUTH DAILY 12/25/2016 05/23/2017 Inactive 12/25/2016 9:47:08 AM Zithromax Z-Russell 250 mg tablet RxNorm: 221528 Tablet(s) PO UD 03/24/2017 Inactive meclizine 25 mg tablet RxNorm: 195076 1 Tablet(s) PO Q6 PRN 12/20/2016 Inactive dizziness Kenalog 40 mg/mL suspension for injection RxNorm: 8784788 Milliliter(s) Inj 12/08/2016 12/08/2016 Inactive meloxicam 15 mg tablet RxNorm: 887017 1 Tablet(s) PO daily 12/20/2016 Inactive cetirizine 10 mg tablet RxNorm: 4046085 1 Tablet(s) PO daily 05/16/2017 Inactive pravastatin 40 mg tablet RxNorm: 557339 1 Tablet(s) PO BID 07/201608/30/2017 Inactive Cancel 80 mg tab lisinopril 20 mg tablet RxNorm: 759723 1 Tablet(s) PO BID 08/1212/22/2016 Inactive Synthroid 88 mcg tablet RxNorm: 740852 1 Tablet(s) PO TAKE ONE (1) TABLET BY MOUTH DAILY 07/28/2016 12/24/2016 Inactive decrease dose hydralazine 25 mg tablet RxNorm: 165786 1 Tablet(s) PO TID as needed for Systolic blood pressure over 170 07/06/20162016 Inactive lisinopril 20 mg tablet RxNorm: 706471 1 Tablet(s) PO BID to replace your other lisinopril dose 07/06/2016 08/04/2016 Inactive lisinopril 10 mg tablet RxNorm: 167968 TAKE ONE TABLET BY MOUTH TWICE DAILY 06/10/2016 08/11/2016 Inactive Generic For:ZESTRIL 10 MG TABLET 06/09/2016 12:58: 50 PM triamcinolone acetonide 0.1 % topical cream RxNorm: 5923804 1 Application TOP TID as needed 06/01/2016 No Stop Date Active nystatin 100,000 unit/gram topical cream RxNorm: 151426 1 Gram(s) TOP TID as needed 06/01/2016 No Stop Date Active metoprolol succinate ER 50 mg tablet,extended release 24 hr RxNorm: 361086 1 Tablet(s) PO daily 05/26/2016 12/21/2016 Inactive cetirizine 10 mg tablet RxNorm: 7468425 1 Tablet(s) PO daily 10/18/2016 Inactive Synthroid 88 mcg tablet RxNorm: 484723 1 Tablet(s) PO TAKE ONE (1) TABLET BY MOUTH DAILY 03/06/2016 08/02/2016 Inactive Brand name only! Synthroid 88 mcg tablet RxNorm: 427207 1 Tablet(s) PO TAKE ONE (1) TABLET BY MOUTH DAILY 03/04/2016 03/05/2016 Inactive decrease dose cetirizine 10 mg tablet RxNorm: 7585657 1 Tablet(s) PO daily 03/22/2016 Inactive amoxicillin 500 mg capsule RxNorm: 428598 1 Capsule(s) PO TID 02/27/2016 03/04/2016 Inactive lisinopril 10 mg tablet RxNorm: 412810 TAKE ONE TABLET BY MOUTH TWICE DAILY 02/06/2016 06/04/2016 Inactive Generic For:ZESTRIL 10 MG TABLET 02/06/2016 12:16: 38 PM Synthroid 100 mcg tablet RxNorm: 057914 TAKE ONE (1) TABLET BY MOUTH DAILY 01/03/2016 03/03/2016 Inactive 01/03/2016 10:35:14 AM N O T I C E Last quantity doesn't match original quantity lisinopril 10 mg tablet RxNorm: 293626 1 Tablet(s) PO BID 10/0301/31/2016 Inactive Synthroid 100 mcg tablet RxNorm: 830908 1 Tablet(s) PO daily 01/02/2016 Inactive metoprolol succinate ER 50 mg tablet,extended release 24 hr RxNorm: 885554 1 Tablet(s) PO daily 10/04/2015 04/30/2016 Inactive Tylenol Arthritis 650 mg tablet,extended release RxNorm: 7245777 2 Tablet(s) PO TID 09/10/2015 No Stop Date Active metoprolol succinate ER 50 mg tablet,extended release 24 hr RxNorm: 385072 1 Tablet(s) PO daily 09/05/2015 10/03/2015 Inactive pravastatin 80 mg tablet RxNorm: 842938 1 Tablet(s) PO QHS 08/30/2015 Inactive pravastatin 40 mg tablet RxNorm: 396138 1 Tablet(s) PO BID 08/29/2015 Inactive Cancel 80 mg tab pravastatin 40 mg tablet RxNorm: 107396 1 Tablet(s) PO BID 08/19/2016 Inactive Cancel 80 mg tab lisinopril 10 mg tablet RxNorm: 683244 1 Tablet(s) PO BID 06/1308/11/2016 Inactive lisinopril 10 mg tablet RxNorm: 437684 1 Tablet(s) PO BID 06/1310/03/2015 Inactive Synthroid 100 mcg tablet RxNorm: 650407 1 Tablet(s) PO daily 10/03/2015 Inactive ceftriaxone 1 gram solution for injection RxNorm: 5933214 Inj 03/01/2015 03/01/2015 Inactive ceftriaxone 1 gram solution for injection RxNorm: 9461509 Inj 02/28/2015 02/28/2015 Inactive ceftriaxone 1 gram solution for injection RxNorm: 5085267 Inj 02/27/2015 02/27/2015 Inactive ceftriaxone 1 gram solution for injection RxNorm: 1174599 Inj 02/26/2015 02/26/2015 Inactive ceftriaxone 1 gram solution for injection RxNorm: 1249779 Inj 02/25/2015 02/25/2015 Inactive phenazopyridine 200 mg tablet RxNorm: 9635853 1 Tablet(s) PO Q8 02/21/2015 02/20/2015 Inactive Cipro 500 mg tablet RxNorm: 742477 1 Tablet(s) PO BID 201402/20/2015 Inactive phenazopyridine 200 mg tablet RxNorm: 6029215 1 Tablet(s) PO Q8 02/21/2015 02/25/2015 Inactive Cipro 500 mg tablet RxNorm: 587965 1 Tablet(s) PO BID 201402/27/2015 Inactive lisinopril 10 mg tablet RxNorm: 437379 1 Tablet(s) PO BID 02/1406/12/2015 Inactive metoprolol succinate ER 50 mg tablet,extended release 24 hr RxNorm: 160013 3/4 Tablet(s) PO daily 02/11/2015 09/04/2015 Inactive Voltaren 1 % topical gel RxNorm: 099475 2 Gram(s) TOP QID use this on affected joints up to four times daily. 02/11/2015 03/12/2015 Inactive Probiotic oral RxNorm : 6205 oral No Start Date Active aspirin 81 mg tablet RxNorm: 644430 1 Tablet(s) PO daily No Start Date Active Super B-Complex tablet RxNorm: 1 Tablet(s) PO No Start Date Active Flonase Allergy Relief 50 mcg/actuation nasal spray, suspension RxNorm: 7767695 1 [place] NASAL BID No Start Date Active Super-D3+ oral RxNorm : oral No Start Date Active Prilosec OTC 20 mg tablet,delayed release RxNorm: 206254 2 Tablet(s) PO QAM No Start Date Active Flonase Allergy Relief 50 mcg/actuation nasal spray, suspension RxNorm: 7056890 1 [place] NASAL as needed No Start Date Active Move Free Ultra 40 mg-10 mg-3.3 mg tablet RxNorm: 1 Tablet(s) PO daily No Start Date Active metoprolol tartrate 50 mg tablet RxNorm: 793809 1 Tablet(s) PO daily No Start Date 02/10/2015 Inactive lisinopril 10 mg tablet RxNorm: 683687 1 Tablet(s) PO BID No Start Date 02/13/2015 Inactive pravastatin 80 mg tablet RxNorm: 459101 1 Tablet(s) PO daily No Start Date 08/29/2015 Inactive Synthroid 100 mcg tablet RxNorm: 396120 1 Tablet(s) PO daily No Start Date 06/09/2015 Inactive lisinopril 40 mg tablet RxNorm: 856261 1 Tablet(s) PO BID No Start Date 02/28/2018 Inactive Tylenol Arthritis 650 mg tablet,extended release RxNorm: 6856163 4 Tablet(s) PO daily No Start Date 09/09/2015 Inactive Medication Administered Medication Codes Instructions Start Date Status Kenalog 40 mg/mL suspension for injection RxNorm: 8876890 Milliliter 12/24/2017 No longer Active Kenalog 40 mg/mL suspension for injection RxNorm: 2651103 1Milliliter 03/25/2017 No longer Active Kenalog 40 mg/mL suspension for injection RxNorm: 1911923 Milliliter 12/08/2016 No longer Active ceftriaxone 1 gram solution for injection RxNorm: 1117796 03/01/2015 No longer Active ceftriaxone 1 gram solution for injection RxNorm: 0629450 02/28/2015 No longer Active ceftriaxone 1 gram solution for injection RxNorm: 9666510 02/27/2015 No longer Active ceftriaxone 1 gram solution for injection RxNorm: 7926860 02/26/2015 No longer Active ceftriaxone 1 gram solution for injection RxNorm: 9247082 02/25/2015 No longer Active Immunizations Vaccine Codes [...] growth sent to ref lab 11/19/2017 B12 Ien278 B12 712.00 pg/ml 09/28/2017 C-Reactive Protein Qnt Crqnt CRP 0.1 mg/dl 09/23/2017 Comp Metabolic Rrb355 NA 139 mEq/L 09/23/2017 Comp Metabolic Aiv672 K 4.8 mEq/L 09/23/2017 Comp Metabolic Mpn288 CL 104 mEq/L 09/23/2017 Comp Metabolic Uud406 CO2 28.0 mEq/L 09/23/2017 Comp Metabolic Vbm045 ANION GAP 12 09/23/2017 Comp Metabolic Pdr581 GLUCOSE 92 mg/dL 09/23/2017 Comp Metabolic Zhd505 Creat 0.7 mg/dL 09/23/2017 Comp Metabolic Smb972 eGFR 91 ml/min/1.73m2 09/23/2017 Comp Metabolic Scd656 BUN 11 mg/dL 09/23/2017 Comp Metabolic Nfn355 B/C Ratio 16.4 Ratio 09/23/2017 Comp Metabolic Mwb672 CALCIUM 9.0 mg/dL 09/23/2017 Comp Metabolic Atw248 ALK PHOS 76 U/L 09/23/2017 Comp Metabolic Ypt017 AST(SGOT) 24 U/L 09/23/2017 Comp Metabolic Npo599 ALT(SGPT) 21 U/L 09/23/2017 Comp Metabolic Euv529 BILI T 0.3 mg/dL 09/23/2017 Comp Metabolic Byn304 ALBUMIN 4.1 g/dL 09/23/2017 Comp Metabolic Qip580 TPRO 6.2 g/dL 09/23/2017 Comp Metabolic Tip163 GLOB 2.1 g/dL 09/23/2017 Comp Metabolic Wqk297 A/G Ratio 1.9 Ratio 09/23/2017 Comp Metabolic Ots062 Osmo 277 mOsmo 09/23/2017 Free T4 Voj756 FREE T4 0.99 ng/dL 09/22/2017 Tsh Ord6 TSH (3rd IS) 1.01 [...] 30.6 pg 09/22/2017 Cbc With Differential Ord2 Craig% 10.5 % 09/22/2017 Cbc With Differential Ord2 [...] 2.37 K/ul 09/22/2017 Cbc With Differential Ord2 Craig ABS# 0.9 K/ul 09/22/2017 Cbc With Differential Ord2 Eos ABS# 0.2 K/ul 09/22/2017 Cbc With Differential Ord2 Baso ABS# 0.0 K/ul 09/22/2017 Sed Rate Ord21 ESR 3 mm/hr 09/22/2017 Vitamin D 25 Oh Hlw5609 VITAMIN D, 25 HYDROXY 78.79 ng/mL %Hba1C Lqn923 % HbA1c 05973-1 6.0 % 12/10/2016 %Hba1C Pgo575 Gluc Ave 126 mg/dL 12/10/2016 Cbc With Differential Ord2 WBC 8.96 K/ul [...] 31.3 pg 12/09/2016 Cbc With Differential Ord2 Craig% 6.5 % 12/09/2016 Cbc With Differential Ord2 [...] 1.84 K/ul 12/09/2016 Cbc With Differential Ord2 Craig ABS# 0.6 K/ul 12/09/2016 Cbc With Differential Ord2 Eos ABS# 0.1 K/ul 12/09/2016 Cbc With Differential Ord2 Baso ABS# 0.1 K/ul 12/09/2016 Comp Metabolic Lwx937 NA 138 mEq/L 12/09/2016 Comp Metabolic Sqv318 K 5.2 mEq/L 12/09/2016 Comp Metabolic Yig182 CL 104 mEq/L 12/09/2016 Comp Metabolic Tyb504 CO2 29.0 mEq/L 12/09/2016 Comp Metabolic Dag219 ANION GAP 10 12/09/2016 Comp Metabolic Lok512 GLUCOSE 135 mg/dL 12/09/2016 Comp Metabolic Qgo592 Creat 0.8 mg/dL 12/09/2016 Comp Metabolic Xoa881 eGFR 79 ml/min/1.73m2 12/09/2016 Comp Metabolic Axz180 BUN 18 mg/dL 12/09/2016 Comp Metabolic Ujg415 B/C Ratio 23.7 Ratio 12/09/2016 Comp Metabolic Kpa737 CALCIUM 9.5 mg/dL 12/09/2016 Comp Metabolic Cau534 ALK PHOS 73 U/L 12/09/2016 Comp Metabolic Fjc277 AST(SGOT) 24 U/L 12/09/2016 Comp Metabolic Gfi130 ALT(SGPT) 20 U/L 12/09/2016 Comp Metabolic Vsf248 BILI T 0.3 mg/dL 12/09/2016 Comp Metabolic Cmp959 ALBUMIN 4.3 g/dL 12/09/2016 Comp Metabolic Uid916 TPRO 6.4 g/dL 12/09/2016 Comp Metabolic Vyb499 GLOB 2.1 g/dL 12/09/2016 Comp Metabolic Sbd619 A/G Ratio 2.0 Ratio 12/09/2016 Comp Metabolic Fjf028 Osmo 280 mOsmo 12/09/2016 Free T4 Bwe093 FREE T4 0.99 ng/dL 12/09/2016 Tsh Ord6 hTSH II 0.89 uIU/mL 12/09/2016 Free T4 Zld280 FREE T4 0.97 ng/dL 09/02/2016 Tsh Ord6 hTSH II 1.19 uIU/mL 09/02/2016 Tsh Ord6 hTSH II 1.44 uIU/mL 06/01/2016 Lipid Ord30 CHOL 144 mg/dL 06/01/2016 Lipid Ord30 HDL 40.0 mg/dl 06/01/2016 Lipid Ord30 TRIG 136 mg/dL 06/01/2016 Lipid Ord30 LDL 77 mg/dL 06/01/2016 Lipid Ord30 C/HDL 3.6 Ratio 06/01/2016 Comp Metabolic Rwy789 NA 137 mEq/L 06/01/2016 Comp Metabolic Wjt630 K 4.1 mEq/L 06/01/2016 Comp Metabolic Oqy873 CL 104 mEq/L 06/01/2016 Comp Metabolic Nfu730 CO2 25.0 mEq/L 06/01/2016 Comp Metabolic Elg803 ANION GAP 12 06/01/2016 Comp Metabolic Ddl860 GLUCOSE 108 mg/dL 06/01/2016 Comp Metabolic Exo386 Creat 0.8 mg/dL 06/01/2016 Comp Metabolic Fln155 eGFR 80 ml/min/1.73m2 06/01/2016 Comp Metabolic Lgo745 BUN 15 mg/dL 06/01/2016 Comp Metabolic Mtg536 B/C Ratio 20.0 Ratio 06/01/2016 Comp Metabolic Lsd320 CALCIUM 9.1 mg/dL 06/01/2016 Comp Metabolic Ycy683 ALK PHOS 89 U/L 06/01/2016 Comp Metabolic Cmj016 AST(SGOT) 25 U/L 06/01/2016 Comp Metabolic And014 ALT(SGPT) 20 U/L 06/01/2016 Comp Metabolic Ons474 BILI T 0.3 mg/dL 06/01/2016 Comp Metabolic Zel963 ALBUMIN 4.2 g/dL 06/01/2016 Comp Metabolic Mdi943 TPRO 6.2 g/dL 06/01/2016 Comp Metabolic Hwk939 GLOB 2.0 g/dL 06/01/2016 Comp Metabolic Dtx386 A/G Ratio 2.1 Ratio 06/01/2016 Comp Metabolic Dbt448 Osmo 275 mOsmo 06/01/2016 Free T4 Trc899 FREE T4 0.94 ng/dL 06/01/2016 Cbc With Differential Ord2 WBC 6.65 [...] 31.1 pg 06/01/2016 Cbc With Differential Ord2 Craig% 8.4 % 06/01/2016 Cbc With Differential Ord2 [...] 2.96 K/ul 06/01/2016 Cbc With Differential Ord2 Craig ABS# 0.6 K/ul 06/01/2016 Cbc With Differential [...] 31.3 pg 02/27/2016 Cbc With Differential Ord2 Craig% 10.0 % 02/27/2016 Cbc With Differential Ord2 [...] 2.28 K/ul 02/27/2016 Cbc With Differential Ord2 Craig ABS# 0.9 K/ul 02/27/2016 Cbc With Differential Ord2 Eos ABS# 0.3 K/ul 02/27/2016 Cbc With Differential Ord2 Baso ABS# 0.1 K/ul 02/27/2016 Tsh Ord6 hTSH II 0.18 uIU/mL 02/27/2016 Comp Metabolic Qlv325 NA 135 mEq/L 02/27/2016 Comp Metabolic Xgh106 K 5.2 mEq/L 02/27/2016 Comp Metabolic Hqn169 CL 102 mEq/L 02/27/2016 Comp Metabolic Mxu986 CO2 27.0 mEq/L 02/27/2016 Comp Metabolic Yvv215 ANION GAP 11 02/27/2016 Comp Metabolic Qxv094 GLUCOSE 93 mg/dL 02/27/2016 Comp Metabolic Mxf725 Creat 0.7 mg/dL 02/27/2016 Comp Metabolic Ftb075 eGFR 91 ml/min/1.73m2 02/27/2016 Comp Metabolic Ujf989 BUN 14 mg/dL 02/27/2016 Comp Metabolic Fbr174 B/C Ratio 20.9 Ratio 02/27/2016 Comp Metabolic Tsk761 CALCIUM 9.4 mg/dL 02/27/2016 Comp Metabolic Rgq039 ALK PHOS 100 U/L 02/27/2016 Comp Metabolic Imp194 AST(SGOT) 23 U/L 02/27/2016 Comp Metabolic Suq194 ALT(SGPT) 24 U/L 02/27/2016 Comp Metabolic Ypt820 BILI T 0.2 mg/dL 02/27/2016 Comp Metabolic Hgv244 ALBUMIN 4.3 g/dL 02/27/2016 Comp Metabolic Tom005 TPRO 6.3 g/dL 02/27/2016 Comp Metabolic Npp277 GLOB 2.1 g/dL 02/27/2016 Comp Metabolic Qiy518 A/G Ratio 2.1 Ratio 02/27/2016 Comp Metabolic Var438 Osmo 270 mOsmo 02/27/2016 Free T4 Bag308 FREE T4 1.17 ng/dL 02/27/2016 Tsh Ord6 hTSH II 0.59 uIU/mL 05/10/2015 Comp Metabolic Wns989 NA 137 mEq/L 05/10/2015 Comp Metabolic Ynl794 K 4.4 mEq/L 05/10/2015 Comp Metabolic Lau369 CL 102 mEq/L 05/10/2015 Comp Metabolic Iha994 CO2 28.0 mEq/L 05/10/2015 Comp Metabolic Fce810 ANION GAP 11 05/10/2015 Comp Metabolic Bmk651 GLUCOSE 108 mg/dL 05/10/2015 Comp Metabolic Moz421 Creat 0.7 mg/dL 05/10/2015 Comp Metabolic Twx971 eGFR 86 ml/min/1.73m2 05/10/2015 Comp Metabolic Uzv688 BUN 13 mg/dL 05/10/2015 Comp Metabolic Dix009 B/C Ratio 18.3 Ratio 05/10/2015 Comp Metabolic Xbp470 CALCIUM 9.4 mg/dL 05/10/2015 Comp Metabolic Zwf827 ALK PHOS 94 U/L 05/10/2015 Comp Metabolic Hse841 AST(SGOT) 22 U/L 05/10/2015 Comp Metabolic Ozz768 ALT(SGPT) 21 U/L 05/10/2015 Comp Metabolic Oao854 BILI T 0.3 mg/dL 05/10/2015 Comp Metabolic Ftw092 ALBUMIN 3.9 g/dL 05/10/2015 Comp Metabolic Vro964 TPRO 6.1 g/dL 05/10/2015 Comp Metabolic Gzk112 GLOB 2.2 g/dL 05/10/2015 Comp Metabolic Xyl799 A/G Ratio 1.7 Ratio 05/10/2015 Comp Metabolic Dcn493 Osmo 274 mOsmo 05/10/2015 Cbc With Differential Ord2 WBC 5.77 [...] 29.4 pg 05/10/2015 Cbc With Differential Ord2 Craig% 9.0 % 05/10/2015 Cbc With Differential Ord2 [...] 2.14 K/ul 05/10/2015 Cbc With Differential Ord2 Craig ABS# 0.5 K/ul 05/10/2015 Cbc With Differential [...] 05/10/2015 Lipid Ord30 C/HDL 3.8 Ratio 05/10/2015 Free T4 Ygd161 FREE T4 1.03 ng/dL 05/10/2015 Culture Urine [id number] URINE CULTURE SEE NOTES 02/25/2015 Culture Urine [id number] Continued Results 02/25/2015 Urine Culture Ucult Complete >100,000 col/ml aerobic growth sent to ref lab 02/22/2015 Free T4 Hso178 FREE T4 1.16 ng/dL 02/11/2015 Tsh Ord6 [...] -4: G0439 12/24/2017 THER/PROPH/DIAG INJ SC/IM CPT-4: 24620 12/24/2017 TRIAMCINOLONE ACET INJ NOS CPT-4: J3301 12/24/2017 THER/PROPH/DIAG INJ SC/IM CPT-4: 43808 11/18/2017 ROCEPHIN, PER 250 MG CPT-4: J0696 11/18/2017 PRESCRIP TRANSMIT VIA ERX SY CPT-4: G8553 04/01/2017 TRIAMCINOLONE ACET INJ NOS CPT-4: J3301 03/25/2017 PPPS, SUBSEQ VISIT CPT -4: G0439 12/23/2016 THER/PROPH/DIAG INJ SC/IM CPT-4: 21164 12/08/2016 TRIAMCINOLONE ACET INJ NOS CPT-4: J3301 12/08/2016 PRESCRIP TRANSMIT VIA ERX SY CPT-4: G8553 12/08/2016 PRESCRIP TRANSMIT VIA ERX SY CPT-4: G8553 11/30/2016 URINALYSIS NONAUTO W/O SCOPE CPT-4: 15386 07/08/2016 PRESCRIP TRANSMIT VIA ERX SY CPT-4: G8553 06/01/2016 PRESCRIP TRANSMIT VIA ERX SY CPT-4: G8553 02/27/2016 THER/PROPH/DIAG INJ SC/IM CPT-4: 64705 03/01/2015 ROCEPHIN, PER 250 MG CPT-4: J0696 03/01/2015 THER/PROPH/DIAG INJ SC/IM CPT-4: 26813 02/28/2015 ROCEPHIN, PER 250 MG CPT-4: J0696 02/28/2015 THER/PROPH/DIAG INJ SC/IM CPT-4: 11116 02/27/2015 ROCEPHIN, PER 250 MG CPT-4: J0696 02/27/2015 THER/PROPH/DIAG INJ SC/IM CPT-4: 42925 02/26/2015 ROCEPHIN, PER 250 MG CPT-4: J0696 02/26/2015 THER/PROPH/DIAG INJ SC/IM CPT-4: 78527 02/25/2015 ROCEPHIN, PER 250 MG CPT-4: J0696 02/25/2015 URINALYSIS NONAUTO W/O SCOPE CPT-4: 30787 02/21/2015 Vital Signs Date Vital 03/01/2018 Blood Pressure 1: 136/70 Code : 8480-6 BMI: 27.8 Code : 47622-9 Heart Rate 1 : 70 bpm Height: 5'3" SpO2: 96% Weight: 157 lbs 12/24/2017 Height: Weight: 11/18/2017 Blood Pressure 1: 164/74 Code : 8480-6 BMI: 27.6 Code : 74496-6 Heart Rate 1 : 70 bpm Height: 5'3" SpO2: 96% Weight: 156 lbs 11/03/2017 Blood Pressure 1: 118/72 Code : 8480-6 BMI: 27.6 Code : 01297-6 Heart Rate 1 : 82 bpm Height: 5'3" SpO2: 96% Weight: 156 lbs 09/22/2017 Blood Pressure 1: 136/68 Code : 8480-6 BMI: 27.6 Code : 48559-8 Heart Rate 1 : 70 bpm Height: 5'3" SpO2: 97% Weight: 156 lbs 04/01/2017 Blood Pressure 1: 144/82 Code : 8480-6 Heart Rate 1: 68 bpm Height: 5'3" SpO2: 97% Weight: 03/25/2017 Blood Pressure 1: 116/70 Code : 8480-6 BMI: 26.7 Code : 63370-6 Heart Rate 1 : 67 bpm Height: 5'3" SpO2: 98% Weight: 151 lbs 12/23/2016 BMI: 26.7 Code: 69010-2 Height: 5'3" Weight: 151 lbs 12/22/2016 Blood Pressure 1: 142/60 Code : 8480-6 BMI: 26.7 Code : 59038-4 Heart Rate 1 : 67 bpm Height: 5'3" SpO2: 98% Weight: 151 lbs 12/08/2016 Blood Pressure 1: 140/72 Code : 8480-6 Heart Rate 1: 72 bpm Height: 5'3" SpO2: 97% Weight: 11/30/2016 Blood Pressure 1: 128/80 Code : 8480-6 BMI: 26.7 Code : 95979-4 Heart Rate 1 : 63 bpm Height: 5'3" SpO2: 96% Weight: 151 lbs 09/28/2016 Blood Pressure 1: 130/80 Code : 8480-6 BMI: 27.1 Code : 24088-4 Heart Rate 1 : 80 bpm Height: 5'3" SpO2: 97% Weight: 153 lbs 07/06/2016 Blood Pressure 1: 162/72 Code : 8480-6 BMI: 27.6 Code : 64966-9 Heart Rate 1 : 72 bpm Height: 5'3" SpO2: 98% Weight: 156 lbs 06/01/2016 Blood Pressure 1: 122/66 Code : 8480-6 BMI: 27.5 Code : 31477-7 Heart Rate 1 : 73 bpm Height: 5'3" SpO2: 98% Weight: 155 lbs 8 oz 02/27/2016 Blood Pressure 1: 126/68 Code : 8480-6 BMI: 26.9 Code : 19182-1 Heart Rate 1 : 70 bpm Height: 5'3" SpO2: 98% Weight: 152 lbs 09/10/2015 Blood Pressure 1: 130/70 Code : 8480-6 BMI: 26.9 Code : 64717-1 Heart Rate 1 : 72 bpm Height: 5'3" SpO2: 97% Weight: 152 lbs 05/14/2015 Blood Pressure 1: 138/82 Code : 8480-6 BMI: 26.4 Code : 93506-4 Heart Rate 1 : 75 bpm Height: 5'3" SpO2: 98% Weight: 149 lbs 02/11/2015 Blood Pressure 1: 128/72 Code : 8480-6 BMI: 25.5 Code : 66695-7 Heart Rate 1 : 73 bpm Height: [...] data Encounters Encounter Performer Location Codes Date ([id number]) [id number] EST. PATIENT, LEVEL IV Diagnosis: Otalgia, right ear[ICD10: H92.01] Diagnosis: Headache[ICD10: R51] Diagnosis: Other fatigue[ICD10: R53.83] Diagnosis: Abnormal findings on diagnostic imaging of other specified body structures[ICD10: R93.89] Elen Cortez MD, [facility] CPT-4: 58875 03/01/2018 [id number] EST. PATIENT, LEVEL III Diagnosis: Acute cystitis with hematuria[ICD10: N30.01] Bridget Cortez MD, [facility] CPT-4: 55165 11/18/2017 [id number] EST. PATIENT, LEVEL IV Diagnosis: Other acute sinusitis[ICD10: J01.80] Diagnosis: Otalgia, right ear[ICD10: H92.01] Bridget Cortez MD, [facility] CPT -4: 27259 11/03/2017 58533 EST. PATIENT, LEVEL III Diagnosis: Other fatigue[ICD10: R53.83] Diagnosis: Other malaise[ICD10: R53.81] Diagnosis: Pain in left knee[ICD10: M25.562] Diagnosis: Pain in right knee[ICD10: M25.561] Bridget Cortez MD, [facility] CPT-4: 37575 09/22/2017 ([id number]) 11747 EST. PATIENT, LEVEL III Diagnosis: Cough[ICD10: R05] Diagnosis: Acute bronchitis due to other specified organisms[ICD10: J20.8] Elen Cortez MD, [facility] CPT-4: 59367 04/01/2017 ([id number]) 88274 EST. PATIENT, LEVEL III Diagnosis: Otalgia, right ear[ICD10: H92.01] Diagnosis: Other allergic rhinitis[ICD10: J30.89] Shiela Cortez MD, [facility] CPT-4: 28067 03/25/2017 ([id number]) 55623 EST. PATIENT, LEVEL III Diagnosis: Benign paroxysmal vertigo, bilateral[ICD10: H81.13] Shiela Cortez MD, [facility] CPT-4: 24064 12/22/2016 ([id number]) 23655 EST. PATIENT, LEVEL IV Diagnosis: Benign paroxysmal vertigo, bilateral[ICD10: H81.13] Diagnosis: Other allergic rhinitis[ICD10: J30.89] Diagnosis: Hypothyroidism, unspecified[ICD10: E03.9] Shiela Cortez MD, [facility] CPT-4: 56859 12/08/2016 ([id number]) 45150 EST. PATIENT, LEVEL IV Diagnosis: Atrophy of thyroid (acquired)[ICD10: E03.4] Diagnosis: Essential (primary) hypertension[ICD10: I10] Diagnosis: Mixed hyperlipidemia[ICD10: E78.2] Elen Cortez MD, [facility] CPT-4: 68770 11/30/2016 30923 EST. PATIENT, LEVEL IV Diagnosis: Headache[ICD10: R51] Diagnosis: Other fatigue[ICD10: R53.83] Diagnosis: Dizziness and giddiness[ICD10: R42] Bridget Cortez MD, [facility] CPT-4: 79541 09/28/2016 17804 EST. PATIENT, LEVEL IV Diagnosis: Essential (primary) hypertension[ICD10: I10] Diagnosis: Headache[ICD10: R51] Bridget Cortez MD, [facility] CPT-4: 22771 07/06/2016 ([id number]) 71554 EST. PATIENT, LEVEL IV Diagnosis: Essential (primary) hypertension[ICD10: I10] Diagnosis: Atrophy of thyroid (acquired)[ICD10: E03.4] Diagnosis: Mixed hyperlipidemia[ICD10: E78.2] Elen Cortez MD, [facility] CPT-4: 50370 06/01/2016 95706 EST. PATIENT, LEVEL IV Diagnosis: Acute laryngopharyngitis[ICD10: J06.0] Diagnosis: Other allergic rhinitis[ICD10: J30.89] Diagnosis: Other specified hypothyroidism[ICD10: E03.8] Diagnosis: Other fatigue[ICD10: R53.83] Bridget Cortez MD, [facility] CPT-4 : 00736 02/27/2016 ([id number]) 14636 EST. PATIENT, LEVEL III Diagnosis: Essential (primary) hypertension[ICD10: I10] Diagnosis: Mixed hyperlipidemia[ICD10: E78.2] Elen Cortez MD, [facility] CPT-4: 26048 09/10/2015 ([id number]) 08055 EST. PATIENT, LEVEL IV Diagnosis: Essential (primary) hypertension[ICD10: I10] Diagnosis: Hypothyroidism, unspecified[ICD10: E03.9] Diagnosis: Unspecified osteoarthritis, unspecified site[ICD10: M19.90] [facility] CPT-4: 72555 05/14/2015 ([id number]) OFFICE VISIT, NEW - LEVEL 4 Diagnosis: Essential (primary) hypertension[ICD10: I10] Diagnosis: Hypothyroidism, unspecified[ICD10: E03.9] Diagnosis: Unspecified osteoarthritis, unspecified site[ICD10: M19.90] Elen Cortez MD , [facility] CPT-4: 88074 02/11/2015 Plan of Care Planned Activity Notes [...] if the hearing does not improve. 03/01/2018 Patient Education: Patient Medication Summary Completed [...] allergy spray. 12/24/2017 Appointment: Bridget Velazco WPtel: [phone] - Annual Wellness Visit 12/24/2017 Patient Education: Patient Medication Summary Completed 12/24/2017 Appointment: Bridget Velazco WPtel: [facility]3 [address] (15 min) Moderate 11/30/2017 Appointment: Lab [...] not improve. 11/18/2017 Appointment: Bridget Velazco WPtel: [facility] (15 min) Moderate 11/18/2017 Patient Education: Patient Medication Summary Completed 11/18/2017 Visit Plan: Sinusitis - Pt has acute infection - pain in face, maxillary region, Pt informed to use decongestant, RX given to patient, sinus rinses also recommended. Call if symptoms do not show improvement. 11/03/2017 Appointment: Bridget Velazco WPtel: [id number] (15 min) Moderate 11/03/2017 Patient [...] improve. 09/22/2017 Appointment: Bridget Velazco WPtel: [facility]4 [facility] (15 min) Moderate 09/22/2017 Patient Education: Patient Medication Summary Completed 09/22/2017 Visit Plan: Bronchitis - acute case of bronchitis identified. Pt has been given antibiotics, breathing treatments as appropriate, and pt has been instructed to call if symptoms are not improved, or if symptoms acutely worsen. 04/01/2017 Appointment: Elen Cortez WPtel: [facility]2 [facility]66[facility] (15 min) Moderate 04/01/2017 Patient [...] allergy spray. 03/25/2017 Appointment: Shiela Srivastava WPtel: [facility]1 [phone] [place] (10 min) Simple 03/25/2017 Appointment: Elen Cortez WPtel: [facility]6 [facility] (15 min) Moderate 03/25/2017 Patient Education: [...] surrogate. 12/23/2016 Appointment: Bridget Velazco WPtel: [phone] [facility] [facility] - Annual Wellness Visit 12/23/2016 Patient Education: Patient Medication Summary Completed 12/23/2016 Visit Plan: Vertigo-discussed PT for vestibular exercises- patient wants to wait since symptoms are improving-continue anti histamine as directed-meclizine as needed 12/22/2016 Appointment: Shiela Srivastava WPtel: [phone] (30 min) Complex 12/22/2016 Patient Education: Patient [...] control. 12/08/2016 Appointment: Shiela Srivastava WPtel: [phone] [phone] (30 min) Complex 12/08/2016 Patient Education: [...] medications. 11/30/2016 App[facility]ment: [phone] (15 min) Moderate 11/30/2016 Patient Education: [...] concerns. 09/28/2016 App[facility]ment[phone] ([facility] min) Complex 09/28/2016 Patient [...] concerns. 07/06/2016 Appointment: Bridget Velazco WPtel: [phone] [facility] (15 min) Moderate 07/06/2016 Patient Education: [...] improving 06/01/2016 Appointment: Elen Cortez WPtel: [phone] [facility] (15 min) Moderate 06/01/2016 Patient Education: Patient [...] labs 02/27/2016 Appointment: [phone] ([facility] min) Complex 02/27/2016 Patient Education: Patient Medication Summary Completed 02/27/2016 Patient Education: Patient Medication Summary Completed 09/27/2015 Care Plan: SCREENINGMAMMOGRAPHYDIGITAL LOINC : 16029-0 Pending 09/27/2015 Visit Plan: Hypertension - well [...] colonoscopy 09/10/2015 Appointment: [facility]ez [facility]el[phone] [place] (15 min) Moderate 09/10/2015 Patient [...] Dr. Sanchez. 05/14/2015 Appointment: Elen Cortez WPtel: [facility]5 [facility] (15 min) Moderate 05/14/2015 Patient Education: Patient Medication Summary Completed 05/14/2015 Patient Education: Hypertension Completed 05/14/2015 Care Plan: Referral Order SNOMED-CT : [id number] Ordered 05/14/2015 Patient Education: Patient Medication Summary Completed 03/01/2015 Appointment: Nurse Visit 02/28/2015 Patient Education: Patient Medication Summary Completed 02/28/2015 Patient Education: Patient Medication Summary Completed 02/27/2015 Appointment: Nurse Visit 02/26/2015 Patient Education: Patient Medication Summary Completed 02/26/2015 Appointment: Injection 02/25/2015 Patient Education: Patient Medication Summary Completed 02/25/2015 Patient Education: Patient Medication Summary Completed 02/21/2015 Care Plan: URINALYSIS NONAUTO W/O SCOPE LOINC : 55218-8 Ordered 02/21/2015 Visit Plan: Hypertension - well [...] pain symptoms. 02/11/2015 Appointment: Elen Cortez WPtel: [facility] [facility] 02/11/2015 Patient Education: Patient [...]
--- OUTSIDE RECORDS SUMMARY | 2018-06-01 13:26 | XMS REPORT | Continuity of Care Document ---
Author Author [facility] Organization [facility] Address Unknown Phone Unavailable Allergies Active Description Code Type Severity Reaction Onset Reported/Identified Relationship to Patient Clinical Status Yes Sulfa (Sulfonamide Antibiotics) [id number] Drug Allergy Unknown N/A 2014 Yes latex [id number] Drug Allergy Mild RASH 06/01/2018 Medications There is no data. Problems Date Dx Coded Attending Type Code Diagnosis Diagnosed By 03/18/1311 MACIEL BYRNES MD Ot M17.0 BILATERAL PRIMARY OSTEOARTHRITIS OF KNEE 12/04/2014 FANI HOLT MD Ot 401.9 HYPERTENSION NOS 12/04/2014 FANI HOLT MD Ot 785.1 PALPITATIONS 12/04/2014 FANI HOLT MD Ot 787.91 DIARRHEA 12/04/2014 FANI HOLT MD Ot V58.69 OTH MED,LT,CURRENT USE 09/25/2015 MACIEL BYRNES MD Ot [...] ENCOUNTER FOR SCREENING FOR MALIGNANT NE 11/07/2015 AIDE PATEL, JERILYN Leon Ot Z80.0 FAMILY HISTORY OF MALIGNANT NEOPLASM OF 09/30/2016 NAKUL GONZALEZ FEED WEIGHER Ot G45.9 TRANSIENT CEREBRAL ISCHEMIC ATTACK, [facility] 09/30/2016 NAKUL GONZALEZ FEED WEIGHER Ot G45.9 TRANSIENT CEREBRAL ISCHEMIC ATTACK, [facility] 09/30/2016 NAKUL GONZALEZ FEED WEIGHER Ot G45.9 TRANSIENT CEREBRAL ISCHEMIC ATTACK, [facility] 09/30/2016 NAKUL GONZALEZ FEED WEIGHER Ot G45.9 TRANSIENT CEREBRAL ISCHEMIC ATTACK, [facility] 10/05/2016 NAKUL GONZALEZ FEED WEIGHER Ot G45.9 TRANSIENT CEREBRAL ISCHEMIC ATTACK, [facility] 10/05/2016 NAKUL GONZALEZ FEED WEIGHER Ot G45.9 TRANSIENT CEREBRAL ISCHEMIC ATTACK, [facility] 10/05/2016 NAKUL GONZALEZ FEED WEIGHER Ot G45.9 TRANSIENT CEREBRAL ISCHEMIC ATTACK, [facility] 10/05/2016 NAKUL GONZALEZ FEED WEIGHER Ot G45.9 TRANSIENT CEREBRAL ISCHEMIC ATTACK, [facility] 10/28/2016 NAKUL GONZALEZ FEED WEIGHER Ot R42 DIZZINESS AND GIDDINESS 10/28/2016 NAKUL GONZALEZ FEED WEIGHER Ot R51 HEADACHE 10/28/2016 NAKUL GONZALEZ FEED WEIGHER Ot Z86.73 PRSNL HX OF TIA (TIA), AND CEREB INFRC W 10/07/2017 AAKASH PATEL, MARTA Zavala Ot Z29.8 ENCOUNTER FOR OTHER SPECIFIED PROPHYLACT 11/06/2017 MARTA FINN MD Ot Z29.8 ENCOUNTER FOR [...] Ot Z29.8 ENCOUNTER FOR OTHER SPECIFIED PROPHYLACT 02/26/2018 BERNABE ZAMORANO MD Ot E03.9 HYPOTHYROIDISM, UNSPECIFIED 02/26/2018 BERNABE ZAMORANO MD Ot H66.91 OTITIS MEDIA, UNSPECIFIED, RIGHT EAR 02/26/2018 BERNABE ZAMORANO MD Ot H93.A1 PULSATILE TINNITUS, RIGHT EAR 02/26/2018 BERNABE ZAMORANO MD Ot I10 ESSENTIAL (PRIMARY) HYPERTENSION 02/26/2018 BERNABE ZAMORANO MD Ot R51 HEADACHE 02/26/2018 BERNABE ZAMORANO MD Ot Z79.52 MCC (CURRENT) USE OF 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 02/26/2018 BERNABE ZAMORANO MD Ot Z79.82 MCC (CURRENT) USE OF ASPIRIN 02/26/2018 BERNABE ZAMORANO MD Ot Z85.828 PERSONAL HISTORY OF OTHER MALIGNANT NEOP 02/26/2018 BERNABE ZAMORANO MD Ot Z86.73 PRSNL HX OF TIA (TIA), AND CEREB INFRC W 02/26/2018 BERNABE ZAMORANO MD Ot Z88.2 ALLERGY STATUS TO SULFONAMIDES STATUS 02/26/2018 BERNABE ZAMORANO MD Ot Z96.651 PRESENCE OF RIGHT ARTIFICIAL KNEE JOINT 03/01/2018 BERNABE ZAMORANO MD Ot E03.9 HYPOTHYROIDISM, UNSPECIFIED 03/01/2018 BERNABE ZAMORANO MD Ot H66.91 OTITIS MEDIA, UNSPECIFIED, RIGHT EAR 03/01/2018 BERNABE ZAMORANO MD Ot H93.A1 PULSATILE TINNITUS, RIGHT EAR 03/01/2018 BERNABE ZAMORANO MD Ot I10 ESSENTIAL (PRIMARY) HYPERTENSION 03/01/2018 BERNABE ZAMORANO MD Ot R51 HEADACHE 03/01/2018 BERNABE ZAMORANO MD Ot Z79.52 MCC (CURRENT) USE OF 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 03/01/2018 BERNABE ZAMORANO MD Ot Z79.82 MCC (CURRENT) USE OF ASPIRIN 03/01/2018 BERNABE ZAMORANO MD Ot Z85.828 PERSONAL HISTORY OF OTHER MALIGNANT NEOP 03/01/2018 BERNABE ZAMORANO MD Ot Z86.73 PRSNL HX OF TIA (TIA), AND CEREB INFRC W 03/01/2018 BERNABE ZAMORANO MD Ot Z88.2 ALLERGY STATUS TO SULFONAMIDES STATUS 03/01/2018 BERNABE ZAMORANO MD Ot Z96.651 PRESENCE OF RIGHT ARTIFICIAL KNEE JOINT 03/22/2018 LISA, NAKUL M FEED WEIGHER Ot R42 DIZZINESS AND GIDDINESS 03/22/2018 NAKUL GONZALEZ FEED WEIGHER Ot R51 HEADACHE 03/22/2018 NAKUL GONZALEZ FEED WEIGHER Ot Z86.73 PRSNL HX OF TIA (TIA), AND CEREB INFRC W 03/23/2018 MARTA FINN MD Ot J84.10 PULMONARY FIBROSIS, UNSPECIFIED 03/23/2018 MARTA FINN MD Ot L98.9 DISORDER OF THE SKIN AND SUBCUTANEOUS TI 03/29/2018 VIRGEN DO LACY K Ot E03.9 HYPOTHYROIDISM, UNSPECIFIED 03/29/2018 VIRGEN DO, LACY K Ot I10 ESSENTIAL (PRIMARY) HYPERTENSION 03/29/2018 VIRGEN DO, LACY K Ot R03.0 ELEVATED BLOOD-PRESSURE READING, W/O SANDRA 03/29/2018 VIRGEN DO, LACY K Ot Z79.51 MCC (CURRENT) USE OF INHALED STERO 03/29/2018 VIRGEN DO, LACY K Ot 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 03/29/2018 VIRGEN DO LACY K Ot Z85.828 PERSONAL HISTORY OF OTHER MALIGNANT NEOP 03/29/2018 VIRGEN DO, LACY K Ot Z86.73 PRSNL HX OF TIA (TIA), AND CEREB INFRC W 03/29/2018 VIRGEN DO LACY K Ot Z88.2 ALLERGY STATUS TO SULFONAMIDES STATUS 03/29/2018 VIRGEN DO, LACY K Ot Z90.89 ACQUIRED ABSENCE OF OTHER ORGANS 03/29/2018 VIRGEN DO LACY K Ot Z96.651 PRESENCE OF RIGHT ARTIFICIAL KNEE JOINT 03/29/2018 VIRGEN DO LACY K Ot Z98.890 OTHER SPECIFIED POSTPROCEDURAL STATES 03/30/2018 VIRGEN DO, LACY K Ot E03.9 HYPOTHYROIDISM, UNSPECIFIED 03/30/2018 VIRGEN DO, LACY K Ot I10 ESSENTIAL (PRIMARY) HYPERTENSION 03/30/2018 VIRGEN DO, LACY K Ot R03.0 ELEVATED BLOOD-PRESSURE READING, W/O SANDRA 03/30/2018 VIRGEN DO, LACY K Ot Z79.51 MCC (CURRENT) USE OF INHALED STERO 03/30/2018 VIRGEN DO, LACY K Ot Z79.82 MCC (CURRENT) USE OF ASPIRIN 03/30/2018 VIRGEN DO, LACY K Ot Z85.828 PERSONAL HISTORY OF OTHER MALIGNANT NEOP 03/30/2018 RADHA NEW DOA K Ot Z86.73 PRSNL HX OF TIA (TIA), AND CEREB INFRC W 03/30/2018 VIRGEN LILLY LACY K Ot Z88.2 ALLERGY STATUS TO SULFONAMIDES STATUS 03/30/2018 VIRGEN LILLY LACY K Ot Z90.89 ACQUIRED ABSENCE OF OTHER ORGANS 03/30/2018 RADHA NEW DOA K Ot Z96.651 PRESENCE OF RIGHT ARTIFICIAL KNEE JOINT 03/30/2018 VIRGEN LILLY, LACY K Ot Z98.890 OTHER SPECIFIED POSTPROCEDURAL STATES 04/01/2018 NAKUL GONZALEZ FEED WEIGHER Ot E86.0 DEHYDRATION 04/01/2018 NAKUL GONZALEZ FEED WEIGHER Ot N39.0 URINARY TRACT INFECTION, SITE NOT SPECIF 04/01/2018 NAKUL GONZALEZ FEED WEIGHER Ot R53.81 OTHER MALAISE 04/01/2018 NAKUL GONZALEZ FEED WEIGHER Ot R53.83 OTHER FATIGUE 04/03/2018 VIRGEN LILLY LACY K Ot E03.9 HYPOTHYROIDISM, UNSPECIFIED 04/03/2018 VIRGEN LILLY LACY K Ot I10 ESSENTIAL (PRIMARY) HYPERTENSION 04/03/2018 RADHA NEW DOA K Ot R03.0 ELEVATED BLOOD-PRESSURE READING, W/O SANDRA 04/03/2018 VIRGEN LILLY LACY K Ot Z79.51 MCC (CURRENT) USE OF INHALED STERO 04/03/2018 VIRGEN LILLY LACY K Ot Z79.82 MCC (CURRENT) USE OF ASPIRIN 04/03/2018 VIRGEN LILLY LACY K Ot Z85.828 PERSONAL HISTORY OF OTHER MALIGNANT NEOP 04/03/2018 VIRGEN ILLLY LACY K Ot Z86.73 PRSNL HX OF TIA (TIA), AND CEREB INFRC W 04/03/2018 VIRGEN LILLY, LACY K Ot Z88.2 ALLERGY STATUS TO SULFONAMIDES STATUS 04/03/2018 VIRGEN LILLY, LACY K Ot Z90.89 ACQUIRED ABSENCE OF OTHER ORGANS 04/03/2018 VIRGEN DO, LACY K Ot Z96.651 PRESENCE OF RIGHT ARTIFICIAL KNEE JOINT 04/03/2018 VIRGEN DO, LACY K Ot Z98.890 OTHER SPECIFIED POSTPROCEDURAL STATES 04/05/2018 NAKUL GONZALEZ FEED WEIGHER Ot E86.0 DEHYDRATION 04/05/2018 NAKUL GONZALEZ FEED WEIGHER Ot N39.0 URINARY TRACT INFECTION, SITE NOT SPECIF 04/05/2018 NAKUL GONZALEZ FEED WEIGHER Ot R53.81 OTHER MALAISE 04/05/2018 NAKUL GONZALEZ FEED WEIGHER Ot R53.83 OTHER FATIGUE 04/16/2018 MARTA FINN MD Ot J84.10 PULMONARY FIBROSIS, UNSPECIFIED 04/16/2018 MARTA FINN MD Ot L98.9 DISORDER OF THE SKIN AND SUBCUTANEOUS TI 05/09/2018 NIDA MADDOX MD, Ot 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, ACQUIRED 05/23/2018 JORGE L IVERSON MD Ot E07.9 DISORDER OF THYROID, UNSPECIFIED 05/23/2018 JORGE L IVERSON MD Ot E78.2 MIXED HYPERLIPIDEMIA 05/23/2018 JORGE L IVERSON MD Ot G45.9 TRANSIENT CEREBRAL ISCHEMIC ATTACK, [facility] 05/23/2018 JORGE L IVERSON MD Ot I10 ESSENTIAL (PRIMARY) HYPERTENSION 05/23/2018 JORGE L IVERSON MD Ot I65.29 OCCLUSION AND STENOSIS OF UNSPECIFIED CA 05/23/2018 JORGE L IVERSON MD Ot E07.9 DISORDER OF THYROID, UNSPECIFIED 05/23/2018 JORGE L IVERSON MD Ot E78.2 MIXED HYPERLIPIDEMIA 05/23/2018 JORGE L IVERSON MD Ot G45.9 TRANSIENT CEREBRAL ISCHEMIC ATTACK, UNSP 05/23/2018 JORGE L IVERSON MD Ot I10 ESSENTIAL (PRIMARY) HYPERTENSION 05/23/2018 JORGE L IVERSON MD Ot I65.29 OCCLUSION AND STENOSIS OF UNSPECIFIED CA 05/30/2018 NIDA MADDOX MD, Ot 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, ACQUIRED Procedures There is no data. Results Test Result Range GEF2001 - 10/05/16 13:51 Serum or plasma urea nitrogen measurement (mass/volume) 16 mg/dL 7-18 Serum or plasma creatinine measurement (mass/volume) 0.85 mg/dL 0.60-1.30 Serum or plasma urea nitrogen/creatinine mass ratio 19 0 -20 Serum or plasma creatinine measurement with calculation of estimated glomerular filtration rate > NRG Complete blood count (CBC) with automated white blood cell (WBC) differential - 02/26/18 12:51 Blood leukocytes automated count (number/volume) 7.9 10*3/uL 4.3-11.0 Blood erythrocytes automated count (number/volume) 4.23 10*6/uL 4.35-5.85 Venous blood hemoglobin measurement (mass/volume) 13.1 g/dL 11.5-16.0 Blood hematocrit (volume fraction) 40 % 35-52 Automated erythrocyte mean corpuscular volume 94 [foz_us] 80-99 Automated erythrocyte mean corpuscular hemoglobin (mass per erythrocyte) 31 pg 25-34 Automated erythrocyte mean corpuscular hemoglobin concentration measurement ( mass/volume) 33 g/dL 32-36 Automated erythrocyte distribution width ratio 13.3 % 10.0-14.5 Automated blood platelet count (count/volume) 270 10*3/uL 130-400 Automated blood platelet mean volume measurement 9.4 [foz_us] 7.4-10.4 Automated blood neutrophils/100 leukocytes 65 % 42-75 Automated blood lymphocytes/100 leukocytes 26 % 12-44 Blood monocytes/100 leukocytes 7 % 0-12 Automated blood eosinophils/100 leukocytes 2 % 0-10 Automated blood basophils/100 leukocytes 1 % 0-10 Blood neutrophils automated count (number/volume) 5.2 10*3 1.8-7.8 Blood lymphocytes automated count (number/volume) 2.0 10*3 1.0-4.0 Blood monocytes automated count (number/volume) 0.6 10*3 0.0-1.0 Automated eosinophil count 0.2 10*3/uL 0.0-0.3 Automated blood basophil count (count/volume) 0.1 10*3/uL 0.0-0.1 PT panel in platelet poor plasma by coagulation assay - 02/26/18 12:51 Prothrombin time (PT) in platelet poor plasma by coagulation assay 12.6 s 12.2-14.7 INR in platelet poor plasma or blood by coagulation assay 0.9 0.8-1.4 Activated partial thromboplastin time (aPTT) in platelet poor plasma bycoagulation assay - 02/26/18 12:51 Activated partial thromboplastin time (aPTT) in platelet poor plasma bycoagulation assay 29 s 24-35 Comprehensive metabolic panel - 02/26/18 12:51 Serum or plasma sodium measurement (moles/volume) 138 mmol/L 135-145 Serum or plasma potassium measurement (moles/volume) 3.7 mmol/L 3.6-5.0 Serum or plasma chloride measurement (moles/volume) 106 mmol/L 98-107 Carbon dioxide 20 mmol/L 21-32 Serum or plasma anion gap determination (moles/volume) 12 mmol/L 5-14 Serum or plasma urea nitrogen measurement (mass/volume) 11 mg/dL 7-18 Serum or plasma creatinine measurement (mass/volume) 0.82 mg/dL 0.60-1.30 Serum or plasma urea nitrogen/creatinine mass ratio 13 NRG Serum or plasma creatinine measurement with calculation of estimated glomerular filtration rate > NRG Serum or plasma glucose measurement (mass/volume) 127 mg/dL 70-105 Serum or plasma calcium measurement (mass/volume) 9.6 mg/dL 8.5-10.1 Serum or plasma total bilirubin measurement (mass/volume) 0.3 mg/dL 0.1-1.0 Serum or plasma alkaline phosphatase measurement (enzymatic activity/volume) 74 U/L 40-136 Serum or plasma aspartate aminotransferase measurement (enzymatic activity/ volume) 28 U/L 5-34 Serum or plasma alanine aminotransferase measurement (enzymatic activity/volume ) 30 U/L 0-55 Serum or plasma protein measurement (mass/volume) 7.0 g/dL 6.4-8.2 Serum or plasma albumin measurement (mass/volume) 4.3 g/dL 3.2-4.5 CALCIUM CORRECTED 9.4 mg/dL 8.5-10.1 Erythrocyte sedimentation rate by westergren method - 02/26/18 12:51 Erythrocyte sedimentation rate by westergren method 9 mm 0-30 THYROID STIMULATING HORMONE - 02/26/18 12:51 THYROID STIMULATING HORMONE 0.43 u[iU]/mL 0.35-4.94 Serum or plasma C reactive protein measurement (mass/volume) - 02/26/18 12:51 Serum or plasma C reactive protein measurement (mass/volume) 0.04 mg /dL 0.00-0.50 Complete urinalysis with reflex to culture - 02/26/18 13:54 Urine color determination YELLOW NRG Urine clarity determination CLEAR NRG Urine pH measurement by test strip 7 5-9 Specific gravity of urine by test strip 1.010 1.016- 1.022 Urine protein assay by test strip, semi-quantitative NEGATIVE NEGATIVE Urine glucose detection by automated test strip NEGATIVE NEGATIVE Erythrocytes detection in urine sediment by light microscopy NEGATIVE NEGATIVE Urine ketones detection by automated test strip NEGATIVE NEGATIVE Urine nitrite detection by test strip NEGATIVE NEGATIVE Urine total bilirubin detection by test strip NEGATIVE NEGATIVE Urine urobilinogen measurement by automated test strip (mass/volume) NORMAL NORMAL Urine leukocyte esterase detection by dipstick NEGATIVE NEGATIVE Automated urine sediment erythrocyte count by microscopy (number/high power field) NONE NRG Automated urine sediment leukocyte count by microscopy (number/high power field ) NONE NRG Bacteria detection in urine sediment by light microscopy NEGATIVE NRG Squamous epithelial cells detection in urine sediment by light microscopy RARE NRG Crystals detection in urine sediment by light microscopy NONE NRG Casts detection in urine sediment by light microscopy NONE NRG Mucus detection in urine sediment by light microscopy NEGATIVE NRG Complete urinalysis with reflex to culture NO NRG Complete blood count (CBC) with automated white blood cell (WBC) differential - 03/29/18 01:05 Blood leukocytes automated count (number/volume) 10.8 10*3/uL 4.3-11.0 Blood erythrocytes automated count (number/volume) 4.03 10*6/uL 4.35-5.85 Venous blood hemoglobin measurement (mass/volume) 12.5 g/dL 11.5-16.0 Blood hematocrit (volume fraction) 38 % 35-52 Automated erythrocyte mean corpuscular volume 95 [foz_us] 80-99 Automated erythrocyte mean corpuscular hemoglobin (mass per erythrocyte) 31 pg 25-34 Automated erythrocyte mean corpuscular hemoglobin concentration measurement ( mass/volume) 33 g/dL 32-36 Automated erythrocyte distribution width ratio 13.0 % 10.0-14.5 Automated blood platelet count (count/volume) 265 10*3/uL 130-400 Automated blood platelet mean volume measurement 9.8 [foz_us] 7.4-10.4 Automated blood neutrophils/100 leukocytes 74 % 42-75 Automated blood lymphocytes/100 leukocytes 17 % 12-44 Blood monocytes/100 leukocytes 9 % 0-12 Automated blood eosinophils/100 leukocytes 0 % 0-10 Automated blood basophils/100 leukocytes 0 % 0-10 Blood neutrophils automated count (number/volume) 8.0 10*3 1.8-7.8 Blood lymphocytes automated count (number/volume) 1.8 10*3 1.0-4.0 Blood monocytes automated count (number/volume) 1.0 10*3 0.0-1.0 Automated eosinophil count 0.0 10*3/uL 0.0-0.3 Automated blood basophil count (count/volume) 0.0 10*3/uL 0.0-0.1 PT panel in platelet poor plasma by coagulation assay - 03/29/18 01:05 Prothrombin time (PT) in platelet poor plasma by coagulation assay 11.6 s 12.2-14.7 INR in platelet poor plasma or blood by coagulation assay 0.8 0.8-1.4 Activated partial thromboplastin time (aPTT) in platelet poor plasma bycoagulation assay - 03/29/18 01:05 Activated partial thromboplastin time (aPTT) in platelet poor plasma bycoagulation assay 25 s 24-35 Comprehensive metabolic panel - 03/29/18 01:05 Serum or plasma sodium measurement (moles/volume) 139 mmol/L 135-145 Serum or plasma potassium measurement (moles/volume) 4.1 mmol/L 3.6-5.0 Serum or plasma chloride measurement (moles/volume) 105 mmol/L 98-107 Carbon dioxide 21 mmol/L 21-32 Serum or plasma anion gap determination (moles/volume) 13 mmol/L 5-14 Serum or plasma urea nitrogen measurement (mass/volume) 18 mg/dL 7-18 Serum or plasma creatinine measurement (mass/volume) 0.76 mg/dL 0.60-1.30 Serum or plasma urea nitrogen/creatinine mass ratio 24 NRG Serum or plasma creatinine measurement with calculation of estimated glomerular filtration rate > NRG Serum or plasma glucose measurement (mass/volume) 121 mg/dL 70-105 Serum or plasma calcium measurement (mass/volume) 9.6 mg/dL 8.5-10.1 Serum or plasma total bilirubin measurement (mass/volume) 0.2 mg/dL 0.1-1.0 Serum or plasma alkaline phosphatase measurement (enzymatic activity/volume) 89 U/L 40-136 Serum or plasma aspartate aminotransferase measurement (enzymatic activity/ volume) 21 U/L 5-34 Serum or plasma alanine aminotransferase measurement (enzymatic activity/volume ) 29 U/L 0-55 Serum or plasma protein measurement (mass/volume) 6.6 g/dL 6.4-8.2 Serum or plasma albumin measurement (mass/volume) 4.2 g/dL 3.2-4.5 CALCIUM CORRECTED 9.4 mg/dL 8.5-10.1 Magnesium - 03/29/18 01:05 Magnesium 2.3 mg/dL 1.8-2.4 Serum or plasma troponin i.cardiac measurement (mass/volume) - 03/29/18 01:05 Serum or plasma troponin i.cardiac measurement (mass/volume) < ng/ mL <0.30 Complete urinalysis with reflex to culture - 04/01/18 12:40 Urine color determination ORANGE NRG Urine clarity determination CLEAR NRG Urine pH measurement by test strip 5 5-9 Specific gravity of urine by test strip 1.015 1.016- 1.022 Urine protein assay by test strip, semi-quantitative 2+ NEGATIVE Urine glucose detection by automated test strip NEGATIVE NEGATIVE Erythrocytes detection in urine sediment by light microscopy 1+ NEGATIVE Urine ketones detection by automated test strip NEGATIVE NEGATIVE Urine nitrite detection by test strip POSITIVE NEGATIVE Urine total bilirubin detection by test strip 3+ NEGATIVE Urine urobilinogen measurement by automated test strip (mass/volume) 8 mg/dL NORMAL Urine leukocyte esterase detection by dipstick NEGATIVE NEGATIVE Automated urine sediment erythrocyte count by microscopy (number/high power field) [HPF] NRG Automated urine sediment leukocyte count by microscopy (number/high power field ) [HPF] NRG Bacteria detection in urine sediment by light microscopy TRACE NRG Squamous epithelial cells detection in urine sediment by light microscopy RARE NRG Crystals detection in urine sediment by light microscopy NONE NRG Casts detection in urine sediment by light microscopy NONE NRG Mucus detection in urine sediment by light microscopy NEGATIVE NRG Complete urinalysis with reflex to culture YES NRG Bacterial urine culture - 04/01/18 12:40 Bacterial urine culture [id number] NR COLONY COUNT 50,000 CFU/ML NR FTX;REPORTABLE SUSCEPTIBILITY REPORTED 04-03-2018, [facility] Sensitivity Panel - 04/01/18 12:40 Gentamicin susceptibility test by minimum inhibitory concentration < = NRG Trimethoprim/sulfamethoxazole susceptibility test by minimum inhibitoryconcentration <= NRG Levofloxacin susceptibility test by minimum inhibitory concentration > NR Ampicillin susceptibility test by minimum inhibitory concentration > NR Cefazolin susceptibility test by minimum inhibitory concentration > NR Ceftriaxone susceptibility test by minimum inhibitory concentration <= NR Ciprofloxacin susceptibility test by minimum inhibitory concentration > NR Meropenem susceptibility test by minimum inhibitory concentration < = NRG Nitrofurantoin susceptibility test by minimum inhibitory concentration <= NRG Amoxicillin and clavulanate potassium susc MARIELOS = NRG Automated blood complete blood count (hemogram) panel - 04/01/18 12:57 Blood leukocytes automated count (number/volume) 8.5 10*3/uL 4.3-11.0 Blood erythrocytes automated count (number/volume) 4.03 10*6/uL 4.35-5.85 Venous blood hemoglobin measurement (mass/volume) 12.7 g/dL 11.5-16.0 Blood hematocrit (volume fraction) 39 % 35-52 Automated erythrocyte mean corpuscular volume 96 [foz_us] 80-99 Automated erythrocyte mean corpuscular hemoglobin (mass per erythrocyte) 32 pg 25-34 Automated erythrocyte mean corpuscular hemoglobin concentration measurement ( mass/volume) 33 g/dL 32-36 Automated erythrocyte distribution width ratio 13.2 % 10.0-14.5 Automated blood platelet count (count/volume) 274 10*3/uL 130-400 Automated blood platelet mean volume measurement 9.4 [foz_us] 7.4-10.4 Comprehensive metabolic panel - 04/01/18 12:57 Serum or plasma sodium measurement (moles/volume) 136 mmol/L 135-145 Serum or plasma potassium measurement (moles/volume) 4.6 mmol/L 3.6-5.0 Serum or plasma chloride measurement (moles/volume) 104 mmol/L 98-107 Carbon dioxide 23 mmol/L 21-32 Serum or plasma anion gap determination (moles/volume) 9 mmol/L 5-14 Serum or plasma urea nitrogen measurement (mass/volume) 12 mg/dL 7-18 Serum or plasma creatinine measurement (mass/volume) 0.81 mg/dL 0.60-1.30 Serum or plasma urea nitrogen/creatinine mass ratio 15 NRG Serum or plasma creatinine measurement with calculation of estimated glomerular filtration rate > NRG Serum or plasma glucose measurement (mass/volume) 114 mg/dL 70-105 Serum or plasma calcium measurement (mass/volume) 8.9 mg/dL 8.5-10.1 Serum or plasma total bilirubin measurement (mass/volume) 0.4 mg/dL 0.1-1.0 Serum or plasma alkaline phosphatase measurement (enzymatic activity/volume) 70 U/L 40-136 Serum or plasma aspartate aminotransferase measurement (enzymatic activity/ volume) 22 U/L 5-34 Serum or plasma alanine aminotransferase measurement (enzymatic activity/volume ) 25 U/L 0-55 Serum or plasma protein measurement (mass/volume) 6.4 g/dL 6.4-8.2 Serum or plasma albumin measurement (mass/volume) 4.0 g/dL 3.2-4.5 CALCIUM CORRECTED 8.9 mg/dL 8.5-10.1 Automated blood complete blood count (hemogram) panel - 06/01/18 11:07 Blood leukocytes automated count (number/volume) 7.2 10*3/uL 4.3-11.0 Blood erythrocytes automated count (number/volume) 4.22 10*6/uL 4.35-5.85 Venous blood hemoglobin measurement (mass/volume) 13.1 g/dL 11.5-16.0 Blood hematocrit (volume fraction) 39 % 35-52 Automated erythrocyte mean corpuscular volume 93 [foz_us] 80-99 Automated erythrocyte mean corpuscular hemoglobin (mass per erythrocyte) 31 pg 25-34 Automated erythrocyte mean corpuscular hemoglobin concentration measurement ( mass/volume) 33 g/dL 32-36 Automated erythrocyte distribution width ratio 13.0 % 10.0-14.5 Automated blood platelet count (count/volume) 263 10*3/uL 130-400 Automated blood platelet mean volume measurement 9.1 [foz_us] 7.4-10.4 PT panel in platelet poor plasma by coagulation assay - 06/01/18 11:07 Prothrombin time (PT) in platelet poor plasma by coagulation assay 12.2 s 12.2-14.7 INR in platelet poor plasma or blood by coagulation assay 0.9 0.8-1.4 Activated partial thromboplastin time (aPTT) in platelet poor plasma bycoagulation assay - 06/01/18 11:07 Activated partial thromboplastin time (aPTT) in platelet poor plasma bycoagulation assay 29 s 24-35 Comprehensive metabolic panel - 06/01/18 11:07 Serum or plasma sodium measurement (moles/volume) 137 mmol/L 135-145 Serum or plasma potassium measurement (moles/volume) 4.2 mmol/L 3.6-5.0 Serum or plasma chloride measurement (moles/volume) 101 mmol/L 98-107 Carbon dioxide 25 mmol/L 21-32 Serum or plasma anion gap determination (moles/volume) 11 mmol/L 5-14 Serum or plasma urea nitrogen measurement (mass/volume) 16 mg/dL 7-18 Serum or plasma creatinine measurement (mass/volume) 0.83 mg/dL 0.60-1.30 Serum or plasma urea nitrogen/creatinine mass ratio 19 NRG Serum or plasma creatinine measurement with calculation of estimated glomerular filtration rate > NRG Serum or plasma glucose measurement (mass/volume) 101 mg/dL 70-105 Serum or plasma calcium measurement (mass/volume) 9.8 mg/dL 8.5-10.1 Serum or plasma total bilirubin measurement (mass/volume) 0.3 mg/dL 0.1-1.0 Serum or plasma alkaline phosphatase measurement (enzymatic activity/volume) 84 U/L 40-136 Serum or plasma aspartate aminotransferase measurement (enzymatic activity/ volume) 27 U/L 5-34 Serum or plasma alanine aminotransferase measurement (enzymatic activity/volume ) 33 U/L 0-55 Serum or plasma protein measurement (mass/volume) 7.3 g/dL 6.4-8.2 Serum or plasma albumin measurement (mass/volume) 4.5 g/dL 3.2-4.5 CALCIUM CORRECTED 9.4 mg/dL 8.5-10.1 Lipid 1996 panel - 06/01/18 11:07 Serum or plasma triglyceride measurement (mass/volume) 82 mg/dL <150 Serum or plasma cholesterol measurement (mass/volume) 159 mg/dL < 200 Serum or plasma cholesterol in HDL measurement (mass/volume) 54 mg/ dL 40-60 Cholesterol in LDL [mass/volume] in serum or plasma by direct assay 89 mg/dL 1-129 Serum or plasma cholesterol in VLDL measurement (mass/volume) 16 mg/ dL 5-40 Encounters ACCT No. Visit Date/Time Discharge Status Pt. Type Provider Facility Loc./Unit Complaint [id number] 05/23/2018 07:39:00 05/23/2018 23:59:59 CLS Outpatient JORGE L IVERSON MD [facility] CARD HTN,CAROTID ARTERY STENOSIS [id number] 05/20/2018 10:26:00 05/20/2018 23:59:59 CLS Outpatient JORGE L IVERSON MD [facility] CARD HTN,CAROTID ARTERY STENOSIS [id number] 05/06/2018 11:17:00 05/06/2018 23:59:59 CLS Outpatient VARSAH PATEL, NIDA Mayorga [facility] RAD DYSPHAGIA [id number] 04/01/2018 12:16:00 04/01/2018 15:25:00 DIS Outpatient NAKUL GONZALEZ APRN [facility] SDC UTI,FATIGUE, DEHYDRATION,MALAISE [id number] 03/28/2018 23:20:00 03/29/2018 03:42:00 DIS Emergency VIRGEN DO, LACY K [facility] ER ELEVATED BP [id number] 03/22/2018 14:26:00 03/22/2018 23:59:59 CLS Outpatient AAKASH PATEL, MARTA Zavala [facility] RAD ABN FINDINGS ON DX IMAGING OF OTHER BODY STRUCTURE [id number] 02/26/2018 12:24:00 02/26/2018 17:08:00 DIS Emergency JAUN PATEL, BERNABE Angel [facility] ER HX OF TIA'S/PULSING IN HEAD/PAIN [id number] 02/19/2018 00:09:00 02/19/2018 23:59:59 CLS Preadmit MARTA FINN MD [facility] CR3 WELLNESS [id number] 02/08/2018 06:00:00 02/18/2018 00:01:00 DIS Outpatient MARTA FINN MD [facility] CR3 WELLNESS [id number] 01/05/2018 13:31:00 01/14/2018 00:01:00 DIS Outpatient MARTA FINN MD [facility] CR3 WELLNESS [id number] 11/23/2017 06:00:00 12/10/2017 00:01:00 DIS Outpatient MARTA FINN MD [facility] CR3 WELLNESS [id number] 11/03/2017 11:25:00 11/06/2017 00:01:00 DIS Outpatient MARTA FINN MD [facility] CR3 WELLNESS [id number] 10/04/2017 14:08:00 10/07/2017 00:01:00 DIS Outpatient MARTA FINN MD [facility] CR3 WELLNESS [id number] 10/05/2016 13:35:00 10/05/2016 23:59:59 CLS Outpatient NAKUL GONZALEZ APRN [facility] RAD HX OF TIA,DIZZINESS, LIGHTHEADEDNESS, HEADACHE [id number] 10/18/2015 07:11:00 10/18/2015 10:10:00 DIS Outpatient JERILYN NOBLE MD [facility] SDC SCREENING [id number] 10/16/2015 05:42:00 10/16/2015 11:54:00 DIS Outpatient JERILYN NOBLE MD [facility] PREOP SCREENING [id number] 09/20/2015 15:18:00 09/25/2015 13:12:00 DIS Outpatient SONIYA PATEL, MACIEL Umanzor [facility] REHAB B QUAD STRENGTHENING; KNEE DJD [id number] 12/04/2014 02:41:00 12/04/2014 04:20:00 DIS Emergency FANI HOLT MD [facility] ER ABD PAIN,HANDS TINGLING,DIARRHEA,SWEATING,HRT POUN [id number] 06/01/2018 10:28:00 ACT Outpatient ZAYRA PATEL, JORGE L Angel [facility] CATH ABN STRESS TEST, CP, HTN, HLP [id number] 12/04/2014 02:41:26 ACT Document Registration
--- NOTE | 2018-06-01 13:29 | Discharge Inst-Post CATH ---
Discharge Inst-CATH/EP Post Cardiac Cath/EP D/C Inst Follow Up/Plan Appointment with Dr. Steven's office in 4 weeks CARDIAC CATH DISCHARGE INSTRUCTIONS *Hold Metformin for 48 hours post heart cath. ACTIVITY * Go Home directly and rest. * Limit activity of the leg (or wrist if it was used) for 7 days including aerobics, swimming, jogging, bicycling, etc. * Restrict stair-climbing for 7 days if possible, if not, climb up with your non -cath leg, then bring together on the same step. * Avoid lifting, pushing, pulling or excessive movement of the affected extremity for 7 days. * Customary sexual activity may be resumed after 2 days-use caution not to use a position that strains or causes pain to the affected extremity. * No driving for 24 hours. * NO SMOKING. * Avoid straining for bowel movements for 7 days. * Gentle walking on level ground is allowed. * Returning to work will depend on the type of procedure and the results. Your doctor will discuss this with you. CALL YOUR DOCTOR FOR ANY OF THE FOLLOWING: *If bleeding from the puncture site occurs- Apply gentle pressure to site with clean cloth and call your doctor or EMS. * If a knot or lump forms under the skin, increases in size, or causes pain. * If bruising appears to be worsening or moving further down your leg instead of disappearing. * Temperature above 101 F. CARE OF YOUR GROIN INCISION; * Bruising or purple discoloration of the skin near the puncture site is common. * You may shower only, no bathtub bathing for 5 days. Be careful to avoid slipping as your leg may feel stiff. * If a closure device was used on your femoral artery, please see the attached guide regarding care of the device and your leg. * Leave the dressing on, until removed by office staff. CARE OF YOUR WRIST INCISION; * Bruising or purple discoloration of the skin near the puncture site is common. * You may shower. * DO NOT submerge wrist. * Leave dressing on, until removed by office staff.. JORGE L STEVEN MD Jun 01, 2018 13:29
[2018-06-01] MEDS ORDERED: PATIENT MAY USE OWN MEDS, ALL PO SCH (13:30)
--- NOTE | 2018-06-01 13:32 | Cardiac Cath Report ---
Cardiac Cath Report Physician (s)/Carding Machine Operator (s) Physician JORGE L IVERSON MD Pre-Procedure Diagnosis Pre-Procedure Diagnosis: coronary artery disease Post-Procedure Note Procedure Start Date: Jun 01, 2018 Procedure Start Time: 13:30 Name of Procedure: left heart catheterization Findings/Procedure Note PROCEDURE NOTE: 77 years old lady with history of chest pain, had an abnormal stress test, transient ischemic dilatation with mild ischemia, see was scheduled for cardiac catheterization possible PTCA. After explaining the procedure to the patient, all pros and cons were explained , all questions were answered. The patient signed the consent and then she was placed on the cardiac catheterization laboratory. Groin was prepped SL fashion local anesthesia was used. Sheath placed in the right femoral artery. Hema right and left catheter were used to access the coronary system. Pigtail was used to access the left ventricular cavity. Left ventriculogram was not done, pressure was measured At the end of the procedure the sheath was removed. Closure device was used FINDINGS: Hemodynamics LV 137/12, end-diastolic pressure of 12 Aorta 149/58 mean of 96 ANATOMY: Left Main is free of obstructive disease Left Anterior Descending has mild disease nonobstructive disease Left Circumflex has mild disease nonobstructive disease Right Coronory Artery has mild disease nonobstructive disease CONCLUSION: 1. Mild coronary artery disease no significant obstructive disease, mainly small coronary system 2. Normal left ventricular end-diastolic pressure DISCUSSION AND RECOMMENDATION: continue medical therapy Anesthesia Type: Conscious Sedation Estimated blood loss (mL): 10 ml Contrast Amount: 21 ml Total Radiation Dose: 161 mGy Post-Procedure Diagnosis Post-operative diagnosis: Chest pain Coronary artery disease Hypertension Hyperlipidemia JORGE L IVERSON MD Jun 01, 2018 13:32
[2018-06-01] MEDS ORDERED: ONDANSETRON 4 MG (ZOFRAN) ORAL DISSOLVE TAB PO ONE (13:45)
[2018-06-01] MEDS ORDERED: ACETAMINOPHEN 500 MG TAB (TYLENOL) ONE (17:05)
[2018-06-01] MEDS ORDERED: ACETAMINOPHEN 500 MG TAB (TYLENOL) PO ONE (19:30)
== END 2018-06-01 18:33 | disposition home or self-care (01) ==
LOC: CATH 10:28 → SDC 13:50 → CATH 18:33
PROVIDERS: ATTEND Internal Medicine Cardiovascular Disease
DX: R07.9 Chest pain, unspecified (principal); I25.10 Atherosclerotic heart disease of native coronary artery without angina pectoris; I10 Essential (primary) hypertension; E78.2 Mixed hyperlipidemia; I65.29 Occlusion and stenosis of unspecified carotid artery; R42 Dizziness and giddiness; K21.9 Gastro-esophageal reflux disease without esophagitis; Z86.73 Personal history of transient ischemic attack (TIA), and cerebral infarction without residual deficits; Z88.2 Allergy status to sulfonamides; Z79.82 Long term (current) use of aspirin; Z79.899 Other long term (current) drug therapy; E07.9 Disorder of thyroid, unspecified; Z85.828 Personal history of other malignant neoplasm of skin
CPT/HCPCS: 36415; 71045; 80053; 80061; 85027; 85610; 85730; 87081; 93458

== ENCOUNTER → 2018-07-08 | Outpatient (CLI) | payer MEDICARE, OTHER ==
[~2018-07-08] MED LIST changes: +DIAZ2TAB2 PO; +FLUT9.9S NS; +GLUC-203 PO; +L.AC1CAP6 PO; +LEVO5TAB12 PO; +LEVO88TA2 PO; +LISI-552 PO; +OMEP20TA33 PO; +VITA1CAP19 PO; +[UNRECOGNIZED DRUG - OTHER] PO; +[UNRECOGNIZED DRUG - OTHER] PO
--- NOTE | 2018-07-08 15:35 | Diagnostic Imaging Report ---
PROCEDURE: US Thyroid. TECHNIQUE: Multiple real-time grayscale images were obtained of the thyroid in various projections. INDICATION: Fatigue and goiter. FINDINGS: The right lobe of the thyroid measures 3.8 x 1.0 x 0.9 cm and the left lobe measures 3.8 x 1.4 x 0.8 cm. The isthmus is approximately 1 mm in thickness. Left lobe is unremarkable. Right lobe does contain a hypoechoic nodule inferiorly measuring approximately 1.2 x 0.8 x 0.8 cm. No microcalcifications are seen. No other abnormalities are detected. IMPRESSION: Small nodule in lower pole of right lobe of the thyroid without microcalcifications. Followup could be performed in six months to confirm stability. The study is otherwise unremarkable. Dictated by: Dictated on workstation # [id number]
== END ==
LOC: RAD 13:20
PROVIDERS: ATTEND Otolaryngology Otolaryngology/Facial Plastic Surgery
DX: E04.1 Nontoxic single thyroid nodule (principal)
CPT/HCPCS: 76536

== ENCOUNTER → 2018-10-28 | Outpatient (CLI) | payer MEDICARE, OTHER ==
[~2018-10-28] MED LIST changes: +AMOX-358 PO; +PROP15DR OU; +SODI30SP2 NS; +TOBR5DRO13 OU
== END ==
LOC: LAB 13:23
PROVIDERS: ATTEND Family Medicine
DX: R19.7 Diarrhea, unspecified (principal)
CPT/HCPCS: 82274; 87015; 87045; 87046; 87324; 87328; 87329; 87449; 87899

== ENCOUNTER 2018-11-10 17:16 | Emergency (ER) | payer MEDICARE, OTHER ==
[~2018-11-10] VITALS: Ht 160 cm; Wt 65.8 kg
[~2018-11-10 17:16] MED LIST changes: -AMOX-358 PO; -PROP15DR OU; -SODI30SP2 NS; -TOBR5DRO13 OU
--- OUTSIDE RECORDS SUMMARY | 2018-11-10 17:39 | XMS REPORT | Encounter Summary ---
Author Author [facility] Organization [facility] Address Unknown Phone Unavailable Care Team Providers Care Telephoto Engineer Name Role Phone Ange Frazier MD PCP Reason for Visit * Reason Comments Other Encounter Details Care Team Description Date Type Department Ange Frazier MD [address] [id number] Other 06/06/2015 Refill [facility] - [address] [address] Social History Date Tobacco Use Types Packs/Day Years Used Never Smoker Drinks/Week oz/Week Comments Alcohol Use 1 drink a week Yes Sex Assigned at Date Recorded Not on file Industry Job Start Date Occupation Not on file Not on file Not on file Travel End Travel History Travel Start No recent travel history available. documented as of this encounter Miscellaneous Notes * Telephone Encounter - Dorota Pardo - 06/10/2015 6:10 PM PATIENT EDUCATOR Pt transferred care to a PCP in [place], [place] where she now lives-will notify otilia torres ENT EDUCATOR * Telephone Encounter - Danelle Guillen NP - 06/06/2015 1:19 PM PATIENT EDUCATOR Patient needs to schedule with new provider ENT EDUCATOR documented in this encounter Plan of Treatment Not on filedocumented as of this encounter Visit Diagnoses Not on filedocumented in this encounter
--- OUTSIDE RECORDS SUMMARY | 2018-11-10 17:39 | XMS REPORT | Encounter Summary ---
Author Author [facility] Organization [facility] Address Unknown Phone Unavailable Care Team Providers Care Java Developer Analyst Name Role Phone Ange Frazier MD PCP Encounter Details Care Team Description Date Type Department Ange Frazier MD [address] [address] 07/16/2014 Hist-Appointmen [facility] Social History Date Tobacco Use Types Packs/Day Years Used Never Smoker Drinks/Week oz/Week Comments Alcohol Use 1 drink a week Yes Sex Assigned at Date Recorded Not on file Industry Job Start Date Occupation Not on file Not on file Not on file Travel End Travel History Travel Start No recent travel history available. documented as of this encounter Plan of Treatment Not on filedocumented as of this encounter Visit Diagnoses Not on filedocumented in this encounter
--- OUTSIDE RECORDS SUMMARY | 2018-11-10 17:39 | XMS REPORT | Encounter Summary ---
Author Author [facility] Organization [facility] Address Unknown Phone Unavailable Care Team Providers Care Planer Setter Name Role Phone Ange Frazier MD PCP Encounter Details Care Team Description Date Type Department Maynor Meng MD [address] [facility] [address] [place] [address] [phone] 08/27/2014 [facility] Visit Social History Date Tobacco Use Types Packs/Day [...]
--- OUTSIDE RECORDS SUMMARY | 2018-11-10 17:39 | XMS REPORT | Encounter Summary ---
Author Author [facility] Organization [facility] Address Unknown Phone Unavailable Care Team Providers Care Director Of Physical Therapy Name Role Phone Ange Frazier MD PCP Reason for Visit * Reason Comments Medication Refill Encounter Details Care Team Description Date Type Department Ange Frazier MD [address] [id number] Medication Refill 12/04/2014 Refill [facility] [address] [address] Social History Date Tobacco Use Types Packs/Day [...] encounter Miscellaneous Notes * Telephone Encounter - Angelika Diez MA - 12/04/2014 1:05 PM CDT Patient is requesting refills on meds documented in this encounter Plan of Treatment Not on filedocumented as of this encounter Visit Diagnoses Not on filedocumented in this encounter
--- OUTSIDE RECORDS SUMMARY | 2018-11-10 17:39 | XMS REPORT | Encounter Summary ---
Author Author [facility] Organization [facility] Address Unknown Phone Unavailable Care Team Providers Care Ibm Websphere Commerce Consultant Name Role Phone Ange Frazier MD PCP Encounter Details Care Team Description Date Type [place] [address] [facility] [address] [place] [address] [phone] 08/31/2014 [facility] Visit Social History Date Tobacco [...]
--- OUTSIDE RECORDS SUMMARY | 2018-11-10 17:39 | XMS REPORT | Encounter Summary ---
Author Author [facility] Organization [facility] Address Unknown Phone Unavailable Care Team Providers Care Human Resources Compliance Manager Name Role Phone Ange Frazier MD PCP Encounter Details Care Team Description Date Type Department Presley Brambila MD [address] [facility] [address] [place] [address] [phone] 11/01/2014 [facility] Visit Social History Date [...]
--- OUTSIDE RECORDS SUMMARY | 2018-11-10 17:39 | XMS REPORT | Encounter Summary ---
Author Author [facility] Organization [facility] Address Unknown Phone Unavailable Care Team Providers Care Wool Hat Flanger Name Role Phone Ange Frazier MD PCP Encounter Details Care Team Description Date Type Department Oseas Martins MD [address] [address] 10/16/2014 [facility] Visit Social History Date Tobacco Use Types Packs/Day Years Used Never Smoker Drinks/Week oz/Week Comments Alcohol Use 1 drink a week Yes Sex Assigned at Date Recorded Not on file Industry Job Start Date Occupation Not on file Not on file Not on file Travel End Travel History Travel Start No recent travel history available. documented as of this encounter Last Filed Vital Signs Reading Time Taken Comments Vital Sign 138/86 10/16/2014 2:55 PM CDT Blood Pressure 66 10/16/2014 2:55 PM CDT Pulse - - Temperature - - Respiratory Rate - - Oxygen Saturation - - Inhaled Oxygen Concentration 64.9 kg (143 lb) 10/16/2014 2:55 PM CDT overweight Weight 160 cm (5' 3") 10/16/2014 2:55 PM CDT Height 25.33 10/16/2014 2:55 PM CDT Body Mass Index documented in this encounter Progress Notes * Oseas Martins MD - 10/16/2014 2:30 PM CDT [facility] Office [address] [place] [id number] October 16, 2014 Ange Frazier MD [address] [address] RE: PAMELA VÁSQUEZ : 1940 Chart #: [id number] Visit provider: Oseas Martins M.D. Visit location: [facility] Dear Dr. Frazier: I had the pleasure of seeing PAMELA VÁSQUEZ in the office today. She is 73 years o f age and presents with the following chief complaints: congenital heart diseas e, hypertension. HPI: The patient is here for her annual checkup. She is now 73 and mentions that she is planning to move to [place] to be closer to her family. I saw her initia lly because of some chest discomfort and also hospitalization for a near syncopa l episode with hypotension. She is hypothyroid now on Synthroid therapy. Her l ipids were high and the dose of Pravachol was increased to 80 mg a day. With th at her LDL came down to 77 with an HDL of 42 and that is quite acceptable partic ularly given the fact that her Agatston score was 0 placing her at a lower risk category. Her blood pressure has been well controlled. She has no new complain ts today. The ECG is unremarkable. Problem List: 05/17/2012 Arrhythmia Holter Normal Holter monitor AVG HR 72, range 60-114. No V PB's and only an occasional SVPB without SVT, AF. No bradycardia, heart block or pauses 02/03/2012 Congenital heart mslimiy-ORD-Dvied 05/17/2012 COR SPECT Exertional chest pain leading to premature discontinuation of exercise. Achievement of only 5.4 minutes and 4.6 METs of activity without ST changes or arrhythmias. Regadenoson was therefore injected in order to augment myocardial blood flow.No ischemia and no regions of myocardial injury as per evi cardial perfusion images.Left ventricular ejection fraction normal at 79%. 09/25/2013 COR Calcium Score Agatston Score: 0, Risk Category: Low Risk Category 02/18/2012 Dyslipidemia 02/02/2012 Echo Normal LV systolic function, with an estimated EF of 60%. No si gnificant valvular abnormalities. Atrial septal aneurysm without definite evide nce for PFO following agitated saline injection. Recommend RAMIRO to further asses s possible PFO if clinically indicated. 02/02/2012 Echo Carotid duplex No flow-limiting carotid stenoses detected. 02/03/2012 Echo RAMIRO Normal left ventricular systolic function, with an estimated ejection fraction of 60%. Normal right ventricular systolic function. No sign ificant valvular abnormalities. No thrombus seen in the left atrial appendage. Very small PFO with only a few saline bubbles passing right to left. Moderate to severe atherosclerotic plaque in the descending aorta. 02/02/2012 EF Echo EF: 60 05/17/2012 EF SPECT Stress EF: 79 HTN Hypertension 02/01/2012 Near syncope 03/05/2011 PVD Carotid Duplex Mild atherosclerotic plaque with no evidence for a hemodynamically significant stenosis. Both vertebral arteries are patent with antegrade flow. TIA Past Medical History: Anemia Hypothyroidism GERD Osteoarthritis Leukocytosis TIA 2010 DJD-Right Knee 2014 Past Surgical History: Cataract Surgery Bunionectomy 2013 Total Knee Replacement Right (October) 2013 R Knee Manipulation Under Anesthesia (Dec) 2013 Final Medications: Flonase 50 Mcg/actuation inhale 1 spray by intr anasal route every day in each nostril Tylenol Arthritis 650 Mg take 2 tablet by oral route at night Metoprolol Succinate 50 Mg take 1 tablet (50MG) by oral route every day Prilosec Otc 20 Mg Take once daily Synthroid 100 Mcg take 1 tablet (100MCG) by oral route every day Pravastatin Sodium 80 Mg take 1 tablet (80MG) by oral route every day Lisinopril 10 Mg take 1 tablet (10MG) by oral route every day Low Dose Aspirin Ec 81 Mg take 1 tablet (81MG) by oral route every day Multivitamin 1 po daily Calcium 500 + Vit D 500 Mg Calcium (1250 Mg)-400 Unit 2 po daily Glucosamine Msm 1500 Mg-500 Mg/30 Ml 2 po daily Vitamin D3 Take as directed Allergies/Intolerances: Allergy Reaction Latex Rash Adhesive Rash Sulfa Rash Family History: Sister Diagnosed with HTN Mother Cause of was at age 86. Father Cause of was CAD at age 68. Social History: Marital Status: Children: 3 Occupation: Retired Advance Directives: There are no advance directives. Diet: Regular Exercise: Active Lifestyle Tobacco: None Alcohol: Currently drinks 1 drink of hard liquor socially Caffeine: Caffeine use: 1 cup of coffee ROS: 12-point review of systems is negative with the following exceptions: Cardiovascular: Swelling of ankles/legs /SAMPLE STEAMER: Postmenopausal Musculoskeletal/Dermatology: Myalgias, Arthralgias Hematology: Bleed or bruise easily Physical Exam: Vital Signs The patient is 5ft 3in tall, and weighs 143lbs. The BMI is 25.30. B lood pressure taken in the left arm is 138/86 mmHg in the sitting position. The pulse is 66. The rhythm is regular. Const The patient is an overweight female. HEENT The pupils are equal and round. The patient's sclerae are clear. There i s no corneal arcus. There are no xanthelasmas noted. HEENT bilateral hearing loss - severe Pulm Lungs are clear to auscultation. Cardiac Regular rate and rhythm. Normal S1 and S2. No murmur, rub, or gallop pre sent. Abd The patient has no abdominal tenderness to palpation. There is no hepatomegaly. The abdominal aorta is of normal size. No abdominal masses are present on palpation. Vasc Distal pulses 2+ throughout with no carotid bruits noted. EXT The extremities are warm to touch. No clubbing is present. No cyanosis is observed. There is no edema noted. Skin The skin is warm and dry. No psoriasis is noted. M/S The patient's gait is normal. No joint or spine deformities are noted. Neuro/Psych The patient is alert and oriented to time, person and place. No hem iparesis is present. No weakness is noted. There is no facial droop detected. Neuro/Psych The patient appears anxious. EKG: Result: Normal sinus rhythm, normal EKG. Most Recent Lipids Available for Review: Date Collected: 07/16/2014 Fasting: Fasting Total Cholesterol: 140 HDL: 42 LDL: 77 Triglycerides: 103 Ratio: 3.33 Glucose: 100 ALT 33 Impression and Plan: 1. Benign hypertension with excellent control on metoprolol and lisinopril. 2. Hypothyroidism, treated with Synthroid. 3. Mixed hyperlipidemia with good control. 4. Prior atypical chest pains but without recurrences. Ms. Vásquez is in a low risk group for coronary events in the near future. I hav e reassured her that she does not have an active cardiac problem. At this point her blood pressure has been well controlled. There is in fact some questions as to whether she needs to be on statin drugs at all but the fact is that she linda erates them and her lipids have improved. This may help prevent coronary diseas e as she continues to age. We will need to pay attention to some of the ongoing trials to help define wheth er patients with a 0 calcium score who are not on statin therapy are more apt to develop coronary disease than those who do take statins. For now I have made no changes. I do not believe she will need to see a inspector wire rope when she moves to [facility]. We would be happy to see her back any time, however, should she have further questions or problems. Testing ordered: Description Interval EKG Today Follow up: Oseas Martins M.D. PRN Thank you for allowing me to participate in PAMELA VÁSQUEZ's care. If I can be of any further assistance, please do not hesitate to contact me. Sincerely, Oseas Martins M.D. DLS/aps/lh/ct cc: Pamela Vásquez [id number] [address] F: 10/23/2014 documented in this encounter Plan of Treatment Not on filedocumented as of this encounter Visit Diagnoses Not on filedocumented in this encounter
--- OUTSIDE RECORDS SUMMARY | 2018-11-10 17:39 | XMS REPORT | Encounter Summary ---
Author Author [facility] Organization [facility] Address Unknown Phone Unavailable Care Team Providers Care Catalyst Operator Gasoline Name Role Phone Ange Frazier MD PCP Encounter Details Care Team Description Date Type Department Oseas Martins MD [facility] [address] [address] 10/31/2014 [facility] Visit Social History Date [...]
--- OUTSIDE RECORDS SUMMARY | 2018-11-10 17:39 | XMS REPORT | Encounter Summary ---
Author Author [facility] Organization [facility] Address Unknown Phone Unavailable Care Team Providers Care Geometry Tutor Name Role Phone Ange Frazier MD PCP Encounter Details Care Team Description Date Type Department Oseas Martins MD [facility] [address] [address] 10/12/2014 [facility] Visit Social History Date [...]
--- OUTSIDE RECORDS SUMMARY | 2018-11-10 17:39 | XMS REPORT | Clinical Summary ---
Author Author [facility] Organization [facility] Address Unknown Phone Unavailable Care Team Providers Care Loan Interviewer Mortgage Name Role Phone Ange Frazier MD PCP Allergies Comments Active Allergy Reactions Severity Noted Date "cant function" dizzy" "lightheaded" Meperidine 12/19/2013 "cant function" "dizzy" Hydromorphone (Bulk) 12/19/2013 Hallucinate Hydrocodone 12/19/2013 Latex, Natural Rubber Rash Low 10/27/2013 Hallucinate, headache Oxycodone 12/19/2013 Sulfa (Sulfonamide Hives, 09/15/2013 Antibiotics) Swelling Medications End Date Status Medication Sig Dispensed Refills Start Date Active pravastatin (PRAVACHOL) Take 80 mg by 0 80 MG tablet mouth daily. Active METOPROLOL SUCCINATE ORAL Take 50 mg by 0 mouth daily. Active LISINOPRIL ORAL Take 20 mg by 0 mouth daily. Active fluticasone (FLONASE) 50 1 spray into 0 mcg/actuation nasal spray each nostril. Active diazepam (VALIUM) 5 MG Take 5 mg by 0 tablet mouth every 6 (six) hours as needed for anxiety or muscle spasms. Active traMADol (ULTRAM) 50 mg Take 50 mg by 0 tablet mouth every 6 (six) hours as needed for pain. Two tabs every 6 hours for a total of 100mg Active acetaminophen (TYLENOL 8 Take 650 mg 0 HOUR) 650 MG CR tablet by mouth every 6 (six) hours. Active rivaroxaban (XARELTO) 10 Take 10 mg by 0 mg tablet mouth 2 (two) times a day. To take for 3 weeks and then take 20mg as prescribed Active fluticasone (FLONASE) 50 inhale 1 1 0 06/30/201 mcg/actuation nasal spray spray by 5 intranasal route every day in each nostril Active acetaminophen (TYLENOL take 2 tablet 1 0 ARTHRITIS PAIN) 650 MG CR by oral route 5 tablet at night Active cholecalciferol, vitamin Take as 1 0 D3, (VITAMIN D3) 5,000 directed 0 unit Tab Active omeprazole (PRILOSEC OTC) Take once 1 0 20 MG tablet daily 4 Active pravastatin (PRAVACHOL) take 1 tablet 30 0 80 MG tablet (80MG) by 4 oral route every day Active aspirin (ASPIRIN LOW take 1 tablet 1 0 DOSE) 81 MG EC tablet (81MG) by 2 oral route every day Active glucosamine HCl-msm 2 po daily 60 0 (GLUCOSAMINE MSM) 2 1,500-500 mg/30 mL Liqd Active calcium carbonate-vitamin 2 po daily 60 0 D3 (CALCIUM 500 WITH D) 2 500 mg(1,250mg) -400 unit Tab Active multivitamin (THERAGRAN) 1 po daily 30 0 per tablet 2 Active metoprolol succinate take 1 tablet 30 10 (TOPROL-XL) 50 MG 24 hr (50MG) by 5 tablet oral route every day Active levothyroxine (SYNTHROID, Take one 30 tablet 6 LEVOTHROID) 100 MCG tablet (100 5 tablet mcg total) by mouth daily. Active levothyroxine (SYNTHROID) 1 tab po 30 tablet 3 100 MCG tablet daily 5 Active lisinopril Take one 30 tablet 3 (PRINIVIL,ZESTRIL) 10 MG tablet (10 mg 5 tablet total) by mouth daily. Active Problems Problem Noted Date Chronic knee pain 12/19/2013 Right knee pain 11/07/2013 Syncope and collapse 11/29/2012 Family History Medical History Relation Name Comments Other Sister Diagnosed with HTN, Relation Name Status Comments Father Cause of was CAD at age 68. (Age 68) Mother Cause of was at age 86. (Age 86) Sister Social History Date Tobacco Use Types Packs/Day Years Used Never Smoker Drinks/Week oz/Week Comments Alcohol Use 1 drink a week Yes Sex Assigned at Date Recorded Not on file Industry Job Start Date Occupation Not on file Not on file Not on file Travel End Travel History Travel Start No recent travel history available. Last Filed Vital Signs Reading Time Taken Comments Vital Sign 138/86 10/16/2014 2:55 PM CDT Blood Pressure 66 10/16/2014 2:55 PM CDT Pulse 36.6 C (97.9 F) 12/22/2013 11:23 AM CDT Temperature 22 12/22/2013 1:29 PM CDT Respiratory Rate 97% 12/22/2013 1:29 PM CDT Oxygen Saturation - - Inhaled Oxygen Concentration 64.9 kg (143 lb) 10/16/2014 2:55 PM CDT overweight Weight 160 cm (5' 3") 10/16/2014 2:55 PM CDT Height 25.33 10/16/2014 2:55 PM CDT Body Mass Index Plan of Treatment Health Maintenance Due Date Last Done Comments Td # 1940 Zoster Vaccine# (1 of 2) 12/16/1991 Fall Risk Assessment # 2006 Osteoporosis Screening 2006 Influenza Vaccine (#1) 2019 Implants Device Identifier Shelf Expiration Date Model / Serial / Lot Implanted Type Area Manufactur er 05/20/2015 [id number] / / [id number] Implant Cement Bone [place] G-Hv Non-Tissue Right: Knee BIOMET W/Gentamicin Antibiotic 40gr [id number] Implant (Thicker Than [id number] Pmm# [id number]) - [id number] Implanted: Qty: 1 on 11/07/2013 at [facility] 05/20/2015 [id number] / / [id number] Implant Cement Bone [place] G-Hv Non-Tissue Right: Knee BIOMET W/Gentamicin Antibiotic 40gr [id number] Implant (Thicker Than [id number] Pmm# [id number]) - [id number] Implanted: Qty: 1 on 11/07/2013 by Cuate Mcdonnell DO at [facility] 06/18/2023 / / [id number] Aesculap Vargas As Fabricio Femur Non-Tissue Right: Knee Aesculap Miguelito. Size 62,5mm X 43,5 Mm Right F4 Implant R Implanted: Qty: 1 on 11/07/2013 by Cuate Mcdonnell DO at [facility] 06/18/2023 / / [id number] Vargas As Obturator Screw 0 12mm X Non-Tissue Right: Knee AESCULAP 7mm Implant ORTHO Implanted: Qty: 1 on 11/07/2013 by Cuate Mcdonnell DO at [facility] 06/17/2018 / / [id number] Vargas Fabricio Patella P2 0 30 Mm X Non-Tissue Right: Knee AESCULAP 8 Mm Implant ORTHO Implanted: Qty: 1 on 11/07/2013 by Cuate Mcdonnell DO at [facility] 04/19/2023 / / [id number] Vargas As Fabricio Cr/Ps Tibial Non-Tissue Right: Knee AESCULAP Plateau 75 Mm X 48mm T3 Implant ORTHO Implanted: Qty: 1 on 11/07/2013 by Cuate Mcdonnell DO at [facility] 07/18/2018 / / [id number] Vargas Gem Gliding Surface Non-Tissue Right: Knee AESCULAP T3/T3 + X 10 Mm Implant ORTHO Implanted: Qty: 1 on 11/07/2013 by Cuate Mcdonnell DO at [facility] Lens Implanted: (Quantity not on file) Explanted: (Quantity not on file) Results Not on filefrom Last 3 Months Advance Directives Date Inactivated Comments Code Status Date Activated 12/20/2013 1:01 PM Full Code 12/19/2013 5:32 PM 11/10/2013 2:05 PM Full Code 11/07/2013 2:12 PM 11/07/2013 2:12 PM Full Code 11/07/2013 8:40 AM
--- OUTSIDE RECORDS SUMMARY | 2018-11-10 17:39 | XMS REPORT | Encounter Summary ---
Author Author [facility] Organization [facility] Address Unknown Phone Unavailable Care Team Providers Care Fashion Coordinator Name Role Phone Ange Frazier MD PCP Encounter Details Care Team Description Date Type Department Oseas Martins MD [facility] [address] [address] 10/03/2014 [facility] Visit Social History [...]
--- OUTSIDE RECORDS SUMMARY | 2018-11-10 17:39 | XMS REPORT | Encounter Summary ---
Author Author [facility] Organization [facility] Address Unknown Phone Unavailable Care Team Providers Care Melter Assistant Name Role Phone Ange Frazier MD PCP Encounter Details Care Team Description Date Type Department Oseas Martins MD [address] [id number] 10/10/2014 [facility] Visit Social History Date Tobacco Use Types Packs/Day Years Used Never Smoker Drinks/Week oz/Week Comments Alcohol Use 1 drink a week Yes Sex Assigned at Date Recorded Not on file Industry Job Start Date Occupation Not on file Not on file Not on file Travel End Travel History Travel Start No recent travel history available. documented as of this encounter Progress Notes * Oseas Martins MD - 10/10/2014 12:24 PM CDT STAT - PATIENT HAS APPT 10/16 AT 1:30 Release of Information RE: PAMELA VÁSQUEZ : 1940 [facility] is requesting protected health informat ion from: Dr. Ange Frazier / MEDICAL RECORDS Purpose: Continuation of care Please release records to the following [facility] Office: [facility] Office [address] [place] [phone] Fax to : Attention : Chart Tilt Tray Driver / Gissell Please send the following: Most recent office visit letter, EKG, labs, including cholesterol, any cardiac t esting and/ or procedures, and most recent medication list. PATIENT HAS APPT 10/16 AT 1:[address] MARTINS. PLEASE FAX RECORDS TO [phone] 2. Thank you for your prompt attention to our request. This facsimile contains confidential information which may also be legally privi leged and which is intended only for the use of the individual or entity named a elliott. If the reader of a facsimile is not the intended recipient or the employe e or agent responsible for delivering it to the intended recipient, you are here by on notice that you are in possession of confidential and privileged informati on. Any dissemination, distribution or copying of this facsimile is strictly pr ohibited. If you have received this facsimile in error, please immediately noti fy the sender by telephone and return the original facsimile to the sender at th e above address via the U.[employer]. Postal Service. documented in this encounter Plan of Treatment Not on filedocumented as of this encounter Visit Diagnoses Not on filedocumented in this encounter
--- OUTSIDE RECORDS SUMMARY | 2018-11-10 17:39 | XMS REPORT | Encounter Summary ---
Author Author [facility] Organization [facility] Address Unknown Phone Unavailable Care Team Providers Care Radio Installer Name Role Phone Ange Frazier MD PCP Encounter Details Care Team Description Date Type Department Ange Frazier MD [address] [address] 09/18/2014 Hist[facility]Appointmen [facility] t Social [...]
--- OUTSIDE RECORDS SUMMARY | 2018-11-10 17:39 | XMS REPORT | Encounter Summary ---
Author Author [facility] Organization [facility] Address Unknown Phone Unavailable Care Team Providers Care Electric Meter Inspector Name Role Phone Ange Frazier MD PCP Reason for Visit * Reason Comments Medication Refill Encounter Details Care Team Description Date Type Department Ange Frazier MD [address] [id number] Medication Refill 01/23/2015 Refill [facility] [address] [address] Social History Date Tobacco Use Types Packs/Day [...] Telephone Encounter - Angelika Diez MA - 01/23/2015 2:00 PM CDT Moved out of town and dont see the new doctor until 02/11/15 can you refill my s ynthroid and lisinopril until i see her. documented in this encounter Plan of Treatment Not on filedocumented as of this encounter Visit Diagnoses Not on filedocumented in this encounter
--- OUTSIDE RECORDS SUMMARY | 2018-11-10 17:40 | XMS REPORT | Encounter Summary ---
Author Author [facility] Organization [facility] Address Unknown Phone Unavailable Care Team Providers Care Juvenile Probation Officer Name Role Phone Ange Frazier MD PCP Encounter Details Care Team Description Date Type Department Ange Frazier MD [address] [address] 03/05/2014 [facility]Appointmen [facility] t Social [...]
--- OUTSIDE RECORDS SUMMARY | 2018-11-10 17:40 | XMS REPORT | Encounter Summary ---
Author Author [facility] Organization [facility] Address Unknown Phone Unavailable Care Team Providers Care Quality Control Microbiologist Name Role Phone Ange Frazier MD PCP Encounter Details Care Team Description Date Type Department Ange Frazier MD [address] [address] 07/16/2014 [facility] Encounter [address] [place], [place] [id number] Social History Date Tobacco Use Types Packs/Day Years Used Never Smoker Drinks/Week oz/Week Comments Alcohol Use 1 drink a week Yes Sex Assigned at Date Recorded Not on file Industry Job Start Date Occupation Not on file Not on file Not on file Travel End Travel History Travel Start No recent travel history available. documented as of this encounter Medications at Time of Discharge Start Date End Date Medication Sig Dispensed Refills acetaminophen (TYLENOL 8 Take 650 mg 0 HOUR) 650 MG CR tablet by mouth every 6 (six) hours. 02/23/2012 aspirin (ASPIRIN LOW take 1 tablet 1 0 DOSE) 81 MG EC tablet (81MG) by oral route every day 02/23/2012 calcium carbonate-vitamin 2 po daily 60 0 D3 (CALCIUM 500 WITH D) 500 mg(1,250mg) -400 unit Tab cholecalciferol, vitamin Take as 1 0 D3, (VITAMIN D3) 5,000 directed unit Tab diazepam (VALIUM) 5 MG Take 5 mg by 0 tablet mouth every 6 (six) hours as needed for anxiety or muscle spasms. fluticasone (FLONASE) 50 1 spray into 0 mcg/actuation nasal spray each nostril. 02/23/2012 glucosamine HCl-msm 2 po daily 60 0 (GLUCOSAMINE MSM) 1,500-500 mg/30 mL Liqd LISINOPRIL ORAL Take 20 mg by 0 mouth daily. METOPROLOL SUCCINATE ORAL Take 50 mg by 0 mouth daily. 02/23/2012 multivitamin (THERAGRAN) 1 po daily 30 0 per tablet 08/15/2013 omeprazole (PRILOSEC OTC) Take once 1 0 20 MG tablet daily pravastatin (PRAVACHOL) Take 80 mg by 0 80 MG tablet mouth daily. 08/15/2013 pravastatin (PRAVACHOL) take 1 tablet 30 0 80 MG tablet (80MG) by oral route every day rivaroxaban (XARELTO) 10 Take 10 mg by 0 mg tablet mouth 2 (two) times a day. To take for 3 weeks and then take 20mg as prescribed traMADol (ULTRAM) 50 mg Take 50 mg by 0 tablet mouth every 6 (six) hours as needed for pain. Two tabs every 6 hours for a total of 100mg 02/23/2012 11/21/2014 clopidogrel (PLAVIX) 75 take 1 tablet 30 0 mg tablet (75MG) by oral route every day 02/23/2012 11/21/2014 esomeprazole (NEXIUM) 40 take 1 30 0 MG capsule capsule (40MG) by oral route every day 08/15/2013 01/23/2015 levothyroxine (SYNTHROID) take 1 tablet 60 0 100 MCG tablet (100MCG) by oral route every day 05/20/2012 11/21/2014 levothyroxine (SYNTHROID) take 1 tablet 60 0 112 MCG tablet (112MCG) by oral route every day 02/23/2012 11/21/2014 levothyroxine (SYNTHROID) take 1 tablet 30 0 125 MCG tablet (125MCG) by oral route every day 12/04/2014 levothyroxine (SYNTHROID, Take 100 mcg 0 LEVOTHROID) 100 MCG by mouth tablet daily. 03/21/2012 12/04/2014 lisinopril take 1 tablet 30 0 (PRINIVIL,ZESTRIL) 10 MG (10MG) by tablet oral route every day 02/23/2012 11/21/2014 lisinopril take 1 tablet 30 0 (PRINIVIL,ZESTRIL) 20 MG (20MG) by tablet oral route every day 02/23/2012 11/21/2014 loratadine-pseudoephedrin take 1 tablet 30 0 e (ALAVERT D-12 by oral route ALLERGY-SINUS) 5-120 mg every 12 Tb12 per ER tablet hours 02/23/2012 11/21/2014 metoprolol succinate take 1 Tablet 30 11 (TOPROL-XL) 25 MG 24 hr (25MG) by tablet oral route every day 09/13/2013 11/21/2014 metoprolol succinate take 1 tablet 30 9 (TOPROL-XL) 50 MG 24 hr (50MG) by tablet oral route every day 07/25/2013 11/21/2014 metoprolol succinate take 1 tablet 30 0 (TOPROL-XL) 50 MG 24 hr (50MG) by tablet oral route every day 06/22/2013 11/21/2014 metoprolol succinate take 1 tablet 30 0 (TOPROL-XL) 50 MG 24 hr (50MG) by tablet oral route every day 04/17/2013 11/21/2014 metoprolol succinate take 1 tablet 30 1 (TOPROL-XL) 50 MG 24 hr (50MG) by tablet oral route every day 03/07/2012 11/21/2014 metoprolol succinate take 1 tablet 30 11 (TOPROL-XL) 50 MG 24 hr (50MG) by tablet oral route every day 02/23/2012 11/21/2014 pravastatin (PRAVACHOL) take 1 tablet 30 0 40 MG tablet (40MG) by oral route every day documented as of this encounter Plan of Treatment Not on filedocumented as of this encounter Procedures Comments Procedure Name Priority Date/Time Associated Diagnosis LAB SUMMARY 07/17/2014 7:15 AM CDT GLUCOSE Routine 07/16/2014 9:44 AM CDT COMPREHENSIVE METABOLIC Routine 07/16/2014 9:44 AM CDT VITAMIN D, 25-HYDROXY Routine 07/16/2014 9:44 AM CDT THYROID STIMULATING Routine 07/16/2014 HORMONE 9:44 AM CDT T4 FREE Routine 07/16/2014 9:44 AM CDT LIPID PANEL Routine 07/16/2014 9:44 AM CDT CREATINE KINASE Routine 07/16/2014 9:44 AM CDT CBC AND DIFF (MANUAL DIFF Routine 07/16/2014 IF NECESSARY) 9:44 AM CDT documented in this encounter Results * LAB SUMMARY (07/17/2014 7:15 AM CDT) Narrative Performed At Ordered by an unspecified provider. * Thyroid Stimulating Hormone (07/16/2014 9:44 AM CDT) Thyroid 0.84 0.47 - 4.68 uIU/mL [facility]ormone LABORATORIES Specimen Performing Organization Address City/State/Zipcode Phone Number [facility] [address] [place] [address] LABORATORIES * Comprehensive Metabolic (07/16/2014 9:44 AM CDT) Sodium 144 133 - 147 MEQ/L [facility] Potassium 5.1 3.5 - 5.3 MEQ/L [facility] Chloride 106 96 - 112 MEQ/L [facility] Carbon Dioxide 29 20 - 32 MEQ/L [facility] Anion Gap 10 5 - 17 [facility] Calcium 10.3 8.4 - 10.5 mg/dL [facility] Protein Total 6.4 6.0 - 8.2 g/dL [facility] Serum [facility] Albumin 4.1 3.5 - 5.0 g/dL [facility] Alkaline 97 42 - 140 IU/L [facility] Phosphatase [facility] Alanine 33 13 - 69 IU/L [facility] Aminotransferas [facility] Aspartate 25 15 - 46 IU/L [facility] Aminotransferas [facility] Bilirubin Total 0.4 0.2 - 1.3 mg/dL [facility] Blood Urea 10 7 - 26 mg/dL [facility] Nitrogen [facility] Creatinine 0.6 0.4 - 1.1 mg/dL [facility] eGFR Female AA 118Comment: Chronic Kidney 60 - 200 [facility] Disease less than 60 REGIONAL mL/min/1.73 sq.m Kidney LABORATORIES failure less than 15 mL/min/1.73 sq.m eGFR Female 98Comment: Chronic Kidney 60 - 200 [facility] Non-AA Disease less than 60 REGIONAL mL/min/1.73 sq.m Kidney LABORATORIES failure less than 15 mL/min/1.73 sq.m Specimen Performing Organization Address City/[facility] Phone Number [address] [phone] LABORATORIES * Creatine Kinase (07/16/2014 9:44 AM CDT) Creatine Kinase 57Comment: White Female: IU/L [facility] 30 - 160 IU/L Black Female: [facility] 30 - 430 IU/L White Male: LABORATORIES 40 - 425 IU/L Black Male: 50 - 850 IU/L Specimen Performing Organization Address [facility] Phone Number [address] [phone] LABORATORIES * Lipid Panel (07/16/2014 9:44 AM CDT) Cholesterol 140 100 - 200 mg/dL [facility] LABORATORIES HDL Cholesterol 42 40 - 110 mg/dL [facility] Non-HDL 98 0 - 130 mg/dL [facility] REGIONAL LABORATORIES Triglycerides 103 0 - 150 mg/dL [facility] LDL Cholesterol 77 0 - 99 mg/dL [facility] Cholesterol/HDL 3.3 0.0 - 4.5 [facility] Ratio REGIONAL LABORATORIES HPP 12 [facility] LAB[facility]ATORIES Specimen Performing Organization Address [facility] Phone Number [address] [address] LABORATORIES * T4 Free (07/16/2014 9:44 AM CDT) T4 Free 1.4 0.8 - 2.2 ng/dL [facility] Specimen Performing Organization Address [facility] Phone Number [address] [address] LABORATORIES * Vitamin D, 25-Hydroxy (07/16/2014 9:44 AM CDT) Vitamin D 78Comment: Vitamin D ng/mL [facility] 25-Hydroxy 25-Hydroxy:Severe deficiency REGIONAL < 13 ng/mLMild LABORATORIES to moderate deficiency 13 - 24 ng/mLOptimum level 25 - 80 ng/mLToxicity possible >80 ng/mL Specimen Performing Organization Address City/[facility]/Zipcode Phone Number [address] [phone] LABORATORIES * Glucose (07/16/2014 9:44 AM CDT) Glucose 100 70 - 100 mg/dL [facility] Specimen Performing Organization Address [facility] Phone Number [address] [address] LABORATORIES * CBC and Diff (manual diff if necessary) (07/16/2014 9:44 AM CDT) WBC 6.49 4.00 - 11.00 TH/uL [facility] RBC 4.17 4.00 - 5.00 MIL/uL [facility] Hemoglobin 12.5 12.0 - 15.0 g/dL [facility] Hematocrit 39 36 - 45 % [facility] MCV 93 80 - 99 fL [facility] MCH 30 27 - 34 pg [facility] MCHC 32 32 - 36 % [facility] RDW 12.6 9.0 - 14.5 % [facility] Platelet Count 245 140 - 400 TH/uL [facility] MPV 11.2 9.4 - 12.3 fL [facility] Nucleated RBCs 0 0 - 0 /100 [facility] % Neutrophils 52 45 - 78 % [facility] %Lymphocytes 34 15 - 47 % [facility] %Monocytes 7 0 - 12 % [facility] %Eosinophils 5 0 - 7 % [facility] %Basophils 2 0 - 2 % [facility] % Imm Grans 0 0 - 1 % [facility] LABORATORIES # Granulocytes 3.41 1.70 - 6.80 TH/uL [facility] LAB[facility]IES # Lymphocytes 2.23 1.00 - 3.30 TH/uL [facility] LAB[facility]IES # Monocytes 0.45 0.20 - 0.90 TH/uL [facility] LAB[facility]IES # Eosinophils 0.30 0.00 - 0.40 TH/uL [facility] LAB[facility]IES # Basophils 0.10 0.00 - 0.10 TH/uL [facility] LABOR[facility]IES Specimen Performing Organization Address City/State/Zipcode Phone Number [facility] [address] [place] [address] LABORATORIES documented in this encounter Visit Diagnoses Not on filedocumented in this encounter
--- OUTSIDE RECORDS SUMMARY | 2018-11-10 17:40 | XMS REPORT | Encounter Summary ---
Author Author [facility] Organization [facility] Address Unknown Phone Unavailable Care Team Providers Care O And M Supervisor Name Role Phone Ange Frazier MD PCP Encounter Details Care Team Description Date Type Department 03/07/2014 Hist-Appointmen [facility] t Social History Date [...]
--- OUTSIDE RECORDS SUMMARY | 2018-11-10 17:40 | XMS REPORT | Encounter Summary ---
Author Author [facility] Organization [facility] Address Unknown Phone Unavailable Care Team Providers Care Quality Assurance Lab Technician Name Role Phone Ange Frazier MD PCP Encounter Details Care Team Description Date Type Department Ange Frazier MD [address] [address] 03/05/2014 [facility] Encounter [address] [place], [place] [id number] Social History Date Tobacco Use Types Packs/Day [...] Name Priority Date/Time Associated Diagnosis LAB SUMMARY 03/06/2014 7:15 AM UX DESIGN LEAD GLUCOSE Routine 03/05/2014 2:57 PM UX DESIGN LEAD COMPREHENSIVE METABOLIC Routine 03/05/2014 2:57 PM UX DESIGN LEAD URIC ACID Routine 03/05/2014 2:57 PM UX DESIGN LEAD documented in this encounter Results * LAB SUMMARY (03/06/2014 7:15 AM UX DESIGN LEAD) Narrative Performed At Ordered by an unspecified provider. * Glucose (03/05/2014 2:57 PM UX DESIGN LEAD) Glucose 92 70 - 100 mg/dL [facility] Specimen Blood Performing Organization Address City/State/Zipcode Phone Number [facility] [address] [place] [address] LABORATORIES * Uric Acid (03/05/2014 2:57 PM UX DESIGN LEAD) Uric Acid 5.3 2.5 - 7.0 mg/dL [facility] LABORATORIES Specimen Blood Performing Organization Address City/State/Zipcode Phone Number [facility] [address] [place] [address] LABORATORIES * Comprehensive Metabolic (03/05/2014 2:57 PM UX DESIGN LEAD) Sodium 141 133 - 147 MEQ/L [facility] Potassium 5.7 (H) 3.5 - 5.3 MEQ/L [facility] Chloride 100 96 - 112 MEQ/L [facility] Carbon Dioxide 28 20 - 32 MEQ/L [facility] Anion Gap 12 5 - 17 [facility] Calcium 10.1 8.4 - 10.5 mg/dL [facility] Protein Total 6.9 6.0 - 8.2 g/dL [facility] Serum [facility] Albumin 4.2 3.5 - 5.0 g/dL [facility] Alkaline 103 42 - 140 IU/L [facility] Phosphatase [facility] Alanine 29 13 - 69 IU/L [facility] Aminotransferas [facility] e [facility] Aspartate 28 15 - 46 IU/L [facility] Aminotransferas [facility] Bilirubin Total 0.3 0.2 - 1.3 mg/dL [facility] Blood Urea 14 7 - 26 mg/dL [facility] Nitrogen [facility] Creatinine 0.7 0.4 - 1.1 mg/dL [facility] eGFR Female AA 99Comment: Chronic Kidney 60 - 200 [facility] Disease less than 60 REGIONAL mL/min/1.73 sq.m [facility] failure less than 15 mL/min/1.73 sq.m eGFR Female 82Comment: Chronic Kidney 60 - 200 [facility] Non-AA Disease less than 60 REGIONAL mL/min/1.73 sq.m [facility] failure less than 15 mL/min/1.73 sq.m Specimen Blood Performing Organization Address City/State/Zipcode Phone Number [address] [address] LABORATORIES documented in this encounter Visit Diagnoses Not on filedocumented in this encounter
--- OUTSIDE RECORDS SUMMARY | 2018-11-10 17:40 | XMS REPORT | Encounter Summary ---
Author Author [facility] Organization [facility] Address Unknown Phone Unavailable Care Team Providers Care Operating Room Nurse Name Role Phone Ange Frazier MD PCP Encounter Details Care Team Description Date Type Department Ange Frazier MD [address] [address] 03/07/2014 [facility] Encounter [address] [place], [place] [id number] Social History Date Tobacco Use Types Packs/Day [...] Name Priority Date/Time Associated Diagnosis LAB SUMMARY 03/08/2014 6:55 AM WATER RESOURCES PROGRAM DIRECTOR POTASSIUM Routine 03/07/2014 3:28 PM WATER RESOURCES PROGRAM DIRECTOR documented in this encounter Results * LAB SUMMARY (03/08/2014 6:55 AM WATER RESOURCES PROGRAM DIRECTOR) Narrative Performed At Ordered by an unspecified provider. * Potassium (03/07/2014 3:28 PM WATER RESOURCES PROGRAM DIRECTOR) Potassium 4.4 3.5 - 5.3 MEQ/L [facility] LABORATORIES Specimen Blood Performing Organization Address City/State/Zipcode Phone Number [facility] [address] [place] [address] LABORATORIES documented in this encounter Visit Diagnoses Not on filedocumented in this encounter
--- OUTSIDE RECORDS SUMMARY | 2018-11-10 17:41 | XMS REPORT | Encounter Summary ---
Author Author [facility] Organization [facility] Address Unknown Phone Unavailable Care Team Providers Care Farm General Manager Name Role Phone Ange Frazier MD PCP Encounter Details Care Team Description Date Type Department Ange Frazier MD [address] [address] 12/29/2013 [facility] Encounter [address] [place], [place] [id number] Social History Date Tobacco Use Types Packs/Day [...] Name Priority Date/Time Associated Diagnosis LAB SUMMARY 01/24/2014 2:31 PM CDT THYROID STIMULATING Add-On 12/29/2013 HORMONE 12:23 PM CDT T4 FREE Routine 12/29/2013 12:23 PM CDT COMPREHENSIVE METABOLIC Routine 12/29/2013 PANEL 12:23 PM CDT CBC AND DIFF (MANUAL DIFF Routine 12/29/2013 IF NECESSARY) 12:23 PM CDT documented in this encounter Results * LAB SUMMARY (01/24/2014 2:31 PM CDT) Narrative Performed At Ordered by an unspecified provider. * Thyroid Stimulating Hormone (12/29/2013 12:23 PM CDT) Thyroid 30.10 (H) 0.47 - 4.68 uIU/mL [employer] [facility] [employer] [facility] Hormone LABORATORIES Specimen Blood Performing Organization Address City/[facility]/Zipcode Phone Number [facility] [address] [place], [place] [id number] LABORATORIES * T4 Free (12/29/2013 12:23 PM CDT) T4 Free 0.9 0.8 - 2.2 ng/dL [facility] Specimen Blood Performing Organization Address City/[facility]/Zipcode Phone Number [facility] [address] [place], [place] [phone] LABORATORIES * Comprehensive Metabolic Panel (12/29/2013 12:23 PM CDT) Sodium 136 133 - 147 MEQ/L [facility] Potassium 5.0 3.5 - 5.3 MEQ/L [facility] Chloride 93 (L) 96 - 112 MEQ/L [facility] Carbon Dioxide 23 20 - 32 MEQ/L [facility] Anion Gap 20 (H) 5 - 17 [facility] Calcium 9.9 8.4 - 10.5 mg/dL [facility] Glucose 50 (L) 70 - 100 mg/dL [facility] Protein Total 7.3 6.0 - 8.2 g/dL [facility] Serum [facility] LABORATORIES Albumin 4.8 3.5 - 5.0 g/dL [facility] Alkaline 91 42 - 140 IU/L [facility] Phosphatase [facility] Alanine 31 13 - 69 IU/L [facility] Aminotransferas [facility] e LABORATORIES Aspartate 32 15 - 46 IU/L [facility] Bilirubin Total 0.7 0.2 - 1.3 mg/dL [facility] Blood Urea 21 7 - 26 mg/dL [facility] [facility] Nitrogen [facility] LABORATORIES Creatinine 0.8 0.4 - 1.1 mg/dL [facility] eGFR Female AA 85Comment: Chronic Kidney [facility] Disease less than 60 REGIONAL mL/min/1.73 sq.m Kid[facility] LAB[facility]IES failure less than 15 mL/min/1.73 sq.m eGFR Female 71Comment: Chronic Kidney [facility] Non-AA Disease less than 60 REGIONAL mL/min/1.73 sq.m [facility] LAB[facility]IES failure less than 15 mL/min/1.73 sq.m Specimen Blood Performing Organization Address City/State/Zipcode Phone Number [facility] [address] [place] [address] LABORATORIES * CBC and Diff (manual diff if necessary) (12/29/2013 12:23 PM CDT) WBC 9.21 4.00 - 11.00 TH/uL [facility] RBC 3.89 (L) 4.00 - 5.00 MIL/uL [facility] Hemoglobin 11.6 (L) 12.0 - 15.0 g/dL [facility] Hematocrit 36 36 - 45 % [facility] MCV 92 80 - 99 fL [facility] MCH 30 27 - 34 pg [facility] MCHC 32 32 - 36 % [facility] RDW 16.5 (H) 9.0 - 14.5 % [facility] Platelet Count 408 (H) 140 - 400 TH/uL [facility] MPV 9.9 9.4 - 12.3 fL [facility] Nucleated RBCs 0 0 - 0 /100 [facility] LAB[facility]ATORIES % Neutrophils 68 45 - 78 % [facility] %Lymphocytes 22 15 - 47 % [facility] %Monocytes 9 0 - 12 % [facility] %Eosinophils 1 0 - 7 % [facility] %Basophils 1 0 - 2 % [facility] % Imm Grans 1 0 - 1 % [facility] # Granulocytes 6.31 1.70 - 6.80 TH/uL [facility] LABORATORIES # Lymphocytes 1.98 1.00 - 3.30 TH/uL [facility] # Monocytes 0.79 0.20 - 0.90 TH/uL [facility] LAB[facility]IES # Eosinophils 0.08 0.00 - 0.40 TH/uL [facility] LAB[facility]IES # Basophils 0.05 0.00 - 0.10 TH/uL [facility] LABOR[facility]IES Specimen Blood Performing Organization Address City/State/Zipcode Phone Number [facility] [address] [place] [address] LABORATORIES documented in this encounter Visit Diagnoses Not on filedocumented in this encounter
--- OUTSIDE RECORDS SUMMARY | 2018-11-10 17:41 | XMS REPORT | Encounter Summary ---
Author Author [facility] Organization [facility] Address Unknown Phone Unavailable Care Team Providers Care Paint Mixer Machine Name Role Phone Ange Frazier MD PCP Encounter Details Care Team Description Date Type Department Ange Frazier MD [address] [address] 01/10/2014 [facility] Encounter [address] [place], [place] [phone] Social History Date Tobacco Use Types Packs/Day [...] Priority Date/Time Associated Diagnosis LAB SUMMARY 01/24/2014 3:10 PM CDT IRON Routine 01/10/2014 3:34 PM CDT CBC AND DIFF (MANUAL DIFF Routine 01/10/2014 IF NECESSARY) 3:34 PM CDT documented in this encounter Results * LAB SUMMARY (01/24/2014 3:10 PM CDT) Narrative Performed At Ordered by an unspecified provider. * Iron (01/10/2014 3:34 PM CDT) Iron 61 50 - 180 ug/dL [facility] Specimen Blood Performing Organization Address City/[facility]/Zipcode Phone Number [facility] [address] [place] [address] LABORATORIES * CBC and Diff (manual diff if necessary) (01/10/2014 3:34 PM CDT) WBC 6.38 4.00 - 11.00 TH/uL [facility] RBC 4.11 4.00 - 5.00 MIL/uL [facility] Hemoglobin 12.4 12.0 - 15.0 g/dL [facility] Hematocrit 39 36 - 45 % [facility] MCV 95 80 - 99 fL [facility] MCH 30 27 - 34 pg [facility] MCHC 32 32 - 36 % [facility] RDW 16.6 (H) 9.0 - 14.5 % [facility] Platelet Count 288 140 - 400 TH/uL [facility] MPV 9.7 9.4 - 12.3 fL [facility] Nucleated RBCs 0 0 - 0 /100 [facility] % Neutrophils 61 45 - 78 % [facility] %Lymphocytes 29 15 - 47 % [facility] %Monocytes 8 0 - 12 % [facility] %Eosinophils 1 0 - 7 % [facility] %Basophils 1 0 - 2 % [facility] % Imm Grans 0 0 - 1 % [facility] # Granulocytes 3.91 1.70 - 6.80 TH/uL [facility] LABORATORIES # Lymphocytes 1.85 1.00 - 3.30 TH/uL [facility] LAB[facility]ATORIES # Monocytes 0.48 0.20 - 0.90 TH/uL [facility] LAB[facility]IES # Eosinophils 0.08 0.00 - 0.40 TH/uL [facility] LAB[facility]IES # Basophils 0.06 0.00 - 0.10 TH/uL [facility] LABOR[facility]IES Specimen Blood Performing Organization Address City/[facility]/Zipcode Phone Number [facility] [address] [place] [address] LABORATORIES documented in this encounter Visit Diagnoses Not on filedocumented in this encounter
--- OUTSIDE RECORDS SUMMARY | 2018-11-10 17:42 | XMS REPORT | Encounter Summary ---
Author Author [facility] Organization [facility] Address Unknown Phone Unavailable Care Team Providers Care Sample Driller Name Role Phone Ange Frazier MD PCP Encounter Details Care Team Description Date Type Department No Show 12/19/2013 [facility] [id number] [place] [address] Social History Date Tobacco Use Types Packs/Day [...] Signs Reading Time Taken Comments Vital Sign 157/75 12/19/2013 3:58 PM CDT Blood Pressure 76 12/19/2013 5:47 PM CDT Pulse 37.2 C (99 F) 12/19/2013 11:59 AM CDT Temperature 16 12/19/2013 3:00 PM CDT Respiratory Rate 96% 12/19/2013 5:47 PM CDT Oxygen Saturation - - Inhaled Oxygen Concentration - - Weight - - Height - - Body Mass Index documented in this encounter Discharge Instructions * Discharge Instr - Other Orders* Milli Sparrow RN - 12/19/2013 11:57 [place] [address] Patient Post-Operative Instructions: General Anesthesia / Regional / MAC 1. Balance and coordination may be affected for 12-[address] or ope rate dangerous equipment for the next 12-24 hours. 2. Do not return to work, conduct important business or sign legal documents for 12 hours. 3. Resume eating with clear liquids and advance as tolerated. 4. Do not consume alcohol, tranquilizers, sleeping pills or other non-prescribed medication for 12 hours, unless advised to do so by your physician. 5. Do not take pain medication on a empty stomach or mix with alcohol. 6. Notify your physician if any of the follow problems occur: Difficulty or inability to urinate Pain uncontrolled by pain medication Persistent vomiting Fever high than 100.5, redness, or drainage at the incision site Any other problems or questions 7. Follow printed instructions from physician, if applicable. 8. Level of alertness may be affected for 6-12 hours after discharge. We recomme nd that a responsible adult check level of consciousness by awakening patient ev zak 2 hours for 4-6 hours. Any questions or problems, call your physician, or go to the nearest Emergency Room if necessary. Call 911 if unable to awaken patien t, if patient is having difficulty breathing, or if patient is turning blue. 12/19/2013 11:57 AM documented in this encounter Medications at Time of Discharge [...] 6 hours for a total of 100mg 12/20/2013 12/20/2013 aspirin 325 MG EC tablet Take 1 tablet 0 (325 mg total) by mouth 2 (two) times a day. 02/23/2012 11/21/2014 clopidogrel (PLAVIX) 75 take 1 [...] every day documented as of this encounter Nursing Notes * Dorota Castillo, RN - 12/19/2013 4:[address] Mcdonnell @ bedside, informed of pain meds received and need to continued oxygen . Will admit overnoc for oxygen and pain control. Notified warehouse examiner. * Milli Sparrow RN - 12/19/2013 3:04 PM CDT Awoke pt at 1400 after napping for 1 hour. Expressed concerns about going home. Caregiver at bedside. Assisted pt with dressing and ambulated few steps with wa lker to wheelchair. C/o pain severe to knee, feels weak, shakey, out of it. Assi sted to BR and voided. Talked with pt in regards to wanting to go home or stayin g in the hospital. States afraid to go home because she is weak and is afraid sh e might fall. Assisted back to bed. Dr. Mcdonnell notified of need for revaluation. Very sleepy. Falls asleep mid sentence but states pain is a strong 9. 12.5mcg of fentanyl given due to pts drowsiness. O2 at2 l applied. COnt to monitor. * Milli Sparrow RN - 12/19/2013 1:25 PM CDT Pain meds given see MAR. Wants tosleep before attempting to go home. Caergiver u pdated earlier. Pt resting. VSS documented in this encounter Miscellaneous Notes * Operative Note - Cuate Mcdonnell DO - 12/20/2013 4:59 PM CDT Name: PAMELA VÁSQUEZ Date of : 1940 Attending Physician: Cuate Mcdonnell DO Date of Procedure: 12/19/2013 PREOPERATIVE DIAGNOSES: 1. Right knee arthrofibrosis. 2. Status post right total knee arthroplasty. PREOPERATIVE DIAGNOSES: 1. Right knee arthrofibrosis. 2. Status post right total knee arthroplasty. PROCEDURE: Manipulation under anesthesia, right knee. COMPLICATIONS: None. DESCRIPTION OF PROCEDURE: After informed consent was obtained, Ms. Vásquez was b rought to the operating room at [facility]. Once satisfactory anesthesia was obtained, the patient's right lower extremity was examined. Prio r to manipulation, approximately 85 degrees of flexion was obtained. A gentle m anipulation procedure was performed and approximately 120 degrees of flexion was obtained without significant difficulty. The patient's knee was then injected for postoperative pain control. The patient was then awakened secondary to disc omfort as well as starting a new medication and decreased O2 saturation. Nigel adrian was admitted to the hospital. Cuate Mcdonnell DO [id number] CC: documented in this encounter Plan of Treatment Not on filedocumented as of this encounter Visit Diagnoses Not on filedocumented in this encounter Administered Medications Action Date Dose Rate Site Medication Order MAR Action 12/19/2013 12:39 PM CDT 5 mg diazepam (VALIUM) tablet 5 mg Given 5 mg, Oral, Once, Wed12/19/13 at 1300, For 1 dose, PACU (only) 12/19/2013 12:34 PM CDT 50 mcg fentaNYL (SUBLIMAZE) 50 mcg/mL injection Given 25-50 mcg 25-50 mcg, Intravenous, Every 5 min PRN, severe pain (pain score 7-10), Starting Tu12/19/13 at 1109, For 4 doses, Pre-op, Up to 100 mcg total., 50 mcg Given 12/19/2013 12:08 PM CDT 12/19/2013 2:50 PM CDT 12.5 mcg fentaNYL (SUBLIMAZE) 50 mcg/mL injection Given 25-50 mcg 25-50 mcg, Intravenous, Every 5 min PRN, pain, Starting Wed12/19/13 at 1201, PACU (only), Give only if RR is greater than 8 breaths/min. Maximum of 200 mcg in 2 hours., 12/19/2013 10:32 AM CDT 100 mL/hr 100 mL/hr lactated ringers infusion New Bag 100 mL/hr, Intravenous, Continuous, Starting Wed12/19/13 at 1015, Pre-op 12/19/2013 4:25 PM CDT 15 mg morphine (MS CONTIN) 12 hr tablet 15 mg Given 15 mg, Oral, Once, e 12/19/13 at 1615, For 1 dose, PACU (only), Give dose now (not @ 2100) DO NOT CRUSH OR CHEW., 12/19/2013 12:15 PM CDT 5 mg morphine injection 1-5 mg Given 1-5 mg, Intravenous, Every 5 min PRN, severe pain (pain score 7-10), pain unrelieved by fentanyl., Starting Wed12/19/13 at 1201, PACU (only), Give for pain unrelieved by fentanyl, and if RR is greater than 8 breaths/min. Maximum of 20 mg in 3 hours., 12/19/2013 11:24 AM CDT 5 mg morphine injection 5 mg Given 5 mg, Intravenous, Once, Wed12/19/13 at 1130, For 1 dose, Pre-op 12/19/2013 11:22 AM CDT 4 mg ondansetron (ZOFRAN) 4 mg/2 mL injection Given 4 mg 4 mg, Intravenous, Once, Wed12/19/13 at 1130, For 1 dose, Pre-op 12/19/2013 12:39 PM CDT 100 mg traMADol (ULTRAM) tablet 50-100 mg Given 50-100 mg, Oral, Once, Wed12/19/13 at 1300, For 1 dose, PACU (only) documented in this encounter
--- OUTSIDE RECORDS SUMMARY | 2018-11-10 17:42 | XMS REPORT | Encounter Summary ---
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 Name Role Phone Ange Frazier MD PCP Encounter Details Care Team Description Date [place] [address] [place] [address] [phone] 12/19/2013 [facility] 12/20/[id number] [place] [address] Social History Date Tobacco Use Types Packs/Day [...] Signs Reading Time Taken Comments Vital Sign 110/62 12/20/2013 7:56 AM CDT Blood Pressure 76 12/20/2013 7:56 AM CDT Pulse 36.9 C (98.4 F) 12/20/2013 7:56 AM CDT Temperature 16 12/20/2013 7:56 AM CDT Respiratory Rate 96% 12/20/2013 7:56 AM CDT Oxygen Saturation - - Inhaled Oxygen Concentration 63 kg (139 lb) 12/19/2013 6:21 PM CDT Weight 160 cm (5' 2.99") 12/19/2013 6:21 PM CDT Height 24.63 12/19/2013 6:21 PM CDT Body Mass Index documented in this encounter Discharge Instructions * Discharge Instr - Other Orders* Elvira Rodrigues, RN - 12/20/2013 10:58 AM CDT Follow up Appointment: Dr. Mcdonnell - as scheduled documented in this encounter Medications at Time [...] every day documented as of this encounter Progress Notes * Casimiro Andre, PT - 12/20/2013 9:18 AM CDT 12/20/13 09 Visit Info Initial PT Visit On 12/20/13 Assessed for Rehab Yes Referral Reason manipulation R knee under anesthesia Patient/Family Reports Pt. reports 7-8/10 pain in R knee. Nurse present to give pt. pain medication. Reports allergic to most pain meds. PT Received On 12/20/13 Time Calculation Start Time 824 Stop Time 904 Precautions Weight Bearing Status Weight Bearing As Tolerated RLE Fall Risk No Home Living Type of Home House Home Layout One level Stairs to enter 1 step;No handrails Stairs to basement 10-12 steps;1 handrail Lives With Alone (friend will stay next week. 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 Pain Assessment Pain Score 7 Pain Type Surgical pain Pain Location Knee Cognition Overall Cognitive Status WFL Arousal/Alertness Appropriate responses to stimuli Attention Span Appears intact Orientation Level Oriented to person;Oriented to place;Oriented to time;Oriented to situation Transfers Assistive Device Rolling walker Sit to Stand Transfers Modified independent Stand to Sit Transfers Modified independent Gait Gait Distance (Feet) 250 Assistive Device Rolling walker Gait Level Surface Assistance Modified independent Pattern L Decreased stance time;R Decreased terminal knee extension;Decreased he el strike Stair Management Technique With walker Stair Management Assistance Modified independent Curb Modified independent (1 step x 2 reps) Balance Sitting Static 5 Sitting Dynamic 5 Standing Static 3 Standing Dynamic 2 Activity Tolerance Activity Tolerance fair Sensation Light Touch Intact RLE Assessment RLE Assessment X AROM RLE (degrees) R Knee Flexion 95 R Knee Extension 4 LLE Assessment LLE Assessment WFL Assessment Learning Barriers None Response to Treatment Good Problem List ROM;Strength;Gait Timeframe Timeframe STG 3 days Gait Distance/Assist Goals Gait Distance STG (ft) 1000 ft Gait Distance STG Goal Status New goal Gait Assist STG Modified independent ROM STG Goals Area 1/Degrees new goal (0-100) Plan Pt/Family Goal back to normal Pt/Family involved in Plan of Care Yes (no family present) Treatment/Interventions Gait training;LE strengthening/ROM Frequency Twice a day Recommendation Plan Continued PT;Home PT Equipment Recommended (has a RW) documented in this encounter H&P Notes * Roosevelt Pina RN APRN - 12/19/2013 11:30 AM CDT Chief complaint: Right knee pain and stiffness s/p Right TKA Allergies: Demerol Dilaudid Hydrocodone Oxycontin Sulfa Latex Medications: See medication reconciliation list already signed by provider. ROS: No complaints at this time after 10 system review Exam: HEENT: WNL Cardiac: HRRR Lungs: LCTA Abd: Soft, non-tender, sounds present Urinary: deferred Rectal: deferred Gynecological: deferred. Mental: A&O x 3 and appropriate w/ no focal defects. Cranial Nerves grossly intact. Assessment: Right knee pain Plan: Manipulation of the right knee under anesthesia and discharge home thereafter if anesthesia dc criteria is met. documented in this encounter Miscellaneous Notes * Plan of Care - Alexa Dale - 12/20/2013 9:49 AM CDT Problem: Pain Goal: Patients pain/discomfort is manageable Assess and monitor patients pain using appropriate pain scale. Collaborate [facility] interdisciplinary team and initiate plan and interventions as ordered. Re-ass ess patients pain level 30 - 60 minutes after pain management intervention. Outcome: Adequate for Discharge Pt taking Home dose of MS contin and tramadol for pain management Problem: Safety Goal: Patient will be injury free during hospitalization Assess and monitor vitals signs, neurological status including level of consciou sness and orientation. Assess patients risk for falls and implement fall prev ention plan of care and interventions per hospital policy. Ensure arm band on, uncluttered walking paths in room, adequate room lighting, c all light and overbed table within reach, bed in low position, wheels locked, si de rails up per policy, and non-skid footwear provided. Outcome: Adequate for Discharge Pt is up ad anais with front wheeled walker per PT Problem: Discharge Barriers Goal: Patients discharge needs are met Collaborate with interdisciplinary team and initiate plans and interventions as needed. Outcome: Adequate for Discharge Pt discharging home with self care Problem: Potential for Infection Goal: Remains infection free Assess and monitor vital signs, skin (color, moisture, integrity, turgor), respi ratory status, urinary and gastrointestinal status, and labs (WBC, cultures). 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 Ensure aseptic care of all int ravenous lines, invasive tubes/drains and wounds. Monitor for signs and symptoms of infection (redness, warmth, discharge, increased body temperature). Wash chatterjee ds properly before and after each patient care activity. Follow isolation guidel jasmyn per hospital protocol/policy. Collaborate with interdisciplinary team and i nitiate plan and interventions as ordered. Outcome: Adequate for Discharge No s/s of infection, no redness, warmth or drainage present at this time documented in this encounter Plan of Treatment Not on filedocumented as of this encounter Procedures Comments Procedure Name Priority Date/Time Associated Diagnosis LAB SUMMARY 01/25/2014 8:34 AM CDT POTASSIUM Routine 12/19/2013 10:10 PM CDT MAGNESIUM Routine 12/19/2013 10:10 PM CDT CREATININE Routine 12/19/2013 10:10 PM CDT XR KNEE 1 OR 2 VIEWS STAT 12/19/2013 RIGHT 4:06 PM CDT documented in this encounter Results * LAB SUMMARY (01/25/2014 8:34 AM CDT) Narrative Performed At Ordered by an unspecified provider. * Potassium (12/19/2013 10:10 PM CDT) Potassium 5.8 (H) 3.5 - 5.3 MEQ/L [facility] Specimen Blood - Blood Performing Organization Address City/State/Zipcode Phone Number [facility] [address] [place] [address] * Magnesium (12/19/2013 10:10 PM CDT) Magnesium 1.9 1.4 - 2.7 mg/dL [facility] Specimen Blood - Blood Performing Organization Address City/[facility]/Zipcode Phone Number [facility] [address] [place] [address] * Creatinine (12/19/2013 10:10 PM CDT) Creatinine 0.6 0.4 - 1.1 mg/dL [facility] eGFR Female AA [address] [facility] Comment: [facility] Chronic Kidney Disease less than 60 mL/min/1.73 sq.m Kidney failure less than 15 mL/min/1.73 sq.m eGFR Female [address] [facility] Non-AA Comment: [facility] Chronic Kidney Disease less than 60 mL/min/1.73 sq.m Kidney failure less than 15 mL/min/1.73 sq.m Specimen Blood - Blood Performing Organization Address City/[facility] Phone Number [facility] [address] [place] [address] * XR Knee 1 or 2 views right (12/19/2013 4:06 PM CDT) Specimen Impressions Performed At Impression: XIMENA 1. 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 No evidence of acute osseous abnormality. 2. Evidence of large joint effusion increased capsular distention from the comparison study. Narrative Performed At Patient: GUERDA VÁSQUEZ Phone#: med Rec#: [id number] Sex#:F # [id number] Cindy#:[id number] Location:[facility] ORS-06Accession#: [id number] Procedure Requested:[id number] XR KNEE 1 OR 2 VIEWS RIGHT Reason for Exam:pain after manipulation Exam Ordered:12/19/20131505 Exam Date/Time: Check-in Date/Time: XR KNEE 1 OR 2 VIEWS RIGHT Date: Dec 19, 2013 04:06:28 PM Indication:pain after manipulation Comparison: November 07, 2013 postoperative right knee series. Findings: AP and lateral viewsdemonstrates a totalknee prosthesis in satisfactory and stable position. There are no acute fractures identified. Improved postop soft tissue changes are seen. Increased joint effusion, predominantly suprapatellar. 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 Procedure Note Interface, Rad Results In - 12/19/2013 4:15 PM CDT Patient: PAMELA VÁSQUEZ Phone#: [facility] Rec#: [id number] Sex#: F # [id number] Cindy#: [id number] Location: [place] [address] Procedure Requested: [id number] XR KNEE 1 OR 2 VIEWS RIGHT Reason for Exam: pain after manipulation Exam Ordered: 12/19/2013 1505 Exam Date/Time: 12/19/2013 1606 Check-in Date/Time: 12/19/2013 1606 XR KNEE 1 OR 2 VIEWS RIGHT Date: Dec 19, 2013 04:06:28 PM Indication: pain after manipulation Comparison: November 07, 2013 postoperative right knee series. Findings: AP and lateral views demonstrates a total knee prosthesis in satisfactory and stable position. There are no acute fractures identified. Improved postop soft tissue changes are seen. Increased joint effusion, predominantly suprapatellar. 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 Impression: 1. 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 No evidence of acute osseous abnormality. 2. Evidence of large joint effusion increased capsular distention from the comparison study. Performing Organization Address City/State/Zipcode Phone Number [facility] documented in this encounter Visit Diagnoses Diagnosis Chronic knee pain Pain in joint, lower leg Right knee pain Pain in joint, lower leg documented in this encounter Administered Medications Action Date Dose Rate Site Medication Order MAR Action 12/20/2013 8:27 AM CDT 325 mg aspirin EC tablet 325 mg Given 325 mg, Oral, 2 times daily, First dose on Wed12/19/13 at 2100, DO NOT CRUSH OR CHEW., 325 mg Given 12/19/2013 10:25 PM CDT 12/20/2013 8:27 AM CDT 100 mg docusate sodium (COLACE) capsule 100 mg Given 100 mg, Oral, 2 times daily PRN, constipation, stool softening, Starting Wed12/19/13 at 1824, Hold these medications if patient has had loose stool or diarrhea within previous 24 hours., 12/20/2013 8:27 AM CDT 50 mg metoprolol (TOPROL-XL) 24 hr tablet 50 Given mg 50 mg, Oral, Daily, First dose on Wed12/20/13 at 0900, DO NOT CRUSH OR CHEW., 12/20/2013 5:48 AM CDT 15 mg morphine (MS CONTIN) 12 hr tablet 15 mg Given 15 mg, Oral, Every 12 hours scheduled, First dose on Wed12/20/13 at 0500, DO NOT CRUSH OR CHEW., 12/20/2013 1:57 AM CDT 80 mg pravastatin (PRAVACHOL) tablet 80 mg Given 80 mg, Oral, Nightly, First dose on Wed12/20/13 at 0030 12/20/2013 10:44 AM CDT 50 mg traMADol (ULTRAM) tablet 50-100 mg Given 50-100 mg, Oral, Every 6 hours PRN, moderate pain (pain score 4-6), Starting Wed12/20/13 at 0006 50 mg Given 12/20/2013 8:27 AM CDT 50 mg Given 12/20/2013 1:56 AM CDT documented in this encounter
--- OUTSIDE RECORDS SUMMARY | 2018-11-10 17:42 | XMS REPORT | Encounter Summary ---
Author Author [facility] Organization [facility] Address Unknown Phone Unavailable Care Team Providers Care Diving Judge Name Role Phone Ange Frazier MD PCP Encounter Details Care Team Description Date Type Department [place] [id number] [place] [address] [place] [address] [phone] Amauri Velazco RN CHEESE TESTER NO FORWARDING ADDRESS 12/19/2013 Anesthesia [facility] [id number] [place] [address] Anesthesia Record Responsible Anesthesiologist Anesthesia Start Time Anesthesia Stop Time Procedure Name Dylan Nelson DO 12/19/13 1134 12/19/13 1155 KNEE MANIPULATION Date Time Event Comment 1106 111 AN Equip Check 1134 In room 1134 An Start 1134 An Start Data 1134 Pt eval immediately prior to anesthesia 1134 Anesthesia Ready 1134 Oxygen per nasal cannula 1147 Sedation begin 1147 Spontaneous respirations 1148 Procedure start - Primary Case 1150 Local injected per surgeon 1150 Procedure stop - Primary case 1152 an stop data 1152 Out of Room 1154 Handoff I completed my SBAR handoff to the receiving nurse in the PACU. 1155 An Stop Meds Name Total lidocaine 2% (PF) 60 mg propofol 10mg/mL 60 mg lactated ringers infusion 600 mL * Name O2 * No blood administrations on file. Removal Type Details Placement 11/06/18 0836 by User Shelbi (Retired 11/07/13; 1057; Knee; Right; incision; 11/07/13 1057 by Vickie 05/11/18; 11/06/18 (This LDA has been removed & Lucas Ricardo RN search completed via automated utility); 0836 "wound" if (This LDA has been removed & completed placing via automated utility) new) Wound - Incision Assessment 12/20/13 1030 by RONALDO Christianson Peripheral Date: 12/19/13; Time: 1032; Size 12/19/13 1032 by Vickie IV (gauge): 20 G; Orientation: Right; Renae Carson RN Location: Antecubital; Site Prep: Chlorhexidine; Technique: Anatomical landmarks; Insertion Attempts: 1; Inserted By: Amanda Birght RN; Removal Date: 12/20/13; Removal Time: 1030 documented in this encounter Social History Date Tobacco Use Types Packs/Day Years Used Never Smoker Drinks/Week oz/Week Comments Alcohol Use 1 drink a week Yes Sex Assigned at Date Recorded Not on file Industry Job Start Date Occupation Not on file Not on file Not on file Travel End Travel History Travel Start No recent travel history available. documented as of this encounter Miscellaneous Notes * Anesthesia Postprocedure Evaluation - Kermit Urbina RN CHEESE TESTER - 12/19/2013 2:05 PM CDT Patient: Sydnee Love * No procedures listed * Final Anesthesia Type Performed: general *Block Type (if peripheral regional or epidural used): No value filed. Patient location: PACU Last Vitals Blood pressure 165/76, pulse 75, resp. rate 20, height 1.6 m (5' 3"), weight 63. 05 kg (139 lb), SpO2 96.00%. Level of consciousness: awake, alert and oriented Post-anesthesia pain: adequate analgesia Airway patency: patent Respiratory: unassisted Cardiovascular: stable and blood pressure at baseline Hydration: adequate PostOp Nausea/Vomiting: controlled Difficult Airway: no Anesthetic complications: no Discharge from anesthesia care: Appropriate for discharge from anesthesia care, no apparent anesthesia related complications T * Anesthesia Preprocedure Evaluation - Dylan Nelson DO - 12/19/2013 10:59 AM CDT Anesthesia Evaluation Patient summary reviewed and Nursing notes reviewed History of anesthetic complications (ponv) Airway Mallampati: I TM distance: >3 FB Neck ROM: full Dental - normal exam Pulmonary - negative ROS and normal exam Cardiovascular - normal exam (+) hypertension well controlled, CAD (Stress test 05/01 negative with nl LV func tion), Neuro/Psych (+) TIA, GI/Hepatic/Renal (+) GERD well controlled, Endo/Other (+) hypothyroidism, Abdominal Obstetrics Anesthesia Plan ASA 2 Type: general () Plan to include: spontaneous ventilation Patient currently taking beta carmela. Beta carmela will be maintained perioper atively. Anesthetic plan and risks discussed with patient. Plan discussed with CHEESE TESTER. Post-operative analgesia: routine analgesia and antiemetics Recovery plan: PACU Risk factors for PONV: surgical procedure type, female, non smoker, Hx PONV and need for post-operative narcotics PONV risk level: high documented in this encounter Plan of Treatment Not on filedocumented as of this encounter Visit Diagnoses Not on filedocumented in this encounter Administered Medications Action Date Dose Rate Site Medication Order MAR Action 12/19/2013 11:47 AM CDT 60 mg lidocaine (pf) (XYLOCAINE-MPF) 20 mg/mL Given (2 %) injection As needed, Starting 12/19/13 at 1147, Anesthesia Intra-op 12/19/2013 11:47 AM CDT 60 mg propofol (DIPRIVAN) injection Given As needed, Starting Tu12/19/13 at 1147, Anesthesia Intra-op documented in this encounter
--- OUTSIDE RECORDS SUMMARY | 2018-11-10 17:42 | XMS REPORT | Encounter Summary ---
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 Pt has rt knee surgery the end of October. Pt oriented x 3. Encounter Details Care Team Description Date Type Department Al Finney MD [address] [place], [place] [id number] Confusion (Primary Dx) 12/22/2013 Emergency [facility] [id number] [place] [address] Social History Date Tobacco Use Types Packs/Day [...] Signs Reading Time Taken Comments Vital Sign 158/72 12/22/2013 1:29 PM CDT Blood Pressure 74 12/22/2013 1:29 PM CDT Pulse 36.6 C (97.9 F) 12/22/2013 11:23 AM CDT Temperature 22 12/22/2013 1:29 PM CDT Respiratory Rate 97% 12/22/2013 1:29 PM CDT Oxygen Saturation - - Inhaled Oxygen Concentration 63 kg (139 lb) 12/22/2013 11:23 AM CDT Weight 160 cm (5' 2.99") 12/22/2013 11:23 AM CDT Height 24.63 12/22/2013 11:23 AM CDT Body Mass Index documented in this encounter Discharge Instructions * Instructions* Al Finney MD - 12/22/2013 Confusion Confusion is a change in a persons ability to think clearly. There may be tro uble recognizing familiar people and places, or knowing what day it is. Memory, judgement and decision-making may also be affected. In severe cases there may be limited or no response to verbal commands. Confusion may occur suddenly or develop gradually over time. There are many inju feliz and medical conditions that can cause this problem. These include brain inj ury, side effect of medication, intoxication, withdrawal from drugs, infection, stroke, dementia,mental illness and other causes. The exam and testing today did not show the cause of this problem. Further testi ng will be needed. Specific treatment and hope for recovery depend on the cause of this symptom. Home Care: 1. Be sure someone is with the confused person at all times. He/she should not b e left alone or unsupervised. 2. Keep medicines (prescription and ixju-hqf-hunycho) in a secure place, under t he caregivers control. A person with confusion should not be allowed to take their own medicines.This needs to be supervised by the caregiver. 3. Ways to help a person with confusion: Activities:Establish a daily routine. Change can be a source of stress fo r someone with confusion. Make a time schedule for common tasks such as: bathing , dressing, taking medicines, meals, going for walks, shopping, naps and bed pedrito e. Communication:Speak slowly and clearly with a gentle tone of voice. Use s hort simple words and sentences. Ask one question at a time. Do not interrupt, c riticize or argue. Be calm and supportive. Use friendly facial expressions. Use pointing and touching to help communicate. If there has been loss of long-term m amrik, do not ask questions about past events. This would only cause frustration for the person. Behavioral tips:Use lists, signs, family photos, clocks and calendars as memory aids. Label cabinets and drawers. Try to distract, not confront, the ximena ent. When he/she becomes frustrated or upset, redirect his/her attention to eati ng or some other activity of interest. Medical-Legal tips: If this proves to be a permanent condition, talk to your doctor and/or founder chairman and chief creative officer about getting a Power of Pooling Operator for health care and for f inancial decisions. It is best to do this while the person can still sign legal documents and make his/liborio own legal decisions. Otherwise, a court order will b e required. Follow-Up with the patients doctor or as advised by our staff for further testing. Get Prompt Medical Attention if any of the following occur: Frequent falling Refusal to eat or drink Violent behavior or behavior becomes too difficult to manage at home Increased drowsiness, or failure to respond normally Increasing headache, nausea or repeated vomiting Numbness or weakness of the face, one arm or one leg Slurred speech, trouble speaking, walking or seeing Fainting spell, dizziness or seizure Unexplained fever over 100.4 F (38.0 C) oral [id number] [facility], [address] [place] [address]. All r ights reserved. This information is not intended as a substitute for professiona l medical care. Always follow your healthcare professional's instructions. documented in this encounter Medications at Time [...] every day documented as of this encounter ED Notes * Genesis Liu RN - 12/22/2013 1:10 PM CDT Fluids still infusing. * Genesis Liu RN - 12/22/2013 1:10 PM CDT Bed rails are up and call light is within reach. * Genesis Liu RN - 12/22/2013 1:10 PM CDT Family at bedside. * Soledad Cox RN - 12/22/2013 11:25 AM CDT Bed rails are up and call light is within reach. * Al Finney MD - 12/22/2013 11:23 AM CDT History Chief Complaint Patient presents with Altered Mental Status Pt was confused when home health arrived this am. Pt has rt knee surgery the end of October. Pt oriented x 3. Patient is a 73 y.o. female presenting with altered mental status. The history i s provided by the patient. Altered Mental Status Presenting symptoms comment: Pt per EMS last seen normal at 1800 last night-pt reports awoke from deep sleep by home health nurse-not fully awake-pt states fel t groggy-pt with h/o chronic pain-recently started on MS Contin-pt feeling riaz r now-able to state name-oriented to time, place, situation-remembers exact day of recent R knee surgery in October. No F/C/S, no N/V/D Severity: Moderate Progression: Resolved Chronicity: New Context: recent change in medication (change in pain meds) Context: not alcohol use, not dementia and not head injury Associated symptoms: no abdominal pain, no bladder incontinence, no decreased ap petite, no fever, no nausea, no seizures, no slurred speech and no vomiting Past Medical History Diagnosis Date TIA (transient ischemic attack) Coronary artery disease Hyperlipidemia Hypertension Disease of thyroid gland Vertigo Hypothyroidism PONV (postoperative nausea and vomiting) Allergic rhinitis HL (hearing loss) bilateral hearing aids Cataract GERD (gastroesophageal reflux disease) Osteoarthritis Skin cancer Shingles post traumatic neurolagia spine arm right breast Past Surgical History Procedure Laterality Date Bunionectomy Cataract extraction, bilateral Pr knee scope,clean/drain right knee Replacement total knee Right 11/07/2013 Procedure: RIGHT TOTAL KNEE ARTHROPLASTY; Surgeon: Cuate Mcdonnell DO; Locati on: [facility] Main OR; Service: Orthopedics; Laterality: Right; [id number] History reviewed. No pertinent family history. History Substance Use Topics Smoking status: Never Smoker Smokeless tobacco: Not on file Alcohol Use: Yes Comment: 1 drink a week Review of Systems Constitutional: Negative for fever and decreased appetite. Gastrointestinal: Negative for nausea, vomiting and abdominal pain. Genitourinary: Negative for bladder incontinence. Neurological: Negative for seizures. Psychiatric/Behavioral: Positive for altered mental status. All other systems reviewed and are negative. Physical Exam BP 158/72 | Pulse 74 | Temp(Src) 36.6 C (97.9 F) (Tympanic) | Resp 22 | Ht 1 .6 m (5' 2.99") | Wt 63.05 kg (139 lb) | BMI 24.63 kg/m2 | SpO2 97% Physical Exam Nursing note and vitals reviewed. Constitutional: She is oriented to person, place, and time. She appears well-dev eloped and well-nourished. HENT: Head: Normocephalic and atraumatic. Mouth/Throat: Oropharynx is clear and moist. Eyes: Conjunctivae and EOM are normal. Pupils are equal, round, and reactive to light. Neck: Normal range of motion. Neck supple. Cardiovascular: Normal rate, regular rhythm and normal heart sounds. Pulmonary/Chest: Effort normal and breath sounds normal. No respiratory distress . She has no wheezes. She has no rales. Abdominal: Soft. Bowel sounds are normal. She exhibits no distension. There is n o tenderness. There is no rebound. Musculoskeletal: Normal range of motion. She exhibits no edema. Neurological: She is alert and oriented to person, place, and time. She has norm al reflexes. No cranial nerve deficit. She exhibits normal muscle tone. Coordina tion normal. Skin: Skin is warm and dry. No rash noted. Psychiatric: She has a normal mood and affect. Her behavior is normal. Judgment and thought content normal. R arm weakness no L arm weakness no R leg weakness no L leg weakness no R arm altered sensation no L arm altered sensation no R leg altered sensation no L leg altered sensation no Facial droop no Ataxia no Abnormal Rhomberg not tested Abnormal finger to nose no ED Course Procedures MDM Suspect confusion related to lack of sleep and pain medications-pt back to [facility] in NAD-if work up unremarkable then d/c back to home anticipated. EKG: per my interpretation shows sinus rhythm, normal axis, normal intervals wit h a rate of 71 . There are not any ST changes concerning for ischemia. LABS Results for orders placed during the hospital encounter of 12/22/13 (from the [facility] 24 hour(s)) CBC AND DIFF (MANUAL DIFF IF NECESSARY) Result Value Range WBC 10.38 4.00 - 11.00 TH/uL RBC 3.38 (*) 4.00 - 5.00 MIL/uL Hemoglobin 9.8 (*) 12.0 - 15.0 g/dL Hematocrit 30 (*) 36 - 45 % MCV 90 80 - 99 fL MCH 29 27 - 34 pg MCHC 32 32 - 36 % RDW 15.1 (*) 9.0 - 14.5 % Platelet Count 355 140 - 400 TH/uL MPV 9.2 (*) 9.4 - 12.3 fL Nucleated RBCs 0 0 - 0 /100 %Segmented Neutrophils 67 45 - 78 % %Lymphocytes 27 15 - 47 % %Monocytes 5 0 - 12 % %Eosinophils 0 0 - 7 % %Basophils 0 0 - 2 % % Imm Grans 1 0 - 1 % # Granulocytes 6.98 (*) 1.70 - 6.80 TH/uL # Lymphocytes 2.83 1.00 - 3.30 TH/uL # Monocytes 0.52 0.20 - 0.90 TH/uL # Eosinophils 0.02 0.00 - 0.40 TH/uL # Basophils 0.03 0.00 - 0.10 TH/uL COMPREHENSIVE METABOLIC PANEL Result Value Range Sodium 134 133 - 147 MEQ/L Potassium 4.8 3.5 - 5.3 MEQ/L Chloride 96 96 - 112 MEQ/L Carbon Dioxide 29 20 - 32 MEQ/L Anion Gap 10 5 - 17 Calcium 9.4 8.4 - 10.5 mg/dL Glucose 95 70 - 100 mg/dL Protein Total Serum 6.9 6.0 - 8.2 g/dL Albumin 4.2 3.5 - 5.0 g/dL Alkaline Phosphatase 75 42 - 140 IU/L Alanine Aminotransferase 26 13 - 69 IU/L Aspartate Aminotransferase 27 15 - 46 IU/L Bilirubin Total 0.5 0.2 - 1.3 mg/dL Blood Urea Nitrogen 21 7 - 26 mg/dL Creatinine 0.7 0.4 - 1.1 mg/dL GFR Female AA 99 GFR Female Non-AA 82 URINALYSIS Result Value Range Appearance, Urine Yellow Glucose Urine Negative Negative mg/dL Bilirubin Urine Negative Negative Ketones Urine Negative Negative mg/dL Specific [place], UA <=1.005 1.001 - 1.030 Hemoglobin Urine Negative Negative PH Urine 6.5 5.0 - 8.0 Protein Urine Qual Negative Negative mg/dL Urobilinogen Urine Negative Negative EU/dL Leukocyte Esterase Negative Negative URINE NITRITE Result Value Range Nitrite Urine Negative Negative RADIOLOGY CT HEAD WO CONTRAST Final Result: IMPRESSION: 1. No acute intracranial hemorrhage, mass effect, or midline shift. 2. Stable moderate chronic microvascular ischemic disease. Dictation Site: [facility] XR CHEST SINGLE VIEW FRONTAL Final Result: Impression: No active disease. Dictation Location: [facility] DIAGNOSIS Problem List Items Addressed This Visit None Visit Diagnoses Confusion - Primary FOLLOW UP Ange Frazier MD [address] [facility] [address] In 2 days As needed if symptoms worsen Discussed with the patient./family/guardian the plan and all questioned fully an swered. Return precautions instructed. Discussed no driving, operating machinery, or other activity that requires non a ltered state of mind while on narcotics/benzodiazepines/other mind altering pres criptions. Patient/family/guardian expressed understanding and will not engage in activities that require concentration while on these medications. ED Clinical Impression SNOMED CT(R) 1. Confusion CONFUSIONAL STATE Al Finney MD 12/22/13 1530 documented in this encounter Plan of Treatment Not on filedocumented as of this encounter Procedures Comments Procedure Name Priority Date/Time Associated Diagnosis LAB SUMMARY 01/25/2014 8:47 AM CDT URINE NITRITE STAT 12/22/2013 12:45 PM CDT URINALYSIS (INCLUDES STAT 12/22/2013 MICROSCOPIC REVIEW, IF 12:45 PM CDT INDICATED) CT HEAD WO CONTRAST STAT 12/22/2013 12:06 PM CDT XR CHEST SINGLE VIEW STAT 12/22/2013 FRONTAL 11:37 AM CDT COMPREHENSIVE METABOLIC STAT 12/22/2013 PANEL 11:25 AM CDT CBC AND DIFF (MANUAL DIFF STAT 12/22/2013 IF NECESSARY) 11:25 AM CDT PULSE OXIMETRY, STAT 12/22/2013 CONTINUOUS 11:23 AM CDT ECG STAT 12/22/2013 11:19 AM CDT documented in this encounter Results * LAB SUMMARY (01/25/2014 8:47 AM CDT) Narrative Performed At Ordered by an unspecified provider. * Urine Nitrite (12/22/2013 12:45 PM CDT) Nitrite Urine Negative Negative [facility] Specimen Urine - Urine Performing Organization Address City/State/Zipcode Phone Number [facility] [address] [place] [address] * Urinalysis (12/22/2013 12:45 PM CDT) Appearance, Yellow [facility] Glucose Urine Negative Negative mg/dL [facility] Bilirubin Urine Negative Negative [facility] Ketones Urine Negative Negative mg/dL [facility] Specific <=1.005 1.001 - 1.030 [facility] [place], UA [facility] Hemoglobin Negative Negative [facility]rine [facility] PH Urine 6.5 5.0 - 8.0 [facility] Protein Urine Negative Negative mg/dL [facility] Qual [facility] Urobilinogen Negative Negative EU/dL [facility] Leukocyte Negative Negative [facility] Esterase [facility] Specimen Urine - Urine Performing Organization Address City/State/Zipcode Phone Number [facility] [address] [place] [address] * CT Head wo contrast (12/22/2013 12:06 PM CDT) Specimen Impressions Performed At IMPRESSION: XIMENA 1. No acute intracranial hemorrhage, mass effect, or midline shift. 2. Stable moderate chronic microvascular ischemic disease. Dictation Site: [facility] Narrative Performed At Patient: GUERDA VÁSQUEZ Sex#:F # 1940 Cindy#:[id number] [id number] Procedure Requested:[id number] CT HEAD WO CONTRAST Reason for Exam:confusion Exam Ordered: Exam Date/Time: Check-in Date/Time: CT Head without contrast CLINICAL HISTORY: Confusion TECHNIQUE: Multiple contiguous axial images were obtained of the head without the use of IV contrast. COMPARISON: CT head of 09/15/2013 and 02/01/2012, MRI brain of 09/15/2013 FINDINGS: No acute intracranial hemorrhage or extra-axial fluid collection. No midline shift or mass effect. Ventricles are normal in size and configuration. No midline shift or mass effect. Stable scattered areas of diminished attenuation within the subcortical and periventricular white matter compatible with chronic microvascular ischemic disease. Similar focus of chronic or infarct involving the left anterolateral basal ganglia. Calvarium is intact. Visualized paranasal sinuses and mastoid air cells are clear. Procedure Note Interface, Rad Results In - 12/22/2013 12:31 PM CDT Patient: PAMELA VÁSQUEZ Sex#: Delfino # 1940 Cindy#: [id number] Location: [facility] [place]- Procedure Requested: [id number] CT HEAD WO CONTRAST Reason for Exam: confusion Exam Ordered: 12/22/2013 1123 Exam Date/Time: 12/22/2013 1215 Check-in Date/Time: 12/22/[address] Head without contrast CLINICAL HISTORY: Confusion TECHNIQUE: Multiple contiguous axial images were obtained of the head without the use of IV contrast. COMPARISON: CT head of 09/15/2013 and 02/01/2012, MRI brain of 09/15/2013 FINDINGS: No acute intracranial hemorrhage or extra-axial fluid collection. No midline shift or mass effect. Ventricles are normal in size and configuration. No midline shift or mass effect. Stable scattered areas of diminished attenuation within the subcortical and periventricular white matter compatible with chronic microvascular ischemic disease. Similar focus of chronic or infarct involving the left anterolateral basal ganglia. Calvarium is intact. Visualized paranasal sinuses and mastoid air cells are clear. IMPRESSION: 1. No acute intracranial hemorrhage, mass effect, or midline shift. 2. Stable moderate chronic microvascular ischemic disease. Dictation Site: [facility] Address City/State/Zipcode Phone Number AnygmaANNEMARIE * XR Chest single view frontal (12/22/2013 11:37 AM CDT) Specimen Impressions Performed At Impression: No active disease. [facility] Dictation Location: [facility] Narrative Performed At Patient: GUERDA VÁSQUEZ Phone#: med Rec#: [id number] Sex#:F # 1940 Cindy#:[id number] Location:[facility] [place]-06Accession#: [id number] Procedure Requested:[id number] XR CHEST SINGLE VIEW FRONTAL Reason for Exam:Altered Mental Status Exam Ordered: Exam Date/Time: Check-in Date/Time:9/5/30061522 Portable AP Chest Dec 22, 2013 11:38:13 AM INDICATION:Altered Mental Status COMPARISON STUDY: 02/01/2012 Life Support Devices: None Lungs/pleura: Clear. Normal vascularity. Negative for effusion or pneumothorax. Calcified granulomas in the right lower lung. Heart and Mediastinum: Stable and normal. Calcified mediastinal and hilar nodes are noted. Abdomen: Unremarkable Procedure Note Interface, Rad Results In - 12/22/2013 11:46 AM CDT Patient: PAMELA VÁSQUEZ Phone#: Med Rec#: [id number] Sex#: F # 1940 Cindy#: [id number] Location: [facility]- Procedure Requested: [id number] XR CHEST SINGLE VIEW FRONTAL Reason for Exam: Altered Mental Status Exam Ordered: 12/22/2013 1123 Exam Date/Time: 12/22/2013 1138 Check-in Date/Time: 12/22/2013 1138 Portable AP Chest Dec 22, 2013 11:38:13 AM INDICATION: Altered Mental Status COMPARISON STUDY: 02/01/2012 Life Support Devices: None Lungs/pleura: Clear. Normal vascularity. Negative for effusion or pneumothorax. Calcified granulomas in the right lower lung. Heart and Mediastinum: Stable and normal. Calcified mediastinal and hilar nodes are noted. Abdomen: Unremarkable Impression: No active disease. Dictation Location: [facility] Performing Organization Address City/State/Zipcode Phone Number [facility] * Comprehensive Metabolic Panel (12/22/2013 11:25 AM CDT) [facility] Signature Sodium 134 133 - 147 MEQ/L [facility] Potassium 4.8 3.5 - 5.3 MEQ/L [facility] Chloride 96 96 - 112 MEQ/L [facility] Carbon Dioxide 29 20 - 32 MEQ/L [facility] Anion Gap 10 5 - 17 [facility] Calcium 9.4 8.4 - 10.5 mg/dL [facility] Glucose 95 70 - 100 mg/dL [facility] Protein Total 6.9 6.0 - 8.2 g/dL [facility] Serum [facility] Albumin 4.2 3.5 - 5.0 g/dL [facility] Alkaline 75 42 - 140 IU/L [facility] Phosphatase [facility] Alanine 26 13 - 69 IU/L [facility] Aminotransferas [facility] e Aspartate 27 15 - 46 IU/L [facility] Aminotransferas [facility] e Bilirubin Total 0.5 0.2 - 1.3 mg/dL [facility] Blood Urea 21 7 - 26 mg/dL [facility] Nitrogen [facility] Creatinine 0.7 0.4 - 1.1 mg/dL [facility] eGFR Female AA 99 [facility] Comment: [facility] Chronic Kidney Disease less than 60 mL/min/1.73 sq.m Kidney failure less than 15 mL/min/1.73 sq.m eGFR Female 82 [facility] Non-AA Comment: [facility] Chronic Kidney Disease less than 60 mL/min/1.73 sq.m Kidney failure less than 15 mL/min/1.73 sq.m Specimen Blood - Blood Performing Organization Address City/State/Zipcode Phone Number [facility] [address] [place] [address] * CBC and Diff (manual diff if necessary) (12/22/2013 11:25 AM CDT) WBC 10.38 4.00 - 11.00 TH/uL [facility] RBC 3.38 (L) 4.00 - 5.00 MIL/uL [facility] Hemoglobin 9.8 (L) 12.0 - 15.0 g/dL [facility] Hematocrit 30 (L) 36 - 45 % [facility] MCV 90 80 - 99 fL [facility] MCH 29 27 - 34 pg [facility] MCHC 32 32 - 36 % [facility] RDW 15.1 (H) 9.0 - 14.5 % [facility] Platelet Count 355 140 - 400 TH/uL [facility] MPV 9.2 (L) 9.4 - 12.3 fL [facility] Nucleated RBCs 0 0 - 0 /100 [facility] % Neutrophils 67 45 - 78 % [facility] %Lymphocytes 27 15 - 47 % [facility] %Monocytes 5 0 - 12 % [facility] %Eosinophils 0 0 - 7 % [facility] %Basophils 0 0 - 2 % [facility] % Imm Grans 1 0 - 1 % [facility] # Granulocytes 6.98 (H) 1.70 - 6.80 TH/uL [facility] # Lymphocytes 2.83 1.00 - 3.30 TH/uL [facility] # Monocytes 0.52 0.20 - 0.90 TH/uL [facility] # Eosinophils 0.02 0.00 - 0.40 TH/uL [facility] # Basophils 0.03 0.00 - 0.10 TH/uL [facility] Specimen Blood - Blood Performing Organization Address City/[facility]/Zipcode Phone Number [facility] [address] [place] [address] * Electrocardiogram (ECG) (12/22/2013 11:19 AM CDT) Specimen Narrative Performed At TRACEMASTER Name PAMELA VÁSQUEZ Date of Birth1940 SexF [id number] Facility [facility] [place] [facility] Date 12/22/2013, 11:19:22 71 144 [phone] 54 [phone] 5 55 42 - NORMAL ECG - SINUS RHYTHM normal P axis, V-rate 50-99 FINAL REPORT Procedure Note Interface, External Ris In - 12/26/2013 1:13 PM CDT Name PAMELA VÁSQUEZ Date of 1940 Sex F Visit [id number] Facility [facility] [place] [facility] Date 12/22/2013, 11:19:22 71 144 [phone] 54 -49 5 55 42 - NORMAL ECG - SINUS RHYTHM normal P axis, V-rate 50-99 FINAL REPORT Performing Organization Address City/State/Zipcode Phone Number [facility] documented in this encounter Visit Diagnoses Diagnosis Confusion - Primary Unspecified psychosis documented in this encounter Administered Medications Action Date Dose Rate Site Medication Order MAR Action 12/22/2013 11:45 AM CDT 500 mL 1000 mL/hr sodium chloride 0.9% (NS) IV Bolus New Bag 500 mL, Intravenous, Administer over 30 Minutes, Once, Wed12/22/13 at 1127, For 1 dose documented in this encounter
--- OUTSIDE RECORDS SUMMARY | 2018-11-10 17:43 | XMS REPORT | Encounter Summary ---
Author Author [facility] Organization [facility] Address Unknown Phone Unavailable Care Team Providers Care [employer] Name Role Phone Ange Frazier MD PCP Encounter Details Care Team Description Date [place] [address] [place] [address] [phone] RIGHT TOTAL KNEE ARTHROPLASTY 11/07/2013 Surgery [facility] [id number] [place] [address] Social History Date Tobacco Use Types Packs/Day [...] Signs Reading Time Taken Comments Vital Sign 162/63 11/10/2013 7:36 AM CDT Blood Pressure 97 11/10/2013 7:36 AM CDT Pulse 37 C (98.6 F) 11/10/2013 7:36 AM CDT Temperature 18 11/10/2013 7:36 AM CDT Respiratory Rate 91% 11/10/2013 8:25 AM CDT Oxygen Saturation - - Inhaled Oxygen Concentration 65.8 kg (144 lb 15.9 oz) 11/08/2013 7:13 AM CDT Weight 160 cm (5' 2.99") 11/08/2013 7:13 AM CDT Height 25.69 11/08/2013 7:13 AM CDT Body Mass Index documented in this encounter Discharge Summaries * Roosevelt Pina RN C T TECH - 04/02/2014 1:01 PM [facility] Physician Discharge Summary Admit date: 11/07/2013 Discharge date and time: 11/10/2013 12:00 PM Admitting Physician: Jerri Mcdonnell DO Admission Diagnoses: RIGHT KNEE OA Discharge Diagnoses: RIGHT KNEE OA Problem List: Active Problems: Right knee pain Procedure: Procedure(s) (LRB): RIGHT TOTAL KNEE ARTHROPLASTY (Right) Consults: none Last Lab Results: CBC: No lab components to display INR: No lab components to display Electrolytes: No lab components to display Indication for Admission: Ms. Vásquez has had intermediate problems with known oste oarthritis of a major lower extremity weight bearing joint. Because of increasi ng problems with ambulation and routine activities of daily living, and lack of response to conservative treatments including ant-iinflamatory medications and i njections, the patient is now admitted for total joint replacement. Hospital Course: On the day of admission Ms. Vásquez was taken to surgery and un derwent joint replacement without complications. She made good progress with phy sical therapy with transfers and ambulation and was stable for discharge to [facility] facility/home. Discharge instructions discussed with her including woun d care, DVT prophylaxis, signs and symptoms for which the physician should be no tified and clinic follow up. Disposition: Discharge instructions discussed with patient including wound care, DVT prophylaxis, signs and symptoms for which physician should be notified, and clinic follow-up and Patient appropritae for discharge to Inpatient Rehab [facility] documented in this encounter Discharge Instructions * Discharge Instr - Lab* Elvira Rodrigues RN - 11/08/2013 9:58 AM CDT Follow up Appointment: Dr. Kecia Garcia As scheduled * Attachments The following attachments cannot be sent through Care Everywhere.* TRAMADOL HYDROCHLORIDE ORAL TABLET (YI) * TAPENTADOL ORAL TABLET (YI) * ASPIRIN ORAL TABLET (YI) documented in this encounter Medications at Time of Discharge Start Date End Date Medication Sig Dispensed Refills 02/23/2012 aspirin (ASPIRIN LOW take 1 tablet 1 0 DOSE) 81 MG EC tablet (81MG) by oral route every day 02/23/2012 calcium carbonate-vitamin 2 po daily 60 0 D3 (CALCIUM 500 WITH D) 500 mg(1,250mg) -400 unit Tab cholecalciferol, vitamin Take as 1 0 D3, (VITAMIN D3) 5,000 directed unit Tab 02/23/2012 glucosamine HCl-msm 2 po daily 60 [...] tablet (80MG) by oral route every day 11/09/2013 11/19/2013 traMADol (ULTRAM) 50 mg Take 1-2 30 tablet 0 tablet tablets (50-100 mg total) by mouth every 6 (six) hours as needed. 11/10/2013 12/19/2013 aspirin 325 MG tablet Take 1 tablet 0 (325 mg [...] (20MG) by tablet oral route every day 12/19/2013 loratadine (CLARITIN) 10 Take 10 mg by 0 mg tablet mouth daily. 02/23/2012 11/21/2014 loratadine-pseudoephedrin take 1 tablet 30 [...] (50MG) by tablet oral route every day 12/19/2013 omeprazole (PRILOSEC) 10 Take 10 mg by 0 MG capsule mouth daily. 02/23/2012 11/21/2014 pravastatin (PRAVACHOL) take 1 tablet 30 0 40 MG tablet (40MG) by oral route every day 11/10/2013 12/19/2013 tapentadol (NUCYNTA) 75 Take 1 tablet 0 mg tablet (75 mg total) by mouth every 4 (four) hours as needed for moderate pain (4-6). documented as of this encounter Progress Notes * Gilma Hansen LSW - 11/10/2013 1:52 PM CDT Patient was accepted at [facility], they transported her at noon today[facility] a skilled [facility]. * Adwoa Butler OT - 11/10/2013 11:46 AM CDT 11/10/13 1141 OT Initial Visit OT Received On 11/10/13 Total Treatment Time (min) Start Time 1100 Stop Time 1115 Time Calculation (min) 15 min Precautions Weight Bearing Status Weight Bearing As Tolerated RLE Back Precautions No ADL Grooming Modified Independent Grooming Type of Task Washing, Rinsing and/or Drying the hand Lower Body Dressing Modified Independent Lower Body Dressing, Type of Clothing Right sock;Left sock Lower Body Dressing Type of Assistance (able to don and doff socks, sba with [place] hose) Toileting Modified Independent Toilet Transfer Modified Independent Toilet Transfer Equipment Grab bar;Roller walker Toilet Transfer Method Ambulating Walk-In Shower Transfer Supervision/Setup Walk-In Shower Equipment Grab bars;Shower seat with back Walk-In Shower Transfer Method Ambulating Cognition Overall Cognitive Status WFL Arousal/Alertness Appropriate responses to stimuli Attention Span Appears intact Memory Appears intact Orientation Level Oriented to person;Oriented to place;Oriented to time;Oriented to situation Following Commands Follows all commands and directions without difficulty Safety Judgment Good awareness of safety precautions [place] Fully aware of deficits Problem Solving Able to problem solve independently Bed Mobility Supine to Sit Modified independent Sit to Supine Modified independent Transfers Sit to Stand Transfers Modified independent Stand to Sit Transfers Modified independent Shower/Tub Transfer Goals Shower/Tub Transfer LTG Goal Status Goal continues LB Dressing Goals LB Dressing LTG Goal Status Goal achieved Toileting Goals Toileting LTG Goal Status Goal achieved Toilet Transfer Goals Toilet Transfer LTG Goal Status Goal achieved Bed Mobility Goals Bed Mobility LTG Goal Status Goal achieved Plan Pt/Family involved in Plan of Care yes Treatment Interventions ADL retraining;Patient/family training;Functional transf er training OT Frequency 3-5x/wk Recommendation Plan Continued OT * Roosevelt Pina RN C T TECH - 11/10/2013 7:26 AM CDT No complaints of chest pain or shortness of breath. Extremity right lower Dressing dry, clean and intact Vascular normal and pulses present Muscular N/V/M intact Labs are stable. Minimal pain relief with meds. Will try nucynta Pt to be placed for in patient rehab. * Jenniefr Heart, PLATER SUPERVISOR - 11/09/2013 5:37 PM CDT Respiratory Care Services Initial Consultation Note Name: Pamela Vásquez CPI: [id number] Pamela Vásquez was evaluated per RATE Consultation on November 09, 2013 at 0800 for respiratory therapy intervention needs. History Assessment The patient is hospitalized for Patient Active Problem List Diagnosis SNOMED CT(R) Right knee pain KNEE PAIN and has no co-existing disease process of History Substance Use Topics Smoking status: Never Smoker Smokeless tobacco: Not on file Alcohol Use: Yes Comment: 1 drink a week Current Facility-Administered Medications Medication Dose Route Frequency Provider Last Rate Last Dose acetaminophen (TYLENOL) tablet 325-650 mg 325-650 mg Oral Q6H PRN Jerri arciniega DO 650 mg at 11/09/13 1453 aluminum-magnesium hydroxide-simethicone (MAALOX PLUS) 400-400-40 mg/5 mL kiran spension 15 mL 15 mL Oral Q4H PRN oRosevelt Pina RN C T TECH 15 mL at 11/08/13 1002 docusate sodium (COLACE) capsule 100 mg 100 mg Oral BID PRN Roosevelt hunt RN C T TECH 100 mg at 11/09/13 0816 enoxaparin (LOVENOX) syringe 40 mg 40 mg Subcutaneous Daily Roosevelt hunt RN C T TECH 40 mg at 11/09/13 0631 fentaNYL (SUBLIMAZE) 50 mcg/mL injection 12.5-25 mcg 12.5-25 mcg Intravenou s Q2H PRN Jerri Mcdonnell DO 12.5 mcg at 11/08/13 0820 ferrous sulfate tablet 325 mg 325 mg Oral BID Roosevelt Pina RN APRN 3 25 mg at 11/08/132000 folic acid (FOLVITE) tablet 1 mg 1 mg Oral Daily Roosevelt Pina RN C T TECH HYDROcodone-acetaminophen (NORCO) 7.5-325 mg per tablet 1-2 tablet 1-2 tabl et Oral Q4H PRN Roosevelt Pina RN APRN lactated ringers infusion 100 mL/hr Intravenous Continuous Roosevelt Pina RN APRN 100 mL/hr at 11/08/13 0220 100 mL/hr at 11/08/13 0220 lactated ringers infusion 50 mL/hr Intravenous Continuous Juan José Marsh MD levothyroxine (SYNTHROID, LEVOTHROID) tablet 100 mcg 100 mcg Oral Daily Suleiman Pina RN APRN 100 mcg at 11/09/13 0815 lisinopril (PRINIVIL,ZESTRIL) tablet 10 mg 10 mg Oral Daily Roosevelt hunt RN C T TECH 10 mg at 11/09/13 1721 loratadine (CLARITIN) tablet 10 mg 10 mg Oral Daily JERMAINE Boo RN 10 mg at 11/09/13 0815 metaxalone (SKELAXIN) tablet 800 mg 800 mg Oral Q8H PRN Aurora Boo C T TECH 800 mg at 11/09/13 0817 metoclopramide (REGLAN) injection 5-10 mg 5-10 mg Intravenous Q6H PRN Cisco Pina RN APRN 10 mg at 11/09/13 0654 Or metoclopramide (REGLAN) injection 5-10 mg 5-10 mg Intramuscular Q6H PRN Suleiman Pina RN APRN metoclopramide (REGLAN) tablet 10 mg 10 mg Oral BID Jerri Mcdonnell DO metoprolol (TOPROL-XL) 24 hr tablet 50 mg 50 mg Oral Daily Roosevelt Pina RN C T TECH 50 mg at 11/09/13 0815 miconazole nitrate (ALOE VESTA) 2 % ointment Topical TID PRN Roosevelt nichols RN APRN ondansetron (ZOFRAN) 4 mg/2 mL injection 4 mg 4 mg Intravenous Q6H PRN Lino Pina RN C T TECH 4 mg at 11/08/13 0807 pantoprazole (PROTONIX) EC tablet 40 mg 40 mg Oral Daily Jerri Mcdonnell DO 40 mg at 11/09/13 0815 polyethylene glycol (GLYCOLAX) packet 17 g 17 g Oral Daily PRN Roosevelt Santos, RN C T TECH pravastatin (PRAVACHOL) tablet 80 mg 80 mg Oral Nightly Jerri Mcdonnell, DO 80 mg at 11/07/132258 sodium chloride 0.9% infusion 100 mL/hr Intravenous Continuous Jerri Frey n, DO 100 mL/hr at 11/09/13 0021 traMADol (ULTRAM) tablet 50-100 mg 50-100 mg Oral Q6H PRN Jerri Mcdonnell DO 50 mg at 11/09/13 1721 zolpidem (AMBIEN) tablet 5 mg 5 mg Oral Nightly PRN Roosevelt Pina, RN AP RN Physical Assessment The patient's has the following signs/symptoms evaluated to determine criteria f or service: SaO2 89% on 0 LPM, HR 95 bpm, Temp Patient is spontaneously breathing Breath Sounds Clear and diminshed Respiratory Pattern Cough Sputum Color Amount Other Protocol The patient meets criteria for Respiratory Care Service based upon the assessmen t above. Treatment Plan The treatment plan identified for the patient is Oxygen Therapy Discharge Considerations Not Applicable * Kay Kruger, PT - 11/09/2013 2:31 PM CDT 11/09/13 1300 Visit Info Patient/Family Reports Pt. reports a lot of pain. Pt. states unable to complete exercise program. Her knee is too painful, and swollen. Time Calculation Total Treatment time (min) 70 min Precautions Weight Bearing Status Weight Bearing As Tolerated RLE Fall Risk Yes Cognition Overall Cognitive Status WFL Arousal/Alertness Appropriate responses to stimuli Attention Span Appears intact Orientation Level Oriented to person;Oriented to place;Oriented to time;Oriented to situation Following Commands Follows all commands and directions without difficulty Safety Judgment Good awareness of safety precautions Insight Fully aware of deficits Problem Solving Assistance required to generate solutions Communication Communication [place] Transfers Sit to Stand Transfers Stand by assistance Stand to Sit Transfers Stand by assistance Gait Gait Distance (Feet) 100x 2 Assistive Device Rolling walker Gait Level Surface Assistance Minimal Pattern L Decreased stance time;R Decreased terminal knee extension;Decreased he el strike Balance Standing Static 2 Standing Dynamic 2 Activity Tolerance Activity Tolerance poor;+ AROM RLE (degrees) R Knee Flexion 82 R Knee Extension -10 LE Ther Ex TKR Protocol 26 - 30 reps;Right;Verbal cues;Tactile cues (No standing exercises, skips some reps due to pain) Cryotherapy Location/Area R knee Assessment Learning Barriers None Response to Treatment Good Problem List Activity tolerance;Balance;Gait;ROM;Stairs;Safety;Strength;Transfer s Transfer Goals Transfer STG Goal Status Achieved Transfer STG Supervision Transfer LTG Goal Status Goal continues Transfers LTG Modified independent Gait Distance/Assist Goals Gait Distance STG (ft) 500 ft Gait Distance STG Goal Status Goal continues Gait Assist STG Standby assist Gait STG - Assistive Device Rolling walker Stair/Curb Goals Stair/Curb LTG Goal Status Goal continues Stair/Curb LTG >12 steps;Modified independent Standing Balance Goals Standing Balance STG 3;(+);static Standing Balance Goal Status LTG Goal continues ROM STG Goals Area 1/Degrees goal continues Area 2/Degrees goal continues Activity Tolerance Goals Activity Tolerance Goal Status LTG Goal continues Activity Tolerance LTG Good Other Goals Other Goal 1 goal continues Plan Pt/Family Goal back to normal Pt/Family involved in Plan of Care Yes Treatment/Interventions Functional transfer training;LE strengthening/ROM;Patien t/family training;Gait training;Balance PT Frequency Twice a day Recommendation Plan Continued PT;Rehab consult;SNF Equipment Recommended Walker * Gi Lindsay, RN - 11/09/2013 2:30 PM CDT Multidisciplinary Discharge Rounds Disciplines Present: social worker clinical, embedded case manager and nursing administration Identified Needs - Consults: social worker clinical Identified Needs - Discharge Barriers: other NONE Identified Needs - Education: no Identified Needs - DME: no POSSIBLE D/C WITH [facility] * Gilma Hansen LSCSW - 11/09/2013 1:50 PM CDT I have called [facility], [facility] and [place] and faxed info. To th em. [facility] does not have a bed available. The others are still reviewing . * Gilma Hansen LSCSW - 11/09/2013 12:37 PM CDT Received referral for discharge planning. Patient is interested in [facility] and [facility]. I will call and fax info. To them. * Adwoa Butler, OT - 11/09/2013 11:56 AM CDT 11/09/13 1148 OT Initial Visit OT Received On 11/09/13 Total Treatment Time (min) Start Time 1055 Stop Time 1120 Time Calculation (min) 25 min Precautions Weight Bearing Status Weight Bearing As Tolerated RLE Fall Risk Yes ADL Grooming Supervision/Setup Grooming Type of Task Washing, Rinsing and/or Drying the hand Grooming Type of Assistance (sba) Lower Body Dressing Minimal Assistance Lower Body Dressing, Type of Clothing Left sock;Right sock ([place] hose) Lower Body Dressing Type of Assistance (assist with doffing R [place] hose over heel completely) Toileting Modified Independent Toilet Transfer Modified Independent Toilet Transfer Equipment Grab bar;Roller walker Toilet Transfer Method Ambulating Walk-In Shower Transfer Minimal Assistance Walk-In Shower Equipment Grab bars;Shower seat with back Walk-In Shower Transfer Method Ambulating Cognition Overall Cognitive Status WFL Arousal/Alertness Delayed responses to stimuli Attention Span Attends with cues to redirect Memory Unable to assess Orientation Level Oriented to person;Oriented to place;Oriented to time;Oriented to situation Following Commands Follows one step commands with increased time Communication Communication [place] Transfers Sit to Stand Transfers Modified independent Stand to Sit Transfers Modified independent Shower/Tub Transfer Goals Shower/Tub Transfer LTG Goal Status New goal Shower/Tub Transfer LTG Modified Independent LB Dressing Goals LB Dressing LTG Goal Status Goal achieved LB Dressing LTG Modified Independent Toilet Transfer Goals Toilet Transfer LTG Goal Status Goal achieved Toilet Transfer LTG Modified Independent Bed Mobility Goals Bed Mobility LTG Goal Status New goal Bed Mobility LTG Modified Independent Plan Pt/Family involved in Plan of Care yes Treatment Interventions ADL retraining;Patient/family training;Functional transf er training OT Frequency 3-5x/wk * Kay Kruger, PT - 11/09/2013 10:38 AM CDT 11/09/13 0900 Visit Info Patient/Family Reports Pt. reluctant to come to therapy as she is in pain and mistry s llow energy, but agreeable after nursing encouragement,. Time Calculation Total Treatment time (min) 70 min (group and gait training) Precautions Weight Bearing Status Weight Bearing As Tolerated RLE Fall Risk Yes Pain Assessment Pain Score 2 Pain Type Surgical pain Pain Location Knee Pain Orientation Left Pain Descriptors Aching;Discomfort Pain Frequency Intermittent Patient's Stated Pain Goal 4 Pain Intervention(s) Cold applied;Repositioned Response to Intervention Comfortable Transfers Sit to Stand Transfers Min assist Stand to Sit Transfers Min assist Gait Gait Distance (Feet) 50, 80 Assistive Device Rolling walker Gait Level Surface Assistance Minimal (IV pole, O2 tank, encouragement, assist with walker) Pattern Shuffle;Antalgic Balance Standing Static 2 Standing Dynamic 2 Activity Tolerance Activity Tolerance poor;+ AROM RLE (degrees) R Knee Flexion 78 R Knee Extension 0 LE Ther Ex TKR Protocol Right;11 - 15 reps;Verbal cues;Tactile cues Cryotherapy Location/Area R knee Assessment Learning Barriers None Response to Treatment Good (Pt. reported pain with exercise, but able to complete ex) Transfer Goals Transfer STG Goal Status Goal continues Gait Distance/Assist Goals Gait Distance STG (ft) 500 ft Gait Distance STG Goal Status Goal continues Gait Assist STG Standby assist Gait STG - Assistive Device Rolling walker Stair/Curb Goals Stair/Curb LTG Goal Status Goal continues Stair/Curb LTG >12 steps;Modified independent Standing Balance Goals Standing Balance STG 3;(+);static Standing Balance Goal Status LTG Goal continues ROM STG Goals Area 1/Degrees goal continues Area 2/Degrees goal continues Activity Tolerance Goals Activity Tolerance Goal Status LTG Goal continues Activity Tolerance LTG Good Other Goals Other Goal 1 goal continues Plan Pt/Family Goal back to normal Pt/Family involved in Plan of Care Yes Treatment/Interventions Functional transfer training;LE strengthening/ROM;Patien t/family training;Gait training;Balance PT Frequency Twice a day Recommendation Plan Continued PT;Rehab consult;SNF Equipment Recommended Walker * Jerri Mcdonnell DO - 11/09/2013 7:07 AM CDT No complaints of chest pain or shortness of breath. Extremity right lower Dressing dry and clean and intact Vascular normal Muscular N/V/M intact Labs are not within normal range but stable Pain some relief * Alexa Narayan, OT - 11/08/2013 4:13 PM CDT 11/08/13 1100 OT Initial Visit Initial OT Visit On 11/08/13 Assessed for Rehab Yes Referral Reason ADLs Patient/Family Reports pt states she is nauseous, dizzy, and in pain OT Received On 11/08/13 Visit # 1 Total Treatment Time (min) Time Calculation (min) 30 min Precautions Weight Bearing Status Weight Bearing As Tolerated RLE Home Living Type of Home House Home Layout Performs ADLs on one level Lives With Alone ADL Lower Body Dressing Minimal Assistance Lower Body Dressing, Type of Clothing Pants Lower Body Dressing Type of Assistance Steadying assistance (did not practice socks, TEDs, pt reports nausea) Toileting Supervision/Setup Cognition Overall Cognitive Status WFL Transfers Sit to Stand Transfers Stand by assistance Stand to Sit Transfers Stand by assistance Timeframe Timeframe LTG 3 Shower/Tub Transfer Goals Shower/Tub Transfer LTG Goal Status New goal Shower/Tub Transfer LTG Modified Independent LB Dressing Goals LB Dressing LTG Goal Status New goal LB Dressing LTG Modified Independent Toileting Goals Toileting LTG Goal Status New goal Toileting LTG Modified Independent Toilet Transfer Goals Toilet Transfer LTG Goal Status New goal Toilet Transfer LTG Modified Independent Other OT Goals Patient/Caregiver Goal pt would like to go to rehab after D/C, lives alone Plan Pt/Family involved in Plan of Care yes Treatment Interventions ADL retraining;Patient/family training;Functional transf er training Recommendation Plan Continued OT * Max Yoo, PT - 11/08/2013 3:22 PM CDT 11/08/13 1300 Visit Info Initial PT Visit On 11/08/13 Assessed for Rehab Yes Referral Reason R TKA Patient/Family Reports " This hurts me to bend my knee. It's really pulling on m y knee to straighten it." PT Received On 11/08/13 Visit # 2 Time Calculation Total Treatment time (min) 90 min (group and gait ) Precautions Weight Bearing Status Weight Bearing As Tolerated RLE Fall Risk Yes Home Living Type of Home House Home Layout Two level;Stairs to enter without rails Lives With Alone Home Assistive Device None Prior Function Level of [place] Independent with functional transfers;Independent with amb ulation Pain Assessment Pain Score 4 Pain Type Surgical pain Pain Location Knee Pain Orientation Left Pain Descriptors Aching;Discomfort Pain Frequency Intermittent Transfers Assistive Device Rolling walker Sit to Stand Transfers Min assist Stand to Sit Transfers Min assist Gait Gait Distance (Feet) 50ft x2 Assistive Device Rolling walker Gait Level Surface Assistance Minimal Pattern Shuffle;Antalgic PROM RLE (degrees) R Knee Extension 0 LE Ther Ex TKR Protocol Right;11 - 15 reps;Verbal cues;Tactile cues Cryotherapy Location/Area R knee (s/p therapy ) Timeframe Timeframe STG 3 days Timeframe LTG 7 days Transfer Goals Transfer STG Goal Status Goal continues Transfer LTG Goal Status Goal continues Gait Distance/Assist Goals Gait Distance STG Goal Status Goal continues Gait Distance LTG Goal Status Goal continues Plan Pt/Family Goal back to normal Pt/Family involved in Plan of Care Yes Treatment/Interventions Functional transfer training;LE strengthening/ROM;Patien t/family training;Gait training;Balance PT Frequency Twice a day Recommendation Plan Continued PT;Rehab consult;SNF Equipment Recommended Walker * Kay Kruger, PT - 11/08/2013 11:15 AM CDT 11/08/13 0900 Visit Info Initial PT Visit On 11/08/13 Assessed for Rehab Yes Referral Reason R TKA Patient/Family Reports Pt. is very sleepy, foggy brain, nausea. Pt. reports she lives alone. Time Calculation Total Treatment time (min) 45 min Precautions Weight Bearing Status Weight Bearing As Tolerated RLE Fall Risk Yes Home Living Type of Home House Home Layout Two level;Stairs to enter without rails (3 steps in no HR, flight to bsmt 1 HR) Lives With Alone Home Assistive Device None Prior Function Level of [place] Independent with functional transfers;Independent with amb ulation Pain Assessment Pain Type Surgical pain Pain Location Knee Pain Orientation Left Pain Descriptors Aching;Discomfort Patient's Stated Pain Goal 4 Response to Intervention Sleeping Cognition Arousal/Alertness Delayed responses to stimuli (falling asleep during exercises) Attention Span Difficulty attending to directions Memory Unable to assess Orientation Level Oriented to person;Oriented to place;Oriented to time;Oriented to situation Following Commands Follows one step commands with increased time Safety Judgment Good awareness of safety precautions Comments Pt. reports being foggy. all joint program procedures will need to be repeated. Nurse Aid informed, and she will assist with ordering lunch, using IS , ankle pumps, etc. Communication Communication [place] (slurred speach) Communication Comment Repeated directions/joint program procedures many times. Transfers Sit to Stand Transfers Min assist Stand to Sit Transfers Min assist LE Ther Ex TKR Protocol Right;11 - 15 reps;Verbal cues;Tactile cues Cryotherapy Location/Area R knee * Jreri Mcdonnell DO - 11/08/2013 7:19 AM CDT No complaints of chest pain or shortness of breath. Extremity right lower Dressing dry and clean and intact Vascular normal Muscular N/V/M intact Labs are not within normal range but stable Pain some relief documented in this encounter H&P Notes * Drew Lamb - 11/07/2013 1:37 PM CDT P M CDT documented in this encounter Nursing Notes * Milli Sparrow RN - 10/27/2013 12:27 PM CDT Labs drawn at [facility] 10-27-13 * Milli Sparrow RN - 10/27/2013 10:06 AM CDT Pt. Requests to not lie flat at any time because it causes severe vertigo. Dr. Mcdonnell's office notified of pts. desire to have a cortisone injection to her left knee the DOS. documented in this encounter Miscellaneous Notes * Plan of Care - Alexa Dale - 11/09/2013 9:42 AM CDT Problem: Pain Goal: Patients pain/discomfort is manageable Assess and monitor patients pain using appropriate pain scale. Collaborate [facility] team and initiate plan and interventions as ordered. Re-ass ess patients pain level 30 - 60 minutes after pain management intervention. Outcome: Progressing Pt is taking tramadol and skelaxin for pain management Problem: Safety Goal: Patient [...] per policy, and non-skid footwear provided. Outcome: Progressing Pt is up with assistance with front wheeled walker Problem: Acute Pain Goal: Sets realistic pain goal Outcome: Progressing Pt pain goal is 3 out of 10 Problem: Potential for Infection Goal: Incisions clean/dry without erythema, edges well approximated Outcome: Progressing No redness, warmth or drainage present on surgical site instructed pt on cares * Plan of Care - Alexa Dale - 11/08/2013 10:36 AM CDT Problem: Pain Goal: Patients pain/discomfort is manageable Assess and monitor patients pain using appropriate pain scale. [facility]ate [facility] interdisciplinary team and initiate plan and interventions as ordered. Re-ass ess patients pain level 30 - 60 minutes after pain management intervention. Outcome: Progressing Pt is taking tramadol and fent for pain Problem: Safety Goal: Patient will be injury [...] per policy, and non-skid footwear provided. Outcome: Progressing Pt is up with assist with front wheeled walker Problem: Discharge Barriers Goal: Patients discharge needs are met Collaborate with interdisciplinary team and initiate plans and interventions as needed. Outcome: Progressing Pt is wanting rehab for discharge Problem: Acute Pain Goal: Sets realistic pain goal Outcome: Progressing Pt pain goal is 3 out of 10 Problem: Potential for Infection Goal: Incisions clean/dry without erythema, edges well approximated Outcome: Progressing No s/s of infection no redness, no warmth no drainage Goal: Verbalizes understanding of dressing changes Outcome: Progressing Told pt to watch no s/s of infection and to call if these occur * Operative Note - Jerri Mcdonnell DO - 11/07/2013 10:36 AM CDT Name: PAMELA VÁSQUEZ Date of : 1940 Attending Physician: Jerri Mcdonnell DO Date of Procedure: 11/05/2013 PREOPERATIVE DIAGNOSES: 1. Right knee osteoarthritis. 2. Right knee pain. POSTOPERATIVE DIAGNOSES: 1. Right knee osteoarthritis. 2. Right knee pain. PROCEDURE: Right total knee arthroplasty. COMPLICATIONS: None. CONVEYOR LOADER: Roosevelt Pina nurse practitioner, as a skilled first assista nt was necessary due to minimally invasive total knee arthroplasty. ESTIMATED BLOOD LOSS: 50 mL. DESCRIPTION OF PROCEDURE: After informed consent was obtained, Ms. Vásquez was b rought to the operating room at [facility]. Once satisfactory anesthesia was obtained, the patient's right lower extremity was prepped and mica ped in sterile manner, after which an incision was made over the anterior aspect of the knee. Dissection was carried down through subcutaneous tissue. The ext ensor mechanism was identified and sharply incised. Retractors were then placed around the distal femur. Drill holes made in the distal femur. The distal fem ur was then resected 4 degrees to enter medullary access. Retractors were then placed around the proximal tibia utilizing extramedullary tibial guide. The pro ximal tibia was also resected. Attention was then drawn to the femur. The femu r was then prepared to receive a size 4 narrow femoral component. A lamina spre ader was utilized to remove remaining medial and lateral meniscus as well as pos terior osteophytes. The patella was then everted, resected utilizing modified _ ___ technique restoring thickness of patella back to 22 mm utilizing a P2 patell ar button. Trial components were then placed. The knee was moved through a ful l range of motion with satisfactory alignment and full range of motion being obt ained. Satisfactory ligamentous tension was in both flexion and extension. All trial components were removed, after which the knee was copiously irrigated and injected for postoperative pain control. A ____ tibial plateau and P2 patellar button were inserted in the knee joint utilizing Magnolia-G cement. All excess c ement was removed. Once the cement had completely hardened, a 10 Ultracongruent spacer was inserted into the knee joint. The knee was once again moved through a full range of motion with satisfactory ligamentous tension on both flexion and extension. Tourniquet was deflated. The knee was then closed in high flexion utilizing #1 Vicryl suture. Subcutaneous tissues were reapproximated using 2-0 Vicryl suture, after which 3-0 Monocryl suture was used to reapproximate the sk in. Dermabond was utilized to seal the wound. Overall, patient tolerated the p rocedure well without complication or difficulty. Jerri Mcdonnell DO [id number] CC: documented in this encounter Plan of Treatment Not on filedocumented as of this encounter Procedures Comments Procedure Name Priority Date/Time Associated Diagnosis LAB SUMMARY 11/17/2013 10:59 AM CDT SODIUM Routine 11/09/2013 9:29 AM CDT COMPLETE BLOOD COUNT Routine 11/09/2013 6:25 AM CDT ELECTROLYTES Routine 11/08/2013 4:30 AM CDT COMPLETE BLOOD COUNT Routine 11/08/2013 4:30 AM CDT XR KNEE 1 OR 2 VIEWS Routine 11/07/2013 RIGHT 11:18 AM CDT ARTHROPLASTY, KNEE, TOTAL 11/07/2013 RIGHT KNEE OA 8:45 AM CDT Special Needs Aseculap, Extra scrub [place] [facility] Routine 11/07/2013 12:00 AM CDT APTT Routine 10/27/2013 3:37 PM CDT URINE NITRITE Routine 10/27/2013 3:37 PM CDT URINALYSIS REFLEX Routine 10/27/2013 3:37 PM CDT URINALYSIS (INCLUDES Routine 10/27/2013 MICROSCOPIC REVIEW, IF 3:37 PM CDT INDICATED) PROTHROMBIN TIME/INR Routine 10/27/2013 3:37 PM CDT ERYTHROCYTE SEDIMENTATION Routine 10/27/2013 RATE 3:37 PM CDT C-REACTIVE PROTEIN Routine 10/27/2013 3:37 PM CDT COMPLETE BLOOD COUNT Routine 10/27/2013 3:37 PM CDT BASIC METABOLIC PANEL Routine 10/27/2013 3:37 PM CDT documented in this encounter Results * LAB SUMMARY (11/17/2013 10:59 AM CDT) Narrative Performed At Ordered by an unspecified provider. * Sodium (11/09/2013 9:29 AM CDT) Sodium 131 (L) 133 - 147 MEQ/L [facility] Specimen Blood Performing Organization Address City/State/Zipcode Phone Number [facility] [address] [place] [address] * Complete Blood Count (11/09/2013 6:25 AM CDT) Only the most recent of 3 results within the time period is included. WBC 9.83 4.00 - 11.00 TH/uL [facility] RBC 2.78 (L) 4.00 - 5.00 MIL/uL [facility] Hemoglobin 8.3 (L) 12.0 - 15.0 g/dL [facility] Hematocrit 25 (L) 36 - 45 % [facility] MCV 90 80 - 99 fL [facility] MCH 30 27 - 34 pg [facility] MCHC 33 32 - 36 % [facility] RDW 12.6 9.0 - 14.5 % [facility] Platelet Count 187 140 - 400 TH/uL [facility] MPV 10.4 9.4 - 12.3 fL [facility] Nucleated RBCs 0 0 - 0 /100 [facility] Specimen Blood Performing Organization Address [facility] [address] [facility] Phone Number [facility] [address] [place] [address] * Electrolytes (11/08/2013 4:30 AM CDT) Sodium 126 (L) 133 - 147 MEQ/L [facility] Potassium 4.7 3.5 - 5.3 MEQ/L [facility] Chloride 91 (L) 96 - 112 MEQ/L [facility] Carbon Dioxide 29 20 - 32 MEQ/L [facility] Anion Gap 5 5 - 17 [facility] Specimen Blood Performing Organization Address City/[facility] [address]/[facility] Phone Number [facility] [address] [place] [address] * XR Knee- right AP and LAT (11/07/2013 11:18 AM CDT) Specimen Impressions Performed At Impression: Postoperative changes right total knee arthroplasty. XIMENA Narrative Performed At Patient: GUERDA VÁSQUEZ BOZENAJAELANNEMARIE Phone#: med Rec#: [id number] Sex#:F # [id number] Cindy#:[id number] Location:[facility] ORS-03Accession#: [id number] Procedure Requested:[id number] XR KNEE 1 OR 2 VIEWS RIGHT Reason for Exam:Post-op Eval Exam Ordered: Exam Date/Time: Check-in Date/Time: Dictation Location: [facility] DATE:Nov 07, 2013 11:18:42 AM EXAM:XR KNEE 1 OR 2 VIEWS RIGHT INDICATION:Post-op Eval No comparison FINDINGS:Post-op changes of right total knee arthroplasty. Components appear well seated. Patellar resurfacing. Procedure Note Interface, Rad Results In - 11/07/2013 11:52 AM CDT Patient: PAMELA VÁSQUEZ Phone#: [facility] Rec#: [id number] Sex#: F # [id number] Cindy#: [id number] Location: [place] [address] Procedure Requested: [id number] XR KNEE 1 OR 2 VIEWS RIGHT Reason for Exam: Post-op Eval Exam Ordered: 11/07/2013 1053 Exam Date/Time: 11/07/2013 1118 Check-in Date/Time: 11/07/2013 1118 Dictation Location: [facility] DATE: Nov 07, 2013 11:18:42 AM EXAM: XR KNEE 1 OR 2 VIEWS RIGHT INDICATION: Post-op Eval No comparison FINDINGS: Post-op changes of right total knee arthroplasty. Components appear well seated. Patellar resurfacing. Impression: Postoperative changes right total knee arthroplasty. Performing Organization Address City/State/Zipcode Phone Number [facility] * Pathology (11/07/2013 12:00 AM CDT) Specimen Narrative Performed At PATIENT: PAMELA VÁSQUEZ HLAB SEX / : F 1940 (Age: 72) VISIT: [id number] SUBMITTING PHYSICIAN:JERRI MCDONNELL M.D. CLIENT:[facility] COLLECTED: 11/07/2013 REPORTED:11/09/2013 SURGICAL PATHOLOGY REPORT COPATH RECEIVED:11/08/2013 SPECIMEN: Right knee bone and tissue FINAL PATHOLOGIC DIAGNOSIS: Specimen designated "right knee bone and tissue" - Degenerative joint disease. Signed Electronically by:Jazmine Jones M.D.11/09/2013 CLINICAL DATA: Right knee OA. GROSS DESCRIPTION: Received in formalin in a properly labeled container designated "right knee bone and tissue" is a 7.1 x 5.4 x 2.2 cm aggregate of wong to yellow-wong bone with smooth resection margins.The articular surfaces have a smooth to roughened and pitted appearance with a 3.3 x 1.4 cm area of eroded cartilage and eburnation identified.A minimal amount of osteophyte formation is also present at the periphery.Upon sectioning, the parenchyma underlying the area of eroded cartilage and eburnation is consolidated with the remainder of the cut surfaces having a yellow-wong trabeculated appearance free of discrete masses.Sections of the specimen are submitted in one cassette following decalcification.Residual. DA/kh Gross performed at [facility] Gross Room, [address] [place] [address]. MICROSCOPIC DESCRIPTION: Microscopic examination performed. [place]: [facility], [address] [place] [address] Performing Laboratory Location: [facility], Carson Bautista M.D., Clinical Associate, [address] [place] [address] Technical processing at: [facility] Jt Larson M.D., Clinical Associate [address] [place] [address] END OF REPORT Performing Organization Address [facility] [address]/Zipcode Phone Number [facility] [address] [place] [address] [address] [place] [address] * Urine Nitrite (10/27/2013 3:37 PM CDT) Nitrite Urine Negative Negative [facility] Specimen Urine Performing Organization Address [facility] [address]/Zipcode Phone Number [facility] [address] [place] [address] * Urinalysis (10/27/2013 3:37 PM CDT) Appearance, Yellow [facility] Glucose Urine Negative Negative mg/dL [facility] Bilirubin Urine Negative Negative [facility] Ketones Urine Negative Negative mg/dL [facility] Specific 1.010 1.001 - 1.030 [facility] [place]A [facility] Hemoglobin Negative Negative [facility] PH Urine 6.0 5.0 - 8.0 [facility] Protein Urine Negative Negative mg/dL [facility] Qual [facility] Urobilinogen Negative Negative EU/dL [facility] Leukocyte Negative Negative [facility] Esterase [facility] Specimen Urine Performing Organization Address [facility] [address]/[facility] Phone Number [facility] [id number] [place] [address] * C-Reactive Protein (10/27/2013 3:37 PM CDT) Pathologist [facility] C Reactive 6.4Comment: Infection or 0.0 - 10.0 mg/L [facility] Protein Inflammation >10.0 mg/L [facility] Specimen Blood Performing Organization Address [facility] [address]/[facility] Phone Number [facility] [address] [address] LABORATORIES * Erythrocyte Sedimentation Rate (10/27/2013 3:37 PM CDT) Pathologist [facility] Sed Rate 7 0 - 17 mm/h [facility] Specimen Blood Performing Organization Address [facility] [address]/[facility] Phone Number [facility] [phone] [place] [address] * APTT (10/27/2013 3:37 PM CDT) Pathologist [facility] APTT 28 22 - 34 sec [facility] Specimen Blood Performing Organization Address [facility] Phone Number [facility] [address] [address] * Prothrombin Time/INR (10/27/2013 3:37 PM CDT) Pathologist [facility] Protime 13.3 11.7 - 14.3 sec [facility] INR 1.0 0.9 - 1.1 [facility] Specimen Blood Performing Organization Address [facility] Phone Number [facility] [phone] [place] [address] * Urinalysis Reflex (10/27/2013 3:37 PM CDT) UA Reflex Complete [facility] Specimen Urine Performing Organization Address [facility] Phone Number [facility] [id number] [place] [address] * Basic Metabolic Panel (10/27/2013 3:37 PM CDT) Sodium 135 133 - 147 MEQ/L [facility] Potassium 4.6 3.5 - 5.3 MEQ/L [facility] Chloride 93 (L) 96 - 112 MEQ/L [facility] Carbon Dioxide 30 20 - 32 MEQ/L [facility] Anion Gap 12 5 - 17 [facility] Calcium 9.4 8.4 - 10.5 mg/dL [facility] Glucose 106 (H) 70 - 100 mg/dL [facility] Blood Urea 16 7 - 26 mg/dL [facility] Nitrogen [facility] Creatinine 0.7 0.4 - 1.1 mg/dL [facility] eGFR Female AA 99 [facility] Comment: [facility] Chronic Kidney Disease less than 60 mL/min/1.73 sq.m Kidney failure less than 15 mL/min/1.73 sq.m eGFR Female 82 [facility] Non-AA Comment: [facility] Chronic Kidney Disease less than 60 mL/min/1.73 sq.m Kidney failure less than 15 mL/min/1.73 sq.m Specimen Blood Performing Organization Address City/State/Zipcode Phone Number [facility] [address] [place] [address] documented in this encounter Visit Diagnoses Not on filedocumented in this encounter Administered Medications Action Date Dose Rate Site Medication Order MAR Action 11/07/2013 9:56 AM CDT 72 mL Right Knee ropivacaine 0.5% 60 mL/tobramycin 80 Given mg/2mL 2 mL/morphine (pf) 1 mg/mL 10 mL/epinephrine 1 mg/mL 0.25 mL (DR MCDONNELL) As needed, Starting Wed11/07/13 at 0956, Intra-op 11/07/2013 9:57 AM CDT 3,000 mL Right Knee sodium chloride irrigation (NS) 0.9 % Given As needed, Starting Wed11/07/13 at 0957, Intra-op 11/07/2013 10:20 AM CDT 1,000 mL Right Knee sterile water irrigation irrigation Given solution As needed, irrigation, Starting Wed11/07/13 at 1020, Intra-op 11/07/2013 9:59 AM CDT 1 g Right Knee vancomycin (VANCOCIN) injection Given As needed, Starting 11/07/13 at 0959, Intra-op documented in this encounter
--- OUTSIDE RECORDS SUMMARY | 2018-11-10 17:43 | XMS REPORT | Encounter Summary ---
Author Author [facility] Organization [facility] Address Unknown Phone Unavailable Care Team Providers Care Job Placement Specialist Name Role Phone Ange Frazier MD PCP Encounter Details Care Team Description Date [place] [address] [place] [address] [phone] 11/07/2013 [facility] 11/10/[id number] [place] [address] Social History Date Tobacco Use Types Packs/Day [...] encounter Discharge Summaries * Roosevelt Pina RN CLASS 1 OWNER OPERATOR - 04/02/2014 1:01 PM 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 Vásquez has had long term care social worker problems with known oste oarthritis of a [...] ambulation and was stable for discharge to [facility] facility[facility]home. Discharge instructions discussed with her including woun d care, DVT prophylaxis, signs and symptoms for which the physician should be no tified and clinic follow up. 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 Mcdonnell - As scheduled * Attachments The following attachments cannot be sent through Care Everywhere.* TRAMADOL HYDROCHLORIDE ORAL TABLET (MARTINIQUAIS) * TAPENTADOL ORAL TABLET (MARTINIQUAIS) * ASPIRIN ORAL TABLET (MARTINIQUAIS) documented in this encounter Medications at Time [...] this encounter Progress Notes * Gilma Hansen LSCharity - 11/10/2013 1:52 PM CDT Patient was accepted at [facility], they transported her at noon today.[facility] Is a skilled facility. * Adwoa Butler, OT - 11/10/2013 11:46 AM CDT 11/10/13 [...] Plan Continued OT * Roosevelt Pina RN APRN - 11/10/2013 7:26 AM CDT No complaints of chest pain or shortness of breath. Extremity right lower Dressing dry, clean and intact Vascular normal and pulses present Muscular N/V/M intact Labs are stable. Minimal pain relief with meds. Will try nucynta Pt to be placed for in patient rehab. * Jennifer Heart, SELF PAY SPECIALIST - 11/09/2013 5:37 PM CDT Respiratory Care Services Initial Consultation Note Name: Pamela Vásquez CPI: [id number] Pamela Vásquez was evaluated per RATE Consultation [...] 15 mL 15 mL Oral Q4H PRN Roosevelt Pina RN CLASS 1 OWNER OPERATOR 15 mL at 11/08/13 1002 docusate sodium (COLACE) capsule 100 mg 100 mg Oral BID PRN Roosevelt hunt RN CLASS 1 OWNER OPERATOR 100 mg at 11/09/13 0816 enoxaparin (LOVENOX) syringe 40 mg 40 mg Subcutaneous Daily Roosevelt hunt RN CLASS 1 OWNER OPERATOR 40 mg at 11/09/13 0631 fentaNYL (SUBLIMAZE) 50 mcg/mL injection 12.5-25 mcg 12.5-25 mcg Intravenou s Q2H PRN Jerri Mcdonnell DO 12.5 mcg at 11/08/13 0820 ferrous sulfate tablet 325 mg 325 mg Oral BID Roosevelt Pina RN APRN 3 25 mg at 11/08/132000 folic acid (FOLVITE) tablet 1 mg 1 mg Oral Daily Roosevelt Pina RN APRN HYDROcodone-acetaminophen (NORCO) 7.5-325 mg per tablet 1-2 [...] 10 mg Oral Daily Roosevelt hunt RN CLASS 1 OWNER OPERATOR 10 mg at 11/09/13 1721 loratadine (CLARITIN) tablet 10 mg 10 mg Oral Daily JERMAINE Boo RN 10 mg at 11/09/13 0815 metaxalone (SKELAXIN) tablet 800 mg 800 mg Oral Q8H PRN Aurora Boo CLASS 1 OWNER OPERATOR 800 mg at 11/09/13 0817 metoclopramide (REGLAN) [...] 50 mg Oral Daily Roosevelt Pina RN APRN 50 mg at 11/09/13 0815 miconazole nitrate (ALOE VESTA) 2 % ointment Topical TID PRN Roosevelt nichols RN APRN ondansetron (ZOFRAN) 4 mg/2 mL injection 4 mg 4 mg Intravenous Q6H PRN Lino Pina RN CLASS 1 OWNER OPERATOR 4 mg at 11/08/13 0807 pantoprazole (PROTONIX) EC tablet 40 mg 40 mg Oral Daily Jerri Mcdonnell DO 40 mg at 11/09/13 0815 polyethylene glycol (GLYCOLAX) packet 17 g 17 g Oral Daily PRN Roosevelt Santos, RN CLASS 1 OWNER OPERATOR pravastatin (PRAVACHOL) tablet 80 mg 80 mg Oral Nightly Jerri Mcdonnell, DO 80 mg at 11/07/132258 sodium chloride 0.9% infusion 100 mL/hr Intravenous Continuous Jerri Frey n, DO 100 mL/hr at 11/09/13 0021 traMADol (ULTRAM) tablet 50-100 mg 50-100 mg Oral Q6H PRN Jerri Mcdonnell, DO 50 mg at 11/09/13 1721 zolpidem [...] Assistance required to generate solutions Communication Communication [place] Transfers Sit to Stand Transfers Stand by [...] PM CDT Multidisciplinary Discharge Rounds Disciplines Present: long term care social worker, bilingual case manager and nursing administration Identified Needs - Consults: long term care social worker Identified Needs - Discharge Barriers: other NONE Identified Needs - Education: no Identified Needs - DME: no POSSIBLE D/C WITH [facility] OR [place] * Gilma Hansen LSCSW - 11/09/2013 1:50 PM CDT I have called Rafaela josé, [facility] and [facility] and faxed info. To th em. Rafaela José does not have a bed available. The others are still reviewing . * Gilma Hansen LSCSW - 11/09/2013 12:37 PM CDT Received referral for discharge planning. Patient is interested in [facility] and [facility]. I will call and fax info. To [...] step commands with increased time Communication Communication [place] Transfers Sit to Stand Transfers Modified independent [...] Assistive Device None Prior Function Level of [place] Independent with functional transfers;Independent with amb ulation [...] Assistive Device None Prior Function Level of [place] Independent with functional transfers;Independent with amb ulation [...] IS , ankle pumps, etc. Communication Communication [place] (slurred speach) Communication Comment Repeated directions/joint program procedures many times. Transfers Sit to Stand Transfers Min assist Stand to Sit Transfers Min assist LE Ther Ex TKR Protocol Right;11 - 15 reps;Verbal cues;Tactile cues Cryotherapy Location/Area R knee * Jerri Mcdonnell DO - 11/08/2013 7:19 AM CDT [...] 10/27/2013 12:27 PM CDT Labs drawn at [facility] 10-27-13 * Milli Sparrow RN - [...] patients pain using appropriate pain scale. Collaborate [facility] interdisciplinary team and initiate plan and interventions [...] patients pain using appropriate pain scale. Collaborate [facility] interdisciplinary team and initiate plan and interventions [...] PROCEDURE: Right total knee arthroplasty. COMPLICATIONS: None. ENGLISH COMPOSITION INSTRUCTOR: Roosevelt Pina nurse practitioner, as a skilled first assista nt was necessary due to minimally invasive total knee arthroplasty. ESTIMATED BLOOD LOSS: 50 mL. DESCRIPTION OF PROCEDURE: After informed consent was obtained, Ms. Vásquez was b rought to the operating room at [facility]. Once satisfactory anesthesia was obtained, the patient's [...] were inserted in the knee joint utilizing [place]-G cement. All excess c ement was removed. [...] without complication or difficulty. Jerri Mcdonnell DO [id number] CC: documented in this encounter Plan of [...] Sodium 131 (L) 133 - 147 MEQ/L [facility] Specimen Blood Performing Organization Address City/State/Zipcode Phone Number [facility] [address] [place] [address] * Complete Blood Count (11/09/2013 6:25 AM CDT) Only the most recent of 3 results within the time period is included. WBC 9.83 4.00 - 11.00 TH/uL [facility] RBC 2.78 (L) 4.00 - 5.00 MIL/uL [facility] Hemoglobin 8.3 (L) 12.0 - 15.0 g/dL [facility] Hematocrit 25 (L) 36 - 45 % [facility] MCV 90 80 - 99 fL [facility] MCH 30 27 - 34 pg [facility] MCHC 33 32 - 36 % [facility] RDW 12.6 9.0 - 14.5 % [facility] Platelet Count 187 140 - 400 TH/uL [facility] MPV 10.4 9.4 - 12.3 fL [facility] Nucleated RBCs 0 0 - 0 /100 [facility] Specimen Blood Performing Organization Address [facility] Phone Number [facility] [address] [place] [address] * Electrolytes (11/08/2013 4:30 AM CDT) Sodium 126 (L) 133 - 147 MEQ/L [facility] Potassium 4.7 3.5 - 5.3 MEQ/L [facility] Chloride 91 (L) 96 - 112 MEQ/L [facility] Carbon Dioxide 29 20 - 32 MEQ/L [facility] Anion Gap 5 5 - 17 [facility] Specimen Blood Performing Organization Address City/[facility] Phone Number [facility] [address] [place] [address] * XR Knee- right AP and LAT (11/07/2013 11:18 AM CDT) Specimen Impressions Performed At Impression: Postoperative changes right total knee arthroplasty. XIMENA Narrative Performed At Patient: GUERDA VÁSQUEZ BOZENAJAELANNEMARIE Phone#: med Rec#: [id number] Sex#:F # [id number] Cindy#:[id number] Location:[facility] ORS-03Accession#: [id number] Procedure Requested:[id number] XR KNEE 1 OR 2 VIEWS RIGHT Reason for Exam:Post-op Eval Exam Ordered: Exam Date/Time: Check-in Date/Time: Dictation Location: [facility] DATE:Nov 07, 2013 11:18:42 AM EXAM:XR KNEE 1 OR 2 VIEWS RIGHT INDICATION:Post-op Eval No comparison FINDINGS:Post-op changes of right total knee arthroplasty. Components appear well seated. Patellar resurfacing. Procedure Note Interface, Rad Results In - 11/07/2013 11:52 AM CDT Patient: PAMELA VÁSQUEZ Phone#: [facility] Rec#: [id number] Sex#: F # [id number] Cindy#: [id number] Location: [place] [address] Procedure Requested: [id number] XR KNEE 1 OR 2 VIEWS RIGHT Reason for Exam: Post-op Eval Exam Ordered: 11/07/2013 1053 Exam Date/Time: 11/07/2013 1118 Check-in Date/Time: 11/07/2013 1118 Dictation Location: [facility] DATE: Nov 07, 2013 11:18:42 AM [...] / : F 1940 (Age: 72) VISIT: [id number] SUBMITTING PHYSICIAN:JERRI MCDONNELL M.D. CLIENT:[facility] COLLECTED: 11/07/2013 REPORTED:11/09/2013 SURGICAL PATHOLOGY REPORT COPATH [...] cassette following decalcification.Residual. DA/kh Gross performed at [facility], [address] [place] [address]. MICROSCOPIC DESCRIPTION: Microscopic examination performed. [place]: [facility], [address] [place] [address] Performing Laboratory Location: [facility], Carson Bautista M.D., [employer], [address] [place] [address] Technical processing at: [facility] Jt Larson M.D., [employer] [address] [place] [address] END OF REPORT Performing Organization Address City/[facility]/Zipcode Phone Number [facility] [address] [place] [address] [facility] [address] [place] [address] * Urine Nitrite (10/27/2013 3:37 PM CDT) Nitrite Urine Negative Negative [facility] Specimen Urine Performing Organization Address City/[facility]/Zipcode Phone Number [facility] [address] [place] [address] * Urinalysis (10/27/2013 3:37 PM CDT) Appearance, Yellow [facility] Urine [facility] Glucose Urine Negative Negative mg/dL [facility] Bilirubin Urine Negative Negative [facility] Ketones Urine Negative Negative mg/dL [facility] Specific 1.010 1.001 - 1.030 [facility] [place], [facility] Hemoglobin Negative Negative [facility] PH Urine 6.0 5.0 - 8.0 [facility] Protein Urine Negative Negative mg/dL [facility] Qual [facility] Urobilinogen Negative Negative EU/dL [facility] Leukocyte Negative Negative [facility] Esterase [facility] Specimen Urine Performing Organization Address [facility] Phone Number [facility] [id number] [place] [address] * C-Reactive Protein (10/27/2013 3:37 PM CDT) C Reactive 6.4Comment: Infection or 0.0 - 10.0 mg/L [facility] Protein Inflammation >10.0 mg/L [facility] Specimen Blood Performing Organization Address City/[facility] Phone Number [facility] [address] [address] [facility]ATOR[facility] * Erythrocyte Sedimentation Rate (10/27/2013 3:37 PM CDT) Sed Rate 7 0 - 17 mm/h [facility] Specimen Blood Performing Organization Address [facility] [place] [address] * APTT (10/27/2013 3:37 PM CDT) APTT 28 22 - 34 sec [facility] Specimen Blood Performing Organization Address [facility] Number [facility] [address] [address] * Prothrombin Time/INR (10/27/2013 3:37 PM CDT) Protime 13.3 11.7 - 14.3 sec [facility] INR 1.0 0.9 - 1.1 [facility] Specimen Blood Performing Organization Address [facility] Number [facility] [address] [address] * Urinalysis Reflex (10/27/2013 3:37 PM CDT) UA Reflex Complete [facility] Specimen Urine Performing Organization Address [facility] Phone Number [facility] [address] [address] * Basic Metabolic Panel (10/27/2013 3:37 PM CDT) Sodium 135 133 - 147 MEQ/L [facility] Potassium 4.6 3.5 - 5.3 MEQ/L [facility] Chloride 93 (L) 96 - 112 MEQ/L [facility] Carbon Dioxide 30 20 - 32 MEQ/L [facility] Anion Gap 12 5 - 17 [facility] Calcium 9.4 8.4 - 10.5 mg/dL [facility] Glucose 106 (H) 70 - 100 mg/dL [facility] Blood Urea 16 7 - 26 mg/dL [facility] Creatinine 0.7 0.4 - 1.1 mg/dL [facility] eGFR Female AA 99 [facility] Comment: [facility] Chronic Kidney Disease less than 60 mL/min/1.73 sq.m Kidney failure less than 15 mL/min/1.73 sq.m eGFR Female 82 [facility] Non-AA Comment: [facility] Chronic Kidney Disease less than 60 mL/min/1.73 sq.m Kidney failure less than 15 mL/min/1.73 sq.m Specimen Blood Performing Organization Address City/State/Zipcode Phone Number [facility] [address] [place] [address] documented in this encounter Visit Diagnoses Diagnosis Right knee pain Pain in joint, lower leg documented in this encounter Administered Medications Action Date Dose Rate Site Medication Order MAR Action 11/08/2013 3:38 AM CDT 1,000 mg 400 mL/hr acetaminophen (OFIRMEV) injection 1,000 New Bag mg 1,000 mg, Intravenous, at 400 mL/hr, Every 6 hours scheduled, First dose on Wed11/07/13 at 0800, For 1 day, Do not exceed 4 GM/DAY of acetaminophen. If 65 or older do not exceed 3 GM/DAY. If chronic alcoholic do not exceed 2 GM/DAY. , 1,000 mg 400 mL/hr Left Arm New Bag 11/07/2013 9:30 PM CDT 1,000 mg 400 mL/hr New Bag 11/07/2013 3:21 PM CDT acetaminophen (TYLENOL) 325 MG tablet Starting Wed11/09/13 at 1450, For 1 dose, Created by clare del cid, 11/10/2013 6:06 AM CDT 650 mg acetaminophen (TYLENOL) tablet 325-650 Given mg 325-650 mg, Oral, Every 6 hours PRN, mild pain (pain score 1-3), Starting [facility] 11/09/13 at 1452, Do not exceed 4 GM/DAY of acetaminophen. If 65 or older do not exceed 3 GM/DAY. If chronic alcoholic do not exceed 2 GM/DAY., 650 mg Given 11/09/2013 9:20 PM CDT 650 mg Given 11/09/2013 2:53 PM CDT 11/08/2013 10:02 AM CDT 15 mL aluminum-magnesium hydroxide-simethicone Given (MAALOX PLUS) 400-400-40 mg/5 mL suspension 15 mL 15 mL, Oral, Every 4 hours PRN, indigestion, Starting Wed11/07/13 at 1412, Avoid if estimated glomerular filtration rate (eGFR) is less than 20 mL/minute/1.73m2., 11/08/2013 2:20 AM CDT 1 g ceFAZolin (ANCEF) injection 1 g New Bag 1 g, Intravenous, Every 8 hours, First dose on Wed11/07/13 at 1815, For 2 doses, All prophylactic antibiotics should be discontinued within 24-hours of surgery end time. If giving IV push, reconstitute each vial with 10 ml sterile water and give over 2-3 minutes, 1 g New Bag 11/07/2013 5:49 PM CDT 11/09/2013 9:21 PM CDT 100 mg docusate sodium (COLACE) capsule 100 mg Given 100 mg, Oral, 2 times daily PRN, constipation, stool softening, Starting Wed11/07/13 at 1412, Hold these medications if patient has had loose stool or diarrhea within previous 24 hours., 100 mg Given 11/09/2013 8:16 AM CDT 100 mg Given 11/08/2013 8:01 PM CDT 11/10/2013 6:06 AM CDT 40 mg Abdominal Tissue enoxaparin (LOVENOX) syringe 40 mg Given 40 mg, Subcutaneous, Daily, First dose on Wed11/08/13 at 0700 40 mg Abdominal Tissue Given 11/09/2013 6:31 AM CDT 40 mg Abdominal Tissue Given 11/08/2013 7:00 AM CDT 11/10/2013 8:06 AM CDT 25 mcg fentaNYL (SUBLIMAZE) 50 mcg/mL injection Given 12.5-25 mcg 12.5-25 mcg, Intravenous, Every 2 hours PRN, pain, Starting Wed11/08/13 at 0749 12.5 mcg Given 11/08/2013 8:20 AM CDT 11/07/2013 1:27 PM CDT 50 mcg fentaNYL (SUBLIMAZE) 50 mcg/mL injection Given 25-50 mcg 25-50 mcg, Intravenous, Every 5 min PRN, severe pain (pain score 7-10), pain, Starting Wed11/07/13 at 1052, PACU (only), Give only if RR is greater than 8 breaths/min. Maximum of 200 mcg in 2 hours., 11/08/2013 8:01 PM CDT 325 mg ferrous sulfate tablet 325 mg Given 325 mg, Oral, 2 times daily, First dose on Wed11/07/13 at 1430, 325 mg of ferrous sulfate contains 65 mg of iron, 325 mg Given 11/07/2013 11:01 PM CDT 11/07/2013 3:34 PM CDT 0.5 mg Left Arm HYDROmorphone (DILAUDID) injection 0.5-1 Given mg 0.5-1 mg, Intravenous, Every 3 hours PRN, severe pain (pain score 7-10), Starting Wed11/07/13 at 1412 11/08/2013 8:01 PM CDT 15 mg ketorolac (TORADOL) injection 15 mg Given 15 mg, Intravenous, Every 6 hours, First dose on Wed11/07/13 at 1500, For 6 doses, Hold if creatinine clearance is < or=30 mL/min or Cr > or=1.5., 15 mg Given 11/08/2013 2:36 PM CDT 15 mg Given 11/08/2013 8:07 AM CDT 11/07/2013 9:45 AM CDT lactated ringers infusion New Bag 100 mL/hr, Intravenous, Continuous, Starting Wed11/07/13 at 0745, Pre-op New Bag 11/07/2013 9:00 AM CDT 100 mL/hr 100 mL/hr New Bag 11/07/2013 7:59 AM CDT 11/08/2013 2:20 AM CDT 100 mL/hr 100 mL/hr lactated ringers infusion New Bag 100 mL/hr, Intravenous, Continuous, Starting Wed11/07/13 at 1115, Give until taking adequate PO., 100 mL/hr 100 mL/hr New Bag 11/07/2013 1:45 PM CDT 11/10/2013 8:06 AM CDT 100 mcg levothyroxine (SYNTHROID, LEVOTHROID) Given tablet 100 mcg 100 mcg, Oral, Daily, First dose on Wed11/07/13 at 1430, Take on empty stomach , 100 mcg Given 11/09/2013 8:15 AM CDT 100 mcg Given 11/08/2013 9:55 AM CDT 11/09/2013 5:21 PM CDT 10 mg lisinopril (PRINIVIL,ZESTRIL) tablet 10 Given mg 10 mg, Oral, Daily, First dose on Wed11/07/13 at 1430 10 mg Given 11/08/2013 5:54 PM CDT 11/09/2013 8:15 AM CDT 10 mg loratadine (CLARITIN) tablet 10 mg Given 10 mg, Oral, Daily, First dose on Wed11/07/13 at 1430 10 mg Given 11/07/2013 3:22 PM CDT 11/10/2013 10:21 AM CDT 800 mg metaxalone (SKELAXIN) tablet 800 mg Given 800 mg, Oral, Every 8 hours PRN, muscle spasms, Starting Wed11/07/13 at 1412 800 mg Given 11/09/2013 8:17 AM CDT 800 mg Given 11/08/2013 5:54 PM CDT 11/09/2013 6:54 AM CDT 10 mg metoclopramide (REGLAN) injection 5-10 Given mg 5-10 mg, Intravenous, Every 6 hours PRN, nausea, vomiting, Starting Wed11/07/13 at 1412, Use if treatment failure or contraindications to first line therapy 5 10 mg IV/IM; every 10 minutes up to 10 mg within 30 minutes. If >65, do not exceed 5 mg total over 30 minute titration period. May repeat every 6 hours as needed., 10 mg Given 11/08/2013 12:00 PM CDT 10 mg Given 11/08/2013 6:04 AM CDT 11/10/2013 8:12 AM CDT 10 mg metoclopramide (REGLAN) tablet 10 mg Given 10 mg, Oral, Every 6 hours PRN, nausea, vomiting, Starting Wed11/10/13 at 0811 11/10/2013 8:05 AM CDT 50 mg metoprolol (TOPROL-XL) 24 hr tablet 50 Given mg 50 mg, Oral, Daily, First dose on Wed11/07/13 at 1430, DO NOT CRUSH OR CHEW., 50 mg Given 11/09/2013 8:15 AM CDT 50 mg Given 11/08/2013 9:55 AM CDT 11/07/2013 8:56 AM CDT 2 mg midazolam (VERSED) injection 1-3 mg Given 1-3 mg, Intravenous, Once, Wed11/07/13 at 0900, For 1 dose, Pre-op 11/08/2013 8:07 AM CDT 4 mg ondansetron (ZOFRAN) 4 mg/2 mL injection Given 4 mg 4 mg, Intravenous, Every 6 hours PRN, nausea, vomiting, Starting Wed11/07/13 at 1412, If treatment failure or contraindication to first or second line agent use Do NOT use ondansetron if the patient is actively vomiting or has received ondansetron within the past 6 hours including preoperatively or intraoperatively., 4 mg Left Arm Given 11/07/2013 6:08 PM CDT 11/07/2013 10:59 PM CDT 10 mg oxyCODONE (OxyCONTIN) 12 hr tablet 10 mg Given 10 mg, Oral, Every 12 hours scheduled, First dose on Wed11/07/13 at 2100, DO NOT CRUSH OR CHEW., 11/07/2013 11:04 PM CDT 10 mg oxyCODONE (ROXICODONE) immediate release Given tablet 5-10 mg 5-10 mg, Oral, Every 4 hours PRN, severe pain (pain score 7-10), Give with OFIRMEV, Starting Wed11/07/13 at 1412 10 mg Given 11/07/2013 3:22 PM CDT 11/09/2013 8:15 AM CDT 40 mg pantoprazole (PROTONIX) EC tablet 40 mg Given 40 mg, Oral, Daily, First dose on Wed11/07/13 at 1500, DO NOT CRUSH OR CHEW., 40 mg Given 11/08/2013 8:09 AM CDT 11/07/2013 10:59 PM CDT 80 mg pravastatin (PRAVACHOL) tablet 80 mg Given 80 mg, Oral, Nightly, First dose on Wed11/07/13 at 2100 11/09/2013 12:21 AM CDT 100 mL/hr 100 mL/hr sodium chloride 0.9% infusion New Bag 100 mL/hr, Intravenous, Continuous, Starting Wed11/08/13 at 1200 100 mL/hr 100 mL/hr New Bag 11/08/2013 11:56 AM CDT 11/10/2013 8:06 AM CDT 100 mg traMADol (ULTRAM) tablet 50-100 mg Given 50-100 mg, Oral, Every 6 hours PRN, moderate pain (pain score 4-6), Starting Wed11/08/13 at 0729 50 mg Given 11/10/2013 1:57 AM CDT 50 mg Given 11/09/2013 5:21 PM CDT documented in this encounter
--- OUTSIDE RECORDS SUMMARY | 2018-11-10 17:44 | XMS REPORT | Encounter Summary ---
Author Author [facility] Organization [facility] Address Unknown Phone Unavailable Care Team Providers Care Manager Poker Name Role Phone Ange Frazier MD PCP Encounter Details Care Team Description Date Type Department Oseas Martins MD [address] [address] 08/15/2013 [facility] Visit Social History Date Tobacco Use Types Packs/Day Years Used Never Assessed Sex Assigned at Date Recorded Not on file Industry Job Start Date Occupation Not on file Not on file Not on file Travel End Travel History Travel Start No recent travel history available. documented as of this encounter Last Filed Vital Signs Reading Time Taken Comments Vital Sign 124/70 08/15/2013 2:54 PM CDT Blood Pressure 66 08/15/2013 2:54 PM CDT Pulse - - Temperature - - Respiratory Rate - - Oxygen Saturation - - Inhaled Oxygen Concentration 68.8 kg (151 lb 9.6 oz) 08/15/2013 2:54 PM CDT overweight Weight 160 cm (5' 3") 08/15/2013 2:54 PM CDT Height 26.85 08/15/2013 2:54 PM CDT Body Mass Index documented in this encounter Progress Notes * Oseas Martins MD - 08/15/2013 3:00 PM CDT [address] [address] August 15, 2013 Ange Frazier MD [address] [address] RE: PAMELA VÁSQUEZ : 1940 Chart #: [id number] Visit provider: Oseas Martins M.D. Visit location: [facility] Dear Dr. Frazier: I had the pleasure of seeing PAMELA VÁSQUEZ in the office today. She is 72 years o f age and presents with the following chief complaints: congenital heart diseas e. HPI: The patient is now 72 and it has been a year since I had last seen her. You had sent her over initially because of some chest discomfort. She had also been ho spitalized with a near syncopal episode and some hypotension. She was found to be hypothyroid as well. Her blood pressure over the past year has been well con trolled. Her lipids last year were in an acceptable range, but the LDL levels h ave gone up substantially and you recently increased the pravastatin from 40 to 80 mg at bedtime. She has also gained about seven pounds since she was last her e, but she ascribes that to inactivity related to her bunions on her right foot that were operated on and her bilateral knee arthritis. She is now starting to feel better and is eating more sensibly. She denies any chest pain. She has not been aware of palpitations and has not h ad any dizziness or syncope. Problem List: 05/17/2012 Arrhythmia Holter Normal Holter monitor AVG HR 72, range 60-114 No PIPE LAYER HELPER B's and only an occasional SVPB without SVT, AF No bradycardia, heart block or p auses 02/03/2012 Congenital Congenital heart [id number] 05/17/2012 COR SPECT Exertional chest pain leading to premature discontinuation of exercise. Achievement of only 5.4 minutes and 4.6 METs of activity without ST changes or arrhythmias. Regadenoson was therefore injected in order to augment myocardial blood flow. No ischemia and no regions of myocardial injury as per my ocardial perfusion images. Left ventricular ejection fraction normal at 79%. 02/18/2012 Dyslipidemia 02/02/2012 Echo 1. Normal left ventricular systolic function, with an estimate d ejection fraction of 60%. 2. No significant valvular abnormalities. 3. Atr ial septal aneurysm without definite evidence for patent foramen ovale following agitated saline injection. 4. Recommend RAMIRO to further assess possible PFO if clinically indicated. 02/02/2012 Echo [...] 60 05/17/2012 EF SPECT Stress EF: 79 Hypertension 02/01/2012 Near syncope 03/05/2011 PVD Carotid Duplex Mild atherosclerotic plaque with no evidence for a hemodynamically significant stenosis. Both vertebral arteries are patent with antegrade flow. TIA Past Medical History: Anemia Hypothyroidism GERD Leukocytosis Osteoarthritis TIA 2010 Past Surgical History: Total Knee Replacement Right Cataract Surgery Bunionectomy 2012 Final Medications: Prilosec OTC 20 Mg Take once daily Synthroid 100 Mcg take 1 tablet (100MCG) by oral route every day Pravastatin Sodium 80 Mg take 1 tablet (80MG) by oral route every day Metoprolol Succinate 50 Mg take 1 tablet (50MG) by oral route every day Lisinopril 10 Mg take 1 tablet (10MG) by oral route every day Calcium 500 + Vit D 500 Mg Calcium (1,250 Mg)-400 Unit 2 po daily Low Dose Aspirin EC 81 Mg take 1 tablet (81MG) by oral route every day Multivitamin 1 po daily Glucosamine MSM 1,500 Mg-500 Mg/30 Ml 2 po daily Vitamin D3 Take as directed Allergies/Intolerances: Allergy Reaction Latex Rash Adhesive Rash Sulfa Rash Family History: Sister Diagnosed with HTN. Mother at age 86. Father Cause of was CAD at age 68. 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 The BMI is 26.90 . Blood pressure taken in the left arm is 124/70 mmHg in the sitting position. The pulse is 66. The rhythm is regular. Const The patient is an overweight female. HEENT The pupils are equal and round. The patient's sclerae are clear. There i s no corneal arcus. There are no xanthelasmas noted. Bilateral hearing loss se nikita. Pulm Lungs are clear to auscultation. Cardiac Regular rate and rhythm. Normal S1 and S2. No murmur, rub, or gallop pre sent. Abd The patient has no abdominal tenderness to palpation. There is no hepatomeg bennett. The abdominal aorta is of normal size. [...] noted. There is no facial droop detected. The patien t appears anxious. EKG: Result: No change since last visit. Rhythm: Sinus AV Conduction: RSR' Otherwise normal EKG. Most Recent Lipids Available for Review: Date Collected: 07/14/2013 Fasting: Fasting unknown Total Cholesterol: 187 HDL: 49 LDL: 117 Triglycerides: 104 Ratio: 3.82 Glucose: 104 ALT 34 HbA1C 6.0 Impression and Plan: 1. Hypertension, with good control. 2. Hypercholesterolemia, with a high LDL of 117. 3. Obesity. 4. Degenerative arthritis. 5. Small patent foramen ovale of trivial size, asymptomatic. I will plan on seeing her back in a year. She has now been on the higher dose o f pravastatin for the last month. In another two months, I would be inclined to repeat the lipid panel and consider a switch to atorvastatin, which is still ge neric. I would go with 40 mg q.h.s. Before doing that, I would like to get a C ardioScan. If by chance the Agatston score was in a low risk category, then I w ould be much less inclined to be terribly aggressive regarding lipid-lowering th cecilia. This is based on the most recent criteria from the [place] [employer] and [place] [employer]. Testing ordered: Description Interval CardioScan First Available EKG Today Follow up: Oseas Martins M.D. 1 Year Thank you for allowing me to participate in PAMELA VÁSQUEZ's care. If I can be of any further assistance, please do not hesitate to contact me. Sincerely, Oseas Martins M.D. DLS:andressa F: 08/20/2013 documented in this encounter Plan of Treatment Not on filedocumented as of this encounter Visit Diagnoses Not on filedocumented in this encounter
--- OUTSIDE RECORDS SUMMARY | 2018-11-10 17:44 | XMS REPORT | Encounter Summary ---
Author Author [facility] Organization [facility] Address Unknown Phone Unavailable Care Team Providers Care Ballroom Dance Instructor Name Role Phone Ange Frazier MD PCP Encounter Details Care Team Description Date Type Department Oseas Martins MD [address] [address] 09/27/2013 [facility] Visit Social History Date [...] Progress Notes * Oseas Martins MD - 09/27/2013 4:04 [place] [address] 10/05/2013 Ange Frazier MD [address] [address] Re: PAMELA VÁSQUEZ : 1940 Chart#: [id number] Dear Dr. Frazier: This is a followup note regarding PAMELA VÁSQUEZ. She has completed her cardiac t esting and I am writing to share the results with you. She had the following tests: Cardioscan: Phys Comments: Agatston Score: 0, Risk Category: Low Risk Category Based on the above, I am recommending the following: - no new recommendations Follow up is requested as planned. These test results along with my recommendations have been communicated to PAMELA VÁSQUEZ. I hope this information is useful to you. If you should have any ques tions or concerns, please do not hesitate to contact me. Sincerely, Oseas Martins M.D. CC to patient documented in this encounter Plan of Treatment Not on filedocumented as of this encounter Visit Diagnoses Not on filedocumented in this encounter
--- OUTSIDE RECORDS SUMMARY | 2018-11-10 17:44 | XMS REPORT | Encounter Summary ---
Author Author [facility] Organization [facility] Address Unknown Phone Unavailable Care Team Providers Care Statistician Name Role Phone Ange Frazier MD PCP Encounter Details Care Team Description Date Type Department Screening 09/25/2013 [place] [address] Social History Date Tobacco Use Types Packs/Day [...] tablet (80MG) by oral route every day 11/10/2013 aspirin 81 MG chewable Chew 81 mg 0 tablet daily. 02/23/2012 11/21/2014 clopidogrel (PLAVIX) 75 take 1 [...] Comments Procedure Name Priority Date/Time Associated Diagnosis CV CT CARDIOSCAN Routine 09/25/2013 Screening 1:26 PM CDT documented in this encounter Results * CV CT Cardioscan (09/25/2013 1:26 PM CDT) Specimen Narrative Performed At [facility] NAME: PAMELA VÁSQUEZ : [id number] GENDER:f MRN: KEN NUM:[id number] TEST:Coronary Calcium Score TEST DATE: TEST LOCATION:[facility] INPATIENT: INDICATION FOR TEST:Hypertension, Hyperlipidemia, Positive Family History SYMPTOMS:None PROTOCOL:High-resolution, ECG-synchronized Computed Tomography (CT) of the heart and coronary arteries was performed using a Siemens Somatom Volume Zoom.Data slices were acquired using the retrospective gating method at 74 mAs with a tube voltage of 120 kV applied.Each slice acquired was 3 mm thick using a 3 mm slice to slice step.The patients average heart rate was 78 bpm and varied over a range of 9 bpm.There were no image artifacts.. REPORT:Based on the size and density of the calcium deposits in each artery, a calcium score was computed using Siemens volumetric cardiac scoring software.Such deposits are markers for underlying coronary atherosclerosis.The coronary artery calcium score enables a person to compare his or her level of coronary calcification to levels found in healthy individuals of the same age and gender.The score is an indicator of the likelihood for significant coronary artery obstruction and the risk of a subsequent cardiac event.Coronary Artery: Left Main, # of Lesions: 0, Volume Score: 0, Mass Score: 0, Agatston Score: 0Coronary Artery: LCX, # of Lesions: 0, Volume Score: 0, Mass Score: 0, Agatston Score: 0Coronary Artery: RCA, # of Lesions: 0, Volume Score: 0, Mass Score: 0, Agatston Score: 0Coronary Artery: Total, # of Lesions: 0, Volume Score: 0, Mass Score: 0, Agatston Score: 0.The Agatston score indicates No Identifiable Calcification.The total Agatston score of 0 ranks PAMELA VÁSQUEZ within the Low Risk Category for females, of similar age.(Note: the database only contains persons between the ages of 30 and 79.) OTHER COMMENTS:This is a limited CT scan of the chest for evaluation of coronary artery calcification only and is not intended for any other purpose.Please refer to the attached recommendations provided to you at the time of your Cardioscan study for further information. Graham Pelletier MD [address] [facility] [facility], [address] [place] [address] PROVIDER APPROVAL DATETIME:2013-09-25 13:25:45.0 Procedure Note Interface, External Ris In - 09/26/2013 8:40 AM CDT NAME: PAMELA VÁSQUEZ : [id number] GENDER: f MRN: ACCOUNT NUM: [id number] TEST: Coronary Calcium Score TEST DATE: TEST LOCATION: [facility] INPATIENT: INDICATION FOR TEST: Hypertension, Hyperlipidemia, Positive Family History SYMPTOMS: None PROTOCOL: High-resolution, ECG-synchronized Computed Tomography (CT) of the heart and coronary arteries was performed using a Siemens Somatom Volume Zoom. Data slices were acquired using the retrospective gating method at 74 mAs with a tube voltage of 120 kV applied. Each slice acquired was 3 mm thick using a 3 mm slice to slice step. The patients average heart rate was 78 bpm and varied over a range of 9 bpm. There were no image artifacts.. REPORT: Based on the size and density of the calcium deposits in each artery, a calcium score was computed using Siemens volumetric cardiac scoring software. Such deposits are markers for underlying coronary atherosclerosis. The coronary artery calcium score enables a person to compare his or her level of coronary calcification to levels found in healthy individuals of the same age and gender. The score is an indicator of the likelihood for significant coronary artery obstruction and the risk of a subsequent cardiac event. Coronary Artery: Left Main, # of Lesions: 0, Volume Score: 0, Mass Score: 0, Agatston Score: 0 Coronary Artery: LCX, # of Lesions: 0, Volume Score: 0, Mass Score: 0, Agatston Score: 0 Coronary Artery: RCA, # of Lesions: 0, Volume Score: 0, Mass Score: 0, Agatston Score: 0 Coronary Artery: Total, # of Lesions: 0, Volume Score: 0, Mass Score: 0, Agatston Score: 0. The Agatston score indicates No Identifiable Calcification.The total Agatston score of 0 ranks PAMELA BRAZIL within the Low Risk Category for females, of similar age. (Note: the database only contains persons between the ages of 30 and 79.) OTHER COMMENTS: This is a limited CT scan of the chest for evaluation of coronary artery calcification only and is not intended for any other purpose. Please refer to the attached recommendations provided to you at the time of your Cardioscan study for further information. Graham Pelletier MD [address] [facility], [address] [place] [address] PROVIDER APPROVAL DATETIME: 2013-09-25 13:25:45.0 Performing Organization Address City/State/Zipcode Phone Number [facility] [address] [place] [address] documented in this encounter Visit Diagnoses Diagnosis Screening Screening for unspecified condition documented in this encounter
--- OUTSIDE RECORDS SUMMARY | 2018-11-10 17:44 | XMS REPORT | Encounter Summary ---
Author Author [facility] Organization [facility] Address Unknown Phone Unavailable Care Team Providers Care Environmental Health Safety Engineer Name Role Phone Ange Frazier MD PCP Encounter Details Care Team Description Date Type Department Oseas Martins MD [address] [place] [address] 09/13/2013 [facility] Visit Social History Date [...]
--- OUTSIDE RECORDS SUMMARY | 2018-11-10 17:44 | XMS REPORT | Encounter Summary ---
Author Author [facility] Organization [facility] Address Unknown Phone Unavailable Care Team Providers Care Television Maintenance Man Name Role Phone Ange Frazier MD PCP Encounter Details Care Team Description Date Type Department Juan José Marsh MD [id number] [place] [address] [id number] 11/07/2013 Anesthesia [facility] [id number] [place] [address] Anesthesia Record Responsible Anesthesiologist Anesthesia Start Time Anesthesia Stop Time Procedure Name Juan José Marsh MD 11/07/13 0900 11/07/13 1051 RIGHT TOTAL KNEE ARTHROPLASTY (Right Knee) Date Time Event Comment 1014 Review complete 2013 without orders 839 0900 AN Equip Check 0900 In room 0900 An Start 0900 An Start Data 0900 Pt eval immediately prior to anesthesia 0905 Anesthesiologis t Present 0913 Block start 0920 an mirza now Spinal medication administration 0921 Block stop 0921 Oxygen per face 8L O2 continuous with ETCO2 monitoring for duration of procedure mask 0923 Spontaneous respirations 0927 Satisfactory block level 0927 Anesthesia Ready 0933 Time out complete 0934 Procedure start - Primary Case 1042 Procedure stop - Primary case 1045 Responds to Verbal 1046 an stop data 1046 Out of Room 1051 An Stop 1051 Handoff I completed my SBAR handoff to the receiving nurse in the PACU. Meds Name Total midazolam 1mg/mL 1 mg [id number] 0.75% (PF) 7.5mg/mL 11.25 mg fentanyl 50mcg/mL 20 mcg lidocaine (PF) 2% 40 mg propofol infusion 10mg/mL 375.06 mg phenylephrine 0.1mg/mL 300 mcg ePHEDrine 10mg/mL 10 mg ondansetron 2mg/mL 4 mg dexamethasone 10mg/mL 4 mg propofol 10mg/mL 30 mg ceFAZolin (ANCEF) injection 1 g 2 g acetaminophen (OFIRMEV) injection 1,000 1,000 mg mg lactated ringers infusion 1,600 mL * Name O2 N2O Air EtN2O * No blood administrations on file. Removal Type Details Placement 11/08/13 1500 by RONALDO Christianson Peripheral Date: 11/07/13; Time: 0759; Size 11/07/13 0759 by Debra IV (gauge): 20 G; Orientation: Left; Brie Mcclure RN Location: Antecubital; Site Prep: Chlorhexidine; Technique: Palpation; Insertion Attempts: 1; Inserted By: CESAR CORTEZ; Removal Date: 11/08/13; Removal Time: 1500 11/06/18 0836 by User [employer] (Retired 11/07/13; 1057; Knee; Right; incision; 11/07/13 1057 by Vickie 05/11/18; 11/06/18 (This LDA has been removed & Lucas Ricardo RN search completed via automated utility); 0836 "wound" if (This LDA has been removed & completed placing via automated utility) new) Wound - Incision Assessment documented in this encounter Social History Date Tobacco Use Types Packs/Day Years Used Never Smoker Drinks/Week oz/Week Comments Alcohol Use 1 drink a week Yes Sex Assigned at Date Recorded Not on file Industry Job Start Date Occupation Not on file Not on file Not on file Travel End Travel History Travel Start No recent travel history available. documented as of this encounter Procedure Notes * Wendy Urrutia RN [employer] - 11/07/2013 10:37 AM CDT Associated Order(s): ANESTHESIA SPINAL BLOCK Spinal Start time: 11/07/2013 9:13 AM End time: 11/07/2013 9:21 AM Staffing Performed by: anesthesiologist and F[employer]ER DES[employer]ER Preanesthetic Checklist Preanesthetic Checklist: patient identified, risks and benefits discussed, pre- op evaluation, monitors and equipment checked and anesthesia consent Timeout: correct patient, correct site, correct position and correct procedure Procedure Diagnosis: right knee OA Referring Physician: Salin Reason for procedure: Anesthetic plan intraop Monitors: blood pressure, heart rate and continuous pulse ox Patient Position: sitting Sterile prep: povidone-iodine Identified interspace: Lumbar Skin Wheal 1% Lidocaine 3 mL Introducer: 20g, 1 1/4"" Spinal Needle: 25g, 3 1/2 inches Approach: Midline Attempts: 2 (x1 FIBER DESIGNER, x1 Staff) Injection: single shot NO RBC aspiration Aspirate CSF Paresthesia: left and transient (subsided prior to injection of medicine) Bupivacaine 0.75% 1.5 mL Fentanyl 20 mcg documented in this encounter Miscellaneous Notes * Anesthesia Postprocedure Evaluation - Lashawn Ricardo RN CRNA - 11/07/2013 1:35 PM CDT Patient: Sydnee Love Procedure(s) with comments: RIGHT TOTAL KNEE ARTHROPLASTY - 85179 Final Anesthesia Type Performed: spinal *Block Type (if peripheral regional or epidural used): No value filed. Patient location: PACU Last Vitals Blood pressure 129/68, pulse 76, temperature 36.9 C (98.4 F), temperature so urce Oral, resp. rate 15, height 1.6 m (5' 3"), weight 65.772 kg (145 lb), SpO2 97.00%. Level of consciousness: awake, alert and oriented Post-anesthesia pain: adequate analgesia Airway patency: patent Respiratory: unassisted Cardiovascular: stable and blood pressure at baseline Hydration: adequate PostOp Nausea/Vomiting: controlled Difficult Airway: no Anesthetic complications: no Discharge from anesthesia care: Appropriate for discharge from anesthesia care, no apparent anesthesia related complications * Anesthesia Preprocedure Evaluation - Juan José Marsh MD - 11/07/2013 8:37 AM CDT Anesthesia Evaluation Patient summary reviewed and ECG reviewed History of anesthetic complications Airway Mallampati: II TM distance: >3 FB Neck ROM: full Dental - normal exam Pulmonary - negative ROS and normal exam Cardiovascular - normal exam Exercise tolerance: good (+) hypertension well controlled, ECG reviewed Neuro/Psych (+) TIA, Comments: vertigo GI/Hepatic/Renal (+) GERD well controlled, Endo/Other - negative ROS (+) hypothyroidism, Abdominal - normal exam Obstetrics Negative OB ROS Anesthesia Plan ASA 2 Type: spinal () Patient currently taking beta carmela. Beta carmela will be maintained perioper atively. Anesthetic plan and risks discussed with patient. Plan discussed with FIBER DESIGNER. Post-operative analgesia: routine analgesia and antiemetics Recovery plan: PACU Risk factors for PONV: surgical procedure type, female, non smoker, need for pos t-operative narcotics and Hx PONV PONV risk level: high documented in this encounter Plan of Treatment Not on filedocumented as of this encounter Procedures Comments Procedure Name Priority Date/Time Associated Diagnosis ANESTHESIA SPINAL BLOCK Routine 11/07/2013 10:39 AM CDT documented in this encounter Results * ANESTHESIA SPINAL BLOCK (11/07/2013 10:39 AM CDT) Narrative Performed At Wendy Urrutia RN CRNA 11/07/2013 10:39 AM Spinal Start time: 11/07/2013 9:13 AM End time: 11/07/2013 9:21 AM Staffing Performed by: anesthesiologist and FIBER DESIGNER Preanesthetic Checklist Preanesthetic Checklist:patient identified, risks and benefits discussed, pre-op evaluation, monitors and equipment checked and anesthesia consent Timeout: correct patient, correct site, correct position and correct procedure Procedure Diagnosis:right knee OA Referring Physician:Kecia Reason for procedure: Anesthetic plan intraop Monitors: blood pressure, heart rate and continuous pulse ox Patient Position: sitting Sterile prep: povidone-iodine Identified interspace: Lumbar Skin Wheal 1% Lidocaine 3 mL Introducer: 20g, 1 1/4"" Spinal Needle: 25g, 3 1/2 inches Approach: Midline Attempts: 2 (x1 FIBER DESIGNER, x1 Staff) Injection: single shot NO RBC aspiration Aspirate CSF Paresthesia: left and transient (subsided prior to injection of medicine) Bupivacaine 0.75% 1.5 mL Fentanyl 20 mcg Procedure Note Wendy Urrutia RN FIBER DESIGNER - 11/07/2013 10:37 AM CDT Spinal Start time: 11/07/2013 9:13 AM End time: 11/07/2013 9:21 AM Staffing Performed by: anesthesiologist and SAM Preanesthetic Checklist Preanesthetic Checklist: patient identified, risks and benefits discussed, pre- op evaluation, monitors and equipment checked and anesthesia consent Timeout: correct patient, correct site, correct position and correct procedure Procedure Diagnosis: right knee OA Referring Physician: Kecia Reason for procedure: Anesthetic plan intraop Monitors: blood pressure, heart rate and continuous pulse ox Patient Position: sitting Sterile prep: povidone-iodine Identified interspace: Lumbar Skin Wheal 1% Lidocaine 3 mL Introducer: 20g, 1 1/4"" Spinal Needle: 25g, 3 1/2 inches Approach: Midline Attempts: 2 (x1 FIBER DESIGNER, x1 Staff) Injection: single shot NO RBC aspiration Aspirate CSF Paresthesia: left and transient (subsided prior to injection of medicine) Bupivacaine 0.75% 1.5 mL Fentanyl 20 mcg documented in this encounter Visit Diagnoses Not [...] mL/hr New Bag 11/07/2013 3:21 PM CDT 11/07/2013 9:20 AM CDT 11.25 mg bupivacaine 0.75% in dextrose 8.25% Given (intrathecal) (SENSORCAINE) injection As needed, Starting Wed11/07/13 at 0920, Anesthesia Intra-op 11/07/2013 10:18 AM CDT 1 g ceFAZolin (ANCEF) injection 1 g Given 1 g, Intravenous, Once, Wed11/07/13 at 0745, For 1 dose, Pre-op, If giving IV push, reconstitute each vial with 10 ml sterile water and give over 2-3 minutes, 1 g Given 11/07/2013 9:27 AM CDT 11/07/2013 9:45 AM CDT 4 mg dexamethasone (DECADRON) injection Given As needed, Starting Wed11/07/13 at 0945, Anesthesia Intra-op 11/07/2013 9:49 AM CDT 10 mg EPHEDrine 10 mg/mL syringe Given As needed, Starting Wed11/07/13 at 0949, Anesthesia Intra-op 11/07/2013 9:20 AM CDT 20 mcg fentaNYL (SUBLIMAZE) injection Given As needed, Starting Wed11/07/13 at 0920, Anesthesia Intra-op 11/07/2013 9:45 AM CDT lactated ringers infusion New Bag 100 mL/hr, Intravenous, Continuous, Starting Wed11/07/13 at 0745, Pre-op New Bag 11/07/2013 9:00 AM CDT 100 mL/hr 100 mL/hr New Bag 11/07/2013 7:59 AM CDT 11/07/2013 9:24 AM CDT 40 mg lidocaine (pf) (XYLOCAINE-MPF) 20 mg/mL Given (2 %) injection As needed, Starting Wed11/07/13 at 0924, Anesthesia Intra-op 11/07/2013 9:13 AM CDT 1 mg midazolam (VERSED) injection Given As needed, Starting Wed11/07/13 at 0913, Anesthesia Intra-op 11/07/2013 10:24 AM CDT 4 mg ondansetron (ZOFRAN) 4 mg/2 mL injection Given As needed, nausea, vomiting, Starting Wed11/07/13 at 1024, Anesthesia Intra-op 11/07/2013 10:12 AM CDT 50 mcg phenylephrine HCl in 0.9% NaCl Given (NEOSYNEPHRINE) 1 mg/10 mL (100 mcg/mL) injection As needed, Starting Wed11/07/13 at 0938, Anesthesia Intra-op 50 mcg Given 11/07/2013 10:06 AM CDT 50 mcg Given 11/07/2013 10:00 AM CDT 11/07/2013 9:24 AM CDT 75 mcg/kg/min 29.61 mL/hr propofol (DIPRIVAN) infusion 10 mg/mL New Bag Continuous PRN, Starting Wed11/07/13 at 0924, Anesthesia Intra-op 11/07/2013 9:23 AM CDT 30 mg propofol (DIPRIVAN) injection Given As needed, Starting Wed11/07/13 at 0923, Anesthesia Intra-op documented in this encounter
--- OUTSIDE RECORDS SUMMARY | 2018-11-10 17:44 | XMS REPORT | Encounter Summary ---
Author Author [facility] Organization [facility] Address Unknown Phone Unavailable Care Team Providers Care Wire Walker Name Role Phone Ange Frazier MD PCP Reason for Visit * Reason Comments Headache Since last night. Saw Dr Frazier today and Dr Frazier told the pt to come here. Dizziness Since last night. Encounter Details Care Team Description Date Type Department Izabel Michelle MD [address] [place] [address] [phone] Emergency, Physician, Vertigo (Primary Dx) 09/15/2013 [place] [address] Social History Date Tobacco Use Types Packs/Day [...] Signs Reading Time Taken Comments Vital Sign 175/77 09/15/2013 7:00 PM CDT Blood Pressure 66 09/15/2013 7:00 PM CDT Pulse 36.6 C (97.9 F) 09/15/2013 5:02 PM CDT Temperature 16 09/15/2013 7:00 PM CDT Respiratory Rate 96% 09/15/2013 7:00 PM CDT Oxygen Saturation - - Inhaled Oxygen Concentration 66.7 kg (147 lb) 09/15/2013 5:04 PM CDT Weight 160 cm (5' 3") 09/15/2013 5:04 PM CDT Height 26.04 09/15/2013 5:04 PM CDT Body Mass Index documented in this encounter Discharge Instructions * Instructions* Izabel Michelle MD - 09/15/2013 Dizziness (Vertigo) and Balance Problems: Ensuring Your Safety Falls or accidents can lead to pain, broken bones, and fear of future falls. Pro tect yourself and others by preparing for episodes. Simple steps can help increa se your safety at home and wherever you go. Lighting Keep all areas well lit. This helps your eyes send the right signals to the brai n. It also makes you less likely to trip and fall. If bright lights make symptom s worse, dim the lights or lie in a dark room until the dizziness passes. Then t urn the lights back to their normal level. Tips: Keep a flashlight by the bed. Place nightlights in bathrooms and hallways. Replace burned-out bulbs, or have someone replace them for you. Fall Prevention To reduce your risk of falling: Rise out of a bed or chair slowly. Wear low-heeled shoes that fit properly and have slip-resistant soles. Remove throw rugs. Clear clutter from walkways. Use handrails on stairs. Have handrails installed or adjusted if needed. Install grab bars in the bathroom. Don't use towel racks for balance. Use a shower stool. Also, apply adhesive strips to the shower or tub floor. Going Out With a little time and preparation, you can get around safely. Tips: Bring a cane or walking aid if needed. Give yourself plenty of time in case a dizziness episode begins. Be patient. If an activity like walking through a crowded shop causes you str ess, you may not be ready for it yet. Asking for Help Don't be afraid to ask for help running errands, cooking meals, and doing exerci se. Whether it's a friend, loved one, neighbor, or stranger on the street, a lit tle help can make a world of difference. Driving If you become dizzy or disoriented while driving, you could hurt yourself and ot hers. That's why it's best to avoid driving until symptoms subside. In some case s, your license may be temporarily held until it's safe for you to drive again. For safety: Ask a friend to drive for you. Take public transportation. Walk to stores and other places when you can. [phone] Prema Acosta, [address] [facility] [address], [place] [address]. All rig hts reserved. This information is not intended as a substitute for professional medical care. Always follow your healthcare professional's instructions. * Attachments The following attachments cannot be sent through Care Everywhere.* BENIGN POSITIONAL VERTIGO (SWISS) documented in this encounter Medications at Time [...] tablet (80MG) by oral route every day 09/15/2013 09/25/2013 meclizine (ANTIVERT) 25 Take 1 tablet 30 tablet 0 mg tablet (25 mg total) by mouth 3 (three) times a day as needed. 09/15/2013 09/22/2013 ondansetron (ZOFRAN ODT) Take 1 tablet 20 tablet 0 4 MG disintegrating (4 mg total) tablet by mouth every 8 (eight) hours as needed for nausea. 11/10/2013 aspirin 81 MG chewable Chew 81 [...] as of this encounter ED Notes * Willie Moran RN - 09/15/2013 8:48 PM CDT Pt given chicken broth and soda crackers. * Willie Moran RN - 09/15/2013 8:39 PM CDT Pt returns from MRI states nausea and dizziness improved. Pt requesting beef br oth and soda crackers. * Willie Moran RN - 09/15/2013 8:03 PM CDT Pt much more calm post meds. Pt able to lay down post med. Pt placed on 2L O2. * Willie Moran RN - 09/15/2013 7:55 PM CDT Called by MRI pt c/o nausea, dizziness, and fear of MRI. Dr lizandro cárdenas gijani en. * Carson Galvan RN - 09/15/2013 6:31 PM CDT Patient states vertigo started when she laid back on CT table. * Nanda Hooper CNA - 09/15/2013 6:[address] Graham Morrow returned page * Nanda Hooper CNA - 09/15/2013 6:19 PM CDT Neurology paged * Carson Galvan RN - 09/15/2013 6:02 PM CDT Patient return from radiology * Carson Galvan RN - 09/15/2013 5:46 PM CDT Patient resting comfortably waiting for radiology; voicing "dull headache" * Izabel Michelle MD - 09/15/2013 5:41 PM CDT History Chief Complaint Patient presents with Headache Since last night. Saw Dr Frazier today and Dr Frazier told the pt to come here. Dizziness Since last night. Patient is a 72 y.o. female presenting with headaches and dizziness. Headache Associated symptoms: dizziness and nausea Associated symptoms: no congestion, no neck pain and no vomiting Dizziness Associated symptoms: headaches and nausea Associated symptoms: no tinnitus and no vomiting Patient is a 72-year-old female who presents with chief complaint of headache an d dizziness. She states she's had a very stressful week and has had intermittent episodes of her chronic vertigo throughout the week. After watching movie she h ad an acute onset of severe episode of vertigo after she bent her head back she also complains of a dull throbbing headache at the base of her neck. She denies any visual complaints she denies any numbness or weakness. She states she had a TIA in the past for she was dizzy but also had right leg numbness. She saw her [facility] today who sent her to the ER to rule out TIA. Patient states she is still having intermittent episodes of dizziness today however they're muc h improved as compared to the episode she had last night. She states her dizzine ss as vertiginous in nature makes her nauseated but she did not vomit. Patient's headache is mild to moderate in severity it is throbbing there was no relief wi th Tylenol. Past Medical History Diagnosis Date TIA (transient ischemic attack) Coronary artery disease Hyperlipidemia Hypertension Disease of thyroid gland History reviewed. No pertinent past surgical history. No family history on file. History Substance Use Topics Smoking status: Never Smoker Smokeless tobacco: Not on file Alcohol Use: Yes Comment: 1 drink a week Review of Systems Constitutional: Negative. HENT: Negative for congestion, neck pain and tinnitus. Eyes: Negative. Negative for visual disturbance. Gastrointestinal: Positive for nausea. Negative for vomiting. Endocrine: Negative. Musculoskeletal: Negative. Allergic/Immunologic: Negative. Neurological: Positive for dizziness and headaches. Negative for weakness. Hematological: Negative. All other systems reviewed and are negative. Physical Exam BP 175/77 | Pulse 66 | Temp(Src) 36.6 C (97.9 F) (Temporal) | Resp 16 | Ht 1 .6 m (5' 3") | Wt 66.679 kg (147 lb) | BMI 26.05 kg/m2 | SpO2 96% Physical Exam Nursing note and vitals reviewed. Constitutional: She is oriented to person, place, and time. She appears well-dev eloped and well-nourished. HENT: Head: Normocephalic and atraumatic. Eyes: Conjunctivae are normal. Pupils are equal, round, and reactive to light. Patient has nystagmus to the left Neck: Normal range of motion. Cardiovascular: Normal rate and regular rhythm. Pulmonary/Chest: Effort normal. Abdominal: Soft. Musculoskeletal: Normal range of motion. Neurological: She is alert and oriented to person, place, and time. No cranial n erve deficit. Coordination normal. Skin: Skin is warm and dry. Psychiatric: She has a normal mood and affect. Her behavior is normal. Judgment and thought content normal. ED Course Procedures Ekg was interpreted by myself. Normal sinus rhythm with a rate of 66 the interva ls are normal borderline left axis QRS complexes normal ST segments show no evid ence of ischemia. [facility] as [facility]. Patient's lab results were of the by myslissa and were unremarkable. I discussed the patient with Dr. Morrow. He recommended MRI/MRA to exclude a stroke. Patient's MRI and MRA were read by radiology evelia chávez by myself. She had no evidence of acute infarct Her large vessels were all p atent. I discussed these results with Dr. Morrow he was comfortable discharging t he patient home she'll be discharged home with meclizine and Zofran to be taken as needed she can followup with ENT as needed. The labs from this visit are Results for orders placed during the hospital encounter of 09/15/13 (from the [facility] 24 hour(s)) CBC AND DIFF (MANUAL DIFF IF NECESSARY) Result Value Range WBC 10.44 4.00 - 11.00 TH/uL RBC 4.36 4.00 - 5.00 MIL/uL Hemoglobin 13.9 12.0 - 15.0 g/dL Hematocrit 42 36 - 45 % MCV 95 80 - 99 fL MCH 32 27 - 34 pg MCHC 34 32 - 36 % RDW 11.9 9.0 - 14.5 % Platelet Count 267 140 - 400 TH/uL MPV 10.5 9.4 - 12.3 fL Nucleated RBCs 0 0 - 0 /100 %Segmented Neutrophils 53 45 - 78 % %Lymphocytes 35 15 - 47 % %Monocytes 10 0 - 12 % %Eosinophils 0 0 - 7 % %Basophils 1 0 - 2 % % Imm Grans 0 0 - 1 % # Granulocytes 5.59 1.70 - 6.80 TH/uL # Lymphocytes 3.68 (*) 1.00 - 3.30 TH/uL # Monocytes 1.08 (*) 0.20 - 0.90 TH/uL # Eosinophils 0.03 0.00 - 0.40 TH/uL # Basophils 0.07 0.00 - 0.10 TH/uL COMPREHENSIVE METABOLIC PANEL Result Value Range Sodium 142 133 - 147 MEQ/L Potassium 4.3 3.5 - 5.3 MEQ/L Chloride 102 96 - 112 MEQ/L Carbon Dioxide 27 20 - 32 MEQ/L Anion Gap 12 5 - 17 Calcium 9.1 8.4 - 10.5 mg/dL Glucose 98 70 - 100 mg/dL Protein Total Serum 6.8 6.0 - 8.2 g/dL Albumin 4.2 3.5 - 5.0 g/dL Alkaline Phosphatase 90 42 - 140 IU/L Alanine Aminotransferase 38 13 - 69 IU/L Aspartate Aminotransferase 45 15 - 46 IU/L Bilirubin Total 0.5 0.2 - 1.3 mg/dL Blood Urea Nitrogen 20 7 - 26 mg/dL Creatinine 0.7 0.4 - 1.1 mg/dL GFR Female AA 99 GFR Female Non-AA 82 TROPONIN Result Value Range Troponin <0.01 0.00 - 0.03 ng/mL PROTHROMBIN TIME/INR Result Value Range Protime 12.5 11.7 - 14.3 sec INR 1.0 0.9 - 1.1 The radiology results are CT HEAD WO CONTRAST Final Result: Impression: 1. No CT evidence of intracranial hemorrhage, mass, or acute infarct. 2. White matter changes suggestive of chronic small vessel ischemic disease. MRA HEAD WO CONTRAST Final Result: Impression: Possible mild stenosis of the right P1 segment. Dictation Location: [facility] MRI HEAD WO CONTRAST (Canceled) MRA NECK W WO CONTRAST (Results Pending) MRI HEAD W WO CONTRAST (Results Pending) Juan José Bella MD [address] [facility] [place] [facility] [address] Schedule an appointment as soon as possible for a visit As needed ED Clinical Impression SNOMED CT(R) 1. Vertigo VERTIGO Izabel Michelle MD 09/15/13 0899 documented in this encounter Plan of Treatment Not on filedocumented as of this encounter Procedures Comments Procedure Name Priority Date/Time Associated Diagnosis LAB SUMMARY 10/03/2013 11:37 AM CDT MRA NECK W WO CONTRAST STAT 09/18/2013 9:06 AM CDT MRI HEAD W WO CONTRAST STAT 09/15/2013 8:20 PM CDT MRA HEAD WO CONTRAST STAT 09/15/2013 8:[address] HEAD WO CONTRAST STAT 09/15/2013 6:00 PM CDT ECG STAT 09/15/2013 5:07 PM CDT TROPONIN STAT 09/15/2013 5:05 PM CDT PROTHROMBIN TIME/INR STAT 09/15/2013 5:05 PM CDT COMPREHENSIVE METABOLIC STAT 09/15/2013 PANEL 5:05 PM CDT CBC AND DIFF (MANUAL DIFF STAT 09/15/2013 IF NECESSARY) 5:05 PM CDT documented in this encounter Results * SCANNED LAB RESULTS (10/03/2013 11:37 AM CDT) Narrative Performed At Ordered by an unspecified provider. * MRA Neck w wo contrast (09/18/2013 9:06 AM CDT) Specimen Impressions Performed At Impression: [facility] Normal evaluation of the carotid bifurcations. Limited evaluation of the proximal left common carotid artery secondary to tortuosity. Stenosis cannot be definitely excluded in this region. Patent vertebral arteries. Dictation Location: [facility] Narrative Performed At Patient: GUERDA VÁSQUEZ Phone#: [facility] Rec#: [id number] Sex#:F # 1940 Cindy#:[id number] Location:[place] [address]Accession#: [id number] Procedure Requested:[id number] MRA NECK W WO CONTRAST Reason for Exam:dizziness Exam Ordered:09/15/20131832 Exam Date/Time: Check-in Date/Time: MRA of the Neck September 15, 2013 08:08:58 PM Indications: dizziness, headache 2D time of flight MRA of neck without contrast and 3D time of flight MRA of neck with contrast were obtained.15 cc of gadolinium was infused. Reconstructed 3-D images were reviewed as well as coronal source images. The aortic arch , right innominate artery, and left subclavian artery are normal.Evaluation of the proximal left common carotid artery it is limited due to tortuosity. Stenoses cannot be definite excluded. The origins of the vertebral arteries are unremarkable. The right vertebral artery slightly dominant. The carotid bifurcations are unremarkable.No stenosis or occlusion is seen. Procedure Note Interface, Rad Results In - 09/15/2013 10:09 PM CDT Patient: PAMELA VÁSQUEZ Phone#: [facility] Rec#: [id number] Sex#: F # 1940 Cindy#: [id number] Location: [place] [address] Procedure Requested: [id number] MRA NECK W WO CONTRAST Reason for Exam: dizziness Exam Ordered: 09/15/2013 1832 Exam Date/Time: 09/15/20132007 Check-in Date/Time: 09/15/20132007 MRA of the Neck September 15, 2013 08:08:58 PM Indications: dizziness, headache 2D time of flight MRA of neck without contrast and 3D time of flight MRA of neck with contrast were obtained. 15 cc of gadolinium was infused. Reconstructed 3-D images were reviewed as well as coronal source images. The aortic arch , right innominate artery, and left subclavian artery are normal. Evaluation of the proximal left common carotid artery it is limited due to tortuosity. Stenoses cannot be definite excluded. The origins of the vertebral arteries are unremarkable. The right vertebral artery slightly dominant. The carotid bifurcations are unremarkable. No stenosis or occlusion is seen. Impression: Normal evaluation of the carotid bifurcations. Limited evaluation of the proximal left common carotid artery secondary to tortuosity. Stenosis cannot be definitely excluded in this region. Patent vertebral arteries. Dictation Location: [facility] Performing Organization Address City/State/Zipcode Phone Number [facility] * MRI Head w wo contrast (09/15/2013 8:20 PM CDT) Specimen Impressions Performed At IMPRESSION: [place] No acute findings. Chronic microvascular ischemic change. Preliminary report provided by [facility]. Dictation location: [facility] Narrative Performed At Patient: GUERDA VÁSQUEZ Sex#:F # 1940 Cindy#:[id number] [address]#: [id number] Procedure Requested:[id number] MRI HEAD W WO CONTRAST Reason for Exam:dizziness Exam Ordered: Exam Date/Time: Check-in Date/Time: EXAMINATION: MRI OF THE BRAIN WITHOUT CONTRAST CLINICAL INDICATION: Dizziness and altered mental status TECHNIQUE: Multiplanar, multisequence magnetic resonance images of the brain were obtained without contrast. Examination was reviewed by a neuroradiologist. COMPARISON: none FINDINGS: Diffusion weighted images fail to demonstrate evidence of diffusion restriction to suggest acute infarction.The pederson-white differentiation is preserved.The ventricles, sulci, and cisterns are within normal limits of size for the patients age.There is no evidence of mass effect or midline shift. The basal ganglia, brainstem, and cerebellum have a normal MR appearance.The orbits appear grossly unremarkable. There are moderate scattered small foci of signal abnormality within the subcortical and periventricular white matter throughout both cerebral hemispheres, but most likely represents chronic microvascular ischemic sequela in a patient of this age. The visualized paranasal sinuses and mastoid air cells appear clear. Procedure Note Interface, Rad Results In - 09/16/2013 5:22 PM CDT Patient: PAMELA VÁSQUEZ Sex#: F # 1940 Cindy#: [id number] Location: [facility] Procedure Requested: [id number] MRI HEAD W WO CONTRAST Reason for Exam: dizziness Exam Ordered: 09/15/20131930 Exam Date/Time: 09/15/20132020 Check-in Date/Time: 09/15/20132020 EXAMINATION: MRI OF THE BRAIN WITHOUT CONTRAST CLINICAL INDICATION: Dizziness and altered mental status TECHNIQUE: Multiplanar, multisequence magnetic resonance images of the brain were obtained without contrast. Examination was reviewed by a neuroradiologist. COMPARISON: none FINDINGS: Diffusion weighted images fail to demonstrate evidence of diffusion restriction to suggest acute infarction. The pederson-white differentiation is preserved. The ventricles, sulci, and cisterns are within normal limits of size for the patients age. There is no evidence of mass effect or midline shift. The basal ganglia, brainstem, and cerebellum have a normal MR appearance. The orbits appear grossly unremarkable. There are moderate scattered small foci of signal abnormality within the subcortical and periventricular white matter throughout both cerebral hemispheres, but most likely represents chronic microvascular ischemic sequela in a patient of this age. The visualized paranasal sinuses and mastoid air cells appear clear. IMPRESSION: No acute findings. Chronic microvascular ischemic change. Preliminary report provided by [facility]. Dictation location: [facility] Performing Organization Address City/State/Zipcode Phone Number [facility] * MRA Head wo contrast (09/15/2013 8:09 PM CDT) Specimen Impressions Performed At Impression: [facility] Possible mild stenosis of the right P1 segment. Dictation Location: [facility] Narrative Performed At Patient: GUERDA VÁSQUEZ Phone#: med Rec#: [id number] Sex#:F # 1940 Cindy#:[id number] Location:[facility] [place]Accession#: [id number] Procedure Requested:[id number] MRA HEAD WO CONTRAST Reason for Exam:dizzines Exam Ordered: Exam Date/Time: Check-in Date/Time: MRA of the head September 15, 2013 08:09:18 PM Indications: Dizziness Routine 3D time of flight MRA of the head was performed.Reconstructed 3-D images were reviewed as well as axial source images. The vertebral, basilar, and carotid arteries are patent. The intracerebral vessels are patent. There is suggestion of a mild stenosis of the right P1 segment. However, this is at a point of curvature. There are no focalaneurysms identified. Procedure Note Interface, Rad Results In - 09/15/2013 9:45 PM CDT Patient: PAMELA VÁSQUEZ Phone#: [facility] Rec#: [id number] Sex#: Delfino # 1940 Cindy#: [id number] Location: [facility] Procedure Requested: [id number] MRA HEAD WO CONTRAST Reason for Exam: dizzines Exam Ordered: 09/15/2013 1832 Exam Date/Time: 09/15/20132008 Check-in Date/Time: 09/15/20132008 MRA of the head September 15, 2013 08:09:18 PM Indications: Dizziness Routine 3D time of flight MRA of the head was performed. Reconstructed 3-D images were reviewed as well as axial source images. The vertebral, basilar, and carotid arteries are patent. The intracerebral vessels are patent. There is suggestion of a mild stenosis of the right P1 segment. However, this is at a point of curvature. There are no focal aneurysms identified. Impression: Possible mild stenosis of the right P1 segment. Dictation Location: [facility] Performing Organization Address City/State/Zipcode Phone Number [facility] * CT Head wo contrast (09/15/2013 6:00 PM CDT) Specimen Impressions Performed At Impression: [facility] 1. No CT evidence of intracranial hemorrhage, mass, or acute infarct. 2. White matter changes suggestive of chronic small vessel ischemic disease. Narrative Performed At Patient: GUERDA VÁSQUEZ Sex#:Delfino # 1940 Cindy#:[id number] Location:[facility]Accession#: [id number] Procedure Requested:[id number] CT HEAD WO CONTRAST Reason for Exam:dizzy Exam Ordered:09/15/20131740 Exam Date/Time: Check-in Date/Time: CT HEAD WO CONTRAST Date: September 15, 2013 06:01:05 PM Indication:TIA. Technique: Noncontrast CT of the brain was performed with axial images acquired from skull base to vertex. Comparison: February 01, [address] Findings: There are no acute intra or extra-axial fluid collections. The ventricles and subarachnoid spaces are symmetrically prominent compatible with generalized volume loss. No mass effect or midline shift is present. Similar appearingill-defined areas of hypoattenuation are noted within the periventricular deep white matter and are suggestive of chronic small vessel ischemic disease. The visualized portions of the orbits, and paranasal sinuses, and mastoids are normal. No fractures are identified. Topogram demonstrates no lytic lesions or fractures. Procedure Note Interface, Rad Results In - 09/15/2013 6:10 PM CDT Patient: PAMELA VÁSQUEZ Sex#: Delfino # 1940 Cindy#: [id number] Location: [facility] Procedure Requested: [id number] CT HEAD WO CONTRAST Reason for Exam: dizzy Exam Ordered: 09/15/2013 1740 Exam Date/Time: 09/15/2013 180 Check-in Date/Time: 09/15/20131800 CT HEAD WO CONTRAST Date: September 15, 2013 06:01:05 PM Indication: TIA. Technique: Noncontrast CT of the brain was performed with axial images acquired from skull base to vertex. Comparison: February 01, [address] Findings: There are no acute intra or extra-axial fluid collections. The ventricles and subarachnoid spaces are symmetrically prominent compatible with generalized volume loss. No mass effect or midline shift is present. Similar appearing ill-defined areas of hypoattenuation are noted within the periventricular deep white matter and are suggestive of chronic small vessel ischemic disease. The visualized portions of the orbits, and paranasal sinuses, and mastoids are normal. No fractures are identified. Topogram demonstrates no lytic lesions or fractures. Impression: 1. No CT evidence of intracranial hemorrhage, mass, or acute infarct. 2. White matter changes suggestive of chronic small vessel ischemic disease. Performing Organization Address City/State/Zipcode Phone Number [facility] * Electrocardiogram (ECG) (09/15/2013 5:07 PM CDT) Specimen Narrative Performed At [facility] Name PAMELA VÁSQUEZ Date of Birth1940 SexF [id number] Facility [facility] Date 09/15/2013, 17:07:26 66 144 88 [phone] 66 50 -55 -15 24 31 - BORDERLINE ECG - SINUS RHYTHM normal P axis, V-rate 50-99 PROBABLE LEFT ATRIAL ABNORMALITY P \\T\\gt;50mS, \\T\\lt;-0.10mV V1 BORDERLINE LEFT AXIS DEVIATION QRS axis (-15,-29) FINAL REPORT Procedure Note Interface, External Ris In - 09/22/2013 2:00 PM CDT Name PAMELA VÁSQUEZ Date of 1940 Sex F Visit [id number] Facility [facility] Date 09/15/2013, 17:07:26 66 144 88 400 420 66 50 -55 -15 24 31 - BORDERLINE ECG - SINUS RHYTHM normal P axis, V-rate 50-99 PROBABLE LEFT ATRIAL ABNORMALITY P \\T\\gt;50mS, \\T\\lt;-0.10mV V1 BORDERLINE LEFT AXIS DEVIATION QRS axis (-15,-29) FINAL REPORT Performing Organization Address City/[facility] Phone Number [facility] * Prothrombin Time/INR (09/15/2013 5:05 PM CDT) Pathologist [facility] Protime 12.5 11.7 - 14.3 sec [facility] INR 1.0 0.9 - 1.1 [facility] Specimen Blood Performing Organization Address [facility] Cent[facility]ode Phone Number [facility] [address] [place], [place] [id number] * Troponin (09/15/2013 5:05 PM CDT) [facility] Troponin <0.01 0.00 - 0.03 ng/mL [facility] Comment: [facility] Troponin ValueInterpretation 0.00 - 0.03 Healthy 0.04 - 0.12 Increased Cardiac Risk >0.12M yocardial Infarction Troponin may not become elevated until 6 to 8 hours after onset of symptoms. Specimen Blood Performing Organization Address [facility] Centercode Phone Number [facility] [address] [place] [address] * Comprehensive Metabolic Panel (09/15/2013 5:05 PM CDT) Pathologist [facility] Sodium 142 133 - 147 MEQ/L [facility] Potassium 4.3 3.5 - 5.3 MEQ/L [facility] Chloride 102 96 - 112 MEQ/L [facility] Carbon Dioxide 27 20 - 32 MEQ/L [facility] Anion Gap 12 5 - 17 [facility] Calcium 9.1 8.4 - 10.5 mg/dL [facility] Glucose 98 70 - 100 mg/dL [facility] Protein Total 6.8 6.0 - 8.2 g/dL [facility] Serum [facility] Albumin 4.2 3.5 - 5.0 g/dL [facility] Alkaline 90 42 - 140 IU/L [facility] Phosphatase [facility] Alanine 38 13 - 69 IU/L [facility] Aminotransferas [facility] e Aspartate 45 15 - 46 IU/L [facility] Aminotransferas [facility] e Bilirubin Total 0.5 0.2 - 1.3 mg/dL [facility] Blood Urea 20 7 - 26 mg/dL [facility] Nitrogen [facility] Creatinine 0.7 0.4 - 1.1 mg/dL [facility] eGFR Female AA 99 [facility] Comment: [facility] Chronic Kidney Disease less than 60 mL/min/1.73 sq.m Kidney failure less than 15 mL/min/1.73 sq.m eGFR Female 82 [facility] Non-AA Comment: [facility] Chronic Kidney Disease less than 60 mL/min/1.73 sq.m Kidney failure less than 15 mL/min/1.73 sq.m Specimen Blood Performing Organization Address City/State/Zipcode Phone Number [facility] [address] [place] [address] * Complete Blood Count and Differential (manual count if needed) (09/15/2013 5:05 PM CDT) WBC 10.44 4.00 - 11.00 TH/uL [facility] RBC 4.36 4.00 - 5.00 MIL/uL [facility] Hemoglobin 13.9 12.0 - 15.0 g/dL [facility] Hematocrit 42 36 - 45 % [facility] MCV 95 80 - 99 fL [facility] MCH 32 27 - 34 pg [facility] MCHC 34 32 - 36 % [facility] RDW 11.9 9.0 - 14.5 % [facility] Platelet Count 267 140 - 400 TH/uL [facility] MPV 10.5 9.4 - 12.3 fL [facility] Nucleated RBCs 0 0 - 0 /100 [facility] % Neutrophils 53 45 - 78 % [facility] %Lymphocytes 35 15 - 47 % [facility] %Monocytes 10 0 - 12 % [facility] %Eosinophils 0 0 - 7 % [facility] %Basophils 1 0 - 2 % [facility] % Imm Grans 0 0 - 1 % [facility] # Granulocytes 5.59 1.70 - 6.80 TH/uL [facility] # Lymphocytes 3.68 (H) 1.00 - 3.30 TH/uL [facility] # Monocytes 1.08 (H) 0.20 - 0.90 TH/uL [facility] # Eosinophils 0.03 0.00 - 0.40 TH/uL [facility] # Basophils 0.07 0.00 - 0.10 TH/uL [facility] Specimen Blood Performing Organization Address City/State/Zipcode Phone Number [facility] [address] [place] [address] documented in this encounter Visit Diagnoses Diagnosis Vertigo - Primary Dizziness and giddiness documented in this encounter Administered Medications Action Date Dose Rate Site Medication Order MAR Action 09/15/2013 8:00 PM CDT 5 mg diazepam (VALIUM) syringe 5 mg Given 5 mg, Intravenous, Once, Wed09/15/13 at 1957, For 1 dose 09/15/2013 8:20 PM CDT 15 mL gadobenate dimeglumine (MULTIHANCE) 529 Given mg/mL (0.1 mmol/0.2 mL) injection 1-20 mL 1-20 mL, Intravenous, Once in imaging, contrast, Starting Wed09/15/13 at 1945, For 1 dose 09/15/2013 7:09 PM CDT 25 mg meclizine (ANTIVERT) tablet 25 mg Given 25 mg, Oral, Once, Wed09/15/13 at 1905, For 1 dose 09/15/2013 7:07 PM CDT 4 mg ondansetron (ZOFRAN) 4 mg/2 mL injection Given 4 mg 4 mg, Intravenous, Once, Wed09/15/13 at 1905, For 1 dose 09/15/2013 7:51 PM CDT 4 mg ondansetron (ZOFRAN) 4 mg/2 mL injection Given 4 mg 4 mg, Intravenous, Once, Wed09/15/13 at 1951, For 1 dose documented in this encounter
[2018-11-10] MEDS ORDERED: fentaNYL INJECTION 100 MCG/2 ML AMP IVP PRN (17:45)
[2018-11-10] MEDS ORDERED: LACTATED RINGERS 1,000 ML IV SCH (17:45)
--- OUTSIDE RECORDS SUMMARY | 2018-11-10 17:45 | XMS REPORT | Encounter Summary ---
Author Author [facility] Organization [facility] Address Unknown Phone Unavailable Care Team Providers Care Pit Laborer Name Role Phone Ange Frazier MD PCP Encounter Details Care Team Description Date Type Department Slnc, Historical [facility] Social History Date Tobacco Use Types Packs/Day Years Used Never Assessed Sex Assigned at Date Recorded Not on file Industry Job Start Date Occupation Not on file Not on file Not on file Travel End Travel History Travel Start No recent travel history available. documented as of this encounter Last Filed Vital Signs Reading Time Taken Comments Vital Sign 142/75 05/31/2012 1:18 PM [facility] Blood Pressure 70 05/31/2012 1:18 PM [facility] Pulse - - Temperature - - Respiratory Rate - - Oxygen Saturation - - Inhaled Oxygen Concentration 63.5 kg (140 lb) 05/31/2012 1:18 PM [facility] Weight - - Height 24.8 05/20/2012 1:24 PM [facility] Body Mass Index documented in this encounter Plan of Treatment Not on filedocumented as of this encounter Visit Diagnoses Not on filedocumented in this encounter
--- OUTSIDE RECORDS SUMMARY | 2018-11-10 17:45 | XMS REPORT | Encounter Summary ---
Author Author [facility] Organization [facility] Address Unknown Phone Unavailable Care Team Providers Care Mammal Keeper Name Role Phone Ange Frazier MD PCP Encounter Details Care Team Description Date Type Department Oseas Martins MD [address] [place] [address] 05/07/2012 [facility] Visit Social History [...]
--- OUTSIDE RECORDS SUMMARY | 2018-11-10 17:45 | XMS REPORT | Encounter Summary ---
Author Author [facility] Organization [facility] Address Unknown Phone Unavailable Care Team Providers Care Unemployment Specialist Name Role Phone Ange Frazier MD PCP Encounter Details Care Team Description Date Type Department Oseas Martins MD [address] [place] [address] 06/22/2013 [facility] Visit Social History [...]
--- OUTSIDE RECORDS SUMMARY | 2018-11-10 17:45 | XMS REPORT | Encounter Summary ---
Author Author [facility] Organization [facility] Address Unknown Phone Unavailable Care Team Providers Care Citrix Systems Administrator Name Role Phone Ange Frazier MD PCP Encounter Details Care Team Description Date Type Department Heavenly Diego, RN ANP [address] [facility] [address] [place] [address] [phone] 08/11/2013 [facility] - [facility] Visit Social History Date [...]
--- OUTSIDE RECORDS SUMMARY | 2018-11-10 17:45 | XMS REPORT | Encounter Summary ---
Author Author [facility] Organization [facility] Address Unknown Phone Unavailable Care Team Providers Care Screen Printing Supervisor Name Role Phone Ange Frazier MD PCP Encounter Details Care Team Description Date Type Department Oseas Martins MD [address] [place] [address] 07/25/2013 [facility] [...]
--- OUTSIDE RECORDS SUMMARY | 2018-11-10 17:45 | XMS REPORT | Encounter Summary ---
Author Author [facility] Organization [facility] Address Unknown Phone Unavailable Care Team Providers Care Funeral Limousine Driver Name Role Phone Ange Frazier MD PCP Encounter Details Care Team Description Date Type Department [facility] ProviderJavon MD 05/17/2012 [facility] Result Social History Date Tobacco Use Types Packs/Day [...] Procedure Name Priority Date/Time Associated Diagnosis CV MPI SPECT HISTORICAL Routine 05/17/2012 documented in this encounter Results * CV MPI SPECT historical (05/17/2012) Specimen Narrative Performed At Procedure Category: NUC [facility] Procedure: Symptom Limited Exer Regadenoson TC-99M Sestamibi Stress Only Procedure Summary: Exertional chest pain leading to premature discontinuation of exercise. Achievement of only 5.4 minutes and 4.6 METs of activity without ST changes or arrhythmias. Regadenoson was therefore injected in order to augment myocardial blood flow.No ischemia and no regions of myocardial injury as per myocardial perfusion images.Left ventricular ejection fraction normal at 79%. Procedure Note Interface, Rad Conversion - 11/17/2014 1:58 PM CDT Procedure Category: NUC Procedure: Symptom Limited Exer Regadenoson TC-99M Sestamibi Stress Only Procedure Summary: Exertional chest pain leading to premature discontinuation of exercise. Achievement of only 5.4 minutes and 4.6 METs of activity without ST changes or arrhythmias. Regadenoson was therefore injected in order to augment myocardial blood flow.No ischemia and no regions of myocardial injury as per myocardial perfusion images.Left ventricular ejection fraction normal at 79%. Performing Organization Address City/State/Zipcode Phone Number [facility] documented in this encounter Visit Diagnoses Not on filedocumented in this encounter
--- OUTSIDE RECORDS SUMMARY | 2018-11-10 17:45 | XMS REPORT | Encounter Summary ---
Author Author [facility] Organization [facility] Address Unknown Phone Unavailable Care Team Providers Care Bike Shop Manager Name Role Phone PCP Unavailable Encounter Details Care Team Description Date Type Department Oseas Martins MD [facility] [address] [address] Other dyspnea and respiratory abnormality 05/17/[address] [address] Social History Date Tobacco Use Types Packs/Day [...] 0 (GLUCOSAMINE MSM) 1,500-500 mg/30 mL Liqd 02/23/2012 multivitamin (THERAGRAN) 1 po daily 30 0 per tablet 02/23/2012 11/21/2014 clopidogrel (PLAVIX) 75 take 1 tablet 30 0 mg tablet (75MG) by oral route every day 02/23/2012 11/21/2014 esomeprazole (NEXIUM) 40 take 1 30 0 MG capsule capsule (40MG) by oral route every day 02/23/2012 11/21/2014 levothyroxine (SYNTHROID) take 1 tablet 30 0 125 MCG tablet (125MCG) by oral route every day 03/21/2012 12/04/2014 lisinopril take 1 tablet 30 [...] (25MG) by tablet oral route every day 03/07/2012 [...] Name Priority Date/Time Associated Diagnosis CV MPI PHARMACOLOGIC Routine 05/17/2012 SPECT REST STRESS 8:30 AM PERSONAL ASSISTANT documented in this encounter Results * CV MPI Pharmacologic Spect rest stress (05/17/2012 8:30 AM PERSONAL ASSISTANT) Specimen Narrative Performed At NAME: PAMELA VÁSQUEZ [facility] [place] :[id number] AGE: 71 GENDER:F ACCOUNT NUM:[id number] TEST:STRESS ONLY SYMPTOM LIMITED EXERCISE/REGADENOSON SESTAMIBI SPECT SCINTIGRAPHIC REPORT TEST DATE: TEST LOCATION:J REFERRING PHYSICIAN: Oseas Martins MD SUPERVISING PHYSICIAN: Jt Rod MD MEDICATIONS MEDS LAST 24 HOURS: N/A MEDS HELD LAST 24 HOURS: Metoprolol, ASA, Pravastatin, Synthroid, Multi Vit, Glucosamine, Nexium, Alavert, Calcium+D ALLERGIES: sulfa HOURS SINCE LAST CAFFEINE: 24 INDICATIONS FOR TEST: Shortness of Breath/Dyspnea, Hyperlipidemia, Hypertension REASON FOR PHARMICOLOGICAL STRESS: Limiting Symptoms PROCEDURAL NOTE: After a four-hour fast, an intravenous line was inserted and an infusion of normal saline was started.The patient was exercised utilizing a standard Tera protocol.At the second minute a total of 0.4mg regadenoson was injected over 10 seconds at a dosage of 0.08mg/ml immediately followed by a 5ml normal saline flush.Within 20 seconds, 9.3 mCi of Tc-99m sestamibi was injected intravenously.The patient exercised for a total of 5.4 minutes achieving 4.6MET level.Thirty minutes later, 180 degree arc gated tomographic imaging (16 frames per cycle) was begun in the supine position. <B>CLINICAL RESPONSE:</B>The heart rate at rest was 72 beats per minute. After the regadenoson infusion the heart rate was 153 beats per minute.The blood pressure at baseline was 152/78 mmHg.At the end of the regadenoson i nfusion it was 158/78 mmHg.The patient experienced the following symptoms during the test: dizzy/lightheaded, shortness of breath, headache, nausea, throat tightness. MARSHALL TREADMILL SCORE: N/A ECG Findings:The resting electrocardiogram showed sinus rhythm, RSR pattern in leads V1 and V2. Significant ST changes did not occur. There were no arrhythmias. Scintographic Findings:The images were normal. All toney thickened and contracted normally. Left ventricular ejection fraction was 79%. IN SUMMARY, the clinical, electrocardiographic, and scintigraphic findings in this 71-year-old female being evaluated for possible CAD using regadenoson are as follows: 1. Clinical response:Non-Diagnostic (Regadenoson) 2. Electrocardiographic response: Non-Ischemic 3. Scintigraphic response: Non-Ischemic COMBINED TEST RESULTS:Exertional chest pain leading to premature discontinuation of exercise. Achievement of only 5.4 minutes and 4.6 METs of activity without ST changes or arrhythmias. Regadenoson was therefore injected in order to augment myocardial blood flow.No ischemia and no regions of myocardial injury as per myocardial perfusion images.Left ventricular ejection fraction normal at 79%. Fede Madera MD [address] , [address] [place] [address] DICTATED DATE: 2012-05-17 00:00:00.0 WORKERS COMPENSATION ADMINISTRATOR DATETIME: 2012-05-17 12:13:01.0 ACTUAL TEST TIME: PROVIDER APPROVAL DATETIME: 2012-05-17 12:13:37.0 Procedure Note Interface, Rad Conversion - 06/27/2013 11:21 AM CDT NAME: PAMELA VÁSQUEZ : [id number] AGE: 71 GENDER: F ACCOUNT NUM: [id number] TEST: STRESS ONLY SYMPTOM LIMITED EXERCISE/REGADENOSON SESTAMIBI SPECT SCINTIGRAPHIC REPORT TEST DATE: TEST LOCATION: REFERRING PHYSICIAN: Oseas Martins MD SUPERVISING PHYSICIAN: Jt Rod MD MEDICATIONS MEDS LAST 24 HOURS: N/A MEDS HELD LAST 24 HOURS: Metoprolol, ASA, Pravastatin, Synthroid, Multi Vit, Glucosamine, Nexium, Alavert, Calcium+D ALLERGIES: sulfa HOURS SINCE LAST CAFFEINE: 24 INDICATIONS FOR TEST: Shortness of Breath/Dyspnea, Hyperlipidemia, Hypertension REASON FOR PHARMICOLOGICAL STRESS: Limiting Symptoms PROCEDURAL NOTE: After a four-hour fast, an intravenous line was inserted and an infusion of normal saline was started. The patient was exercised utilizing a standard Tera protocol. At the second minute a total of 0.4mg regadenoson was injected over 10 seconds at a dosage of 0.08mg/ml immediately followed by a 5ml normal saline flush. Within 20 seconds, 9.3 mCi of Tc-99m sestamibi was injected intravenously. The patient exercised for a total of 5.4 minutes achieving 4.6 MET level. Thirty minutes later, 180 degree arc gated tomographic imaging (16 frames per cycle) was begun in the supine position. <B>CLINICAL RESPONSE:</B> The heart rate at rest was 72 beats per minute. After the regadenoson infusion the heart rate was 153 beats per minute. The blood pressure at baseline was 152/78 mmHg. At the end of the regadenoson infusion it was 158/78 mmHg. The patient experienced the following symptoms during the test: dizzy/lightheaded, shortness of breath, headache, nausea, throat tightness. MARSHALL TREADMILL SCORE: N/A ECG Findings: The resting electrocardiogram showed sinus rhythm, RSR pattern in leads V1 and V2. Significant ST changes did not occur. There were no arrhythmias. Scintographic Findings: The images were normal. All toney thickened and contracted normally. Left ventricular ejection fraction was 79%. IN SUMMARY, the clinical, electrocardiographic, and scintigraphic findings in this 71-year-old female being evaluated for possible CAD using regadenoson are as follows: 1. Clinical response: Non-Diagnostic (Regadenoson) 2. Electrocardiographic response: Non-Ischemic 3. Scintigraphic response: Non-Ischemic COMBINED TEST RESULTS: Exertional chest pain leading to premature discontinuation of exercise. Achievement of only 5.4 minutes and 4.6 METs of activity without ST changes or arrhythmias. Regadenoson was therefore injected in order to augment myocardial blood flow.No ischemia and no regions of myocardial injury as per myocardial perfusion images.Left ventricular ejection fraction normal at 79%. Fede Madera MD [address] [facility], [address] [place] [address] DICTATED DATE: 2012-05-17 00:00:00.0 WORKERS COMPENSATION ADMINISTRATOR DATETIME: 2012-05-17 12:13:01.0 ACTUAL TEST TIME: PROVIDER APPROVAL DATETIME: 2012-05-17 12:13:37.0 Performing Organization Address City/State/Zipcode Phone Number [facility] [place] [facility] [address] [facility] [place] [address] documented in this encounter Visit Diagnoses Diagnosis Other dyspnea and respiratory abnormality documented in this encounter
--- OUTSIDE RECORDS SUMMARY | 2018-11-10 17:45 | XMS REPORT | Encounter Summary ---
Author Author [facility] Organization [facility] Address Unknown Phone Unavailable Care Team Providers Care Book Sewing Machine Operator Name Role Phone Ange Frazier MD PCP Encounter Details Care Team Description Date Type Department [facility] Javon Gamboa MD 05/17/2012 [facility] - Hist [facility] Visit Social History Date Tobacco Use Types Packs/Day Years Used Never Assessed Sex Assigned at Date Recorded Not on file Industry Job Start Date Occupation Not on file Not on file Not on file Travel End Travel History Travel Start No recent travel history available. documented as of this encounter Progress Notes * [facility] Javon Gamboa MD - 05/17/2012 3:00 PM [facility] Office [address] [place] [address] Holter Report 05/17/2012 3:00 PM Ange Frazier MD [address] [address] RE: PAMELA VÁSQUEZ : 1940 Chart #: [id number] Medications: Lisinopril 10 Mg take 1 tablet (10MG) by oral route every day Metoprolol Succinate 50 Mg take 1 tablet (50MG) by oral route every day Nexium 40 Mg take 1 capsule (40MG) by oral route every day Alavert 5 Mg-120 Mg take 1 tablet by oral route every 12 hours Synthroid 125 Mcg take 1 tablet (125MCG) by oral route every day Low Dose Aspirin Ec 81 Mg take 1 tablet (81MG) by oral route every day Multivitamins 1 po daily Calcium 500 + Vit D 500 Mg Calcium (1,250 Mg)-400 Unit 2 po daily Pravastatin Sodium 40 Mg take 1 tablet (40MG) by oral route every day Glucosamine Msm 1,500 Mg-500 Mg/30 Ml 2 po daily Reason for holter: palpitations Length of recordin hours 2 minutes with 2 minutes of artifact. Maximum heart rate:114. Minimum heart rate: 60. Average heart rate: 72. Predominant Rhythm: sinus A V Conduction: normal Pauses: None Supraventricular arrhythmias: APC - occasional (1-30/hour) Ventricular Arrhythmias: Average number of PVC: 0 Symptoms: no clear correlation of symptoms with dysrhythmias Conclusions: Normal holter monitor AVG HR 72, range 60-114 No VPB's and only an occasional SVPB without SVT, AF No bradycardia, heart block or pauses Sincerely, Oseas Martins M.D. documented in this encounter Plan of Treatment Not on filedocumented as of this encounter Visit Diagnoses Not on filedocumented in this encounter
--- OUTSIDE RECORDS SUMMARY | 2018-11-10 17:45 | XMS REPORT | Encounter Summary ---
Author Author [facility] Organization [facility] Address Unknown Phone Unavailable Care Team Providers Care Pbx Supervisor Name Role Phone PCP Unavailable Encounter Details Care Team Description Date Type Department Oseas Martins MD [facility] [address] [address] 03/15/2012 [facility] 05/05/[id number] [place] [address] Social History Date Tobacco Use Types Packs/Day [...]
--- OUTSIDE RECORDS SUMMARY | 2018-11-10 17:45 | XMS REPORT | Encounter Summary ---
Author Author [facility] Organization [facility] Address Unknown Phone Unavailable Care Team Providers Care Promotional Advertising Assistant Name Role Phone Ange Frazier MD PCP Encounter Details Care Team Description Date Type Department Oseas Martins MD [address] [address] 05/20/2012 [facility] Visit Social History Date Tobacco Use Types Packs/Day Years Used Never Assessed Sex Assigned at Date Recorded Not on file Industry Job Start Date Occupation Not on file Not on file Not on file Travel End Travel History Travel Start No recent travel history available. documented as of this encounter Last Filed Vital Signs Reading Time Taken Comments Vital Sign 130/74 05/20/2012 1:24 PM BARREL BUNG REMOVER AND DUMPER Blood Pressure 76 05/20/2012 1:24 PM BARREL BUNG REMOVER AND DUMPER Pulse - - Temperature - - Respiratory Rate - - Oxygen Saturation - - Inhaled Oxygen Concentration 65.8 kg (145 lb) 05/20/2012 1:24 PM BARREL BUNG REMOVER AND DUMPER overweight Weight 160 cm (5' 3") 05/20/2012 1:24 PM BARREL BUNG REMOVER AND DUMPER Height 25.69 05/20/2012 1:24 PM BARREL BUNG REMOVER AND DUMPER Body Mass Index documented in this encounter Progress Notes * Oseas Martins MD - 05/20/2012 1:30 PM BARREL BUNG REMOVER AND DUMPER [facility] Office [address] [place] [id number] May 20, 2012 Ange Frazier MD [address] [address] RE: PAMELA VÁSQUEZ : 1940 Chart #: [id number] Visit provider: Oseas Martins M.D. Visit location: [facility] Dear Dr. Frazier: I had the pleasure of seeing PAMELA VÁSQUEZ in the office today. She is 71 years o f age and presents for follow up on test results, follow up on medications. HPI: I saw Pamela back in the office today. She had been hospitalized in the fall wit h near syncope and severe hypotension. She had an upper respiratory infection a nd it was felt that she was volume-depleted. There was some question whether bonifacio alcaraz had had a TIA but the CT and MRI were both normal and there was no significant carotid disease. A RAMIRO did show a trivial PFO with only a few bubbles crossing the septum. The blood pressure was quite labile. She had had some palpitation s. The TSH level was low and Pamela tells me you have adjusted the Synthroid dos e downward to 112 mcg per day with a normal TSH done in follow up. Problem List: 05/17/2012 Arrhythmia Holter Normal Holter monitor AVG HR 72, range 60-114 No VPBs and only an occasional SVPB without SVT, AF No bradycardia, heart block or pauses Congenital heart disease-Patent foramen ovale 05/17/2012 COR SPECT Exertional chest pain leading to premature discontinuation of exercise. Achievement of only 5.4 minutes and 4.6 METs of activity without ST changes or arrhythmias. Regadenoson was therefore injected in order to augment myocardial blood flow.No ischemia and no regions of myocardial injury as per evi cardial perfusion images.Left ventricular ejection fraction normal at 79%. 02/18/2012 [...] History: Total Knee Replacement Right Cataract Surgery Final Medications: Synthroid 112 Mcg take 1 tablet (112MCG) by oral route every day Lisinopril 10 Mg take 1 tablet (10MG) by oral route every day Metoprolol Succinate 50 Mg take 1 tablet (50MG) by oral route every day Low Dose Aspirin EC 81 Mg take 1 tablet (81MG) by oral route every day Multivitamin 1 po daily Calcium 500 + Vit D 500 Mg Calcium (1,250 Mg)-400 Unit 2 po daily Pravastatin Sodium 40 Mg take 1 tablet (40MG) by oral route every day Glucosamine Msm 1,500 Mg-500 Mg/30 Ml 2 po daily Allergies/Intolerances: Allergy Reaction Latex Rash Adhesive Rash Sulfa Rash Family History: Sister Diagnosed with HTN Mother Cause of was at age 86. Father Cause of was CAD at age 68. Social History: Marital Status: Children: 3 Occupation: Retired Diet: Regular Exercise: Active Lifestyle Tobacco: None Alcohol: Currently drinks 3 of hard liquor socially Caffeine: Caffeine use: 1 cup of coffee ROS: 12-point review of systems is negative with the following exceptions: Constitutional: Fatigue, Night sweats Pulmonary: Daytime drowsiness /STRUCTURAL STEEL WORKER: Postmenopausal Musculoskeletal/Dermatology: Myalgias, Arthralgias, Skin rash Hematology: Bleed or bruise easily Endocrine/Psych: Cold intolerance Physical Exam: Vital Signs The patient is 5ft 3in tall, and weighs 145lbs. The BMI is 25.70. Blood pressure taken in the left arm is 130/74 mmHg in the sitting position. The pulse is 76. The rhythm is regular. Const The patient is an overweight female. HEENT The pupils are equal and round. The patient's sclerae are clear. There is no corneal arcus. There are no xanthelasmas noted. Bilateral hearing loss - severe Pulm Lungs are clear to auscultation. Cardiac Regular rate and rhythm. Normal S1 and S2. No murmur, rub, or gallop present. Vasc Distal pulses 2+ throughout with no carotid bruits noted. EXT The extremities are warm to touch. No clubbing is present. No cyanosis is observed. There is no edema noted. M/S The patient's gait is normal. No joint or spine deformities are noted. Most Recent Lipids Available for Review: Date Collected: 02/02/2012 Fasting: Fasting Total Cholesterol: 145 HDL: 39 LDL: 88 Triglycerides: 90 Ratio: 3.72 Impression and Plan: 1. Hypertension with good control. 2. Previous episode of hypotension and near syncope, likely volume depletion wit hout any recurring symptoms. 3. Unremarkable Holter monitor. 4. Hypothyroidism treated with Synthroid. 5. Dyslipidemia with reasonable control on low dose of pravastatin, 40 mg per da y. I have no changes to make in her current therapy. She seems to be doing well. I have reviewed the Holter monitor and there was no ectopy of significance nor a ny periods of profound bradycardia or heart block. Pacemaker will not be needed . I would like to see her back in a year. We will continue her same medication s. I would be happy to see her sooner if the need should arise. Prior to her h ospital admission, she had been on higher doses of lisinopril but even on the 10 mg dose her pressures are quite acceptable. Follow up: Oseas Martins M.D. 1 Year Thank you for allowing me to participate in PAMELA VÁSQUEZ's care. If I can be of any further assistance, please do not hesitate to contact me. Sincerely, Oseas Martins M.D. DLS/tls F: 05/31/2012 EL BUNG REMOVER AND DUMPER documented in this encounter Plan of Treatment Not on filedocumented as of this encounter Visit Diagnoses Not on filedocumented in this encounter
--- OUTSIDE RECORDS SUMMARY | 2018-11-10 17:45 | XMS REPORT | Encounter Summary ---
Author Author [facility] Organization [facility] Address Unknown Phone Unavailable Care Team Providers Care Government Property Inspector Name Role Phone Ange Frazier MD PCP Encounter Details Care Team Description Date Type Department Oseas Martins MD [address] [place] [address] 04/17/2013 [facility] - Hist [facility] [...]
--- OUTSIDE RECORDS SUMMARY | 2018-11-10 17:45 | XMS REPORT | Encounter Summary ---
Author Author [facility] Organization [facility] Address Unknown Phone Unavailable Care Team Providers Care Camera Assembler Name Role Phone PCP Unavailable Encounter Details Care Team Description Date Type Department Oseas Martins MD [facility] [address] [address] 05/06/2012 [facility] 06/08/[id number] [place] [address] Social History Date Tobacco Use Types Packs/Day [...] capsule (40MG) by oral route every day 05/20/2012 11/21/2014 [...]
--- OUTSIDE RECORDS SUMMARY | 2018-11-10 17:45 | XMS REPORT | Encounter Summary ---
Author Author [facility] Organization [facility] Address Unknown Phone Unavailable Care Team Providers Care Air Launch Weapons Technician Name Role Phone Ange Frazier MD PCP Encounter Details Care Team Description Date Type Department Ivan Morrow MD No Forwarding Address 11/29/2012 Hist-Visit [facility] Social History Date Tobacco Use Types Packs/Day Years Used Never Assessed Sex Assigned at Date Recorded Not on file Industry Job Start Date Occupation Not on file Not on file Not on file Travel End Travel History Travel Start No recent travel history available. documented as of this encounter Last Filed Vital Signs Reading Time Taken Comments Vital Sign 137/60 11/29/2012 1:16 PM CDT Blood Pressure 63 11/29/2012 1:16 PM CDT Pulse 36.6 C (97.9 F) 11/29/2012 1:16 PM CDT Temperature - - Respiratory Rate - - Oxygen Saturation - - Inhaled Oxygen Concentration 68.5 kg (151 lb) 11/29/2012 1:16 PM CDT Weight 160 cm (5' 3") 11/29/2012 1:16 PM CDT Height 26.75 11/29/2012 1:16 PM CDT Body Mass Index documented in this encounter Progress Notes * Ivan Morrow MD - 11/29/2012 1:53 PM CDT . : 01:53pm .T: Return Patient .PV: [facility] [address] [place] [address] [facility] [address] [place] [address] [place], [place] [address] [place] [address] [place] [address] Celi Morrow M.D. Ivan Morrow M.D. Ann Cuello M.D. Rachelle Prabhakar M.D. Bindu Mathias D.O. Junior Simpson M.D. Jodi Moore M.D. Angelika Amaya M.D. Neal Castro M.D. Clarisse Bryson, MSN,RN,ANP, [facility] Juan José Colbert M.D., Ph.D. Dat Jewell M.D. Bridger Velazco M.D. . 11/29/12 Ange Frazier MD [address] [address] RE: Sydnee Love : [address] Frazier: I saw your patient Sydnee Love, date of 42 today in neurological [facility]. The following medication was reported to me by the patient and may assist you: P1 Current Medications: Rx: MULTI VITAMIN 1 daily Rx: CALCIUM + D 3 daily Rx: MOVE FREE 1 daily Rx: LISINOPRIL 10mg 1 daily Rx: SYNTHROID 112mcg 1 daily Rx: BABY ASPIRIN 1 tab daily Rx: METOPROLOL 50mg 1/ - 1 tab daily The patient's vital signs taken today in my office are as follows: Bp: 137/60, Right Arm, Pulse: 63 Temperature: 97.9 F, Height: 5'3", Weight: 151 lbs Sydnee Love was seen in follow up on 11/29/12 at our [facility] for continued evaluation of cerebrovascular disease with prominent vasovagal episode in 2011 with resting blood pressure in the 50s to 70s. She remains on aspi rin 81mg daily. Her blood pressure regimen has been changed to allow for these drops. She is on Lisinopril 10mg a day down from 20mg, and Metoprolol was added several months ago currently at 50mg daily. Her blood pressure is less than 120 when she was supposed to take the Metoprolol, she would only take 25mg. As you know, she has a very tiny PFO and atrial septal aneurysm by electrocardiogram. Her carotid/vertebral doppler study was normal. She has old left basal ganglia areas of ischemia on her head CT. There was nothing acute in January 2012. She does have arthritic type pain in the right arm which comes and goes. She has hypertension, dyslipidemia. Her examination shows normal strength and dexterity in the upper and lower extremities. She has had bunion surgery on the right f oot. Sensation remains intact. After full discussion, we decided to maintain the aspirin 81mg daily with good c ontrol of blood pressure and cholesterol. Hopefully her blood pressure will rem ain stable enough to allow for any drops upon standing. I will see her as pastora ascencio Sincerely, :drew CC: Oseas Martins M.D. [address] [address] [place] [address] # SIGNED BY Ivan Morrow MD ([facility]) 11/29/2012 06:26PM documented in this encounter Plan of Treatment Not on filedocumented as of this encounter Visit Diagnoses Not on filedocumented in this encounter
--- OUTSIDE RECORDS SUMMARY | 2018-11-10 17:45 | XMS REPORT | Encounter Summary ---
Author Author [facility] Organization [facility] Address Unknown Phone Unavailable Care Team Providers Care El Teacher Name Role Phone Ange Frazier MD PCP Encounter Details Care Team Description Date [place] [address] [facility] [address] [place] [address] [phone] 05/10/2012 [facility] - Hist [facility] Visit Social [...]
--- OUTSIDE RECORDS SUMMARY | 2018-11-10 17:45 | XMS REPORT | Encounter Summary ---
Author Author [facility] Organization [facility] Address Unknown Phone Unavailable Care Team Providers Care Automatic Centrifugal Station Operator Name Role Phone Ange Frazier MD PCP Encounter Details Care Team Description Date Type Department Oseas Martins MD [address] [address] 06/15/2013 [facility] Visit Social History Date Tobacco Use Types Packs/Day Years Used Never Assessed Sex Assigned at Date Recorded Not on file Industry Job Start Date Occupation Not on file Not on file Not on file Travel End Travel History Travel Start No recent travel history available. documented as of this encounter Progress Notes * Oseas Martins MD - 06/15/2013 12:12 PM AIR HAMMER OPERATOR STAT 2ND REQUEST Release of Information RE: PAMELA VÁSQUEZ : 1940 [facility] is requesting protected health informat ion from: Dr. Ange Frazier Purpose: Continuation of care Please release records to the following [facility] Office: [facility] Office [address] [place] [address] Fax to : Attention : Chart Thermoplastic Technician--Shiela PH: [phone] Martins on 06/19 for his annual appointment, Please send the following: Most recent office visit letter, EKG, labs, including cholesterol, any cardiac t esting and/ or procedures, and most recent medication list. Thank you for your prompt attention to [...] above address via the U.[employer]. Postal Service. HAMMER OPERATOR documented in this encounter Plan of Treatment Not on filedocumented as of this encounter Visit Diagnoses Not on filedocumented in this encounter
--- OUTSIDE RECORDS SUMMARY | 2018-11-10 17:45 | XMS REPORT | Encounter Summary ---
Author Author Organization Address Unknown Phone Unavailable Care Team Providers Care Railroad Firer Name Role Phone Ange Frazier MD PCP Encounter Details Care Team Description Date Type Department Oseas Martins MD [address] [address] 08/10/2013 [facility] - Hist [facility] Visit Social History Date Tobacco Use Types Packs/Day Years Used Never Assessed Sex Assigned at Date Recorded Not on file Industry Job Start Date Occupation Not on file Not on file Not on file Travel End Travel History Travel Start No recent travel history available. documented as of this encounter Progress Notes * Oseas Martins MD - 08/10/2013 1:49 PM CDT Release of Information RE: PAMELA VÁSQUEZ : 1940 [facility] is requesting protected health informat ion from: Dr. Ange Frazier Purpose: Continuation of care Please release records to the following [facility] Office: [facility] Office [address] [place] [address] Fax to : Attention : Chart [employer] Membership Sales Agent--Shiela PH: [phone] Martins on 08/15 for her annual appointment, Please send the following: Most [...]
--- OUTSIDE RECORDS SUMMARY | 2018-11-10 17:45 | XMS REPORT | Encounter Summary ---
Author Author [facility] Organization [facility] Address Unknown Phone Unavailable Care Team Providers Care Caseworker Protective Services Name Role Phone Ange Frazier MD PCP Encounter Details Care Team Description Date Type Department Ivan Morrow MD No Forwarding Address 05/31/2012 Hist-Visit [facility] Social History Date Tobacco Use Types Packs/Day Years Used Never Assessed Sex Assigned at Date Recorded Not on file Industry Job Start Date Occupation Not on file Not on file Not on file Travel End Travel History Travel Start No recent travel history available. documented as of this encounter Progress Notes * Ivan Morrow MD - 05/31/2012 1:55 PM INSIDE FINISHER . : 01:55pm .T: Return Patient .PV:[facility] Celi Morrow M.D. [address] [place] [address] [address] [facility] Ivan Morrow M.D. [address] [place] [address] [place], [place] [address] [place] [address] [place] [address] Adeola Pryor M.D. Rachelle Prabhakar M.D. Junior Simpson M.D. Jodi Moore M.D. Angelika Amaya M.D. F ax: Neal Castro M.D. Deborah L. [place], MSN,RN,ANP, [facility] Juan José Colbert M.D., Ph.D. Dat Jewell M.D. Bridger Velazco M.D. 05/31/12 Ange Frazier MD [address] [address] RE: Sydnee Love : [birth year] Dear Ange: I saw your patient Sydnee Love, date of 42 today in neurological fo llow up. The following medication was reported to me by the patient and may assist you: Current Medications: Rx: MULTI VITAMIN 1 daily Rx: PRAVASTATIN 40mg 1 daily Rx: CALCIUM + D 3 daily Rx: MOVE FREE 1 daily Rx: LISINOPRIL 10mg 1 daily Rx: SYNTHROID 112mcg 1 daily The patient's vital signs taken today in my office are as follows: Bp: 142/75, Pulse: 70 Weight: 140 lbs Sydnee Love was seen in follow up on 05/31/12 at our [facility] Office for continued evaluation of cerebrovascular disease. As you recall, in mid January 2012, she also had vasovagal episodes with blood pressure in the 50s and 70s. At that pedrito e, her aspirin was changed to Plavix although now back to aspirin 81mg per day. I doubt this was an intrinsic vertebral basilar event but rather hemodynamic re lated to her hypotension. Since that time, her Lisinopril has been decreased fro m 20mg a day to 10mg a day and Metoprolol has been added at 50mg daily. At the time of her event, her carotid/vertebral doppler study was normal. Her echocard iogram did show a very tiny patent foramen ovale. She has a history of atrial s eptal aneurysm. We had talked about the pros and cons of systemic anticoagulati on versus antiplatelet therapy in that situation. We decided to maintain antipl atelet therapy as addressing the PFO mechanically does not have any theoretical advantage and there is no advantage of systemic anticoagulation in that situatio n particularly with other risk factors present. She does have descending aortic atherosclerosis of moderate to severe degree but not ascending. Head CT has sh own old left basal ganglia infarcts but nothing acute at the time of her event i n January. No other new medical concerns. She has had some arthritic type pain in her right arm which comes and goes particularly in the wrist and shoulder. Motor strength remains intact. Dexterity is normal. Sensation is intact. Gait function is normal. After full discussion, I decided to maintain aspirin 81mg daily as well as contr ol of risk factors which do include hypertension and dyslipidemia. I will see h er in six months. Sincerely, :drew CC: Oseas Martins M.D. [address] [place] , [facility] [address] [place] [address] # SIGNED BY Ivan Morrow MD ([facility]) 05/31/2012 02:05PM DE FINISHER documented in this encounter Plan of Treatment Not on filedocumented as of this encounter Visit Diagnoses Not on filedocumented in this encounter
--- OUTSIDE RECORDS SUMMARY | 2018-11-10 17:45 | XMS REPORT | Encounter Summary ---
Author Author [facility] Organization [facility] Address Unknown Phone Unavailable Care Team Providers Care Director Of Culture Name Role Phone Ange Frazier MD PCP Encounter Details Care Team Description Date Type Department Oseas Martins MD [address] [address] 05/17/2012 [facility] [address] [place] [address] Social History Date Tobacco Use Types Packs/Day [...] Comments Procedure Name Priority Date/Time Associated Diagnosis HOLTER - HISTORICAL Routine 05/17/2012 documented in this encounter Results * Outpatient Heart Monitor - 24 hrs (05/17/2012) Specimen Narrative Performed At Procedure Category: EP NEXTGEN Procedure: Holter Procedure Summary: Normal holter monitor AVG HR 72, range 60-114. No VPB's and only an occasional SVPB without SVT, AF. No bradycardia, heart block or pauses. Procedure Note Interface, Rad Conversion - 11/06/2014 9:05 AM CDT Procedure Category: EP Procedure: Holter Procedure Summary: Normal holter monitor AVG HR 72, range 60-114. No VPB's and only an occasional SVPB without SVT, AF. No bradycardia, heart block or pauses. Performing Organization Address City/State[facility] Phone Number NEXTGEN documented in this encounter Visit Diagnoses Not on filedocumented in this encounter
--- OUTSIDE RECORDS SUMMARY | 2018-11-10 17:46 | XMS REPORT | Encounter Summary ---
Author Author [facility] Organization [facility] Address Unknown Phone Unavailable Care Team Providers Care Dielectric Tester Name Role Phone Ange Frazier MD PCP Encounter Details Care Team Description Date Type Department [facility] ProviderJavon MD 02/02/2012 [facility] Result Social History Date Tobacco [...] Comments Procedure Name Priority Date/Time Associated Diagnosis ECHO HISTORICAL Routine 02/02/2012 documented in this encounter Results * Echo historical (02/02/2012) Specimen Narrative Performed At Procedure Category: ECHO NEXTGEN Procedure: Echocardiogram Procedure Summary: Normal LV systolic function, with an estimated EF of 60%.No significant valvular abnormalities.Atrial septal aneurysm without definite evidence for PFO following agitated saline injection.Recommend RAMIRO to further assess possible PFO if clinically indicated. Procedure Note Interface, Rad Conversion - 11/17/2014 1:58 PM CDT Procedure Category: ECHO Procedure: Echocardiogram Procedure Summary: Normal LV systolic function, with an estimated EF of 60%. No significant valvular abnormalities. Atrial septal aneurysm without definite evidence for PFO following agitated saline injection. Recommend RAMIRO to further assess possible PFO if clinically indicated. Performing Organization Address City/State/Zipcode Phone Number NEXTGEN documented in this encounter Visit Diagnoses Not on filedocumented in this encounter
--- OUTSIDE RECORDS SUMMARY | 2018-11-10 17:46 | XMS REPORT | Encounter Summary ---
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 Abdomen limited (02/02/2012 2:58 PM CDT) Specimen Narrative Performed At [facility] XIMENA Patient:PAMELA VÁSQUEZ Phone #:Monogram Rec#:[id number] Sex:F :1940orp#: [id number] [address] [id number] Procedure Requested: US ABDOMEN LIMITED Reason For Exam: R/O gallstones Exam Ordered:02/02/2012 1418 Exam Date/Time:02/03/2012 0730 Check-in Date/Time:02/02/2012 1542 Attendin HOSPITALIST, PHYSICIAN "" Requestin BENITO MULLIGAN "" Referrin NO, REFERRING Primary Care: [id number] ROBERT FRAZIER MD EXAM:US ABDOMEN LIMITED DATE:Feb 03, 2012 07:30:00 AM INDICATION:R/O gallstones FINDINGS:No evidence of hepatic mass or biliary duct dilatation. Common duct diameter normal at about 4 mm. On the initial images the patient was not n.p.o. and the gallbladder was partially contracted. On subsequent images the gallbladder appears normal without stones or wall thickening. Pancreas appears normal.Right kidney is unremarkable. Aorta and IVC are patent. Impression:Normal limited abdominal ultrasound. Signed (Authenticated, Released) Date-Time: 02/03/2012 0803 Leather Polisher- BARBARA DOWNEY, Staff Radiologist Dictated By- BARBARA DOWNEY, Staff Radiologist Staff Physician- BARBARA DOWNEY, Staff Radiologist Authenticated By- BARBARA DOWNEY, Staff Radiologist Procedure Note Interface, Rad Conversion - 06/16/2013 11:24 PM APPLICATION INTEGRATOR REPORT Patient: PAMELA VÁSQUEZ Phone #: Med Rec#: [id number] Sex: F : 1940 Cindy#: [id number] Location: [place] [address] Check-in#: [id number] Procedure Requested: US ABDOMEN LIMITED Reason For Exam: R/O gallstones Exam Ordered: 02/02/2012 1418 Exam Date/Time: 02/03/2012 0730 Check-in Date/Time: 02/02/2012 1542 Attendin HOSPITALIST, PHYSICIAN "" Requestin BENITO MULLIGAN "" Referrin NO, REFERRING Primary Care: [id number] ROBERT FRAZIER MD EXAM: US ABDOMEN LIMITED DATE: Feb 03, 2012 07:30:00 AM INDICATION: R/O gallstones FINDINGS: No evidence of hepatic mass or biliary duct dilatation. Common duct diameter normal at about 4 mm. On the initial images the patient was not n.p.o. and the gallbladder was partially contracted. On subsequent images the gallbladder appears normal without stones or wall thickening. Pancreas appears normal. Right kidney is unremarkable. Aorta and IVC are patent. Impression: Normal limited abdominal ultrasound. Signed (Authenticated, Released) Date-Time: 02/03/2012 0803 Leather Polisher- BARBARA CHOWDHURY M.D., Staff Radiologist Dictated ByJose CHOWDHURY M.D., Staff Radiologist Staff Physician- BARBARA CHOWDHURY M.D., Staff Radiologist Authenticated By- BARBARA CHOWDHURY M.D., Staff Radiologist Performing Organization Address City/State/Zipcode Phone Number [facility] * ECHO TRANSTHORACIC (02/02/2012 2:05 PM CDT) Specimen Narrative Performed At [facility] RAD ECHOCARDIOGRAM REPORT [facility] Name: PAMELA VÁSQUEZ Date: 02/02/2012 14:05 Chart #: [id number] : 1940 Location: [facility] IP Sono: jerica Age: 71 Gender: F Referring: LESLY ENRIQUEZ Room #: 225 Fellow: Indication -TIA Procedure -[id number] Complete Echo 2D/Colorflow/Doppler BP: 99/ 70 HR: 75 Ht: 62 Wt: 129 BSA: 1.6 2D ECHO MEASUREMENTS LV Diastolic Diameter Bas3.8 cm3.6-5.4IVS Diastolic Thickness 1 cm0.6-1.1 LV Systolic Diameter Base2.2 cm2.3-4.0LVPW Diastolic Thickness 1 cm0.6-1.1 LA Systolic Diameter LX2.8 cm2.3-3.8Ascending Aorta Diameter 2.9 cm2.1-3.4 TRICUSPID VALVE DOPPLER RV Systolic Pressure 28 mmHg WALL SEGMENT ANALYSIS: ROUTINE LVSI : 1%FM : 100 LAD: 1LCX : 1RCA : 1 FINDINGS L V Ejection Fraction: 60 Normal left ventricular systolic function, with an estimated ejection fraction of 60%. Normal wall thickness. Normal wall motion. Normal left ventricular chamber dimensions. Normal right ventricular size and systolic function. Normal right and left atrial size. Mild diastolic dysfunction - normal LA pressure with mild abnormality in LV relaxation. Mild aortic valve sclerosis without regurgitation. Thickened mitral valve with trivial regurgitation. Normal tricuspid valve with trivial regurgitation.Estimated PA pressure=28 mmHg. No pericardial effusion. IVC is responsive to inspiration indicating normal RA pressure. Normal ascending aorta dimensions. No obvious intracardiac masses or thrombi. Mobile interatrial septum without obvious evidence for patent foramen ovale based on color flow Doppler. Saline contrast bubble study was technically difficult but there were bubbles seen in the left heart after injection. CONCLUSIONS: 1.Normal left ventricular systolic function, with an estimated ejection fraction of 60%. 2.No significant valvular abnormalities. 3.Atrial septal aneurysm without definite evidence for patent foramen ovale following agitated saline injection. 4.Recommend RAMIRO to further assess possible PFO if clinically indicated. Dann Suarez M.D. (Electronically Signed) Final Date: 02 February 2012 16:18 Procedure Note Interface, Rad Conversion - 06/27/2013 11:42 AM CDT RESULT ECHOCARDIOGRAM REPORT [facility] Name: PAMELA VÁSQUEZ Date: 02/02/2012 14:05 Chart #: [id number] : 1940 Location: [facility] Sono: jerica Age: 71 Gender: F Referring: LESLY ENRIQUEZ Room #: 225 Fellow: Indication -TIA Procedure -[id number] Complete Echo 2D/Colorflow/Doppler BP: 99 / 70 HR: 75 Ht: 62 Wt: 129 BSA: 1.6 2D ECHO MEASUREMENTS LV Diastolic Diameter Bas 3.8 cm 3.6-5.4 IVS Diastolic Thickness 1 cm 0.6-1.1 LV Systolic Diameter Base 2.2 cm 2.3-4.0 LVPW Diastolic Thickness 1 cm 0.6-1.1 LA Systolic Diameter LX 2.8 cm 2.3-3.8 Ascending Aorta Diameter 2.9 cm 2.1-3.4 TRICUSPID VALVE DOPPLER RV Systolic Pressure 28 mmHg WALL SEGMENT ANALYSIS: ROUTINE LVSI : 1 %FM : 100 LAD : 1 LCX : 1 RCA : 1 FINDINGS LV Ejection Fraction: 60 Normal left ventricular systolic function, with an estimated ejection fraction of 60%. Normal wall thickness. Normal wall motion. Normal left ventricular chamber dimensions. Normal right ventricular size and systolic function. Normal right and left atrial size. Mild diastolic dysfunction - normal LA pressure with mild abnormality in LV relaxation. Mild aortic valve sclerosis without regurgitation. Thickened mitral valve with trivial regurgitation. Normal tricuspid valve with trivial regurgitation. Estimated PA pressure =28 mmHg. No pericardial effusion. IVC is responsive to inspiration indicating normal RA pressure. Normal ascending aorta dimensions. No obvious intracardiac masses or thrombi. Mobile interatrial septum without obvious evidence for patent foramen ovale based on color flow Doppler. Saline contrast bubble study was technically difficult but there were bubbles seen in the left heart after injection. CONCLUSIONS: 1. Normal left ventricular systolic function, with an estimated ejection fraction of 60%. 2. No significant valvular abnormalities. 3. Atrial septal aneurysm without definite evidence for patent foramen ovale following agitated saline injection. 4. Recommend RAMIRO to further assess possible PFO if clinically indicated. Dann Suarez M.D. (Electronically Signed) Final Date: 02 February 2012 16:18 Performing Organization Address [facility] Phone Number [facility] CARDIOLOGY [facility] RAD [address] [place] [address] * D Dimer (02/02/2012 2:00 PM CDT) [facility] D Dimer 0.18Comment: Cutoff value for 0.00 - 0.40 UG/ML SUNQUEST exclusion of venous FEU thromboembolism is <0.40 ug/mL FEU. Specimen Blood Performing Organization Address [facility] Phone Number SLRL [address] [place] [address] SUNQUEST * Homocysteine (02/02/2012 2:00 PM CDT) [facility] Homocysteine 9.8 0.0 - 11.9 UMOL/L SUNQUEST Comment: Reference Range: <12Optimal 12-15Borderline 16-30Moderate Elevation >30Significant Elevation Specimen Blood Performing Organization [facility] Phone Number RL [address] [place] [address] SUNQUEST * Xwvk-0-Diozmamfxcut IgG and IgM (02/02/2012 2:00 PM CDT) Pathologist [facility] B2 GLYCOPROTEIN 1 0 - 20 SGU SUNQUEST I (IGG)AB B2 GLYCOPROTEIN 2 0 - 20 SMU SUNQUEST I (IGM)AB Comment: In the presence of appropriate clinical criteria (vascular thrombosis or complications of ), diagnosis of the antiphospholipid antibody syndrome requires a positive test for lupus anticoagulant on two or more occasions at least twelve weeks apart, or moderate to high titer anticardiolipin antibodies (IgG >30 GPL units or IgM >30 MPL units) on two or more occasions at least twelve weeks apart or anti-B2GP1 (IgG >20 SGU units or IgM >20 SMU units) on two or more occasions at least twelve weeks apart. Specimen Blood Performing Organization Address [facility] Phone Number SLRL [address] [place] [address] SUNQUEST * Activated Protein C Resistance (02/02/2012 2:00 PM CDT) Pathologist [facility] Activated 3.82 2.51 - 20.00 RATIO SUNQUEST Protein C Resistance Specimen Blood Performing Organization Address [facility] Phone Number SLRL [address] [place] [address] SUNQUEST * Antithrombin (02/02/2012 2:00 PM CDT) Pathologist [facility] Antithrombin 108 80 - 130 % SUNQUEST Specimen Blood Performing Organization Address [facility] Phone Number SLRL [address] [place] [address] SUNQUEST * DRVVT APL Testing (02/02/2012 2:00 PM CDT) Pathologist [facility] DRVVT Negative Negative SUNQUEST Specimen Blood Performing Organization Address [facility] Phone Number SLRL [address] [place] [address] SUNQUEST * Factor VIII Assay (02/02/2012 2:00 PM CDT) Pathologist [facility] Factor VIII 184 (H) 50 - 150 % SUNQUEST Assay Specimen Blood Performing Organization [facility] Phone Number SLRL [address] [place] [address] SUNQUEST * Antiphospholipid Panel II (02/02/2012 2:00 PM CDT) Pathologist [facility] APTT 26 22 - 34 SEC SUNQUEST Protime 13.5 11.7 - 14.3 SEC SUNQUEST INR 1.1 0.9 - 1.1 SUNQUEST Specimen Blood Performing Organization Address [facility] Phone Number SLRL [address] [place] [address] SUNQUEST * Anticardiolipin Antibodies (02/02/2012 2:00 PM CDT) Pathologist [facility] Anticardiolipin 5 0 - 15 SUNQUEST IgG Anticardiolipin 3 0 - 15 SUNQUEST IgM Comment: In the presence of appropriate clinical criteria (vascular thrombosis or complications of ), diagnosis of the antiphospholipid antibody syndrome requires a positive test for lupus anticoagulant on two or more occasions at least twelve weeks apart, or moderate to high titer anticardiolipin antibodies (IgG >30 GPL units or IgM >30 MPL units) on two or more occasions at least twelve weeks apart, or anti-B2GP1 (IgG >20 SGU units or IgM >20 SMU units) on two or more occasions at least twelve weeks apart. Specimen Blood Performing Organization Address [facility] Phone Number [address]RL [address] [place] [address] SUNQUEST * Protein C Activity (02/02/2012 2:00 PM CDT) Protein C 172 70 - 210 % SUNQUEST Activity Specimen Blood Performing Organization Address [facility] Phone Number SLRL [address] [place] [address] SUNQUEST * Protein S Activity (02/02/2012 2:00 PM CDT) Protein S 98 57 - 140 % SUNQUEST Activity Specimen Blood Performing Organization Address [facility] Phone Number [address] [place] [address] SUNQUEST * Prothrombin Gene Mutation (02/02/2012 2:00 PM CDT) Prothrombin Not present Not present SUNQUEST Gene Mutation Prothrombin NOT PRESENT SUNQUEST Gene Comment: Interpretation NOT PRESENT Analysis of the PCR products of genomic DNA using Prothrombin specific primer and probes with melting curve analysis indicates that the Prothrombin G-->A 18134 mutation is not present. This test was developed and its performance characteristics determined by [facility]. It has not been cleared or approved by the US Food and Drug Administration. The FDA has determined that such clearance or approval is not necessary. Pathologist Reviewed by MARCELO Flanagan M.D. Specimen Blood Performing Organization Address [facility] Phone Number SLRL [address] [place] [address] SUNQUEST * Carotid Duplex bilat (02/02/2012 12:28 PM CDT) Specimen Narrative Performed At [facility] Patient:PAMELA VÁSQUEZ Phone #:Monogram Rec#:[id number] Sex:F :1940orp#: [id number] Location: [facility] 225 Check-in#: [id number] Procedure Requested: US CAROTID DUPLEX BILATERAL Reason For Exam: TIA Exam Ordered:02/02/2012 1105 Exam Date/Time:02/02/2012 1258 Check-in Date/Time:02/02/2012 1228 Attendin HOSPITALIST, PHYSICIAN "" Requestin CELI MORROW Referrin NO, REFERRING DR Primary Care: [id number] ROBERT FRAZIER MD Provided Clinical History:TIA Bilateral carotid duplex ultrasound: Mild plaque is present about the right carotid bifurcation. Spectral analysis shows a peak systolic velocity in the proximal right internal carotid artery of 90 cm/sec.Right ICA/CCA ratio=1.2 Peak systolic velocity in the proximal left internal carotid artery is 72 cm/sec. Left ICA/CCA ratio=0.73 Vertebral flow is antegrade bilaterally. CONCLUSION: No flow-limiting carotid stenoses detected. Signed (Authenticated, Released) Date-Time: 02/02/2012 1538 Leather Polisher- HUSAM GONZALEZ, Staff Radiologist Dictated By- HUSAM GONZALEZ, Staff Radiologist Staff Physician- HUSAM GONZALEZ, Staff Radiologist Authenticated By- HUSAM GONZALEZ, Staff Radiologist Procedure Note Interface, Rad Conversion - 06/16/2013 11:24 PM APPLICATION INTEGRATOR REPORT Patient: PAMELA VÁSQUEZ Phone #: Med Rec#: [id number] Sex: F : 1940 Cindy#: [id number] Location: [facility] 225 Check-in#: [id number] Procedure Requested: US CAROTID DUPLEX BILATERAL Reason For Exam: TIA Exam Ordered: 02/02/2012 1105 Exam Date/Time: 02/02/2012 1258 Check-in Date/Time: 02/02/2012 1228 Attendin HOSPITALIST, PHYSICIAN "" Requestin CELI MORROW Referrin NO, REFERRING DR Primary Care: [id number] ROBERT FRAZIER MD Provided Clinical History: TIA Bilateral carotid duplex ultrasound: Mild plaque is present about the right carotid bifurcation. Spectral analysis shows a peak systolic velocity in the proximal right internal carotid artery of 90 cm/sec. Right ICA/CCA ratio=1.2 Peak systolic velocity in the proximal left internal carotid artery is 72 cm/sec. Left ICA/CCA ratio=0.73 Vertebral flow is antegrade bilaterally. CONCLUSION: No flow-limiting carotid stenoses detected. Signed (Authenticated, Released) Date-Time: 02/02/2012 1538 Leather Polisher- HUSAM CERRATO M.D., Staff Radiologist Dictated By- HUSAM CERRATO M.D., Staff Radiologist Staff Physician- HUSAM CERRATO M.D., Staff Radiologist Authenticated By- HUSAM CERRATO M.D., Staff Radiologist Performing Organization Address [facility] Phone Number [facility] * Triiodothyronine (02/02/2012 3:20 AM CDT) Triiodothyronin 1.0 1.0 - 1.7 NG/ML SUNQUEST e Specimen Blood Performing Organization Address [facility] Phone Number SLRL [address] [place] [address] SUNQUEST * Lipid Panel (02/02/2012 3:02 AM CDT) Cholesterol 145 100 - 200 MG/DL SUNQUEST Triglycerides 90 0 - 150 MG/DL SUNQUEST HDL Cholesterol 39 (L) 40 - 110 MG/DL SUNQUEST LDL Cholesterol 88 0 - 99 MG/DL SUNQUEST Cholesterol/HDL 3.7 0.0 - 4.5 SUNQUEST Ratio Non-HDL 106 0 - 130 MG/DL SUNQUEST Cholesterol Specimen Blood Performing Organization Address [facility] Phone Number SLRL [address] [place] [address] SUNQUEST * Total Thyroxine (02/02/2012 3:02 AM CDT) Total Thyroxine 7.7 5.5 - 11.0 UG/DL [facility] Specimen Blood Performing Organization Address [facility] Phone Number SLRL [address] [place] [address] [facility] * Troponin (02/01/2012 7:35 PM CDT) Only the most recent of 3 results within the time period is included. Troponin <0.01 0.00 - 0.03 NG/ML [facility] Comment: Troponin ValueInterpretation 0.00 - 0.03 Healthy 0.04 - 0.12 Increased Cardiac Risk >0.12M yocardial Infarction Troponin may not become elevated until 6 to 8 hours after onset of symptoms. Specimen Blood Performing Organization Address [facility] Phone Number [facility] [address] * Culture, Throat for Rapid Strep Screen (02/01/2012 6:45 PM CDT) Specimen Throat Narrative Performed At REPORT [facility] Specimen/Source: THROAT/THROAT Collected: 02/01/2012 18:45 Status: FinalLast Updated: 02/04/2012 09:01 Strep Screen for Group A Strep (Final) Negative for Streptococcus group A by antigen detection. Culture result (Final) No beta hemolytic Streptococcus species isolated Performing Organization Address [facility] Phone Number [facility] [address] [place] [address] [facility] * CT Head wo contrast (02/01/2012 3:20 PM CDT) Specimen Narrative Performed At REPORT [facility] Patient:PAMELA VÁSQUEZ Phone #:Monogram Rec#:[id number] Sex:F :1940orp#: [id number] [facility]#: [id number] Procedure Requested: [id number] CT HEAD WO CONTRAST Reason For Exam: HEADACHE Exam Ordered:02/01/2012 1313 Exam Date/Time:02/01/2012 1530 Check-in Date/Time:02/01/2012 1313 Attendin EMERGENCY, PHYSICIAN "" Requestin LISSETTE ANNA Referrin CRISTIN, REFERRING Primary Care: [id number] ROBERT FRAZIER MD Provided Clinical History: Headache/vertigo CT Head : Axial imaging was performed without IV contrast.No intracranial mass, hemorrhage, or extra-axial fluid collection detected. Mild cortical atrophy is noted. 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 The ventricles are normal in size and are midline. Orbits and paranasal sinuses appear normal as visualized.No significant change in the appearance of the head CT since 22 January 2011. CONCLUSION: No acute intracranial abnormality detected Signed (Authenticated, Released) Date-Time: 02/01/2012 1342 Leather Polisher- HUSAM GONZALEZ, Staff Radiologist Dictated By- HUSAM GONZALEZ, Staff Radiologist Staff Physician- HUSAM GONZALEZ, Staff Radiologist Authenticated By- HUSAM GONZALEZ, Staff Radiologist Procedure Note Interface, Rad Conversion - 06/16/2013 11:27 PM APPLICATION INTEGRATOR REPORT Patient: PAMELA VÁSQUEZ Phone #: Med Rec#: [id number] Sex: F : 1940 Cindy#: [id number] Location: Check-in#: [id number] Procedure Requested: [id number] CT HEAD WO CONTRAST Reason For Exam: HEADACHE Exam Ordered: 02/01/2012 1313 Exam Date/Time: 02/01/2012 1530 Check-in Date/Time: 02/01/2012 1313 Attendin EMERGENCY, PHYSICIAN "" Requestin LISSETTE ANNA Referrin CRISTIN, REFERRING Primary Care: [id number] ROBERT FRAZIER MD Provided Clinical History: Headache/vertigo CT Head : Axial imaging was performed without IV contrast. No intracranial mass, hemorrhage, or extra-axial fluid collection detected. Mild cortical atrophy is noted. 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 The ventricles are normal in size and are midline. Orbits and paranasal sinuses appear normal as visualized. No significant change in the appearance of the head CT since 22 January 2011. CONCLUSION: No acute intracranial abnormality detected Signed (Authenticated, Released) Date-Time: 02/01/2012 1342 Leather Polisher- HUSAM CERRATO M.D., Staff Radiologist Dictated By- HUSAM CERRATO M.D., Staff Radiologist Staff Physician- HUSAM CERRATO M.D., Staff Radiologist Authenticated By- HUSAM CERRATO M.D., Staff Radiologist Performing Organization Address [facility] Phone Number X[facility]NA * Urine Nitrite (02/01/2012 1:01 PM CDT) Nitrite Urine Negative Negative SUNQUEST Specimen Urine Performing Organization Address [facility] Phone Number [address] [place] [address] SUNQUEST * Urinalysis (02/01/2012 1:01 PM CDT) Appearance, Yellow SUNQUEST Urine Specific 1.020 1.001 - 1.030 SUNQUEST [place]ier, UA PH Urine 5.5 5.0 - 8.0 SUNQUEST Hemoglobin Negative Negative SUNQUEST Urine Leukocyte Negative Negative SUNQUEST Esterase Bilirubin Urine Negative Negative SUNQUEST Glucose Urine Negative Negative MG/DL SUNQUEST Ketones Urine Negative Negative MG/DL SUNQUEST Protein Urine Negative Negative MG/DL SUNQUEST Qual Urobilinogen Negative Negative EU/DL SUNQUEST Urine Specimen Urine Performing Organization Address [facility] Phone Number S[address] [place] [address] SUNQUEST * Magnesium (02/01/2012 12:30 PM CDT) Magnesium 2.0 1.4 - 2.7 MG/DL SUNQUEST Specimen Blood Performing Organization Address [facility] Phone Number SLRL [address] [place] [address] SUNQUEST * CBC and Diff (manual diff if necessary) (02/01/2012 12:30 PM CDT) WBC 13.08 (H) 4.00 - 11.00 TH/UL SUNQUEST RBC 4.35 4.00 - 5.00 MIL/UL SUNQUEST Hemoglobin 13.3 12.0 - 15.0 G/DL SUNQUEST Hematocrit 40 36 - 45 % SUNQUEST MCV 91 80 - 99 FL SUNQUEST MCH 31 27 - 34 PG SUNQUEST MCHC 34 32 - 36 % SUNQUEST RDW 12.6 9.0 - 14.5 % SUNQUEST Platelet Count 376 140 - 400 TH/UL SUNQUEST MPV 9.5 9.4 - 12.3 FL SUNQUEST % Neutrophils 58 45 - 78 % SUNQUEST %Lymphocytes 31 15 - 47 % SUNQUEST %Monocytes 7 0 - 12 % SUNQUEST %Eosinophils 2 0 - 7 % SUNQUEST %Basophils 1 0 - 2 % SUNQUEST # Granulocytes 7.72 (H) 1.70 - 6.80 TH/UL SUNQUEST # Lymphocytes 4.05 (H) 1.00 - 3.30 TH/UL SUNQUEST # Monocytes 0.92 (H) 0.20 - 0.90 TH/UL SUNQUEST # Eosinophils 0.26 0.00 - 0.40 TH/UL SUNQUEST # Basophils 0.13 (H) 0.00 - 0.10 TH/UL SUNQUEST % 1 (H) 0 - 0 % SUNQUEST Metamyelocytes Giant Platelets Present (A) Absent SUNQUEST RBC Morphology Normal Normal SUNQUEST Specimen Blood Performing Organization Address City/[facility] Phone Number [address] [place] [address] SUNQUEST * Thyroid Stimulating Hormone (02/01/2012 12:30 PM CDT) Thyroid 0.22 (L) 0.47 - 4.68 UIU/ML SUNQUEST Stimulating Hormone Specimen Blood Performing Organization Address City/[facility] Phone Number [address] [place] [address] SUNQUEST * XR Chest single view frontal (02/01/2012 12:21 PM CDT) Specimen Narrative Performed At REPORT [facility] Patient:PAMELA VÁSQUEZ Phone #:Monogram Rec#:[id number] Sex:F :1940orp#: [id number] Location: [facility] Check-in#: [id number] Procedure Requested: [id number] DX CHEST SINGLE VIEW Reason For Exam: COUGH Exam Ordered:02/01/2012 1221 Exam Date/Time:02/01/2012 1232 Check-in Date/Time:02/01/2012 1221 Attendin EMERGENCY, PHYSICIAN "" Requestin LISSETTE ANNA Referring: , Primary Care: [id number] FERRO MD Provided Clinical History: COUGH Exam Date: Feb 01, 2012 12:32:00 PM DX CHEST SINGLE VIEW : The lungs are well expanded and clear. The heart and mediastinum appear normal. Signed (Authenticated, Released) Date-Time: 02/01/2012 1245 Leather Polisher- HUSAM GONZALEZ, Staff Radiologist Dictated By- HUSAM GONZALEZ, Staff Radiologist Staff Physician- HUSAM GONZALEZ, Staff Radiologist Authenticated ByJose GONZALEZ, Staff Radiologist Procedure Note Interface, Rad Conversion - 06/16/2013 11:27 PM APPLICATION INTEGRATOR REPORT Patient: PAMELA VÁSQUEZ Phone #: Med Rec#: [id number] Sex: F : 1940 [facility]#: [id number] Location: [facility] Check-in#: [id number] Procedure Requested: [id number] DX CHEST SINGLE VIEW Reason For Exam: COUGH Exam Ordered: 02/01/2012 1221 Exam Date/Time: 02/01/2012 1232 Check-in Date/Time: 02/01/2012 1221 Attendin EMERGENCY, PHYSICIAN "" Requestin LISSETTE ANNA Referring: , Primary Care: [id number] FERRO MD Provided Clinical History: COUGH Exam Date: Feb 01, 2012 12:32:00 PM DX CHEST SINGLE VIEW : The lungs are well expanded and clear. The heart and mediastinum appear normal. Signed (Authenticated, Released) Date-Time: 02/01/2012 2696 Leather Polisher- HUSAM CERRATO M.D., Staff Radiologist Dictated By- HUSAM CERRATO M.D., Staff Radiologist Staff Physician- HUSAM CERRATO M.D., Staff Radiologist Authenticated By- HUSAM CERRATO M.D., Staff Radiologist Performing Organization Address City/State/[facility] Phone Number MCKESSON documented in this encounter Visit Diagnoses Diagnosis Syncope and collapse documented in this encounter
--- OUTSIDE RECORDS SUMMARY | 2018-11-10 17:46 | XMS REPORT | Encounter Summary ---
Author Author [facility] Organization [facility] Address Unknown Phone Unavailable Care Team Providers Care Grounds Cleaner Name Role Phone Ange Frazier MD PCP Encounter Details Care Team Description Date Type Department Ivan Morrow MD No Forwarding Address 02/22/2012 Hist-Visit [facility] Social History Date Tobacco Use Types Packs/Day Years Used Never Assessed Sex Assigned at Date Recorded Not on file Industry Job Start Date Occupation Not on file Not on file Not on file Travel End Travel History Travel Start No recent travel history available. documented as of this encounter Progress Notes * Ivan Morrow MD - 02/22/2012 3:24 PM BASS FISHER .D: 12 : 03:24pm .T: Return Patient .PV:[facility] Celi Morrow M.D. [address] [place] [address] 20 [facility] Ivan Morrow M.D. [address] [place] [address] [place], [place] [address] [place] [address] [place] [address] Adeola Pryor M.D. Rachelle Prabhakar M.D. Junior Simpson M.D. Jodi Moore M.D. Angelika Amaya M.D. F ax: Neal Castro M.D. Deborah L. Sobotka, MSN,RN,ANP, [facility] Juan José Colbert M.D., Ph.D. Dat Floyd M.D. Bridger Velazco M.D. 02/22/12 Ange Frazier MD [address] [place], [place] [id number] CC: Oseas Martins M.D. [address] [facility], [facility] [[email or web address] [address] [place] [address] RE: Sydnee Love : 42 Dear Ange: I saw your patient Sydnee Love, date of 42 today in neurological fo llow up. The following medication was reported to me by the patient and may assist you: Current Medications: Rx: CLARITAN D 1 daily Rx: LISINOPRIL 20mg 1 daily Rx: MULTI VITAMIN 1 daily Rx: PRAVASTATIN 40mg 1 daily Rx: SYNTHROID 125mcg 1 daily Rx: CALCIUM + D 3 daily Rx: MOVE FREE 1 daily Rx: PLAVIX 75mg 1tab daily Sydnee Love was seen in follow up on 02/22/12 at our [facility] Office for continued evaluation of cerebrovascular disease. She was seen by Dr. Celi Morrow in mid [facility] for what appears to be a straightforward vasovagal episode associated wit h relative dehydration in the midst of a rather significant upper respiratory in fection. In fact, she reports that her systolic blood pressure was in the 50s t o 70s at the time of her event. She felt a popping in her ears with lightheaded ness, nausea but no vomiting. She had a cold sweat and had some air hunger with decreased breathing. There was no chest pain. Head CT and carotid duplex was negative. She did not have any focal symptoms at that time. As you recall, las t fall, she did have right lower extremity numbness associated with disequilibri um suspicious for a TIA. She was placed on aspirin at that time. Following this most recent event in January 2012, her aspirin was switched to Plavix. Her ech ocardiogram did show an ejection fraction of 60 percent with a very small patent foramen ovale with right to left shunt. In the past, she has been found to have an atrial septal aneurysm. She had descending aortic atherosclerosis moderate to severe degree but not ascending. There was no obvious other clot source. C arotid doppler study is unremarkable with normal vertebral flow. 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 She continues to have a sense of shortness of breathing with decreased endurance and will be see ing Dr. Martins of cardiology soon. She reports that she has had some mild tachy cardia even at rest as well as resting hypertension. She takes Lisinopril as we ll as Pravastatin and Synthroid. She is slowly gaining her endurance. Her hype rcoagulable profile at the time of her hospital stay was negative. On examination today, she has normal cranial nerve function. Extraocular moveme nts are full without nystagmus. No facial asymmetry. Facial sensation was sue l and symmetric. Visual floyd are intact. Motor strength is 5/5. Normal tone and no atrophy. Reflexes were symmetric. Gait including tandem was normal. Rom stevens was absent. Sensation was intact. I believe that Sydnee had a relative vertebral basilar insufficiency event on the basis of vasovagal with a baseline relative dehydration superimposed on an upper respiratory illness. She has had no further stroke-like events on Plavix. Osbaldo pite having a very tiny PFO and atrial septal aneurysm, I believe that antiplate let therapy is just as good as systemic anti-coagulation and she will continue t he Plavix. I await the evaluation by Dr. Martins of cardiology. Sincerely, [facility]:lr # SIGNED BY Ivan Morrow MD ([facility]) 02/22/2012 05:03PM FISHER documented in this encounter Plan of Treatment Not on filedocumented as of this encounter Visit Diagnoses Not on filedocumented in this encounter
--- OUTSIDE RECORDS SUMMARY | 2018-11-10 17:46 | XMS REPORT | Encounter Summary ---
Author Author [facility] Organization [facility] Address Unknown Phone Unavailable Care Team Providers Care Tool Checker Name Role Phone Ange Frazier MD PCP Encounter Details Care Team Description Date Type Department Oseas Martins MD [address] [address] 02/23/2012 [facility] Visit Social History Date Tobacco Use Types Packs/Day Years Used Never Assessed Sex Assigned at Date Recorded Not on file Industry Job Start Date Occupation Not on file Not on file Not on file Travel End Travel History Travel Start No recent travel history available. documented as of this encounter Last Filed Vital Signs Reading Time Taken Comments Vital Sign 120/78 02/23/2012 10:27 AM RN OUTPATIENT SURGERY Blood Pressure 88 02/23/2012 10:27 AM RN OUTPATIENT SURGERY Pulse - - Temperature - - Respiratory Rate - - Oxygen Saturation - - Inhaled Oxygen Concentration 63.2 kg (139 lb 6.4 oz) 02/23/2012 10:27 AM RN OUTPATIENT SURGERY normal Weight 160 cm (5' 3") 02/23/2012 10:27 AM RN OUTPATIENT SURGERY Height 24.69 02/23/2012 10:27 AM RN OUTPATIENT SURGERY Body Mass Index documented in this encounter Progress Notes * Oseas Martins MD - 02/23/2012 10:30 AM RN OUTPATIENT SURGERY [facility] Office [address] [place] [address] February 23, 2012 Ange Frazier MD [address] [address] RE: PAMELA VÁSQUEZ : 1940 Chart #: [id number] Visit provider: Oseas Martins M.D. Visit location: [facility] Dear Dr. Frazier: I had the pleasure of seeing PAMELA VÁSQUEZ in the office today at your request. S he is 71 years of age and presents with the following chief complaints: dyslipi demia, hypertension. HPI: Ange, I did see Ms. Vásquez in our office today after her recent hospitalization. She presented with significant hypotension and near syncope. She had had an upp er respiratory infection and was being treated with antibiotics. She was found t o be volume depleted and was given intravenous fluids. According to the record, she had been on Toprol, but that was held. The patient does not seem to recall t hat she had ever taken a beta-carmela. She was sent home on lisinopril 20 mg pe r day. Since returning home, she has been feeling quite weak. She has not had any lateralizing neurologic deficit. There was some question whether she had had a TIA with some nonspecific complaints of tingling at the time of presentation. The CT scan of the head was unremarkable and an MRI was negative as well. Duplex scans of the carotids showed no carotid disease. A transesophageal echocardio gram showed a tiny PFO with only a few bubbles that went across the atrial septu m, but no definite source for cardiac related emboli. She has been monitoring h er blood pressure at home. It has been quite labile. At times it is low such as this morning when it was 100/70. At other times, it has been up to 180/90. She was quite agitated about this. Her other concern was that she was found on a tr ansesophageal echocardiogram to have thoracic aortic atherosclerotic plaque but no aneurysm. Her TSH was low in the hospital at 0.24. It was recommended that h er Synthroid dose be evaluated as an outpatient. Problem List: 02/18/2012 Dyslipidemia 02/02/2012 Echo 1. Normal left ventricular systolic function, with an estimate d ejection fraction of 60%. 2. No significant valvular abnormalities. 3. Atri al septal aneurysm without definite evidence for patent foramen ovale following agitated saline injection. 4. Recommend RAMIRO to further assess possible PFO if c linically indicated. 02/03/2012 Echo RAMIRO Normal left ventricular systolic function, with an estimated ejection fraction of 60%. Normal right ventricular systolic function. No sign ificant valvular abnormalities. No thrombus seen in the left atrial appendage. Very small PFO with only a few saline bubbles passing right to left. Moderate to severe atherosclerotic plaque in the descending aorta. 02/02/2012 EF Echo EF: 60 Hypertension 02/01/2012 Near syncope 03/05/2011 PVD Carotid Duplex Mild atherosclerotic plaque with no evidence for a hemodynamically significant stenosis. Both vertebral arteries are patent with a ntegrade flow. TIA Past Medical History: Osteoarthritis Hypothyroidism Leukocytosis TIA 2010 Past Surgical History: Total Knee Replacement Right Cataract Surgery Final Medications: Low Dose Aspirin EC 81 Mg take 1 tablet (81MG) by oral route every day Metoprolol Succinate 25 Mg take 1 Tablet (25MG) by oral route every day Multivitamin 1 po daily Nexium 40 Mg take 1 capsule (40MG) by oral route every day Calcium 500 + Vit D 500 Mg Calcium (1,250 Mg)-400 Unit 2 po daily Pravastatin Sodium 40 Mg take 1 tablet (40MG) by oral route every day Glucosamine MSM 1,500 Mg-500 Mg/30 Ml 2 po daily Synthroid 125 Mcg take 1 tablet (125MCG) by oral route every day Alavert 5 Mg-120 Mg take 1 tablet by oral route every 12 hours Allergies/Intolerances: Allergy Reaction Sulfa Rash Family History: Sister Diagnosed with HTN Mother at age 86. Father Cause of was CAD at age 68. Social History: Marital Status: Children: 3 Occupation: Retired Advance Directives: The patient has a health care proxy. Diet: Regular Exercise: Active Lifestyle Tobacco: None Alcohol: Currently drinks 3 drinks of hard liquor socially Caffeine: Caffeine use: 1 cup of coffee ROS: 12-point review of systems is negative with the following exceptions: Constitutional: Fatigue, Night sweats Pulmonary: Daytime drowsiness Cardiovascular: Fainting or passing out, Irregular or fast rhythm, Shortness of breath GI: Nausea/Vomiting /CELLARS SUPERVISOR: Postmenopausal Neuro: Disequilibrium Musculoskeletal/Dermatology: Arthralgias Hematology: Bleed or bruise easily Endocrine/Psych: Cold intolerance, Feeling depressed Physical Exam: Vital Signs The patient is 5ft 3in tall, and weighs 139.40lbs. The BMI is 24.70 . Blood pressure taken in the left arm is 120/78 mmHg in the sitting position. The pulse is 88. The rhythm is regular. Const The patient is a well-developed, well-nourished female. HEENT The pupils are equal and round. The patient's sclerae are clear. There i s no corneal arcus. There are no xanthelasmas noted. Bilateral hearing loss - alvaro re Pulm Lungs are clear to auscultation. Cardiac Regular rate and rhythm. Normal S1 and S2. No murmur, rub, or gallop pre sent. Abd The patient has no abdominal tenderness to palpation. There is no hepatomegaly. The abdominal aorta is of normal size. No abdominal masses are present on palpation. Bowel sounds are present. Vasc Distal pulses 2+ throughout with no carotid bruits noted EXT The extremities are warm to touch. [...] The patien t appears anxious. EKG: Result: Normal sinus rhythm, normal EKG. Most Recent Lipids Available for Review: Date Collected: 02/02/2012 Fasting: Fasting Total Cholesterol: 145 HDL: 39 LDL: 88 Triglycerides: 90 Ratio: 3.72 Impression and Plan: 1. Today's blood pressure was fine at 128/78. She is complaining that her heart races and her pulse rate was on the fast side of normal at 88 beats a minute. I have started her o n a small dose of Toprol XL, namely 25 mg, and have held the lisinopril entirely. If her pressur es go up and the heart rate is still fast, I would increase the beta-carmela to 50 mg once daily . If her pressures are still high, we could always go back to a small dose of an EDWARD inhibitor, starti ng with 10 mg per day of lisinopril. 2. Dyspnea with exertion. There was no evidence of heart failure on today's exam ination. Her ejection fraction is normal. I will go ahead and get a nuclear stress test. 3. Palpitations. She tells me that her heart races at times. I suspect this is s imply sinus tachycardia related to periods of anxiety. I will go ahead and get a Holter just to be cer tain we are not overlooking an arrhythmia such as atrial fibrillation. 4. Dyslipidemia. Her LDL is 88, which would be fine in the absence of atheroscle rosis. I do not believe that any major changes are required. She is on pravastatin at 40 mg and as long as we are treating her with a statin drug we might want to consider a more potent statin such as simvastatin 40 mg with 20 mg of Lipitor. I will leave that to you. Testing ordered: Description Interval Holter monitor Before Next Visit MPI - exercise First Available Follow up: Oseas Martins M.D. 3 Months Thank you for allowing me to participate in PAMELA COMFORT's care. If I can be of any further assistance, please do not hesitate to contact me. Sincerely, Oseas Martins M.D. DLS/ss F: 02/24/2012 OUTPATIENT SURGERY documented in this encounter Plan of Treatment Not on filedocumented as of this encounter Visit Diagnoses Not on filedocumented in this encounter
--- OUTSIDE RECORDS SUMMARY | 2018-11-10 17:46 | XMS REPORT | Encounter Summary ---
Author Author [facility] Organization [facility] Address Unknown Phone Unavailable Care Team Providers Care Marker Machine Name Role Phone Ange Frazier MD PCP Encounter Details Care Team Description Date Type Department Oseas Martins MD [address] [place] [address] 02/29/2012 [facility] Visit Social History Date [...]
--- OUTSIDE RECORDS SUMMARY | 2018-11-10 17:46 | XMS REPORT | Encounter Summary ---
Author Author [facility] Organization [facility] Address Unknown Phone Unavailable Care Team Providers Care Operations Intelligence Superintendent Name Role Phone Ange Frazier MD PCP Encounter Details Care Team Description Date Type Department Ivan Morrow MD No Forwarding Address 04/03/2011 Hist-Visit [facility] Social History Date Tobacco Use Types Packs/Day Years Used Never Assessed Sex Assigned at Date Recorded Not on file Industry Job Start Date Occupation Not on file Not on file Not on file Travel End Travel History Travel Start No recent travel history available. documented as of this encounter Progress Notes * Ivan Morrow MD - 04/03/2011 8:41 AM EVIDENCE TECHNICIAN .D: 11 : 08:41am .T: Return Patient .PV:[facility] Celi Morrow M.D. [address] [place] [address] 20 [facility] Ivan Morrow M.D. [address] [place] [address] [place], [place] [address] [place] [address] [place] [address] Rachelle Prabhakar M.D. Bindu Mathias D.O. Jodi Moore M.D. Angelika Amaya M.D. F ax: Jt Puente D.O. Carlo Navarro M.D. [facility] Juan José Colbert M.D., Ph.D. Dat Jewell M.D. 04/03/11 Ange Frazier MD [address] [place], [place] [id number] RE: Sydnee Love : 42 Dear Ange: I saw Sydnee Love in follow up in the presence of her friend on 04/03/11 for co ntinued evaluation of brief spell of right lower extremity paresthesias and a se nse of disequilibrium consistent with posterior circulation transient ischemic a ttack. She has had no further attacks on aspirin 81mg per day as well as contro l of her hypertension, hyperlipidemia. Her carotid duplex scan was unremarkable with no evidence of significant stenosis either the carotid or vertebral vascul ature. Her transthoracic echocardiogram was unremarkable with an ejection of 60 percent with no evidence of PFO despite a mobile intra atrial septum. There was no thrombus. She has had no new neurological issues. 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 In fact, we spent the bulk of o ur time talking about what she has tried. She was wondering if there are any ne w modalities available. She has been through [facility]. She reports that she has been tried on everything in terms of medication. She has tried ac upuncture as well as some type of shots. I have asked her to collect all the medications tried and failed from pharmacy r ecords if she can if she wishes to try another trial of medication. Otherwise, I will see her as needed. She states that she simply is living with it. She uses Tylenol prn. I will see her as needed. Sincerely, [facility]:lr # SIGNED BY Ivan Morrow MD ([facility]) 04/07/2011 11:18AM ENCE TECHNICIAN documented in this encounter Plan of Treatment Not on filedocumented as of this encounter Visit Diagnoses Not on filedocumented in this encounter
--- OUTSIDE RECORDS SUMMARY | 2018-11-10 17:46 | XMS REPORT | Encounter Summary ---
Author Author Organization Address Unknown Phone Unavailable Care Team Providers Care Mobile Application Engineer Name Role Phone Ange Frazier MD PCP Encounter Details Care Team Description Date Type [place] [address] [facility] [address] [place] [address] [phone] 03/21/2012 [facility] Visit Social History Date [...]
--- OUTSIDE RECORDS SUMMARY | 2018-11-10 17:46 | XMS REPORT | Encounter Summary ---
Author Author [facility] Organization [facility] Address Unknown Phone Unavailable Care Team Providers Care Spray Drier Operator Name Role Phone Ange Frazier MD PCP Encounter Details Care Team Description [place] [address] [facility] [address] [place] [address] [phone] 03/07/2012 [facility] - Hist [facility] Visit Social History [...]
--- OUTSIDE RECORDS SUMMARY | 2018-11-10 17:46 | XMS REPORT | Encounter Summary ---
Author Author [facility] Organization [facility] Address Unknown Phone Unavailable Care Team Providers Care Security Expert Name Role Phone Ange Frazier MD PCP Encounter Details Care Team Description Date Type Department [facility] ProviderJavon MD 02/02/2012 [facility] Result Social History Date [...] Procedure Name Priority Date/Time Associated Diagnosis CV US CAROTID DUPLEX Routine 02/02/2012 HISTORICAL documented in this encounter Results * CV US Carotid Duplex historical (02/02/2012) Specimen Narrative Performed At Procedure Category: Echo NEXTGEN Procedure: Carotid duplex Procedure Summary: No flow-limiting carotid stenoses detected. Procedure Note Interface, Rad Conversion - 11/17/2014 1:58 PM CDT Procedure Category: Echo Procedure: Carotid duplex Procedure Summary: No flow-limiting carotid stenoses detected. Performing Organization Address City/State/Zipcode Phone Number NEXTGEN documented in this encounter Visit Diagnoses Not on filedocumented in this encounter
--- OUTSIDE RECORDS SUMMARY | 2018-11-10 17:46 | XMS REPORT | Encounter Summary ---
Author Author [facility] Organization [facility] Address Unknown Phone Unavailable Care Team Providers Care Condominium Manager Name Role Phone Ange Frazier MD PCP Encounter Details Care Team Description Date Type Department Oseas Martins MD [address] [place] [address] 02/18/2012 [facility] Hist [facility] HISTORIC [...]
--- OUTSIDE RECORDS SUMMARY | 2018-11-10 17:46 | XMS REPORT | Encounter Summary ---
Author Author [facility] Organization [facility] Address Unknown Phone Unavailable Care Team Providers Care Management Developer Name Role Phone Ange Frazier MD PCP Encounter Details Care Team Description Date Type Department [facility] ProviderJavon MD 02/03/2012 [facility] Result Social History Date [...] Date/Time Associated Diagnosis ECHO TRANSESOPHAGEAL Routine 02/03/2012 HISTORICAL documented in this encounter Results * Echo Transesophageal historical (02/03/2012) Specimen Narrative Performed At Procedure Category: ECHO NEXTGEN Procedure: Transesophageal Echocardiogram Procedure Summary: Normal left ventricular systolic function, with an estimated ejection fraction of 60%. Normal right ventricular systolic function. No significant valvular abnormalities. No thrombus seen in the left atrial appendage. Very small PFO with only a few saline bubbles passing right to left. Moderate to severe atherosclerotic plaque in the descending aorta. Procedure Note Interface, Rad Conversion - 11/17/2014 1:58 PM CDT Procedure Category: ECHO Procedure: Transesophageal Echocardiogram Procedure Summary: Normal left ventricular systolic function, with an estimated ejection fraction of 60%. Normal right ventricular systolic function. No significant valvular abnormalities. No thrombus seen in the left atrial appendage. Very small PFO with only a few saline bubbles passing right to left. Moderate to severe atherosclerotic plaque in the descending aorta. Performing Organization Address City/State/Zipcode Phone Number NEXTGEN documented in this encounter Visit Diagnoses Not on filedocumented in this encounter
--- OUTSIDE RECORDS SUMMARY | 2018-11-10 17:46 | XMS REPORT | Encounter Summary ---
Author Author [facility] Organization [facility] Address Unknown Phone Unavailable Care Team Providers Care Unionmelt Operator Name Role Phone Ange Frazier MD PCP Encounter Details Care Team Description Date Type Department [facility] ProviderJavon MD 02/02/2012 [facility]-Hist EF [facility] HISTORIC CLINIC Social History Date Tobacco Use Types [...] Procedure Name Priority Date/Time Associated Diagnosis ECHO EJECTION FRACTION Routine 02/02/2012 HISTORICAL 2:05 PM CDT documented in this encounter Results * Echo Ejection Fraction historical (02/02/2012 2:05 PM CDT) Ejection 60Comment: Echo PROSOLV Fraction Specimen Performing Organization Address City/State/Zipcode Phone Number PROSOLV documented in this encounter Visit Diagnoses Not on filedocumented in this encounter
--- NOTE | 2018-11-10 17:47 | ED Abdominal Pain ---
General Chief Complaint: Abdominal/GI Problems Stated Complaint: ABD PAIN Nursing Triage Note: PATIENT STATES THAT HAS HAD PROBLEMS WITH HER BOWELS FOR A WHILE. SE THOUGHT SHE HAD BLOOD IN HER STOOL BUT THAT TEST CAME BACK NEGATIVE. HOWEVER, SHE IS HAVING CONTINUED PROBLEMS WITH DIARRHEA, FATIGUE, LLQ PAIN. DR FINN TOLD HER TO COME TO ER FOR EVALUATION. Sepsis Screen: No Definite Risk Source of Information: Patient Exam Limitations: No Limitations History of Present Illness Date Seen by Provider: Nov 10, 2018 Time Seen by Provider: 17:46 Initial Comments To ER with reports of bowel problems for about a month. This initially began with some diarrhea. That resolved, and she had constipation, [place] food seems to make it worse. She's had generalized fatigue. Today she developed some left lower quadrant pain. She denies any fevers chills nausea or vomiting. Timing/Duration: 1-2 Days Severity/Quality: Moderate Location: LLQ Radiation: No Radiation Activities at Onset: None Allergies and Home Medications Allergies Coded Allergies: latex (Verified Allergy, Mild, RASH, 06/01/18) Sulfa (Sulfonamide Antibiotics) (Verified Allergy, Unknown, 12/04/14) Home Medications Acetaminophen 650 Mg Tablet.er, 1,300 MG PO Q8H PRN for PAIN-MILD, (Reported) TAKES 2 (650MG) TABLETS Amoxicillin/Potassium Clav 1 Each Tablet, 1 EACH PO BID Prescribed by: RICK NUNEZ on 11/10/181999 Aspirin 81 Mg Tablet.dr, 81 MG PO DAILY, (Reported) Diazepam 2 Mg Tablet, 2 MG PO HS, (Reported) Fluticasone Propionate 9.9 Ml [place].susp, 2 SPRAYS NS DAILY PRN for ALLERGIES, (Reported) Glucosam/Chond/Hyalu/Cf Borate 1 Each Tablet, 1 TAB PO HS, (Reported) L.acidoph & Paracasei,B.lactis 1 Each Capsule, 1 CAP PO DAILY, (Reported) Levocetirizine Dihydrochloride 5 Mg Tablet, 5 MG PO DAILY, (Reported) Levothyroxine Sodium 88 Mcg Tablet, 88 MCG PO 0300, (Reported) Lisinopril 20 Mg Tablet, 40 MG PO DAILY, (Reported) TAKES 2 (20MG) TABLETS Metoprolol Succinate 50 Mg Tab.er.24h, 50 MG PO DAILY, (Reported) Omeprazole Magnesium 20 Mg Tablet.dr, 20 MG PO DAILY, (Reported) Pravastatin Sodium 80 Mg Tablet, 80 MG PO HS, (Reported) Vitamin B Complex 1 Each Capsule, 1 CAP PO DAILY, (Reported) [Super D Immune] , 1 CAP PO DAILY, (Reported) VITAMIN A 2300 IU MAGNESIUM 250MG VITAMIN D3 4000IU ZINC 5MG [Waterex] , 1 TAB PO BID, (Reported) VITAMIN B6 MAGNESIUM OXIDE POTASSIUM Patient Home Medication List Home Medication List Reviewed: Yes Review of Systems Review of Systems Constitutional: see HPI EENTM: No Symptoms Reported Respiratory: No Symptoms Reported Cardiovascular: No Symptoms Reported Gastrointestinal: See HPI, Abdominal Pain Genitourinary: No Symptoms Reported Musculoskeletal: no symptoms reported Skin: no symptoms reported Psychiatric/Neurological: No Symptoms Reported Endocrine: No Symptoms Reported Hematologic/Lymphatic: No Symptoms Reported Past Ujuxsen-Razjsq-Spuezc Hx Patient Social History Alcohol Use: Occasionally Uses Number of Drinks Today: Alcohol Beverage of Choice: Wine Recreational Drug Use: No Smoking Status: Never a Smoker 2nd Hand Smoke Exposure: No Recent Foreign Travel: No Contact w/Someone Who Travel: No Recent Infectious Disease Expo: No Immunizations Up To Date PED Vaccines UTD: Yes Date of Pneumonia Vaccine: May 20, 2011 Date of Influenza Vaccine: Jan 29, 2018 Past Medical History Surgeries: Yes (right TKR, BUNIONECTOMY, right knee scope, cataracts) Joint Replacement Respiratory: No Cardiac: Yes Hypertension Neurological: Yes TIA BLADE BONER History: Menopausal Genitourinary: Yes UTI-Chronic Gastrointestinal: Yes Gastroesophageal Reflux Musculoskeletal: No Endocrine: Yes Hypothyroidsim HEENT: Yes Cataract Skin Psychosocial: No Integumentary: No Blood Disorders: No Adverse Reaction/Blood Tranf: No Physical Exam Vital Signs Vital Signs - First Documented 11/10/18 17:20 Temp 98.2 Pulse 77 Resp 20 B/P (MAP) 189/89 (122) Pulse Ox 97 Capillary Refill : Less Than 3 Seconds Height/Weight/BMI Height: 5'3.00" Weight: 145lbs. 0oz. 65.040957fj; 25.7 BMI Method:Actual General Appearance: WD/WN, no apparent distress HEENT: PERRL/EOMI, normal ENT inspection Respiratory: no respiratory distress, no accessory muscle use Gastrointestinal: normal bowel sounds, soft, tenderness Extremities: normal range of motion, non-tender Neurologic/Psychiatric: alert, normal mood/affect, oriented x 3 Skin: normal color, warm/dry Progress/Results/Core Measures Results/Orders Lab Results Laboratory Tests Test 11/10/18 17:33 11/10/18 18:44 Range/Units White Blood Count 11.1 H 4.3-11.0 10^3/uL Red Blood Count 3.97 L 4.35-5.85 10^6/uL Hemoglobin 11.6 11.5-16.0 G/DL Hematocrit 36 35-52 % Mean Corpuscular Volume 91 80-99 FL Mean Corpuscular Hemoglobin 29 25-34 PG Mean Corpuscular Hemoglobin Concent 32 32-36 G/DL Red Cell Distribution Width 13.3 10.0-14.5 % Platelet Count 242 130-400 10^3/uL Mean Platelet Volume 9.9 7.4-10.4 FL Neutrophils (%) (Auto) 73 42-75 % Lymphocytes (%) (Auto) 17 12-44 % Monocytes (%) (Auto) 9 0-12 % Eosinophils (%) (Auto) 2 0-10 % Basophils (%) (Auto) 0 0-10 % Neutrophils # (Auto) 8.0 H 1.8-7.8 X 10^3 Lymphocytes # (Auto) 1.9 1.0-4.0 X 10^3 Monocytes # (Auto) 1.0 0.0-1.0 X 10^3 Eosinophils # (Auto) 0.2 0.0-0.3 10^3/uL Basophils # (Auto) 0.0 0.0-0.1 10^3/uL Sodium Level 136 135-145 MMOL/L Potassium Level 4.0 3.6-5.0 MMOL/L Chloride Level 103 98-107 MMOL/L Carbon Dioxide Level 24 21-32 MMOL/L Anion Gap 9 5-14 MMOL/L Blood Urea Nitrogen 7 7-18 MG/DL Creatinine 0.76 0.60-1.30 MG/DL Estimat Glomerular Filtration Rate > 60 BUN/Creatinine Ratio 9 Glucose Level 144 H 70-105 MG/DL Calcium Level 9.4 8.5-10.1 MG/DL Corrected Calcium 9.4 8.5-10.1 MG/DL Total Bilirubin 0.3 0.1-1.0 MG/DL Aspartate Amino Transf (AST/SGOT) 25 5-34 U/L Alanine Aminotransferase (ALT/SGPT) 20 0-55 U/L Alkaline Phosphatase 78 40-136 U/L Total Protein 6.5 6.4-8.2 GM/DL Albumin 4.0 3.2-4.5 GM/DL Urine Color YELLOW Urine Clarity CLEAR Urine pH 6.5 5-9 Urine Specific [place] 1.005 L 1.016-1.022 Urine Protein NEGATIVE NEGATIVE Urine Glucose (UA) NEGATIVE NEGATIVE Urine Ketones NEGATIVE NEGATIVE Urine Nitrite NEGATIVE NEGATIVE Urine Bilirubin NEGATIVE NEGATIVE Urine Urobilinogen NORMAL NORMAL MG/DL Urine Leukocyte Esterase 1+ H NEGATIVE Urine RBC (Auto) NEGATIVE NEGATIVE Urine RBC NONE /HPF Urine WBC RARE /HPF Urine Squamous Epithelial Cells 5-10 /HPF Urine Crystals NONE /LPF Urine Bacteria TRACE /HPF Urine Casts NONE /LPF Urine Mucus NEGATIVE /LPF Urine Culture Indicated NO My Orders Orders - RICK NUNEZ APRN Cbc With Automated Diff (11/10/18 17:42) Comprehensive Metabolic Panel (11/10/18 17:42) Ua Culture If Indicated (11/10/18 17:42) Ed Iv/Invasive Line Start (11/10/18 17:42) Lactated Ringers (Lr 1000 Ml Iv Solution (11/10/18 17:45) Fentanyl Injection (Sublimaze Injection (11/10/18 17:45) Ct Abdomen/Pelvis W (11/10/18 17:43) Iohexol Injection (Omnipaque 350 Mg/Ml 1 (11/10/18 18:15) Received Contrast (Hold Metformin- Contr (11/10/18 18:15) Sodium Chloride Flush (Catheter Flush Sy (11/10/18 18:15) Ns (Ivpb) (Sodium Chloride 0.9% Ivpb Bag (11/10/18 18:15) Amoxicillin/Clavulanate Tablet (Augmenti (11/10/18 20:15) Rx-Ondansetron Po (Rx-Zofran Po) (11/10/18 20:02) Medications Given in ED Current Medications Medications Dose Ordered Sig/Nataliia Route Start Time Stop Time Status Last Admin Dose Admin Fentanyl Citrate 25 mcg ONCE PRN IVP 11/10/18 17:45 11/10/18 17:51 25 MCG Iohexol 100 ml ONCE ONCE IV 11/10/18 18:15 11/10/18 18:16 DC 11/10/18 18:55 83 ML Sodium Chloride 10 ml NEEDED PRN IV 11/10/18 18:15 11/10/18 18:55 10 ML Sodium Chloride 100 ml ONCE ONCE IV 11/10/18 18:15 11/10/18 18:16 DC 11/10/18 18:55 80 ML Vital Signs/I&O 11/10/18 17:20 Temp 98.2 Pulse 77 Resp 20 B/P (MAP) 189/89 (122) Pulse Ox 97 Blood Pressure Mean: 122 Diagnostic Imaging Diagonstic Imaging: Xray Comments NAME: PAMELA VÁSQUEZ REC#: [id number] PT STATUS: REG ER : 1940 PHYSICIAN: RICK NUNEZ ACCOUNTS ADJUSTABLE CLERK ADMIT DATE: 11/10/18/ER Draft Date of Exam:11/10/18 CT ABDOMEN/PELVIS W PROCEDURE: CT abdomen and pelvis with contrast. TECHNIQUE: Multiple contiguous axial images were obtained through the abdomen and pelvis after administration of intravenous contrast. Auto Exposure Controls were utilized during the CT exam to meet ALARA standards for radiation dose reduction. INDICATION: Left lower quadrant abdominal pain, fatigue, and diarrhea. COMPARISON: None available. FINDINGS: There is mild subsegmental dependent atelectasis in both lower lobes. A partially visualized 4 mm pulmonary nodule in the right lower lobe and a 4 mm nodule demonstrated in the right middle lobe. These are of doubtful clinical significance and no further follow-up is recommended, per Fleischner Society recommendations (Radiology, 2017 [place];284(1):228-243). The visualized heart is normal in size. The liver, spleen, gallbladder, pancreas, and adrenal glands are unremarkable. The kidneys are symmetric in size and demonstrate normal enhancement, without evidence of renal calculus or hydronephrosis on either side. The visualized ureters are normal. There is moderate colonic diverticulosis, with focal short segment thickening involving the distal descending colon near the junction with the sigmoid colon. There is mild pericolonic inflammatory change in this region. There is no pneumoperitoneum or focal/loculated or rim-enhancing collection. There is no evidence of bowel obstruction. The appendix is normal. No lymphadenopathy is appreciated. There is mild calcified atherosclerotic plaque involving the abdominal aorta, without aneurysmal dilatation. There is no evidence of venous thrombosis. The bladder is normal. The uterus demonstrates a normal CT appearance. There is no adnexal mass or pelvic free fluid. The abdominal wall is unremarkable. Multilevel degenerative changes involve the spine. No acute osseous abnormality is appreciated. IMPRESSION: Acute diverticulitis involving the distal descending colon near the junction with the sigmoid colon. There is no evidence of perforation or abscess formation. Dictated on workstation # [id number] Dict: 11/10/181917 Trans: 11/10/181934 [id number] Interpreted by: NIDA CANTU DO Electronically signed by: Departure Communication (Admissions) I discussed with the patient the need for antibiotics and pain control. She has a multitude of side effects that she considers to be allergies. She states that Augmentin causes her terrible nausea and diarrhea. She states that Cipro gives her a rash. Flagyl she cannot tolerate. Sulfa she is allergic to so Bactrim is out. She cannot have doxycycline. She states shed like something for the pain. She states that Ultram is a joke, she is allergic to codeine, oxycodone and hydrocodone both make her "see bats". I suggested Tylenol and Motrin and she states she is already taking those. I informed her there is nothing more I can do. I suggested Augmentin antibiotics with Zofran as needed for the nausea. She has several papers with her where she has written down any symptoms that she experienced after taking an antibiotic or any medicine for that matter. Of the limited list of medications that she can take, she also states that they must be small in size because she cannot swallow large ones. We will still have to use Augmentin and crush. Impression Primary Impression: Sigmoid diverticulitis Disposition: 01 HOME, SELF-CARE Condition: Stable Departure-Patient Inst. Decision time for Depature: 19:40 Referrals: MARTA FINN MD (PCP/Family) Primary Care Physician HECTOR MCKEON DO Patient Instructions: Diverticulitis Add. Discharge Instructions: 1. Antibiotics as directed. You can crush this up with the pill glass crusher as needed. A side effect that happens with everyone taking Augmentin is some upset stomach and diarrhea. Unfortunately this is a side effect you may have to tolerate for a few days while we are getting this infection in the colon under control. Take the nausea medication as needed to avoid this bothersome side effect of nausea. Take the antibiotic with food. You should do clear liquids for the first 2 days, this includes Jell-O chicken broth for beef broth, Gatorade. 2. Clear liquids only for the next 2 days. Follow-up with surgeon Dr. Mckeon in about 2-3 weeks. Return to the ER promptly for any increasing pain, fever or vomiting. All discharge instructions reviewed with patient and/or family. Voiced understanding. Scripts Amoxicillin/Potassium Clav (Augmentin 875-125 Tablet) 1 Each Tablet 1 EACH PO BID, #14 TAB 0 Refills Prov: RICK NUNEZ APRN 11/10/18 Copy Copies To 1: MARTA FINN MD; HECTOR MCKEON PETER J APRN Nov 10, 2018 17:47
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
--- OUTSIDE RECORDS SUMMARY | 2018-11-10 17:47 | XMS REPORT | Encounter Summary ---
Author Author [facility] Organization [facility] Address Unknown Phone Unavailable Care Team Providers Care Cooking Casing And Drying Supervisor Name Role Phone Ange Frazier MD PCP Encounter Details Care Team Description Date Type Department [facility], Historical 02/27/2011 PracPart Note [facility] Social History Date Tobacco Use Types Packs/Day Years Used Never Assessed Sex Assigned at Date Recorded Not on file Industry Job Start Date Occupation Not on file Not on file Not on file Travel End Travel History Travel Start No recent travel history available. documented as of this encounter Progress Notes * [facility], Historical - 02/27/2011 8:47 AM STATISTICAL GENETICIST . : 08:47am Marital Status: Children: 2 males 47, 46 - 1 female 43 Amount of Caffeine: Coffee: 1/day Tea: 1/da y sometimes, not always Soda: 1/day Do you smoke: cigarettes, cigars, pipe, etc: no How often: Alcohol: yes How often: Social Occupation: Retired: yes Are you Claustrophobic? yes sometimes documented in this encounter Plan of Treatment Not on filedocumented as of this encounter Visit Diagnoses Not on filedocumented in this encounter
--- OUTSIDE RECORDS SUMMARY | 2018-11-10 17:47 | XMS REPORT | Encounter Summary ---
Author Author [facility] Organization [facility] Address Unknown Phone Unavailable Care Team Providers Care Assistant Department Manager Name Role Phone Ange Frazier MD PCP Encounter Details Care Team Description Date Type Department Ivan Morrow MD No Forwarding Address 03/16/2011 PracPart Note [facility] Neurology [address] [address] Social History Date Tobacco Use Types Packs/Day Years Used Never Assessed Sex Assigned at Date Recorded Not on file Industry Job Start Date Occupation Not on file Not on file Not on file Travel End Travel History Travel Start No recent travel history available. documented as of this encounter Progress Notes * Ivan Morrow MD - 03/16/2011 4:41 PM SPINDLE MAKER . :04:41PM .T:Phone call from patient From: Ivan Morrow ([facility]) Originated by: Ivan Morrow ([facility]) Sent: 011 at 04:41PM To: Erica Pop) Type: CHART Priority: 3 Subject: Phone call from patient they are fine -- ok to exercise --sa 03/16/11 4:56pm I spoke with Sydnee and relayed the above message. She will call if she has any further questions or concerns. Erica adrian Original Message: From: To: Subject: Phone call from patient Priority: 3 Date: 03/16/2011 Nurse Note: 03/16/11 Providers: : Physician Response: Reason for Call: Next Visit: 04/03/11 - This 70 years old female reports by phone she is anxious for her echo and carotid duplex results. She would like to start exercising wan ts to make sure it's okay. Please advise. Thanks! Erica nguyễn Call this patient at Home yes Other Contact Name and Number Current medications: Current Medications: Rx: CALCIUM + D 2 daily Rx: CLARITAN D 1 daily Rx: LISINOPRIL 20mg 1 daily Rx: MOVE FREE 2 daily Rx: MULTI VITAMIN 1 daily Rx: PRAVASTATIN 40mg 1 daily Rx: PREMARIN 0.625mg 1 5 days/week Rx: PROVERA 2.5mg 1 5 days/week Rx: SYNTHROID 125mcg 1 daily 02/27/11 Ange Frazier MD [address] [place] [id number] RE: Sydnee Love : 42 Dear Ange: I saw Sydnee Love in the presence of her friend on 02/27/11 at our [facility] for evaluation of brief spell of [...] was not feeling well. She told the pari mutuel ticket cashier lexa nd was told to sit down. She [...] She was told to go to the [facility] Room. Head CT showed elements of ischemia in the left internal capsule. In the past in 2006, she had an MRI of the brain, which I reviewed. This showed scattered small vessel disease with lacunar areas of ischemia. This was thought perhaps related to her migraine headaches or perhaps to small vessel disease. She was placed back on aspirin by the [facility]. She mistry s been compliant [...] pronator drift. No resting or intention tremor. Fhvdoe-wt-nuqr was intact without dystaxia. I suspect that [...] at length in terms of what w e can accomplish, decreased risk for future stroke. I am not concerned by the e lements seen on the imaging studies both in [...] try to dissolve clots and occlusions. Sincerely, SMA:lr documented in this encounter Plan of Treatment Not on filedocumented as of this encounter Visit Diagnoses Not on filedocumented in this encounter
--- OUTSIDE RECORDS SUMMARY | 2018-11-10 17:47 | XMS REPORT | Encounter Summary ---
Author Author [facility] Organization [facility] Address Unknown Phone Unavailable Care Team Providers Care Geosciences Associate Professor Name Role Phone Ange Frazier MD PCP Encounter Details Care Team Description Date Type Department [facility] ProviderJavon MD 03/05/2011 [facility] HISTORIC CLINIC Result Social History [...] Associated Diagnosis CV US CAROTID DUPLEX Routine 03/05/2011 HISTORICAL documented in this encounter Results * CV US Carotid Duplex historical (03/05/2011) Specimen Narrative Performed At Procedure Category: ECHO NEXTGEN Procedure: Carotid Duplex Procedure Summary: Mild atherosclerotic plaque with no evidence for a hemodynamically significant stenosis. Both vertebral arteries are patent with antegrade flow. Procedure Note Interface, Rad Conversion - 11/17/2014 1:58 PM CDT Procedure Category: ECHO Procedure: Carotid Duplex Procedure Summary: Mild atherosclerotic plaque with no evidence for a hemodynamically significant stenosis. Both vertebral arteries are patent with antegrade flow. Performing Organization Address City/State/Zipcode Phone Number NEXTGEN documented in this encounter Visit Diagnoses Not on filedocumented in this encounter
--- OUTSIDE RECORDS SUMMARY | 2018-11-10 17:47 | XMS REPORT | Encounter Summary ---
Author Author [facility] Organization [facility] Address Unknown Phone Unavailable Care Team Providers Care Director Project Management Name Role Phone Ange Frazier MD PCP Encounter Details Care Team Description Date Type Department [facility] ProviderJavon MD 03/05/2011 [facility] HISTORIC CLINIC Result Social History Date [...] Priority Date/Time Associated Diagnosis ECHO HISTORICAL Routine 03/05/2011 documented in this encounter Results * Echo historical (03/05/2011) Specimen Narrative Performed At Procedure Category: ECHO NEXTGEN Procedure: Echocardiogram Procedure Summary: 1. Normal left ventricular systolic function, with an estimated ejection fraction of 60%. 2. No significant valvular abnormalities. 3. Mobile interatrial septum without obvious evidence for patent foramen ovale based on color flow Doppler. 4. No previous study available for comparison. Procedure Note Interface, Rad Conversion - 11/17/2014 1:58 PM CDT Procedure Category: ECHO Procedure: Echocardiogram Procedure Summary: 1. Normal left ventricular systolic function, with an estimated ejection fraction of 60%. 2. No significant valvular abnormalities. 3. Mobile interatrial septum without obvious evidence for patent foramen ovale based on color flow Doppler. 4. No previous study available for comparison. Performing Organization Address City/State/Zipcode Phone Number NEXTGEN documented in this encounter Visit Diagnoses Not on filedocumented in this encounter
--- OUTSIDE RECORDS SUMMARY | 2018-11-10 17:47 | XMS REPORT | Encounter Summary ---
Author Author [facility] Organization [facility] Address Unknown Phone Unavailable Care Team Providers Care Dividing Machine Operator Helper Name Role Phone Ange Frazier MD PCP Encounter Details Care Team Description Date Type Department [facility], Historical 03/10/2011 PracPart Note [facility] Social History Date Tobacco Use Types Packs/Day Years Used Never Assessed Sex Assigned at Date Recorded Not on file Industry Job Start Date Occupation Not on file Not on file Not on file Travel End Travel History Travel Start No recent travel history available. documented as of this encounter Progress Notes * [facility], Historical - 03/10/2011 2:28 PM PHARMACOLOGIST . :02:28PM .T:test results From: AKILAH OTTO (MIKEL) Originated by: AKILAH OTTO (MIKEL) Sent: 03/10/2011 at 02:28PM To: Lashawn Gross) Type: CHART Priority: 3 Subject: test results Original Message: Results linked to chart. Not sure if there are addtional doppl er results, let me know Akilah From: NARENDRA To: MIKEL Subject: test results Priority: 3 Date: 03/10/2011 Akilah: Can you please locate and link the patient's recent carotid duplex and TTE resul ts? thanks....NARENDRA documented in this encounter Plan of Treatment Not on filedocumented as of this encounter Visit Diagnoses Not on filedocumented in this encounter
--- OUTSIDE RECORDS SUMMARY | 2018-11-10 17:47 | XMS REPORT | Encounter Summary ---
Author Author [facility] Organization [facility] Address Unknown Phone Unavailable Care Team Providers Care Custody Assistant Name Role Phone PCP Unavailable Encounter Details Care Team Description Date Type Department Ivan Morrow MD No Forwarding Address Generalized and unspecified atherosclerosis 03/05/2011 [place] [address] Social History Date Tobacco Use Types Packs/Day [...] unit Tab documented as of this encounter Plan of Treatment Not on filedocumented as of this encounter Procedures Comments Procedure Name Priority Date/Time Associated Diagnosis ECHO TRANSTHORACIC Routine 03/05/2011 2:58 PM INDUSTRIAL THERAPIST documented in this encounter Results * ECHO TRANSTHORACIC (03/05/2011 2:58 PM INDUSTRIAL THERAPIST) Specimen Narrative Performed At [facility] RAD ECHOCARDIOGRAM REPORT [facility] Name: PAMELA VÁSQUEZ Date: 03/05/2011 14:58 Chart #: [id number] : 1940 Location: [facility] Sono: mmartin Age: 70 Gender: F Referring: IVAN MORROW Room #: OP Indication -TIA Procedure -[id number] Complete Echo 2D/Colorflow/Doppler BP: / HR: 83 Ht: 62 Wt: 129 BSA: 1.6 2D ECHO MEASUREMENTS LV Diastolic Diameter Bas3.4 cm3.6-5.4LVPW Diastolic Thickness 0.9 cm0.6-1.1 LV Systolic Diameter Base2 cm2.3-4.0Aorta at Sinuses Diameter2.9 cm2.1-3.5 LA Systolic Diameter LX2.8 cm2.3-3.8Ascending Aorta Diameter 2.7 cm2.1-3.4 IVS Diastolic Thickness0.9 cm0.6-1.1 TRICUSPID VALVE DOPPLER RV Systolic Pressure 28 [...] Thickened mitral valve with trivial regurgitation. Normal pulmonic valve with trivial regurgitation. Normal tricuspid valve with mild regurgitation.Estimated PA pressure=28 mmHg. No pericardial effusion. IVC is responsive to inspiration indicating normal RA pressure. Normal ascending aorta dimensions. No obvious intracardiac masses or thrombi. Mobile interatrial septum without obvious evidence for patent foramen ovale based on color flow Doppler. CONCLUSIONS: 1. Normal left ventricular systolic function, with an estimated ejection fraction of 60%. 2. No significant valvular abnormalities. 3. Mobile interatrial septum without obvious evidence for patent foramen ovale based on color flow Doppler. 4. No previous study available for comparison. Marga Serrano M.D. (Electronically Signed) Final Date: Procedure Note Interface, Rad Conversion - 06/27/2013 12:48 PM CDT RESULT ECHOCARDIOGRAM REPORT [facility] Name: PAMELA VÁSQUEZ Date: 03/05/2011 14:58 Chart #: [id number] : 1940 Location: [facility] Sono: mmartin Age: 70 Gender: F Referring: IVAN MORROW Room #: OP Indication -TIA Procedure -[id number] Complete Echo 2D/Colorflow/Doppler BP: / HR: 83 Ht: 62 Wt: 129 BSA: 1.6 2D ECHO MEASUREMENTS LV Diastolic Diameter Bas 3.4 cm 3.6-5.4 LVPW Diastolic Thickness 0.9 cm 0.6-1.1 LV Systolic Diameter Base 2 cm 2.3-4.0 Aorta at Sinuses Diameter 2.9 cm 2.1-3.5 LA Systolic Diameter LX 2.8 cm 2.3-3.8 Ascending Aorta Diameter 2.7 cm 2.1-3.4 IVS Diastolic Thickness 0.9 cm 0.6-1.1 TRICUSPID VALVE DOPPLER RV Systolic Pressure 28 [...] Thickened mitral valve with trivial regurgitation. Normal pulmonic valve with trivial regurgitation. Normal tricuspid valve with mild regurgitation. Estimated PA pressure=28 mmHg. No pericardial effusion. IVC is responsive to inspiration indicating normal RA pressure. Normal ascending aorta dimensions. No obvious intracardiac masses or thrombi. Mobile interatrial septum without obvious evidence for patent foramen ovale based on color flow Doppler. CONCLUSIONS: 1. Normal left ventricular systolic function, with an estimated ejection fraction of 60%. 2. No significant valvular abnormalities. 3. Mobile interatrial septum without obvious evidence for patent foramen ovale based on color flow Doppler. 4. No previous study available for comparison. Marga Serrano M.D. (Electronically Signed) Final Date: Performing Organization Address City/State/Zipcode Phone Number [facility]ARD[facility] RAD [address] [place] [address] documented in this encounter Visit Diagnoses Diagnosis Generalized and unspecified atherosclerosis documented in this encounter
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
--- OUTSIDE RECORDS SUMMARY | 2018-11-10 17:47 | XMS REPORT | Encounter Summary ---
Author Author [facility] Organization [facility] Address Unknown Phone Unavailable Care Team Providers Care Emergency Room Doctor Name Role Phone PCP Unavailable Encounter Details Care Team Description Date Type Department Huan Harding MD [address], [place] [id number] Emergency, PhysicianMD Headache 01/22/2011 [place] [address] Social History Date Tobacco Use Types Packs/Day [...] Comments Procedure Name Priority Date/Time Associated Diagnosis CT HEAD WO CONTRAST Routine 01/22/2011 11:21 AM CDT GLUCOSE POINT OF CARE Routine 01/22/2011 11:15 AM CDT TROPONIN Routine 01/22/2011 11:06 AM CDT MAGNESIUM Routine 01/22/2011 11:06 AM CDT COMPLETE BLOOD COUNT Routine 01/22/2011 11:06 AM CDT COAGULATION SCREEN Routine 01/22/2011 11:06 AM CDT BASIC METABOLIC PANEL Routine 01/22/2011 11:06 AM CDT documented in this encounter Results * CT Head wo contrast (01/22/2011 11:21 AM CDT) Specimen Narrative Performed At REPORT [facility] Patient:SYDNEE VÁSQUEZ Phone #:Med Rec#:[id number] Sex:F :[employer]#: [id number] Location: [facility] Check-in#: [id number] Procedure Requested: [id number] CT HEAD WO CONTRAST Reason For Exam: HEADACHE Exam Ordered:01/22/2011 1113 Exam Date/Time:01/22/2011 112 Check-in Date/Time:01/22/2011 111 Attendin EMERGENCY, PHYSICIAN "" Requestin HUAN HARDING Referring: , Primary Care: [id number] ROBERT MONK MD CT HEAD WO CONTRAST HEADACHE History: Code stroke. Comparison:None. Jan 22, 2011 11:21:00 AM Findings:Technique:4.5 mm unenhanced helical images were obtained of the brain. No bleed, mass, midline shift, hydrocephalus, or extra-axial fluid collections is seen. No fractures identified.The visualized paranasal sinuses and mastoid air cells are clear. A few small areas of ill-defined hypodensity are identified in the left subcortical white matter/internal capsule lateral to the frontal horn of the left lateral ventricle as seen on images #15-17 dash. These may represent age-indeterminate infarcts, likely subacute. There is no midline shift. Impression: Hypodensity in left internal capsule/periventricular white matter adjacent to the frontal horn of the left lateral ventricle. These may represent age-indeterminate/subacute infarcts. Finding was called to Dr. Harding at time of interpretation on 01-22-11 at 1150 hours. CRITICAL FINDINGS: The findings of possible subacute infarctwere called to Dr. Dr. Harding at 01-22-11 at 1150 hours. Notification of these findings verified by readback. Signed (Authenticated, Released) Date-Time: 01/22/2011 1154 Steelworker- LINWOOD PICKENS, Staff Radiologist Dictated By- LINWOOD M YETTERM.D., Staff Radiologist Staff Physician- LINWOOD PICKENS, Staff Radiologist Authenticated By- LINWOOD PICKENS, Staff Radiologist Procedure Note Interface, Rad Conversion - 06/17/2013 11:40 AM THREAD CUTTER REPORT Patient: SYDNEE VÁSQUEZ Phone #: [employer] Rec#: [id number] Sex: F : 1940 Cindy#: [id number] Location: [facility] Check-in#: [id number] Procedure Requested: [id number] CT HEAD WO CONTRAST Reason For Exam: HEADACHE Exam Ordered: 01/22/2011 1113 Exam Date/Time: 01/22/2011 1121 Check-in Date/Time: 01/22/2011 111 Attendin EMERGENCY, PHYSICIAN "" Requestin HUAN HARDING Referring: , Primary Care: [id number] ROBERT MONK MD CT HEAD WO CONTRAST HEADACHE History: Code stroke. Comparison: None. Jan 22, 2011 11:21:00 AM Findings: Technique: 4.5 mm unenhanced helical images were obtained of the brain. No bleed, mass, midline shift, hydrocephalus, or extra-axial fluid collections is seen. No fractures identified. The visualized paranasal sinuses and mastoid air cells are clear. A few small areas of ill-defined hypodensity are identified in the left subcortical white matter/internal capsule lateral to the frontal horn of the left lateral ventricle as seen on images #15-17 dash. These may represent age-indeterminate infarcts, likely subacute. There is no midline shift. Impression: Hypodensity in left internal capsule/periventricular white matter adjacent to the frontal horn of the left lateral ventricle. These may represent age-indeterminate/subacute infarcts. Finding was called to Dr. Harding at time of interpretation on 01-22-11 at 1150 hours. CRITICAL FINDINGS: The findings of possible subacute infarct were called to Dr. Dr. Harding at 01-22-11 at 1150 hours. Notification of these findings verified by readback. Signed (Authenticated, Released) Date-Time: 01/22/2011 1154 Steelworker- LINWOOD MERAZ M.D., Staff Radiologist Dictated By- LINWOOD MERAZ M.D., Staff Radiologist Staff Physician- LINWOOD MERAZ M.D., Staff Radiologist Authenticated By- LINWOOD MERAZ M.D., Staff Radiologist Performing Organization Address [facility] Phone Number MCK[facility] * Glucose Point of Care (01/22/2011 11:15 AM CDT) Glucose 123 (H) 65 - 100 MG/DL [facility] Specimen Blood Performing Organization Address [facility] Phone Number [address] [place] [address] [facility] * Complete Blood Count (01/22/2011 11:06 AM CDT) WBC 7.61 4.00 - 11.00 TH/UL [facility] RBC 4.36 4.00 - 5.00 MIL/UL [facility] Hemoglobin 13.7 12.0 - 15.0 G/DL [facility] Hematocrit 40 36 - 45 % [facility] MCV 91 80 - 99 FL [facility] MCH 31 27 - 34 PG [facility] MCHC 35 32 - 36 % [facility] RDW 12.2 9.0 - 14.5 % [facility] Platelet Count 280 140 - 400 TH/UL [facility] MPV 9.9 9.4 - 12.3 FL [facility] Specimen Blood Performing Organization Address [facility] Phone Number [address] [place] [address] [facility] * Coagulation Screen (01/22/2011 11:06 AM CDT) Protime 13.4 11.7 - 14.3 SEC [facility] APTT 30 22 - 34 SEC [facility] Fibrinogen 276 146 - 390 MG/DL [facility] Assay INR 1.1 0.9 - 1.1 [facility] Specimen Blood Performing Organization Address [facility] Phone Number [address] [place] [address] [facility] * Basic Metabolic Panel (01/22/2011 11:06 AM CDT) Sodium 137 134 - 144 MEQ/L [facility] Potassium 3.7 3.5 - 5.1 MEQ/L [facility] Chloride 99 (L) 101 - 111 MEQ/L [facility] Carbon Dioxide 30 23 - 32 MEQ/L [facility] Anion Gap 8 3 - 15 [facility] Creatinine 0.8 0.4 - 1.1 MG/DL [facility] Blood Urea 10 8 - 26 MG/DL [facility] Nitrogen Glucose 91 65 - 100 MG/DL [facility] Calcium 9.3 8.8 - 10.5 MG/DL [facility] eGFR Female 71 [facility] Non-AA Comment: Chronic Kidney Disease less than 60 mL/min/1.73 sq.m Kidney failure less than 15 mL/min/1.73 sq.m eGFR Female AA 85 [facility] Comment: Chronic Kidney Disease less than 60 mL/min/1.73 sq.m Kidney failure less than 15 mL/min/1.73 sq.m Specimen Blood Performing Organization Address [facility] Phone Number [address] [place] [address] [facility] * Magnesium (01/22/2011 11:06 AM CDT) Magnesium 1.7 1.4 - 2.0 MEQ/L [facility] Specimen Blood Performing Organization Address [facility] Phone Number [address] [place] [address] [facility]QUEST * Troponin (01/22/2011 11:06 AM CDT) Troponin <0.01 0.00 - 0.07 NG/ML [facility] Comment: Troponin ValueInterpretation 0.00 - 0.07 Healthy 0.08 - 0.50 Increased Cardiac Risk >0.50M yocardial Infarction Troponin may not become elevated until 6 to 8 hours after onset of symptoms. Specimen Blood Performing Organization Address [facility] Phone Number [address] [place] [address] [facility] documented in this encounter Visit Diagnoses Diagnosis Headache(784.0) Headache documented in this encounter
--- OUTSIDE RECORDS SUMMARY | 2018-11-10 17:47 | XMS REPORT | Encounter Summary ---
Author Author [facility] Organization [facility] Address Unknown Phone Unavailable Care Team Providers Care Mechanical Manufacturing Technician Name Role Phone PCP Unavailable Encounter Details Care Team Description Date Type Department Liss[place] [id number] [place] [address] [phone] Pain in Joint, Shoulder Region 03/27/2009 [facility] [id number] [place] [address] Social History Date Tobacco Use Types Packs/Day [...] Comments Procedure Name Priority Date/Time Associated Diagnosis XR HUMERUS MIN 2 VIEWS Routine 03/27/2009 LEFT 10:50 AM CLINIC BUSINESS MANAGER documented in this encounter Results * XR Humerus min 2 views left (03/27/2009 10:50 AM CLINIC BUSINESS MANAGER) Specimen Narrative Performed At [facility] Patient:PAMELA VÁSQUEZ Phone #:Med Rec#:[id number] Sex:F :[employer]#: [id number] Location: [facility] Check-in#: [id number] Procedure Requested: [id number] DX HUMERUS MIN 2 VIEW LEFT Reason For Exam: ARM PAIN Exam Ordered:03/27/2009 1038 Exam Date/Time:03/27/2009 1100 Check-in Date/Time:03/27/2009 1038 AttendinLISSETTE MILLAN RequestinLISSETTE MILLAN Referring: , Primary Care:, Exam:DX HUMERUS MIN 2 VIEW LEFT, 2 views. Date of exam:Mar 27, 2009 11:00:00 AM History: ARM PAIN, Findings: The radiographs demonstrate no fractures or dislocations. There is calcification lateral to the humeral head. Degenerative changes are seen in the acromioclavicular joint. 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 Otherwise, -2 views of the left humerus. Signed (Authenticated, Released) Date-Time: 03/27/2009 1110 Ergonomics Engineer- MACIEL DUNN, Staff Radiologist Dictated By- MACIEL DUNN, Staff Radiologist Staff Physician- MACIEL DUNN, Staff Radiologist Authenticated ByJose DUNN, Staff Radiologist Procedure Note Interface, Rad Conversion - 06/18/2013 3:20 AM CLINIC BUSINESS MANAGER REPORT Patient: PAMELA VÁSQUEZ Phone #: Med Rec#: [id number] Sex: F : 1940 Cindy#: [id number] Location: [facility] Check-in#: [id number] Procedure Requested: [id number] DX HUMERUS MIN 2 VIEW LEFT Reason For Exam: ARM PAIN Exam Ordered: 03/27/2009 1038 Exam Date/Time: 03/27/2009 1100 Check-in Date/Time: 03/27/2009 1038 AttendinLISSETTE MILLAN RequestinLISSETTE MILLAN Referring: , Primary Care: , Exam: DX HUMERUS MIN 2 VIEW LEFT, 2 views. Date of exam: Mar 27, 2009 11:00:00 AM History: ARM PAIN, Findings: The radiographs demonstrate no fractures or dislocations. There is calcification lateral to the humeral head. Degenerative changes are seen in the acromioclavicular joint. 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 Otherwise, -2 views of the left humerus. Signed (Authenticated, Released) Date-Time: 03/27/2009 1110 Ergonomics Engineer- MACIEL KATE M.D., Staff Radiologist Dictated By- MACIEL KATE M.D., Staff Radiologist Staff Physician- MACIEL KATE M.D., Staff Radiologist Authenticated By- MACIEL KATE M.D., Staff Radiologist Performing Organization Address City/State/Zipcode Phone Number MCKESSON documented in this encounter Visit Diagnoses Diagnosis Pain in joint, shoulder region documented in this encounter
--- OUTSIDE RECORDS SUMMARY | 2018-11-10 17:47 | XMS REPORT | Encounter Summary ---
Author Author [facility] Organization [facility] Address Unknown Phone Unavailable Care Team Providers Care Professor Of English Name Role Phone Ange Frazier MD PCP Encounter Details Care Team Description Date Type Department [facility], Historical 02/27/2011 [facility] Note [facility] Social History Date Tobacco Use Types Packs/Day Years Used Never Assessed Sex Assigned at Date Recorded Not on file Industry Job Start Date Occupation Not on file Not on file Not on file Travel End Travel History Travel Start No recent travel history available. 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 : 08:48am Hypertension: yes Father, mother Hyperlipidemia: yes Father Coronary heart disease: yes Father Diabetes mellitus: no Migraines: yes Mother CVD / Stroke: yes Father Alcoholism: yes Father Epilepsy: no Mental illness: no Other: no Alzheimers - Mother Cancer - Mother, colon documented in this encounter Plan of Treatment Not on filedocumented as of this encounter Visit Diagnoses Not on filedocumented in this encounter
[2018-11-10 17:48] LABS: BASOPHILS % (AUTO) 0 % (0-10); EOSINOPHILS # (AUTO) 0.2 10^3/uL (0.0-0.3); EOSINOPHILS % (AUTO) 2 % (0-10); HEMATOCRIT 36 % (35-52); HEMOGLOBIN 11.6 G/DL (11.5-16.0); LYMPHOCYTES # (AUTO) 1.9 X 10^3 (1.0-4.0); LYMPHOCYTES % (AUTO) 17 % (12-44); MEAN CORPUSCULAR HEMOGLOBIN 29 PG (25-34); MEAN CORPUSCULAR HGB CONC 32 G/DL (32-36); MEAN CORPUSCULAR VOLUME 91 FL (80-99); MEAN PLATELET VOLUME 9.9 FL (7.4-10.4); MONOCYTES % (AUTO) 9 % (0-12); NEUTROPHILS % (AUTO) 73 % (42-75); PLATELET COUNT 242 10^3/uL (130-400); RED CELL DISTRIBUTION WIDTH 13.3 % (10.0-14.5); WHITE BLOOD COUNT 11.1 10^3/uL (4.3-11.0)
--- OUTSIDE RECORDS SUMMARY | 2018-11-10 17:51 | XMS REPORT | CCD ---
Author Author [facility] Organization [facility] Address [address] [place] [address] Phone Care Team Providers Care Radio Interference Trouble Shooter Name Role Phone PP Unavailable CCM Unavailable Summary Purpose Interface Exchange Insurance Providers Payer name Policy type / Coverage type Covered democrat ID Effective Begin Date Effective End Date WPS Medicare Part B Medicare Part B [id number] Unknown [place] [employer] Insurance Medicare Part B [id number] Unknown Family history Mother Diagnosis Age At [...] spouses - 02/11/[address]: [id number] Never smoker 02/11/2015 Alcohol history Unknown occasionally drinks alcohol 02/11/2015 Allergies, Adverse Reactions, Alerts Substance Reaction Codes Entered Date Inactivated Date Status CODEINE RxNorm: 2670 02/11/2015 No Inactive Date Active allergy Unknown 12/23/2016 No Inactive Date Active ciprofloxacin rash, RxNorm: 95733 02/26/2015 No Inactive Date Active hydrocodone Unknown 02/11/2015 No Inactive Date Active PREDNISONE RxNorm: 8640 03/29/2018 No Inactive Date Active CORTICOSTEROIDS (GLUCOCORTICOIDS) Unknown 08/04/2018 No Inactive Date Active GABAPENTIN Unknown 12/23/2016 No Inactive Date Active SULFA (SULFONAMIDES) Unknown 02/11/2015 No Inactive Date Active Past Medical History Illness Codes Condition Status Onset Date Resolved Date 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 Active 06/01/2016 Unknown Essential (primary) hypertension ICD-9: 401.1 ICD-10: I10 Active 04/01/2018 Unknown Dysuria ICD-9: 788.1 ICD-10: R30.0 Active 02/20/2015 Unknown Other fatigue ICD-9: 780.79 ICD-10: R53.83 Active 02/26/2016 Unknown Other allergic rhinitis ICD-9: 477.8 ICD-10: J30.89 Active 02/26/2016 Unknown Low back pain ICD-9: 724.2 ICD-10: M54.5 Active 04/21/2018 Unknown Other malaise ICD-9: 780.79 ICD-10: R53.81 Active 09/22/2017 Unknown Otalgia, right ear ICD- 9: 388.70 ICD-10: H92.01 Active 03/25/2017 Unknown Headache ICD-9: 784.0 ICD-10: R51 Active 07/06/2016 Unknown Hypothyroidism, unspecified ICD-9: 244.9 ICD-10: E03.9 Active 02/26/2016 Unknown Nausea ICD-9: 787.02 ICD-10: R11.0 Active 04/04/2018 Unknown Acute laryngopharyngitis ICD-9: 465.0 ICD-10: J06.0 Active 02/26/2016 Unknown Candidal stomatitis ICD- 9: 112.0 ICD-10: B37.0 Active 04/01/2018 Unknown Dizziness and giddiness ICD-9: 780.4 ICD-10: R42 Active 09/28/2016 Unknown Other acute sinusitis ICD- 9: 461.8 ICD-10: J01.80 Active 11/03/2017 Unknown Acute recurrent maxillary sinusitis ICD-9: 461.0 ICD-10: J01.01 Active 03/24/2018 Unknown Unspecified mycosis ICD- 9: 117.9 ICD-10: B49 Active 03/24/2018 Unknown Abnormal findings on diagnostic imaging of other specified body structures ICD-9: 793.99 ICD-10: R93.89 Active 03/01/2018 Unknown Encounter for general adult medical examination with abnormal findings ICD-9: V70.0 ICD-10: Z00.01 Active 12/23/2016 Unknown Acute cystitis with hematuria ICD-9: 595.0 ICD-10: N30.01 Active 11/18/2017 Unknown Anemia, unspecified ICD- 9: 285.9 ICD-10: D64.9 Active 09/27/2017 Unknown Pain in left knee ICD-9: 719.46 ICD-10: M25.562 Active 09/22/2017 Unknown Pain in right knee ICD- 9: 719.46 ICD-10: M25.561 Active 09/22/2017 Unknown Acute bronchitis due to other specified organisms ICD-9: 466.0 ICD-10: J20.8 Active 04/01/2017 Unknown Cough ICD-9: 786.2 ICD-10: R05 Active 04/01/2017 Unknown Benign paroxysmal vertigo, bilateral ICD-9: 386.11 ICD-10: H81.13 Active 12/08/2016 Unknown Impaired fasting glucose ICD-9: 790.21 ICD-10: R73.01 Active 12/09/2016 Unknown Essential (primary) hypertension ICD-9: 401.9 ICD-10: I10 Active 09/09/2015 Unknown Mixed hyperlipidemia ICD- 9: 272.2 ICD-10: E78.2 Active 09/09/2015 Unknown Other [...] Problems Condition Codes Effective Dates Condition Status 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 06/01/2016 Active Essential (primary) hypertension ICD-9: 401.1 ICD-10: I10 04/01/2018 Active Dysuria ICD-9: 788.1 ICD-10: R30.0 02/20/2015 Active Other fatigue ICD-9: 780.79 ICD-10: R53.83 02/26/2016 Active Other allergic rhinitis ICD-9: 477.8 ICD-10: J30.89 02/26/2016 Active Low back pain ICD-9: 724.2 ICD-10: M54.5 04/21/2018 Active Other malaise ICD-9: 780.79 ICD-10: R53.81 09/22/2017 Active Otalgia, right ear ICD- 9: 388.70 ICD-10: H92.01 03/25/2017 Active Headache ICD-9: 784.0 ICD-10: R51 07/06/2016 Active Hypothyroidism, unspecified ICD-9: 244.9 ICD-10: E03.9 02/26/2016 Active Nausea ICD-9: 787.02 ICD-10: R11.0 04/04/2018 Active Acute laryngopharyngitis ICD-9: 465.0 ICD-10: J06.0 02/26/2016 Active Candidal stomatitis ICD- 9: 112.0 ICD-10: B37.0 04/01/2018 Active Dizziness and giddiness ICD-9: 780.4 ICD-10: R42 09/28/2016 Active Other acute sinusitis ICD- 9: 461.8 ICD-10: J01.80 11/03/2017 Active Acute recurrent maxillary sinusitis ICD-9: 461.0 ICD-10: J01.01 03/24/2018 Active Unspecified mycosis ICD- 9: 117.9 ICD-10: B49 03/24/2018 Active Abnormal findings on diagnostic imaging of other specified body structures ICD-9: 793.99 ICD-10: R93.89 03/01/2018 Active Encounter for general adult medical examination with abnormal findings ICD-9: V70.0 ICD-10: Z00.01 12/23/2016 Active Acute cystitis with hematuria ICD-9: 595.0 ICD-10: N30.01 11/18/2017 Active Anemia, unspecified ICD- 9: 285.9 ICD-10: D64.9 09/27/2017 Active Pain in left knee ICD-9: 719.46 ICD-10: M25.562 09/22/2017 Active Pain in right knee ICD- 9: 719.46 ICD-10: M25.561 09/22/2017 Active Acute bronchitis due to other specified organisms ICD-9: 466.0 ICD-10: J20.8 04/01/2017 Active Cough ICD-9: 786.2 ICD-10: R05 04/01/2017 Active Benign paroxysmal vertigo, bilateral ICD-9: 386.11 ICD-10: H81.13 12/08/2016 Active Impaired fasting glucose ICD-9: 790.21 ICD-10: R73.01 12/09/2016 Active Essential (primary) hypertension ICD-9: 401.9 ICD-10: I10 09/09/2015 Active Mixed hyperlipidemia ICD- 9: 272.2 ICD-10: E78.2 09/09/2015 Active Other specified [...] Fill Instructions lisinopril 20 mg tablet RxNorm: 919668 TAKE 1 TABLET BY MOUTH TWICE DAILY 09/20/2018 02/16/2019 Active Generic For:*PRINIVIL 20 MG TABLET 09/19/2018 12:01:26 PM Maxzide-25mg 37.5 mg-25 mg tablet RxNorm: 83591 1/2 Tablet(s) PO daily 09/06/2018 07/02/2019 Active please dispense generic pravastatin 80 mg tablet RxNorm: 009320 1 Tablet(s) PO daily 08/31/2018 08/25/2019 Active levocetirizine 5 mg tablet RxNorm: 561164 1 Tablet(s) PO daily 08/22/2018 02/17/2019 Active Synthroid 88 mcg tablet RxNorm: 962224 Tablet(s) TAKE 1 TABLET BY MOUTH DAILY 08/08/2018 12/05/2018 Active 03/07/2018 11:21:21 AM Flonase Allergy Relief 50 mcg/actuation nasal spray,suspension RxNorm: 8648939 1 [place] NASAL as needed 08/04/2018 08/04/2018 Inactive cefdinir 300 mg capsule RxNorm: 336073 1 Capsule(s) PO BID 07/20/2018 07/29/2018 Inactive Pyridium 200 mg tablet RxNorm: 6847018 1 Tablet(s) PO TID 07/20/2018 07/24/2018 Inactive meclizine 25 mg tablet RxNorm: 402338 1 Tablet(s) TID as needed 07/14/2018 No Stop Date Active dizziness nystatin 100,000 unit/gram topical cream RxNorm: 133485 1 Gram(s) TOP TID as needed 05/30/2018 No Stop Date Active levocetirizine 5 mg tablet RxNorm: 165615 1 Tablet(s) PO daily 05/30/2018 08/21/2018 Inactive metoprolol succinate ER 50 mg tablet,extended release 24 hr RxNorm: 217102 1 Tablet(s) daily may take 1 extra tab daily if systolic bp elevated 05/03/2018 11/28/2018 Active metoprolol succinate ER 50 mg tablet,extended release 24 hr RxNorm: 221290 Tablet(s) Tablet(s) TAKE 1 TABLET BY MOUTH DAILY 05/03/2018 05/02/2018 Inactive levocetirizine 5 mg tablet RxNorm: 918665 1 Tablet(s) PO daily 04/22/2018 04/21/2018 Inactive Singulair 10 mg tablet RxNorm: 837655 1 Tablet(s) PO QHS 04/22/2018 04/21/2018 Inactive lisinopril 20 mg tablet RxNorm: 478003 TAKE 1 TABLET BY MOUTH TWICE DAILY 04/22/2018 09/18/2018 Inactive Generic For:*PRINIVIL 20 MG TABLET 04/22/2018 9:57:59 AM Singulair 10 mg tablet RxNorm: 066710 1 Tablet(s) PO QHS 04/22/2018 05/12/2018 Inactive levocetirizine 5 mg tablet RxNorm: 127355 1 Tablet(s) PO daily 04/22/2018 05/21/2018 Inactive ceftriaxone 500 mg solution for injection RxNorm: 9246349 Inj 04/08/2018 04/08/2018 Inactive ceftriaxone 500 mg solution for injection RxNorm: 4519717 Inj 04/07/2018 04/07/2018 Inactive ceftriaxone 500 mg solution for injection RxNorm: 6725314 Inj 04/06/2018 04/06/2018 Inactive ketorolac 60 mg/2 mL intramuscular solution RxNorm: 3451265 Milliliter(s) IM 04/05/2018 04/05/2018 Inactive ceftriaxone 500 mg solution for injection RxNorm: 4012976 Inj 04/05/2018 04/05/2018 Inactive ondansetron 4 mg disintegrating tablet RxNorm: 119542 1 Tablet(s) PO TID as needed nausea 04/04/2018 No Stop Date Active ketorolac 30 mg/mL injection solution RxNorm: 213509 2 Milliliter(s) Inj 04/04/2018 04/04/2018 Inactive ceftriaxone 500 mg solution for injection RxNorm: 2970834 Inj 04/04/2018 04/04/2018 Inactive nystatin 100,000 unit/mL oral suspension RxNorm: 338409 4 Milliliter(s) PO QID 04/01/2018 04/05/2018 Inactive doxycycline hyclate 100 mg tablet RxNorm: 3978871 1 Tablet(s) PO BID 04/01/2018 04/10/2018 Inactive amoxicillin 500 mg capsule RxNorm: 621487 1 Capsule(s) PO TID 03/24/2018 04/02/2018 Inactive prednisone 10 mg tablet RxNorm: 612389 1 Tablet(s) PO UD 6 pills on day 1 and 2 and then decrease by one pill every other day until prescription is done 03/24/2018 05/12/2018 Inactive metoprolol succinate ER 50 mg tablet,extended release 24 hr RxNorm: 590376 Tablet(s) TAKE 1 TABLET BY MOUTH DAILY 03/21/2018 05/02/2018 Inactive PLEASE SEND REFILL REQUESTS ELECTRONICALLY!! Synthroid 88 mcg tablet RxNorm: 449093 TAKE 1 TABLET BY MOUTH DAILY 03/08/2018 08/04/2018 Inactive 03/07/2018 11:21:21 AM pravastatin 80 mg tablet RxNorm: 061164 Tablet(s) 1 Tablet(s) PO daily 03/01/2018 02/23/2019 Active Kenalog 40 mg/mL suspension for injection RxNorm: 7365902 Milliliter(s) Inj 12/24/2017 12/24/2017 Inactive cetirizine 10 mg tablet RxNorm: 2049099 TAKE 1 TABLET BY MOUTH DAILY 12/21/2017 04/19/2018 Inactive Generic For:*ZYRTEC 10 MG TABLET 12/21/2017 10:08:05 AM Synthroid 88 mcg tablet RxNorm: 311090 TAKE 1 TABLET BY MOUTH DAILY 12/07/2017 03/06/2018 Inactive 12/06/2017 11:46:49 AM Lipitor 80 mg tablet RxNorm: 238547 1 Tablet(s) PO daily 11/29/2017 02/28/2018 Inactive pravastatin 80 mg tablet RxNorm: 861392 1 Tablet(s) PO daily 11/29/2017 11/29/2017 Inactive Lipitor 80 mg tablet RxNorm: 520392 1 Tablet(s) PO daily 11/29/2017 11/28/2017 Inactive lisinopril 20 mg tablet RxNorm: 957293 TAKE 1 TABLET BY MOUTH TWICE DAILY 11/23/2017 04/21/2018 Inactive Generic For:*PRINIVIL 20 MG TABLET 11/23/2017 11:29:44 AM Macrobid 100 mg capsule RxNorm: 087672 1 Capsule(s) PO BID 11/19/2017 11/25/2017 Inactive Macrobid 100 mg capsule RxNorm: 387836 1 Capsule(s) PO BID 11/19/2017 11/18/2017 Inactive Lomotil 2.5 mg-0.025 mg tablet RxNorm: 7351696 1 -2 Tablet(s) PO TID as needed 11/19/2017 11/25/2017 Inactive Lomotil 2.5 mg-0.025 mg tablet RxNorm: 3144184 1 -2 Tablet(s) PO TID as needed 11/19/2017 11/18/2017 Inactive Pyridium 200 mg tablet RxNorm: 5592707 1 Tablet(s) PO TID as needed 11/18/2017 11/22/2017 Inactive Augmentin 500 mg-125 mg tablet RxNorm: 257389 1 Tablet(s) PO TID 11/18/2017 11/27/2017 Inactive Keflex 500 mg capsule RxNorm: 614709 1 Capsule(s) PO TID 11/03/2017 11/09/2017 Inactive Denavir 1 % topical cream RxNorm: 030986 1 TOP TID as needed cold sores 11/01/2017 01/29/2018 Inactive Denavir 1 % topical cream RxNorm: 197653 1 TOP TID as needed cold sores 11/01/2017 10/31/2017 Inactive Synthroid 88 mcg tablet RxNorm: 426707 TAKE 1 TABLET BY MOUTH DAILY 09/29/2017 11/27/2017 Inactive 09/29/2017 12:58:07 PM pravastatin 80 mg tablet RxNorm: 836604 1 Tablet(s) PO daily 08/31/2017 08/30/2017 Inactive pravastatin 80 mg tablet RxNorm: 670520 1 Tablet(s) PO daily 08/31/2017 11/28/2017 Inactive Synthroid 88 mcg tablet RxNorm: 481772 TAKE 1 TABLET BY MOUTH DAILY 08/30/2017 09/28/2017 Inactive 08/30/2017 10:53:26 AM metoprolol succinate ER 50 mg tablet,extended release 24 hr RxNorm: 438310 Tablet(s) TAKE 1 TABLET BY MOUTH DAILY 08/17/2017 03/14/2018 Inactive PLEASE SEND REFILL REQUESTS ELECTRONICALLY!! lisinopril 20 mg tablet RxNorm: 176758 TAKE 1 TABLET BY MOUTH TWICE DAILY 06/18/2017 11/14/2017 Inactive Generic For:*PRINIVIL 20 MG TABLET 06/18/2017 1:31:00 PM Synthroid 88 mcg tablet RxNorm: 991395 TAKE 1 TABLET BY MOUTH DAILY 05/24/2017 08/21/2017 Inactive 05/24/2017 2:13:21 PM cetirizine 10 mg tablet RxNorm: 1183404 1 Tablet(s) PO daily 05/17/2017 12/12/2017 Inactive Zithromax Z-Russell 250 mg capsule RxNorm: 667544 1 Capsule(s) PO 04/02/2017 04/05/2017 Inactive Zithromax Z-Russell 250 mg tablet RxNorm: 307070 1 Tablet(s) PO 04/02/2017 04/01/2017 Inactive Zithromax Z-Russell 250 mg capsule RxNorm: 717291 1 Capsule(s) PO 04/02/2017 04/01/2017 Inactive Zithromax Z-Russell 250 mg tablet RxNorm: 355551 1 Tablet(s) PO 04/02/2017 04/06/2017 Inactive Ventolin HFA 90 mcg/actuation aerosol inhaler RxNorm: 836679 2 INH QID as needed - for the first 3 days inhale at least two puffs three times daily, then use as needed for shortness of breath 04/01/2017 04/30/2017 Inactive Keflex 500 mg capsule RxNorm: 309191 1 Capsule(s) PO TID 04/01/2017 04/01/2017 Inactive meclizine 25 mg tablet RxNorm: 845028 Tablet(s) 1 Tablet(s) PO Q6 PRN 03/25/2017 03/24/2017 Inactive dizziness Kenalog 40 mg/mL suspension for injection RxNorm: 2191961 1 Milliliter(s) Inj 03/25/2017 03/25/2017 Inactive meclizine 25 mg tablet RxNorm: 985393 1 Tablet(s) PO Q6 PRN 1 Tablet(s) PO Q6 PRN 03/25/2017 05/12/2018 Inactive dizziness meclizine 25 mg tablet RxNorm: 796589 1 Tablet(s) PO Q6 PRN 02/15/2017 03/24/2017 Inactive dizziness lisinopril 20 mg tablet RxNorm: 858995 1 Tablet(s) PO BID 01/15/2017 06/13/2017 Inactive metoprolol succinate ER 50 mg tablet,extended release 24 hr RxNorm: 040980 TAKE 1 TABLET BY MOUTH DAILY 01/07/2017 08/04/2017 Inactive Generic For:TOPROL XL 50MG TAB 01/07/2017 12:38:23 PM Synthroid 88 mcg tablet RxNorm: 662401 TAKE 1 TABLET BY MOUTH DAILY 12/25/2016 05/23/2017 Inactive 12/25/2016 9:47:08 AM Zithromax Z-Russell 250 mg tablet RxNorm: 017311 Tablet(s) PO UD 12/23/2016 03/24/2017 Inactive meclizine 25 mg tablet RxNorm: 877331 1 Tablet(s) PO Q6 PRN 12/08/2016 12/20/2016 Inactive dizziness Kenalog 40 mg/mL suspension for injection RxNorm: 3053247 Milliliter(s) Inj 12/08/2016 12/08/2016 Inactive meloxicam 15 mg tablet RxNorm: 984434 1 Tablet(s) PO daily 11/30/2016 12/20/2016 Inactive cetirizine 10 mg tablet RxNorm: 9084866 1 Tablet(s) PO daily 10/23/2016 05/16/2017 Inactive pravastatin 40 mg tablet RxNorm: 324759 1 Tablet(s) PO BID 08/20/2016 08/30/2017 Inactive Cancel 80 mg tab lisinopril 20 mg tablet RxNorm: 415458 1 Tablet(s) PO BID 08/12/2016 12/22/2016 Inactive Synthroid 88 mcg tablet RxNorm: 562010 1 Tablet(s) PO TAKE ONE (1) TABLET BY MOUTH DAILY 07/28/2016 12/24/2016 Inactive decrease dose hydralazine 25 mg tablet RxNorm: 263185 1 Tablet(s) PO TID as needed for Systolic blood pressure over 170 07/06/2016 12/20/2016 Inactive lisinopril 20 mg tablet RxNorm: 758691 1 Tablet(s) PO BID to replace your other lisinopril dose 07/06/2016 08/04/2016 Inactive lisinopril 10 mg tablet RxNorm: 672361 TAKE ONE TABLET BY MOUTH TWICE DAILY 06/10/2016 08/11/2016 Inactive Generic For:ZESTRIL 10 MG TABLET 06/09/2016 12:58:50 PM triamcinolone acetonide 0.1 % topical cream RxNorm: 5619710 1 Application TOP TID as needed 06/01/2016 No Stop Date Active nystatin 100,000 unit/gram topical cream RxNorm: 272824 1 Gram(s) TOP TID as needed 06/01/2016 05/29/2018 Inactive metoprolol succinate ER 50 mg tablet,extended release 24 hr RxNorm: 991831 1 Tablet(s) PO daily 05/26/2016 12/21/2016 Inactive cetirizine 10 mg tablet RxNorm: 9270598 1 Tablet(s) PO daily 03/23/2016 10/18/2016 Inactive Synthroid 88 mcg tablet RxNorm: 890395 1 Tablet(s) PO TAKE ONE (1) TABLET BY MOUTH DAILY 03/06/2016 03/07/2018 Inactive Brand name only! Synthroid 88 mcg tablet RxNorm: 663577 1 Tablet(s) PO TAKE ONE (1) TABLET BY MOUTH DAILY 03/04/2016 03/05/2016 Inactive decrease dose cetirizine 10 mg tablet RxNorm: 4834393 1 Tablet(s) PO daily 02/27/2016 03/22/2016 Inactive amoxicillin 500 mg capsule RxNorm: 363826 1 Capsule(s) PO TID 02/27/2016 03/04/2016 Inactive lisinopril 10 mg tablet RxNorm: 723051 TAKE ONE TABLET BY MOUTH TWICE DAILY 02/06/2016 06/04/2016 Inactive Generic For:ZESTRIL 10 MG TABLET 02/06/2016 12:16:38 PM Synthroid 100 mcg tablet RxNorm: 445852 TAKE ONE (1) TABLET BY MOUTH DAILY 01/03/2016 03/03/2016 Inactive 01/03/2016 10:35:14 AM N O T I C E Last quantity doesn't match original quantity lisinopril 10 mg tablet RxNorm: 715003 1 Tablet(s) PO BID 10/04/2015 01/31/2016 Inactive Synthroid 100 mcg tablet RxNorm: 902646 1 Tablet(s) PO daily 10/04/2015 01/02/2016 Inactive metoprolol succinate ER 50 mg tablet,extended release 24 hr RxNorm: 482657 1 Tablet(s) PO daily 10/04/2015 04/30/2016 Inactive Tylenol Arthritis 650 mg tablet,extended release RxNorm: 6946992 2 Tablet(s) PO TID 09/10/2015 No Stop Date Active metoprolol succinate ER 50 mg tablet,extended release 24 hr RxNorm: 315232 1 Tablet(s) PO daily 09/05/2015 10/03/2015 Inactive pravastatin 80 mg tablet RxNorm: 903090 1 Tablet(s) PO QHS 08/30/2015 08/30/2015 Inactive pravastatin 40 mg tablet RxNorm: 610053 1 Tablet(s) PO BID 08/30/2015 08/29/2015 Inactive Cancel 80 mg tab pravastatin 40 mg tablet RxNorm: 476865 1 Tablet(s) PO BID 08/30/2015 08/19/2016 Inactive Cancel 80 mg tab lisinopril 10 mg tablet RxNorm: 327294 1 Tablet(s) PO BID 06/13/2015 08/11/2016 Inactive lisinopril 10 mg tablet RxNorm: 738856 1 Tablet(s) PO BID 06/13/2015 10/03/2015 Inactive Synthroid 100 mcg tablet RxNorm: 865596 1 Tablet(s) PO daily 06/10/2015 10/03/2015 Inactive ceftriaxone 1 gram solution for injection RxNorm: 8896340 Inj 03/01/2015 03/01/2015 Inactive ceftriaxone 1 gram solution for injection RxNorm: 8957703 Inj 02/28/2015 02/28/2015 Inactive ceftriaxone 1 gram solution for injection RxNorm: 2480225 Inj 02/27/2015 02/27/2015 Inactive ceftriaxone 1 gram solution for injection RxNorm: 6649910 Inj 02/26/2015 02/26/2015 Inactive ceftriaxone 1 gram solution for injection RxNorm: 4110539 Inj 02/25/2015 02/25/2015 Inactive phenazopyridine 200 mg tablet RxNorm: 2083325 1 Tablet(s) PO Q8 02/21/2015 02/20/2015 Inactive Cipro 500 mg tablet RxNorm: 609800 1 Tablet(s) PO BID 02/21/2015 02/20/2015 Inactive phenazopyridine 200 mg tablet RxNorm: 4255966 1 Tablet(s) PO Q8 02/21/2015 02/25/2015 Inactive Cipro 500 mg tablet RxNorm: 878001 1 Tablet(s) PO BID 02/21/2015 02/27/2015 Inactive lisinopril 10 mg tablet RxNorm: 184858 1 Tablet(s) PO BID 02/14/2015 06/12/2015 Inactive metoprolol succinate ER 50 mg tablet,extended release 24 hr RxNorm: 761206 3/4 Tablet(s) PO daily 02/11/2015 09/04/2015 Inactive Voltaren 1 % topical gel RxNorm: 303993 2 Gram(s) TOP QID use this on affected joints up to four times daily. 02/11/2015 03/12/2015 Inactive Probiotic oral RxNorm: 6205 oral No Start Date Active aspirin 81 mg tablet RxNorm: 216828 1 Tablet(s) PO daily No Start Date Active Super B-Complex tablet RxNorm: 1 Tablet(s) PO No Start Date Active Super-D3+ oral RxNorm: oral No Start Date Active Prilosec OTC 20 mg tablet,delayed release RxNorm: 749865 2 Tablet(s) PO QAM No Start Date Active Move Free Ultra 40 mg-10 mg-3.3 mg tablet RxNorm: 1 Tablet(s) PO daily No Start Date Active metoprolol tartrate 50 mg tablet RxNorm: 369211 1 Tablet(s) PO daily No Start Date 02/10/2015 Inactive lisinopril 10 mg tablet RxNorm: 115850 1 Tablet(s) PO BID No Start Date 02/13/2015 Inactive pravastatin 80 mg tablet RxNorm: 421526 1 Tablet(s) PO daily No Start Date 08/29/2015 Inactive Flonase Allergy Relief 50 mcg/actuation nasal spray,suspension RxNorm: 4168128 1 [place] NASAL BID No Start Date 05/12/2018 Inactive Synthroid 100 mcg tablet RxNorm: 495874 1 Tablet(s) PO daily No Start Date 06/09/2015 Inactive lisinopril 40 mg tablet RxNorm: 885193 1 Tablet(s) PO BID No Start Date 02/28/2018 Inactive Tylenol Arthritis 650 mg tablet,extended release RxNorm: 2878388 4 Tablet(s) PO daily No Start Date 09/09/2015 Inactive Flonase Allergy Relief 50 mcg/actuation nasal spray,suspension RxNorm: 2847335 1 [place] NASAL as needed No Start Date 08/03/2018 Inactive Medication Administered Medication Codes Instructions Start Date Status ceftriaxone 500 mg solution for injection RxNorm: 8771032 04/08/2018 No longer Active ceftriaxone 500 mg solution for injection RxNorm: 7440798 04/07/2018 No longer Active ceftriaxone 500 mg solution for injection RxNorm: 3964355 04/06/2018 No longer Active ceftriaxone 500 mg solution for injection RxNorm: 9680850 04/05/2018 No longer Active ketorolac 60 mg/2 mL intramuscular solution RxNorm: 0271273 Milliliter 04/05/2018 No longer Active ceftriaxone 500 mg solution for injection RxNorm: 9778434 04/04/2018 No longer Active ketorolac 30 mg/mL injection solution RxNorm: 335629 2Milliliter 04/04/2018 No longer Active Kenalog 40 mg/mL suspension for injection RxNorm: 0042029 Milliliter 12/24/2017 No longer Active Kenalog 40 mg/mL suspension for injection RxNorm: 5730959 1Milliliter 03/25/2017 No longer Active Kenalog 40 mg/mL suspension for injection RxNorm: 3586340 Milliliter 12/08/2016 No longer Active ceftriaxone 1 gram solution for injection RxNorm: 3465307 03/01/2015 No longer Active ceftriaxone 1 gram solution for injection RxNorm: 4691852 02/28/2015 No longer Active ceftriaxone 1 gram solution for injection RxNorm: 1820062 02/27/2015 No longer Active ceftriaxone 1 gram solution for injection RxNorm: 8779965 02/26/2015 No longer Active ceftriaxone 1 gram solution for injection RxNorm: 6345784 02/25/2015 No longer Active Immunizations Vaccine Codes Date Status Influenza CVX: 141 01/18/2018 completed Influenza CVX: 141 03/15/2017 completed Influenza CVX: 141 03/18/2016 completed Influenza CVX: 141 02/11/2015 completed Assessments Condition Codes Effective Dates Essential (primary) hypertension ICD-10: I10 ICD-9: 401.1 09/06/2018 Atrophy of thyroid (acquired) ICD-10: E03.4 ICD-9: 244.8 09/06/2018 Dysuria ICD-10: R30.0 ICD-9: 788.1 07/20/2018 Other fatigue ICD-10: R53.83 ICD-9: 780.79 06/08/2018 Other allergic rhinitis ICD-10: J30.89 ICD-9: 477.8 05/30/2018 Low back pain ICD-10: M54.5 ICD-9: 724.2 04/21/2018 Other malaise ICD-10: R53.81 ICD-9: 780.79 04/21/2018 Otalgia, right ear ICD-10: H92.01 ICD-9: 388.70 04/13/2018 Headache ICD-10: R51 ICD-9: 784.0 04/05/2018 Nausea [...] Mixed hyperlipidemia ICD-10: E78.2 ICD-9: 272.2 11/30/2016 Essential (primary) hypertension ICD-10: I10 ICD-9: [...] Visit Reason For Visit Effective Dates Notes hypertension 09/06/2018 dysuria 07/20/2018 fatigue 07/13/2018 fatigue 06/08/2018 fatigue 05/30/2018 fatigue 05/10/2018 fatigue 04/21/2018 fatigue 04/13/2018 fatigue [...] Item Item Code Result Date Urine Culture Complete >100,000 col/ml aerobic growth sent to ref lab 07/21/2018 Free T4 [id number] FREE T4 1.07 ng/dL 04/04/2018 Tsh Ord6 TSH (3rd IS) 1.93 uIU/mL 04/04/2018 Urine Culture Ucult Preliminary NO Growth Day 1 03/28/2018 Urine Culture Ucult Complete NO Growth Day 2 03/28/2018 Urine Culture Ucult Complete >100,000 col/ml aerobic growth sent to ref lab 11/19/2017 B12 Jke326 B12 712.00 pg/ml 09/28/2017 C-Reactive Protein Qnt Crqnt CRP 0.1 mg/dl 09/23/2017 Comp Metabolic Yke539 NA 139 mEq/L 09/23/2017 Comp Metabolic Xhy194 K 4.8 mEq/L 09/23/2017 Comp Metabolic Ofi495 CL 104 mEq/L 09/23/2017 Comp Metabolic Vmn420 CO2 28.0 mEq/L 09/23/2017 Comp Metabolic Utl880 ANION GAP 12 09/23/2017 Comp Metabolic Ntg248 GLUCOSE 92 mg/dL 09/23/2017 Comp Metabolic Jab138 Creat 0.7 mg/dL 09/23/2017 Comp Metabolic Hub532 eGFR 91 ml/min/1.73m2 09/23/2017 Comp Metabolic Kkg480 BUN 11 mg/dL 09/23/2017 Comp Metabolic Bqb328 B/C Ratio 16.4 Ratio 09/23/2017 Comp Metabolic Ncp048 CALCIUM 9.0 mg/dL 09/23/2017 Comp Metabolic Hfw410 ALK PHOS 76 U/L 09/23/2017 Comp Metabolic Chq568 AST(SGOT) 24 U/L 09/23/2017 Comp Metabolic Xvz753 ALT(SGPT) 21 U/L 09/23/2017 Comp Metabolic Qrc244 BILI T 0.3 mg/dL 09/23/2017 Comp Metabolic Zhc169 ALBUMIN 4.1 g/dL 09/23/2017 Comp Metabolic Tpk312 TPRO 6.2 g/dL 09/23/2017 Comp Metabolic Bjc973 GLOB 2.1 g/dL 09/23/2017 Comp Metabolic Gds707 A/G Ratio 1.9 Ratio 09/23/2017 Comp Metabolic [id number] Osmo 277 mOsmo 09/23/2017 Sed Rate Ord21 ESR 3 mm/hr 09/22/2017 Vitamin D 25 Oh Foe0032 VITAMIN D, 25 HYDROXY 78.79 ng/mL 09/22/2017 Tsh Ord6 TSH (3rd IS) 1.01 [...] 30.6 pg 09/22/2017 Cbc With Differential Ord2 Banner% 10.5 % 09/22/2017 Cbc With Differential Ord2 [...] 2.37 K/ul 09/22/2017 Cbc With Differential Ord2 [facility] ABS# 0.9 K/ul 09/22/2017 Cbc With Differential Ord2 Eos ABS# 0.2 K/ul 09/22/2017 Cbc With Differential Ord2 Baso ABS# 0.0 K/ul 09/22/2017 Free T4 [id number] FREE T4 0.99 ng/dL 09/22/2017 %Hba1C Xdg198 % HbA1c 85104- 6 6.0 % 12/10/2016 %Hba1C Vsf313 Gluc Ave 126 mg/dL 12/10/2016 Tsh Ord6 hTSH II 0.89 uIU/mL 12/09/2016 Free T4 Rzd579 FREE T4 0.99 ng/dL 12/09/2016 Comp Metabolic Hrc071 NA 138 mEq/L 12/09/2016 Comp Metabolic Hta475 K 5.2 mEq/L 12/09/2016 Comp Metabolic Aui244 CL 104 mEq/L 12/09/2016 Comp Metabolic Aiy597 CO2 29.0 mEq/L 12/09/2016 Comp Metabolic Nin071 ANION GAP 10 12/09/2016 Comp Metabolic Icp702 GLUCOSE 135 mg/dL 12/09/2016 Comp Metabolic Fbu717 Creat 0.8 mg/dL 12/09/2016 Comp Metabolic Qla882 eGFR 79 ml/min/1.73m2 12/09/2016 Comp Metabolic Lox900 BUN 18 mg/dL 12/09/2016 Comp Metabolic Klq255 B/C Ratio 23.7 Ratio 12/09/2016 Comp Metabolic Yhv507 CALCIUM 9.5 mg/dL 12/09/2016 Comp Metabolic Gkd970 ALK PHOS 73 U/L 12/09/2016 Comp Metabolic Zrs979 AST(SGOT) 24 U/L 12/09/2016 Comp Metabolic Arc793 ALT(SGPT) 20 U/L 12/09/2016 Comp Metabolic Sqk245 BILI T 0.3 mg/dL 12/09/2016 Comp Metabolic Sqg326 ALBUMIN 4.3 g/dL 12/09/2016 Comp Metabolic Odd249 TPRO 6.4 g/dL 12/09/2016 Comp Metabolic Qiv196 GLOB 2.1 g/dL 12/09/2016 Comp Metabolic Jyg889 A/G Ratio 2.0 Ratio 12/09/2016 Comp Metabolic Mwp699 Osmo 280 mOsmo 12/09/2016 Cbc With Differential [...] 31.3 pg 12/09/2016 Cbc With Differential Ord2 Banner% 6.5 % 12/09/2016 Cbc With Differential Ord2 [...] 1.84 K/ul 12/09/2016 Cbc With Differential Ord2 [facility] ABS# 0.6 K/ul 12/09/2016 Cbc With Differential Ord2 Eos ABS# 0.1 K/ul 12/09/2016 Cbc With Differential Ord2 Baso ABS# 0.1 K/ul 12/09/2016 Tsh Ord6 hTSH II 1.19 uIU/mL 09/02/2016 Free T4 Ril124 FREE T4 0.97 ng/dL 09/02/2016 Comp Metabolic Nms443 NA 137 mEq/L 06/01/2016 Comp Metabolic Ody069 K 4.1 mEq/L 06/01/2016 Comp Metabolic Ozk228 CL 104 mEq/L 06/01/2016 Comp Metabolic Uxi207 CO2 25.0 mEq/L 06/01/2016 Comp Metabolic Lyw580 ANION GAP 12 06/01/2016 Comp Metabolic Ott969 GLUCOSE 108 mg/dL 06/01/2016 Comp Metabolic Fvz188 Creat 0.8 mg/dL 06/01/2016 Comp Metabolic Pjy878 eGFR 80 ml/min/1.73m2 06/01/2016 Comp Metabolic Obd931 BUN 15 mg/dL 06/01/2016 Comp Metabolic Gbn079 B/C Ratio 20.0 Ratio 06/01/2016 Comp Metabolic Lmg163 CALCIUM 9.1 mg/dL 06/01/2016 Comp Metabolic Doc330 ALK PHOS 89 U/L 06/01/2016 Comp Metabolic Vef519 AST(SGOT) 25 U/L 06/01/2016 Comp Metabolic Ovx171 ALT(SGPT) 20 U/L 06/01/2016 Comp Metabolic Hjw201 BILI T 0.3 mg/dL 06/01/2016 Comp Metabolic Hyb894 ALBUMIN 4.2 g/dL 06/01/2016 Comp Metabolic Amw010 TPRO 6.2 g/dL 06/01/2016 Comp Metabolic Pxv916 GLOB 2.0 g/dL 06/01/2016 Comp Metabolic Nxh865 A/G Ratio 2.1 Ratio 06/01/2016 Comp Metabolic Grs510 Osmo 275 mOsmo 06/01/2016 Free T4 Czk435 FREE T4 0.94 ng/dL 06/01/2016 Tsh Ord6 [...] 31.1 pg 06/01/2016 Cbc With Differential Ord2 Banner% 8.4 % 06/01/2016 Cbc With Differential Ord2 [...] 2.96 K/ul 06/01/2016 Cbc With Differential Ord2 [facility] ABS# 0.6 K/ul 06/01/2016 Cbc With Differential [...] 31.3 pg 02/27/2016 Cbc With Differential Ord2 [facility]anner% 10.0 % 02/27/2016 Cbc With Differential Ord2 [...] 2.28 K/ul 02/27/2016 Cbc With Differential Ord2 [facility] ABS# 0.9 K/ul 02/27/2016 Cbc With Differential Ord2 Eos ABS# 0.3 K/ul 02/27/2016 Cbc With Differential Ord2 Baso ABS# 0.1 K/ul 02/27/2016 Tsh Ord6 hTSH II 0.18 uIU/mL 02/27/2016 Free T4 Uae655 FREE T4 1.17 ng/dL 02/27/2016 Comp Metabolic Sod102 NA 135 mEq/L 02/27/2016 Comp Metabolic Vfh811 K 5.2 mEq/L 02/27/2016 Comp Metabolic Lji527 CL 102 mEq/L 02/27/2016 Comp Metabolic Wsf979 CO2 27.0 mEq/L 02/27/2016 Comp Metabolic Bzs923 ANION GAP 11 02/27/2016 Comp Metabolic Jpk379 GLUCOSE 93 mg/dL 02/27/2016 Comp Metabolic Hnk889 Creat 0.7 mg/dL 02/27/2016 Comp Metabolic Tyq393 eGFR 91 ml/min/1.73m2 02/27/2016 Comp Metabolic Gfc083 BUN 14 mg/dL 02/27/2016 Comp Metabolic Cru064 B/C Ratio 20.9 Ratio 02/27/2016 Comp Metabolic Gpj121 CALCIUM 9.4 mg/dL 02/27/2016 Comp Metabolic Svk861 ALK PHOS 100 U/L 02/27/2016 Comp Metabolic Gnu377 AST(SGOT) 23 U/L 02/27/2016 Comp Metabolic Mrg937 ALT(SGPT) 24 U/L 02/27/2016 Comp Metabolic Aii627 BILI T 0.2 mg/dL 02/27/2016 Comp Metabolic Zfg605 ALBUMIN 4.3 g/dL 02/27/2016 Comp Metabolic Ebf050 TPRO 6.3 g/dL 02/27/2016 Comp Metabolic Ofd445 GLOB 2.1 g/dL 02/27/2016 Comp Metabolic Krx430 A/G Ratio 2.1 Ratio 02/27/2016 Comp Metabolic Cvs400 Osmo 270 mOsmo 02/27/2016 Free T4 Rlp685 FREE T4 1.03 ng/dL 05/10/2015 Comp Metabolic Xri259 NA 137 mEq/L 05/10/2015 Comp Metabolic Fku596 K 4.4 mEq/L 05/10/2015 Comp Metabolic Kvn085 CL 102 mEq/L 05/10/2015 Comp Metabolic Kvc341 CO2 28.0 mEq/L 05/10/2015 Comp Metabolic Hxb225 ANION GAP 11 05/10/2015 Comp Metabolic Bsl229 GLUCOSE 108 mg/dL 05/10/2015 Comp Metabolic Skn246 Creat 0.7 mg/dL 05/10/2015 Comp Metabolic Umq037 eGFR 86 ml/min/1.73m2 05/10/2015 Comp Metabolic Ney636 BUN 13 mg/dL 05/10/2015 Comp Metabolic Whk220 B/C Ratio 18.3 Ratio 05/10/2015 Comp Metabolic Pef248 CALCIUM 9.4 mg/dL 05/10/2015 Comp Metabolic Tem703 ALK PHOS 94 U/L 05/10/2015 Comp Metabolic Yjn414 AST(SGOT) 22 U/L 05/10/2015 Comp Metabolic Quq993 ALT(SGPT) 21 U/L 05/10/2015 Comp Metabolic Riz865 BILI T 0.3 mg/dL 05/10/2015 Comp Metabolic Ppi406 ALBUMIN 3.9 g/dL 05/10/2015 Comp Metabolic Htg314 TPRO 6.1 g/dL 05/10/2015 Comp Metabolic Yib395 GLOB 2.2 g/dL 05/10/2015 Comp Metabolic Msx975 A/G Ratio 1.7 Ratio 05/10/2015 Comp Metabolic Wra568 Osmo 274 mOsmo 05/10/2015 Tsh Ord6 hTSH [...] 29.4 pg 05/10/2015 Cbc With Differential Ord2 [facility]% 9.0 % 05/10/2015 Cbc With Differential Ord2 [...] 2.14 K/ul 05/10/2015 Cbc With Differential Ord2 [facility] ABS# 0.5 K/ul 05/10/2015 Cbc With Differential [...] Ord30 C/HDL 3.8 Ratio 05/10/2015 Culture Urine [id number] URINE CULTURE SEE NOTES 02/25/2015 Culture Urine [id number] Continued Results 02/25/2015 Urine Culture Ucult Complete >100,000 col/ml aerobic growth sent to ref lab 02/22/2015 Free T4 Pyk964 FREE T4 1.16 ng/dL 02/11/2015 Tsh Ord6 hTSH II 0.51 uIU/mL 02/11/2015 Review of Systems System Result Effective Dates Constitutional No recent illness 09/06/2018 Constitutional No chills 09/06/2018 Constitutional No diaphoresis 09/06/2018 Constitutional fatigue 09/06/2018 Constitutional No fever 09/06/2018 Constitutional No insomnia 09/06/2018 Constitutional malaise 09/06/2018 Eyes No blindness 09/06/2018 Ears/Nose/Throat/Neck nasal allergies 09/06/2018 Ears/Nose/Throat/Neck No nasal discharge 09/06/2018 Cardiovascular No chest pain/pressure 09/06/2018 Respiratory No cough 09/06/2018 Respiratory No dyspnea 09/06/2018 Gastrointestinal No abdominal pain 09/06/2018 Gastrointestinal No constipation 09/06/2018 Gastrointestinal No diarrhea 09/06/2018 Neurologic No alteration of consciousness 09/06/2018 Neurologic No mental status change 09/06/2018 Constitutional No recent illness 07/20/2018 Constitutional No chills 07/20/2018 Constitutional No diaphoresis 07/20/2018 Constitutional No fever 07/20/2018 Eyes No eye erythema 07/20/2018 Ears/Nose/Throat/Neck No nasal discharge 07/20/2018 Cardiovascular No chest pain/pressure 07/20/2018 Respiratory No cough 07/20/2018 Gastrointestinal No abdominal pain 07/20/2018 Genitourinary/Nephrology dysuria 07/20/2018 Genitourinary/Nephrology urinary urgency 07/20/2018 Genitourinary/Nephrology urinary frequency 07/20/2018 Neurologic No alteration of consciousness 07/20/2018 Neurologic No mental status change 07/20/2018 Constitutional No recent illness 07/13/2018 Constitutional No chills 07/13/2018 Constitutional No diaphoresis 07/13/2018 Constitutional fatigue 07/13/2018 Constitutional No fever 07/13/2018 Constitutional No insomnia 07/13/2018 Constitutional malaise 07/13/2018 Eyes No blindness 07/13/2018 Ears/Nose/Throat/Neck nasal allergies 07/13/2018 Ears/Nose/Throat/Neck No nasal discharge 07/13/2018 Cardiovascular No chest pain/pressure 07/13/2018 Respiratory No cough 07/13/2018 Respiratory No dyspnea 07/13/2018 Gastrointestinal No abdominal pain 07/13/2018 Gastrointestinal No constipation 07/13/2018 Gastrointestinal No diarrhea 07/13/2018 Neurologic No alteration of consciousness 07/13/2018 Neurologic No mental status change 07/13/2018 Constitutional No recent illness 06/08/2018 Constitutional No chills 06/08/2018 Constitutional No diaphoresis 06/08/2018 Constitutional fatigue 06/08/2018 Constitutional No fever 06/08/2018 Constitutional No insomnia 06/08/2018 Constitutional malaise 06/08/2018 Eyes No eye erythema 06/08/2018 Ears/Nose/Throat/Neck nasal allergies 06/08/2018 Ears/Nose/Throat/Neck No nasal discharge 06/08/2018 Cardiovascular No chest pain/pressure 06/08/2018 Respiratory No cough 06/08/2018 Respiratory No dyspnea 06/08/2018 Gastrointestinal No abdominal pain 06/08/2018 Gastrointestinal No constipation 06/08/2018 Gastrointestinal No diarrhea 06/08/2018 Musculoskeletal back pain 06/08/2018 Neurologic No alteration of consciousness 06/08/2018 Neurologic No mental status change 06/08/2018 Constitutional No recent illness 05/30/2018 Constitutional No chills 05/30/2018 Constitutional No diaphoresis 05/30/2018 Constitutional fatigue 05/30/2018 Constitutional No fever 05/30/2018 Constitutional No insomnia 05/30/2018 Constitutional malaise 05/30/2018 Eyes No eye erythema 05/30/2018 Ears/Nose/Throat/Neck nasal allergies 05/30/2018 Ears/Nose/Throat/Neck No nasal discharge 05/30/2018 Cardiovascular No chest pain/pressure 05/30/2018 Respiratory No cough 05/30/2018 Respiratory No dyspnea 05/30/2018 Gastrointestinal No abdominal pain 05/30/2018 Gastrointestinal No constipation 05/30/2018 Gastrointestinal No diarrhea 05/30/2018 Musculoskeletal back pain 05/30/2018 Neurologic No alteration of consciousness 05/30/2018 Neurologic No mental status change 05/30/2018 Constitutional No recent illness 05/10/2018 Constitutional No chills 05/10/2018 Constitutional No diaphoresis 05/10/2018 Constitutional fatigue 05/10/2018 Constitutional No fever 05/10/2018 Constitutional No insomnia 05/10/2018 Constitutional malaise 05/10/2018 Eyes No eye erythema 05/10/2018 Ears/Nose/Throat/Neck nasal allergies 05/10/2018 Cardiovascular No chest pain/pressure 05/10/2018 Respiratory No cough 05/10/2018 Respiratory No dyspnea 05/10/2018 Gastrointestinal No abdominal pain 05/10/2018 Gastrointestinal No constipation 05/10/2018 Gastrointestinal No diarrhea 05/10/2018 Musculoskeletal back pain 05/10/2018 Neurologic No alteration of consciousness 05/10/2018 Neurologic No mental status change 05/10/2018 Ears/Nose/Throat/Neck No nasal discharge 05/10/2018 Constitutional No recent illness 04/21/2018 Constitutional No chills 04/21/2018 Constitutional No diaphoresis 04/21/2018 Constitutional No fever 04/21/2018 Constitutional fatigue 04/21/2018 Constitutional malaise 04/21/2018 Constitutional No insomnia 04/21/2018 Eyes No eye erythema 04/21/2018 Ears/Nose/Throat/Neck nasal allergies 04/21/2018 Ears/Nose/Throat/Neck nasal discharge 04/21/2018 Ears/Nose/Throat/Neck postnasal drip 04/21/2018 Ears/Nose/Throat/Neck otalgia 04/21/2018 Ears/Nose/Throat/Neck sore throat 04/21/2018 Cardiovascular No chest pain/pressure 04/21/2018 Respiratory No cough 04/21/2018 Respiratory No dyspnea 04/21/2018 Gastrointestinal No abdominal pain 04/21/2018 Gastrointestinal No constipation 04/21/2018 Gastrointestinal No diarrhea 04/21/2018 Musculoskeletal back pain 04/21/2018 Neurologic No alteration of consciousness 04/21/2018 Neurologic No mental status change 04/21/2018 Constitutional No recent illness 04/13/2018 Constitutional No chills 04/13/2018 Constitutional No diaphoresis 04/13/2018 Constitutional fatigue 04/13/2018 Constitutional No fever 04/13/2018 Constitutional malaise 04/13/2018 Eyes No eye erythema 04/13/2018 Ears/Nose/Throat/Neck dizziness 04/13/2018 Ears/Nose/Throat/Neck nasal allergies 04/13/2018 Ears/Nose/Throat/Neck No nasal discharge 04/13/2018 Ears/Nose/Throat/Neck sore throat 04/13/2018 Ears/Nose/Throat/Neck No sinus congestion 04/13/2018 Cardiovascular No chest pain/pressure 04/13/2018 Cardiovascular No dyspnea 04/13/2018 Respiratory No chest congestion 04/13/2018 Respiratory No cough 04/13/2018 Gastrointestinal No abdominal pain 04/13/2018 Gastrointestinal No constipation 04/13/2018 Gastrointestinal No diarrhea 04/13/2018 Musculoskeletal joint complaint 04/13/2018 Musculoskeletal myalgias 04/13/2018 Dermatologic No rash 04/13/2018 Neurologic No alteration of consciousness 04/13/2018 Neurologic No aphasia 04/13/2018 Neurologic dizziness 04/13/2018 Neurologic No dyskinesia or tremor 04/13/2018 Neurologic No gait abnormality 04/13/2018 Neurologic headache 04/13/2018 Neurologic No mental status change 04/13/2018 Ears/Nose/Throat/Neck otalgia 04/13/2018 Constitutional No recent illness 04/04/2018 Constitutional No chills 04/04/2018 Constitutional No diaphoresis 04/04/2018 Constitutional fatigue 04/04/2018 Constitutional No fever 04/04/2018 Constitutional malaise 04/04/2018 Eyes No blindness 04/04/2018 Ears/Nose/Throat/Neck dizziness 04/04/2018 Ears/Nose/Throat/Neck nasal allergies 04/04/2018 Ears/Nose/Throat/Neck No nasal discharge 04/04/2018 Ears/Nose/Throat/Neck No sinus congestion 04/04/2018 Ears/Nose/Throat/Neck No sore throat 04/04/2018 Cardiovascular No chest pain/pressure 04/04/2018 Cardiovascular No dyspnea 04/04/2018 Respiratory No chest congestion 04/04/2018 Respiratory No cough 04/04/2018 Gastrointestinal No abdominal pain 04/04/2018 Gastrointestinal No constipation 04/04/2018 Gastrointestinal No diarrhea 04/04/2018 Musculoskeletal joint complaint 04/04/2018 Musculoskeletal myalgias 04/04/2018 Dermatologic No rash 04/04/2018 Neurologic No alteration of consciousness 04/04/2018 Neurologic No aphasia 04/04/2018 Neurologic dizziness 04/04/2018 Neurologic No dyskinesia or tremor 04/04/2018 Neurologic No gait abnormality 04/04/2018 Neurologic headache 04/04/2018 Neurologic No mental status change 04/04/2018 Psychiatric No anxiety 04/04/2018 Eyes No eye discharge 04/01/2018 Eyes No eye erythema 04/01/2018 Ears/Nose/Throat/Neck dizziness 04/01/2018 Ears/Nose/Throat/Neck headache 04/01/2018 Ears/Nose/Throat/Neck nasal discharge 04/01/2018 Ears/Nose/Throat/Neck otalgia 04/01/2018 Ears/Nose/Throat/Neck sinus congestion 04/01/2018 Cardiovascular No chest pain/pressure 04/01/2018 Cardiovascular No dyspnea 04/01/2018 Cardiovascular No edema 04/01/2018 Respiratory No cough 04/01/2018 Gastrointestinal No abdominal pain 04/01/2018 Gastrointestinal No constipation 04/01/2018 Gastrointestinal No diarrhea 04/01/2018 Gastrointestinal nausea 04/01/2018 Gastrointestinal No vomiting 04/01/2018 Genitourinary/Nephrology dysuria 04/01/2018 Musculoskeletal No joint complaint 04/01/2018 Dermatologic No rash 04/01/2018 Neurologic No alteration of consciousness 04/01/2018 Neurologic dizziness 04/01/2018 Constitutional No recent illness 04/01/2018 Constitutional No fever 04/01/2018 Constitutional No chills 04/01/2018 Constitutional No diaphoresis 04/01/2018 Eyes No eye erythema 04/01/2018 Genitourinary/Nephrology urinary frequency 04/01/2018 Genitourinary/Nephrology urinary urgency 04/01/2018 Constitutional No insomnia 03/24/2018 Constitutional malaise 03/24/2018 Constitutional fatigue 03/24/2018 Constitutional No fever 03/24/2018 Constitutional No diaphoresis 03/24/2018 Constitutional No chills 03/24/2018 Constitutional No night sweats 03/24/2018 Constitutional No recent illness 03/24/2018 Constitutional No anorexia 03/24/2018 Eyes No eye discharge 03/24/2018 Eyes No eye erythema 03/24/2018 Ears/Nose/Throat/Neck dizziness 03/24/2018 Ears/Nose/Throat/Neck No headache 03/24/2018 Ears/Nose/Throat/Neck nasal discharge 03/24/2018 Ears/Nose/Throat/Neck otalgia 03/24/2018 Ears/Nose/Throat/Neck sinus congestion 03/24/2018 Cardiovascular No chest pain/pressure 03/24/2018 Cardiovascular No dyspnea 03/24/2018 Cardiovascular No edema 03/24/2018 Respiratory No cough 03/24/2018 Gastrointestinal No abdominal pain 03/24/2018 Gastrointestinal No constipation 03/24/2018 Gastrointestinal No diarrhea 03/24/2018 Gastrointestinal nausea 03/24/2018 Gastrointestinal No vomiting 03/24/2018 Genitourinary/Nephrology No dysuria 03/24/2018 Musculoskeletal No joint complaint 03/24/2018 Dermatologic No rash 03/24/2018 Neurologic No alteration of consciousness 03/24/2018 Neurologic dizziness 03/24/2018 Constitutional recent illness 03/01/2018 Constitutional No chills 03/01/2018 Constitutional No diaphoresis 03/01/2018 Constitutional No fever 03/01/2018 Eyes No blindness 03/01/2018 Ears/Nose/Throat/Neck nasal allergies 03/01/2018 Ears/Nose/Throat/Neck nasal discharge 03/01/2018 Ears/Nose/Throat/Neck otalgia 03/01/2018 Ears/Nose/Throat/Neck No postnasal drip 03/01/2018 Ears/Nose/Throat/Neck No sinus congestion 03/01/2018 Ears/Nose/Throat/Neck No sore throat 03/01/2018 Cardiovascular No chest pain/pressure 03/01/2018 Respiratory No chest congestion 03/01/2018 Respiratory No cough 03/01/2018 Gastrointestinal No abdominal pain 03/01/2018 Dermatologic No rash 03/01/2018 Neurologic No alteration of consciousness 03/01/2018 Neurologic No mental status change 03/01/2018 Neurologic headache 03/01/2018 Constitutional No recent illness 12/24/2017 Constitutional No chills 12/24/2017 Constitutional No diaphoresis 12/24/2017 Constitutional No fever 12/24/2017 Eyes No eye erythema 12/24/2017 Ears/Nose/Throat/Neck nasal discharge 12/24/2017 Cardiovascular No chest pain/pressure 12/24/2017 Cardiovascular No dyspnea 12/24/2017 Respiratory No cough 12/24/2017 Respiratory No dyspnea 12/24/2017 Neurologic No alteration of consciousness 12/24/2017 Neurologic No mental status change 12/24/2017 Ears/Nose/Throat/Neck nasal allergies 12/24/2017 Ears/Nose/Throat/Neck dizziness 12/24/2017 Constitutional recent illness 11/18/2017 Constitutional No chills 11/18/2017 Constitutional No diaphoresis 11/18/2017 Constitutional No fever 11/18/2017 Eyes No eye erythema 11/18/2017 Ears/Nose/Throat/Neck No nasal discharge 11/18/2017 Ears/Nose/Throat/Neck No nasal allergies 11/18/2017 Cardiovascular No chest pain/pressure 11/18/2017 Cardiovascular No dyspnea 11/18/2017 Respiratory No cough 11/18/2017 Gastrointestinal No abdominal pain 11/18/2017 Gastrointestinal No constipation 11/18/2017 Gastrointestinal No diarrhea 11/18/2017 Musculoskeletal No joint complaint 11/18/2017 Dermatologic No rash 11/18/2017 Neurologic No alteration of consciousness 11/18/2017 Neurologic No mental status change 11/18/2017 Constitutional recent illness 11/03/2017 Constitutional No chills 11/03/2017 Constitutional No diaphoresis 11/03/2017 Constitutional No fever 11/03/2017 Eyes No eye erythema 11/03/2017 Ears/Nose/Throat/Neck nasal allergies 11/03/2017 Ears/Nose/Throat/Neck nasal discharge 11/03/2017 Ears/Nose/Throat/Neck otalgia 11/03/2017 Ears/Nose/Throat/Neck postnasal drip 11/03/2017 Ears/Nose/Throat/Neck sinus congestion 11/03/2017 Ears/Nose/Throat/Neck No sore throat 11/03/2017 Cardiovascular No chest pain/pressure 11/03/2017 Respiratory No cough 11/03/2017 Respiratory No chest congestion 11/03/2017 Gastrointestinal No abdominal pain 11/03/2017 Dermatologic No rash 11/03/2017 Neurologic No alteration of consciousness 11/03/2017 Neurologic No mental status change 11/03/2017 Constitutional No recent illness 09/22/2017 Constitutional No chills 09/22/2017 Constitutional No diaphoresis 09/22/2017 Constitutional fatigue 09/22/2017 Constitutional No fever 09/22/2017 Constitutional malaise 09/22/2017 Eyes No eye erythema 09/22/2017 Ears/Nose/Throat/Neck nasal allergies 09/22/2017 Ears/Nose/Throat/Neck No nasal discharge 09/22/2017 Ears/Nose/Throat/Neck dizziness 09/22/2017 Ears/Nose/Throat/Neck No sinus congestion 09/22/2017 Ears/Nose/Throat/Neck No sore throat 09/22/2017 Cardiovascular No chest pain/pressure 09/22/2017 Cardiovascular No dyspnea 09/22/2017 Respiratory No cough 09/22/2017 Respiratory No chest congestion 09/22/2017 Gastrointestinal No abdominal pain 09/22/2017 Gastrointestinal No constipation 09/22/2017 Gastrointestinal No diarrhea 09/22/2017 Musculoskeletal joint complaint 09/22/2017 Musculoskeletal myalgias 09/22/2017 Dermatologic No rash 09/22/2017 Neurologic No alteration of consciousness 09/22/2017 Neurologic No mental status change 09/22/2017 Neurologic headache 09/22/2017 Neurologic dizziness 09/22/2017 Neurologic No aphasia 09/22/2017 Neurologic No dyskinesia or tremor 09/22/2017 Neurologic No gait abnormality 09/22/2017 Constitutional No recent illness 04/01/2017 Constitutional No chills 04/01/2017 Constitutional fatigue 04/01/2017 Constitutional No fever 04/01/2017 Eyes No blindness 04/01/2017 Eyes No vision change 04/01/2017 Ears/Nose/Throat/Neck nasal allergies 04/01/2017 Ears/Nose/Throat/Neck nasal discharge 04/01/2017 Ears/Nose/Throat/Neck postnasal drip 04/01/2017 Ears/Nose/Throat/Neck sinus congestion 04/01/2017 Cardiovascular No chest pain/pressure 04/01/2017 Cardiovascular No dyspnea 04/01/2017 Respiratory No chest congestion 04/01/2017 Respiratory No dyspnea 04/01/2017 Gastrointestinal No abdominal pain 04/01/2017 Gastrointestinal No nausea 04/01/2017 Gastrointestinal No vomiting 04/01/2017 Musculoskeletal stiffness 04/01/2017 Musculoskeletal No swelling 04/01/2017 Musculoskeletal arthralgia(s) 04/01/2017 Musculoskeletal No muscle weakness 04/01/2017 Musculoskeletal No myalgias 04/01/2017 Dermatologic No rash 04/01/2017 Dermatologic No sores 04/01/2017 Neurologic No alteration of consciousness 04/01/2017 Neurologic headache 04/01/2017 Neurologic No mental status change 04/01/2017 Constitutional No recent illness 03/25/2017 Constitutional No anorexia 03/25/2017 Constitutional No night sweats 03/25/2017 Constitutional No chills 03/25/2017 Constitutional No diaphoresis 03/25/2017 Constitutional No fatigue 03/25/2017 Constitutional No fever 03/25/2017 Constitutional No insomnia 03/25/2017 Constitutional No malaise 03/25/2017 Constitutional No weight loss 03/25/2017 Constitutional No weight gain 03/25/2017 Eyes No eye erythema 03/25/2017 Eyes No eye discharge 03/25/2017 Ears/Nose/Throat/Neck No dizziness 03/25/2017 Ears/Nose/Throat/Neck No headache 03/25/2017 Ears/Nose/Throat/Neck nasal allergies 03/25/2017 Ears/Nose/Throat/Neck otalgia 03/25/2017 Ears/Nose/Throat/Neck sinus congestion 03/25/2017 Ears/Nose/Throat/Neck No sore throat 03/25/2017 Cardiovascular No chest pain/pressure 03/25/2017 Respiratory No cough 03/25/2017 Gastrointestinal No vomiting 03/25/2017 Gastrointestinal No nausea 03/25/2017 Dermatologic No sores 03/25/2017 Dermatologic No rash 03/25/2017 Neurologic No alteration of consciousness 03/25/2017 Constitutional No recent illness 12/23/2016 Constitutional No chills 12/23/2016 Constitutional No diaphoresis 12/23/2016 Constitutional No fever 12/23/2016 Eyes No eye erythema 12/23/2016 Ears/Nose/Throat/Neck No nasal discharge 12/23/2016 Cardiovascular No chest pain/pressure 12/23/2016 Cardiovascular No dyspnea 12/23/2016 Respiratory No cough 12/23/2016 Respiratory No dyspnea 12/23/2016 Neurologic No alteration of consciousness 12/23/2016 Neurologic No mental status change 12/23/2016 Constitutional No recent illness 12/22/2016 Constitutional No anorexia 12/22/2016 Constitutional No night sweats 12/22/2016 Constitutional No chills 12/22/2016 Constitutional No diaphoresis 12/22/2016 Constitutional fatigue 12/22/2016 Constitutional No fever 12/22/2016 Constitutional No insomnia 12/22/2016 Constitutional No malaise 12/22/2016 Constitutional No weight loss 12/22/2016 Constitutional No weight gain 12/22/2016 Eyes No eye discharge 12/22/2016 Eyes No eye erythema 12/22/2016 Ears/Nose/Throat/Neck dizziness 12/22/2016 Ears/Nose/Throat/Neck No headache 12/22/2016 Ears/Nose/Throat/Neck No nasal discharge 12/22/2016 Ears/Nose/Throat/Neck No sinus congestion 12/22/2016 Cardiovascular No chest pain/pressure 12/22/2016 Cardiovascular No dyspnea 12/22/2016 Cardiovascular No edema 12/22/2016 Respiratory No cough 12/22/2016 Gastrointestinal No abdominal pain 12/22/2016 Gastrointestinal No constipation 12/22/2016 Gastrointestinal No diarrhea 12/22/2016 Gastrointestinal nausea 12/22/2016 Gastrointestinal No vomiting 12/22/2016 Genitourinary/Nephrology No dysuria 12/22/2016 Musculoskeletal No joint complaint 12/22/2016 Dermatologic No rash 12/22/2016 Neurologic No alteration of consciousness 12/22/2016 Neurologic dizziness 12/22/2016 Ears/Nose/Throat/Neck No otalgia 12/22/2016 Constitutional No recent illness 12/08/2016 Constitutional No anorexia 12/08/2016 Constitutional No night sweats 12/08/2016 Constitutional No chills 12/08/2016 Constitutional No diaphoresis 12/08/2016 Constitutional fatigue 12/08/2016 Constitutional No fever 12/08/2016 Constitutional No insomnia 12/08/2016 Constitutional No malaise 12/08/2016 Constitutional No weight loss 12/08/2016 Constitutional No weight gain 12/08/2016 Eyes No eye erythema 12/08/2016 Eyes No eye discharge 12/08/2016 Ears/Nose/Throat/Neck dizziness 12/08/2016 Ears/Nose/Throat/Neck No headache 12/08/2016 Ears/Nose/Throat/Neck nasal discharge 12/08/2016 Ears/Nose/Throat/Neck otalgia 12/08/2016 Ears/Nose/Throat/Neck sinus congestion 12/08/2016 Cardiovascular No chest pain/pressure 12/08/2016 Cardiovascular No dyspnea 12/08/2016 Cardiovascular No edema 12/08/2016 Respiratory No cough 12/08/2016 Gastrointestinal No abdominal pain 12/08/2016 Gastrointestinal No constipation 12/08/2016 Gastrointestinal No diarrhea 12/08/2016 Gastrointestinal nausea 12/08/2016 Gastrointestinal No vomiting 12/08/2016 Genitourinary/Nephrology No dysuria 12/08/2016 Musculoskeletal No joint complaint 12/08/2016 Dermatologic No rash 12/08/2016 Neurologic No alteration of consciousness 12/08/2016 Neurologic dizziness 12/08/2016 Constitutional No recent illness 11/30/2016 Constitutional No chills 11/30/2016 Constitutional No fatigue 11/30/2016 Constitutional No fever 11/30/2016 Constitutional No insomnia 11/30/2016 Constitutional No malaise 11/30/2016 Eyes No blindness 11/30/2016 Eyes No vision change 11/30/2016 Ears/Nose/Throat/Neck No dental pain 11/30/2016 Ears/Nose/Throat/Neck No dizziness 11/30/2016 Ears/Nose/Throat/Neck No dysphagia 11/30/2016 Ears/Nose/Throat/Neck No headache 11/30/2016 Ears/Nose/Throat/Neck No hearing loss 11/30/2016 Ears/Nose/Throat/Neck No nasal allergies 11/30/2016 Ears/Nose/Throat/Neck No sore throat 11/30/2016 Ears/Nose/Throat/Neck No postnasal drip 11/30/2016 Ears/Nose/Throat/Neck No sinus congestion 11/30/2016 Cardiovascular No chest pain/pressure 11/30/2016 Cardiovascular No dyspnea 11/30/2016 Cardiovascular No edema 11/30/2016 Cardiovascular No exercise intolerance 11/30/2016 Cardiovascular No fatigue 11/30/2016 Cardiovascular No near-syncope/dizziness 11/30/2016 Respiratory No chest tightness 11/30/2016 Respiratory No cough 11/30/2016 Respiratory No dyspnea 11/30/2016 Respiratory No pedal edema 11/30/2016 Gastrointestinal No abdominal pain 11/30/2016 Gastrointestinal No constipation 11/30/2016 Gastrointestinal No diarrhea 11/30/2016 Gastrointestinal No gastroesophageal reflux 11/30/2016 Gastrointestinal No nausea 11/30/2016 Gastrointestinal No vomiting 11/30/2016 Genitourinary/Nephrology No dysuria 11/30/2016 Genitourinary/Nephrology No nocturia 11/30/2016 Genitourinary/Nephrology No urinary incontinence 11/30/2016 Musculoskeletal stiffness 11/30/2016 Musculoskeletal No swelling 11/30/2016 Musculoskeletal arthralgia(s) 11/30/2016 Musculoskeletal No muscle weakness 11/30/2016 Musculoskeletal No myalgias 11/30/2016 Dermatologic No rash 11/30/2016 Dermatologic No sores 11/30/2016 Dermatologic No scar 11/30/2016 Neurologic No dizziness 11/30/2016 Neurologic No headache 11/30/2016 Neurologic No neck pain 11/30/2016 Neurologic No syncope 11/30/2016 Psychiatric No anxiety 11/30/2016 Psychiatric No depression 11/30/2016 Constitutional No recent illness 09/28/2016 Constitutional No chills 09/28/2016 Constitutional No diaphoresis 09/28/2016 Constitutional No fever 09/28/2016 Eyes No eye erythema 09/28/2016 Ears/Nose/Throat/Neck No nasal allergies 09/28/2016 Ears/Nose/Throat/Neck No nasal discharge 09/28/2016 Cardiovascular No chest pain/pressure 09/28/2016 Cardiovascular No dyspnea 09/28/2016 Cardiovascular fatigue 09/28/2016 Respiratory No cough 09/28/2016 Respiratory No chest congestion 09/28/2016 Respiratory No dyspnea 09/28/2016 Gastrointestinal No abdominal pain 09/28/2016 Gastrointestinal No constipation 09/28/2016 Gastrointestinal diarrhea 09/28/2016 Gastrointestinal No vomiting 09/28/2016 Gastrointestinal No nausea 09/28/2016 Gastrointestinal No melena 09/28/2016 Musculoskeletal neck pain 09/28/2016 Musculoskeletal No joint complaint 09/28/2016 Dermatologic No rash 09/28/2016 Neurologic No alteration of consciousness 09/28/2016 Neurologic No mental status change 09/28/2016 Neurologic headache 09/28/2016 Constitutional No recent illness 07/06/2016 Constitutional No fever 07/06/2016 Eyes No eye erythema 07/06/2016 Ears/Nose/Throat/Neck No nasal allergies 07/06/2016 Ears/Nose/Throat/Neck No nasal discharge 07/06/2016 Cardiovascular No chest pain/pressure 07/06/2016 Ears/Nose/Throat/Neck headache 07/06/2016 Respiratory No dyspnea 07/06/2016 Gastrointestinal No abdominal pain 07/06/2016 Dermatologic No rash 07/06/2016 Neurologic No alteration of consciousness 07/06/2016 Neurologic No mental status change 07/06/2016 Constitutional No recent illness 06/01/2016 Constitutional No chills 06/01/2016 Constitutional No fatigue 06/01/2016 Constitutional No fever 06/01/2016 Constitutional No insomnia 06/01/2016 Constitutional No malaise 06/01/2016 Eyes No blindness 06/01/2016 Eyes No vision change 06/01/2016 Ears/Nose/Throat/Neck No dental pain 06/01/2016 Ears/Nose/Throat/Neck No dizziness 06/01/2016 Ears/Nose/Throat/Neck No dysphagia 06/01/2016 Ears/Nose/Throat/Neck No headache 06/01/2016 Ears/Nose/Throat/Neck No hearing loss 06/01/2016 Ears/Nose/Throat/Neck No nasal allergies 06/01/2016 Ears/Nose/Throat/Neck No sore throat 06/01/2016 Ears/Nose/Throat/Neck No postnasal drip 06/01/2016 Ears/Nose/Throat/Neck No sinus congestion 06/01/2016 Cardiovascular No chest pain/pressure 06/01/2016 Cardiovascular No dyspnea 06/01/2016 Cardiovascular No edema 06/01/2016 Cardiovascular No exercise intolerance 06/01/2016 Cardiovascular No fatigue 06/01/2016 Cardiovascular No near-syncope/dizziness 06/01/2016 Respiratory No chest tightness 06/01/2016 Respiratory No cough 06/01/2016 Respiratory No dyspnea 06/01/2016 Respiratory No pedal edema 06/01/2016 Gastrointestinal No abdominal pain 06/01/2016 Gastrointestinal No constipation 06/01/2016 Gastrointestinal No diarrhea 06/01/2016 Gastrointestinal No gastroesophageal reflux 06/01/2016 Gastrointestinal No nausea 06/01/2016 Gastrointestinal No vomiting 06/01/2016 Genitourinary/Nephrology No dysuria 06/01/2016 Genitourinary/Nephrology No nocturia 06/01/2016 Genitourinary/Nephrology No urinary incontinence 06/01/2016 Musculoskeletal stiffness 06/01/2016 Musculoskeletal No swelling 06/01/2016 Musculoskeletal arthralgia(s) 06/01/2016 Musculoskeletal No muscle weakness 06/01/2016 Musculoskeletal No myalgias 06/01/2016 Dermatologic No rash 06/01/2016 Dermatologic No sores 06/01/2016 Dermatologic No scar 06/01/2016 Neurologic No dizziness 06/01/2016 Neurologic No headache 06/01/2016 Neurologic No neck pain 06/01/2016 Neurologic No syncope 06/01/2016 Psychiatric No anxiety 06/01/2016 Psychiatric No depression 06/01/2016 Constitutional No recent illness 02/27/2016 Constitutional No chills 02/27/2016 Constitutional fatigue 02/27/2016 Constitutional No fever 02/27/2016 Eyes No eye erythema 02/27/2016 Eyes No vision change 02/27/2016 Ears/Nose/Throat/Neck nasal allergies 02/27/2016 Ears/Nose/Throat/Neck postnasal drip 02/27/2016 Ears/Nose/Throat/Neck sinus congestion 02/27/2016 Cardiovascular No chest pain/pressure 02/27/2016 Cardiovascular No dyspnea 02/27/2016 Respiratory No dyspnea 02/27/2016 Gastrointestinal No abdominal pain 02/27/2016 Musculoskeletal stiffness 02/27/2016 Musculoskeletal No swelling 02/27/2016 Musculoskeletal arthralgia(s) 02/27/2016 Musculoskeletal No muscle weakness 02/27/2016 Musculoskeletal No myalgias 02/27/2016 Dermatologic No rash 02/27/2016 Dermatologic No sores 02/27/2016 Ears/Nose/Throat/Neck nasal discharge 02/27/2016 Respiratory No chest congestion 02/27/2016 Gastrointestinal No nausea 02/27/2016 Gastrointestinal No vomiting 02/27/2016 Neurologic No alteration of consciousness 02/27/2016 Neurologic No mental status change 02/27/2016 Neurologic headache 02/27/2016 Constitutional No recent illness 09/10/2015 Constitutional No chills 09/10/2015 Constitutional No fatigue 09/10/2015 Constitutional No fever 09/10/2015 Constitutional No insomnia 09/10/2015 Constitutional No malaise 09/10/2015 Eyes No blindness 09/10/2015 Eyes No vision change 09/10/2015 Ears/Nose/Throat/Neck No dental pain 09/10/2015 Ears/Nose/Throat/Neck No dizziness 09/10/2015 Ears/Nose/Throat/Neck No dysphagia 09/10/2015 Ears/Nose/Throat/Neck No headache 09/10/2015 Ears/Nose/Throat/Neck No hearing loss 09/10/2015 Ears/Nose/Throat/Neck No nasal allergies 09/10/2015 Ears/Nose/Throat/Neck No sore throat 09/10/2015 Ears/Nose/Throat/Neck No postnasal drip 09/10/2015 Ears/Nose/Throat/Neck No sinus congestion 09/10/2015 Cardiovascular No chest pain/pressure 09/10/2015 Cardiovascular No dyspnea 09/10/2015 Cardiovascular No edema 09/10/2015 Cardiovascular No exercise intolerance 09/10/2015 Cardiovascular No fatigue 09/10/2015 Cardiovascular No near-syncope/dizziness 09/10/2015 Respiratory No chest tightness 09/10/2015 Respiratory No cough 09/10/2015 Respiratory No dyspnea 09/10/2015 Respiratory No pedal edema 09/10/2015 Gastrointestinal No abdominal pain 09/10/2015 Gastrointestinal No constipation 09/10/2015 Gastrointestinal No diarrhea 09/10/2015 Gastrointestinal No gastroesophageal reflux 09/10/2015 Gastrointestinal No nausea 09/10/2015 Gastrointestinal No vomiting 09/10/2015 Genitourinary/Nephrology No dysuria 09/10/2015 Genitourinary/Nephrology No nocturia 09/10/2015 Genitourinary/Nephrology No urinary incontinence 09/10/2015 Musculoskeletal stiffness 09/10/2015 Musculoskeletal No swelling 09/10/2015 Musculoskeletal arthralgia(s) 09/10/2015 Musculoskeletal No muscle weakness 09/10/2015 Musculoskeletal No myalgias 09/10/2015 Dermatologic No rash 09/10/2015 Dermatologic No sores 09/10/2015 Dermatologic No scar 09/10/2015 Neurologic No dizziness 09/10/2015 Neurologic No headache 09/10/2015 Neurologic No neck pain 09/10/2015 Neurologic No syncope 09/10/2015 Psychiatric No anxiety 09/10/2015 Psychiatric No depression 09/10/2015 Constitutional No recent illness 05/14/2015 Constitutional No chills 05/14/2015 Constitutional No fatigue 05/14/2015 Constitutional No fever 05/14/2015 Constitutional No insomnia 05/14/2015 Constitutional No malaise 05/14/2015 Eyes No blindness 05/14/2015 Eyes No vision change 05/14/2015 Ears/Nose/Throat/Neck No dental pain 05/14/2015 Ears/Nose/Throat/Neck No dizziness 05/14/2015 Ears/Nose/Throat/Neck No dysphagia 05/14/2015 Ears/Nose/Throat/Neck No headache 05/14/2015 Ears/Nose/Throat/Neck No hearing loss 05/14/2015 Ears/Nose/Throat/Neck No nasal allergies 05/14/2015 Ears/Nose/Throat/Neck No sore throat 05/14/2015 Ears/Nose/Throat/Neck No postnasal drip 05/14/2015 Ears/Nose/Throat/Neck No sinus congestion 05/14/2015 Cardiovascular No chest pain/pressure 05/14/2015 Cardiovascular No dyspnea 05/14/2015 Cardiovascular No edema 05/14/2015 Cardiovascular No exercise intolerance 05/14/2015 Cardiovascular No fatigue 05/14/2015 Cardiovascular No near-syncope/dizziness 05/14/2015 Respiratory No chest tightness 05/14/2015 Respiratory No cough 05/14/2015 Respiratory No dyspnea 05/14/2015 Respiratory No pedal edema 05/14/2015 Gastrointestinal No abdominal pain 05/14/2015 Gastrointestinal No constipation 05/14/2015 Gastrointestinal No diarrhea 05/14/2015 Gastrointestinal No gastroesophageal reflux 05/14/2015 Gastrointestinal No nausea 05/14/2015 Gastrointestinal No vomiting 05/14/2015 Genitourinary/Nephrology No dysuria 05/14/2015 Genitourinary/Nephrology No nocturia 05/14/2015 Genitourinary/Nephrology No urinary incontinence 05/14/2015 Musculoskeletal stiffness 05/14/2015 Musculoskeletal No swelling 05/14/2015 Musculoskeletal arthralgia(s) 05/14/2015 Musculoskeletal No muscle weakness 05/14/2015 Musculoskeletal No myalgias 05/14/2015 Dermatologic No rash 05/14/2015 Dermatologic No sores 05/14/2015 Dermatologic No scar 05/14/2015 Neurologic No dizziness 05/14/2015 Neurologic No headache 05/14/2015 Neurologic No neck pain 05/14/2015 Neurologic No syncope 05/14/2015 Psychiatric No anxiety 05/14/2015 Psychiatric No depression 05/14/2015 Constitutional No recent illness 02/11/2015 Constitutional No chills 02/11/2015 Constitutional No fatigue 02/11/2015 Constitutional No fever 02/11/2015 Constitutional No insomnia 02/11/2015 Constitutional No malaise 02/11/2015 Eyes No blindness 02/11/2015 Eyes No vision change 02/11/2015 Ears/Nose/Throat/Neck No dental pain 02/11/2015 Ears/Nose/Throat/Neck No dizziness 02/11/2015 Ears/Nose/Throat/Neck No dysphagia 02/11/2015 Ears/Nose/Throat/Neck No headache 02/11/2015 Ears/Nose/Throat/Neck No hearing loss 02/11/2015 Ears/Nose/Throat/Neck No nasal allergies 02/11/2015 Ears/Nose/Throat/Neck No sore throat 02/11/2015 Ears/Nose/Throat/Neck No postnasal drip 02/11/2015 Ears/Nose/Throat/Neck No sinus congestion 02/11/2015 Cardiovascular No chest pain/pressure 02/11/2015 Cardiovascular No dyspnea 02/11/2015 Cardiovascular No edema 02/11/2015 Cardiovascular No exercise intolerance 02/11/2015 Cardiovascular No fatigue 02/11/2015 Cardiovascular No near-syncope/dizziness 02/11/2015 Respiratory No chest tightness 02/11/2015 Respiratory No cough 02/11/2015 Respiratory No dyspnea 02/11/2015 Respiratory No pedal edema 02/11/2015 Gastrointestinal No abdominal pain 02/11/2015 Gastrointestinal No constipation 02/11/2015 Gastrointestinal No diarrhea 02/11/2015 Gastrointestinal No gastroesophageal reflux 02/11/2015 Gastrointestinal No nausea 02/11/2015 Gastrointestinal No vomiting 02/11/2015 Genitourinary/Nephrology No dysuria 02/11/2015 Genitourinary/Nephrology No nocturia 02/11/2015 Genitourinary/Nephrology No urinary incontinence 02/11/2015 Musculoskeletal stiffness 02/11/2015 Musculoskeletal No swelling 02/11/2015 Musculoskeletal No muscle weakness 02/11/2015 Musculoskeletal No myalgias 02/11/2015 Dermatologic No rash [...] 1994 Constitutional general appearance Overall: well developed 09/06/2018 None Full Exam - General 1994 Constitutional general appearance Overall: in no acute distress 09/06/2018 None Full Exam - General 1994 Constitutional general appearance Overall: well nourished 09/06/2018 None Full Exam - General 1994 Eyes conjunctiva/eyelids Overall: conjunctiva clear 09/06/2018 None Full Exam - General 1994 Eyes conjunctiva/eyelids Overall: cornea clear 09/06/2018 None Full Exam - General 1994 Eyes conjunctiva/eyelids Overall: eyelids normal 09/06/2018 None Full Exam - General 1994 Ears/Nose/Throat otoscopic exam Overall: external auditory canals clear 09/06/2018 None Full Exam - General 1994 Ears/Nose/Throat otoscopic exam Overall: tympanic membranes clear 09/06/2018 None Full Exam - General 1994 Ears/Nose/Throat lips/teeth/gingiva Overall: benign lips 09/06/2018 None Full Exam - General 1994 Ears/Nose/Throat oral cavity/pharynx/larynx Overall: oral mucosa clear 09/06/2018 None Full Exam - General 1994 Respiratory auscultation Overall: breath sounds clear bilaterally 09/06/2018 None Full Exam - General 1994 Respiratory respiratory effort/rhythm Overall: no retractions 09/06/2018 None Full Exam - General 1994 Respiratory respiratory effort/rhythm Overall: normal rate 09/06/2018 None Full Exam - General 1994 Cardiovascular auscultation of heart Overall: regular rate 09/06/2018 None Full Exam - General 1994 Cardiovascular auscultation of heart Overall: normal heart sounds 09/06/2018 None Full Exam - General 1994 Musculoskeletal head and neck Overall: head atraumatic 09/06/2018 None Full Exam - General 1994 Neurologic cranial nerves Overall: crainial nerves 2 - 12 grossly intact 09/06/2018 None Full Exam - General 1994 Psychiatric orientation/consciousness Overall: oriented to person, place and time 09/06/2018 None Full Exam - General 1994 Psychiatric mood and affect Overall: normal mood and affect 09/06/2018 None Full Exam - General 1994 Constitutional general appearance Overall: well developed 07/20/2018 None Full Exam - General 1994 Constitutional general appearance Overall: in no acute distress 07/20/2018 None Full Exam - General 1994 Constitutional general appearance Overall: well nourished 07/20/2018 None Full Exam - General 1995 Eyes conjunctiva/eyelids Overall: conjunctiva clear 07/20/2018 None Full Exam - General 1994 Eyes conjunctiva/eyelids Overall: cornea clear 07/20/2018 None Full Exam - General 1994 Eyes conjunctiva/eyelids Overall: eyelids normal 07/20/2018 None Full Exam - General 1994 Ears/Nose/Throat lips/teeth/gingiva Overall: benign lips 07/20/2018 None Full Exam - General 1994 Ears/Nose/Throat oral cavity/pharynx/larynx Overall: oral mucosa clear 07/20/2018 None Full Exam - General 1994 Respiratory respiratory effort/rhythm Overall: no retractions 07/20/2018 None Full Exam - General 1994 Respiratory respiratory effort/rhythm Overall: normal rate 07/20/2018 None Full Exam - General 1994 Cardiovascular auscultation of heart Overall: regular rate 07/20/2018 None Full Exam - General 1994 Cardiovascular auscultation of heart Overall: normal heart sounds 07/20/2018 None Full Exam - General 1994 Musculoskeletal head and neck Overall: head atraumatic 07/20/2018 None Full Exam - General 1994 Neurologic cranial nerves Overall: crainial nerves 2 - 12 grossly intact 07/20/2018 None Full Exam - General 1994 Psychiatric orientation/consciousness Overall: oriented to person, place and time 07/20/2018 None Full Exam - General 1994 Psychiatric mood and affect Overall: normal mood and affect 07/20/2018 None Full Exam - General 1994 Constitutional general appearance Overall: well developed 07/13/2018 None Full Exam - General 1994 Constitutional general appearance Overall: in no acute distress 07/13/2018 None Full Exam - General 1994 Constitutional general appearance Overall: well nourished 07/13/2018 None Full Exam - General 1994 Eyes conjunctiva/eyelids Overall: conjunctiva clear 07/13/2018 None Full Exam - General 1995 Eyes conjunctiva/eyelids Overall: cornea clear 07/13/2018 None Full Exam - General 1995 Eyes conjunctiva/eyelids Overall: eyelids normal 07/13/2018 None Full Exam - General 1995 Ears/Nose/Throat otoscopic exam Overall: external auditory canals clear 07/13/2018 None Full Exam - General 1995 Ears/Nose/Throat otoscopic exam Overall: tympanic membranes clear 07/13/2018 None Full Exam - General 1995 Ears/Nose/Throat lips/teeth/gingiva Overall: benign lips 07/13/2018 None Full Exam - General 1995 Ears/Nose/Throat oral cavity/pharynx/larynx Overall: oral mucosa clear 07/13/2018 None Full Exam - General 1994 Respiratory auscultation Overall: breath sounds clear bilaterally 07/13/2018 None Full Exam - General 1994 Respiratory respiratory effort/rhythm Overall: no retractions 07/13/2018 None Full Exam - General 1994 Respiratory respiratory effort/rhythm Overall: normal rate 07/13/2018 None Full Exam - General 1994 Cardiovascular auscultation of heart Overall: regular rate 07/13/2018 None Full Exam - General 1994 Cardiovascular auscultation of heart Overall: normal heart sounds 07/13/2018 None Full Exam - General 1994 Musculoskeletal head and neck Overall: head atraumatic 07/13/2018 None Full Exam - General 1994 Neurologic cranial nerves Overall: crainial nerves 2 - 12 grossly intact 07/13/2018 None Full Exam - General 1994 Psychiatric orientation/consciousness Overall: oriented to person, place and time 07/13/2018 None Full Exam - General 1994 Psychiatric mood and affect Overall: normal mood and affect 07/13/2018 None Full Exam - General 1994 Constitutional general appearance Overall: well developed 06/08/2018 None Full Exam - General 1994 Constitutional general appearance Overall: in no acute distress 06/08/2018 None Full Exam - General 1994 Constitutional general appearance Overall: well nourished 06/08/2018 None Full Exam - General 1994 Eyes conjunctiva/eyelids Overall: conjunctiva clear 06/08/2018 None Full Exam - General 1994 Eyes conjunctiva/eyelids Overall: cornea clear 06/08/2018 None Full Exam - General 1994 Eyes conjunctiva/eyelids Overall: eyelids normal 06/08/2018 None Full Exam - General 1995 Ears/Nose/Throat otoscopic exam Overall: external auditory canals clear 06/08/2018 None Full Exam - General 1995 Ears/Nose/Throat otoscopic exam Overall: tympanic membranes clear 06/08/2018 None Full Exam - General 1994 Ears/Nose/Throat lips/teeth/gingiva Overall: benign lips 06/08/2018 None Full Exam - General 1994 Ears/Nose/Throat oral cavity/pharynx/larynx Overall: oral mucosa clear 06/08/2018 None Full Exam - General 1994 Respiratory auscultation Overall: breath sounds clear bilaterally 06/08/2018 None Full Exam - General 1994 Respiratory respiratory effort/rhythm Overall: no retractions 06/08/2018 None Full Exam - General 1994 Respiratory respiratory effort/rhythm Overall: normal rate 06/08/2018 None Full Exam - General 1994 Cardiovascular auscultation of heart Overall: regular rate 06/08/2018 None Full Exam - General 1994 Cardiovascular auscultation of heart Overall: normal heart sounds 06/08/2018 None Full Exam - General 1994 Musculoskeletal spine, ribs and pelvis Spine: tender @ lumbar spine 06/08/2018 None Full Exam - General 1994 Musculoskeletal spine, ribs and pelvis Sacroiliac joints: tender right sacroiliac joint 06/08/2018 None Full Exam - General 1994 Musculoskeletal spine, ribs and pelvis Sacroiliac joints: tender left sacroiliac joint 06/08/2018 None Full Exam - General 1994 Musculoskeletal gait and station Overall: normal gait 06/08/2018 None Full Exam - General 1994 Musculoskeletal gait and station Overall: normal station 06/08/2018 None Full Exam - General 1994 Musculoskeletal head and neck Overall: head atraumatic 06/08/2018 None Full Exam - General 1994 Neurologic cranial nerves Overall: crainial nerves 2 - 12 grossly intact 06/08/2018 None Full Exam - General 1994 Psychiatric orientation/consciousness Overall: oriented to person, place and time 06/08/2018 None Full Exam - General 1994 Psychiatric mood and affect Overall: normal mood and affect 06/08/2018 None Full Exam - General 1994 Constitutional general appearance Overall: well developed 05/30/2018 None Full Exam - General 1994 Constitutional general appearance Overall: in no acute distress 05/30/2018 None Full Exam - General 1994 Constitutional general appearance Overall: well nourished 05/30/2018 None Full Exam - General 1994 Eyes conjunctiva/eyelids Overall: conjunctiva clear 05/30/2018 None Full Exam - General 1994 Eyes conjunctiva/eyelids Overall: cornea clear 05/30/2018 None Full Exam - General 1994 Eyes conjunctiva/eyelids Overall: eyelids normal 05/30/2018 None Full Exam - General 1994 Ears/Nose/Throat otoscopic exam Overall: external auditory canals clear 05/30/2018 None Full Exam - General 1994 Ears/Nose/Throat otoscopic exam Overall: tympanic membranes clear 05/30/2018 None Full Exam - General 1994 Ears/Nose/Throat lips/teeth/gingiva Overall: benign lips 05/30/2018 None Full Exam - General 1994 Ears/Nose/Throat oral cavity/pharynx/larynx Overall: oral mucosa clear 05/30/2018 None Full Exam - General 1994 Respiratory auscultation Overall: breath sounds clear bilaterally 05/30/2018 None Full Exam - General 1994 Respiratory respiratory effort/rhythm Overall: no retractions 05/30/2018 None Full Exam - General 1994 Respiratory respiratory effort/rhythm Overall: normal rate 05/30/2018 None Full Exam - General 1994 Cardiovascular auscultation of heart Overall: regular rate 05/30/2018 None Full Exam - General 1994 Cardiovascular auscultation of heart Overall: normal heart sounds 05/30/2018 None Full Exam - General 1994 Musculoskeletal spine, ribs and pelvis Spine: tender @ lumbar spine 05/30/2018 None Full Exam - General 1994 Musculoskeletal spine, ribs and pelvis Sacroiliac joints: tender right sacroiliac joint 05/30/2018 None Full Exam - General 1994 Musculoskeletal spine, ribs and pelvis Sacroiliac joints: tender left sacroiliac joint 05/30/2018 None Full Exam - General 1994 Musculoskeletal gait and station Overall: normal gait 05/30/2018 None Full Exam - General 1994 Musculoskeletal gait and station Overall: normal station 05/30/2018 None Full Exam - General 1994 Musculoskeletal head and neck Overall: head atraumatic 05/30/2018 None Full Exam - General 1994 Neurologic cranial nerves Overall: crainial nerves 2 - 12 grossly intact 05/30/2018 None Full Exam - General 1994 Psychiatric orientation/consciousness Overall: oriented to person, place and time 05/30/2018 None Full Exam - General 1994 Psychiatric mood and affect Overall: normal mood and affect 05/30/2018 None Full Exam - General 1994 Constitutional general appearance Overall: well developed 05/10/2018 None Full Exam - General 1994 Constitutional general appearance Overall: in no acute distress 05/10/2018 None Full Exam - General 1994 Constitutional general appearance Overall: well nourished 05/10/2018 None Full Exam - General 1994 Eyes conjunctiva/eyelids Overall: conjunctiva clear 05/10/2018 None Full Exam - General 1994 Eyes conjunctiva/eyelids Overall: cornea clear 05/10/2018 None Full Exam - General 1994 Eyes conjunctiva/eyelids Overall: eyelids normal 05/10/2018 None Full Exam - General 1994 Ears/Nose/Throat otoscopic exam Overall: external auditory canals clear 05/10/2018 None Full Exam - General 1995 Ears/Nose/Throat lips/teeth/gingiva Overall: benign lips 05/10/2018 None Full Exam - General 1995 Ears/Nose/Throat [...] developed 04/21/2018 None Full Exam - General 1995 Constitutional general appearance Overall: in no acute distress 04/21/2018 None Full Exam - General 1994 Constitutional general appearance Overall: well nourished 04/21/2018 None Full Exam - General 1995 Eyes conjunctiva/eyelids Overall: eyelids normal 04/21/2018 None Full Exam - General 1995 Eyes conjunctiva/eyelids Overall: cornea clear 04/21/2018 None Full Exam - General 1995 Eyes conjunctiva/eyelids Overall: conjunctiva clear 04/21/2018 None Full Exam - General 1995 Ears/Nose/Throat otoscopic exam Overall: external auditory canals clear 04/21/2018 None Full Exam - General 1994 Ears/Nose/Throat lips/teeth/gingiva Overall: benign lips 04/21/2018 None Full Exam - General 1994 Ears/Nose/Throat oral cavity/pharynx/larynx Overall: oral mucosa clear 04/21/2018 None Full Exam - General 1994 Ears/Nose/Throat otoscopic exam Tympanic membrane: air-fluid level 04/21/2018 None Full Exam - General [...] None Full Exam - General 1994 Eyes conjunctiva/eyelids Overall: conjunctiva clear 04/13/2018 None Full Exam - General 1994 Eyes conjunctiva/eyelids Overall: cornea clear 04/13/2018 None Full Exam - General 1994 Eyes conjunctiva/eyelids Overall: eyelids normal 04/13/2018 None Full Exam [...] None Full Exam - General 1994 Eyes conjunctiva/eyelids Overall: conjunctiva clear 04/04/2018 None Full Exam - General 1994 Eyes conjunctiva/eyelids Overall: cornea clear 04/04/2018 None Full Exam - General 1994 Eyes conjunctiva/eyelids Overall: eyelids normal 04/04/2018 None Full Exam [...] None Full Exam - General 1994 Eyes conjunctiva/eyelids Overall: conjunctiva clear 04/01/2018 None Full Exam - General 1994 Eyes conjunctiva/eyelids Overall: cornea clear 04/01/2018 None Full Exam - General 1994 Eyes conjunctiva/eyelids Overall: eyelids normal 04/01/2018 None Full Exam [...] None Full Exam - General 1994 Eyes conjunctiva/eyelids Overall: conjunctiva clear 03/24/2018 None Full Exam - General 1994 Eyes conjunctiva/eyelids Overall: eyelids normal 03/24/2018 None Full Exam [...] None Full Exam - General 1994 Eyes conjunctiva/eyelids Overall: cornea clear 03/24/2018 None Full Exam [...] ENT Ears/Nose/Throat otoscopic exam Left tympanic membrane: air-fluid level 03/01/2018 None Full [...] 03/01/2018 None Full Exam - ENT Ears/Nose/Throat lips/teeth/gingiva Overall: benign lips 03/01/2018 None Full Exam - ENT Ears/Nose/Throat oropharynx Overall: oral mucosa clear 03/01/2018 None Full Exam - ENT Ears/Nose/Throat oropharynx Posterior Pharynx: clear post nasal drainage 03/01/2018 None Full Exam - ENT Respiratory inspection Overall: no retractions 03/01/2018 None Full Exam - ENT Respiratory inspection Overall: normal rate 03/01/2018 None Full Exam - ENT Respiratory auscultation [...] None Full Exam - General 1994 Eyes conjunctiva/eyelids Overall: conjunctiva clear 12/24/2017 None Full Exam - General 1995 Eyes conjunctiva/eyelids Overall: eyelids normal 12/24/2017 None Full Exam [...] None Full Exam - General 1994 Eyes conjunctiva/eyelids Overall: conjunctiva clear 11/18/2017 None Full Exam - General 1994 Eyes conjunctiva/eyelids Overall: cornea clear 11/18/2017 None Full Exam - General 1994 Eyes conjunctiva/eyelids Overall: eyelids normal 11/18/2017 None Full Exam [...] ENT Ears/Nose/Throat otoscopic exam Left tympanic membrane: air-fluid level 11/03/2017 None Full [...] 11/03/2017 None Full Exam - ENT Ears/Nose/Throat lips/teeth/gingiva Overall: benign lips 11/03/2017 None Full Exam - ENT Ears/Nose/Throat oropharynx Overall: oral mucosa clear 11/03/2017 None Full Exam - ENT Ears/Nose/Throat oropharynx Posterior Pharynx: clear post nasal drainage 11/03/2017 None Full Exam - ENT Respiratory auscultation Overall: breath sounds clear bilaterally 11/03/2017 None Full Exam - ENT Respiratory inspection Overall: normal rate 11/03/2017 None Full Exam - ENT Respiratory [...] None Full Exam - General 1994 Eyes conjunctiva/eyelids Overall: eyelids normal 09/22/2017 None Full Exam - General 1994 Eyes conjunctiva/eyelids Overall: cornea clear 09/22/2017 None Full Exam - General 1994 Eyes conjunctiva/eyelids Overall: conjunctiva clear 09/22/2017 None Full Exam [...] None Full Exam - General 1994 Eyes conjunctiva/eyelids Overall: conjunctiva clear 04/01/2017 None Full Exam - General 1994 Eyes conjunctiva/eyelids Overall: eyelids normal 04/01/2017 None Full Exam - General 1994 Ears/Nose/Throat otoscopic exam Overall: external auditory canals clear 04/01/2017 None Full Exam - General 1994 Ears/Nose/Throat otoscopic exam Tympanic membrane: air-fluid level 04/01/2017 None Full Exam - General [...] None Full Exam - General 1994 Eyes conjunctiva/eyelids Overall: conjunctiva clear 03/25/2017 None Full Exam - General 1994 Eyes conjunctiva/eyelids Overall: cornea clear 03/25/2017 None Full Exam - General 1994 Eyes conjunctiva/eyelids Overall: eyelids normal 03/25/2017 None Full Exam [...] None Full Exam - General 1994 Eyes conjunctiva/eyelids Overall: conjunctiva clear 12/23/2016 None Full Exam - General 1994 Eyes conjunctiva/eyelids Overall: eyelids normal 12/23/2016 None Full Exam [...] None Full Exam - General 1994 Eyes conjunctiva/eyelids Overall: conjunctiva clear 12/22/2016 None Full Exam - General 1994 Eyes conjunctiva/eyelids Overall: cornea clear 12/22/2016 None Full Exam - General 1994 Eyes conjunctiva/eyelids Overall: eyelids normal 12/22/2016 None Full Exam [...] None Full Exam - General 1994 Eyes conjunctiva/eyelids Overall: conjunctiva clear 12/08/2016 None Full Exam - General 1994 Eyes conjunctiva/eyelids Overall: cornea clear 12/08/2016 None Full Exam - General 1994 Eyes conjunctiva/eyelids Overall: eyelids normal 12/08/2016 None Full Exam [...] None Full Exam - General 1994 Eyes conjunctiva/eyelids Overall: conjunctiva clear 11/30/2016 None Full Exam - General 1994 Eyes conjunctiva/eyelids Overall: cornea clear 11/30/2016 None Full Exam - General 1994 Eyes conjunctiva/eyelids Overall: eyelids normal 11/30/2016 None Full Exam [...] None Full Exam - General 1994 Eyes conjunctiva/eyelids Overall: conjunctiva clear 09/28/2016 None Full Exam - General 1994 Eyes conjunctiva/eyelids Overall: cornea clear 09/28/2016 None Full Exam - General 1994 Eyes conjunctiva/eyelids Overall: eyelids normal 09/28/2016 None Full Exam [...] None Full Exam - General 1994 Eyes conjunctiva/eyelids Overall: conjunctiva clear 07/06/2016 None Full Exam - General 1994 Eyes conjunctiva/eyelids Overall: eyelids normal 07/06/2016 None Full Exam [...] None Full Exam - General 1994 Eyes conjunctiva/eyelids Overall: conjunctiva clear 06/01/2016 None Full Exam - General 1994 Eyes conjunctiva/eyelids Overall: cornea clear 06/01/2016 None Full Exam - General 1994 Eyes conjunctiva/eyelids Overall: eyelids normal 06/01/2016 None Full Exam [...] None Full Exam - General 1994 Eyes conjunctiva/eyelids Overall: conjunctiva clear 02/27/2016 None Full Exam - General 1994 Eyes conjunctiva/eyelids Overall: eyelids normal 02/27/2016 None Full Exam [...] General 1994 Ears/Nose/Throat otoscopic exam Tympanic membrane: air-fluid level 02/27/2016 None Full Exam - General [...] None Full Exam - General 1994 Eyes conjunctiva/eyelids Overall: conjunctiva clear 09/10/2015 None Full Exam - General 1994 Eyes conjunctiva/eyelids Overall: cornea clear 09/10/2015 None Full Exam - General 1994 Eyes conjunctiva/eyelids Overall: eyelids normal 09/10/2015 None Full Exam [...] None Full Exam - General 1994 Eyes conjunctiva/eyelids Overall: conjunctiva clear 05/14/2015 None Full Exam - General 1994 Eyes conjunctiva/eyelids Overall: cornea clear 05/14/2015 None Full Exam - General 1994 Eyes conjunctiva/eyelids Overall: eyelids normal 05/14/2015 None Full Exam [...] None Full Exam - General 1994 Eyes conjunctiva/eyelids Overall: conjunctiva clear 02/11/2015 None Full Exam - General 1994 Eyes conjunctiva/eyelids Overall: cornea clear 02/11/2015 None Full Exam - General 1994 Eyes conjunctiva/eyelids Overall: eyelids normal 02/11/2015 None Full Exam [...] affect 02/11/2015 None Full Exam - General 1995 Musculoskeletal lower extremity Palpation - knee: crepitus 02/11/2015 None Procedures Procedure Codes Date THER/PROPH/DIAG INJ SC/IM CPT-4: 55560 04/08/2018 ROCEPHIN, PER 250 MG CPT- 4: J0696 04/08/2018 THER/PROPH/DIAG INJ SC/IM CPT-4: 19780 04/07/2018 ROCEPHIN, PER 250 MG CPT- 4: J0696 04/07/2018 THER/PROPH/DIAG INJ SC/IM CPT-4: 09997 04/06/2018 ROCEPHIN, PER 250 MG CPT- 4: J0696 04/06/2018 THER/PROPH/DIAG INJ SC/IM CPT-4: 15994 04/05/2018 ROCEPHIN, PER 250 MG CPT- 4: J0696 04/05/2018 KETOROLAC TROMETHAMINE INJ CPT-4: J1885 04/05/2018 THER/PROPH/DIAG INJ SC/IM CPT-4: 98946 04/04/2018 ROCEPHIN, PER 250 MG CPT- 4: J0696 04/04/2018 KETOROLAC TROMETHAMINE INJ CPT-4: J1885 04/04/2018 URINALYSIS NONAUTO W/O SCOPE CPT-4: 33643 03/24/2018 PPPS, SUBSEQ VISIT CPT- 4: G0439 12/24/2017 THER/PROPH/DIAG INJ SC/IM CPT-4: 78317 12/24/2017 TRIAMCINOLONE ACET INJ NOS CPT-4: J3301 12/24/2017 THER/PROPH/DIAG INJ SC/IM CPT-4: 97581 11/18/2017 ROCEPHIN, PER 250 MG CPT- 4: J0696 11/18/2017 PRESCRIP TRANSMIT VIA ERX SY CPT-4: G8553 04/01/2017 TRIAMCINOLONE ACET INJ NOS CPT-4: J3301 03/25/2017 PPPS, SUBSEQ VISIT CPT- 4: G0439 12/23/2016 THER/PROPH/DIAG INJ SC/IM CPT-4: 82590 12/08/2016 TRIAMCINOLONE ACET INJ NOS CPT-4: J3301 12/08/2016 PRESCRIP TRANSMIT VIA ERX SY CPT-4: G8553 12/08/2016 PRESCRIP TRANSMIT VIA ERX SY CPT-4: G8553 11/30/2016 URINALYSIS NONAUTO W/O SCOPE CPT-4: 79875 07/08/2016 PRESCRIP TRANSMIT VIA ERX SY CPT-4: G8553 06/01/2016 PRESCRIP TRANSMIT VIA ERX SY CPT-4: G8553 02/27/2016 THER/PROPH/DIAG INJ SC/IM CPT-4: 84360 03/01/2015 ROCEPHIN, PER 250 MG CPT- 4: J0696 03/01/2015 THER/PROPH/DIAG INJ SC/IM CPT-4: 45680 02/28/2015 ROCEPHIN, PER 250 MG CPT- 4: J0696 02/28/2015 THER/PROPH/DIAG INJ SC/IM CPT-4: 23803 02/27/2015 ROCEPHIN, PER 250 MG CPT- 4: J0696 02/27/2015 THER/PROPH/DIAG INJ SC/IM CPT-4: 04081 02/26/2015 ROCEPHIN, PER 250 MG CPT- 4: J0696 02/26/2015 THER/PROPH/DIAG INJ SC/IM CPT-4: 64715 02/25/2015 ROCEPHIN, PER 250 MG CPT- 4: J0696 02/25/2015 URINALYSIS NONAUTO W/O SCOPE CPT-4: 55461 02/21/2015 Vital Signs Date Vital 09/06/2018 Blood Pressure 1: 146/76 Code: 8480-6 BMI: 27.6 Code: 36431-1 Heart Rate 1: 67 bpm Height: 5'3" SpO2: 96% Weight: 155 lbs 13 oz 07/20/2018 Blood Pressure 1: 140/66 Code: 8480-6 BMI: 28.0 Code: 35939-6 Heart Rate 1: 64 bpm Height: 5'3" SpO2: 96% Weight: 158 lbs 07/13/2018 Blood Pressure 1: 144/60 Code: 8480-6 BMI: 28.0 Code: 04519-8 Heart Rate 1: 66 bpm Height: 5'3" SpO2: 98% Weight: 158 lbs 06/08/2018 Blood Pressure 1: 132/76 Code: 8480-6 BMI: 28.0 Code: 86978-8 Heart Rate 1: 70 bpm Height: 5'3" SpO2: 98% Weight: 158 lbs 05/30/2018 Blood Pressure 1: 136/72 Code: 8480-6 BMI: 28.0 Code: 67747-0 Heart Rate 1: 84 bpm Height: 5'3" Weight: 158 lbs 05/10/2018 Blood Pressure 1: 130/72 Code: 8480-6 BMI: 28.2 Code: 27433-5 Heart Rate 1: 70 bpm Height: 5'3" SpO2: 97% Weight: 159 lbs 04/21/2018 Blood Pressure 1: 154/70 Code: 8480-6 Heart Rate 1: 69 bpm Height: 5'3" SpO2: 96% Weight: 04/13/2018 Blood Pressure 1: 142/76 Code: 8480-6 Heart Rate 1: 78 bpm SpO2: 94% 04/07/2018 Blood Pressure 1: 160/80 Code: 8480-6 Heart Rate 1: 60 bpm 04/04/2018 Blood Pressure 1: 130/60 Code: 8480-6 Heart Rate 1: 78 bpm Height: Weight: 04/01/2018 Blood Pressure 1: 134/58 Code: 8480-6 BMI: 27.8 Code: 94824-3 Heart Rate 1: 85 bpm Height: 5'3" SpO2: 96% Weight: 157 lbs 03/24/2018 Blood Pressure 1: 128/82 Code: 8480-6 BMI: 27.8 Code: 43193-0 Heart Rate 1: 84 bpm Height: 5'3" SpO2: 97% Weight: 157 lbs 03/01/2018 Blood Pressure 1: 136/70 Code: 8480-6 BMI: 27.8 Code: 53629-6 Heart Rate 1: 70 bpm Height: 5'3" SpO2: 96% Weight: 157 lbs 12/24/2017 Height: Weight: 11/18/2017 Blood Pressure 1: 164/74 Code: 8480-6 BMI: 27.6 Code: 64635-4 Heart Rate 1: 70 bpm Height: 5'3" SpO2: 96% Weight: 156 lbs 11/03/2017 Blood Pressure 1: 118/72 Code: 8480-6 BMI: 27.6 Code: 24777-4 Heart Rate 1: 82 bpm Height: 5'3" SpO2: 96% Weight: 156 lbs 09/22/2017 Blood Pressure 1: 136/68 Code: 8480-6 BMI: 27.6 Code: 77166-9 Heart Rate 1: 70 bpm Height: 5'3" SpO2: 97% Weight: 156 lbs 04/01/2017 Blood Pressure 1: 144/82 Code: 8480-6 Heart Rate 1: 68 bpm Height: 5'3" SpO2: 97% Weight: 03/25/2017 Blood Pressure 1: 116/70 Code: 8480-6 BMI: 26.7 Code: 80361-1 Heart Rate 1: 67 bpm Height: 5'3" SpO2: 98% Weight: 151 lbs 12/23/2016 BMI: 26.7 Code: 27754-3 Height: 5'3" Weight: 151 lbs 12/22/2016 Blood Pressure 1: 142/60 Code: 8480-6 BMI: 26.7 Code: 06479-5 Heart Rate 1: 67 bpm Height: 5'3" SpO2: 98% Weight: 151 lbs 12/08/2016 Blood Pressure 1: 140/72 Code: 8480-6 Heart Rate 1: 72 bpm Height: 5'3" SpO2: 97% Weight: 11/30/2016 Blood Pressure 1: 128/80 Code: 8480-6 BMI: 26.7 Code: 15926-6 Heart Rate 1: 63 bpm Height: 5'3" SpO2: 96% Weight: 151 lbs 09/28/2016 Blood Pressure 1: 130/80 Code: 8480-6 BMI: 27.1 Code: 30539-7 Heart Rate 1: 80 bpm Height: 5'3" SpO2: 97% Weight: 153 lbs 07/06/2016 Blood Pressure 1: 162/72 Code: 8480-6 BMI: 27.6 Code: 24004-9 Heart Rate 1: 72 bpm Height: 5'3" SpO2: 98% Weight: 156 lbs 06/01/2016 Blood Pressure 1: 122/66 Code: 8480-6 BMI: 27.5 Code: 17148-0 Heart Rate 1: 73 bpm Height: 5'3" SpO2: 98% Weight: 155 lbs 8 oz 02/27/2016 Blood Pressure 1: 126/68 Code: 8480-6 BMI: 26.9 Code: 62406-6 Heart Rate 1: 70 bpm Height: 5'3" SpO2: 98% Weight: 152 lbs 09/10/2015 Blood Pressure 1: 130/70 Code: 8480-6 BMI: 26.9 Code: 37206-0 Heart Rate 1: 72 bpm Height: 5'3" SpO2: 97% Weight: 152 lbs 05/14/2015 Blood Pressure 1: 138/82 Code: 8480-6 BMI: 26.4 Code: 17734-5 Heart Rate 1: 75 bpm Height: 5'3" SpO2: 98% Weight: 149 lbs 02/11/2015 Blood Pressure 1: 128/72 Code: 8480-6 BMI: 25.5 Code: 88582-8 Heart Rate 1: 73 bpm Height: 5'3" SpO2: 94% Weight: 144 lbs Functional Status No Functional Status data History of Present Illness Symptom Name Status Result Effective Date Notes Quality primary hypertension 09/06/2018 None Onset and Resolution ongoing 09/06/2018 None Onset of Symptom during adulthood 09/06/2018 None Alleviating Factors medication 09/06/2018 None Quality chronic 09/06/2018 None Onset and Resolution Denies ongoing 09/06/2018 None Alleviating Factors medication 09/06/2018 None Blood Pressure Values patient checking blood pressure at home - did not bring in readings 09/06/2018 None Pertinent Findings decreased energy 09/06/2018 -better than it was Pertinent Findings Denies dizziness 09/06/2018 None Pertinent Findings Denies dyspnea 09/06/2018 None Pertinent Findings edema 09/06/2018 in both knees and ankles- worse in the right Quality chronic 09/06/2018 None Quality acute 07/20/2018 None Onset and Resolution sudden in onset 07/20/2018 None Quality intermittent 07/20/2018 None Pertinent Findings Denies fever 07/20/2018 None Limitation on Activities moderately limits activities 07/13/2018 None Frequency of Episodes daily 07/13/2018 None Pertinent Findings Denies fever 07/13/2018 None Onset and Resolution ongoing 07/13/2018 None Onset and Resolution ongoing 07/13/2018 None Location lumbar-sacral spine 07/13/2018 None Quality constant 07/13/2018 None Onset and Resolution ongoing 07/13/2018 None Limitation on Activities moderately limits activities 06/08/2018 None Frequency of Episodes daily 06/08/2018 None Limitation on Activities moderately limits activities 05/30/2018 None Frequency of Episodes daily 05/30/2018 None Pertinent Findings Denies fever 05/30/2018 None Onset and Resolution ongoing 05/30/2018 None Onset and Resolution ongoing 05/30/2018 None Location lumbar-sacral spine 05/30/2018 None Quality constant 05/30/2018 None Onset and Resolution ongoing 05/30/2018 None Limitation on Activities moderately limits activities 05/10/2018 None Frequency of Episodes daily 05/10/2018 None Pertinent Findings Denies fever 05/10/2018 None Onset and Resolution ongoing 05/10/2018 None Onset and Resolution ongoing 05/10/2018 None Location lumbar-sacral spine 05/10/2018 None Quality constant 05/10/2018 None Onset and Resolution ongoing 05/10/2018 None Limitation on Activities moderately limits activities 04/21/2018 None Pertinent Findings Denies fever 04/21/2018 None Onset and Resolution ongoing 04/21/2018 None Frequency of Episodes daily 04/21/2018 None Onset and Resolution ongoing 04/21/2018 None Location lumbar-sacral spine 04/21/2018 None Quality constant 04/21/2018 None Onset and Resolution ongoing 04/21/2018 [...] urinary urgency 03/24/2018 None Location right ear 03/24/2018 None Quality sharp pain 03/24/2018 None Onset and Resolution Denies ongoing 03/24/2018 None Onset of Symptom 1 months ago 03/24/2018 None Location in the frontal area 03/24/2018 None Location in the left occipital area 03/24/2018 None Location in the right occipital area 03/24/2018 None Quality intermittent 03/24/2018 None Quality pressure 03/24/2018 None Onset and Resolution Denies gradual in [...] Annual Medicare Wellness Exam Blood Pressure (self reported) borderline (120/80 - 139/89) 12/24/2017 None Annual Medicare Wellness Exam Cholesterol (self reported) desireable (below 200) 12/24/2017 None Annual Medicare Wellness Exam Handling Stress usually taisha effectively 12/24/2017 None Annual Medicare Wellness Exam Hemaglobin A-1C (self reported) don't know 12/24/2017 None Annual [...] the throat 04/01/2017 None cough Quality acute 04/01/2017 None cough Onset and Resolution sudden in [...] Annual Medicare Wellness Exam Blood Pressure (self reported) borderline (120/80 - 139/89) 12/23/2016 None Annual [...] Annual Medicare Wellness Exam Hemaglobin A-1C (self reported) don't know 12/23/2016 None Annual [...] data Encounters Encounter Performer Location Codes Date [id number]) [id number] EST. PATIENT, LEVEL III Diagnosis: Essential (primary) hypertension[ICD10: I10] Diagnosis: Atrophy of thyroid (acquired)[ICD10: E03.4] [facility] CPT-4: 72222 09/06/2018 04343 EST. PATIENT, LEVEL III Diagnosis: Dysuria[ICD10: R30.0] Bridget Cortez MD, [facility] CPT-4: 65436 07/20/2018 ([id number]) [id number] EST. PATIENT, LEVEL III Diagnosis: Essential (primary) hypertension[ICD10: I10] Diagnosis: Atrophy of thyroid (acquired)[ICD10: E03.4] Elen Cortez MD, [facility] CPT-4: 73928 07/13/2018 [id number] EST. PATIENT, LEVEL III Diagnosis: Other fatigue[ICD10: R53.83] Diagnosis: Essential (primary) hypertension[ICD10: I10] Bridget Cortez MD, [facility] CPT-4: 88908 06/08/2018 13686 EST. PATIENT, LEVEL IV Diagnosis: Essential (primary) hypertension[ICD10: I10] Diagnosis: Other fatigue[ICD10: R53.83] Diagnosis: Other allergic rhinitis[ICD10: J30.89] Bridget Cortez MD, [facility] CPT- 4: 03276 05/30/2018 61358 EST. PATIENT, LEVEL IV Diagnosis: Essential (primary) hypertension[ICD10: I10] Diagnosis: Other fatigue[ICD10: R53.83] Bridget Cortez MD, [facility] CPT-4: 19901 05/10/2018 52443 EST. PATIENT, LEVEL IV Diagnosis: Low back pain[ICD10: M54.5] Diagnosis: Essential (primary) hypertension[ICD10: I10] Diagnosis: Other fatigue[ICD10: R53.83] Diagnosis: Other malaise[ICD10: R53.81] Bridget Cortez MD, [facility] CPT-4: 37183 04/21/2018 72571 EST. PATIENT, LEVEL III Diagnosis: Other fatigue[ICD10: R53.83] Diagnosis: Otalgia, right ear[ICD10: H92.01] Bridget Cortez MD, [facility] CPT-4: 10879 04/13/2018 ([id number]) 45293 EST. PATIENT, LEVEL III Diagnosis: Essential (primary) hypertension[ICD10: I10] Diagnosis: Dysuria[ICD10: R30.0] Diagnosis: Nausea[ICD10: R11.0] Diagnosis: Headache[ICD10: R51] Elen Cortez MD, [facility] CPT-4: 22963 04/04/2018 98309 EST. PATIENT, LEVEL III Diagnosis: Other acute sinusitis[ICD10: J01.80] Diagnosis: Dizziness and giddiness[ICD10: R42] Diagnosis: Dysuria[ICD10: R30.0] Diagnosis: Candidal stomatitis[ICD10: B37.0] Diagnosis: Essential (primary) hypertension[ICD10: I10] Diagnosis: Other fatigue[ICD10: R53.83] Diagnosis: Other malaise[ICD10: R53.81] Bridget Cortez MD, [facility] CPT-4: 44783 04/01/2018 ([id number]) 08143 EST. 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 PATIENT, LEVEL IV Diagnosis: Otalgia, right ear[ICD10: H92.01] Diagnosis: Headache[ICD10: R51] Diagnosis: Other fatigue[ICD10: R53.83] Diagnosis: Abnormal findings on diagnostic imaging of other specified body structures[ICD10: R93.89] Elen Cortez MD, [facility] CPT-4: 71585 03/01/2018 94215 EST. PATIENT, LEVEL III Diagnosis: Acute cystitis with hematuria[ICD10: N30.01] Bridget Cortez MD, [facility] CPT-4: 13011 11/18/2017 26769 EST. PATIENT, LEVEL IV Diagnosis: Other acute sinusitis[ICD10: J01.80] Diagnosis: Otalgia, right ear[ICD10: H92.01] Bridget Cortez MD, [facility] CPT-4: 13013 11/03/2017 30310 EST. PATIENT, LEVEL III Diagnosis: Other fatigue[ICD10: R53.83] Diagnosis: Other malaise[ICD10: R53.81] Diagnosis: Pain in left knee[ICD10: M25.562] Diagnosis: Pain in right knee[ICD10: M25.561] Bridget Cortez MD, [facility] CPT-4: 07123 09/22/2017 ([id number]) 66562 EST. PATIENT, LEVEL III Diagnosis: Cough[ICD10: R05] Diagnosis: Acute bronchitis due to other specified organisms[ICD10: J20.8] Elen Cortez MD, [facility] CPT-4: 38799 04/01/2017 ([id number]) 91267 EST. PATIENT, LEVEL III Diagnosis: Otalgia, right ear[ICD10: H92.01] Diagnosis: Other allergic rhinitis[ICD10: J30.89] Shiela Cortez MD, [facility] CPT-4: 47609 03/25/2017 ([id number]) 78502 EST. PATIENT, LEVEL III Diagnosis: Benign paroxysmal vertigo, bilateral[ICD10: H81.13] Shiela Cortez MD, [facility] CPT-4: 01590 12/22/2016 ([id number]) 42696 EST. PATIENT, LEVEL IV Diagnosis: Benign paroxysmal vertigo, bilateral[ICD10: H81.13] Diagnosis: Other allergic rhinitis[ICD10: J30.89] Diagnosis: Hypothyroidism, unspecified[ICD10: E03.9] Shiela Cortez MD, [facility] CPT-4: 84321 12/08/2016 ([id number]) [id number] EST. PATIENT, LEVEL IV Diagnosis: Atrophy of thyroid (acquired)[ICD10: E03.4] Diagnosis: Essential (primary) hypertension[ICD10: I10] Diagnosis: Mixed hyperlipidemia[ICD10: E78.2] Elen Cortez MD, [facility] CPT- 4: 56415 11/30/2016 28235 EST. PATIENT, LEVEL IV Diagnosis: Headache[ICD10: R51] Diagnosis: Other fatigue[ICD10: R53.83] Diagnosis: Dizziness and giddiness[ICD10: R42] Bridget Cortez MD, [facility] CPT- 4: 74616 09/28/2016 46870 EST. PATIENT, LEVEL IV Diagnosis: Essential (primary) hypertension[ICD10: I10] Diagnosis: Headache[ICD10: R51] Bridget Cortez MD, [facility] CPT-4: 53038 07/06/2016 ([id number]) 26271 EST. PATIENT, LEVEL IV Diagnosis: Essential (primary) hypertension[ICD10: I10] Diagnosis: Atrophy of thyroid (acquired)[ICD10: E03.4] Diagnosis: Mixed hyperlipidemia[ICD10: E78.2] Elen Cortez MD, [facility] CPT- 4: 17629 06/01/2016 12344 EST. PATIENT, LEVEL IV Diagnosis: Acute laryngopharyngitis[ICD10: J06.0] Diagnosis: Other allergic rhinitis[ICD10: J30.89] Diagnosis: Other specified hypothyroidism[ICD10: E03.8] Diagnosis: Other fatigue[ICD10: R53.83] Bridget Cortez MD, [facility] CPT-4: 38883 02/27/2016 ([id number]) 61119 EST. PATIENT, LEVEL III Diagnosis: Essential (primary) hypertension[ICD10: I10] Diagnosis: Mixed hyperlipidemia[ICD10: E78.2] Elen Cortez MD, [facility] CPT- 4: 52046 09/10/2015 ([id number]) 74067 EST. PATIENT, LEVEL IV Diagnosis: Essential (primary) hypertension[ICD10: I10] Diagnosis: Hypothyroidism, unspecified[ICD10: E03.9] Diagnosis: Unspecified osteoarthritis, unspecified site[ICD10: M19.90] Elen Cortez MD, [facility] CPT-4: 72837 05/14/2015 ([id number]) OFFICE VISIT, NEW - LEVEL 4 Diagnosis: Essential (primary) hypertension[ICD10: I10] Diagnosis: Hypothyroidism, unspecified[ICD10: E03.9] Diagnosis: Unspecified osteoarthritis, unspecified site[ICD10: M19.90] Elen Cortez MD, [facility] CPT-4: 37491 02/11/2015 Plan of Care Planned Activity Notes [...] directed otherwise. Check labs at regular intervals q 3 months or q 6 months based on previous levels of control. 09/06/2018 Appointment: Elen Cortez WPtel: [phone] [facility] (15 min) Moderate 09/06/2018 Patient Education: Patient Medication Summary Completed 09/06/2018 Appointment: Bridget Velazco WPtel: [phone] [facility] (15 min) Moderate 08/09/2018 Visit Plan: UTI - pt with positive urinalysis - culture sent if appropriate. Antibiotic electronically prescribed to pt's pharmacy of choice. Pt to call if symptoms do not improve. 07/20/2018 Appointment: Bridget Velazco WPtel: [phone] [facility] (10 min) Simple 07/20/2018 Patient Education: Patient Medication Summary Completed 07/20/2018 Visit Plan: Hypertension - well controlled - [...] directed otherwise. Check labs at regular intervals q 3 months or q 6 months based on previous levels of control. 07/13/2018 Appointment: [phone] [place] (30 min) Complex 07/13/2018 Patient Education: Patient Medication Summary Completed 07/13/2018 Visit Plan: Ongoing fatigue - will check labs and treat as indicated - pt is to follow up with Dr. Cortez for ongoing, persistent complaints - pt is to notify clinic with any changes, questions, or concerns. Hypertension - well controlled - continue with current medications, continue with no added salt diet. Pt has been encouraged to exercise daily. The pt has been advised to call the office if there are any acute concerns about change in blood pressure readings at home. 06/08/2018 Appointment: Bridget Velazco WPtel: [address] [place], [place] [phone] (15 min) Moderate 06/08/2018 Patient Education: Patient Medication Summary Completed 06/08/2018 Visit Plan: Hypertension - The patient has [...] to call for acute concerns. fatigue - ongoing - pt is to continue with Dr. Steven and update clinic after her heart cath. She is to notify clinic with any changes, questions, or concerns. Allergies - chronic - recommended pt to [...] spray in the nasal steroid allergy spray. 05/30/2018 Appointment: Bridget Velazco WPtel: [address] [place], [place] [phone] (15 min) Moderate 05/30/2018 Patient Education: Patient Medication Summary Completed 05/30/2018 Visit Plan: Hypertension - The patient has [...] or concerns. 05/10/2018 Appointment: Bridget Velazco WPtel: [address] [place], [place] [phone] (15 min) Moderate 05/10/2018 Patient Education: Patient Medication Summary Completed 05/10/2018 Appointment: Elen Cortez WPtel: [facility] (15 min) Moderate 05/05/2018 Referral: Wan Steven Referral Completed 04/28/2018 Visit Plan: Hypertension - uncontrolled - Defer to cardiology - The patient has been counseled to cut back on salt in diet for a no added salt diet, low fat diet, start an exercise program with low weight bearing e xercises and higher aerobic activity for heart health. [...] or concerns. 04/21/2018 Appointment: Bridget Velazco WPtel: [facility] (15 min) Moderate 04/21/2018 Patient Education: Patient Medication Summary Completed 04/21/2018 Patient Education: Back Pain Completed 04/21/2018 Appointment: Bridget Velazco WPtel: [facility] (15 min) Moderate 04/14/2018 Care Plan: Urine Culture Pending 04/14/2018 Visit Plan: UTI - symptoms resolved - repeat UA negative - pt is to notify clinic if symptoms return or with any questions or concerns Fatigue - pt is to notify clinic if symptoms are not improving, pt is to increa se fluid intake Ear pain - ongoing - will refer to Dr. Saini. 04/13/2018 Appointment: Bridget Velazco WPtel: [facility] [place] (30 min) Complex 04/13/2018 Patient Education: Patient Medication Summary Completed 04/13/2018 Appointment: Nurse Visit 04/08/2018 Appointment: Bridget Velazco WPtel: [address] [place], [place] [phone] [place] (15 min) Moderate 04/08/2018 Patient Education: Patient Medication Summary Completed 04/08/2018 Appointment: Injection 04/07/2018 Patient Education: Patient Medication Summary Completed 04/07/2018 Appointment: Injection 04/06/2018 Patient Education: Patient Medication Summary Completed 04/06/2018 Appointment: Injection 04/05/2018 Appointment: [facility]ez [facility]Ptel[phone] [place] (15 min) Moderate 04/05/2018 Patient Education: [...] today. 04/04/2018 Appointment: El[facility] Cortez [facility]Ptel: [phone] (10 min) Simple 04/04/2018 Patient Education: Patient Medication Summary Completed 04/04/2018 Patient Education: Patient Medication Summary Completed 04/04/2018 Patient Education: Patient Medication Summary Completed 04/04/2018 Care Plan: Referral Order SNOMED-CT : [id number] Pending 04/04/2018 Visit Plan: Dysuria, dizziness, fatigue, [...] pharmacy. 03/24/2018 Appointment: Elen Cortez WPtel: [phone] [facility] (15 min) Moderate 03/24/2018 Patient Education: Patient [...] improve. 03/01/2018 Appointment: [facility]ez [facility]Ptel: [phone] [place] (15 min) Moderate 03/01/2018 Patient [...] spray. 12/24/2017 Appointment: Bridget Velazco WPtel: [phone] [facility] [place] [address] - Annual Wellness Visit 12/24/2017 Patient Education: Patient Medication Summary Completed 12/24/2017 Appointment: Bridget Velazco WPtel: [facility]7 [facility] (15 min) Moderate 11/30/2017 Appointment: Lab [...] improve. 11/18/2017 Appointment: Bridget Velazco WPtel: [facility]1 [facility] (15 min) Moderate 11/18/2017 Patient Education: Patient Medication Summary Completed 11/18/2017 Visit Plan: Sinusitis - Pt has acute infection - pain in face, maxillary region, Pt informed to use decongestant, RX given to patient, sinus rinses also recommended. Call if symptoms do not show improvement. 11/03/2017 Appointment: Bridget Velazco WPtel: [phone] [facility] [place] (15 min) Moderate 11/03/2017 Patient Education: [...] improve. 09/22/2017 Appointment: Bridget Velazco WPtel: [facility] (15 min) Moderate 09/22/2017 Patient Education: Patient Medication Summary Completed 09/22/2017 Visit Plan: Bronchitis - acute case of bronchitis identified. Pt has been given antibiotics, breathing treatments as appropriate, and pt has been instructed to call if symptoms are not improved, or if symptoms acutely worsen. 04/01/2017 Appointment: Elen Cortez WPtel: [facility] (15 min) Moderate 04/01/2017 Patient Education: Patient [...] spray. 03/25/2017 Appointment: Shiela Srivastava WPtel: [phone] [place] (10 min) Simple 03/25/2017 Appointment: Elen Cortez WPtel: [facility] [place] (15 min) Moderate 03/25/2017 Patient Education: [...] surrogate. 12/23/2016 Appointment: Bridget Velazco WPtel: [phone] [facility] - Annual Wellness Visit 12/23/2016 Patient Education: Patient Medication Summary Completed 12/23/2016 Visit Plan: Vertigo-discussed PT for vestibular exercises-patient wants to wait since symptoms are improving-continue anti histamine as directed- meclizine as needed 12/22/2016 Appointment: Shiela Srivastava WPtel: [phone] [facility] (30 min) Complex 12/22/2016 [...] control. 12/08/2016 Appointment: Shiela Srivastava WPtel: [phone] [facility] [place] (30 min) Complex 12/08/2016 Patient Education: Patient Medication Summary Completed 12/08/2016 Patient Education: .Amazing charts Paroxysmal positional vertigo Completed 12/08/2016 Visit Plan: Hypertension - well controlled - [...] months based on previous levels of control. H yperlipidemia - pt has been counseled about appropriate [...] medications. 11/30/2016 Appointment: Elen Cortez WPtel: [facility] [place] (15 min) Moderate 11/30/2016 [...] or concerns. 09/28/2016 Appointment: Bridget Velazco WPtel: [phone] (30 min) Complex 09/28/2016 [...] concerns. 07/06/2016 Appointment: Bridget Velazco WPtel: [phone] [...] improving 06/01/2016 Appointment: Elen Cortez [facility]Ptel: [phone] (15 min) Moderate 06/01/2016 Patient [...] check labs 02/27/2016 Appointment: Bridget Velazco WPtel: [address] [place], [place] [address] (30 min) [facility] 02/27/2016 Patient Education: Patient Medication Summary Completed 02/27/2016 Patient Education: Patient Medication Summary Completed 09/27/2015 Care Plan: SCREENINGMAMMOGRAPHYDIGITAL LOINC : 65761-6 Pending 09/27/2015 Visit Plan: Hypertension - well [...] colonoscopy 09/10/2015 Appointment: Elen Cortez WPtel: [phone] (15 min) Moderate 09/10/2015 Patient [...] Sanchez. 05/14/2015 Appointment: Elen Cortez WPtel: [phone] (15 min) Moderate 05/14/2015 Patient Education: Patient Medication Summary Completed 05/14/2015 Patient Education: Hypertension Completed 05/14/2015 Care Plan: Referral Order SNOMED-CT : [id number] Ordered 05/14/2015 Patient Education: Patient Medication Summary Completed 03/01/2015 Appointment: Nurse Visit 02/28/2015 Patient Education: Patient Medication Summary Completed 02/28/2015 Patient Education: Patient Medication Summary Completed 02/27/2015 Appointment: Nurse Visit 02/26/2015 Patient Education: Patient Medication Summary Completed 02/26/2015 Appointment: Injection 02/25/2015 Patient Education: Patient Medication Summary Completed 02/25/2015 Patient Education: Patient Medication Summary Completed 02/21/2015 Care Plan: URINALYSIS NONAUTO W/O SCOPE LOINC : 45313-0 Ordered 02/21/2015 Visit Plan: Hypertension - well [...] months based on previous levels of control. A rthritis- occasionally uncontrolled symptoms- recommend pt to use topical antiinflammatory as directed for pain control. Use tylenol for break through pain symptoms. 02/11/2015 Appointment: Elen Cortez WPtel: [phone] [place] New Patient 02/11/2015 Patient Education: Patient Medication Summary Completed 02/11/2015 Patient Education: Hypertension Completed 02/11/2015 Referral: Dr. Ming Kessler WPtel: Referral Appointment Requested Referral: Wan Steven Referral Appointment Requested Instructions Comment . Sinusitis - Pt has acute infection [...] directed otherwise. Check labs at regular intervals q 3 months or q 6 months [...] to assure normal liver response to medications. Start cefdinir if you get a fever . UTI - pt with positive urinalysis [...] months based on previous levels of control. appointment with Dr. Cortez on 06/21 at [address] saini about thyroid ultrasound. Ongoing fatigue - will check labs and treat as indicated - pt is to follow up with Dr. Cortez for ongoing, persistent complaints - pt is to notify clinic with any changes, questions, or concerns. Hypertension - well controlled - continue with current medications, continue with no added salt diet. Pt has been encouraged to exercise daily. The pt has been advised to call the office if there are any acute concerns about change in blood pressure readings at home. . Hypertension - well controlled - continue [...] her preferred provider for the colonoscopy . Hypertension - well controlled - continue [...] directed otherwise. Check labs at regular intervals q 3 months or q 6 months based on previous levels of control. . Medicare Exam - today we discussed [...] spray in the nasal steroid allergy spray. take an extra metoprolol if your blood [...] to call for acute concerns. fatigue - ongoing - pt is to continue with Dr. Steven and update clinic after her heart cath. She is to notify clinic with any changes, questions, or concerns. Allergies - chronic - recommended pt to [...] changes, questions, or concerns. . Hypertension - The patient has [...] in the nasal steroid allergy spray. . Vertigo-discussed PT for vestibular exercises-patient wants [...]
--- OUTSIDE RECORDS SUMMARY | 2018-11-10 17:58 | XMS REPORT | CCD ---
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 Role Phone PP Unavailable CCM Unavailable Summary Purpose Interface Exchange Insurance Providers Payer name Policy type / Coverage type Covered alliance party ID Effective Begin Date Effective End Date WPS Medicare Part B Medicare Part B [id number] Unknown [employer] Long Term Life Insurance Medicare Part B [id number] Unknown Family history Mother Diagnosis Age At [...] spouses - 02/11/[address]: 247872405 Never smoker 02/11/2015 Alcohol history Unknown occasionally drinks alcohol 02/11/2015 Allergies, Adverse Reactions, Alerts Substance Reaction Codes Entered Date Inactivated Date Status CODEINE RxNorm: 2670 02/11/2015 No Inactive Date Active allergy Unknown 12/23/2016 No Inactive Date Active ciprofloxacin rash, RxNorm: 92345 02/26/2015 No Inactive Date Active hydrocodone Unknown [...] Start Date Stop Date Status Fill Instructions Maxzide-25mg 37.5 mg-25 mg tablet RxNorm: 55665 1/2 Tablet(s) PO daily 09/06/2018 07/02/2019 Active please dispense generic pravastatin 80 mg tablet RxNorm: 410297 1 Tablet(s) PO daily 08/31/2018 08/25/2019 Active levocetirizine 5 mg tablet RxNorm: 009979 1 Tablet(s) PO daily 08/22/2018 02/17/2019 Active Synthroid 88 mcg tablet RxNorm: 535257 Tablet(s) TAKE 1 TABLET BY MOUTH DAILY 08/08/2018 12/05/2018 Active 03/07/2018 11:21:21 AM Flonase Allergy Relief 50 mcg/actuation nasal spray,suspension RxNorm: 4476632 1 [place] NASAL as needed 08/04/2018 08/04/2018 Inactive cefdinir 300 mg capsule RxNorm: 980389 1 Capsule(s) PO BID 07/20/2018 07/29/2018 Inactive Pyridium 200 mg tablet RxNorm: 2046051 1 Tablet(s) PO TID 07/20/2018 07/24/2018 Inactive meclizine 25 mg tablet RxNorm: 808393 1 Tablet(s) TID as needed 07/14/2018 No Stop Date Active dizziness nystatin 100,000 unit/gram topical cream RxNorm: 169489 1 Gram(s) TOP TID as needed 05/30/2018 No Stop Date Active levocetirizine 5 mg tablet RxNorm: 346809 1 Tablet(s) PO daily 05/30/2018 08/21/2018 Inactive metoprolol succinate ER 50 mg tablet,extended release 24 hr RxNorm: 672892 1 Tablet(s) daily may take 1 extra tab daily if systolic bp elevated 05/03/2018 11/28/2018 Active metoprolol succinate ER 50 mg tablet,extended release 24 hr RxNorm: 400045 Tablet(s) Tablet(s) TAKE 1 TABLET BY MOUTH DAILY 05/03/2018 05/02/2018 Inactive lisinopril 20 mg tablet RxNorm: 154033 TAKE 1 TABLET BY MOUTH TWICE DAILY 04/22/2018 09/18/2018 Active Generic For:*PRINIVIL 20 MG TABLET 04/22/2018 9:57:59 AM levocetirizine 5 mg tablet RxNorm: 960764 1 Tablet(s) PO daily 04/22/2018 04/21/2018 Inactive Singulair 10 mg tablet RxNorm: 244076 1 Tablet(s) PO QHS 04/22/2018 04/21/2018 Inactive Singulair 10 mg tablet RxNorm: 833004 1 Tablet(s) PO QHS 04/22/2018 05/12/2018 Inactive levocetirizine 5 mg tablet RxNorm: 495688 1 Tablet(s) PO daily 04/22/2018 05/21/2018 Inactive ceftriaxone 500 mg solution for injection RxNorm: 9462616 Inj 04/08/2018 04/08/2018 Inactive ceftriaxone 500 mg solution for injection RxNorm: 6276521 Inj 04/07/2018 04/07/2018 Inactive ceftriaxone 500 mg solution for injection RxNorm: 2977969 Inj 04/06/2018 04/06/2018 Inactive ketorolac 60 mg/2 mL intramuscular solution RxNorm: 2794481 Milliliter(s) IM 04/05/2018 04/05/2018 Inactive ceftriaxone 500 mg solution for injection RxNorm: 2266152 Inj 04/05/2018 04/05/2018 Inactive ondansetron 4 mg disintegrating tablet RxNorm: 012599 1 Tablet(s) PO TID as needed nausea 04/04/2018 No Stop Date Active ketorolac 30 mg/mL injection solution RxNorm: 959786 2 Milliliter(s) Inj 04/04/2018 04/04/2018 Inactive ceftriaxone 500 mg solution for injection RxNorm: 6827509 Inj 04/04/2018 04/04/2018 Inactive nystatin 100,000 unit/mL oral suspension RxNorm: 472625 4 Milliliter(s) PO QID 04/01/2018 04/05/2018 Inactive doxycycline hyclate 100 mg tablet RxNorm: 6396116 1 Tablet(s) PO BID 04/01/2018 04/10/2018 Inactive amoxicillin 500 mg capsule RxNorm: 990748 1 Capsule(s) PO TID 03/24/2018 04/02/2018 Inactive prednisone 10 mg tablet RxNorm: 974155 1 Tablet(s) PO UD 6 pills on day 1 and 2 and then decrease by one pill every other day until prescription is done 03/24/2018 05/12/2018 Inactive metoprolol succinate ER 50 mg tablet,extended release 24 hr RxNorm: 169974 Tablet(s) TAKE 1 TABLET BY MOUTH DAILY 03/21/2018 05/02/2018 Inactive PLEASE SEND REFILL REQUESTS ELECTRONICALLY!! Synthroid 88 mcg tablet RxNorm: 701220 TAKE 1 TABLET BY MOUTH DAILY 03/08/2018 08/04/2018 Inactive 03/07/2018 11:21:21 AM pravastatin 80 mg tablet RxNorm: 960954 Tablet(s) 1 Tablet(s) PO daily 03/01/2018 02/23/2019 Active Kenalog 40 mg/mL suspension for injection RxNorm: 2411896 Milliliter(s) Inj 12/24/2017 12/24/2017 Inactive cetirizine 10 mg tablet RxNorm: 4590614 TAKE 1 TABLET BY MOUTH DAILY 12/21/2017 04/19/2018 Inactive Generic For:*ZYRTEC 10 MG TABLET 12/21/2017 10:08:05 AM Synthroid 88 mcg tablet RxNorm: 680646 TAKE 1 TABLET BY MOUTH DAILY 12/07/2017 03/06/2018 Inactive 12/06/2017 11:46:49 AM Lipitor 80 mg tablet RxNorm: 744068 1 Tablet(s) PO daily 11/29/2017 02/28/2018 Inactive pravastatin 80 mg tablet RxNorm: 671609 1 Tablet(s) PO daily 11/29/2017 11/29/2017 Inactive Lipitor 80 mg tablet RxNorm: 103511 1 Tablet(s) PO daily 11/29/2017 11/28/2017 Inactive lisinopril 20 mg tablet RxNorm: 816771 TAKE 1 TABLET BY MOUTH TWICE DAILY 11/23/2017 04/21/2018 Inactive Generic For:*PRINIVIL 20 MG TABLET 11/23/2017 11:29:44 AM Macrobid 100 mg capsule RxNorm: 700416 1 Capsule(s) PO BID 11/19/2017 11/25/2017 Inactive Macrobid 100 mg capsule RxNorm: 471139 1 Capsule(s) PO BID 11/19/2017 11/18/2017 Inactive Lomotil 2.5 mg-0.025 mg tablet RxNorm: 8562176 1 -2 Tablet(s) PO TID as needed 11/19/2017 11/25/2017 Inactive Lomotil 2.5 mg-0.025 mg tablet RxNorm: 9608251 1 -2 Tablet(s) PO TID as needed 11/19/2017 11/18/2017 Inactive Pyridium 200 mg tablet RxNorm: 1486482 1 Tablet(s) PO TID as needed 11/18/2017 11/22/2017 Inactive Augmentin 500 mg-125 mg tablet RxNorm: 475579 1 Tablet(s) PO TID 11/18/2017 11/27/2017 Inactive Keflex 500 mg capsule RxNorm: 556819 1 Capsule(s) PO TID 11/03/2017 11/09/2017 Inactive Denavir 1 % topical cream RxNorm: 537921 1 TOP TID as needed cold sores 11/01/2017 01/29/2018 Inactive Denavir 1 % topical cream RxNorm: 874868 1 TOP TID as needed cold sores 11/01/2017 10/31/2017 Inactive Synthroid 88 mcg tablet RxNorm: 131350 TAKE 1 TABLET BY MOUTH DAILY 09/29/2017 11/27/2017 Inactive 09/29/2017 12:58:07 PM pravastatin 80 mg tablet RxNorm: 588947 1 Tablet(s) PO daily 08/31/2017 08/30/2017 Inactive pravastatin 80 mg tablet RxNorm: 868471 1 Tablet(s) PO daily 08/31/2017 11/28/2017 Inactive Synthroid 88 mcg tablet RxNorm: 893483 TAKE 1 TABLET BY MOUTH DAILY 08/30/2017 09/28/2017 Inactive 08/30/2017 10:53:26 AM metoprolol succinate ER 50 mg tablet,extended release 24 hr RxNorm: 175857 Tablet(s) TAKE 1 TABLET BY MOUTH DAILY 08/17/2017 03/14/2018 Inactive PLEASE SEND REFILL REQUESTS ELECTRONICALLY!! lisinopril 20 mg tablet RxNorm: 718228 TAKE 1 TABLET BY MOUTH TWICE DAILY 06/18/2017 11/14/2017 Inactive Generic For:*PRINIVIL 20 MG TABLET 06/18/2017 1:31:00 PM Synthroid 88 mcg tablet RxNorm: 904347 TAKE 1 TABLET BY MOUTH DAILY 05/24/2017 08/21/2017 Inactive 05/24/2017 2:13:21 PM cetirizine 10 mg tablet RxNorm: 9911043 1 Tablet(s) PO daily 05/17/2017 12/12/2017 Inactive Zithromax Z-Russell 250 mg capsule RxNorm: 365566 1 Capsule(s) PO 04/02/2017 04/05/2017 Inactive Zithromax Z-Russell 250 mg tablet RxNorm: 071417 1 Tablet(s) PO 04/02/2017 04/01/2017 Inactive Zithromax Z-Russell 250 mg capsule RxNorm: 319808 1 Capsule(s) PO 04/02/2017 04/01/2017 Inactive Zithromax Z-Russell 250 mg tablet RxNorm: 423360 1 Tablet(s) PO 04/02/2017 04/06/2017 Inactive Ventolin HFA 90 mcg/actuation aerosol inhaler RxNorm: 998989 2 INH QID as needed - for the first 3 days inhale at least two puffs three times daily, then use as needed for shortness of breath 04/01/2017 04/30/2017 Inactive Keflex 500 mg capsule RxNorm: 283377 1 Capsule(s) PO TID 04/01/2017 04/01/2017 Inactive meclizine 25 mg tablet RxNorm: 401623 Tablet(s) 1 Tablet(s) PO Q6 PRN 03/25/2017 03/24/2017 Inactive dizziness Kenalog 40 mg/mL suspension for injection RxNorm: 9825857 1 Milliliter(s) Inj 03/25/2017 03/25/2017 Inactive meclizine 25 mg tablet RxNorm: 328884 1 Tablet(s) PO Q6 PRN 1 Tablet(s) PO Q6 PRN 03/25/2017 05/12/2018 Inactive dizziness meclizine 25 mg tablet RxNorm: 821998 1 Tablet(s) PO Q6 PRN 02/15/2017 03/24/2017 Inactive dizziness lisinopril 20 mg tablet RxNorm: 091401 1 Tablet(s) PO BID 01/15/2017 06/13/2017 Inactive metoprolol succinate ER 50 mg tablet,extended release 24 hr RxNorm: 359521 TAKE 1 TABLET BY MOUTH DAILY 01/07/2017 08/04/2017 Inactive Generic For:TOPROL XL 50MG TAB 01/07/2017 12:38:23 PM Synthroid 88 mcg tablet RxNorm: 390666 TAKE 1 TABLET BY MOUTH DAILY 12/25/2016 05/23/2017 Inactive 12/25/2016 9:47:08 AM Zithromax Z-Russell 250 mg tablet RxNorm: 279286 Tablet(s) PO UD 12/23/2016 03/24/2017 Inactive meclizine 25 mg tablet RxNorm: 839942 1 Tablet(s) PO Q6 PRN 12/08/2016 12/20/2016 Inactive dizziness Kenalog 40 mg/mL suspension for injection RxNorm: 1274232 Milliliter(s) Inj 12/08/2016 12/08/2016 Inactive meloxicam 15 mg tablet RxNorm: 962977 1 Tablet(s) PO daily 11/30/2016 12/20/2016 Inactive cetirizine 10 mg tablet RxNorm: 1504553 1 Tablet(s) PO daily 10/23/2016 05/16/2017 Inactive pravastatin 40 mg tablet RxNorm: 633321 1 Tablet(s) PO BID 08/20/2016 08/30/2017 Inactive Cancel 80 mg tab lisinopril 20 mg tablet RxNorm: 892781 1 Tablet(s) PO BID 08/12/2016 12/22/2016 Inactive Synthroid 88 mcg tablet RxNorm: 276659 1 Tablet(s) PO TAKE ONE (1) TABLET BY MOUTH DAILY 07/28/2016 12/24/2016 Inactive decrease dose hydralazine 25 mg tablet RxNorm: 432183 1 Tablet(s) PO TID as needed for Systolic blood pressure over 170 07/06/2016 12/20/2016 Inactive lisinopril 20 mg tablet RxNorm: 507183 1 Tablet(s) PO BID to replace your other lisinopril dose 07/06/2016 08/04/2016 Inactive lisinopril 10 mg tablet RxNorm: 145632 TAKE ONE TABLET BY MOUTH TWICE DAILY 06/10/2016 08/11/2016 Inactive Generic For:ZESTRIL 10 MG TABLET 06/09/2016 12:58:50 PM triamcinolone acetonide 0.1 % topical cream RxNorm: 8016319 1 Application TOP TID as needed 06/01/2016 No Stop Date Active nystatin 100,000 unit/gram topical cream RxNorm: 502003 1 Gram(s) TOP TID as needed 06/01/2016 05/29/2018 Inactive metoprolol succinate ER 50 mg tablet,extended release 24 hr RxNorm: 340888 1 Tablet(s) PO daily 05/26/2016 12/21/2016 Inactive cetirizine 10 mg tablet RxNorm: 9771491 1 Tablet(s) PO daily 03/23/2016 10/18/2016 Inactive Synthroid 88 mcg tablet RxNorm: 542915 1 Tablet(s) PO TAKE ONE (1) TABLET BY MOUTH DAILY 03/06/2016 03/07/2018 Inactive Brand name only! Synthroid 88 mcg tablet RxNorm: 056612 1 Tablet(s) PO TAKE ONE (1) TABLET BY MOUTH DAILY 03/04/2016 03/05/2016 Inactive decrease dose cetirizine 10 mg tablet RxNorm: 6334673 1 Tablet(s) PO daily 02/27/2016 03/22/2016 Inactive amoxicillin 500 mg capsule RxNorm: 445701 1 Capsule(s) PO TID 02/27/2016 03/04/2016 Inactive lisinopril 10 mg tablet RxNorm: 112094 TAKE ONE TABLET BY MOUTH TWICE DAILY 02/06/2016 06/04/2016 Inactive Generic For:ZESTRIL 10 MG TABLET 02/06/2016 12:16:38 PM Synthroid 100 mcg tablet RxNorm: 309932 TAKE ONE (1) TABLET BY MOUTH DAILY 01/03/2016 03/03/2016 Inactive 01/03/2016 10:35:14 AM N O T I C E Last quantity doesn't match original quantity lisinopril 10 mg tablet RxNorm: 076287 1 Tablet(s) PO BID 10/04/2015 01/31/2016 Inactive Synthroid 100 mcg tablet RxNorm: 030198 1 Tablet(s) PO daily 10/04/2015 01/02/2016 Inactive metoprolol succinate ER 50 mg tablet,extended release 24 hr RxNorm: 199563 1 Tablet(s) PO daily 10/04/2015 04/30/2016 Inactive Tylenol Arthritis 650 mg tablet,extended release RxNorm: 6839922 2 Tablet(s) PO TID 09/10/2015 No Stop Date Active metoprolol succinate ER 50 mg tablet,extended release 24 hr RxNorm: 758517 1 Tablet(s) PO daily 09/05/2015 10/03/2015 Inactive pravastatin 80 mg tablet RxNorm: 233894 1 Tablet(s) PO QHS 08/30/2015 08/30/2015 Inactive pravastatin 40 mg tablet RxNorm: 526832 1 Tablet(s) PO BID 08/30/2015 08/29/2015 Inactive Cancel 80 mg tab pravastatin 40 mg tablet RxNorm: 054157 1 Tablet(s) PO BID 08/30/2015 08/19/2016 Inactive Cancel 80 mg tab lisinopril 10 mg tablet RxNorm: 627123 1 Tablet(s) PO BID 06/13/2015 08/11/2016 Inactive lisinopril 10 mg tablet RxNorm: 771819 1 Tablet(s) PO BID 06/13/2015 10/03/2015 Inactive Synthroid 100 mcg tablet RxNorm: 324979 1 Tablet(s) PO daily 06/10/2015 10/03/2015 Inactive ceftriaxone 1 gram solution for injection RxNorm: 3122109 Inj 03/01/2015 03/01/2015 Inactive ceftriaxone 1 gram solution for injection RxNorm: 7412886 Inj 02/28/2015 02/28/2015 Inactive ceftriaxone 1 gram solution for injection RxNorm: 4557019 Inj 02/27/2015 02/27/2015 Inactive ceftriaxone 1 gram solution for injection RxNorm: 9181864 Inj 02/26/2015 02/26/2015 Inactive ceftriaxone 1 gram solution for injection RxNorm: 1856044 Inj 02/25/2015 02/25/2015 Inactive phenazopyridine 200 mg tablet RxNorm: 9627345 1 Tablet(s) PO Q8 02/21/2015 02/20/2015 Inactive Cipro 500 mg tablet RxNorm: 013941 1 Tablet(s) PO BID 02/21/2015 02/20/2015 Inactive phenazopyridine 200 mg tablet RxNorm: 3206828 1 Tablet(s) PO Q8 02/21/2015 02/25/2015 Inactive Cipro 500 mg tablet RxNorm: 716003 1 Tablet(s) PO BID 02/21/2015 02/27/2015 Inactive lisinopril 10 mg tablet RxNorm: 734634 1 Tablet(s) PO BID 02/14/2015 06/12/2015 Inactive metoprolol succinate ER 50 mg tablet,extended release 24 hr RxNorm: 816705 3/4 Tablet(s) PO daily 02/11/2015 09/04/2015 Inactive Voltaren 1 % topical gel RxNorm: 192050 2 Gram(s) TOP QID use this on affected joints up to four times daily. 02/11/2015 03/12/2015 Inactive Probiotic oral RxNorm: 6205 oral No Start Date Active aspirin 81 mg tablet RxNorm: 508423 1 Tablet(s) PO daily No Start Date Active Super B-Complex tablet RxNorm: 1 Tablet(s) PO No Start Date Active Super-D3+ oral RxNorm: oral No Start Date Active Prilosec OTC 20 mg tablet,delayed release RxNorm: 806818 2 Tablet(s) PO QAM No Start Date Active Move Free Ultra 40 mg-10 mg-3.3 mg tablet RxNorm: 1 Tablet(s) PO daily No Start Date Active metoprolol tartrate 50 mg tablet RxNorm: 136629 1 Tablet(s) PO daily No Start Date 02/10/2015 Inactive lisinopril 10 mg tablet RxNorm: 058433 1 Tablet(s) PO BID No Start Date 02/13/2015 Inactive pravastatin 80 mg tablet RxNorm: 675199 1 Tablet(s) PO daily No Start Date 08/29/2015 Inactive Flonase Allergy Relief 50 mcg/actuation nasal spray,suspension RxNorm: 4437838 1 [place] NASAL BID No Start Date 05/12/2018 Inactive Synthroid 100 mcg tablet RxNorm: 322437 1 Tablet(s) PO daily No Start Date 06/09/2015 Inactive lisinopril 40 mg tablet RxNorm: 180912 1 Tablet(s) PO BID No Start Date 02/28/2018 Inactive Tylenol Arthritis 650 mg tablet,extended release RxNorm: 5815981 4 Tablet(s) PO daily No Start Date 09/09/2015 Inactive Flonase Allergy Relief 50 mcg/actuation nasal spray,suspension RxNorm: 0627121 1 [place] NASAL as needed No Start Date 08/03/2018 Inactive Medication Administered Medication Codes Instructions Start Date Status ceftriaxone 500 mg solution for injection RxNorm: 2126597 04/08/2018 No longer Active ceftriaxone 500 mg solution for injection RxNorm: 4855544 04/07/2018 No longer Active ceftriaxone 500 mg solution for injection RxNorm: 3775560 04/06/2018 No longer Active ceftriaxone 500 mg solution for injection RxNorm: 8765469 04/05/2018 No longer Active ketorolac 60 mg/2 mL intramuscular solution RxNorm: 0057680 Milliliter 04/05/2018 No longer Active ceftriaxone 500 mg solution for injection RxNorm: 4909186 04/04/2018 No longer Active ketorolac 30 mg/mL injection solution RxNorm: 251882 2Milliliter 04/04/2018 No longer Active Kenalog 40 mg/mL suspension for injection RxNorm: 4602444 Milliliter 12/24/2017 No longer Active Kenalog 40 mg/mL suspension for injection RxNorm: 0638242 1Milliliter 03/25/2017 No longer Active Kenalog 40 mg/mL suspension for injection RxNorm: 7008839 Milliliter 12/08/2016 No longer Active ceftriaxone 1 gram solution for injection RxNorm: 3289865 03/01/2015 No longer Active ceftriaxone 1 gram solution for injection RxNorm: 8338037 02/28/2015 No longer Active ceftriaxone 1 gram solution for injection RxNorm: 8131121 02/27/2015 No longer Active ceftriaxone 1 gram solution for injection RxNorm: 6665969 02/26/2015 No longer Active ceftriaxone 1 gram solution for injection RxNorm: 9284190 02/25/2015 No longer Active Immunizations Vaccine Codes [...] sent to ref lab 07/21/2018 Free T4 Spb271 FREE T4 1.07 ng/dL 04/04/2018 Tsh Ord6 TSH (3rd IS) 1.93 uIU/mL 04/04/2018 Urine Culture Ucult Preliminary NO Growth Day 1 03/28/2018 Urine Culture Ucult Complete NO Growth Day 2 03/28/2018 Urine Culture Ucult Complete >100,000 col/ml aerobic growth sent to ref lab 11/19/2017 B12 Lze888 B12 712.00 pg/ml 09/28/2017 C-Reactive Protein Qnt Crqnt CRP 0.1 mg/dl 09/23/2017 Comp Metabolic Nak114 NA 139 mEq/L 09/23/2017 Comp Metabolic Ruq562 K 4.8 mEq/L 09/23/2017 Comp Metabolic Fqn045 CL 104 mEq/L 09/23/2017 Comp Metabolic Imh681 CO2 28.0 mEq/L 09/23/2017 Comp Metabolic Zur671 ANION GAP 12 09/23/2017 Comp Metabolic Ihx645 GLUCOSE 92 mg/dL 09/23/2017 Comp Metabolic Hgb067 Creat 0.7 mg/dL 09/23/2017 Comp Metabolic Pak142 eGFR 91 ml/min/1.73m2 09/23/2017 Comp Metabolic Fqt473 BUN 11 mg/dL 09/23/2017 Comp Metabolic Sqm429 B/C Ratio 16.4 Ratio 09/23/2017 Comp Metabolic Hid516 CALCIUM 9.0 mg/dL 09/23/2017 Comp Metabolic Vle662 ALK PHOS 76 U/L 09/23/2017 Comp Metabolic Zxh079 AST(SGOT) 24 U/L 09/23/2017 Comp Metabolic Btn853 ALT(SGPT) 21 U/L 09/23/2017 Comp Metabolic Nmv180 BILI T 0.3 mg/dL 09/23/2017 Comp Metabolic Yqs306 ALBUMIN 4.1 g/dL 09/23/2017 Comp Metabolic Vgd142 TPRO 6.2 g/dL 09/23/2017 Comp Metabolic Lup977 GLOB 2.1 g/dL 09/23/2017 Comp Metabolic Pyf468 A/G Ratio 1.9 Ratio 09/23/2017 Comp Metabolic Blc003 Osmo 277 mOsmo 09/23/2017 Sed Rate Ord21 ESR 3 mm/hr 09/22/2017 Vitamin D 25 Oh Peq2906 VITAMIN D, 25 HYDROXY 78.79 ng/mL 09/22/2017 [...] 30.6 pg 09/22/2017 Cbc With Differential Ord2 Casey% 10.5 % 09/22/2017 Cbc With Differential Ord2 [...] 2.37 K/ul 09/22/2017 Cbc With Differential Ord2 Casey ABS# 0.9 K/ul 09/22/2017 Cbc With Differential Ord2 Eos ABS# 0.2 K/ul 09/22/2017 Cbc With Differential Ord2 Baso ABS# 0.0 K/ul 09/22/2017 Free T4 Wgs814 FREE T4 0.99 ng/dL 09/22/2017 %Hba1C Nvb420 % HbA1c 38385- 6 6.0 % 12/10/2016 %Hba1C Lei320 Gluc Ave 126 mg/dL 12/10/2016 Tsh Ord6 hTSH II 0.89 uIU/mL 12/09/2016 Free T4 Ajl629 FREE T4 0.99 ng/dL 12/09/2016 Comp Metabolic Xyh750 NA 138 mEq/L 12/09/2016 Comp Metabolic Iml758 K 5.2 mEq/L 12/09/2016 Comp Metabolic Zbz013 CL 104 mEq/L 12/09/2016 Comp Metabolic Wum573 CO2 29.0 mEq/L 12/09/2016 Comp Metabolic Vvq329 ANION GAP 10 12/09/2016 Comp Metabolic Ghg462 GLUCOSE 135 mg/dL 12/09/2016 Comp Metabolic Ygg691 Creat 0.8 mg/dL 12/09/2016 Comp Metabolic Ngd929 eGFR 79 ml/min/1.73m2 12/09/2016 Comp Metabolic Dop438 BUN 18 mg/dL 12/09/2016 Comp Metabolic Hsh851 B/C Ratio 23.7 Ratio 12/09/2016 Comp Metabolic Oct241 CALCIUM 9.5 mg/dL 12/09/2016 Comp Metabolic Lfu784 ALK PHOS 73 U/L 12/09/2016 Comp Metabolic Wen238 AST(SGOT) 24 U/L 12/09/2016 Comp Metabolic Kox653 ALT(SGPT) 20 U/L 12/09/2016 Comp Metabolic Bdn364 BILI T 0.3 mg/dL 12/09/2016 Comp Metabolic Gbc133 ALBUMIN 4.3 g/dL 12/09/2016 Comp Metabolic Pbz942 TPRO 6.4 g/dL 12/09/2016 Comp Metabolic Kyw444 GLOB 2.1 g/dL 12/09/2016 Comp Metabolic Adt997 A/G Ratio 2.0 Ratio 12/09/2016 Comp Metabolic Xcy448 Osmo 280 mOsmo 12/09/2016 Cbc With Differential [...] 31.3 pg 12/09/2016 Cbc With Differential Ord2 Casey% 6.5 % 12/09/2016 Cbc With Differential Ord2 [...] 1.84 K/ul 12/09/2016 Cbc With Differential Ord2 [place] ABS# 0.6 K/ul 12/09/2016 Cbc With Differential Ord2 Eos ABS# 0.1 K/ul 12/09/2016 Cbc With Differential Ord2 Baso ABS# 0.1 K/ul 12/09/2016 Tsh Ord6 hTSH II 1.19 uIU/mL 09/02/2016 Free T4 Dcq042 FREE T4 0.97 ng/dL 09/02/2016 Comp Metabolic Eft156 NA 137 mEq/L 06/01/2016 Comp Metabolic Brj684 K 4.1 mEq/L 06/01/2016 Comp Metabolic Mrc694 CL 104 mEq/L 06/01/2016 Comp Metabolic Siz035 CO2 25.0 mEq/L 06/01/2016 Comp Metabolic Txj465 ANION GAP 12 06/01/2016 Comp Metabolic Bes278 GLUCOSE 108 mg/dL 06/01/2016 Comp Metabolic Bzh222 Creat 0.8 mg/dL 06/01/2016 Comp Metabolic Dew343 eGFR 80 ml/min/1.73m2 06/01/2016 Comp Metabolic Hcw168 BUN 15 mg/dL 06/01/2016 Comp Metabolic Qkx155 B/C Ratio 20.0 Ratio 06/01/2016 Comp Metabolic Enb019 CALCIUM 9.1 mg/dL 06/01/2016 Comp Metabolic Kzg562 ALK PHOS 89 U/L 06/01/2016 Comp Metabolic Ewn892 AST(SGOT) 25 U/L 06/01/2016 Comp Metabolic Xdm711 ALT(SGPT) 20 U/L 06/01/2016 Comp Metabolic Tjn982 BILI T 0.3 mg/dL 06/01/2016 Comp Metabolic Hbu104 ALBUMIN 4.2 g/dL 06/01/2016 Comp Metabolic Gqy817 TPRO 6.2 g/dL 06/01/2016 Comp Metabolic Mui703 GLOB 2.0 g/dL 06/01/2016 Comp Metabolic Hoi075 A/G Ratio 2.1 Ratio 06/01/2016 Comp Metabolic Qqy602 Osmo 275 mOsmo 06/01/2016 Free T4 Euy463 FREE T4 0.94 ng/dL 06/01/2016 Tsh Ord6 [...] 31.1 pg 06/01/2016 Cbc With Differential Ord2 Casey% 8.4 % 06/01/2016 Cbc With Differential Ord2 [...] 2.96 K/ul 06/01/2016 Cbc With Differential Ord2 Casey ABS# 0.6 K/ul 06/01/2016 Cbc With Differential [...] 31.3 pg 02/27/2016 Cbc With Differential Ord2 Casey% 10.0 % 02/27/2016 Cbc With Differential Ord2 [...] 2.28 K/ul 02/27/2016 Cbc With Differential Ord2 Casey ABS# 0.9 K/ul 02/27/2016 Cbc With Differential Ord2 Eos ABS# 0.3 K/ul 02/27/2016 Cbc With Differential Ord2 Baso ABS# 0.1 K/ul 02/27/2016 Tsh Ord6 hTSH II 0.18 uIU/mL 02/27/2016 Free T4 Pif232 FREE T4 1.17 ng/dL 02/27/2016 Comp Metabolic Dfi668 NA 135 mEq/L 02/27/2016 Comp Metabolic Pqy347 K 5.2 mEq/L 02/27/2016 Comp Metabolic Mmu033 CL 102 mEq/L 02/27/2016 Comp Metabolic Yhh265 CO2 27.0 mEq/L 02/27/2016 Comp Metabolic Kzr623 ANION GAP 11 02/27/2016 Comp Metabolic Lcl442 GLUCOSE 93 mg/dL 02/27/2016 Comp Metabolic Hva733 Creat 0.7 mg/dL 02/27/2016 Comp Metabolic Iut721 eGFR 91 ml/min/1.73m2 02/27/2016 Comp Metabolic Hhr528 BUN 14 mg/dL 02/27/2016 Comp Metabolic Qwq589 B/C Ratio 20.9 Ratio 02/27/2016 Comp Metabolic Oqa395 CALCIUM 9.4 mg/dL 02/27/2016 Comp Metabolic Qhn079 ALK PHOS 100 U/L 02/27/2016 Comp Metabolic Hkc915 AST(SGOT) 23 U/L 02/27/2016 Comp Metabolic Odm983 ALT(SGPT) 24 U/L 02/27/2016 Comp Metabolic Esy611 BILI T 0.2 mg/dL 02/27/2016 Comp Metabolic Hvp322 ALBUMIN 4.3 g/dL 02/27/2016 Comp Metabolic Vhe325 TPRO 6.3 g/dL 02/27/2016 Comp Metabolic Zen432 GLOB 2.1 g/dL 02/27/2016 Comp Metabolic Gbl380 A/G Ratio 2.1 Ratio 02/27/2016 Comp Metabolic Cgn211 Osmo 270 mOsmo 02/27/2016 Free T4 Cuu801 FREE T4 1.03 ng/dL 05/10/2015 Comp Metabolic Dhe515 NA 137 mEq/L 05/10/2015 Comp Metabolic Jtu324 K 4.4 mEq/L 05/10/2015 Comp Metabolic Ekn527 CL 102 mEq/L 05/10/2015 Comp Metabolic Kch519 CO2 28.0 mEq/L 05/10/2015 Comp Metabolic Jcq093 ANION GAP 11 05/10/2015 Comp Metabolic Ohx617 GLUCOSE 108 mg/dL 05/10/2015 Comp Metabolic Muc990 Creat 0.7 mg/dL 05/10/2015 Comp Metabolic Ken696 eGFR 86 ml/min/1.73m2 05/10/2015 Comp Metabolic Zwr594 BUN 13 mg/dL 05/10/2015 Comp Metabolic Xwh196 B/C Ratio 18.3 Ratio 05/10/2015 Comp Metabolic Irv560 CALCIUM 9.4 mg/dL 05/10/2015 Comp Metabolic Rih142 ALK PHOS 94 U/L 05/10/2015 Comp Metabolic Fuj241 AST(SGOT) 22 U/L 05/10/2015 Comp Metabolic Qxt039 ALT(SGPT) 21 U/L 05/10/2015 Comp Metabolic Yhh203 BILI T 0.3 mg/dL 05/10/2015 Comp Metabolic Avr619 ALBUMIN 3.9 g/dL 05/10/2015 Comp Metabolic Iqw030 TPRO 6.1 g/dL 05/10/2015 Comp Metabolic Pxl874 GLOB 2.2 g/dL 05/10/2015 Comp Metabolic Duv431 A/G Ratio 1.7 Ratio 05/10/2015 Comp Metabolic Oat492 Osmo 274 mOsmo 05/10/2015 Tsh Ord6 hTSH [...] 29.4 pg 05/10/2015 Cbc With Differential Ord2 Casey% 9.0 % 05/10/2015 Cbc With Differential Ord2 [...] 2.14 K/ul 05/10/2015 Cbc With Differential Ord2 Casey ABS# 0.5 K/ul 05/10/2015 Cbc With Differential [...] Ord30 C/HDL 3.8 Ratio 05/10/2015 Culture Urine [id number] URINE CULTURE SEE NOTES 02/25/2015 Culture Urine [id number] Continued Results 02/25/2015 Urine Culture Ucult Complete >100,000 col/ml aerobic growth sent to ref lab 02/22/2015 Free T4 [id number] FREE T4 1.16 ng/dL 02/11/2015 Tsh Ord6 [...] distress 07/20/2018 None Full Exam - General 1995 Constitutional general appearance Overall: well nourished 07/20/2018 None Full Exam - General 1995 Eyes conjunctiva/eyelids Overall: conjunctiva clear 07/20/2018 None Full Exam - General 1995 Eyes conjunctiva/eyelids Overall: cornea clear 07/20/2018 None Full Exam - General 1994 Eyes conjunctiva/eyelids Overall: eyelids normal 07/20/2018 None Full Exam - General 1995 Ears/Nose/Throat lips/teeth/gingiva Overall: benign lips 07/20/2018 None Full Exam - General 1995 Ears/Nose/Throat [...] General 1994 Eyes conjunctiva/eyelids Overall: cornea clear 07/13/2018 None Full Exam - General 1994 Eyes conjunctiva/eyelids Overall: eyelids normal 07/13/2018 None Full Exam - General 1994 Ears/Nose/Throat [...] normal 06/08/2018 None Full Exam - General 1994 Ears/Nose/Throat otoscopic exam Overall: external auditory canals clear 06/08/2018 None Full Exam - General 1994 Ears/Nose/Throat otoscopic exam Overall: tympanic membranes clear 06/08/2018 None Full Exam - General 1994 Ears/Nose/Throat lips/teeth/gingiva Overall: benign lips 06/08/2018 None Full Exam - General 1995 [...] clear 05/30/2018 None Full Exam - General 1995 Ears/Nose/Throat otoscopic exam Overall: tympanic membranes clear 05/30/2018 None Full Exam - General 1994 Ears/Nose/Throat lips/teeth/gingiva Overall: benign lips 05/30/2018 None Full Exam - General 1995 Ears/Nose/Throat [...] 05/10/2018 None Full Exam - General 1995 Constitutional general appearance Overall: well developed 04/21/2018 [...] General 1994 Eyes conjunctiva/eyelids Overall: conjunctiva clear 04/21/2018 None Full Exam - General 1995 Ears/Nose/Throat otoscopic exam Overall: external auditory canals clear 04/21/2018 None Full Exam - General 1995 Ears/Nose/Throat lips/teeth/gingiva Overall: benign lips 04/21/2018 None Full Exam - General 1995 Ears/Nose/Throat oral cavity/pharynx/larynx Overall: oral mucosa clear 04/21/2018 None Full Exam - General 1995 Ears/Nose/Throat otoscopic exam Tympanic membrane: air-fluid level [...] time 03/01/2018 None Full Exam - General [facility] Constitutional general appearance Overall: well developed 12/24/2017 None Full Exam - General 1994 Constitutional general appearance Overall: in no acute distress 12/24/2017 None Full Exam - General 1995 Constitutional general appearance Overall: well nourished 12/24/2017 None Full Exam - General 1995 Eyes conjunctiva/eyelids Overall: conjunctiva clear 12/24/2017 None [...] Procedure Codes Date THER/PROPH/DIAG INJ SC/IM CPT-4: 21482 04/08/2018 ROCEPHIN, PER 250 MG CPT- 4: J0696 04/08/2018 THER/PROPH/DIAG INJ SC/IM CPT-4: 59788 04/07/2018 ROCEPHIN, PER 250 MG CPT- 4: J0696 04/07/2018 THER/PROPH/DIAG INJ SC/IM CPT-4: 61273 04/06/2018 ROCEPHIN, PER 250 MG CPT- 4: J0696 04/06/2018 THER/PROPH/DIAG INJ SC/IM CPT-4: 17899 04/05/2018 ROCEPHIN, PER 250 MG CPT- 4: J0696 04/05/2018 KETOROLAC TROMETHAMINE INJ CPT-4: J1885 04/05/2018 THER/PROPH/DIAG INJ SC/IM CPT-4: 74305 04/04/2018 ROCEPHIN, PER 250 MG CPT- 4: J0696 04/04/2018 KETOROLAC TROMETHAMINE INJ CPT-4: J1885 04/04/2018 URINALYSIS NONAUTO W/O SCOPE CPT-4: 20255 03/24/2018 PPPS, SUBSEQ VISIT CPT- 4: G0439 12/24/2017 THER/PROPH/DIAG INJ SC/IM CPT-4: 87121 12/24/2017 TRIAMCINOLONE ACET INJ NOS CPT-4: J3301 12/24/2017 THER/PROPH/DIAG INJ SC/IM CPT-4: 30562 11/18/2017 ROCEPHIN, PER 250 MG CPT- 4: J0696 11/18/2017 PRESCRIP TRANSMIT VIA ERX SY CPT-4: G8553 04/01/2017 TRIAMCINOLONE ACET INJ NOS CPT-4: J3301 03/25/2017 PPPS, SUBSEQ VISIT CPT- 4: G0439 12/23/2016 THER/PROPH/DIAG INJ SC/IM CPT-4: 01016 12/08/2016 TRIAMCINOLONE ACET INJ NOS CPT-4: J3301 12/08/2016 PRESCRIP TRANSMIT VIA ERX SY CPT-4: G8553 12/08/2016 PRESCRIP TRANSMIT VIA ERX SY CPT-4: G8553 11/30/2016 URINALYSIS NONAUTO W/O SCOPE CPT-4: 30581 07/08/2016 PRESCRIP TRANSMIT VIA ERX SY CPT-4: G8553 06/01/2016 PRESCRIP TRANSMIT VIA ERX SY CPT-4: G8553 02/27/2016 THER/PROPH/DIAG INJ SC/IM CPT-4: 94624 03/01/2015 ROCEPHIN, PER 250 MG CPT- 4: J0696 03/01/2015 THER/PROPH/DIAG INJ SC/IM CPT-4: 91664 02/28/2015 ROCEPHIN, PER 250 MG CPT- 4: J0696 02/28/2015 THER/PROPH/DIAG INJ SC/IM CPT-4: 28086 02/27/2015 ROCEPHIN, PER 250 MG CPT- 4: J0696 02/27/2015 THER/PROPH/DIAG INJ SC/IM CPT-4: 75089 02/26/2015 ROCEPHIN, PER 250 MG CPT- 4: J0696 02/26/2015 THER/PROPH/DIAG INJ SC/IM CPT-4: 83779 02/25/2015 ROCEPHIN, PER 250 MG CPT- 4: J0696 02/25/2015 URINALYSIS NONAUTO W/O SCOPE CPT-4: 16246 02/21/2015 Vital Signs Date Vital 09/06/2018 Blood Pressure 1: 146/76 Code: 8480-6 BMI: 27.6 Code: 53932-3 Heart Rate 1: 67 bpm Height: 5'3" SpO2: 96% Weight: 155 lbs 13 oz 07/20/2018 Blood Pressure 1: 140/66 Code: 8480-6 BMI: 28.0 Code: 31677-6 Heart Rate 1: 64 bpm Height: 5'3" SpO2: 96% Weight: 158 lbs 07/13/2018 Blood Pressure 1: 144/60 Code: 8480-6 BMI: 28.0 Code: 72048-2 Heart Rate 1: 66 bpm Height: 5'3" SpO2: 98% Weight: 158 lbs 06/08/2018 Blood Pressure 1: 132/76 Code: 8480-6 BMI: 28.0 Code: 47328-2 Heart Rate 1: 70 bpm Height: 5'3" SpO2: 98% Weight: 158 lbs 05/30/2018 Blood Pressure 1: 136/72 Code: 8480-6 BMI: 28.0 Code: 95352-1 Heart Rate 1: 84 bpm Height: 5'3" Weight: 158 lbs 05/10/2018 Blood Pressure 1: 130/72 Code: 8480-6 BMI: 28.2 Code: 74041-2 Heart Rate 1: 70 bpm Height: 5'3" [...] 1: 134/58 Code: 8480-6 BMI: 27.8 Code: 29381-6 Heart Rate 1: 85 bpm Height: 5'3" SpO2: 96% Weight: 157 lbs 03/24/2018 Blood Pressure 1: 128/82 Code: 8480-6 BMI: 27.8 Code: 97078-2 Heart Rate 1: 84 bpm Height: 5'3" SpO2: 97% Weight: 157 lbs 03/01/2018 Blood Pressure 1: 136/70 Code: 8480-6 BMI: 27.8 Code: 98294-3 Heart Rate 1: 70 bpm Height: 5'3" SpO2: 96% Weight: 157 lbs 12/24/2017 Height: Weight: 11/18/2017 Blood Pressure 1: 164/74 Code: 8480-6 BMI: 27.6 Code: 63869-1 Heart Rate 1: 70 bpm Height: 5'3" SpO2: 96% Weight: 156 lbs 11/03/2017 Blood Pressure 1: 118/72 Code: 8480-6 BMI: 27.6 Code: 08522-0 Heart Rate 1: 82 bpm Height: 5'3" SpO2: 96% Weight: 156 lbs 09/22/2017 Blood Pressure 1: 136/68 Code: 8480-6 BMI: 27.6 Code: 58644-8 Heart Rate 1: 70 bpm Height: 5'3" SpO2: 97% Weight: 156 lbs 04/01/2017 Blood Pressure 1: 144/82 Code: 8480-6 Heart Rate 1: 68 bpm Height: 5'3" SpO2: 97% Weight: 03/25/2017 Blood Pressure 1: 116/70 Code: 8480-6 BMI: 26.7 Code: 50674-3 Heart Rate 1: 67 bpm Height: 5'3" SpO2: 98% Weight: 151 lbs 12/23/2016 BMI: 26.7 Code: 18618-6 Height: 5'3" Weight: 151 lbs 12/22/2016 Blood Pressure 1: 142/60 Code: 8480-6 BMI: 26.7 Code: 41262-5 Heart Rate 1: 67 bpm Height: 5'3" SpO2: 98% Weight: 151 lbs 12/08/2016 Blood Pressure 1: 140/72 Code: 8480-6 Heart Rate 1: 72 bpm Height: 5'3" SpO2: 97% Weight: 11/30/2016 Blood Pressure 1: 128/80 Code: 8480-6 BMI: 26.7 Code: 36817-6 Heart Rate 1: 63 bpm Height: 5'3" SpO2: 96% Weight: 151 lbs 09/28/2016 Blood Pressure 1: 130/80 Code: 8480-6 BMI: 27.1 Code: 55814-9 Heart Rate 1: 80 bpm Height: 5'3" SpO2: 97% Weight: 153 lbs 07/06/2016 Blood Pressure 1: 162/72 Code: 8480-6 BMI: 27.6 Code: 35462-2 Heart Rate 1: 72 bpm Height: 5'3" SpO2: 98% Weight: 156 lbs 06/01/2016 Blood Pressure 1: 122/66 Code: 8480-6 BMI: 27.5 Code: 56890-4 Heart Rate 1: 73 bpm Height: 5'3" SpO2: 98% Weight: 155 lbs 8 oz 02/27/2016 Blood Pressure 1: 126/68 Code: 8480-6 BMI: 26.9 Code: 37793-3 Heart Rate 1: 70 bpm Height: 5'3" SpO2: 98% Weight: 152 lbs 09/10/2015 Blood Pressure 1: 130/70 Code: 8480-6 BMI: 26.9 Code: 42200-2 Heart Rate 1: 72 bpm Height: 5'3" SpO2: 97% Weight: 152 lbs 05/14/2015 Blood Pressure 1: 138/82 Code: 8480-6 BMI: 26.4 Code: 46355-8 Heart Rate 1: 75 bpm Height: 5'3" SpO2: 98% Weight: 149 lbs 02/11/2015 Blood Pressure 1: 128/72 Code: 8480-6 BMI: 25.5 Code: 32031-0 Heart Rate 1: 73 bpm Height: 5'3" [...] data Encounters Encounter Performer Location Codes Date ([id number]) 18881 EST. PATIENT, LEVEL III Diagnosis: Essential (primary) hypertension[ICD10: I10] Diagnosis: Atrophy of thyroid (acquired)[ICD10: E03.4] [facility] CPT-4: 62857 09/06/2018 17677 EST. PATIENT, LEVEL III Diagnosis: Dysuria[ICD10: R30.0] [facility] CPT-4: 05393 07/20/2018 ([id number]) 77472 EST. PATIENT, LEVEL III Diagnosis: Essential (primary) hypertension[ICD10: I10] Diagnosis: Atrophy of thyroid (acquired)[ICD10: E03.4] Elen Cortez MD, [facility] CPT-4: 40139 07/13/2018 55983 EST. PATIENT, LEVEL III Diagnosis: Other fatigue[ICD10: R53.83] Diagnosis: Essential (primary) hypertension[ICD10: I10] Bridget Cortez MD, [facility] CPT-4: 87886 06/08/2018 99484 EST. PATIENT, LEVEL IV Diagnosis: Essential (primary) hypertension[ICD10: I10] Diagnosis: Other fatigue[ICD10: R53.83] Diagnosis: Other allergic rhinitis[ICD10: J30.89] Bridget Cortez MD, [facility] CPT- 4: 64855 05/30/2018 36819 EST. PATIENT, LEVEL IV Diagnosis: Essential (primary) hypertension[ICD10: I10] Diagnosis: Other fatigue[ICD10: R53.83] Bridget Cortez MD, [facility] CPT-4: 84711 05/10/2018 86201 EST. PATIENT, LEVEL IV Diagnosis: Low back pain[ICD10: M54.5] Diagnosis: Essential (primary) hypertension[ICD10: I10] Diagnosis: Other fatigue[ICD10: R53.83] Diagnosis: Other malaise[ICD10: R53.81] Bridget Cortez MD, [facility] CPT-4: 05413 04/21/2018 23449 EST. PATIENT, LEVEL III Diagnosis: Other fatigue[ICD10: R53.83] Diagnosis: Otalgia, right ear[ICD10: H92.01] Bridget Cortez MD, [facility] CPT-4: 70854 04/13/2018 ([id number]) 83191 EST. PATIENT, LEVEL III Diagnosis: Essential (primary) hypertension[ICD10: I10] Diagnosis: Dysuria[ICD10: R30.0] Diagnosis: Nausea[ICD10: R11.0] Diagnosis: Headache[ICD10: R51] Elen Cortez MD, [facility] CPT-4: 89594 04/04/2018 48816 EST. PATIENT, LEVEL III Diagnosis: Other acute sinusitis[ICD10: J01.80] Diagnosis: Dizziness and giddiness[ICD10: R42] Diagnosis: Dysuria[ICD10: R30.0] Diagnosis: Candidal stomatitis[ICD10: B37.0] Diagnosis: Essential (primary) hypertension[ICD10: I10] Diagnosis: Other fatigue[ICD10: R53.83] Diagnosis: Other malaise[ICD10: R53.81] Bridget Cortez MD, [facility] CPT-4: 15527 04/01/2018 ([id number]) 43650 EST. 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 PATIENT, LEVEL IV Diagnosis: Otalgia, right ear[ICD10: H92.01] Diagnosis: Headache[ICD10: R51] Diagnosis: Other fatigue[ICD10: R53.83] Diagnosis: Abnormal findings on diagnostic imaging of other specified body structures[ICD10: R93.89] Elen Cortez MD, [facility] CPT-4: 40923 03/01/2018 76109 EST. PATIENT, LEVEL III Diagnosis: Acute cystitis with hematuria[ICD10: N30.01] Bridget Cortez MD, [facility] CPT-4: 12458 11/18/2017 25070 EST. PATIENT, LEVEL IV Diagnosis: Other acute sinusitis[ICD10: J01.80] Diagnosis: Otalgia, right ear[ICD10: H92.01] Bridget Cortez MD, [facility] CPT-4: 95202 11/03/2017 91580 EST. PATIENT, LEVEL III Diagnosis: Other fatigue[ICD10: R53.83] Diagnosis: Other malaise[ICD10: R53.81] Diagnosis: Pain in left knee[ICD10: M25.562] Diagnosis: Pain in right knee[ICD10: M25.561] Bridget Cortez MD, [facility] CPT-4: 21545 09/22/2017 ([id number]) 30615 EST. PATIENT, LEVEL III Diagnosis: Cough[ICD10: R05] Diagnosis: Acute bronchitis due to other specified organisms[ICD10: J20.8] Elen Cortez MD, [facility] CPT-4: 48112 04/01/2017 ([id number]) 54833 EST. PATIENT, LEVEL III Diagnosis: Otalgia, right ear[ICD10: H92.01] Diagnosis: Other allergic rhinitis[ICD10: J30.89] Shiela Cortez MD, [facility] CPT-4: 85934 03/25/2017 ([id number]) 11141 EST. PATIENT, LEVEL III Diagnosis: Benign paroxysmal vertigo, bilateral[ICD10: H81.13] Shiela Cortez MD, [facility] CPT-4: 34336 12/22/2016 ([id number]) 32751 EST. PATIENT, LEVEL IV Diagnosis: Benign paroxysmal vertigo, bilateral[ICD10: H81.13] Diagnosis: Other allergic rhinitis[ICD10: J30.89] Diagnosis: Hypothyroidism, unspecified[ICD10: E03.9] Shiela Cortez MD, [facility] CPT-4: 14916 12/08/2016 ([id number]) 59995 EST. PATIENT, LEVEL IV Diagnosis: Atrophy of thyroid (acquired)[ICD10: E03.4] Diagnosis: Essential (primary) hypertension[ICD10: I10] Diagnosis: Mixed hyperlipidemia[ICD10: E78.2] Elen Cortez MD, [facility] CPT- 4: 33201 11/30/2016 01926 EST. PATIENT, LEVEL IV Diagnosis: Headache[ICD10: R51] Diagnosis: Other fatigue[ICD10: R53.83] Diagnosis: Dizziness and giddiness[ICD10: R42] Bridget Cortez MD, [facility] CPT- 4: 91869 09/28/2016 54227 EST. PATIENT, LEVEL IV Diagnosis: Essential (primary) hypertension[ICD10: I10] Diagnosis: Headache[ICD10: R51] Bridget Cortez MD, [facility] CPT-4: 01300 07/06/2016 ([id number]) 14997 EST. PATIENT, LEVEL IV Diagnosis: Essential (primary) hypertension[ICD10: I10] Diagnosis: Atrophy of thyroid (acquired)[ICD10: E03.4] Diagnosis: Mixed hyperlipidemia[ICD10: E78.2] Elen Cortez MD, [facility] CPT- 4: 55400 06/01/2016 10691 EST. PATIENT, LEVEL IV Diagnosis: Acute laryngopharyngitis[ICD10: J06.0] Diagnosis: Other allergic rhinitis[ICD10: J30.89] Diagnosis: Other specified hypothyroidism[ICD10: E03.8] Diagnosis: Other fatigue[ICD10: R53.83] Bridget Cortez MD, [facility] CPT-4: 50069 02/27/2016 ([id number]) 62512 EST. PATIENT, LEVEL III Diagnosis: Essential (primary) hypertension[ICD10: I10] Diagnosis: Mixed hyperlipidemia[ICD10: E78.2] Elen Cortez MD, [facility] CPT- 4: 75700 09/10/2015 ([id number]) 30691 EST. PATIENT, LEVEL IV Diagnosis: Essential (primary) hypertension[ICD10: I10] Diagnosis: Hypothyroidism, unspecified[ICD10: E03.9] Diagnosis: Unspecified osteoarthritis, unspecified site[ICD10: M19.90] Elen Cortez MD, [facility] CPT-4: 99136 05/14/2015 ([id number]) OFFICE VISIT, NEW - LEVEL 4 Diagnosis: Essential (primary) hypertension[ICD10: I10] Diagnosis: Hypothyroidism, unspecified[ICD10: E03.9] Diagnosis: Unspecified osteoarthritis, unspecified site[ICD10: M19.90] Elen Cortez MD, [facility] CPT-4: 63897 02/11/2015 Plan of Care Planned Activity Notes [...] of control. 09/06/2018 Appointment: Elen Cortez WPtel: [phone] [facility] (15 min) Moderate 09/06/2018 Patient Education: Patient Medication Summary Completed 09/06/2018 Appointment: Bridget Velazco WPtel: [phone] [facility] (15 min) Moderate 08/09/2018 Visit Plan: UTI - pt with positive urinalysis - culture sent if appropriate. Antibiotic electronically prescribed to pt's pharmacy of choice. Pt to call if symptoms do not improve. 07/20/2018 Appointment: Bridget Velazco WPtel: [phone] [facility] (10 min) Simple 07/20/2018 Patient Education: Patient [...] of control. 07/13/2018 Appointment: Elen Cortez WPtel: [phone] [facility] (30 min) Complex 07/13/2018 Patient Education: Patient [...] at home. 06/08/2018 Appointment: Bridget Velazco WPtel: [phone] [facility] [place] (15 min) Moderate 06/08/2018 Patient Education: Patient [...] allergy spray. 05/30/2018 Appointment: Bridget Velazco WPtel: [facility]5 [facility] (15 min) Moderate 05/30/2018 Patient Education: Patient [...] or concerns. 05/10/2018 Appointment: Bridget Velazco WPtel: [phone] [facility] [place] (15 min) Moderate 05/10/2018 Patient Education: Patient Medication Summary Completed 05/10/2018 Appointment: Elen Cortez WPtel: [phone] [facility] [place] (15 min) Moderate 05/05/2018 Referral: Wan [...] or concerns. 04/21/2018 Appointment: Bridget Velazco WPtel: [facility]5 [facility] (15 min) Moderate 04/21/2018 Patient Education: Patient Medication Summary Completed 04/21/2018 Patient Education: Back Pain Completed 04/21/2018 Appointment: Bridget Velazco WPtel: [facility]5 [facility] [place] (15 min) Moderate 04/14/2018 Care [...] Dr. Saini. 04/13/2018 Appointment: Bridget Velazco WPtel: [facility] [place] (30 min) Complex 04/13/2018 Patient Education: Patient Medication Summary Completed 04/13/2018 Appointment: Nurse Visit 04/08/2018 Appointment: Bridget Velazco WPtel: [facility] [place] (15 min) Moderate 04/08/2018 Patient Education: Patient Medication Summary Completed 04/08/2018 Appointment: Injection 04/07/2018 Patient Education: Patient Medication Summary Completed 04/07/2018 Appointment: Injection 04/06/2018 Patient Education: Patient Medication Summary Completed 04/06/2018 Appointment: Injection 04/05/2018 Appointment: Elen Cortez WPtel: [facility] (15 min) Moderate 04/05/2018 Patient [...] toradol today. 04/04/2018 Appointment: Elen Cortez WPtel: [facility] (10 min) Simple 04/04/2018 Patient Education: Patient Medication Summary Completed 04/04/2018 Patient Education: Patient Medication Summary Completed 04/04/2018 Patient Education: Patient Medication Summary Completed 04/04/2018 Care Plan: Referral Order SNOMED-CT : [id number] Pending 04/04/2018 Visit Plan: Dysuria, dizziness, fatigue, [...] 04/01/2018 Appointment: Bridget Velazco WPtel: [phone] [facility] [place] (15 min) Moderate 04/01/2018 Patient Education: Patient Medication Summary Completed 04/01/2018 Visit Plan: Sinusitis - Pt has acute infection - pain in face, maxillary region, Pt informed to use decongestant, RX given to patient, sinus rinses also recommended. Call if symptoms do not show improvement. Dysuria - rx for antibiotic sent to pharmacy. 03/24/2018 Appointment: [phone] [place] (15 min) Moderate 03/24/2018 Patient Education: [...] 03/01/2018 Appointment: [phone] [place] (15 min) Moderate 03/01/2018 [...] allergy spray. 12/24/2017 Appointment: Bridget Velazco WPtel: [facility] [address] - Annual Wellness Visit 12/24/2017 Patient Education: Patient Medication Summary Completed 12/24/2017 Appointment: Bridget Velazco WPtel: [facility] [address] (15 min) Moderate 11/30/2017 Appointment: Lab [...] not improve. 11/18/2017 Appointment: Bridget Velazco WPtel: [address] [place] [address] (15 min) Moderate 11/18/2017 Patient Education: Patient Medication Summary Completed 11/18/2017 Visit Plan: Sinusitis - Pt has acute infection - pain in face, maxillary region, Pt informed to use decongestant, RX given to patient, sinus rinses also recommended. Call if symptoms do not show improvement. 11/03/2017 Appointment: Bridget Velazco WPtel: [facility] [address] (15 min) Moderate 11/03/2017 Patient Education: [...] not improve. 09/22/2017 Appointment: Bridget Velazco WPtel: [facility]2 [facility]66[facility] (15 min) Moderate 09/22/2017 Patient Education: Patient Medication Summary Completed 09/22/2017 Visit Plan: Bronchitis - acute case of bronchitis identified. Pt has been given antibiotics, breathing treatments as appropriate, and pt has been instructed to call if symptoms are not improved, or if symptoms acutely worsen. 04/01/2017 Appointment: Elen Cortez WPtel: [phone] [facility]6[address] (15 min) Moderate 04/01/2017 Patient [...] Appointment: Shiela Srivastava WPtel: [facility]0 [phone] [place] (10 min) Simple 03/25/2017 Appointment: Elen Cortez WPtel: [facility] [place] (15 min) Moderate 03/25/2017 [...] surrogate. 12/23/2016 Appointment: Bridget Velazco WPtel: [phone] [facility] [facility] - Annual Wellness Visit 12/23/2016 Patient Education: Patient Medication Summary Completed 12/23/2016 Visit Plan: Vertigo-discussed PT for vestibular exercises-patient wants to wait since symptoms are improving-continue anti histamine as directed- meclizine as needed 12/22/2016 Appointment: Shiela Srivastava WPtel: [phone] [facility] (30 min) Complex 12/22/2016 Patient Education: Patient [...] control. 12/08/2016 Appointment: [facility]rivastava [phone] (30 min) Complex 12/08/2016 Patient Education: Patient [...] 11/30/2016 Appointment: [facility]el[phone] (15 min) Moderate 11/30/2016 Patient [...] or concerns. 09/28/2016 Appointment: [phone] (30 min) Complex 09/28/2016 Patient [...] 07/06/2016 Appointment: Bridget Velazco WPtel: [phone] [facility] (15 min) Moderate 07/06/2016 Patient [...] 06/01/2016 Appointment: [facility]el[phone] (15 min) Moderate 06/01/2016 Patient [...] check labs 02/27/2016 Appointment: [phone] (30 min) Complex 02/27/2016 Patient Education: Patient Medication Summary Completed 02/27/2016 Patient Education: Patient Medication Summary Completed 09/27/2015 Care Plan: SCREENINGMAMMOGRAPHYDIGITAL LOINC : 28380-5 Pending 09/27/2015 Visit Plan: Hypertension - well [...] colonoscopy 09/10/2015 Appointment: [facility]el[phone] (15 min) Moderate 09/10/2015 Patient [...] Dr. Sanchez. 05/14/2015 Appointment: Elen Cortez WPtel: [facility] (15 min) Moderate 05/14/2015 Patient Education: Patient Medication Summary Completed 05/14/2015 Patient Education: Hypertension Completed 05/14/2015 Care Plan: Referral Order SNOMED-CT : [id number] Ordered 05/14/2015 Patient Education: Patient Medication Summary Completed 03/01/2015 Appointment: Nurse Visit 02/28/2015 Patient Education: Patient Medication Summary Completed 02/28/2015 Patient Education: Patient Medication Summary Completed 02/27/2015 Appointment: Nurse Visit 02/26/2015 Patient Education: Patient Medication Summary Completed 02/26/2015 Appointment: Injection 02/25/2015 Patient Education: Patient Medication Summary Completed 02/25/2015 Patient Education: Patient Medication Summary Completed 02/21/2015 Care Plan: URINALYSIS NONAUTO W/O SCOPE LOINC : 52210-4 Ordered 02/21/2015 Visit Plan: Hypertension - well [...] pain symptoms. 02/11/2015 Appointment: Elen Cortez WPtel: [facility] [facility] Patient 02/11/2015 Patient Education: [...] nasal steroid allergy spray. . Hypertension - The patient has been [...] at home. Referral to Dr. Kessler for anabell for possible nerve site injections for post- [...]
[2018-11-10 18:01] LABS: ALANINE AMINOTRANSFERASE 20 U/L (0-55); ALKALINE PHOSPHATASE 78 U/L (40-136); BILIRUBIN,TOTAL 0.3 MG/DL (0.1-1.0); BUN/CREATININE RATIO 9; CALCIUM 9.4 MG/DL (8.5-10.1); CARBON DIOXIDE 24 MMOL/L (21-32); CHLORIDE 103 MMOL/L (98-107); CREATININE SERUM 0.76 MG/DL (0.60-1.30); GFR ESTIMATED > 60; GLUCOSE 144 MG/DL (70-105); SODIUM 136 MMOL/L (135-145); TOTAL PROTEIN 6.5 GM/DL (6.4-8.2)
--- OUTSIDE RECORDS SUMMARY | 2018-11-10 18:01 | XMS REPORT | CCD ---
Author Author [facility] Organization [facility] Address [address] [place] [address] Phone Care Team Providers Care Chemistry Manager Name Role Phone PP Unavailable CCM Unavailable Summary Purpose Interface Exchange Insurance Providers Payer name Policy type / Coverage type Covered libertarian ID Effective Begin Date Effective End Date WPS Medicare Part B Medicare Part B [id number] Unknown Citizen Of [place] [employer] [employer] Insurance Medicare Part B [id number] Unknown Family history Mother Diagnosis Age At [...] spouses - 02/11/[address]: 934830080 Never smoker 02/11/2015 Alcohol history Unknown occasionally drinks alcohol 02/11/2015 Allergies, Adverse Reactions, Alerts Substance Reaction Codes Entered Date Inactivated Date Status CODEINE RxNorm: 2670 02/11/2015 No Inactive Date Active allergy Unknown 12/23/2016 No Inactive Date Active ciprofloxacin rash, RxNorm: 88645 02/26/2015 No Inactive Date Active hydrocodone Unknown 02/11/2015 No Inactive Date Active PREDNISONE RxNorm: 8640 03/29/2018 No Inactive Date Active CORTICOSTEROIDS (GLUCOCORTICOIDS) Unknown 08/04/2018 No Inactive Date Active GABAPENTIN Unknown 12/23/2016 No Inactive Date Active SULFA (SULFONAMIDES) Unknown 02/11/2015 No Inactive Date Active Past Medical History Illness Codes Condition Status Onset Date Resolved Date Dysuria ICD-9: 788.1 ICD-10: R30.0 Active 02/20/2015 Unknown 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 Active 06/01/2016 Unknown Essential (primary) hypertension ICD-9: 401.1 ICD-10: I10 Active 04/01/2018 Unknown Other fatigue ICD-9: 780.79 ICD-10: R53.83 [...] Dysuria ICD-9: 788.1 ICD-10: R30.0 02/20/2015 Active 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 06/01/2016 Active Essential (primary) hypertension ICD-9: 401.1 ICD-10: I10 04/01/2018 Active Other fatigue ICD-9: 780.79 ICD-10: R53.83 [...] Fill Instructions pravastatin 80 mg tablet RxNorm: 971469 1 Tablet(s) PO daily 08/31/2018 08/25/2019 Active levocetirizine 5 mg tablet RxNorm: 167175 1 Tablet(s) PO daily 08/22/2018 02/17/2019 Active Synthroid 88 mcg tablet RxNorm: 038743 Tablet(s) TAKE 1 TABLET BY MOUTH DAILY 08/08/2018 12/05/2018 Active 03/07/2018 11:21:21 AM Flonase Allergy Relief 50 mcg/actuation nasal spray,suspension RxNorm: 9517235 1 [place] NASAL as needed 08/04/2018 08/04/2018 Inactive cefdinir 300 mg capsule RxNorm: 252961 1 Capsule(s) PO BID 07/20/2018 07/29/2018 Inactive Pyridium 200 mg tablet RxNorm: 4998389 1 Tablet(s) PO TID 07/20/2018 07/24/2018 Inactive meclizine 25 mg tablet RxNorm: 132348 1 Tablet(s) TID as needed 07/14/2018 No Stop Date Active dizziness nystatin 100,000 unit/gram topical cream RxNorm: 269394 1 Gram(s) TOP TID as needed 05/30/2018 No Stop Date Active levocetirizine 5 mg tablet RxNorm: 824511 1 Tablet(s) PO daily 05/30/2018 08/21/2018 Inactive metoprolol succinate ER 50 mg tablet,extended release 24 hr RxNorm: 042802 1 Tablet(s) daily may take 1 extra tab daily if systolic bp elevated 05/03/2018 11/28/2018 Active metoprolol succinate ER 50 mg tablet,extended release 24 hr RxNorm: 802650 Tablet(s) Tablet(s) TAKE 1 TABLET BY MOUTH DAILY 05/03/2018 05/02/2018 Inactive lisinopril 20 mg tablet RxNorm: 996661 TAKE 1 TABLET BY MOUTH TWICE DAILY 04/22/2018 09/18/2018 Active Generic For:*PRINIVIL 20 MG TABLET 04/22/2018 9:57:59 AM levocetirizine 5 mg tablet RxNorm: 674288 1 Tablet(s) PO daily 04/22/2018 04/21/2018 Inactive Singulair 10 mg tablet RxNorm: 490722 1 Tablet(s) PO QHS 04/22/2018 04/21/2018 Inactive Singulair 10 mg tablet RxNorm: 961033 1 Tablet(s) PO QHS 04/22/2018 05/12/2018 Inactive levocetirizine 5 mg tablet RxNorm: 426464 1 Tablet(s) PO daily 04/22/2018 05/21/2018 Inactive ceftriaxone 500 mg solution for injection RxNorm: 3232968 Inj 04/08/2018 04/08/2018 Inactive ceftriaxone 500 mg solution for injection RxNorm: 8493815 Inj 04/07/2018 04/07/2018 Inactive ceftriaxone 500 mg solution for injection RxNorm: 8961544 Inj 04/06/2018 04/06/2018 Inactive ketorolac 60 mg/2 mL intramuscular solution RxNorm: 2258524 Milliliter(s) IM 04/05/2018 04/05/2018 Inactive ceftriaxone 500 mg solution for injection RxNorm: 2653669 Inj 04/05/2018 04/05/2018 Inactive ondansetron 4 mg disintegrating tablet RxNorm: 047195 1 Tablet(s) PO TID as needed nausea 04/04/2018 No Stop Date Active ketorolac 30 mg/mL injection solution RxNorm: 054246 2 Milliliter(s) Inj 04/04/2018 04/04/2018 Inactive ceftriaxone 500 mg solution for injection RxNorm: 7879148 Inj 04/04/2018 04/04/2018 Inactive nystatin 100,000 unit/mL oral suspension RxNorm: 109723 4 Milliliter(s) PO QID 04/01/2018 04/05/2018 Inactive doxycycline hyclate 100 mg tablet RxNorm: 8129876 1 Tablet(s) PO BID 04/01/2018 04/10/2018 Inactive amoxicillin 500 mg capsule RxNorm: 948128 1 Capsule(s) PO TID 03/24/2018 04/02/2018 Inactive prednisone 10 mg tablet RxNorm: 600604 1 Tablet(s) PO UD 6 pills on day 1 and 2 and then decrease by one pill every other day until prescription is done 03/24/2018 05/12/2018 Inactive metoprolol succinate ER 50 mg tablet,extended release 24 hr RxNorm: 147816 Tablet(s) TAKE 1 TABLET BY MOUTH DAILY 03/21/2018 05/02/2018 Inactive PLEASE SEND REFILL REQUESTS ELECTRONICALLY!! Synthroid 88 mcg tablet RxNorm: 562301 TAKE 1 TABLET BY MOUTH DAILY 03/08/2018 08/04/2018 Inactive 03/07/2018 11:21:21 AM pravastatin 80 mg tablet RxNorm: 356441 Tablet(s) 1 Tablet(s) PO daily 03/01/2018 02/23/2019 Active Kenalog 40 mg/mL suspension for injection RxNorm: 3251058 Milliliter(s) Inj 12/24/2017 12/24/2017 Inactive cetirizine 10 mg tablet RxNorm: 6435588 TAKE 1 TABLET BY MOUTH DAILY 12/21/2017 04/19/2018 Inactive Generic For:*ZYRTEC 10 MG TABLET 12/21/2017 10:08:05 AM Synthroid 88 mcg tablet RxNorm: 460864 TAKE 1 TABLET BY MOUTH DAILY 12/07/2017 03/06/2018 Inactive 12/06/2017 11:46:49 AM Lipitor 80 mg tablet RxNorm: 181724 1 Tablet(s) PO daily 11/29/2017 02/28/2018 Inactive pravastatin 80 mg tablet RxNorm: 493913 1 Tablet(s) PO daily 11/29/2017 11/29/2017 Inactive Lipitor 80 mg tablet RxNorm: 145658 1 Tablet(s) PO daily 11/29/2017 11/28/2017 Inactive lisinopril 20 mg tablet RxNorm: 884338 TAKE 1 TABLET BY MOUTH TWICE DAILY 11/23/2017 04/21/2018 Inactive Generic For:*PRINIVIL 20 MG TABLET 11/23/2017 11:29:44 AM Macrobid 100 mg capsule RxNorm: 942268 1 Capsule(s) PO BID 11/19/2017 11/25/2017 Inactive Macrobid 100 mg capsule RxNorm: 759726 1 Capsule(s) PO BID 11/19/2017 11/18/2017 Inactive Lomotil 2.5 mg-0.025 mg tablet RxNorm: 0077110 1 -2 Tablet(s) PO TID as needed 11/19/2017 11/25/2017 Inactive Lomotil 2.5 mg-0.025 mg tablet RxNorm: 2068609 1 -2 Tablet(s) PO TID as needed 11/19/2017 11/18/2017 Inactive Pyridium 200 mg tablet RxNorm: 0570374 1 Tablet(s) PO TID as needed 11/18/2017 11/22/2017 Inactive Augmentin 500 mg-125 mg tablet RxNorm: 364407 1 Tablet(s) PO TID 11/18/2017 11/27/2017 Inactive Keflex 500 mg capsule RxNorm: 390622 1 Capsule(s) PO TID 11/03/2017 11/09/2017 Inactive Denavir 1 % topical cream RxNorm: 861152 1 TOP TID as needed cold sores 11/01/2017 01/29/2018 Inactive Denavir 1 % topical cream RxNorm: 231303 1 TOP TID as needed cold sores 11/01/2017 10/31/2017 Inactive Synthroid 88 mcg tablet RxNorm: 688898 TAKE 1 TABLET BY MOUTH DAILY 09/29/2017 11/27/2017 Inactive 09/29/2017 12:58:07 PM pravastatin 80 mg tablet RxNorm: 857226 1 Tablet(s) PO daily 08/31/2017 08/30/2017 Inactive pravastatin 80 mg tablet RxNorm: 259758 1 Tablet(s) PO daily 08/31/2017 11/28/2017 Inactive Synthroid 88 mcg tablet RxNorm: 994103 TAKE 1 TABLET BY MOUTH DAILY 08/30/2017 09/28/2017 Inactive 08/30/2017 10:53:26 AM metoprolol succinate ER 50 mg tablet,extended release 24 hr RxNorm: 471601 Tablet(s) TAKE 1 TABLET BY MOUTH DAILY 08/17/2017 03/14/2018 Inactive PLEASE SEND REFILL REQUESTS ELECTRONICALLY!! lisinopril 20 mg tablet RxNorm: 900211 TAKE 1 TABLET BY MOUTH TWICE DAILY 06/18/2017 11/14/2017 Inactive Generic For:*PRINIVIL 20 MG TABLET 06/18/2017 1:31:00 PM Synthroid 88 mcg tablet RxNorm: 108122 TAKE 1 TABLET BY MOUTH DAILY 05/24/2017 08/21/2017 Inactive 05/24/2017 2:13:21 PM cetirizine 10 mg tablet RxNorm: 0775428 1 Tablet(s) PO daily 05/17/2017 12/12/2017 Inactive Zithromax Z-Russell 250 mg capsule RxNorm: 760012 1 Capsule(s) PO 04/02/2017 04/05/2017 Inactive Zithromax Z-Russell 250 mg tablet RxNorm: 889500 1 Tablet(s) PO 04/02/2017 04/01/2017 Inactive Zithromax Z-Russell 250 mg capsule RxNorm: 717520 1 Capsule(s) PO 04/02/2017 04/01/2017 Inactive Zithromax Z-Russell 250 mg tablet RxNorm: 244762 1 Tablet(s) PO 04/02/2017 04/06/2017 Inactive Ventolin HFA 90 mcg/actuation aerosol inhaler RxNorm: 948802 2 INH QID as needed - for the first 3 days inhale at least two puffs three times daily, then use as needed for shortness of breath 04/01/2017 04/30/2017 Inactive Keflex 500 mg capsule RxNorm: 072799 1 Capsule(s) PO TID 04/01/2017 04/01/2017 Inactive meclizine 25 mg tablet RxNorm: 087503 Tablet(s) 1 Tablet(s) PO Q6 PRN 03/25/2017 03/24/2017 Inactive dizziness Kenalog 40 mg/mL suspension for injection RxNorm: 3168479 1 Milliliter(s) Inj 03/25/2017 03/25/2017 Inactive meclizine 25 mg tablet RxNorm: 529055 1 Tablet(s) PO Q6 PRN 1 Tablet(s) PO Q6 PRN 03/25/2017 05/12/2018 Inactive dizziness meclizine 25 mg tablet RxNorm: 618457 1 Tablet(s) PO Q6 PRN 02/15/2017 03/24/2017 Inactive dizziness lisinopril 20 mg tablet RxNorm: 392577 1 Tablet(s) PO BID 01/15/2017 06/13/2017 Inactive metoprolol succinate ER 50 mg tablet,extended release 24 hr RxNorm: 610138 TAKE 1 TABLET BY MOUTH DAILY 01/07/2017 08/04/2017 Inactive Generic For:TOPROL XL 50MG TAB 01/07/2017 12:38:23 PM Synthroid 88 mcg tablet RxNorm: 449293 TAKE 1 TABLET BY MOUTH DAILY 12/25/2016 05/23/2017 Inactive 12/25/2016 9:47:08 AM Zithromax Z-Russell 250 mg tablet RxNorm: 398516 Tablet(s) PO UD 12/23/2016 03/24/2017 Inactive meclizine 25 mg tablet RxNorm: 382832 1 Tablet(s) PO Q6 PRN 12/08/2016 12/20/2016 Inactive dizziness Kenalog 40 mg/mL suspension for injection RxNorm: 2509792 Milliliter(s) Inj 12/08/2016 12/08/2016 Inactive meloxicam 15 mg tablet RxNorm: 313694 1 Tablet(s) PO daily 11/30/2016 12/20/2016 Inactive cetirizine 10 mg tablet RxNorm: 8249987 1 Tablet(s) PO daily 10/23/2016 05/16/2017 Inactive pravastatin 40 mg tablet RxNorm: 137571 1 Tablet(s) PO BID 08/20/2016 08/30/2017 Inactive Cancel 80 mg tab lisinopril 20 mg tablet RxNorm: 453689 1 Tablet(s) PO BID 08/12/2016 12/22/2016 Inactive Synthroid 88 mcg tablet RxNorm: 837111 1 Tablet(s) PO TAKE ONE (1) TABLET BY MOUTH DAILY 07/28/2016 12/24/2016 Inactive decrease dose hydralazine 25 mg tablet RxNorm: 355697 1 Tablet(s) PO TID as needed for Systolic blood pressure over 170 07/06/2016 12/20/2016 Inactive lisinopril 20 mg tablet RxNorm: 257606 1 Tablet(s) PO BID to replace your other lisinopril dose 07/06/2016 08/04/2016 Inactive lisinopril 10 mg tablet RxNorm: 706432 TAKE ONE TABLET BY MOUTH TWICE DAILY 06/10/2016 08/11/2016 Inactive Generic For:ZESTRIL 10 MG TABLET 06/09/2016 12:58:50 PM triamcinolone acetonide 0.1 % topical cream RxNorm: 9860411 1 Application TOP TID as needed 06/01/2016 No Stop Date Active nystatin 100,000 unit/gram topical cream RxNorm: 763957 1 Gram(s) TOP TID as needed 06/01/2016 05/29/2018 Inactive metoprolol succinate ER 50 mg tablet,extended release 24 hr RxNorm: 410453 1 Tablet(s) PO daily 05/26/2016 12/21/2016 Inactive cetirizine 10 mg tablet RxNorm: 8703539 1 Tablet(s) PO daily 03/23/2016 10/18/2016 Inactive Synthroid 88 mcg tablet RxNorm: 970856 1 Tablet(s) PO TAKE ONE (1) TABLET BY MOUTH DAILY 03/06/2016 03/07/2018 Inactive Brand name only! Synthroid 88 mcg tablet RxNorm: 421026 1 Tablet(s) PO TAKE ONE (1) TABLET BY MOUTH DAILY 03/04/2016 03/05/2016 Inactive decrease dose cetirizine 10 mg tablet RxNorm: 0783881 1 Tablet(s) PO daily 02/27/2016 03/22/2016 Inactive amoxicillin 500 mg capsule RxNorm: 160754 1 Capsule(s) PO TID 02/27/2016 03/04/2016 Inactive lisinopril 10 mg tablet RxNorm: 519411 TAKE ONE TABLET BY MOUTH TWICE DAILY 02/06/2016 06/04/2016 Inactive Generic For:ZESTRIL 10 MG TABLET 02/06/2016 12:16:38 PM Synthroid 100 mcg tablet RxNorm: 043927 TAKE ONE (1) TABLET BY MOUTH DAILY 01/03/2016 03/03/2016 Inactive 01/03/2016 10:35:14 AM N O T I C E Last quantity doesn't match original quantity lisinopril 10 mg tablet RxNorm: 203488 1 Tablet(s) PO BID 10/04/2015 01/31/2016 Inactive Synthroid 100 mcg tablet RxNorm: 900451 1 Tablet(s) PO daily 10/04/2015 01/02/2016 Inactive metoprolol succinate ER 50 mg tablet,extended release 24 hr RxNorm: 873701 1 Tablet(s) PO daily 10/04/2015 04/30/2016 Inactive Tylenol Arthritis 650 mg tablet,extended release RxNorm: 7227372 2 Tablet(s) PO TID 09/10/2015 No Stop Date Active metoprolol succinate ER 50 mg tablet,extended release 24 hr RxNorm: 138286 1 Tablet(s) PO daily 09/05/2015 10/03/2015 Inactive pravastatin 80 mg tablet RxNorm: 441178 1 Tablet(s) PO QHS 08/30/2015 08/30/2015 Inactive pravastatin 40 mg tablet RxNorm: 775361 1 Tablet(s) PO BID 08/30/2015 08/29/2015 Inactive Cancel 80 mg tab pravastatin 40 mg tablet RxNorm: 662724 1 Tablet(s) PO BID 08/30/2015 08/19/2016 Inactive Cancel 80 mg tab lisinopril 10 mg tablet RxNorm: 448454 1 Tablet(s) PO BID 06/13/2015 08/11/2016 Inactive lisinopril 10 mg tablet RxNorm: 349143 1 Tablet(s) PO BID 06/13/2015 10/03/2015 Inactive Synthroid 100 mcg tablet RxNorm: 703782 1 Tablet(s) PO daily 06/10/2015 10/03/2015 Inactive ceftriaxone 1 gram solution for injection RxNorm: 0562104 Inj 03/01/2015 03/01/2015 Inactive ceftriaxone 1 gram solution for injection RxNorm: 5208235 Inj 02/28/2015 02/28/2015 Inactive ceftriaxone 1 gram solution for injection RxNorm: 5917253 Inj 02/27/2015 02/27/2015 Inactive ceftriaxone 1 gram solution for injection RxNorm: 5248716 Inj 02/26/2015 02/26/2015 Inactive ceftriaxone 1 gram solution for injection RxNorm: 3523603 Inj 02/25/2015 02/25/2015 Inactive phenazopyridine 200 mg tablet RxNorm: 5293349 1 Tablet(s) PO Q8 02/21/2015 02/20/2015 Inactive Cipro 500 mg tablet RxNorm: 282166 1 Tablet(s) PO BID 02/21/2015 02/20/2015 Inactive phenazopyridine 200 mg tablet RxNorm: 4179763 1 Tablet(s) PO Q8 02/21/2015 02/25/2015 Inactive Cipro 500 mg tablet RxNorm: 123332 1 Tablet(s) PO BID 02/21/2015 02/27/2015 Inactive lisinopril 10 mg tablet RxNorm: 272873 1 Tablet(s) PO BID 02/14/2015 06/12/2015 Inactive metoprolol succinate ER 50 mg tablet,extended release 24 hr RxNorm: 414268 3/4 Tablet(s) PO daily 02/11/2015 09/04/2015 Inactive Voltaren 1 % topical gel RxNorm: 551154 2 Gram(s) TOP QID use this on affected joints up to four times daily. 02/11/2015 03/12/2015 Inactive Probiotic oral RxNorm: 6205 oral No Start Date Active aspirin 81 mg tablet RxNorm: 333560 1 Tablet(s) PO daily No Start Date Active Super B-Complex tablet RxNorm: 1 Tablet(s) PO No Start Date Active Super-D3+ oral RxNorm: oral No Start Date Active Prilosec OTC 20 mg tablet,delayed release RxNorm: 668012 2 Tablet(s) PO QAM No Start Date Active Move Free Ultra 40 mg-10 mg-3.3 mg tablet RxNorm: 1 Tablet(s) PO daily No Start Date Active metoprolol tartrate 50 mg tablet RxNorm: 266661 1 Tablet(s) PO daily No Start Date 02/10/2015 Inactive lisinopril 10 mg tablet RxNorm: 129898 1 Tablet(s) PO BID No Start Date 02/13/2015 Inactive pravastatin 80 mg tablet RxNorm: 716553 1 Tablet(s) PO daily No Start Date 08/29/2015 Inactive Flonase Allergy Relief 50 mcg/actuation nasal spray,suspension RxNorm: 1162755 1 [place] NASAL BID No Start Date 05/12/2018 Inactive Synthroid 100 mcg tablet RxNorm: 201532 1 Tablet(s) PO daily No Start Date 06/09/2015 Inactive lisinopril 40 mg tablet RxNorm: 731175 1 Tablet(s) PO BID No Start Date 02/28/2018 Inactive Tylenol Arthritis 650 mg tablet,extended release RxNorm: 1723153 4 Tablet(s) PO daily No Start Date 09/09/2015 Inactive Flonase Allergy Relief 50 mcg/actuation nasal spray,suspension RxNorm: 6358352 1 [place] NASAL as needed No Start Date 08/03/2018 Inactive Medication Administered Medication Codes Instructions Start Date Status ceftriaxone 500 mg solution for injection RxNorm: 1501523 04/08/2018 No longer Active ceftriaxone 500 mg solution for injection RxNorm: 9149595 04/07/2018 No longer Active ceftriaxone 500 mg solution for injection RxNorm: 8544671 04/06/2018 No longer Active ceftriaxone 500 mg solution for injection RxNorm: 5773400 04/05/2018 No longer Active ketorolac 60 mg/2 mL intramuscular solution RxNorm: 7320695 Milliliter 04/05/2018 No longer Active ceftriaxone 500 mg solution for injection RxNorm: 9678872 04/04/2018 No longer Active ketorolac 30 mg/mL injection solution RxNorm: 624338 2Milliliter 04/04/2018 No longer Active Kenalog 40 mg/mL suspension for injection RxNorm: 2642543 Milliliter 12/24/2017 No longer Active Kenalog 40 mg/mL suspension for injection RxNorm: 1035486 1Milliliter 03/25/2017 No longer Active Kenalog 40 mg/mL suspension for injection RxNorm: 8235658 Milliliter 12/08/2016 No longer Active ceftriaxone 1 gram solution for injection RxNorm: 0381560 03/01/2015 No longer Active ceftriaxone 1 gram solution for injection RxNorm: 8644177 02/28/2015 No longer Active ceftriaxone 1 gram solution for injection RxNorm: 8276074 02/27/2015 No longer Active ceftriaxone 1 gram solution for injection RxNorm: 6281079 02/26/2015 No longer Active ceftriaxone 1 gram solution for injection RxNorm: 1610399 02/25/2015 No longer Active Immunizations Vaccine Codes Date Status Influenza CVX: 141 01/18/2018 completed Influenza CVX: 141 03/15/2017 completed Influenza CVX: 141 03/18/2016 completed Influenza CVX: 141 02/11/2015 completed Assessments Condition Codes Effective Dates Dysuria ICD-10: R30.0 ICD-9: 788.1 07/20/2018 Essential (primary) hypertension ICD-10: I10 ICD-9: 401.1 07/13/2018 Atrophy of thyroid (acquired) ICD-10: E03.4 ICD-9: 244.8 07/13/2018 Other fatigue ICD-10: R53.83 ICD-9: 780.79 06/08/2018 [...] Reason For Visit Effective Dates Notes dysuria 07/20/2018 fatigue 07/13/2018 fatigue 06/08/2018 fatigue [...] sent to ref lab 07/21/2018 Free T4 Xea388 FREE T4 1.07 ng/dL 04/04/2018 Tsh Ord6 TSH (3rd IS) 1.93 uIU/mL 04/04/2018 Urine Culture Ucult Preliminary NO Growth Day 1 03/28/2018 Urine Culture Ucult Complete NO Growth Day 2 03/28/2018 Urine Culture Ucult Complete >100,000 col/ml aerobic growth sent to ref lab 11/19/2017 B12 Jtw828 B12 712.00 pg/ml 09/28/2017 C-Reactive Protein Qnt Crqnt CRP 0.1 mg/dl 09/23/2017 Comp Metabolic Eod767 NA 139 mEq/L 09/23/2017 Comp Metabolic Onm309 K 4.8 mEq/L 09/23/2017 Comp Metabolic Kif918 CL 104 mEq/L 09/23/2017 Comp Metabolic Hre141 CO2 28.0 mEq/L 09/23/2017 Comp Metabolic Hcr997 ANION GAP 12 09/23/2017 Comp Metabolic Bpy406 GLUCOSE 92 mg/dL 09/23/2017 Comp Metabolic Fle383 Creat 0.7 mg/dL 09/23/2017 Comp Metabolic Zsj401 eGFR 91 ml/min/1.73m2 09/23/2017 Comp Metabolic Zvh880 BUN 11 mg/dL 09/23/2017 Comp Metabolic Tdq028 B/C Ratio 16.4 Ratio 09/23/2017 Comp Metabolic Gko385 CALCIUM 9.0 mg/dL 09/23/2017 Comp Metabolic Sqt062 ALK PHOS 76 U/L 09/23/2017 Comp Metabolic Zik319 AST(SGOT) 24 U/L 09/23/2017 Comp Metabolic Yyt425 ALT(SGPT) 21 U/L 09/23/2017 Comp Metabolic Xfv081 BILI T 0.3 mg/dL 09/23/2017 Comp Metabolic Lyg219 ALBUMIN 4.1 g/dL 09/23/2017 Comp Metabolic Xez987 TPRO 6.2 g/dL 09/23/2017 Comp Metabolic Xwe633 GLOB 2.1 g/dL 09/23/2017 Comp Metabolic Psl345 A/G Ratio 1.9 Ratio 09/23/2017 Comp Metabolic Nvg731 Osmo 277 mOsmo 09/23/2017 Sed Rate Ord21 ESR 3 mm/hr 09/22/2017 Vitamin D 25 Oh Zta9387 VITAMIN D, 25 HYDROXY 78.79 ng/mL 09/22/2017 [...] 30.6 pg 09/22/2017 Cbc With Differential Ord2 [place]% 10.5 % 09/22/2017 Cbc With Differential Ord2 [...] 2.37 K/ul 09/22/2017 Cbc With Differential Ord2 [place] ABS# 0.9 K/ul 09/22/2017 Cbc With Differential Ord2 Eos ABS# 0.2 K/ul 09/22/2017 Cbc With Differential Ord2 Baso ABS# 0.0 K/ul 09/22/2017 Free T4 Flo257 FREE T4 0.99 ng/dL 09/22/2017 %Hba1C Kcs577 % HbA1c 72544- 6 6.0 % 12/10/2016 %Hba1C Uyn274 Gluc Ave 126 mg/dL 12/10/2016 Tsh Ord6 hTSH II 0.89 uIU/mL 12/09/2016 Free T4 Dgj813 FREE T4 0.99 ng/dL 12/09/2016 Comp Metabolic Xus706 NA 138 mEq/L 12/09/2016 Comp Metabolic Bqh432 K 5.2 mEq/L 12/09/2016 Comp Metabolic Sos219 CL 104 mEq/L 12/09/2016 Comp Metabolic Rsm338 CO2 29.0 mEq/L 12/09/2016 Comp Metabolic Com903 ANION GAP 10 12/09/2016 Comp Metabolic Pkx241 GLUCOSE 135 mg/dL 12/09/2016 Comp Metabolic Nlx843 Creat 0.8 mg/dL 12/09/2016 Comp Metabolic Slh470 eGFR 79 ml/min/1.73m2 12/09/2016 Comp Metabolic Qfq955 BUN 18 mg/dL 12/09/2016 Comp Metabolic Awe766 B/C Ratio 23.7 Ratio 12/09/2016 Comp Metabolic Ttu480 CALCIUM 9.5 mg/dL 12/09/2016 Comp Metabolic Tey981 ALK PHOS 73 U/L 12/09/2016 Comp Metabolic Tsy652 AST(SGOT) 24 U/L 12/09/2016 Comp Metabolic Wuo339 ALT(SGPT) 20 U/L 12/09/2016 Comp Metabolic Zky161 BILI T 0.3 mg/dL 12/09/2016 Comp Metabolic Klz762 ALBUMIN 4.3 g/dL 12/09/2016 Comp Metabolic Ykb451 TPRO 6.4 g/dL 12/09/2016 Comp Metabolic Oji632 GLOB 2.1 g/dL 12/09/2016 Comp Metabolic Jqy201 A/G Ratio 2.0 Ratio 12/09/2016 Comp Metabolic Thh477 Osmo 280 mOsmo 12/09/2016 Cbc With Differential [...] 31.3 pg 12/09/2016 Cbc With Differential Ord2 [place]% 6.5 % 12/09/2016 Cbc With Differential Ord2 [...] 1.84 K/ul 12/09/2016 Cbc With Differential Ord2 [place] ABS# 0.6 K/ul 12/09/2016 Cbc With Differential Ord2 Eos ABS# 0.1 K/ul 12/09/2016 Cbc With Differential Ord2 Baso ABS# 0.1 K/ul 12/09/2016 Tsh Ord6 hTSH II 1.19 uIU/mL 09/02/2016 Free T4 Qfw022 FREE T4 0.97 ng/dL 09/02/2016 Comp Metabolic Arc912 NA 137 mEq/L 06/01/2016 Comp Metabolic Vvy190 K 4.1 mEq/L 06/01/2016 Comp Metabolic Fvo365 CL 104 mEq/L 06/01/2016 Comp Metabolic Txb487 CO2 25.0 mEq/L 06/01/2016 Comp Metabolic Ffs786 ANION GAP 12 06/01/2016 Comp Metabolic Eud875 GLUCOSE 108 mg/dL 06/01/2016 Comp Metabolic Qjm640 Creat 0.8 mg/dL 06/01/2016 Comp Metabolic Buq160 eGFR 80 ml/min/1.73m2 06/01/2016 Comp Metabolic Foc279 BUN 15 mg/dL 06/01/2016 Comp Metabolic Gbn449 B/C Ratio 20.0 Ratio 06/01/2016 Comp Metabolic Dzq614 CALCIUM 9.1 mg/dL 06/01/2016 Comp Metabolic Kyb225 ALK PHOS 89 U/L 06/01/2016 Comp Metabolic Gyh468 AST(SGOT) 25 U/L 06/01/2016 Comp Metabolic Atg654 ALT(SGPT) 20 U/L 06/01/2016 Comp Metabolic Zkq581 BILI T 0.3 mg/dL 06/01/2016 Comp Metabolic Qth284 ALBUMIN 4.2 g/dL 06/01/2016 Comp Metabolic Mnf110 TPRO 6.2 g/dL 06/01/2016 Comp Metabolic Mmg810 GLOB 2.0 g/dL 06/01/2016 Comp Metabolic Obt099 A/G Ratio 2.1 Ratio 06/01/2016 Comp Metabolic Yju275 Osmo 275 mOsmo 06/01/2016 Free T4 Jss559 FREE T4 0.94 ng/dL 06/01/2016 Tsh Ord6 [...] 31.1 pg 06/01/2016 Cbc With Differential Ord2 [place]% 8.4 % 06/01/2016 Cbc With Differential Ord2 [...] 2.96 K/ul 06/01/2016 Cbc With Differential Ord2 [place] ABS# 0.6 K/ul 06/01/2016 Cbc With Differential [...] 31.3 pg 02/27/2016 Cbc With Differential Ord2 [place]% 10.0 % 02/27/2016 Cbc With Differential Ord2 [...] 2.28 K/ul 02/27/2016 Cbc With Differential Ord2 [place] ABS# 0.9 K/ul 02/27/2016 Cbc With Differential Ord2 Eos ABS# 0.3 K/ul 02/27/2016 Cbc With Differential Ord2 Baso ABS# 0.1 K/ul 02/27/2016 Tsh Ord6 hTSH II 0.18 uIU/mL 02/27/2016 Free T4 Iky581 FREE T4 1.17 ng/dL 02/27/2016 Comp Metabolic Sto242 NA 135 mEq/L 02/27/2016 Comp Metabolic Hoo459 K 5.2 mEq/L 02/27/2016 Comp Metabolic Pym307 CL 102 mEq/L 02/27/2016 Comp Metabolic Oyj354 CO2 27.0 mEq/L 02/27/2016 Comp Metabolic Zcl200 ANION GAP 11 02/27/2016 Comp Metabolic Tan710 GLUCOSE 93 mg/dL 02/27/2016 Comp Metabolic Udc460 Creat 0.7 mg/dL 02/27/2016 Comp Metabolic Svg426 eGFR 91 ml/min/1.73m2 02/27/2016 Comp Metabolic Rsn724 BUN 14 mg/dL 02/27/2016 Comp Metabolic Qpe659 B/C Ratio 20.9 Ratio 02/27/2016 Comp Metabolic Kss141 CALCIUM 9.4 mg/dL 02/27/2016 Comp Metabolic Pxr588 ALK PHOS 100 U/L 02/27/2016 Comp Metabolic Ipn411 AST(SGOT) 23 U/L 02/27/2016 Comp Metabolic Jyd509 ALT(SGPT) 24 U/L 02/27/2016 Comp Metabolic Cyz043 BILI T 0.2 mg/dL 02/27/2016 Comp Metabolic Jyj381 ALBUMIN 4.3 g/dL 02/27/2016 Comp Metabolic Kyf497 TPRO 6.3 g/dL 02/27/2016 Comp Metabolic Nym820 GLOB 2.1 g/dL 02/27/2016 Comp Metabolic Fdw512 A/G Ratio 2.1 Ratio 02/27/2016 Comp Metabolic Qri670 Osmo 270 mOsmo 02/27/2016 Free T4 Xuk139 FREE T4 1.03 ng/dL 05/10/2015 Comp Metabolic Emv227 NA 137 mEq/L 05/10/2015 Comp Metabolic Mnb627 K 4.4 mEq/L 05/10/2015 Comp Metabolic Ztz113 CL 102 mEq/L 05/10/2015 Comp Metabolic Sci612 CO2 28.0 mEq/L 05/10/2015 Comp Metabolic Qte874 ANION GAP 11 05/10/2015 Comp Metabolic Mxq299 GLUCOSE 108 mg/dL 05/10/2015 Comp Metabolic Lnm120 Creat 0.7 mg/dL 05/10/2015 Comp Metabolic Qar901 eGFR 86 ml/min/1.73m2 05/10/2015 Comp Metabolic Rzq497 BUN 13 mg/dL 05/10/2015 Comp Metabolic Awj641 B/C Ratio 18.3 Ratio 05/10/2015 Comp Metabolic Slq904 CALCIUM 9.4 mg/dL 05/10/2015 Comp Metabolic Jyq485 ALK PHOS 94 U/L 05/10/2015 Comp Metabolic Msr863 AST(SGOT) 22 U/L 05/10/2015 Comp Metabolic Ipo752 ALT(SGPT) 21 U/L 05/10/2015 Comp Metabolic Oqh450 BILI T 0.3 mg/dL 05/10/2015 Comp Metabolic Vxq452 ALBUMIN 3.9 g/dL 05/10/2015 Comp Metabolic Gab121 TPRO 6.1 g/dL 05/10/2015 Comp Metabolic Qbw569 GLOB 2.2 g/dL 05/10/2015 Comp Metabolic Lrg902 A/G Ratio 1.7 Ratio 05/10/2015 Comp Metabolic Qyk389 Osmo 274 mOsmo 05/10/2015 Tsh Ord6 hTSH [...] 29.4 pg 05/10/2015 Cbc With Differential Ord2 [place]% 9.0 % 05/10/2015 Cbc With Differential Ord2 [...] 2.14 K/ul 05/10/2015 Cbc With Differential Ord2 [place] ABS# 0.5 K/ul 05/10/2015 Cbc With Differential [...] Ord30 C/HDL 3.8 Ratio 05/10/2015 Culture Urine [id number] URINE CULTURE SEE NOTES 02/25/2015 Culture Urine [id number] Continued Results 02/25/2015 Urine Culture Ucult Complete >100,000 col/ml aerobic growth sent to ref lab 02/22/2015 Free T4 Tgw762 FREE T4 1.16 ng/dL 02/11/2015 Tsh Ord6 hTSH II 0.51 uIU/mL 02/11/2015 Review of Systems System Result Effective Dates Constitutional No recent illness 07/20/2018 Constitutional No [...] nourished 07/20/2018 None Full Exam - General 1994 Eyes conjunctiva/eyelids Overall: conjunctiva clear 07/20/2018 None [...] General 1994 Ears/Nose/Throat lips/teeth/gingiva Overall: benign lips 07/13/2018 None Full Exam - General 1994 [...] General 1994 Eyes conjunctiva/eyelids Overall: eyelids normal 04/21/2018 None Full Exam - General 1994 Eyes conjunctiva/eyelids Overall: cornea clear 04/21/2018 None [...] General 1994 Eyes conjunctiva/eyelids Overall: eyelids normal 12/24/2017 None [...] Procedure Codes Date THER/PROPH/DIAG INJ SC/IM CPT-4: 90828 04/08/2018 ROCEPHIN, PER 250 MG CPT- 4: J0696 04/08/2018 THER/PROPH/DIAG INJ SC/IM CPT-4: 38169 04/07/2018 ROCEPHIN, PER 250 MG CPT- 4: J0696 04/07/2018 THER/PROPH/DIAG INJ SC/IM CPT-4: 62176 04/06/2018 ROCEPHIN, PER 250 MG CPT- 4: J0696 04/06/2018 THER/PROPH/DIAG INJ SC/IM CPT-4: 30646 04/05/2018 ROCEPHIN, PER 250 MG CPT- 4: J0696 04/05/2018 KETOROLAC TROMETHAMINE INJ CPT-4: J1885 04/05/2018 THER/PROPH/DIAG INJ SC/IM CPT-4: 86247 04/04/2018 ROCEPHIN, PER 250 MG CPT- 4: J0696 04/04/2018 KETOROLAC TROMETHAMINE INJ CPT-4: J1885 04/04/2018 URINALYSIS NONAUTO W/O SCOPE CPT-4: 68593 03/24/2018 PPPS, SUBSEQ VISIT CPT- 4: G0439 12/24/2017 THER/PROPH/DIAG INJ SC/IM CPT-4: 69482 12/24/2017 TRIAMCINOLONE ACET INJ NOS CPT-4: J3301 12/24/2017 THER/PROPH/DIAG INJ SC/IM CPT-4: 27009 11/18/2017 ROCEPHIN, PER 250 MG CPT- 4: J0696 11/18/2017 PRESCRIP TRANSMIT VIA ERX SY CPT-4: G8553 04/01/2017 TRIAMCINOLONE ACET INJ NOS CPT-4: J3301 03/25/2017 PPPS, SUBSEQ VISIT CPT- 4: G0439 12/23/2016 THER/PROPH/DIAG INJ SC/IM CPT-4: 06931 12/08/2016 TRIAMCINOLONE ACET INJ NOS CPT-4: J3301 12/08/2016 PRESCRIP TRANSMIT VIA ERX SY CPT-4: G8553 12/08/2016 PRESCRIP TRANSMIT VIA ERX SY CPT-4: G8553 11/30/2016 URINALYSIS NONAUTO W/O SCOPE CPT-4: 96438 07/08/2016 PRESCRIP TRANSMIT VIA ERX SY CPT-4: G8553 06/01/2016 PRESCRIP TRANSMIT VIA ERX SY CPT-4: G8553 02/27/2016 THER/PROPH/DIAG INJ SC/IM CPT-4: 82525 03/01/2015 ROCEPHIN, PER 250 MG CPT- 4: J0696 03/01/2015 THER/PROPH/DIAG INJ SC/IM CPT-4: 20737 02/28/2015 ROCEPHIN, PER 250 MG CPT- 4: J0696 02/28/2015 THER/PROPH/DIAG INJ SC/IM CPT-4: 00652 02/27/2015 ROCEPHIN, PER 250 MG CPT- 4: J0696 02/27/2015 THER/PROPH/DIAG INJ SC/IM CPT-4: 79522 02/26/2015 ROCEPHIN, PER 250 MG CPT- 4: J0696 02/26/2015 THER/PROPH/DIAG INJ SC/IM CPT-4: 03774 02/25/2015 ROCEPHIN, PER 250 MG CPT- 4: J0696 02/25/2015 URINALYSIS NONAUTO W/O SCOPE CPT-4: 01195 02/21/2015 Vital Signs Date Vital 07/20/2018 Blood Pressure 1: 140/66 Code: 8480-6 BMI: 28.0 Code: 96867-0 Heart Rate 1: 64 bpm Height: 5'3" SpO2: 96% Weight: 158 lbs 07/13/2018 Blood Pressure 1: 144/60 Code: 8480-6 BMI: 28.0 Code: 94656-3 Heart Rate 1: 66 bpm Height: 5'3" SpO2: 98% Weight: 158 lbs 06/08/2018 Blood Pressure 1: 132/76 Code: 8480-6 BMI: 28.0 Code: 89447-4 Heart Rate 1: 70 bpm Height: 5'3" SpO2: 98% Weight: 158 lbs 05/30/2018 Blood Pressure 1: 136/72 Code: 8480-6 BMI: 28.0 Code: 08517-5 Heart Rate 1: 84 bpm Height: 5'3" Weight: 158 lbs 05/10/2018 Blood Pressure 1: 130/72 Code: 8480-6 BMI: 28.2 Code: 58671-2 Heart Rate 1: 70 bpm Height: 5'3" [...] 1: 134/58 Code: 8480-6 BMI: 27.8 Code: 30493-4 Heart Rate 1: 85 bpm Height: 5'3" SpO2: 96% Weight: 157 lbs 03/24/2018 Blood Pressure 1: 128/82 Code: 8480-6 BMI: 27.8 Code: 75568-2 Heart Rate 1: 84 bpm Height: 5'3" SpO2: 97% Weight: 157 lbs 03/01/2018 Blood Pressure 1: 136/70 Code: 8480-6 BMI: 27.8 Code: 74405-7 Heart Rate 1: 70 bpm Height: 5'3" SpO2: 96% Weight: 157 lbs 12/24/2017 Height: Weight: 11/18/2017 Blood Pressure 1: 164/74 Code: 8480-6 BMI: 27.6 Code: 94930-3 Heart Rate 1: 70 bpm Height: 5'3" SpO2: 96% Weight: 156 lbs 11/03/2017 Blood Pressure 1: 118/72 Code: 8480-6 BMI: 27.6 Code: 25277-8 Heart Rate 1: 82 bpm Height: 5'3" SpO2: 96% Weight: 156 lbs 09/22/2017 Blood Pressure 1: 136/68 Code: 8480-6 BMI: 27.6 Code: 55656-0 Heart Rate 1: 70 bpm Height: 5'3" SpO2: 97% Weight: 156 lbs 04/01/2017 Blood Pressure 1: 144/82 Code: 8480-6 Heart Rate 1: 68 bpm Height: 5'3" SpO2: 97% Weight: 03/25/2017 Blood Pressure 1: 116/70 Code: 8480-6 BMI: 26.7 Code: 94868-9 Heart Rate 1: 67 bpm Height: 5'3" SpO2: 98% Weight: 151 lbs 12/23/2016 BMI: 26.7 Code: 15074-9 Height: 5'3" Weight: 151 lbs 12/22/2016 Blood Pressure 1: 142/60 Code: 8480-6 BMI: 26.7 Code: 80832-4 Heart Rate 1: 67 bpm Height: 5'3" SpO2: 98% Weight: 151 lbs 12/08/2016 Blood Pressure 1: 140/72 Code: 8480-6 Heart Rate 1: 72 bpm Height: 5'3" SpO2: 97% Weight: 11/30/2016 Blood Pressure 1: 128/80 Code: 8480-6 BMI: 26.7 Code: 13602-8 Heart Rate 1: 63 bpm Height: 5'3" SpO2: 96% Weight: 151 lbs 09/28/2016 Blood Pressure 1: 130/80 Code: 8480-6 BMI: 27.1 Code: 84426-1 Heart Rate 1: 80 bpm Height: 5'3" SpO2: 97% Weight: 153 lbs 07/06/2016 Blood Pressure 1: 162/72 Code: 8480-6 BMI: 27.6 Code: 56005-7 Heart Rate 1: 72 bpm Height: 5'3" SpO2: 98% Weight: 156 lbs 06/01/2016 Blood Pressure 1: 122/66 Code: 8480-6 BMI: 27.5 Code: 88423-3 Heart Rate 1: 73 bpm Height: 5'3" SpO2: 98% Weight: 155 lbs 8 oz 02/27/2016 Blood Pressure 1: 126/68 Code: 8480-6 BMI: 26.9 Code: 54374-2 Heart Rate 1: 70 bpm Height: 5'3" SpO2: 98% Weight: 152 lbs 09/10/2015 Blood Pressure 1: 130/70 Code: 8480-6 BMI: 26.9 Code: 47056-7 Heart Rate 1: 72 bpm Height: 5'3" SpO2: 97% Weight: 152 lbs 05/14/2015 Blood Pressure 1: 138/82 Code: 8480-6 BMI: 26.4 Code: 40219-4 Heart Rate 1: 75 bpm Height: 5'3" SpO2: 98% Weight: 149 lbs 02/11/2015 Blood Pressure 1: 128/72 Code: 8480-6 BMI: 25.5 Code: 54596-4 Heart Rate 1: 73 bpm Height: 5'3" SpO2: 94% Weight: 144 lbs Functional Status No Functional Status data History of Present Illness Symptom Name Status Result Effective Date Notes Quality acute 07/20/2018 None Onset and Resolution [...] Codes Date EST. PATIENT, LEVEL III Diagnosis: Dysuria[ICD10: R30.0] Bridget Cortez MD, [facility] CPT-4: 34502 07/20/2018 ([id number]) 77414 EST. PATIENT, LEVEL III Diagnosis: Essential (primary) hypertension[ICD10: I10] Diagnosis: Atrophy of thyroid (acquired)[ICD10: E03.4] Elen Cortez MD, [facility] CPT-4: 10370 07/13/2018 [id number] EST. PATIENT, LEVEL III Diagnosis: Other fatigue[ICD10: R53.83] Diagnosis: Essential (primary) hypertension[ICD10: I10] Bridget Cortez MD, [facility] CPT-4: 41278 06/08/2018 [id number] EST. PATIENT, LEVEL IV Diagnosis: Essential (primary) hypertension[ICD10: I10] Diagnosis: Other fatigue[ICD10: R53.83] Diagnosis: Other allergic rhinitis[ICD10: J30.89] Bridget Cortez MD, [facility] CPT- 4: 33926 05/30/2018 12938 EST. PATIENT, LEVEL IV Diagnosis: Essential (primary) hypertension[ICD10: I10] Diagnosis: Other fatigue[ICD10: R53.83] Bridget Cortez MD, [facility] CPT-4: 07874 05/10/2018 64128 EST. PATIENT, LEVEL IV Diagnosis: Low back pain[ICD10: M54.5] Diagnosis: Essential (primary) hypertension[ICD10: I10] Diagnosis: Other fatigue[ICD10: R53.83] Diagnosis: Other malaise[ICD10: R53.81] Bridget Coretz MD, [facility] CPT-4: 45037 04/21/2018 12262 EST. PATIENT, LEVEL III Diagnosis: Other fatigue[ICD10: R53.83] Diagnosis: Otalgia, right ear[ICD10: H92.01] Bridget Cortez MD, [facility] CPT-4: 59357 04/13/2018 ([id number]) 58683 EST. PATIENT, LEVEL III Diagnosis: Essential (primary) hypertension[ICD10: I10] Diagnosis: Dysuria[ICD10: R30.0] Diagnosis: Nausea[ICD10: R11.0] Diagnosis: Headache[ICD10: R51] Elen Cortez MD, [facility] CPT-4: 44814 04/04/2018 37734 EST. PATIENT, LEVEL III Diagnosis: Other acute sinusitis[ICD10: J01.80] Diagnosis: Dizziness and giddiness[ICD10: R42] Diagnosis: Dysuria[ICD10: R30.0] Diagnosis: Candidal stomatitis[ICD10: B37.0] Diagnosis: Essential (primary) hypertension[ICD10: I10] Diagnosis: Other fatigue[ICD10: R53.83] Diagnosis: Other malaise[ICD10: R53.81] Bridget Cortez MD, [facility] CPT-4: 05827 04/01/2018 ([id number]) 14074 EST. 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 PATIENT, LEVEL IV Diagnosis: Otalgia, right ear[ICD10: H92.01] Diagnosis: Headache[ICD10: R51] Diagnosis: Other fatigue[ICD10: R53.83] Diagnosis: Abnormal findings on diagnostic imaging of other specified body structures[ICD10: R93.89] Elen Cortez MD, [facility] CPT-4: 26665 03/01/2018 58728 EST. PATIENT, LEVEL III Diagnosis: Acute cystitis with hematuria[ICD10: N30.01] Bridget Cortez MD, [facility] CPT-4: 06098 11/18/2017 86908 EST. PATIENT, LEVEL IV Diagnosis: Other acute sinusitis[ICD10: J01.80] Diagnosis: Otalgia, right ear[ICD10: H92.01] Bridget Cortez MD, [facility] CPT-4: 66744 11/03/2017 62685 EST. PATIENT, LEVEL III Diagnosis: Other fatigue[ICD10: R53.83] Diagnosis: Other malaise[ICD10: R53.81] Diagnosis: Pain in left knee[ICD10: M25.562] Diagnosis: Pain in right knee[ICD10: M25.561] Bridget Cortez MD, [facility] CPT-4: 50339 09/22/2017 ([id number]) 86623 EST. PATIENT, LEVEL III Diagnosis: Cough[ICD10: R05] Diagnosis: Acute bronchitis due to other specified organisms[ICD10: J20.8] Elen Cortez MD, [facility] CPT-4: 82811 04/01/2017 ([id number]) 75486 EST. PATIENT, LEVEL III Diagnosis: Otalgia, right ear[ICD10: H92.01] Diagnosis: Other allergic rhinitis[ICD10: J30.89] Shiela Cortez MD, [facility] CPT-4: 06532 03/25/2017 ([id number]) 27868 EST. PATIENT, LEVEL III Diagnosis: Benign paroxysmal vertigo, bilateral[ICD10: H81.13] Shiela Cortez MD, [facility] CPT-4: 97707 12/22/2016 ([id number]) 84402 EST. PATIENT, LEVEL IV Diagnosis: Benign paroxysmal vertigo, bilateral[ICD10: H81.13] Diagnosis: Other allergic rhinitis[ICD10: J30.89] Diagnosis: Hypothyroidism, unspecified[ICD10: E03.9] Shiela Cortez MD, [facility] CPT-4: 42068 12/08/2016 ([id number]) 10573 EST. PATIENT, LEVEL IV Diagnosis: Atrophy of thyroid (acquired)[ICD10: E03.4] Diagnosis: Essential (primary) hypertension[ICD10: I10] Diagnosis: Mixed hyperlipidemia[ICD10: E78.2] Elen Cortez MD, [facility] CPT- 4: 79054 11/30/2016 51921 EST. PATIENT, LEVEL IV Diagnosis: Headache[ICD10: R51] Diagnosis: Other fatigue[ICD10: R53.83] Diagnosis: Dizziness and giddiness[ICD10: R42] Bridget Cortez MD, [facility] CPT- 4: 19651 09/28/2016 10859 EST. PATIENT, LEVEL IV Diagnosis: Essential (primary) hypertension[ICD10: I10] Diagnosis: Headache[ICD10: R51] Bridget Cortez MD, [facility] CPT-4: 73142 07/06/2016 ([id number]) 46043 EST. PATIENT, LEVEL IV Diagnosis: Essential (primary) hypertension[ICD10: I10] Diagnosis: Atrophy of thyroid (acquired)[ICD10: E03.4] Diagnosis: Mixed hyperlipidemia[ICD10: E78.2] Elen Cortez MD, [facility] CPT- 4: 58592 06/01/2016 18684 EST. PATIENT, LEVEL IV Diagnosis: Acute laryngopharyngitis[ICD10: J06.0] Diagnosis: Other allergic rhinitis[ICD10: J30.89] Diagnosis: Other specified hypothyroidism[ICD10: E03.8] Diagnosis: Other fatigue[ICD10: R53.83] Bridget Cortez MD, [facility] CPT-4: 67088 02/27/2016 ([id number]) 04795 EST. PATIENT, LEVEL III Diagnosis: Essential (primary) hypertension[ICD10: I10] Diagnosis: Mixed hyperlipidemia[ICD10: E78.2] Elen Cortez MD, [facility] CPT- 4: 90722 09/10/2015 ([id number]) 17357 EST. PATIENT, LEVEL IV Diagnosis: Essential (primary) hypertension[ICD10: I10] Diagnosis: Hypothyroidism, unspecified[ICD10: E03.9] Diagnosis: Unspecified osteoarthritis, unspecified site[ICD10: M19.90] Elen Cortez MD, [facility] CPT-4: 35651 05/14/2015 ([id number]) OFFICE VISIT, NEW - LEVEL 4 Diagnosis: Essential (primary) hypertension[ICD10: I10] Diagnosis: Hypothyroidism, unspecified[ICD10: E03.9] Diagnosis: Unspecified osteoarthritis, unspecified site[ICD10: M19.90] Elen Cortez MD, [facility] CPT-4: 46792 02/11/2015 Plan of Care Planned Activity Notes Codes Status Date Appointment: Bridget Velazco WPtel: [address] [place], [place] [phone] (15 min) Moderate 08/09/2018 Visit Plan: UTI - pt with positive urinalysis - culture sent if appropriate. Antibiotic electronically prescribed to pt's pharmacy of choice. Pt to call if symptoms do not improve. 07/20/2018 Appointment: Bridget Velazco WPtel: [phone] [facility] (10 min) Simple 07/20/2018 Patient Education: Patient [...] control. 07/13/2018 Appointment: Elen Cortez WPtel: [phone] [facility] (30 min) Complex 07/13/2018 Patient Education: Patient [...] at home. 06/08/2018 Appointment: [phone] (15 min) Moderate 06/08/2018 Patient Education: Patient [...] allergy spray. 05/30/2018 Appointment: Bridget Velazco WPtel: [phone] [facility] (15 min) Moderate 05/30/2018 Patient Education: Patient [...] with any questions or concerns. 05/10/2018 Appointment: Birdget Velazco WPtel: [phone] [facility] (15 min) Moderate 05/10/2018 Patient Education: Patient Medication Summary Completed 05/10/2018 Appointment: Elen Cortez WPtel: [phone] [facility] (15 min) Moderate 05/05/2018 Referral: Wan Steven [...] or concerns. 04/21/2018 Appointment: Bridget Velazco WPtel: [facility]5 [facility] (15 min) Moderate 04/21/2018 Patient Education: Patient Medication Summary Completed 04/21/2018 Patient Education: Back Pain Completed 04/21/2018 Appointment: Bridget Velazco WPtel: [facility]9 [facility] [place] (15 min) Moderate 04/14/2018 Care Plan: [...] Dr. Saini. 04/13/2018 Appointment: Bridget Velazco WPtel: [facility]5 [facility] [place] (30 min) Complex 04/13/2018 Patient Education: Patient Medication Summary Completed 04/13/2018 Appointment: Nurse Visit 04/08/2018 Appointment: Bridget Velazco WPtel: [facility]5 [facility] [place] (15 min) Moderate 04/08/2018 Patient Education: Patient Medication Summary Completed 04/08/2018 Appointment: Injection 04/07/2018 Patient Education: Patient Medication Summary Completed 04/07/2018 Appointment: Injection 04/06/2018 Patient Education: Patient Medication Summary Completed 04/06/2018 Appointment: Injection 04/05/2018 Appointment: Elen Cortez WPtel: [facility]1 [facility] [place] (15 min) Moderate 04/05/2018 Patient Education: [...] toradol today. 04/04/2018 Appointment: [facility]el[phone] [place] (10 min) Simple 04/04/2018 Patient Education: Patient Medication Summary Completed 04/04/2018 Patient Education: Patient Medication Summary Completed 04/04/2018 Patient Education: Patient Medication Summary Completed 04/04/2018 Care Plan: Referral Order SNOMED-CT : [id number] Pending 04/04/2018 Visit Plan: Dysuria, dizziness, fatigue, [...] show improvement. 04/01/2018 Appointment: [phone] [place] (15 min) Moderate 04/01/2018 Patient Education: Patient Medication Summary Completed 04/01/2018 Visit Plan: Sinusitis - Pt has acute infection - pain in face, maxillary region, Pt informed to use decongestant, RX given to patient, sinus rinses also recommended. Call if symptoms do not show improvement. Dysuria - rx for antibiotic sent to pharmacy. 03/24/2018 Appointment: [facility] Cortez [facility]Ptel: [phone] (15 min) Moderate 03/24/2018 Patient Education: Patient [...] the hearing does not improve. 03/01/2018 Appointment: EdenElen urena WPtel: [phone] [facility] (15 min) Moderate 03/01/2018 Patient Education: Patient [...] spray. 12/24/2017 Appointment: Bridget Velazco WPtel: [facility]3 [facility] [facility] - Annual Wellness Visit 12/24/2017 Patient Education: Patient Medication Summary Completed 12/24/2017 Appointment: Bridget Velazco WPtel: [facility]4 [facility] (15 min) Moderate 11/30/2017 Appointment: Lab Draw [...] improve. 11/18/2017 Appointment: Bridget Velazco WPtel: [address] [place], [place] [phone] (15 min) Moderate 11/18/2017 Patient Education: Patient Medication Summary Completed 11/18/2017 Visit Plan: Sinusitis - Pt has acute infection - pain in face, maxillary region, Pt informed to use decongestant, RX given to patient, sinus rinses also recommended. Call if symptoms do not show improvement. 11/03/2017 Appointment: Bridget Velazco WPtel: [facility] (15 min) Moderate 11/03/2017 Patient Education: Patient [...] not improve. 09/22/2017 Appointment: Bridget Velazco WPtel: [facility] [place] (15 min) Moderate 09/22/2017 Patient Education: Patient Medication Summary Completed 09/22/2017 Visit Plan: Bronchitis - acute case of bronchitis identified. Pt has been given antibiotics, breathing treatments as appropriate, and pt has been instructed to call if symptoms are not improved, or if symptoms acutely worsen. 04/01/2017 Appointment: Elen Cortez WPtel: [facility]5 [facility] [place] (15 min) Moderate 04/01/2017 Patient Education: Patient [...] Appointment: Shiela Srivastava WPtel: [facility]6 [phone] [place] (10 min) Simple 03/25/2017 Appointment: Elen Cortez WPtel: [facility]9 [facility] [place] (15 min) Moderate 03/25/2017 Patient Education: [...] care surrogate. 12/23/2016 Appointment: Bridget Velazco WPtel: [facility]5 [facility] [place] [address] - Annual Wellness Visit 12/23/2016 Patient Education: Patient Medication Summary Completed 12/23/2016 Visit Plan: Vertigo-discussed PT for vestibular exercises-patient wants to wait since symptoms are improving-continue anti histamine as directed- meclizine as needed 12/22/2016 Appointment: Shiela Srivastava WPtel: [facility]5 [facility] [place] [address] (30 min) Complex 12/22/2016 Patient Education: Patient [...] Appointment: Shiela Srivastava WPtel: [facility]4 [phone] (30 min) Complex 12/08/2016 Patient Education: Patient [...] to medications. 11/30/2016 Appointment: Elen Cortez WPtel: [phone] (15 min) Moderate 11/30/2016 Patient Education: Patient [...] concerns. 09/28/2016 Appointment: [facility]el[phone] (30 min) Complex 09/28/2016 Patient Education: [...] acute concerns. 07/06/2016 Appointment: Bridget Velazco WPtel: [phone] [facility] (15 min) Moderate 07/06/2016 Patient Education: [...] Appointment: Bridget Velazco WPtel: [facility]5 [facility] (30 min) Complex 02/27/2016 Patient Education: Patient Medication Summary Completed 02/27/2016 Patient Education: Patient Medication Summary Completed 09/27/2015 Care Plan: SCREENINGMAMMOGRAPHYDIGITAL LOINC : 65320-9 Pending 09/27/2015 Visit Plan: Hypertension - well [...] preferred provider for the colonoscopy 09/10/2015 Appointment: lEen Cortez WPtel: [phone] (15 min) Moderate 09/10/2015 Patient Education: Patient [...] Sanchez. 05/14/2015 Appointment: Elen Cortez WPtel: [phone] [facility] (15 min) Moderate 05/14/2015 Patient Education: Patient Medication Summary Completed 05/14/2015 Patient Education: Hypertension Completed 05/14/2015 Care Plan: Referral Order SNOMED-CT : [id number] Ordered 05/14/2015 Patient Education: Patient Medication Summary Completed 03/01/2015 Appointment: Nurse Visit 02/28/2015 Patient Education: Patient Medication Summary Completed 02/28/2015 Patient Education: Patient Medication Summary Completed 02/27/2015 Appointment: Nurse Visit 02/26/2015 Patient Education: Patient Medication Summary Completed 02/26/2015 Appointment: Injection 02/25/2015 Patient Education: Patient Medication Summary Completed 02/25/2015 Patient Education: Patient Medication Summary Completed 02/21/2015 Care Plan: URINALYSIS NONAUTO W/O SCOPE LOINC : 59963-9 Ordered 02/21/2015 Visit Plan: Hypertension - well [...] symptoms. 02/11/2015 Appointment: Elen Cortez WPtel: [phone] [facility] New Patient 02/11/2015 Patient Education: Patient Medication [...] given today. Headache - toradol today. . Sinusitis - Pt has acute infection - pain in face, maxillary region, Pt informed to use decongestant, RX given to patient, sinus rinses also recommended. Call if symptoms do not show improvement. . Bronchitis - acute case of bronchitis [...] months based on previous levels of control. take an extra metoprolol if your blood [...] call if symptoms do not improve. . Medicare Exam - today [...]
--- OUTSIDE RECORDS SUMMARY | 2018-11-10 18:10 | XMS REPORT | CCD ---
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 Name Role Phone PP Unavailable CCM Unavailable Summary Purpose Interface Exchange Insurance Providers Payer name Policy type / Coverage type Covered constitution party ID Effective Begin Date Effective End Date WPS Medicare Part B Medicare Part B [id number] Unknown [employer] Insurance Medicare Part B [id number] Unknown Family history Mother Diagnosis Age At [...] spouses - 02/11/[address]: 271839720 Never smoker 02/11/2015 Alcohol history Unknown occasionally drinks alcohol 02/11/2015 Allergies, Adverse Reactions, Alerts Substance Reaction Codes Entered Date Inactivated Date Status CODEINE RxNorm: 2670 02/11/2015 No Inactive Date Active allergy Unknown 12/23/2016 No Inactive Date Active ciprofloxacin rash, RxNorm: 98827 02/26/2015 No Inactive Date Active hydrocodone Unknown [...] Start Date Stop Date Status Fill Instructions levocetirizine 5 mg tablet RxNorm: 859494 1 Tablet(s) PO daily 08/22/2018 02/17/2019 Active Synthroid 88 mcg tablet RxNorm: 107081 Tablet(s) TAKE 1 TABLET BY MOUTH DAILY 08/08/2018 12/05/2018 Active 03/07/2018 11:21:21 AM Flonase Allergy Relief 50 mcg/actuation nasal spray,suspension RxNorm: 7124110 1 [place] NASAL as needed 08/04/2018 08/04/2018 Inactive cefdinir 300 mg capsule RxNorm: 025029 1 Capsule(s) PO BID 07/20/2018 07/29/2018 Inactive Pyridium 200 mg tablet RxNorm: 4089191 1 Tablet(s) PO TID 07/20/2018 07/24/2018 Inactive meclizine 25 mg tablet RxNorm: 495451 1 Tablet(s) TID as needed 07/14/2018 No Stop Date Active dizziness nystatin 100,000 unit/gram topical cream RxNorm: 440756 1 Gram(s) TOP TID as needed 05/30/2018 No Stop Date Active levocetirizine 5 mg tablet RxNorm: 553716 1 Tablet(s) PO daily 05/30/2018 08/21/2018 Inactive metoprolol succinate ER 50 mg tablet,extended release 24 hr RxNorm: 824515 1 Tablet(s) daily may take 1 extra tab daily if systolic bp elevated 05/03/2018 11/28/2018 Active metoprolol succinate ER 50 mg tablet,extended release 24 hr RxNorm: 370420 Tablet(s) Tablet(s) TAKE 1 TABLET BY MOUTH DAILY 05/03/2018 05/02/2018 Inactive lisinopril 20 mg tablet RxNorm: 073562 TAKE 1 TABLET BY MOUTH TWICE DAILY 04/22/2018 09/18/2018 Active Generic For:*PRINIVIL 20 MG TABLET 04/22/2018 9:57:59 AM levocetirizine 5 mg tablet RxNorm: 301269 1 Tablet(s) PO daily 04/22/2018 04/21/2018 Inactive Singulair 10 mg tablet RxNorm: 190108 1 Tablet(s) PO QHS 04/22/2018 04/21/2018 Inactive Singulair 10 mg tablet RxNorm: 981958 1 Tablet(s) PO QHS 04/22/2018 05/12/2018 Inactive levocetirizine 5 mg tablet RxNorm: 569881 1 Tablet(s) PO daily 04/22/2018 05/21/2018 Inactive ceftriaxone 500 mg solution for injection RxNorm: 5667174 Inj 04/08/2018 04/08/2018 Inactive ceftriaxone 500 mg solution for injection RxNorm: 5308189 Inj 04/07/2018 04/07/2018 Inactive ceftriaxone 500 mg solution for injection RxNorm: 7310438 Inj 04/06/2018 04/06/2018 Inactive ketorolac 60 mg/2 mL intramuscular solution RxNorm: 3374320 Milliliter(s) IM 04/05/2018 04/05/2018 Inactive ceftriaxone 500 mg solution for injection RxNorm: 5805607 Inj 04/05/2018 04/05/2018 Inactive ondansetron 4 mg disintegrating tablet RxNorm: 208852 1 Tablet(s) PO TID as needed nausea 04/04/2018 No Stop Date Active ketorolac 30 mg/mL injection solution RxNorm: 960948 2 Milliliter(s) Inj 04/04/2018 04/04/2018 Inactive ceftriaxone 500 mg solution for injection RxNorm: 2740382 Inj 04/04/2018 04/04/2018 Inactive nystatin 100,000 unit/mL oral suspension RxNorm: 769783 4 Milliliter(s) PO QID 04/01/2018 04/05/2018 Inactive doxycycline hyclate 100 mg tablet RxNorm: 3566131 1 Tablet(s) PO BID 04/01/2018 04/10/2018 Inactive amoxicillin 500 mg capsule RxNorm: 603009 1 Capsule(s) PO TID 03/24/2018 04/02/2018 Inactive prednisone 10 mg tablet RxNorm: 105520 1 Tablet(s) PO UD 6 pills on day 1 and 2 and then decrease by one pill every other day until prescription is done 03/24/2018 05/12/2018 Inactive metoprolol succinate ER 50 mg tablet,extended release 24 hr RxNorm: 611041 Tablet(s) TAKE 1 TABLET BY MOUTH DAILY 03/21/2018 05/02/2018 Inactive PLEASE SEND REFILL REQUESTS ELECTRONICALLY!! Synthroid 88 mcg tablet RxNorm: 201378 TAKE 1 TABLET BY MOUTH DAILY 03/08/2018 08/04/2018 Inactive 03/07/2018 11:21:21 AM pravastatin 80 mg tablet RxNorm: 396223 Tablet(s) 1 Tablet(s) PO daily 03/01/2018 02/23/2019 Active Kenalog 40 mg/mL suspension for injection RxNorm: 9126408 Milliliter(s) Inj 12/24/2017 12/24/2017 Inactive cetirizine 10 mg tablet RxNorm: 9755193 TAKE 1 TABLET BY MOUTH DAILY 12/21/2017 04/19/2018 Inactive Generic For:*ZYRTEC 10 MG TABLET 12/21/2017 10:08:05 AM Synthroid 88 mcg tablet RxNorm: 059573 TAKE 1 TABLET BY MOUTH DAILY 12/07/2017 03/06/2018 Inactive 12/06/2017 11:46:49 AM Lipitor 80 mg tablet RxNorm: 124068 1 Tablet(s) PO daily 11/29/2017 02/28/2018 Inactive pravastatin 80 mg tablet RxNorm: 415760 1 Tablet(s) PO daily 11/29/2017 11/29/2017 Inactive Lipitor 80 mg tablet RxNorm: 226000 1 Tablet(s) PO daily 11/29/2017 11/28/2017 Inactive lisinopril 20 mg tablet RxNorm: 162788 TAKE 1 TABLET BY MOUTH TWICE DAILY 11/23/2017 04/21/2018 Inactive Generic For:*PRINIVIL 20 MG TABLET 11/23/2017 11:29:44 AM Macrobid 100 mg capsule RxNorm: 796508 1 Capsule(s) PO BID 11/19/2017 11/25/2017 Inactive Macrobid 100 mg capsule RxNorm: 927149 1 Capsule(s) PO BID 11/19/2017 11/18/2017 Inactive Lomotil 2.5 mg-0.025 mg tablet RxNorm: 0217705 1 -2 Tablet(s) PO TID as needed 11/19/2017 11/25/2017 Inactive Lomotil 2.5 mg-0.025 mg tablet RxNorm: 0026436 1 -2 Tablet(s) PO TID as needed 11/19/2017 11/18/2017 Inactive Pyridium 200 mg tablet RxNorm: 6401124 1 Tablet(s) PO TID as needed 11/18/2017 11/22/2017 Inactive Augmentin 500 mg-125 mg tablet RxNorm: 399594 1 Tablet(s) PO TID 11/18/2017 11/27/2017 Inactive Keflex 500 mg capsule RxNorm: 905829 1 Capsule(s) PO TID 11/03/2017 11/09/2017 Inactive Denavir 1 % topical cream RxNorm: 595680 1 TOP TID as needed cold sores 11/01/2017 01/29/2018 Inactive Denavir 1 % topical cream RxNorm: 253432 1 TOP TID as needed cold sores 11/01/2017 10/31/2017 Inactive Synthroid 88 mcg tablet RxNorm: 592263 TAKE 1 TABLET BY MOUTH DAILY 09/29/2017 11/27/2017 Inactive 09/29/2017 12:58:07 PM pravastatin 80 mg tablet RxNorm: 576697 1 Tablet(s) PO daily 08/31/2017 08/30/2017 Inactive pravastatin 80 mg tablet RxNorm: 336631 1 Tablet(s) PO daily 08/31/2017 11/28/2017 Inactive Synthroid 88 mcg tablet RxNorm: 969458 TAKE 1 TABLET BY MOUTH DAILY 08/30/2017 09/28/2017 Inactive 08/30/2017 10:53:26 AM metoprolol succinate ER 50 mg tablet,extended release 24 hr RxNorm: 957360 Tablet(s) TAKE 1 TABLET BY MOUTH DAILY 08/17/2017 03/14/2018 Inactive PLEASE SEND REFILL REQUESTS ELECTRONICALLY!! lisinopril 20 mg tablet RxNorm: 352739 TAKE 1 TABLET BY MOUTH TWICE DAILY 06/18/2017 11/14/2017 Inactive Generic For:*PRINIVIL 20 MG TABLET 06/18/2017 1:31:00 PM Synthroid 88 mcg tablet RxNorm: 968878 TAKE 1 TABLET BY MOUTH DAILY 05/24/2017 08/21/2017 Inactive 05/24/2017 2:13:21 PM cetirizine 10 mg tablet RxNorm: 5129714 1 Tablet(s) PO daily 05/17/2017 12/12/2017 Inactive Zithromax Z-Russell 250 mg capsule RxNorm: 188387 1 Capsule(s) PO 04/02/2017 04/05/2017 Inactive Zithromax Z-Russell 250 mg tablet RxNorm: 646116 1 Tablet(s) PO 04/02/2017 04/01/2017 Inactive Zithromax Z-Russell 250 mg capsule RxNorm: 996208 1 Capsule(s) PO 04/02/2017 04/01/2017 Inactive Zithromax Z-Russell 250 mg tablet RxNorm: 579769 1 Tablet(s) PO 04/02/2017 04/06/2017 Inactive Ventolin HFA 90 mcg/actuation aerosol inhaler RxNorm: 777601 2 INH QID as needed - for the first 3 days inhale at least two puffs three times daily, then use as needed for shortness of breath 04/01/2017 04/30/2017 Inactive Keflex 500 mg capsule RxNorm: 290026 1 Capsule(s) PO TID 04/01/2017 04/01/2017 Inactive meclizine 25 mg tablet RxNorm: 916904 Tablet(s) 1 Tablet(s) PO Q6 PRN 03/25/2017 03/24/2017 Inactive dizziness Kenalog 40 mg/mL suspension for injection RxNorm: 3041952 1 Milliliter(s) Inj 03/25/2017 03/25/2017 Inactive meclizine 25 mg tablet RxNorm: 769322 1 Tablet(s) PO Q6 PRN 1 Tablet(s) PO Q6 PRN 03/25/2017 05/12/2018 Inactive dizziness meclizine 25 mg tablet RxNorm: 917664 1 Tablet(s) PO Q6 PRN 02/15/2017 03/24/2017 Inactive dizziness lisinopril 20 mg tablet RxNorm: 763084 1 Tablet(s) PO BID 01/15/2017 06/13/2017 Inactive metoprolol succinate ER 50 mg tablet,extended release 24 hr RxNorm: 724970 TAKE 1 TABLET BY MOUTH DAILY 01/07/2017 08/04/2017 Inactive Generic For:TOPROL XL 50MG TAB 01/07/2017 12:38:23 PM Synthroid 88 mcg tablet RxNorm: 373442 TAKE 1 TABLET BY MOUTH DAILY 12/25/2016 05/23/2017 Inactive 12/25/2016 9:47:08 AM Zithromax Z-Russell 250 mg tablet RxNorm: 991874 Tablet(s) PO UD 12/23/2016 03/24/2017 Inactive meclizine 25 mg tablet RxNorm: 588028 1 Tablet(s) PO Q6 PRN 12/08/2016 12/20/2016 Inactive dizziness Kenalog 40 mg/mL suspension for injection RxNorm: 5872611 Milliliter(s) Inj 12/08/2016 12/08/2016 Inactive meloxicam 15 mg tablet RxNorm: 925198 1 Tablet(s) PO daily 11/30/2016 12/20/2016 Inactive cetirizine 10 mg tablet RxNorm: 0709896 1 Tablet(s) PO daily 10/23/2016 05/16/2017 Inactive pravastatin 40 mg tablet RxNorm: 521272 1 Tablet(s) PO BID 08/20/2016 08/30/2017 Inactive Cancel 80 mg tab lisinopril 20 mg tablet RxNorm: 411048 1 Tablet(s) PO BID 08/12/2016 12/22/2016 Inactive Synthroid 88 mcg tablet RxNorm: 139575 1 Tablet(s) PO TAKE ONE (1) TABLET BY MOUTH DAILY 07/28/2016 12/24/2016 Inactive decrease dose hydralazine 25 mg tablet RxNorm: 436920 1 Tablet(s) PO TID as needed for Systolic blood pressure over 170 07/06/2016 12/20/2016 Inactive lisinopril 20 mg tablet RxNorm: 961119 1 Tablet(s) PO BID to replace your other lisinopril dose 07/06/2016 08/04/2016 Inactive lisinopril 10 mg tablet RxNorm: 804097 TAKE ONE TABLET BY MOUTH TWICE DAILY 06/10/2016 08/11/2016 Inactive Generic For:ZESTRIL 10 MG TABLET 06/09/2016 12:58:50 PM triamcinolone acetonide 0.1 % topical cream RxNorm: 8985506 1 Application TOP TID as needed 06/01/2016 No Stop Date Active nystatin 100,000 unit/gram topical cream RxNorm: 730556 1 Gram(s) TOP TID as needed 06/01/2016 05/29/2018 Inactive metoprolol succinate ER 50 mg tablet,extended release 24 hr RxNorm: 559749 1 Tablet(s) PO daily 05/26/2016 12/21/2016 Inactive cetirizine 10 mg tablet RxNorm: 1274817 1 Tablet(s) PO daily 03/23/2016 10/18/2016 Inactive Synthroid 88 mcg tablet RxNorm: 824833 1 Tablet(s) PO TAKE ONE (1) TABLET BY MOUTH DAILY 03/06/2016 03/07/2018 Inactive Brand name only! Synthroid 88 mcg tablet RxNorm: 621305 1 Tablet(s) PO TAKE ONE (1) TABLET BY MOUTH DAILY 03/04/2016 03/05/2016 Inactive decrease dose cetirizine 10 mg tablet RxNorm: 9305348 1 Tablet(s) PO daily 02/27/2016 03/22/2016 Inactive amoxicillin 500 mg capsule RxNorm: 363514 1 Capsule(s) PO TID 02/27/2016 03/04/2016 Inactive lisinopril 10 mg tablet RxNorm: 597593 TAKE ONE TABLET BY MOUTH TWICE DAILY 02/06/2016 06/04/2016 Inactive Generic For:ZESTRIL 10 MG TABLET 02/06/2016 12:16:38 PM Synthroid 100 mcg tablet RxNorm: 759855 TAKE ONE (1) TABLET BY MOUTH DAILY 01/03/2016 03/03/2016 Inactive 01/03/2016 10:35:14 AM N O T I C E Last quantity doesn't match original quantity lisinopril 10 mg tablet RxNorm: 211541 1 Tablet(s) PO BID 10/04/2015 01/31/2016 Inactive Synthroid 100 mcg tablet RxNorm: 602740 1 Tablet(s) PO daily 10/04/2015 01/02/2016 Inactive metoprolol succinate ER 50 mg tablet,extended release 24 hr RxNorm: 235518 1 Tablet(s) PO daily 10/04/2015 04/30/2016 Inactive Tylenol Arthritis 650 mg tablet,extended release RxNorm: 8010117 2 Tablet(s) PO TID 09/10/2015 No Stop Date Active metoprolol succinate ER 50 mg tablet,extended release 24 hr RxNorm: 951510 1 Tablet(s) PO daily 09/05/2015 10/03/2015 Inactive pravastatin 80 mg tablet RxNorm: 405925 1 Tablet(s) PO QHS 08/30/2015 08/30/2015 Inactive pravastatin 40 mg tablet RxNorm: 032516 1 Tablet(s) PO BID 08/30/2015 08/29/2015 Inactive Cancel 80 mg tab pravastatin 40 mg tablet RxNorm: 252275 1 Tablet(s) PO BID 08/30/2015 08/19/2016 Inactive Cancel 80 mg tab lisinopril 10 mg tablet RxNorm: 593458 1 Tablet(s) PO BID 06/13/2015 08/11/2016 Inactive lisinopril 10 mg tablet RxNorm: 168571 1 Tablet(s) PO BID 06/13/2015 10/03/2015 Inactive Synthroid 100 mcg tablet RxNorm: 694334 1 Tablet(s) PO daily 06/10/2015 10/03/2015 Inactive ceftriaxone 1 gram solution for injection RxNorm: 1520058 Inj 03/01/2015 03/01/2015 Inactive ceftriaxone 1 gram solution for injection RxNorm: 5645170 Inj 02/28/2015 02/28/2015 Inactive ceftriaxone 1 gram solution for injection RxNorm: 3321236 Inj 02/27/2015 02/27/2015 Inactive ceftriaxone 1 gram solution for injection RxNorm: 5761969 Inj 02/26/2015 02/26/2015 Inactive ceftriaxone 1 gram solution for injection RxNorm: 8142627 Inj 02/25/2015 02/25/2015 Inactive phenazopyridine 200 mg tablet RxNorm: 4384183 1 Tablet(s) PO Q8 02/21/2015 02/20/2015 Inactive Cipro 500 mg tablet RxNorm: 517430 1 Tablet(s) PO BID 02/21/2015 02/20/2015 Inactive phenazopyridine 200 mg tablet RxNorm: 5175741 1 Tablet(s) PO Q8 02/21/2015 02/25/2015 Inactive Cipro 500 mg tablet RxNorm: 098001 1 Tablet(s) PO BID 02/21/2015 02/27/2015 Inactive lisinopril 10 mg tablet RxNorm: 819303 1 Tablet(s) PO BID 02/14/2015 06/12/2015 Inactive metoprolol succinate ER 50 mg tablet,extended release 24 hr RxNorm: 795732 3/4 Tablet(s) PO daily 02/11/2015 09/04/2015 Inactive Voltaren 1 % topical gel RxNorm: 809633 2 Gram(s) TOP QID use this on affected joints up to four times daily. 02/11/2015 03/12/2015 Inactive Probiotic oral RxNorm: 6205 oral No Start Date Active aspirin 81 mg tablet RxNorm: 950841 1 Tablet(s) PO daily No Start Date Active Super B-Complex tablet RxNorm: 1 Tablet(s) PO No Start Date Active Super-D3+ oral RxNorm: oral No Start Date Active Prilosec OTC 20 mg tablet,delayed release RxNorm: 753918 2 Tablet(s) PO QAM No Start Date Active Move Free Ultra 40 mg-10 mg-3.3 mg tablet RxNorm: 1 Tablet(s) PO daily No Start Date Active metoprolol tartrate 50 mg tablet RxNorm: 429390 1 Tablet(s) PO daily No Start Date 02/10/2015 Inactive lisinopril 10 mg tablet RxNorm: 797497 1 Tablet(s) PO BID No Start Date 02/13/2015 Inactive pravastatin 80 mg tablet RxNorm: 703712 1 Tablet(s) PO daily No Start Date 08/29/2015 Inactive Flonase Allergy Relief 50 mcg/actuation nasal spray,suspension RxNorm: 3796357 1 Jackson NASAL BID No Start Date 05/12/2018 Inactive Synthroid 100 mcg tablet RxNorm: 420312 1 Tablet(s) PO daily No Start Date 06/09/2015 Inactive lisinopril 40 mg tablet RxNorm: 942998 1 Tablet(s) PO BID No Start Date 02/28/2018 Inactive Tylenol Arthritis 650 mg tablet,extended release RxNorm: 7766766 4 Tablet(s) PO daily No Start Date 09/09/2015 Inactive Flonase Allergy Relief 50 mcg/actuation nasal spray,suspension RxNorm: 0945274 1 Jackson NASAL as needed No Start Date 08/03/2018 Inactive Medication Administered Medication Codes Instructions Start Date Status ceftriaxone 500 mg solution for injection RxNorm: 6667495 04/08/2018 No longer Active ceftriaxone 500 mg solution for injection RxNorm: 7608810 04/07/2018 No longer Active ceftriaxone 500 mg solution for injection RxNorm: 3851495 04/06/2018 No longer Active ceftriaxone 500 mg solution for injection RxNorm: 1777521 04/05/2018 No longer Active ketorolac 60 mg/2 mL intramuscular solution RxNorm: 4559787 Milliliter 04/05/2018 No longer Active ceftriaxone 500 mg solution for injection RxNorm: 3180468 04/04/2018 No longer Active ketorolac 30 mg/mL injection solution RxNorm: 408319 2Milliliter 04/04/2018 No longer Active Kenalog 40 mg/mL suspension for injection RxNorm: 9556819 Milliliter 12/24/2017 No longer Active Kenalog 40 mg/mL suspension for injection RxNorm: 0547592 1Milliliter 03/25/2017 No longer Active Kenalog 40 mg/mL suspension for injection RxNorm: 6551359 Milliliter 12/08/2016 No longer Active ceftriaxone 1 gram solution for injection RxNorm: 4241327 03/01/2015 No longer Active ceftriaxone 1 gram solution for injection RxNorm: 7171358 02/28/2015 No longer Active ceftriaxone 1 gram solution for injection RxNorm: 2263720 02/27/2015 No longer Active ceftriaxone 1 gram solution for injection RxNorm: 8279711 02/26/2015 No longer Active ceftriaxone 1 gram solution for injection RxNorm: 8114800 02/25/2015 No longer Active Immunizations Vaccine Codes [...] sent to ref lab 07/21/2018 Free T4 Yig510 FREE T4 1.07 ng/dL 04/04/2018 Tsh Ord6 TSH (3rd IS) 1.93 uIU/mL 04/04/2018 Urine Culture Ucult Preliminary NO Growth Day 1 03/28/2018 Urine Culture Ucult Complete NO Growth Day 2 03/28/2018 Urine Culture Ucult Complete >100,000 col/ml aerobic growth sent to ref lab 11/19/2017 B12 Zqe459 B12 712.00 pg/ml 09/28/2017 C-Reactive Protein Qnt Crqnt CRP 0.1 mg/dl 09/23/2017 Comp Metabolic Epb544 NA 139 mEq/L 09/23/2017 Comp Metabolic Mjv093 K 4.8 mEq/L 09/23/2017 Comp Metabolic Oot994 CL 104 mEq/L 09/23/2017 Comp Metabolic Dde917 CO2 28.0 mEq/L 09/23/2017 Comp Metabolic Foz179 ANION GAP 12 09/23/2017 Comp Metabolic Qkq986 GLUCOSE 92 mg/dL 09/23/2017 Comp Metabolic Aww464 Creat 0.7 mg/dL 09/23/2017 Comp Metabolic Gwu640 eGFR 91 ml/min/1.73m2 09/23/2017 Comp Metabolic Zmk378 BUN 11 mg/dL 09/23/2017 Comp Metabolic Vwp519 B/C Ratio 16.4 Ratio 09/23/2017 Comp Metabolic Bot223 CALCIUM 9.0 mg/dL 09/23/2017 Comp Metabolic Ray386 ALK PHOS 76 U/L 09/23/2017 Comp Metabolic Jsa924 AST(SGOT) 24 U/L 09/23/2017 Comp Metabolic Kkb294 ALT(SGPT) 21 U/L 09/23/2017 Comp Metabolic Epo262 BILI T 0.3 mg/dL 09/23/2017 Comp Metabolic Goa351 ALBUMIN 4.1 g/dL 09/23/2017 Comp Metabolic Vnv022 TPRO 6.2 g/dL 09/23/2017 Comp Metabolic Acj526 GLOB 2.1 g/dL 09/23/2017 Comp Metabolic Zmc470 A/G Ratio 1.9 Ratio 09/23/2017 Comp Metabolic Utg292 Osmo 277 mOsmo 09/23/2017 Sed Rate Ord21 ESR 3 mm/hr 09/22/2017 Vitamin D 25 Oh Wwg3561 VITAMIN D, 25 HYDROXY 78.79 ng/mL 09/22/2017 [...] 30.6 pg 09/22/2017 Cbc With Differential Ord2 [place]% 10.5 % 09/22/2017 Cbc With Differential Ord2 [...] 2.37 K/ul 09/22/2017 Cbc With Differential Ord2 [place] ABS# 0.9 K/ul 09/22/2017 Cbc With Differential Ord2 Eos ABS# 0.2 K/ul 09/22/2017 Cbc With Differential Ord2 Baso ABS# 0.0 K/ul 09/22/2017 Free T4 Mzq408 FREE T4 0.99 ng/dL 09/22/2017 %Hba1C Iqw158 % HbA1c 74087- 6 6.0 % 12/10/2016 %Hba1C Woq491 Gluc Ave 126 mg/dL 12/10/2016 Tsh Ord6 hTSH II 0.89 uIU/mL 12/09/2016 Free T4 Yqv947 FREE T4 0.99 ng/dL 12/09/2016 Comp Metabolic Pnz328 NA 138 mEq/L 12/09/2016 Comp Metabolic Evt896 K 5.2 mEq/L 12/09/2016 Comp Metabolic Bht918 CL 104 mEq/L 12/09/2016 Comp Metabolic Yjy709 CO2 29.0 mEq/L 12/09/2016 Comp Metabolic Xdt396 ANION GAP 10 12/09/2016 Comp Metabolic Poo793 GLUCOSE 135 mg/dL 12/09/2016 Comp Metabolic Uxu235 Creat 0.8 mg/dL 12/09/2016 Comp Metabolic Tuw816 eGFR 79 ml/min/1.73m2 12/09/2016 Comp Metabolic Cfh009 BUN 18 mg/dL 12/09/2016 Comp Metabolic Bfu264 B/C Ratio 23.7 Ratio 12/09/2016 Comp Metabolic Pud272 CALCIUM 9.5 mg/dL 12/09/2016 Comp Metabolic Pco220 ALK PHOS 73 U/L 12/09/2016 Comp Metabolic Eao466 AST(SGOT) 24 U/L 12/09/2016 Comp Metabolic Zmw293 ALT(SGPT) 20 U/L 12/09/2016 Comp Metabolic Gfe500 BILI T 0.3 mg/dL 12/09/2016 Comp Metabolic Scv378 ALBUMIN 4.3 g/dL 12/09/2016 Comp Metabolic Dxb485 TPRO 6.4 g/dL 12/09/2016 Comp Metabolic Wtp679 GLOB 2.1 g/dL 12/09/2016 Comp Metabolic Ozr909 A/G Ratio 2.0 Ratio 12/09/2016 Comp Metabolic Mbj613 Osmo 280 mOsmo 12/09/2016 Cbc With Differential [...] 31.3 pg 12/09/2016 Cbc With Differential Ord2 [place]% 6.5 % 12/09/2016 Cbc With Differential Ord2 [...] 1.84 K/ul 12/09/2016 Cbc With Differential Ord2 [place] ABS# 0.6 K/ul 12/09/2016 Cbc With Differential Ord2 Eos ABS# 0.1 K/ul 12/09/2016 Cbc With Differential Ord2 Baso ABS# 0.1 K/ul 12/09/2016 Tsh Ord6 hTSH II 1.19 uIU/mL 09/02/2016 Free T4 Tkj865 FREE T4 0.97 ng/dL 09/02/2016 Comp Metabolic Gws883 NA 137 mEq/L 06/01/2016 Comp Metabolic Gej157 K 4.1 mEq/L 06/01/2016 Comp Metabolic Pdi514 CL 104 mEq/L 06/01/2016 Comp Metabolic Omq441 CO2 25.0 mEq/L 06/01/2016 Comp Metabolic Mbs651 ANION GAP 12 06/01/2016 Comp Metabolic Crw425 GLUCOSE 108 mg/dL 06/01/2016 Comp Metabolic Ckm045 Creat 0.8 mg/dL 06/01/2016 Comp Metabolic Uds742 eGFR 80 ml/min/1.73m2 06/01/2016 Comp Metabolic Zvs357 BUN 15 mg/dL 06/01/2016 Comp Metabolic Igr505 B/C Ratio 20.0 Ratio 06/01/2016 Comp Metabolic Ayi393 CALCIUM 9.1 mg/dL 06/01/2016 Comp Metabolic Vab697 ALK PHOS 89 U/L 06/01/2016 Comp Metabolic Zef606 AST(SGOT) 25 U/L 06/01/2016 Comp Metabolic Cwr402 ALT(SGPT) 20 U/L 06/01/2016 Comp Metabolic Zzi982 BILI T 0.3 mg/dL 06/01/2016 Comp Metabolic Gkf529 ALBUMIN 4.2 g/dL 06/01/2016 Comp Metabolic Agu666 TPRO 6.2 g/dL 06/01/2016 Comp Metabolic Dok265 GLOB 2.0 g/dL 06/01/2016 Comp Metabolic Orb973 A/G Ratio 2.1 Ratio 06/01/2016 Comp Metabolic Qmd887 Osmo 275 mOsmo 06/01/2016 Free T4 Qfi090 FREE T4 0.94 ng/dL 06/01/2016 Tsh Ord6 [...] 31.1 pg 06/01/2016 Cbc With Differential Ord2 [place]% 8.4 % 06/01/2016 Cbc With Differential Ord2 [...] 2.96 K/ul 06/01/2016 Cbc With Differential Ord2 [place] ABS# 0.6 K/ul 06/01/2016 Cbc With Differential [...] 31.3 pg 02/27/2016 Cbc With Differential Ord2 [place]% 10.0 % 02/27/2016 Cbc With Differential Ord2 [...] 2.28 K/ul 02/27/2016 Cbc With Differential Ord2 [place] ABS# 0.9 K/ul 02/27/2016 Cbc With Differential Ord2 Eos ABS# 0.3 K/ul 02/27/2016 Cbc With Differential Ord2 Baso ABS# 0.1 K/ul 02/27/2016 Tsh Ord6 hTSH II 0.18 uIU/mL 02/27/2016 Free T4 Xti807 FREE T4 1.17 ng/dL 02/27/2016 Comp Metabolic Gsf877 NA 135 mEq/L 02/27/2016 Comp Metabolic Zoo005 K 5.2 mEq/L 02/27/2016 Comp Metabolic Rxd334 CL 102 mEq/L 02/27/2016 Comp Metabolic Ilb572 CO2 27.0 mEq/L 02/27/2016 Comp Metabolic Qvf650 ANION GAP 11 02/27/2016 Comp Metabolic Xbp219 GLUCOSE 93 mg/dL 02/27/2016 Comp Metabolic Nsz732 Creat 0.7 mg/dL 02/27/2016 Comp Metabolic Aqk541 eGFR 91 ml/min/1.73m2 02/27/2016 Comp Metabolic Nfc661 BUN 14 mg/dL 02/27/2016 Comp Metabolic Ovs700 B/C Ratio 20.9 Ratio 02/27/2016 Comp Metabolic Wfb551 CALCIUM 9.4 mg/dL 02/27/2016 Comp Metabolic Flo515 ALK PHOS 100 U/L 02/27/2016 Comp Metabolic Ufs851 AST(SGOT) 23 U/L 02/27/2016 Comp Metabolic Ahl052 ALT(SGPT) 24 U/L 02/27/2016 Comp Metabolic Bvm526 BILI T 0.2 mg/dL 02/27/2016 Comp Metabolic Xei307 ALBUMIN 4.3 g/dL 02/27/2016 Comp Metabolic Lfg770 TPRO 6.3 g/dL 02/27/2016 Comp Metabolic Akg116 GLOB 2.1 g/dL 02/27/2016 Comp Metabolic Knu885 A/G Ratio 2.1 Ratio 02/27/2016 Comp Metabolic Jpo035 Osmo 270 mOsmo 02/27/2016 Free T4 Llx603 FREE T4 1.03 ng/dL 05/10/2015 Comp Metabolic Kyj474 NA 137 mEq/L 05/10/2015 Comp Metabolic Nrk298 K 4.4 mEq/L 05/10/2015 Comp Metabolic Ipm988 CL 102 mEq/L 05/10/2015 Comp Metabolic Lmi713 CO2 28.0 mEq/L 05/10/2015 Comp Metabolic Xic256 ANION GAP 11 05/10/2015 Comp Metabolic Hqb923 GLUCOSE 108 mg/dL 05/10/2015 Comp Metabolic Xwv646 Creat 0.7 mg/dL 05/10/2015 Comp Metabolic Uzs457 eGFR 86 ml/min/1.73m2 05/10/2015 Comp Metabolic Vyn729 BUN 13 mg/dL 05/10/2015 Comp Metabolic Iak760 B/C Ratio 18.3 Ratio 05/10/2015 Comp Metabolic Vab843 CALCIUM 9.4 mg/dL 05/10/2015 Comp Metabolic Iky482 ALK PHOS 94 U/L 05/10/2015 Comp Metabolic Ytr696 AST(SGOT) 22 U/L 05/10/2015 Comp Metabolic Uzu238 ALT(SGPT) 21 U/L 05/10/2015 Comp Metabolic Qtz390 BILI T 0.3 mg/dL 05/10/2015 Comp Metabolic Jsz920 ALBUMIN 3.9 g/dL 05/10/2015 Comp Metabolic Lms965 TPRO 6.1 g/dL 05/10/2015 Comp Metabolic Ndr174 GLOB 2.2 g/dL 05/10/2015 Comp Metabolic Qbk458 A/G Ratio 1.7 Ratio 05/10/2015 Comp Metabolic Zur357 Osmo 274 mOsmo 05/10/2015 Tsh Ord6 hTSH [...] 29.4 pg 05/10/2015 Cbc With Differential Ord2 [place]% 9.0 % 05/10/2015 Cbc With Differential Ord2 [...] 2.14 K/ul 05/10/2015 Cbc With Differential Ord2 [place] ABS# 0.5 K/ul 05/10/2015 Cbc With Differential [...] Ord30 C/HDL 3.8 Ratio 05/10/2015 Culture Urine [id number] URINE CULTURE SEE NOTES 02/25/2015 Culture Urine [id number] Continued Results 02/25/2015 Urine Culture Ucult Complete >100,000 col/ml aerobic growth sent to ref lab 02/22/2015 Free T4 Dwu138 FREE T4 1.16 ng/dL 02/11/2015 Tsh Ord6 [...] sounds 05/30/2018 None Full Exam - General 1995 Musculoskeletal spine, ribs and pelvis Spine: tender [...] Procedure Codes Date THER/PROPH/DIAG INJ SC/IM CPT-4: 41666 04/08/2018 ROCEPHIN, PER 250 MG CPT- 4: J0696 04/08/2018 THER/PROPH/DIAG INJ SC/IM CPT-4: 54583 04/07/2018 ROCEPHIN, PER 250 MG CPT- 4: J0696 04/07/2018 THER/PROPH/DIAG INJ SC/IM CPT-4: 58115 04/06/2018 ROCEPHIN, PER 250 MG CPT- 4: J0696 04/06/2018 THER/PROPH/DIAG INJ SC/IM CPT-4: 62835 04/05/2018 ROCEPHIN, PER 250 MG CPT- 4: J0696 04/05/2018 KETOROLAC TROMETHAMINE INJ CPT-4: J1885 04/05/2018 THER/PROPH/DIAG INJ SC/IM CPT-4: 73332 04/04/2018 ROCEPHIN, PER 250 MG CPT- 4: J0696 04/04/2018 KETOROLAC TROMETHAMINE INJ CPT-4: J1885 04/04/2018 URINALYSIS NONAUTO W/O SCOPE CPT-4: 84853 03/24/2018 PPPS, SUBSEQ VISIT CPT- 4: G0439 12/24/2017 THER/PROPH/DIAG INJ SC/IM CPT-4: 37922 12/24/2017 TRIAMCINOLONE ACET INJ NOS CPT-4: J3301 12/24/2017 THER/PROPH/DIAG INJ SC/IM CPT-4: 56756 11/18/2017 ROCEPHIN, PER 250 MG CPT- 4: J0696 11/18/2017 PRESCRIP TRANSMIT VIA ERX SY CPT-4: G8553 04/01/2017 TRIAMCINOLONE ACET INJ NOS CPT-4: J3301 03/25/2017 PPPS, SUBSEQ VISIT CPT- 4: G0439 12/23/2016 THER/PROPH/DIAG INJ SC/IM CPT-4: 30062 12/08/2016 TRIAMCINOLONE ACET INJ NOS CPT-4: J3301 12/08/2016 PRESCRIP TRANSMIT VIA ERX SY CPT-4: G8553 12/08/2016 PRESCRIP TRANSMIT VIA ERX SY CPT-4: G8553 11/30/2016 URINALYSIS NONAUTO W/O SCOPE CPT-4: 42251 07/08/2016 PRESCRIP TRANSMIT VIA ERX SY CPT-4: G8553 06/01/2016 PRESCRIP TRANSMIT VIA ERX SY CPT-4: G8553 02/27/2016 THER/PROPH/DIAG INJ SC/IM CPT-4: 43891 03/01/2015 ROCEPHIN, PER 250 MG CPT- 4: J0696 03/01/2015 THER/PROPH/DIAG INJ SC/IM CPT-4: 88419 02/28/2015 ROCEPHIN, PER 250 MG CPT- 4: J0696 02/28/2015 THER/PROPH/DIAG INJ SC/IM CPT-4: 91854 02/27/2015 ROCEPHIN, PER 250 MG CPT- 4: J0696 02/27/2015 THER/PROPH/DIAG INJ SC/IM CPT-4: 62792 02/26/2015 ROCEPHIN, PER 250 MG CPT- 4: J0696 02/26/2015 THER/PROPH/DIAG INJ SC/IM CPT-4: 11825 02/25/2015 ROCEPHIN, PER 250 MG CPT- 4: J0696 02/25/2015 URINALYSIS NONAUTO W/O SCOPE CPT-4: 46207 02/21/2015 Vital Signs Date Vital 07/20/2018 Blood Pressure 1: 140/66 Code: 8480-6 BMI: 28.0 Code: 57657-9 Heart Rate 1: 64 bpm Height: 5'3" SpO2: 96% Weight: 158 lbs 07/13/2018 Blood Pressure 1: 144/60 Code: 8480-6 BMI: 28.0 Code: 92527-6 Heart Rate 1: 66 bpm Height: 5'3" SpO2: 98% Weight: 158 lbs 06/08/2018 Blood Pressure 1: 132/76 Code: 8480-6 BMI: 28.0 Code: 11897-0 Heart Rate 1: 70 bpm Height: 5'3" SpO2: 98% Weight: 158 lbs 05/30/2018 Blood Pressure 1: 136/72 Code: 8480-6 BMI: 28.0 Code: 88209-7 Heart Rate 1: 84 bpm Height: 5'3" Weight: 158 lbs 05/10/2018 Blood Pressure 1: 130/72 Code: 8480-6 BMI: 28.2 Code: 80842-7 Heart Rate 1: 70 bpm Height: 5'3" [...] 1: 134/58 Code: 8480-6 BMI: 27.8 Code: 45096-8 Heart Rate 1: 85 bpm Height: 5'3" SpO2: 96% Weight: 157 lbs 03/24/2018 Blood Pressure 1: 128/82 Code: 8480-6 BMI: 27.8 Code: 28168-1 Heart Rate 1: 84 bpm Height: 5'3" SpO2: 97% Weight: 157 lbs 03/01/2018 Blood Pressure 1: 136/70 Code: 8480-6 BMI: 27.8 Code: 68986-2 Heart Rate 1: 70 bpm Height: 5'3" SpO2: 96% Weight: 157 lbs 12/24/2017 Height: Weight: 11/18/2017 Blood Pressure 1: 164/74 Code: 8480-6 BMI: 27.6 Code: 01305-1 Heart Rate 1: 70 bpm Height: 5'3" SpO2: 96% Weight: 156 lbs 11/03/2017 Blood Pressure 1: 118/72 Code: 8480-6 BMI: 27.6 Code: 56840-7 Heart Rate 1: 82 bpm Height: 5'3" SpO2: 96% Weight: 156 lbs 09/22/2017 Blood Pressure 1: 136/68 Code: 8480-6 BMI: 27.6 Code: 08389-3 Heart Rate 1: 70 bpm Height: 5'3" SpO2: 97% Weight: 156 lbs 04/01/2017 Blood Pressure 1: 144/82 Code: 8480-6 Heart Rate 1: 68 bpm Height: 5'3" SpO2: 97% Weight: 03/25/2017 Blood Pressure 1: 116/70 Code: 8480-6 BMI: 26.7 Code: 71645-5 Heart Rate 1: 67 bpm Height: 5'3" SpO2: 98% Weight: 151 lbs 12/23/2016 BMI: 26.7 Code: 18444-3 Height: 5'3" Weight: 151 lbs 12/22/2016 Blood Pressure 1: 142/60 Code: 8480-6 BMI: 26.7 Code: 05954-8 Heart Rate 1: 67 bpm Height: 5'3" SpO2: 98% Weight: 151 lbs 12/08/2016 Blood Pressure 1: 140/72 Code: 8480-6 Heart Rate 1: 72 bpm Height: 5'3" SpO2: 97% Weight: 11/30/2016 Blood Pressure 1: 128/80 Code: 8480-6 BMI: 26.7 Code: 83553-3 Heart Rate 1: 63 bpm Height: 5'3" SpO2: 96% Weight: 151 lbs 09/28/2016 Blood Pressure 1: 130/80 Code: 8480-6 BMI: 27.1 Code: 80379-4 Heart Rate 1: 80 bpm Height: 5'3" SpO2: 97% Weight: 153 lbs 07/06/2016 Blood Pressure 1: 162/72 Code: 8480-6 BMI: 27.6 Code: 66557-0 Heart Rate 1: 72 bpm Height: 5'3" SpO2: 98% Weight: 156 lbs 06/01/2016 Blood Pressure 1: 122/66 Code: 8480-6 BMI: 27.5 Code: 15228-3 Heart Rate 1: 73 bpm Height: 5'3" SpO2: 98% Weight: 155 lbs 8 oz 02/27/2016 Blood Pressure 1: 126/68 Code: 8480-6 BMI: 26.9 Code: 81167-3 Heart Rate 1: 70 bpm Height: 5'3" SpO2: 98% Weight: 152 lbs 09/10/2015 Blood Pressure 1: 130/70 Code: 8480-6 BMI: 26.9 Code: 01192-2 Heart Rate 1: 72 bpm Height: 5'3" SpO2: 97% Weight: 152 lbs 05/14/2015 Blood Pressure 1: 138/82 Code: 8480-6 BMI: 26.4 Code: 88143-3 Heart Rate 1: 75 bpm Height: 5'3" SpO2: 98% Weight: 149 lbs 02/11/2015 Blood Pressure 1: 128/72 Code: 8480-6 BMI: 25.5 Code: 58193-2 Heart Rate 1: 73 bpm Height: 5'3" [...] Annual Medicare Wellness Exam Hours of Sleep -12/24/2017 None Annual Medicare Wellness Exam Interaction with [...] data Encounters Encounter Performer Location Codes Date 24282 EST. PATIENT, LEVEL III Diagnosis: Dysuria[ICD10: R30.0] Bridget Cortez MD, [facility] CPT-4: 63049 07/20/2018 ([id number]) 03861 EST. PATIENT, LEVEL III Diagnosis: Essential (primary) hypertension[ICD10: I10] Diagnosis: Atrophy of thyroid (acquired)[ICD10: E03.4] Elen Cortez MD, [facility] CPT-4: 59874 07/13/2018 20503 EST. PATIENT, LEVEL III Diagnosis: Other fatigue[ICD10: R53.83] Diagnosis: Essential (primary) hypertension[ICD10: I10] Bridget Cortez MD, [facility] CPT-4: 80198 06/08/2018 80047 EST. PATIENT, LEVEL IV Diagnosis: Essential (primary) hypertension[ICD10: I10] Diagnosis: Other fatigue[ICD10: R53.83] Diagnosis: Other allergic rhinitis[ICD10: J30.89] Bridget Cortez MD, [facility] CPT- 4: 48664 05/30/2018 73617 EST. PATIENT, LEVEL IV Diagnosis: Essential (primary) hypertension[ICD10: I10] Diagnosis: Other fatigue[ICD10: R53.83] Bridget Cortez MD, [facility] CPT-4: 19805 05/10/2018 26026 EST. PATIENT, LEVEL IV Diagnosis: Low back pain[ICD10: M54.5] Diagnosis: Essential (primary) hypertension[ICD10: I10] Diagnosis: Other fatigue[ICD10: R53.83] Diagnosis: Other malaise[ICD10: R53.81] Bridget Cortez MD, [facility] CPT-4: 91527 04/21/2018 30257 EST. PATIENT, LEVEL III Diagnosis: Other fatigue[ICD10: R53.83] Diagnosis: Otalgia, right ear[ICD10: H92.01] Bridget Cortez MD, [facility] CPT-4: 52564 04/13/2018 ([id number]) 28156 EST. PATIENT, LEVEL III Diagnosis: Essential (primary) hypertension[ICD10: I10] Diagnosis: Dysuria[ICD10: R30.0] Diagnosis: Nausea[ICD10: R11.0] Diagnosis: Headache[ICD10: R51] Elen Cortez MD, [facility] CPT-4: 61664 04/04/2018 10960 EST. PATIENT, LEVEL III Diagnosis: Other acute sinusitis[ICD10: J01.80] Diagnosis: Dizziness and giddiness[ICD10: R42] Diagnosis: Dysuria[ICD10: R30.0] Diagnosis: Candidal stomatitis[ICD10: B37.0] Diagnosis: Essential (primary) hypertension[ICD10: I10] Diagnosis: Other fatigue[ICD10: R53.83] Diagnosis: Other malaise[ICD10: R53.81] Bridget Cortez MD, [facility] CPT-4: 37230 04/01/2018 ([id number]) 20715 EST. 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 PATIENT, LEVEL IV Diagnosis: Otalgia, right ear[ICD10: H92.01] Diagnosis: Headache[ICD10: R51] Diagnosis: Other fatigue[ICD10: R53.83] Diagnosis: Abnormal findings on diagnostic imaging of other specified body structures[ICD10: R93.89] Elen Cortez MD, [facility] CPT-4: 10362 03/01/2018 69757 EST. PATIENT, LEVEL III Diagnosis: Acute cystitis with hematuria[ICD10: N30.01] Bridget Cortez MD, [facility] CPT-4: 13852 11/18/2017 76054 EST. PATIENT, LEVEL IV Diagnosis: Other acute sinusitis[ICD10: J01.80] Diagnosis: Otalgia, right ear[ICD10: H92.01] Bridget Cortez MD, [facility] CPT-4: 47495 11/03/2017 80406 EST. PATIENT, LEVEL III Diagnosis: Other fatigue[ICD10: R53.83] Diagnosis: Other malaise[ICD10: R53.81] Diagnosis: Pain in left knee[ICD10: M25.562] Diagnosis: Pain in right knee[ICD10: M25.561] Bridget Cortez MD, [facility] CPT-4: 38418 09/22/2017 ([id number]) 93110 EST. PATIENT, LEVEL III Diagnosis: Cough[ICD10: R05] Diagnosis: Acute bronchitis due to other specified organisms[ICD10: J20.8] Elen Cortez MD, [facility] CPT-4: 66084 04/01/2017 ([id number]) 70702 EST. PATIENT, LEVEL III Diagnosis: Otalgia, right ear[ICD10: H92.01] Diagnosis: Other allergic rhinitis[ICD10: J30.89] Shiela Cortez MD, [facility] CPT-4: 99223 03/25/2017 ([id number]) 96743 EST. PATIENT, LEVEL III Diagnosis: Benign paroxysmal vertigo, bilateral[ICD10: H81.13] Shiela Cortez MD, [facility] CPT-4: 06535 12/22/2016 ([id number]) 58675 EST. PATIENT, LEVEL IV Diagnosis: Benign paroxysmal vertigo, bilateral[ICD10: H81.13] Diagnosis: Other allergic rhinitis[ICD10: J30.89] Diagnosis: Hypothyroidism, unspecified[ICD10: E03.9] Shiela Cortez MD, [facility] CPT-4: 24811 12/08/2016 ([id number]) 83346 EST. PATIENT, LEVEL IV Diagnosis: Atrophy of thyroid (acquired)[ICD10: E03.4] Diagnosis: Essential (primary) hypertension[ICD10: I10] Diagnosis: Mixed hyperlipidemia[ICD10: E78.2] Elen Cortez MD, [facility] CPT- 4: 68289 11/30/2016 24146 EST. PATIENT, LEVEL IV Diagnosis: Headache[ICD10: R51] Diagnosis: Other fatigue[ICD10: R53.83] Diagnosis: Dizziness and giddiness[ICD10: R42] Bridget Cortez MD, [facility] CPT- 4: 71544 09/28/2016 78465 EST. PATIENT, LEVEL IV Diagnosis: Essential (primary) hypertension[ICD10: I10] Diagnosis: Headache[ICD10: R51] Bridget Cortez MD, [facility] CPT-4: 62320 07/06/2016 ([id number]) 43118 EST. PATIENT, LEVEL IV Diagnosis: Essential (primary) hypertension[ICD10: I10] Diagnosis: Atrophy of thyroid (acquired)[ICD10: E03.4] Diagnosis: Mixed hyperlipidemia[ICD10: E78.2] Elen Cortez MD, [facility] CPT- 4: 44684 06/01/2016 66351 EST. PATIENT, LEVEL IV Diagnosis: Acute laryngopharyngitis[ICD10: J06.0] Diagnosis: Other allergic rhinitis[ICD10: J30.89] Diagnosis: Other specified hypothyroidism[ICD10: E03.8] Diagnosis: Other fatigue[ICD10: R53.83] Bridget Cortez MD, [facility] CPT-4: 29137 02/27/2016 ([id number]) 54897 EST. PATIENT, LEVEL III Diagnosis: Essential (primary) hypertension[ICD10: I10] Diagnosis: Mixed hyperlipidemia[ICD10: E78.2] Elen Cortez MD, [facility] CPT- 4: 69716 09/10/2015 ([id number]) 17424 EST. PATIENT, LEVEL IV Diagnosis: Essential (primary) hypertension[ICD10: I10] Diagnosis: Hypothyroidism, unspecified[ICD10: E03.9] Diagnosis: Unspecified osteoarthritis, unspecified site[ICD10: M19.90] Elen Cortez MD, [facility] CPT-4: 27839 05/14/2015 ([id number]) OFFICE VISIT, NEW - LEVEL 4 Diagnosis: Essential (primary) hypertension[ICD10: I10] Diagnosis: Hypothyroidism, unspecified[ICD10: E03.9] Diagnosis: Unspecified osteoarthritis, unspecified site[ICD10: M19.90] Elen Cortez MD, [facility] CPT-4: 54084 02/11/2015 Plan of Care Planned Activity Notes Codes Status Date Appointment: [facility] [place] (15 min) Moderate 08/09/2018 Visit Plan: UTI - pt with positive urinalysis - culture sent if appropriate. Antibiotic electronically prescribed to pt's pharmacy of choice. Pt to call if symptoms do not improve. 07/20/2018 Appointment: Bridget Velazco WPtel: [facility]5 [facility] (10 min) Simple 07/20/2018 Patient Education: Patient [...] of control. 07/13/2018 Appointment: Elen Cortez WPtel: [phone] [facility] (30 min) Complex 07/13/2018 Patient Education: Patient [...] at home. 06/08/2018 Appointment: Bridget Velazco WPtel: [facility] (15 min) Moderate 06/08/2018 Patient Education: Patient [...] allergy spray. 05/30/2018 Appointment: Bridget Velazco WPtel: [facility] (15 min) Moderate 05/30/2018 Patient Education: Patient [...] or concerns. 05/10/2018 Appointment: Bridget Velazco WPtel: [facility] (15 min) Moderate 05/10/2018 Patient Education: Patient Medication Summary Completed 05/10/2018 Appointment: Elen Cortez WPtel: [facility] (15 min) Moderate 05/05/2018 Referral: Wan Steven [...] or concerns. 04/21/2018 Appointment: Bridget Velazco WPtel: [address] [place], [place] [phone] (15 min) Moderate 04/21/2018 Patient Education: Patient Medication Summary Completed 04/21/2018 Patient Education: Back Pain Completed 04/21/2018 Appointment: Bridget Velazco WPtel: [address] [place], [place] [id number] (15 min) Moderate 04/14/2018 Care Plan: [...] Dr. Saini. 04/13/2018 Appointment: Bridget Velazco WPtel: [address] [place], [place] [id number] (30 min) Complex 04/13/2018 Patient Education: Patient Medication Summary Completed 04/13/2018 Appointment: Nurse Visit 04/08/2018 Appointment: Bridget Velazco WPtel: [address] [place], [place] [phone] (15 min) Moderate 04/08/2018 Patient Education: Patient Medication Summary Completed 04/08/2018 Appointment: Injection 04/07/2018 Patient Education: Patient Medication Summary Completed 04/07/2018 Appointment: Injection 04/06/2018 Patient Education: Patient Medication Summary Completed 04/06/2018 Appointment: Injection 04/05/2018 Appointment: Elen Cortez WPtel: [address] [place], [place] [address] (15 min) Moderate 04/05/2018 Patient Education: Patient [...] today. 04/04/2018 Appointment: [phone] (10 min) Simple 04/04/2018 Patient Education: Patient Medication Summary Completed 04/04/2018 Patient Education: Patient Medication Summary Completed 04/04/2018 Patient Education: Patient Medication Summary Completed 04/04/2018 Care Plan: Referral Order SNOMED-CT : [id number] Pending 04/04/2018 Visit Plan: Dysuria, dizziness, fatigue, [...] improvement. 04/01/2018 Appointment: [facility]co [phone] [place] (15 min) Moderate 04/01/2018 Patient Education: Patient Medication Summary Completed 04/01/2018 Visit Plan: Sinusitis - Pt has acute infection - pain in face, maxillary region, Pt informed to use decongestant, RX given to patient, sinus rinses also recommended. Call if symptoms do not show improvement. Dysuria - rx for antibiotic sent to pharmacy. 03/24/2018 Appointment: Elen Cortez [facility]Ptel: [phone] (15 min) Moderate 03/24/2018 Patient Education: Patient [...] not improve. 03/01/2018 Appointment: Elen Cortez WPtel: [address] [place], [place] [address] (15 min) Moderate 03/01/2018 Patient Education: Patient [...] spray. 12/24/2017 Appointment: Bridget Velazco WPtel: [facility] [facility] - Annual Wellness Visit 12/24/2017 Patient Education: Patient Medication Summary Completed 12/24/2017 Appointment: Bridget Velazco WPtel: [facility] (15 min) Moderate 11/30/2017 Appointment: Lab Draw [...] improve. 11/18/2017 Appointment: Bridget Velazco WPtel: [facility]5 [facility] (15 min) Moderate 11/18/2017 Patient Education: Patient Medication Summary Completed 11/18/2017 Visit Plan: Sinusitis - Pt has acute infection - pain in face, maxillary region, Pt informed to use decongestant, RX given to patient, sinus rinses also recommended. Call if symptoms do not show improvement. 11/03/2017 Appointment: Bridget Velazco WPtel: [facility] (15 min) Moderate 11/03/2017 Patient Education: [...] improve. 09/22/2017 Appointment: Bridget Velazco WPtel: [facility] (15 min) Moderate 09/22/2017 Patient Education: Patient Medication Summary Completed 09/22/2017 Visit Plan: Bronchitis - acute case of bronchitis identified. Pt has been given antibiotics, breathing treatments as appropriate, and pt has been instructed to call if symptoms are not improved, or if symptoms acutely worsen. 04/01/2017 Appointment: Elen Cortez WPtel: [phone] (15 min) Moderate 04/01/2017 Patient Education: [...] spray. 03/25/2017 Appointment: Shiela Srivastava WPtel: [facility]6 [address] (10 min) Simple 03/25/2017 Appointment: Elen Cortez WPtel: [phone] [facility] (15 min) Moderate 03/25/2017 Patient [...] surrogate. 12/23/2016 Appointment: Bridget Velazco WPtel: [address] [place] [address] - Annual Wellness Visit 12/23/2016 Patient Education: Patient Medication Summary Completed 12/23/2016 Visit Plan: Vertigo-discussed PT for vestibular exercises-patient wants to wait since symptoms are improving-continue anti histamine as directed- meclizine as needed 12/22/2016 Appointment: Shiela Srivastava WPtel: [address] [place] [address] (30 min) Complex 12/22/2016 Patient Education: Patient [...] of control. 12/08/2016 Appointment: Shiela Srivastava WPtel: [address] [place], [place] [phone] [place] [address] (30 min) Complex 12/08/2016 Patient Education: Patient [...] medications. 11/30/2016 Appointment: Elen Cortez [facility]Ptel: [phone] (15 min) Moderate 11/30/2016 Patient Education: Patient [...] or concerns. 09/28/2016 Appointment: [facility]azco [facility] (30 min) Complex 09/28/2016 Patient Education: [...] concerns. 07/06/2016 Appointment: [facility]azco [facility]el[phone] (15 min) Moderate 07/06/2016 Patient Education: [...] improving 06/01/2016 Appointment: Elen Cortez [facility]Ptel: [phone] (15 min) Moderate 06/01/2016 Patient Education: Patient [...] labs 02/27/2016 Appointment: [facility]azco [facility]el[phone] (30 min) Complex 02/27/2016 Patient Education: Patient Medication Summary Completed 02/27/2016 Patient Education: Patient Medication Summary Completed 09/27/2015 Care Plan[facility]134-7 Pending 09/27/2015 Visit Plan: Hypertension - well [...] colonoscopy 09/10/2015 Appointment: Elen Cortez WPtel: [phone] (15 min) Moderate 09/10/2015 Patient Education: Patient [...] Sanchez. 05/14/2015 Appointment: Elen Cortez WPtel: [address] (15 min) Moderate 05/14/2015 Patient Education: Patient Medication Summary Completed 05/14/2015 Patient Education: Hypertension Completed 05/14/2015 Care Plan: Referral Order SNOMED-CT : [id number] Ordered 05/14/2015 Patient Education: Patient Medication Summary Completed 03/01/2015 Appointment: Nurse Visit 02/28/2015 Patient Education: Patient Medication Summary Completed 02/28/2015 Patient Education: Patient Medication Summary Completed 02/27/2015 Appointment: Nurse Visit 02/26/2015 Patient Education: Patient Medication Summary Completed 02/26/2015 Appointment: Injection 02/25/2015 Patient Education: Patient Medication Summary Completed 02/25/2015 Patient Education: Patient Medication Summary Completed 02/21/2015 Care Plan: URINALYSIS NONAUTO W/O [facility] : 08972-3 Ordered 02/21/2015 Visit Plan: Hypertension - well [...] symptoms. 02/11/2015 Appointment: Elen Cortez WPtel: [facility] New Patient 02/11/2015 Patient Education: Patient Medication [...]
[2018-11-10] MEDS ORDERED: CATHETER FLUSH 10 ML SYR IV PRN (18:15)
[2018-11-10] MEDS ORDERED: IOHEXOL 350 MG/ML 100 ML (OMNIPAQUE 350) VIAL IV ONE (18:15)
[2018-11-10] MEDS ORDERED: NS 100 ML (IVPB) BAG IV ONE (18:15)
[2018-11-10] MEDS ORDERED: HOLD METFORMIN - RECEIVED CONTRAST 20 ML VIAL IV SCH (18:15)
--- OUTSIDE RECORDS SUMMARY | 2018-11-10 18:15 | XMS REPORT | CCD ---
Author Author [facility]en [facility] Organization [facility] Address [address] [place] [address] Phone Care Team Providers Care Occupational Therapy Assistant Name Role Phone PP Unavailable CCM Unavailable Summary Purpose Interface Exchange Insurance Providers Payer name Policy type / Coverage type Covered constitution party ID Effective Begin Date Effective End Date WPS Medicare Part B Medicare Part B [id number] Unknown [place] [employer] Life Insurance Medicare Part B [id number] Unknown Family history Mother Diagnosis Age At Onset GI bleed Unknown Colon cancer Unknown Father Diagnosis Age At Onset Heart disease Unknown Stroke Unknown Social History Social History Element Codes Description Effective Dates Marital status Unknown twice - twice 02/11/2015 Living arrangements Unknown House 02/11/2015 Education level Unknown Some College 02/11/2015 Employment Unknown Retired - 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 - 02/11/[address]: [id number] Never smoker 02/11/2015 Alcohol history Unknown occasionally drinks alcohol 02/11/2015 Allergies, Adverse Reactions, Alerts Substance Reaction Codes Entered Date Inactivated Date Status ciprofloxacin rash RxNorm: 61135 02/26/2015 No Inactive Date Active Past Medical History Illness Codes Condition Status Onset Date Resolved Date Dizziness and giddiness ICD-9: 780.4 ICD-10: R42 Active 09/28/2016 Unknown Headache ICD-9: 784.0 ICD-10: R51 Active 07/06/2016 Unknown Other fatigue ICD-9: 780.79 ICD-10: R53.83 Active 02/26/2016 Unknown Hypothyroidism, unspecified ICD-9: 244.9 ICD-10: E03.9 Active 02/26/2016 Unknown Dysuria ICD-9: 788.1 ICD-10: R30.0 Active 02/20/2015 Unknown Essential (primary) hypertension ICD-9: 401.9 ICD-10: I10 Active 09/09/2015 Unknown 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 Active 06/01/2016 Unknown Mixed hyperlipidemia ICD- 9: 272.2 ICD-10: E78.2 Active 09/09/2015 Unknown Acute laryngopharyngitis ICD-9: 465.0 ICD-10: J06.0 Active 02/26/2016 Unknown Other allergic rhinitis ICD-9: 477.8 ICD-10: J30.89 Active 02/26/2016 Unknown Other specified hypothyroidism ICD-9: [...] Problems Condition Codes Effective Dates Condition Status Dizziness and giddiness ICD-9: 780.4 ICD-10: R42 09/28/2016 Active Headache ICD-9: 784.0 ICD-10: R51 07/06/2016 Active Other fatigue ICD-9: 780.79 ICD-10: R53.83 02/26/2016 Active Hypothyroidism, unspecified ICD-9: 244.9 ICD-10: E03.9 02/26/2016 Active Dysuria ICD-9: 788.1 ICD-10: R30.0 02/20/2015 Active Essential (primary) hypertension ICD-9: 401.9 ICD-10: I10 09/09/2015 Active 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 06/01/2016 Active Mixed hyperlipidemia ICD- 9: 272.2 ICD-10: E78.2 09/09/2015 Active Acute laryngopharyngitis ICD-9: 465.0 ICD-10: J06.0 02/26/2016 Active Other allergic rhinitis ICD-9: 477.8 ICD-10: J30.89 02/26/2016 Active Other specified hypothyroidism ICD-9: 244.8 [...] Fill Instructions cetirizine 10 mg tablet RxNorm: 2439389 1 Tablet(s) PO daily 10/23/2016 05/20/2017 Active pravastatin 40 mg tablet RxNorm: 417464 1 Tablet(s) PO BID 08/20/2016 08/14/2017 Active Cancel 80 mg tab lisinopril 20 mg tablet RxNorm: 981482 1 Tablet(s) PO BID 08/12/2016 01/08/2017 Active Synthroid 88 mcg tablet RxNorm: 751322 1 Tablet(s) PO TAKE ONE (1) TABLET BY MOUTH DAILY 07/28/2016 12/24/2016 Active decrease dose hydralazine 25 mg tablet RxNorm: 717530 1 Tablet(s) PO TID as needed for Systolic blood pressure over 170 07/06/2016 No Stop Date Active lisinopril 20 mg tablet RxNorm: 408842 1 Tablet(s) PO BID to replace your other lisinopril dose 07/06/2016 08/04/2016 Inactive lisinopril 10 mg tablet RxNorm: 770741 TAKE ONE TABLET BY MOUTH TWICE DAILY 06/10/2016 08/11/2016 Inactive Generic For:ZESTRIL 10 MG TABLET 06/09/2016 12:58:50 PM triamcinolone acetonide 0.1 % topical cream RxNorm: 1626027 1 Application TOP TID as needed 06/01/2016 No Stop Date Active nystatin 100,000 unit/gram topical cream RxNorm: 212600 1 Gram(s) TOP TID as needed 06/01/2016 No Stop Date Active metoprolol succinate ER 50 mg tablet,extended release 24 hr RxNorm: 868101 1 Tablet(s) PO daily 05/26/2016 12/21/2016 Active cetirizine 10 mg tablet RxNorm: 8397792 1 Tablet(s) PO daily 03/23/2016 10/18/2016 Inactive Synthroid 88 mcg tablet RxNorm: 468886 1 Tablet(s) PO TAKE ONE (1) TABLET BY MOUTH DAILY 03/06/2016 08/02/2016 Inactive Brand name only! Synthroid 88 mcg tablet RxNorm: 580803 1 Tablet(s) PO TAKE ONE (1) TABLET BY MOUTH DAILY 03/04/2016 03/05/2016 Inactive decrease dose cetirizine 10 mg tablet RxNorm: 9843897 1 Tablet(s) PO daily 02/27/2016 03/22/2016 Inactive amoxicillin 500 mg capsule RxNorm: 231268 1 Capsule(s) PO TID 02/27/2016 03/04/2016 Inactive lisinopril 10 mg tablet RxNorm: 101979 TAKE ONE TABLET BY MOUTH TWICE DAILY 02/06/2016 06/04/2016 Inactive Generic For:ZESTRIL 10 MG TABLET 02/06/2016 12:16:38 PM Synthroid 100 mcg tablet RxNorm: 832753 TAKE ONE (1) TABLET BY MOUTH DAILY 01/03/2016 03/03/2016 Inactive 01/03/2016 10:35:14 AM N O T I C E Last quantity doesn't match original quantity lisinopril 10 mg tablet RxNorm: 879207 1 Tablet(s) PO BID 10/04/2015 01/31/2016 Inactive Synthroid 100 mcg tablet RxNorm: 376266 1 Tablet(s) PO daily 10/04/2015 01/02/2016 Inactive metoprolol succinate ER 50 mg tablet,extended release 24 hr RxNorm: 222375 1 Tablet(s) PO daily 10/04/2015 04/30/2016 Inactive Tylenol Arthritis 650 mg tablet,extended release RxNorm: 3228033 2 Tablet(s) PO TID 09/10/2015 No Stop Date Active metoprolol succinate ER 50 mg tablet,extended release 24 hr RxNorm: 313574 1 Tablet(s) PO daily 09/05/2015 10/03/2015 Inactive pravastatin 80 mg tablet RxNorm: 827749 1 Tablet(s) PO QHS 08/30/2015 08/30/2015 Inactive pravastatin 40 mg tablet RxNorm: 918999 1 Tablet(s) PO BID 08/30/2015 08/29/2015 Inactive Cancel 80 mg tab pravastatin 40 mg tablet RxNorm: 289042 1 Tablet(s) PO BID 08/30/2015 08/19/2016 Inactive Cancel 80 mg tab lisinopril 10 mg tablet RxNorm: 357110 1 Tablet(s) PO BID 06/13/2015 08/11/2016 Inactive lisinopril 10 mg tablet RxNorm: 673631 1 Tablet(s) PO BID 06/13/2015 10/03/2015 Inactive Synthroid 100 mcg tablet RxNorm: 494746 1 Tablet(s) PO daily 06/10/2015 10/03/2015 Inactive ceftriaxone 1 gram solution for injection RxNorm: 2350491 Inj 03/01/2015 03/01/2015 Inactive ceftriaxone 1 gram solution for injection RxNorm: 9297405 Inj 02/28/2015 02/28/2015 Inactive ceftriaxone 1 gram solution for injection RxNorm: 2855319 Inj 02/27/2015 02/27/2015 Inactive ceftriaxone 1 gram solution for injection RxNorm: 1239402 Inj 02/26/2015 02/26/2015 Inactive ceftriaxone 1 gram solution for injection RxNorm: 6248617 Inj 02/25/2015 02/25/2015 Inactive phenazopyridine 200 mg tablet RxNorm: 0788938 1 Tablet(s) PO Q8 02/21/2015 02/20/2015 Inactive Cipro 500 mg tablet RxNorm: 454397 1 Tablet(s) PO BID 02/21/2015 02/20/2015 Inactive phenazopyridine 200 mg tablet RxNorm: 0395232 1 Tablet(s) PO Q8 02/21/2015 02/25/2015 Inactive Cipro 500 mg tablet RxNorm: 237455 1 Tablet(s) PO BID 02/21/2015 02/27/2015 Inactive lisinopril 10 mg tablet RxNorm: 389624 1 Tablet(s) PO BID 02/14/2015 06/12/2015 Inactive metoprolol succinate ER 50 mg tablet,extended release 24 hr RxNorm: 713962 3/4 Tablet(s) PO daily 02/11/2015 09/04/2015 Inactive Voltaren 1 % topical gel RxNorm: 633723 2 Gram(s) TOP QID use this on affected joints up to four times daily. 02/11/2015 03/12/2015 Inactive Probiotic oral RxNorm: 6205 oral No Start Date Active aspirin 81 mg tablet RxNorm: 178656 1 Tablet(s) PO daily No Start Date Active Super B-Complex tablet RxNorm: 1 Tablet(s) PO No Start Date Active Super-D3+ oral RxNorm: oral No Start Date Active Prilosec OTC 20 mg tablet,delayed release RxNorm: 619940 2 Tablet(s) PO QAM No Start Date Active Move Free Ultra 40 mg-10 mg-3.3 mg tablet RxNorm: 1 Tablet(s) PO daily No Start Date Active metoprolol tartrate 50 mg tablet RxNorm: 679206 1 Tablet(s) PO daily No Start Date 02/10/2015 Inactive lisinopril 10 mg tablet RxNorm: 299727 1 Tablet(s) PO BID No Start Date 02/13/2015 Inactive pravastatin 80 mg tablet RxNorm: 628560 1 Tablet(s) PO daily No Start Date 08/29/2015 Inactive Synthroid 100 mcg tablet RxNorm: 478483 1 Tablet(s) PO daily No Start Date 06/09/2015 Inactive Tylenol Arthritis 650 mg tablet,extended release RxNorm: 2335465 4 Tablet(s) PO daily No Start Date 09/09/2015 Inactive Medication Administered Medication Codes Instructions Start Date Status ceftriaxone 1 gram solution for injection RxNorm: 5133784 03/01/2015 No longer Active ceftriaxone 1 gram solution for injection RxNorm: 2718182 02/28/2015 No longer Active ceftriaxone 1 gram solution for injection RxNorm: 6992856 02/27/2015 No longer Active ceftriaxone 1 gram solution for injection RxNorm: 0980946 02/26/2015 No longer Active ceftriaxone 1 gram solution for injection RxNorm: 4808021 02/25/2015 No longer Active Immunizations Vaccine Codes Date Status Influenza CVX: 141 03/18/2016 completed Influenza CVX: 141 02/11/2015 completed Assessments Condition Codes Effective Dates Dizziness and giddiness ICD-10: R42 ICD-9: 780.4 09/28/2016 Other fatigue ICD-10: R53.83 ICD-9: 780.79 09/28/2016 Headache ICD-10: R51 ICD-9: 784.0 09/28/2016 Hypothyroidism, unspecified ICD-10: E03.9 ICD-9: 244.9 09/01/2016 Dysuria ICD-10: R30.0 ICD-9: 788.1 07/08/2016 Essential (primary) hypertension ICD-10: I10 ICD-9: 401.9 07/06/2016 Atrophy of thyroid (acquired) ICD-10: E03.4 ICD-9: 244.8 06/01/2016 Mixed hyperlipidemia ICD-10: E78.2 ICD-9: 272.2 06/01/2016 Acute laryngopharyngitis ICD-10: J06.0 ICD-9: 465.0 02/27/2016 Other specified hypothyroidism ICD-10: E03.8 ICD-9: 244.8 02/27/2016 Other allergic rhinitis ICD-10: J30.89 ICD-9: 477.8 02/27/2016 Encounter for screening mammogram for malignant neoplasm of breast ICD-10: Z12.31 ICD-9: V76.12 09/27/2015 Unspecified osteoarthritis, unspecified site ICD-10: M19.90 ICD-9: 715.90 05/14/2015 Urinary tract infection, site not specified ICD-10: N39.0 ICD-9: 599.0 03/01/2015 Reason For Visit Reason For Visit Effective Dates Notes headache 09/28/2016 hypertension 07/06/2016 hypertension 06/01/2016 fatigue 02/27/2016 hypertension 09/10/2015 hypertension 05/14/2015 hypertension 02/11/2015 Results Observation Observation Code Item Item Code Result Date Tsh Ord6 hTSH II 1.19 uIU/mL 09/02/2016 Free T4 Dvc890 FREE T4 0.97 ng/dL 09/02/2016 Comp Metabolic Tpb698 NA 137 mEq/L 06/01/2016 Comp Metabolic Qma046 K 4.1 mEq/L 06/01/2016 Comp Metabolic Eno045 CL 104 mEq/L 06/01/2016 Comp Metabolic Fcg441 CO2 25.0 mEq/L 06/01/2016 Comp Metabolic Vlw069 ANION GAP 12 06/01/2016 Comp Metabolic Vnn725 GLUCOSE 108 mg/dL 06/01/2016 Comp Metabolic Ggd522 Creat 0.8 mg/dL 06/01/2016 Comp Metabolic Qaa518 eGFR 80 ml/min/1.73m2 06/01/2016 Comp Metabolic Ymk090 BUN 15 mg/dL 06/01/2016 Comp Metabolic Gks535 B/C Ratio 20.0 Ratio 06/01/2016 Comp Metabolic Udp440 CALCIUM 9.1 mg/dL 06/01/2016 Comp Metabolic Kfn096 ALK PHOS 89 U/L 06/01/2016 Comp Metabolic Yxg552 AST(SGOT) 25 U/L 06/01/2016 Comp Metabolic Flh903 ALT(SGPT) 20 U/L 06/01/2016 Comp Metabolic Bnu288 BILI T 0.3 mg/dL 06/01/2016 Comp Metabolic Bis149 ALBUMIN 4.2 g/dL 06/01/2016 Comp Metabolic Etl003 TPRO 6.2 g/dL 06/01/2016 Comp Metabolic Bhl779 GLOB 2.0 g/dL 06/01/2016 Comp Metabolic Oti094 A/G Ratio 2.1 Ratio 06/01/2016 Comp Metabolic Duc735 Osmo 275 mOsmo 06/01/2016 Free T4 Sji521 FREE T4 0.94 ng/dL 06/01/2016 Tsh Ord6 [...] 31.1 pg 06/01/2016 Cbc With Differential Ord2 [place]% 8.4 % 06/01/2016 Cbc With Differential Ord2 [...] 2.96 K/ul 06/01/2016 Cbc With Differential Ord2 [place] ABS# 0.6 K/ul 06/01/2016 Cbc With Differential [...] 31.3 pg 02/27/2016 Cbc With Differential Ord2 [place]% 10.0 % 02/27/2016 Cbc With Differential Ord2 [...] 2.28 K/ul 02/27/2016 Cbc With Differential Ord2 [place] ABS# 0.9 K/ul 02/27/2016 Cbc With Differential Ord2 Eos ABS# 0.3 K/ul 02/27/2016 Cbc With Differential Ord2 Baso ABS# 0.1 K/ul 02/27/2016 Tsh Ord6 hTSH II 0.18 uIU/mL 02/27/2016 Free T4 Lxl259 FREE T4 1.17 ng/dL 02/27/2016 Comp Metabolic Bji933 NA 135 mEq/L 02/27/2016 Comp Metabolic Euf091 K 5.2 mEq/L 02/27/2016 Comp Metabolic Wmj460 CL 102 mEq/L 02/27/2016 Comp Metabolic Gha054 CO2 27.0 mEq/L 02/27/2016 Comp Metabolic Iis248 ANION GAP 11 02/27/2016 Comp Metabolic Jkv712 GLUCOSE 93 mg/dL 02/27/2016 Comp Metabolic Yyn532 Creat 0.7 mg/dL 02/27/2016 Comp Metabolic Mtt648 eGFR 91 ml/min/1.73m2 02/27/2016 Comp Metabolic Auu009 BUN 14 mg/dL 02/27/2016 Comp Metabolic Qhc885 B/C Ratio 20.9 Ratio 02/27/2016 Comp Metabolic Tld128 CALCIUM 9.4 mg/dL 02/27/2016 Comp Metabolic Ojt015 ALK PHOS 100 U/L 02/27/2016 Comp Metabolic Lpm565 AST(SGOT) 23 U/L 02/27/2016 Comp Metabolic Bbr037 ALT(SGPT) 24 U/L 02/27/2016 Comp Metabolic Mwj411 BILI T 0.2 mg/dL 02/27/2016 Comp Metabolic Www545 ALBUMIN 4.3 g/dL 02/27/2016 Comp Metabolic Nxe999 TPRO 6.3 g/dL 02/27/2016 Comp Metabolic Fwe657 GLOB 2.1 g/dL 02/27/2016 Comp Metabolic Nza754 A/G Ratio 2.1 Ratio 02/27/2016 Comp Metabolic Gez990 Osmo 270 mOsmo 02/27/2016 Free T4 Lbh916 FREE T4 1.03 ng/dL 05/10/2015 Comp Metabolic Mur068 NA 137 mEq/L 05/10/2015 Comp Metabolic Siu638 K 4.4 mEq/L 05/10/2015 Comp Metabolic Mfx577 CL 102 mEq/L 05/10/2015 Comp Metabolic Nua904 CO2 28.0 mEq/L 05/10/2015 Comp Metabolic Epk144 ANION GAP 11 05/10/2015 Comp Metabolic Emm821 GLUCOSE 108 mg/dL 05/10/2015 Comp Metabolic Tfv340 Creat 0.7 mg/dL 05/10/2015 Comp Metabolic Aew931 eGFR 86 ml/min/1.73m2 05/10/2015 Comp Metabolic Mau670 BUN 13 mg/dL 05/10/2015 Comp Metabolic Gfr385 B/C Ratio 18.3 Ratio 05/10/2015 Comp Metabolic Pll584 CALCIUM 9.4 mg/dL 05/10/2015 Comp Metabolic Gve123 ALK PHOS 94 U/L 05/10/2015 Comp Metabolic Hjq013 AST(SGOT) 22 U/L 05/10/2015 Comp Metabolic Ehs288 ALT(SGPT) 21 U/L 05/10/2015 Comp Metabolic Tum575 BILI T 0.3 mg/dL 05/10/2015 Comp Metabolic Jza577 ALBUMIN 3.9 g/dL 05/10/2015 Comp Metabolic Azn210 TPRO 6.1 g/dL 05/10/2015 Comp Metabolic Fgl689 GLOB 2.2 g/dL 05/10/2015 Comp Metabolic Twg210 A/G Ratio 1.7 Ratio 05/10/2015 Comp Metabolic Mqp053 Osmo 274 mOsmo 05/10/2015 Tsh Ord6 hTSH [...] 29.4 pg 05/10/2015 Cbc With Differential Ord2 [place]% 9.0 % 05/10/2015 Cbc With Differential Ord2 [...] 2.14 K/ul 05/10/2015 Cbc With Differential Ord2 [place] ABS# 0.5 K/ul 05/10/2015 Cbc With Differential [...] Ord30 C/HDL 3.8 Ratio 05/10/2015 Culture Urine [id number] URINE CULTURE SEE NOTES 02/25/2015 Culture Urine [id number] Continued Results 02/25/2015 Urine Culture Ucult Complete >100,000 col/ml aerobic growth sent to ref lab 02/22/2015 Free T4 Evt817 FREE T4 1.16 ng/dL 02/11/2015 Tsh Ord6 hTSH II 0.51 uIU/mL 02/11/2015 Review of Systems System Result Effective Dates Constitutional No recent illness 09/28/2016 Constitutional No [...] Codes Date URINALYSIS NONAUTO W/O SCOPE CPT-4: 53412Ygonvzq 07/08/2016 PRESCRIP TRANSMIT VIA ERX SY CPT-4: T0190Orrhqos 06/01/2016 PRESCRIP TRANSMIT VIA ERX SY CPT-4: B8956Ltpgiwk 02/27/2016 THER/PROPH/DIAG INJ SC/IM CPT-4: 42992Tijygal 03/01/2015 ROCEPHIN, PER 250 MG CPT-4: N1131Eqlqrpi 03/01/2015 THER/PROPH/DIAG INJ SC/IM CPT-4: 89466Qeesewv 02/28/2015 ROCEPHIN, PER 250 MG CPT-4: N7836Khsecgz 02/28/2015 THER/PROPH/DIAG INJ SC/IM CPT-4: 98553Nxfbnzf 02/27/2015 ROCEPHIN, PER 250 MG CPT-4: W3058Tztasex 02/27/2015 THER/PROPH/DIAG INJ SC/IM CPT-4: 87772Igqryej 02/26/2015 ROCEPHIN, PER 250 MG CPT-4: R7151Fzuvgzu 02/26/2015 THER/PROPH/DIAG INJ SC/IM CPT-4: 52606Lywlsxl 02/25/2015 ROCEPHIN, PER 250 MG CPT-4: B6031Mcwbcrp 02/25/2015 URINALYSIS NONAUTO W/O SCOPE CPT-4: 54132Akwfnft 02/21/2015 Vital Signs Date Vital 09/28/2016 Blood Pressure 1: 130/80 Code: 8480-6 BMI: 27.1 Code: 68647-8 Heart Rate 1: 80 bpm Height: 5'3" SpO2: 97% Weight: 153 lbs 07/06/2016 Blood Pressure 1: 162/72 Code: 8480-6 BMI: 27.6 Code: 44511-4 Heart Rate 1: 72 bpm Height: 5'3" SpO2: 98% Weight: 156 lbs 06/01/2016 Blood Pressure 1: 122/66 Code: 8480-6 BMI: 27.5 Code: 74129-1 Heart Rate 1: 73 bpm Height: 5'3" SpO2: 98% Weight: 155 lbs 8 oz 02/27/2016 Blood Pressure 1: 126/68 Code: 8480-6 BMI: 26.9 Code: 54368-5 Heart Rate 1: 70 bpm Height: 5'3" SpO2: 98% Weight: 152 lbs 09/10/2015 Blood Pressure 1: 130/70 Code: 8480-6 BMI: 26.9 Code: 16830-8 Heart Rate 1: 72 bpm Height: 5'3" SpO2: 97% Weight: 152 lbs 05/14/2015 Blood Pressure 1: 138/82 Code: 8480-6 BMI: 26.4 Code: 21714-9 Heart Rate 1: 75 bpm Height: 5'3" SpO2: 98% Weight: 149 lbs 02/11/2015 Blood Pressure 1: 128/72 Code: 8480-6 BMI: 25.5 Code: 81671-9 Heart Rate 1: 73 bpm Height: 5'3" SpO2: 94% Weight: 144 lbs Functional Status No Functional Status data History of Present Illness Symptom Name Status Result Effective Date Notes headache Location in the left occipital area [...] data Encounters Encounter Performer Location Codes Date 11648 EST. PATIENT, LEVEL IV Diagnosis: Headache[ICD10: R51] Diagnosis: Other fatigue[ICD10: R53.83] Diagnosis: Dizziness and giddiness[ICD10: R42] Bridget Cortez MD, [facility] CPT- 4: 71519 09/28/2016 28036 EST. PATIENT, LEVEL IV Diagnosis: Essential (primary) hypertension[ICD10: I10] Diagnosis: Headache[ICD10: R51] Bridget Cortez MD, [facility] CPT-4: 66112 07/06/2016 ([id number]) 58921 EST. PATIENT, LEVEL IV Diagnosis: Essential (primary) hypertension[ICD10: I10] Diagnosis: Atrophy of thyroid (acquired)[ICD10: E03.4] Diagnosis: Mixed hyperlipidemia[ICD10: E78.2] Elen Cortez MD, [facility] CPT- 4: 26870 06/01/2016 74213 EST. PATIENT, LEVEL IV Diagnosis: Acute laryngopharyngitis[ICD10: J06.0] Diagnosis: Other allergic rhinitis[ICD10: J30.89] Diagnosis: Other specified hypothyroidism[ICD10: E03.8] Diagnosis: Other fatigue[ICD10: R53.83] Bridget Cortez MD, [facility] CPT-4: 61115 02/27/2016 ([id number]) 08833 EST. PATIENT, LEVEL III Diagnosis: Essential (primary) hypertension[ICD10: I10] Diagnosis: Mixed hyperlipidemia[ICD10: E78.2] Elen Cortez MD, [facility] CPT- 4: 87828 09/10/2015 ([id number]) 71904 EST. PATIENT, LEVEL IV Diagnosis: Essential (primary) hypertension[ICD10: I10] Diagnosis: Hypothyroidism, unspecified[ICD10: E03.9] Diagnosis: Unspecified osteoarthritis, unspecified site[ICD10: M19.90] [facility] CPT-4: 32254 05/14/2015 ([id number]) OFFICE VISIT, NEW - LEVEL 4 Diagnosis: Essential (primary) hypertension[ICD10: I10] Diagnosis: Hypothyroidism, unspecified[ICD10: E03.9] Diagnosis: Unspecified osteoarthritis, unspecified site[ICD10: M19.90] Elen Cortez MD, [facility] CPT-4: 66777 02/11/2015 Plan of Care Planned Activity Notes Codes Status Date Visit Plan: Episodes of headache, dizziness, and [...] or concerns. 09/28/2016 [phone] [facility] ([facility] min) Complex 09/28/2016 Patient Education: Patient [...] the office next week for practitioner to review.The pt is to call for acute concerns. 07/06/2016 Appointment: [facility] [phone] [facility] (15 min) Moderate 07/06/2016 Patient Education: Patient Medication Summary Completed 07/06/2016 Visit Plan: Hypertension - well controlled - continue with current medications, continue with no added salt diet. Pt has been encouraged to exercise daily.The pt has been advised to call the office if there are any acute concerns about change in blood pressure readings at home.Hyperlipidemia - pt has been counseled about appropriate [...] and to assure normal liver response to medications.Hypothyroidism - pt with chronic hypothyroidism, continue with current medication, will monitor pt to signs or symptoms of lack of adequate supplementation. Pt is to continue with current dose of medication unless d irected otherwise. Check labs at regular intervals wither q 3 months or q 6 months based on previous levels of control.Rash - RX for nystatin cream to be started, call if not improving 06/01/2016 [facility] [phone] [facility] ([facility] min) Moderate 06/01/2016 Patient Education: Patient Medication Summary Completed 06/01/2016 Patient Education: Hypertension Completed 06/01/2016 Visit Plan: URI - Pt advised to increase fluids, vitamin C. Discussed natural and expected course of this diagnosis and need to alert me if symptoms do not follow expected course, or if any worse. RX sent to patient's pharmacy.Allergies - chronic - recommended pt to use allergy medication as prescribed. Pt has been counseled as to the appropriate use of the medication. Pt to call if allergy symptoms are not controlled with the medication.If using nasal spray, instructions as follows: Nasal spray- use twice daily, one spray per nostril twice daily, after 30 minutes, rinse out nose with saline spray.. Use opposite hand per nostril to spray in the nasal steroid allergy spray.Hypothyroidism - pt with chronic hypothyroidism, continue with current medication, will monitor pt to signs or symptoms of lack of adequate supplementation. Pt is to continue with current dose of medication unless directed otherwise. Check labs at regular intervals wither q 3 months or q 6 months based on previous levels of control.Fatigue - will check labs 02/27/2016 Appointment: [facility] [phone] [facility] ([facility] min) Complex 02/27/2016 Patient Education: Patient Medication Summary Completed 02/27/2016 Patient Education: Patient Medication Summary Completed 09/27/2015 Care Plan: SCREENING[facility]AMMOGRAPHYDIGITAL [facility] 89463-1 Pending 09/27/2015 Visit Plan: Hypertension - well controlled - continue with current medications, continue with no added salt diet. Pt has been encouraged to exercise daily.The pt has been advised to call the office if there are any acute concerns about change in blood pressure readings at home.Hyperlipidemia - pt has been counseled about appropriate [...] and to assure normal liver response to medications.Referral for colonoscopy when pt gives us the name of her preferred provider for the colonoscopy 09/10/2015 Appointment: [facility] [phone] [facility] (15 min) Moderate 09/10/2015 Patient Education: Patient Medication Summary Completed 09/10/2015 Referral: Dr. Ming Kessler WPtel: Referral Completed 05/22/2015 Visit Plan: Hypertension - well controlled - continue with current medications, continue with no added salt diet. Pt has been encouraged to exercise daily.The pt has been advised to call the office if there are any acute concerns about change in blood pressure readings at home.Referral to Dr. Kessler for eval for possible nerve site injections for post-herpetic neuralgiapt reports that if needed - she would prefer to go to the following orthopedic surgeon - Dr. Sanchez. 05/14/2015 Appointment: [facility] [phone] [facility] (15 min) Moderate 05/14/2015 Patient Education: Patient Medication Summary Completed 05/14/2015 Patient Education: Hypertension Completed 05/14/2015 Care Plan: Referral Order SNOMED-CT : [id number] Ordered 05/14/2015 Patient Education: Patient Medication Summary Completed 03/01/2015 Appointment: Nurse Visit 02/28/2015 Patient Education: Patient Medication Summary Completed 02/28/2015 Patient Education: Patient Medication Summary Completed 02/27/2015 Appointment: Nurse Visit 02/26/2015 Patient Education: Patient Medication Summary Completed 02/26/2015 Appointment: Injection 02/25/2015 Patient Education: Patient Medication Summary Completed 02/25/2015 Patient Education: Patient Medication Summary Completed 02/21/2015 Care Plan: URINALYSIS NONAUTO W/O SCOPE LOINC : 73720-3 Ordered 02/21/2015 Visit Plan: Hypertension - well controlled - continue with current medications, continue with no added salt diet. Pt has been encouraged to exercise daily.The pt has been advised to call the office if there are any acute concerns about change in blood pressure readings at home.Hypothyroidism - pt with chronic hypothyroidism, continue with current medication, will monitor pt to signs or symptoms of lack of adequate supplementation. Pt is to continue with current dose of medication unless directed otherwise. Check labs at regular intervals wither q 3 months or q 6 months based on previous levels of control.Arthritis- occasionally uncontrolled symptoms- recommend pt to use topical antiinflammatory as directed for pain control.Use tylenol for break through pain symptoms. 02/11/2015 Appointment: Elen Cortez WPtel: [address] [place], [place] [id number] New Patient 02/11/2015 Patient Education: Patient Medication Summary Completed 02/11/2015 Patient Education: Hypertension Completed 02/11/2015 Referral: Dr. Ming Kessler WPtel: Referral Appointment Requested Instructions Comment . URI [...]
--- OUTSIDE RECORDS SUMMARY | 2018-11-10 18:16 | XMS REPORT | CCD ---
Author Author [facility]en Cortez Organization [facility] Address [address] [place] [address] Phone Care Team Providers Care Deportation Examiner Name Role Phone PP Unavailable CCM Unavailable Summary Purpose Interface Exchange Insurance Providers Payer name Policy type / Coverage type Covered democrat ID Effective Begin Date Effective End Date WPS Medicare Part B Medicare Part B [id number] Unknown [facility] Life Insurance Medicare Part B [id number] Unknown Family history Mother Diagnosis Age At [...] spouses - 02/11/[address]: 912098966 Never smoker 02/11/2015 Alcohol history Unknown occasionally drinks alcohol 02/11/2015 Allergies, Adverse Reactions, Alerts Substance Reaction Codes Entered Date Inactivated Date Status ciprofloxacin rash RxNorm: 29059 02/26/2015 No Inactive Date Active Past Medical [...] Date Stop Date Status Fill Instructions pravastatin 40 mg tablet RxNorm: 826907 1 Tablet(s) PO BID 08/20/2016 08/14/2017 Active Cancel 80 mg tab lisinopril 20 mg tablet RxNorm: 192064 1 Tablet(s) PO BID 08/12/2016 01/08/2017 Active Synthroid 88 mcg tablet RxNorm: 753326 1 Tablet(s) PO TAKE ONE (1) TABLET BY MOUTH DAILY 07/28/2016 12/24/2016 Active decrease dose hydralazine 25 mg tablet RxNorm: 295060 1 Tablet(s) PO TID as needed for Systolic blood pressure over 170 07/06/2016 No Stop Date Active lisinopril 20 mg tablet RxNorm: 981460 1 Tablet(s) PO BID to replace your other lisinopril dose 07/06/2016 08/04/2016 Inactive lisinopril 10 mg tablet RxNorm: 971491 TAKE ONE TABLET BY MOUTH TWICE DAILY 06/10/2016 08/11/2016 Inactive Generic For:ZESTRIL 10 MG TABLET 06/09/2016 12:58:50 PM triamcinolone acetonide 0.1 % topical cream RxNorm: 4875189 1 Application TOP TID as needed 06/01/2016 No Stop Date Active nystatin 100,000 unit/gram topical cream RxNorm: 425449 1 Gram(s) TOP TID as needed 06/01/2016 No Stop Date Active metoprolol succinate ER 50 mg tablet,extended release 24 hr RxNorm: 474512 1 Tablet(s) PO daily 05/26/2016 12/21/2016 Active cetirizine 10 mg tablet RxNorm: 5332823 1 Tablet(s) PO daily 03/23/2016 10/18/2016 Active Synthroid 88 mcg tablet RxNorm: 944834 1 Tablet(s) PO TAKE ONE (1) TABLET BY MOUTH DAILY 03/06/2016 08/02/2016 Inactive Brand name only! Synthroid 88 mcg tablet RxNorm: 566412 1 Tablet(s) PO TAKE ONE (1) TABLET BY MOUTH DAILY 03/04/2016 03/05/2016 Inactive decrease dose cetirizine 10 mg tablet RxNorm: 5479171 1 Tablet(s) PO daily 02/27/2016 03/22/2016 Inactive amoxicillin 500 mg capsule RxNorm: 004406 1 Capsule(s) PO TID 02/27/2016 03/04/2016 Inactive lisinopril 10 mg tablet RxNorm: 617949 TAKE ONE TABLET BY MOUTH TWICE DAILY 02/06/2016 06/04/2016 Inactive Generic For:ZESTRIL 10 MG TABLET 02/06/2016 12:16:38 PM Synthroid 100 mcg tablet RxNorm: 542300 TAKE ONE (1) TABLET BY MOUTH DAILY 01/03/2016 03/03/2016 Inactive 01/03/2016 10:35:14 AM N O T I C E Last quantity doesn't match original quantity lisinopril 10 mg tablet RxNorm: 521876 1 Tablet(s) PO BID 10/04/2015 01/31/2016 Inactive Synthroid 100 mcg tablet RxNorm: 757692 1 Tablet(s) PO daily 10/04/2015 01/02/2016 Inactive metoprolol succinate ER 50 mg tablet,extended release 24 hr RxNorm: 019466 1 Tablet(s) PO daily 10/04/2015 04/30/2016 Inactive Tylenol Arthritis 650 mg tablet,extended release RxNorm: 4288108 2 Tablet(s) PO TID 09/10/2015 No Stop Date Active metoprolol succinate ER 50 mg tablet,extended release 24 hr RxNorm: 006533 1 Tablet(s) PO daily 09/05/2015 10/03/2015 Inactive pravastatin 80 mg tablet RxNorm: 564526 1 Tablet(s) PO QHS 08/30/2015 08/30/2015 Inactive pravastatin 40 mg tablet RxNorm: 521689 1 Tablet(s) PO BID 08/30/2015 08/29/2015 Inactive Cancel 80 mg tab pravastatin 40 mg tablet RxNorm: 045957 1 Tablet(s) PO BID 08/30/2015 08/19/2016 Inactive Cancel 80 mg tab lisinopril 10 mg tablet RxNorm: 665785 1 Tablet(s) PO BID 06/13/2015 08/11/2016 Inactive lisinopril 10 mg tablet RxNorm: 802085 1 Tablet(s) PO BID 06/13/2015 10/03/2015 Inactive Synthroid 100 mcg tablet RxNorm: 252847 1 Tablet(s) PO daily 06/10/2015 10/03/2015 Inactive ceftriaxone 1 gram solution for injection RxNorm: 8732895 Inj 03/01/2015 03/01/2015 Inactive ceftriaxone 1 gram solution for injection RxNorm: 3390905 Inj 02/28/2015 02/28/2015 Inactive ceftriaxone 1 gram solution for injection RxNorm: 1263710 Inj 02/27/2015 02/27/2015 Inactive ceftriaxone 1 gram solution for injection RxNorm: 4235926 Inj 02/26/2015 02/26/2015 Inactive ceftriaxone 1 gram solution for injection RxNorm: 3531151 Inj 02/25/2015 02/25/2015 Inactive phenazopyridine 200 mg tablet RxNorm: 1075725 1 Tablet(s) PO Q8 02/21/2015 02/20/2015 Inactive Cipro 500 mg tablet RxNorm: 424430 1 Tablet(s) PO BID 02/21/2015 02/20/2015 Inactive phenazopyridine 200 mg tablet RxNorm: 9211767 1 Tablet(s) PO Q8 02/21/2015 02/25/2015 Inactive Cipro 500 mg tablet RxNorm: 365971 1 Tablet(s) PO BID 02/21/2015 02/27/2015 Inactive lisinopril 10 mg tablet RxNorm: 670974 1 Tablet(s) PO BID 02/14/2015 06/12/2015 Inactive metoprolol succinate ER 50 mg tablet,extended release 24 hr RxNorm: 068557 3/4 Tablet(s) PO daily 02/11/2015 09/04/2015 Inactive Voltaren 1 % topical gel RxNorm: 684119 2 Gram(s) TOP QID use this on affected joints up to four times daily. 02/11/2015 03/12/2015 Inactive Probiotic oral RxNorm: 6205 oral No Start Date Active aspirin 81 mg tablet RxNorm: 287665 1 Tablet(s) PO daily No Start Date Active Super B-Complex tablet RxNorm: 1 Tablet(s) PO No Start Date Active Super-D3+ oral RxNorm: oral No Start Date Active Prilosec OTC 20 mg tablet,delayed release RxNorm: 701696 2 Tablet(s) PO QAM No Start Date Active Move Free Ultra 40 mg-10 mg-3.3 mg tablet RxNorm: 1 Tablet(s) PO daily No Start Date Active metoprolol tartrate 50 mg tablet RxNorm: 614065 1 Tablet(s) PO daily No Start Date 02/10/2015 Inactive lisinopril 10 mg tablet RxNorm: 593181 1 Tablet(s) PO BID No Start Date 02/13/2015 Inactive pravastatin 80 mg tablet RxNorm: 002693 1 Tablet(s) PO daily No Start Date 08/29/2015 Inactive Synthroid 100 mcg tablet RxNorm: 709285 1 Tablet(s) PO daily No Start Date 06/09/2015 Inactive Tylenol Arthritis 650 mg tablet,extended release RxNorm: 7594975 4 Tablet(s) PO daily No Start Date 09/09/2015 Inactive Medication Administered Medication Codes Instructions Start Date Status ceftriaxone 1 gram solution for injection RxNorm: 9822051 03/01/2015 No longer Active ceftriaxone 1 gram solution for injection RxNorm: 6813666 02/28/2015 No longer Active ceftriaxone 1 gram solution for injection RxNorm: 4997916 02/27/2015 No longer Active ceftriaxone 1 gram solution for injection RxNorm: 9010030 02/26/2015 No longer Active ceftriaxone 1 gram solution for injection RxNorm: 1499045 02/25/2015 No longer Active Immunizations Vaccine Codes [...] Mixed hyperlipidemia ICD-10: E78.2 ICD-9: 272.2 06/01/2016 Other allergic rhinitis ICD-10: J30.89 ICD-9: 477.8 02/27/2016 Acute laryngopharyngitis ICD-10: J06.0 ICD-9: 465.0 [...] hTSH II 1.19 uIU/mL 09/02/2016 Free T4 Fsg116 FREE T4 0.97 ng/dL 09/02/2016 Comp Metabolic Ums691 NA 137 mEq/L 06/01/2016 Comp Metabolic Lej577 K 4.1 mEq/L 06/01/2016 Comp Metabolic Hgl689 CL 104 mEq/L 06/01/2016 Comp Metabolic Qmx906 CO2 25.0 mEq/L 06/01/2016 Comp Metabolic Ywf398 ANION GAP 12 06/01/2016 Comp Metabolic Yar868 GLUCOSE 108 mg/dL 06/01/2016 Comp Metabolic Wtp221 Creat 0.8 mg/dL 06/01/2016 Comp Metabolic Xae929 eGFR 80 ml/min/1.73m2 06/01/2016 Comp Metabolic Poz913 BUN 15 mg/dL 06/01/2016 Comp Metabolic Vza354 B/C Ratio 20.0 Ratio 06/01/2016 Comp Metabolic Rbr396 CALCIUM 9.1 mg/dL 06/01/2016 Comp Metabolic Ina150 ALK PHOS 89 U/L 06/01/2016 Comp Metabolic Kvo266 AST(SGOT) 25 U/L 06/01/2016 Comp Metabolic Pca373 ALT(SGPT) 20 U/L 06/01/2016 Comp Metabolic Ydx361 BILI T 0.3 mg/dL 06/01/2016 Comp Metabolic Lds223 ALBUMIN 4.2 g/dL 06/01/2016 Comp Metabolic Lbm970 TPRO 6.2 g/dL 06/01/2016 Comp Metabolic Qui038 GLOB 2.0 g/dL 06/01/2016 Comp Metabolic Gij816 A/G Ratio 2.1 Ratio 06/01/2016 Comp Metabolic Bzt426 Osmo 275 mOsmo 06/01/2016 Free T4 Pxu896 FREE T4 0.94 ng/dL 06/01/2016 Tsh Ord6 [...] 31.1 pg 06/01/2016 Cbc With Differential Ord2 [place]% 8.4 % 06/01/2016 Cbc With Differential Ord2 [...] 2.96 K/ul 06/01/2016 Cbc With Differential Ord2 [place] ABS# 0.6 K/ul 06/01/2016 Cbc With Differential [...] 31.3 pg 02/27/2016 Cbc With Differential Ord2 [place]% 10.0 % 02/27/2016 Cbc With Differential Ord2 [...] 2.28 K/ul 02/27/2016 Cbc With Differential Ord2 [place] ABS# 0.9 K/ul 02/27/2016 Cbc With Differential Ord2 Eos ABS# 0.3 K/ul 02/27/2016 Cbc With Differential Ord2 Baso ABS# 0.1 K/ul 02/27/2016 Tsh Ord6 hTSH II 0.18 uIU/mL 02/27/2016 Free T4 Dhu962 FREE T4 1.17 ng/dL 02/27/2016 Comp Metabolic Pif927 NA 135 mEq/L 02/27/2016 Comp Metabolic Vcx906 K 5.2 mEq/L 02/27/2016 Comp Metabolic Ylg432 CL 102 mEq/L 02/27/2016 Comp Metabolic Drl526 CO2 27.0 mEq/L 02/27/2016 Comp Metabolic Ypr051 ANION GAP 11 02/27/2016 Comp Metabolic Ocg836 GLUCOSE 93 mg/dL 02/27/2016 Comp Metabolic Dpu107 Creat 0.7 mg/dL 02/27/2016 Comp Metabolic Xki629 eGFR 91 ml/min/1.73m2 02/27/2016 Comp Metabolic Cub829 BUN 14 mg/dL 02/27/2016 Comp Metabolic Szx183 B/C Ratio 20.9 Ratio 02/27/2016 Comp Metabolic Qaf267 CALCIUM 9.4 mg/dL 02/27/2016 Comp Metabolic Hth166 ALK PHOS 100 U/L 02/27/2016 Comp Metabolic Itf655 AST(SGOT) 23 U/L 02/27/2016 Comp Metabolic Tmb743 ALT(SGPT) 24 U/L 02/27/2016 Comp Metabolic Lli206 BILI T 0.2 mg/dL 02/27/2016 Comp Metabolic Pes120 ALBUMIN 4.3 g/dL 02/27/2016 Comp Metabolic Nuq546 TPRO 6.3 g/dL 02/27/2016 Comp Metabolic Cqv988 GLOB 2.1 g/dL 02/27/2016 Comp Metabolic Eyh814 A/G Ratio 2.1 Ratio 02/27/2016 Comp Metabolic Npb833 Osmo 270 mOsmo 02/27/2016 Free T4 Uzf162 FREE T4 1.03 ng/dL 05/10/2015 Comp Metabolic Yod248 NA 137 mEq/L 05/10/2015 Comp Metabolic Von562 K 4.4 mEq/L 05/10/2015 Comp Metabolic Xaw960 CL 102 mEq/L 05/10/2015 Comp Metabolic Dto804 CO2 28.0 mEq/L 05/10/2015 Comp Metabolic Rxu191 ANION GAP 11 05/10/2015 Comp Metabolic Wvp256 GLUCOSE 108 mg/dL 05/10/2015 Comp Metabolic Vep508 Creat 0.7 mg/dL 05/10/2015 Comp Metabolic Uvp821 eGFR 86 ml/min/1.73m2 05/10/2015 Comp Metabolic Vrq020 BUN 13 mg/dL 05/10/2015 Comp Metabolic Xox038 B/C Ratio 18.3 Ratio 05/10/2015 Comp Metabolic Uwa650 CALCIUM 9.4 mg/dL 05/10/2015 Comp Metabolic Njr867 ALK PHOS 94 U/L 05/10/2015 Comp Metabolic Ccu896 AST(SGOT) 22 U/L 05/10/2015 Comp Metabolic Sxo951 ALT(SGPT) 21 U/L 05/10/2015 Comp Metabolic Eob552 BILI T 0.3 mg/dL 05/10/2015 Comp Metabolic Gjv193 ALBUMIN 3.9 g/dL 05/10/2015 Comp Metabolic Lrw671 TPRO 6.1 g/dL 05/10/2015 Comp Metabolic Qeb168 GLOB 2.2 g/dL 05/10/2015 Comp Metabolic Kiw154 A/G Ratio 1.7 Ratio 05/10/2015 Comp Metabolic Gkk856 Osmo 274 mOsmo 05/10/2015 Tsh Ord6 hTSH [...] 29.4 pg 05/10/2015 Cbc With Differential Ord2 [place]% 9.0 % 05/10/2015 Cbc With Differential Ord2 [...] 2.14 K/ul 05/10/2015 Cbc With Differential Ord2 [place] ABS# 0.5 K/ul 05/10/2015 Cbc With Differential [...] Ord30 C/HDL 3.8 Ratio 05/10/2015 Culture Urine [id number] URINE CULTURE SEE NOTES 02/25/2015 Culture Urine [id number] Continued Results 02/25/2015 Urine Culture Ucult Complete >100,000 col/ml aerobic growth sent to ref lab 02/22/2015 Free T4 Fan781 FREE T4 1.16 ng/dL 02/11/2015 Tsh Ord6 [...] Codes Date URINALYSIS NONAUTO W/O SCOPE CPT-4: 86441Adkefdx 07/08/2016 PRESCRIP TRANSMIT VIA ERX SY CPT-4: D4374Ncivrgk 06/01/2016 PRESCRIP TRANSMIT VIA ERX SY CPT-4: N8809Azjpapl 02/27/2016 THER/PROPH/DIAG INJ SC/IM CPT-4: 62808Vbmhprh 03/01/2015 ROCEPHIN, PER 250 MG CPT-4: V1307Rcnxukg 03/01/2015 THER/PROPH/DIAG INJ SC/IM CPT-4: 34410Wzilpim 02/28/2015 ROCEPHIN, PER 250 MG CPT-4: P2664Hawxkmu 02/28/2015 THER/PROPH/DIAG INJ SC/IM CPT-4: 92033Eqfhqrv 02/27/2015 ROCEPHIN, PER 250 MG CPT-4: N3481Lyasltf 02/27/2015 THER/PROPH/DIAG INJ SC/IM CPT-4: 53486Stajnkx 02/26/2015 ROCEPHIN, PER 250 MG CPT-4: U8634Rfvnrhp 02/26/2015 THER/PROPH/DIAG INJ SC/IM CPT-4: 65733Lxmkxuh 02/25/2015 ROCEPHIN, PER 250 MG CPT-4: I2036Hrqgvuq 02/25/2015 URINALYSIS NONAUTO W/O SCOPE CPT-4: 63600Ameskkc 02/21/2015 Vital Signs Date Vital 09/28/2016 Blood Pressure 1: 130/80 Code: 8480-6 BMI: 27.1 Code: 65383-3 Heart Rate 1: 80 bpm Height: 5'3" SpO2: 97% Weight: 153 lbs 07/06/2016 Blood Pressure 1: 162/72 Code: 8480-6 BMI: 27.6 Code: 83960-0 Heart Rate 1: 72 bpm Height: 5'3" SpO2: 98% Weight: 156 lbs 06/01/2016 Blood Pressure 1: 122/66 Code: 8480-6 BMI: 27.5 Code: 08568-4 Heart Rate 1: 73 bpm Height: 5'3" SpO2: 98% Weight: 155 lbs 8 oz 02/27/2016 Blood Pressure 1: 126/68 Code: 8480-6 BMI: 26.9 Code: 25595-2 Heart Rate 1: 70 bpm Height: 5'3" SpO2: 98% Weight: 152 lbs 09/10/2015 Blood Pressure 1: 130/70 Code: 8480-6 BMI: 26.9 Code: 13115-5 Heart Rate 1: 72 bpm Height: 5'3" SpO2: 97% Weight: 152 lbs 05/14/2015 Blood Pressure 1: 138/82 Code: 8480-6 BMI: 26.4 Code: 93352-6 Heart Rate 1: 75 bpm Height: 5'3" SpO2: 98% Weight: 149 lbs 02/11/2015 Blood Pressure 1: 128/72 Code: 8480-6 BMI: 25.5 Code: 90823-8 Heart Rate 1: 73 bpm Height: 5'3" [...] data Encounters Encounter Performer Location Codes Date 85902 EST. PATIENT, LEVEL IV Diagnosis: Headache[ICD10: R51] Diagnosis: Other fatigue[ICD10: R53.83] Diagnosis: Dizziness and giddiness[ICD10: R42] [facility] CPT- 4: 18644 09/28/2016 90902 EST. PATIENT, LEVEL IV Diagnosis: Essential (primary) hypertension[ICD10: I10] Diagnosis: Headache[ICD10: R51] [facility] MD, [facility] CPT-4: 78373 07/06/2016 ([id number]) 19554 EST. PATIENT, LEVEL IV Diagnosis: Essential (primary) hypertension[ICD10: I10] Diagnosis: Atrophy of thyroid (acquired)[ICD10: E03.4] Diagnosis: Mixed hyperlipidemia[ICD10: E78.2] Elen Cortez MD, [facility] CPT- 4: 86367 06/01/2016 41608 EST. PATIENT, LEVEL IV Diagnosis: Acute laryngopharyngitis[ICD10: J06.0] Diagnosis: Other allergic rhinitis[ICD10: J30.89] Diagnosis: Other specified hypothyroidism[ICD10: E03.8] Diagnosis: Other fatigue[ICD10: R53.83] Bridget Cortez MD, [facility] CPT-4: 19435 02/27/2016 ([id number]) 26256 EST. PATIENT, LEVEL III Diagnosis: Essential (primary) hypertension[ICD10: I10] Diagnosis: Mixed hyperlipidemia[ICD10: E78.2] Elen Cortez MD, [facility] CPT- 4: 85174 09/10/2015 ([id number]) 60003 EST. PATIENT, LEVEL IV Diagnosis: Essential (primary) hypertension[ICD10: I10] Diagnosis: Hypothyroidism, unspecified[ICD10: E03.9] Diagnosis: Unspecified osteoarthritis, unspecified site[ICD10: M19.90] Elen Cortez MD, [facility] CPT-4: 02323 05/14/2015 ([id number]) OFFICE VISIT, NEW - LEVEL 4 Diagnosis: Essential (primary) hypertension[ICD10: I10] Diagnosis: Hypothyroidism, unspecified[ICD10: E03.9] Diagnosis: Unspecified osteoarthritis, unspecified site[ICD10: M19.90] [facility] CPT-4: 06768 02/11/2015 Plan of Care Planned Activity Notes [...] with any changes, questions, or concerns. 09/28/2016 Patient Education: Patient Medication Summary Completed [...] acute concerns. 07/06/2016 Appointment: Bridget Velazco WPtel: [address] [place], [place] [id number] (15 min) Moderate 07/06/2016 Patient Education: Patient [...] not improving 06/01/2016 [facility] [phone] [facility] ([facility] min) Moderate 06/01/2016 Patient Education: [...] Completed 09/27/2015 Care Plan: SCREENINGMAMMOGRAPHYDIGITAL LOINC : 46339-4 Pending 09/27/2015 Visit Plan: Hypertension - well [...] colonoscopy 09/10/2015 Appointment: [facility] [phone] [id number] [place] (15 min) Moderate 09/10/2015 [...] surgeon - Dr. Sanchez. 05/14/2015 Appointment: [facility]rez [facility]el[facility] [phone] [id number] [place] (15 min) Moderate 05/14/2015 Patient Education: Patient Medication Summary Completed 05/14/2015 Patient Education: Hypertension Completed 05/14/2015 Care Plan: Referral Order SNOMED-CT : [id number] Ordered 05/14/2015 Patient Education: Patient Medication Summary Completed 03/01/2015 Appointment: Nurse Visit 02/28/2015 Patient Education: Patient Medication Summary Completed 02/28/2015 Patient Education: Patient Medication Summary Completed 02/27/2015 Appointment: Nurse Visit 02/26/2015 Patient Education: Patient Medication Summary Completed 02/26/2015 Appointment: Injection 02/25/2015 Patient Education: Patient Medication Summary Completed 02/25/2015 Patient Education: Patient Medication Summary Completed 02/21/2015 Care Plan: URINALYSIS NONAUTO W/O SCOPE LOINC : 66619-1 Ordered 02/21/2015 Visit Plan: Hypertension - well [...] symptoms. 02/11/2015 App[facility]ment: [facility] [phone] [facility] New Patient 02/11/2015 Patient Education: Patient [...]
--- OUTSIDE RECORDS SUMMARY | 2018-11-10 18:17 | XMS REPORT | CCD ---
Author Author [facility]en [facility] Organization [facility] Address [address] [place] [address] Phone Care Team Providers Care Communication Assistant Name Role Phone PP Unavailable CCM Unavailable Summary Purpose Interface Exchange Insurance Providers Payer name Policy type / Coverage type Covered green party ID Effective Begin Date Effective End Date WPS Medicare Part B Medicare Part B [id number] Unknown [facility] Life Insurance Medicare Part B [id number] Unknown Family history Mother Diagnosis Age At [...] spouses - 02/11/[address]: [id number] Never smoker 02/11/2015 Alcohol history Unknown occasionally drinks alcohol 02/11/2015 Allergies, Adverse Reactions, Alerts Substance Reaction Codes Entered Date Inactivated Date Status ciprofloxacin rash RxNorm: 85159 02/26/2015 No Inactive Date Active Past Medical History Illness Codes Condition Status Onset Date Resolved Date Hypothyroidism, unspecified ICD-9: 244.9 ICD-10: E03.9 Active 02/26/2016 Unknown Dysuria ICD-9: 788.1 ICD-10: R30.0 Active 02/20/2015 Unknown Essential (primary) hypertension ICD-9: 401.9 ICD-10: I10 Active 09/09/2015 Unknown Headache ICD-9: 784.0 ICD-10: R51 Active 07/06/2016 Unknown 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 Active 06/01/2016 Unknown Mixed hyperlipidemia ICD- 9: 272.2 ICD-10: E78.2 Active 09/09/2015 Unknown Acute laryngopharyngitis ICD-9: 465.0 ICD-10: J06.0 Active 02/26/2016 Unknown Other allergic rhinitis ICD-9: 477.8 ICD-10: J30.89 Active 02/26/2016 Unknown Other fatigue ICD-9: 780.79 ICD-10: R53.83 Active 02/26/2016 Unknown Other specified hypothyroidism ICD-9: [...] hypertension ICD-9: 401.9 ICD-10: I10 09/09/2015 Active Headache ICD-9: 784.0 ICD-10: R51 07/06/2016 Active 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 06/01/2016 Active Mixed hyperlipidemia ICD- 9: 272.2 ICD-10: E78.2 09/09/2015 Active Acute laryngopharyngitis ICD-9: 465.0 ICD-10: J06.0 02/26/2016 Active Other allergic rhinitis ICD-9: 477.8 ICD-10: J30.89 02/26/2016 Active Other fatigue ICD-9: 780.79 ICD-10: R53.83 02/26/2016 Active Other specified hypothyroidism ICD-9: 244.8 [...] Fill Instructions pravastatin 40 mg tablet RxNorm: 149066 1 Tablet(s) PO BID 08/20/2016 08/14/2017 Active Cancel 80 mg tab lisinopril 20 mg tablet RxNorm: 217007 1 Tablet(s) PO BID 08/12/2016 01/08/2017 Active Synthroid 88 mcg tablet RxNorm: 542459 1 Tablet(s) PO TAKE ONE (1) TABLET BY MOUTH DAILY 07/28/2016 12/24/2016 Active decrease dose hydralazine 25 mg tablet RxNorm: 366939 1 Tablet(s) PO TID as needed for Systolic blood pressure over 170 07/06/2016 No Stop Date Active lisinopril 20 mg tablet RxNorm: 132095 1 Tablet(s) PO BID to replace your other lisinopril dose 07/06/2016 08/04/2016 Inactive lisinopril 10 mg tablet RxNorm: 410769 TAKE ONE TABLET BY MOUTH TWICE DAILY 06/10/2016 08/11/2016 Inactive Generic For:ZESTRIL 10 MG TABLET 06/09/2016 12:58:50 PM triamcinolone acetonide 0.1 % topical cream RxNorm: 9319134 1 Application TOP TID as needed 06/01/2016 No Stop Date Active nystatin 100,000 unit/gram topical cream RxNorm: 349750 1 Gram(s) TOP TID as needed 06/01/2016 No Stop Date Active metoprolol succinate ER 50 mg tablet,extended release 24 hr RxNorm: 502440 1 Tablet(s) PO daily 05/26/2016 12/21/2016 Active cetirizine 10 mg tablet RxNorm: 6418208 1 Tablet(s) PO daily 03/23/2016 10/18/2016 Active Synthroid 88 mcg tablet RxNorm: 634300 1 Tablet(s) PO TAKE ONE (1) TABLET BY MOUTH DAILY 03/06/2016 08/02/2016 Inactive Brand name only! Synthroid 88 mcg tablet RxNorm: 117938 1 Tablet(s) PO TAKE ONE (1) TABLET BY MOUTH DAILY 03/04/2016 03/05/2016 Inactive decrease dose cetirizine 10 mg tablet RxNorm: 5965393 1 Tablet(s) PO daily 02/27/2016 03/22/2016 Inactive amoxicillin 500 mg capsule RxNorm: 995566 1 Capsule(s) PO TID 02/27/2016 03/04/2016 Inactive lisinopril 10 mg tablet RxNorm: 802231 TAKE ONE TABLET BY MOUTH TWICE DAILY 02/06/2016 06/04/2016 Inactive Generic For:ZESTRIL 10 MG TABLET 02/06/2016 12:16:38 PM Synthroid 100 mcg tablet RxNorm: 185415 TAKE ONE (1) TABLET BY MOUTH DAILY 01/03/2016 03/03/2016 Inactive 01/03/2016 10:35:14 AM N O T I C E Last quantity doesn't match original quantity lisinopril 10 mg tablet RxNorm: 137064 1 Tablet(s) PO BID 10/04/2015 01/31/2016 Inactive Synthroid 100 mcg tablet RxNorm: 004997 1 Tablet(s) PO daily 10/04/2015 01/02/2016 Inactive metoprolol succinate ER 50 mg tablet,extended release 24 hr RxNorm: 845862 1 Tablet(s) PO daily 10/04/2015 04/30/2016 Inactive Tylenol Arthritis 650 mg tablet,extended release RxNorm: 6800765 2 Tablet(s) PO TID 09/10/2015 No Stop Date Active metoprolol succinate ER 50 mg tablet,extended release 24 hr RxNorm: 204974 1 Tablet(s) PO daily 09/05/2015 10/03/2015 Inactive pravastatin 80 mg tablet RxNorm: 835468 1 Tablet(s) PO QHS 08/30/2015 08/30/2015 Inactive pravastatin 40 mg tablet RxNorm: 930220 1 Tablet(s) PO BID 08/30/2015 08/29/2015 Inactive Cancel 80 mg tab pravastatin 40 mg tablet RxNorm: 193106 1 Tablet(s) PO BID 08/30/2015 08/19/2016 Inactive Cancel 80 mg tab lisinopril 10 mg tablet RxNorm: 703139 1 Tablet(s) PO BID 06/13/2015 08/11/2016 Inactive lisinopril 10 mg tablet RxNorm: 764706 1 Tablet(s) PO BID 06/13/2015 10/03/2015 Inactive Synthroid 100 mcg tablet RxNorm: 002731 1 Tablet(s) PO daily 06/10/2015 10/03/2015 Inactive ceftriaxone 1 gram solution for injection RxNorm: 6333344 Inj 03/01/2015 03/01/2015 Inactive ceftriaxone 1 gram solution for injection RxNorm: 2218516 Inj 02/28/2015 02/28/2015 Inactive ceftriaxone 1 gram solution for injection RxNorm: 6277312 Inj 02/27/2015 02/27/2015 Inactive ceftriaxone 1 gram solution for injection RxNorm: 1307416 Inj 02/26/2015 02/26/2015 Inactive ceftriaxone 1 gram solution for injection RxNorm: 0031524 Inj 02/25/2015 02/25/2015 Inactive phenazopyridine 200 mg tablet RxNorm: 5585970 1 Tablet(s) PO Q8 02/21/2015 02/20/2015 Inactive Cipro 500 mg tablet RxNorm: 948074 1 Tablet(s) PO BID 02/21/2015 02/20/2015 Inactive phenazopyridine 200 mg tablet RxNorm: 1590624 1 Tablet(s) PO Q8 02/21/2015 02/25/2015 Inactive Cipro 500 mg tablet RxNorm: 672932 1 Tablet(s) PO BID 02/21/2015 02/27/2015 Inactive lisinopril 10 mg tablet RxNorm: 917554 1 Tablet(s) PO BID 02/14/2015 06/12/2015 Inactive metoprolol succinate ER 50 mg tablet,extended release 24 hr RxNorm: 520218 3/4 Tablet(s) PO daily 02/11/2015 09/04/2015 Inactive Voltaren 1 % topical gel RxNorm: 397059 2 Gram(s) TOP QID use this on affected joints up to four times daily. 02/11/2015 03/12/2015 Inactive Probiotic oral RxNorm: 6205 oral No Start Date Active aspirin 81 mg tablet RxNorm: 212542 1 Tablet(s) PO daily No Start Date Active Super B-Complex tablet RxNorm: 1 Tablet(s) PO No Start Date Active Super-D3+ oral RxNorm: oral No Start Date Active Prilosec OTC 20 mg tablet,delayed release RxNorm: 230754 2 Tablet(s) PO QAM No Start Date Active Move Free Ultra 40 mg-10 mg-3.3 mg tablet RxNorm: 1 Tablet(s) PO daily No Start Date Active metoprolol tartrate 50 mg tablet RxNorm: 885200 1 Tablet(s) PO daily No Start Date 02/10/2015 Inactive lisinopril 10 mg tablet RxNorm: 412647 1 Tablet(s) PO BID No Start Date 02/13/2015 Inactive pravastatin 80 mg tablet RxNorm: 109836 1 Tablet(s) PO daily No Start Date 08/29/2015 Inactive Synthroid 100 mcg tablet RxNorm: 331480 1 Tablet(s) PO daily No Start Date 06/09/2015 Inactive Tylenol Arthritis 650 mg tablet,extended release RxNorm: 2014192 4 Tablet(s) PO daily No Start Date 09/09/2015 Inactive Medication Administered Medication Codes Instructions Start Date Status ceftriaxone 1 gram solution for injection RxNorm: 2575882 03/01/2015 No longer Active ceftriaxone 1 gram solution for injection RxNorm: 6328472 02/28/2015 No longer Active ceftriaxone 1 gram solution for injection RxNorm: 1758730 02/27/2015 No longer Active ceftriaxone 1 gram solution for injection RxNorm: 6665939 02/26/2015 No longer Active ceftriaxone 1 gram solution for injection RxNorm: 9661492 02/25/2015 No longer Active Immunizations Vaccine Codes Date Status Influenza CVX: 141 03/18/2016 completed Influenza CVX: 141 02/11/2015 completed Assessments Condition Codes Effective Dates Hypothyroidism, unspecified ICD-10: E03.9 ICD-9: 244.9 09/01/2016 Dysuria ICD-10: R30.0 ICD-9: 788.1 07/08/2016 Essential (primary) hypertension ICD-10: I10 ICD-9: 401.9 07/06/2016 Headache ICD-10: R51 ICD-9: 784.0 07/06/2016 Atrophy of thyroid (acquired) ICD-10: E03.4 ICD-9: 244.8 06/01/2016 Mixed hyperlipidemia ICD-10: E78.2 ICD-9: 272.2 06/01/2016 Other allergic rhinitis ICD-10: J30.89 ICD-9: 477.8 02/27/2016 Acute laryngopharyngitis ICD-10: J06.0 ICD-9: 465.0 02/27/2016 Other fatigue ICD-10: R53.83 ICD-9: 780.79 02/27/2016 Other specified hypothyroidism ICD-10: E03.8 ICD-9: 244.8 02/27/2016 Encounter for screening mammogram for malignant neoplasm of breast ICD-10: Z12.31 ICD-9: V76.12 09/27/2015 Unspecified osteoarthritis, unspecified site ICD-10: M19.90 ICD-9: 715.90 05/14/2015 Urinary tract infection, site not specified ICD-10: N39.0 ICD-9: 599.0 03/01/2015 Reason For Visit Reason For Visit Effective Dates Notes hypertension 07/06/2016 hypertension 06/01/2016 fatigue 02/27/2016 hypertension 09/10/2015 hypertension 05/14/2015 hypertension 02/11/2015 Results Observation Observation Code Item Item Code Result Date Tsh Ord6 hTSH II 1.19 uIU/mL 09/02/2016 Free T4 Ruo387 FREE T4 0.97 ng/dL 09/02/2016 Comp Metabolic Pht621 NA 137 mEq/L 06/01/2016 Comp Metabolic Ouv538 K 4.1 mEq/L 06/01/2016 Comp Metabolic Crs010 CL 104 mEq/L 06/01/2016 Comp Metabolic Ork781 CO2 25.0 mEq/L 06/01/2016 Comp Metabolic Bjx464 ANION GAP 12 06/01/2016 Comp Metabolic Wln828 GLUCOSE 108 mg/dL 06/01/2016 Comp Metabolic Ylw561 Creat 0.8 mg/dL 06/01/2016 Comp Metabolic Jxg404 eGFR 80 ml/min/1.73m2 06/01/2016 Comp Metabolic Mmm446 BUN 15 mg/dL 06/01/2016 Comp Metabolic Ury533 B/C Ratio 20.0 Ratio 06/01/2016 Comp Metabolic Cxa444 CALCIUM 9.1 mg/dL 06/01/2016 Comp Metabolic Mcg373 ALK PHOS 89 U/L 06/01/2016 Comp Metabolic Ejc913 AST(SGOT) 25 U/L 06/01/2016 Comp Metabolic Aap936 ALT(SGPT) 20 U/L 06/01/2016 Comp Metabolic Nra994 BILI T 0.3 mg/dL 06/01/2016 Comp Metabolic Qdf325 ALBUMIN 4.2 g/dL 06/01/2016 Comp Metabolic Zod111 TPRO 6.2 g/dL 06/01/2016 Comp Metabolic Kao037 GLOB 2.0 g/dL 06/01/2016 Comp Metabolic Irs159 A/G Ratio 2.1 Ratio 06/01/2016 Comp Metabolic Yap474 Osmo 275 mOsmo 06/01/2016 Free T4 Iwo055 FREE T4 0.94 ng/dL 06/01/2016 Tsh Ord6 [...] 32.2 pg 06/01/2016 Cbc With Differential Ord2 Baso% 0.8 [...] 37.6 % 02/27/2016 Cbc With Differential Ord2 Lymph% 26.8 % 02/27/2016 Cbc With Differential Ord2 MCV 95.7 fl 02/27/2016 Cbc With Differential Ord2 [place]% 10.0 % 02/27/2016 Cbc With Differential Ord2 MCH 31.3 pg 02/27/2016 Cbc With Differential Ord2 MCHC 32.7 pg 02/27/2016 Cbc With Differential Ord2 Eos% 3.3 % 02/27/2016 Cbc With Differential Ord2 Baso% 0.7 [...] hTSH II 0.18 uIU/mL 02/27/2016 Free T4 Ade378 FREE T4 1.17 ng/dL 02/27/2016 Comp Metabolic Vqm603 NA 135 mEq/L 02/27/2016 Comp Metabolic Tav274 K 5.2 mEq/L 02/27/2016 Comp Metabolic Csw471 CL 102 mEq/L 02/27/2016 Comp Metabolic Cug820 CO2 27.0 mEq/L 02/27/2016 Comp Metabolic Ffm571 ANION GAP 11 02/27/2016 Comp Metabolic Fbs489 GLUCOSE 93 mg/dL 02/27/2016 Comp Metabolic Mir365 Creat 0.7 mg/dL 02/27/2016 Comp Metabolic Yvp594 eGFR 91 ml/min/1.73m2 02/27/2016 Comp Metabolic Bwi403 BUN 14 mg/dL 02/27/2016 Comp Metabolic Qyr367 B/C Ratio 20.9 Ratio 02/27/2016 Comp Metabolic Dif108 CALCIUM 9.4 mg/dL 02/27/2016 Comp Metabolic Puv221 ALK PHOS 100 U/L 02/27/2016 Comp Metabolic Zlk102 AST(SGOT) 23 U/L 02/27/2016 Comp Metabolic Bke365 ALT(SGPT) 24 U/L 02/27/2016 Comp Metabolic Fss440 BILI T 0.2 mg/dL 02/27/2016 Comp Metabolic Ooq914 ALBUMIN 4.3 g/dL 02/27/2016 Comp Metabolic Yel986 TPRO 6.3 g/dL 02/27/2016 Comp Metabolic Tap529 GLOB 2.1 g/dL 02/27/2016 Comp Metabolic Clh714 A/G Ratio 2.1 Ratio 02/27/2016 Comp Metabolic Iwf036 Osmo 270 mOsmo 02/27/2016 Free T4 Lkm906 FREE T4 1.03 ng/dL 05/10/2015 Comp Metabolic Gzy393 NA 137 mEq/L 05/10/2015 Comp Metabolic Ked607 K 4.4 mEq/L 05/10/2015 Comp Metabolic Fbb887 CL 102 mEq/L 05/10/2015 Comp Metabolic Duj818 CO2 28.0 mEq/L 05/10/2015 Comp Metabolic Iyh087 ANION GAP 11 05/10/2015 Comp Metabolic Vrh798 GLUCOSE 108 mg/dL 05/10/2015 Comp Metabolic Rac832 Creat 0.7 mg/dL 05/10/2015 Comp Metabolic Wmn408 eGFR 86 ml/min/1.73m2 05/10/2015 Comp Metabolic Raa545 BUN 13 mg/dL 05/10/2015 Comp Metabolic Gic058 B/C Ratio 18.3 Ratio 05/10/2015 Comp Metabolic Dht075 CALCIUM 9.4 mg/dL 05/10/2015 Comp Metabolic Jkg800 ALK PHOS 94 U/L 05/10/2015 Comp Metabolic Aeo924 AST(SGOT) 22 U/L 05/10/2015 Comp Metabolic Rbo673 ALT(SGPT) 21 U/L 05/10/2015 Comp Metabolic Qhk061 BILI T 0.3 mg/dL 05/10/2015 Comp Metabolic Sas248 ALBUMIN 3.9 g/dL 05/10/2015 Comp Metabolic Hwo455 TPRO 6.1 g/dL 05/10/2015 Comp Metabolic Hko242 GLOB 2.2 g/dL 05/10/2015 Comp Metabolic Oxn441 A/G Ratio 1.7 Ratio 05/10/2015 Comp Metabolic Gdp535 Osmo 274 mOsmo 05/10/2015 Tsh Ord6 hTSH II 0.59 uIU/mL 05/10/2015 Cbc With Differential Ord2 WBC 5.77 K/ul 05/10/2015 Cbc With Differential Ord2 RBC 4.25 M/ul 05/10/2015 Cbc With Differential Ord2 HGB 12.5 g/dl 05/10/2015 Cbc With Differential Ord2 HCT 39.3 % 05/10/2015 Cbc With Differential Ord2 Neut% 48.3 % 05/10/2015 Cbc With Differential Ord2 Lymph% [...] Ord30 C/HDL 3.8 Ratio 05/10/2015 Culture Urine [id number] URINE CULTURE SEE NOTES 02/25/2015 Culture Urine [id number] Continued Results 02/25/2015 Urine Culture Ucult Complete >100,000 col/ml aerobic growth sent to ref lab 02/22/2015 Free T4 Olx993 FREE T4 1.16 ng/dL 02/11/2015 Tsh Ord6 hTSH II 0.51 uIU/mL 02/11/2015 Review of Systems System Result Effective Dates Constitutional No recent illness 07/06/2016 Constitutional No [...] Codes Date URINALYSIS NONAUTO W/O SCOPE CPT-4: 46575Fupeera 07/08/2016 PRESCRIP TRANSMIT VIA ERX SY CPT-4: Q9106Pvlvkrg 06/01/2016 PRESCRIP TRANSMIT VIA ERX SY CPT-4: Y9960Tksehyh 02/27/2016 THER/PROPH/DIAG INJ SC/IM CPT-4: 37883Ouavtix 03/01/2015 ROCEPHIN, PER 250 MG CPT-4: Y5579Dvrvwro 03/01/2015 THER/PROPH/DIAG INJ SC/IM CPT-4: 46947Zyfntic 02/28/2015 ROCEPHIN, PER 250 MG CPT-4: M2311Vuuecqv 02/28/2015 THER/PROPH/DIAG INJ SC/IM CPT-4: 56062Ksdgplp 02/27/2015 ROCEPHIN, PER 250 MG CPT-4: R0948Ygmirxc 02/27/2015 THER/PROPH/DIAG INJ SC/IM CPT-4: 57896Jolemul 02/26/2015 ROCEPHIN, PER 250 MG CPT-4: U0648Hxlsvmr 02/26/2015 THER/PROPH/DIAG INJ SC/IM CPT-4: 96180Cfhrimy 02/25/2015 ROCEPHIN, PER 250 MG CPT-4: R4962Wwlwipt 02/25/2015 URINALYSIS NONAUTO W/O SCOPE CPT-4: 70448Yppxyaz 02/21/2015 Vital Signs Date Vital 07/06/2016 Blood Pressure 1: 162/72 Code: 8480-6 BMI: 27.6 Code: 50473-1 Heart Rate 1: 72 bpm Height: 5'3" SpO2: 98% Weight: 156 lbs 06/01/2016 Blood Pressure 1: 122/66 Code: 8480-6 BMI: 27.5 Code: 84498-6 Heart Rate 1: 73 bpm Height: 5'3" SpO2: 98% Weight: 155 lbs 8 oz 02/27/2016 Blood Pressure 1: 126/68 Code: 8480-6 BMI: 26.9 Code: 53924-0 Heart Rate 1: 70 bpm Height: 5'3" SpO2: 98% Weight: 152 lbs 09/10/2015 Blood Pressure 1: 130/70 Code: 8480-6 BMI: 26.9 Code: 07764-5 Heart Rate 1: 72 bpm Height: 5'3" SpO2: 97% Weight: 152 lbs 05/14/2015 Blood Pressure 1: 138/82 Code: 8480-6 BMI: 26.4 Code: 70234-1 Heart Rate 1: 75 bpm Height: 5'3" SpO2: 98% Weight: 149 lbs 02/11/2015 Blood Pressure 1: 128/72 Code: 8480-6 BMI: 25.5 Code: 76656-0 Heart Rate 1: 73 bpm Height: 5'3" SpO2: 94% Weight: 144 lbs Functional Status No Functional Status data History of Present Illness Symptom Name Status Result Effective Date Notes hypertension Quality intermittent 07/06/2016 None hypertension Onset [...] data Encounters Encounter Performer Location Codes Date 16679 EST. PATIENT, LEVEL IV Diagnosis: Essential (primary) hypertension[ICD10: I10] Diagnosis: Headache[ICD10: R51] Bridget Cortez MD, [facility] CPT-4: 83083 07/06/2016 ([id number]) 21792 EST. PATIENT, LEVEL IV Diagnosis: Essential (primary) hypertension[ICD10: I10] Diagnosis: Atrophy of thyroid (acquired)[ICD10: E03.4] Diagnosis: Mixed hyperlipidemia[ICD10: E78.2] Elen Cortez MD, [facility] CPT- 4: 17764 06/01/2016 20528 EST. PATIENT, LEVEL IV Diagnosis: Acute laryngopharyngitis[ICD10: J06.0] Diagnosis: Other allergic rhinitis[ICD10: J30.89] Diagnosis: Other specified hypothyroidism[ICD10: E03.8] Diagnosis: Other fatigue[ICD10: R53.83] [facility] CPT-4: 13332 02/27/2016 ([id number]) 09271 EST. PATIENT, LEVEL III Diagnosis: Essential (primary) hypertension[ICD10: I10] Diagnosis: Mixed hyperlipidemia[ICD10: E78.2] [facility] CPT- 4: 08424 09/10/2015 ([id number]) 49299 EST. PATIENT, LEVEL IV Diagnosis: Essential (primary) hypertension[ICD10: I10] Diagnosis: Hypothyroidism, unspecified[ICD10: E03.9] Diagnosis: Unspecified osteoarthritis, unspecified site[ICD10: M19.90] [facility] CPT-4: 58179 05/14/2015 ([id number]) OFFICE VISIT, NEW - LEVEL 4 Diagnosis: Essential (primary) hypertension[ICD10: I10] Diagnosis: Hypothyroidism, unspecified[ICD10: E03.9] Diagnosis: Unspecified osteoarthritis, unspecified site[ICD10: M19.90] Elen Cortez MD, [facility] CPT-4: 74447 02/11/2015 Plan of Care Planned Activity Notes Codes Status Date Patient Education: Patient Medication Summary Completed 09/01/2016 Appointment: Megan Castellano 07/08/2016 Patient Education: Patient Medication Summary Completed [...] acute concerns. 07/06/2016 Appointment: Bridget Velazco WPtel: [address] [place], [place] [id number] (15 min) Moderate 07/06/2016 Patient Education: Patient [...] improving 06/01/2016 App[facility]ment: [facility] [phone] [facility] [place] (15 min) Moderate 06/01/2016 Patient Education: Patient [...] labs 02/27/2016 Appointment: [phone] [place] (30 min) Complex 02/27/2016 Patient Education: Patient Medication Summary Completed 02/27/2016 Patient Education: Patient Medication Summary Completed 09/27/2015 Care Plan: [facility] 83892-1 Pending 09/27/2015 Visit Plan: Hypertension - well [...] the colonoscopy 09/10/2015 Appointment: Elen Cortez WPtel: [facility] [place] [place] (15 min) Moderate 09/10/2015 Patient Education: [...] Sanchez. 05/14/2015 Appointment: Elen Cortez WPtel: [facility] [place] [place] (15 min) Moderate 05/14/2015 Patient Education: Patient Medication Summary Completed 05/14/2015 Patient Education: Hypertension Completed 05/14/2015 Care Plan: Referral Order SNOMED-CT : [id number] Ordered 05/14/2015 Patient Education: Patient Medication Summary Completed 03/01/2015 Appointment: Nurse Visit 02/28/2015 Patient Education: Patient Medication Summary Completed 02/28/2015 Patient Education: Patient Medication Summary Completed 02/27/2015 Appointment: Nurse Visit 02/26/2015 Patient Education: Patient Medication Summary Completed 02/26/2015 Appointment: Injection 02/25/2015 Patient Education: Patient Medication Summary Completed 02/25/2015 Patient Education: Patient Medication Summary Completed 02/21/2015 Care Plan: URINALYSIS NONAUTO W/O SCOPE [facility] : 48623-3 Ordered 02/21/2015 Visit Plan: Hypertension - well [...] pain symptoms. 02/11/2015 Appointment: Elen Cortez WPtel: [address] [place], [place] [id number] New Patient 02/11/2015 Patient Education: Patient Medication [...]
--- OUTSIDE RECORDS SUMMARY | 2018-11-10 18:21 | XMS REPORT | CCD ---
Author Author [facility] Organization [facility] Address [address] [place] [address] Phone Care Team Providers Care Psychological Science Professor Name Role Phone PP Unavailable CCM Unavailable Summary Purpose Interface Exchange Insurance Providers Payer name Policy type / Coverage type Covered democrat ID Effective Begin Date Effective End Date WPS Medicare Part B Medicare Part B [id number] Unknown [place] [employer] Insurance Medicare Part B [id number] Unknown Family history Mother Diagnosis Age At [...] spouses - 02/11/[address]: 699143592 Never smoker 02/11/2015 Alcohol history Unknown occasionally drinks alcohol 02/11/2015 Allergies, Adverse Reactions, Alerts Substance Reaction Codes Entered Date Inactivated Date Status CODEINE RxNorm: 2670 02/11/2015 No Inactive Date Active allergy Unknown 12/23/2016 No Inactive Date Active ciprofloxacin rash, RxNorm: 96015 02/26/2015 No Inactive Date Active hydrocodone Unknown [...] Start Date Stop Date Status Fill Instructions Flonase Allergy Relief 50 mcg/actuation nasal spray,suspension RxNorm: 4262913 1 [place] NASAL as needed 08/04/2018 No Stop Date Active cefdinir 300 mg capsule RxNorm: 466019 1 Capsule(s) PO BID 07/20/2018 07/29/2018 Inactive Pyridium 200 mg tablet RxNorm: 3037237 1 Tablet(s) PO TID 07/20/2018 07/24/2018 Inactive meclizine 25 mg tablet RxNorm: 504552 1 Tablet(s) TID as needed 07/14/2018 No Stop Date Active dizziness levocetirizine 5 mg tablet RxNorm: 702201 1 Tablet(s) PO daily 05/30/2018 08/27/2018 Active nystatin 100,000 unit/gram topical cream RxNorm: 675286 1 Gram(s) TOP TID as needed 05/30/2018 No Stop Date Active metoprolol succinate ER 50 mg tablet,extended release 24 hr RxNorm: 787996 1 Tablet(s) daily may take 1 extra tab daily if systolic bp elevated 05/03/2018 11/28/2018 Active metoprolol succinate ER 50 mg tablet,extended release 24 hr RxNorm: 450227 Tablet(s) Tablet(s) TAKE 1 TABLET BY MOUTH DAILY 05/03/2018 05/02/2018 Inactive lisinopril 20 mg tablet RxNorm: 576786 TAKE 1 TABLET BY MOUTH TWICE DAILY 04/22/2018 09/18/2018 Active Generic For:*PRINIVIL 20 MG TABLET 04/22/2018 9:57:59 AM levocetirizine 5 mg tablet RxNorm: 547336 1 Tablet(s) PO daily 04/22/2018 04/21/2018 Inactive Singulair 10 mg tablet RxNorm: 377872 1 Tablet(s) PO QHS 04/22/2018 04/21/2018 Inactive Singulair 10 mg tablet RxNorm: 434146 1 Tablet(s) PO QHS 04/22/2018 05/12/2018 Inactive levocetirizine 5 mg tablet RxNorm: 659956 1 Tablet(s) PO daily 04/22/2018 05/21/2018 Inactive ceftriaxone 500 mg solution for injection RxNorm: 7774667 Inj 04/08/2018 04/08/2018 Inactive ceftriaxone 500 mg solution for injection RxNorm: 6582304 Inj 04/07/2018 04/07/2018 Inactive ceftriaxone 500 mg solution for injection RxNorm: 3002562 Inj 04/06/2018 04/06/2018 Inactive ketorolac 60 mg/2 mL intramuscular solution RxNorm: 9525966 Milliliter(s) IM 04/05/2018 04/05/2018 Inactive ceftriaxone 500 mg solution for injection RxNorm: 7959855 Inj 04/05/2018 04/05/2018 Inactive ondansetron 4 mg disintegrating tablet RxNorm: 324346 1 Tablet(s) PO TID as needed nausea 04/04/2018 No Stop Date Active ketorolac 30 mg/mL injection solution RxNorm: 487460 2 Milliliter(s) Inj 04/04/2018 04/04/2018 Inactive ceftriaxone 500 mg solution for injection RxNorm: 9929856 Inj 04/04/2018 04/04/2018 Inactive nystatin 100,000 unit/mL oral suspension RxNorm: 007176 4 Milliliter(s) PO QID 04/01/2018 04/05/2018 Inactive doxycycline hyclate 100 mg tablet RxNorm: 2076781 1 Tablet(s) PO BID 04/01/2018 04/10/2018 Inactive amoxicillin 500 mg capsule RxNorm: 018042 1 Capsule(s) PO TID 03/24/2018 04/02/2018 Inactive prednisone 10 mg tablet RxNorm: 093961 1 Tablet(s) PO UD 6 pills on day 1 and 2 and then decrease by one pill every other day until prescription is done 03/24/2018 05/12/2018 Inactive metoprolol succinate ER 50 mg tablet,extended release 24 hr RxNorm: 147890 Tablet(s) TAKE 1 TABLET BY MOUTH DAILY 03/21/2018 05/02/2018 Inactive PLEASE SEND REFILL REQUESTS ELECTRONICALLY!! Synthroid 88 mcg tablet RxNorm: 811309 TAKE 1 TABLET BY MOUTH DAILY 03/08/2018 08/04/2018 Inactive 03/07/2018 11:21:21 AM pravastatin 80 mg tablet RxNorm: 932865 Tablet(s) 1 Tablet(s) PO daily 03/01/2018 02/23/2019 Active Kenalog 40 mg/mL suspension for injection RxNorm: 2567858 Milliliter(s) Inj 12/24/2017 12/24/2017 Inactive cetirizine 10 mg tablet RxNorm: 0397004 TAKE 1 TABLET BY MOUTH DAILY 12/21/2017 04/19/2018 Inactive Generic For:*ZYRTEC 10 MG TABLET 12/21/2017 10:08:05 AM Synthroid 88 mcg tablet RxNorm: 823652 TAKE 1 TABLET BY MOUTH DAILY 12/07/2017 03/06/2018 Inactive 12/06/2017 11:46:49 AM Lipitor 80 mg tablet RxNorm: 878528 1 Tablet(s) PO daily 11/29/2017 02/28/2018 Inactive pravastatin 80 mg tablet RxNorm: 385572 1 Tablet(s) PO daily 11/29/2017 11/29/2017 Inactive Lipitor 80 mg tablet RxNorm: 395483 1 Tablet(s) PO daily 11/29/2017 11/28/2017 Inactive lisinopril 20 mg tablet RxNorm: 316484 TAKE 1 TABLET BY MOUTH TWICE DAILY 11/23/2017 04/21/2018 Inactive Generic For:*PRINIVIL 20 MG TABLET 11/23/2017 11:29:44 AM Macrobid 100 mg capsule RxNorm: 095632 1 Capsule(s) PO BID 11/19/2017 11/25/2017 Inactive Macrobid 100 mg capsule RxNorm: 733140 1 Capsule(s) PO BID 11/19/2017 11/18/2017 Inactive Lomotil 2.5 mg-0.025 mg tablet RxNorm: 7297319 1 -2 Tablet(s) PO TID as needed 11/19/2017 11/25/2017 Inactive Lomotil 2.5 mg-0.025 mg tablet RxNorm: 8748853 1 -2 Tablet(s) PO TID as needed 11/19/2017 11/18/2017 Inactive Pyridium 200 mg tablet RxNorm: 0060047 1 Tablet(s) PO TID as needed 11/18/2017 11/22/2017 Inactive Augmentin 500 mg-125 mg tablet RxNorm: 439251 1 Tablet(s) PO TID 11/18/2017 11/27/2017 Inactive Keflex 500 mg capsule RxNorm: 296455 1 Capsule(s) PO TID 11/03/2017 11/09/2017 Inactive Denavir 1 % topical cream RxNorm: 844753 1 TOP TID as needed cold sores 11/01/2017 01/29/2018 Inactive Denavir 1 % topical cream RxNorm: 577673 1 TOP TID as needed cold sores 11/01/2017 10/31/2017 Inactive Synthroid 88 mcg tablet RxNorm: 230877 TAKE 1 TABLET BY MOUTH DAILY 09/29/2017 11/27/2017 Inactive 09/29/2017 12:58:07 PM pravastatin 80 mg tablet RxNorm: 909476 1 Tablet(s) PO daily 08/31/2017 08/30/2017 Inactive pravastatin 80 mg tablet RxNorm: 489695 1 Tablet(s) PO daily 08/31/2017 11/28/2017 Inactive Synthroid 88 mcg tablet RxNorm: 300678 TAKE 1 TABLET BY MOUTH DAILY 08/30/2017 09/28/2017 Inactive 08/30/2017 10:53:26 AM metoprolol succinate ER 50 mg tablet,extended release 24 hr RxNorm: 558203 Tablet(s) TAKE 1 TABLET BY MOUTH DAILY 08/17/2017 03/14/2018 Inactive PLEASE SEND REFILL REQUESTS ELECTRONICALLY!! lisinopril 20 mg tablet RxNorm: 133270 TAKE 1 TABLET BY MOUTH TWICE DAILY 06/18/2017 11/14/2017 Inactive Generic For:*PRINIVIL 20 MG TABLET 06/18/2017 1:31:00 PM Synthroid 88 mcg tablet RxNorm: 437786 TAKE 1 TABLET BY MOUTH DAILY 05/24/2017 08/21/2017 Inactive 05/24/2017 2:13:21 PM cetirizine 10 mg tablet RxNorm: 4353184 1 Tablet(s) PO daily 05/17/2017 12/12/2017 Inactive Zithromax Z-Russell 250 mg capsule RxNorm: 607291 1 Capsule(s) PO 04/02/2017 04/05/2017 Inactive Zithromax Z-Russell 250 mg tablet RxNorm: 136099 1 Tablet(s) PO 04/02/2017 04/01/2017 Inactive Zithromax Z-Russell 250 mg capsule RxNorm: 011860 1 Capsule(s) PO 04/02/2017 04/01/2017 Inactive Zithromax Z-Russell 250 mg tablet RxNorm: 862671 1 Tablet(s) PO 04/02/2017 04/06/2017 Inactive Ventolin HFA 90 mcg/actuation aerosol inhaler RxNorm: 014411 2 INH QID as needed - for the first 3 days inhale at least two puffs three times daily, then use as needed for shortness of breath 04/01/2017 04/30/2017 Inactive Keflex 500 mg capsule RxNorm: 147698 1 Capsule(s) PO TID 04/01/2017 04/01/2017 Inactive meclizine 25 mg tablet RxNorm: 700450 Tablet(s) 1 Tablet(s) PO Q6 PRN 03/25/2017 03/24/2017 Inactive dizziness Kenalog 40 mg/mL suspension for injection RxNorm: 7778199 1 Milliliter(s) Inj 03/25/2017 03/25/2017 Inactive meclizine 25 mg tablet RxNorm: 302162 1 Tablet(s) PO Q6 PRN 1 Tablet(s) PO Q6 PRN 03/25/2017 05/12/2018 Inactive dizziness meclizine 25 mg tablet RxNorm: 225768 1 Tablet(s) PO Q6 PRN 02/15/2017 03/24/2017 Inactive dizziness lisinopril 20 mg tablet RxNorm: 124900 1 Tablet(s) PO BID 01/15/2017 06/13/2017 Inactive metoprolol succinate ER 50 mg tablet,extended release 24 hr RxNorm: 159965 TAKE 1 TABLET BY MOUTH DAILY 01/07/2017 08/04/2017 Inactive Generic For:TOPROL XL 50MG TAB 01/07/2017 12:38:23 PM Synthroid 88 mcg tablet RxNorm: 339261 TAKE 1 TABLET BY MOUTH DAILY 12/25/2016 05/23/2017 Inactive 12/25/2016 9:47:08 AM Zithromax Z-Russlel 250 mg tablet RxNorm: 333707 Tablet(s) PO UD 12/23/2016 03/24/2017 Inactive meclizine 25 mg tablet RxNorm: 133117 1 Tablet(s) PO Q6 PRN 12/08/2016 12/20/2016 Inactive dizziness Kenalog 40 mg/mL suspension for injection RxNorm: 4549429 Milliliter(s) Inj 12/08/2016 12/08/2016 Inactive meloxicam 15 mg tablet RxNorm: 970905 1 Tablet(s) PO daily 11/30/2016 12/20/2016 Inactive cetirizine 10 mg tablet RxNorm: 5106084 1 Tablet(s) PO daily 10/23/2016 05/16/2017 Inactive pravastatin 40 mg tablet RxNorm: 103684 1 Tablet(s) PO BID 08/20/2016 08/30/2017 Inactive Cancel 80 mg tab lisinopril 20 mg tablet RxNorm: 224528 1 Tablet(s) PO BID 08/12/2016 12/22/2016 Inactive Synthroid 88 mcg tablet RxNorm: 078892 1 Tablet(s) PO TAKE ONE (1) TABLET BY MOUTH DAILY 07/28/2016 12/24/2016 Inactive decrease dose hydralazine 25 mg tablet RxNorm: 826430 1 Tablet(s) PO TID as needed for Systolic blood pressure over 170 07/06/2016 12/20/2016 Inactive lisinopril 20 mg tablet RxNorm: 189726 1 Tablet(s) PO BID to replace your other lisinopril dose 07/06/2016 08/04/2016 Inactive lisinopril 10 mg tablet RxNorm: 792942 TAKE ONE TABLET BY MOUTH TWICE DAILY 06/10/2016 08/11/2016 Inactive Generic For:ZESTRIL 10 MG TABLET 06/09/2016 12:58:50 PM triamcinolone acetonide 0.1 % topical cream RxNorm: 7872990 1 Application TOP TID as needed 06/01/2016 No Stop Date Active nystatin 100,000 unit/gram topical cream RxNorm: 946224 1 Gram(s) TOP TID as needed 06/01/2016 05/29/2018 Inactive metoprolol succinate ER 50 mg tablet,extended release 24 hr RxNorm: 755252 1 Tablet(s) PO daily 05/26/2016 12/21/2016 Inactive cetirizine 10 mg tablet RxNorm: 5929534 1 Tablet(s) PO daily 03/23/2016 10/18/2016 Inactive Synthroid 88 mcg tablet RxNorm: 545964 1 Tablet(s) PO TAKE ONE (1) TABLET BY MOUTH DAILY 03/06/2016 03/07/2018 Inactive Brand name only! Synthroid 88 mcg tablet RxNorm: 046846 1 Tablet(s) PO TAKE ONE (1) TABLET BY MOUTH DAILY 03/04/2016 03/05/2016 Inactive decrease dose cetirizine 10 mg tablet RxNorm: 8328386 1 Tablet(s) PO daily 02/27/2016 03/22/2016 Inactive amoxicillin 500 mg capsule RxNorm: 328375 1 Capsule(s) PO TID 02/27/2016 03/04/2016 Inactive lisinopril 10 mg tablet RxNorm: 049598 TAKE ONE TABLET BY MOUTH TWICE DAILY 02/06/2016 06/04/2016 Inactive Generic For:ZESTRIL 10 MG TABLET 02/06/2016 12:16:38 PM Synthroid 100 mcg tablet RxNorm: 688164 TAKE ONE (1) TABLET BY MOUTH DAILY 01/03/2016 03/03/2016 Inactive 01/03/2016 10:35:14 AM N O T I C E Last quantity doesn't match original quantity lisinopril 10 mg tablet RxNorm: 090684 1 Tablet(s) PO BID 10/04/2015 01/31/2016 Inactive Synthroid 100 mcg tablet RxNorm: 988717 1 Tablet(s) PO daily 10/04/2015 01/02/2016 Inactive metoprolol succinate ER 50 mg tablet,extended release 24 hr RxNorm: 918376 1 Tablet(s) PO daily 10/04/2015 04/30/2016 Inactive Tylenol Arthritis 650 mg tablet,extended release RxNorm: 7848282 2 Tablet(s) PO TID 09/10/2015 No Stop Date Active metoprolol succinate ER 50 mg tablet,extended release 24 hr RxNorm: 799209 1 Tablet(s) PO daily 09/05/2015 10/03/2015 Inactive pravastatin 80 mg tablet RxNorm: 341047 1 Tablet(s) PO QHS 08/30/2015 08/30/2015 Inactive pravastatin 40 mg tablet RxNorm: 690781 1 Tablet(s) PO BID 08/30/2015 08/29/2015 Inactive Cancel 80 mg tab pravastatin 40 mg tablet RxNorm: 111595 1 Tablet(s) PO BID 08/30/2015 08/19/2016 Inactive Cancel 80 mg tab lisinopril 10 mg tablet RxNorm: 360951 1 Tablet(s) PO BID 06/13/2015 08/11/2016 Inactive lisinopril 10 mg tablet RxNorm: 177463 1 Tablet(s) PO BID 06/13/2015 10/03/2015 Inactive Synthroid 100 mcg tablet RxNorm: 986838 1 Tablet(s) PO daily 06/10/2015 10/03/2015 Inactive ceftriaxone 1 gram solution for injection RxNorm: 7578858 Inj 03/01/2015 03/01/2015 Inactive ceftriaxone 1 gram solution for injection RxNorm: 6071096 Inj 02/28/2015 02/28/2015 Inactive ceftriaxone 1 gram solution for injection RxNorm: 3102244 Inj 02/27/2015 02/27/2015 Inactive ceftriaxone 1 gram solution for injection RxNorm: 3896957 Inj 02/26/2015 02/26/2015 Inactive ceftriaxone 1 gram solution for injection RxNorm: 6352365 Inj 02/25/2015 02/25/2015 Inactive phenazopyridine 200 mg tablet RxNorm: 5496040 1 Tablet(s) PO Q8 02/21/2015 02/20/2015 Inactive Cipro 500 mg tablet RxNorm: 447046 1 Tablet(s) PO BID 02/21/2015 02/20/2015 Inactive phenazopyridine 200 mg tablet RxNorm: 5497177 1 Tablet(s) PO Q8 02/21/2015 02/25/2015 Inactive Cipro 500 mg tablet RxNorm: 800089 1 Tablet(s) PO BID 02/21/2015 02/27/2015 Inactive lisinopril 10 mg tablet RxNorm: 012018 1 Tablet(s) PO BID 02/14/2015 06/12/2015 Inactive metoprolol succinate ER 50 mg tablet,extended release 24 hr RxNorm: 648122 3/4 Tablet(s) PO daily 02/11/2015 09/04/2015 Inactive Voltaren 1 % topical gel RxNorm: 754428 2 Gram(s) TOP QID use this on affected joints up to four times daily. 02/11/2015 03/12/2015 Inactive Probiotic oral RxNorm: 6205 oral No Start Date Active aspirin 81 mg tablet RxNorm: 515048 1 Tablet(s) PO daily No Start Date Active Super B-Complex tablet RxNorm: 1 Tablet(s) PO No Start Date Active Super-D3+ oral RxNorm: oral No Start Date Active Prilosec OTC 20 mg tablet,delayed release RxNorm: 867650 2 Tablet(s) PO QAM No Start Date Active Move Free Ultra 40 mg-10 mg-3.3 mg tablet RxNorm: 1 Tablet(s) PO daily No Start Date Active metoprolol tartrate 50 mg tablet RxNorm: 753694 1 Tablet(s) PO daily No Start Date 02/10/2015 Inactive lisinopril 10 mg tablet RxNorm: 466335 1 Tablet(s) PO BID No Start Date 02/13/2015 Inactive pravastatin 80 mg tablet RxNorm: 396804 1 Tablet(s) PO daily No Start Date 08/29/2015 Inactive Flonase Allergy Relief 50 mcg/actuation nasal spray,suspension RxNorm: 4457617 1 [place] NASAL BID No Start Date 05/12/2018 Inactive Synthroid 100 mcg tablet RxNorm: 919398 1 Tablet(s) PO daily No Start Date 06/09/2015 Inactive lisinopril 40 mg tablet RxNorm: 049676 1 Tablet(s) PO BID No Start Date 02/28/2018 Inactive Tylenol Arthritis 650 mg tablet,extended release RxNorm: 7059254 4 Tablet(s) PO daily No Start Date 09/09/2015 Inactive Flonase Allergy Relief 50 mcg/actuation nasal spray,suspension RxNorm: 2320324 1 [place] NASAL as needed No Start Date 08/03/2018 Inactive Medication Administered Medication Codes Instructions Start Date Status ceftriaxone 500 mg solution for injection RxNorm: 0946012 04/08/2018 No longer Active ceftriaxone 500 mg solution for injection RxNorm: 9606510 04/07/2018 No longer Active ceftriaxone 500 mg solution for injection RxNorm: 5974431 04/06/2018 No longer Active ceftriaxone 500 mg solution for injection RxNorm: 8132764 04/05/2018 No longer Active ketorolac 60 mg/2 mL intramuscular solution RxNorm: 6634426 Milliliter 04/05/2018 No longer Active ceftriaxone 500 mg solution for injection RxNorm: 9364835 04/04/2018 No longer Active ketorolac 30 mg/mL injection solution RxNorm: 825615 2Milliliter 04/04/2018 No longer Active Kenalog 40 mg/mL suspension for injection RxNorm: 0128573 Milliliter 12/24/2017 No longer Active Kenalog 40 mg/mL suspension for injection RxNorm: 0628785 1Milliliter 03/25/2017 No longer Active Kenalog 40 mg/mL suspension for injection RxNorm: 6601611 Milliliter 12/08/2016 No longer Active ceftriaxone 1 gram solution for injection RxNorm: 1031771 03/01/2015 No longer Active ceftriaxone 1 gram solution for injection RxNorm: 3396149 02/28/2015 No longer Active ceftriaxone 1 gram solution for injection RxNorm: 1143244 02/27/2015 No longer Active ceftriaxone 1 gram solution for injection RxNorm: 7143552 02/26/2015 No longer Active ceftriaxone 1 gram solution for injection RxNorm: 4676840 02/25/2015 No longer Active Immunizations Vaccine Codes [...] sent to ref lab 07/21/2018 Free T4 Kbj151 FREE T4 1.07 ng/dL 04/04/2018 Tsh Ord6 TSH (3rd IS) 1.93 uIU/mL 04/04/2018 Urine Culture Ucult Preliminary NO Growth Day 1 03/28/2018 Urine Culture Ucult Complete NO Growth Day 2 03/28/2018 Urine Culture Ucult Complete >100,000 col/ml aerobic growth sent to ref lab 11/19/2017 B12 Ugz115 B12 712.00 pg/ml 09/28/2017 C-Reactive Protein Qnt Crqnt CRP 0.1 mg/dl 09/23/2017 Comp Metabolic Yop671 NA 139 mEq/L 09/23/2017 Comp Metabolic Ovp458 K 4.8 mEq/L 09/23/2017 Comp Metabolic Ntc371 CL 104 mEq/L 09/23/2017 Comp Metabolic Vcq788 CO2 28.0 mEq/L 09/23/2017 Comp Metabolic Rvz551 ANION GAP 12 09/23/2017 Comp Metabolic Ywg266 GLUCOSE 92 mg/dL 09/23/2017 Comp Metabolic Ejb260 Creat 0.7 mg/dL 09/23/2017 Comp Metabolic Qhn459 eGFR 91 ml/min/1.73m2 09/23/2017 Comp Metabolic Xaf080 BUN 11 mg/dL 09/23/2017 Comp Metabolic Eju964 B/C Ratio 16.4 Ratio 09/23/2017 Comp Metabolic Dcq269 CALCIUM 9.0 mg/dL 09/23/2017 Comp Metabolic Mfs832 ALK PHOS 76 U/L 09/23/2017 Comp Metabolic Dsf919 AST(SGOT) 24 U/L 09/23/2017 Comp Metabolic Dvt335 ALT(SGPT) 21 U/L 09/23/2017 Comp Metabolic Uqy937 BILI T 0.3 mg/dL 09/23/2017 Comp Metabolic Rdx693 ALBUMIN 4.1 g/dL 09/23/2017 Comp Metabolic Dyi980 TPRO 6.2 g/dL 09/23/2017 Comp Metabolic Xyv906 GLOB 2.1 g/dL 09/23/2017 Comp Metabolic Bxk763 A/G Ratio 1.9 Ratio 09/23/2017 Comp Metabolic Zlq498 Osmo 277 mOsmo 09/23/2017 Sed Rate Ord21 ESR 3 mm/hr 09/22/2017 Vitamin D 25 Oh Dyr2891 VITAMIN D, 25 HYDROXY 78.79 ng/mL 09/22/2017 [...] 30.6 pg 09/22/2017 Cbc With Differential Ord2 [place]% 10.5 % 09/22/2017 Cbc With Differential Ord2 [...] 2.37 K/ul 09/22/2017 Cbc With Differential Ord2 [place] ABS# 0.9 K/ul 09/22/2017 Cbc With Differential Ord2 Eos ABS# 0.2 K/ul 09/22/2017 Cbc With Differential Ord2 Baso ABS# 0.0 K/ul 09/22/2017 Free T4 Ooz007 FREE T4 0.99 ng/dL 09/22/2017 %Hba1C Ctz096 % HbA1c 76861- 6 6.0 % 12/10/2016 %Hba1C Sty759 Gluc Ave 126 mg/dL 12/10/2016 Tsh Ord6 hTSH II 0.89 uIU/mL 12/09/2016 Free T4 Pxy580 FREE T4 0.99 ng/dL 12/09/2016 Comp Metabolic Ncb822 NA 138 mEq/L 12/09/2016 Comp Metabolic Myy187 K 5.2 mEq/L 12/09/2016 Comp Metabolic Lvv561 CL 104 mEq/L 12/09/2016 Comp Metabolic Hvr038 CO2 29.0 mEq/L 12/09/2016 Comp Metabolic Pbp864 ANION GAP 10 12/09/2016 Comp Metabolic Kpl358 GLUCOSE 135 mg/dL 12/09/2016 Comp Metabolic Oiv661 Creat 0.8 mg/dL 12/09/2016 Comp Metabolic Wbv392 eGFR 79 ml/min/1.73m2 12/09/2016 Comp Metabolic Yoo330 BUN 18 mg/dL 12/09/2016 Comp Metabolic Isg461 B/C Ratio 23.7 Ratio 12/09/2016 Comp Metabolic Sgs995 CALCIUM 9.5 mg/dL 12/09/2016 Comp Metabolic Vhk769 ALK PHOS 73 U/L 12/09/2016 Comp Metabolic Jcq699 AST(SGOT) 24 U/L 12/09/2016 Comp Metabolic Sbh937 ALT(SGPT) 20 U/L 12/09/2016 Comp Metabolic Fkn024 BILI T 0.3 mg/dL 12/09/2016 Comp Metabolic Xsk430 ALBUMIN 4.3 g/dL 12/09/2016 Comp Metabolic Dew348 TPRO 6.4 g/dL 12/09/2016 Comp Metabolic Gjt049 GLOB 2.1 g/dL 12/09/2016 Comp Metabolic Ufz321 A/G Ratio 2.0 Ratio 12/09/2016 Comp Metabolic Wpc963 Osmo 280 mOsmo 12/09/2016 Cbc With Differential [...] 31.3 pg 12/09/2016 Cbc With Differential Ord2 [place]% 6.5 % 12/09/2016 Cbc With Differential Ord2 [...] 1.84 K/ul 12/09/2016 Cbc With Differential Ord2 [place] ABS# 0.6 K/ul 12/09/2016 Cbc With Differential Ord2 Eos ABS# 0.1 K/ul 12/09/2016 Cbc With Differential Ord2 Baso ABS# 0.1 K/ul 12/09/2016 Tsh Ord6 hTSH II 1.19 uIU/mL 09/02/2016 Free T4 Rvq679 FREE T4 0.97 ng/dL 09/02/2016 Comp Metabolic Wnp547 NA 137 mEq/L 06/01/2016 Comp Metabolic Kxz856 K 4.1 mEq/L 06/01/2016 Comp Metabolic Iey137 CL 104 mEq/L 06/01/2016 Comp Metabolic Lya019 CO2 25.0 mEq/L 06/01/2016 Comp Metabolic Rdy929 ANION GAP 12 06/01/2016 Comp Metabolic But043 GLUCOSE 108 mg/dL 06/01/2016 Comp Metabolic Syn546 Creat 0.8 mg/dL 06/01/2016 Comp Metabolic Kib108 eGFR 80 ml/min/1.73m2 06/01/2016 Comp Metabolic Mas831 BUN 15 mg/dL 06/01/2016 Comp Metabolic Xuc983 B/C Ratio 20.0 Ratio 06/01/2016 Comp Metabolic Tfc454 CALCIUM 9.1 mg/dL 06/01/2016 Comp Metabolic Jhx856 ALK PHOS 89 U/L 06/01/2016 Comp Metabolic Eza442 AST(SGOT) 25 U/L 06/01/2016 Comp Metabolic Mby933 ALT(SGPT) 20 U/L 06/01/2016 Comp Metabolic Xuv414 BILI T 0.3 mg/dL 06/01/2016 Comp Metabolic Pmd897 ALBUMIN 4.2 g/dL 06/01/2016 Comp Metabolic Tjt177 TPRO 6.2 g/dL 06/01/2016 Comp Metabolic Aeb863 GLOB 2.0 g/dL 06/01/2016 Comp Metabolic Yka876 A/G Ratio 2.1 Ratio 06/01/2016 Comp Metabolic Gyq408 Osmo 275 mOsmo 06/01/2016 Free T4 Ako895 FREE T4 0.94 ng/dL 06/01/2016 Tsh Ord6 [...] 31.1 pg 06/01/2016 Cbc With Differential Ord2 [place]% 8.4 % 06/01/2016 Cbc With Differential Ord2 [...] 2.96 K/ul 06/01/2016 Cbc With Differential Ord2 [place] ABS# 0.6 K/ul 06/01/2016 Cbc With Differential [...] 31.3 pg 02/27/2016 Cbc With Differential Ord2 [place]% 10.0 % 02/27/2016 Cbc With Differential Ord2 [...] 2.28 K/ul 02/27/2016 Cbc With Differential Ord2 [place] ABS# 0.9 K/ul 02/27/2016 Cbc With Differential Ord2 Eos ABS# 0.3 K/ul 02/27/2016 Cbc With Differential Ord2 Baso ABS# 0.1 K/ul 02/27/2016 Tsh Ord6 hTSH II 0.18 uIU/mL 02/27/2016 Free T4 Ypl519 FREE T4 1.17 ng/dL 02/27/2016 Comp Metabolic Dsa581 NA 135 mEq/L 02/27/2016 Comp Metabolic Aiz007 K 5.2 mEq/L 02/27/2016 Comp Metabolic Pcp912 CL 102 mEq/L 02/27/2016 Comp Metabolic Wiu834 CO2 27.0 mEq/L 02/27/2016 Comp Metabolic Xja846 ANION GAP 11 02/27/2016 Comp Metabolic Bog454 GLUCOSE 93 mg/dL 02/27/2016 Comp Metabolic Guv335 Creat 0.7 mg/dL 02/27/2016 Comp Metabolic Lod188 eGFR 91 ml/min/1.73m2 02/27/2016 Comp Metabolic Vzb251 BUN 14 mg/dL 02/27/2016 Comp Metabolic Vau421 B/C Ratio 20.9 Ratio 02/27/2016 Comp Metabolic Wsu963 CALCIUM 9.4 mg/dL 02/27/2016 Comp Metabolic Rxy218 ALK PHOS 100 U/L 02/27/2016 Comp Metabolic Yrx864 AST(SGOT) 23 U/L 02/27/2016 Comp Metabolic Pbd330 ALT(SGPT) 24 U/L 02/27/2016 Comp Metabolic Fbq778 BILI T 0.2 mg/dL 02/27/2016 Comp Metabolic Ism009 ALBUMIN 4.3 g/dL 02/27/2016 Comp Metabolic Nyr253 TPRO 6.3 g/dL 02/27/2016 Comp Metabolic Rnl014 GLOB 2.1 g/dL 02/27/2016 Comp Metabolic Xvj704 A/G Ratio 2.1 Ratio 02/27/2016 Comp Metabolic Znf569 Osmo 270 mOsmo 02/27/2016 Free T4 Jwi804 FREE T4 1.03 ng/dL 05/10/2015 Comp Metabolic Pmi947 NA 137 mEq/L 05/10/2015 Comp Metabolic Ksg133 K 4.4 mEq/L 05/10/2015 Comp Metabolic Emk814 CL 102 mEq/L 05/10/2015 Comp Metabolic Rzi908 CO2 28.0 mEq/L 05/10/2015 Comp Metabolic Ynr641 ANION GAP 11 05/10/2015 Comp Metabolic Vto915 GLUCOSE 108 mg/dL 05/10/2015 Comp Metabolic Fjr933 Creat 0.7 mg/dL 05/10/2015 Comp Metabolic Vzx699 eGFR 86 ml/min/1.73m2 05/10/2015 Comp Metabolic Wnu482 BUN 13 mg/dL 05/10/2015 Comp Metabolic Dlj577 B/C Ratio 18.3 Ratio 05/10/2015 Comp Metabolic Cer272 CALCIUM 9.4 mg/dL 05/10/2015 Comp Metabolic Ffz483 ALK PHOS 94 U/L 05/10/2015 Comp Metabolic Rpn334 AST(SGOT) 22 U/L 05/10/2015 Comp Metabolic Yei790 ALT(SGPT) 21 U/L 05/10/2015 Comp Metabolic Uud570 BILI T 0.3 mg/dL 05/10/2015 Comp Metabolic Txo723 ALBUMIN 3.9 g/dL 05/10/2015 Comp Metabolic Zbf789 TPRO 6.1 g/dL 05/10/2015 Comp Metabolic Sxw855 GLOB 2.2 g/dL 05/10/2015 Comp Metabolic Gvi848 A/G Ratio 1.7 Ratio 05/10/2015 Comp Metabolic Tey477 Osmo 274 mOsmo 05/10/2015 Tsh Ord6 hTSH [...] 29.4 pg 05/10/2015 Cbc With Differential Ord2 [place]% 9.0 % 05/10/2015 Cbc With Differential Ord2 [...] 2.14 K/ul 05/10/2015 Cbc With Differential Ord2 [place] ABS# 0.5 K/ul 05/10/2015 Cbc With Differential [...] Ord30 C/HDL 3.8 Ratio 05/10/2015 Culture Urine [id number] URINE CULTURE SEE NOTES 02/25/2015 Culture Urine [id number] Continued Results 02/25/2015 Urine Culture Ucult Complete >100,000 col/ml aerobic growth sent to ref lab 02/22/2015 Free T4 [id number] FREE T4 1.16 ng/dL 02/11/2015 Tsh Ord6 [...] nourished 05/30/2018 None Full Exam - General 1995 Eyes conjunctiva/eyelids Overall: conjunctiva clear 05/30/2018 None [...] gait 05/30/2018 None Full Exam - General 1995 [...] station 04/21/2018 None Full Exam - General 1995 Musculoskeletal gait and station Overall: normal gait [...] developed 12/23/2016 None Full Exam - General 1995 Constitutional general appearance Overall: in no acute distress 12/23/2016 None Full Exam - General 1994 Constitutional general appearance Overall: well nourished 12/23/2016 None Full Exam - General 1995 Eyes conjunctiva/eyelids Overall: conjunctiva clear 12/23/2016 None Full Exam - General 1995 Eyes conjunctiva/eyelids Overall: eyelids normal 12/23/2016 None [...] Procedure Codes Date THER/PROPH/DIAG INJ SC/IM CPT-4: 67636 04/08/2018 ROCEPHIN, PER 250 MG CPT- 4: J0696 04/08/2018 THER/PROPH/DIAG INJ SC/IM CPT-4: 57166 04/07/2018 ROCEPHIN, PER 250 MG CPT- 4: J0696 04/07/2018 THER/PROPH/DIAG INJ SC/IM CPT-4: 61327 04/06/2018 ROCEPHIN, PER 250 MG CPT- 4: J0696 04/06/2018 THER/PROPH/DIAG INJ SC/IM CPT-4: 23847 04/05/2018 ROCEPHIN, PER 250 MG CPT- 4: J0696 04/05/2018 KETOROLAC TROMETHAMINE INJ CPT-4: J1885 04/05/2018 THER/PROPH/DIAG INJ SC/IM CPT-4: 49240 04/04/2018 ROCEPHIN, PER 250 MG CPT- 4: J0696 04/04/2018 KETOROLAC TROMETHAMINE INJ CPT-4: J1885 04/04/2018 URINALYSIS NONAUTO W/O SCOPE CPT-4: 05436 03/24/2018 PPPS, SUBSEQ VISIT CPT- 4: G0439 12/24/2017 THER/PROPH/DIAG INJ SC/IM CPT-4: 90586 12/24/2017 TRIAMCINOLONE ACET INJ NOS CPT-4: J3301 12/24/2017 THER/PROPH/DIAG INJ SC/IM CPT-4: 55300 11/18/2017 ROCEPHIN, PER 250 MG CPT- 4: J0696 11/18/2017 PRESCRIP TRANSMIT VIA ERX SY CPT-4: G8553 04/01/2017 TRIAMCINOLONE ACET INJ NOS CPT-4: J3301 03/25/2017 PPPS, SUBSEQ VISIT CPT- 4: G0439 12/23/2016 THER/PROPH/DIAG INJ SC/IM CPT-4: 83366 12/08/2016 TRIAMCINOLONE ACET INJ NOS CPT-4: J3301 12/08/2016 PRESCRIP TRANSMIT VIA ERX SY CPT-4: G8553 12/08/2016 PRESCRIP TRANSMIT VIA ERX SY CPT-4: G8553 11/30/2016 URINALYSIS NONAUTO W/O SCOPE CPT-4: 79874 07/08/2016 PRESCRIP TRANSMIT VIA ERX SY CPT-4: G8553 06/01/2016 PRESCRIP TRANSMIT VIA ERX SY CPT-4: G8553 02/27/2016 THER/PROPH/DIAG INJ SC/IM CPT-4: 80177 03/01/2015 ROCEPHIN, PER 250 MG CPT- 4: J0696 03/01/2015 THER/PROPH/DIAG INJ SC/IM CPT-4: 42506 02/28/2015 ROCEPHIN, PER 250 MG CPT- 4: J0696 02/28/2015 THER/PROPH/DIAG INJ SC/IM CPT-4: 87200 02/27/2015 ROCEPHIN, PER 250 MG CPT- 4: J0696 02/27/2015 THER/PROPH/DIAG INJ SC/IM CPT-4: 54434 02/26/2015 ROCEPHIN, PER 250 MG CPT- 4: J0696 02/26/2015 THER/PROPH/DIAG INJ SC/IM CPT-4: 39259 02/25/2015 ROCEPHIN, PER 250 MG CPT- 4: J0696 02/25/2015 URINALYSIS NONAUTO W/O SCOPE CPT-4: 33780 02/21/2015 Vital Signs Date Vital 07/20/2018 Blood Pressure 1: 140/66 Code: 8480-6 BMI: 28.0 Code: 64892-4 Heart Rate 1: 64 bpm Height: 5'3" SpO2: 96% Weight: 158 lbs 07/13/2018 Blood Pressure 1: 144/60 Code: 8480-6 BMI: 28.0 Code: 90325-2 Heart Rate 1: 66 bpm Height: 5'3" SpO2: 98% Weight: 158 lbs 06/08/2018 Blood Pressure 1: 132/76 Code: 8480-6 BMI: 28.0 Code: 26796-3 Heart Rate 1: 70 bpm Height: 5'3" SpO2: 98% Weight: 158 lbs 05/30/2018 Blood Pressure 1: 136/72 Code: 8480-6 BMI: 28.0 Code: 80723-3 Heart Rate 1: 84 bpm Height: 5'3" Weight: 158 lbs 05/10/2018 Blood Pressure 1: 130/72 Code: 8480-6 BMI: 28.2 Code: 60436-6 Heart Rate 1: 70 bpm Height: 5'3" [...] 1: 134/58 Code: 8480-6 BMI: 27.8 Code: 64328-2 Heart Rate 1: 85 bpm Height: 5'3" SpO2: 96% Weight: 157 lbs 03/24/2018 Blood Pressure 1: 128/82 Code: 8480-6 BMI: 27.8 Code: 19809-4 Heart Rate 1: 84 bpm Height: 5'3" SpO2: 97% Weight: 157 lbs 03/01/2018 Blood Pressure 1: 136/70 Code: 8480-6 BMI: 27.8 Code: 88511-1 Heart Rate 1: 70 bpm Height: 5'3" SpO2: 96% Weight: 157 lbs 12/24/2017 Height: Weight: 11/18/2017 Blood Pressure 1: 164/74 Code: 8480-6 BMI: 27.6 Code: 55117-2 Heart Rate 1: 70 bpm Height: 5'3" SpO2: 96% Weight: 156 lbs 11/03/2017 Blood Pressure 1: 118/72 Code: 8480-6 BMI: 27.6 Code: 55588-8 Heart Rate 1: 82 bpm Height: 5'3" SpO2: 96% Weight: 156 lbs 09/22/2017 Blood Pressure 1: 136/68 Code: 8480-6 BMI: 27.6 Code: 10973-1 Heart Rate 1: 70 bpm Height: 5'3" SpO2: 97% Weight: 156 lbs 04/01/2017 Blood Pressure 1: 144/82 Code: 8480-6 Heart Rate 1: 68 bpm Height: 5'3" SpO2: 97% Weight: 03/25/2017 Blood Pressure 1: 116/70 Code: 8480-6 BMI: 26.7 Code: 44786-1 Heart Rate 1: 67 bpm Height: 5'3" SpO2: 98% Weight: 151 lbs 12/23/2016 BMI: 26.7 Code: 26466-2 Height: 5'3" Weight: 151 lbs 12/22/2016 Blood Pressure 1: 142/60 Code: 8480-6 BMI: 26.7 Code: 87938-9 Heart Rate 1: 67 bpm Height: 5'3" SpO2: 98% Weight: 151 lbs 12/08/2016 Blood Pressure 1: 140/72 Code: 8480-6 Heart Rate 1: 72 bpm Height: 5'3" SpO2: 97% Weight: 11/30/2016 Blood Pressure 1: 128/80 Code: 8480-6 BMI: 26.7 Code: 34119-8 Heart Rate 1: 63 bpm Height: 5'3" SpO2: 96% Weight: 151 lbs 09/28/2016 Blood Pressure 1: 130/80 Code: 8480-6 BMI: 27.1 Code: 98324-6 Heart Rate 1: 80 bpm Height: 5'3" SpO2: 97% Weight: 153 lbs 07/06/2016 Blood Pressure 1: 162/72 Code: 8480-6 BMI: 27.6 Code: 61439-2 Heart Rate 1: 72 bpm Height: 5'3" SpO2: 98% Weight: 156 lbs 06/01/2016 Blood Pressure 1: 122/66 Code: 8480-6 BMI: 27.5 Code: 26919-0 Heart Rate 1: 73 bpm Height: 5'3" SpO2: 98% Weight: 155 lbs 8 oz 02/27/2016 Blood Pressure 1: 126/68 Code: 8480-6 BMI: 26.9 Code: 88080-3 Heart Rate 1: 70 bpm Height: 5'3" SpO2: 98% Weight: 152 lbs 09/10/2015 Blood Pressure 1: 130/70 Code: 8480-6 BMI: 26.9 Code: 26811-2 Heart Rate 1: 72 bpm Height: 5'3" SpO2: 97% Weight: 152 lbs 05/14/2015 Blood Pressure 1: 138/82 Code: 8480-6 BMI: 26.4 Code: 08148-7 Heart Rate 1: 75 bpm Height: 5'3" SpO2: 98% Weight: 149 lbs 02/11/2015 Blood Pressure 1: 128/72 Code: 8480-6 BMI: 25.5 Code: 54923-6 Heart Rate 1: 73 bpm Height: 5'3" [...] Dysuria[ICD10: R30.0] [facility] CPT-4: 60573 07/20/2018 [id number]) 11379 EST. PATIENT, LEVEL III Diagnosis: Essential (primary) hypertension[ICD10: I10] Diagnosis: Atrophy of thyroid (acquired)[ICD10: E03.4] [facility] CPT-4: 19324 07/13/2018 02123 EST. PATIENT, LEVEL III Diagnosis: Other fatigue[ICD10: R53.83] Diagnosis: Essential (primary) hypertension[ICD10: I10] Bridget Cortez MD, [facility] CPT-4: 40783 06/08/2018 93205 EST. PATIENT, LEVEL IV Diagnosis: Essential (primary) hypertension[ICD10: I10] Diagnosis: Other fatigue[ICD10: R53.83] Diagnosis: Other allergic rhinitis[ICD10: J30.89] Bridget Cortez MD, [facility] CPT- 4: 81896 05/30/2018 02598 EST. PATIENT, LEVEL IV Diagnosis: Essential (primary) hypertension[ICD10: I10] Diagnosis: Other fatigue[ICD10: R53.83] Bridget Cortez MD, [facility] CPT-4: 68765 05/10/2018 16832 EST. PATIENT, LEVEL IV Diagnosis: Low back pain[ICD10: M54.5] Diagnosis: Essential (primary) hypertension[ICD10: I10] Diagnosis: Other fatigue[ICD10: R53.83] Diagnosis: Other malaise[ICD10: R53.81] Bridget Cortez MD, [facility] CPT-4: 96830 04/21/2018 34531 EST. PATIENT, LEVEL III Diagnosis: Other fatigue[ICD10: R53.83] Diagnosis: Otalgia, right ear[ICD10: H92.01] Bridget Cortez MD, [facility] CPT-4: 69006 04/13/2018 ([id number]) 76170 EST. PATIENT, LEVEL III Diagnosis: Essential (primary) hypertension[ICD10: I10] Diagnosis: Dysuria[ICD10: R30.0] Diagnosis: Nausea[ICD10: R11.0] Diagnosis: Headache[ICD10: R51] Elen Cortez MD, [facility] CPT-4: 22741 04/04/2018 58826 EST. PATIENT, LEVEL III Diagnosis: Other acute sinusitis[ICD10: J01.80] Diagnosis: Dizziness and giddiness[ICD10: R42] Diagnosis: Dysuria[ICD10: R30.0] Diagnosis: Candidal stomatitis[ICD10: B37.0] Diagnosis: Essential (primary) hypertension[ICD10: I10] Diagnosis: Other fatigue[ICD10: R53.83] Diagnosis: Other malaise[ICD10: R53.81] Bridget Cortez MD, [facility] CPT-4: 45876 04/01/2018 ([id number]) 54812 EST. 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 PATIENT, LEVEL IV Diagnosis: Otalgia, right ear[ICD10: H92.01] Diagnosis: Headache[ICD10: R51] Diagnosis: Other fatigue[ICD10: R53.83] Diagnosis: Abnormal findings on diagnostic imaging of other specified body structures[ICD10: R93.89] Elen Cortez MD, [facility] CPT-4: 24654 03/01/2018 06094 EST. PATIENT, LEVEL III Diagnosis: Acute cystitis with hematuria[ICD10: N30.01] Bridget Cortez MD, [facility] CPT-4: 52018 11/18/2017 40722 EST. PATIENT, LEVEL IV Diagnosis: Other acute sinusitis[ICD10: J01.80] Diagnosis: Otalgia, right ear[ICD10: H92.01] Bridget Cortez MD, [facility] CPT-4: 36714 11/03/2017 11854 EST. PATIENT, LEVEL III Diagnosis: Other fatigue[ICD10: R53.83] Diagnosis: Other malaise[ICD10: R53.81] Diagnosis: Pain in left knee[ICD10: M25.562] Diagnosis: Pain in right knee[ICD10: M25.561] Bridget Cortez MD, [facility] CPT-4: 74570 09/22/2017 ([id number]) 07966 EST. PATIENT, LEVEL III Diagnosis: Cough[ICD10: R05] Diagnosis: Acute bronchitis due to other specified organisms[ICD10: J20.8] Elen Cortez MD, [facility] CPT-4: 84514 04/01/2017 ([id number]) 41721 EST. PATIENT, LEVEL III Diagnosis: Otalgia, right ear[ICD10: H92.01] Diagnosis: Other allergic rhinitis[ICD10: J30.89] Shiela Cortez MD, [facility] CPT-4: 93725 03/25/2017 ([id number]) 10655 EST. PATIENT, LEVEL III Diagnosis: Benign paroxysmal vertigo, bilateral[ICD10: H81.13] Shiela Cortez MD, [facility] CPT-4: 47675 12/22/2016 ([id number]) 16630 EST. PATIENT, LEVEL IV Diagnosis: Benign paroxysmal vertigo, bilateral[ICD10: H81.13] Diagnosis: Other allergic rhinitis[ICD10: J30.89] Diagnosis: Hypothyroidism, unspecified[ICD10: E03.9] Shiela Cortez MD, [facility] CPT-4: 79561 12/08/2016 ([id number]) 97066 EST. PATIENT, LEVEL IV Diagnosis: Atrophy of thyroid (acquired)[ICD10: E03.4] Diagnosis: Essential (primary) hypertension[ICD10: I10] Diagnosis: Mixed hyperlipidemia[ICD10: E78.2] Elen Cortez MD, [facility] CPT- 4: 40535 11/30/2016 68081 EST. PATIENT, LEVEL IV Diagnosis: Headache[ICD10: R51] Diagnosis: Other fatigue[ICD10: R53.83] Diagnosis: Dizziness and giddiness[ICD10: R42] Bridget Cortez MD, [facility] CPT- 4: 15157 09/28/2016 16887 EST. PATIENT, LEVEL IV Diagnosis: Essential (primary) hypertension[ICD10: I10] Diagnosis: Headache[ICD10: R51] Bridget Cortez MD, [facility] CPT-4: 79124 07/06/2016 ([id number]) 01882 EST. PATIENT, LEVEL IV Diagnosis: Essential (primary) hypertension[ICD10: I10] Diagnosis: Atrophy of thyroid (acquired)[ICD10: E03.4] Diagnosis: Mixed hyperlipidemia[ICD10: E78.2] Elen Cortez MD, [facility] CPT- 4: 93794 06/01/2016 49334 EST. PATIENT, LEVEL IV Diagnosis: Acute laryngopharyngitis[ICD10: J06.0] Diagnosis: Other allergic rhinitis[ICD10: J30.89] Diagnosis: Other specified hypothyroidism[ICD10: E03.8] Diagnosis: Other fatigue[ICD10: R53.83] Bridget Cortez MD, [facility] CPT-4: 41657 02/27/2016 ([id number]) 97771 EST. PATIENT, LEVEL III Diagnosis: Essential (primary) hypertension[ICD10: I10] Diagnosis: Mixed hyperlipidemia[ICD10: E78.2] Elen Cortez MD, [facility] CPT- 4: 79478 09/10/2015 ([id number]) 52062 EST. PATIENT, LEVEL IV Diagnosis: Essential (primary) hypertension[ICD10: I10] Diagnosis: Hypothyroidism, unspecified[ICD10: E03.9] Diagnosis: Unspecified osteoarthritis, unspecified site[ICD10: M19.90] Elen Cortez MD, [facility] CPT-4: 09010 05/14/2015 ([id number]) OFFICE VISIT, NEW - LEVEL 4 Diagnosis: Essential (primary) hypertension[ICD10: I10] Diagnosis: Hypothyroidism, unspecified[ICD10: E03.9] Diagnosis: Unspecified osteoarthritis, unspecified site[ICD10: M19.90] Elen Cortez MD, [facility] CPT-4: 17178 02/11/2015 Plan of Care Planned Activity Notes Codes Status Date Visit Plan: UTI - pt with positive urinalysis - culture sent if appropriate. Antibiotic electronically prescribed to pt's pharmacy of choice. Pt to call if symptoms do not improve. 07/20/2018 Appointment: Bridget Velazco WPtel: [address] [place], [place] [address] (10 min) Simple 07/20/2018 Patient Education: Patient [...] of control. 07/13/2018 Appointment: Elen Cortez WPtel: [phone] [phone] (30 min) Complex 07/13/2018 Patient Education: Patient [...] at home. 06/08/2018 Appointment: Bridget Velazco WPtel: [phone] [facility]66[facility] (15 min) Moderate 06/08/2018 Patient Education: Patient [...] spray. 05/30/2018 Appointment: Bridget Velazco WPtel: [phone] [facility] [place] (15 min) Moderate 05/30/2018 Patient Education: Patient [...] concerns. 05/10/2018 Appointment: Bridget Velazco WPtel: [phone] [facility] [place] (15 min) Moderate 05/10/2018 Patient Education: Patient Medication Summary Completed 05/10/2018 Appointment: Elen Cortez WPtel: [phone] [phone] (15 min) Moderate 05/05/2018 Referral: Wan Steven [...] or concerns. 04/21/2018 Appointment: Bridget Velazco WPtel: [phone] [facility] [place] (15 min) Moderate 04/21/2018 Patient Education: Patient Medication Summary Completed 04/21/2018 Patient Education: Back Pain Completed 04/21/2018 Appointment: Bridget Velazco WPtel: [phone] [facility] [place] (15 min) Moderate 04/14/2018 Care Plan: [...] Dr. Saini. 04/13/2018 Appointment: Bridget Velazco WPtel: [facility] [address] [place] (30 min) Complex 04/13/2018 Patient Education: Patient Medication Summary Completed 04/13/2018 Appointment: Nurse Visit 04/08/2018 Appointment: Bridget Velazco WPtel: [facility]5 [facility] [place] (15 min) Moderate 04/08/2018 Patient Education: Patient Medication Summary Completed 04/08/2018 Appointment: Injection 04/07/2018 Patient Education: Patient Medication Summary Completed 04/07/2018 Appointment: Injection 04/06/2018 Patient Education: Patient Medication Summary Completed 04/06/2018 Appointment: Injection 04/05/2018 Appointment: Elen Cortez WPtel: [facility] [place] (15 min) Moderate 04/05/2018 Patient Education: [...] toradol today. 04/04/2018 Appointment: Elen Cortez WPtel: [facility] [place] (10 min) Simple 04/04/2018 Patient Education: Patient Medication Summary Completed 04/04/2018 Patient Education: Patient Medication Summary Completed 04/04/2018 Patient Education: Patient Medication Summary Completed 04/04/2018 Care Plan: Referral Order SNOMED-CT : [id number] Pending 04/04/2018 Visit Plan: Dysuria, dizziness, fatigue, [...] improvement. 04/01/2018 Appointment: Bridget Velazco WPtel: [phone] [facility] [address] (15 min) Moderate 04/01/2018 Patient Education: Patient Medication Summary Completed 04/01/2018 Visit Plan: Sinusitis - Pt has acute infection - pain in face, maxillary region, Pt informed to use decongestant, RX given to patient, sinus rinses also recommended. Call if symptoms do not show improvement. Dysuria - rx for antibiotic sent to pharmacy. 03/24/2018 Appointment: Elen Cortez [facility]Ptel[phone] (15 min) Moderate 03/24/2018 Patient Education: [...] improve. 03/01/2018 Appointment: Elen Cortez WPtel: [phone] [phone] (15 min) Moderate 03/01/2018 Patient Education: Patient [...] spray. 12/24/2017 Appointment: Bridget Velazco WPtel: [phone] [phone] [facility] - Annual Wellness Visit 12/24/2017 Patient Education: Patient Medication Summary Completed 12/24/2017 Appointment: Bridget Velazco WPtel: [phone] [facility] [address] (15 min) Moderate 11/30/2017 Appointment: Lab Draw [...] improve. 11/18/2017 Appointment: Bridget Velazco WPtel: [phone] [facility] (15 min) Moderate 11/18/2017 Patient Education: Patient Medication Summary Completed 11/18/2017 Visit Plan: Sinusitis - Pt has acute infection - pain in face, maxillary region, Pt informed to use decongestant, RX given to patient, sinus rinses also recommended. Call if symptoms do not show improvement. 11/03/2017 Appointment: Bridget Velazco WPtel: [phone] (15 min) Moderate 11/03/2017 Patient Education: [...] not improve. 09/22/2017 Appointment: Bridget Velazco WPtel: [facility]7 [facility]66[facility] (15 min) Moderate 09/22/2017 Patient Education: Patient Medication Summary Completed 09/22/2017 Visit Plan: Bronchitis - acute case of bronchitis identified. Pt has been given antibiotics, breathing treatments as appropriate, and pt has been instructed to call if symptoms are not improved, or if symptoms acutely worsen. 04/01/2017 Appointment: Elen Cortez WPtel: [facility]9 [address] (15 min) Moderate 04/01/2017 Patient Education: [...] allergy spray. 03/25/2017 Appointment: Shiela Srivastava WPtel: [facility]0 [phone] (10 min) Simple 03/25/2017 Appointment: Elen Cortez WPtel: [address] [place], [place] [address] (15 min) Moderate 03/25/2017 Patient Education: Patient [...] care surrogate. 12/23/2016 Appointment: Bridget Velazco WPtel: [facility]3 [phone] [place] [address] - Annual Wellness Visit 12/23/2016 Patient Education: Patient Medication Summary Completed 12/23/2016 Visit Plan: Vertigo-discussed PT for vestibular exercises-patient wants to wait since symptoms are improving-continue anti histamine as directed- meclizine as needed 12/22/2016 Appointment: Shiela Srivastava WPtel: [phone] (30 min) Complex 12/22/2016 Patient Education: [...] of control. 12/08/2016 Appointment: Shiela Srivastava WPtel: [address] [place], [place] [phone] (30 min) [facility] 12/08/2016 Patient Education: Patient Medication Summary Completed [...] medications. 11/30/2016 Appointment: Elen Cortez WPtel: [phone] [facility] (15 min) Moderate 11/30/2016 Patient Education: Patient [...] concerns. 09/28/2016 Appointment: Bridget Velazco WPtel: [phone] [phone] (30 min) Complex 09/28/2016 Patient Education: Patient [...] concerns. 07/06/2016 Appointment: Bridget Velazco WPtel: [phone] [phone] (15 min) Moderate 07/06/2016 Patient Education: Patient [...] improving 06/01/2016 Appointment: [facility] Cortez [facility]Ptel[phone] (15 min) Moderate 06/01/2016 Patient Education: [...] labs 02/27/2016 Appointment: Bridget Velazco WPtel: [phone] [facility] [address] (30 min) Complex 02/27/2016 Patient Education: Patient Medication Summary Completed 02/27/2016 Patient Education: Patient Medication Summary Completed 09/27/2015 Care Plan: SCREENINGMAMMOGRAPHYDIGITAL [facility] : 98828-8 Pending 09/27/2015 Visit Plan: Hypertension - well [...] the colonoscopy 09/10/2015 Appointment: Elen Cortez [facility]Ptel[phone] (15 min) Moderate 09/10/2015 Patient Education: [...] Sanchez. 05/14/2015 Appointment: Elen Cortez WPtel[phone] [facility] [place] (15 min) Moderate 05/14/2015 Patient Education: Patient Medication Summary Completed 05/14/2015 Patient Education: Hypertension Completed 05/14/2015 Care Plan: Referral Order SNOMED-CT : [id number] Ordered 05/14/2015 Patient Education: Patient Medication Summary Completed 03/01/2015 Appointment: Nurse Visit 02/28/2015 Patient Education: Patient Medication Summary Completed 02/28/2015 Patient Education: Patient Medication Summary Completed 02/27/2015 Appointment: Nurse Visit 02/26/2015 Patient Education: Patient Medication Summary Completed 02/26/2015 Appointment: Injection 02/25/2015 Patient Education: Patient Medication Summary Completed 02/25/2015 Patient Education: Patient Medication Summary Completed 02/21/2015 Care Plan: URINALYSIS NONAUTO W/O SCOPE [facility] : 10938-4 Ordered 02/21/2015 Visit Plan: Hypertension - well [...] pain symptoms. 02/11/2015 Appointment: Elen Cortez WPtel: [address] [place], [place] [address] New Patient 02/11/2015 Patient Education: Patient Medication [...] her preferred provider for the colonoscopy . Episodes of headache, dizziness, and light [...] tylenol for break through pain symptoms. . UTI - symptoms resolved - repeat UA negative - pt is to notify clinic if symptoms return or with any questions or concerns Fatigue - pt is to notify clinic if symptoms are not improving, pt is to increase fluid intake Ear pain - ongoing - will refer to Dr. Saini.
--- OUTSIDE RECORDS SUMMARY | 2018-11-10 18:25 | XMS REPORT | CCD ---
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 Name Role Phone PP Unavailable CCM Unavailable Summary Purpose Interface Exchange Insurance Providers Payer name Policy type / Coverage type Covered republican ID Effective Begin Date Effective End Date WPS Medicare Part B Medicare Part B [id number] Unknown [place] Long Term Life Insurance Medicare Part B [id number] Unknown Family history Mother Diagnosis Age At [...] spouses - 02/11/[address]: 157105109 Never smoker 02/11/2015 Alcohol history Unknown occasionally drinks alcohol 02/11/2015 Allergies, Adverse Reactions, Alerts Substance Reaction Codes Entered Date Inactivated Date Status CODEINE RxNorm: 2670 02/11/2015 No Inactive Date Active allergy Unknown 12/23/2016 No Inactive Date Active ciprofloxacin rash, RxNorm: 07488 02/26/2015 No Inactive Date Active hydrocodone Unknown [...] Start Date Stop Date Status Fill Instructions cefdinir 300 mg capsule RxNorm: 687855 1 Capsule(s) PO BID 07/20/2018 07/29/2018 Active Pyridium 200 mg tablet RxNorm: 0210878 1 Tablet(s) PO TID 07/20/2018 07/24/2018 Inactive meclizine 25 mg tablet RxNorm: 594262 1 Tablet(s) TID as needed 07/14/2018 No Stop Date Active dizziness levocetirizine 5 mg tablet RxNorm: 373463 1 Tablet(s) PO daily 05/30/2018 08/27/2018 Active nystatin 100,000 unit/gram topical cream RxNorm: 502554 1 Gram(s) TOP TID as needed 05/30/2018 No Stop Date Active metoprolol succinate ER 50 mg tablet,extended release 24 hr RxNorm: 162474 1 Tablet(s) daily may take 1 extra tab daily if systolic bp elevated 05/03/2018 11/28/2018 Active metoprolol succinate ER 50 mg tablet,extended release 24 hr RxNorm: 137374 Tablet(s) Tablet(s) TAKE 1 TABLET BY MOUTH DAILY 05/03/2018 05/02/2018 Inactive lisinopril 20 mg tablet RxNorm: 900531 TAKE 1 TABLET BY MOUTH TWICE DAILY 04/22/2018 09/18/2018 Active Generic For:*PRINIVIL 20 MG TABLET 04/22/2018 9:57:59 AM levocetirizine 5 mg tablet RxNorm: 110394 1 Tablet(s) PO daily 04/22/2018 04/21/2018 Inactive Singulair 10 mg tablet RxNorm: 116890 1 Tablet(s) PO QHS 04/22/2018 04/21/2018 Inactive Singulair 10 mg tablet RxNorm: 192923 1 Tablet(s) PO QHS 04/22/2018 05/12/2018 Inactive levocetirizine 5 mg tablet RxNorm: 939455 1 Tablet(s) PO daily 04/22/2018 05/21/2018 Inactive ceftriaxone 500 mg solution for injection RxNorm: 4862100 Inj 04/08/2018 04/08/2018 Inactive ceftriaxone 500 mg solution for injection RxNorm: 8487723 Inj 04/07/2018 04/07/2018 Inactive ceftriaxone 500 mg solution for injection RxNorm: 1158555 Inj 04/06/2018 04/06/2018 Inactive ketorolac 60 mg/2 mL intramuscular solution RxNorm: 3972115 Milliliter(s) IM 04/05/2018 04/05/2018 Inactive ceftriaxone 500 mg solution for injection RxNorm: 7984728 Inj 04/05/2018 04/05/2018 Inactive ondansetron 4 mg disintegrating tablet RxNorm: 780058 1 Tablet(s) PO TID as needed nausea 04/04/2018 No Stop Date Active ketorolac 30 mg/mL injection solution RxNorm: 832373 2 Milliliter(s) Inj 04/04/2018 04/04/2018 Inactive ceftriaxone 500 mg solution for injection RxNorm: 7177600 Inj 04/04/2018 04/04/2018 Inactive nystatin 100,000 unit/mL oral suspension RxNorm: 975421 4 Milliliter(s) PO QID 04/01/2018 04/05/2018 Inactive doxycycline hyclate 100 mg tablet RxNorm: 4279558 1 Tablet(s) PO BID 04/01/2018 04/10/2018 Inactive amoxicillin 500 mg capsule RxNorm: 264873 1 Capsule(s) PO TID 03/24/2018 04/02/2018 Inactive prednisone 10 mg tablet RxNorm: 988426 1 Tablet(s) PO UD 6 pills on day 1 and 2 and then decrease by one pill every other day until prescription is done 03/24/2018 05/12/2018 Inactive metoprolol succinate ER 50 mg tablet,extended release 24 hr RxNorm: 607649 Tablet(s) TAKE 1 TABLET BY MOUTH DAILY 03/21/2018 05/02/2018 Inactive PLEASE SEND REFILL REQUESTS ELECTRONICALLY!! Synthroid 88 mcg tablet RxNorm: 996223 TAKE 1 TABLET BY MOUTH DAILY 03/08/2018 08/04/2018 Active 03/07/2018 11:21:21 AM pravastatin 80 mg tablet RxNorm: 305038 Tablet(s) 1 Tablet(s) PO daily 03/01/2018 02/23/2019 Active Kenalog 40 mg/mL suspension for injection RxNorm: 5526778 Milliliter(s) Inj 12/24/2017 12/24/2017 Inactive cetirizine 10 mg tablet RxNorm: 4545023 TAKE 1 TABLET BY MOUTH DAILY 12/21/2017 04/19/2018 Inactive Generic For:*ZYRTEC 10 MG TABLET 12/21/2017 10:08:05 AM Synthroid 88 mcg tablet RxNorm: 062222 TAKE 1 TABLET BY MOUTH DAILY 12/07/2017 03/06/2018 Inactive 12/06/2017 11:46:49 AM Lipitor 80 mg tablet RxNorm: 011622 1 Tablet(s) PO daily 11/29/2017 02/28/2018 Inactive pravastatin 80 mg tablet RxNorm: 277521 1 Tablet(s) PO daily 11/29/2017 11/29/2017 Inactive Lipitor 80 mg tablet RxNorm: 865946 1 Tablet(s) PO daily 11/29/2017 11/28/2017 Inactive lisinopril 20 mg tablet RxNorm: 709322 TAKE 1 TABLET BY MOUTH TWICE DAILY 11/23/2017 04/21/2018 Inactive Generic For:*PRINIVIL 20 MG TABLET 11/23/2017 11:29:44 AM Macrobid 100 mg capsule RxNorm: 945433 1 Capsule(s) PO BID 11/19/2017 11/25/2017 Inactive Macrobid 100 mg capsule RxNorm: 593409 1 Capsule(s) PO BID 11/19/2017 11/18/2017 Inactive Lomotil 2.5 mg-0.025 mg tablet RxNorm: 2671626 1 -2 Tablet(s) PO TID as needed 11/19/2017 11/25/2017 Inactive Lomotil 2.5 mg-0.025 mg tablet RxNorm: 9518867 1 -2 Tablet(s) PO TID as needed 11/19/2017 11/18/2017 Inactive Pyridium 200 mg tablet RxNorm: 1480946 1 Tablet(s) PO TID as needed 11/18/2017 11/22/2017 Inactive Augmentin 500 mg-125 mg tablet RxNorm: 015225 1 Tablet(s) PO TID 11/18/2017 11/27/2017 Inactive Keflex 500 mg capsule RxNorm: 001479 1 Capsule(s) PO TID 11/03/2017 11/09/2017 Inactive Denavir 1 % topical cream RxNorm: 612188 1 TOP TID as needed cold sores 11/01/2017 01/29/2018 Inactive Denavir 1 % topical cream RxNorm: 471761 1 TOP TID as needed cold sores 11/01/2017 10/31/2017 Inactive Synthroid 88 mcg tablet RxNorm: 467040 TAKE 1 TABLET BY MOUTH DAILY 09/29/2017 11/27/2017 Inactive 09/29/2017 12:58:07 PM pravastatin 80 mg tablet RxNorm: 550067 1 Tablet(s) PO daily 08/31/2017 08/30/2017 Inactive pravastatin 80 mg tablet RxNorm: 088463 1 Tablet(s) PO daily 08/31/2017 11/28/2017 Inactive Synthroid 88 mcg tablet RxNorm: 264867 TAKE 1 TABLET BY MOUTH DAILY 08/30/2017 09/28/2017 Inactive 08/30/2017 10:53:26 AM metoprolol succinate ER 50 mg tablet,extended release 24 hr RxNorm: 649978 Tablet(s) TAKE 1 TABLET BY MOUTH DAILY 08/17/2017 03/14/2018 Inactive PLEASE SEND REFILL REQUESTS ELECTRONICALLY!! lisinopril 20 mg tablet RxNorm: 208004 TAKE 1 TABLET BY MOUTH TWICE DAILY 06/18/2017 11/14/2017 Inactive Generic For:*PRINIVIL 20 MG TABLET 06/18/2017 1:31:00 PM Synthroid 88 mcg tablet RxNorm: 310336 TAKE 1 TABLET BY MOUTH DAILY 05/24/2017 08/21/2017 Inactive 05/24/2017 2:13:21 PM cetirizine 10 mg tablet RxNorm: 7871905 1 Tablet(s) PO daily 05/17/2017 12/12/2017 Inactive Zithromax Z-Russell 250 mg capsule RxNorm: 026338 1 Capsule(s) PO 04/02/2017 04/05/2017 Inactive Zithromax Z-Russell 250 mg tablet RxNorm: 093497 1 Tablet(s) PO 04/02/2017 04/01/2017 Inactive Zithromax Z-Russell 250 mg capsule RxNorm: 173569 1 Capsule(s) PO 04/02/2017 04/01/2017 Inactive Zithromax Z-Russell 250 mg tablet RxNorm: 875354 1 Tablet(s) PO 04/02/2017 04/06/2017 Inactive Ventolin HFA 90 mcg/actuation aerosol inhaler RxNorm: 563475 2 INH QID as needed - for the first 3 days inhale at least two puffs three times daily, then use as needed for shortness of breath 04/01/2017 04/30/2017 Inactive Keflex 500 mg capsule RxNorm: 535765 1 Capsule(s) PO TID 04/01/2017 04/01/2017 Inactive meclizine 25 mg tablet RxNorm: 447175 Tablet(s) 1 Tablet(s) PO Q6 PRN 03/25/2017 03/24/2017 Inactive dizziness Kenalog 40 mg/mL suspension for injection RxNorm: 4762852 1 Milliliter(s) Inj 03/25/2017 03/25/2017 Inactive meclizine 25 mg tablet RxNorm: 462513 1 Tablet(s) PO Q6 PRN 1 Tablet(s) PO Q6 PRN 03/25/2017 05/12/2018 Inactive dizziness meclizine 25 mg tablet RxNorm: 034661 1 Tablet(s) PO Q6 PRN 02/15/2017 03/24/2017 Inactive dizziness lisinopril 20 mg tablet RxNorm: 615241 1 Tablet(s) PO BID 01/15/2017 06/13/2017 Inactive metoprolol succinate ER 50 mg tablet,extended release 24 hr RxNorm: 728792 TAKE 1 TABLET BY MOUTH DAILY 01/07/2017 08/04/2017 Inactive Generic For:TOPROL XL 50MG TAB 01/07/2017 12:38:23 PM Synthroid 88 mcg tablet RxNorm: 521474 TAKE 1 TABLET BY MOUTH DAILY 12/25/2016 05/23/2017 Inactive 12/25/2016 9:47:08 AM Zithromax Z-Russell 250 mg tablet RxNorm: 452220 Tablet(s) PO UD 12/23/2016 03/24/2017 Inactive meclizine 25 mg tablet RxNorm: 891965 1 Tablet(s) PO Q6 PRN 12/08/2016 12/20/2016 Inactive dizziness Kenalog 40 mg/mL suspension for injection RxNorm: 2695189 Milliliter(s) Inj 12/08/2016 12/08/2016 Inactive meloxicam 15 mg tablet RxNorm: 038051 1 Tablet(s) PO daily 11/30/2016 12/20/2016 Inactive cetirizine 10 mg tablet RxNorm: 8627212 1 Tablet(s) PO daily 10/23/2016 05/16/2017 Inactive pravastatin 40 mg tablet RxNorm: 407002 1 Tablet(s) PO BID 08/20/2016 08/30/2017 Inactive Cancel 80 mg tab lisinopril 20 mg tablet RxNorm: 844822 1 Tablet(s) PO BID 08/12/2016 12/22/2016 Inactive Synthroid 88 mcg tablet RxNorm: 708074 1 Tablet(s) PO TAKE ONE (1) TABLET BY MOUTH DAILY 07/28/2016 12/24/2016 Inactive decrease dose hydralazine 25 mg tablet RxNorm: 031970 1 Tablet(s) PO TID as needed for Systolic blood pressure over 170 07/06/2016 12/20/2016 Inactive lisinopril 20 mg tablet RxNorm: 582484 1 Tablet(s) PO BID to replace your other lisinopril dose 07/06/2016 08/04/2016 Inactive lisinopril 10 mg tablet RxNorm: 645326 TAKE ONE TABLET BY MOUTH TWICE DAILY 06/10/2016 08/11/2016 Inactive Generic For:ZESTRIL 10 MG TABLET 06/09/2016 12:58:50 PM triamcinolone acetonide 0.1 % topical cream RxNorm: 6155060 1 Application TOP TID as needed 06/01/2016 No Stop Date Active nystatin 100,000 unit/gram topical cream RxNorm: 882566 1 Gram(s) TOP TID as needed 06/01/2016 05/29/2018 Inactive metoprolol succinate ER 50 mg tablet,extended release 24 hr RxNorm: 566951 1 Tablet(s) PO daily 05/26/2016 12/21/2016 Inactive cetirizine 10 mg tablet RxNorm: 9902169 1 Tablet(s) PO daily 03/23/2016 10/18/2016 Inactive Synthroid 88 mcg tablet RxNorm: 787991 1 Tablet(s) PO TAKE ONE (1) TABLET BY MOUTH DAILY 03/06/2016 03/07/2018 Inactive Brand name only! Synthroid 88 mcg tablet RxNorm: 455140 1 Tablet(s) PO TAKE ONE (1) TABLET BY MOUTH DAILY 03/04/2016 03/05/2016 Inactive decrease dose cetirizine 10 mg tablet RxNorm: 8956227 1 Tablet(s) PO daily 02/27/2016 03/22/2016 Inactive amoxicillin 500 mg capsule RxNorm: 341247 1 Capsule(s) PO TID 02/27/2016 03/04/2016 Inactive lisinopril 10 mg tablet RxNorm: 664285 TAKE ONE TABLET BY MOUTH TWICE DAILY 02/06/2016 06/04/2016 Inactive Generic For:ZESTRIL 10 MG TABLET 02/06/2016 12:16:38 PM Synthroid 100 mcg tablet RxNorm: 465493 TAKE ONE (1) TABLET BY MOUTH DAILY 01/03/2016 03/03/2016 Inactive 01/03/2016 10:35:14 AM N O T I C E Last quantity doesn't match original quantity lisinopril 10 mg tablet RxNorm: 773921 1 Tablet(s) PO BID 10/04/2015 01/31/2016 Inactive Synthroid 100 mcg tablet RxNorm: 285455 1 Tablet(s) PO daily 10/04/2015 01/02/2016 Inactive metoprolol succinate ER 50 mg tablet,extended release 24 hr RxNorm: 994801 1 Tablet(s) PO daily 10/04/2015 04/30/2016 Inactive Tylenol Arthritis 650 mg tablet,extended release RxNorm: 6802344 2 Tablet(s) PO TID 09/10/2015 No Stop Date Active metoprolol succinate ER 50 mg tablet,extended release 24 hr RxNorm: 994310 1 Tablet(s) PO daily 09/05/2015 10/03/2015 Inactive pravastatin 80 mg tablet RxNorm: 863908 1 Tablet(s) PO QHS 08/30/2015 08/30/2015 Inactive pravastatin 40 mg tablet RxNorm: 158459 1 Tablet(s) PO BID 08/30/2015 08/29/2015 Inactive Cancel 80 mg tab pravastatin 40 mg tablet RxNorm: 017837 1 Tablet(s) PO BID 08/30/2015 08/19/2016 Inactive Cancel 80 mg tab lisinopril 10 mg tablet RxNorm: 249813 1 Tablet(s) PO BID 06/13/2015 08/11/2016 Inactive lisinopril 10 mg tablet RxNorm: 611442 1 Tablet(s) PO BID 06/13/2015 10/03/2015 Inactive Synthroid 100 mcg tablet RxNorm: 472529 1 Tablet(s) PO daily 06/10/2015 10/03/2015 Inactive ceftriaxone 1 gram solution for injection RxNorm: 0125642 Inj 03/01/2015 03/01/2015 Inactive ceftriaxone 1 gram solution for injection RxNorm: 2966271 Inj 02/28/2015 02/28/2015 Inactive ceftriaxone 1 gram solution for injection RxNorm: 4890331 Inj 02/27/2015 02/27/2015 Inactive ceftriaxone 1 gram solution for injection RxNorm: 5402315 Inj 02/26/2015 02/26/2015 Inactive ceftriaxone 1 gram solution for injection RxNorm: 2430496 Inj 02/25/2015 02/25/2015 Inactive phenazopyridine 200 mg tablet RxNorm: 0538821 1 Tablet(s) PO Q8 02/21/2015 02/20/2015 Inactive Cipro 500 mg tablet RxNorm: 646630 1 Tablet(s) PO BID 02/21/2015 02/20/2015 Inactive phenazopyridine 200 mg tablet RxNorm: 4997076 1 Tablet(s) PO Q8 02/21/2015 02/25/2015 Inactive Cipro 500 mg tablet RxNorm: 236668 1 Tablet(s) PO BID 02/21/2015 02/27/2015 Inactive lisinopril 10 mg tablet RxNorm: 709790 1 Tablet(s) PO BID 02/14/2015 06/12/2015 Inactive metoprolol succinate ER 50 mg tablet,extended release 24 hr RxNorm: 489877 3/4 Tablet(s) PO daily 02/11/2015 09/04/2015 Inactive Voltaren 1 % topical gel RxNorm: 347146 2 Gram(s) TOP QID use this on affected joints up to four times daily. 02/11/2015 03/12/2015 Inactive Probiotic oral RxNorm: 6205 oral No Start Date Active aspirin 81 mg tablet RxNorm: 460516 1 Tablet(s) PO daily No Start Date Active Super B-Complex tablet RxNorm: 1 Tablet(s) PO No Start Date Active Super-D3+ oral RxNorm: oral No Start Date Active Prilosec OTC 20 mg tablet,delayed release RxNorm: 416099 2 Tablet(s) PO QAM No Start Date Active Flonase Allergy Relief 50 mcg/actuation nasal spray,suspension RxNorm: 7469908 1 [place]ner NASAL as needed No Start Date Active Move Free Ultra 40 mg-10 mg-3.3 mg tablet RxNorm: 1 Tablet(s) PO daily No Start Date Active metoprolol tartrate 50 mg tablet RxNorm: 363952 1 Tablet(s) PO daily No Start Date 02/10/2015 Inactive lisinopril 10 mg tablet RxNorm: 413031 1 Tablet(s) PO BID No Start Date 02/13/2015 Inactive pravastatin 80 mg tablet RxNorm: 228542 1 Tablet(s) PO daily No Start Date 08/29/2015 Inactive Flonase Allergy Relief 50 mcg/actuation nasal spray,suspension RxNorm: 1156914 1 Wisner NASAL BID No Start Date 05/12/2018 Inactive Synthroid 100 mcg tablet RxNorm: 264996 1 Tablet(s) PO daily No Start Date 06/09/2015 Inactive lisinopril 40 mg tablet RxNorm: 191213 1 Tablet(s) PO BID No Start Date 02/28/2018 Inactive Tylenol Arthritis 650 mg tablet,extended release RxNorm: 8311824 4 Tablet(s) PO daily No Start Date 09/09/2015 Inactive Medication Administered Medication Codes Instructions Start Date Status ceftriaxone 500 mg solution for injection RxNorm: 8939626 04/08/2018 No longer Active ceftriaxone 500 mg solution for injection RxNorm: 7737659 04/07/2018 No longer Active ceftriaxone 500 mg solution for injection RxNorm: 4206584 04/06/2018 No longer Active ceftriaxone 500 mg solution for injection RxNorm: 0733703 04/05/2018 No longer Active ketorolac 60 mg/2 mL intramuscular solution RxNorm: 5057490 Milliliter 04/05/2018 No longer Active ceftriaxone 500 mg solution for injection RxNorm: 2371767 04/04/2018 No longer Active ketorolac 30 mg/mL injection solution RxNorm: 800461 2Milliliter 04/04/2018 No longer Active Kenalog 40 mg/mL suspension for injection RxNorm: 0953156 Milliliter 12/24/2017 No longer Active Kenalog 40 mg/mL suspension for injection RxNorm: 2478603 1Milliliter 03/25/2017 No longer Active Kenalog 40 mg/mL suspension for injection RxNorm: 6309661 Milliliter 12/08/2016 No longer Active ceftriaxone 1 gram solution for injection RxNorm: 3845273 03/01/2015 No longer Active ceftriaxone 1 gram solution for injection RxNorm: 8949846 02/28/2015 No longer Active ceftriaxone 1 gram solution for injection RxNorm: 4520282 02/27/2015 No longer Active ceftriaxone 1 gram solution for injection RxNorm: 9440313 02/26/2015 No longer Active ceftriaxone 1 gram solution for injection RxNorm: 0250482 02/25/2015 No longer Active Immunizations Vaccine Codes [...] sent to ref lab 07/21/2018 Free T4 Ogr141 FREE T4 1.07 ng/dL 04/04/2018 Tsh Ord6 TSH (3rd IS) 1.93 uIU/mL 04/04/2018 Urine Culture Ucult Preliminary NO Growth Day 1 03/28/2018 Urine Culture Ucult Complete NO Growth Day 2 03/28/2018 Urine Culture Ucult Complete >100,000 col/ml aerobic growth sent to ref lab 11/19/2017 B12 Mqk166 B12 712.00 pg/ml 09/28/2017 C-Reactive Protein Qnt Crqnt CRP 0.1 mg/dl 09/23/2017 Comp Metabolic Gkg091 NA 139 mEq/L 09/23/2017 Comp Metabolic Ota997 K 4.8 mEq/L 09/23/2017 Comp Metabolic Jbh266 CL 104 mEq/L 09/23/2017 Comp Metabolic Oeb571 CO2 28.0 mEq/L 09/23/2017 Comp Metabolic Wvh861 ANION GAP 12 09/23/2017 Comp Metabolic Rwm132 GLUCOSE 92 mg/dL 09/23/2017 Comp Metabolic Hzb593 Creat 0.7 mg/dL 09/23/2017 Comp Metabolic Jfp070 eGFR 91 ml/min/1.73m2 09/23/2017 Comp Metabolic Nyv737 BUN 11 mg/dL 09/23/2017 Comp Metabolic Omm025 B/C Ratio 16.4 Ratio 09/23/2017 Comp Metabolic Dzn552 CALCIUM 9.0 mg/dL 09/23/2017 Comp Metabolic Jcg785 ALK PHOS 76 U/L 09/23/2017 Comp Metabolic Vcm446 AST(SGOT) 24 U/L 09/23/2017 Comp Metabolic Nkg020 ALT(SGPT) 21 U/L 09/23/2017 Comp Metabolic Lrc453 BILI T 0.3 mg/dL 09/23/2017 Comp Metabolic Fnj331 ALBUMIN 4.1 g/dL 09/23/2017 Comp Metabolic Gjd011 TPRO 6.2 g/dL 09/23/2017 Comp Metabolic Xmv371 GLOB 2.1 g/dL 09/23/2017 Comp Metabolic Ljk402 A/G Ratio 1.9 Ratio 09/23/2017 Comp Metabolic Kkm081 Osmo 277 mOsmo 09/23/2017 Sed Rate Ord21 ESR 3 mm/hr 09/22/2017 Vitamin D 25 Oh Jgh2567 VITAMIN D, 25 HYDROXY 78.79 ng/mL 09/22/2017 [...] 30.6 pg 09/22/2017 Cbc With Differential Ord2 [place]% 10.5 % 09/22/2017 Cbc With Differential Ord2 [...] 2.37 K/ul 09/22/2017 Cbc With Differential Ord2 [place] ABS# 0.9 K/ul 09/22/2017 Cbc With Differential Ord2 Eos ABS# 0.2 K/ul 09/22/2017 Cbc With Differential Ord2 Baso ABS# 0.0 K/ul 09/22/2017 Free T4 Wdu773 FREE T4 0.99 ng/dL 09/22/2017 %Hba1C Qlu873 % HbA1c 60736- 6 6.0 % 12/10/2016 %Hba1C Cfc492 Gluc Ave 126 mg/dL 12/10/2016 Tsh Ord6 hTSH II 0.89 uIU/mL 12/09/2016 Free T4 Nhn269 FREE T4 0.99 ng/dL 12/09/2016 Comp Metabolic Ocx613 NA 138 mEq/L 12/09/2016 Comp Metabolic Cre422 K 5.2 mEq/L 12/09/2016 Comp Metabolic Puy232 CL 104 mEq/L 12/09/2016 Comp Metabolic Tmb981 CO2 29.0 mEq/L 12/09/2016 Comp Metabolic Fxq021 ANION GAP 10 12/09/2016 Comp Metabolic Tdq890 GLUCOSE 135 mg/dL 12/09/2016 Comp Metabolic Vhm351 Creat 0.8 mg/dL 12/09/2016 Comp Metabolic Dsd757 eGFR 79 ml/min/1.73m2 12/09/2016 Comp Metabolic Ahe129 BUN 18 mg/dL 12/09/2016 Comp Metabolic Isw760 B/C Ratio 23.7 Ratio 12/09/2016 Comp Metabolic Rbc698 CALCIUM 9.5 mg/dL 12/09/2016 Comp Metabolic Mdx185 ALK PHOS 73 U/L 12/09/2016 Comp Metabolic Cub676 AST(SGOT) 24 U/L 12/09/2016 Comp Metabolic Tgz960 ALT(SGPT) 20 U/L 12/09/2016 Comp Metabolic Zhq161 BILI T 0.3 mg/dL 12/09/2016 Comp Metabolic Mdo306 ALBUMIN 4.3 g/dL 12/09/2016 Comp Metabolic Ghx556 TPRO 6.4 g/dL 12/09/2016 Comp Metabolic Kjk300 GLOB 2.1 g/dL 12/09/2016 Comp Metabolic Ehv797 A/G Ratio 2.0 Ratio 12/09/2016 Comp Metabolic Pov923 Osmo 280 mOsmo 12/09/2016 Cbc With Differential [...] 31.3 pg 12/09/2016 Cbc With Differential Ord2 [place]% 6.5 % 12/09/2016 Cbc With Differential Ord2 [...] 1.84 K/ul 12/09/2016 Cbc With Differential Ord2 [place] ABS# 0.6 K/ul 12/09/2016 Cbc With Differential Ord2 Eos ABS# 0.1 K/ul 12/09/2016 Cbc With Differential Ord2 Baso ABS# 0.1 K/ul 12/09/2016 Tsh Ord6 hTSH II 1.19 uIU/mL 09/02/2016 Free T4 Onx721 FREE T4 0.97 ng/dL 09/02/2016 Comp Metabolic Fnd719 NA 137 mEq/L 06/01/2016 Comp Metabolic Kkw113 K 4.1 mEq/L 06/01/2016 Comp Metabolic Gsw179 CL 104 mEq/L 06/01/2016 Comp Metabolic Tul502 CO2 25.0 mEq/L 06/01/2016 Comp Metabolic Zkv315 ANION GAP 12 06/01/2016 Comp Metabolic Mbo792 GLUCOSE 108 mg/dL 06/01/2016 Comp Metabolic Ank974 Creat 0.8 mg/dL 06/01/2016 Comp Metabolic Gbe368 eGFR 80 ml/min/1.73m2 06/01/2016 Comp Metabolic Uqs293 BUN 15 mg/dL 06/01/2016 Comp Metabolic Sop957 B/C Ratio 20.0 Ratio 06/01/2016 Comp Metabolic Tmw119 CALCIUM 9.1 mg/dL 06/01/2016 Comp Metabolic Ywt271 ALK PHOS 89 U/L 06/01/2016 Comp Metabolic Atw405 AST(SGOT) 25 U/L 06/01/2016 Comp Metabolic Xhg754 ALT(SGPT) 20 U/L 06/01/2016 Comp Metabolic Nrx377 BILI T 0.3 mg/dL 06/01/2016 Comp Metabolic Tvl415 ALBUMIN 4.2 g/dL 06/01/2016 Comp Metabolic Sgl407 TPRO 6.2 g/dL 06/01/2016 Comp Metabolic Bcm410 GLOB 2.0 g/dL 06/01/2016 Comp Metabolic Tin210 A/G Ratio 2.1 Ratio 06/01/2016 Comp Metabolic Hmg119 Osmo 275 mOsmo 06/01/2016 Free T4 Xjn291 FREE T4 0.94 ng/dL 06/01/2016 Tsh Ord6 [...] 31.1 pg 06/01/2016 Cbc With Differential Ord2 [place]% 8.4 % 06/01/2016 Cbc With Differential Ord2 [...] 2.96 K/ul 06/01/2016 Cbc With Differential Ord2 [place] ABS# 0.6 K/ul 06/01/2016 Cbc With Differential [...] 31.3 pg 02/27/2016 Cbc With Differential Ord2 [place]% 10.0 % 02/27/2016 Cbc With Differential Ord2 [...] 2.28 K/ul 02/27/2016 Cbc With Differential Ord2 [place] ABS# 0.9 K/ul 02/27/2016 Cbc With Differential Ord2 Eos ABS# 0.3 K/ul 02/27/2016 Cbc With Differential Ord2 Baso ABS# 0.1 K/ul 02/27/2016 Tsh Ord6 hTSH II 0.18 uIU/mL 02/27/2016 Free T4 Rfn502 FREE T4 1.17 ng/dL 02/27/2016 Comp Metabolic Wea344 NA 135 mEq/L 02/27/2016 Comp Metabolic Fbj317 K 5.2 mEq/L 02/27/2016 Comp Metabolic Hds659 CL 102 mEq/L 02/27/2016 Comp Metabolic Kgl358 CO2 27.0 mEq/L 02/27/2016 Comp Metabolic Fjf387 ANION GAP 11 02/27/2016 Comp Metabolic Tmw165 GLUCOSE 93 mg/dL 02/27/2016 Comp Metabolic Ibo563 Creat 0.7 mg/dL 02/27/2016 Comp Metabolic Goo482 eGFR 91 ml/min/1.73m2 02/27/2016 Comp Metabolic Swn153 BUN 14 mg/dL 02/27/2016 Comp Metabolic Mgx707 B/C Ratio 20.9 Ratio 02/27/2016 Comp Metabolic Ick632 CALCIUM 9.4 mg/dL 02/27/2016 Comp Metabolic Pjs745 ALK PHOS 100 U/L 02/27/2016 Comp Metabolic Rft159 AST(SGOT) 23 U/L 02/27/2016 Comp Metabolic Xqo521 ALT(SGPT) 24 U/L 02/27/2016 Comp Metabolic Reh486 BILI T 0.2 mg/dL 02/27/2016 Comp Metabolic Dgx905 ALBUMIN 4.3 g/dL 02/27/2016 Comp Metabolic Azc504 TPRO 6.3 g/dL 02/27/2016 Comp Metabolic Zen181 GLOB 2.1 g/dL 02/27/2016 Comp Metabolic Usl425 A/G Ratio 2.1 Ratio 02/27/2016 Comp Metabolic Hcn488 Osmo 270 mOsmo 02/27/2016 Free T4 Pik558 FREE T4 1.03 ng/dL 05/10/2015 Comp Metabolic Sql647 NA 137 mEq/L 05/10/2015 Comp Metabolic Wdq859 K 4.4 mEq/L 05/10/2015 Comp Metabolic Rdx814 CL 102 mEq/L 05/10/2015 Comp Metabolic Izo035 CO2 28.0 mEq/L 05/10/2015 Comp Metabolic Wdz822 ANION GAP 11 05/10/2015 Comp Metabolic Iaz656 GLUCOSE 108 mg/dL 05/10/2015 Comp Metabolic Bvk040 Creat 0.7 mg/dL 05/10/2015 Comp Metabolic Pzp171 eGFR 86 ml/min/1.73m2 05/10/2015 Comp Metabolic Uei704 BUN 13 mg/dL 05/10/2015 Comp Metabolic Lzf305 B/C Ratio 18.3 Ratio 05/10/2015 Comp Metabolic Dpb994 CALCIUM 9.4 mg/dL 05/10/2015 Comp Metabolic Jmq352 ALK PHOS 94 U/L 05/10/2015 Comp Metabolic Etg304 AST(SGOT) 22 U/L 05/10/2015 Comp Metabolic Kvx395 ALT(SGPT) 21 U/L 05/10/2015 Comp Metabolic Gwi766 BILI T 0.3 mg/dL 05/10/2015 Comp Metabolic Lhk978 ALBUMIN 3.9 g/dL 05/10/2015 Comp Metabolic Pfg939 TPRO 6.1 g/dL 05/10/2015 Comp Metabolic Pxm965 GLOB 2.2 g/dL 05/10/2015 Comp Metabolic Pin611 A/G Ratio 1.7 Ratio 05/10/2015 Comp Metabolic Yjt433 Osmo 274 mOsmo 05/10/2015 Tsh Ord6 hTSH [...] 29.4 pg 05/10/2015 Cbc With Differential Ord2 [place]ner% 9.0 % 05/10/2015 Cbc With Differential Ord2 [...] 2.14 K/ul 05/10/2015 Cbc With Differential Ord2 [place] ABS# 0.5 K/ul 05/10/2015 Cbc With Differential [...] Ord30 C/HDL 3.8 Ratio 05/10/2015 Culture Urine [id number] URINE CULTURE SEE NOTES 02/25/2015 Culture Urine [id number] Continued Results 02/25/2015 Urine Culture Ucult Complete >100,000 col/ml aerobic growth sent to ref lab 02/22/2015 Free T4 [id number] FREE T4 1.16 ng/dL 02/11/2015 Tsh Ord6 [...] developed 07/13/2018 None Full Exam - General 1995 Constitutional general appearance Overall: in no acute distress 07/13/2018 None Full Exam - General 1994 Constitutional general appearance Overall: well nourished 07/13/2018 None Full Exam - General 1995 Eyes conjunctiva/eyelids Overall: conjunctiva clear 07/13/2018 None [...] lips 04/13/2018 None Full Exam - General 1995 Ears/Nose/Throat [...] Procedure Codes Date THER/PROPH/DIAG INJ SC/IM CPT-4: 40994 04/08/2018 ROCEPHIN, PER 250 MG CPT- 4: J0696 04/08/2018 THER/PROPH/DIAG INJ SC/IM CPT-4: 71679 04/07/2018 ROCEPHIN, PER 250 MG CPT- 4: J0696 04/07/2018 THER/PROPH/DIAG INJ SC/IM CPT-4: 88139 04/06/2018 ROCEPHIN, PER 250 MG CPT- 4: J0696 04/06/2018 THER/PROPH/DIAG INJ SC/IM CPT-4: 41035 04/05/2018 ROCEPHIN, PER 250 MG CPT- 4: J0696 04/05/2018 KETOROLAC TROMETHAMINE INJ CPT-4: J1885 04/05/2018 THER/PROPH/DIAG INJ SC/IM CPT-4: 79129 04/04/2018 ROCEPHIN, PER 250 MG CPT- 4: J0696 04/04/2018 KETOROLAC TROMETHAMINE INJ CPT-4: J1885 04/04/2018 URINALYSIS NONAUTO W/O SCOPE CPT-4: 65206 03/24/2018 PPPS, SUBSEQ VISIT CPT- 4: G0439 12/24/2017 THER/PROPH/DIAG INJ SC/IM CPT-4: 07792 12/24/2017 TRIAMCINOLONE ACET INJ NOS CPT-4: J3301 12/24/2017 THER/PROPH/DIAG INJ SC/IM CPT-4: 91355 11/18/2017 ROCEPHIN, PER 250 MG CPT- 4: J0696 11/18/2017 PRESCRIP TRANSMIT VIA ERX SY CPT-4: G8553 04/01/2017 TRIAMCINOLONE ACET INJ NOS CPT-4: J3301 03/25/2017 PPPS, SUBSEQ VISIT CPT- 4: G0439 12/23/2016 THER/PROPH/DIAG INJ SC/IM CPT-4: 79503 12/08/2016 TRIAMCINOLONE ACET INJ NOS CPT-4: J3301 12/08/2016 PRESCRIP TRANSMIT VIA ERX SY CPT-4: G8553 12/08/2016 PRESCRIP TRANSMIT VIA ERX SY CPT-4: G8553 11/30/2016 URINALYSIS NONAUTO W/O SCOPE CPT-4: 26198 07/08/2016 PRESCRIP TRANSMIT VIA ERX SY CPT-4: G8553 06/01/2016 PRESCRIP TRANSMIT VIA ERX SY CPT-4: G8553 02/27/2016 THER/PROPH/DIAG INJ SC/IM CPT-4: 44191 03/01/2015 ROCEPHIN, PER 250 MG CPT- 4: J0696 03/01/2015 THER/PROPH/DIAG INJ SC/IM CPT-4: 28135 02/28/2015 ROCEPHIN, PER 250 MG CPT- 4: J0696 02/28/2015 THER/PROPH/DIAG INJ SC/IM CPT-4: 41832 02/27/2015 ROCEPHIN, PER 250 MG CPT- 4: J0696 02/27/2015 THER/PROPH/DIAG INJ SC/IM CPT-4: 16852 02/26/2015 ROCEPHIN, PER 250 MG CPT- 4: J0696 02/26/2015 THER/PROPH/DIAG INJ SC/IM CPT-4: 57231 02/25/2015 ROCEPHIN, PER 250 MG CPT- 4: J0696 02/25/2015 URINALYSIS NONAUTO W/O SCOPE CPT-4: 04721 02/21/2015 Vital Signs Date Vital 07/20/2018 Blood Pressure 1: 140/66 Code: 8480-6 BMI: 28.0 Code: 74237-1 Heart Rate 1: 64 bpm Height: 5'3" SpO2: 96% Weight: 158 lbs 07/13/2018 Blood Pressure 1: 144/60 Code: 8480-6 BMI: 28.0 Code: 30616-2 Heart Rate 1: 66 bpm Height: 5'3" SpO2: 98% Weight: 158 lbs 06/08/2018 Blood Pressure 1: 132/76 Code: 8480-6 BMI: 28.0 Code: 54809-1 Heart Rate 1: 70 bpm Height: 5'3" SpO2: 98% Weight: 158 lbs 05/30/2018 Blood Pressure 1: 136/72 Code: 8480-6 BMI: 28.0 Code: 16594-8 Heart Rate 1: 84 bpm Height: 5'3" Weight: 158 lbs 05/10/2018 Blood Pressure 1: 130/72 Code: 8480-6 BMI: 28.2 Code: 20211-9 Heart Rate 1: 70 bpm Height: 5'3" [...] 1: 134/58 Code: 8480-6 BMI: 27.8 Code: 05784-1 Heart Rate 1: 85 bpm Height: 5'3" SpO2: 96% Weight: 157 lbs 03/24/2018 Blood Pressure 1: 128/82 Code: 8480-6 BMI: 27.8 Code: 47860-3 Heart Rate 1: 84 bpm Height: 5'3" SpO2: 97% Weight: 157 lbs 03/01/2018 Blood Pressure 1: 136/70 Code: 8480-6 BMI: 27.8 Code: 30526-2 Heart Rate 1: 70 bpm Height: 5'3" SpO2: 96% Weight: 157 lbs 12/24/2017 Height: Weight: 11/18/2017 Blood Pressure 1: 164/74 Code: 8480-6 BMI: 27.6 Code: 61814-1 Heart Rate 1: 70 bpm Height: 5'3" SpO2: 96% Weight: 156 lbs 11/03/2017 Blood Pressure 1: 118/72 Code: 8480-6 BMI: 27.6 Code: 95525-6 Heart Rate 1: 82 bpm Height: 5'3" SpO2: 96% Weight: 156 lbs 09/22/2017 Blood Pressure 1: 136/68 Code: 8480-6 BMI: 27.6 Code: 16956-0 Heart Rate 1: 70 bpm Height: 5'3" SpO2: 97% Weight: 156 lbs 04/01/2017 Blood Pressure 1: 144/82 Code: 8480-6 Heart Rate 1: 68 bpm Height: 5'3" SpO2: 97% Weight: 03/25/2017 Blood Pressure 1: 116/70 Code: 8480-6 BMI: 26.7 Code: 15093-7 Heart Rate 1: 67 bpm Height: 5'3" SpO2: 98% Weight: 151 lbs 12/23/2016 BMI: 26.7 Code: 78774-4 Height: 5'3" Weight: 151 lbs 12/22/2016 Blood Pressure 1: 142/60 Code: 8480-6 BMI: 26.7 Code: 76192-9 Heart Rate 1: 67 bpm Height: 5'3" SpO2: 98% Weight: 151 lbs 12/08/2016 Blood Pressure 1: 140/72 Code: 8480-6 Heart Rate 1: 72 bpm Height: 5'3" SpO2: 97% Weight: 11/30/2016 Blood Pressure 1: 128/80 Code: 8480-6 BMI: 26.7 Code: 76566-1 Heart Rate 1: 63 bpm Height: 5'3" SpO2: 96% Weight: 151 lbs 09/28/2016 Blood Pressure 1: 130/80 Code: 8480-6 BMI: 27.1 Code: 51456-8 Heart Rate 1: 80 bpm Height: 5'3" SpO2: 97% Weight: 153 lbs 07/06/2016 Blood Pressure 1: 162/72 Code: 8480-6 BMI: 27.6 Code: 43792-6 Heart Rate 1: 72 bpm Height: 5'3" SpO2: 98% Weight: 156 lbs 06/01/2016 Blood Pressure 1: 122/66 Code: 8480-6 BMI: 27.5 Code: 87671-9 Heart Rate 1: 73 bpm Height: 5'3" SpO2: 98% Weight: 155 lbs 8 oz 02/27/2016 Blood Pressure 1: 126/68 Code: 8480-6 BMI: 26.9 Code: 97421-8 Heart Rate 1: 70 bpm Height: 5'3" SpO2: 98% Weight: 152 lbs 09/10/2015 Blood Pressure 1: 130/70 Code: 8480-6 BMI: 26.9 Code: 78589-5 Heart Rate 1: 72 bpm Height: 5'3" SpO2: 97% Weight: 152 lbs 05/14/2015 Blood Pressure 1: 138/82 Code: 8480-6 BMI: 26.4 Code: 73353-6 Heart Rate 1: 75 bpm Height: 5'3" SpO2: 98% Weight: 149 lbs 02/11/2015 Blood Pressure 1: 128/72 Code: 8480-6 BMI: 25.5 Code: 03235-4 Heart Rate 1: 73 bpm Height: 5'3" [...] Dysuria[ICD10: R30.0] [facility] CPT-4: 03827 07/20/2018 ([id number]) 28678 EST. PATIENT, LEVEL III Diagnosis: Essential (primary) hypertension[ICD10: I10] Diagnosis: Atrophy of thyroid (acquired)[ICD10: E03.4] [facility] CPT-4: 75537 07/13/2018 97502 EST. PATIENT, LEVEL III Diagnosis: Other fatigue[ICD10: R53.83] Diagnosis: Essential (primary) hypertension[ICD10: I10] Bridget Cortez MD, [facility] CPT-4: 84141 06/08/2018 75948 EST. PATIENT, LEVEL IV Diagnosis: Essential (primary) hypertension[ICD10: I10] Diagnosis: Other fatigue[ICD10: R53.83] Diagnosis: Other allergic rhinitis[ICD10: J30.89] Bridget Cortez MD, [facility] CPT- 4: 48182 05/30/2018 66834 EST. PATIENT, LEVEL IV Diagnosis: Essential (primary) hypertension[ICD10: I10] Diagnosis: Other fatigue[ICD10: R53.83] Bridget Cortez MD, [facility] CPT-4: 20219 05/10/2018 72091 EST. PATIENT, LEVEL IV Diagnosis: Low back pain[ICD10: M54.5] Diagnosis: Essential (primary) hypertension[ICD10: I10] Diagnosis: Other fatigue[ICD10: R53.83] Diagnosis: Other malaise[ICD10: R53.81] Bridget Cortez MD, [facility] CPT-4: 89255 04/21/2018 47797 EST. PATIENT, LEVEL III Diagnosis: Other fatigue[ICD10: R53.83] Diagnosis: Otalgia, right ear[ICD10: H92.01] Bridget Cortez MD, [facility] CPT-4: 06237 04/13/2018 ([id number]) 85460 EST. PATIENT, LEVEL III Diagnosis: Essential (primary) hypertension[ICD10: I10] Diagnosis: Dysuria[ICD10: R30.0] Diagnosis: Nausea[ICD10: R11.0] Diagnosis: Headache[ICD10: R51] Elen Cortez MD, [facility] CPT-4: 42843 04/04/2018 04865 EST. PATIENT, LEVEL III Diagnosis: Other acute sinusitis[ICD10: J01.80] Diagnosis: Dizziness and giddiness[ICD10: R42] Diagnosis: Dysuria[ICD10: R30.0] Diagnosis: Candidal stomatitis[ICD10: B37.0] Diagnosis: Essential (primary) hypertension[ICD10: I10] Diagnosis: Other fatigue[ICD10: R53.83] Diagnosis: Other malaise[ICD10: R53.81] Bridget Cortez MD, [facility] CPT-4: 05759 04/01/2018 ([id number]) 75705 EST. 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 PATIENT, LEVEL IV Diagnosis: Otalgia, right ear[ICD10: H92.01] Diagnosis: Headache[ICD10: R51] Diagnosis: Other fatigue[ICD10: R53.83] Diagnosis: Abnormal findings on diagnostic imaging of other specified body structures[ICD10: R93.89] Elen Cortez MD, [facility] CPT-4: 18511 03/01/2018 67566 EST. PATIENT, LEVEL III Diagnosis: Acute cystitis with hematuria[ICD10: N30.01] Bridget Cortez MD, [facility] CPT-4: 70691 11/18/2017 24094 EST. PATIENT, LEVEL IV Diagnosis: Other acute sinusitis[ICD10: J01.80] Diagnosis: Otalgia, right ear[ICD10: H92.01] Bridget Cortez MD, [facility] CPT-4: 09745 11/03/2017 57275 EST. PATIENT, LEVEL III Diagnosis: Other fatigue[ICD10: R53.83] Diagnosis: Other malaise[ICD10: R53.81] Diagnosis: Pain in left knee[ICD10: M25.562] Diagnosis: Pain in right knee[ICD10: M25.561] Bridget Cortez MD, [facility] CPT-4: 12834 09/22/2017 ([id number]) 80518 EST. PATIENT, LEVEL III Diagnosis: Cough[ICD10: R05] Diagnosis: Acute bronchitis due to other specified organisms[ICD10: J20.8] Elen Cortze MD, [facility] CPT-4: 36371 04/01/2017 ([id number]) 66743 EST. PATIENT, LEVEL III Diagnosis: Otalgia, right ear[ICD10: H92.01] Diagnosis: Other allergic rhinitis[ICD10: J30.89] Shiela Cortez MD, [facility] CPT-4: 74596 03/25/2017 ([id number]) 51070 EST. PATIENT, LEVEL III Diagnosis: Benign paroxysmal vertigo, bilateral[ICD10: H81.13] Shiela Cortez MD, [facility] CPT-4: 26898 12/22/2016 ([id number]) 47655 EST. PATIENT, LEVEL IV Diagnosis: Benign paroxysmal vertigo, bilateral[ICD10: H81.13] Diagnosis: Other allergic rhinitis[ICD10: J30.89] Diagnosis: Hypothyroidism, unspecified[ICD10: E03.9] Shiela Cortez MD, [facility] CPT-4: 71951 12/08/2016 ([id number]) 00219 EST. PATIENT, LEVEL IV Diagnosis: Atrophy of thyroid (acquired)[ICD10: E03.4] Diagnosis: Essential (primary) hypertension[ICD10: I10] Diagnosis: Mixed hyperlipidemia[ICD10: E78.2] Elen Cortez MD, [facility] CPT- 4: 60975 11/30/2016 87774 EST. PATIENT, LEVEL IV Diagnosis: Headache[ICD10: R51] Diagnosis: Other fatigue[ICD10: R53.83] Diagnosis: Dizziness and giddiness[ICD10: R42] Bridget Cortez MD, [facility] CPT- 4: 43041 09/28/2016 04504 EST. PATIENT, LEVEL IV Diagnosis: Essential (primary) hypertension[ICD10: I10] Diagnosis: Headache[ICD10: R51] Bridget Cortez MD, [facility] CPT-4: 78131 07/06/2016 ([id number]) 48052 EST. PATIENT, LEVEL IV Diagnosis: Essential (primary) hypertension[ICD10: I10] Diagnosis: Atrophy of thyroid (acquired)[ICD10: E03.4] Diagnosis: Mixed hyperlipidemia[ICD10: E78.2] Elen Cortez MD, [facility] CPT- 4: 25007 06/01/2016 57564 EST. PATIENT, LEVEL IV Diagnosis: Acute laryngopharyngitis[ICD10: J06.0] Diagnosis: Other allergic rhinitis[ICD10: J30.89] Diagnosis: Other specified hypothyroidism[ICD10: E03.8] Diagnosis: Other fatigue[ICD10: R53.83] Bridget Cortez MD, [facility] CPT-4: 84949 02/27/2016 ([id number]) 97898 EST. PATIENT, LEVEL III Diagnosis: Essential (primary) hypertension[ICD10: I10] Diagnosis: Mixed hyperlipidemia[ICD10: E78.2] [facility] CPT- 4: 82835 09/10/2015 ([id number]) 43824 EST. PATIENT, LEVEL IV Diagnosis: Essential (primary) hypertension[ICD10: I10] Diagnosis: Hypothyroidism, unspecified[ICD10: E03.9] Diagnosis: Unspecified osteoarthritis, unspecified site[ICD10: M19.90] Elen Cortez MD, [facility] CPT-4: 24247 05/14/2015 ([id number]) OFFICE VISIT, NEW - LEVEL 4 Diagnosis: Essential (primary) hypertension[ICD10: I10] Diagnosis: Hypothyroidism, unspecified[ICD10: E03.9] Diagnosis: Unspecified osteoarthritis, unspecified site[ICD10: M19.90] Elen Cortez MD, [facility] CPT-4: 97142 02/11/2015 Plan of Care Planned Activity Notes Codes Status Date Visit Plan: UTI - pt with positive urinalysis - culture sent if appropriate. Antibiotic electronically prescribed to pt's pharmacy of choice. Pt to call if symptoms do not improve. 07/20/2018 Appointment: Bridget Velazco WPtel: [address] [place], [place] [address] (10 min) Simple 07/20/2018 Patient Education: Patient [...] of control. 07/13/2018 Appointment: Elen Cortez WPtel: [facility]3 [facility] (30 min) Complex 07/13/2018 Patient Education: [...] home. 06/08/2018 Appointment: Bridget Velazco WPtel: [phone] [facility] (15 min) Moderate 06/08/2018 Patient Education: Patient [...] spray. 05/30/2018 Appointment: Bridget Velazco WPtel: [phone] [facility] (15 min) Moderate 05/30/2018 Patient Education: Patient [...] or concerns. 05/10/2018 Appointment: Bridget Velazco WPtel: [facility]5 [facility] (15 min) Moderate 05/10/2018 Patient Education: Patient Medication Summary Completed 05/10/2018 Appointment: Elen Cortez WPtel: [facility]8 [facility] (15 min) Moderate 05/05/2018 Referral: Wan Steven [...] or concerns. 04/21/2018 Appointment: [facility] Velazco [facility]Ptel[facility] [place] (15 min) Moderate 04/21/2018 Patient Education: Patient Medication Summary Completed 04/21/2018 Patient Education: Back Pain Completed 04/21/2018 Appointment: Bridget Velazco WPtel: [facility]7 [facility] [place] (15 min) Moderate 04/14/2018 Care [...] Saini. 04/13/2018 Appointment: Bridget Velazco WPtel: [phone] [facility] (30 min) Complex 04/13/2018 Patient Education: Patient Medication Summary Completed 04/13/2018 Appointment: Nurse Visit 04/08/2018 Appointment: Bridget Velazco WPtel: [phone] [facility] (15 min) Moderate 04/08/2018 Patient Education: Patient Medication Summary Completed 04/08/2018 Appointment: Injection 04/07/2018 Patient Education: Patient Medication Summary Completed 04/07/2018 Appointment: Injection 04/06/2018 Patient Education: Patient Medication Summary Completed 04/06/2018 Appointment: Injection 04/05/2018 Appointment: Elen Cortez WPtel: [facility]1 [facility] (15 min) Moderate 04/05/2018 Patient Education: Patient [...] toradol today. 04/04/2018 Appointment: Elen Cortez WPtel: [facility] [place] (10 min) Simple 04/04/2018 Patient Education: Patient Medication Summary Completed 04/04/2018 Patient Education: Patient Medication Summary Completed 04/04/2018 Patient Education: Patient Medication Summary Completed 04/04/2018 Care Plan: Referral Order SNOMED-CT : [id number] Pending 04/04/2018 Visit Plan: Dysuria, dizziness, fatigue, [...] show improvement. 04/01/2018 Appointment: Bridget Velazco WPtel: [address] [place], [place] [id number] (15 min) Moderate 04/01/2018 Patient Education: Patient Medication Summary Completed 04/01/2018 Visit Plan: Sinusitis - Pt has acute infection - pain in face, maxillary region, Pt informed to use decongestant, RX given to patient, sinus rinses also recommended. Call if symptoms do not show improvement. Dysuria - rx for antibiotic sent to pharmacy. 03/24/2018 Appointment: Elen Cortez WPtel: [address] [place], [place] [phone] (15 min) Moderate 03/24/2018 Patient Education: Patient [...] improve. 03/01/2018 Appointment: [phone] (15 min) Moderate 03/01/2018 Patient Education: Patient [...] spray. 12/24/2017 Appointment: [phone] [facility] - Annual Wellness Visit 12/24/2017 Patient Education: Patient Medication Summary Completed 12/24/2017 Appointment: [phone] [facility] (15 min) Moderate 11/30/2017 Appointment: Lab [...] not improve. 11/18/2017 Appointment: Bridget Velazco WPtel: [facility]1 [facility] (15 min) Moderate 11/18/2017 Patient Education: Patient Medication Summary Completed 11/18/2017 Visit Plan: Sinusitis - Pt has acute infection - pain in face, maxillary region, Pt informed to use decongestant, RX given to patient, sinus rinses also recommended. Call if symptoms do not show improvement. 11/03/2017 Appointment: Bridget Velazco WPtel: [facility]8 [facility] (15 min) Moderate 11/03/2017 Patient Education: [...] not improve. 09/22/2017 Appointment: Bridget Velazco WPtel: [facility]5 [facility] (15 min) Moderate 09/22/2017 Patient Education: Patient Medication Summary Completed 09/22/2017 Visit Plan: Bronchitis - acute case of bronchitis identified. Pt has been given antibiotics, breathing treatments as appropriate, and pt has been instructed to call if symptoms are not improved, or if symptoms acutely worsen. 04/01/2017 Appointment: Elen Cortez WPtel: [facility]9 [facility] (15 min) Moderate 04/01/2017 Patient Education: Patient [...] allergy spray. 03/25/2017 Appointment: Shiela Srivastava WPtel: [facility]6 [phone] (10 min) Simple 03/25/2017 Appointment: Elen Cortez WPtel: [facility]5 [facility] (15 min) Moderate 03/25/2017 Patient Education: Patient [...] care surrogate. 12/23/2016 Appointment: Bridget Velazco WPtel: [facility]2 [facility] [facility] - Annual Wellness Visit 12/23/2016 Patient Education: Patient Medication Summary Completed 12/23/2016 Visit Plan: Vertigo-discussed PT for vestibular exercises-patient wants to wait since symptoms are improving-continue anti histamine as directed- meclizine as needed 12/22/2016 Appointment: Shiela Srivastava WPtel: [facility]9 [phone] (30 min) Complex 12/22/2016 Patient Education: [...] control. 12/08/2016 Appointment: Shiela Srivastava WPtel: [phone] [place] [phone] (30 min) Complex 12/08/2016 Patient Education: Patient [...] medications. 11/30/2016 Appointment: Elen Cortez WPtel: [phone] [facility] (15 min) Moderate 11/30/2016 Patient Education: Patient [...] concerns. 09/28/2016 Appointment: [phone] (30 min) Complex 09/28/2016 [...] concerns. 07/06/2016 Appointment: [phone] [facility] (15 min) Moderate 07/06/2016 Patient Education: [...] improving 06/01/2016 Appointment: Elen Cortez WPtel: [phone] [facility] (15 min) Moderate 06/01/2016 Patient Education: Patient [...] Completed 09/27/2015 Care Plan: SCREENINGMAMMOGRAPHYDIGITAL LOINC : 81398-0 Pending 09/27/2015 Visit Plan: Hypertension - well [...] colonoscopy 09/10/2015 Appointment: [facility] Cortez [facility]Ptel: [phone] [place] (15 min) Moderate 09/10/2015 Patient Education: [...] [facility] Cortez [facility]Ptel: [phone] (15 min) Moderate 05/14/2015 Patient Education: Patient Medication Summary Completed 05/14/2015 Patient Education: Hypertension Completed 05/14/2015 Care Plan: Referral Order SNOMED-CT : [id number] Ordered 05/14/2015 Patient Education: Patient Medication Summary Completed 03/01/2015 Appointment: Nurse Visit 02/28/2015 Patient Education: Patient Medication Summary Completed 02/28/2015 Patient Education: Patient Medication Summary Completed 02/27/2015 Appointment: Nurse Visit 02/26/2015 Patient Education: Patient Medication Summary Completed 02/26/2015 Appointment: Injection 02/25/2015 Patient Education: Patient Medication Summary Completed 02/25/2015 Patient Education: Patient Medication Summary Completed 02/21/2015 Care Plan: URINALYSIS NONAUTO W/O [facility] : 23658-9 Ordered 02/21/2015 Visit Plan: Hypertension - well [...] symptoms. 02/11/2015 Appointment: Elen Cortez WPtel: [address] [place], [place] [address] New Patient 02/11/2015 Patient Education: Patient Medication [...] - will check labs . Hypertension - The patient has been [...] clinic with any questions or concerns. . Hypertension - The patient [...] spray in the nasal steroid allergy spray. increase lisinopril to 20mg twice a day. [...] shot given today. Headache - toradol today. appointment with Dr. Cortez on 06/21 at [...] in blood pressure readings at home. . BPPV - Benign Paroxysmal Positional Vertigo [...] months based on previous levels of control. Start cefdinir if you get a fever [...]
--- OUTSIDE RECORDS SUMMARY | 2018-11-10 18:30 | XMS REPORT | CCD ---
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 Role Phone PP Unavailable CCM Unavailable Summary Purpose Interface Exchange Insurance Providers Payer name Policy type / Coverage type Covered republican ID Effective Begin Date Effective End Date WPS Medicare Part B Medicare Part B [id number] Unknown [employer] Life Insurance Medicare Part B [id number] Unknown Family history Mother Diagnosis Age At [...] spouses - 02/11/[address]: 680737117 Never smoker 02/11/2015 Alcohol history Unknown occasionally drinks alcohol 02/11/2015 Allergies, Adverse Reactions, Alerts Substance Reaction Codes Entered Date Inactivated Date Status CODEINE RxNorm: 2670 02/11/2015 No Inactive Date Active allergy Unknown 12/23/2016 No Inactive Date Active ciprofloxacin rash, RxNorm: 89358 02/26/2015 No Inactive Date Active hydrocodone Unknown [...] Fill Instructions cefdinir 300 mg capsule RxNorm: 209620 1 Capsule(s) PO BID 07/20/2018 07/29/2018 Active Pyridium 200 mg tablet RxNorm: 9244716 1 Tablet(s) PO TID 07/20/2018 07/24/2018 Active meclizine 25 mg tablet RxNorm: 046594 1 Tablet(s) TID as needed 07/14/2018 No Stop Date Active dizziness levocetirizine 5 mg tablet RxNorm: 904227 1 Tablet(s) PO daily 05/30/2018 08/27/2018 Active nystatin 100,000 unit/gram topical cream RxNorm: 683898 1 Gram(s) TOP TID as needed 05/30/2018 No Stop Date Active metoprolol succinate ER 50 mg tablet,extended release 24 hr RxNorm: 778675 1 Tablet(s) daily may take 1 extra tab daily if systolic bp elevated 05/03/2018 11/28/2018 Active metoprolol succinate ER 50 mg tablet,extended release 24 hr RxNorm: 574886 Tablet(s) Tablet(s) TAKE 1 TABLET BY MOUTH DAILY 05/03/2018 05/02/2018 Inactive lisinopril 20 mg tablet RxNorm: 321048 TAKE 1 TABLET BY MOUTH TWICE DAILY 04/22/2018 09/18/2018 Active Generic For:*PRINIVIL 20 MG TABLET 04/22/2018 9:57:59 AM levocetirizine 5 mg tablet RxNorm: 386582 1 Tablet(s) PO daily 04/22/2018 04/21/2018 Inactive Singulair 10 mg tablet RxNorm: 122960 1 Tablet(s) PO QHS 04/22/2018 04/21/2018 Inactive Singulair 10 mg tablet RxNorm: 006081 1 Tablet(s) PO QHS 04/22/2018 05/12/2018 Inactive levocetirizine 5 mg tablet RxNorm: 170448 1 Tablet(s) PO daily 04/22/2018 05/21/2018 Inactive ceftriaxone 500 mg solution for injection RxNorm: 9721888 Inj 04/08/2018 04/08/2018 Inactive ceftriaxone 500 mg solution for injection RxNorm: 3223289 Inj 04/07/2018 04/07/2018 Inactive ceftriaxone 500 mg solution for injection RxNorm: 1346526 Inj 04/06/2018 04/06/2018 Inactive ketorolac 60 mg/2 mL intramuscular solution RxNorm: 9820660 Milliliter(s) IM 04/05/2018 04/05/2018 Inactive ceftriaxone 500 mg solution for injection RxNorm: 1563211 Inj 04/05/2018 04/05/2018 Inactive ondansetron 4 mg disintegrating tablet RxNorm: 165801 1 Tablet(s) PO TID as needed nausea 04/04/2018 No Stop Date Active ketorolac 30 mg/mL injection solution RxNorm: 445968 2 Milliliter(s) Inj 04/04/2018 04/04/2018 Inactive ceftriaxone 500 mg solution for injection RxNorm: 8393741 Inj 04/04/2018 04/04/2018 Inactive nystatin 100,000 unit/mL oral suspension RxNorm: 442228 4 Milliliter(s) PO QID 04/01/2018 04/05/2018 Inactive doxycycline hyclate 100 mg tablet RxNorm: 2633195 1 Tablet(s) PO BID 04/01/2018 04/10/2018 Inactive amoxicillin 500 mg capsule RxNorm: 572445 1 Capsule(s) PO TID 03/24/2018 04/02/2018 Inactive prednisone 10 mg tablet RxNorm: 138909 1 Tablet(s) PO UD 6 pills on day 1 and 2 and then decrease by one pill every other day until prescription is done 03/24/2018 05/12/2018 Inactive metoprolol succinate ER 50 mg tablet,extended release 24 hr RxNorm: 518447 Tablet(s) TAKE 1 TABLET BY MOUTH DAILY 03/21/2018 05/02/2018 Inactive PLEASE SEND REFILL REQUESTS ELECTRONICALLY!! Synthroid 88 mcg tablet RxNorm: 979427 TAKE 1 TABLET BY MOUTH DAILY 03/08/2018 08/04/2018 Active 03/07/2018 11:21:21 AM pravastatin 80 mg tablet RxNorm: 430912 Tablet(s) 1 Tablet(s) PO daily 03/01/2018 02/23/2019 Active Kenalog 40 mg/mL suspension for injection RxNorm: 4275690 Milliliter(s) Inj 12/24/2017 12/24/2017 Inactive cetirizine 10 mg tablet RxNorm: 4315822 TAKE 1 TABLET BY MOUTH DAILY 12/21/2017 04/19/2018 Inactive Generic For:*ZYRTEC 10 MG TABLET 12/21/2017 10:08:05 AM Synthroid 88 mcg tablet RxNorm: 492006 TAKE 1 TABLET BY MOUTH DAILY 12/07/2017 03/06/2018 Inactive 12/06/2017 11:46:49 AM Lipitor 80 mg tablet RxNorm: 943215 1 Tablet(s) PO daily 11/29/2017 02/28/2018 Inactive pravastatin 80 mg tablet RxNorm: 644299 1 Tablet(s) PO daily 11/29/2017 11/29/2017 Inactive Lipitor 80 mg tablet RxNorm: 642089 1 Tablet(s) PO daily 11/29/2017 11/28/2017 Inactive lisinopril 20 mg tablet RxNorm: 316989 TAKE 1 TABLET BY MOUTH TWICE DAILY 11/23/2017 04/21/2018 Inactive Generic For:*PRINIVIL 20 MG TABLET 11/23/2017 11:29:44 AM Macrobid 100 mg capsule RxNorm: 115553 1 Capsule(s) PO BID 11/19/2017 11/25/2017 Inactive Macrobid 100 mg capsule RxNorm: 539138 1 Capsule(s) PO BID 11/19/2017 11/18/2017 Inactive Lomotil 2.5 mg-0.025 mg tablet RxNorm: 8296409 1 -2 Tablet(s) PO TID as needed 11/19/2017 11/25/2017 Inactive Lomotil 2.5 mg-0.025 mg tablet RxNorm: 5191894 1 -2 Tablet(s) PO TID as needed 11/19/2017 11/18/2017 Inactive Pyridium 200 mg tablet RxNorm: 3538021 1 Tablet(s) PO TID as needed 11/18/2017 11/22/2017 Inactive Augmentin 500 mg-125 mg tablet RxNorm: 547075 1 Tablet(s) PO TID 11/18/2017 11/27/2017 Inactive Keflex 500 mg capsule RxNorm: 965836 1 Capsule(s) PO TID 11/03/2017 11/09/2017 Inactive Denavir 1 % topical cream RxNorm: 743699 1 TOP TID as needed cold sores 11/01/2017 01/29/2018 Inactive Denavir 1 % topical cream RxNorm: 920923 1 TOP TID as needed cold sores 11/01/2017 10/31/2017 Inactive Synthroid 88 mcg tablet RxNorm: 328260 TAKE 1 TABLET BY MOUTH DAILY 09/29/2017 11/27/2017 Inactive 09/29/2017 12:58:07 PM pravastatin 80 mg tablet RxNorm: 703855 1 Tablet(s) PO daily 08/31/2017 08/30/2017 Inactive pravastatin 80 mg tablet RxNorm: 521602 1 Tablet(s) PO daily 08/31/2017 11/28/2017 Inactive Synthroid 88 mcg tablet RxNorm: 049193 TAKE 1 TABLET BY MOUTH DAILY 08/30/2017 09/28/2017 Inactive 08/30/2017 10:53:26 AM metoprolol succinate ER 50 mg tablet,extended release 24 hr RxNorm: 127094 Tablet(s) TAKE 1 TABLET BY MOUTH DAILY 08/17/2017 03/14/2018 Inactive PLEASE SEND REFILL REQUESTS ELECTRONICALLY!! lisinopril 20 mg tablet RxNorm: 228696 TAKE 1 TABLET BY MOUTH TWICE DAILY 06/18/2017 11/14/2017 Inactive Generic For:*PRINIVIL 20 MG TABLET 06/18/2017 1:31:00 PM Synthroid 88 mcg tablet RxNorm: 217908 TAKE 1 TABLET BY MOUTH DAILY 05/24/2017 08/21/2017 Inactive 05/24/2017 2:13:21 PM cetirizine 10 mg tablet RxNorm: 6843242 1 Tablet(s) PO daily 05/17/2017 12/12/2017 Inactive Zithromax Z-Russell 250 mg capsule RxNorm: 256181 1 Capsule(s) PO 04/02/2017 04/05/2017 Inactive Zithromax Z-Russell 250 mg tablet RxNorm: 590756 1 Tablet(s) PO 04/02/2017 04/01/2017 Inactive Zithromax Z-Russell 250 mg capsule RxNorm: 801127 1 Capsule(s) PO 04/02/2017 04/01/2017 Inactive Zithromax Z-Russell 250 mg tablet RxNorm: 708873 1 Tablet(s) PO 04/02/2017 04/06/2017 Inactive Ventolin HFA 90 mcg/actuation aerosol inhaler RxNorm: 857232 2 INH QID as needed - for the first 3 days inhale at least two puffs three times daily, then use as needed for shortness of breath 04/01/2017 04/30/2017 Inactive Keflex 500 mg capsule RxNorm: 582378 1 Capsule(s) PO TID 04/01/2017 04/01/2017 Inactive meclizine 25 mg tablet RxNorm: 511685 Tablet(s) 1 Tablet(s) PO Q6 PRN 03/25/2017 03/24/2017 Inactive dizziness Kenalog 40 mg/mL suspension for injection RxNorm: 7909879 1 Milliliter(s) Inj 03/25/2017 03/25/2017 Inactive meclizine 25 mg tablet RxNorm: 792009 1 Tablet(s) PO Q6 PRN 1 Tablet(s) PO Q6 PRN 03/25/2017 05/12/2018 Inactive dizziness meclizine 25 mg tablet RxNorm: 581280 1 Tablet(s) PO Q6 PRN 02/15/2017 03/24/2017 Inactive dizziness lisinopril 20 mg tablet RxNorm: 922838 1 Tablet(s) PO BID 01/15/2017 06/13/2017 Inactive metoprolol succinate ER 50 mg tablet,extended release 24 hr RxNorm: 076126 TAKE 1 TABLET BY MOUTH DAILY 01/07/2017 08/04/2017 Inactive Generic For:TOPROL XL 50MG TAB 01/07/2017 12:38:23 PM Synthroid 88 mcg tablet RxNorm: 820542 TAKE 1 TABLET BY MOUTH DAILY 12/25/2016 05/23/2017 Inactive 12/25/2016 9:47:08 AM Zithromax Z-Russell 250 mg tablet RxNorm: 143341 Tablet(s) PO UD 12/23/2016 03/24/2017 Inactive meclizine 25 mg tablet RxNorm: 802841 1 Tablet(s) PO Q6 PRN 12/08/2016 12/20/2016 Inactive dizziness Kenalog 40 mg/mL suspension for injection RxNorm: 2395051 Milliliter(s) Inj 12/08/2016 12/08/2016 Inactive meloxicam 15 mg tablet RxNorm: 121312 1 Tablet(s) PO daily 11/30/2016 12/20/2016 Inactive cetirizine 10 mg tablet RxNorm: 0157537 1 Tablet(s) PO daily 10/23/2016 05/16/2017 Inactive pravastatin 40 mg tablet RxNorm: 720759 1 Tablet(s) PO BID 08/20/2016 08/30/2017 Inactive Cancel 80 mg tab lisinopril 20 mg tablet RxNorm: 892798 1 Tablet(s) PO BID 08/12/2016 12/22/2016 Inactive Synthroid 88 mcg tablet RxNorm: 753215 1 Tablet(s) PO TAKE ONE (1) TABLET BY MOUTH DAILY 07/28/2016 12/24/2016 Inactive decrease dose hydralazine 25 mg tablet RxNorm: 371361 1 Tablet(s) PO TID as needed for Systolic blood pressure over 170 07/06/2016 12/20/2016 Inactive lisinopril 20 mg tablet RxNorm: 023655 1 Tablet(s) PO BID to replace your other lisinopril dose 07/06/2016 08/04/2016 Inactive lisinopril 10 mg tablet RxNorm: 343719 TAKE ONE TABLET BY MOUTH TWICE DAILY 06/10/2016 08/11/2016 Inactive Generic For:ZESTRIL 10 MG TABLET 06/09/2016 12:58:50 PM triamcinolone acetonide 0.1 % topical cream RxNorm: 8891171 1 Application TOP TID as needed 06/01/2016 No Stop Date Active nystatin 100,000 unit/gram topical cream RxNorm: 144187 1 Gram(s) TOP TID as needed 06/01/2016 05/29/2018 Inactive metoprolol succinate ER 50 mg tablet,extended release 24 hr RxNorm: 071629 1 Tablet(s) PO daily 05/26/2016 12/21/2016 Inactive cetirizine 10 mg tablet RxNorm: 7691750 1 Tablet(s) PO daily 03/23/2016 10/18/2016 Inactive Synthroid 88 mcg tablet RxNorm: 973647 1 Tablet(s) PO TAKE ONE (1) TABLET BY MOUTH DAILY 03/06/2016 03/07/2018 Inactive Brand name only! Synthroid 88 mcg tablet RxNorm: 033609 1 Tablet(s) PO TAKE ONE (1) TABLET BY MOUTH DAILY 03/04/2016 03/05/2016 Inactive decrease dose cetirizine 10 mg tablet RxNorm: 0757934 1 Tablet(s) PO daily 02/27/2016 03/22/2016 Inactive amoxicillin 500 mg capsule RxNorm: 326050 1 Capsule(s) PO TID 02/27/2016 03/04/2016 Inactive lisinopril 10 mg tablet RxNorm: 375717 TAKE ONE TABLET BY MOUTH TWICE DAILY 02/06/2016 06/04/2016 Inactive Generic For:ZESTRIL 10 MG TABLET 02/06/2016 12:16:38 PM Synthroid 100 mcg tablet RxNorm: 869069 TAKE ONE (1) TABLET BY MOUTH DAILY 01/03/2016 03/03/2016 Inactive 01/03/2016 10:35:14 AM N O T I C E Last quantity doesn't match original quantity lisinopril 10 mg tablet RxNorm: 085169 1 Tablet(s) PO BID 10/04/2015 01/31/2016 Inactive Synthroid 100 mcg tablet RxNorm: 752694 1 Tablet(s) PO daily 10/04/2015 01/02/2016 Inactive metoprolol succinate ER 50 mg tablet,extended release 24 hr RxNorm: 088799 1 Tablet(s) PO daily 10/04/2015 04/30/2016 Inactive Tylenol Arthritis 650 mg tablet,extended release RxNorm: 9805036 2 Tablet(s) PO TID 09/10/2015 No Stop Date Active metoprolol succinate ER 50 mg tablet,extended release 24 hr RxNorm: 497528 1 Tablet(s) PO daily 09/05/2015 10/03/2015 Inactive pravastatin 80 mg tablet RxNorm: 947289 1 Tablet(s) PO QHS 08/30/2015 08/30/2015 Inactive pravastatin 40 mg tablet RxNorm: 631328 1 Tablet(s) PO BID 08/30/2015 08/29/2015 Inactive Cancel 80 mg tab pravastatin 40 mg tablet RxNorm: 752001 1 Tablet(s) PO BID 08/30/2015 08/19/2016 Inactive Cancel 80 mg tab lisinopril 10 mg tablet RxNorm: 332589 1 Tablet(s) PO BID 06/13/2015 08/11/2016 Inactive lisinopril 10 mg tablet RxNorm: 623568 1 Tablet(s) PO BID 06/13/2015 10/03/2015 Inactive Synthroid 100 mcg tablet RxNorm: 335643 1 Tablet(s) PO daily 06/10/2015 10/03/2015 Inactive ceftriaxone 1 gram solution for injection RxNorm: 1779113 Inj 03/01/2015 03/01/2015 Inactive ceftriaxone 1 gram solution for injection RxNorm: 2391987 Inj 02/28/2015 02/28/2015 Inactive ceftriaxone 1 gram solution for injection RxNorm: 5381008 Inj 02/27/2015 02/27/2015 Inactive ceftriaxone 1 gram solution for injection RxNorm: 6897896 Inj 02/26/2015 02/26/2015 Inactive ceftriaxone 1 gram solution for injection RxNorm: 4590070 Inj 02/25/2015 02/25/2015 Inactive phenazopyridine 200 mg tablet RxNorm: 7646272 1 Tablet(s) PO Q8 02/21/2015 02/20/2015 Inactive Cipro 500 mg tablet RxNorm: 199488 1 Tablet(s) PO BID 02/21/2015 02/20/2015 Inactive phenazopyridine 200 mg tablet RxNorm: 6091332 1 Tablet(s) PO Q8 02/21/2015 02/25/2015 Inactive Cipro 500 mg tablet RxNorm: 884576 1 Tablet(s) PO BID 02/21/2015 02/27/2015 Inactive lisinopril 10 mg tablet RxNorm: 044602 1 Tablet(s) PO BID 02/14/2015 06/12/2015 Inactive metoprolol succinate ER 50 mg tablet,extended release 24 hr RxNorm: 055282 3/4 Tablet(s) PO daily 02/11/2015 09/04/2015 Inactive Voltaren 1 % topical gel RxNorm: 940715 2 Gram(s) TOP QID use this on affected joints up to four times daily. 02/11/2015 03/12/2015 Inactive Probiotic oral RxNorm: 6205 oral No Start Date Active aspirin 81 mg tablet RxNorm: 259622 1 Tablet(s) PO daily No Start Date Active Super B-Complex tablet RxNorm: 1 Tablet(s) PO No Start Date Active Super-D3+ oral RxNorm: oral No Start Date Active Prilosec OTC 20 mg tablet,delayed release RxNorm: 781518 2 Tablet(s) PO QAM No Start Date Active Flonase Allergy Relief 50 mcg/actuation nasal spray,suspension RxNorm: 8061297 1 [place] NASAL as needed No Start Date Active Move Free Ultra 40 mg-10 mg-3.3 mg tablet RxNorm: 1 Tablet(s) PO daily No Start Date Active metoprolol tartrate 50 mg tablet RxNorm: 924764 1 Tablet(s) PO daily No Start Date 02/10/2015 Inactive lisinopril 10 mg tablet RxNorm: 917689 1 Tablet(s) PO BID No Start Date 02/13/2015 Inactive pravastatin 80 mg tablet RxNorm: 649267 1 Tablet(s) PO daily No Start Date 08/29/2015 Inactive Flonase Allergy Relief 50 mcg/actuation nasal spray,suspension RxNorm: 2424727 1 [place] NASAL BID No Start Date 05/12/2018 Inactive Synthroid 100 mcg tablet RxNorm: 469959 1 Tablet(s) PO daily No Start Date 06/09/2015 Inactive lisinopril 40 mg tablet RxNorm: 229491 1 Tablet(s) PO BID No Start Date 02/28/2018 Inactive Tylenol Arthritis 650 mg tablet,extended release RxNorm: 8901902 4 Tablet(s) PO daily No Start Date 09/09/2015 Inactive Medication Administered Medication Codes Instructions Start Date Status ceftriaxone 500 mg solution for injection RxNorm: 1627219 04/08/2018 No longer Active ceftriaxone 500 mg solution for injection RxNorm: 7295946 04/07/2018 No longer Active ceftriaxone 500 mg solution for injection RxNorm: 2177916 04/06/2018 No longer Active ceftriaxone 500 mg solution for injection RxNorm: 6162482 04/05/2018 No longer Active ketorolac 60 mg/2 mL intramuscular solution RxNorm: 5760204 Milliliter 04/05/2018 No longer Active ceftriaxone 500 mg solution for injection RxNorm: 1631315 04/04/2018 No longer Active ketorolac 30 mg/mL injection solution RxNorm: 272778 2Milliliter 04/04/2018 No longer Active Kenalog 40 mg/mL suspension for injection RxNorm: 2745844 Milliliter 12/24/2017 No longer Active Kenalog 40 mg/mL suspension for injection RxNorm: 8883380 1Milliliter 03/25/2017 No longer Active Kenalog 40 mg/mL suspension for injection RxNorm: 5060494 Milliliter 12/08/2016 No longer Active ceftriaxone 1 gram solution for injection RxNorm: 2602786 03/01/2015 No longer Active ceftriaxone 1 gram solution for injection RxNorm: 5950706 02/28/2015 No longer Active ceftriaxone 1 gram solution for injection RxNorm: 7097649 02/27/2015 No longer Active ceftriaxone 1 gram solution for injection RxNorm: 9190217 02/26/2015 No longer Active ceftriaxone 1 gram solution for injection RxNorm: 8392874 02/25/2015 No longer Active Immunizations Vaccine Codes [...] sent to ref lab 07/21/2018 Free T4 Lub185 FREE T4 1.07 ng/dL 04/04/2018 Tsh Ord6 TSH (3rd IS) 1.93 uIU/mL 04/04/2018 Urine Culture Ucult Preliminary NO Growth Day 1 03/28/2018 Urine Culture Ucult Complete NO Growth Day 2 03/28/2018 Urine Culture Ucult Complete >100,000 col/ml aerobic growth sent to ref lab 11/19/2017 B12 Zxz122 B12 712.00 pg/ml 09/28/2017 C-Reactive Protein Qnt Crqnt CRP 0.1 mg/dl 09/23/2017 Comp Metabolic Lnq873 NA 139 mEq/L 09/23/2017 Comp Metabolic Nhw630 K 4.8 mEq/L 09/23/2017 Comp Metabolic Vga800 CL 104 mEq/L 09/23/2017 Comp Metabolic Ybs473 CO2 28.0 mEq/L 09/23/2017 Comp Metabolic Zcu980 ANION GAP 12 09/23/2017 Comp Metabolic Pbc765 GLUCOSE 92 mg/dL 09/23/2017 Comp Metabolic Aze419 Creat 0.7 mg/dL 09/23/2017 Comp Metabolic Xqq493 eGFR 91 ml/min/1.73m2 09/23/2017 Comp Metabolic Zuj551 BUN 11 mg/dL 09/23/2017 Comp Metabolic Ppl231 B/C Ratio 16.4 Ratio 09/23/2017 Comp Metabolic Smw877 CALCIUM 9.0 mg/dL 09/23/2017 Comp Metabolic Nen806 ALK PHOS 76 U/L 09/23/2017 Comp Metabolic Jgw156 AST(SGOT) 24 U/L 09/23/2017 Comp Metabolic Kee520 ALT(SGPT) 21 U/L 09/23/2017 Comp Metabolic Ake026 BILI T 0.3 mg/dL 09/23/2017 Comp Metabolic Shj036 ALBUMIN 4.1 g/dL 09/23/2017 Comp Metabolic Lcj979 TPRO 6.2 g/dL 09/23/2017 Comp Metabolic Nxh686 GLOB 2.1 g/dL 09/23/2017 Comp Metabolic Ylr974 A/G Ratio 1.9 Ratio 09/23/2017 Comp Metabolic Ice621 Osmo 277 mOsmo 09/23/2017 Sed Rate Ord21 ESR 3 mm/hr 09/22/2017 Vitamin D 25 Oh Uxo5080 VITAMIN D, 25 HYDROXY 78.79 ng/mL 09/22/2017 [...] 30.6 pg 09/22/2017 Cbc With Differential Ord2 [place]% 10.5 % 09/22/2017 Cbc With Differential Ord2 [...] 2.37 K/ul 09/22/2017 Cbc With Differential Ord2 [place] ABS# 0.9 K/ul 09/22/2017 Cbc With Differential Ord2 Eos ABS# 0.2 K/ul 09/22/2017 Cbc With Differential Ord2 Baso ABS# 0.0 K/ul 09/22/2017 Free T4 Pqo641 FREE T4 0.99 ng/dL 09/22/2017 %Hba1C Ckb429 % HbA1c 82484- 6 6.0 % 12/10/2016 %Hba1C Xvb020 Gluc Ave 126 mg/dL 12/10/2016 Tsh Ord6 hTSH II 0.89 uIU/mL 12/09/2016 Free T4 Nvp201 FREE T4 0.99 ng/dL 12/09/2016 Comp Metabolic Uue559 NA 138 mEq/L 12/09/2016 Comp Metabolic Qhf980 K 5.2 mEq/L 12/09/2016 Comp Metabolic Jlm298 CL 104 mEq/L 12/09/2016 Comp Metabolic Eav975 CO2 29.0 mEq/L 12/09/2016 Comp Metabolic Usf536 ANION GAP 10 12/09/2016 Comp Metabolic Ndb328 GLUCOSE 135 mg/dL 12/09/2016 Comp Metabolic Ibp657 Creat 0.8 mg/dL 12/09/2016 Comp Metabolic Bub151 eGFR 79 ml/min/1.73m2 12/09/2016 Comp Metabolic Twl382 BUN 18 mg/dL 12/09/2016 Comp Metabolic Cby116 B/C Ratio 23.7 Ratio 12/09/2016 Comp Metabolic Eea012 CALCIUM 9.5 mg/dL 12/09/2016 Comp Metabolic Kjt706 ALK PHOS 73 U/L 12/09/2016 Comp Metabolic Mca684 AST(SGOT) 24 U/L 12/09/2016 Comp Metabolic Hgi705 ALT(SGPT) 20 U/L 12/09/2016 Comp Metabolic Sxb595 BILI T 0.3 mg/dL 12/09/2016 Comp Metabolic Ujy936 ALBUMIN 4.3 g/dL 12/09/2016 Comp Metabolic Usu847 TPRO 6.4 g/dL 12/09/2016 Comp Metabolic Zow515 GLOB 2.1 g/dL 12/09/2016 Comp Metabolic Lfj337 A/G Ratio 2.0 Ratio 12/09/2016 Comp Metabolic Mpg876 Osmo 280 mOsmo 12/09/2016 Cbc With Differential [...] 31.3 pg 12/09/2016 Cbc With Differential Ord2 [place]% 6.5 % 12/09/2016 Cbc With Differential Ord2 [...] 1.84 K/ul 12/09/2016 Cbc With Differential Ord2 [place] ABS# 0.6 K/ul 12/09/2016 Cbc With Differential Ord2 Eos ABS# 0.1 K/ul 12/09/2016 Cbc With Differential Ord2 Baso ABS# 0.1 K/ul 12/09/2016 Tsh Ord6 hTSH II 1.19 uIU/mL 09/02/2016 Free T4 Uue700 FREE T4 0.97 ng/dL 09/02/2016 Comp Metabolic Fjm756 NA 137 mEq/L 06/01/2016 Comp Metabolic Ejx748 K 4.1 mEq/L 06/01/2016 Comp Metabolic Lgu564 CL 104 mEq/L 06/01/2016 Comp Metabolic Ath284 CO2 25.0 mEq/L 06/01/2016 Comp Metabolic Wjg601 ANION GAP 12 06/01/2016 Comp Metabolic Xmw945 GLUCOSE 108 mg/dL 06/01/2016 Comp Metabolic Wdt285 Creat 0.8 mg/dL 06/01/2016 Comp Metabolic Wbv622 eGFR 80 ml/min/1.73m2 06/01/2016 Comp Metabolic Aox220 BUN 15 mg/dL 06/01/2016 Comp Metabolic Cjw658 B/C Ratio 20.0 Ratio 06/01/2016 Comp Metabolic Sfh766 CALCIUM 9.1 mg/dL 06/01/2016 Comp Metabolic Pog645 ALK PHOS 89 U/L 06/01/2016 Comp Metabolic Mha083 AST(SGOT) 25 U/L 06/01/2016 Comp Metabolic Qcd473 ALT(SGPT) 20 U/L 06/01/2016 Comp Metabolic Nmg160 BILI T 0.3 mg/dL 06/01/2016 Comp Metabolic Woz716 ALBUMIN 4.2 g/dL 06/01/2016 Comp Metabolic Oru347 TPRO 6.2 g/dL 06/01/2016 Comp Metabolic Qfr074 GLOB 2.0 g/dL 06/01/2016 Comp Metabolic Yvn564 A/G Ratio 2.1 Ratio 06/01/2016 Comp Metabolic Ert863 Osmo 275 mOsmo 06/01/2016 Free T4 Fca412 FREE T4 0.94 ng/dL 06/01/2016 Tsh Ord6 [...] 31.1 pg 06/01/2016 Cbc With Differential Ord2 [place]% 8.4 % 06/01/2016 Cbc With Differential Ord2 [...] 2.96 K/ul 06/01/2016 Cbc With Differential Ord2 [place] ABS# 0.6 K/ul 06/01/2016 Cbc With Differential [...] 31.3 pg 02/27/2016 Cbc With Differential Ord2 [place]% 10.0 % 02/27/2016 Cbc With Differential Ord2 [...] 2.28 K/ul 02/27/2016 Cbc With Differential Ord2 [place] ABS# 0.9 K/ul 02/27/2016 Cbc With Differential Ord2 Eos ABS# 0.3 K/ul 02/27/2016 Cbc With Differential Ord2 Baso ABS# 0.1 K/ul 02/27/2016 Tsh Ord6 hTSH II 0.18 uIU/mL 02/27/2016 Free T4 Mdr901 FREE T4 1.17 ng/dL 02/27/2016 Comp Metabolic Svd440 NA 135 mEq/L 02/27/2016 Comp Metabolic Ewc270 K 5.2 mEq/L 02/27/2016 Comp Metabolic Ruq580 CL 102 mEq/L 02/27/2016 Comp Metabolic Qdn202 CO2 27.0 mEq/L 02/27/2016 Comp Metabolic Rmk359 ANION GAP 11 02/27/2016 Comp Metabolic Zcj893 GLUCOSE 93 mg/dL 02/27/2016 Comp Metabolic Ahz893 Creat 0.7 mg/dL 02/27/2016 Comp Metabolic Rxb559 eGFR 91 ml/min/1.73m2 02/27/2016 Comp Metabolic Nzv056 BUN 14 mg/dL 02/27/2016 Comp Metabolic Blf403 B/C Ratio 20.9 Ratio 02/27/2016 Comp Metabolic Ocu959 CALCIUM 9.4 mg/dL 02/27/2016 Comp Metabolic Wkj422 ALK PHOS 100 U/L 02/27/2016 Comp Metabolic Eay418 AST(SGOT) 23 U/L 02/27/2016 Comp Metabolic Tjf468 ALT(SGPT) 24 U/L 02/27/2016 Comp Metabolic Tfi671 BILI T 0.2 mg/dL 02/27/2016 Comp Metabolic Gvg613 ALBUMIN 4.3 g/dL 02/27/2016 Comp Metabolic Qpf794 TPRO 6.3 g/dL 02/27/2016 Comp Metabolic Jdx196 GLOB 2.1 g/dL 02/27/2016 Comp Metabolic Zwt629 A/G Ratio 2.1 Ratio 02/27/2016 Comp Metabolic Mta021 Osmo 270 mOsmo 02/27/2016 Free T4 Vwe313 FREE T4 1.03 ng/dL 05/10/2015 Comp Metabolic Lda993 NA 137 mEq/L 05/10/2015 Comp Metabolic Lcb044 K 4.4 mEq/L 05/10/2015 Comp Metabolic Iqm387 CL 102 mEq/L 05/10/2015 Comp Metabolic Ree044 CO2 28.0 mEq/L 05/10/2015 Comp Metabolic Pfg683 ANION GAP 11 05/10/2015 Comp Metabolic Yli449 GLUCOSE 108 mg/dL 05/10/2015 Comp Metabolic Ael050 Creat 0.7 mg/dL 05/10/2015 Comp Metabolic Qqk936 eGFR 86 ml/min/1.73m2 05/10/2015 Comp Metabolic Itj734 BUN 13 mg/dL 05/10/2015 Comp Metabolic Uzz102 B/C Ratio 18.3 Ratio 05/10/2015 Comp Metabolic Wbc259 CALCIUM 9.4 mg/dL 05/10/2015 Comp Metabolic Fhe692 ALK PHOS 94 U/L 05/10/2015 Comp Metabolic Rjj696 AST(SGOT) 22 U/L 05/10/2015 Comp Metabolic Wzs675 ALT(SGPT) 21 U/L 05/10/2015 Comp Metabolic Tmq599 BILI T 0.3 mg/dL 05/10/2015 Comp Metabolic Wau324 ALBUMIN 3.9 g/dL 05/10/2015 Comp Metabolic Fdq276 TPRO 6.1 g/dL 05/10/2015 Comp Metabolic Qut850 GLOB 2.2 g/dL 05/10/2015 Comp Metabolic Hye274 A/G Ratio 1.7 Ratio 05/10/2015 Comp Metabolic Xhf046 Osmo 274 mOsmo 05/10/2015 Tsh Ord6 hTSH [...] 29.4 pg 05/10/2015 Cbc With Differential Ord2 [place]% 9.0 % 05/10/2015 Cbc With Differential Ord2 [...] 2.14 K/ul 05/10/2015 Cbc With Differential Ord2 [place] ABS# 0.5 K/ul 05/10/2015 Cbc With Differential [...] Ord30 C/HDL 3.8 Ratio 05/10/2015 Culture Urine [id number] URINE CULTURE SEE NOTES 02/25/2015 Culture Urine [id number] Continued Results 02/25/2015 Urine Culture Ucult Complete >100,000 col/ml aerobic growth sent to ref lab 02/22/2015 Free T4 [id number] FREE T4 1.16 ng/dL 02/11/2015 Tsh Ord6 [...] Procedure Codes Date THER/PROPH/DIAG INJ SC/IM CPT-4: 81601 04/08/2018 ROCEPHIN, PER 250 MG CPT- 4: J0696 04/08/2018 THER/PROPH/DIAG INJ SC/IM CPT-4: 38005 04/07/2018 ROCEPHIN, PER 250 MG CPT- 4: J0696 04/07/2018 THER/PROPH/DIAG INJ SC/IM CPT-4: 26302 04/06/2018 ROCEPHIN, PER 250 MG CPT- 4: J0696 04/06/2018 THER/PROPH/DIAG INJ SC/IM CPT-4: 29912 04/05/2018 ROCEPHIN, PER 250 MG CPT- 4: J0696 04/05/2018 KETOROLAC TROMETHAMINE INJ CPT-4: J1885 04/05/2018 THER/PROPH/DIAG INJ SC/IM CPT-4: 11510 04/04/2018 ROCEPHIN, PER 250 MG CPT- 4: J0696 04/04/2018 KETOROLAC TROMETHAMINE INJ CPT-4: J1885 04/04/2018 URINALYSIS NONAUTO W/O SCOPE CPT-4: 93572 03/24/2018 PPPS, SUBSEQ VISIT CPT- 4: G0439 12/24/2017 THER/PROPH/DIAG INJ SC/IM CPT-4: 38210 12/24/2017 TRIAMCINOLONE ACET INJ NOS CPT-4: J3301 12/24/2017 THER/PROPH/DIAG INJ SC/IM CPT-4: 41546 11/18/2017 ROCEPHIN, PER 250 MG CPT- 4: J0696 11/18/2017 PRESCRIP TRANSMIT VIA ERX SY CPT-4: G8553 04/01/2017 TRIAMCINOLONE ACET INJ NOS CPT-4: J3301 03/25/2017 PPPS, SUBSEQ VISIT CPT- 4: G0439 12/23/2016 THER/PROPH/DIAG INJ SC/IM CPT-4: 11704 12/08/2016 TRIAMCINOLONE ACET INJ NOS CPT-4: J3301 12/08/2016 PRESCRIP TRANSMIT VIA ERX SY CPT-4: G8553 12/08/2016 PRESCRIP TRANSMIT VIA ERX SY CPT-4: G8553 11/30/2016 URINALYSIS NONAUTO W/O SCOPE CPT-4: 80576 07/08/2016 PRESCRIP TRANSMIT VIA ERX SY CPT-4: G8553 06/01/2016 PRESCRIP TRANSMIT VIA ERX SY CPT-4: G8553 02/27/2016 THER/PROPH/DIAG INJ SC/IM CPT-4: 30382 03/01/2015 ROCEPHIN, PER 250 MG CPT- 4: J0696 03/01/2015 THER/PROPH/DIAG INJ SC/IM CPT-4: 72711 02/28/2015 ROCEPHIN, PER 250 MG CPT- 4: J0696 02/28/2015 THER/PROPH/DIAG INJ SC/IM CPT-4: 87310 02/27/2015 ROCEPHIN, PER 250 MG CPT- 4: J0696 02/27/2015 THER/PROPH/DIAG INJ SC/IM CPT-4: 77975 02/26/2015 ROCEPHIN, PER 250 MG CPT- 4: J0696 02/26/2015 THER/PROPH/DIAG INJ SC/IM CPT-4: 78000 02/25/2015 ROCEPHIN, PER 250 MG CPT- 4: J0696 02/25/2015 URINALYSIS NONAUTO W/O SCOPE CPT-4: 63667 02/21/2015 Vital Signs Date Vital 07/20/2018 Blood Pressure 1: 140/66 Code: 8480-6 BMI: 28.0 Code: 36624-6 Heart Rate 1: 64 bpm Height: 5'3" SpO2: 96% Weight: 158 lbs 07/13/2018 Blood Pressure 1: 144/60 Code: 8480-6 BMI: 28.0 Code: 23719-7 Heart Rate 1: 66 bpm Height: 5'3" SpO2: 98% Weight: 158 lbs 06/08/2018 Blood Pressure 1: 132/76 Code: 8480-6 BMI: 28.0 Code: 04769-6 Heart Rate 1: 70 bpm Height: 5'3" SpO2: 98% Weight: 158 lbs 05/30/2018 Blood Pressure 1: 136/72 Code: 8480-6 BMI: 28.0 Code: 57850-4 Heart Rate 1: 84 bpm Height: 5'3" Weight: 158 lbs 05/10/2018 Blood Pressure 1: 130/72 Code: 8480-6 BMI: 28.2 Code: 72224-1 Heart Rate 1: 70 bpm Height: 5'3" [...] 1: 134/58 Code: 8480-6 BMI: 27.8 Code: 80268-4 Heart Rate 1: 85 bpm Height: 5'3" SpO2: 96% Weight: 157 lbs 03/24/2018 Blood Pressure 1: 128/82 Code: 8480-6 BMI: 27.8 Code: 26867-3 Heart Rate 1: 84 bpm Height: 5'3" SpO2: 97% Weight: 157 lbs 03/01/2018 Blood Pressure 1: 136/70 Code: 8480-6 BMI: 27.8 Code: 73592-9 Heart Rate 1: 70 bpm Height: 5'3" SpO2: 96% Weight: 157 lbs 12/24/2017 Height: Weight: 11/18/2017 Blood Pressure 1: 164/74 Code: 8480-6 BMI: 27.6 Code: 15776-1 Heart Rate 1: 70 bpm Height: 5'3" SpO2: 96% Weight: 156 lbs 11/03/2017 Blood Pressure 1: 118/72 Code: 8480-6 BMI: 27.6 Code: 34793-6 Heart Rate 1: 82 bpm Height: 5'3" SpO2: 96% Weight: 156 lbs 09/22/2017 Blood Pressure 1: 136/68 Code: 8480-6 BMI: 27.6 Code: 89808-1 Heart Rate 1: 70 bpm Height: 5'3" SpO2: 97% Weight: 156 lbs 04/01/2017 Blood Pressure 1: 144/82 Code: 8480-6 Heart Rate 1: 68 bpm Height: 5'3" SpO2: 97% Weight: 03/25/2017 Blood Pressure 1: 116/70 Code: 8480-6 BMI: 26.7 Code: 27231-8 Heart Rate 1: 67 bpm Height: 5'3" SpO2: 98% Weight: 151 lbs 12/23/2016 BMI: 26.7 Code: 92623-5 Height: 5'3" Weight: 151 lbs 12/22/2016 Blood Pressure 1: 142/60 Code: 8480-6 BMI: 26.7 Code: 50510-8 Heart Rate 1: 67 bpm Height: 5'3" SpO2: 98% Weight: 151 lbs 12/08/2016 Blood Pressure 1: 140/72 Code: 8480-6 Heart Rate 1: 72 bpm Height: 5'3" SpO2: 97% Weight: 11/30/2016 Blood Pressure 1: 128/80 Code: 8480-6 BMI: 26.7 Code: 51097-0 Heart Rate 1: 63 bpm Height: 5'3" SpO2: 96% Weight: 151 lbs 09/28/2016 Blood Pressure 1: 130/80 Code: 8480-6 BMI: 27.1 Code: 90675-9 Heart Rate 1: 80 bpm Height: 5'3" SpO2: 97% Weight: 153 lbs 07/06/2016 Blood Pressure 1: 162/72 Code: 8480-6 BMI: 27.6 Code: 84101-6 Heart Rate 1: 72 bpm Height: 5'3" SpO2: 98% Weight: 156 lbs 06/01/2016 Blood Pressure 1: 122/66 Code: 8480-6 BMI: 27.5 Code: 57044-3 Heart Rate 1: 73 bpm Height: 5'3" SpO2: 98% Weight: 155 lbs 8 oz 02/27/2016 Blood Pressure 1: 126/68 Code: 8480-6 BMI: 26.9 Code: 82504-6 Heart Rate 1: 70 bpm Height: 5'3" SpO2: 98% Weight: 152 lbs 09/10/2015 Blood Pressure 1: 130/70 Code: 8480-6 BMI: 26.9 Code: 56514-5 Heart Rate 1: 72 bpm Height: 5'3" SpO2: 97% Weight: 152 lbs 05/14/2015 Blood Pressure 1: 138/82 Code: 8480-6 BMI: 26.4 Code: 04734-1 Heart Rate 1: 75 bpm Height: 5'3" SpO2: 98% Weight: 149 lbs 02/11/2015 Blood Pressure 1: 128/72 Code: 8480-6 BMI: 25.5 Code: 07050-4 Heart Rate 1: 73 bpm Height: 5'3" [...] Dysuria[ICD10: R30.0] [facility] CPT-4: 10808 07/20/2018 ([id number]) 46288 EST. PATIENT, LEVEL III Diagnosis: Essential (primary) hypertension[ICD10: I10] Diagnosis: Atrophy of thyroid (acquired)[ICD10: E03.4] [facility] CPT-4: 97481 07/13/2018 10659 EST. PATIENT, LEVEL III Diagnosis: Other fatigue[ICD10: R53.83] Diagnosis: Essential (primary) hypertension[ICD10: I10] Bridget Cortez MD, [facility] CPT-4: 62474 06/08/2018 05206 EST. PATIENT, LEVEL IV Diagnosis: Essential (primary) hypertension[ICD10: I10] Diagnosis: Other fatigue[ICD10: R53.83] Diagnosis: Other allergic rhinitis[ICD10: J30.89] Bridget Cortez MD, [facility] CPT- 4: 34159 05/30/2018 18434 EST. PATIENT, LEVEL IV Diagnosis: Essential (primary) hypertension[ICD10: I10] Diagnosis: Other fatigue[ICD10: R53.83] Bridget Cortez MD, [facility] CPT-4: 06255 05/10/2018 16737 EST. PATIENT, LEVEL IV Diagnosis: Low back pain[ICD10: M54.5] Diagnosis: Essential (primary) hypertension[ICD10: I10] Diagnosis: Other fatigue[ICD10: R53.83] Diagnosis: Other malaise[ICD10: R53.81] Bridget Cortez MD, [facility] CPT-4: 69051 04/21/2018 97633 EST. PATIENT, LEVEL III Diagnosis: Other fatigue[ICD10: R53.83] Diagnosis: Otalgia, right ear[ICD10: H92.01] Bridget Cortez MD, [facility] CPT-4: 06378 04/13/2018 ([id number]) 86790 EST. PATIENT, LEVEL III Diagnosis: Essential (primary) hypertension[ICD10: I10] Diagnosis: Dysuria[ICD10: R30.0] Diagnosis: Nausea[ICD10: R11.0] Diagnosis: Headache[ICD10: R51] Elen Cortez MD, [facility] CPT-4: 26104 04/04/2018 35486 EST. PATIENT, LEVEL III Diagnosis: Other acute sinusitis[ICD10: J01.80] Diagnosis: Dizziness and giddiness[ICD10: R42] Diagnosis: Dysuria[ICD10: R30.0] Diagnosis: Candidal stomatitis[ICD10: B37.0] Diagnosis: Essential (primary) hypertension[ICD10: I10] Diagnosis: Other fatigue[ICD10: R53.83] Diagnosis: Other malaise[ICD10: R53.81] Bridget Cortez MD, [facility] CPT-4: 47143 04/01/2018 ([id number]) 76161 EST. 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 CPT-4: 10750 03/24/2018 ([id number]) 62532 EST. PATIENT, LEVEL IV Diagnosis: Otalgia, right ear[ICD10: H92.01] Diagnosis: Headache[ICD10: R51] Diagnosis: Other fatigue[ICD10: R53.83] Diagnosis: Abnormal findings on diagnostic imaging of other specified body structures[ICD10: R93.89] Elen Cortez MD, [facility] CPT-4: 90156 03/01/2018 84829 EST. PATIENT, LEVEL III Diagnosis: Acute cystitis with hematuria[ICD10: N30.01] Bridget Cortez MD, [facility] CPT-4: 35980 11/18/2017 75758 EST. PATIENT, LEVEL IV Diagnosis: Other acute sinusitis[ICD10: J01.80] Diagnosis: Otalgia, right ear[ICD10: H92.01] Bridget Cortez MD, [facility] CPT-4: 78025 11/03/2017 40853 EST. PATIENT, LEVEL III Diagnosis: Other fatigue[ICD10: R53.83] Diagnosis: Other malaise[ICD10: R53.81] Diagnosis: Pain in left knee[ICD10: M25.562] Diagnosis: Pain in right knee[ICD10: M25.561] Bridget Cortez MD, [facility] CPT-4: 18997 09/22/2017 ([id number]) 54607 EST. PATIENT, LEVEL III Diagnosis: Cough[ICD10: R05] Diagnosis: Acute bronchitis due to other specified organisms[ICD10: J20.8] Elen Cortez MD, [facility] CPT-4: 69426 04/01/2017 ([id number]) 57962 EST. PATIENT, LEVEL III Diagnosis: Otalgia, right ear[ICD10: H92.01] Diagnosis: Other allergic rhinitis[ICD10: J30.89] Shiela Cortez MD, [facility] CPT-4: 18976 03/25/2017 ([id number]) 42472 EST. PATIENT, LEVEL III Diagnosis: Benign paroxysmal vertigo, bilateral[ICD10: H81.13] Shiela Cortez MD, [facility] CPT-4: 09446 12/22/2016 ([id number]) 00286 EST. PATIENT, LEVEL IV Diagnosis: Benign paroxysmal vertigo, bilateral[ICD10: H81.13] Diagnosis: Other allergic rhinitis[ICD10: J30.89] Diagnosis: Hypothyroidism, unspecified[ICD10: E03.9] Shiela Cortez MD, [facility] CPT-4: 24138 12/08/2016 ([id number]) 69513 EST. PATIENT, LEVEL IV Diagnosis: Atrophy of thyroid (acquired)[ICD10: E03.4] Diagnosis: Essential (primary) hypertension[ICD10: I10] Diagnosis: Mixed hyperlipidemia[ICD10: E78.2] Elen Cortez MD, [facility] CPT- 4: 55896 11/30/2016 06002 EST. PATIENT, LEVEL IV Diagnosis: Headache[ICD10: R51] Diagnosis: Other fatigue[ICD10: R53.83] Diagnosis: Dizziness and giddiness[ICD10: R42] Bridget Cortez MD, [facility] CPT- 4: 51852 09/28/2016 77800 EST. PATIENT, LEVEL IV Diagnosis: Essential (primary) hypertension[ICD10: I10] Diagnosis: Headache[ICD10: R51] Bridget Cortez MD, [facility] CPT-4: 99529 07/06/2016 ([id number]) 13916 EST. PATIENT, LEVEL IV Diagnosis: Essential (primary) hypertension[ICD10: I10] Diagnosis: Atrophy of thyroid (acquired)[ICD10: E03.4] Diagnosis: Mixed hyperlipidemia[ICD10: E78.2] Elen Cortez MD, [facility] CPT- 4: 23557 06/01/2016 25919 EST. PATIENT, LEVEL IV Diagnosis: Acute laryngopharyngitis[ICD10: J06.0] Diagnosis: Other allergic rhinitis[ICD10: J30.89] Diagnosis: Other specified hypothyroidism[ICD10: E03.8] Diagnosis: Other fatigue[ICD10: R53.83] Bridget Cortez MD, [facility] CPT-4: 91623 02/27/2016 ([id number]) 06655 EST. PATIENT, LEVEL III Diagnosis: Essential (primary) hypertension[ICD10: I10] Diagnosis: Mixed hyperlipidemia[ICD10: E78.2] [facility] CPT- 4: 69870 09/10/2015 ([id number]) 09549 EST. PATIENT, LEVEL IV Diagnosis: Essential (primary) hypertension[ICD10: I10] Diagnosis: Hypothyroidism, unspecified[ICD10: E03.9] Diagnosis: Unspecified osteoarthritis, unspecified site[ICD10: M19.90] Elen Cortez MD, [facility] CPT-4: 24033 05/14/2015 ([id number]) OFFICE VISIT, NEW - LEVEL 4 Diagnosis: Essential (primary) hypertension[ICD10: I10] Diagnosis: Hypothyroidism, unspecified[ICD10: E03.9] Diagnosis: Unspecified osteoarthritis, unspecified site[ICD10: M19.90] Elen Cortez MD, [facility] CPT-4: 08168 02/11/2015 Plan of Care Planned Activity Notes Codes Status Date Visit Plan: UTI - pt with positive urinalysis - culture sent if appropriate. Antibiotic electronically prescribed to pt's pharmacy of choice. Pt to call if symptoms do not improve. 07/20/2018 Appointment: Bridget Velazco WPtel: [address] [place], [place] [address] (10 min) Simple 07/20/2018 Patient Education: Patient [...] of control. 07/13/2018 Appointment: Elen Cortez WPtel: [facility] (30 min) Complex 07/13/2018 Patient Education: Patient [...] home. 06/08/2018 Appointment: Bridget Velazco WPtel: [phone] [facility] (15 min) Moderate 06/08/2018 Patient Education: Patient [...] spray. 05/30/2018 Appointment: Bridget Velazco WPtel: [phone] [facility] (15 min) Moderate 05/30/2018 Patient Education: Patient [...] or concerns. 05/10/2018 Appointment: Bridget Velazco WPtel: [facility] (15 min) Moderate 05/10/2018 Patient Education: Patient Medication Summary Completed 05/10/2018 Appointment: Elen Cortez WPtel: [facility] (15 min) Moderate 05/05/2018 Referral: Wan Steven [...] or concerns. 04/21/2018 Appointment: Bridget Velazco WPtel: [facility] [place] (15 min) Moderate 04/21/2018 Patient Education: Patient Medication Summary Completed 04/21/2018 Patient Education: Back Pain Completed 04/21/2018 Appointment: Bridget Velazco WPtel: [facility] [place] (15 min) Moderate 04/14/2018 Care [...] Dr. Saini. 04/13/2018 Appointment: Bridget Velazco WPtel: [phone] [facility] (30 min) Complex 04/13/2018 Patient Education: Patient Medication Summary Completed 04/13/2018 Appointment: Nurse Visit 04/08/2018 Appointment: Bridget Velazco WPtel: [phone] [facility] (15 min) Moderate 04/08/2018 Patient Education: Patient Medication Summary Completed 04/08/2018 Appointment: Injection 04/07/2018 Patient Education: Patient Medication Summary Completed 04/07/2018 Appointment: Injection 04/06/2018 Patient Education: Patient Medication Summary Completed 04/06/2018 Appointment: Injection 04/05/2018 Appointment: Elen Cortez WPtel: [facility] (15 min) Moderate 04/05/2018 Patient Education: Patient [...] Cortez WPtel: [facility] [place] (10 min) Simple 04/04/2018 Patient Education: Patient Medication Summary Completed 04/04/2018 Patient Education: Patient Medication Summary Completed 04/04/2018 Patient Education: Patient Medication Summary Completed 04/04/2018 Care Plan: Referral Order SNOMED-CT : [id number] Pending 04/04/2018 Visit Plan: Dysuria, dizziness, fatigue, [...] show improvement. 04/01/2018 Appointment: Bridget Velazco WPtel: [address] [place], [place] [id number] (15 min) Moderate 04/01/2018 Patient Education: Patient Medication Summary Completed 04/01/2018 Visit Plan: Sinusitis - Pt has acute infection - pain in face, maxillary region, Pt informed to use decongestant, RX given to patient, sinus rinses also recommended. Call if symptoms do not show improvement. Dysuria - rx for antibiotic sent to pharmacy. 03/24/2018 Appointment: Elen Cortez WPtel: [address] [place], [place] [id number] (15 min) Moderate 03/24/2018 Patient Education: Patient [...] improve. 03/01/2018 Appointment: [facility]el[phone] (15 min) Moderate 03/01/2018 Patient [...] spray. 12/24/2017 Appointment: [facility]el[phone] [facility] - Annual Wellness Visit 12/24/2017 Patient Education: Patient Medication Summary Completed 12/24/2017 Appointment: [facility]el[phone] (15 min) Moderate 11/30/2017 Appointment: Lab [...] not improve. 11/18/2017 Appointment: Bridget Velazco WPtel: [facility]2 [facility] (15 min) Moderate 11/18/2017 Patient Education: Patient Medication Summary Completed 11/18/2017 Visit Plan: Sinusitis - Pt has acute infection - pain in face, maxillary region, Pt informed to use decongestant, RX given to patient, sinus rinses also recommended. Call if symptoms do not show improvement. 11/03/2017 Appointment: Bridget Velazco WPtel: [facility]4 [facility] (15 min) Moderate 11/03/2017 Patient Education: [...] WPtel: [facility]5 [facility] (15 min) Moderate 09/22/2017 Patient Education: Patient Medication Summary Completed 09/22/2017 Visit Plan: Bronchitis - acute case of bronchitis identified. Pt has been given antibiotics, breathing treatments as appropriate, and pt has been instructed to call if symptoms are not improved, or if symptoms acutely worsen. 04/01/2017 Appointment: Elen Cortez WPtel: [facility]8 [facility] (15 min) Moderate 04/01/2017 Patient Education: Patient [...] Srivastava WPtel: [facility]8 [phone] (10 min) Simple 03/25/2017 Appointment: Elen Cortez WPtel: [facility]5 [facility] (15 min) Moderate 03/25/2017 Patient Education: Patient [...] WPtel: [facility]7 [facility] [facility] - Annual Wellness Visit 12/23/2016 Patient Education: Patient Medication Summary Completed 12/23/2016 Visit Plan: Vertigo-discussed PT for vestibular exercises-patient wants to wait since symptoms are improving-continue anti histamine as directed- meclizine as needed 12/22/2016 Appointment: Shiela Srivastava WPtel: [phone] (30 min) Complex 12/22/2016 Patient Education: [...] control. 12/08/2016 Appointment: Shiela Srivastava WPtel: [phone] [place] [phone] (30 min) Complex 12/08/2016 Patient Education: Patient [...] 11/30/2016 Appointment: Elen Cortez WPtel: [phone] [facility] (15 min) Moderate 11/30/2016 Patient Education: Patient [...] concerns. 09/28/2016 Appointment: [facility]el[phone] ([facility] min) Complex 09/28/2016 Patient Education: [...] concerns. 07/06/2016 Appointment: [facility]el[phone] (15 min) Moderate 07/06/2016 Patient Education: [...] improving 06/01/2016 Appointment: Elen Cortez WPtel: [phone] [facility] (15 min) Moderate 06/01/2016 Patient Education: Patient [...] labs 02/27/2016 Appointment: [facility]co [facility]Ptel[phone] (30 min) Complex 02/27/2016 Patient Education: Patient Medication Summary Completed 02/27/2016 Patient Education: Patient Medication Summary Completed 09/27/2015 Care Plan: SCREENINGMAMMOGRAPHYDIGITAL LOINC : 29877-4 Pending 09/27/2015 Visit Plan: Hypertension - well [...] colonoscopy 09/10/2015 Appointment: El[facility] Cortez WPtel: [phone] [place] (15 min) Moderate 09/10/2015 [...] [facility]Ptel: [facility] (15 min) Moderate 05/14/2015 Patient Education: Patient Medication Summary Completed 05/14/2015 Patient Education: Hypertension Completed 05/14/2015 Care Plan: Referral Order SNOMED-CT : [id number] Ordered 05/14/2015 Patient Education: Patient Medication Summary Completed 03/01/2015 Appointment: Nurse Visit 02/28/2015 Patient Education: Patient Medication Summary Completed 02/28/2015 Patient Education: Patient Medication Summary Completed 02/27/2015 Appointment: Nurse Visit 02/26/2015 Patient Education: Patient Medication Summary Completed 02/26/2015 Appointment: Injection 02/25/2015 Patient Education: Patient Medication Summary Completed 02/25/2015 Patient Education: Patient Medication Summary Completed 02/21/2015 Care Plan: URINALYSIS NONAUTO W/O [facility] : 61402-2 Ordered 02/21/2015 Visit Plan: Hypertension - well [...] symptoms. 02/11/2015 Appointment: Elen Cortez WPtel: [address] [place], [place] [address] New Patient 02/11/2015 Patient Education: Patient Medication [...]
--- OUTSIDE RECORDS SUMMARY | 2018-11-10 18:34 | XMS REPORT | CCD ---
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 Name Role Phone PP Unavailable CCM Unavailable Summary Purpose Interface Exchange Insurance Providers Payer name Policy type / Coverage type Covered libertarian ID Effective Begin Date Effective End Date WPS Medicare Part B Medicare Part B [id number] Unknown [place] [employer] Life Insurance Medicare Part B [id number] Unknown Family history Mother Diagnosis Age At [...] spouses - 02/11/[address]: 374995393 Never smoker 02/11/2015 Alcohol history Unknown occasionally drinks alcohol 02/11/2015 Allergies, Adverse Reactions, Alerts Substance Reaction Codes Entered Date Inactivated Date Status CODEINE RxNorm: 2670 02/11/2015 No Inactive Date Active allergy Unknown 12/23/2016 No Inactive Date Active ciprofloxacin rash, RxNorm: 41140 02/26/2015 No Inactive Date Active hydrocodone Unknown [...] 9: 388.70 ICD-10: H92.01 Active 03/25/2017 Unknown Dysuria [...] ICD- 9: 388.70 ICD-10: H92.01 03/25/2017 Active Dysuria ICD-9: [...] Start Date Stop Date Status Fill Instructions meclizine 25 mg tablet RxNorm: 398393 1 Tablet(s) TID as needed 07/14/2018 No Stop Date Active dizziness levocetirizine 5 mg tablet RxNorm: 682680 1 Tablet(s) PO daily 05/30/2018 08/27/2018 Active nystatin 100,000 unit/gram topical cream RxNorm: 371259 1 Gram(s) TOP TID as needed 05/30/2018 No Stop Date Active metoprolol succinate ER 50 mg tablet,extended release 24 hr RxNorm: 738780 1 Tablet(s) daily may take 1 extra tab daily if systolic bp elevated 05/03/2018 11/28/2018 Active metoprolol succinate ER 50 mg tablet,extended release 24 hr RxNorm: 374755 Tablet(s) Tablet(s) TAKE 1 TABLET BY MOUTH DAILY 05/03/2018 05/02/2018 Inactive lisinopril 20 mg tablet RxNorm: 189823 TAKE 1 TABLET BY MOUTH TWICE DAILY 04/22/2018 09/18/2018 Active Generic For:*PRINIVIL 20 MG TABLET 04/22/2018 9:57:59 AM levocetirizine 5 mg tablet RxNorm: 733957 1 Tablet(s) PO daily 04/22/2018 04/21/2018 Inactive Singulair 10 mg tablet RxNorm: 505479 1 Tablet(s) PO QHS 04/22/2018 04/21/2018 Inactive Singulair 10 mg tablet RxNorm: 617203 1 Tablet(s) PO QHS 04/22/2018 05/12/2018 Inactive levocetirizine 5 mg tablet RxNorm: 185670 1 Tablet(s) PO daily 04/22/2018 05/21/2018 Inactive ceftriaxone 500 mg solution for injection RxNorm: 6520914 Inj 04/08/2018 04/08/2018 Inactive ceftriaxone 500 mg solution for injection RxNorm: 7956750 Inj 04/07/2018 04/07/2018 Inactive ceftriaxone 500 mg solution for injection RxNorm: 6945537 Inj 04/06/2018 04/06/2018 Inactive ketorolac 60 mg/2 mL intramuscular solution RxNorm: 8178530 Milliliter(s) IM 04/05/2018 04/05/2018 Inactive ceftriaxone 500 mg solution for injection RxNorm: 3572691 Inj 04/05/2018 04/05/2018 Inactive ondansetron 4 mg disintegrating tablet RxNorm: 494683 1 Tablet(s) PO TID as needed nausea 04/04/2018 No Stop Date Active ketorolac 30 mg/mL injection solution RxNorm: 263720 2 Milliliter(s) Inj 04/04/2018 04/04/2018 Inactive ceftriaxone 500 mg solution for injection RxNorm: 6202386 Inj 04/04/2018 04/04/2018 Inactive nystatin 100,000 unit/mL oral suspension RxNorm: 868034 4 Milliliter(s) PO QID 04/01/2018 04/05/2018 Inactive doxycycline hyclate 100 mg tablet RxNorm: 0567332 1 Tablet(s) PO BID 04/01/2018 04/10/2018 Inactive amoxicillin 500 mg capsule RxNorm: 966206 1 Capsule(s) PO TID 03/24/2018 04/02/2018 Inactive prednisone 10 mg tablet RxNorm: 772303 1 Tablet(s) PO UD 6 pills on day 1 and 2 and then decrease by one pill every other day until prescription is done 03/24/2018 05/12/2018 Inactive metoprolol succinate ER 50 mg tablet,extended release 24 hr RxNorm: 407885 Tablet(s) TAKE 1 TABLET BY MOUTH DAILY 03/21/2018 05/02/2018 Inactive PLEASE SEND REFILL REQUESTS ELECTRONICALLY!! Synthroid 88 mcg tablet RxNorm: 174239 TAKE 1 TABLET BY MOUTH DAILY 03/08/2018 08/04/2018 Active 03/07/2018 11:21:21 AM pravastatin 80 mg tablet RxNorm: 391077 Tablet(s) 1 Tablet(s) PO daily 03/01/2018 02/23/2019 Active Kenalog 40 mg/mL suspension for injection RxNorm: 2178809 Milliliter(s) Inj 12/24/2017 12/24/2017 Inactive cetirizine 10 mg tablet RxNorm: 7566768 TAKE 1 TABLET BY MOUTH DAILY 12/21/2017 04/19/2018 Inactive Generic For:*ZYRTEC 10 MG TABLET 12/21/2017 10:08:05 AM Synthroid 88 mcg tablet RxNorm: 542593 TAKE 1 TABLET BY MOUTH DAILY 12/07/2017 03/06/2018 Inactive 12/06/2017 11:46:49 AM Lipitor 80 mg tablet RxNorm: 810527 1 Tablet(s) PO daily 11/29/2017 02/28/2018 Inactive pravastatin 80 mg tablet RxNorm: 379408 1 Tablet(s) PO daily 11/29/2017 11/29/2017 Inactive Lipitor 80 mg tablet RxNorm: 397853 1 Tablet(s) PO daily 11/29/2017 11/28/2017 Inactive lisinopril 20 mg tablet RxNorm: 892662 TAKE 1 TABLET BY MOUTH TWICE DAILY 11/23/2017 04/21/2018 Inactive Generic For:*PRINIVIL 20 MG TABLET 11/23/2017 11:29:44 AM Macrobid 100 mg capsule RxNorm: 352024 1 Capsule(s) PO BID 11/19/2017 11/25/2017 Inactive Macrobid 100 mg capsule RxNorm: 907855 1 Capsule(s) PO BID 11/19/2017 11/18/2017 Inactive Lomotil 2.5 mg-0.025 mg tablet RxNorm: 0930216 1 -2 Tablet(s) PO TID as needed 11/19/2017 11/25/2017 Inactive Lomotil 2.5 mg-0.025 mg tablet RxNorm: 5820254 1 -2 Tablet(s) PO TID as needed 11/19/2017 11/18/2017 Inactive Pyridium 200 mg tablet RxNorm: 7705890 1 Tablet(s) PO TID as needed 11/18/2017 11/22/2017 Inactive Augmentin 500 mg-125 mg tablet RxNorm: 920597 1 Tablet(s) PO TID 11/18/2017 11/27/2017 Inactive Keflex 500 mg capsule RxNorm: 181355 1 Capsule(s) PO TID 11/03/2017 11/09/2017 Inactive Denavir 1 % topical cream RxNorm: 000315 1 TOP TID as needed cold sores 11/01/2017 01/29/2018 Inactive Denavir 1 % topical cream RxNorm: 275062 1 TOP TID as needed cold sores 11/01/2017 10/31/2017 Inactive Synthroid 88 mcg tablet RxNorm: 304947 TAKE 1 TABLET BY MOUTH DAILY 09/29/2017 11/27/2017 Inactive 09/29/2017 12:58:07 PM pravastatin 80 mg tablet RxNorm: 886255 1 Tablet(s) PO daily 08/31/2017 08/30/2017 Inactive pravastatin 80 mg tablet RxNorm: 602084 1 Tablet(s) PO daily 08/31/2017 11/28/2017 Inactive Synthroid 88 mcg tablet RxNorm: 831173 TAKE 1 TABLET BY MOUTH DAILY 08/30/2017 09/28/2017 Inactive 08/30/2017 10:53:26 AM metoprolol succinate ER 50 mg tablet,extended release 24 hr RxNorm: 390323 Tablet(s) TAKE 1 TABLET BY MOUTH DAILY 08/17/2017 03/14/2018 Inactive PLEASE SEND REFILL REQUESTS ELECTRONICALLY!! lisinopril 20 mg tablet RxNorm: 465100 TAKE 1 TABLET BY MOUTH TWICE DAILY 06/18/2017 11/14/2017 Inactive Generic For:*PRINIVIL 20 MG TABLET 06/18/2017 1:31:00 PM Synthroid 88 mcg tablet RxNorm: 171683 TAKE 1 TABLET BY MOUTH DAILY 05/24/2017 08/21/2017 Inactive 05/24/2017 2:13:21 PM cetirizine 10 mg tablet RxNorm: 1938261 1 Tablet(s) PO daily 05/17/2017 12/12/2017 Inactive Zithromax Z-Russell 250 mg capsule RxNorm: 464790 1 Capsule(s) PO 04/02/2017 04/05/2017 Inactive Zithromax Z-Russell 250 mg tablet RxNorm: 983762 1 Tablet(s) PO 04/02/2017 04/01/2017 Inactive Zithromax Z-Russell 250 mg capsule RxNorm: 336106 1 Capsule(s) PO 04/02/2017 04/01/2017 Inactive Zithromax Z-Russell 250 mg tablet RxNorm: 686280 1 Tablet(s) PO 04/02/2017 04/06/2017 Inactive Ventolin HFA 90 mcg/actuation aerosol inhaler RxNorm: 074942 2 INH QID as needed - for the first 3 days inhale at least two puffs three times daily, then use as needed for shortness of breath 04/01/2017 04/30/2017 Inactive Keflex 500 mg capsule RxNorm: 705758 1 Capsule(s) PO TID 04/01/2017 04/01/2017 Inactive meclizine 25 mg tablet RxNorm: 895371 Tablet(s) 1 Tablet(s) PO Q6 PRN 03/25/2017 03/24/2017 Inactive dizziness Kenalog 40 mg/mL suspension for injection RxNorm: 4461071 1 Milliliter(s) Inj 03/25/2017 03/25/2017 Inactive meclizine 25 mg tablet RxNorm: 681779 1 Tablet(s) PO Q6 PRN 1 Tablet(s) PO Q6 PRN 03/25/2017 05/12/2018 Inactive dizziness meclizine 25 mg tablet RxNorm: 173845 1 Tablet(s) PO Q6 PRN 02/15/2017 03/24/2017 Inactive dizziness lisinopril 20 mg tablet RxNorm: 003313 1 Tablet(s) PO BID 01/15/2017 06/13/2017 Inactive metoprolol succinate ER 50 mg tablet,extended release 24 hr RxNorm: 301701 TAKE 1 TABLET BY MOUTH DAILY 01/07/2017 08/04/2017 Inactive Generic For:TOPROL XL 50MG TAB 01/07/2017 12:38:23 PM Synthroid 88 mcg tablet RxNorm: 265623 TAKE 1 TABLET BY MOUTH DAILY 12/25/2016 05/23/2017 Inactive 12/25/2016 9:47:08 AM Zithromax Z-Russ[place] 250 mg tablet RxNorm: 641677 Tablet(s) PO UD 12/23/2016 03/24/2017 Inactive meclizine 25 mg tablet RxNorm: 171371 1 Tablet(s) PO Q6 PRN 12/08/2016 12/20/2016 Inactive dizziness Kenalog 40 mg/mL suspension for injection RxNorm: 5749830 Milliliter(s) Inj 12/08/2016 12/08/2016 Inactive meloxicam 15 mg tablet RxNorm: 438713 1 Tablet(s) PO daily 11/30/2016 12/20/2016 Inactive cetirizine 10 mg tablet RxNorm: 3764559 1 Tablet(s) PO daily 10/23/2016 05/16/2017 Inactive pravastatin 40 mg tablet RxNorm: 814959 1 Tablet(s) PO BID 08/20/2016 08/30/2017 Inactive Cancel 80 mg tab lisinopril 20 mg tablet RxNorm: 863795 1 Tablet(s) PO BID 08/12/2016 12/22/2016 Inactive Synthroid 88 mcg tablet RxNorm: 348172 1 Tablet(s) PO TAKE ONE (1) TABLET BY MOUTH DAILY 07/28/2016 12/24/2016 Inactive decrease dose hydralazine 25 mg tablet RxNorm: 588299 1 Tablet(s) PO TID as needed for Systolic blood pressure over 170 07/06/2016 12/20/2016 Inactive lisinopril 20 mg tablet RxNorm: 031214 1 Tablet(s) PO BID to replace your other lisinopril dose 07/06/2016 08/04/2016 Inactive lisinopril 10 mg tablet RxNorm: 428952 TAKE ONE TABLET BY MOUTH TWICE DAILY 06/10/2016 08/11/2016 Inactive Generic For:ZESTRIL 10 MG TABLET 06/09/2016 12:58:50 PM triamcinolone acetonide 0.1 % topical cream RxNorm: 1295633 1 Application TOP TID as needed 06/01/2016 No Stop Date Active nystatin 100,000 unit/gram topical cream RxNorm: 432908 1 Gram(s) TOP TID as needed 06/01/2016 05/29/2018 Inactive metoprolol succinate ER 50 mg tablet,extended release 24 hr RxNorm: 104873 1 Tablet(s) PO daily 05/26/2016 12/21/2016 Inactive cetirizine 10 mg tablet RxNorm: 2031418 1 Tablet(s) PO daily 03/23/2016 10/18/2016 Inactive Synthroid 88 mcg tablet RxNorm: 000581 1 Tablet(s) PO TAKE ONE (1) TABLET BY MOUTH DAILY 03/06/2016 03/07/2018 Inactive Brand name only! Synthroid 88 mcg tablet RxNorm: 207932 1 Tablet(s) PO TAKE ONE (1) TABLET BY MOUTH DAILY 03/04/2016 03/05/2016 Inactive decrease dose cetirizine 10 mg tablet RxNorm: 9952603 1 Tablet(s) PO daily 02/27/2016 03/22/2016 Inactive amoxicillin 500 mg capsule RxNorm: 649331 1 Capsule(s) PO TID 02/27/2016 03/04/2016 Inactive lisinopril 10 mg tablet RxNorm: 121441 TAKE ONE TABLET BY MOUTH TWICE DAILY 02/06/2016 06/04/2016 Inactive Generic For:ZESTRIL 10 MG TABLET 02/06/2016 12:16:38 PM Synthroid 100 mcg tablet RxNorm: 681473 TAKE ONE (1) TABLET BY MOUTH DAILY 01/03/2016 03/03/2016 Inactive 01/03/2016 10:35:14 AM N O T I C E Last quantity doesn't match original quantity lisinopril 10 mg tablet RxNorm: 000811 1 Tablet(s) PO BID 10/04/2015 01/31/2016 Inactive Synthroid 100 mcg tablet RxNorm: 328638 1 Tablet(s) PO daily 10/04/2015 01/02/2016 Inactive metoprolol succinate ER 50 mg tablet,extended release 24 hr RxNorm: 969654 1 Tablet(s) PO daily 10/04/2015 04/30/2016 Inactive Tylenol Arthritis 650 mg tablet,extended release RxNorm: 3712339 2 Tablet(s) PO TID 09/10/2015 No Stop Date Active metoprolol succinate ER 50 mg tablet,extended release 24 hr RxNorm: 133855 1 Tablet(s) PO daily 09/05/2015 10/03/2015 Inactive pravastatin 80 mg tablet RxNorm: 783538 1 Tablet(s) PO QHS 08/30/2015 08/30/2015 Inactive pravastatin 40 mg tablet RxNorm: 039006 1 Tablet(s) PO BID 08/30/2015 08/29/2015 Inactive Cancel 80 mg tab pravastatin 40 mg tablet RxNorm: 466922 1 Tablet(s) PO BID 08/30/2015 08/19/2016 Inactive Cancel 80 mg tab lisinopril 10 mg tablet RxNorm: 122114 1 Tablet(s) PO BID 06/13/2015 08/11/2016 Inactive lisinopril 10 mg tablet RxNorm: 982199 1 Tablet(s) PO BID 06/13/2015 10/03/2015 Inactive Synthroid 100 mcg tablet RxNorm: 747696 1 Tablet(s) PO daily 06/10/2015 10/03/2015 Inactive ceftriaxone 1 gram solution for injection RxNorm: 6181547 Inj 03/01/2015 03/01/2015 Inactive ceftriaxone 1 gram solution for injection RxNorm: 7294444 Inj 02/28/2015 02/28/2015 Inactive ceftriaxone 1 gram solution for injection RxNorm: 4454522 Inj 02/27/2015 02/27/2015 Inactive ceftriaxone 1 gram solution for injection RxNorm: 6108967 Inj 02/26/2015 02/26/2015 Inactive ceftriaxone 1 gram solution for injection RxNorm: 7268601 Inj 02/25/2015 02/25/2015 Inactive phenazopyridine 200 mg tablet RxNorm: 2656866 1 Tablet(s) PO Q8 02/21/2015 02/20/2015 Inactive Cipro 500 mg tablet RxNorm: 721933 1 Tablet(s) PO BID 02/21/2015 02/20/2015 Inactive phenazopyridine 200 mg tablet RxNorm: 3259966 1 Tablet(s) PO Q8 02/21/2015 02/25/2015 Inactive Cipro 500 mg tablet RxNorm: 753713 1 Tablet(s) PO BID 02/21/2015 02/27/2015 Inactive lisinopril 10 mg tablet RxNorm: 058020 1 Tablet(s) PO BID 02/14/2015 06/12/2015 Inactive metoprolol succinate ER 50 mg tablet,extended release 24 hr RxNorm: 750522 3/4 Tablet(s) PO daily 02/11/2015 09/04/2015 Inactive Voltaren 1 % topical gel RxNorm: 919313 2 Gram(s) TOP QID use this on affected joints up to four times daily. 02/11/2015 03/12/2015 Inactive Probiotic oral RxNorm: 6205 oral No Start Date Active aspirin 81 mg tablet RxNorm: 709884 1 Tablet(s) PO daily No Start Date Active Super B-Complex tablet RxNorm: 1 Tablet(s) PO No Start Date Active Super-D3+ oral RxNorm: oral No Start Date Active Prilosec OTC 20 mg tablet,delayed release RxNorm: 491347 2 Tablet(s) PO QAM No Start Date Active Flonase Allergy Relief 50 mcg/actuation nasal spray,suspension RxNorm: 9040517 1 [place] NASAL as needed No Start Date Active Move Free Ultra 40 mg-10 mg-3.3 mg tablet RxNorm: 1 Tablet(s) PO daily No Start Date Active metoprolol tartrate 50 mg tablet RxNorm: 572830 1 Tablet(s) PO daily No Start Date 02/10/2015 Inactive lisinopril 10 mg tablet RxNorm: 180635 1 Tablet(s) PO BID No Start Date 02/13/2015 Inactive pravastatin 80 mg tablet RxNorm: 028084 1 Tablet(s) PO daily No Start Date 08/29/2015 Inactive Flonase Allergy Relief 50 mcg/actuation nasal spray,suspension RxNorm: 7295119 1 [place] NASAL BID No Start Date 05/12/2018 Inactive Synthroid 100 mcg tablet RxNorm: 568061 1 Tablet(s) PO daily No Start Date 06/09/2015 Inactive lisinopril 40 mg tablet RxNorm: 386465 1 Tablet(s) PO BID No Start Date 02/28/2018 Inactive Tylenol Arthritis 650 mg tablet,extended release RxNorm: 7259699 4 Tablet(s) PO daily No Start Date 09/09/2015 Inactive Medication Administered Medication Codes Instructions Start Date Status ceftriaxone 500 mg solution for injection RxNorm: 8854300 04/08/2018 No longer Active ceftriaxone 500 mg solution for injection RxNorm: 4068957 04/07/2018 No longer Active ceftriaxone 500 mg solution for injection RxNorm: 5646694 04/06/2018 No longer Active ceftriaxone 500 mg solution for injection RxNorm: 1034610 04/05/2018 No longer Active ketorolac 60 mg/2 mL intramuscular solution RxNorm: 1583143 Milliliter 04/05/2018 No longer Active ceftriaxone 500 mg solution for injection RxNorm: 2062249 04/04/2018 No longer Active ketorolac 30 mg/mL injection solution RxNorm: 325341 2Milliliter 04/04/2018 No longer Active Kenalog 40 mg/mL suspension for injection RxNorm: 1542781 Milliliter 12/24/2017 No longer Active Kenalog 40 mg/mL suspension for injection RxNorm: 0835947 1Milliliter 03/25/2017 No longer Active Kenalog 40 mg/mL suspension for injection RxNorm: 4290804 Milliliter 12/08/2016 No longer Active ceftriaxone 1 gram solution for injection RxNorm: 0923495 03/01/2015 No longer Active ceftriaxone 1 gram solution for injection RxNorm: 8367920 02/28/2015 No longer Active ceftriaxone 1 gram solution for injection RxNorm: 8315255 02/27/2015 No longer Active ceftriaxone 1 gram solution for injection RxNorm: 0900543 02/26/2015 No longer Active ceftriaxone 1 gram solution for injection RxNorm: 8325689 02/25/2015 No longer Active Immunizations Vaccine Codes [...] Reason For Visit Effective Dates Notes fatigue 07/13/2018 fatigue 06/08/2018 fatigue 05/30/2018 fatigue [...] Item Item Code Result Date Free T[address] FREE T4 1.07 ng/dL 04/04/2018 Tsh Ord6 TSH (3rd IS) 1.93 uIU/mL 04/04/2018 Urine Culture Ucult Preliminary NO Growth Day 1 03/28/2018 Urine Culture Ucult Complete NO Growth Day 2 03/28/2018 Urine Culture Ucult Complete >100,000 col/ml aerobic growth sent to ref lab 11/19/2017 B12 Xid447 B12 712.00 pg/ml 09/28/2017 C-Reactive Protein Qnt Crqnt CRP 0.1 mg/dl 09/23/2017 Comp Metabolic Jdo021 NA 139 mEq/L 09/23/2017 Comp Metabolic Pld078 K 4.8 mEq/L 09/23/2017 Comp Metabolic Hop525 CL 104 mEq/L 09/23/2017 Comp Metabolic Xvd836 CO2 28.0 mEq/L 09/23/2017 Comp Metabolic Pvl440 ANION GAP 12 09/23/2017 Comp Metabolic Qlu119 GLUCOSE 92 mg/dL 09/23/2017 Comp Metabolic Xgj686 Creat 0.7 mg/dL 09/23/2017 Comp Metabolic Edj359 eGFR 91 ml/min/1.73m2 09/23/2017 Comp Metabolic Cqw234 BUN 11 mg/dL 09/23/2017 Comp Metabolic Pos684 B/C Ratio 16.4 Ratio 09/23/2017 Comp Metabolic Sup552 CALCIUM 9.0 mg/dL 09/23/2017 Comp Metabolic Fjm507 ALK PHOS 76 U/L 09/23/2017 Comp Metabolic Mpe141 AST(SGOT) 24 U/L 09/23/2017 Comp Metabolic Kez059 ALT(SGPT) 21 U/L 09/23/2017 Comp Metabolic Alr290 BILI T 0.3 mg/dL 09/23/2017 Comp Metabolic Hpb859 ALBUMIN 4.1 g/dL 09/23/2017 Comp Metabolic Qxa367 TPRO 6.2 g/dL 09/23/2017 Comp Metabolic Etn497 GLOB 2.1 g/dL 09/23/2017 Comp Metabolic Uec818 A/G Ratio 1.9 Ratio 09/23/2017 Comp Metabolic Dvt023 Osmo 277 mOsmo 09/23/2017 Sed Rate Ord21 ESR 3 mm/hr 09/22/2017 Vitamin D 25 Oh Vqo8320 VITAMIN D, 25 HYDROXY 78.79 ng/mL 09/22/2017 [...] 30.6 pg 09/22/2017 Cbc With Differential Ord2 [place]% 10.5 % 09/22/2017 Cbc With Differential Ord2 [...] 2.37 K/ul 09/22/2017 Cbc With Differential Ord2 [place] ABS# 0.9 K/ul 09/22/2017 Cbc With Differential Ord2 Eos ABS# 0.2 K/ul 09/22/2017 Cbc With Differential Ord2 Baso ABS# 0.0 K/ul 09/22/2017 Free T4 Aye694 FREE T4 0.99 ng/dL 09/22/2017 %Hba1C Hiv206 % HbA1c 70803- 6 6.0 % 12/10/2016 %Hba1C Ydb744 Gluc Ave 126 mg/dL 12/10/2016 Tsh Ord6 hTSH II 0.89 uIU/mL 12/09/2016 Free T4 Mbw609 FREE T4 0.99 ng/dL 12/09/2016 Comp Metabolic Pgy337 NA 138 mEq/L 12/09/2016 Comp Metabolic Wxj165 K 5.2 mEq/L 12/09/2016 Comp Metabolic Izk782 CL 104 mEq/L 12/09/2016 Comp Metabolic Vdy053 CO2 29.0 mEq/L 12/09/2016 Comp Metabolic Qdg249 ANION GAP 10 12/09/2016 Comp Metabolic Nfo625 GLUCOSE 135 mg/dL 12/09/2016 Comp Metabolic Yom905 Creat 0.8 mg/dL 12/09/2016 Comp Metabolic Yyt710 eGFR 79 ml/min/1.73m2 12/09/2016 Comp Metabolic Vgu004 BUN 18 mg/dL 12/09/2016 Comp Metabolic Fux414 B/C Ratio 23.7 Ratio 12/09/2016 Comp Metabolic Sjv174 CALCIUM 9.5 mg/dL 12/09/2016 Comp Metabolic Oai349 ALK PHOS 73 U/L 12/09/2016 Comp Metabolic Fne660 AST(SGOT) 24 U/L 12/09/2016 Comp Metabolic Ads160 ALT(SGPT) 20 U/L 12/09/2016 Comp Metabolic Pjd020 BILI T 0.3 mg/dL 12/09/2016 Comp Metabolic Rcg212 ALBUMIN 4.3 g/dL 12/09/2016 Comp Metabolic Evg220 TPRO 6.4 g/dL 12/09/2016 Comp Metabolic Rsh296 GLOB 2.1 g/dL 12/09/2016 Comp Metabolic Jbo729 A/G Ratio 2.0 Ratio 12/09/2016 Comp Metabolic Yyt350 Osmo 280 mOsmo 12/09/2016 Cbc With Differential [...] 31.3 pg 12/09/2016 Cbc With Differential Ord2 [place]% 6.5 % 12/09/2016 Cbc With Differential Ord2 [...] 1.84 K/ul 12/09/2016 Cbc With Differential Ord2 [place] ABS# 0.6 K/ul 12/09/2016 Cbc With Differential Ord2 Eos ABS# 0.1 K/ul 12/09/2016 Cbc With Differential Ord2 Baso ABS# 0.1 K/ul 12/09/2016 Tsh Ord6 hTSH II 1.19 uIU/mL 09/02/2016 Free T4 Sfv154 FREE T4 0.97 ng/dL 09/02/2016 Comp Metabolic Wbo959 NA 137 mEq/L 06/01/2016 Comp Metabolic Voy050 K 4.1 mEq/L 06/01/2016 Comp Metabolic Vvn820 CL 104 mEq/L 06/01/2016 Comp Metabolic Goz924 CO2 25.0 mEq/L 06/01/2016 Comp Metabolic Mhq051 ANION GAP 12 06/01/2016 Comp Metabolic Foa326 GLUCOSE 108 mg/dL 06/01/2016 Comp Metabolic Pwd968 Creat 0.8 mg/dL 06/01/2016 Comp Metabolic Hjo652 eGFR 80 ml/min/1.73m2 06/01/2016 Comp Metabolic Crv005 BUN 15 mg/dL 06/01/2016 Comp Metabolic Tos799 B/C Ratio 20.0 Ratio 06/01/2016 Comp Metabolic Tmw235 CALCIUM 9.1 mg/dL 06/01/2016 Comp Metabolic Uxp319 ALK PHOS 89 U/L 06/01/2016 Comp Metabolic Tqv242 AST(SGOT) 25 U/L 06/01/2016 Comp Metabolic Yus211 ALT(SGPT) 20 U/L 06/01/2016 Comp Metabolic Gul218 BILI T 0.3 mg/dL 06/01/2016 Comp Metabolic Oxi933 ALBUMIN 4.2 g/dL 06/01/2016 Comp Metabolic Vbt209 TPRO 6.2 g/dL 06/01/2016 Comp Metabolic Ljl110 GLOB 2.0 g/dL 06/01/2016 Comp Metabolic Giw141 A/G Ratio 2.1 Ratio 06/01/2016 Comp Metabolic Qlu905 Osmo 275 mOsmo 06/01/2016 Free T4 Wwf414 FREE T4 0.94 ng/dL 06/01/2016 Tsh Ord6 [...] 31.1 pg 06/01/2016 Cbc With Differential Ord2 [place]% 8.4 % 06/01/2016 Cbc With Differential Ord2 [...] 2.96 K/ul 06/01/2016 Cbc With Differential Ord2 [place] ABS# 0.6 K/ul 06/01/2016 Cbc With Differential [...] 31.3 pg 02/27/2016 Cbc With Differential Ord2 [place]% 10.0 % 02/27/2016 Cbc With Differential Ord2 [...] 2.28 K/ul 02/27/2016 Cbc With Differential Ord2 [place] ABS# 0.9 K/ul 02/27/2016 Cbc With Differential Ord2 Eos ABS# 0.3 K/ul 02/27/2016 Cbc With Differential Ord2 Baso ABS# 0.1 K/ul 02/27/2016 Tsh Ord6 hTSH II 0.18 uIU/mL 02/27/2016 Free T4 Dqk290 FREE T4 1.17 ng/dL 02/27/2016 Comp Metabolic Woh937 NA 135 mEq/L 02/27/2016 Comp Metabolic Txv268 K 5.2 mEq/L 02/27/2016 Comp Metabolic Huq084 CL 102 mEq/L 02/27/2016 Comp Metabolic Cms599 CO2 27.0 mEq/L 02/27/2016 Comp Metabolic Axu353 ANION GAP 11 02/27/2016 Comp Metabolic Deq256 GLUCOSE 93 mg/dL 02/27/2016 Comp Metabolic Bmj738 Creat 0.7 mg/dL 02/27/2016 Comp Metabolic Pty676 eGFR 91 ml/min/1.73m2 02/27/2016 Comp Metabolic Buc757 BUN 14 mg/dL 02/27/2016 Comp Metabolic Iru798 B/C Ratio 20.9 Ratio 02/27/2016 Comp Metabolic Axc922 CALCIUM 9.4 mg/dL 02/27/2016 Comp Metabolic Ofy755 ALK PHOS 100 U/L 02/27/2016 Comp Metabolic Sws748 AST(SGOT) 23 U/L 02/27/2016 Comp Metabolic Yrg405 ALT(SGPT) 24 U/L 02/27/2016 Comp Metabolic Vsj440 BILI T 0.2 mg/dL 02/27/2016 Comp Metabolic Ifo527 ALBUMIN 4.3 g/dL 02/27/2016 Comp Metabolic Sgf627 TPRO 6.3 g/dL 02/27/2016 Comp Metabolic Sqs534 GLOB 2.1 g/dL 02/27/2016 Comp Metabolic Trw940 A/G Ratio 2.1 Ratio 02/27/2016 Comp Metabolic Xtg050 Osmo 270 mOsmo 02/27/2016 Free T4 Bej943 FREE T4 1.03 ng/dL 05/10/2015 Comp Metabolic Pxq559 NA 137 mEq/L 05/10/2015 Comp Metabolic Xhu050 K 4.4 mEq/L 05/10/2015 Comp Metabolic Awp558 CL 102 mEq/L 05/10/2015 Comp Metabolic Chg673 CO2 28.0 mEq/L 05/10/2015 Comp Metabolic Nkq216 ANION GAP 11 05/10/2015 Comp Metabolic Xmt743 GLUCOSE 108 mg/dL 05/10/2015 Comp Metabolic Xqh138 Creat 0.7 mg/dL 05/10/2015 Comp Metabolic Ogb695 eGFR 86 ml/min/1.73m2 05/10/2015 Comp Metabolic Xbr529 BUN 13 mg/dL 05/10/2015 Comp Metabolic Iiu545 B/C Ratio 18.3 Ratio 05/10/2015 Comp Metabolic Eee297 CALCIUM 9.4 mg/dL 05/10/2015 Comp Metabolic Hny019 ALK PHOS 94 U/L 05/10/2015 Comp Metabolic Xbl409 AST(SGOT) 22 U/L 05/10/2015 Comp Metabolic Osp470 ALT(SGPT) 21 U/L 05/10/2015 Comp Metabolic Feh526 BILI T 0.3 mg/dL 05/10/2015 Comp Metabolic Vnr546 ALBUMIN 3.9 g/dL 05/10/2015 Comp Metabolic Odu696 TPRO 6.1 g/dL 05/10/2015 Comp Metabolic Des913 GLOB 2.2 g/dL 05/10/2015 Comp Metabolic Nmp340 A/G Ratio 1.7 Ratio 05/10/2015 Comp Metabolic Hzd758 Osmo 274 mOsmo 05/10/2015 Tsh Ord6 hTSH [...] 29.4 pg 05/10/2015 Cbc With Differential Ord2 [place]% 9.0 % 05/10/2015 Cbc With Differential Ord2 [...] 2.14 K/ul 05/10/2015 Cbc With Differential Ord2 [place] ABS# 0.5 K/ul 05/10/2015 Cbc With Differential [...] Ord30 C/HDL 3.8 Ratio 05/10/2015 Culture Urine [id number] URINE CULTURE SEE NOTES 02/25/2015 Culture Urine [id number] Continued Results 02/25/2015 Urine Culture Ucult Complete >100,000 col/ml aerobic growth sent to ref lab 02/22/2015 Free T4 Koo842 FREE T4 1.16 ng/dL 02/11/2015 Tsh Ord6 hTSH II 0.51 uIU/mL 02/11/2015 Review of Systems System Result Effective Dates Constitutional No recent illness 07/13/2018 Constitutional No [...] affect 05/10/2018 None Full Exam - General 1995 [...] Procedure Codes Date THER/PROPH/DIAG INJ SC/IM CPT-4: 53286 04/08/2018 ROCEPHIN, PER 250 MG CPT- 4: J0696 04/08/2018 THER/PROPH/DIAG INJ SC/IM CPT-4: 21743 04/07/2018 ROCEPHIN, PER 250 MG CPT- 4: J0696 04/07/2018 THER/PROPH/DIAG INJ SC/IM CPT-4: 30707 04/06/2018 ROCEPHIN, PER 250 MG CPT- 4: J0696 04/06/2018 THER/PROPH/DIAG INJ SC/IM CPT-4: 14642 04/05/2018 ROCEPHIN, PER 250 MG CPT- 4: J0696 04/05/2018 KETOROLAC TROMETHAMINE INJ CPT-4: J1885 04/05/2018 THER/PROPH/DIAG INJ SC/IM CPT-4: 07714 04/04/2018 ROCEPHIN, PER 250 MG CPT- 4: J0696 04/04/2018 KETOROLAC TROMETHAMINE INJ CPT-4: J1885 04/04/2018 URINALYSIS NONAUTO W/O SCOPE CPT-4: 90415 03/24/2018 PPPS, SUBSEQ VISIT CPT- 4: G0439 12/24/2017 THER/PROPH/DIAG INJ SC/IM CPT-4: 22408 12/24/2017 TRIAMCINOLONE ACET INJ NOS CPT-4: J3301 12/24/2017 THER/PROPH/DIAG INJ SC/IM CPT-4: 73245 11/18/2017 ROCEPHIN, PER 250 MG CPT- 4: J0696 11/18/2017 PRESCRIP TRANSMIT VIA ERX SY CPT-4: G8553 04/01/2017 TRIAMCINOLONE ACET INJ NOS CPT-4: J3301 03/25/2017 PPPS, SUBSEQ VISIT CPT- 4: G0439 12/23/2016 THER/PROPH/DIAG INJ SC/IM CPT-4: 03772 12/08/2016 TRIAMCINOLONE ACET INJ NOS CPT-4: J3301 12/08/2016 PRESCRIP TRANSMIT VIA ERX SY CPT-4: G8553 12/08/2016 PRESCRIP TRANSMIT VIA ERX SY CPT-4: G8553 11/30/2016 URINALYSIS NONAUTO W/O SCOPE CPT-4: 90724 07/08/2016 PRESCRIP TRANSMIT VIA ERX SY CPT-4: G8553 06/01/2016 PRESCRIP TRANSMIT VIA ERX SY CPT-4: G8553 02/27/2016 THER/PROPH/DIAG INJ SC/IM CPT-4: 01421 03/01/2015 ROCEPHIN, PER 250 MG CPT- 4: J0696 03/01/2015 THER/PROPH/DIAG INJ SC/IM CPT-4: 83366 02/28/2015 ROCEPHIN, PER 250 MG CPT- 4: J0696 02/28/2015 THER/PROPH/DIAG INJ SC/IM CPT-4: 68519 02/27/2015 ROCEPHIN, PER 250 MG CPT- 4: J0696 02/27/2015 THER/PROPH/DIAG INJ SC/IM CPT-4: 36984 02/26/2015 ROCEPHIN, PER 250 MG CPT- 4: J0696 02/26/2015 THER/PROPH/DIAG INJ SC/IM CPT-4: 24855 02/25/2015 ROCEPHIN, PER 250 MG CPT- 4: J0696 02/25/2015 URINALYSIS NONAUTO W/O SCOPE CPT-4: 16354 02/21/2015 Vital Signs Date Vital 07/13/2018 Blood Pressure 1: 144/60 Code: 8480-6 BMI: 28.0 Code: 97127-8 Heart Rate 1: 66 bpm Height: 5'3" SpO2: 98% Weight: 158 lbs 06/08/2018 Blood Pressure 1: 132/76 Code: 8480-6 BMI: 28.0 Code: 29088-4 Heart Rate 1: 70 bpm Height: 5'3" SpO2: 98% Weight: 158 lbs 05/30/2018 Blood Pressure 1: 136/72 Code: 8480-6 BMI: 28.0 Code: 66040-2 Heart Rate 1: 84 bpm Height: 5'3" Weight: 158 lbs 05/10/2018 Blood Pressure 1: 130/72 Code: 8480-6 BMI: 28.2 Code: 66525-4 Heart Rate 1: 70 bpm Height: 5'3" [...] 1: 134/58 Code: 8480-6 BMI: 27.8 Code: 64477-2 Heart Rate 1: 85 bpm Height: 5'3" SpO2: 96% Weight: 157 lbs 03/24/2018 Blood Pressure 1: 128/82 Code: 8480-6 BMI: 27.8 Code: 75969-8 Heart Rate 1: 84 bpm Height: 5'3" SpO2: 97% Weight: 157 lbs 03/01/2018 Blood Pressure 1: 136/70 Code: 8480-6 BMI: 27.8 Code: 50562-4 Heart Rate 1: 70 bpm Height: 5'3" SpO2: 96% Weight: 157 lbs 12/24/2017 Height: Weight: 11/18/2017 Blood Pressure 1: 164/74 Code: 8480-6 BMI: 27.6 Code: 69682-4 Heart Rate 1: 70 bpm Height: 5'3" SpO2: 96% Weight: 156 lbs 11/03/2017 Blood Pressure 1: 118/72 Code: 8480-6 BMI: 27.6 Code: 04336-9 Heart Rate 1: 82 bpm Height: 5'3" SpO2: 96% Weight: 156 lbs 09/22/2017 Blood Pressure 1: 136/68 Code: 8480-6 BMI: 27.6 Code: 55878-2 Heart Rate 1: 70 bpm Height: 5'3" SpO2: 97% Weight: 156 lbs 04/01/2017 Blood Pressure 1: 144/82 Code: 8480-6 Heart Rate 1: 68 bpm Height: 5'3" SpO2: 97% Weight: 03/25/2017 Blood Pressure 1: 116/70 Code: 8480-6 BMI: 26.7 Code: 52082-6 Heart Rate 1: 67 bpm Height: 5'3" SpO2: 98% Weight: 151 lbs 12/23/2016 BMI: 26.7 Code: 78569-3 Height: 5'3" Weight: 151 lbs 12/22/2016 Blood Pressure 1: 142/60 Code: 8480-6 BMI: 26.7 Code: 35570-1 Heart Rate 1: 67 bpm Height: 5'3" SpO2: 98% Weight: 151 lbs 12/08/2016 Blood Pressure 1: 140/72 Code: 8480-6 Heart Rate 1: 72 bpm Height: 5'3" SpO2: 97% Weight: 11/30/2016 Blood Pressure 1: 128/80 Code: 8480-6 BMI: 26.7 Code: 30898-5 Heart Rate 1: 63 bpm Height: 5'3" SpO2: 96% Weight: 151 lbs 09/28/2016 Blood Pressure 1: 130/80 Code: 8480-6 BMI: 27.1 Code: 73470-7 Heart Rate 1: 80 bpm Height: 5'3" SpO2: 97% Weight: 153 lbs 07/06/2016 Blood Pressure 1: 162/72 Code: 8480-6 BMI: 27.6 Code: 33000-8 Heart Rate 1: 72 bpm Height: 5'3" SpO2: 98% Weight: 156 lbs 06/01/2016 Blood Pressure 1: 122/66 Code: 8480-6 BMI: 27.5 Code: 50020-0 Heart Rate 1: 73 bpm Height: 5'3" SpO2: 98% Weight: 155 lbs 8 oz 02/27/2016 Blood Pressure 1: 126/68 Code: 8480-6 BMI: 26.9 Code: 29077-9 Heart Rate 1: 70 bpm Height: 5'3" SpO2: 98% Weight: 152 lbs 09/10/2015 Blood Pressure 1: 130/70 Code: 8480-6 BMI: 26.9 Code: 84450-4 Heart Rate 1: 72 bpm Height: 5'3" SpO2: 97% Weight: 152 lbs 05/14/2015 Blood Pressure 1: 138/82 Code: 8480-6 BMI: 26.4 Code: 56990-9 Heart Rate 1: 75 bpm Height: 5'3" SpO2: 98% Weight: 149 lbs 02/11/2015 Blood Pressure 1: 128/72 Code: 8480-6 BMI: 25.5 Code: 95980-3 Heart Rate 1: 73 bpm Height: 5'3" SpO2: 94% Weight: 144 lbs Functional Status No Functional Status data History of Present Illness Symptom Name Status Result Effective Date Notes Limitation on Activities moderately limits activities 07/13/2018 [...] data Encounters Encounter Performer Location Codes Date () 56126 EST. PATIENT, LEVEL III Diagnosis: Essential (primary) hypertension[ICD10: I10] Diagnosis: Atrophy of thyroid (acquired)[ICD10: E03.4] Elen Cortez MD, [facility] CPT-4: 53677 07/13/2018 89582 EST. PATIENT, LEVEL III Diagnosis: Other fatigue[ICD10: R53.83] Diagnosis: Essential (primary) hypertension[ICD10: I10] Bridget Cortez MD, [facility] CPT-4: 41450 06/08/2018 50450 EST. PATIENT, LEVEL IV Diagnosis: Essential (primary) hypertension[ICD10: I10] Diagnosis: Other fatigue[ICD10: R53.83] Diagnosis: Other allergic rhinitis[ICD10: J30.89] Bridget Cortez MD, [facility] CPT- 4: 10800 05/30/2018 11668 EST. PATIENT, LEVEL IV Diagnosis: Essential (primary) hypertension[ICD10: I10] Diagnosis: Other fatigue[ICD10: R53.83] Bridget Cortez MD, [facility] CPT-4: 37588 05/10/2018 80647 EST. PATIENT, LEVEL IV Diagnosis: Low back pain[ICD10: M54.5] Diagnosis: Essential (primary) hypertension[ICD10: I10] Diagnosis: Other fatigue[ICD10: R53.83] Diagnosis: Other malaise[ICD10: R53.81] Bridget Cortez MD, [facility] CPT-4: 69196 04/21/2018 78399 EST. PATIENT, LEVEL III Diagnosis: Other fatigue[ICD10: R53.83] Diagnosis: Otalgia, right ear[ICD10: H92.01] Bridget Cortez MD, [facility] CPT-4: 39949 04/13/2018 ([id number]) 51394 EST. PATIENT, LEVEL III Diagnosis: Essential (primary) hypertension[ICD10: I10] Diagnosis: Dysuria[ICD10: R30.0] Diagnosis: Nausea[ICD10: R11.0] Diagnosis: Headache[ICD10: R51] Elen Cortez MD, [facility] CPT-4: 41662 04/04/2018 47768 EST. PATIENT, LEVEL III Diagnosis: Other acute sinusitis[ICD10: J01.80] Diagnosis: Dizziness and giddiness[ICD10: R42] Diagnosis: Dysuria[ICD10: R30.0] Diagnosis: Candidal stomatitis[ICD10: B37.0] Diagnosis: Essential (primary) hypertension[ICD10: I10] Diagnosis: Other fatigue[ICD10: R53.83] Diagnosis: Other malaise[ICD10: R53.81] Bridget Cortez MD, [facility] CPT-4: 16103 04/01/2018 ([id number]) 23730 EST. 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 PATIENT, LEVEL IV Diagnosis: Otalgia, right ear[ICD10: H92.01] Diagnosis: Headache[ICD10: R51] Diagnosis: Other fatigue[ICD10: R53.83] Diagnosis: Abnormal findings on diagnostic imaging of other specified body structures[ICD10: R93.89] Elen Cortez MD, [facility] CPT-4: 63012 03/01/2018 12614 EST. PATIENT, LEVEL III Diagnosis: Acute cystitis with hematuria[ICD10: N30.01] Bridget Cortez MD, [facility] CPT-4: 15402 11/18/2017 39778 EST. PATIENT, LEVEL IV Diagnosis: Other acute sinusitis[ICD10: J01.80] Diagnosis: Otalgia, right ear[ICD10: H92.01] Bridget Cortez MD, [facility] CPT-4: 71859 11/03/2017 06633 EST. PATIENT, LEVEL III Diagnosis: Other fatigue[ICD10: R53.83] Diagnosis: Other malaise[ICD10: R53.81] Diagnosis: Pain in left knee[ICD10: M25.562] Diagnosis: Pain in right knee[ICD10: M25.561] Bridget Cortez MD, [facility] CPT-4: 98396 09/22/2017 ([id number]) 19379 EST. PATIENT, LEVEL III Diagnosis: Cough[ICD10: R05] Diagnosis: Acute bronchitis due to other specified organisms[ICD10: J20.8] Elen Cortez MD, [facility] CPT-4: 79290 04/01/2017 ([id number]) 02309 EST. PATIENT, LEVEL III Diagnosis: Otalgia, right ear[ICD10: H92.01] Diagnosis: Other allergic rhinitis[ICD10: J30.89] Shiela Cortez MD, [facility] CPT-4: 93535 03/25/2017 ([id number]) 29243 EST. PATIENT, LEVEL III Diagnosis: Benign paroxysmal vertigo, bilateral[ICD10: H81.13] Shiela Cortez MD, [facility] CPT-4: 80317 12/22/2016 ([id number]) 25898 EST. PATIENT, LEVEL IV Diagnosis: Benign paroxysmal vertigo, bilateral[ICD10: H81.13] Diagnosis: Other allergic rhinitis[ICD10: J30.89] Diagnosis: Hypothyroidism, unspecified[ICD10: E03.9] Shiela Cortez MD, [facility] CPT-4: 24583 12/08/2016 ([id number]) 86281 EST. PATIENT, LEVEL IV Diagnosis: Atrophy of thyroid (acquired)[ICD10: E03.4] Diagnosis: Essential (primary) hypertension[ICD10: I10] Diagnosis: Mixed hyperlipidemia[ICD10: E78.2] Elen Cortez MD, [facility] CPT- 4: 58626 11/30/2016 53099 EST. PATIENT, LEVEL IV Diagnosis: Headache[ICD10: R51] Diagnosis: Other fatigue[ICD10: R53.83] Diagnosis: Dizziness and giddiness[ICD10: R42] Bridget Cortez MD, [facility] CPT- 4: 40118 09/28/2016 37279 EST. PATIENT, LEVEL IV Diagnosis: Essential (primary) hypertension[ICD10: I10] Diagnosis: Headache[ICD10: R51] Bridget Cortez MD, [facility] CPT-4: 05539 07/06/2016 ([id number]) 61002 EST. PATIENT, LEVEL IV Diagnosis: Essential (primary) hypertension[ICD10: I10] Diagnosis: Atrophy of thyroid (acquired)[ICD10: E03.4] Diagnosis: Mixed hyperlipidemia[ICD10: E78.2] Elen Cortez MD, [facility] CPT- 4: 35846 06/01/2016 02338 EST. PATIENT, LEVEL IV Diagnosis: Acute laryngopharyngitis[ICD10: J06.0] Diagnosis: Other allergic rhinitis[ICD10: J30.89] Diagnosis: Other specified hypothyroidism[ICD10: E03.8] Diagnosis: Other fatigue[ICD10: R53.83] Bridget Cortez MD, [facility] CPT-4: 48194 02/27/2016 ([id number]) 20349 EST. PATIENT, LEVEL III Diagnosis: Essential (primary) hypertension[ICD10: I10] Diagnosis: Mixed hyperlipidemia[ICD10: E78.2] Elen Cortez MD, [facility] CPT- 4: 67155 09/10/2015 ([id number]) 91886 EST. PATIENT, LEVEL IV Diagnosis: Essential (primary) hypertension[ICD10: I10] Diagnosis: Hypothyroidism, unspecified[ICD10: E03.9] Diagnosis: Unspecified osteoarthritis, unspecified site[ICD10: M19.90] Elen Cortez MD, [facility] CPT-4: 42909 05/14/2015 ([id number]) OFFICE VISIT, NEW - LEVEL 4 Diagnosis: Essential (primary) hypertension[ICD10: I10] Diagnosis: Hypothyroidism, unspecified[ICD10: E03.9] Diagnosis: Unspecified osteoarthritis, unspecified site[ICD10: M19.90] [facility] CPT-4: 28677 02/11/2015 Plan of Care Planned Activity Notes [...] of control. 07/13/2018 Appointment[phone] ([facility] min[facility] Complex 07/13/2018 Patient Education: Patient [...] home. 06/08/2018 Appointment: [phone] (15 min) Moderate 06/08/2018 Patient Education: Patient [...] allergy spray. 05/30/2018 Appointment: Bridget Velazco WPtel: [facility] (15 min) Moderate 05/30/2018 Patient Education: [...] or concerns. 05/10/2018 Appointment: Bridget Velazco WPtel: [facility] (15 min) Moderate 05/10/2018 Patient Education: Patient Medication Summary Completed 05/10/2018 Appointment: Elen Cortez WPtel: [facility] (15 min) Moderate 05/05/2018 Referral: Wan [...] or concerns. 04/21/2018 Appointment: Bridget Velazco WPtel: [address] [place], [place] [phone] (15 min) Moderate 04/21/2018 Patient Education: Patient Medication Summary Completed 04/21/2018 Patient Education: Back Pain Completed 04/21/2018 Appointment: Bridget Velazco WPtel: [address] [place], [place] [address] (15 min) Moderate 04/14/2018 Care Plan: [...] Dr. Saini. 04/13/2018 Appointment: Bridget Velazco WPtel: [address] [place], [place] [phone] (30 min) Complex 04/13/2018 Patient Education: Patient Medication Summary Completed 04/13/2018 Appointment: Nurse Visit 04/08/2018 Appointment: Bridget Velazco WPtel: [address] [place], [place] [phone] (15 min) Moderate 04/08/2018 Patient Education: Patient Medication Summary Completed 04/08/2018 Appointment: Injection 04/07/2018 Patient Education: Patient Medication Summary Completed 04/07/2018 Appointment: Injection 04/06/2018 Patient Education: Patient Medication Summary Completed 04/06/2018 Appointment: Injection 04/05/2018 Appointment: Elen Cortez WPtel: [address] [place], [place] [address] (15 min) Moderate 04/05/2018 Patient [...] today. 04/04/2018 Appointment: [phone] (10 min) Simple 04/04/2018 Patient Education: Patient Medication Summary Completed 04/04/2018 Patient Education: Patient Medication Summary Completed 04/04/2018 Patient Education: Patient Medication Summary Completed 04/04/2018 Care Plan: Referral Order SNOMED-CT : [id number] Pending 04/04/2018 Visit Plan: Dysuria, dizziness, fatigue, [...] show improvement. 04/01/2018 Appointment: [facility] Velazco [facility]el[phone] (15 min) Moderate 04/01/2018 Patient Education: Patient Medication Summary Completed 04/01/2018 Visit Plan: Sinusitis - Pt has acute infection - pain in face, maxillary region, Pt informed to use decongestant, RX given to patient, sinus rinses also recommended. Call if symptoms do not show improvement. Dysuria - rx for antibiotic sent to pharmacy. 03/24/2018 Appointment: [phone] (15 min) Moderate 03/24/2018 Patient Education: [...] improve. 03/01/2018 Appointment: [phone] (15 min) Moderate 03/01/2018 Patient Education: [...] spray. 12/24/2017 Appointment: Bridget Velazco WPtel: [phone] [facility] [facility] - Annual Wellness Visit 12/24/2017 Patient Education: Patient Medication Summary Completed 12/24/2017 Appointment: Bridget Velazco WPtel: [facility] (15 min) Moderate 11/30/2017 Appointment: Lab [...] not improve. 11/18/2017 Appointment: Bridget Velazco WPtel: [facility] (15 min) Moderate 11/18/2017 Patient Education: Patient Medication Summary Completed 11/18/2017 Visit Plan: Sinusitis - Pt has acute infection - pain in face, maxillary region, Pt informed to use decongestant, RX given to patient, sinus rinses also recommended. Call if symptoms do not show improvement. 11/03/2017 Appointment: Bridget Velazco WPtel: [facility] (15 min) Moderate 11/03/2017 Patient Education: [...] not improve. 09/22/2017 Appointment: Bridget Velazco WPtel: [facility] (15 min) Moderate 09/22/2017 Patient Education: Patient Medication Summary Completed 09/22/2017 Visit Plan: Bronchitis - acute case of bronchitis identified. Pt has been given antibiotics, breathing treatments as appropriate, and pt has been instructed to call if symptoms are not improved, or if symptoms acutely worsen. 04/01/2017 Appointment: Elen Cortez WPtel: [facility] [address] (15 min) Moderate 04/01/2017 Patient Education: [...] allergy spray. 03/25/2017 Appointment: Shiela Srivastava WPtel: [facility] [address] (10 min) Simple 03/25/2017 Appointment: Elen Cortez WPtel: [facility]8 [facility] (15 min) Moderate 03/25/2017 Patient [...] surrogate. 12/23/2016 Appointment: Bridget Velazco WPtel: [phone] - Annual Wellness Visit 12/23/2016 Patient Education: Patient Medication Summary Completed 12/23/2016 Visit Plan: Vertigo-discussed PT for vestibular exercises-patient wants to wait since symptoms are improving-continue anti histamine as directed- meclizine as needed 12/22/2016 Appointment: Shiela Srivastava WPtel: [facility]5 [facility] [place] [address] (30 min) Complex 12/22/2016 Patient Education: Patient [...] of control. 12/08/2016 Appointment: Shiela Srivastava WPtel: [phone] (30 min) Complex 12/08/2016 Patient [...] Appointment: Elen Cortez WPtel: [phone] [facility] (15 min) Moderate 11/30/2016 Patient Education: Patient [...] improving 06/01/2016 Appointment: [phone] (15 min) Moderate 06/01/2016 Patient Education: [...] check labs 02/27/2016 Appointment: Bridget Velazco WPtel: [facility] (30 min) Complex 02/27/2016 Patient Education: Patient Medication Summary Completed 02/27/2016 Patient Education: Patient Medication Summary Completed 09/27/2015 Care Plan[facility]5 Pending 09/27/2015 Visit Plan: Hypertension - well [...] the colonoscopy 09/10/2015 Appointment: Elen Cortez WPtel: [facility] (15 min) Moderate 09/10/2015 Patient Education: Patient [...] Sanchez. 05/14/2015 Appointment: [phone] (15 min) Moderate 05/14/2015 Patient Education: Patient Medication Summary Completed 05/14/2015 Patient Education: Hypertension Completed 05/14/2015 Care Plan: Referral Order SNOMED-CT : [id number] Ordered 05/14/2015 Patient Education: Patient Medication Summary Completed 03/01/2015 Appointment: Nurse Visit 02/28/2015 Patient Education: Patient Medication Summary Completed 02/28/2015 Patient Education: Patient Medication Summary Completed 02/27/2015 Appointment: Nurse Visit 02/26/2015 Patient Education: Patient Medication Summary Completed 02/26/2015 Appointment: Injection 02/25/2015 Patient Education: Patient Medication Summary Completed 02/25/2015 Patient Education: Patient Medication Summary Completed 02/21/2015 Care Plan: URINALYSIS NONAUTO W/O SCOPE LOINC : 24254-1 Ordered 02/21/2015 Visit Plan: Hypertension - well [...] symptoms. 02/11/2015 Appointment: [facility] Cort[facility]el[phone] [facility] 02/11/2015 Patient Education: Patient Medication Summary Completed 02/11/2015 Patient Education: Hypertension Completed 02/11/2015 Referral: Dr. Ming Kessler WPtel: Referral Appointment Requested Referral: Wan Steven Referral Appointment Requested Instructions Comment increase lisinopril to 20mg twice a day. [...] previous levels of control. . UTI - pt with positive urinalysis - culture sent if appropriate. Antibiotic electronically prescribed to pt's pharmacy of choice. Pt to call if symptoms do not improve. take an extra metoprolol if your blood [...] do not show improvement. . Hypertension - The patient has been [...] is worsening or does not improve. . Episodes of headache, dizziness, and light [...] DOPA paperwork for health care surrogate. . UTI - symptoms resolved - repeat UA negative - pt is to notify clinic if symptoms return or with any questions or concerns Fatigue - pt is to notify clinic if symptoms are not improving, pt is to increase fluid intake Ear pain - ongoing - will refer to Dr. Saini. . Hypertension - well controlled - continue [...] Use tylenol for break through pain symptoms. appointment with Dr. Saini on 05/11 at [...]
--- OUTSIDE RECORDS SUMMARY | 2018-11-10 18:38 | XMS REPORT | CCD ---
Author Author [facility] Organization [facility] Address [address] [place] [address] Phone Care Team Providers Care Paper Pattern Inspector Name Role Phone PP Unavailable CCM Unavailable Summary Purpose Interface Exchange Insurance Providers Payer name Policy type / Coverage type Covered republican ID Effective Begin Date Effective End Date WPS Medicare Part B Medicare Part B [id number] Unknown [place] [employer] Insurance Medicare Part B [id number] Unknown Family history Mother Diagnosis Age At [...] spouses - 02/11/[address]: 805287791 Never smoker 02/11/2015 Alcohol history Unknown occasionally drinks alcohol 02/11/2015 Allergies, Adverse Reactions, Alerts Substance Reaction Codes Entered Date Inactivated Date Status CODEINE RxNorm: 2670 02/11/2015 No Inactive Date Active allergy Unknown 12/23/2016 No Inactive Date Active ciprofloxacin rash, RxNorm: 15675 02/26/2015 No Inactive Date Active hydrocodone Unknown [...] Fill Instructions levocetirizine 5 mg tablet RxNorm: 462411 1 Tablet(s) PO daily 05/30/2018 08/27/2018 Active nystatin 100,000 unit/gram topical cream RxNorm: 390691 1 Gram(s) TOP TID as needed 05/30/2018 No Stop Date Active metoprolol succinate ER 50 mg tablet,extended release 24 hr RxNorm: 585670 1 Tablet(s) daily may take 1 extra tab daily if systolic bp elevated 05/03/2018 11/28/2018 Active metoprolol succinate ER 50 mg tablet,extended release 24 hr RxNorm: 708135 Tablet(s) Tablet(s) TAKE 1 TABLET BY MOUTH DAILY 05/03/2018 05/02/2018 Inactive lisinopril 20 mg tablet RxNorm: 543804 TAKE 1 TABLET BY MOUTH TWICE DAILY 04/22/2018 09/18/2018 Active Generic For:*PRINIVIL 20 MG TABLET 04/22/2018 9:57:59 AM levocetirizine 5 mg tablet RxNorm: 710211 1 Tablet(s) PO daily 04/22/2018 04/21/2018 Inactive Singulair 10 mg tablet RxNorm: 136380 1 Tablet(s) PO QHS 04/22/2018 04/21/2018 Inactive Singulair 10 mg tablet RxNorm: 166856 1 Tablet(s) PO QHS 04/22/2018 05/12/2018 Inactive levocetirizine 5 mg tablet RxNorm: 280614 1 Tablet(s) PO daily 04/22/2018 05/21/2018 Inactive ceftriaxone 500 mg solution for injection RxNorm: 3606681 Inj 04/08/2018 04/08/2018 Inactive ceftriaxone 500 mg solution for injection RxNorm: 6792674 Inj 04/07/2018 04/07/2018 Inactive ceftriaxone 500 mg solution for injection RxNorm: 0747146 Inj 04/06/2018 04/06/2018 Inactive ketorolac 60 mg/2 mL intramuscular solution RxNorm: 9365942 Milliliter(s) IM 04/05/2018 04/05/2018 Inactive ceftriaxone 500 mg solution for injection RxNorm: 0417210 Inj 04/05/2018 04/05/2018 Inactive ondansetron 4 mg disintegrating tablet RxNorm: 979269 1 Tablet(s) PO TID as needed nausea 04/04/2018 No Stop Date Active ketorolac 30 mg/mL injection solution RxNorm: 515879 2 Milliliter(s) Inj 04/04/2018 04/04/2018 Inactive ceftriaxone 500 mg solution for injection RxNorm: 8313196 Inj 04/04/2018 04/04/2018 Inactive nystatin 100,000 unit/mL oral suspension RxNorm: 287007 4 Milliliter(s) PO QID 04/01/2018 04/05/2018 Inactive doxycycline hyclate 100 mg tablet RxNorm: 2776277 1 Tablet(s) PO BID 04/01/2018 04/10/2018 Inactive amoxicillin 500 mg capsule RxNorm: 612835 1 Capsule(s) PO TID 03/24/2018 04/02/2018 Inactive prednisone 10 mg tablet RxNorm: 090056 1 Tablet(s) PO UD 6 pills on day 1 and 2 and then decrease by one pill every other day until prescription is done 03/24/2018 05/12/2018 Inactive metoprolol succinate ER 50 mg tablet,extended release 24 hr RxNorm: 100728 Tablet(s) TAKE 1 TABLET BY MOUTH DAILY 03/21/2018 05/02/2018 Inactive PLEASE SEND REFILL REQUESTS ELECTRONICALLY!! Synthroid 88 mcg tablet RxNorm: 704439 TAKE 1 TABLET BY MOUTH DAILY 03/08/2018 08/04/2018 Active 03/07/2018 11:21:21 AM pravastatin 80 mg tablet RxNorm: 806533 Tablet(s) 1 Tablet(s) PO daily 03/01/2018 02/23/2019 Active Kenalog 40 mg/mL suspension for injection RxNorm: 2328513 Milliliter(s) Inj 12/24/2017 12/24/2017 Inactive cetirizine 10 mg tablet RxNorm: 4892854 TAKE 1 TABLET BY MOUTH DAILY 12/21/2017 04/19/2018 Inactive Generic For:*ZYRTEC 10 MG TABLET 12/21/2017 10:08:05 AM Synthroid 88 mcg tablet RxNorm: 586756 TAKE 1 TABLET BY MOUTH DAILY 12/07/2017 03/06/2018 Inactive 12/06/2017 11:46:49 AM Lipitor 80 mg tablet RxNorm: 683426 1 Tablet(s) PO daily 11/29/2017 02/28/2018 Inactive pravastatin 80 mg tablet RxNorm: 326588 1 Tablet(s) PO daily 11/29/2017 11/29/2017 Inactive Lipitor 80 mg tablet RxNorm: 996753 1 Tablet(s) PO daily 11/29/2017 11/28/2017 Inactive lisinopril 20 mg tablet RxNorm: 648291 TAKE 1 TABLET BY MOUTH TWICE DAILY 11/23/2017 04/21/2018 Inactive Generic For:*PRINIVIL 20 MG TABLET 11/23/2017 11:29:44 AM Macrobid 100 mg capsule RxNorm: 004708 1 Capsule(s) PO BID 11/19/2017 11/25/2017 Inactive Macrobid 100 mg capsule RxNorm: 871108 1 Capsule(s) PO BID 11/19/2017 11/18/2017 Inactive Lomotil 2.5 mg-0.025 mg tablet RxNorm: 7434592 1 -2 Tablet(s) PO TID as needed 11/19/2017 11/25/2017 Inactive Lomotil 2.5 mg-0.025 mg tablet RxNorm: 8392130 1 -2 Tablet(s) PO TID as needed 11/19/2017 11/18/2017 Inactive Pyridium 200 mg tablet RxNorm: 9518369 1 Tablet(s) PO TID as needed 11/18/2017 11/22/2017 Inactive Augmentin 500 mg-125 mg tablet RxNorm: 964822 1 Tablet(s) PO TID 11/18/2017 11/27/2017 Inactive Keflex 500 mg capsule RxNorm: 190751 1 Capsule(s) PO TID 11/03/2017 11/09/2017 Inactive Denavir 1 % topical cream RxNorm: 899647 1 TOP TID as needed cold sores 11/01/2017 01/29/2018 Inactive Denavir 1 % topical cream RxNorm: 888026 1 TOP TID as needed cold sores 11/01/2017 10/31/2017 Inactive Synthroid 88 mcg tablet RxNorm: 537898 TAKE 1 TABLET BY MOUTH DAILY 09/29/2017 11/27/2017 Inactive 09/29/2017 12:58:07 PM pravastatin 80 mg tablet RxNorm: 356284 1 Tablet(s) PO daily 08/31/2017 08/30/2017 Inactive pravastatin 80 mg tablet RxNorm: 226094 1 Tablet(s) PO daily 08/31/2017 11/28/2017 Inactive Synthroid 88 mcg tablet RxNorm: 255510 TAKE 1 TABLET BY MOUTH DAILY 08/30/2017 09/28/2017 Inactive 08/30/2017 10:53:26 AM metoprolol succinate ER 50 mg tablet,extended release 24 hr RxNorm: 231757 Tablet(s) TAKE 1 TABLET BY MOUTH DAILY 08/17/2017 03/14/2018 Inactive PLEASE SEND REFILL REQUESTS ELECTRONICALLY!! lisinopril 20 mg tablet RxNorm: 421901 TAKE 1 TABLET BY MOUTH TWICE DAILY 06/18/2017 11/14/2017 Inactive Generic For:*PRINIVIL 20 MG TABLET 06/18/2017 1:31:00 PM Synthroid 88 mcg tablet RxNorm: 074569 TAKE 1 TABLET BY MOUTH DAILY 05/24/2017 08/21/2017 Inactive 05/24/2017 2:13:21 PM cetirizine 10 mg tablet RxNorm: 0750570 1 Tablet(s) PO daily 05/17/2017 12/12/2017 Inactive Zithromax Z-Russell 250 mg capsule RxNorm: 371800 1 Capsule(s) PO 04/02/2017 04/05/2017 Inactive Zithromax Z-Russell 250 mg tablet RxNorm: 525499 1 Tablet(s) PO 04/02/2017 04/01/2017 Inactive Zithromax Z-Russell 250 mg capsule RxNorm: 393410 1 Capsule(s) PO 04/02/2017 04/01/2017 Inactive Zithromax Z-Russell 250 mg tablet RxNorm: 207659 1 Tablet(s) PO 04/02/2017 04/06/2017 Inactive Ventolin HFA 90 mcg/actuation aerosol inhaler RxNorm: 485312 2 INH QID as needed - for the first 3 days inhale at least two puffs three times daily, then use as needed for shortness of breath 04/01/2017 04/30/2017 Inactive Keflex 500 mg capsule RxNorm: 275728 1 Capsule(s) PO TID 04/01/2017 04/01/2017 Inactive meclizine 25 mg tablet RxNorm: 802993 Tablet(s) 1 Tablet(s) PO Q6 PRN 03/25/2017 03/24/2017 Inactive dizziness Kenalog 40 mg/mL suspension for injection RxNorm: 5867743 1 Milliliter(s) Inj 03/25/2017 03/25/2017 Inactive meclizine 25 mg tablet RxNorm: 594651 1 Tablet(s) PO Q6 PRN 1 Tablet(s) PO Q6 PRN 03/25/2017 05/12/2018 Inactive dizziness meclizine 25 mg tablet RxNorm: 255851 1 Tablet(s) PO Q6 PRN 02/15/2017 03/24/2017 Inactive dizziness lisinopril 20 mg tablet RxNorm: 205304 1 Tablet(s) PO BID 01/15/2017 06/13/2017 Inactive metoprolol succinate ER 50 mg tablet,extended release 24 hr RxNorm: 594225 TAKE 1 TABLET BY MOUTH DAILY 01/07/2017 08/04/2017 Inactive Generic For:TOPROL XL 50MG TAB 01/07/2017 12:38:23 PM Synthroid 88 mcg tablet RxNorm: 611951 TAKE 1 TABLET BY MOUTH DAILY 12/25/2016 05/23/2017 Inactive 12/25/2016 9:47:08 AM Zithromax Z-Russell 250 mg tablet RxNorm: 742323 Tablet(s) PO UD 12/23/2016 03/24/2017 Inactive meclizine 25 mg tablet RxNorm: 102090 1 Tablet(s) PO Q6 PRN 12/08/2016 12/20/2016 Inactive dizziness Kenalog 40 mg/mL suspension for injection RxNorm: 2476027 Milliliter(s) Inj 12/08/2016 12/08/2016 Inactive meloxicam 15 mg tablet RxNorm: 265289 1 Tablet(s) PO daily 11/30/2016 12/20/2016 Inactive cetirizine 10 mg tablet RxNorm: 3513012 1 Tablet(s) PO daily 10/23/2016 05/16/2017 Inactive pravastatin 40 mg tablet RxNorm: 749614 1 Tablet(s) PO BID 08/20/2016 08/30/2017 Inactive Cancel 80 mg tab lisinopril 20 mg tablet RxNorm: 610234 1 Tablet(s) PO BID 08/12/2016 12/22/2016 Inactive Synthroid 88 mcg tablet RxNorm: 848088 1 Tablet(s) PO TAKE ONE (1) TABLET BY MOUTH DAILY 07/28/2016 12/24/2016 Inactive decrease dose hydralazine 25 mg tablet RxNorm: 600281 1 Tablet(s) PO TID as needed for Systolic blood pressure over 170 07/06/2016 12/20/2016 Inactive lisinopril 20 mg tablet RxNorm: 521002 1 Tablet(s) PO BID to replace your other lisinopril dose 07/06/2016 08/04/2016 Inactive lisinopril 10 mg tablet RxNorm: 554594 TAKE ONE TABLET BY MOUTH TWICE DAILY 06/10/2016 08/11/2016 Inactive Generic For:ZESTRIL 10 MG TABLET 06/09/2016 12:58:50 PM triamcinolone acetonide 0.1 % topical cream RxNorm: 5612351 1 Application TOP TID as needed 06/01/2016 No Stop Date Active nystatin 100,000 unit/gram topical cream RxNorm: 166703 1 Gram(s) TOP TID as needed 06/01/2016 05/29/2018 Inactive metoprolol succinate ER 50 mg tablet,extended release 24 hr RxNorm: 804517 1 Tablet(s) PO daily 05/26/2016 12/21/2016 Inactive cetirizine 10 mg tablet RxNorm: 5704519 1 Tablet(s) PO daily 03/23/2016 10/18/2016 Inactive Synthroid 88 mcg tablet RxNorm: 926461 1 Tablet(s) PO TAKE ONE (1) TABLET BY MOUTH DAILY 03/06/2016 03/07/2018 Inactive Brand name only! Synthroid 88 mcg tablet RxNorm: 511967 1 Tablet(s) PO TAKE ONE (1) TABLET BY MOUTH DAILY 03/04/2016 03/05/2016 Inactive decrease dose cetirizine 10 mg tablet RxNorm: 2127805 1 Tablet(s) PO daily 02/27/2016 03/22/2016 Inactive amoxicillin 500 mg capsule RxNorm: 638651 1 Capsule(s) PO TID 02/27/2016 03/04/2016 Inactive lisinopril 10 mg tablet RxNorm: 883298 TAKE ONE TABLET BY MOUTH TWICE DAILY 02/06/2016 06/04/2016 Inactive Generic For:ZESTRIL 10 MG TABLET 02/06/2016 12:16:38 PM Synthroid 100 mcg tablet RxNorm: 973779 TAKE ONE (1) TABLET BY MOUTH DAILY 01/03/2016 03/03/2016 Inactive 01/03/2016 10:35:14 AM N O T I C E Last quantity doesn't match original quantity lisinopril 10 mg tablet RxNorm: 130895 1 Tablet(s) PO BID 10/04/2015 01/31/2016 Inactive Synthroid 100 mcg tablet RxNorm: 662784 1 Tablet(s) PO daily 10/04/2015 01/02/2016 Inactive metoprolol succinate ER 50 mg tablet,extended release 24 hr RxNorm: 115929 1 Tablet(s) PO daily 10/04/2015 04/30/2016 Inactive Tylenol Arthritis 650 mg tablet,extended release RxNorm: 6095932 2 Tablet(s) PO TID 09/10/2015 No Stop Date Active metoprolol succinate ER 50 mg tablet,extended release 24 hr RxNorm: 112602 1 Tablet(s) PO daily 09/05/2015 10/03/2015 Inactive pravastatin 80 mg tablet RxNorm: 121003 1 Tablet(s) PO QHS 08/30/2015 08/30/2015 Inactive pravastatin 40 mg tablet RxNorm: 331379 1 Tablet(s) PO BID 08/30/2015 08/29/2015 Inactive Cancel 80 mg tab pravastatin 40 mg tablet RxNorm: 008965 1 Tablet(s) PO BID 08/30/2015 08/19/2016 Inactive Cancel 80 mg tab lisinopril 10 mg tablet RxNorm: 631667 1 Tablet(s) PO BID 06/13/2015 08/11/2016 Inactive lisinopril 10 mg tablet RxNorm: 566699 1 Tablet(s) PO BID 06/13/2015 10/03/2015 Inactive Synthroid 100 mcg tablet RxNorm: 545676 1 Tablet(s) PO daily 06/10/2015 10/03/2015 Inactive ceftriaxone 1 gram solution for injection RxNorm: 5892433 Inj 03/01/2015 03/01/2015 Inactive ceftriaxone 1 gram solution for injection RxNorm: 0025833 Inj 02/28/2015 02/28/2015 Inactive ceftriaxone 1 gram solution for injection RxNorm: 6514625 Inj 02/27/2015 02/27/2015 Inactive ceftriaxone 1 gram solution for injection RxNorm: 3380163 Inj 02/26/2015 02/26/2015 Inactive ceftriaxone 1 gram solution for injection RxNorm: 5327551 Inj 02/25/2015 02/25/2015 Inactive phenazopyridine 200 mg tablet RxNorm: 7269206 1 Tablet(s) PO Q8 02/21/2015 02/20/2015 Inactive Cipro 500 mg tablet RxNorm: 000875 1 Tablet(s) PO BID 02/21/2015 02/20/2015 Inactive phenazopyridine 200 mg tablet RxNorm: 2505471 1 Tablet(s) PO Q8 02/21/2015 02/25/2015 Inactive Cipro 500 mg tablet RxNorm: 201253 1 Tablet(s) PO BID 02/21/2015 02/27/2015 Inactive lisinopril 10 mg tablet RxNorm: 177808 1 Tablet(s) PO BID 02/14/2015 06/12/2015 Inactive metoprolol succinate ER 50 mg tablet,extended release 24 hr RxNorm: 607241 3/4 Tablet(s) PO daily 02/11/2015 09/04/2015 Inactive Voltaren 1 % topical gel RxNorm: 708305 2 Gram(s) TOP QID use this on affected joints up to four times daily. 02/11/2015 03/12/2015 Inactive Probiotic oral RxNorm: 6205 oral No Start Date Active aspirin 81 mg tablet RxNorm: 661283 1 Tablet(s) PO daily No Start Date Active Super B-Complex tablet RxNorm: 1 Tablet(s) PO No Start Date Active Super-D3+ oral RxNorm: oral No Start Date Active Prilosec OTC 20 mg tablet,delayed release RxNorm: 127874 2 Tablet(s) PO QAM No Start Date Active Flonase Allergy Relief 50 mcg/actuation nasal spray,suspension RxNorm: 3871062 1 [place] NASAL as needed No Start Date Active Move Free Ultra 40 mg-10 mg-3.3 mg tablet RxNorm: 1 Tablet(s) PO daily No Start Date Active metoprolol tartrate 50 mg tablet RxNorm: 712354 1 Tablet(s) PO daily No Start Date 02/10/2015 Inactive lisinopril 10 mg tablet RxNorm: 401454 1 Tablet(s) PO BID No Start Date 02/13/2015 Inactive pravastatin 80 mg tablet RxNorm: 794666 1 Tablet(s) PO daily No Start Date 08/29/2015 Inactive Flonase Allergy Relief 50 mcg/actuation nasal spray,suspension RxNorm: 9049304 1 [place] NASAL BID No Start Date 05/12/2018 Inactive Synthroid 100 mcg tablet RxNorm: 746255 1 Tablet(s) PO daily No Start Date 06/09/2015 Inactive lisinopril 40 mg tablet RxNorm: 083519 1 Tablet(s) PO BID No Start Date 02/28/2018 Inactive Tylenol Arthritis 650 mg tablet,extended release RxNorm: 2237157 4 Tablet(s) PO daily No Start Date 09/09/2015 Inactive Medication Administered Medication Codes Instructions Start Date Status ceftriaxone 500 mg solution for injection RxNorm: 7008771 04/08/2018 No longer Active ceftriaxone 500 mg solution for injection RxNorm: 2314624 04/07/2018 No longer Active ceftriaxone 500 mg solution for injection RxNorm: 1456544 04/06/2018 No longer Active ceftriaxone 500 mg solution for injection RxNorm: 5981525 04/05/2018 No longer Active ketorolac 60 mg/2 mL intramuscular solution RxNorm: 2105642 Milliliter 04/05/2018 No longer Active ceftriaxone 500 mg solution for injection RxNorm: 6208459 04/04/2018 No longer Active ketorolac 30 mg/mL injection solution RxNorm: 854445 2Milliliter 04/04/2018 No longer Active Kenalog 40 mg/mL suspension for injection RxNorm: 7070919 Milliliter 12/24/2017 No longer Active Kenalog 40 mg/mL suspension for injection RxNorm: 5209610 1Milliliter 03/25/2017 No longer Active Kenalog 40 mg/mL suspension for injection RxNorm: 6490429 Milliliter 12/08/2016 No longer Active ceftriaxone 1 gram solution for injection RxNorm: 9455959 03/01/2015 No longer Active ceftriaxone 1 gram solution for injection RxNorm: 8472617 02/28/2015 No longer Active ceftriaxone 1 gram solution for injection RxNorm: 7481510 02/27/2015 No longer Active ceftriaxone 1 gram solution for injection RxNorm: 0851374 02/26/2015 No longer Active ceftriaxone 1 gram solution for injection RxNorm: 2283675 02/25/2015 No longer Active Immunizations Vaccine Codes [...] Item Item Code Result Date Free T4 Tvm058 FREE T4 1.07 ng/dL 04/04/2018 Tsh Ord6 TSH (3rd IS) 1.93 uIU/mL 04/04/2018 Urine Culture Ucult Preliminary NO Growth Day 1 03/28/2018 Urine Culture Ucult Complete NO Growth Day 2 03/28/2018 Urine Culture Ucult Complete >100,000 col/ml aerobic growth sent to ref lab 11/19/2017 B12 Ify253 B12 712.00 pg/ml 09/28/2017 C-Reactive Protein Qnt Crqnt CRP 0.1 mg/dl 09/23/2017 Comp Metabolic Krh453 NA 139 mEq/L 09/23/2017 Comp Metabolic Qkn193 K 4.8 mEq/L 09/23/2017 Comp Metabolic Ryk710 CL 104 mEq/L 09/23/2017 Comp Metabolic Tux528 CO2 28.0 mEq/L 09/23/2017 Comp Metabolic Cbl837 ANION GAP 12 09/23/2017 Comp Metabolic Wlf526 GLUCOSE 92 mg/dL 09/23/2017 Comp Metabolic Lls735 Creat 0.7 mg/dL 09/23/2017 Comp Metabolic Lps631 eGFR 91 ml/min/1.73m2 09/23/2017 Comp Metabolic Lbq141 BUN 11 mg/dL 09/23/2017 Comp Metabolic Twx775 B/C Ratio 16.4 Ratio 09/23/2017 Comp Metabolic Dte781 CALCIUM 9.0 mg/dL 09/23/2017 Comp Metabolic Aek187 ALK PHOS 76 U/L 09/23/2017 Comp Metabolic Fcs334 AST(SGOT) 24 U/L 09/23/2017 Comp Metabolic Dtt234 ALT(SGPT) 21 U/L 09/23/2017 Comp Metabolic Cwn699 BILI T 0.3 mg/dL 09/23/2017 Comp Metabolic Aro726 ALBUMIN 4.1 g/dL 09/23/2017 Comp Metabolic Qzk830 TPRO 6.2 g/dL 09/23/2017 Comp Metabolic Sgm949 GLOB 2.1 g/dL 09/23/2017 Comp Metabolic Hga452 A/G Ratio 1.9 Ratio 09/23/2017 Comp Metabolic Aiw314 Osmo 277 mOsmo 09/23/2017 Sed Rate Ord21 ESR 3 mm/hr 09/22/2017 Vitamin D 25 Oh Zil1297 VITAMIN D, 25 HYDROXY 78.79 ng/mL 09/22/2017 [...] 30.6 pg 09/22/2017 Cbc With Differential Ord2 [place]% 10.5 % 09/22/2017 Cbc With Differential Ord2 [...] 2.37 K/ul 09/22/2017 Cbc With Differential Ord2 [place] ABS# 0.9 K/ul 09/22/2017 Cbc With Differential Ord2 Eos ABS# 0.2 K/ul 09/22/2017 Cbc With Differential Ord2 Baso ABS# 0.0 K/ul 09/22/2017 Free T4 Lhq067 FREE T4 0.99 ng/dL 09/22/2017 %Hba1C Mux010 % HbA1c 14831- 6 6.0 % 12/10/2016 %Hba1C Ekr819 Gluc Ave 126 mg/dL 12/10/2016 Tsh Ord6 hTSH II 0.89 uIU/mL 12/09/2016 Free T4 Vnc301 FREE T4 0.99 ng/dL 12/09/2016 Comp Metabolic Jwe272 NA 138 mEq/L 12/09/2016 Comp Metabolic Yan317 K 5.2 mEq/L 12/09/2016 Comp Metabolic Hkm079 CL 104 mEq/L 12/09/2016 Comp Metabolic Ekn476 CO2 29.0 mEq/L 12/09/2016 Comp Metabolic Akn145 ANION GAP 10 12/09/2016 Comp Metabolic Snt965 GLUCOSE 135 mg/dL 12/09/2016 Comp Metabolic Nlv945 Creat 0.8 mg/dL 12/09/2016 Comp Metabolic Suf895 eGFR 79 ml/min/1.73m2 12/09/2016 Comp Metabolic Zgv248 BUN 18 mg/dL 12/09/2016 Comp Metabolic Nwr750 B/C Ratio 23.7 Ratio 12/09/2016 Comp Metabolic Nbe182 CALCIUM 9.5 mg/dL 12/09/2016 Comp Metabolic Hbc528 ALK PHOS 73 U/L 12/09/2016 Comp Metabolic Vwz643 AST(SGOT) 24 U/L 12/09/2016 Comp Metabolic But550 ALT(SGPT) 20 U/L 12/09/2016 Comp Metabolic Cvu910 BILI T 0.3 mg/dL 12/09/2016 Comp Metabolic Lwi753 ALBUMIN 4.3 g/dL 12/09/2016 Comp Metabolic Yvq365 TPRO 6.4 g/dL 12/09/2016 Comp Metabolic Ghk601 GLOB 2.1 g/dL 12/09/2016 Comp Metabolic Vng777 A/G Ratio 2.0 Ratio 12/09/2016 Comp Metabolic Cpi014 Osmo 280 mOsmo 12/09/2016 Cbc With Differential [...] 31.3 pg 12/09/2016 Cbc With Differential Ord2 [place]% 6.5 % 12/09/2016 Cbc With Differential Ord2 [...] 1.84 K/ul 12/09/2016 Cbc With Differential Ord2 [place] ABS# 0.6 K/ul 12/09/2016 Cbc With Differential Ord2 Eos ABS# 0.1 K/ul 12/09/2016 Cbc With Differential Ord2 Baso ABS# 0.1 K/ul 12/09/2016 Tsh Ord6 hTSH II 1.19 uIU/mL 09/02/2016 Free T4 Ucm435 FREE T4 0.97 ng/dL 09/02/2016 Comp Metabolic Qjr036 NA 137 mEq/L 06/01/2016 Comp Metabolic Vrp293 K 4.1 mEq/L 06/01/2016 Comp Metabolic Fdw158 CL 104 mEq/L 06/01/2016 Comp Metabolic Dqk703 CO2 25.0 mEq/L 06/01/2016 Comp Metabolic Mln363 ANION GAP 12 06/01/2016 Comp Metabolic Sqk195 GLUCOSE 108 mg/dL 06/01/2016 Comp Metabolic Dpu465 Creat 0.8 mg/dL 06/01/2016 Comp Metabolic Liq785 eGFR 80 ml/min/1.73m2 06/01/2016 Comp Metabolic Bpv128 BUN 15 mg/dL 06/01/2016 Comp Metabolic Ofu115 B/C Ratio 20.0 Ratio 06/01/2016 Comp Metabolic Oux865 CALCIUM 9.1 mg/dL 06/01/2016 Comp Metabolic Oow338 ALK PHOS 89 U/L 06/01/2016 Comp Metabolic Kho108 AST(SGOT) 25 U/L 06/01/2016 Comp Metabolic Eot806 ALT(SGPT) 20 U/L 06/01/2016 Comp Metabolic Fgg125 BILI T 0.3 mg/dL 06/01/2016 Comp Metabolic Nix215 ALBUMIN 4.2 g/dL 06/01/2016 Comp Metabolic Efh192 TPRO 6.2 g/dL 06/01/2016 Comp Metabolic Dkn440 GLOB 2.0 g/dL 06/01/2016 Comp Metabolic Tiw318 A/G Ratio 2.1 Ratio 06/01/2016 Comp Metabolic Zui813 Osmo 275 mOsmo 06/01/2016 Free T4 Vjq776 FREE T4 0.94 ng/dL 06/01/2016 Tsh Ord6 [...] 31.1 pg 06/01/2016 Cbc With Differential Ord2 [place]% 8.4 % 06/01/2016 Cbc With Differential Ord2 [...] 2.96 K/ul 06/01/2016 Cbc With Differential Ord2 [place] ABS# 0.6 K/ul 06/01/2016 Cbc With Differential [...] 31.3 pg 02/27/2016 Cbc With Differential Ord2 [place]% 10.0 % 02/27/2016 Cbc With Differential Ord2 [...] 2.28 K/ul 02/27/2016 Cbc With Differential Ord2 [place] ABS# 0.9 K/ul 02/27/2016 Cbc With Differential Ord2 Eos ABS# 0.3 K/ul 02/27/2016 Cbc With Differential Ord2 Baso ABS# 0.1 K/ul 02/27/2016 Tsh Ord6 hTSH II 0.18 uIU/mL 02/27/2016 Free T4 Pxd692 FREE T4 1.17 ng/dL 02/27/2016 Comp Metabolic Tdy019 NA 135 mEq/L 02/27/2016 Comp Metabolic Vqa705 K 5.2 mEq/L 02/27/2016 Comp Metabolic Qxl415 CL 102 mEq/L 02/27/2016 Comp Metabolic Qeb443 CO2 27.0 mEq/L 02/27/2016 Comp Metabolic Fre948 ANION GAP 11 02/27/2016 Comp Metabolic Jde187 GLUCOSE 93 mg/dL 02/27/2016 Comp Metabolic Ysb923 Creat 0.7 mg/dL 02/27/2016 Comp Metabolic Cel466 eGFR 91 ml/min/1.73m2 02/27/2016 Comp Metabolic Fqi787 BUN 14 mg/dL 02/27/2016 Comp Metabolic Lek622 B/C Ratio 20.9 Ratio 02/27/2016 Comp Metabolic Hmd246 CALCIUM 9.4 mg/dL 02/27/2016 Comp Metabolic Nkq208 ALK PHOS 100 U/L 02/27/2016 Comp Metabolic Rtp158 AST(SGOT) 23 U/L 02/27/2016 Comp Metabolic Ryq849 ALT(SGPT) 24 U/L 02/27/2016 Comp Metabolic Rgk751 BILI T 0.2 mg/dL 02/27/2016 Comp Metabolic Wus926 ALBUMIN 4.3 g/dL 02/27/2016 Comp Metabolic Esl720 TPRO 6.3 g/dL 02/27/2016 Comp Metabolic Mtn740 GLOB 2.1 g/dL 02/27/2016 Comp Metabolic Zri715 A/G Ratio 2.1 Ratio 02/27/2016 Comp Metabolic Wpe983 Osmo 270 mOsmo 02/27/2016 Free T4 Heb064 FREE T4 1.03 ng/dL 05/10/2015 Comp Metabolic Jxk602 NA 137 mEq/L 05/10/2015 Comp Metabolic Jjz370 K 4.4 mEq/L 05/10/2015 Comp Metabolic Wer292 CL 102 mEq/L 05/10/2015 Comp Metabolic Aiq576 CO2 28.0 mEq/L 05/10/2015 Comp Metabolic Oau426 ANION GAP 11 05/10/2015 Comp Metabolic Byv845 GLUCOSE 108 mg/dL 05/10/2015 Comp Metabolic Osm074 Creat 0.7 mg/dL 05/10/2015 Comp Metabolic Nar351 eGFR 86 ml/min/1.73m2 05/10/2015 Comp Metabolic Joz696 BUN 13 mg/dL 05/10/2015 Comp Metabolic Roo053 B/C Ratio 18.3 Ratio 05/10/2015 Comp Metabolic Yfw759 CALCIUM 9.4 mg/dL 05/10/2015 Comp Metabolic Mox054 ALK PHOS 94 U/L 05/10/2015 Comp Metabolic Lyo629 AST(SGOT) 22 U/L 05/10/2015 Comp Metabolic Hyu027 ALT(SGPT) 21 U/L 05/10/2015 Comp Metabolic Zov125 BILI T 0.3 mg/dL 05/10/2015 Comp Metabolic Llg110 ALBUMIN 3.9 g/dL 05/10/2015 Comp Metabolic Bdd966 TPRO 6.1 g/dL 05/10/2015 Comp Metabolic Hoh583 GLOB 2.2 g/dL 05/10/2015 Comp Metabolic Kls514 A/G Ratio 1.7 Ratio 05/10/2015 Comp Metabolic Dlc855 Osmo 274 mOsmo 05/10/2015 Tsh Ord6 hTSH [...] 29.4 pg 05/10/2015 Cbc With Differential Ord2 [place]% 9.0 % 05/10/2015 Cbc With Differential Ord2 [...] 2.14 K/ul 05/10/2015 Cbc With Differential Ord2 [place] ABS# 0.5 K/ul 05/10/2015 Cbc With Differential [...] Ord30 C/HDL 3.8 Ratio 05/10/2015 Culture Urine [id number] URINE CULTURE SEE NOTES 02/25/2015 Culture Urine [id number] Continued Results 02/25/2015 Urine Culture Ucult Complete >100,000 col/ml aerobic growth sent to ref lab 02/22/2015 Free T4 [id number] FREE T4 1.16 ng/dL 02/11/2015 Tsh Ord6 [...] nourished 05/10/2018 None Full Exam - General 1995 Eyes conjunctiva/eyelids Overall: conjunctiva clear 05/10/2018 None [...] distress 04/21/2018 None Full Exam - General 1995 Constitutional general appearance Overall: well nourished 04/21/2018 [...] time 11/03/2017 None Full Exam - General 1995 Constitutional general appearance Overall: well developed 09/22/2017 [...] Procedure Codes Date THER/PROPH/DIAG INJ SC/IM CPT-4: 07299 04/08/2018 ROCEPHIN, PER 250 MG CPT- 4: J0696 04/08/2018 THER/PROPH/DIAG INJ SC/IM CPT-4: 92790 04/07/2018 ROCEPHIN, PER 250 MG CPT- 4: J0696 04/07/2018 THER/PROPH/DIAG INJ SC/IM CPT-4: 89262 04/06/2018 ROCEPHIN, PER 250 MG CPT- 4: J0696 04/06/2018 THER/PROPH/DIAG INJ SC/IM CPT-4: 48006 04/05/2018 ROCEPHIN, PER 250 MG CPT- 4: J0696 04/05/2018 KETOROLAC TROMETHAMINE INJ CPT-4: J1885 04/05/2018 THER/PROPH/DIAG INJ SC/IM CPT-4: 04961 04/04/2018 ROCEPHIN, PER 250 MG CPT- 4: J0696 04/04/2018 KETOROLAC TROMETHAMINE INJ CPT-4: J1885 04/04/2018 URINALYSIS NONAUTO W/O SCOPE CPT-4: 82657 03/24/2018 PPPS, SUBSEQ VISIT CPT- 4: G0439 12/24/2017 THER/PROPH/DIAG INJ SC/IM CPT-4: 44113 12/24/2017 TRIAMCINOLONE ACET INJ NOS CPT-4: J3301 12/24/2017 THER/PROPH/DIAG INJ SC/IM CPT-4: 96508 11/18/2017 ROCEPHIN, PER 250 MG CPT- 4: J0696 11/18/2017 PRESCRIP TRANSMIT VIA ERX SY CPT-4: G8553 04/01/2017 TRIAMCINOLONE ACET INJ NOS CPT-4: J3301 03/25/2017 PPPS, SUBSEQ VISIT CPT- 4: G0439 12/23/2016 THER/PROPH/DIAG INJ SC/IM CPT-4: 31055 12/08/2016 TRIAMCINOLONE ACET INJ NOS CPT-4: J3301 12/08/2016 PRESCRIP TRANSMIT VIA ERX SY CPT-4: G8553 12/08/2016 PRESCRIP TRANSMIT VIA ERX SY CPT-4: G8553 11/30/2016 URINALYSIS NONAUTO W/O SCOPE CPT-4: 87186 07/08/2016 PRESCRIP TRANSMIT VIA ERX SY CPT-4: G8553 06/01/2016 PRESCRIP TRANSMIT VIA ERX SY CPT-4: G8553 02/27/2016 THER/PROPH/DIAG INJ SC/IM CPT-4: 68597 03/01/2015 ROCEPHIN, PER 250 MG CPT- 4: J0696 03/01/2015 THER/PROPH/DIAG INJ SC/IM CPT-4: 78240 02/28/2015 ROCEPHIN, PER 250 MG CPT- 4: J0696 02/28/2015 THER/PROPH/DIAG INJ SC/IM CPT-4: 56846 02/27/2015 ROCEPHIN, PER 250 MG CPT- 4: J0696 02/27/2015 THER/PROPH/DIAG INJ SC/IM CPT-4: 66875 02/26/2015 ROCEPHIN, PER 250 MG CPT- 4: J0696 02/26/2015 THER/PROPH/DIAG INJ SC/IM CPT-4: 49961 02/25/2015 ROCEPHIN, PER 250 MG CPT- 4: J0696 02/25/2015 URINALYSIS NONAUTO W/O SCOPE CPT-4: 13470 02/21/2015 Vital Signs Date Vital 07/13/2018 Blood Pressure 1: 144/60 Code: 8480-6 BMI: 28.0 Code: 35895-3 Heart Rate 1: 66 bpm Height: 5'3" SpO2: 98% Weight: 158 lbs 06/08/2018 Blood Pressure 1: 132/76 Code: 8480-6 BMI: 28.0 Code: 86411-2 Heart Rate 1: 70 bpm Height: 5'3" SpO2: 98% Weight: 158 lbs 05/30/2018 Blood Pressure 1: 136/72 Code: 8480-6 BMI: 28.0 Code: 53381-1 Heart Rate 1: 84 bpm Height: 5'3" Weight: 158 lbs 05/10/2018 Blood Pressure 1: 130/72 Code: 8480-6 BMI: 28.2 Code: 61785-9 Heart Rate 1: 70 bpm Height: 5'3" [...] 1: 134/58 Code: 8480-6 BMI: 27.8 Code: 34451-1 Heart Rate 1: 85 bpm Height: 5'3" SpO2: 96% Weight: 157 lbs 03/24/2018 Blood Pressure 1: 128/82 Code: 8480-6 BMI: 27.8 Code: 26081-3 Heart Rate 1: 84 bpm Height: 5'3" SpO2: 97% Weight: 157 lbs 03/01/2018 Blood Pressure 1: 136/70 Code: 8480-6 BMI: 27.8 Code: 00126-1 Heart Rate 1: 70 bpm Height: 5'3" SpO2: 96% Weight: 157 lbs 12/24/2017 Height: Weight: 11/18/2017 Blood Pressure 1: 164/74 Code: 8480-6 BMI: 27.6 Code: 70388-8 Heart Rate 1: 70 bpm Height: 5'3" SpO2: 96% Weight: 156 lbs 11/03/2017 Blood Pressure 1: 118/72 Code: 8480-6 BMI: 27.6 Code: 85059-2 Heart Rate 1: 82 bpm Height: 5'3" SpO2: 96% Weight: 156 lbs 09/22/2017 Blood Pressure 1: 136/68 Code: 8480-6 BMI: 27.6 Code: 69921-2 Heart Rate 1: 70 bpm Height: 5'3" SpO2: 97% Weight: 156 lbs 04/01/2017 Blood Pressure 1: 144/82 Code: 8480-6 Heart Rate 1: 68 bpm Height: 5'3" SpO2: 97% Weight: 03/25/2017 Blood Pressure 1: 116/70 Code: 8480-6 BMI: 26.7 Code: 87339-7 Heart Rate 1: 67 bpm Height: 5'3" SpO2: 98% Weight: 151 lbs 12/23/2016 BMI: 26.7 Code: 79735-5 Height: 5'3" Weight: 151 lbs 12/22/2016 Blood Pressure 1: 142/60 Code: 8480-6 BMI: 26.7 Code: 75522-6 Heart Rate 1: 67 bpm Height: 5'3" SpO2: 98% Weight: 151 lbs 12/08/2016 Blood Pressure 1: 140/72 Code: 8480-6 Heart Rate 1: 72 bpm Height: 5'3" SpO2: 97% Weight: 11/30/2016 Blood Pressure 1: 128/80 Code: 8480-6 BMI: 26.7 Code: 70355-4 Heart Rate 1: 63 bpm Height: 5'3" SpO2: 96% Weight: 151 lbs 09/28/2016 Blood Pressure 1: 130/80 Code: 8480-6 BMI: 27.1 Code: 59863-4 Heart Rate 1: 80 bpm Height: 5'3" SpO2: 97% Weight: 153 lbs 07/06/2016 Blood Pressure 1: 162/72 Code: 8480-6 BMI: 27.6 Code: 32883-0 Heart Rate 1: 72 bpm Height: 5'3" SpO2: 98% Weight: 156 lbs 06/01/2016 Blood Pressure 1: 122/66 Code: 8480-6 BMI: 27.5 Code: 53323-5 Heart Rate 1: 73 bpm Height: 5'3" SpO2: 98% Weight: 155 lbs 8 oz 02/27/2016 Blood Pressure 1: 126/68 Code: 8480-6 BMI: 26.9 Code: 65070-8 Heart Rate 1: 70 bpm Height: 5'3" SpO2: 98% Weight: 152 lbs 09/10/2015 Blood Pressure 1: 130/70 Code: 8480-6 BMI: 26.9 Code: 49443-2 Heart Rate 1: 72 bpm Height: 5'3" SpO2: 97% Weight: 152 lbs 05/14/2015 Blood Pressure 1: 138/82 Code: 8480-6 BMI: 26.4 Code: 52856-1 Heart Rate 1: 75 bpm Height: 5'3" SpO2: 98% Weight: 149 lbs 02/11/2015 Blood Pressure 1: 128/72 Code: 8480-6 BMI: 25.5 Code: 49795-6 Heart Rate 1: 73 bpm Height: 5'3" [...] Encounters Encounter Performer Location Codes Date () 17688 EST. PATIENT, LEVEL III Diagnosis: Essential (primary) hypertension[ICD10: I10] Diagnosis: Atrophy of thyroid (acquired)[ICD10: E03.4] Elen Cortez MD, [facility] CPT-4: 30940 07/13/2018 41789 EST. PATIENT, LEVEL III Diagnosis: Other fatigue[ICD10: R53.83] Diagnosis: Essential (primary) hypertension[ICD10: I10] Bridget Cortez MD, [facility] CPT-4: 45399 06/08/2018 86704 EST. PATIENT, LEVEL IV Diagnosis: Essential (primary) hypertension[ICD10: I10] Diagnosis: Other fatigue[ICD10: R53.83] Diagnosis: Other allergic rhinitis[ICD10: J30.89] Bridget Cortez MD, [facility] CPT- 4: 09537 05/30/2018 15758 EST. PATIENT, LEVEL IV Diagnosis: Essential (primary) hypertension[ICD10: I10] Diagnosis: Other fatigue[ICD10: R53.83] Bridget Cortez MD, [facility] CPT-4: 53504 05/10/2018 71268 EST. PATIENT, LEVEL IV Diagnosis: Low back pain[ICD10: M54.5] Diagnosis: Essential (primary) hypertension[ICD10: I10] Diagnosis: Other fatigue[ICD10: R53.83] Diagnosis: Other malaise[ICD10: R53.81] Bridget Cortez MD, [facility] CPT-4: 47476 04/21/2018 02504 EST. PATIENT, LEVEL III Diagnosis: Other fatigue[ICD10: R53.83] Diagnosis: Otalgia, right ear[ICD10: H92.01] Bridget Cortez MD, [facility] CPT-4: 83834 04/13/2018 ([id number]) 98704 EST. PATIENT, LEVEL III Diagnosis: Essential (primary) hypertension[ICD10: I10] Diagnosis: Dysuria[ICD10: R30.0] Diagnosis: Nausea[ICD10: R11.0] Diagnosis: Headache[ICD10: R51] Elen Cortez MD, [facility] CPT-4: 80576 04/04/2018 19532 EST. PATIENT, LEVEL III Diagnosis: Other acute sinusitis[ICD10: J01.80] Diagnosis: Dizziness and giddiness[ICD10: R42] Diagnosis: Dysuria[ICD10: R30.0] Diagnosis: Candidal stomatitis[ICD10: B37.0] Diagnosis: Essential (primary) hypertension[ICD10: I10] Diagnosis: Other fatigue[ICD10: R53.83] Diagnosis: Other malaise[ICD10: R53.81] Bridget Cortez MD, [facility] CPT-4: 45996 04/01/2018 ([id number]) 18594 EST. 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 PATIENT, LEVEL IV Diagnosis: Otalgia, right ear[ICD10: H92.01] Diagnosis: Headache[ICD10: R51] Diagnosis: Other fatigue[ICD10: R53.83] Diagnosis: Abnormal findings on diagnostic imaging of other specified body structures[ICD10: R93.89] Elen Cortez MD, [facility] CPT-4: 98794 03/01/2018 89906 EST. PATIENT, LEVEL III Diagnosis: Acute cystitis with hematuria[ICD10: N30.01] Bridget Cortez MD, [facility] CPT-4: 45221 11/18/2017 34821 EST. PATIENT, LEVEL IV Diagnosis: Other acute sinusitis[ICD10: J01.80] Diagnosis: Otalgia, right ear[ICD10: H92.01] Bridget Cortez MD, [facility] CPT-4: 48476 11/03/2017 23509 EST. PATIENT, LEVEL III Diagnosis: Other fatigue[ICD10: R53.83] Diagnosis: Other malaise[ICD10: R53.81] Diagnosis: Pain in left knee[ICD10: M25.562] Diagnosis: Pain in right knee[ICD10: M25.561] Bridget Cortez MD, [facility] CPT-4: 78505 09/22/2017 ([id number]) 71235 EST. PATIENT, LEVEL III Diagnosis: Cough[ICD10: R05] Diagnosis: Acute bronchitis due to other specified organisms[ICD10: J20.8] Elen Cortez MD, [facility] CPT-4: 06310 04/01/2017 ([id number]) 17414 EST. PATIENT, LEVEL III Diagnosis: Otalgia, right ear[ICD10: H92.01] Diagnosis: Other allergic rhinitis[ICD10: J30.89] Shiela Cortez MD, [facility] CPT-4: 68303 03/25/2017 ([id number]) 53525 EST. PATIENT, LEVEL III Diagnosis: Benign paroxysmal vertigo, bilateral[ICD10: H81.13] Shiela Cortez MD, [facility] CPT-4: 07836 12/22/2016 ([id number]) 56765 EST. PATIENT, LEVEL IV Diagnosis: Benign paroxysmal vertigo, bilateral[ICD10: H81.13] Diagnosis: Other allergic rhinitis[ICD10: J30.89] Diagnosis: Hypothyroidism, unspecified[ICD10: E03.9] Shiela Cortez MD, [facility] CPT-4: 37286 12/08/2016 ([id number]) 50695 EST. PATIENT, LEVEL IV Diagnosis: Atrophy of thyroid (acquired)[ICD10: E03.4] Diagnosis: Essential (primary) hypertension[ICD10: I10] Diagnosis: Mixed hyperlipidemia[ICD10: E78.2] Elen Cortez MD, [facility] CPT- 4: 51762 11/30/2016 08413 EST. PATIENT, LEVEL IV Diagnosis: Headache[ICD10: R51] Diagnosis: Other fatigue[ICD10: R53.83] Diagnosis: Dizziness and giddiness[ICD10: R42] Bridget Cortez MD, [facility] CPT- 4: 70336 09/28/2016 63624 EST. PATIENT, LEVEL IV Diagnosis: Essential (primary) hypertension[ICD10: I10] Diagnosis: Headache[ICD10: R51] Bridget Cortez MD, [facility] CPT-4: 61904 07/06/2016 ([id number]) 23202 EST. PATIENT, LEVEL IV Diagnosis: Essential (primary) hypertension[ICD10: I10] Diagnosis: Atrophy of thyroid (acquired)[ICD10: E03.4] Diagnosis: Mixed hyperlipidemia[ICD10: E78.2] Elen Cortez MD, [facility] CPT- 4: 42976 06/01/2016 25734 EST. PATIENT, LEVEL IV Diagnosis: Acute laryngopharyngitis[ICD10: J06.0] Diagnosis: Other allergic rhinitis[ICD10: J30.89] Diagnosis: Other specified hypothyroidism[ICD10: E03.8] Diagnosis: Other fatigue[ICD10: R53.83] Bridget Cortez MD, [facility] CPT-4: 33615 02/27/2016 ([id number]) 79439 EST. PATIENT, LEVEL III Diagnosis: Essential (primary) hypertension[ICD10: I10] Diagnosis: Mixed hyperlipidemia[ICD10: E78.2] Elen Cortez MD, [facility] CPT- 4: 59034 09/10/2015 ([id number]) 53014 EST. PATIENT, LEVEL IV Diagnosis: Essential (primary) hypertension[ICD10: I10] Diagnosis: Hypothyroidism, unspecified[ICD10: E03.9] Diagnosis: Unspecified osteoarthritis, unspecified site[ICD10: M19.90] [facility] CPT-4: 90961 05/14/2015 ([id number]) OFFICE VISIT, NEW - LEVEL 4 Diagnosis: Essential (primary) hypertension[ICD10: I10] Diagnosis: Hypothyroidism, unspecified[ICD10: E03.9] Diagnosis: Unspecified osteoarthritis, unspecified site[ICD10: M19.90] [facility] CPT-4: 67560 02/11/2015 Plan of Care Planned Activity Notes [...] based on previous levels of control. 07/13/2018 Patient Education: Patient Medication Summary Completed [...] at home. 06/08/2018 Appointment: Bridget Velazco WPtel: [address] [place], [place] [address] (15 min) Moderate 06/08/2018 Patient Education: Patient [...] spray. 05/30/2018 Appointment: Bridget Velazco WPtel: [phone] [facility] (15 min) Moderate 05/30/2018 Patient Education: [...] concerns. 05/10/2018 Appointment: Bridget Velazco WPtel: [phone] [facility] (15 min) Moderate 05/10/2018 Patient Education: Patient Medication Summary Completed 05/10/2018 Appointment: Elen Cortez WPtel: [phone] [facility] (15 min) Moderate 05/05/2018 Referral: Wan Steven [...] or concerns. 04/21/2018 Appointment: [phone] [place] (15 min) Moderate 04/21/2018 Patient Education: Patient Medication Summary Completed 04/21/2018 Patient Education: Back Pain Completed 04/21/2018 Appointment: Bridget Velazco WPtel: [phone] [facility] (15 min) Moderate 04/14/2018 Care Plan: Urine [...] Saini. 04/13/2018 Appointment: Bridget Velazco WPtel: [phone] [facility] [place] (30 min) Complex 04/13/2018 Patient Education: Patient Medication Summary Completed 04/13/2018 Appointment: Nurse Visit 04/08/2018 Appointment: Bridget Velazco WPtel: [facility]5 [facility] [place] (15 min) Moderate 04/08/2018 Patient Education: Patient Medication Summary Completed 04/08/2018 Appointment: Injection 04/07/2018 Patient Education: Patient Medication Summary Completed 04/07/2018 Appointment: Injection 04/06/2018 Patient Education: Patient Medication Summary Completed 04/06/2018 Appointment: Injection 04/05/2018 Appointment: Elen Cortez WPtel: [facility]5 [facility] (15 min) Moderate 04/05/2018 Patient Education: Patient [...] today. 04/04/2018 Appointment: Elen Cortez WPtel: [phone] [facility] [place] (10 min) Simple 04/04/2018 Patient Education: Patient Medication Summary Completed 04/04/2018 Patient Education: Patient Medication Summary Completed 04/04/2018 Patient Education: Patient Medication Summary Completed 04/04/2018 Care Plan: Referral Order SNOMED-CT : [id number] Pending 04/04/2018 Visit Plan: Dysuria, dizziness, fatigue, [...] improvement. 04/01/2018 Appointment: [facility]el[phone] (15 min) Moderate 04/01/2018 Patient Education: Patient Medication Summary Completed 04/01/2018 Visit Plan: Sinusitis - Pt has acute infection - pain in face, maxillary region, Pt informed to use decongestant, RX given to patient, sinus rinses also recommended. Call if symptoms do not show improvement. Dysuria - rx for antibiotic sent to pharmacy. 03/24/2018 Appointment: [phone] [place] (15 min) Moderate 03/24/2018 Patient Education: Patient [...] improve. 03/01/2018 Appointment: Elen Cortez WPtel: [phone] [facility] (15 min) Moderate 03/01/2018 Patient Education: Patient [...] spray. 12/24/2017 Appointment: Br[facility] Velazco WPtel[phone] [facility] [facility] - Annual Wellness Visit 12/24/2017 Patient Education: Patient Medication Summary Completed 12/24/2017 Appointment: Br[facility] Velazco WPtel[phone] (15 min) Moderate 11/30/2017 Appointment: Lab [...] not improve. 11/18/2017 Appointment: Bridget Velazco WPtel: [facility] (15 min) Moderate 11/18/2017 Patient Education: Patient Medication Summary Completed 11/18/2017 Visit Plan: Sinusitis - Pt has acute infection - pain in face, maxillary region, Pt informed to use decongestant, RX given to patient, sinus rinses also recommended. Call if symptoms do not show improvement. 11/03/2017 Appointment: Bridget Velazco WPtel: [facility]3 [facility] (15 min) Moderate 11/03/2017 Patient [...] not improve. 09/22/2017 Appointment: Bridget Velazco WPtel: [facility] (15 min) Moderate 09/22/2017 Patient Education: Patient Medication Summary Completed 09/22/2017 Visit Plan: Bronchitis - acute case of bronchitis identified. Pt has been given antibiotics, breathing treatments as appropriate, and pt has been instructed to call if symptoms are not improved, or if symptoms acutely worsen. 04/01/2017 Appointment: Elen Cortez WPtel: [phone] [facility] (15 min) Moderate 04/01/2017 Patient Education: Patient [...] allergy spray. 03/25/2017 Appointment: Shiela Srivastava WPtel: [address] [place], [place] [id number] [place] [address] (10 min) Simple 03/25/2017 Appointment: Elen Cortez WPtel: [address] [place] [address] (15 min) Moderate 03/25/2017 Patient Education: Patient [...] care surrogate. 12/23/2016 Appointment: Bridget Velazco WPtel: [facility] [facility] [place] [address] - Annual Wellness Visit 12/23/2016 Patient Education: Patient Medication Summary Completed 12/23/2016 Visit Plan: Vertigo-discussed PT for vestibular exercises-patient wants to wait since symptoms are improving-continue anti histamine as directed- meclizine as needed 12/22/2016 Appointment: Shiela Srivastava WPtel: [phone] [facility] (30 min) Complex 12/22/2016 Patient Education: [...] of control. 12/08/2016 Appointment: Shiela Srivastava WPtel: [facility] (30 min) Complex 12/08/2016 Patient Education: [...] to medications. 11/30/2016 Appointment: [facility]Ptel[phone] (15 min) Moderate 11/30/2016 Patient Education: [...] concerns. 09/28/2016 Appointment: Bridget Velazco WPtel: [phone] [facility] (30 min) Complex 09/28/2016 Patient [...] concerns. 07/06/2016 Appointment: Bridget Velazco WPtel: [phone] [facility] (15 min) Moderate 07/06/2016 Patient Education: [...] improving 06/01/2016 Appointment: [facility] Cortez [facility]Ptel[phone] (15 min) Moderate 06/01/2016 Patient Education: [...] labs 02/27/2016 Appointment: Bridget Velazco WPtel: [phone] [facility] [place] (30 min) Complex 02/27/2016 Patient Education: Patient Medication Summary Completed 02/27/2016 Patient Education: Patient Medication Summary Completed 09/27/2015 [facility] Plan[facility] 6[facility] Pending 09/27/2015 Visit Plan: Hypertension - well [...] the colonoscopy 09/10/2015 Appointment: Elen Cortez WPtel: [facility] (15 min) Moderate 09/10/2015 Patient Education: [...] Dr. Sanchez. 05/14/2015 Appointment: Elen Cortez WPtel: [facility] [place] (15 min) Moderate 05/14/2015 Patient Education: Patient Medication Summary Completed 05/14/2015 Patient Education: Hypertension Completed 05/14/2015 Care Plan: Referral Order SNOMED-CT : [id number] Ordered 05/14/2015 Patient Education: Patient Medication Summary [...] URINALYSIS NONAUTO W/O [facility] : 29637-6 Ordered 02/21/2015 Visit Plan: Hypertension - well [...] pain symptoms. 02/11/2015 Appointment: Elen Cortez WPtel: [address] [place] [address] New Patient 02/11/2015 Patient Education: Patient Medication [...]
--- OUTSIDE RECORDS SUMMARY | 2018-11-10 18:43 | XMS REPORT | CCD ---
Author Author [facility]en [facility] Organization [facility] Address [address] [place] [address] Phone Care Team Providers Care Group Tester Name Role Phone PP Unavailable CCM Unavailable Summary Purpose Interface Exchange Insurance Providers Payer name Policy type / Coverage type Covered constitution party ID Effective Begin Date Effective End Date WPS Medicare Part B Medicare Part B [id number] Unknown [employer] Medicare Part B [id number] Unknown Family history Mother Diagnosis Age At [...] spouses - 02/11/[address]: 023620652 Never smoker 02/11/2015 Alcohol history Unknown occasionally drinks alcohol 02/11/2015 Allergies, Adverse Reactions, Alerts Substance Reaction Codes Entered Date Inactivated Date Status CODEINE RxNorm: 2670 02/11/2015 No Inactive Date Active allergy Unknown 12/23/2016 No Inactive Date Active ciprofloxacin rash, RxNorm: 24235 02/26/2015 No Inactive Date Active hydrocodone Unknown [...] Fill Instructions levocetirizine 5 mg tablet RxNorm: 807928 1 Tablet(s) PO daily 05/30/2018 08/27/2018 Active nystatin 100,000 unit/gram topical cream RxNorm: 733980 1 Gram(s) TOP TID as needed 05/30/2018 No Stop Date Active metoprolol succinate ER 50 mg tablet,extended release 24 hr RxNorm: 918340 1 Tablet(s) daily may take 1 extra tab daily if systolic bp elevated 05/03/2018 11/28/2018 Active metoprolol succinate ER 50 mg tablet,extended release 24 hr RxNorm: 172868 Tablet(s) Tablet(s) TAKE 1 TABLET BY MOUTH DAILY 05/03/2018 05/02/2018 Inactive lisinopril 20 mg tablet RxNorm: 812457 TAKE 1 TABLET BY MOUTH TWICE DAILY 04/22/2018 09/18/2018 Active Generic For:*PRINIVIL 20 MG TABLET 04/22/2018 9:57:59 AM levocetirizine 5 mg tablet RxNorm: 805866 1 Tablet(s) PO daily 04/22/2018 04/21/2018 Inactive Singulair 10 mg tablet RxNorm: 986764 1 Tablet(s) PO QHS 04/22/2018 04/21/2018 Inactive Singulair 10 mg tablet RxNorm: 387169 1 Tablet(s) PO QHS 04/22/2018 05/12/2018 Inactive levocetirizine 5 mg tablet RxNorm: 207281 1 Tablet(s) PO daily 04/22/2018 05/21/2018 Inactive ceftriaxone 500 mg solution for injection RxNorm: 2378527 Inj 04/08/2018 04/08/2018 Inactive ceftriaxone 500 mg solution for injection RxNorm: 4629310 Inj 04/07/2018 04/07/2018 Inactive ceftriaxone 500 mg solution for injection RxNorm: 7167458 Inj 04/06/2018 04/06/2018 Inactive ketorolac 60 mg/2 mL intramuscular solution RxNorm: 9158541 Milliliter(s) IM 04/05/2018 04/05/2018 Inactive ceftriaxone 500 mg solution for injection RxNorm: 6995671 Inj 04/05/2018 04/05/2018 Inactive ondansetron 4 mg disintegrating tablet RxNorm: 480202 1 Tablet(s) PO TID as needed nausea 04/04/2018 No Stop Date Active ketorolac 30 mg/mL injection solution RxNorm: 572995 2 Milliliter(s) Inj 04/04/2018 04/04/2018 Inactive ceftriaxone 500 mg solution for injection RxNorm: 3755110 Inj 04/04/2018 04/04/2018 Inactive nystatin 100,000 unit/mL oral suspension RxNorm: 956231 4 Milliliter(s) PO QID 04/01/2018 04/05/2018 Inactive doxycycline hyclate 100 mg tablet RxNorm: 6849732 1 Tablet(s) PO BID 04/01/2018 04/10/2018 Inactive amoxicillin 500 mg capsule RxNorm: 521207 1 Capsule(s) PO TID 03/24/2018 04/02/2018 Inactive prednisone 10 mg tablet RxNorm: 863583 1 Tablet(s) PO UD 6 pills on day 1 and 2 and then decrease by one pill every other day until prescription is done 03/24/2018 05/12/2018 Inactive metoprolol succinate ER 50 mg tablet,extended release 24 hr RxNorm: 759167 Tablet(s) TAKE 1 TABLET BY MOUTH DAILY 03/21/2018 05/02/2018 Inactive PLEASE SEND REFILL REQUESTS ELECTRONICALLY!! Synthroid 88 mcg tablet RxNorm: 383376 TAKE 1 TABLET BY MOUTH DAILY 03/08/2018 08/04/2018 Active 03/07/2018 11:21:21 AM pravastatin 80 mg tablet RxNorm: 672905 Tablet(s) 1 Tablet(s) PO daily 03/01/2018 02/23/2019 Active Kenalog 40 mg/mL suspension for injection RxNorm: 2892939 Milliliter(s) Inj 12/24/2017 12/24/2017 Inactive cetirizine 10 mg tablet RxNorm: 0776631 TAKE 1 TABLET BY MOUTH DAILY 12/21/2017 04/19/2018 Inactive Generic For:*ZYRTEC 10 MG TABLET 12/21/2017 10:08:05 AM Synthroid 88 mcg tablet RxNorm: 663743 TAKE 1 TABLET BY MOUTH DAILY 12/07/2017 03/06/2018 Inactive 12/06/2017 11:46:49 AM Lipitor 80 mg tablet RxNorm: 315383 1 Tablet(s) PO daily 11/29/2017 02/28/2018 Inactive pravastatin 80 mg tablet RxNorm: 897673 1 Tablet(s) PO daily 11/29/2017 11/29/2017 Inactive Lipitor 80 mg tablet RxNorm: 329787 1 Tablet(s) PO daily 11/29/2017 11/28/2017 Inactive lisinopril 20 mg tablet RxNorm: 707378 TAKE 1 TABLET BY MOUTH TWICE DAILY 11/23/2017 04/21/2018 Inactive Generic For:*PRINIVIL 20 MG TABLET 11/23/2017 11:29:44 AM Macrobid 100 mg capsule RxNorm: 594862 1 Capsule(s) PO BID 11/19/2017 11/25/2017 Inactive Macrobid 100 mg capsule RxNorm: 731113 1 Capsule(s) PO BID 11/19/2017 11/18/2017 Inactive Lomotil 2.5 mg-0.025 mg tablet RxNorm: 0034017 1 -2 Tablet(s) PO TID as needed 11/19/2017 11/25/2017 Inactive Lomotil 2.5 mg-0.025 mg tablet RxNorm: 7990280 1 -2 Tablet(s) PO TID as needed 11/19/2017 11/18/2017 Inactive Pyridium 200 mg tablet RxNorm: 1130956 1 Tablet(s) PO TID as needed 11/18/2017 11/22/2017 Inactive Augmentin 500 mg-125 mg tablet RxNorm: 499790 1 Tablet(s) PO TID 11/18/2017 11/27/2017 Inactive Keflex 500 mg capsule RxNorm: 515383 1 Capsule(s) PO TID 11/03/2017 11/09/2017 Inactive Denavir 1 % topical cream RxNorm: 162344 1 TOP TID as needed cold sores 11/01/2017 01/29/2018 Inactive Denavir 1 % topical cream RxNorm: 541271 1 TOP TID as needed cold sores 11/01/2017 10/31/2017 Inactive Synthroid 88 mcg tablet RxNorm: 669749 TAKE 1 TABLET BY MOUTH DAILY 09/29/2017 11/27/2017 Inactive 09/29/2017 12:58:07 PM pravastatin 80 mg tablet RxNorm: 102230 1 Tablet(s) PO daily 08/31/2017 08/30/2017 Inactive pravastatin 80 mg tablet RxNorm: 569645 1 Tablet(s) PO daily 08/31/2017 11/28/2017 Inactive Synthroid 88 mcg tablet RxNorm: 962453 TAKE 1 TABLET BY MOUTH DAILY 08/30/2017 09/28/2017 Inactive 08/30/2017 10:53:26 AM metoprolol succinate ER 50 mg tablet,extended release 24 hr RxNorm: 053554 Tablet(s) TAKE 1 TABLET BY MOUTH DAILY 08/17/2017 03/14/2018 Inactive PLEASE SEND REFILL REQUESTS ELECTRONICALLY!! lisinopril 20 mg tablet RxNorm: 038231 TAKE 1 TABLET BY MOUTH TWICE DAILY 06/18/2017 11/14/2017 Inactive Generic For:*PRINIVIL 20 MG TABLET 06/18/2017 1:31:00 PM Synthroid 88 mcg tablet RxNorm: 955788 TAKE 1 TABLET BY MOUTH DAILY 05/24/2017 08/21/2017 Inactive 05/24/2017 2:13:21 PM cetirizine 10 mg tablet RxNorm: 3347830 1 Tablet(s) PO daily 05/17/2017 12/12/2017 Inactive Zithromax Z-Russell 250 mg capsule RxNorm: 136823 1 Capsule(s) PO 04/02/2017 04/05/2017 Inactive Zithromax Z-Russell 250 mg tablet RxNorm: 000447 1 Tablet(s) PO 04/02/2017 04/01/2017 Inactive Zithromax Z-Russell 250 mg capsule RxNorm: 007618 1 Capsule(s) PO 04/02/2017 04/01/2017 Inactive Zithromax Z-Russell 250 mg tablet RxNorm: 374558 1 Tablet(s) PO 04/02/2017 04/06/2017 Inactive Ventolin HFA 90 mcg/actuation aerosol inhaler RxNorm: 621162 2 INH QID as needed - for the first 3 days inhale at least two puffs three times daily, then use as needed for shortness of breath 04/01/2017 04/30/2017 Inactive Keflex 500 mg capsule RxNorm: 548208 1 Capsule(s) PO TID 04/01/2017 04/01/2017 Inactive meclizine 25 mg tablet RxNorm: 564330 Tablet(s) 1 Tablet(s) PO Q6 PRN 03/25/2017 03/24/2017 Inactive dizziness Kenalog 40 mg/mL suspension for injection RxNorm: 2557336 1 Milliliter(s) Inj 03/25/2017 03/25/2017 Inactive meclizine 25 mg tablet RxNorm: 288859 1 Tablet(s) PO Q6 PRN 1 Tablet(s) PO Q6 PRN 03/25/2017 05/12/2018 Inactive dizziness meclizine 25 mg tablet RxNorm: 631225 1 Tablet(s) PO Q6 PRN 02/15/2017 03/24/2017 Inactive dizziness lisinopril 20 mg tablet RxNorm: 471989 1 Tablet(s) PO BID 01/15/2017 06/13/2017 Inactive metoprolol succinate ER 50 mg tablet,extended release 24 hr RxNorm: 421784 TAKE 1 TABLET BY MOUTH DAILY 01/07/2017 08/04/2017 Inactive Generic For:TOPROL XL 50MG TAB 01/07/2017 12:38:23 PM Synthroid 88 mcg tablet RxNorm: 116589 TAKE 1 TABLET BY MOUTH DAILY 12/25/2016 05/23/2017 Inactive 12/25/2016 9:47:08 AM Zithromax Z-Russell 250 mg tablet RxNorm: 894066 Tablet(s) PO UD 12/23/2016 03/24/2017 Inactive meclizine 25 mg tablet RxNorm: 561263 1 Tablet(s) PO Q6 PRN 12/08/2016 12/20/2016 Inactive dizziness Kenalog 40 mg/mL suspension for injection RxNorm: 2777260 Milliliter(s) Inj 12/08/2016 12/08/2016 Inactive meloxicam 15 mg tablet RxNorm: 764484 1 Tablet(s) PO daily 11/30/2016 12/20/2016 Inactive cetirizine 10 mg tablet RxNorm: 7487340 1 Tablet(s) PO daily 10/23/2016 05/16/2017 Inactive pravastatin 40 mg tablet RxNorm: 354456 1 Tablet(s) PO BID 08/20/2016 08/30/2017 Inactive Cancel 80 mg tab lisinopril 20 mg tablet RxNorm: 718288 1 Tablet(s) PO BID 08/12/2016 12/22/2016 Inactive Synthroid 88 mcg tablet RxNorm: 339875 1 Tablet(s) PO TAKE ONE (1) TABLET BY MOUTH DAILY 07/28/2016 12/24/2016 Inactive decrease dose hydralazine 25 mg tablet RxNorm: 571830 1 Tablet(s) PO TID as needed for Systolic blood pressure over 170 07/06/2016 12/20/2016 Inactive lisinopril 20 mg tablet RxNorm: 956337 1 Tablet(s) PO BID to replace your other lisinopril dose 07/06/2016 08/04/2016 Inactive lisinopril 10 mg tablet RxNorm: 498165 TAKE ONE TABLET BY MOUTH TWICE DAILY 06/10/2016 08/11/2016 Inactive Generic For:ZESTRIL 10 MG TABLET 06/09/2016 12:58:50 PM triamcinolone acetonide 0.1 % topical cream RxNorm: 9673276 1 Application TOP TID as needed 06/01/2016 No Stop Date Active nystatin 100,000 unit/gram topical cream RxNorm: 804147 1 Gram(s) TOP TID as needed 06/01/2016 05/29/2018 Inactive metoprolol succinate ER 50 mg tablet,extended release 24 hr RxNorm: 952346 1 Tablet(s) PO daily 05/26/2016 12/21/2016 Inactive cetirizine 10 mg tablet RxNorm: 6853953 1 Tablet(s) PO daily 03/23/2016 10/18/2016 Inactive Synthroid 88 mcg tablet RxNorm: 031631 1 Tablet(s) PO TAKE ONE (1) TABLET BY MOUTH DAILY 03/06/2016 03/07/2018 Inactive Brand name only! Synthroid 88 mcg tablet RxNorm: 525472 1 Tablet(s) PO TAKE ONE (1) TABLET BY MOUTH DAILY 03/04/2016 03/05/2016 Inactive decrease dose cetirizine 10 mg tablet RxNorm: 3491193 1 Tablet(s) PO daily 02/27/2016 03/22/2016 Inactive amoxicillin 500 mg capsule RxNorm: 171228 1 Capsule(s) PO TID 02/27/2016 03/04/2016 Inactive lisinopril 10 mg tablet RxNorm: 114245 TAKE ONE TABLET BY MOUTH TWICE DAILY 02/06/2016 06/04/2016 Inactive Generic For:ZESTRIL 10 MG TABLET 02/06/2016 12:16:38 PM Synthroid 100 mcg tablet RxNorm: 013514 TAKE ONE (1) TABLET BY MOUTH DAILY 01/03/2016 03/03/2016 Inactive 01/03/2016 10:35:14 AM N O T I C E Last quantity doesn't match original quantity lisinopril 10 mg tablet RxNorm: 349797 1 Tablet(s) PO BID 10/04/2015 01/31/2016 Inactive Synthroid 100 mcg tablet RxNorm: 482050 1 Tablet(s) PO daily 10/04/2015 01/02/2016 Inactive metoprolol succinate ER 50 mg tablet,extended release 24 hr RxNorm: 400463 1 Tablet(s) PO daily 10/04/2015 04/30/2016 Inactive Tylenol Arthritis 650 mg tablet,extended release RxNorm: 7390462 2 Tablet(s) PO TID 09/10/2015 No Stop Date Active metoprolol succinate ER 50 mg tablet,extended release 24 hr RxNorm: 073761 1 Tablet(s) PO daily 09/05/2015 10/03/2015 Inactive pravastatin 80 mg tablet RxNorm: 709044 1 Tablet(s) PO QHS 08/30/2015 08/30/2015 Inactive pravastatin 40 mg tablet RxNorm: 400185 1 Tablet(s) PO BID 08/30/2015 08/29/2015 Inactive Cancel 80 mg tab pravastatin 40 mg tablet RxNorm: 532119 1 Tablet(s) PO BID 08/30/2015 08/19/2016 Inactive Cancel 80 mg tab lisinopril 10 mg tablet RxNorm: 929641 1 Tablet(s) PO BID 06/13/2015 08/11/2016 Inactive lisinopril 10 mg tablet RxNorm: 824977 1 Tablet(s) PO BID 06/13/2015 10/03/2015 Inactive Synthroid 100 mcg tablet RxNorm: 122323 1 Tablet(s) PO daily 06/10/2015 10/03/2015 Inactive ceftriaxone 1 gram solution for injection RxNorm: 2316110 Inj 03/01/2015 03/01/2015 Inactive ceftriaxone 1 gram solution for injection RxNorm: 2203835 Inj 02/28/2015 02/28/2015 Inactive ceftriaxone 1 gram solution for injection RxNorm: 6080210 Inj 02/27/2015 02/27/2015 Inactive ceftriaxone 1 gram solution for injection RxNorm: 5817251 Inj 02/26/2015 02/26/2015 Inactive ceftriaxone 1 gram solution for injection RxNorm: 0861525 Inj 02/25/2015 02/25/2015 Inactive phenazopyridine 200 mg tablet RxNorm: 1515349 1 Tablet(s) PO Q8 02/21/2015 02/20/2015 Inactive Cipro 500 mg tablet RxNorm: 131305 1 Tablet(s) PO BID 02/21/2015 02/20/2015 Inactive phenazopyridine 200 mg tablet RxNorm: 4901751 1 Tablet(s) PO Q8 02/21/2015 02/25/2015 Inactive Cipro 500 mg tablet RxNorm: 716501 1 Tablet(s) PO BID 02/21/2015 02/27/2015 Inactive lisinopril 10 mg tablet RxNorm: 367715 1 Tablet(s) PO BID 02/14/2015 06/12/2015 Inactive metoprolol succinate ER 50 mg tablet,extended release 24 hr RxNorm: 661311 3/4 Tablet(s) PO daily 02/11/2015 09/04/2015 Inactive Voltaren 1 % topical gel RxNorm: 559701 2 Gram(s) TOP QID use this on affected joints up to four times daily. 02/11/2015 03/12/2015 Inactive Probiotic oral RxNorm: 6205 oral No Start Date Active aspirin 81 mg tablet RxNorm: 929839 1 Tablet(s) PO daily No Start Date Active Super B-Complex tablet RxNorm: 1 Tablet(s) PO No Start Date Active Super-D3+ oral RxNorm: oral No Start Date Active Prilosec OTC 20 mg tablet,delayed release RxNorm: 446969 2 Tablet(s) PO QAM No Start Date Active Flonase Allergy Relief 50 mcg/actuation nasal spray,suspension RxNorm: 8915969 1 [place] NASAL as needed No Start Date Active Move Free Ultra 40 mg-10 mg-3.3 mg tablet RxNorm: 1 Tablet(s) PO daily No Start Date Active metoprolol tartrate 50 mg tablet RxNorm: 592151 1 Tablet(s) PO daily No Start Date 02/10/2015 Inactive lisinopril 10 mg tablet RxNorm: 451642 1 Tablet(s) PO BID No Start Date 02/13/2015 Inactive pravastatin 80 mg tablet RxNorm: 724162 1 Tablet(s) PO daily No Start Date 08/29/2015 Inactive Flonase Allergy Relief 50 mcg/actuation nasal spray,suspension RxNorm: 1055594 1 [place] NASAL BID No Start Date 05/12/2018 Inactive Synthroid 100 mcg tablet RxNorm: 719331 1 Tablet(s) PO daily No Start Date 06/09/2015 Inactive lisinopril 40 mg tablet RxNorm: 254896 1 Tablet(s) PO BID No Start Date 02/28/2018 Inactive Tylenol Arthritis 650 mg tablet,extended release RxNorm: 3548967 4 Tablet(s) PO daily No Start Date 09/09/2015 Inactive Medication Administered Medication Codes Instructions Start Date Status ceftriaxone 500 mg solution for injection RxNorm: 5851041 04/08/2018 No longer Active ceftriaxone 500 mg solution for injection RxNorm: 3171232 04/07/2018 No longer Active ceftriaxone 500 mg solution for injection RxNorm: 4399200 04/06/2018 No longer Active ceftriaxone 500 mg solution for injection RxNorm: 0916967 04/05/2018 No longer Active ketorolac 60 mg/2 mL intramuscular solution RxNorm: 5366264 Milliliter 04/05/2018 No longer Active ceftriaxone 500 mg solution for injection RxNorm: 4912069 04/04/2018 No longer Active ketorolac 30 mg/mL injection solution RxNorm: 922181 2Milliliter 04/04/2018 No longer Active Kenalog 40 mg/mL suspension for injection RxNorm: 1813278 Milliliter 12/24/2017 No longer Active Kenalog 40 mg/mL suspension for injection RxNorm: 8885648 1Milliliter 03/25/2017 No longer Active Kenalog 40 mg/mL suspension for injection RxNorm: 1052024 Milliliter 12/08/2016 No longer Active ceftriaxone 1 gram solution for injection RxNorm: 1459007 03/01/2015 No longer Active ceftriaxone 1 gram solution for injection RxNorm: 0759453 02/28/2015 No longer Active ceftriaxone 1 gram solution for injection RxNorm: 3562789 02/27/2015 No longer Active ceftriaxone 1 gram solution for injection RxNorm: 3018916 02/26/2015 No longer Active ceftriaxone 1 gram solution for injection RxNorm: 4272291 02/25/2015 No longer Active Immunizations Vaccine Codes Date Status Influenza CVX: 141 01/18/2018 completed Influenza CVX: 141 03/15/2017 completed Influenza CVX: 141 03/18/2016 completed Influenza CVX: 141 02/11/2015 completed Assessments Condition Codes Effective Dates Other fatigue ICD-10: R53.83 ICD-9: 780.79 06/08/2018 Essential (primary) hypertension ICD-10: I10 ICD-9: 401.1 06/08/2018 Other allergic rhinitis ICD-10: J30.89 ICD-9: [...] Reason For Visit Effective Dates Notes fatigue 06/08/2018 fatigue 05/30/2018 fatigue 05/10/2018 fatigue [...] Item Item Code Result Date Free T4 Iqd200 FREE T4 1.07 ng/dL 04/04/2018 Tsh Ord6 TSH (3rd IS) 1.93 uIU/mL 04/04/2018 Urine Culture Ucult Preliminary NO Growth Day 1 03/28/2018 Urine Culture Ucult Complete NO Growth Day 2 03/28/2018 Urine Culture Ucult Complete >100,000 col/ml aerobic growth sent to ref lab 11/19/2017 B12 Qbl600 B12 712.00 pg/ml 09/28/2017 C-Reactive Protein Qnt Crqnt CRP 0.1 mg/dl 09/23/2017 Comp Metabolic Gcg883 NA 139 mEq/L 09/23/2017 Comp Metabolic Loy718 K 4.8 mEq/L 09/23/2017 Comp Metabolic Lun347 CL 104 mEq/L 09/23/2017 Comp Metabolic Ljg630 CO2 28.0 mEq/L 09/23/2017 Comp Metabolic Ufd271 ANION GAP 12 09/23/2017 Comp Metabolic Udy743 GLUCOSE 92 mg/dL 09/23/2017 Comp Metabolic Jsr399 Creat 0.7 mg/dL 09/23/2017 Comp Metabolic Rhx353 eGFR 91 ml/min/1.73m2 09/23/2017 Comp Metabolic Zzw487 BUN 11 mg/dL 09/23/2017 Comp Metabolic Yii316 B/C Ratio 16.4 Ratio 09/23/2017 Comp Metabolic Imq782 CALCIUM 9.0 mg/dL 09/23/2017 Comp Metabolic Vqs205 ALK PHOS 76 U/L 09/23/2017 Comp Metabolic Nbx047 AST(SGOT) 24 U/L 09/23/2017 Comp Metabolic Ofx024 ALT(SGPT) 21 U/L 09/23/2017 Comp Metabolic Esh685 BILI T 0.3 mg/dL 09/23/2017 Comp Metabolic Lbt753 ALBUMIN 4.1 g/dL 09/23/2017 Comp Metabolic Usc445 TPRO 6.2 g/dL 09/23/2017 Comp Metabolic Ady340 GLOB 2.1 g/dL 09/23/2017 Comp Metabolic Xip132 A/G Ratio 1.9 Ratio 09/23/2017 Comp Metabolic Ske184 Osmo 277 mOsmo 09/23/2017 Sed Rate Ord21 ESR 3 mm/hr 09/22/2017 Vitamin D 25 Oh Siu0052 VITAMIN D, 25 HYDROXY 78.79 ng/mL 09/22/2017 [...] 30.6 pg 09/22/2017 Cbc With Differential Ord2 [place]% 10.5 % 09/22/2017 Cbc With Differential Ord2 [...] 2.37 K/ul 09/22/2017 Cbc With Differential Ord2 [place] ABS# 0.9 K/ul 09/22/2017 Cbc With Differential Ord2 Eos ABS# 0.2 K/ul 09/22/2017 Cbc With Differential Ord2 Baso ABS# 0.0 K/ul 09/22/2017 Free T4 Gml453 FREE T4 0.99 ng/dL 09/22/2017 %Hba1C Axl631 % HbA1c 79898- 6 6.0 % 12/10/2016 %Hba1C Unv139 Gluc Ave 126 mg/dL 12/10/2016 Tsh Ord6 hTSH II 0.89 uIU/mL 12/09/2016 Free T4 Bkf994 FREE T4 0.99 ng/dL 12/09/2016 Comp Metabolic Biq604 NA 138 mEq/L 12/09/2016 Comp Metabolic Std822 K 5.2 mEq/L 12/09/2016 Comp Metabolic Xar536 CL 104 mEq/L 12/09/2016 Comp Metabolic Tjs317 CO2 29.0 mEq/L 12/09/2016 Comp Metabolic Aun118 ANION GAP 10 12/09/2016 Comp Metabolic Lph351 GLUCOSE 135 mg/dL 12/09/2016 Comp Metabolic Mbx125 Creat 0.8 mg/dL 12/09/2016 Comp Metabolic Buv466 eGFR 79 ml/min/1.73m2 12/09/2016 Comp Metabolic Dmj544 BUN 18 mg/dL 12/09/2016 Comp Metabolic Pan428 B/C Ratio 23.7 Ratio 12/09/2016 Comp Metabolic Lgi548 CALCIUM 9.5 mg/dL 12/09/2016 Comp Metabolic Jhh107 ALK PHOS 73 U/L 12/09/2016 Comp Metabolic Olr387 AST(SGOT) 24 U/L 12/09/2016 Comp Metabolic Jea021 ALT(SGPT) 20 U/L 12/09/2016 Comp Metabolic Lfe798 BILI T 0.3 mg/dL 12/09/2016 Comp Metabolic Vbi747 ALBUMIN 4.3 g/dL 12/09/2016 Comp Metabolic Tps857 TPRO 6.4 g/dL 12/09/2016 Comp Metabolic Kol047 GLOB 2.1 g/dL 12/09/2016 Comp Metabolic Vtb872 A/G Ratio 2.0 Ratio 12/09/2016 Comp Metabolic Pob972 Osmo 280 mOsmo 12/09/2016 Cbc With Differential [...] 31.3 pg 12/09/2016 Cbc With Differential Ord2 [place]% 6.5 % 12/09/2016 Cbc With Differential Ord2 [...] 1.84 K/ul 12/09/2016 Cbc With Differential Ord2 [place] ABS# 0.6 K/ul 12/09/2016 Cbc With Differential Ord2 Eos ABS# 0.1 K/ul 12/09/2016 Cbc With Differential Ord2 Baso ABS# 0.1 K/ul 12/09/2016 Tsh Ord6 hTSH II 1.19 uIU/mL 09/02/2016 Free T4 Xzf704 FREE T4 0.97 ng/dL 09/02/2016 Comp Metabolic Crc581 NA 137 mEq/L 06/01/2016 Comp Metabolic Axl909 K 4.1 mEq/L 06/01/2016 Comp Metabolic Tye474 CL 104 mEq/L 06/01/2016 Comp Metabolic Yfd618 CO2 25.0 mEq/L 06/01/2016 Comp Metabolic Sqk982 ANION GAP 12 06/01/2016 Comp Metabolic Ouz257 GLUCOSE 108 mg/dL 06/01/2016 Comp Metabolic Iea831 Creat 0.8 mg/dL 06/01/2016 Comp Metabolic Hsk343 eGFR 80 ml/min/1.73m2 06/01/2016 Comp Metabolic Ujx413 BUN 15 mg/dL 06/01/2016 Comp Metabolic Krw026 B/C Ratio 20.0 Ratio 06/01/2016 Comp Metabolic Mgh893 CALCIUM 9.1 mg/dL 06/01/2016 Comp Metabolic Idr094 ALK PHOS 89 U/L 06/01/2016 Comp Metabolic Byt146 AST(SGOT) 25 U/L 06/01/2016 Comp Metabolic Jac835 ALT(SGPT) 20 U/L 06/01/2016 Comp Metabolic Qjq370 BILI T 0.3 mg/dL 06/01/2016 Comp Metabolic Ahl882 ALBUMIN 4.2 g/dL 06/01/2016 Comp Metabolic Qee317 TPRO 6.2 g/dL 06/01/2016 Comp Metabolic Dhu984 GLOB 2.0 g/dL 06/01/2016 Comp Metabolic Ihw944 A/G Ratio 2.1 Ratio 06/01/2016 Comp Metabolic Nsw213 Osmo 275 mOsmo 06/01/2016 Free T4 Hyj159 FREE T4 0.94 ng/dL 06/01/2016 Tsh Ord6 [...] 31.1 pg 06/01/2016 Cbc With Differential Ord2 [place]% 8.4 % 06/01/2016 Cbc With Differential Ord2 [...] 2.96 K/ul 06/01/2016 Cbc With Differential Ord2 [place] ABS# 0.6 K/ul 06/01/2016 Cbc With Differential [...] 31.3 pg 02/27/2016 Cbc With Differential Ord2 [place]% 10.0 % 02/27/2016 Cbc With Differential Ord2 [...] 2.28 K/ul 02/27/2016 Cbc With Differential Ord2 [place] ABS# 0.9 K/ul 02/27/2016 Cbc With Differential Ord2 Eos ABS# 0.3 K/ul 02/27/2016 Cbc With Differential Ord2 Baso ABS# 0.1 K/ul 02/27/2016 Tsh Ord6 hTSH II 0.18 uIU/mL 02/27/2016 Free T4 Rzs253 FREE T4 1.17 ng/dL 02/27/2016 Comp Metabolic Tcs548 NA 135 mEq/L 02/27/2016 Comp Metabolic Umd289 K 5.2 mEq/L 02/27/2016 Comp Metabolic Feo284 CL 102 mEq/L 02/27/2016 Comp Metabolic Alf566 CO2 27.0 mEq/L 02/27/2016 Comp Metabolic Jdj095 ANION GAP 11 02/27/2016 Comp Metabolic Ptz401 GLUCOSE 93 mg/dL 02/27/2016 Comp Metabolic Sas352 Creat 0.7 mg/dL 02/27/2016 Comp Metabolic Kbk715 eGFR 91 ml/min/1.73m2 02/27/2016 Comp Metabolic Dny350 BUN 14 mg/dL 02/27/2016 Comp Metabolic Ujb473 B/C Ratio 20.9 Ratio 02/27/2016 Comp Metabolic Tvc795 CALCIUM 9.4 mg/dL 02/27/2016 Comp Metabolic Ztm015 ALK PHOS 100 U/L 02/27/2016 Comp Metabolic Enq961 AST(SGOT) 23 U/L 02/27/2016 Comp Metabolic Bpl443 ALT(SGPT) 24 U/L 02/27/2016 Comp Metabolic Ivf254 BILI T 0.2 mg/dL 02/27/2016 Comp Metabolic Fys460 ALBUMIN 4.3 g/dL 02/27/2016 Comp Metabolic Liz427 TPRO 6.3 g/dL 02/27/2016 Comp Metabolic Fid260 GLOB 2.1 g/dL 02/27/2016 Comp Metabolic Gjh218 A/G Ratio 2.1 Ratio 02/27/2016 Comp Metabolic Nro661 Osmo 270 mOsmo 02/27/2016 Free T4 Rox692 FREE T4 1.03 ng/dL 05/10/2015 Comp Metabolic Hwn509 NA 137 mEq/L 05/10/2015 Comp Metabolic Nbj114 K 4.4 mEq/L 05/10/2015 Comp Metabolic Yyq257 CL 102 mEq/L 05/10/2015 Comp Metabolic Gjv253 CO2 28.0 mEq/L 05/10/2015 Comp Metabolic Nnj976 ANION GAP 11 05/10/2015 Comp Metabolic Xee351 GLUCOSE 108 mg/dL 05/10/2015 Comp Metabolic Ksx534 Creat 0.7 mg/dL 05/10/2015 Comp Metabolic Fdy525 eGFR 86 ml/min/1.73m2 05/10/2015 Comp Metabolic Wjs048 BUN 13 mg/dL 05/10/2015 Comp Metabolic Hkz400 B/C Ratio 18.3 Ratio 05/10/2015 Comp Metabolic Ngc101 CALCIUM 9.4 mg/dL 05/10/2015 Comp Metabolic Tox562 ALK PHOS 94 U/L 05/10/2015 Comp Metabolic Cfz471 AST(SGOT) 22 U/L 05/10/2015 Comp Metabolic Iae798 ALT(SGPT) 21 U/L 05/10/2015 Comp Metabolic Lej570 BILI T 0.3 mg/dL 05/10/2015 Comp Metabolic Wwy133 ALBUMIN 3.9 g/dL 05/10/2015 Comp Metabolic Llt207 TPRO 6.1 g/dL 05/10/2015 Comp Metabolic Fri014 GLOB 2.2 g/dL 05/10/2015 Comp Metabolic Gnk072 A/G Ratio 1.7 Ratio 05/10/2015 Comp Metabolic Gob698 Osmo 274 mOsmo 05/10/2015 Tsh Ord6 hTSH [...] 29.4 pg 05/10/2015 Cbc With Differential Ord2 [place]% 9.0 % 05/10/2015 Cbc With Differential Ord2 [...] 2.14 K/ul 05/10/2015 Cbc With Differential Ord2 [place] ABS# 0.5 K/ul 05/10/2015 Cbc With Differential [...] Ord30 C/HDL 3.8 Ratio 05/10/2015 Culture Urine [id number] URINE CULTURE SEE NOTES 02/25/2015 Culture Urine [id number] Continued Results 02/25/2015 Urine Culture Ucult Complete >100,000 col/ml aerobic growth sent to ref lab 02/22/2015 Free T4 Fjv526 FREE T4 1.16 ng/dL 02/11/2015 Tsh Ord6 hTSH II 0.51 uIU/mL 02/11/2015 Review of Systems System Result Effective Dates Constitutional No recent illness 06/08/2018 Constitutional No [...] lips 07/06/2016 None Full Exam - General 1995 [...] Procedure Codes Date THER/PROPH/DIAG INJ SC/IM CPT-4: 53488 04/08/2018 ROCEPHIN, PER 250 MG CPT- 4: J0696 04/08/2018 THER/PROPH/DIAG INJ SC/IM CPT-4: 43327 04/07/2018 ROCEPHIN, PER 250 MG CPT- 4: J0696 04/07/2018 THER/PROPH/DIAG INJ SC/IM CPT-4: 27503 04/06/2018 ROCEPHIN, PER 250 MG CPT- 4: J0696 04/06/2018 THER/PROPH/DIAG INJ SC/IM CPT-4: 51898 04/05/2018 ROCEPHIN, PER 250 MG CPT- 4: J0696 04/05/2018 KETOROLAC TROMETHAMINE INJ CPT-4: J1885 04/05/2018 THER/PROPH/DIAG INJ SC/IM CPT-4: 08723 04/04/2018 ROCEPHIN, PER 250 MG CPT- 4: J0696 04/04/2018 KETOROLAC TROMETHAMINE INJ CPT-4: J1885 04/04/2018 URINALYSIS NONAUTO W/O SCOPE CPT-4: 75983 03/24/2018 PPPS, SUBSEQ VISIT CPT- 4: G0439 12/24/2017 THER/PROPH/DIAG INJ SC/IM CPT-4: 51751 12/24/2017 TRIAMCINOLONE ACET INJ NOS CPT-4: J3301 12/24/2017 THER/PROPH/DIAG INJ SC/IM CPT-4: 76963 11/18/2017 ROCEPHIN, PER 250 MG CPT- 4: J0696 11/18/2017 PRESCRIP TRANSMIT VIA ERX SY CPT-4: G8553 04/01/2017 TRIAMCINOLONE ACET INJ NOS CPT-4: J3301 03/25/2017 PPPS, SUBSEQ VISIT CPT- 4: G0439 12/23/2016 THER/PROPH/DIAG INJ SC/IM CPT-4: 62782 12/08/2016 TRIAMCINOLONE ACET INJ NOS CPT-4: J3301 12/08/2016 PRESCRIP TRANSMIT VIA ERX SY CPT-4: G8553 12/08/2016 PRESCRIP TRANSMIT VIA ERX SY CPT-4: G8553 11/30/2016 URINALYSIS NONAUTO W/O SCOPE CPT-4: 71828 07/08/2016 PRESCRIP TRANSMIT VIA ERX SY CPT-4: G8553 06/01/2016 PRESCRIP TRANSMIT VIA ERX SY CPT-4: G8553 02/27/2016 THER/PROPH/DIAG INJ SC/IM CPT-4: 97485 03/01/2015 ROCEPHIN, PER 250 MG CPT- 4: J0696 03/01/2015 THER/PROPH/DIAG INJ SC/IM CPT-4: 77308 02/28/2015 ROCEPHIN, PER 250 MG CPT- 4: J0696 02/28/2015 THER/PROPH/DIAG INJ SC/IM CPT-4: 33172 02/27/2015 ROCEPHIN, PER 250 MG CPT- 4: J0696 02/27/2015 THER/PROPH/DIAG INJ SC/IM CPT-4: 33293 02/26/2015 ROCEPHIN, PER 250 MG CPT- 4: J0696 02/26/2015 THER/PROPH/DIAG INJ SC/IM CPT-4: 75649 02/25/2015 ROCEPHIN, PER 250 MG CPT- 4: J0696 02/25/2015 URINALYSIS NONAUTO W/O SCOPE CPT-4: 14386 02/21/2015 Vital Signs Date Vital 06/08/2018 Blood Pressure 1: 132/76 Code: 8480-6 BMI: 28.0 Code: 56121-3 Heart Rate 1: 70 bpm Height: 5'3" SpO2: 98% Weight: 158 lbs 05/30/2018 Blood Pressure 1: 136/72 Code: 8480-6 BMI: 28.0 Code: 42376-7 Heart Rate 1: 84 bpm Height: 5'3" Weight: 158 lbs 05/10/2018 Blood Pressure 1: 130/72 Code: 8480-6 BMI: 28.2 Code: 15664-4 Heart Rate 1: 70 bpm Height: 5'3" [...] 1: 134/58 Code: 8480-6 BMI: 27.8 Code: 69056-3 Heart Rate 1: 85 bpm Height: 5'3" SpO2: 96% Weight: 157 lbs 03/24/2018 Blood Pressure 1: 128/82 Code: 8480-6 BMI: 27.8 Code: 63553-2 Heart Rate 1: 84 bpm Height: 5'3" SpO2: 97% Weight: 157 lbs 03/01/2018 Blood Pressure 1: 136/70 Code: 8480-6 BMI: 27.8 Code: 91081-9 Heart Rate 1: 70 bpm Height: 5'3" SpO2: 96% Weight: 157 lbs 12/24/2017 Height: Weight: 11/18/2017 Blood Pressure 1: 164/74 Code: 8480-6 BMI: 27.6 Code: 35584-5 Heart Rate 1: 70 bpm Height: 5'3" SpO2: 96% Weight: 156 lbs 11/03/2017 Blood Pressure 1: 118/72 Code: 8480-6 BMI: 27.6 Code: 98853-0 Heart Rate 1: 82 bpm Height: 5'3" SpO2: 96% Weight: 156 lbs 09/22/2017 Blood Pressure 1: 136/68 Code: 8480-6 BMI: 27.6 Code: 34631-2 Heart Rate 1: 70 bpm Height: 5'3" SpO2: 97% Weight: 156 lbs 04/01/2017 Blood Pressure 1: 144/82 Code: 8480-6 Heart Rate 1: 68 bpm Height: 5'3" SpO2: 97% Weight: 03/25/2017 Blood Pressure 1: 116/70 Code: 8480-6 BMI: 26.7 Code: 55290-1 Heart Rate 1: 67 bpm Height: 5'3" SpO2: 98% Weight: 151 lbs 12/23/2016 BMI: 26.7 Code: 25149-8 Height: 5'3" Weight: 151 lbs 12/22/2016 Blood Pressure 1: 142/60 Code: 8480-6 BMI: 26.7 Code: 97026-2 Heart Rate 1: 67 bpm Height: 5'3" SpO2: 98% Weight: 151 lbs 12/08/2016 Blood Pressure 1: 140/72 Code: 8480-6 Heart Rate 1: 72 bpm Height: 5'3" SpO2: 97% Weight: 11/30/2016 Blood Pressure 1: 128/80 Code: 8480-6 BMI: 26.7 Code: 46172-5 Heart Rate 1: 63 bpm Height: 5'3" SpO2: 96% Weight: 151 lbs 09/28/2016 Blood Pressure 1: 130/80 Code: 8480-6 BMI: 27.1 Code: 20381-5 Heart Rate 1: 80 bpm Height: 5'3" SpO2: 97% Weight: 153 lbs 07/06/2016 Blood Pressure 1: 162/72 Code: 8480-6 BMI: 27.6 Code: 06059-3 Heart Rate 1: 72 bpm Height: 5'3" SpO2: 98% Weight: 156 lbs 06/01/2016 Blood Pressure 1: 122/66 Code: 8480-6 BMI: 27.5 Code: 88922-2 Heart Rate 1: 73 bpm Height: 5'3" SpO2: 98% Weight: 155 lbs 8 oz 02/27/2016 Blood Pressure 1: 126/68 Code: 8480-6 BMI: 26.9 Code: 24144-4 Heart Rate 1: 70 bpm Height: 5'3" SpO2: 98% Weight: 152 lbs 09/10/2015 Blood Pressure 1: 130/70 Code: 8480-6 BMI: 26.9 Code: 48227-9 Heart Rate 1: 72 bpm Height: 5'3" SpO2: 97% Weight: 152 lbs 05/14/2015 Blood Pressure 1: 138/82 Code: 8480-6 BMI: 26.4 Code: 77701-5 Heart Rate 1: 75 bpm Height: 5'3" SpO2: 98% Weight: 149 lbs 02/11/2015 Blood Pressure 1: 128/72 Code: 8480-6 BMI: 25.5 Code: 99453-5 Heart Rate 1: 73 bpm Height: 5'3" SpO2: 94% Weight: 144 lbs Functional Status No Functional Status data History of Present Illness Symptom Name Status Result Effective Date Notes Limitation on Activities moderately limits activities 06/08/2018 [...] data Encounters Encounter Performer Location Codes Date 04537 EST. PATIENT, LEVEL III Diagnosis: Other fatigue[ICD10: R53.83] Diagnosis: Essential (primary) hypertension[ICD10: I10] Bridget Cortez MD, [facility] CPT-4: 25136 06/08/2018 47058 EST. PATIENT, LEVEL IV Diagnosis: Essential (primary) hypertension[ICD10: I10] Diagnosis: Other fatigue[ICD10: R53.83] Diagnosis: Other allergic rhinitis[ICD10: J30.89] Bridget Cortez MD, [facility] CPT- 4: 72236 05/30/2018 82906 EST. PATIENT, LEVEL IV Diagnosis: Essential (primary) hypertension[ICD10: I10] Diagnosis: Other fatigue[ICD10: R53.83] Bridget Cortez MD, [facility] CPT-4: 51184 05/10/2018 86525 EST. PATIENT, LEVEL IV Diagnosis: Low back pain[ICD10: M54.5] Diagnosis: Essential (primary) hypertension[ICD10: I10] Diagnosis: Other fatigue[ICD10: R53.83] Diagnosis: Other malaise[ICD10: R53.81] Bridget Cortez MD, [facility] CPT-4: 18088 04/21/2018 87463 EST. PATIENT, LEVEL III Diagnosis: Other fatigue[ICD10: R53.83] Diagnosis: Otalgia, right ear[ICD10: H92.01] Bridget Cortez MD, [facility] CPT-4: 33647 04/13/2018 ([id number]) 10085 EST. PATIENT, LEVEL III Diagnosis: Essential (primary) hypertension[ICD10: I10] Diagnosis: Dysuria[ICD10: R30.0] Diagnosis: Nausea[ICD10: R11.0] Diagnosis: Headache[ICD10: R51] Elen Cortez MD, [facility] CPT-4: 68509 04/04/2018 88221 EST. PATIENT, LEVEL III Diagnosis: Other acute sinusitis[ICD10: J01.80] Diagnosis: Dizziness and giddiness[ICD10: R42] Diagnosis: Dysuria[ICD10: R30.0] Diagnosis: Candidal stomatitis[ICD10: B37.0] Diagnosis: Essential (primary) hypertension[ICD10: I10] Diagnosis: Other fatigue[ICD10: R53.83] Diagnosis: Other malaise[ICD10: R53.81] Bridget Cortez MD, [facility] CPT-4: 21847 04/01/2018 ([id number]) 96377 EST. 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 CPT-4: 76340 03/24/2018 ([id number]) 17449 EST. PATIENT, LEVEL IV Diagnosis: Otalgia, right ear[ICD10: H92.01] Diagnosis: Headache[ICD10: R51] Diagnosis: Other fatigue[ICD10: R53.83] Diagnosis: Abnormal findings on diagnostic imaging of other specified body structures[ICD10: R93.89] Elen Cortez MD, [facility] CPT-4: 40569 03/01/2018 63765 EST. PATIENT, LEVEL III Diagnosis: Acute cystitis with hematuria[ICD10: N30.01] Bridget Cortez MD, [facility] CPT-4: 96655 11/18/2017 48624 EST. PATIENT, LEVEL IV Diagnosis: Other acute sinusitis[ICD10: J01.80] Diagnosis: Otalgia, right ear[ICD10: H92.01] Bridget Cortez MD, [facility] CPT-4: 06464 11/03/2017 04847 EST. PATIENT, LEVEL III Diagnosis: Other fatigue[ICD10: R53.83] Diagnosis: Other malaise[ICD10: R53.81] Diagnosis: Pain in left knee[ICD10: M25.562] Diagnosis: Pain in right knee[ICD10: M25.561] Bridget Cortez MD, [facility] CPT-4: 97780 09/22/2017 ([id number]) 51005 EST. PATIENT, LEVEL III Diagnosis: Cough[ICD10: R05] Diagnosis: Acute bronchitis due to other specified organisms[ICD10: J20.8] Elen Cortez MD, [facility] CPT-4: 22027 04/01/2017 ([id number]) 82575 EST. PATIENT, LEVEL III Diagnosis: Otalgia, right ear[ICD10: H92.01] Diagnosis: Other allergic rhinitis[ICD10: J30.89] Shiela Cortez MD, [facility] CPT-4: 72033 03/25/2017 ([id number]) 42407 EST. PATIENT, LEVEL III Diagnosis: Benign paroxysmal vertigo, bilateral[ICD10: H81.13] Shiela Cortez MD, [facility] CPT-4: 61732 12/22/2016 ([id number]) 41082 EST. PATIENT, LEVEL IV Diagnosis: Benign paroxysmal vertigo, bilateral[ICD10: H81.13] Diagnosis: Other allergic rhinitis[ICD10: J30.89] Diagnosis: Hypothyroidism, unspecified[ICD10: E03.9] Shiela Cortez MD, [facility] CPT-4: 46043 12/08/2016 ([id number]) 95847 EST. PATIENT, LEVEL IV Diagnosis: Atrophy of thyroid (acquired)[ICD10: E03.4] Diagnosis: Essential (primary) hypertension[ICD10: I10] Diagnosis: Mixed hyperlipidemia[ICD10: E78.2] Elen Cortez MD, [facility] CPT- 4: 35329 11/30/2016 42960 EST. PATIENT, LEVEL IV Diagnosis: Headache[ICD10: R51] Diagnosis: Other fatigue[ICD10: R53.83] Diagnosis: Dizziness and giddiness[ICD10: R42] Bridget Cortez MD, [facility] CPT- 4: 24592 09/28/2016 93089 EST. PATIENT, LEVEL IV Diagnosis: Essential (primary) hypertension[ICD10: I10] Diagnosis: Headache[ICD10: R51] Bridget Cortez MD, [facility] CPT-4: 30328 07/06/2016 ([id number]) 25579 EST. PATIENT, LEVEL IV Diagnosis: Essential (primary) hypertension[ICD10: I10] Diagnosis: Atrophy of thyroid (acquired)[ICD10: E03.4] Diagnosis: Mixed hyperlipidemia[ICD10: E78.2] Elen Cortez MD, [facility] CPT- 4: 83577 06/01/2016 31968 EST. PATIENT, LEVEL IV Diagnosis: Acute laryngopharyngitis[ICD10: J06.0] Diagnosis: Other allergic rhinitis[ICD10: J30.89] Diagnosis: Other specified hypothyroidism[ICD10: E03.8] Diagnosis: Other fatigue[ICD10: R53.83] Bridget Cortez MD, [facility] CPT-4: 22546 02/27/2016 ([id number]) 18479 EST. PATIENT, LEVEL III Diagnosis: Essential (primary) hypertension[ICD10: I10] Diagnosis: Mixed hyperlipidemia[ICD10: E78.2] [facility] CPT- 4: 05657 09/10/2015 ([id number]) 82581 EST. PATIENT, LEVEL IV Diagnosis: Essential (primary) hypertension[ICD10: I10] Diagnosis: Hypothyroidism, unspecified[ICD10: E03.9] Diagnosis: Unspecified osteoarthritis, unspecified site[ICD10: M19.90] RONNA Hargrove MD CPT-4: 78933 05/14/2015 ([id number]) OFFICE VISIT, NEW - LEVEL 4 Diagnosis: Essential (primary) hypertension[ICD10: I10] Diagnosis: Hypothyroidism, unspecified[ICD10: E03.9] Diagnosis: Unspecified osteoarthritis, unspecified site[ICD10: M19.90] Elen Cortez MD, [facility] CPT-4: 42536 02/11/2015 Plan of Care Planned Activity Notes Codes Status Date Visit Plan: Ongoing fatigue - will check [...] at home. 06/08/2018 Appointment: Bridget Velazco WPtel: [address] [place], [place] [address] (15 min) Moderate 06/08/2018 Patient Education: Patient [...] spray. 05/30/2018 Appointment: Bridget Velazco WPtel: [phone] [facility] (15 min) Moderate 05/30/2018 Patient Education: Patient [...] or concerns. 05/10/2018 Appointment: Bridget Velazco WPtel: [phone] [facility] (15 min) Moderate 05/10/2018 Patient Education: Patient Medication Summary Completed 05/10/2018 Appointment: Elen Cortez WPtel: [phone] [facility] (15 min) Moderate 05/05/2018 Referral: Wan Steven [...] or concerns. 04/21/2018 Appointment: Bridget Velazco WPtel: [address] [place], [place] [phone] (15 min) Moderate 04/21/2018 Patient Education: Patient Medication Summary Completed 04/21/2018 Patient Education: Back Pain Completed 04/21/2018 Appointment: Bridget Velazco WPtel: [address] [place], [place] [phone] (15 min) Moderate 04/14/2018 Care [...] Dr. Saini. 04/13/2018 Appointment: Bridget Velazco WPtel: [address] [place], [place] [phone] (30 min) Complex 04/13/2018 Patient Education: Patient Medication Summary Completed 04/13/2018 Appointment: Nurse Visit 04/08/2018 Appointment: Bridget Velazco WPtel: [address] [place], [place] [phone] (15 min) Moderate 04/08/2018 Patient Education: Patient Medication Summary Completed 04/08/2018 Appointment: Injection 04/07/2018 Patient Education: Patient Medication Summary Completed 04/07/2018 Appointment: Injection 04/06/2018 Patient Education: Patient Medication Summary Completed 04/06/2018 Appointment: Injection 04/05/2018 Appointment: Elen Cortez WPtel: [address] [place], [place] [phone] (15 min) Moderate 04/05/2018 Patient [...] today. 04/04/2018 Appointment: [phone] [place] (10 min) Simple 04/04/2018 Patient Education: Patient Medication Summary Completed 04/04/2018 Patient Education: Patient Medication Summary Completed 04/04/2018 Patient Education: Patient Medication Summary Completed 04/04/2018 Care Plan: Referral Order SNOMED-CT : [id number] Pending 04/04/2018 Visit Plan: Dysuria, dizziness, fatigue, [...] improvement. 04/01/2018 Appointment: Bridget Velazco WPtel: [phone] [facility] (15 min) Moderate 04/01/2018 Patient Education: Patient Medication Summary Completed 04/01/2018 Visit Plan: Sinusitis - Pt has acute infection - pain in face, maxillary region, Pt informed to use decongestant, RX given to patient, sinus rinses also recommended. Call if symptoms do not show improvement. Dysuria - rx for antibiotic sent to pharmacy. 03/24/2018 Appointment: [facility] Cortez [facility]el[phone] [place] (15 min) Moderate 03/24/2018 Patient Education: [...] improve. 03/01/2018 Appointment: [facility] Cortez [facility]el[phone] [facility] (15 min) Moderate 03/01/2018 Patient Education: Patient [...] [id number] [facility] - Annual Wellness Visit 12/24/2017 Patient Education: Patient Medication Summary Completed 12/24/2017 Appointment: Bridget Velazco WPtel: [address] [place], [place] [phone] (15 min) Moderate 11/30/2017 Appointment: Lab [...] improve. 11/18/2017 Appointment: Bridget Velazco WPtel: [facility]5 [facility] (15 min) Moderate 11/18/2017 Patient Education: Patient Medication Summary Completed 11/18/2017 Visit Plan: Sinusitis - Pt has acute infection - pain in face, maxillary region, Pt informed to use decongestant, RX given to patient, sinus rinses also recommended. Call if symptoms do not show improvement. 11/03/2017 Appointment: Bridget Velazco WPtel: [address] [place], [place] [phone] (15 min) Moderate 11/03/2017 [...] improve. 09/22/2017 Appointment: Bridget Velazco WPtel: [facility]2 [facility] (15 min) Moderate 09/22/2017 Patient Education: Patient Medication Summary Completed 09/22/2017 Visit Plan: Bronchitis - acute case of bronchitis identified. Pt has been given antibiotics, breathing treatments as appropriate, and pt has been instructed to call if symptoms are not improved, or if symptoms acutely worsen. 04/01/2017 Appointment: Elen Cortez WPtel: [facility]0 [address] (15 min) Moderate 04/01/2017 Patient Education: [...] spray. 03/25/2017 Appointment: Shiela Srivastava WPtel: [facility] [address] (10 min) Simple 03/25/2017 Appointment: Elen Cortez WPtel: [facility]0 [address] (15 min) Moderate 03/25/2017 Patient Education: [...] surrogate. 12/23/2016 Appointment: Bridget Velazco WPtel: [facility]0 [address] - Annual Wellness Visit 12/23/2016 Patient Education: Patient Medication Summary Completed 12/23/2016 Visit Plan: Vertigo-discussed PT for vestibular exercises-patient wants to wait since symptoms are improving-continue anti histamine as directed- meclizine as needed 12/22/2016 Appointment: Shiela Srivastava WPtel: [address] [place] [address] (30 min) Complex 12/22/2016 Patient Education: Patient [...] of control. 12/08/2016 Appointment: Shiela Srivastava WPtel: [facility]5 [phone] (30 min) Complex 12/08/2016 Patient Education: [...] WPtel: [phone] [facility] (15 min) Moderate 11/30/2016 Patient Education: Patient [...] [facility]el[phone] [place] (15 min) Moderate 07/06/2016 Patient [...] not improving 06/01/2016 Appointment: Elen Cortez WPtel: [facility] [place] (15 min) Moderate 06/01/2016 Patient Education: Patient [...] labs 02/27/2016 Appointment: Bridget Velazco WPtel: [phone] [facility] (30 min) Complex 02/27/2016 Patient Education: Patient Medication Summary Completed 02/27/2016 Patient Education: Patient Medication Summary Completed 09/27/2015 Care Plan: [facility] 75461-2 Pending 09/27/2015 Visit Plan: Hypertension - well [...] colonoscopy 09/10/2015 Appointment: Elen Cortez WPtel: [phone] [facility] (15 min) Moderate 09/10/2015 Patient [...] Sanchez. 05/14/2015 Appointment: Elen Cortez WPtel: [phone] (15 min) Moderate 05/14/2015 Patient Education: Patient Medication Summary Completed 05/14/2015 Patient Education: Hypertension Completed 05/14/2015 Care Plan: Referral Order SNOMED-CT : [id number] Ordered 05/14/2015 Patient Education: Patient Medication Summary Completed 03/01/2015 Appointment: Nurse Visit 02/28/2015 Patient Education: Patient Medication Summary Completed 02/28/2015 Patient Education: Patient Medication Summary Completed 02/27/2015 Appointment: Nurse Visit 02/26/2015 Patient Education: Patient Medication Summary Completed 02/26/2015 Appointment: Injection 02/25/2015 Patient Education: Patient Medication Summary Completed 02/25/2015 Patient Education: Patient Medication Summary Completed 02/21/2015 Care Plan: URINALYSIS NONAUTO W/O SCOPE LOINC : 61693-3 Ordered 02/21/2015 Visit Plan: Hypertension - well [...] pain symptoms. 02/11/2015 Appointment: Elen Cortez WPtel: [address] [place], [place] [address] New Patient 02/11/2015 Patient Education: Patient Medication [...]
--- NOTE | 2018-11-10 18:47 | NUR ---
REPORT TO RONY.
--- OUTSIDE RECORDS SUMMARY | 2018-11-10 18:47 | XMS REPORT | CCD ---
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 Role Phone PP Unavailable CCM Unavailable Summary Purpose Interface Exchange Insurance Providers Payer name Policy type / Coverage type Covered constitution party ID Effective Begin Date Effective End Date WPS Medicare Part B Medicare Part B [id number] Unknown [employer] Medicare Part B [id number] Unknown Family history Mother Diagnosis Age At [...] spouses - 02/11/[address]: 231942183 Never smoker 02/11/2015 Alcohol history Unknown occasionally drinks alcohol 02/11/2015 Allergies, Adverse Reactions, Alerts Substance Reaction Codes Entered Date Inactivated Date Status CODEINE RxNorm: 2670 02/11/2015 No Inactive Date Active allergy Unknown 12/23/2016 No Inactive Date Active ciprofloxacin rash, RxNorm: 62955 02/26/2015 No Inactive Date Active hydrocodone Unknown 02/11/2015 No Inactive Date Active PREDNISONE RxNorm: 8640 03/29/2018 No Inactive Date Active GABAPENTIN Unknown 12/23/2016 No Inactive Date Active SULFA (SULFONAMIDES) Unknown 02/11/2015 No Inactive Date Active Past Medical History Illness Codes Condition Status Onset Date Resolved Date Essential (primary) hypertension ICD-9: 401.1 ICD-10: I10 Active 04/01/2018 Unknown Other allergic rhinitis ICD-9: 477.8 ICD-10: J30.89 Active 02/26/2016 Unknown Other fatigue ICD-9: 780.79 ICD-10: R53.83 Active 02/26/2016 Unknown Low back pain ICD-9: [...] ICD-9: 401.1 ICD-10: I10 04/01/2018 Active Other allergic rhinitis ICD-9: 477.8 ICD-10: J30.89 02/26/2016 Active Other fatigue ICD-9: 780.79 ICD-10: R53.83 02/26/2016 Active Low back pain ICD-9: 724.2 [...] Fill Instructions levocetirizine 5 mg tablet RxNorm: 151017 1 Tablet(s) PO daily 05/30/2018 08/27/2018 Active nystatin 100,000 unit/gram topical cream RxNorm: 211748 1 Gram(s) TOP TID as needed 05/30/2018 No Stop Date Active metoprolol succinate ER 50 mg tablet,extended release 24 hr RxNorm: 720642 1 Tablet(s) daily may take 1 extra tab daily if systolic bp elevated 05/03/2018 11/28/2018 Active metoprolol succinate ER 50 mg tablet,extended release 24 hr RxNorm: 728419 Tablet(s) Tablet(s) TAKE 1 TABLET BY MOUTH DAILY 05/03/2018 05/02/2018 Inactive lisinopril 20 mg tablet RxNorm: 346972 TAKE 1 TABLET BY MOUTH TWICE DAILY 04/22/2018 09/18/2018 Active Generic For:*PRINIVIL 20 MG TABLET 04/22/2018 9:57:59 AM levocetirizine 5 mg tablet RxNorm: 309948 1 Tablet(s) PO daily 04/22/2018 04/21/2018 Inactive Singulair 10 mg tablet RxNorm: 778574 1 Tablet(s) PO QHS 04/22/2018 04/21/2018 Inactive Singulair 10 mg tablet RxNorm: 243116 1 Tablet(s) PO QHS 04/22/2018 05/12/2018 Inactive levocetirizine 5 mg tablet RxNorm: 879793 1 Tablet(s) PO daily 04/22/2018 05/21/2018 Inactive ceftriaxone 500 mg solution for injection RxNorm: 4695982 Inj 04/08/2018 04/08/2018 Inactive ceftriaxone 500 mg solution for injection RxNorm: 8583259 Inj 04/07/2018 04/07/2018 Inactive ceftriaxone 500 mg solution for injection RxNorm: 1233059 Inj 04/06/2018 04/06/2018 Inactive ketorolac 60 mg/2 mL intramuscular solution RxNorm: 8136867 Milliliter(s) IM 04/05/2018 04/05/2018 Inactive ceftriaxone 500 mg solution for injection RxNorm: 1381178 Inj 04/05/2018 04/05/2018 Inactive ondansetron 4 mg disintegrating tablet RxNorm: 365571 1 Tablet(s) PO TID as needed nausea 04/04/2018 No Stop Date Active ketorolac 30 mg/mL injection solution RxNorm: 177043 2 Milliliter(s) Inj 04/04/2018 04/04/2018 Inactive ceftriaxone 500 mg solution for injection RxNorm: 9064717 Inj 04/04/2018 04/04/2018 Inactive nystatin 100,000 unit/mL oral suspension RxNorm: 106459 4 Milliliter(s) PO QID 04/01/2018 04/05/2018 Inactive doxycycline hyclate 100 mg tablet RxNorm: 7045388 1 Tablet(s) PO BID 04/01/2018 04/10/2018 Inactive amoxicillin 500 mg capsule RxNorm: 769142 1 Capsule(s) PO TID 03/24/2018 04/02/2018 Inactive prednisone 10 mg tablet RxNorm: 232357 1 Tablet(s) PO UD 6 pills on day 1 and 2 and then decrease by one pill every other day until prescription is done 03/24/2018 05/12/2018 Inactive metoprolol succinate ER 50 mg tablet,extended release 24 hr RxNorm: 995398 Tablet(s) TAKE 1 TABLET BY MOUTH DAILY 03/21/2018 05/02/2018 Inactive PLEASE SEND REFILL REQUESTS ELECTRONICALLY!! Synthroid 88 mcg tablet RxNorm: 112409 TAKE 1 TABLET BY MOUTH DAILY 03/08/2018 08/04/2018 Active 03/07/2018 11:21:21 AM pravastatin 80 mg tablet RxNorm: 535076 Tablet(s) 1 Tablet(s) PO daily 03/01/2018 02/23/2019 Active Kenalog 40 mg/mL suspension for injection RxNorm: 5529278 Milliliter(s) Inj 12/24/2017 12/24/2017 Inactive cetirizine 10 mg tablet RxNorm: 2102751 TAKE 1 TABLET BY MOUTH DAILY 12/21/2017 04/19/2018 Inactive Generic For:*ZYRTEC 10 MG TABLET 12/21/2017 10:08:05 AM Synthroid 88 mcg tablet RxNorm: 308573 TAKE 1 TABLET BY MOUTH DAILY 12/07/2017 03/06/2018 Inactive 12/06/2017 11:46:49 AM Lipitor 80 mg tablet RxNorm: 032635 1 Tablet(s) PO daily 11/29/2017 02/28/2018 Inactive pravastatin 80 mg tablet RxNorm: 932078 1 Tablet(s) PO daily 11/29/2017 11/29/2017 Inactive Lipitor 80 mg tablet RxNorm: 383491 1 Tablet(s) PO daily 11/29/2017 11/28/2017 Inactive lisinopril 20 mg tablet RxNorm: 989428 TAKE 1 TABLET BY MOUTH TWICE DAILY 11/23/2017 04/21/2018 Inactive Generic For:*PRINIVIL 20 MG TABLET 11/23/2017 11:29:44 AM Macrobid 100 mg capsule RxNorm: 821136 1 Capsule(s) PO BID 11/19/2017 11/25/2017 Inactive Macrobid 100 mg capsule RxNorm: 652334 1 Capsule(s) PO BID 11/19/2017 11/18/2017 Inactive Lomotil 2.5 mg-0.025 mg tablet RxNorm: 1545150 1 -2 Tablet(s) PO TID as needed 11/19/2017 11/25/2017 Inactive Lomotil 2.5 mg-0.025 mg tablet RxNorm: 9045795 1 -2 Tablet(s) PO TID as needed 11/19/2017 11/18/2017 Inactive Pyridium 200 mg tablet RxNorm: 4466691 1 Tablet(s) PO TID as needed 11/18/2017 11/22/2017 Inactive Augmentin 500 mg-125 mg tablet RxNorm: 308171 1 Tablet(s) PO TID 11/18/2017 11/27/2017 Inactive Keflex 500 mg capsule RxNorm: 372280 1 Capsule(s) PO TID 11/03/2017 11/09/2017 Inactive Denavir 1 % topical cream RxNorm: 712192 1 TOP TID as needed cold sores 11/01/2017 01/29/2018 Inactive Denavir 1 % topical cream RxNorm: 527004 1 TOP TID as needed cold sores 11/01/2017 10/31/2017 Inactive Synthroid 88 mcg tablet RxNorm: 893326 TAKE 1 TABLET BY MOUTH DAILY 09/29/2017 11/27/2017 Inactive 09/29/2017 12:58:07 PM pravastatin 80 mg tablet RxNorm: 794875 1 Tablet(s) PO daily 08/31/2017 08/30/2017 Inactive pravastatin 80 mg tablet RxNorm: 623095 1 Tablet(s) PO daily 08/31/2017 11/28/2017 Inactive Synthroid 88 mcg tablet RxNorm: 892498 TAKE 1 TABLET BY MOUTH DAILY 08/30/2017 09/28/2017 Inactive 08/30/2017 10:53:26 AM metoprolol succinate ER 50 mg tablet,extended release 24 hr RxNorm: 528535 Tablet(s) TAKE 1 TABLET BY MOUTH DAILY 08/17/2017 03/14/2018 Inactive PLEASE SEND REFILL REQUESTS ELECTRONICALLY!! lisinopril 20 mg tablet RxNorm: 967643 TAKE 1 TABLET BY MOUTH TWICE DAILY 06/18/2017 11/14/2017 Inactive Generic For:*PRINIVIL 20 MG TABLET 06/18/2017 1:31:00 PM Synthroid 88 mcg tablet RxNorm: 981212 TAKE 1 TABLET BY MOUTH DAILY 05/24/2017 08/21/2017 Inactive 05/24/2017 2:13:21 PM cetirizine 10 mg tablet RxNorm: 3693090 1 Tablet(s) PO daily 05/17/2017 12/12/2017 Inactive Zithromax Z-Russell 250 mg capsule RxNorm: 399274 1 Capsule(s) PO 04/02/2017 04/05/2017 Inactive Zithromax Z-Russell 250 mg tablet RxNorm: 741246 1 Tablet(s) PO 04/02/2017 04/01/2017 Inactive Zithromax Z-Russell 250 mg capsule RxNorm: 619711 1 Capsule(s) PO 04/02/2017 04/01/2017 Inactive Zithromax Z-Russell 250 mg tablet RxNorm: 945158 1 Tablet(s) PO 04/02/2017 04/06/2017 Inactive Ventolin HFA 90 mcg/actuation aerosol inhaler RxNorm: 370751 2 INH QID as needed - for the first 3 days inhale at least two puffs three times daily, then use as needed for shortness of breath 04/01/2017 04/30/2017 Inactive Keflex 500 mg capsule RxNorm: 259554 1 Capsule(s) PO TID 04/01/2017 04/01/2017 Inactive meclizine 25 mg tablet RxNorm: 014422 Tablet(s) 1 Tablet(s) PO Q6 PRN 03/25/2017 03/24/2017 Inactive dizziness Kenalog 40 mg/mL suspension for injection RxNorm: 4046279 1 Milliliter(s) Inj 03/25/2017 03/25/2017 Inactive meclizine 25 mg tablet RxNorm: 632250 1 Tablet(s) PO Q6 PRN 1 Tablet(s) PO Q6 PRN 03/25/2017 05/12/2018 Inactive dizziness meclizine 25 mg tablet RxNorm: 399192 1 Tablet(s) PO Q6 PRN 02/15/2017 03/24/2017 Inactive dizziness lisinopril 20 mg tablet RxNorm: 237432 1 Tablet(s) PO BID 01/15/2017 06/13/2017 Inactive metoprolol succinate ER 50 mg tablet,extended release 24 hr RxNorm: 880265 TAKE 1 TABLET BY MOUTH DAILY 01/07/2017 08/04/2017 Inactive Generic For:TOPROL XL 50MG TAB 01/07/2017 12:38:23 PM Synthroid 88 mcg tablet RxNorm: 801225 TAKE 1 TABLET BY MOUTH DAILY 12/25/2016 05/23/2017 Inactive 12/25/2016 9:47:08 AM Zithromax Z-Russell 250 mg tablet RxNorm: 012832 Tablet(s) PO UD 12/23/2016 03/24/2017 Inactive meclizine 25 mg tablet RxNorm: 826705 1 Tablet(s) PO Q6 PRN 12/08/2016 12/20/2016 Inactive dizziness Kenalog 40 mg/mL suspension for injection RxNorm: 2604823 Milliliter(s) Inj 12/08/2016 12/08/2016 Inactive meloxicam 15 mg tablet RxNorm: 441074 1 Tablet(s) PO daily 11/30/2016 12/20/2016 Inactive cetirizine 10 mg tablet RxNorm: 0770011 1 Tablet(s) PO daily 10/23/2016 05/16/2017 Inactive pravastatin 40 mg tablet RxNorm: 966211 1 Tablet(s) PO BID 08/20/2016 08/30/2017 Inactive Cancel 80 mg tab lisinopril 20 mg tablet RxNorm: 154787 1 Tablet(s) PO BID 08/12/2016 12/22/2016 Inactive Synthroid 88 mcg tablet RxNorm: 000790 1 Tablet(s) PO TAKE ONE (1) TABLET BY MOUTH DAILY 07/28/2016 12/24/2016 Inactive decrease dose hydralazine 25 mg tablet RxNorm: 437392 1 Tablet(s) PO TID as needed for Systolic blood pressure over 170 07/06/2016 12/20/2016 Inactive lisinopril 20 mg tablet RxNorm: 065238 1 Tablet(s) PO BID to replace your other lisinopril dose 07/06/2016 08/04/2016 Inactive lisinopril 10 mg tablet RxNorm: 565935 TAKE ONE TABLET BY MOUTH TWICE DAILY 06/10/2016 08/11/2016 Inactive Generic For:ZESTRIL 10 MG TABLET 06/09/2016 12:58:50 PM triamcinolone acetonide 0.1 % topical cream RxNorm: 0589637 1 Application TOP TID as needed 06/01/2016 No Stop Date Active nystatin 100,000 unit/gram topical cream RxNorm: 760615 1 Gram(s) TOP TID as needed 06/01/2016 05/29/2018 Inactive metoprolol succinate ER 50 mg tablet,extended release 24 hr RxNorm: 086352 1 Tablet(s) PO daily 05/26/2016 12/21/2016 Inactive cetirizine 10 mg tablet RxNorm: 0206237 1 Tablet(s) PO daily 03/23/2016 10/18/2016 Inactive Synthroid 88 mcg tablet RxNorm: 055280 1 Tablet(s) PO TAKE ONE (1) TABLET BY MOUTH DAILY 03/06/2016 03/07/2018 Inactive Brand name only! Synthroid 88 mcg tablet RxNorm: 727633 1 Tablet(s) PO TAKE ONE (1) TABLET BY MOUTH DAILY 03/04/2016 03/05/2016 Inactive decrease dose cetirizine 10 mg tablet RxNorm: 5436532 1 Tablet(s) PO daily 02/27/2016 03/22/2016 Inactive amoxicillin 500 mg capsule RxNorm: 983833 1 Capsule(s) PO TID 02/27/2016 03/04/2016 Inactive lisinopril 10 mg tablet RxNorm: 873316 TAKE ONE TABLET BY MOUTH TWICE DAILY 02/06/2016 06/04/2016 Inactive Generic For:ZESTRIL 10 MG TABLET 02/06/2016 12:16:38 PM Synthroid 100 mcg tablet RxNorm: 555847 TAKE ONE (1) TABLET BY MOUTH DAILY 01/03/2016 03/03/2016 Inactive 01/03/2016 10:35:14 AM N O T I C E Last quantity doesn't match original quantity lisinopril 10 mg tablet RxNorm: 901365 1 Tablet(s) PO BID 10/04/2015 01/31/2016 Inactive Synthroid 100 mcg tablet RxNorm: 363226 1 Tablet(s) PO daily 10/04/2015 01/02/2016 Inactive metoprolol succinate ER 50 mg tablet,extended release 24 hr RxNorm: 694449 1 Tablet(s) PO daily 10/04/2015 04/30/2016 Inactive Tylenol Arthritis 650 mg tablet,extended release RxNorm: 8467556 2 Tablet(s) PO TID 09/10/2015 No Stop Date Active metoprolol succinate ER 50 mg tablet,extended release 24 hr RxNorm: 756584 1 Tablet(s) PO daily 09/05/2015 10/03/2015 Inactive pravastatin 80 mg tablet RxNorm: 866857 1 Tablet(s) PO QHS 08/30/2015 08/30/2015 Inactive pravastatin 40 mg tablet RxNorm: 786877 1 Tablet(s) PO BID 08/30/2015 08/29/2015 Inactive Cancel 80 mg tab pravastatin 40 mg tablet RxNorm: 276915 1 Tablet(s) PO BID 08/30/2015 08/19/2016 Inactive Cancel 80 mg tab lisinopril 10 mg tablet RxNorm: 610366 1 Tablet(s) PO BID 06/13/2015 08/11/2016 Inactive lisinopril 10 mg tablet RxNorm: 571288 1 Tablet(s) PO BID 06/13/2015 10/03/2015 Inactive Synthroid 100 mcg tablet RxNorm: 979117 1 Tablet(s) PO daily 06/10/2015 10/03/2015 Inactive ceftriaxone 1 gram solution for injection RxNorm: 2583390 Inj 03/01/2015 03/01/2015 Inactive ceftriaxone 1 gram solution for injection RxNorm: 8123967 Inj 02/28/2015 02/28/2015 Inactive ceftriaxone 1 gram solution for injection RxNorm: 6792612 Inj 02/27/2015 02/27/2015 Inactive ceftriaxone 1 gram solution for injection RxNorm: 9810300 Inj 02/26/2015 02/26/2015 Inactive ceftriaxone 1 gram solution for injection RxNorm: 0190406 Inj 02/25/2015 02/25/2015 Inactive phenazopyridine 200 mg tablet RxNorm: 4250316 1 Tablet(s) PO Q8 02/21/2015 02/20/2015 Inactive Cipro 500 mg tablet RxNorm: 904689 1 Tablet(s) PO BID 02/21/2015 02/20/2015 Inactive phenazopyridine 200 mg tablet RxNorm: 9644555 1 Tablet(s) PO Q8 02/21/2015 02/25/2015 Inactive Cipro 500 mg tablet RxNorm: 900465 1 Tablet(s) PO BID 02/21/2015 02/27/2015 Inactive lisinopril 10 mg tablet RxNorm: 299948 1 Tablet(s) PO BID 02/14/2015 06/12/2015 Inactive metoprolol succinate ER 50 mg tablet,extended release 24 hr RxNorm: 069197 3/4 Tablet(s) PO daily 02/11/2015 09/04/2015 Inactive Voltaren 1 % topical gel RxNorm: 926212 2 Gram(s) TOP QID use this on affected joints up to four times daily. 02/11/2015 03/12/2015 Inactive Probiotic oral RxNorm: 6205 oral No Start Date Active aspirin 81 mg tablet RxNorm: 591934 1 Tablet(s) PO daily No Start Date Active Super B-Complex tablet RxNorm: 1 Tablet(s) PO No Start Date Active Super-D3+ oral RxNorm: oral No Start Date Active Prilosec OTC 20 mg tablet,delayed release RxNorm: 293871 2 Tablet(s) PO QAM No Start Date Active Flonase Allergy Relief 50 mcg/actuation nasal spray,suspension RxNorm: 9555500 1 [place] NASAL as needed No Start Date Active Move Free Ultra 40 mg-10 mg-3.3 mg tablet RxNorm: 1 Tablet(s) PO daily No Start Date Active metoprolol tartrate 50 mg tablet RxNorm: 461636 1 Tablet(s) PO daily No Start Date 02/10/2015 Inactive lisinopril 10 mg tablet RxNorm: 955751 1 Tablet(s) PO BID No Start Date 02/13/2015 Inactive pravastatin 80 mg tablet RxNorm: 035503 1 Tablet(s) PO daily No Start Date 08/29/2015 Inactive Flonase Allergy Relief 50 mcg/actuation nasal spray,suspension RxNorm: 2403988 1 [place] NASAL BID No Start Date 05/12/2018 Inactive Synthroid 100 mcg tablet RxNorm: 373895 1 Tablet(s) PO daily No Start Date 06/09/2015 Inactive lisinopril 40 mg tablet RxNorm: 431703 1 Tablet(s) PO BID No Start Date 02/28/2018 Inactive Tylenol Arthritis 650 mg tablet,extended release RxNorm: 2992215 4 Tablet(s) PO daily No Start Date 09/09/2015 Inactive Medication Administered Medication Codes Instructions Start Date Status ceftriaxone 500 mg solution for injection RxNorm: 5871908 04/08/2018 No longer Active ceftriaxone 500 mg solution for injection RxNorm: 6731796 04/07/2018 No longer Active ceftriaxone 500 mg solution for injection RxNorm: 6845363 04/06/2018 No longer Active ceftriaxone 500 mg solution for injection RxNorm: 7953571 04/05/2018 No longer Active ketorolac 60 mg/2 mL intramuscular solution RxNorm: 5342538 Milliliter 04/05/2018 No longer Active ceftriaxone 500 mg solution for injection RxNorm: 3656808 04/04/2018 No longer Active ketorolac 30 mg/mL injection solution RxNorm: 306476 2Milliliter 04/04/2018 No longer Active Kenalog 40 mg/mL suspension for injection RxNorm: 4004770 Milliliter 12/24/2017 No longer Active Kenalog 40 mg/mL suspension for injection RxNorm: 5230489 1Milliliter 03/25/2017 No longer Active Kenalog 40 mg/mL suspension for injection RxNorm: 3286343 Milliliter 12/08/2016 No longer Active ceftriaxone 1 gram solution for injection RxNorm: 0747859 03/01/2015 No longer Active ceftriaxone 1 gram solution for injection RxNorm: 2191054 02/28/2015 No longer Active ceftriaxone 1 gram solution for injection RxNorm: 1612084 02/27/2015 No longer Active ceftriaxone 1 gram solution for injection RxNorm: 5172991 02/26/2015 No longer Active ceftriaxone 1 gram solution for injection RxNorm: 8722866 02/25/2015 No longer Active Immunizations Vaccine Codes Date Status Influenza CVX: 141 01/18/2018 completed Influenza CVX: 141 03/15/2017 completed Influenza CVX: 141 03/18/2016 completed Influenza CVX: 141 02/11/2015 completed Assessments Condition Codes Effective Dates Essential (primary) hypertension ICD-10: I10 ICD-9: 401.1 05/30/2018 Other allergic rhinitis ICD-10: J30.89 ICD-9: 477.8 05/30/2018 Other fatigue ICD-10: R53.83 ICD-9: 780.79 05/30/2018 Low back pain ICD-10: M54.5 ICD-9: [...] Reason For Visit Effective Dates Notes fatigue 05/30/2018 fatigue 05/10/2018 fatigue 04/21/2018 fatigue [...] Item Item Code Result Date Free T4 Yxe192 FREE T4 1.07 ng/dL 04/04/2018 Tsh Ord6 TSH (3rd IS) 1.93 uIU/mL 04/04/2018 Urine Culture Ucult Preliminary NO Growth Day 1 03/28/2018 Urine Culture Ucult Complete NO Growth Day 2 03/28/2018 Urine Culture Ucult Complete >100,000 col/ml aerobic growth sent to ref lab 11/19/2017 B12 Mpt716 B12 712.00 pg/ml 09/28/2017 C-Reactive Protein Qnt Crqnt CRP 0.1 mg/dl 09/23/2017 Comp Metabolic Sbn249 NA 139 mEq/L 09/23/2017 Comp Metabolic Rrl845 K 4.8 mEq/L 09/23/2017 Comp Metabolic Bfn387 CL 104 mEq/L 09/23/2017 Comp Metabolic Yga049 CO2 28.0 mEq/L 09/23/2017 Comp Metabolic Zyq327 ANION GAP 12 09/23/2017 Comp Metabolic Rph815 GLUCOSE 92 mg/dL 09/23/2017 Comp Metabolic Uus906 Creat 0.7 mg/dL 09/23/2017 Comp Metabolic Sbd505 eGFR 91 ml/min/1.73m2 09/23/2017 Comp Metabolic Yjc168 BUN 11 mg/dL 09/23/2017 Comp Metabolic Yxv764 B/C Ratio 16.4 Ratio 09/23/2017 Comp Metabolic Vuj492 CALCIUM 9.0 mg/dL 09/23/2017 Comp Metabolic Zhv858 ALK PHOS 76 U/L 09/23/2017 Comp Metabolic Wkx155 AST(SGOT) 24 U/L 09/23/2017 Comp Metabolic Aax126 ALT(SGPT) 21 U/L 09/23/2017 Comp Metabolic Txo679 BILI T 0.3 mg/dL 09/23/2017 Comp Metabolic Aep510 ALBUMIN 4.1 g/dL 09/23/2017 Comp Metabolic Adv018 TPRO 6.2 g/dL 09/23/2017 Comp Metabolic Kcd181 GLOB 2.1 g/dL 09/23/2017 Comp Metabolic Yep921 A/G Ratio 1.9 Ratio 09/23/2017 Comp Metabolic Edh105 Osmo 277 mOsmo 09/23/2017 Sed Rate Ord21 ESR 3 mm/hr 09/22/2017 Vitamin D 25 Oh Tzq7170 VITAMIN D, 25 HYDROXY 78.79 ng/mL 09/22/2017 [...] 30.6 pg 09/22/2017 Cbc With Differential Ord2 Floyd% 10.5 % 09/22/2017 Cbc With Differential Ord2 [...] 2.37 K/ul 09/22/2017 Cbc With Differential Ord2 Floyd ABS# 0.9 K/ul 09/22/2017 Cbc With Differential Ord2 Eos ABS# 0.2 K/ul 09/22/2017 Cbc With Differential Ord2 Baso ABS# 0.0 K/ul 09/22/2017 Free T4 Tss008 FREE T4 0.99 ng/dL 09/22/2017 %Hba1C Xnj696 % HbA1c 78572- 6 6.0 % 12/10/2016 %Hba1C Yur389 Gluc Ave 126 mg/dL 12/10/2016 Tsh Ord6 hTSH II 0.89 uIU/mL 12/09/2016 Free T4 Gij684 FREE T4 0.99 ng/dL 12/09/2016 Comp Metabolic Bmg369 NA 138 mEq/L 12/09/2016 Comp Metabolic Eui997 K 5.2 mEq/L 12/09/2016 Comp Metabolic Hxk741 CL 104 mEq/L 12/09/2016 Comp Metabolic Cbw761 CO2 29.0 mEq/L 12/09/2016 Comp Metabolic Ild579 ANION GAP 10 12/09/2016 Comp Metabolic Jjn702 GLUCOSE 135 mg/dL 12/09/2016 Comp Metabolic Bos206 Creat 0.8 mg/dL 12/09/2016 Comp Metabolic Xsd794 eGFR 79 ml/min/1.73m2 12/09/2016 Comp Metabolic Aql874 BUN 18 mg/dL 12/09/2016 Comp Metabolic Qzd407 B/C Ratio 23.7 Ratio 12/09/2016 Comp Metabolic Roo623 CALCIUM 9.5 mg/dL 12/09/2016 Comp Metabolic Zum807 ALK PHOS 73 U/L 12/09/2016 Comp Metabolic Pbk929 AST(SGOT) 24 U/L 12/09/2016 Comp Metabolic Vxo935 ALT(SGPT) 20 U/L 12/09/2016 Comp Metabolic Oer182 BILI T 0.3 mg/dL 12/09/2016 Comp Metabolic Hfc290 ALBUMIN 4.3 g/dL 12/09/2016 Comp Metabolic Yjw037 TPRO 6.4 g/dL 12/09/2016 Comp Metabolic Cgu071 GLOB 2.1 g/dL 12/09/2016 Comp Metabolic Ruy683 A/G Ratio 2.0 Ratio 12/09/2016 Comp Metabolic Vtu719 Osmo 280 mOsmo 12/09/2016 Cbc With Differential [...] 31.3 pg 12/09/2016 Cbc With Differential Ord2 Floyd% 6.5 % 12/09/2016 Cbc With Differential Ord2 [...] 1.84 K/ul 12/09/2016 Cbc With Differential Ord2 [place] ABS# 0.6 K/ul 12/09/2016 Cbc With Differential Ord2 Eos ABS# 0.1 K/ul 12/09/2016 Cbc With Differential Ord2 Baso ABS# 0.1 K/ul 12/09/2016 Tsh Ord6 hTSH II 1.19 uIU/mL 09/02/2016 Free T4 Vze491 FREE T4 0.97 ng/dL 09/02/2016 Comp Metabolic Nsn123 NA 137 mEq/L 06/01/2016 Comp Metabolic Uzw991 K 4.1 mEq/L 06/01/2016 Comp Metabolic Vfn735 CL 104 mEq/L 06/01/2016 Comp Metabolic Bdu697 CO2 25.0 mEq/L 06/01/2016 Comp Metabolic Gox640 ANION GAP 12 06/01/2016 Comp Metabolic Opu365 GLUCOSE 108 mg/dL 06/01/2016 Comp Metabolic Edv346 Creat 0.8 mg/dL 06/01/2016 Comp Metabolic Fyz725 eGFR 80 ml/min/1.73m2 06/01/2016 Comp Metabolic Bfe378 BUN 15 mg/dL 06/01/2016 Comp Metabolic Llk276 B/C Ratio 20.0 Ratio 06/01/2016 Comp Metabolic Ach202 CALCIUM 9.1 mg/dL 06/01/2016 Comp Metabolic Ojz714 ALK PHOS 89 U/L 06/01/2016 Comp Metabolic Gsg478 AST(SGOT) 25 U/L 06/01/2016 Comp Metabolic Nbs720 ALT(SGPT) 20 U/L 06/01/2016 Comp Metabolic Jff167 BILI T 0.3 mg/dL 06/01/2016 Comp Metabolic Dhi876 ALBUMIN 4.2 g/dL 06/01/2016 Comp Metabolic Kvk635 TPRO 6.2 g/dL 06/01/2016 Comp Metabolic Dey856 GLOB 2.0 g/dL 06/01/2016 Comp Metabolic Kzs342 A/G Ratio 2.1 Ratio 06/01/2016 Comp Metabolic Ceo102 Osmo 275 mOsmo 06/01/2016 Free T4 Bhr305 FREE T4 0.94 ng/dL 06/01/2016 Tsh Ord6 [...] 31.1 pg 06/01/2016 Cbc With Differential Ord2 [place]% 8.4 % 06/01/2016 Cbc With Differential Ord2 [...] 2.96 K/ul 06/01/2016 Cbc With Differential Ord2 [place] ABS# 0.6 K/ul 06/01/2016 Cbc With Differential [...] 31.3 pg 02/27/2016 Cbc With Differential Ord2 [place]% 10.0 % 02/27/2016 Cbc With Differential Ord2 [...] 2.28 K/ul 02/27/2016 Cbc With Differential Ord2 [place] ABS# 0.9 K/ul 02/27/2016 Cbc With Differential Ord2 Eos ABS# 0.3 K/ul 02/27/2016 Cbc With Differential Ord2 Baso ABS# 0.1 K/ul 02/27/2016 Tsh Ord6 hTSH II 0.18 uIU/mL 02/27/2016 Free T4 Ldt911 FREE T4 1.17 ng/dL 02/27/2016 Comp Metabolic Abm580 NA 135 mEq/L 02/27/2016 Comp Metabolic Lfi563 K 5.2 mEq/L 02/27/2016 Comp Metabolic Fdt203 CL 102 mEq/L 02/27/2016 Comp Metabolic Pxy324 CO2 27.0 mEq/L 02/27/2016 Comp Metabolic Ljv004 ANION GAP 11 02/27/2016 Comp Metabolic Xyb184 GLUCOSE 93 mg/dL 02/27/2016 Comp Metabolic Kfq631 Creat 0.7 mg/dL 02/27/2016 Comp Metabolic Qhc748 eGFR 91 ml/min/1.73m2 02/27/2016 Comp Metabolic Qvn348 BUN 14 mg/dL 02/27/2016 Comp Metabolic Thy599 B/C Ratio 20.9 Ratio 02/27/2016 Comp Metabolic Ctl868 CALCIUM 9.4 mg/dL 02/27/2016 Comp Metabolic Hfv658 ALK PHOS 100 U/L 02/27/2016 Comp Metabolic Rft154 AST(SGOT) 23 U/L 02/27/2016 Comp Metabolic Ruv805 ALT(SGPT) 24 U/L 02/27/2016 Comp Metabolic Jox126 BILI T 0.2 mg/dL 02/27/2016 Comp Metabolic Jfj214 ALBUMIN 4.3 g/dL 02/27/2016 Comp Metabolic Ulv656 TPRO 6.3 g/dL 02/27/2016 Comp Metabolic Uio169 GLOB 2.1 g/dL 02/27/2016 Comp Metabolic Pwm282 A/G Ratio 2.1 Ratio 02/27/2016 Comp Metabolic Fxt579 Osmo 270 mOsmo 02/27/2016 Free T4 Fnl712 FREE T4 1.03 ng/dL 05/10/2015 Comp Metabolic Ekw212 NA 137 mEq/L 05/10/2015 Comp Metabolic Ivx323 K 4.4 mEq/L 05/10/2015 Comp Metabolic Car802 CL 102 mEq/L 05/10/2015 Comp Metabolic Cis980 CO2 28.0 mEq/L 05/10/2015 Comp Metabolic Apz937 ANION GAP 11 05/10/2015 Comp Metabolic Pzg640 GLUCOSE 108 mg/dL 05/10/2015 Comp Metabolic Uic606 Creat 0.7 mg/dL 05/10/2015 Comp Metabolic Oae916 eGFR 86 ml/min/1.73m2 05/10/2015 Comp Metabolic Oix813 BUN 13 mg/dL 05/10/2015 Comp Metabolic Ock858 B/C Ratio 18.3 Ratio 05/10/2015 Comp Metabolic Hoz005 CALCIUM 9.4 mg/dL 05/10/2015 Comp Metabolic Mpy714 ALK PHOS 94 U/L 05/10/2015 Comp Metabolic Apn311 AST(SGOT) 22 U/L 05/10/2015 Comp Metabolic Ltz011 ALT(SGPT) 21 U/L 05/10/2015 Comp Metabolic Eyd664 BILI T 0.3 mg/dL 05/10/2015 Comp Metabolic Rnz954 ALBUMIN 3.9 g/dL 05/10/2015 Comp Metabolic Xjj627 TPRO 6.1 g/dL 05/10/2015 Comp Metabolic Giz036 GLOB 2.2 g/dL 05/10/2015 Comp Metabolic Qpf103 A/G Ratio 1.7 Ratio 05/10/2015 Comp Metabolic Btv260 Osmo 274 mOsmo 05/10/2015 Tsh Ord6 hTSH [...] 29.4 pg 05/10/2015 Cbc With Differential Ord2 Floyd% 9.0 % 05/10/2015 Cbc With Differential Ord2 [...] 2.14 K/ul 05/10/2015 Cbc With Differential Ord2 Floyd ABS# 0.5 K/ul 05/10/2015 Cbc With Differential [...] Ord30 C/HDL 3.8 Ratio 05/10/2015 Culture Urine [id number] URINE CULTURE SEE NOTES 02/25/2015 Culture Urine [id number] Continued Results 02/25/2015 Urine Culture Ucult Complete >100,000 col/ml aerobic growth sent to ref lab 02/22/2015 Free T4 Ods015 FREE T4 1.16 ng/dL 02/11/2015 Tsh Ord6 hTSH II 0.51 uIU/mL 02/11/2015 Review of Systems System Result Effective Dates Constitutional No recent illness 05/30/2018 Constitutional No [...] Procedure Codes Date THER/PROPH/DIAG INJ SC/IM CPT-4: 92112 04/08/2018 ROCEPHIN, PER 250 MG CPT- 4: J0696 04/08/2018 THER/PROPH/DIAG INJ SC/IM CPT-4: 82853 04/07/2018 ROCEPHIN, PER 250 MG CPT- 4: J0696 04/07/2018 THER/PROPH/DIAG INJ SC/IM CPT-4: 14865 04/06/2018 ROCEPHIN, PER 250 MG CPT- 4: J0696 04/06/2018 THER/PROPH/DIAG INJ SC/IM CPT-4: 56292 04/05/2018 ROCEPHIN, PER 250 MG CPT- 4: J0696 04/05/2018 KETOROLAC TROMETHAMINE INJ CPT-4: J1885 04/05/2018 THER/PROPH/DIAG INJ SC/IM CPT-4: 28381 04/04/2018 ROCEPHIN, PER 250 MG CPT- 4: J0696 04/04/2018 KETOROLAC TROMETHAMINE INJ CPT-4: J1885 04/04/2018 URINALYSIS NONAUTO W/O SCOPE CPT-4: 46474 03/24/2018 PPPS, SUBSEQ VISIT CPT- 4: G0439 12/24/2017 THER/PROPH/DIAG INJ SC/IM CPT-4: 16799 12/24/2017 TRIAMCINOLONE ACET INJ NOS CPT-4: J3301 12/24/2017 THER/PROPH/DIAG INJ SC/IM CPT-4: 94740 11/18/2017 ROCEPHIN, PER 250 MG CPT- 4: J0696 11/18/2017 PRESCRIP TRANSMIT VIA ERX SY CPT-4: G8553 04/01/2017 TRIAMCINOLONE ACET INJ NOS CPT-4: J3301 03/25/2017 PPPS, SUBSEQ VISIT CPT- 4: G0439 12/23/2016 THER/PROPH/DIAG INJ SC/IM CPT-4: 95047 12/08/2016 TRIAMCINOLONE ACET INJ NOS CPT-4: J3301 12/08/2016 PRESCRIP TRANSMIT VIA ERX SY CPT-4: G8553 12/08/2016 PRESCRIP TRANSMIT VIA ERX SY CPT-4: G8553 11/30/2016 URINALYSIS NONAUTO W/O SCOPE CPT-4: 12062 07/08/2016 PRESCRIP TRANSMIT VIA ERX SY CPT-4: G8553 06/01/2016 PRESCRIP TRANSMIT VIA ERX SY CPT-4: G8553 02/27/2016 THER/PROPH/DIAG INJ SC/IM CPT-4: 36846 03/01/2015 ROCEPHIN, PER 250 MG CPT- 4: J0696 03/01/2015 THER/PROPH/DIAG INJ SC/IM CPT-4: 26701 02/28/2015 ROCEPHIN, PER 250 MG CPT- 4: J0696 02/28/2015 THER/PROPH/DIAG INJ SC/IM CPT-4: 91809 02/27/2015 ROCEPHIN, PER 250 MG CPT- 4: J0696 02/27/2015 THER/PROPH/DIAG INJ SC/IM CPT-4: 16390 02/26/2015 ROCEPHIN, PER 250 MG CPT- 4: J0696 02/26/2015 THER/PROPH/DIAG INJ SC/IM CPT-4: 10626 02/25/2015 ROCEPHIN, PER 250 MG CPT- 4: J0696 02/25/2015 URINALYSIS NONAUTO W/O SCOPE CPT-4: 67244 02/21/2015 Vital Signs Date Vital 05/30/2018 Blood Pressure 1: 136/72 Code: 8480-6 BMI: 28.0 Code: 52302-6 Heart Rate 1: 84 bpm Height: 5'3" Weight: 158 lbs 05/10/2018 Blood Pressure 1: 130/72 Code: 8480-6 BMI: 28.2 Code: 83686-0 Heart Rate 1: 70 bpm Height: 5'3" [...] 1: 134/58 Code: 8480-6 BMI: 27.8 Code: 52889-6 Heart Rate 1: 85 bpm Height: 5'3" SpO2: 96% Weight: 157 lbs 03/24/2018 Blood Pressure 1: 128/82 Code: 8480-6 BMI: 27.8 Code: 36530-0 Heart Rate 1: 84 bpm Height: 5'3" SpO2: 97% Weight: 157 lbs 03/01/2018 Blood Pressure 1: 136/70 Code: 8480-6 BMI: 27.8 Code: 04324-1 Heart Rate 1: 70 bpm Height: 5'3" SpO2: 96% Weight: 157 lbs 12/24/2017 Height: Weight: 11/18/2017 Blood Pressure 1: 164/74 Code: 8480-6 BMI: 27.6 Code: 04851-1 Heart Rate 1: 70 bpm Height: 5'3" SpO2: 96% Weight: 156 lbs 11/03/2017 Blood Pressure 1: 118/72 Code: 8480-6 BMI: 27.6 Code: 98409-0 Heart Rate 1: 82 bpm Height: 5'3" SpO2: 96% Weight: 156 lbs 09/22/2017 Blood Pressure 1: 136/68 Code: 8480-6 BMI: 27.6 Code: 50642-6 Heart Rate 1: 70 bpm Height: 5'3" SpO2: 97% Weight: 156 lbs 04/01/2017 Blood Pressure 1: 144/82 Code: 8480-6 Heart Rate 1: 68 bpm Height: 5'3" SpO2: 97% Weight: 03/25/2017 Blood Pressure 1: 116/70 Code: 8480-6 BMI: 26.7 Code: 87935-6 Heart Rate 1: 67 bpm Height: 5'3" SpO2: 98% Weight: 151 lbs 12/23/2016 BMI: 26.7 Code: 12268-7 Height: 5'3" Weight: 151 lbs 12/22/2016 Blood Pressure 1: 142/60 Code: 8480-6 BMI: 26.7 Code: 42682-9 Heart Rate 1: 67 bpm Height: 5'3" SpO2: 98% Weight: 151 lbs 12/08/2016 Blood Pressure 1: 140/72 Code: 8480-6 Heart Rate 1: 72 bpm Height: 5'3" SpO2: 97% Weight: 11/30/2016 Blood Pressure 1: 128/80 Code: 8480-6 BMI: 26.7 Code: 50307-1 Heart Rate 1: 63 bpm Height: 5'3" SpO2: 96% Weight: 151 lbs 09/28/2016 Blood Pressure 1: 130/80 Code: 8480-6 BMI: 27.1 Code: 06884-9 Heart Rate 1: 80 bpm Height: 5'3" SpO2: 97% Weight: 153 lbs 07/06/2016 Blood Pressure 1: 162/72 Code: 8480-6 BMI: 27.6 Code: 57969-1 Heart Rate 1: 72 bpm Height: 5'3" SpO2: 98% Weight: 156 lbs 06/01/2016 Blood Pressure 1: 122/66 Code: 8480-6 BMI: 27.5 Code: 28280-7 Heart Rate 1: 73 bpm Height: 5'3" SpO2: 98% Weight: 155 lbs 8 oz 02/27/2016 Blood Pressure 1: 126/68 Code: 8480-6 BMI: 26.9 Code: 33572-7 Heart Rate 1: 70 bpm Height: 5'3" SpO2: 98% Weight: 152 lbs 09/10/2015 Blood Pressure 1: 130/70 Code: 8480-6 BMI: 26.9 Code: 57502-4 Heart Rate 1: 72 bpm Height: 5'3" SpO2: 97% Weight: 152 lbs 05/14/2015 Blood Pressure 1: 138/82 Code: 8480-6 BMI: 26.4 Code: 34227-1 Heart Rate 1: 75 bpm Height: 5'3" SpO2: 98% Weight: 149 lbs 02/11/2015 Blood Pressure 1: 128/72 Code: 8480-6 BMI: 25.5 Code: 94165-2 Heart Rate 1: 73 bpm Height: 5'3" SpO2: 94% Weight: 144 lbs Functional Status No Functional Status data History of Present Illness Symptom Name Status Result Effective Date Notes Limitation on Activities moderately limits activities 05/30/2018 [...] data Encounters Encounter Performer Location Codes Date 60260 EST. PATIENT, LEVEL IV Diagnosis: Essential (primary) hypertension[ICD10: I10] Diagnosis: Other fatigue[ICD10: R53.83] Diagnosis: Other allergic rhinitis[ICD10: J30.89] Bridget Cortez MD, [facility] CPT- 4: 86455 05/30/2018 01913 EST. PATIENT, LEVEL IV Diagnosis: Essential (primary) hypertension[ICD10: I10] Diagnosis: Other fatigue[ICD10: R53.83] Bridget Cortez MD, [facility] CPT-4: 71642 05/10/2018 24470 EST. PATIENT, LEVEL IV Diagnosis: Low back pain[ICD10: M54.5] Diagnosis: Essential (primary) hypertension[ICD10: I10] Diagnosis: Other fatigue[ICD10: R53.83] Diagnosis: Other malaise[ICD10: R53.81] Bridget Cortez MD, [facility] CPT-4: 82659 04/21/2018 09337 EST. PATIENT, LEVEL III Diagnosis: Other fatigue[ICD10: R53.83] Diagnosis: Otalgia, right ear[ICD10: H92.01] Bridget Cortez MD, [facility] CPT-4: 16427 04/13/2018 ([id number]) 17819 EST. PATIENT, LEVEL III Diagnosis: Essential (primary) hypertension[ICD10: I10] Diagnosis: Dysuria[ICD10: R30.0] Diagnosis: Nausea[ICD10: R11.0] Diagnosis: Headache[ICD10: R51] Elen Cortez MD, [facility] CPT-4: 23012 04/04/2018 85759 EST. PATIENT, LEVEL III Diagnosis: Other acute sinusitis[ICD10: J01.80] Diagnosis: Dizziness and giddiness[ICD10: R42] Diagnosis: Dysuria[ICD10: R30.0] Diagnosis: Candidal stomatitis[ICD10: B37.0] Diagnosis: Essential (primary) hypertension[ICD10: I10] Diagnosis: Other fatigue[ICD10: R53.83] Diagnosis: Other malaise[ICD10: R53.81] Bridget Cortez MD, [facility] CPT-4: 17227 04/01/2018 ([id number]) 95878 EST. 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 PATIENT, LEVEL IV Diagnosis: Otalgia, right ear[ICD10: H92.01] Diagnosis: Headache[ICD10: R51] Diagnosis: Other fatigue[ICD10: R53.83] Diagnosis: Abnormal findings on diagnostic imaging of other specified body structures[ICD10: R93.89] Elen Cortez MD, [facility] CPT-4: 56023 03/01/2018 64536 EST. PATIENT, LEVEL III Diagnosis: Acute cystitis with hematuria[ICD10: N30.01] Bridget Cortez MD, [facility] CPT-4: 76370 11/18/2017 17790 EST. PATIENT, LEVEL IV Diagnosis: Other acute sinusitis[ICD10: J01.80] Diagnosis: Otalgia, right ear[ICD10: H92.01] Bridget Cortez MD, [facility] CPT-4: 07243 11/03/2017 61937 EST. PATIENT, LEVEL III Diagnosis: Other fatigue[ICD10: R53.83] Diagnosis: Other malaise[ICD10: R53.81] Diagnosis: Pain in left knee[ICD10: M25.562] Diagnosis: Pain in right knee[ICD10: M25.561] Bridget Cortez MD, [facility] CPT-4: 41378 09/22/2017 ([id number]) 81510 EST. PATIENT, LEVEL III Diagnosis: Cough[ICD10: R05] Diagnosis: Acute bronchitis due to other specified organisms[ICD10: J20.8] Elen Cortez MD, [facility] CPT-4: 94504 04/01/2017 ([id number]) 39131 EST. PATIENT, LEVEL III Diagnosis: Otalgia, right ear[ICD10: H92.01] Diagnosis: Other allergic rhinitis[ICD10: J30.89] Shiela Cortez MD, [facility] CPT-4: 43645 03/25/2017 ([id number]) 39530 EST. PATIENT, LEVEL III Diagnosis: Benign paroxysmal vertigo, bilateral[ICD10: H81.13] Shiela Cortez MD, [facility] CPT-4: 43687 12/22/2016 ([id number]) 45600 EST. PATIENT, LEVEL IV Diagnosis: Benign paroxysmal vertigo, bilateral[ICD10: H81.13] Diagnosis: Other allergic rhinitis[ICD10: J30.89] Diagnosis: Hypothyroidism, unspecified[ICD10: E03.9] Shiela Cortez MD, [facility] CPT-4: 37533 12/08/2016 ([id number]) 42070 EST. PATIENT, LEVEL IV Diagnosis: Atrophy of thyroid (acquired)[ICD10: E03.4] Diagnosis: Essential (primary) hypertension[ICD10: I10] Diagnosis: Mixed hyperlipidemia[ICD10: E78.2] Elen Cortez MD, [facility] CPT- 4: 97830 11/30/2016 55818 EST. PATIENT, LEVEL IV Diagnosis: Headache[ICD10: R51] Diagnosis: Other fatigue[ICD10: R53.83] Diagnosis: Dizziness and giddiness[ICD10: R42] Bridget Cortez MD, [facility] CPT- 4: 64857 09/28/2016 75035 EST. PATIENT, LEVEL IV Diagnosis: Essential (primary) hypertension[ICD10: I10] Diagnosis: Headache[ICD10: R51] Bridget Cortez MD, [facility] CPT-4: 97316 07/06/2016 ([id number]) 04960 EST. PATIENT, LEVEL IV Diagnosis: Essential (primary) hypertension[ICD10: I10] Diagnosis: Atrophy of thyroid (acquired)[ICD10: E03.4] Diagnosis: Mixed hyperlipidemia[ICD10: E78.2] Elen Cortez MD, [facility] CPT- 4: 21428 06/01/2016 89597 EST. PATIENT, LEVEL IV Diagnosis: Acute laryngopharyngitis[ICD10: J06.0] Diagnosis: Other allergic rhinitis[ICD10: J30.89] Diagnosis: Other specified hypothyroidism[ICD10: E03.8] Diagnosis: Other fatigue[ICD10: R53.83] [facility] CPT-4: 85227 02/27/2016 ([id number]) 73338 EST. PATIENT, LEVEL III Diagnosis: Essential (primary) hypertension[ICD10: I10] Diagnosis: Mixed hyperlipidemia[ICD10: E78.2] [facility] CPT- 4: 77084 09/10/2015 ([id number]) 72274 EST. PATIENT, LEVEL IV Diagnosis: Essential (primary) hypertension[ICD10: I10] Diagnosis: Hypothyroidism, unspecified[ICD10: E03.9] Diagnosis: Unspecified osteoarthritis, unspecified site[ICD10: M19.90] Elen Cortez MD, [facility] CPT-4: 65088 05/14/2015 ([id number]) OFFICE VISIT, NEW - LEVEL 4 Diagnosis: Essential (primary) hypertension[ICD10: I10] Diagnosis: Hypothyroidism, unspecified[ICD10: E03.9] Diagnosis: Unspecified osteoarthritis, unspecified site[ICD10: M19.90] [facility] CPT-4: 63364 02/11/2015 Plan of Care Planned Activity Notes Codes Status Date Appointment: Bridget Velazco WPtel: [address] [place], [place] [id number] (15 min) Moderate 06/08/2018 Visit Plan: Hypertension - The patient [...] 05/30/2018 Appointment: Bridget Velazco WPtel: [facility] [address] (15 min) Moderate 05/30/2018 Patient Education: Patient [...] or concerns. 05/10/2018 Appointment: Bridget Velazco WPtel: [address] [place], [place] [phone] (15 min) Moderate 05/10/2018 Patient Education: Patient Medication Summary Completed 05/10/2018 Appointment: Elen Cortez WPtel: [address] [place], [place] [phone] (15 min) Moderate 05/05/2018 Referral: Wan Steven [...] or concerns. 04/21/2018 Appointment: Bridget Velazco WPtel: [address] [place], [place] [phone] (15 min) Moderate 04/21/2018 Patient Education: Patient Medication Summary Completed 04/21/2018 Patient Education: Back Pain Completed 04/21/2018 Appointment: Bridget Velazco WPtel: [address] [place], [place] [phone] (15 min) Moderate 04/14/2018 Care [...] Dr. Saini. 04/13/2018 Appointment: Bridget Velazco WPtel: [address] [place], [place] [phone] (30 min) Complex 04/13/2018 Patient Education: Patient Medication Summary Completed 04/13/2018 Appointment: Nurse Visit 04/08/2018 Appointment: Bridget Velazco WPtel: [address] [place], [place] [phone] (15 min) Moderate 04/08/2018 Patient Education: Patient Medication Summary Completed 04/08/2018 Appointment: Injection 04/07/2018 Patient Education: Patient Medication Summary Completed 04/07/2018 Appointment: Injection 04/06/2018 Patient Education: Patient Medication Summary Completed 04/06/2018 Appointment: Injection 04/05/2018 Appointment: Elen Cortez WPtel: [address] [place], [place] [phone] (15 min) Moderate 04/05/2018 Patient Education: Patient [...] toradol today. 04/04/2018 Appointment: [facility] Cortez [facility]el[phone] (10 min) Simple 04/04/2018 Patient Education: Patient Medication Summary Completed 04/04/2018 Patient Education: Patient Medication Summary Completed 04/04/2018 Patient Education: Patient Medication Summary Completed 04/04/2018 Care Plan: Referral Order SNOMED-CT : [id number] Pending 04/04/2018 Visit Plan: Dysuria, dizziness, fatigue, [...] show improvement. 04/01/2018 Appointment: [phone] [place] (15 min) Moderate 04/01/2018 Patient Education: Patient Medication Summary Completed 04/01/2018 Visit Plan: Sinusitis - Pt has acute infection - pain in face, maxillary region, Pt informed to use decongestant, RX given to patient, sinus rinses also recommended. Call if symptoms do not show improvement. Dysuria - rx for antibiotic sent to pharmacy. 03/24/2018 Appointment: Elen Cortez WPtel: [phone] [facility] (15 min) Moderate 03/24/2018 Patient Education: Patient [...] improve. 03/01/2018 Appointment: Elen Cortez WPtel: [phone] [place] (15 min) Moderate 03/01/2018 Patient Education: Patient [...] allergy spray. 12/24/2017 Appointment: Bridget Velazco WPtel: [address] [place], [place] [phone] [facility] - Annual Wellness Visit 12/24/2017 Patient Education: Patient Medication Summary Completed 12/24/2017 Appointment: Bridget Velazco WPtel: [address] [place], [place] [phone] (15 min) Moderate 11/30/2017 Appointment: Lab Draw [...] not improve. 11/18/2017 Appointment: Bridget Velazco WPtel: [address] [place], [place] [phone] (15 min) Moderate 11/18/2017 Patient Education: Patient Medication Summary Completed 11/18/2017 Visit Plan: Sinusitis - Pt has acute infection - pain in face, maxillary region, Pt informed to use decongestant, RX given to patient, sinus rinses also recommended. Call if symptoms do not show improvement. 11/03/2017 Appointment: Bridget Velazco WPtel: [address] [place], [place] [phone] (15 min) Moderate 11/03/2017 Patient [...] 09/22/2017 Appointment: Bridget Velazco WPtel: [facility] (15 min) Moderate 09/22/2017 Patient Education: Patient Medication Summary Completed 09/22/2017 Visit Plan: Bronchitis - acute case of bronchitis identified. Pt has been given antibiotics, breathing treatments as appropriate, and pt has been instructed to call if symptoms are not improved, or if symptoms acutely worsen. 04/01/2017 Appointment: Elen Cortez WPtel: [facility] (15 min) Moderate 04/01/2017 Patient Education: [...] 03/25/2017 Appointment: Shiela Srivastava WPtel: [facility]8 [address] (10 min) Simple 03/25/2017 Appointment: Elen Cortez WPtel: [facility]4 [facility] (15 min) Moderate 03/25/2017 Patient [...] care surrogate. 12/23/2016 Appointment: Bridget Velazco WPtel: [facility] - Annual Wellness Visit 12/23/2016 Patient Education: Patient Medication Summary Completed 12/23/2016 Visit Plan: Vertigo-discussed PT for vestibular exercises-patient wants to wait since symptoms are improving-continue anti histamine as directed- meclizine as needed 12/22/2016 Appointment: Shiela Srivastava WPtel: [phone] [facility] [place] [address] (30 min) Complex 12/22/2016 Patient Education: Patient [...] of control. 12/08/2016 Appointment: Shiela Srivastava WPtel: [facility]5 [phone] (30 min) Complex 12/08/2016 Patient Education: Patient [...] to medications. 11/30/2016 Appointment: Elen Cortez WPtel: [facility]6[address] (15 min) Moderate 11/30/2016 Patient Education: [...] or concerns. 09/28/2016 Appointment: Bridget Velazco WPtel: [facility]6 [facility] (30 min) Complex 09/28/2016 Patient Education: Patient [...] 07/06/2016 Appointment: Bridget Velazco WPtel: [facility]6 [facility] (15 min) Moderate 07/06/2016 [...] [facility]Ptel: [phone] [place] (15 min) Moderate 06/01/2016 Patient Education: Patient [...] labs 02/27/2016 Appointment: Bridget Velazco WPtel: [phone] [facility] (30 min) Complex 02/27/2016 Patient Education: Patient Medication Summary Completed 02/27/2016 Patient Education: Patient Medication Summary Completed 09/27/2015 Care Plan: SCREENINGMAMMOGRAPHYDIGITAL [facility] : 10191-0 Pending 09/27/2015 Visit Plan: Hypertension - well [...] colonoscopy 09/10/2015 Appointment: Elen Cortez WPtel: [phone] [facility] (15 min) Moderate 09/10/2015 Patient Education: Patient [...] Sanchez. 05/14/2015 Appointment: Elen Cortez WPtel: [phone] [place] (15 min) Moderate 05/14/2015 Patient Education: Patient Medication Summary Completed 05/14/2015 Patient Education: Hypertension Completed 05/14/2015 Care Plan: Referral Order SNOMED-CT : [id number] Ordered 05/14/2015 Patient Education: Patient Medication Summary Completed 03/01/2015 Appointment: Nurse Visit 02/28/2015 Patient Education: Patient Medication Summary Completed 02/28/2015 Patient Education: Patient Medication Summary Completed 02/27/2015 Appointment: Nurse Visit 02/26/2015 Patient Education: Patient Medication Summary Completed 02/26/2015 Appointment: Injection 02/25/2015 Patient Education: Patient Medication Summary Completed 02/25/2015 Patient Education: Patient Medication Summary Completed 02/21/2015 Care Plan: URINALYSIS NONAUTO W/O SCOPE LOINC : 19561-4 Ordered 02/21/2015 Visit Plan: Hypertension - well [...] 02/11/2015 Appointment: Elen Cortez WPtel: [facility] New Patient 02/11/2015 Patient Education: Patient Medication [...] assure normal liver response to medications. . UTI - pt with positive urinalysis [...] based on previous levels of control. . Sinusitis - Pt has acute infection [...] Call if symptoms do not show improvement. appointment with Dr. Saini on 05/11 at [...] with any changes, questions, or concerns. . Episodes of headache, dizziness, and light [...]
[2018-11-10 18:50] LABS: BILIRUBIN,URINE NEGATIVE (NEGATIVE); CLARITY,URINE CLEAR; COLOR,URINE YELLOW; GLUCOSE, URINE (UA) NEGATIVE (NEGATIVE); KETONES,URINE NEGATIVE (NEGATIVE); LEUKOCYTE ESTERASE ,URINE 1+ (NEGATIVE); NITRITE,URINE NEGATIVE (NEGATIVE); PH,URINE 6.5 (5-9); PROTEIN,URINE NEGATIVE (NEGATIVE); UROBILINOGEN,URINE NORMAL (NORMAL)
--- NOTE | 2018-11-10 19:00 | NUR ---
ASSUMED PRIMARY NURSE ROLE
--- NOTE | 2018-11-10 19:36 | Diagnostic Imaging Report ---
PROCEDURE: CT abdomen and pelvis with contrast. TECHNIQUE: Multiple contiguous axial images were obtained through the abdomen and pelvis after administration of intravenous contrast. Auto Exposure Controls were utilized during the CT exam to meet ALARA standards for radiation dose reduction. INDICATION: Left lower quadrant abdominal pain, fatigue, and diarrhea. COMPARISON: None available. FINDINGS: There is mild subsegmental dependent atelectasis in both lower lobes. A partially visualized 4 mm pulmonary nodule in the right lower lobe and a 4 mm nodule demonstrated in the right middle lobe. These are of doubtful clinical significance and no further follow-up is recommended, per Fleischner Society recommendations (Radiology, 2017 Rodolfo;284(1):228-243). The visualized heart is normal in size. The liver, spleen, gallbladder, pancreas, and adrenal glands are unremarkable. The kidneys are symmetric in size and demonstrate normal enhancement, without evidence of renal calculus or hydronephrosis on either side. The visualized ureters are normal. There is moderate colonic diverticulosis, with focal short segment thickening involving the distal descending colon near the junction with the sigmoid colon. There is mild pericolonic inflammatory change in this region. There is no pneumoperitoneum or focal/loculated or rim-enhancing collection. There is no evidence of bowel obstruction. The appendix is normal. No lymphadenopathy is appreciated. There is mild calcified atherosclerotic plaque involving the abdominal aorta, without aneurysmal dilatation. There is no evidence of venous thrombosis. The bladder is normal. The uterus demonstrates a normal CT appearance. There is no adnexal mass or pelvic free fluid. The abdominal wall is unremarkable. Multilevel degenerative changes involve the spine. No acute osseous abnormality is appreciated. IMPRESSION: Acute diverticulitis involving the distal descending colon near the junction with the sigmoid colon. There is no evidence of perforation or abscess formation. Dictated by: Dictated on workstation # [id number]
[2018-11-10 19:56] LABS: WBC,URINE RARE /HPF
[2018-11-10 19:58] LABS: BACTERIA,URINE TRACE /HPF
[2018-11-10] MEDS ORDERED: AMOX-358 PO (20:00)
--- OUTSIDE RECORDS SUMMARY | 2018-11-10 20:00 | XMS REPORT | Continuity of Care Document ---
Author Organization Unknown Address Unknown Allergies Active Description Code Type Severity Reaction Onset Reported/Identified Relationship to Patient Clinical Status Yes Sulfa (Sulfonamide Antibiotics) [id number] Drug Allergy Unknown N/A 12/04/2014 Yes latex [id number] Drug Allergy Mild RASH 06/01/2018 Medications There [...] OF MALIGNANT NEOPLASM OF 09/30/2016 NAKUL GONZALEZ CITY CLERK Ot G45.9 TRANSIENT CEREBRAL ISCHEMIC ATTACK, [facility] 09/30/2016 NAKUL GONZALEZ CITY CLERK Ot G45.9 TRANSIENT CEREBRAL ISCHEMIC ATTACK, [facility] 09/30/2016 NAKUL GONZALEZ CITY CLERK Ot G45.9 TRANSIENT CEREBRAL ISCHEMIC ATTACK, [facility] 09/30/2016 NAKUL GONZALEZ CITY CLERK Ot G45.9 TRANSIENT CEREBRAL ISCHEMIC ATTACK, UNSP 10/05/2016 NAKUL GONZALEZ CITY CLERK Ot G45.9 TRANSIENT CEREBRAL ISCHEMIC ATTACK, [facility] 10/05/2016 NAKUL GONZALEZ CITY CLERK Ot G45.9 TRANSIENT CEREBRAL ISCHEMIC ATTACK, [facility] 10/05/2016 NAKUL GONZALEZ CITY CLERK Ot G45.9 TRANSIENT CEREBRAL ISCHEMIC ATTACK, UNS 10/05/2016 NAKUL GONZALEZ CITY CLERK Ot G45.9 TRANSIENT CEREBRAL ISCHEMIC ATTACK, [facility] 10/28/2016 NAKUL GONZALEZ CITY CLERK Ot R42 DIZZINESS AND GIDDINESS 10/28/2016 NAKUL GONZALEZ [place] CLERK Ot R51 HEADACHE 10/28/2016 NAKUL GONZALEZ CITY CLERK Ot Z86.73 PRSNL HX OF TIA (TIA), [...] HEADACHE 02/26/2018 BERNABE ZAMORANO MD Ot Z79.52 JAIL (CURRENT) USE OF 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 02/26/2018 BERNABE ZAMORANO MD Ot Z79.82 JAIL (CURRENT) USE OF ASPIRIN 02/26/2018 BERNABE ZAMORANO [...] HEADACHE 03/01/2018 BERNABE ZAMORANO MD Ot 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.52 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 03/01/2018 BERNABE ZAMORANO MD Ot Z79.82 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 ASPIRIN 03/01/2018 BERNABE ZAMORANO MD Ot Z85.828 PERSONAL HISTORY OF OTHER MALIGNANT NEOP 03/01/2018 BERNABE ZAMORANO MD Ot Z86.73 PRSNL HX OF TIA (TIA), AND CEREB INFRC W 03/01/2018 BERNABE ZAMORANO MD Ot Z88.2 ALLERGY STATUS TO SULFONAMIDES STATUS 03/01/2018 BERNABE ZAMORANO MD Ot Z96.651 PRESENCE OF RIGHT ARTIFICIAL KNEE JOINT 03/22/2018 NAKUL GONZALEZ APRN Ot R42 DIZZINESS AND GIDDINESS 03/22/2018 NAKUL GONZALEZ [place] CLERK Ot R51 HEADACHE 03/22/2018 NAKUL GONZALEZ CITY CLERK Ot Z86.73 PRSNL HX OF TIA (TIA), AND CEREB INFRC W 03/23/2018 AAKASH PATEL, MARTA Zavala Ot J84.10 PULMONARY FIBROSIS, UNSPECIFIED 03/23/2018 AAKASH PATEL, MARTA Zavala Ot L98.9 DISORDER OF THE SKIN AND SUBCUTANEOUS TI 03/29/2018 VIRGEN DO LACY K Ot E03.9 HYPOTHYROIDISM, UNSPECIFIED 03/29/2018 VIRGEN DO, LACY K Ot I10 ESSENTIAL (PRIMARY) HYPERTENSION 03/29/2018 VIRGEN DO, LACY K Ot R03.0 ELEVATED BLOOD-PRESSURE READING, W/O SANDRA 03/29/2018 VIRGEN DO LACY K Ot 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 03/29/2018 VIRGEN DO LACY K Ot Z79.82 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 ASPIRIN 03/29/2018 VIRGEN DO LACY K Ot Z85.828 PERSONAL HISTORY OF OTHER MALIGNANT NEOP 03/29/2018 VIRGEN DO LACY K Ot Z86.73 PRSNL HX OF TIA (TIA), AND CEREB INFRC W 03/29/2018 VIRGEN DO LACY K Ot Z88.2 ALLERGY STATUS TO SULFONAMIDES STATUS 03/29/2018 VIRGEN DO LACY K Ot Z90.89 ACQUIRED ABSENCE OF OTHER ORGANS 03/29/2018 VIRGEN DO LACY K Ot Z96.651 PRESENCE OF RIGHT ARTIFICIAL KNEE JOINT 03/29/2018 VIRGEN DO LACY K Ot Z98.890 OTHER SPECIFIED POSTPROCEDURAL STATES 03/30/2018 VIRGEN DO LACY K Ot E03.9 HYPOTHYROIDISM, UNSPECIFIED 03/30/2018 VIRGEN DO, LACY K Ot I10 ESSENTIAL (PRIMARY) HYPERTENSION 03/30/2018 VIRGEN DO LACY K Ot R03.0 ELEVATED BLOOD-PRESSURE READING, W/O SANDRA 03/30/2018 VIRGEN DO LACY K Ot Z79.51 JAIL (CURRENT) USE OF INHALED STERO 03/30/2018 VIRGEN DO LACY K Ot Z79.82 JAIL (CURRENT) USE OF ASPIRIN 03/30/2018 VIRGEN DO LACY K Ot Z85.828 PERSONAL HISTORY OF OTHER MALIGNANT NEOP 03/30/2018 RADHA NEW DOA K Ot Z86.73 PRSNL HX OF TIA (TIA), AND CEREB INFRC W 03/30/2018 RADHA NEW DOA K Ot Z88.2 ALLERGY STATUS TO SULFONAMIDES STATUS 03/30/2018 RADHA NEW DOA K Ot Z90.89 ACQUIRED ABSENCE OF OTHER ORGANS 03/30/2018 RADHA NEW DOA K Ot Z96.651 PRESENCE OF RIGHT ARTIFICIAL KNEE JOINT 03/30/2018 RADHA NEW DOA K Ot Z98.890 OTHER SPECIFIED POSTPROCEDURAL STATES 04/01/2018 NAKUL GONZALEZ CITY CLERK Ot E86.0 DEHYDRATION 04/01/2018 NAKUL GONZALEZ CITY CLERK Ot N39.0 URINARY TRACT INFECTION, SITE NOT SPECIF 04/01/2018 NAKUL GONZALEZ CITY CLERK Ot R53.81 OTHER MALAISE 04/01/2018 NKAUL GONZALEZ CITY CLERK Ot R53.83 OTHER FATIGUE 04/03/2018 VIRGEN LILLY LACY Baird Ot E03.9 HYPOTHYROIDISM, UNSPECIFIED 04/03/2018 VIRGEN LILLY LACY K Ot I10 ESSENTIAL (PRIMARY) HYPERTENSION 04/03/2018 VIRGEN LILLY LACY K Ot R03.0 ELEVATED BLOOD-PRESSURE READING, W/O SANDRA 04/03/2018 VIRGEN LILLY LACY K Ot 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 04/03/2018 VIRGEN LILLY LACY K Ot Z79.82 JAIL (CURRENT) USE OF ASPIRIN 04/03/2018 VIRGEN LILLY LACY K Ot Z85.828 PERSONAL HISTORY OF OTHER MALIGNANT NEOP 04/03/2018 VIRGEN LILLY LACY K Ot Z86.73 PRSNL HX OF TIA (TIA), AND CEREB INFRC W 04/03/2018 VIRGEN LILLY LACY K Ot Z88.2 ALLERGY STATUS TO SULFONAMIDES STATUS 04/03/2018 RADHA NEW DOA K Ot Z90.89 ACQUIRED ABSENCE OF OTHER ORGANS 04/03/2018 VIRGEN LILLY LACY K Ot Z96.651 PRESENCE OF RIGHT ARTIFICIAL KNEE JOINT 04/03/2018 VIRGEN LILLY LACY K Ot Z98.890 OTHER SPECIFIED POSTPROCEDURAL STATES 04/05/2018 NAKUL GONZALEZ CITY CLERK Ot E86.0 DEHYDRATION 04/05/2018 LISA NAKUL Edith CITY CLERK Ot N39.0 URINARY TRACT INFECTION, SITE NOT SPECIF 04/05/2018 NAKUL GONZALEZ CITY CLERK Ot R53.81 OTHER MALAISE 04/05/2018 NAKUL GONZALEZ CITY CLERK Ot R53.83 OTHER FATIGUE 04/16/2018 AAKASH PATEL, MARTA Zavala Ot J84.10 PULMONARY FIBROSIS, UNSPECIFIED 04/16/2018 AAKASH PATEL, MARTA Zavala Ot L98.9 DISORDER OF THE SKIN AND SUBCUTANEOUS TI 05/09/2018 NIDA MADDOX MD Ot 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, ACQUIRED 05/23/2018 [...] STENOSIS OF UNSPECIFIED CA 05/30/2018 NIDA MADDOX MD Ot 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, ACQUIRED 06/01/2018 JORGE L IVERSON MD Ot E07.9 DISORDER OF THYROID, UNSPECIFIED 06/01/2018 JORGE L IVERSON MD Ot E78.2 MIXED HYPERLIPIDEMIA 06/01/2018 JORGE L IVERSON MD Ot I10 ESSENTIAL (PRIMARY) HYPERTENSION 06/01/2018 JORGE L IVERSON MD Ot I25.10 ATHSCL HEART DISEASE OF [place] CORONARY 06/01/2018 JORGE L IVERSON MD Ot I65.29 OCCLUSION AND STENOSIS OF UNSPECIFIED CA 06/01/2018 JOREG L IVERSON MD Ot K21.9 GASTRO-ESOPHAGEAL REFLUX DISEASE WITHOUT 06/01/2018 JORGE L IVERSON MD Ot R07.9 CHEST PAIN, UNSPECIFIED 06/01/2018 JORGE L IVERSON MD Ot R42 DIZZINESS AND GIDDINESS 06/01/2018 JORGE L IVERSON MD Ot Z79.82 JAIL (CURRENT) USE OF ASPIRIN 06/01/2018 JORGE L IVERSON MD Ot Z79.899 OTHER FILLING STATION LABORER (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) DRUG THERAPY 06/01/2018 JORGE L IVERSON MD Ot Z85.828 PERSONAL HISTORY OF OTHER MALIGNANT NEOP 06/01/2018 JORGE L IVERSON MD Ot Z86.73 PRSNL HX OF TIA (TIA), AND CEREB INFRC W 06/01/2018 JORGE L IVERSON MD Ot Z88.2 ALLERGY STATUS TO SULFONAMIDES STATUS 06/02/2018 JORGE L IVERSON MD Ot E07.9 DISORDER OF THYROID, UNSPECIFIED 06/02/2018 JORGE L IVERSON MD Ot E78.2 MIXED HYPERLIPIDEMIA 06/02/2018 JORGE L IVERSON MD Ot I10 ESSENTIAL (PRIMARY) HYPERTENSION 06/02/2018 JORGE L IVERSON MD Ot I25.10 ATHSCL HEART DISEASE OF [place] CORONARY 06/02/2018 JORGE L IVERSON MD Ot I65.29 OCCLUSION AND STENOSIS OF UNSPECIFIED CA 06/02/2018 JORGE L IVERSON MD Ot K21.9 GASTRO-ESOPHAGEAL REFLUX DISEASE WITHOUT 06/02/2018 JORGE L IVERSON MD Ot R07.9 CHEST PAIN, UNSPECIFIED 06/02/2018 JORGE L IVERSON MD Ot R42 DIZZINESS AND GIDDINESS 06/02/2018 JORGE L IVERSON MD Ot Z79.82 JAIL (CURRENT) USE OF ASPIRIN 06/02/2018 JORGE L IVERSON MD Ot Z79.899 OTHER JAIL (CURRENT) DRUG THERAPY 06/02/2018 JORGE L IVERSON MD Ot Z85.828 PERSONAL HISTORY OF OTHER MALIGNANT NEOP 06/02/2018 JORGE L IVERSON MD Ot Z86.73 PRSNL HX OF TIA (TIA), AND CEREB INFRC W 06/02/2018 JORGE L IVERSON MD Ot Z88.2 ALLERGY STATUS TO SULFONAMIDES STATUS 06/10/2018 JORGE L IVERSON MD Ot E07.9 DISORDER OF THYROID, UNSPECIFIED 06/10/2018 JORGE L IVERSON MD Ot E78.2 MIXED HYPERLIPIDEMIA 06/10/2018 JORGE L IVERSON MD, Ot G45.9 TRANSIENT CEREBRAL ISCHEMIC ATTACK, UNSP 06/10/2018 JORGE L IVERSON MD Ot I10 ESSENTIAL (PRIMARY) HYPERTENSION 06/10/2018 JORGE L IVERSON MD Ot I65.29 OCCLUSION AND STENOSIS OF UNSPECIFIED CA 06/14/2018 JORGE L IVERSON MD Ot E07.9 DISORDER OF THYROID, UNSPECIFIED 06/14/2018 JORGE L IVERSON MD, Ot E78.2 MIXED HYPERLIPIDEMIA 06/14/2018 JORGE L IVERSON MD, Ot G45.9 TRANSIENT CEREBRAL ISCHEMIC ATTACK, UNSP 06/14/2018 JORGE L IVERSON MD, Ot I10 ESSENTIAL (PRIMARY) HYPERTENSION 07/11/2018 NIDA MADDOX MD Ot E04.1 NONTOXIC SINGLE THYROID NODULE 07/28/2018 NIDA MADDOX MD Ot E04.1 NONTOXIC SINGLE THYROID NODULE 08/23/2018 NIDA MADDOX MD Ot E04.1 NONTOXIC SINGLE THYROID NODULE 11/08/2018 AAKASH PATEL, MARTA Zavala Ot R19.7 DIARRHEA, UNSPECIFIED Procedures There is no data. Results Test Result Range [id number] - 10/05/16 13:51 Serum or plasma urea nitrogen measurement (mass/volume) 16 mg/dL 18 Serum or plasma creatinine measurement (mass/volume) 0.85 mg/dL 0.60-1.30 Serum or plasma urea nitrogen/creatinine mass ratio 19 0- 20 Serum or plasma creatinine measurement with calculation [...] Automated erythrocyte mean corpuscular hemoglobin concentration measurement (mass/volume) 33 g/dL 32-36 Automated erythrocyte distribution width ratio 13.3 % 10.0- 14.5 Automated blood platelet count (count/volume) 270 10*3/uL [...] Blood monocytes automated count (number/volume) 0.6 10*3 0.0- 1.0 Automated eosinophil count 0.2 10*3/uL 0.0-0.3 Automated [...] Serum or plasma aspartate aminotransferase measurement (enzymatic activity/volume) 28 U/L 5-34 Serum or plasma alanine aminotransferase measurement (enzymatic activity/volume) 30 U/L 0-55 Serum or plasma protein measurement (mass/volume) 7.0 g/dL 6.4-8.2 Serum or plasma albumin measurement (mass/volume) 4.3 g/dL 3.2-4.5 CALCIUM CORRECTED 9.4 mg/dL 8.5-10.1 Erythrocyte sedimentation rate by westergren method - 02/26/18 12:51 Erythrocyte sedimentation rate by westergren method 9 mm 0- 30 THYROID STIMULATING HORMONE - 02/26/18 12:51 THYROID STIMULATING HORMONE 0.43 u[iU]/mL 0.35-4.94 Serum or plasma C reactive protein measurement (mass/volume) - 02/26/18 12:51 Serum or plasma C reactive protein measurement (mass/volume) 0.04 mg/dL 0.00-0.50 Complete urinalysis with reflex to culture - 02/26/18 13:54 Urine color determination YELLOW NRG Urine clarity determination CLEAR NRG Urine pH measurement by test strip 7 5-9 Specific gravity of urine by test strip 1.010 1.016-1.022 Urine protein assay by test strip, semi-quantitative [...] sediment leukocyte count by microscopy (number/high power field) NONE NRG Bacteria detection in urine sediment [...] Automated erythrocyte mean corpuscular hemoglobin concentration measurement (mass/volume) 33 g/dL 32-36 Automated erythrocyte distribution width ratio 13.0 % 10.0- 14.5 Automated blood platelet count (count/volume) 265 10*3/uL [...] Blood monocytes automated count (number/volume) 1.0 10*3 0.0- 1.0 Automated eosinophil count 0.0 10*3/uL 0.0-0.3 Automated [...] Serum or plasma aspartate aminotransferase measurement (enzymatic activity/volume) 21 U/L 5-34 Serum or plasma alanine aminotransferase measurement (enzymatic activity/volume) 29 U/L 0-55 Serum or plasma protein measurement (mass/volume) 6.6 g/dL 6.4-8.2 Serum or plasma albumin measurement (mass/volume) 4.2 g/dL 3.2-4.5 CALCIUM CORRECTED 9.4 mg/dL 8.5-10.1 Magnesium - 03/29/18 01:05 Magnesium 2.3 mg/dL 1.8-2.4 Serum or plasma troponin i.cardiac measurement (mass/volume) - 03/29/18 01:05 Serum or plasma troponin i.cardiac measurement (mass/volume) < ng/mL <0.30 Complete urinalysis with reflex to culture - 04/01/18 12:40 Urine color determination ORANGE NRG Urine clarity determination CLEAR NRG Urine pH measurement by test strip 5 5-9 Specific gravity of urine by test strip 1.015 1.016-1.022 Urine protein assay by test strip, semi-quantitative [...] sediment leukocyte count by microscopy (number/high power field) [HPF] NRG Bacteria detection in urine sediment [...] culture - 04/01/18 12:40 Bacterial urine culture [id number] NRG COLONY COUNT 50,000 CFU/ML NRG FTX;REPORTABLE SUSCEPTIBILITY REPORTED 04-03-2018, 0905 NR RML Sensitivity Panel - 04/01/18 12:40 Gentamicin susceptibility test by minimum inhibitory concentration <= NRG Trimethoprim/sulfamethoxazole susceptibility test by minimum inhibitoryconcentration <= NRG Levofloxacin susceptibility test by minimum inhibitory concentration > NRG Ampicillin susceptibility test by minimum inhibitory concentration > NRG Cefazolin susceptibility test by minimum inhibitory concentration > NRG Ceftriaxone susceptibility test by minimum inhibitory concentration <= NRG Ciprofloxacin susceptibility test by minimum inhibitory concentration > NRG Meropenem susceptibility test by minimum inhibitory concentration <= NRG Nitrofurantoin susceptibility test by minimum inhibitory [...] Automated erythrocyte mean corpuscular hemoglobin concentration measurement (mass/volume) 33 g/dL 32-36 Automated erythrocyte distribution width ratio 13.2 % 10.0- 14.5 Automated blood platelet count (count/volume) 274 10*3/uL [...] Serum or plasma aspartate aminotransferase measurement (enzymatic activity/volume) 22 U/L 5-34 Serum or plasma alanine aminotransferase measurement (enzymatic activity/volume) 25 U/L 0-55 Serum or plasma protein [...] Automated erythrocyte mean corpuscular hemoglobin concentration measurement (mass/volume) 33 g/dL 32-36 Automated erythrocyte distribution width ratio 13.0 % 10.0- 14.5 Automated blood platelet count (count/volume) 263 10*3/uL [...] Serum or plasma aspartate aminotransferase measurement (enzymatic activity/volume) 27 U/L 5-34 Serum or plasma alanine aminotransferase measurement (enzymatic activity/volume) 33 U/L 0-55 Serum or plasma protein measurement (mass/volume) 7.3 g/dL 6.4-8.2 Serum or plasma albumin measurement (mass/volume) 4.5 g/dL 3.2-4.5 CALCIUM CORRECTED 9.4 mg/dL 8.5-10.1 Lipid 1996 panel - 06/01/18 11:07 Serum or plasma triglyceride measurement (mass/volume) 82 mg/dL <150 Serum or plasma cholesterol measurement (mass/volume) 159 mg/dL < 200 Serum or plasma cholesterol in HDL measurement (mass/volume) 54 mg/dL 40-60 Cholesterol in LDL [mass/volume] in serum or plasma by direct assay 89 mg/dL 1-129 Serum or plasma cholesterol in VLDL measurement (mass/volume) 16 mg/dL 5-40 Methicillin resistant Staphylococcus aureus (MRSA) screening culture - 06/01/18 11:07 Methicillin resistant Staphylococcus aureus (MRSA) screening culture NEG [facility] Stool occult blood screen - 10/28/18 13:29 Stool gastrointestinal hemoglobin detection NEGATIVE NEGATIVE C DIFFICILE AG + TOXIN A/B. - 10/28/18 13:29 RESULTS NEGATIVE FOR ANTIGEN AND TOXIN A/B [facility] [id number] - 10/28/18 13:29 Stool bacteria identification by culture - 10/28/18 13:29 Complete blood count (CBC) with automated white blood cell (WBC) differential - 11/10/18 17:33 Blood leukocytes automated count (number/volume) 11.1 10*3/uL 4.3-11.0 Blood erythrocytes automated count (number/volume) 3.97 10*6/uL 4.35-5.85 Venous blood hemoglobin measurement (mass/volume) 11.6 g/dL 11.5-16.0 Blood hematocrit (volume fraction) 36 % 35-52 Automated erythrocyte mean corpuscular volume 91 [foz_us] 80-99 Automated erythrocyte mean corpuscular hemoglobin (mass per erythrocyte) 29 pg 25-34 Automated erythrocyte mean corpuscular hemoglobin concentration measurement (mass/volume) 32 g/dL 32-36 Automated erythrocyte distribution width ratio 13.3 % 10.0- 14.5 Automated blood platelet count (count/volume) 242 10*3/uL 130-400 Automated blood platelet mean volume measurement 9.9 [foz_us] 7.4-10.4 Automated blood neutrophils/100 leukocytes 73 % 42-75 Automated blood lymphocytes/100 leukocytes 17 % 12-44 Blood monocytes/100 leukocytes 9 % 0-12 Automated blood eosinophils/100 leukocytes 2 % 0-10 Automated blood basophils/100 leukocytes 0 % 0-10 Blood neutrophils automated count (number/volume) 8.0 10*3 1.8-7.8 Blood lymphocytes automated count (number/volume) 1.9 10*3 1.0-4.0 Blood monocytes automated count (number/volume) 1.0 10*3 0.0- 1.0 Automated eosinophil count 0.2 10*3/uL 0.0-0.3 Automated blood basophil count (count/volume) 0.0 10*3/uL 0.0-0.1 Comprehensive metabolic panel - 11/10/18 17:33 Serum or plasma sodium measurement (moles/volume) 136 mmol/L 135-145 Serum or plasma potassium measurement (moles/volume) 4.0 mmol/L 3.6-5.0 Serum or plasma chloride measurement (moles/volume) 103 mmol/L 98-107 Carbon dioxide 24 mmol/L 21-32 Serum or plasma anion gap determination (moles/volume) 9 mmol/L 5-14 Serum or plasma urea nitrogen measurement (mass/volume) 7 mg/dL 7-18 Serum or plasma creatinine measurement (mass/volume) 0.76 mg/dL 0.60-1.30 Serum or plasma urea nitrogen/creatinine mass ratio 9 NRG Serum or plasma creatinine measurement with calculation of estimated glomerular filtration rate > NRG Serum or plasma glucose measurement (mass/volume) 144 mg/dL 70-105 Serum or plasma calcium measurement (mass/volume) 9.4 mg/dL 8.5-10.1 Serum or plasma total bilirubin measurement (mass/volume) 0.3 mg/dL 0.1-1.0 Serum or plasma alkaline phosphatase measurement (enzymatic activity/volume) 78 U/L 40-136 Serum or plasma aspartate aminotransferase measurement (enzymatic activity/volume) 25 U/L 5-34 Serum or plasma alanine aminotransferase measurement (enzymatic activity/volume) 20 U/L 0-55 Serum or plasma protein measurement (mass/volume) 6.5 g/dL 6.4-8.2 Serum or plasma albumin measurement (mass/volume) 4.0 g/dL 3.2-4.5 CALCIUM CORRECTED 9.4 mg/dL 8.5-10.1 Encounters ACCT No. Visit Date/Time Discharge Status Pt. Type Provider Facility Loc./Unit Complaint [id number] 10/28/2018 13:23:00 10/28/2018 23:59:59 CLS Outpatient MARTA FINN MD [facility] LAB DIARRHEA [id number] 07/08/2018 13:20:00 07/08/2018 23:59:59 CLS Outpatient NIDA MADDOX MD [facility] RAD FATIGUE/GOITER [id number] 06/01/2018 10:28:00 06/01/2018 18:33:00 DIS Outpatient JORGE L IVERSON MD [facility] CATH ABN STRESS TEST, CP, HTN, HLP [id number] 05/23/2018 07:39:00 05/23/2018 23:59:59 CLS Outpatient JORGE L IVERSON MD [facility] CARD HTN,CAROTID ARTERY STENOSIS [id number] 05/20/2018 10:26:00 05/20/2018 23:59:59 CLS Outpatient JORGE L IVERSON MD [facility] CARD HTN,CAROTID ARTERY STENOSIS [id number] 05/06/2018 11:17:00 05/06/2018 23:59:59 CLS Outpatient NIDA MADDOX MD [facility] RAD DYSPHAGIA [id number] 04/01/2018 12:16:00 04/01/2018 15:25:00 DIS Outpatient NAKUL GONZALEZ APRN [facility] SDC UTI,FATIGUE,DEHYDRATION,MALAISE [id number] 03/28/2018 23:20:00 03/29/2018 03:42:00 DIS Emergency LACY NEW DO [facility] ER ELEVATED BP [id number] 03/22/2018 14:26:00 03/22/2018 23:59:59 CLS Outpatient MARTA FINN MD [facility] RAD ABN FINDINGS ON DX IMAGING OF OTHER BODY STRUCTURE [id number] 02/26/2018 12:24:00 02/26/2018 17:08:00 DIS Emergency BERNABE ZAMORANO MD [facility] ER HX OF TIA'S/PULSING IN HEAD/PAIN [id number] 02/19/2018 00:09:00 02/19/2018 23:59:59 CLS Preadmit MARTA FINN MD [facility] WELLNESS [id number] 02/08/2018 06:00:00 02/18/2018 00:01:00 DIS Outpatient MARTA FINN MD [facility] WELLNESS [id number] 01/05/2018 13:31:00 01/14/2018 00:01:00 DIS Outpatient MARTA FINN MD [facility] WELLNESS [id number] 11/23/2017 06:00:00 12/10/2017 00:01:00 DIS Outpatient MARTA FINN MD [facility] WELLNESS [id number] 11/03/2017 11:25:00 11/06/2017 00:01:00 DIS Outpatient MARTA FINN MD [facility] WELLNESS [id number] 10/04/2017 14:08:00 10/07/2017 00:01:00 DIS Outpatient MARTA FINN MD [facility] WELLNESS [id number] 10/05/2016 13:35:00 10/05/2016 23:59:59 CLS Outpatient NAKUL GONZALEZ APRN [facility] RAD HX OF TIA,DIZZINESS, LIGHTHEADEDNESS, HEADACHE [id number] 10/18/2015 07:11:00 10/18/2015 10:10:00 DIS Outpatient JERILYN NOBLE MD [facility] SDC SCREENING [id number] 10/16/2015 05:42:00 10/16/2015 11:54:00 DIS Outpatient JERILYN NOBLE MD [facility] PREOP SCREENING [id number] 09/20/2015 15:18:00 09/25/2015 13:12:00 DIS Outpatient SONIYA PATEL, MACIEL Umaznor [facility] REHAB B QUAD STRENGTHENING; KNEE DJD [id number] 12/04/2014 02:41:00 12/04/2014 04:20:00 DIS Emergency JONATHON PATEL, FANI Leon [facility] ER ABD PAIN,HANDS [place]INGLING,DIARRHEA,SWEATING,HRT POUN [id number] 11/10/2018 17:49:00 Document Registration
[2018-11-10] MEDS ORDERED: RX-ONDANSETRON 4 MG ODT (ZOFRAN) PPK #4 PO STA (20:02)
[2018-11-10] MEDS ORDERED: AUGMENTIN 875 MG TAB (AMOXICILLIN/CLAVULANATE) PO SCH (20:15)
[2018-11-10 20:25] VITALS: BP 179/86
[2018-11-11] MEDS ORDERED: TOBR5DRO13 OU (09:42)
[2018-11-11] MEDS ORDERED: SODI30SP2 NS (09:48)
[2018-11-11] MEDS ORDERED: PROP15DR OU (14:15)
[2018-11-14] MEDS ORDERED: METO-370 PO (09:10)
[2018-11-14] MEDS ORDERED: METR500T PO (09:11)
[2018-11-14] MEDS ORDERED: CIPR500T4 PO (09:11)
[2018-11-14] MEDS ORDERED: ONDA4TAB11 PO (09:11)
== END 2018-11-10 20:36 | disposition home or self-care (01) ==
LOC: EDUNIT# 17:16 → ER 17:17
DX: K57.32 Diverticulitis of large intestine without perforation or abscess without bleeding (principal); I10 Essential (primary) hypertension; K21.9 Gastro-esophageal reflux disease without esophagitis; E03.9 Hypothyroidism, unspecified; Z87.440 Personal history of urinary (tract) infections; Z86.73 Personal history of transient ischemic attack (TIA), and cerebral infarction without residual deficits; Z91.040 Latex allergy status; Z88.2 Allergy status to sulfonamides; Z79.82 Long term (current) use of aspirin; Z79.51 Long term (current) use of inhaled steroids; Z96.651 Presence of right artificial knee joint
CPT/HCPCS: 36415; 74177; 80053; 81000; 85025

== ENCOUNTER 2018-11-11 02:55 | Inpatient (IN) | payer MEDICARE, OTHER ==
[~2018-11-11] VITALS: Ht 160 cm; Wt 70.4 kg
[~2018-11-11 02:55] MED LIST changes: +AMOX-358 PO
[2018-11-11] MEDS ORDERED: LACTATED RINGERS 1,000 ML IV ONE (02:56)
[2018-11-11] MEDS ORDERED: ONDANSETRON 4 MG/2 ML (SDV) Z0FRAN IVP ONE (03:00)
[2018-11-11 03:27] LABS: BASOPHILS % (AUTO) 0 % (0-10); EOSINOPHILS # (AUTO) 0.1 10^3/uL (0.0-0.3); EOSINOPHILS % (AUTO) 1 % (0-10); HEMATOCRIT 40 % (35-52); HEMOGLOBIN 13.1 G/DL (11.5-16.0); LYMPHOCYTES # (AUTO) 0.9 X 10^3 (1.0-4.0); LYMPHOCYTES % (AUTO) 8 % (12-44); MEAN CORPUSCULAR HEMOGLOBIN 29 PG (25-34); MEAN CORPUSCULAR HGB CONC 33 G/DL (32-36); MEAN CORPUSCULAR VOLUME 90 FL (80-99); MEAN PLATELET VOLUME 10.1 FL (7.4-10.4); MONOCYTES # (AUTO) 1.2 X 10^3 (0.0-1.0); MONOCYTES % (AUTO) 10 % (0-12); NEUTROPHILS # (AUTO) 9.2 X 10^3 (1.8-7.8); NEUTROPHILS % (AUTO) 80 % (42-75); PLATELET COUNT 239 10^3/uL (130-400); RED CELL DISTRIBUTION WIDTH 13.6 % (10.0-14.5); WHITE BLOOD COUNT 11.5 10^3/uL (4.3-11.0)
[2018-11-11] MEDS ORDERED: DICYCLOMINE 10 MG/ML (BENTYL) 2 ML AMP IM ONE (03:30)
[2018-11-11] MEDS ORDERED: HYOSCYAMINE 0.125 MG (LEVSIN) TAB PO ONE (03:30)
[2018-11-11] MEDS ORDERED: fentaNYL INJECTION 100 MCG/2 ML AMP IVP ONE (03:30)
[2018-11-11 03:42] LABS: MAGNESIUM 1.8 MG/DL (1.8-2.4)
[2018-11-11] MEDS ORDERED: LOPERAMIDE 2 MG (IMODIUM) TABLET PO ONE (03:45)
[2018-11-11] MEDS ORDERED: SCOPOLAMINE 1.5 MG (TRANSDERM-SCOP) PATCH TD ONE (03:45)
[2018-11-11 03:47] LABS: ALANINE AMINOTRANSFERASE 22 U/L (0-55); ALBUMIN 4.3 GM/DL (3.2-4.5); ALKALINE PHOSPHATASE 86 U/L (40-136); BILIRUBIN,TOTAL 0.5 MG/DL (0.1-1.0); BUN/CREATININE RATIO 10; CALCIUM 9.9 MG/DL (8.5-10.1); CARBON DIOXIDE 21 MMOL/L (21-32); CHLORIDE 103 MMOL/L (98-107); CREATININE SERUM 0.84 MG/DL (0.60-1.30); GFR ESTIMATED > 60; GLUCOSE 148 MG/DL (70-105); POTASSIUM 3.7 MMOL/L (3.6-5.0); SODIUM 138 MMOL/L (135-145); TOTAL PROTEIN 7.1 GM/DL (6.4-8.2)
[2018-11-11] MEDS ORDERED: CIPROFLOXACIN IV 400MG/200ML 200 ML IV ONE (04:00)
--- NOTE | 2018-11-11 04:09 | ED GI ---
General Chief Complaint: Abdominal/GI Problems Stated Complaint: ABD PAIN,N/V/D Source of Information: Patient, EMS, Old Records History of Present Illness Date Seen by Provider: Nov 11, 2018 Time Seen by Provider: 02:56 Initial Comments PT ARRIVES VIA EMS FROM HOME, WITH FAMILY ARRIVING VIA POV PT WAS SEEN IN ER EARLIER THIS EVENING AND DX WITH DIVERTICULITIS AND WAS DISMISSED TO HOME WITH RX'S FOR ZOFRAN AND AUGMENTIN--PRESCRIBED DUE TO PT'S VERY EXTENSIVE LIST OF MEDICATIONS THAT SHE HAS HAD REPORTED ADVERSE REACTIONS TO. PT STATES SHE "CAN'T KEEP ANYTHING DOWN" AND HAS "THROWN UP "UMPTEEN" TIMES" -- TOOK A ZOFRAN AT 2330 WITHOUT RELIEF. STATES SHE HAS ALSO HAD "OVER 15" BM'S SINCE SHE WAS DISMISSED FROM HERE EARLIER. NO BLACK/BLOODY/TARRY STOOLS PT C/O GENERALIZED ABDOMINAL PAIN STATES SHE HAD FEVER OF "102" AND SWEATS JUST PRIOR TO ARRIVAL, BUT DID NOT TAKE ANY TYLENOL OR MOTRIN BECAUSE SHE COULDN'T KEEP IT DOWN PT HAS CONTINUED TO URINATE A NORMAL AMOUNT PCP: DR. FINN Allergies and Home Medications Allergies Coded Allergies: latex (Verified Allergy, Mild, RASH, 06/01/18) Sulfa (Sulfonamide Antibiotics) (Verified Allergy, Unknown, 12/04/14) Home Medications Acetaminophen 650 Mg Tablet.er, 1,300 MG PO Q8H PRN for PAIN-MILD, (Reported) TAKES 2 (650MG) TABLETS Amoxicillin/Potassium Clav 1 Each Tablet, 1 EACH PO BID Prescribed by: RICK NUNEZ on 11/10/181999 Aspirin 81 Mg Tablet.dr, 81 MG PO DAILY, (Reported) Diazepam 2 Mg Tablet, 2 MG PO HS, (Reported) Fluticasone Propionate 9.9 Ml [place].susp, 2 SPRAYS NS DAILY PRN for ALLERGIES, (Reported) Glucosam/Chond/Hyalu/Cf Borate 1 Each Tablet, 1 TAB PO HS, (Reported) L.acidoph & Paracasei,B.lactis 1 Each Capsule, 1 CAP PO DAILY, (Reported) Levocetirizine Dihydrochloride 5 Mg Tablet, 5 MG PO DAILY, (Reported) Levothyroxine Sodium 88 Mcg Tablet, 88 MCG PO 0300, (Reported) Lisinopril 20 Mg Tablet, 40 MG PO DAILY, (Reported) TAKES 2 (20MG) TABLETS Metoprolol Succinate 50 Mg Tab.er.24h, 50 MG PO DAILY, (Reported) Omeprazole Magnesium 20 Mg Tablet.dr, 20 MG PO DAILY, (Reported) Pravastatin Sodium 80 Mg Tablet, 80 MG PO HS, (Reported) Vitamin B Complex 1 Each Capsule, 1 CAP PO DAILY, (Reported) [Super D Immune] , 1 CAP PO DAILY, (Reported) VITAMIN A 2300 IU MAGNESIUM 250MG VITAMIN D3 4000IU ZINC 5MG [Waterex] , 1 TAB PO BID, (Reported) VITAMIN B6 MAGNESIUM OXIDE POTASSIUM Patient Home Medication List Home Medication List Reviewed: Yes Review of Systems Review of Systems Constitutional: see HPI, diaphoresis, fever, malaise, weakness Respiratory: No Symptoms Reported Cardiovascular: No Symptoms Reported Gastrointestinal: See HPI, Abdominal Pain, Diarrhea, Nausea, Poor Appetite, Poor Fluid Intake, Vomiting Genitourinary: No Symptoms Reported Musculoskeletal: no symptoms reported Psychiatric/Neurological: No Symptoms Reported Endocrine: No Symptoms Reported Past Wqrwocf-Ciuuwa-Tmjyib Hx Patient Social History Alcohol Use: Occasionally Uses Alcohol Beverage of Choice: Wine Recreational Drug Use: No Smoking Status: Never a Smoker 2nd Hand Smoke Exposure: No Recent Foreign Travel: No Contact w/Someone Who Travel: No Immunizations Up To Date PED Vaccines UTD: Yes Date of Pneumonia Vaccine: May 20, 2011 Date of Influenza Vaccine: Jan 29, 2018 Past Medical History Surgeries: Yes (RIGHT TOTAL KNEE REPLACEMENT; RIGHT KNEE SCOPE; BILATERAL CATARACTS; BUNIONECTOMY; REMOVAL OF SKIN CANCER; SCREENING COLONOSCOPY 10/2015; CARDIAC CATH 06/01/18--NO INTERVENTION ) Cardiac, Joint Replacement, Orthopedic Respiratory: No Cardiac: Yes (CAROTID STENOSIS; PFO; CARDIAC CATH 06/01/18--MILD DISEASE, NO INTERVENTION) High Cholesterol, Hypertension Neurological: Yes TIA, Vertigo 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 Genitourinary: Yes UTI-Chronic Gastrointestinal: Yes (ACUTE DIVERTICULITIS 11/10/18) Gastroesophageal Reflux, Diverticulosis Musculoskeletal: Yes (RIGHT KNEE SCOPE AND REPLACEMENT) Arthritis Endocrine: Yes Hypothyroidsim HEENT: Yes (BILATERAL CATARACT SURGERY) Cataract Cancer: Yes Skin Did You Recieve Any Treatments: Yes What Type of Treatment Did You: Surgical Intervention Psychosocial: Yes Anxiety Integumentary: No Blood Disorders: No Adverse Reaction/Blood Tranf: No Physical Exam Vital Signs Vital Signs - First Documented 11/11/18 03:49 Pulse Ox 99 O2 Delivery Room Air O2 Flow Rate 3.00 Capillary Refill : Height/Weight/BMI Height: 5'3.00" Weight: 145lbs. 0oz. 65.163135mw; 25.7 BMI Method:Actual General Appearance: WD/WN, no apparent distress, other (SOMEWHAT DRAMATIC ON ARRIVAL, AND MAKING MULTITUDE OF DEMANDS SOON SHE ARRIVES.) HEENT: PERRL/EOMI, other (ORAL MUCOSA MOIST) Respiratory: normal breath sounds, no respiratory distress, no accessory muscle use Cardiovascular: regular rate, rhythm, no murmur Gastrointestinal: soft, abnormal bowel sounds (DECREASED); No distended, No guarding, No rebound; tenderness (DIFFUSE TENDERNESS, BUT MOST TENDER IN MID / LOWER AND LLQ AREAS); No hernia, No mass Extremities: normal inspection, no pedal edema, normal capillary refill Back: normal inspection, no CVA tenderness Neurologic/Psychiatric: 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 estate specialist II-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 nml as tested, no motor/sensory deficits, alert, oriented x 3 Skin: normal color, warm/dry Focused Exam Lactate Level 11/11/18 03:05: Lactic Acid Level 1.27 Lactic Acid Level Laboratory Tests Test 11/11/18 03:05 Lactic Acid Level 1.27 MMOL/L (0.50-2.00) Progress/Results/Core Measures Results/Orders Lab Results Laboratory Tests Test 11/11/18 03:05 Range/Units White Blood Count 11.5 H 4.3-11.0 10^3/uL Red Blood Count 4.49 4.35-5.85 10^6/uL Hemoglobin 13.1 11.5-16.0 G/DL Hematocrit 40 35-52 % Mean Corpuscular Volume 90 80-99 FL Mean Corpuscular Hemoglobin 29 25-34 PG Mean Corpuscular Hemoglobin Concent 33 32-36 G/DL Red Cell Distribution Width 13.6 10.0-14.5 % Platelet Count 239 130-400 10^3/uL Mean Platelet Volume 10.1 7.4-10.4 FL Neutrophils (%) (Auto) 80 H 42-75 % Lymphocytes (%) (Auto) 8 L 12-44 % Monocytes (%) (Auto) 10 0-12 % Eosinophils (%) (Auto) 1 0-10 % Basophils (%) (Auto) 0 0-10 % Neutrophils # (Auto) 9.2 H 1.8-7.8 X 10^3 Lymphocytes # (Auto) 0.9 L 1.0-4.0 X 10^3 Monocytes # (Auto) 1.2 H 0.0-1.0 X 10^3 Eosinophils # (Auto) 0.1 0.0-0.3 10^3/uL Basophils # (Auto) 0.0 0.0-0.1 10^3/uL Sodium Level 138 135-145 MMOL/L Potassium Level 3.7 3.6-5.0 MMOL/L Chloride Level 103 98-107 MMOL/L Carbon Dioxide Level 21 21-32 MMOL/L Anion Gap 14 5-14 MMOL/L Blood Urea Nitrogen 8 7-18 MG/DL Creatinine 0.84 0.60-1.30 MG/DL Estimat Glomerular Filtration Rate > 60 BUN/Creatinine Ratio 10 Glucose Level 148 H 70-105 MG/DL Lactic Acid Level 1.27 0.50-2.00 MMOL/L Calcium Level 9.9 8.5-10.1 MG/DL Corrected Calcium 9.7 8.5-10.1 MG/DL Magnesium Level 1.8 1.8-2.4 MG/DL Total Bilirubin 0.5 0.1-1.0 MG/DL Aspartate Amino Transf (AST/SGOT) 29 5-34 U/L Alanine Aminotransferase (ALT/SGPT) 22 0-55 U/L Alkaline Phosphatase 86 40-136 U/L Total Protein 7.1 6.4-8.2 GM/DL Albumin 4.3 3.2-4.5 GM/DL Amylase Level 57 25-125 U/L Lipase 13 8-78 U/L My Orders Orders - LACY NEW DO Ed Iv/Invasive Line Start (11/11/18 02:56) Monitor-Rhythm Ecg Trace Only (11/11/18 02:56) Cbc With Automated Diff (11/11/18 02:56) Ondansetron Injection (Zofran Injectio (11/11/18 03:00) Ed Iv/Invasive Line Start (11/11/18 02:56) Lactated Ringers (Lr 1000 Ml Iv Solution (11/11/18 02:56) Amylase (11/11/18 03:05) Lactic Acid Analyzer (11/11/18 03:05) Lipase (11/11/18 03:05) Magnesium (11/11/18 03:05) Blood Culture (11/11/18 03:05) Orthostatic Vital Signs (Adult (11/11/18 03:05) Stool Culture (11/11/18 03:22) Fecal Wbc (11/11/18 03:22) C Difficile Ag + Toxin A/B. (11/11/18 03:22) Hyoscyamine Sl Tablet (Levsin Sl Tablet) (11/11/18 03:30) Dicyclomine Injection (Bentyl Injection) (11/11/18 03:30) Fentanyl Injection (Sublimaze Injection (11/11/18 03:30) Comprehensive Metabolic Panel (11/11/18 03:28) Scopolamine Patch (Transderm-Scop Patch) (11/11/18 03:45) Loperamide Tablet (Imodium Tablet) (11/11/18 03:45) Medications Given in ED Current Medications Medications Dose Ordered Sig/Nataliia Route Start Time Stop Time Status Last Admin Dose Admin Dicyclomine HCl 20 mg ONCE ONCE IM 11/11/18 03:30 11/11/18 03:31 DC 11/11/18 03:40 20 MG Fentanyl Citrate 50 mcg ONCE ONCE IVP 11/11/18 03:30 11/11/18 03:31 DC 11/11/18 03:42 50 MCG Hyoscyamine Sulfate 0.25 mg ONCE ONCE PO 11/11/18 03:30 11/11/18 03:31 DC 11/11/18 03:41 0.25 MG Lactated Ringer's 1,000 ml @ 0 mls/hr Q0M ONCE IV 11/11/18 02:56 11/11/18 02:59 DC 11/11/18 03:30 1,000 MLS/HR Loperamide HCl 4 mg ONCE ONCE PO 11/11/18 03:45 11/11/18 03:46 DC 11/11/18 03:48 4 MG Ondansetron HCl 8 mg ONCE ONCE IVP 11/11/18 03:00 11/11/18 03:01 DC 11/11/18 03:30 8 MG Scopolamine 1.5 mg ONCE ONCE TD 11/11/18 03:45 11/11/18 03:46 DC 11/11/18 03:48 1.5 MG Vital Signs/I&O 11/11/18 03:49 Pulse Ox 99 O2 Delivery Room Air O2 Flow Rate 3.00 Progress Progress Note : Progress Note DRAMATIC AND MAKING MULTIPLE DEMANDS SOON SHE ARRIVES PT WITH MULTIPLE, BUT VERY SMALL BM'S DURING ER STAY NO VOMITING DURING ER STAY AND NAUSEA IMPROVED WITH MEDICATIONS PAIN IMPROVED WITH MEDICATIONS NO FEVER DURING ER STAY NO DETERIORATION IN PT'S CONDITION DURING ER STAY Departure Communication (PCP) [phone]--SPOKE WITH DR. FINN, ACCEPTS PT FOR ADMIT/OBSERVATION Impression Primary Impression: Diverticulitis Additional Impressions: Intractable abdominal pain INTRACTABLE NAUSEA, VOMITING AND DIARRHEA Disposition: ADMITTED INPATIENT Condition: Stable Admissions Decision to Admit Reason: Admit from ER (General) Decision to Admit/Date: Nov 11, 2018 Time/Decision to Admit Time: 03:50 Departure-Patient Inst. Referrals: MARTA FINN MD (PCP/Family) Primary Care Physician LACY NEW DO Nov 11, 2018 04:09
--- OUTSIDE RECORDS SUMMARY | 2018-11-11 04:12 | XMS REPORT | Encounter Summary ---
Author Author [facility] Organization [facility] Address Unknown Phone Unavailable Care Team Providers Care Special Events Driver Name Role Phone Ange Frazier MD PCP Reason for Visit * Reason Comments Other Encounter Details Care Team Description Date Type Department nAge Frazier MD [address] [id number] Other 06/06/2015 Refill [facility] - [address] [address] Social History Date Tobacco Use Types Packs/Day [...] - Dorota Pardo - 06/10/2015 6:10 PM DIRECTOR OF OPTIMIZATION Pt transferred care to a PCP in [place], [place] where she now lives-will notify otilia torres CTOR OF OPTIMIZATION * Telephone Encounter - Danelle Guillen NP - 06/06/2015 1:19 PM DIRECTOR OF OPTIMIZATION Patient needs to schedule with new provider CTOR OF OPTIMIZATION documented in this encounter Plan of Treatment Not on filedocumented as of this encounter Visit Diagnoses Not on filedocumented in this encounter
--- OUTSIDE RECORDS SUMMARY | 2018-11-11 04:12 | XMS REPORT | Encounter Summary ---
Author Author [facility] Organization [facility] Address Unknown Phone Unavailable Care Team Providers Care Shellfish Grower Name Role Phone Ange Frazier MD PCP Reason for Visit * Reason Comments Medication Refill Encounter Details Care Team Description Date Type Department Ange Frazier MD [address] [id number] Medication Refill 01/23/2015 Refill [facility] Primary Care [address] [address] Social History Date Tobacco Use Types Packs/Day [...]
--- OUTSIDE RECORDS SUMMARY | 2018-11-11 04:12 | XMS REPORT | Clinical Summary ---
Author Author [facility] Organization [facility] Address Unknown Phone Unavailable Care Team Providers Care Section Leader And Machine Setter Name Role Phone Ange Frazier MD [...] Lot Implanted Type Area Manufactur er 05/20/2015 [id number] / / [id number] Implant Cement Bone [place] G-Hv Non-Tissue Right: Knee BIOMET W/Gentamicin Antibiotic 40gr [id number] Implant (Thicker Than [id number] Pmm# [id number]) - [id number] Implanted: Qty: 1 on 11/07/2013 at [facility] 05/20/2015 [id number] / / [id number] Implant Cement Bone [place] G-Hv Non-Tissue Right: Knee BIOMET W/Gentamicin Antibiotic 40gr [id number] Implant (Thicker Than [id number] Pmm# [id number]) - [id number] Implanted: Qty: 1 on 11/07/2013 by Cuate Mcdonnell DO at [facility] 06/18/2023 / / [id number] Aesculap Vargas As Fabricio Femur Non-Tissue Right: Knee Aesculap Miguelito. Size 62,5mm X 43,5 Mm Right F4 Implant R Implanted: Qty: 1 on 11/07/2013 by Cuate Mcdonnell DO at [facility] 06/18/2023 / / [id number] Vargas As Obturator Screw 0 12mm X Non-Tissue Right: Knee AESCULAP 7mm Implant ORTHO Implanted: Qty: 1 on 11/07/2013 by Cuate Mcdonnell DO at [facility] 06/17/2018 / / [id number] Vargas Fabricio Patella P2 0 30 Mm X Non-Tissue Right: Knee AESCULAP 8 Mm Implant ORTHO Implanted: Qty: 1 on 11/07/2013 by Cuate Mcdonnell DO at [facility] 04/19/2023 / / [id number] Vargas As Fabricio Cr/Ps Tibial Non-Tissue Right: Knee AESCULAP Plateau 75 Mm X 48mm T3 Implant ORTHO Implanted: Qty: 1 on 11/07/2013 by Cuate Mcdonnell DO at [facility] 07/18/2018 / / [id number] Vargas [place] Gliding Surface Non-Tissue Right: Knee AESCULAP T3/T3 + X 10 Mm Implant ORTHO Implanted: Qty: 1 on 11/07/2013 by Cuate Mcdonnell DO at [facility] Lens Implanted: (Quantity not on file) Explanted: (Quantity not on file) Results Not on filefrom Last 3 Months Advance Directives Date Inactivated Comments Code Status Date Activated 12/20/2013 1:01 PM Full Code 12/19/2013 5:32 PM 11/10/2013 2:05 PM Full Code 11/07/2013 2:12 PM 11/07/2013 2:12 PM Full Code 11/07/2013 8:40 AM
--- OUTSIDE RECORDS SUMMARY | 2018-11-11 04:13 | XMS REPORT | Encounter Summary ---
Author Author [facility] Organization [facility] Address Unknown Phone Unavailable Care Team Providers Care Operations Technician Name Role Phone Ange Frazier MD PCP Encounter Details Care Team Description Date Type Department Oseas Martins MD [address] [address] 10/16/2014 [facility] - [facility] Visit Social History [...] Martins MD - 10/16/2014 2:30 PM CDT [facility] Office [address] [place] [address] October 16, 2014 Ange Frazier MD [address] [address] RE: PAMELA VÁSQUEZ : 1940 Chart #: [id number] Visit provider: Oseas Martins M.D. Visit location: [facility] Dear Dr. Frazier: I had the pleasure of seeing PAMELA VÁSQUEZ in the office today. She is 73 years o f age and presents with the following chief complaints: congenital heart diseas e, hypertension. HPI: The patient is here for her annual checkup. She is now 73 and mentions that she is planning to move to [place] to be closer to her family. I [...] heart block or pauses 02/03/2012 Congenital heart [id number] 05/17/2012 COR SPECT Exertional chest pain leading [...] the following exceptions: Cardiovascular: Swelling of ankles/legs /PAYROLL BENEFITS ADMINISTRATOR: Postmenopausal Musculoskeletal/Dermatology: Myalgias, Arthralgias Hematology: Bleed or [...] believe she will need to see a landcare officer when she moves to [facility]. We would be happy to see [...] Oseas Martins M.D. DLS/aps/lh/ct cc: Pamela Vásquez [address] [address] F: 10/23/2014 documented in this encounter Plan of Treatment Not on filedocumented as of this encounter Visit Diagnoses Not on filedocumented in this encounter
--- OUTSIDE RECORDS SUMMARY | 2018-11-11 04:13 | XMS REPORT | Encounter Summary ---
Author Author [facility] Organization [facility] Address Unknown Phone Unavailable Care Team Providers Care Director Of Sports Medicine Name Role Phone Ange Frazier MD PCP Reason for Visit * Reason Comments Medication Refill Encounter Details Care Team Description Date Type Department Ange Frazier MD [address] [id number] Medication Refill 12/04/2014 Refill [facility] Primary Care [address] [address] Social History Date Tobacco Use Types Packs/Day [...]
--- OUTSIDE RECORDS SUMMARY | 2018-11-11 04:13 | XMS REPORT | Encounter Summary ---
Author Author [facility] Organization [facility] Address Unknown Phone Unavailable Care Team Providers Care Roofing Tile Sorter Name Role Phone Ange Frazier MD PCP Encounter Details Care Team Description Date Type Department Ange Frazier MD [address] [address] 07/16/2014 Hist-Appointmen [facility] [...]
--- OUTSIDE RECORDS SUMMARY | 2018-11-11 04:13 | XMS REPORT | Encounter Summary ---
Author Author [facility] Organization [facility] Address Unknown Phone Unavailable Care Team Providers Care Button Broacher Name Role Phone Ange Frazier MD PCP Encounter Details Care Team Description Date Type Department Presley Brambila MD [address] [facility] [address] [place] [address] [phone] 11/01/2014 [facility] - [facility] Visit Social History [...]
--- OUTSIDE RECORDS SUMMARY | 2018-11-11 04:13 | XMS REPORT | Encounter Summary ---
Author Author [facility] Organization [facility] Address Unknown Phone Unavailable Care Team Providers Care Blower Insulator Name Role Phone Ange Frazier MD PCP Encounter Details Care Team Description Date Type Department Ange Frazier MD [address] [address] 09/18/2014 Hist-Appointmen [facility] [...]
--- OUTSIDE RECORDS SUMMARY | 2018-11-11 04:13 | XMS REPORT | Encounter Summary ---
Author Author [facility] Organization [facility] Address Unknown Phone Unavailable Care Team Providers Care Channel Machine Operator Name Role Phone Ange Frazier MD PCP Encounter Details Care Team Description Date Type [place] [address] [facility] [address] [place] [address] [phone] 08/31/2014 [facility] - [facility] Visit Social History [...]
--- OUTSIDE RECORDS SUMMARY | 2018-11-11 04:13 | XMS REPORT | Encounter Summary ---
Author Author [facility] Organization [facility] Address Unknown Phone Unavailable Care Team Providers Care Belt Puncher Name Role Phone Ange Frazier MD PCP Encounter Details Care Team Description Date Type Department Oseas Martins MD [facility] [address] [address] 10/12/2014 [facility] [...]
--- OUTSIDE RECORDS SUMMARY | 2018-11-11 04:13 | XMS REPORT | Encounter Summary ---
Author Author [facility] Organization [facility] Address Unknown Phone Unavailable Care Team Providers Care Chief Environmental Commitment Officer Name Role Phone Ange Frazier MD PCP Encounter Details Care Team Description Date Type Department Oseas Martins MD [address] [phone] 10/10/2014 [facility] - Hist [facility] Visit Social History [...] of Information RE: PAMELA VÁSQUEZ : 1940 [facility] is requesting protected health informat ion from: Dr. Ange Farzier / MEDICAL RECORDS Purpose: Continuation of care Please release records to the following [facility] Office: [facility] Office [address] [place] [address] Fax to : Attention : Chart Lay Out Machine Operator / Gissell Please send the following: Most recent office visit letter, EKG, labs, including cholesterol, any cardiac t esting and/ or procedures, and most recent medication list. PATIENT HAS APPT 10/16 AT 1:[address] MARTINS. PLEASE FAX RECORDS TO . Thank you for your prompt attention to [...]
--- OUTSIDE RECORDS SUMMARY | 2018-11-11 04:13 | XMS REPORT | Encounter Summary ---
Author Author [facility] Organization [facility] Address Unknown Phone Unavailable Care Team Providers Care Fruit Culler Name Role Phone Ange Frazier MD PCP Encounter Details Care Team Description Date Type Department Oseas Martins MD [address] [address] 10/03/2014 [facility] [...]
--- OUTSIDE RECORDS SUMMARY | 2018-11-11 04:13 | XMS REPORT | Encounter Summary ---
Author Author [facility] Organization [facility] Address Unknown Phone Unavailable Care Team Providers Care Professional Engineer Name Role Phone Ange Frazier MD PCP Encounter Details Care Team Description Date Type Department Oseas Martins MD [facility] [address] [address] 10/31/2014 [facility] Visit Social History [...]
--- OUTSIDE RECORDS SUMMARY | 2018-11-11 04:13 | XMS REPORT | Encounter Summary ---
Author Author [facility] Organization [facility] Address Unknown Phone Unavailable Care Team Providers Care Member Service Specialist Name Role Phone Ange Frazier MD PCP Encounter Details Care Team Description Date Type Department Ange Frazier MD [address] [address] 07/16/2014 [facility] Encounter [address] [place], [place] [phone] Social History Date Tobacco Use Types Packs/Day [...] CDT) Thyroid 0.84 0.47 - 4.68 uIU/mL [facility] Hormone LABORATORIES Specimen Performing Organization Address City/State/Zipcode Phone Number [facility] [address] [place] [address] LABORATORIES * Comprehensive Metabolic (07/16/2014 9:44 AM CDT) Sodium 144 133 - 147 MEQ/L [facility] LABORATORIES Potassium 5.1 3.5 - 5.3 MEQ/L [facility] Chloride 106 96 - 112 MEQ/L [facility] Carbon Dioxide 29 20 - 32 MEQ/L [facility] Anion Gap 10 5 - 17 [facility] Calcium 10.3 8.4 - 10.5 mg/dL [facility] Protein Total 6.4 6.0 - 8.2 g/dL [facility] Serum [facility] LABORATORIES Albumin 4.1 3.5 - 5.0 g/dL [facility] Alkaline 97 42 - 140 IU/L [facility] Phosphatase [facility] LABORATORIES Alanine 33 13 - 69 IU/L [facility] Aminotransferas [facility] e LABORATORIES Aspartate 25 15 - 46 IU/L [facility] Aminotransferas [facility] e LABORATORIES Bilirubin Total 0.4 0.2 - 1.3 mg/dL [facility] Blood Urea 10 7 - 26 mg/dL [facility] Nitrogen [facility] Creatinine 0.6 0.4 - 1.1 mg/dL [facility] eGFR Female AA 118Comment: Chronic Kidney 60 - 200 [facility] Disease less than 60 REGIONAL mL/min/1.73 sq.m [facility] LABORATORIES failure less than 15 mL/min/1.73 sq.m eGFR Female 98Comment: Chronic Kidney 60 - 200 [facility] Non-AA Disease less than 60 REGIONAL mL/min/1.73 sq.m [facility] LABORATORIES failure less than 15 mL/min/1.73 sq.m Specimen Performing Organization Address City[facility] Phone Number [address] [phone] LABORATORIES * Creatine Kinase (07/16/2014 9:44 AM CDT) Creatine Kinase 57Comment: White Female: IU/L [facility] 30 - 160 IU/L Black Female: [facility] 30 - 430 IU/L White Male: LABORATORIES 40 - 425 IU/L Black Male: 50 - 850 IU/L Specimen Performing Organization Address [facility] Phone Number [address] [phone] LABORATORIES * Lipid Panel (07/16/2014 9:44 AM CDT) Cholesterol 140 100 - 200 mg/dL [facility] LABORATORIES HDL Cholesterol 42 40 - 110 mg/dL [facility] Non-HDL 98 0 - 130 mg/dL [facility] REGIONAL LABORATORIES Triglycerides 103 0 - 150 mg/dL [facility] LDL Cholesterol 77 0 - 99 mg/dL [facility] Cholesterol/HDL 3.3 0.0 - 4.5 [facility] Ratio [facility]AL LABORATORIES HPP 12 [facility] LABORATORIES Specimen Performing Organization Address [facility] Phone Number [address] [address] LABORATORIES * T4 Free (07/16/2014 9:44 AM CDT) T4 Free 1.4 0.8 - 2.2 ng/dL [facility] Specimen Performing Organization Address [facility] Phone Number [address] [address] LABORATORIES * Vitamin D, 25-Hydroxy (07/16/2014 9:44 AM CDT) Vitamin D 78Comment: Vitamin D ng/mL [facility] 25-Hydroxy 25-Hydroxy:Severe deficiency REGIONAL < 13 ng/mLMild LABORATORIES to moderate deficiency 13 - 24 ng/mLOptimum level 25 - 80 ng/mLToxicity possible >80 ng/mL Specimen Performing Organization Address City/[facility]/Zipcode Phone Number [address] [phone] LABORATORIES * Glucose (07/16/2014 9:44 AM CDT) Glucose 100 70 - 100 mg/dL [facility] Specimen Performing Organization Address [facility] Phone Number [address] [address] LABORATORIES * CBC and Diff (manual diff if necessary) (07/16/2014 9:44 AM CDT) WBC 6.49 4.00 - 11.00 TH/uL [facility] RBC 4.17 4.00 - 5.00 MIL/uL [facility] Hemoglobin 12.5 12.0 - 15.0 g/dL [facility] Hematocrit 39 36 - 45 % [facility] MCV 93 80 - 99 fL [facility] MCH 30 27 - 34 pg [facility] MCHC 32 32 - 36 % [facility] RDW 12.6 9.0 - 14.5 % [facility] Platelet Count 245 140 - 400 TH/uL [facility] MPV 11.2 9.4 - 12.3 fL [facility] Nucleated RBCs 0 0 - 0 /100 [facility] % Neutrophils 52 45 - 78 % [facility] %Lymphocytes 34 15 - 47 % [facility] %Monocytes 7 0 - 12 % [facility] %Eosinophils 5 0 - 7 % [facility] %Basophils 2 0 - 2 % [facility] % Imm Grans 0 0 - 1 % [facility] LABORATORIES # Granulocytes 3.41 1.70 - 6.80 TH/uL [facility] LABORATORIES # Lymphocytes 2.23 1.00 - 3.30 TH/uL [facility] LABORATORIES # Monocytes 0.45 0.20 - 0.90 TH/uL [facility] LABORATORIES # Eosinophils 0.30 0.00 - 0.40 TH/uL [facility] LABORATORIES # Basophils 0.10 0.00 - 0.10 TH/uL [facility] LABORATORIES Specimen Performing Organization Address City/State/Zipcode Phone Number [facility] [address] [place] [address] LABORATORIES documented in this encounter Visit Diagnoses Not on filedocumented in this encounter
--- OUTSIDE RECORDS SUMMARY | 2018-11-11 04:13 | XMS REPORT | Encounter Summary ---
Author Author [facility] Organization [facility] Address Unknown Phone Unavailable Care Team Providers Care Environmental Services Assistant Name Role Phone Ange Frazier MD PCP Encounter Details Care Team Description Date Type Department Maynor Meng MD [address] [facility] [address] [place] [address] [phone] 08/27/2014 [facility] Visit Social History [...]
--- OUTSIDE RECORDS SUMMARY | 2018-11-11 04:14 | XMS REPORT | Encounter Summary ---
Author Author [facility] Organization [facility] Address Unknown Phone Unavailable Care Team Providers Care Operations Systems Specialist Name Role Phone Ange Frazier MD PCP Encounter Details Care Team Description Date Type Department Ange Frazier MD [address] [address] 03/05/2014 [facility] Encounter [address] [place], [place] [phone] Social History Date Tobacco Use Types Packs/Day [...] Associated Diagnosis LAB SUMMARY 03/06/2014 7:15 AM SENIOR SHAREPOINT ARCHITECT GLUCOSE Routine 03/05/2014 2:57 PM SENIOR SHAREPOINT ARCHITECT COMPREHENSIVE METABOLIC Routine 03/05/2014 2:57 PM SENIOR SHAREPOINT ARCHITECT URIC ACID Routine 03/05/2014 2:57 PM SENIOR SHAREPOINT ARCHITECT documented in this encounter Results * LAB SUMMARY (03/06/2014 7:15 AM SENIOR SHAREPOINT ARCHITECT) Narrative Performed At Ordered by an unspecified provider. * Glucose (03/05/2014 2:57 PM SENIOR SHAREPOINT ARCHITECT) Glucose 92 70 - 100 mg/dL [facility] Specimen Blood Performing Organization Address City/State/Zipcode Phone Number [facility] [address] [place] [address] LABORATORIES * Uric Acid (03/05/2014 2:57 PM SENIOR SHAREPOINT ARCHITECT) Uric Acid 5.3 2.5 - 7.0 mg/dL [facility] LABORATORIES Specimen Blood Performing Organization Address City/State/Zipcode Phone Number [facility] [address] [place] [address] LABORATORIES * Comprehensive Metabolic (03/05/2014 2:57 PM SENIOR SHAREPOINT ARCHITECT) Sodium 141 133 - 147 MEQ/L [facility] Potassium 5.7 (H) 3.5 - 5.3 MEQ/L [facility] Chloride 100 96 - 112 MEQ/L [facility] Carbon Dioxide 28 20 - 32 MEQ/L [facility] Anion Gap 12 5 - 17 [facility] Calcium 10.1 8.4 - 10.5 mg/dL [facility] Protein Total 6.9 6.0 - 8.2 g/dL [facility] Serum REGIONAL LABORATORIES Albumin 4.2 3.5 - 5.0 g/dL [facility] Alkaline 103 42 - 140 IU/L [facility] Phosphatase REG[facility]AL LABORATORIES Alanine 29 13 - 69 IU/L [facility] Aminotransferas REGIONAL e LABORATORIES Aspartate 28 15 - 46 IU/L [facility] Aminotransferas REGIONAL e LABORATORIES Bilirubin Total 0.3 0.2 - 1.3 mg/dL [facility] Blood Urea 14 7 - 26 mg/dL [facility] Nitrogen REG[facility]AL LABORATORIES Creatinine 0.7 0.4 - 1.1 mg/dL [facility] eGFR Female AA 99Comment: Chronic Kidney 60 - 200 [facility] Disease less than 60 REGIONAL mL/min/1.73 sq.m Kidney LABORATORIES failure less than 15 mL/min/1.73 sq.m eGFR Female 82Comment: Chronic Kidney 60 - 200 [facility] Non-AA Disease less than 60 REGIONAL mL/min/1.73 sq.m Kidney LABORATORIES failure less than 15 mL/min/1.73 sq.m Specimen Blood Performing Organization Address City/State/Zipcode Phone Number [address] [address] LABORATORIES documented in this encounter Visit Diagnoses Not on filedocumented in this encounter
--- OUTSIDE RECORDS SUMMARY | 2018-11-11 04:14 | XMS REPORT | Encounter Summary ---
Author Author [facility] Organization [facility] Address Unknown Phone Unavailable Care Team Providers Care Honey Liquefier Name Role Phone Ange Frazier MD PCP Encounter Details Care Team Description Date Type Department Ange Frazier MD [address] [address] 03/07/2014 [facility] Encounter [address] [place], [place] [phone] Social History Date Tobacco Use Types Packs/Day [...] Associated Diagnosis LAB SUMMARY 03/08/2014 6:55 AM PRIMER INSERTING MACHINE ADJUSTER POTASSIUM Routine 03/07/2014 3:28 PM PRIMER INSERTING MACHINE ADJUSTER documented in this encounter Results * LAB SUMMARY (03/08/2014 6:55 AM PRIMER INSERTING MACHINE ADJUSTER) Narrative Performed At Ordered by an unspecified provider. * Potassium (03/07/2014 3:28 PM PRIMER INSERTING MACHINE ADJUSTER) Potassium 4.4 3.5 - 5.3 MEQ/L [facility] LABORATORIES Specimen Blood Performing Organization Address City/State/Zipcode Phone Number [facility] [address] [place] [address] LABORATORIES documented in this encounter Visit Diagnoses Not on filedocumented in this encounter
--- OUTSIDE RECORDS SUMMARY | 2018-11-11 04:14 | XMS REPORT | Encounter Summary ---
Author Author [facility] Organization [facility] Address Unknown Phone Unavailable Care Team Providers Care Marketing Planning Manager Name Role Phone Ange Frazier MD PCP Encounter Details Care Team Description Date Type Department Ange Frazier MD [address] [address] 01/10/2014 [facility] Encounter [address] [place], [place] [phone] Social History Date Tobacco Use Types Packs/Day [...] REGIONAL LABORATORIES Specimen Blood Performing Organization Address City/[facility]/Zipcode Phone Number [facility] [address] [place] [address] LABORATORIES * CBC and Diff (manual diff if necessary) (01/10/2014 3:34 PM CDT) WBC 6.38 4.00 - 11.00 TH/uL [facility] RBC 4.11 4.00 - 5.00 MIL/uL [facility] Hemoglobin 12.4 12.0 - 15.0 g/dL [facility] Hematocrit 39 36 - 45 % [facility] MCV 95 80 - 99 fL [facility] MCH 30 27 - 34 pg [facility] MCHC 32 32 - 36 % [facility] RDW 16.6 (H) 9.0 - 14.5 % [facility] Platelet Count 288 140 - 400 TH/uL [facility] MPV 9.7 9.4 - 12.3 fL [facility] Nucleated RBCs 0 0 - 0 /100 [facility] % Neutrophils 61 45 - 78 % [facility] %Lymphocytes 29 15 - 47 % [facility] %Monocytes 8 0 - 12 % [facility] %Eosinophils 1 0 - 7 % [facility] %Basophils 1 0 - 2 % [facility] % Imm Grans 0 0 - 1 % [facility] # Granulocytes 3.91 1.70 - 6.80 TH/uL [facility] LABORATORIES # Lymphocytes 1.85 1.00 - 3.30 TH/uL [facility] LABORATORIES # Monocytes 0.48 0.20 - 0.90 TH/uL [facility] LABORATORIES # Eosinophils 0.08 0.00 - 0.40 TH/uL [facility] LABORATORIES # Basophils 0.06 0.00 - 0.10 TH/uL [facility] LABORATORIES Specimen Blood Performing Organization Address City/[facility]/Zipcode Phone Number [facility] [address] [place] [address] LABORATORIES documented in this encounter Visit Diagnoses Not on filedocumented in this encounter
--- OUTSIDE RECORDS SUMMARY | 2018-11-11 04:14 | XMS REPORT | Encounter Summary ---
Author Author [facility] Organization [facility] Address Unknown Phone Unavailable Care Team Providers Care Php Website Developer Name Role Phone Ange Frazier MD PCP Encounter Details Care Team Description Date Type Department Ange Frazier MD [address] [address] 03/05/2014 [facility] [...]
--- OUTSIDE RECORDS SUMMARY | 2018-11-11 04:14 | XMS REPORT | Encounter Summary ---
Author Author [facility] Organization [facility] Address Unknown Phone Unavailable Care Team Providers Care Jumpbasting Lining Baster Name Role Phone Ange Frazier MD PCP [...]
--- OUTSIDE RECORDS SUMMARY | 2018-11-11 04:15 | XMS REPORT | Encounter Summary ---
Author Author [facility] Organization [facility] Address Unknown Phone Unavailable Care Team Providers Care Chartered Accountant Name Role Phone Ange Frazier MD PCP Encounter Details Care Team Description Date Type Department Ange Frazier MD [address] [address] 12/29/2013 [facility] Encounter [address] [place], [place] [phone] Social History Date Tobacco Use Types Packs/Day [...] Thyroid 30.10 (H) 0.47 - 4.68 uIU/mL [facility] Hormone LABORATORIES Specimen Blood Performing Organization Address City/[facility]/Zipcode Phone Number [facility] [address] [place], [place] [phone] LABORATORIES * T4 Free (12/29/2013 12:23 PM CDT) T4 Free 0.9 0.8 - 2.2 ng/dL [facility] Specimen Blood Performing Organization Address City/[facility]/Zipcode Phone Number [facility] [address] [place], [place] [phone] LABORATORIES * Comprehensive Metabolic Panel (12/29/2013 12:23 PM CDT) Sodium 136 133 - 147 MEQ/L [facility] Potassium 5.0 3.5 - 5.3 MEQ/L [facility] Chloride 93 (L) 96 - 112 MEQ/L [facility] Carbon Dioxide 23 20 - 32 MEQ/L [facility] Anion Gap 20 (H) 5 - 17 [facility] Calcium 9.9 8.4 - 10.5 mg/dL [facility] Glucose 50 (L) 70 - 100 mg/dL [facility] Protein Total 7.3 6.0 - 8.2 g/dL [facility] Serum [facility] LABORATORIES Albumin 4.8 3.5 - 5.0 g/dL [facility] Alkaline 91 42 - 140 IU/L [facility] Phosphatase REGIONAL LABORATORIES Alanine 31 13 - 69 IU/L [facility] Aminotransferas [facility] e LABORATORIES Aspartate 32 15 - 46 IU/L [facility] Bilirubin Total 0.7 0.2 - 1.3 mg/dL [facility] Blood Urea 21 7 - 26 mg/dL [facility] Nitrogen [facility] LABORATORIES Creatinine 0.8 0.4 - 1.1 mg/dL [...] Blood Performing Organization Address City/State/Zipcode Phone Number [facility] [address] [place] [address] LABORATORIES * CBC and Diff (manual diff if necessary) (12/29/2013 12:23 PM CDT) WBC 9.21 4.00 - 11.00 TH/uL [facility] RBC 3.89 (L) 4.00 - 5.00 MIL/uL [facility] Hemoglobin 11.6 (L) 12.0 - 15.0 g/dL [facility] Hematocrit 36 36 - 45 % [facility] MCV 92 80 - 99 fL [facility] MCH 30 27 - 34 pg [facility] MCHC 32 32 - 36 % [facility] RDW 16.5 (H) 9.0 - 14.5 % [facility] Platelet Count 408 (H) 140 - 400 TH/uL [facility] MPV 9.9 9.4 - 12.3 fL [facility] Nucleated RBCs 0 0 - 0 /100 [facility] LABORATORIES % Neutrophils 68 45 - 78 % [facility] %Lymphocytes 22 15 - 47 % [facility] %Monocytes 9 0 - 12 % [facility] %Eosinophils 1 0 - 7 % [facility] %Basophils 1 0 - 2 % [facility] % Imm Grans 1 0 - 1 % [facility] # Granulocytes 6.31 1.70 - 6.80 TH/uL [facility] LABORATORIES # Lymphocytes 1.98 1.00 - 3.30 TH/uL [facility] REG[facility]AL LABORATORIES # Monocytes 0.79 0.20 - 0.90 TH/uL [facility] LABORATORIES # Eosinophils 0.08 0.00 - 0.40 TH/uL [facility] LABORATORIES # Basophils 0.05 0.00 - 0.10 TH/uL [facility] LABORATORIES Specimen Blood Performing Organization Address City/State/Zipcode Phone Number [facility] [address] [place] [address] LABORATORIES documented in this encounter Visit Diagnoses Not on filedocumented in this encounter
--- OUTSIDE RECORDS SUMMARY | 2018-11-11 04:15 | XMS REPORT | Encounter Summary ---
Author Author [facility] Organization [facility] Address Unknown Phone Unavailable Care Team Providers Care Surgical Services Coordinator Name Role Phone Ange Frazier MD PCP Reason for Visit * Reason Comments Altered Mental Status Pt was confused when home health arrived this am. Pt has rt knee surgery the end of October. Pt oriented x 3. Encounter Details Care Team Description Date Type Department Al Finney MD [address] [place], [place] [id number] Confusion (Primary Dx) 12/22/2013 [facility] [id number] [place] [address] Social History Date Tobacco Use Types Packs/Day [...] or unsupervised. 2. Keep medicines (prescription and [id number]) in a secure place, under t he [...] permanent condition, talk to your doctor and/or cold reduction roller about getting a Power of Pumper Gauger for health care and for f inancial [...] fever over 100.4 F (38.0 C) oral [id number] [facility], [address] [place] [address]. All r ights reserved. This information is [...] ARTHROPLASTY; Surgeon: Cuate Mcdonnell DO; Locati on: [facility] Main OR; Service: Orthopedics; Laterality: Right; [id number] History reviewed. No pertinent family history. History [...] of sleep and pain medications-pt back to [facility] in [place]-if work up unremarkable then d/c back to home anticipated. EKG: per my interpretation shows sinus rhythm, normal axis, normal intervals wit h a rate of 71 . There are not any ST changes concerning for ischemia. LABS Results for orders placed during the hospital encounter of 12/22/13 (from the [facility] 24 hour(s)) CBC AND DIFF (MANUAL DIFF [...] Negative Ketones Urine Negative Negative mg/dL Specific [place], UA <=1.005 1.001 - 1.030 Hemoglobin Urine [...] moderate chronic microvascular ischemic disease. Dictation Site: [facility] XR CHEST SINGLE VIEW FRONTAL Final Result: Impression: No active disease. Dictation Location: [facility] DIAGNOSIS Problem List Items Addressed This Visit None Visit Diagnoses Confusion - Primary FOLLOW UP Ange Frazier MD [address] [facility] [id number] In 2 days As needed if symptoms [...] 12:45 PM CDT) Nitrite Urine Negative Negative [facility] Specimen Urine - Urine Performing Organization Address City/State/Zipcode Phone Number [facility] [address] [place] [address] * Urinalysis (12/22/2013 12:45 PM CDT) Appearance, Yellow [facility] Glucose Urine Negative Negative mg/dL [facility] Bilirubin Urine Negative Negative [facility] Ketones Urine Negative Negative mg/dL [facility] Specific <=1.005 1.001 - 1.030 [facility] [place], UA [facility] Hemoglobin Negative Negative [facility] PH Urine 6.5 5.0 - 8.0 [facility] Protein Urine Negative Negative mg/dL [facility] Urobilinogen Negative Negative EU/dL [facility] Leukocyte Negative Negative [facility] Esterase [facility] Specimen Urine - Urine Performing Organization Address City/State/Zipcode Phone Number [facility] RENEADesignGooroo [facility] [address] [place] [address] * CT Head wo contrast (12/22/2013 12:06 PM CDT) Specimen Impressions Performed At IMPRESSION: XIMENA 1. No acute intracranial hemorrhage, mass effect, or midline shift. 2. Stable moderate chronic microvascular ischemic disease. Dictation Site: [facility] Narrative Performed At Patient: GUERDA VÁSQUEZ Sex#:F # 1940 Cindy#:[id number] [id number] Procedure Requested:[id number] CT HEAD WO CONTRAST Reason for Exam:confusion [...] Patient: PAMELA VÁSQUEZ Sex#: Delfino # 1940 Icndy#: [id number] Location: [facility]- Procedure Requested: [id number] CT HEAD WO CONTRAST Reason for Exam: [...] moderate chronic microvascular ischemic disease. Dictation Site: [facility] Address City/State/Zipcode Phone Number [employer] BridgeANNEMARIE * XR Chest single view frontal (12/22/2013 11:37 AM CDT) Specimen Impressions Performed At Impression: No active disease. [facility] Dictation Location: [facility] Narrative Performed At Patient: GUERDA VÁSQUEZ Phone#: med Rec#: [id number] Sex#:F # 1940 Cindy#:[id number] Location:[facility] [place]-06Accession#: [id number] Procedure Requested:[id number] XR CHEST SINGLE VIEW FRONTAL Reason for Exam:Altered Mental Status Exam Ordered: Exam Date/Time: Check-in Date/Time:9/5/93277182 Portable AP Chest Dec 22, 2013 11:38:13 [...] CDT Patient: PAMELA VÁSQUEZ Phone#: Med Rec#: [id number] Sex#: F # 1940 Cindy#: [id number] Location: [facility]- Procedure Requested: [id number] XR CHEST SINGLE VIEW FRONTAL Reason for [...] Unremarkable Impression: No active disease. Dictation Location: [facility] Performing Organization Address City/State/Zipcode Phone Number [place] * Comprehensive Metabolic Panel (12/22/2013 11:25 AM CDT) [facility] Signature Sodium 134 133 - 147 MEQ/L [facility] Potassium 4.8 3.5 - 5.3 MEQ/L [facility] Chloride 96 96 - 112 MEQ/L [facility] Carbon Dioxide 29 20 - 32 MEQ/L [facility] Anion Gap 10 5 - 17 [facility] Calcium 9.4 8.4 - 10.5 mg/dL [facility] Glucose 95 70 - 100 mg/dL [facility] Protein Total 6.9 6.0 - 8.2 g/dL [facility] Serum [facility] Albumin 4.2 3.5 - 5.0 g/dL [facility] Alkaline 75 42 - 140 IU/L [facility] Phosphatase [facility] Alanine 26 13 - 69 IU/L [facility] Aminotransferas [facility] e Aspartate 27 15 - 46 IU/L [facility] Aminotransferas [facility] e Bilirubin Total 0.5 0.2 - 1.3 mg/dL [facility] Blood Urea 21 7 - 26 mg/dL [facility] Nitrogen [facility] Creatinine 0.7 0.4 - 1.1 mg/dL [facility] eGFR Female AA 99 [facility] Comment: [facility] Chronic Kidney Disease less than 60 mL/min/1.73 sq.m Kidney failure less than 15 mL/min/1.73 sq.m eGFR Female 82 [facility] Non-AA Comment: [facility] Chronic Kidney Disease less than 60 mL/min/1.73 sq.m Kidney failure less than 15 mL/min/1.73 sq.m Specimen Blood - Blood Performing Organization Address City/State/Zipcode Phone Number [facility] [address] [place] [address] * CBC and Diff (manual diff if necessary) (12/22/2013 11:25 AM CDT) WBC 10.38 4.00 - 11.00 TH/uL [facility] RBC 3.38 (L) 4.00 - 5.00 MIL/uL [facility] Hemoglobin 9.8 (L) 12.0 - 15.0 g/dL [facility] Hematocrit 30 (L) 36 - 45 % [facility] MCV 90 80 - 99 fL [facility] MCH 29 27 - 34 pg [facility] MCHC 32 32 - 36 % [facility] RDW 15.1 (H) 9.0 - 14.5 % [facility] Platelet Count 355 140 - 400 TH/uL [facility] MPV 9.2 (L) 9.4 - 12.3 fL [facility] Nucleated RBCs 0 0 - 0 /100 [facility] % Neutrophils 67 45 - 78 % [facility] %Lymphocytes 27 15 - 47 % [facility] %Monocytes 5 0 - 12 % [facility] %Eosinophils 0 0 - 7 % [facility] %Basophils 0 0 - 2 % [facility] % Imm Grans 1 0 - 1 % [facility] # Granulocytes 6.98 (H) 1.70 - 6.80 TH/uL [facility] # Lymphocytes 2.83 1.00 - 3.30 TH/uL [facility] # Monocytes 0.52 0.20 - 0.90 TH/uL [facility] # Eosinophils 0.02 0.00 - 0.40 TH/uL [facility] # Basophils 0.03 0.00 - 0.10 TH/uL [facility] Specimen Blood - Blood Performing Organization Address City/[facility]/Zipcode Phone Number [facility] [address] [place] [address] * Electrocardiogram (ECG) (12/22/2013 11:19 AM CDT) Specimen Narrative Performed At TRACEMASTER Name PAMELA VÁSQUEZ Date of Birth1940 SexF [id number] Facility [facility] Service Date 12/22/2013, 11:19:22 [phone] 54 -49 5 55 42 - NORMAL ECG - SINUS RHYTHM normal P axis, V-rate 50-99 FINAL REPORT Procedure Note Interface, External Ris In - 12/26/2013 1:13 PM CDT Name PAMELA VÁSQUEZ Date of 1940 Sex F Visit [id number] Facility [facility] Service Date 12/22/2013, 11:19:22 71 [phone] [...]
--- OUTSIDE RECORDS SUMMARY | 2018-11-11 04:15 | XMS REPORT | Encounter Summary ---
Author Author [facility] Organization [facility] Address Unknown Phone Unavailable Care Team Providers Care Human Resources Hr Generalist Name Role Phone Ange Frazier MD PCP Encounter Details Care Team Description Date [place] [address] [place] [address] [phone] 12/19/2013 [facility] 12/20/[address] [place] [address] Social History Date Tobacco Use Types Packs/Day [...] help this week) Prior Function Level of [place] Modified independent with functional transfers;Modified in dependent with ambulation Receives Help From Neighbor;pound attendant Pain Assessment Pain Score 7 Pain Type [...] patients pain using appropriate pain scale. Collaborate [facility] interdisciplinary team and initiate plan and [...] gastrointestinal status, and labs (WBC, cultures). Ad joinery setter out antibiotics and antipyretics as ordered. Ensure aseptic [...] Potassium 5.8 (H) 3.5 - 5.3 MEQ/L [facility] Specimen Blood - Blood Performing Organization Address City/State/Zipcode Phone Number [facility] [address] [place] [address] * Magnesium (12/19/2013 10:10 PM CDT) Magnesium 1.9 1.4 - 2.7 mg/dL [facility] Specimen Blood - Blood Performing Organization Address City/[facility]/Zipcode Phone Number [facility] [address] [place] [address] * Creatinine (12/19/2013 10:10 PM CDT) Creatinine 0.6 0.4 - 1.1 mg/dL [facility] eGFR Female AA 118 [facility] Comment: [facility] Chronic Kidney Disease less than 60 mL/min/1.73 sq.m Kidney failure less than 15 mL/min/1.73 sq.m eGFR Female 98 [facility] Non-AA Comment: [facility] Chronic Kidney Disease less than 60 mL/min/1.73 sq.m Kidney failure less than 15 mL/min/1.73 sq.m Specimen Blood - Blood Performing Organization Address City/[facility] Phone Number [facility] ANDREWSherri [facility] [address] [place] [address] * XR Knee 1 or 2 views right (12/19/2013 4:06 PM CDT) Specimen Impressions Performed At Impression: XIMENA 1. 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 No evidence of acute osseous abnormality. 2. Evidence of large joint effusion increased capsular distention from the comparison study. Narrative Performed At Patient: GUERDA VÁSQUEZ Phone#: med Rec#: [id number] Sex#:F # 1940 Cindy#:[id number] Location:[facility] ORS-06Accession#: [id number] Procedure Requested:[id number] XR KNEE 1 OR 2 VIEWS RIGHT [...] 4:15 PM CDT Patient: PAMELA VÁSQUEZ Phone#: [facility] Rec#: [id number] Sex#: F # 1940 Cindy#: [id number] Location: [place] [address] Procedure Requested: [id number] XR KNEE 1 OR 2 VIEWS RIGHT [...]
--- OUTSIDE RECORDS SUMMARY | 2018-11-11 04:16 | XMS REPORT | Encounter Summary ---
Author Author [facility] Organization [facility] Address Unknown Phone Unavailable Care Team Providers Care Instrument Maker And Repairer Name Role Phone Ange Frazier MD PCP Encounter Details Care Team Description Date Type Department No Show 12/19/2013 [facility] [address] [place] [address] Social History Date Tobacco Use Types Packs/Day [...] Sparrow RN - 12/19/2013 11:[place] [address] Patient Post-Operative Instructions: General Anesthesia / Regional [...] overnoc for oxygen and pain control. Notified senior data warehouse developer. * Milli Sparrow RN - 12/19/2013 3:04 [...] b rought to the operating room at [facility]. Once satisfactory anesthesia was obtained, the [...] admitted to the hospital. Cuate Mcdonnell DO [id number] CC: documented in this encounter Plan of [...]
--- OUTSIDE RECORDS SUMMARY | 2018-11-11 04:16 | XMS REPORT | Encounter Summary ---
Author Author [facility] Organization [facility] Address Unknown Phone Unavailable Care Team Providers Care Packaging Line Attendant Name Role Phone Ange Frazier MD PCP Encounter Details Care Team Description Date Type Department [place] Nelson [address] [place] [address] [place] [address] [phone] Amauri Velazco RN FOREIGN CAR MECHANIC NO FORWARDING ADDRESS 12/19/2013 Anesthesia [facility] [address] [place] [address] Anesthesia Record Responsible Anesthesiologist Anesthesia Start Time [...] landmarks; Insertion Attempts: 1; Inserted By: Amanda Bright RN; Removal Date: 12/20/13; Removal Time: 1030 [...] Anesthesia Postprocedure Evaluation - Kermit Urbina RN FOREIGN CAR MECHANIC - 12/19/2013 2:05 PM CDT Patient: Sydnee [...] risks discussed with patient. Plan discussed with FOREIGN CAR MECHANIC. Post-operative analgesia: routine analgesia and antiemetics Recovery [...]
--- OUTSIDE RECORDS SUMMARY | 2018-11-11 04:17 | XMS REPORT | Encounter Summary ---
Author Author [facility] Organization [facility] Address Unknown Phone Unavailable Care Team Providers Care Print Line Tailer Name Role Phone Ange Frazier MD PCP Encounter Details Care Team Description Date [place] [address] [place] [address] [phone] 11/07/2013 [facility] 11/10/[id number] [place] [address] Social History Date Tobacco Use Types Packs/Day [...] encounter Discharge Summaries * Roosevelt Pina RN [employer] - 04/02/2014 1:01 PM ICE DELIVERY DRIVER 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 Discharge instructions discussed with her including woun d care, DVT prophylaxis, signs and symptoms for which the physician should be no tified and clinic follow up. Disposition: Discharge instructions discussed with patient including wound care, DVT prophylaxis, signs and symptoms for which physician should be notified, and clinic follow-up and Patient appropritae for discharge to Inpatient Rehab DELIVERY DRIVER documented in this encounter Discharge Instructions * Discharge Instr - Lab* Elvira Rodrigues RN - 11/08/2013 9:58 AM CDT Follow up Appointment: Dr. Mcdonnell - As scheduled * Attachments The following attachments cannot be sent through Care Everywhere.* TRAMADOL HYDROCHLORIDE ORAL TABLET (TONGAN) * TAPENTADOL ORAL TABLET (TONGAN) * ASPIRIN ORAL TABLET (TONGAN) documented in this encounter Medications at Time [...] 1:52 PM CDT Patient was accepted at [facility], they transported her at noon today.[facility] Is a skilled facility. * Adwoa Butler, [...] for in patient rehab. * Jennifer Heart, TERMITE TREATER - 11/09/2013 5:37 PM CDT Respiratory Care Services Initial Consultation Note Name: Pamela Vásquez CPI: [id number] Pamela Vásquez was evaluated per RATE Consultation [...] mL Oral Q4H PRN Roosevelt Pina RN [employer] 15 mL at 11/08/13 1002 docusate sodium (COLACE) capsule 100 mg 100 mg Oral BID PRN Roosevelt hunt RN [employer] 100 mg at 11/09/13 0816 enoxaparin (LOVENOX) syringe 40 mg 40 mg Subcutaneous Daily Roosevelt hunt RN [employer] 40 mg at 11/09/13 0631 fentaNYL (SUBLIMAZE) [...] 10 mg Oral Daily Roosevelt hunt RN [employer] 10 mg at 11/09/13 1721 loratadine (CLARITIN) tablet 10 mg 10 mg Oral Daily JERMAINE Boo RN 10 mg at 11/09/13 0815 metaxalone (SKELAXIN) tablet 800 mg 800 mg Oral Q8H PRN Aurora Boo [employer] 800 mg at 11/09/13 0817 metoclopramide (REGLAN) [...] mg Intravenous Q6H PRN Lino Pina RN [employer] 4 mg at 11/08/13 0807 pantoprazole (PROTONIX) EC tablet 40 mg 40 mg Oral Daily Jerri Mcdonnell DO 40 mg at 11/09/13 0815 polyethylene glycol (GLYCOLAX) packet 17 g 17 g Oral Daily PRN Roosevelt Santos, RN [employer] pravastatin (PRAVACHOL) tablet 80 mg 80 mg [...] Assistance required to generate solutions Communication Communication TUOLUMNE Transfers Sit to Stand Transfers Stand by [...] CDT Multidisciplinary Discharge Rounds Disciplines Present: social sciences professor, case specialist and nursing administration Identified Needs - Consults: social sciences professor Identified Needs - Discharge Barriers: other NONE Identified Needs - Education: no Identified Needs - DME: no POSSIBLE D/C WITH [facility] OR [facility] * Gilma Hansen LSCSW - 11/09/2013 1:50 PM CDT I have called [facility]a jos[facility], [facility] and [facility] and faxed info. To th em. Rafaela José does not have a bed available. The others are still reviewing . * Gilma Hansen LSCSW - 11/09/2013 12:37 PM CDT Received referral for discharge planning. Patient is interested in [facility] and [facility]. I will call and fax info. To [...] step commands with increased time Communication Communication TUOLUMNE Transfers Sit to Stand Transfers Modified independent [...] Assistive Device None Prior Function Level of Blount Independent with functional transfers;Independent with amb ulation [...] Assistive Device None Prior Function Level of [place]ount Independent with functional transfers;Independent with amb ulation [...] IS , ankle pumps, etc. Communication Communication TUOLUMNE (slurred speach) Communication Comment Repeated directions/joint program [...] 10/27/2013 12:27 PM CDT Labs drawn at [facility] 10-27-13 * Milli Sparrow RN - [...] patients pain using appropriate pain scale. [facility] interdisciplinary team and initiate plan and interventions [...] patients pain using appropriate pain scale. [facility] interdisciplinary team and initiate plan and interventions [...] PROCEDURE: Right total knee arthroplasty. COMPLICATIONS: None. HYDROLOGIC ENGINEER: Roosevelt Pina nurse practitioner, as a skilled first assista nt was necessary due to minimally invasive total knee arthroplasty. ESTIMATED BLOOD LOSS: 50 mL. DESCRIPTION OF PROCEDURE: After informed consent was obtained, Ms. Vásquez was b rought to the operating room at [facility]. Once satisfactory anesthesia was obtained, [...] were inserted in the knee joint utilizing Swifton-G cement. All excess c ement was removed. [...] without complication or difficulty. Jerri Mcdonnell DO [id number] CC: documented in this encounter Plan of [...] Sodium 131 (L) 133 - 147 MEQ/L [facility] Specimen Blood Performing Organization Address City/State/Zipcode Phone Number [facility] [address] [place] [address] * Complete Blood Count (11/09/2013 6:25 AM CDT) Only the most recent of 3 results within the time period is included. WBC 9.83 4.00 - 11.00 TH/uL [facility] RBC 2.78 (L) 4.00 - 5.00 MIL/uL [facility] Hemoglobin 8.3 (L) 12.0 - 15.0 g/dL [facility] Hematocrit 25 (L) 36 - 45 % [facility] MCV 90 80 - 99 fL [facility] MCH 30 27 - 34 pg [facility] MCHC 33 32 - 36 % [facility] RDW 12.6 9.0 - 14.5 % [facility] Platelet Count 187 140 - 400 TH/uL [facility] MPV 10.4 9.4 - 12.3 fL [facility] Nucleated RBCs 0 0 - 0 /100 [facility] Specimen Blood Performing Organization Address [facility] Hospital[facility] Phone Number [facility] [address] [place] [address] * Electrolytes (11/08/2013 4:30 AM CDT) Sodium 126 (L) 133 - 147 MEQ/L [facility] Potassium 4.7 3.5 - 5.3 MEQ/L [facility] Chloride 91 (L) 96 - 112 MEQ/L [facility] Carbon Dioxide 29 20 - 32 MEQ/L [facility] Anion Gap 5 5 - 17 [facility] Specimen Blood Performing Organization Address City/[facility] Hospital[facility] Phone Number [facility] [address] [place] [address] * XR Knee- right AP and LAT (11/07/2013 11:18 AM CDT) Specimen Impressions Performed At Impression: Postoperative changes right total knee arthroplasty. XIMENA Narrative Performed At Patient: GUERDA VÁSQUEZ BOZENAJAELANNEMARIE Phone#: med Rec#: [id number] Sex#:F # [id number] Cindy#:[id number] Location:[facility] ORS-03Accession#: [id number] Procedure Requested:[id number] XR KNEE 1 OR 2 VIEWS RIGHT Reason for Exam:Post-op Eval Exam Ordered: Exam Date/Time: Check-in Date/Time: Dictation Location: [facility] DATE:Nov 07, 2013 11:18:42 AM EXAM:XR KNEE 1 OR 2 VIEWS RIGHT INDICATION:Post-op Eval No comparison FINDINGS:Post-op changes of right total knee arthroplasty. Components appear well seated. Patellar resurfacing. Procedure Note Interface, Rad Results In - 11/07/2013 11:52 AM CDT Patient: PAMELA VÁSQUEZ Phone#: [facility] Rec#: [id number] Sex#: F # [id number] Cindy#: [id number] Location: [place] [address] Procedure Requested: [id number] XR KNEE 1 OR 2 VIEWS RIGHT Reason for Exam: Post-op Eval Exam Ordered: 11/07/2013 1053 Exam Date/Time: 11/07/2013 1118 Check-in Date/Time: 11/07/2013 1118 Dictation Location: [facility] DATE: Nov 07, 2013 11:18:42 AM [...] / : F 1940 (Age: 72) VISIT: [id number] SUBMITTING PHYSICIAN:JERRI MCDONNELL M.D. CLIENT:[facility] COLLECTED: 11/07/2013 REPORTED:11/09/2013 SURGICAL PATHOLOGY REPORT [...] cassette following decalcification.Residual. DA/kh Gross performed at [facility], [address] [place] [address]. MICROSCOPIC DESCRIPTION: Microscopic examination performed. [place]: [facility], [address] [place] [address] Performing Laboratory Location: [facility], Carson Bautista M.D., Kennel Manager Dog Track, [address] [place] [address] Technical processing at: [facility] Jt Larson M.D., Kennel Manager [employer] Track [address] [place] [address] END OF REPORT Performing Organization Address City/[facility]/Zipcode Phone Number [facility] [address] [place] [address] [facility] [address] [place] [address] * Urine Nitrite (10/27/2013 3:37 PM CDT) Nitrite Urine Negative Negative [facility] Specimen Urine Performing Organization Address City/[facility]/Zipcode Phone Number [facility] [address] [place] [address] * Urinalysis (10/27/2013 3:37 PM CDT) Appearance, Yellow [facility] Urine [facility] Glucose Urine Negative Negative mg/dL [facility] Bilirubin Urine Negative Negative [facility] Ketones Urine Negative Negative mg/dL [facility] Specific 1.010 1.001 - 1.030 [facility] [place], [facility]A [facility] Hemoglobin Negative Negative [facility] PH Urine 6.0 5.0 - 8.0 [facility] Protein Urine Negative Negative mg/dL [facility] Qual [facility] Urobilinogen Negative Negative EU/dL [facility] Leukocyte Negative Negative [facility] Esterase [facility] Specimen Urine Performing Organization Address [facility] Phone Number [facility] [id number] [place] [address] * C-Reactive Protein (10/27/2013 3:37 PM CDT) C Reactive 6.4Comment: Infection or 0.0 - 10.0 mg/L [facility] Protein Inflammation >10.0 mg/L [facility] Specimen Blood Performing Organization Address City/[facility] Phone Number [facility] [address] [address] [facility]OR[facility]IES * Erythrocyte Sedimentation Rate (10/27/2013 3:37 PM CDT) Sed Rate 7 0 - 17 mm/h [facility] Specimen Blood Performing Organization Address [facility] [place] [address] * APTT (10/27/2013 3:37 PM CDT) APTT 28 22 - 34 sec [facility] Specimen Blood Performing Organization Address [facility] Number [facility] [address] [address] * Prothrombin Time/INR (10/27/2013 3:37 PM CDT) Protime 13.3 11.7 - 14.3 sec [facility] INR 1.0 0.9 - 1.1 [facility] Specimen Blood Performing Organization Address [facility] Number [facility] [address] [address] * Urinalysis Reflex (10/27/2013 3:37 PM CDT) UA Reflex Complete [facility] Specimen Urine Performing Organization Address [facility] Phone Number [facility] [address] [address] * Basic Metabolic Panel (10/27/2013 3:37 PM CDT) Sodium 135 133 - 147 MEQ/L [facility] Potassium 4.6 3.5 - 5.3 MEQ/L [facility] Chloride 93 (L) 96 - 112 MEQ/L [facility] Carbon Dioxide 30 20 - 32 MEQ/L [facility] Anion Gap 12 5 - 17 [facility] Calcium 9.4 8.4 - 10.5 mg/dL [facility] Glucose 106 (H) 70 - 100 mg/dL [facility] Blood Urea 16 7 - 26 mg/dL [facility] Nitrogen [facility] Creatinine 0.7 0.4 - 1.1 mg/dL [facility] eGFR Female AA 99 [facility] Comment: [facility] Chronic Kidney Disease less than 60 mL/min/1.73 sq.m Kidney failure less than 15 mL/min/1.73 sq.m eGFR Female 82 [facility] Non-AA Comment: [facility] Chronic Kidney Disease less than 60 mL/min/1.73 sq.m Kidney failure less than 15 mL/min/1.73 sq.m Specimen Blood Performing Organization Address City/State/Zipcode Phone Number [facility] [address] [place] [address] documented in this encounter Visit Diagnoses Diagnosis [...] PRN, mild pain (pain score 1-3), Starting [facility] 11/09/13 at 1452, Do not exceed [...]
--- OUTSIDE RECORDS SUMMARY | 2018-11-11 04:17 | XMS REPORT | Encounter Summary ---
Author Author [facility] Organization [facility] Address Unknown Phone Unavailable Care Team Providers Care Clinical Informatics Physician Name Role Phone Ange Frazier MD PCP Encounter Details Care Team Description Date Type Department [place] [id number] [place] [address] [id number] 11/07/2013 Anesthesia [facility] [id number] [place] [address] Anesthesia Record Responsible Anesthesiologist Anesthesia Start Time [...] Meds Name Total midazolam 1mg/mL 1 mg [id number] 0.75% (PF) 7.5mg/mL 11.25 mg fentanyl 50mcg/mL [...] Removal Time: 1500 11/06/18 0836 by User [employer] (Retired 11/07/13; 1057; Knee; Right; incision; 11/07/13 [...] encounter Procedure Notes * Wendy Urrutia RN WET END HELPER - 11/07/2013 10:37 AM CDT Associated Order(s): ANESTHESIA SPINAL BLOCK Spinal Start time: 11/07/2013 9:13 AM End time: 11/07/2013 9:21 AM Staffing Performed by: anesthesiologist and WET END HELPER Preanesthetic Checklist Preanesthetic Checklist: patient identified, risks [...] 1/2 inches Approach: Midline Attempts: 2 (x1 WET END HELPER, x1 Staff) Injection: single shot NO RBC aspiration Aspirate CSF Paresthesia: left and transient (subsided prior to injection of medicine) Bupivacaine 0.75% 1.5 mL Fentanyl 20 mcg documented in this encounter Miscellaneous Notes * Anesthesia Postprocedure Evaluation - Lashawn Ricardo RN CRNA - 11/07/2013 1:35 PM CDT Patient: Sydnee Love Procedure(s) with comments: RIGHT TOTAL KNEE ARTHROPLASTY - [id number] Final Anesthesia Type Performed: spinal *Block Type [...] risks discussed with patient. Plan discussed with WET END HELPER. Post-operative analgesia: routine analgesia and antiemetics Recovery [...] 9:21 AM Staffing Performed by: anesthesiologist and WET END HELPER Preanesthetic Checklist Preanesthetic Checklist:patient identified, risks and [...] 1/2 inches Approach: Midline Attempts: 2 (x1 WET END HELPER, x1 Staff) Injection: single shot NO RBC aspiration Aspirate CSF Paresthesia: left and transient (subsided prior to injection of medicine) Bupivacaine 0.75% 1.5 mL Fentanyl 20 mcg Procedure Note Wendy Urrutia RN WET END HELPER - 11/07/2013 10:37 AM CDT Spinal Start [...] 1/2 inches Approach: Midline Attempts: 2 (x1 WET END HELPER, x1 Staff) Injection: single shot NO RBC [...]
--- OUTSIDE RECORDS SUMMARY | 2018-11-11 04:17 | XMS REPORT | Encounter Summary ---
Author Author [facility] Organization [facility] Address Unknown Phone Unavailable Care Team Providers Care Solder Cream Maker Name Role Phone Ange Frazier MD PCP Encounter Details Care Team Description Date Type Department Oseas Martins MD [address] [address] 09/27/2013 [facility] - Hist [facility] [...] Martins MD - 09/27/2013 4:04 [place] [address] 10/05/2013 Ange Frazier MD [address] [address] Re: PAMELA VÁSQUEZ : 1940 Chart#: [id number] Dear Dr. Frazier: This is a followup [...]
--- OUTSIDE RECORDS SUMMARY | 2018-11-11 04:17 | XMS REPORT | Encounter Summary ---
Author Author [facility] Organization [facility] Address Unknown Phone Unavailable Care Team Providers Care Manager Functional Name Role Phone Ange Frazier MD PCP Encounter Details Care Team Description Date [place] [address] [place] [address] [phone] RIGHT TOTAL KNEE ARTHROPLASTY 11/07/2013 Surgery [facility] [id number] [place] [address] Social History Date Tobacco Use Types Packs/Day [...] encounter Discharge Summaries * Roosevelt Pina RN FAST FOOD FRY COOK - 04/02/2014 1:01 PM LIFE SKILLS COORDINATOR VOLUNTEER 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 Vásquez has had jail problems with known oste oarthritis of a [...] ambulation and was stable for discharge to [facility] facility/home. Discharge instructions discussed with her including woun d care, DVT prophylaxis, signs and symptoms for which the physician should be no tified and clinic follow up. Disposition: Discharge instructions discussed with patient including wound care, DVT prophylaxis, signs and symptoms for which physician should be notified, and clinic follow-up and Patient appropritae for discharge to Inpatient Rehab SKILLS COORDINATOR VOLUNTEER documented in this encounter Discharge Instructions * Discharge Instr - Lab* Elvira Rodrigues RN - 11/08/2013 9:58 AM CDT Follow up Appointment: Dr. Kecia Garcia As scheduled * Attachments The following attachments cannot be sent through Care Everywhere.* TRAMADOL HYDROCHLORIDE ORAL TABLET (CHADIAN) * TAPENTADOL ORAL TABLET (CHADIAN) * ASPIRIN ORAL TABLET (CHADIAN) documented in this encounter Medications at Time [...] 1:52 PM CDT Patient was accepted at [facility], they transported her at noon today.[facility] Is a skilled facility. * Adwoa Butler [...] Plan Continued OT * Roosevelt Pina RN FAST FOOD FRY COOK - 11/10/2013 7:26 AM CDT No complaints of chest pain or shortness of breath. Extremity right lower Dressing dry, clean and intact Vascular normal and pulses present Muscular N/V/M intact Labs are stable. Minimal pain relief with meds. Will try nucynta Pt to be placed for in patient rehab. * Jennifer Heart, DYNAMOTOR REPAIRER - 11/09/2013 5:37 PM CDT Respiratory Care Services Initial Consultation Note Name: Pamela Vásquez CPI: [id number] Pamela Vásquez was evaluated per RATE Consultation [...] mL Oral Q4H PRN Roosevelt Pina RN FAST FOOD FRY COOK 15 mL at 11/08/13 1002 docusate sodium (COLACE) capsule 100 mg 100 mg Oral BID PRN Roosevelt hunt RN FAST FOOD FRY COOK 100 mg at 11/09/13 0816 enoxaparin (LOVENOX) syringe 40 mg 40 mg Subcutaneous Daily Roosevelt hunt RN FAST FOOD FRY COOK 40 mg at 11/09/13 0631 fentaNYL (SUBLIMAZE) 50 mcg/mL injection 12.5-25 mcg 12.5-25 mcg Intravenou s Q2H PRN Jerri Mcdonnell DO 12.5 mcg at 11/08/13 0820 ferrous sulfate tablet 325 mg 325 mg Oral BID Roosevelt Pina RN APRN 3 25 mg at 11/08/132000 folic acid (FOLVITE) tablet 1 mg 1 mg Oral Daily Roosevelt Pina RN FAST FOOD FRY COOK HYDROcodone-acetaminophen (NORCO) 7.5-325 mg per tablet 1-2 [...] 10 mg Oral Daily Roosevelt hunt RN FAST FOOD FRY COOK 10 mg at 11/09/13 1721 loratadine (CLARITIN) tablet 10 mg 10 mg Oral Daily JERMAINE Boo RN 10 mg at 11/09/13 0815 metaxalone (SKELAXIN) tablet 800 mg 800 mg Oral Q8H PRN Aurora Boo FAST FOOD FRY COOK 800 mg at 11/09/13 0817 metoclopramide (REGLAN) [...] 50 mg Oral Daily Roosevelt Pina RN FAST FOOD FRY COOK 50 mg at 11/09/13 0815 miconazole nitrate (ALOE VESTA) 2 % ointment Topical TID PRN Roosevelt nichols RN APRN ondansetron (ZOFRAN) 4 mg/2 mL injection 4 mg 4 mg Intravenous Q6H PRN Lino Pina RN FAST FOOD FRY COOK 4 mg at 11/08/13 0807 pantoprazole (PROTONIX) EC tablet 40 mg 40 mg Oral Daily Jerri Mcdonnell DO 40 mg at 11/09/13 0815 polyethylene glycol (GLYCOLAX) packet 17 g 17 g Oral Daily PRN Roosevelt Santos, RN FAST FOOD FRY COOK pravastatin (PRAVACHOL) tablet 80 mg 80 mg [...] Assistance required to generate solutions Communication Communication CHITIMACHA Transfers Sit to Stand Transfers Stand by [...] PM CDT Multidisciplinary Discharge Rounds Disciplines Present: health and social care teacher, returned case inspector and nursing administration Identified Needs - Consults: health and social care teacher Identified Needs - Discharge Barriers: other NONE Identified Needs - Education: no Identified Needs - DME: no POSSIBLE D[facility]C [facility] * Gilma Hansen LSCSW - 11/09/2013 1:50 PM CDT I have called Rafalea josé, [facility] and page and faxed info. To th em. Rafaela José does not have a bed available. The others are still reviewing . * Gilma Hansen LSCSW - 11/09/2013 12:37 PM CDT Received referral for discharge planning. Patient is interested in [facility] and [facility]. I will call and fax info. To [...] step commands with increased time Communication Communication CHITIMACHA Transfers Sit to Stand Transfers Modified independent [...] Assistive Device None Prior Function Level of [place] Independent with functional transfers;Independent with amb ulation [...] Assistive Device None Prior Function Level of [place] Independent with functional transfers;Independent with amb ulation [...] IS , ankle pumps, etc. Communication Communication CHITIMACHA (slurred speach) Communication Comment Repeated directions/joint program [...] 10/27/2013 12:27 PM CDT Labs drawn at [facility] 10-27-13 * Milli Sparrow RN - 10/27/2013 [...] patients pain using appropriate pain scale. [facility] and initiate plan and [...] patients pain using appropriate pain scale. [facility] inter[facility] team and initiate plan and [...] PROCEDURE: Right total knee arthroplasty. COMPLICATIONS: None. CONTROL ROOM AGENT: Roosevelt Pina nurse practitioner, as a skilled first assista nt was necessary due to minimally invasive total knee arthroplasty. ESTIMATED BLOOD LOSS: 50 mL. DESCRIPTION OF PROCEDURE: After informed consent was obtained, Ms. Vásquez was b rought to the operating room at [facility]. Once satisfactory anesthesia was obtained, the patient's [...] were inserted in the knee joint utilizing Kite-G cement. All excess c ement was removed. [...] without complication or difficulty. Jerri Mcdonnell DO [id number] CC: documented in this encounter Plan of [...] Sodium 131 (L) 133 - 147 MEQ/L [facility] Specimen Blood Performing Organization Address City/State/Zipcode Phone Number [facility] [address] [place] [address] * Complete Blood Count (11/09/2013 6:25 AM CDT) Only the most recent of 3 results within the time period is included. WBC 9.83 4.00 - 11.00 TH/uL [facility] RBC 2.78 (L) 4.00 - 5.00 MIL/uL [facility] Hemoglobin 8.3 (L) 12.0 - 15.0 g/dL [facility] Hematocrit 25 (L) 36 - 45 % [facility] MCV 90 80 - 99 fL [facility] MCH 30 27 - 34 pg [facility] MCHC 33 32 - 36 % [facility] RDW 12.6 9.0 - 14.5 % [facility] Platelet Count 187 140 - 400 TH/uL [facility] MPV 10.4 9.4 - 12.3 fL [facility] Nucleated RBCs 0 0 - 0 /100 [facility] Specimen Blood Performing Organization Address [facility] Phone Number [facility] [address] [place] [address] * Electrolytes (11/08/2013 4:30 AM CDT) Sodium 126 (L) 133 - 147 MEQ/L [facility] Potassium 4.7 3.5 - 5.3 MEQ/L [facility] Chloride 91 (L) 96 - 112 MEQ/L [facility] Carbon Dioxide 29 20 - 32 MEQ/L [facility] Anion Gap 5 5 - 17 [facility] Specimen Blood Performing Organization Address City/[facility] Phone Number [facility] [address] [place] [address] * XR Knee- right AP and LAT (11/07/2013 11:18 AM CDT) Specimen Impressions Performed At Impression: Postoperative changes right total knee arthroplasty. XIMENA Narrative Performed At Patient: GUERDA VÁSQUEZ BOZENAJAELANNEMARIE Phone#: med Rec#: [id number] Sex#:F # [id number] Cindy#:[id number] Location:[facility] ORS-03Accession#: [id number] Procedure Requested:[id number] XR KNEE 1 OR 2 VIEWS RIGHT Reason for Exam:Post-op Eval Exam Ordered: Exam Date/Time: Check-in Date/Time: Dictation Location: [facility] DATE:Nov 07, 2013 11:18:42 AM EXAM:XR KNEE 1 OR 2 VIEWS RIGHT INDICATION:Post-op Eval No comparison FINDINGS:Post-op changes of right total knee arthroplasty. Components appear well seated. Patellar resurfacing. Procedure Note Interface, Rad Results In - 11/07/2013 11:52 AM CDT Patient: PAMELA VÁSQUEZ Phone#: [facility] Rec#: [id number] Sex#: F # [id number] Cindy#: [id number] Location: [place] [address] Procedure Requested: [id number] XR KNEE 1 OR 2 VIEWS RIGHT Reason for Exam: Post-op Eval Exam Ordered: 11/07/2013 1053 Exam Date/Time: 11/07/2013 1118 Check-in Date/Time: 11/07/2013 1118 Dictation Location: [facility] DATE: Nov 07, 2013 11:18:42 AM EXAM: [...] / : F 1940 (Age: 72) VISIT: [id number] SUBMITTING PHYSICIAN:JERRI MCDONNELL M.D. CLIENT:[facility] COLLECTED: 11/07/2013 REPORTED:11/09/2013 SURGICAL PATHOLOGY REPORT COPATH [...] cassette following decalcification.Residual. DA/kh Gross performed at [facility] Gross Room, [address] [place] [address]. MICROSCOPIC DESCRIPTION: Microscopic examination performed. [place]: [facility], [address] [place] [address] Performing Laboratory Location: [facility], Carson Batuista M.D., Assistant Director Of Public Works, [address] [place] [address] Technical processing at: [facility] Jt Larson M.D., Assistant Director Of Public Works [address] [place] [address] END OF REPORT Performing Organization Address [facility]/Zipcode Phone Number [facility] [address] [place] [address] [facility] [address] [place] [address] * Urine Nitrite (10/27/2013 3:37 PM CDT) Nitrite Urine Negative Negative [facility] Specimen Urine Performing Organization Address [facility]/Zipcode Phone Number [facility] [address] [place] [address] * Urinalysis (10/27/2013 3:37 PM CDT) Appearance, Yellow [facility] Urine [facility] Glucose Urine Negative Negative mg/dL [facility] Bilirubin Urine Negative Negative [facility] Ketones Urine Negative Negative mg/dL [facility] Specific 1.010 1.001 - 1.030 [facility] [place], UA [facility] Hemoglobin Negative Negative [facility] PH Urine 6.0 5.0 - 8.0 [facility] Protein Urine Negative Negative mg/dL [facility] Qual [facility] Urobilinogen Negative Negative EU/dL [facility] Leukocyte Negative Negative [facility] Esterase [facility] Specimen Urine Performing Organization Address [facility] Phone Number [facility] [phone] [place] [address] * C-Reactive Protein (10/27/2013 3:37 PM CDT) Pathologist [facility] C Reactive 6.4Comment: Infection or 0.0 - 10.0 mg/L [facility] Protein Inflammation >10.0 mg/L [facility] Specimen Blood Performing Organization Address [facility] Phone Number [facility] [address] [address] [facility]ORATOR[facility] * Erythrocyte Sedimentation Rate (10/27/2013 3:37 PM CDT) Pathologist [facility] Sed Rate 7 0 - 17 mm/h [facility] Specimen Blood Performing Organization Address [facility] [place] Phone Number [facility] [id number] [place] [address] * APTT (10/27/2013 3:37 PM CDT) Pathologist [facility] APTT 28 22 - 34 sec [facility] Specimen Blood Performing Organization Address [facility] [place] Phone Number [facility] [address] [address] * Prothrombin Time/INR (10/27/2013 3:37 PM CDT) Pathologist [facility] Protime 13.3 11.7 - 14.3 sec [facility] INR 1.0 0.9 - 1.1 [facility] Specimen Blood Performing Organization Address [facility] [place] Phone Number [facility] [phone] [place] [address] * Urinalysis Reflex (10/27/2013 3:37 PM CDT) UA Reflex Complete [facility] Specimen Urine Performing Organization Address [facility] [place] Phone Number [facility] [address] [place] [address] * Basic Metabolic Panel (10/27/2013 3:37 PM CDT) Sodium 135 133 - 147 MEQ/L [facility] Potassium 4.6 3.5 - 5.3 MEQ/L [facility] Chloride 93 (L) 96 - 112 MEQ/L [facility] Carbon Dioxide 30 20 - 32 MEQ/L [facility] Anion Gap 12 5 - 17 [facility] Calcium 9.4 8.4 - 10.5 mg/dL [facility] Glucose 106 (H) 70 - 100 mg/dL [facility] Blood Urea 16 7 - 26 mg/dL [facility] Nitrogen [facility] Creatinine 0.7 0.4 - 1.1 mg/dL [facility] eGFR Female AA 99 [facility] Comment: [facility] Chronic Kidney Disease less than 60 mL/min/1.73 sq.m Kidney failure less than 15 mL/min/1.73 sq.m eGFR Female 82 [facility] Non-AA Comment: [facility] Chronic Kidney Disease less than 60 mL/min/1.73 sq.m Kidney failure less than 15 mL/min/1.73 sq.m Specimen Blood Performing Organization Address City/State/Zipcode Phone Number [facility] [address] [place] [address] documented in this encounter Visit Diagnoses Not [...]
--- OUTSIDE RECORDS SUMMARY | 2018-11-11 04:18 | XMS REPORT | Encounter Summary ---
Author Author [facility] Organization [facility] Address Unknown Phone Unavailable Care Team Providers Care Fund Accountant Name Role Phone Ange Frazier MD PCP Encounter Details Care Team Description Date Type Department Heavenly Diego, RN ANP [address] [facility] [address] [place] [address] [phone] 08/11/2013 [facility] - Hist [facility] [...]
--- OUTSIDE RECORDS SUMMARY | 2018-11-11 04:18 | XMS REPORT | Encounter Summary ---
Author Author [facility] Organization [facility] Address Unknown Phone Unavailable Care Team Providers Care Sports Health Club Membership Advisors Name Role Phone Ange Frazier MD PCP Encounter Details Care Team Description Date Type Department Oseas Martins MD [address] [address] 08/15/2013 [facility] [...] Martins MD - 08/15/2013 3:00 PM CDT [address] [address] August 15, 2013 Ange Frazier MD [address] [address] RE: PAMELA VÁSQUEZ : 1940 Chart #: [id number] Visit provider: Oseas Martins M.D. Visit location: [facility] Dear Dr. 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
--- OUTSIDE RECORDS SUMMARY | 2018-11-11 04:18 | XMS REPORT | Encounter Summary ---
Author Author [facility] Organization [facility] Address Unknown Phone Unavailable Care Team Providers Care Labor Commissioner Name Role Phone Ange Frazier MD PCP Encounter Details Care Team Description Date Type Department Oseas Martins MD [address] [place] [address] 06/22/2013 [facility] - [facility] Visit Social History Date [...]
--- OUTSIDE RECORDS SUMMARY | 2018-11-11 04:18 | XMS REPORT | Encounter Summary ---
Author Author [facility] Organization [facility] Address Unknown Phone Unavailable Care Team Providers Care Retail District Manager Name Role Phone Ange Frazier MD PCP Encounter Details Care Team Description Date Type Department Screening 09/25/2013 [place] [address] Social History Date Tobacco Use Types Packs/Day [...] 1:26 PM CDT) Specimen Narrative Performed At [facility] NAME: PAMELA VÁSQUEZ : [id number] GENDER:f MRN: KEN NUM:[id number] TEST:Coronary Calcium Score TEST DATE: TEST LOCATION:[facility] INPATIENT: INDICATION FOR TEST:Hypertension, Hyperlipidemia, Positive Family [...] for further information. Graham Pelletier MD [address] [facility], [address] [place] [address] PROVIDER APPROVAL DATETIME:2013-09-25 13:25:45.0 Procedure Note Interface, External Ris In - 09/26/2013 8:40 AM CDT NAME: PAMELA VÁSQUEZ : [id number] GENDER: f MRN: ACCOUNT NUM: [id number] TEST: Coronary Calcium Score TEST DATE: TEST LOCATION: [facility] INPATIENT: INDICATION FOR TEST: Hypertension, Hyperlipidemia, Positive [...] for further information. Graham Pelletier MD [address] [facility], [address] [place] [address] PROVIDER APPROVAL DATETIME: 2013-09-25 13:25:45.0 Performing Organization Address City/State/Zipcode Phone Number [facility] [address] [facility] [place] [address] documented in this encounter Visit Diagnoses Diagnosis Screening Screening for unspecified condition documented in this encounter
--- OUTSIDE RECORDS SUMMARY | 2018-11-11 04:18 | XMS REPORT | Encounter Summary ---
Author Author [facility] Organization [facility] Address Unknown Phone Unavailable Care Team Providers Care Uniform Maker Name Role Phone Ange Frazier MD PCP Reason for Visit * Reason Comments Headache Since last night. Saw Dr Frazier today and Dr Frazier told the pt to come here. Dizziness Since last night. Encounter Details Care Team Description Date Type Department Izabel Michelle MD [address] [place] [address] [phone] Emergency, Physician, Vertigo (Primary Dx) 09/15/2013 [place] [address] Social History Date Tobacco Use Types Packs/Day [...] stores and other places when you can. [phone] Prema Acosta, [address] [facility], [place] [address]. All rig hts reserved. This information is not intended as a substitute for professional medical care. Always follow your healthcare professional's instructions. * Attachments The following attachments cannot be sent through Care Everywhere.* BENIGN POSITIONAL VERTIGO (BANGLADESHI) documented in this encounter Medications at Time [...] waiting for radiology; voicing "dull headache" * Izable Michelle MD - 09/15/2013 5:41 PM CDT [...] had right leg numbness. She saw her [facility] doctor today who sent her to the [...] segments show no evid ence of ischemia. [facility] [...] the hospital encounter of 09/15/13 (from the [facility] 24 hour(s)) CBC AND DIFF (MANUAL DIFF [...] of the right P1 segment. Dictation Location: [facility] MRI HEAD WO CONTRAST (Canceled) MRA NECK W WO CONTRAST (Results Pending) MRI HEAD W WO CONTRAST (Results Pending) Juan José Bella MD [address] [place] [phone] Schedule an appointment as soon as possible for a visit As needed ED Clinical Impression SNOMED CT(R) 1. Vertigo VERTIGO Izabel Michelle MD 09/15/13 [id number] documented in this encounter Plan of Treatment [...] Narrative Performed At Patient: GUERDA VÁSQUEZ Phone#: [facility] Rec#: [id number] Sex#:F # 1940 Cindy#:[id number] Location:[place] [address]Accession#: [id number] Procedure Requested:[id number] MRA NECK W WO CONTRAST Reason for [...] 10:09 PM CDT Patient: PAMELA VÁSQUEZ Phone#: [facility] Rec#: [id number] Sex#: F # 1940 Cindy#: [id number] Location: [place] [address] Procedure Requested: [id number] MRA NECK W WO CONTRAST Reason for [...] this region. Patent vertebral arteries. Dictation Location: [facility] Performing Organization Address City/State/Zipcode Phone Number [facility] * MRI Head w wo contrast (09/15/2013 8:20 PM CDT) Specimen Impressions Performed At IMPRESSION: [place] No acute findings. Chronic microvascular ischemic change. Preliminary report provided by [facility]. Dictation location: [facility] Narrative Performed At Patient: GUERDA VÁSQUEZ Sex#:F # 1940 Cindy#:[id number] [address]#: [id number] Procedure Requested:[id number] MRI HEAD W WO CONTRAST Reason for [...] PAMELA VÁSQUEZ Sex#: F # 1940 Cindy#: [id number] Location: [facility] Procedure Requested: [id number] MRI HEAD W WO CONTRAST Reason for [...] microvascular ischemic change. Preliminary report provided by [facility]. Dictation location: [facility] Performing Organization Address City/State/Zipcode Phone Number [facility]IME[facility] * MRA Head wo contrast (09/15/2013 8:09 PM CDT) Specimen Impressions Performed At Impression: [facility] Possible mild stenosis of the right P1 segment. Dictation Location: [facility] Narrative Performed At Patient: GUERDA VÁSQUEZ Phone#: med Rec#: [id number] Sex#:F # 1940 Cindy#:[id number] Location:[facility] [place]-01Accession#: [id number] Procedure Requested:[id number] MRA HEAD WO CONTRAST Reason for Exam:dizzines [...] 9:45 PM CDT Patient: PAMELA VÁSQUEZ Phone#: [facility] Rec#: [id number] Sex#: Delfino # 1940 Cindy#: [id number] Location: [facility] Procedure Requested: [id number] MRA HEAD WO CONTRAST Reason for Exam: [...] of the right P1 segment. Dictation Location: [facility] Performing Organization Address City/State/Zipcode Phone Number [facility] * CT Head wo contrast (09/15/2013 6:00 PM CDT) Specimen Impressions Performed At Impression: [facility] 1. No CT evidence of intracranial hemorrhage, mass, or acute infarct. 2. White matter changes suggestive of chronic small vessel ischemic disease. Narrative Performed At Patient: GUERDA VÁSQUEZ Sex#:Delfino # 1940 Cindy#:[id number] Location:[facility]-01Accession#: [id number] Procedure Requested:[id number] CT HEAD WO CONTRAST Reason for Exam:dizzy [...] PAMELA VÁSQUEZ Sex#: Delfino # 1940 Cindy#: [id number] Location: [facility] Procedure Requested: [id number] CT HEAD WO CONTRAST Reason for Exam: [...] Name PAMELA VÁSQUEZ Date of Birth1940 SexF [id number] Facility [facility] Service Date 09/15/2013, 17:07:26 66 144 88 [phone] 66 50 -55 -15 24 31 - BORDERLINE ECG - SINUS RHYTHM normal P axis, V-rate 50-99 PROBABLE LEFT ATRIAL ABNORMALITY P \\T\\gt;50mS, \\T\\lt;-0.10mV V1 BORDERLINE LEFT AXIS DEVIATION QRS axis (-15,-29) FINAL REPORT Procedure Note Interface, External Ris In - 09/22/2013 2:00 PM CDT Name PAMELA VÁSQUEZ Date of 1940 Sex F Visit [id number] Facility [facility] Service Date 09/15/2013, 17:07:26 66 144 88 [phone] 66 50 -55 -15 24 31 - BORDERLINE ECG - SINUS RHYTHM normal P axis, V-rate 50-99 PROBABLE LEFT ATRIAL ABNORMALITY P \\T\\gt;50mS, \\T\\lt;-0.10mV V1 BORDERLINE LEFT AXIS DEVIATION QRS axis (-15,-29) FINAL REPORT Performing Organization Address City/[facility] [email or web address] Phone Number TRACEMASTER * Prothrombin Time/INR (09/15/2013 5:05 PM CDT) Pathologist [facility] Protime 12.5 11.7 - 14.3 sec [facility] INR 1.0 0.9 - 1.1 [facility] Specimen Blood Performing Organization Address [facility] [email or web address] Phone Number [facility] [address] [place], [place] [address] * Troponin (09/15/2013 5:05 PM CDT) [facility] Troponin <0.01 0.00 - 0.03 ng/mL [facility] Comment: [facility] Troponin ValueInterpretation 0.00 - 0.03 Healthy 0.04 - 0.12 Increased Cardiac Risk >0.12M yocardial Infarction Troponin may not become elevated until 6 to 8 hours after onset of symptoms. Specimen Blood Performing Organization Address [facility] [email or web address] Phone Number [facility] [address] [place] [address] * Comprehensive Metabolic Panel (09/15/2013 5:05 PM CDT) Pathologist [facility] Sodium 142 133 - 147 MEQ/L [facility] Potassium 4.3 3.5 - 5.3 MEQ/L [facility] Chloride 102 96 - 112 MEQ/L [facility] Carbon Dioxide 27 20 - 32 MEQ/L [facility] Anion Gap 12 5 - 17 [facility] Calcium 9.1 8.4 - 10.5 mg/dL [facility] Glucose 98 70 - 100 mg/dL [facility] Protein Total 6.8 6.0 - 8.2 g/dL [facility] Serum [facility] Albumin 4.2 3.5 - 5.0 g/dL [facility] Alkaline 90 42 - 140 IU/L [facility] Phosphatase [facility] Alanine 38 13 - 69 IU/L [facility] Aminotransferas [facility] e Aspartate 45 15 - 46 IU/L [facility] Aminotransferas [facility] e Bilirubin Total 0.5 0.2 - 1.3 mg/dL [facility] Blood Urea 20 7 - 26 mg/dL [facility] Nitrogen [facility] Creatinine 0.7 0.4 - 1.1 mg/dL [facility] eGFR Female AA 99 [facility] Comment: [facility] Chronic Kidney Disease less than 60 mL/min/1.73 sq.m Kidney failure less than 15 mL/min/1.73 sq.m eGFR Female 82 [facility] Non-AA Comment: [facility] Chronic Kidney Disease less than 60 mL/min/1.73 sq.m Kidney failure less than 15 mL/min/1.73 sq.m Specimen Blood Performing Organization Address City/State/Zipcode Phone Number [facility] [address] [place] [address] * Complete Blood Count and Differential (manual count if needed) (09/15/2013 5:05 PM CDT) WBC 10.44 4.00 - 11.00 TH/uL [facility] RBC 4.36 4.00 - 5.00 MIL/uL [facility] Hemoglobin 13.9 12.0 - 15.0 g/dL [facility] Hematocrit 42 36 - 45 % [facility] MCV 95 80 - 99 fL [facility] MCH 32 27 - 34 pg [facility] MCHC 34 32 - 36 % [facility] RDW 11.9 9.0 - 14.5 % [facility] Platelet Count 267 140 - 400 TH/uL [facility] MPV 10.5 9.4 - 12.3 fL [facility] Nucleated RBCs 0 0 - 0 /100 [facility] % Neutrophils 53 45 - 78 % [facility] %Lymphocytes 35 15 - 47 % [facility] %Monocytes 10 0 - 12 % [facility] %Eosinophils 0 0 - 7 % [facility] %Basophils 1 0 - 2 % [facility] % Imm Grans 0 0 - 1 % [facility] # Granulocytes 5.59 1.70 - 6.80 TH/uL [facility] # Lymphocytes 3.68 (H) 1.00 - 3.30 TH/uL [facility] # Monocytes 1.08 (H) 0.20 - 0.90 TH/uL [facility] # Eosinophils 0.03 0.00 - 0.40 TH/uL [facility] # Basophils 0.07 0.00 - 0.10 TH/uL [facility] Specimen Blood Performing Organization Address City/State/Zipcode Phone Number [facility] [address] [place] [address] documented in this encounter Visit Diagnoses Diagnosis [...]
--- OUTSIDE RECORDS SUMMARY | 2018-11-11 04:18 | XMS REPORT | Encounter Summary ---
Author Author [facility] Organization [facility] Address Unknown Phone Unavailable Care Team Providers Care Promotions Specialist Name Role Phone Ange Frazier MD PCP Encounter Details Care Team Description Date Type Department Oseas Martins MD [address] [place] [address] 07/25/2013 [facility] Visit Social History Date [...]
--- OUTSIDE RECORDS SUMMARY | 2018-11-11 04:18 | XMS REPORT | Encounter Summary ---
Author Author [facility] Organization [facility] Address Unknown Phone Unavailable Care Team Providers Care Financial Systems Manager Name Role Phone Ange Frazier MD PCP Encounter Details Care Team Description Date Type Department Oseas Martins MD [address] [address] 08/10/2013 [facility] - Hist [facility] Visit Social History [...] of Information RE: PAMELA VÁSQUEZ : 1940 [facility] is requesting protected health informat ion from: Dr. Ange Frazier Purpose: Continuation of care Please release records to the following [facility] Office: [facility] Office [address] [place] [address] Fax to : Attention : Chart Marker Machine Attendant--Shiela PH: [phone] Martins on 08/15 [...]
--- OUTSIDE RECORDS SUMMARY | 2018-11-11 04:18 | XMS REPORT | Encounter Summary ---
Author Author [facility] Organization [facility] Address Unknown Phone Unavailable Care Team Providers Care Presser Hand Name Role Phone Ange Frazier MD PCP Encounter Details Care Team Description Date Type Department Oseas Martins MD [address] [place] [address] 09/13/2013 [facility] Visit Social History [...]
--- OUTSIDE RECORDS SUMMARY | 2018-11-11 04:18 | XMS REPORT | Encounter Summary ---
Author Author [facility] Organization [facility] Address Unknown Phone Unavailable Care Team Providers Care Hydrochloric Manufacturing Supervisor Name Role Phone Ange Frazier MD PCP Encounter Details Care Team Description Date Type Department Oseas Martins MD [address] [address] 06/15/2013 [facility] - Hist [facility] CL[facility]IC Visit Social [...] Oseas Martins MD - 06/15/2013 12:12 PM ARTIFICIAL TEETH INSPECTOR STAT 2ND REQUEST Release of Information RE: PAMELA VÁSQUEZ : 1940 [facility] is requesting protected health informat ion from: Dr. Ange Frazier Purpose: Continuation of care Please release records to the following [facility] Office: [facility] Office [address] [place] [address] Fax to : Attention : Chart Tow Truck Operator--Shiela PH: [phone] Martins on 06/19 [...] above address via the [employer]. Postal Service. FICIAL TEETH INSPECTOR documented in this encounter Plan of Treatment Not on filedocumented as of this encounter Visit Diagnoses Not on filedocumented in this encounter
--- OUTSIDE RECORDS SUMMARY | 2018-11-11 04:19 | XMS REPORT | Encounter Summary ---
Author Author [facility] Organization [facility] Address Unknown Phone Unavailable Care Team Providers Care Wooden Frame Builder Name Role Phone Ange Frazier MD PCP Encounter Details Care Team Description Date Type Department Oseas Martins MD [address] [address] 05/17/2012 [facility] Result [facility] [address] [place] [address] Social History Date Tobacco Use Types Packs/Day [...] heart block or pauses. Performing Organization Address City/State/[facility] Services[facility] Phone Number [facility]EXTGEN documented in this encounter Visit Diagnoses Not on filedocumented in this encounter
--- OUTSIDE RECORDS SUMMARY | 2018-11-11 04:19 | XMS REPORT | Encounter Summary ---
Author Author [facility] Organization [facility] Address Unknown Phone Unavailable Care Team Providers Care Kier Pleater Name Role Phone Ange Frazier MD PCP Encounter Details Care Team Description Date Type Department Oseas Martins MD [address] [place] [address] 04/17/2013 [facility] Visit Social History Date [...]
--- OUTSIDE RECORDS SUMMARY | 2018-11-11 04:19 | XMS REPORT | Encounter Summary ---
Author Author [facility] Organization [facility] Address Unknown Phone Unavailable Care Team Providers Care Home Health Administrator Name Role Phone Ange Frazier MD PCP Encounter Details Care Team Description Date Type Department Slnc, Historical 05/31/2012 [facility] Social History Date Tobacco [...] Comments Vital Sign 142/75 05/31/2012 1:18 PM COUNSELING AIDE Blood Pressure 70 05/31/2012 1:18 PM COUNSELING AIDE Pulse - - Temperature - - Respiratory Rate - - Oxygen Saturation - - Inhaled Oxygen Concentration 63.5 kg (140 lb) 05/31/2012 1:18 PM COUNSELING AIDE Weight - - Height 24.8 05/20/2012 1:24 PM COUNSELING AIDE Body Mass Index documented in this encounter Plan of Treatment Not on filedocumented as of this encounter Visit Diagnoses Not on filedocumented in this encounter
--- OUTSIDE RECORDS SUMMARY | 2018-11-11 04:19 | XMS REPORT | Encounter Summary ---
Author Author [facility] Organization [facility] Address Unknown Phone Unavailable Care Team Providers Care Water Main Pipe Layer Name Role Phone PCP Unavailable Encounter Details Care Team Description Date Type Department Oseas Maritns MD [facility] [address] [address] 05/06/2012 [facility] 06/08/[address] [place] [address] Social History Date Tobacco Use Types Packs/Day [...]
--- OUTSIDE RECORDS SUMMARY | 2018-11-11 04:19 | XMS REPORT | Encounter Summary ---
Author Author [facility] Organization [facility] Address Unknown Phone Unavailable Care Team Providers Care Informatics Pharmacist Name Role Phone Ange Frazier MD PCP Encounter Details Care Team Description [place] [address] [facility] [address] [place] [address] [phone] 03/07/2012 [facility] - [facility] Visit Social History Date [...]
--- OUTSIDE RECORDS SUMMARY | 2018-11-11 04:19 | XMS REPORT | Encounter Summary ---
Author Author [facility] Organization [facility] Address Unknown Phone Unavailable Care Team Providers Care Residential Air Sealing Technician Name Role Phone Ange Frazier MD PCP Encounter Details Care Team Description Date Type [place] [address] [facility] [address] [place] [address] [phone] 03/21/2012 [facility] Hist [facility] Visit Social History [...]
--- OUTSIDE RECORDS SUMMARY | 2018-11-11 04:19 | XMS REPORT | Encounter Summary ---
Author Author [facility] Organization [facility] Address Unknown Phone Unavailable Care Team Providers Care Clay Mine Cutting Machine Operator Name Role Phone Ange Frazier MD PCP Encounter Details Care Team Description Date Type Department Oseas Martins MD [address] [place] [address] 05/07/2012 [facility] [...]
--- OUTSIDE RECORDS SUMMARY | 2018-11-11 04:19 | XMS REPORT | Encounter Summary ---
Author Author [facility] Organization [facility] Address Unknown Phone Unavailable Care Team Providers Care Blue Line Trimmer Name Role Phone Ange Frazier MD PCP Encounter Details Care Team Description Date Type Department [facility] ProviderJavon MD 05/17/2012 [facility] Result Social History Date [...]
--- OUTSIDE RECORDS SUMMARY | 2018-11-11 04:19 | XMS REPORT | Encounter Summary ---
Author Author [facility] Organization [facility] Address Unknown Phone Unavailable Care Team Providers Care Music Composition Teacher Name Role Phone Ange Frazier MD PCP Encounter Details Care Team Description Date [place] [address] [facility] [address] [place] [address] [phone] 05/10/2012 [facility] Visit Social History Date [...]
--- OUTSIDE RECORDS SUMMARY | 2018-11-11 04:19 | XMS REPORT | Encounter Summary ---
Author Author [facility] Organization [facility] Address Unknown Phone Unavailable Care Team Providers Care Head Of Precision Targeting Name Role Phone PCP Unavailable Encounter Details Care Team Description Date Type Department Oseas Martins MD [facility] [address] [address] Other dyspnea and respiratory abnormality 05/17/[address] [address] Social History Date Tobacco Use Types Packs/Day [...] Routine 05/17/2012 SPECT REST STRESS 8:30 AM ELECTROMEDICAL EQUIPMENT TECHNICIAN documented in this encounter Results * CV MPI Pharmacologic Spect rest stress (05/17/2012 8:30 AM ELECTROMEDICAL EQUIPMENT TECHNICIAN) Specimen Narrative Performed At NAME: PAMELA VÁSQUEZ [facility] :[id number] AGE: 71 GENDER:F ACCOUNT NUM:[id number] TEST:STRESS ONLY SYMPTOM LIMITED EXERCISE/REGADENOSON SESTAMIBI SPECT [...] fraction normal at 79%. Fede Madera MD [address] , [address] [place] [address] DICTATED DATE: 2012-05-17 00:00:00.0 SCALLOP BINDER DATETIME: 2012-05-17 12:13:01.0 ACTUAL TEST TIME: PROVIDER APPROVAL DATETIME: 2012-05-17 12:13:37.0 Procedure Note Interface, Rad Conversion - 06/27/2013 11:21 AM CDT NAME: PAMELA VÁSQUEZ : [id number] AGE: 71 GENDER: F ACCOUNT NUM: [id number] TEST: STRESS ONLY SYMPTOM LIMITED EXERCISE/REGADENOSON SESTAMIBI [...] normal at 79%. Fede Madera MD [address] [facility], [address] [place] [address] DICTATED DATE: 2012-05-17 00:00:00.0 SCALLOP BINDER DATETIME: 2012-05-17 12:13:01.0 ACTUAL TEST TIME: PROVIDER APPROVAL DATETIME: 2012-05-17 12:13:37.0 Performing Organization Address City/State/Zipcode Phone Number [facility] [address] [facility] [place] [address] documented in this encounter Visit Diagnoses Diagnosis Other dyspnea and respiratory abnormality documented in this encounter
--- OUTSIDE RECORDS SUMMARY | 2018-11-11 04:19 | XMS REPORT | Encounter Summary ---
Author Author [facility] Organization [facility] Address Unknown Phone Unavailable Care Team Providers Care Precision Filer Hand Name Role Phone PCP Unavailable Encounter Details Care Team Description Date Type Department Oseas Martins MD [facility] [address] [address] 03/15/2012 [facility] 05/05/[address] [place] [address] Social History Date Tobacco Use Types Packs/Day [...]
--- OUTSIDE RECORDS SUMMARY | 2018-11-11 04:19 | XMS REPORT | Encounter Summary ---
Author Author [facility] Organization [facility] Address Unknown Phone Unavailable Care Team Providers Care Director Of Occupational Health Name Role Phone Ange Frazier MD PCP Encounter Details Care Team Description Date Type Department Oseas Martins MD [address] [address] 05/20/2012 [facility] Visit Social History Date Tobacco [...] Comments Vital Sign 130/74 05/20/2012 1:24 PM TIE PULLER Blood Pressure 76 05/20/2012 1:24 PM TIE PULLER Pulse - - Temperature - - Respiratory Rate - - Oxygen Saturation - - Inhaled Oxygen Concentration 65.8 kg (145 lb) 05/20/2012 1:24 PM TIE PULLER overweight Weight 160 cm (5' 3") 05/20/2012 1:24 PM TIE PULLER Height 25.69 05/20/2012 1:24 PM TIE PULLER Body Mass Index documented in this encounter Progress Notes * Oseas Martins MD - 05/20/2012 1:30 PM TIE PULLER [facility] Office [address] [place] [address] May 20, 2012 Ange Frazier MD [address] [address] RE: PAMELA VÁSQUEZ : 1940 Chart #: [id number] Visit provider: Oseas Martins M.D. Visit location: [facility] Dear Dr. Frazier: I had the pleasure [...] Constitutional: Fatigue, Night sweats Pulmonary: Daytime drowsiness /POKER PROP PLAYER: Postmenopausal Musculoskeletal/Dermatology: Myalgias, Arthralgias, Skin rash Hematology: [...] Sincerely, Oseas Martins M.D. DLS/tls F: 05/31/2012 PULLER documented in this encounter Plan of Treatment Not on filedocumented as of this encounter Visit Diagnoses Not on filedocumented in this encounter
--- OUTSIDE RECORDS SUMMARY | 2018-11-11 04:19 | XMS REPORT | Encounter Summary ---
Author Author [facility] Organization [facility] Address Unknown Phone Unavailable Care Team Providers Care Reproduction Order Processor Name Role Phone Ange Frazier MD PCP Encounter Details Care Team Description Date Type Department Ivan Morrow MD No Forwarding Address 11/29/2012 Hist-Visit [facility] Social History Date Tobacco [...] . : 01:53pm .T: Return Patient .PV: [facility] [address] [place] [address] [facility] [place] [address] [place] [address] [place], [place] [id number] [place] [address] [place] [address] Celi Morrow M.D. Ivan Morrow M.D. Ann Cuello M.D. Rachelle Prabhakar M.D. Bindu Mathias D.O. Junior Simpson M.D. Jodi Moore M.D. Angelika Amaya M.D. Neal Castro M.D. Clarisse Bryson, MSN,RN,ANP, [facility] Juan José Colbert M.D., Ph.D. Dat Jewell M.D. Bridger Velazco M.D. . 11/29/12 Ange Frazier MD [address] [address] RE: Sydnee Love : [address] Frazier: I saw your patient Sydnee Love, date of 42 today in neurological [facility]. The following medication was reported to me [...] in follow up on 11/29/12 at our [facility] Office for continued evaluation of cerebrovascular disease [...] ascencio Sincerely, :drew CC: Oseas Martins M.D. [id number] [place] [address] # SIGNED BY Ivan Morrow MD ([facility]) 11/29/2012 06:26PM documented in this encounter Plan of Treatment Not on filedocumented as of this encounter Visit Diagnoses Not on filedocumented in this encounter
--- OUTSIDE RECORDS SUMMARY | 2018-11-11 04:19 | XMS REPORT | Encounter Summary ---
Author Author [facility] Organization [facility] Address Unknown Phone Unavailable Care Team Providers Care Commis Chef Name Role Phone Ange Frazier MD PCP Encounter Details Care Team Description Date Type Department [facility] Javon Gamboa MD 05/17/2012 [facility] - Hist [facility] Visit Social History Date Tobacco Use Types Packs/Day Years Used Never Assessed Sex Assigned at Date Recorded Not on file Industry Job Start Date Occupation Not on file Not on file Not on file Travel End Travel History Travel Start No recent travel history available. documented as of this encounter Progress Notes * [facility] Javon Gamboa MD - 05/17/2012 3:00 PM [facility] Office [address] [place] [address] Holter Report 05/17/2012 3:00 PM Ange Frazier MD [address] [address] RE: PAMELA VÁSQUEZ : 1940 Chart #: [id number] Medications: Lisinopril 10 Mg take 1 tablet [...]
--- OUTSIDE RECORDS SUMMARY | 2018-11-11 04:19 | XMS REPORT | Encounter Summary ---
Author Author [facility] Organization [facility] Address Unknown Phone Unavailable Care Team Providers Care Office Nurse Name Role Phone Ange Frazier MD PCP Encounter Details Care Team Description Date Type Department Ivan Morrow MD No Forwarding Address 05/31/2012 Hist-Visit [facility] Social History Date Tobacco Use Types Packs/Day Years Used Never Assessed Sex Assigned at Date Recorded Not on file Industry Job Start Date Occupation Not on file Not on file Not on file Travel End Travel History Travel Start No recent travel history available. documented as of this encounter Progress Notes * Ivan Morrow MD - 05/31/2012 1:55 PM [employer] . : 01:55pm .T: Return Patient .PV:[facility] Celi Morrow M.D. [address] [place] [address] [address] [facility] Ivan Morrow M.D. [address] [place] [address] [place], [place] [address] [place] [address] [place] [address] Adeola Pryor M.D. Rachelle Prabhakar M.D. Junior Simpson M.D. Jodi Moore M.D. Angelika Amaya M.D. F ax: Neal Castro M.D. Deborah L. Sob[place], MSN,RN,ANP, [facility] Juan José Colbert M.D., Ph.D. Dat Jewell M.D. Bridger Velazco M.D. 05/31/12 Ange Frazier MD [address] [address] RE: Sydnee Love : 42 Dear Ange: [...] in follow up on 05/31/12 at our [facility] Office for continued evaluation of cerebrovascular disease. [...] months. Sincerely, :drew CC: Oseas Martins M.D. [id number] [facility] [address] [place] [address] # SIGNED BY Ivan Morrow MD ([facility]) 05/31/2012 02:05PM [facility] TR[facility] documented in this encounter Plan of Treatment Not on filedocumented as of this encounter Visit Diagnoses Not on filedocumented in this encounter
--- OUTSIDE RECORDS SUMMARY | 2018-11-11 04:20 | XMS REPORT | Encounter Summary ---
Author Author [facility] Organization [facility] Address Unknown Phone Unavailable Care Team Providers Care Welt Trimming Machine Operator Name Role Phone Ange Frazier MD PCP Encounter Details Care Team Description Date Type Department Oseas Martins MD [address] [place] [id number] 02/18/2012 [facility] [...]
--- OUTSIDE RECORDS SUMMARY | 2018-11-11 04:20 | XMS REPORT | Encounter Summary ---
Author Author [facility] Organization [facility] Address Unknown Phone Unavailable Care Team Providers Care Electronics Engineer Name Role Phone nAge Frazier MD PCP Encounter Details Care Team Description Date Type Department [facility] ProviderJavon MD 02/03/2012 [facility] Result Social History [...]
--- OUTSIDE RECORDS SUMMARY | 2018-11-11 04:20 | XMS REPORT | Encounter Summary ---
Author Author [facility] Organization [facility] Address Unknown Phone Unavailable Care Team Providers Care Social Service Agency Director Name Role Phone Ange Frazier MD PCP Encounter Details Care Team Description Date Type Department [facility] ProviderJavon MD 02/02/2012 [facility] Social History Date Tobacco Use [...]
--- OUTSIDE RECORDS SUMMARY | 2018-11-11 04:20 | XMS REPORT | Encounter Summary ---
Author Author [facility] Organization [facility] Address Unknown Phone Unavailable Care Team Providers Care Chiropractic Practice Manager Name Role Phone PCP Unavailable Encounter Details Care Team Description Date Type Department Benito Mulligan MD no forwarding address Cuate Martinez DO [address] [place] [address] [phone] Syncope and collapse 02/01/[address] [facility] [place] [place] 02/04/[address] [place] [address] Social History Date Tobacco Use Types Packs/Day Years Used Never Assessed Sex Assigned at Date Recorded Not on file Industry Job Start Date Occupation Not on file Not on file Not on file Travel End Travel History Travel Start No recent travel history available. documented as of this encounter Discharge Summaries * Benito Mulligan MD - 06/16/2013 7:31 PM LITHOSTRIPPER REPORT Name: PAMELA VÁSQUEZ Date of : [...] by Benito Mulligan On 02/12/12 9:18:44 AM OSTRIPPER documented in this encounter Medications at Time of Discharge Start Date End Date Medication Sig Dispensed Refills cholecalciferol, vitamin Take as 1 0 D3, (VITAMIN D3) 5,000 directed unit Tab documented as of this encounter H&P Notes * MichelleCuateDO - 06/16/2013 7:34 PM LITHOSTRIPPER REPORT Name: PAMELA VÁSQUEZ Date of : [...] time. FAMILY HISTORY: Positive for colon cancer, MS, and CVA. PHYSICAL EXAMINATION: VITAL SIGNS: Upon [...] Martinez DO cc: MD Ivan Iqbal MD OSTRIPPER documented in this encounter Consult Notes * Celi Morrow MD - 06/16/2013 7:33 PM LITHOSTRIPPER REPORT Name: PAMELA VÁSQUEZ Date of : [...] recalls the paramedics examining her, checking her screw machine adjuster automatic and tells me that she tested fine, that she was not having a stroke. She states that her blood pressure was "70/40." Per the silo worker sheet, it was 73/47. She recalls them [...] with documented blood pressure of 73/47 on silo worker's arrival. She was much improved with IV [...] MD Dictated by: cc: Robert Frazier MD OSTRIPPER documented in this encounter Plan of Treatment [...] D DIMER Routine 02/02/2012 2:00 PM CDT [id number] IGG Routine 02/02/2012 AND IGM 2:00 PM [...] 1:07 PM CDT) Specimen Narrative Performed At [facility] Transesophageal Echocardiogram Report Name: PAMELA VÁSQUEZ Date: 02/03/2012 13:07 Chart #: [id number] :1940 Gender: F Location: [facility] Sono:jerica Age:71 Room #:225 Referring: CELI MORROW Indication - TIA 4359 Procedure: The patient was kept NPO after midnight.Informed consent was obtained.The procedure was performed in the [employer]IESEL [employer]ROF[employer] DESIGNER. The patient was sedated with a total [...] PAMELA VÁSQUEZ Date: 02/03/2012 13:07 Chart #: [id number] : 1940 Gender: F Location: [facility] IP Sono: jerica Age: 71 Room #: 225 Referring: CELI MORROW Indication - TIA 4359 Procedure: The patient was kept NPO after midnight. Informed consent was obtained. The procedure was performed in the [employer]OF[employer] DESIGNER. The patient was sedated with a total [...] 15:01 Performing Organization Address City/State/Zipcode Phone Number [facility] [address] [place] [address] * Complete Blood Count (02/03/2012 3:35 AM [...] [place] Specimen Blood Performing Organization Address [facility] Phone Number [facility] [address] [place] [address] [place] * Basic Metabolic Panel (02/03/2012 3:35 [...] mL/min/1.73 sq.m Specimen Blood Performing Organization Address City/[facility] Cent[facility] Phone Number [facility] [address] [place] [address] SUNQUEST * US Abdomen limited (02/02/2012 2:58 PM CDT) Specimen Narrative Performed At [facility]NA Patient:PAMELA VÁSQUEZ Phone #:MTailor Rec#:[id number] Sex:F :1940orp#: [id number] [address] [id number] Procedure Requested: US ABDOMEN LIMITED Reason For Exam: R/O gallstones Exam Ordered:02/02/2012 1418 Exam Date/Time:02/03/2012 0730 Check-in Date/Time:02/02/2012 1542 Attendin HOSPITALIST, PHYSICIAN "" Requestin BENITO MULLIGAN "" Referrin NO, REFERRING Primary Care: [id number] ROBERT FRAZIER MD EXAM:US ABDOMEN LIMITED DATE:Feb [...] ultrasound. Signed (Authenticated, Released) Date-Time: 02/03/2012 0803 Parts Salesman- BARBARA DOWNEY, Staff Radiologist Dictated By- BARBARA DOWNEY, Staff Radiologist Staff Physician- BARBARA DOWNEY, Staff Radiologist Authenticated By- BARBARA DOWNEY, Staff Radiologist Procedure Note Interface, Rad Conversion - 06/16/2013 11:24 PM LITHOSTRIPPER REPORT Patient: PAMELA VÁSQUEZ Phone #: Med Rec#: [id number] Sex: F : 1940 Cindy#: [id number] Location: [place] [address] Check-in#: [id number] Procedure Requested: US ABDOMEN LIMITED Reason For Exam: R/O gallstones Exam Ordered: 02/02/2012 1418 Exam Date/Time: 02/03/2012 0730 Check-in Date/Time: 02/02/2012 1542 Attendin HOSPITALIST, PHYSICIAN "" Requestin BENITO MULLIGAN "" Referrin NO, REFERRING Primary Care: [id number] ROBERT FRAZIER MD EXAM: US ABDOMEN LIMITED [...] ultrasound. Signed (Authenticated, Released) Date-Time: 02/03/2012 0803 Parts Salesman- BARBARA CHOWDHURY M.D., Staff Radiologist Dictated ByJose CHOWDHURY M.D., Staff Radiologist Staff Physician- BARBARA CHOWDHURY M.D., Staff Radiologist Authenticated By- BARBARA CHOWDHURY M.D., Staff Radiologist Performing Organization Address City/State/Zipcode Phone Number [facility] * ECHO TRANSTHORACIC (02/02/2012 2:05 PM CDT) Specimen Narrative Performed At [facility] RAD ECHOCARDIOGRAM REPORT [facility] Name: PAMELA VÁSQUEZ Date: 02/02/2012 14:05 Chart #: [id number] : 1940 Location: [facility] IP Sono: jerica Age: 71 Gender: F Referring: LESLY ENRIQUEZ Room #: 225 Fellow: Indication -TIA Procedure -[id number] Complete Echo 2D/Colorflow/Doppler BP: 99/ 70 HR: [...] PAMELA VÁSQUEZ Date: 02/02/2012 14:05 Chart #: [id number] : 1940 Location: [facility] Sono: jerica Age: 71 Gender: F Referring: LESLY ENRIQUEZ Room #: 225 Fellow: Indication -TIA Procedure -[id number] Complete Echo 2D/Colorflow/Doppler BP: 99 / 70 [...] 02 February 2012 16:18 Performing Organization Address [facility] Center[facility] Phone Number [facility] [address] [place] [address] * D Dimer (02/02/2012 2:00 PM CDT) [facility] D Dimer 0.18Comment: Cutoff value for 0.00 - 0.40 UG/ML [facility]QUEST exclusion of venous FEU thromboembolism is <0.40 ug/mL FEU. Specimen Blood Performing Organization Address [facility] Phone Number [facility] [address] [place] [address] [place] * Homocysteine (02/02/2012 2:00 PM CDT) [facility] Homocysteine 9.8 0.0 - 11.9 UMOL/L [facility]QUEST Comment: Reference Range: <12Optimal 12-15Borderline 16-30Moderate Elevation >30Significant Elevation Specimen Blood Performing Organization [facility] Phone Number [address] [place] [address] [facility]QUEST * Omdd-0-Adcfpdjqwvcl IgG and IgM (02/02/2012 2:00 PM CDT) [...] weeks apart. Specimen Blood Performing Organization Address [facility] Phone Number [facility] [address] [place] [address] SUNQUEST * Activated Protein C Resistance (02/02/2012 2:00 PM CDT) Pathologist [facility] Activated 3.82 2.51 - 20.00 RATIO SUNQUEST Protein C Resistance Specimen Blood Performing Organization Address [facility] Phone Number [facility] [address] [place] [address] SUNQUEST * Antithrombin (02/02/2012 2:00 PM CDT) Pathologist [facility] Antithrombin 108 80 - 130 % SUNQUEST Specimen Blood Performing Organization Address [facility] Phone Number [facility] [address] [place] [address] [place]QUEST * DRVVT APL Testing (02/02/2012 2:00 PM CDT) Pathologist [facility] DRVVT Negative Negative [facility] Specimen Blood Performing Organization Address [facility] Phone Number [facility] [address] [place] [address] [place]QUEST * Factor VIII Assay (02/02/2012 2:00 PM CDT) Pathologist [facility] Factor VIII 184 (H) 50 - 150 % [facility] Assay Specimen Blood Performing Organization [facility] Phone Number [facility] [address] [place] [address] [place]QUEST * Antiphospholipid Panel II (02/02/2012 2:00 PM CDT) Pathologist [facility] APTT 26 22 - 34 SEC [facility]QUEST Protime 13.5 11.7 - 14.3 SEC [facility] INR 1.1 0.9 - 1.1 [facility] Specimen Blood Performing Organization Address [facility] Phone Number [facility] [address] [place] [address] SUNQUEST * Anticardiolipin Antibodies (02/02/2012 2:00 PM [...] weeks apart. Specimen Blood Performing Organization Address [facility] Phone Number [facility] [address] [place] [address] [place]QUEST * Protein C Activity (02/02/2012 2:00 PM CDT) Protein C 172 70 - 210 % [facility]QUEST Activity Specimen Blood Performing Organization Address [facility] Phone Number [facility] [address] [place] [address] SUNQUEST * Protein S Activity (02/02/2012 2:00 PM CDT) Protein S 98 57 - 140 % SUNQUEST Activity Specimen Blood Performing Organization Address [facility] Phone Number [address] [place] [address] SUNQUEST * Prothrombin Gene Mutation (02/02/2012 2:00 PM CDT) Prothrombin Not present Not present [facility] Gene Mutation Prothrombin NOT PRESENT [facility]QUEST Gene Comment: Interpretation NOT PRESENT Analysis of the PCR products of genomic DNA using Prothrombin specific primer and probes with melting curve analysis indicates that the Prothrombin G-->A 28695 mutation is not present. This test was developed and its performance characteristics determined by [facility]. It has not been cleared or approved by the US Food and Drug Administration. The FDA has determined that such clearance or approval is not necessary. Pathologist Reviewed by MARCELO Flanagan M.D. Specimen Blood Performing Organization Address [facility] Phone Number [facility] [address] [place] [address] SUNQUEST * Carotid Duplex bilat (02/02/2012 12:28 PM CDT) Specimen Narrative Performed At [facility] Patient:PAMELA VÁSQUEZ Phone #:MTailor Rec#:[id number] Sex:F :1940orp#: [id number] Location: [facility] 225 Check-in#: [id number] Procedure Requested: US CAROTID DUPLEX BILATERAL Reason For Exam: TIA Exam Ordered:02/02/2012 1105 Exam Date/Time:02/02/2012 1258 Check-in Date/Time:02/02/2012 1228 Attendin HOSPITALIST, PHYSICIAN "" Requestin CELI MORROW Referrin NO, REFERRING DR Primary Care: [id number] ROBERT FRAZIER MD Provided Clinical History:TIA Bilateral [...] detected. Signed (Authenticated, Released) Date-Time: 02/02/2012 1538 Parts Salesman- HUSAM GONZALEZ, Staff Radiologist Dictated By- HUSAM GONZALEZ, Staff Radiologist Staff Physician- HUSAM GONZALEZ, Staff Radiologist Authenticated By- HUSAM GONZALEZ, Staff Radiologist Procedure Note Interface, Rad Conversion - 06/16/2013 11:24 PM LITHOSTRIPPER REPORT Patient: PAMELA VÁSQUEZ Phone #: Med Rec#: [id number] Sex: F : 1940 Cindy#: [id number] Location: [facility] 225 Check-in#: [id number] Procedure Requested: US CAROTID DUPLEX BILATERAL Reason For Exam: TIA Exam Ordered: 02/02/2012 1105 Exam Date/Time: 02/02/2012 1258 Check-in Date/Time: 02/02/2012 1228 Attendin HOSPITALIST, PHYSICIAN "" Requestin CELI MORROW Referrin NO, REFERRING DR Primary Care: [id number] ROBERT FRAZIER MD Provided Clinical History: TIA [...] detected. Signed (Authenticated, Released) Date-Time: 02/02/2012 1538 Parts Salesman- HUSAM CERRATO M.D., Staff Radiologist Dictated By- HUSAM CERRATO M.D., Staff Radiologist Staff Physician- HUSAM CERRATO M.D., Staff Radiologist Authenticated By- HUSAM CERRATO M.D., Staff Radiologist Performing Organization Address [facility] Phone Number [facility] * Triiodothyronine (02/02/2012 3:20 AM CDT) Triiodothyronin 1.0 1.0 - 1.7 NG/ML [facility]QUEST e Specimen Blood Performing Organization Address [facility] Phone Number [facility] [address] [place] [address] SUNQUEST * Lipid Panel (02/02/2012 3:02 AM CDT) Cholesterol 145 100 - 200 MG/DL [facility]QUEST Triglycerides 90 0 - 150 MG/DL [facility] HDL Cholesterol 39 (L) 40 - 110 MG/DL [facility] LDL Cholesterol 88 0 - 99 MG/DL [facility] Cholesterol/HDL 3.7 0.0 - 4.5 [facility]QUEST Ratio Non-HDL 106 0 - 130 MG/DL [facility]QUEST Cholesterol Specimen Blood Performing Organization Address [facility] Phone Number [facility] [address] [place] [address] SUNQUEST * Total Thyroxine (02/02/2012 3:02 AM CDT) Total Thyroxine 7.7 5.5 - 11.0 UG/DL [facility] Specimen Blood Performing Organization Address [facility] Phone Number [facility] [address] [place] [address] [facility] * Troponin (02/01/2012 7:35 PM CDT) Only the most recent of 3 results within the time period is included. Troponin <0.01 0.00 - 0.03 NG/ML [facility] Comment: Troponin ValueInterpretation 0.00 - 0.03 Healthy 0.04 - 0.12 Increased Cardiac Risk >0.12M yocardial Infarction Troponin may not become elevated until 6 to 8 hours after onset of symptoms. Specimen Blood Performing Organization Address [facility] Phone Number [facility] [address] * Culture, Throat for Rapid Strep Screen (02/01/2012 6:45 PM CDT) Specimen Throat Narrative Performed At REPORT [facility] Specimen/Source: THROAT/THROAT Collected: 02/01/2012 18:45 Status: FinalLast Updated: 02/04/2012 09:01 Strep Screen for Group A Strep (Final) Negative for Streptococcus group A by antigen detection. Culture result (Final) No beta hemolytic Streptococcus species isolated Performing Organization Address [facility] Phone Number [facility] [address] [place] [address] [facility] * CT Head wo contrast (02/01/2012 3:20 PM CDT) Specimen Narrative Performed At [facility]PORT [facility] Patient:PAMELA VÁSQUEZ Phone #:MTailor Rec#:[id number] Sex:F :1940orp#: [id number] [facility] [id number] Procedure Requested: [id number] CT HEAD WO CONTRAST Reason For Exam: HEADACHE Exam Ordered:02/01/2012 1313 Exam Date/Time:02/01/2012 1530 Check-in Date/Time:02/01/2012 1313 Attendin EMERGENCY, PHYSICIAN "" Requestin LISSETTE ANNA Referrin CRISTIN, REFERRING Primary Care: [id number] ROBERT FRAZIER MD Provided Clinical History: Headache/vertigo [...] detected Signed (Authenticated, Released) Date-Time: 02/01/2012 1342 Parts Salesman- HUSAM GONZALEZ, Staff Radiologist Dictated By- HUSAM GONZALEZ, Staff Radiologist Staff Physician- HUSAM GONZALEZ, Staff Radiologist Authenticated By- HUSAM GONZALEZ, Staff Radiologist Procedure Note Interface, Rad Conversion - 06/16/2013 11:27 PM LITHOSTRIPPER REPORT Patient: PAMELA VÁSQUEZ Phone #: Med Rec#: [id number] Sex: F : 1940 Cindy#: [id number] Location: Check-in#: [id number] Procedure Requested: [id number] CT HEAD WO CONTRAST Reason For Exam: HEADACHE Exam Ordered: 02/01/2012 1313 Exam Date/Time: 02/01/2012 1530 Check-in Date/Time: 02/01/2012 1313 Attendin EMERGENCY, PHYSICIAN "" Requestin LISSETTE ANNA Referrin CRISTIN, REFERRING Primary Care: [id number] ROBERT FRAZIER MD Provided Clinical History: Headache/vertigo [...] detected Signed (Authenticated, Released) Date-Time: 02/01/2012 1342 Parts Salesman- HUSAM CERRATO M.D., Staff Radiologist Dictated By- HUSAM CERRATO M.D., Staff Radiologist Staff Physician- HUSAM CERRATO M.D., Staff Radiologist Authenticated By- HUSAM CERRATO M.D., Staff Radiologist Performing Organization Address [facility] Phone Number [facility] * Urine Nitrite (02/01/2012 1:01 PM CDT) Nitrite Urine Negative Negative [facility] Specimen Urine Performing Organization Address [facility] Phone Number [address] [place] [address] [facility] * Urinalysis (02/01/2012 1:01 PM CDT) Appearance, Yellow [facility] Urine Specific 1.020 1.001 - 1.030 [facility] [place], UA PH Urine 5.5 5.0 - 8.0 [facility]QUEST Hemoglobin Negative Negative [facility] Urine Leukocyte Negative Negative [facility] Esterase Bilirubin Urine Negative Negative [facility] Glucose Urine Negative Negative MG/DL [facility] Ketones Urine Negative Negative MG/DL [facility] Protein Urine Negative Negative MG/DL [facility] Qual Urobilinogen Negative Negative EU/DL [facility] Urine Specimen Urine Performing Organization Address [facility] Phone Number [address] [place] [address] [place]QUEST * Magnesium (02/01/2012 12:30 PM CDT) Magnesium 2.0 1.4 - 2.7 MG/DL [facility] Specimen Blood Performing Organization Address [facility] Phone Number [facility] [address] [place] [address] [place] * CBC and Diff (manual diff [...] Normal [facility]QUEST Specimen Blood Performing Organization Address City/[facility] Phone Number [address] [place] [address] [facility] * Thyroid Stimulating Hormone (02/01/2012 12:30 PM CDT) Thyroid 0.22 (L) 0.47 - 4.68 UIU/ML [facility] Stimulating Hormone Specimen Blood Performing Organization Address City/[facility] Phone Number [address] [place] [address] [facility]QUEST * XR Chest single view frontal (02/01/2012 12:21 PM CDT) Specimen Narrative Performed At REPORT [facility] Patient:PAMELA VÁSUQEZ Phone #:MTailor Rec#:[id number] Sex:F :1940orp#: [id number] Location: [facility] Check-in#: [id number] Procedure Requested: [id number] DX CHEST SINGLE VIEW Reason For Exam: COUGH Exam Ordered:02/01/2012 1221 Exam Date/Time:02/01/2012 1232 Check-in Date/Time:02/01/2012 1221 Attendin EMERGENCY, PHYSICIAN "" Requestin LISSETTE ANNA Referring: , Primary Care: [id number] FERRO MD Provided Clinical History: COUGH Exam Date: Feb 01, 2012 12:32:00 PM DX CHEST SINGLE VIEW : The lungs are well expanded and clear. The heart and mediastinum appear normal. Signed (Authenticated, Released) Date-Time: 02/01/2012 1245 Parts Salesman- HSUAM GONZALEZ, Staff Radiologist Dictated By- HUSAM GONZALEZ, Staff Radiologist Staff Physician- HUSAM GONZALEZ, Staff Radiologist Authenticated ByJose GONZALEZ, Staff Radiologist Procedure Note Interface, Rad Conversion - 06/16/2013 11:27 PM LITHOSTRIPPER REPORT Patient: PAMELA VÁSQUEZ Phone #: Med Rec#: [id number] Sex: F : 1940 [facility]#: [id number] Location: [facility] Check-in#: [id number] Procedure Requested: [id number] DX CHEST SINGLE VIEW Reason For Exam: COUGH Exam Ordered: 02/01/2012 1221 Exam Date/Time: 02/01/2012 1232 Check-in Date/Time: 02/01/2012 1221 Attendin EMERGENCY, PHYSICIAN "" Requestin LISSETTE ANNA Referring: , Primary Care: [id number] FERRO MD Provided Clinical History: COUGH Exam Date: Feb 01, 2012 12:32:00 PM DX CHEST SINGLE VIEW : The lungs are well expanded and clear. The heart and mediastinum appear normal. Signed (Authenticated, Released) Date-Time: 02/01/2012 9275 Parts Salesman- HUSAM CERRATO M.D., Staff Radiologist Dictated By- HUSAM CERRATO M.D., Staff Radiologist Staff Physician- HUSAM CERRATO M.D., Staff Radiologist Authenticated By- HUSAM CERRATO M.D., Staff Radiologist Performing Organization Address City/State/[facility] Phone Number [facility] documented in this encounter Visit Diagnoses Diagnosis Syncope and collapse documented in this encounter
--- OUTSIDE RECORDS SUMMARY | 2018-11-11 04:20 | XMS REPORT | Encounter Summary ---
Author Author [facility] Organization [facility] Address Unknown Phone Unavailable Care Team Providers Care News Reel Cameraman Name Role Phone Ange Frazier MD PCP Encounter Details Care Team Description Date Type Department Oseas Martins MD [address] [place] [address] 02/29/2012 [facility] Visit Social History Date Tobacco [...]
--- OUTSIDE RECORDS SUMMARY | 2018-11-11 04:20 | XMS REPORT | Encounter Summary ---
Author Author [facility] Organization [facility] Address Unknown Phone Unavailable Care Team Providers Care National Sales Associate Name Role Phone Ange Frazier MD PCP Encounter Details Care Team Description Date Type Department [facility] ProviderJavon MD 02/02/2012 [facility] Result Social History Date Tobacco [...]
--- OUTSIDE RECORDS SUMMARY | 2018-11-11 04:20 | XMS REPORT | Encounter Summary ---
Author Author [facility] Organization [facility] Address Unknown Phone Unavailable Care Team Providers Care Fur Sewer Name Role Phone Ange Frazier MD PCP Encounter Details Care Team Description Date Type Department Oseas Martins MD [address] [address] 02/23/2012 [facility] Visit Social History Date Tobacco [...] Comments Vital Sign 120/78 02/23/2012 10:27 AM IRON ERECTOR Blood Pressure 88 02/23/2012 10:27 AM IRON ERECTOR Pulse - - Temperature - - Respiratory Rate - - Oxygen Saturation - - Inhaled Oxygen Concentration 63.2 kg (139 lb 6.4 oz) 02/23/2012 10:27 AM IRON ERECTOR normal Weight 160 cm (5' 3") 02/23/2012 10:27 AM IRON ERECTOR Height 24.69 02/23/2012 10:27 AM IRON ERECTOR Body Mass Index documented in this encounter Progress Notes * Oseas Martisn MD - 02/23/2012 10:30 AM IRON ERECTOR [facility] Office [address] [place] [address] February 23, 2012 Ange Frazier MD [address] [address] RE: PAMELA VÁSQUEZ : 1940 Chart #: [id number] Visit provider: Oseas Martins M.D. Visit location: [facility] Dear Dr. Frazier: I had the pleasure [...] fast rhythm, Shortness of breath GI: Nausea/Vomiting /DECORATOR CONSULTANT: Postmenopausal Neuro: Disequilibrium Musculoskeletal/Dermatology: Arthralgias Hematology: Bleed [...] for allowing me to participate in PAMELA HOLCOMB's care. If I can be of any further assistance, please do not hesitate to contact me. Sincerely, Oseas Martins M.D. DLS/ss F: 02/24/2012 ERECTOR documented in this encounter Plan of Treatment Not on filedocumented as of this encounter Visit Diagnoses Not on filedocumented in this encounter
--- OUTSIDE RECORDS SUMMARY | 2018-11-11 04:20 | XMS REPORT | Encounter Summary ---
Author Author [facility] Organization [facility] Address Unknown Phone Unavailable Care Team Providers Care Surgical Elastic Knitter Name Role Phone Ange Frazier MD PCP Encounter Details Care Team Description Date Type Department Ivan Morrow MD No Forwarding Address 02/22/2012 Hist-Visit [facility] HIST CLINIC Social History Date Tobacco Use Types Packs/Day Years Used Never Assessed Sex Assigned at Date Recorded Not on file Industry Job Start Date Occupation Not on file Not on file Not on file Travel End Travel History Travel Start No recent travel history available. documented as of this encounter Progress Notes * Ivan Morrow MD - 02/22/2012 3:24 PM SKIP TRACER .D: 12 : 03:24pm .T: Return Patient .PV:[facility] Celi Morrow M.D. [address] [place] [address] [address] [facility] Ivan Morrow M.D. [address] [place] [address] [place], [place] [address] [place] [address] [place] [address] Adeola Pryor M.D. Rachelle Prabhakar M.D. Junior Simpson M.D. Jodi Moore M.D. Angelika Amaya M.D. F ax: Neal Castro M.D. Deborah L. Sobot[place], MSN,RN,ANP, [facility] Juan José Colbert M.D., Ph.D. Dat Floyd M.D. Bridger Velazco M.D. 02/22/12 Ange Frazier MD [address] [place], [place] [id number] CC: Oseas Martins M.D. [address] [facility] [address] [place] [address] RE: Sydnee Love : 42 Dear Ange: [...] in follow up on 02/22/[address] [facility] Office for continued evaluation of cerebrovascular disease. She was seen by Dr. Celi Morrow [place] [facility] for what appears to be a straightforward [...] evaluation by Dr. Martins of cardiology. Sincerely, [facility]:lr # SIGNED BY Ivan Morrow MD ([facility]) 02/22/2012 05:03PM TRACER documented in this encounter Plan of Treatment Not on filedocumented as of this encounter Visit Diagnoses Not on filedocumented in this encounter
--- OUTSIDE RECORDS SUMMARY | 2018-11-11 04:20 | XMS REPORT | Encounter Summary ---
Author Author [facility] Organization [facility] Address Unknown Phone Unavailable Care Team Providers Care Associate Marketing Manager Name Role Phone Ange Frazier MD PCP Encounter Details Care Team Description Date Type Department [facility] ProviderJavon MD 02/02/2012 [facility]Hist [facility] HIST[facility]IC CL[facility]IC Result Social History Date [...]
--- OUTSIDE RECORDS SUMMARY | 2018-11-11 04:21 | XMS REPORT | Encounter Summary ---
Author Author [facility] Organization [facility] Address Unknown Phone Unavailable Care Team Providers Care Rod Straightener Name Role Phone Ange Frazier MD PCP Encounter Details Care Team Description Date Type Department Ivan Morrow MD No Forwarding Address 03/16/2011 PracPart Note [facility] [address] [address] Social History Date Tobacco Use Types Packs/Day Years Used Never Assessed Sex Assigned at Date Recorded Not on file Industry Job Start Date Occupation Not on file Not on file Not on file Travel End Travel History Travel Start No recent travel history available. documented as of this encounter Progress Notes * Ivan Morrow MD - 03/16/2011 4:41 PM TRUCKSMITH . :04:41PM .T:Phone call from patient From: Ivan Morrow ([facility]) Originated by: Ivan Morrow ([facility]) Sent: 011 at 04:41PM To: Erica Pop) Type: CHART Priority: 3 Subject: Phone call from patient they are fine -- ok to exercise --sa 03/16/11 4:56pm I spoke with Sdynee and relayed the above message. She will [...] 125mcg 1 daily 02/27/11 Ange Frazier MD [address] [place] [address] RE: Sydnee Love : 42 Dear Ange: I saw Sydnee Love in the presence of her friend on 02/27/11 at our [facility] Office for evaluation of brief spell of [...] was not feeling well. She told the lead cashier lexa nd was told to sit [...] She was told to go to the [facility] Room. Head CT showed elements of ischemia in the left internal capsule. In the past in 2006, she had an MRI of the brain, which I reviewed. This showed scattered small vessel disease with lacunar areas of ischemia. This was thought perhaps related to her migraine headaches or perhaps to small vessel disease. She was placed back on aspirin by the [facility] Emergency Room. She mistry s been compliant [...] pronator drift. No resting or intention tremor. Dftfew-uv-vwai was intact without dystaxia. I suspect that [...]
--- OUTSIDE RECORDS SUMMARY | 2018-11-11 04:21 | XMS REPORT | Encounter Summary ---
Author Author [facility] Organization [facility] Address Unknown Phone Unavailable Care Team Providers Care Purchasing Manager/Sales Name Role Phone Ange Frazier MD PCP Encounter Details Care Team Description Date Type Department [facility], Historical 02/27/2011 PracPart Note [facility]IST [facility] Social History Date Tobacco Use Types Packs/Day Years Used Never Assessed Sex Assigned at Date Recorded Not on file Industry Job Start Date Occupation Not on file Not on file Not on file Travel End Travel History Travel Start No recent travel history available. 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 : 08:48am Hypertension: yes Father, mother [...]
--- OUTSIDE RECORDS SUMMARY | 2018-11-11 04:21 | XMS REPORT | Encounter Summary ---
Author Author [facility] Organization [facility] Address Unknown Phone Unavailable Care Team Providers Care Director Of Event Management Name Role Phone Ange Frazier MD PCP Encounter Details Care Team Description Date Type Department [facility] ProviderJavon MD 03/05/2011 [facility]-Hist [facility] HISTORIC CLINIC Result Social History [...]
--- OUTSIDE RECORDS SUMMARY | 2018-11-11 04:21 | XMS REPORT | Encounter Summary ---
Author Author [facility] Organization [facility] Address Unknown Phone Unavailable Care Team Providers Care Post Acute Care Nurse Name Role Phone PCP Unavailable Encounter Details Care Team Description Date Type Department [place] [address] [place] [address] [phone] Pain in Joint, Shoulder Region 03/27/2009 [facility] [address] [place] [address] Social History Date Tobacco Use Types Packs/Day [...] 2 VIEWS Routine 03/27/2009 LEFT 10:50 AM DISPATCHER CLERK documented in this encounter Results * XR Humerus min 2 views left (03/27/2009 10:50 AM DISPATCHER CLERK) Specimen Narrative Performed At [facility] Patient:PAMELA VÁSQUEZ Phone #:Med Rec#:[id number] Sex:F :2Corp#: [id number] Location: [facility] Check-in#: [id number] Procedure Requested: [id number] DX HUMERUS MIN 2 VIEW LEFT Reason [...] humerus. Signed (Authenticated, Released) Date-Time: 03/27/2009 1110 Oil And Gas Exploration Technician- MACIEL DUNN, Staff Radiologist Dictated By- MACIEL DUNN, Staff Radiologist Staff Physician- MACIEL DUNN, Staff Radiologist Authenticated ByJose DUNN, Staff Radiologist Procedure Note Interface, Rad Conversion - 06/18/2013 3:20 AM DISPATCHER CLERK REPORT Patient: PAMELA VÁSQUEZ Phone #: Med Rec#: [id number] Sex: F : 1940 Cindy#: [id number] Location: [facility] Check-in#: [id number] Procedure Requested: [id number] DX HUMERUS MIN 2 VIEW LEFT Reason [...] humerus. Signed (Authenticated, Released) Date-Time: 03/27/2009 1110 Oil And Gas Exploration Technician- MACIEL KATE M.D., Staff Radiologist Dictated By- MACIEL KATE M.D., Staff Radiologist Staff Physician- MACIEL KATE M.D., Staff Radiologist Authenticated By- MACIEL KATE M.D., Staff Radiologist Performing Organization Address City/State/Zipcode Phone Number M[facility] documented in this encounter Visit Diagnoses Diagnosis Pain in joint, shoulder region documented in this encounter
--- OUTSIDE RECORDS SUMMARY | 2018-11-11 04:21 | XMS REPORT | Encounter Summary ---
Author Author [facility] Organization [facility] Address Unknown Phone Unavailable Care Team Providers Care Supervisor Rose Grading Name Role Phone Ange Frazier MD PCP Encounter Details Care Team Description Date Type Department [facility] ProviderJavon MD 03/05/2011 [facility]-Hist [facility] HISTORIC CLINIC Result [...]
--- OUTSIDE RECORDS SUMMARY | 2018-11-11 04:21 | XMS REPORT | Encounter Summary ---
Author Author [facility] Organization [facility] Address Unknown Phone Unavailable Care Team Providers Care Power Plant Technician Name Role Phone PCP Unavailable Encounter Details Care Team Description Date Type Department Huan Harding MD [address] [place], [place] [id number] Emergency, PhysicianMD Headache 01/22/2011 [place] [address] Social History Date Tobacco Use Types Packs/Day [...] At REPORT XIMENA Patient:SYDNEE VÁSQUEZ Phone #:Med Rec#:[id number] Sex:F :2Corp#: [id number] Location: [facility] Check-in#: [id number] Procedure Requested: [id number] CT HEAD WO CONTRAST Reason For Exam: HEADACHE Exam Ordered:01/22/2011 1113 Exam Date/Time:01/22/2011 112 Check-in Date/Time:01/22/2011 111 Attendin EMERGENCY, PHYSICIAN "" Requestin HUAN HARDING Referring: , Primary Care: [id number] ROBERT MONK MD CT HEAD WO CONTRAST [...] readback. Signed (Authenticated, Released) Date-Time: 01/22/2011 1154 Collection Supervisor- LINWOOD PICKENS, Staff Radiologist Dictated By- LINWOOD M YETTERM.D., Staff Radiologist Staff Physician- LINWOOD PICKENS, Staff Radiologist Authenticated By- LINWOOD PICKENS, Staff Radiologist Procedure Note Interface, Rad Conversion - 06/17/2013 11:40 AM REAL ESTATE INVESTOR REPORT Patient: SYDNEE VÁSQUEZ Phone #: [employer] Rec#: [id number] Sex: F : 1940 Cindy#: [id number] Location: [facility] Check-in#: [id number] Procedure Requested: [id number] CT HEAD WO CONTRAST Reason For Exam: HEADACHE Exam Ordered: 01/22/2011 1113 Exam Date/Time: 01/22/2011 1121 Check-in Date/Time: 01/22/2011 111 Attendin EMERGENCY, PHYSICIAN "" Requestin HUAN HARDING Referring: , Primary Care: [id number] ROBERT MONK MD CT HEAD WO CONTRAST [...] readback. Signed (Authenticated, Released) Date-Time: 01/22/2011 1154 Collection Supervisor- LINWOOD MERAZ M.D., Staff Radiologist Dictated By- LINWOOD MERAZ M.D., Staff Radiologist Staff Physician- LINWOOD MERAZ M.D., Staff Radiologist Authenticated By- LINWOOD MERAZ M.D., Staff Radiologist Performing Organization Address [facility] Phone Number MCKESSON * Glucose Point of Care (01/22/2011 11:15 AM CDT) Glucose 123 (H) 65 - 100 MG/DL SUNQUEST Specimen Blood Performing Organization Address [facility] Phone Number RL [address] [place] [address] SUNQUEST * Complete Blood Count (01/22/2011 11:06 [...] [place] SUNQUEST Specimen Blood Performing Organization Address [facility] Phone Number SLRL [address] [place] [address] SUNQUEST * Coagulation Screen (01/22/2011 11:06 AM CDT) Protime 13.4 11.7 - 14.3 SEC SUNQUEST APTT 30 22 - 34 SEC SUNQUEST Fibrinogen 276 146 - 390 MG/DL SUNQUEST Assay INR 1.1 0.9 - 1.1 SUNQUEST Specimen Blood Performing Organization Address [facility] Phone Number SLRL [address] [place] [address] SUNQUEST * Basic Metabolic Panel (01/22/2011 11:06 [...] mL/min/1.73 sq.m Specimen Blood Performing Organization Address [facility] Phone Number RL [address] [place] [address] SUNQUEST * Magnesium (01/22/2011 11:06 AM CDT) Magnesium 1.7 1.4 - 2.0 MEQ/L SUNQUEST Specimen Blood Performing Organization Address [facility] Phone Number SLRL [address] [place] [address] SUNQUEST * Troponin (01/22/2011 11:06 AM CDT) Troponin <0.01 0.00 - 0.07 NG/ML SUNQUEST Comment: Troponin ValueInterpretation 0.00 - 0.07 Healthy 0.08 - 0.50 Increased Cardiac Risk >0.50M yocardial Infarction Troponin may not become elevated until 6 to 8 hours after onset of symptoms. Specimen Blood Performing Organization Address [facility] Phone Number SLRL [address] [place] [address] SUNQUEST documented in this encounter Visit Diagnoses Diagnosis Headache(784.0) Headache documented in this encounter
--- OUTSIDE RECORDS SUMMARY | 2018-11-11 04:21 | XMS REPORT | Encounter Summary ---
Author Author [facility] Organization [facility] Address Unknown Phone Unavailable Care Team Providers Care Tube Trailer Filler Name Role Phone Ange Frazier MD PCP Encounter Details Care Team Description Date Type Department Ivan Morrow MD No Forwarding Address 04/03/2011 Hist-Visit [facility] HIST CLINIC Social History Date Tobacco Use Types Packs/Day Years Used Never Assessed Sex Assigned at Date Recorded Not on file Industry Job Start Date Occupation Not on file Not on file Not on file Travel End Travel History Travel Start No recent travel history available. documented as of this encounter Progress Notes * Ivan Morrow MD - 04/03/2011 8:41 AM OFFBEARER .D: 11 : 08:41am .T: Return Patient .PV:[facility] Celi Morrow M.D. [address] [place] [address] 20 [facility] Ivan Morrow M.D. [address] [place] [address] [place], [place] [address] [place] [address] [place] [address] Rachelle Prabhakar M.D. Bindu Mtahias D.O. Jodi Moore M.D. Angelika Amaya M.D. F ax: Jt Puente D.O. Carlo Navarro M.D. [facility] Juan José Colbert M.D., Ph.D. Dat Jewell M.D. 04/03/11 Ange Frazier MD [address] [place], [place] [id number] RE: Sydnee Love : 42 Dear Ange: [...] BY Ivan Morrow MD (SMA) 04/07/2011 11:18AM EARER documented in this encounter Plan of Treatment Not on filedocumented as of this encounter Visit Diagnoses Not on filedocumented in this encounter
--- OUTSIDE RECORDS SUMMARY | 2018-11-11 04:21 | XMS REPORT | Encounter Summary ---
Author Author [facility] Organization [facility] Address Unknown Phone Unavailable Care Team Providers Care Hip Hop Dance Instructor Name Role Phone Ange Frazier MD PCP Encounter Details Care Team Description Date Type Department [facility], Historical 03/10/2011 PracPart Note [facility] Social History Date Tobacco Use Types Packs/Day Years Used Never Assessed Sex Assigned at Date Recorded Not on file Industry Job Start Date Occupation Not on file Not on file Not on file Travel End Travel History Travel Start No recent travel history available. documented as of this encounter Progress Notes * [facility], Historical - 03/10/2011 2:28 PM CORPORATE HEALTH CONSULTANT . :02:28PM .T:test results From: AKILAH OTTO [...]
--- OUTSIDE RECORDS SUMMARY | 2018-11-11 04:21 | XMS REPORT | Encounter Summary ---
Author Author [facility] Organization [facility] Address Unknown Phone Unavailable Care Team Providers Care Mergers And Acquisitions Consultant Name Role Phone Ange Frazier MD PCP Encounter Details Care Team Description Date Type Department [facility], Historical 02/27/2011 PracPart Note [facility] Social History Date Tobacco Use Types Packs/Day Years Used Never Assessed Sex Assigned at Date Recorded Not on file Industry Job Start Date Occupation Not on file Not on file Not on file Travel End Travel History Travel Start No recent travel history available. documented as of this encounter Progress Notes * [facility], Historical - 02/27/2011 8:42 AM COMMUNITY EDUCATOR . : 08:42am PATIENT NAME: Sydnee Love [...] Other endocrine / gland conditions no Input custom feed mill operator jf INVALID LINK:[id number]\sary, sydnee hhx [id number] jf.TIF documented in this encounter Plan of Treatment Not on filedocumented as of this encounter Visit Diagnoses Not on filedocumented in this encounter
--- OUTSIDE RECORDS SUMMARY | 2018-11-11 04:21 | XMS REPORT | Encounter Summary ---
Author Author [facility] Organization [facility] Address Unknown Phone Unavailable Care Team Providers Care Aquatic Facility Manager Name Role Phone Ange Frazier MD PCP Encounter Details Care Team Description Date Type Department [facility], Historical 02/27/2011 PracPart Note [facility] Social History Date Tobacco Use Types Packs/Day Years Used Never Assessed Sex Assigned at Date Recorded Not on file Industry Job Start Date Occupation Not on file Not on file Not on file Travel End Travel History Travel Start No recent travel history available. documented as of this encounter Progress Notes * [facility], Historical - 02/27/2011 8:47 AM FUR LINER . : 08:47am Marital Status: Children: 2 [...]
--- OUTSIDE RECORDS SUMMARY | 2018-11-11 04:21 | XMS REPORT | Encounter Summary ---
Author Author [facility] Organization [facility] Address Unknown Phone Unavailable Care Team Providers Care Water Chaser Name Role Phone PCP Unavailable Encounter Details Care Team Description Date Type Department Ivan Morrow MD No Forwarding Address Generalized and unspecified atherosclerosis 03/05/2011 [place] [address] Social History Date Tobacco Use Types Packs/Day [...] Diagnosis ECHO TRANSTHORACIC Routine 03/05/2011 2:58 PM ADJUNCT HISTORY INSTRUCTOR documented in this encounter Results * ECHO TRANSTHORACIC (03/05/2011 2:58 PM ADJUNCT HISTORY INSTRUCTOR) Specimen Narrative Performed At [facility] RAD ECHOCARDIOGRAM REPORT [facility] Name: PAMELA VÁSQUEZ Date: 03/05/2011 14:58 Chart #: [id number] : 1940 Location: [facility] OP Sono: mmartin Age: 70 Gender: F Referring: IVAN MORROW Room #: OP Indication -TIA Procedure -59908 Complete Echo 2D/Colorflow/Doppler BP: / HR: 83 [...] PAMELA VÁSQUEZ Date: 03/05/2011 14:58 Chart #: [id number] : 1940 Location: [facility] OP Sono: mmartin Age: 70 Gender: F Referring: IVAN MORROW Room #: OP Indication -TIA Procedure -85511 Complete Echo 2D/Colorflow/Doppler BP: / HR: 83 [...] Date: Performing Organization Address City/State/Zipcode Phone Number [facility] RAD [address] [facility] [place] [address] documented in this encounter Visit Diagnoses Diagnosis Generalized and unspecified atherosclerosis documented in this encounter
--- OUTSIDE RECORDS SUMMARY | 2018-11-11 04:21 | XMS REPORT | Encounter Summary ---
Author Author [facility] Organization [facility] Address Unknown Phone Unavailable Care Team Providers Care Reduction Furnace Operator Name Role Phone Ange Frazier MD PCP Encounter Details Care Team Description Date Type Department Ivan Morrow MD No Forwarding Address 02/27/2011 Hist-Visit [facility] HIST CLINIC Social History Date Tobacco Use Types Packs/Day Years Used Never Assessed Sex Assigned at Date Recorded Not on file Industry Job Start Date Occupation Not on file Not on file Not on file Travel End Travel History Travel Start No recent travel history available. documented as of this encounter Progress Notes * Ivan Morrow MD - 02/27/2011 5:12 PM RELATIONSHIP MANAGER . : 05:12pm .T: New Patient .PV:[facility] Celi Morrow M.D. [address] [place] [address] 20 [facility] Ivan Morrow M.D. [address] [place] [address] [place], [place] [address] [place] [address] [place] [address] Rachelle Prabhakar M.D. Bindu Mathias D.O. Jodi Moore M.D. Angelika Amaya M.D. F ax: Jt Puente D.O. Carlo Navarro M.D. [facility] Juan José Colbert M.D., Ph.D. Dat Floyd M.D. . 02/27/11 Ange Frazier MD [address] [place] [address] RE: Sydnee Love : 42 Dear Ange: I saw Sydnee Love in the presence of her friend on 02/27/11 at our [facility] Office for evaluation of brief spell of [...] was not feeling well. She told the mutuel cashier a nd was told to sit down. [...] She was told to go to the [facility] Room. Head CT showed elements of ischemia in the left internal capsule. In the past in 2006, she had an MRI of the brain, which I reviewed. This showed scattered small vessel disease with lacunar areas of ischemia. This was thought perhaps related to her migraine headaches or perhaps to small vessel disease. She was placed back on aspirin by the [facility] Emergency Room. She mistry s been compliant [...] pronator drift. No resting or intention tremor. Phnspb-cp-mzfe was intact without dystaxia. I suspect that [...] :lr # SIGNED BY Ivan Morrow MD ([facility]) 02/27/2011 05:16PM TIONSHIP MANAGER documented in this encounter Plan of Treatment Not on filedocumented as of this encounter Visit Diagnoses Not on filedocumented in this encounter
--- NOTE | 2018-11-11 04:33 | NUR ---
PAMELA VÁSQUEZ admitted to room 419-1, with an admitting diagnosis of DIVERTICULITIS, on 11/11/18 from ED via [facility]ART, accompanied by STAFF.PAMELA VÁSQUEZ introduced to surroundings, call light, bed controls, phone, TV, temperature control, lights, meal times, smoking policy, visitor policy, side rail policy, bathrooms and showers. Patient Rights given to patient in the handbook. PAMELA VÁSQUEZ verbalizes understanding that [facility] is not responsible for the loss or damage to any personal effects or valuables that are kept in the patients posession during their hospitalization.
[2018-11-11] MEDS ORDERED: metroNIDAZOLE 500MG/100ML IVPB 100 ML ONE (05:17)
[2018-11-11] MEDS ORDERED: D5 1/2 NS W/KCL 20 MEQ/L 1,000 ML IV ONE (05:17)
[2018-11-11] MEDS: SCOPOLAMINE 1.5 MG (TRANSDERM-SCOP) PATCH TOP SCH (05:35)
[2018-11-11] MEDS: D5 1/2 NS W/KCL 20 MEQ/L 1,000 ML IV SCH ×2 (05:35→10:53)
[2018-11-11] MEDS: metroNIDAZOLE 500 MG/100 ML IVPB (PRE-MIX) IV SCH ×4 (05:36→23:12)
[2018-11-11] MEDS ORDERED: DICYCLOMINE 10 MG/ML (BENTYL) 2 ML AMP IM PRN (05:45)
[2018-11-11] MEDS ORDERED: fentaNYL INJECTION 100 MCG/2 ML AMP IV PRN (05:45)
--- OUTSIDE RECORDS SUMMARY | 2018-11-11 06:19 | XMS REPORT | Continuity of Care Document ---
Author Organization Unknown Address Unknown Allergies Active Description Code Type Severity Reaction Onset Reported/Identified Relationship to Patient Clinical Status Yes Sulfa (Sulfonamide Antibiotics) [id number] Drug Allergy Unknown N/A 12/04/2014 Yes latex [id number] Drug Allergy Mild RASH 06/01/2018 Medications There [...] OF MALIGNANT NEOPLASM OF 09/30/2016 NAKUL GONZALEZ RETIREMENT MANAGER Ot G45.9 TRANSIENT CEREBRAL ISCHEMIC ATTACK, [facility] 09/30/2016 NAKUL GONZALEZ RETIREMENT MANAGER Ot G45.9 TRANSIENT CEREBRAL ISCHEMIC ATTACK, [facility] 09/30/2016 NAKUL GONZALEZ RETIREMENT MANAGER Ot G45.9 TRANSIENT CEREBRAL ISCHEMIC ATTACK, [facility] 09/30/2016 NAKUL GONZALEZ RETIREMENT MANAGER Ot G45.9 TRANSIENT CEREBRAL ISCHEMIC ATTACK, [facility] 10/05/2016 NAKUL GONZALEZ RETIREMENT MANAGER Ot G45.9 TRANSIENT CEREBRAL ISCHEMIC ATTACK, [facility] 10/05/2016 NAKUL GONZALEZ RETIREMENT MANAGER Ot G45.9 TRANSIENT CEREBRAL ISCHEMIC ATTACK, [facility] 10/05/2016 NAKUL GONZALEZ RETIREMENT MANAGER Ot G45.9 TRANSIENT CEREBRAL ISCHEMIC ATTACK, [facility] 10/05/2016 NAKUL GONZALEZ RETIREMENT MANAGER Ot G45.9 TRANSIENT CEREBRAL ISCHEMIC ATTACK, [facility] 10/28/2016 NAKUL GONZALEZ RETIREMENT MANAGER Ot R42 DIZZINESS AND GIDDINESS 10/28/2016 NAKUL GONZALEZ RETIREMENT MANAGER Ot R51 HEADACHE 10/28/2016 NAKUL GONZALEZ RETIREMENT MANAGER Ot Z86.73 PRSNL HX OF TIA (TIA), [...] HEADACHE 02/26/2018 BERNABE ZAMORANO MD Ot Z79.52 [facility] (CURRENT) USE OF 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 02/26/2018 BERNABE ZAMORANO MD Ot Z79.82 [facility] (CURRENT) USE OF ASPIRIN 02/26/2018 BERNABE ZAMORANO [...] HEADACHE 03/01/2018 BERNABE ZAMORANO MD Ot Z79.52 PIPE ORGAN MECHANIC (CURRENT) USE OF 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 03/01/2018 BERNABE ZAMORANO MD Ot Z79.82 PIPE ORGAN MECHANIC (CURRENT) USE OF ASPIRIN 03/01/2018 BERNABE ZAMORANO [...] R42 DIZZINESS AND GIDDINESS 03/22/2018 NAKUL GONZALEZ RETIREMENT MANAGER Ot R51 HEADACHE 03/22/2018 NAKUL GONZALEZ RETIREMENT MANAGER Ot Z86.73 PRSNL HX OF TIA (TIA), [...] 03/29/2018 VIRGEN DO LACY K Ot Z79.51 PIPE ORGAN MECHANIC (CURRENT) USE OF INHALED STERO 03/29/2018 VIRGEN DO LACY K Ot Z79.82 PIPE ORGAN MECHANIC (CURRENT) USE OF ASPIRIN 03/29/2018 VIRGEN DO [...] 03/30/2018 VIRGEN DO LACY K Ot Z79.51 [facility] (CURRENT) USE OF INHALED STERO 03/30/2018 VIRGEN DO LACY K Ot Z79.82 [facility] (CURRENT) USE OF ASPIRIN 03/30/2018 VIRGEN DO [...] OTHER SPECIFIED POSTPROCEDURAL STATES 04/01/2018 NAKUL GONZALEZ RETIREMENT MANAGER Ot E86.0 DEHYDRATION 04/01/2018 NAKUL GONZALEZ RETIREMENT MANAGER Ot N39.0 URINARY TRACT INFECTION, SITE NOT SPECIF 04/01/2018 NAKUL GONZALEZ RETIREMENT MANAGER Ot R53.81 OTHER MALAISE 04/01/2018 NAKUL GONZALEZ RETIREMENT MANAGER Ot R53.83 OTHER FATIGUE 04/03/2018 VIRGEN LILLY LACY Baird Ot E03.9 HYPOTHYROIDISM, UNSPECIFIED 04/03/2018 VIRGEN LILLY LACY K Ot I10 ESSENTIAL (PRIMARY) HYPERTENSION 04/03/2018 VIRGEN LILLY LACY K Ot R03.0 ELEVATED BLOOD-PRESSURE READING, W/O SANDRA 04/03/2018 VIRGEN LILLY LACY K Ot Z79.51 PIPE ORGAN MECHANIC (CURRENT) USE OF INHALED STERO 04/03/2018 VIRGEN LILLY LACY K Ot Z79.82 [facility] (CURRENT) USE OF ASPIRIN 04/03/2018 VIRGEN LILLY [...] OTHER SPECIFIED POSTPROCEDURAL STATES 04/05/2018 NAKUL GONZALEZ RETIREMENT MANAGER Ot E86.0 DEHYDRATION 04/05/2018 LISA NAKUL Edith RETIREMENT MANAGER Ot N39.0 URINARY TRACT INFECTION, SITE NOT SPECIF 04/05/2018 NAKUL GONZALEZ RETIREMENT MANAGER Ot R53.81 OTHER MALAISE 04/05/2018 NAKUL GONZALEZ RETIREMENT MANAGER Ot R53.83 OTHER FATIGUE 04/16/2018 AAKASH PATEL, [...] MD Ot I25.10 ATHSCL HEART DISEASE OF [place] CORONARY 06/01/2018 JORGE L IVERSON MD Ot I65.29 OCCLUSION AND STENOSIS OF UNSPECIFIED CA 06/01/2018 JORGE L IVERSON MD Ot K21.9 GASTRO-ESOPHAGEAL REFLUX DISEASE WITHOUT 06/01/2018 JORGE L IVERSON MD Ot R07.9 CHEST PAIN, UNSPECIFIED 06/01/2018 JORGE L IVERSON MD Ot R42 DIZZINESS AND GIDDINESS 06/01/2018 JORGE L IVERSON MD Ot Z79.82 [facility] (CURRENT) USE OF ASPIRIN 06/01/2018 JORGE L IVERSON MD Ot Z79.899 OTHER PIPE ORGAN MECHANIC (CURRENT) DRUG THERAPY 06/01/2018 JORGE L IVERSON [...] MD Ot I25.10 ATHSCL HEART DISEASE OF [place] CORONARY 06/02/2018 JORGE L IVERSON MD Ot I65.29 OCCLUSION AND STENOSIS OF UNSPECIFIED CA 06/02/2018 JORGE L IVERSON MD Ot K21.9 GASTRO-ESOPHAGEAL REFLUX DISEASE WITHOUT 06/02/2018 JORGE L IVEROSN MD Ot R07.9 CHEST PAIN, UNSPECIFIED 06/02/2018 JORGE L IVERSON MD Ot R42 DIZZINESS AND GIDDINESS 06/02/2018 JORGE L IVERSON MD Ot Z79.82 [facility] (CURRENT) USE OF ASPIRIN 06/02/2018 JROGE L IVERSON MD Ot Z79.899 OTHER [facility] (CURRENT) DRUG THERAPY 06/02/2018 JORGE L IVERSON [...] is no data. Results Test Result Range [id number] - 10/05/16 13:51 Serum or plasma urea [...] culture - 04/01/18 12:40 Bacterial urine culture [id number] NRG COLONY COUNT 50,000 CFU/ML NRG FTX;REPORTABLE [...] resistant Staphylococcus aureus (MRSA) screening culture NEG [facility] Stool occult blood screen - 10/28/18 13:29 Stool gastrointestinal hemoglobin detection NEGATIVE NEGATIVE C DIFFICILE AG + TOXIN A/B. - 10/28/18 13:29 RESULTS NEGATIVE FOR ANTIGEN AND TOXIN A/B [facility] [id number] - 10/28/18 13:29 Stool bacteria identification by [...] g/dL 3.2-4.5 CALCIUM CORRECTED 9.4 mg/dL 8.5-10.1 Complete urinalysis with reflex to culture - 11/10/18 18:44 Urine color determination YELLOW NRG Urine clarity determination CLEAR NRG Urine pH measurement by test strip 6.5 5-9 Specific gravity of urine by test strip 1.005 1.016-1.022 Urine protein assay by test strip, [...] NORMAL Urine leukocyte esterase detection by dipstick 1+ NEGATIVE Automated urine sediment erythrocyte count by microscopy (number/high power field) NONE NRG Automated urine sediment leukocyte count by microscopy (number/high power field) RARE NRG Bacteria detection in urine sediment by light microscopy TRACE NRG Squamous epithelial cells detection in urine sediment by light microscopy 5-10 NRG Crystals detection in urine sediment by light microscopy NONE NRG Casts detection in urine sediment by light microscopy NONE NRG Mucus detection in urine sediment by light microscopy NEGATIVE NRG Complete urinalysis with reflex to culture NO NRG Complete blood count (CBC) with automated white blood cell (WBC) differential - 11/11/18 03:05 Blood leukocytes automated count (number/volume) 11.5 10*3/uL 4.3-11.0 Blood erythrocytes automated count (number/volume) 4.49 10*6/uL 4.35-5.85 Venous blood hemoglobin measurement (mass/volume) 13.1 g/dL 11.5-16.0 Blood hematocrit (volume fraction) 40 % 35-52 Automated erythrocyte mean corpuscular volume 90 [foz_us] 80-99 Automated erythrocyte mean corpuscular hemoglobin (mass per erythrocyte) 29 pg 25-34 Automated erythrocyte mean corpuscular hemoglobin concentration measurement (mass/volume) 33 g/dL 32-36 Automated erythrocyte distribution width ratio 13.6 % 10.0- 14.5 Automated blood platelet count (count/volume) 239 10*3/uL 130-400 Automated blood platelet mean volume measurement 10.1 [foz_us] 7.4-10.4 Automated blood neutrophils/100 leukocytes 80 % 42-75 Automated blood lymphocytes/100 leukocytes 8 % 12-44 Blood monocytes/100 leukocytes 10 % 0-12 Automated blood eosinophils/100 leukocytes 1 % 0-10 Automated blood basophils/100 leukocytes 0 % 0-10 Blood neutrophils automated count (number/volume) 9.2 10*3 1.8-7.8 Blood lymphocytes automated count (number/volume) 0.9 10*3 1.0-4.0 Blood monocytes automated count (number/volume) 1.2 10*3 0.0- 1.0 Automated eosinophil count 0.1 10*3/uL 0.0-0.3 Automated blood basophil count (count/volume) 0.0 10*3/uL 0.0-0.1 Blood lactic acid measurement (moles/volume) - 11/11/18 03:05 Blood lactic acid measurement (moles/volume) 1.27 mmol/L 0.50- 2.00 Magnesium - 11/11/18 03:05 Magnesium 1.8 mg/dL 1.8-2.4 Serum or plasma amylase measurement (enzymatic activity/volume) - 11/11/18 03:05 Serum or plasma amylase measurement (enzymatic activity/volume) 57 U/L 25-125 Lipase - 11/11/18 03:05 Lipase 13 U/L 8-78 Comprehensive metabolic panel - 11/11/18 03:05 Serum or plasma sodium measurement (moles/volume) 138 mmol/L 135-145 Serum or plasma potassium measurement (moles/volume) 3.7 mmol/L 3.6-5.0 Serum or plasma chloride measurement (moles/volume) 103 mmol/L 98-107 Carbon dioxide 21 mmol/L 21-32 Serum or plasma anion gap determination (moles/volume) 14 mmol/L 5-14 Serum or plasma urea nitrogen measurement (mass/volume) 8 mg/dL 7-18 Serum or plasma creatinine measurement (mass/volume) 0.84 mg/dL 0.60-1.30 Serum or plasma urea nitrogen/creatinine mass ratio 10 NRG Serum or plasma creatinine measurement with calculation of estimated glomerular filtration rate > NRG Serum or plasma glucose measurement (mass/volume) 148 mg/dL 70-105 Serum or plasma calcium measurement (mass/volume) 9.9 mg/dL 8.5-10.1 Serum or plasma total bilirubin measurement (mass/volume) 0.5 mg/dL 0.1-1.0 Serum or plasma alkaline phosphatase measurement (enzymatic activity/volume) 86 U/L 40-136 Serum or plasma aspartate aminotransferase measurement (enzymatic activity/volume) 29 U/L 5-34 Serum or plasma alanine aminotransferase measurement (enzymatic activity/volume) 22 U/L 0-55 Serum or plasma protein measurement (mass/volume) 7.1 g/dL 6.4-8.2 Serum or plasma albumin measurement (mass/volume) 4.3 g/dL 3.2-4.5 CALCIUM CORRECTED 9.7 mg/dL 8.5-10.1 Encounters ACCT No. Visit Date/Time Discharge Status Pt. Type Provider Facility Loc./Unit Complaint [id number] 10/28/2018 13:23:00 10/28/2018 23:59:59 CLS Outpatient MARTA FINN MD [facility] LAB DIARRHEA [id number] 07/08/2018 13:20:00 07/08/2018 23:59:59 CLS Outpatient NIDA MADDOX MD [facility] RAD FATIGUE/GOITER [id number] 06/01/2018 10:28:00 06/01/2018 18:33:00 DIS Outpatient JORGE L IVERSON MD [facility] CATH ABN STRESS TEST, CP, HTN, HLP [id number] 05/23/2018 07:39:00 05/23/2018 23:59:59 CLS Outpatient JORGE L IVERSON MD [facility] CARD HTN,CAROTID ARTERY STENOSIS [id number] 05/20/2018 10:26:00 05/20/2018 23:59:59 CLS Outpatient JORGE L IVERSON MD [facility] CARD HTN,CAROTID ARTERY STENOSIS [id number] 05/06/2018 11:17:00 05/06/2018 23:59:59 CLS Outpatient NIDA MADDOX MD [facility] RAD DYSPHAGIA [id number] 04/01/2018 12:16:00 04/01/2018 15:25:00 DIS Outpatient NAKUL GONZALEZ APRN [facility] SDC UTI,FATIGUE,DEHYDRATION,MALAISE [id number] 03/28/2018 23:20:00 03/29/2018 03:42:00 DIS Emergency LACY NEW DO [facility] ER ELEVATED BP [id number] 03/22/2018 14:26:00 03/22/2018 23:59:59 CLS Outpatient MARTA FINN MD [facility] RAD ABN FINDINGS ON DX IMAGING OF OTHER BODY STRUCTURE [id number] 02/26/2018 12:24:00 02/26/2018 17:08:00 DIS Emergency BERNABE ZAMORANO MD [facility] ER HX OF TIA'S/PULSING IN HEAD/PAIN [id number] 02/19/2018 00:09:00 02/19/2018 23:59:59 CLS Preadmit MARTA FINN MD [facility] CR3 WELLNESS [id number] 02/08/2018 06:00:00 02/18/2018 00:01:00 DIS Outpatient MARTA FINN MD [facility] CR3 WELLNESS [id number] 01/05/2018 13:31:00 01/14/2018 00:01:00 DIS Outpatient MARTA FINN MD [facility] CR3 WELLNESS [id number] 11/23/2017 06:00:00 12/10/2017 00:01:00 DIS Outpatient MARTA FINN MD [facility] CR3 WELLNESS [id number] 11/03/2017 11:25:00 11/06/2017 00:01:00 DIS Outpatient MARTA FINN MD [facility] CR3 WELLNESS [id number] 10/04/2017 14:08:00 10/07/2017 00:01:00 DIS Outpatient MARTA FINN MD [facility] CR3 WELLNESS [id number] 10/05/2016 13:35:00 10/05/2016 23:59:59 CLS Outpatient NAUKL GONZALEZ APRN [facility] RAD HX OF TIA,DIZZINESS, LIGHTHEADEDNESS, HEADACHE [id number] 10/18/2015 07:11:00 10/18/2015 10:10:00 DIS Outpatient AIDE PATEL, JERILYN Leon [facility] SDC SCREENING [id number] 10/16/2015 05:42:00 10/16/2015 11:54:00 DIS Outpatient AIDE PATEL, JERILYN Leon [facility] PREOP SCREENING [id number] 09/20/2015 15:18:00 09/25/2015 13:12:00 DIS Outpatient SONIYA PATEL, MACIEL Umanzor [facility] REHAB B QUAD STRENGTHENING; KNEE DJD [id number] 12/04/2014 02:41:00 12/04/2014 04:20:00 DIS Emergency JONATHON PATEL, FANI Leon [facility] ER ABD PAIN,HANDS TINGLING,DIARRHEA,SWEATING,HRT POUN [id number] 11/11/2018 03:28:00 Document Registration [id number] 11/10/2018 17:49:00 Document Registration
[2018-11-11 07:04] LABS: BASOPHILS % (AUTO) 0 % (0-10); EOSINOPHILS % (AUTO) 1 % (0-10); HEMATOCRIT 33 % (35-52); HEMOGLOBIN 10.5 G/DL (11.5-16.0); LYMPHOCYTES # (AUTO) 0.8 X 10^3 (1.0-4.0); LYMPHOCYTES % (AUTO) 10 % (12-44); MEAN CORPUSCULAR HEMOGLOBIN 29 PG (25-34); MEAN CORPUSCULAR HGB CONC 32 G/DL (32-36); MEAN CORPUSCULAR VOLUME 91 FL (80-99); MEAN PLATELET VOLUME 9.4 FL (7.4-10.4); MONOCYTES # (AUTO) 0.5 X 10^3 (0.0-1.0); MONOCYTES % (AUTO) 6 % (0-12); NEUTROPHILS # (AUTO) 6.5 X 10^3 (1.8-7.8); NEUTROPHILS % (AUTO) 84 % (42-75); PLATELET COUNT 193 10^3/uL (130-400); RED CELL DISTRIBUTION WIDTH 13.5 % (10.0-14.5); WHITE BLOOD COUNT 7.8 10^3/uL (4.3-11.0)
[2018-11-11 07:30] LABS: ALANINE AMINOTRANSFERASE 16 U/L (0-55); ALBUMIN 3.3 GM/DL (3.2-4.5); ALKALINE PHOSPHATASE 64 U/L (40-136); BILIRUBIN,TOTAL 0.4 MG/DL (0.1-1.0); BUN/CREATININE RATIO 10; CALCIUM 8.7 MG/DL (8.5-10.1); CARBON DIOXIDE 25 MMOL/L (21-32); CHLORIDE 104 MMOL/L (98-107); GFR ESTIMATED > 60; GLUCOSE 148 MG/DL (70-105); POTASSIUM 4.4 MMOL/L (3.6-5.0); SODIUM 137 MMOL/L (135-145); TOTAL PROTEIN 5.5 GM/DL (6.4-8.2)
[2018-11-11 08:00] VITALS: BP 118/58
[2018-11-11] MEDS ORDERED: TOBR5DRO13 OU (09:42)
[2018-11-11] MEDS: PANTOPRAZOLE 40 MG (PROTONIX) VIAL IV SCH (09:42)
[2018-11-11] MEDS: LACTOBACILLUS ACIDOPHILUS (PROBIOTIC) CAPSULE PO SCH ×5 (09:42→21:02)
[2018-11-11] MEDS ORDERED: SODI30SP2 NS (09:48)
--- NOTE | 2018-11-11 09:49 | NUR ---
PATIENT HAD A LIST OF HER MEDICATIONS SHE READ TO ME, I VERIFIED THE PRESCRIPTIONS WITH THE EXT MED HX. Addendum: 11/11/18 at 1428 by VIVI MORA [facility] PATIENT GAVE NURSE SYSTANE EYE DROPS TO CONTINUE. SHE DID NOT MENTION SYSTANE EYE DROPS WHEN WE WENT OVER HER MEDICATIONS THIS MORNING. I WENT BACK AND TALKED TO HER AT THIS TIME AND SHE STATES SHE USES THE SYSTANE NEEDED FOR DRY EYES. SHE SEEMS CONFUSED ABOUT HER MEDICATIONS. AFTER WE TALKED IN LENGTH AND LOOKED OVER HER LIST AGAIN SHE AGREED THE ZYLET EYE DROPS WE TALKED ABOUT EARLIER THIS MORNING THAT WERE FILLED IN SEPTEMBER WERE TEMPORARY AND SHE IS NO LONGER TAKING THEM. SHE DOES NOT HAVE ANY EYE DROPS LISTED ON HER MEDICATION LIST SHE HAS WITH HER.
--- NOTE | 2018-11-11 10:17 | NUR ---
C/O OF LLQ ABD PAIN. ASKED FOR PAIN MED. RATES PAIN 10/26. WHEN FENTANYL IV PAIN MED BROUGHT TO PT. SHE STATED " I DON'T WANT IT. I THINK IT GAVE ME A HEADACHE, I'LL TALK TO DR. FINN ABOUT IT."
[2018-11-11] MEDS: ONDANSETRON 4 MG/2 ML (SDV) Z0FRAN IV PRN (10:52)
--- NOTE | 2018-11-11 11:18 | History & Physicial ---
History of Present Illness History of Present Illness Reason for visit/HPI PT IS A 77 Y/O FEMALE WHO IS KNOWN TO ME FROM CLINIC. SHE PRESENTED TO THE EMERGENCY DEPARTMENT TWICE YESTERDAY DUE TO PERSISTENT DIARRHEA. SHE WAS INITIALLY SENT HOME WITH ORAL ANTIBIOTICS, BUT WAS UNABLE TO KEEP DOWN FLUIDS AND RETURNED TO THE EMERGENCY DEPARTMENT WITH PERSISTENT NAUSEA AND DIARRHEA. SHE STATES THAT SHE STILL HAS PAIN IN HER LEFT LOWER ABDOMEN TODAY AND IS STILL NAUSEATED. Date of Admission Nov 11, 2018 at 03:50 Date Seen by a Provider: Nov 11, 2018 Time Seen by a Provider: 11:00 I consulted on this patient on 11/11/18 11:00 Attending Physician Marta Cortez MD Admitting Physician Marta Cortez MD Consult Allergies and Home Medications Allergies Coded Allergies: latex (Verified Allergy, Mild, RASH, 06/01/18) Sulfa (Sulfonamide Antibiotics) (Verified Allergy, Unknown, 12/04/14) Home Medications Acetaminophen 650 Mg Tablet.er, 1,300 MG PO Q8H PRN for PAIN-MILD, (Reported) TAKES 2 (650MG) TABLETS Aspirin 81 Mg Tablet.dr, 81 MG PO DAILY, (Reported) Glucosam/Chond/Hyalu/Cf Borate 1 Each Tablet, 1 TAB PO HS, (Reported) L.acidoph & Paracasei,B.lactis 1 Each Capsule, 1 CAP PO DAILY, (Reported) Levocetirizine Dihydrochloride 5 Mg Tablet, 5 MG PO DAILY, (Reported) Levothyroxine Sodium 88 Mcg Tablet, 88 MCG PO 0300, (Reported) Lisinopril 20 Mg Tablet, 40 MG PO DAILY, (Reported) TAKES 2 (20MG) TABLETS Metoprolol Succinate 50 Mg Tab.er.24h, 50 MG PO DAILY, (Reported) Omeprazole Magnesium 20 Mg Tablet.dr, 20 MG PO DAILY, (Reported) Pravastatin Sodium 80 Mg Tablet, 80 MG PO HS, (Reported) Sodium Chloride 30 Ml Cougar, 2 SPRAYS NS BID PRN for ALLERGIES, (Reported) Tobramycin/Lotepred Etab 5 Ml Drops.susp, 1 DROP OU QID, (Reported) Vitamin B Complex 1 Each Capsule, 1 CAP PO DAILY, (Reported) [Super D Immune] , 1 CAP PO DAILY, (Reported) VITAMIN A 2300 IU MAGNESIUM 250MG VITAMIN D3 4000IU ZINC 5MG [Waterex] , 1 TAB PO BID, (Reported) VITAMIN B6 MAGNESIUM OXIDE POTASSIUM Patient Home Medication List Home Medication List Reviewed: Yes Past Wbkhsvm-Ouhupa-Twrzwi Hx Patient Social History Marrital Status: Living Status: LIVES AT HOME WITH SPOUSE Employed/Student: retired Alcohol Use: Occasionally Uses Number of Drinks Today: Alcohol Beverage of Choice: Wine Recreational Drug Use: No Smoking Status: Never a Smoker 2nd Hand Smoke Exposure: No Physical Abuse Screen: No Sexual Abuse: No Recent Foreign Travel: No Contact w/other who traveled: No Recent Hopitalizations: No Immunizations Up To Date Pediatric: Yes Date of Pneumonia Vaccine: May 20, 2011 Date of Influenza Vaccine: Jan 29, 2018 Surgeries Yes (RIGHT TOTAL KNEE REPLACEMENT; RIGHT KNEE SCOPE; BILATERAL CATARACTS; BUNIONECTOMY; REMOVAL OF SKIN CANCER; SCREENING COLONOSCOPY 10/2015; CARDIAC CATH 06/01/18--NO INTERVENTION ) Cardiac, Joint Replacement, Orthopedic Respiratory No Cardiovascular Yes (CAROTID STENOSIS; PFO; CARDIAC CATH 06/01/18--MILD DISEASE, NO INT ERVENTION) High Cholesterol, Hypertension Neurological Yes TIA, Vertigo Reproductive System Hx Reproductive Disorders: No Sexually Transmitted Disease: No HIV/AIDS: No 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 Genitourinary Yes UTI-Chronic Gastrointestinal Yes (ACUTE DIVERTICULITIS 11/10/18) Gastroesophageal Reflux, Diverticulosis Musculoskeletal Yes (RIGHT KNEE SCOPE AND REPLACEMENT) Arthritis Endocrine History of Endocrine Disorders: Yes Endocrine Disorders: Hypothyroidsim HEENT History of HEENT Disorders: Yes (BILATERAL CATARACT SURGERY) HEENT Disorders: Cataract Cancer Yes Skin Did You Recieve Any Treatments: Yes Type of Treatment: Surgical Intervention Psychosocial History of Psychiatric Problem: Yes Behavioral Health Disorders: Anxiety Integumentary History of Skin or Integumenta: No Blood Transfusions History of Blood Disorders: No Adverse Reaction to a Blood Tr: No Reviewed Nursing Assessment Reviewed/Agree w Nursing PMH: Yes Family Medical History Significant Family History: Heart Disease, Hypertension Review of Systems Constitutional: No chills, No fever; malaise, weakness EENTM: No hoarseness, No throat pain Respiratory: No cough, No dyspnea on exertion, No short of breath Cardiovascular: No chest pain, No edema Gastrointestinal: abdominal pain (LLQ); No constipation; diarrhea, nausea; No vomiting Genitourinary: no symptoms reported Musculoskeletal: No back pain, No joint pain, No muscle weakness Skin: no symptoms reported Psychiatric/Neurological: Denies Anxiety, Denies Depressed; Weakness All Other Systems Reviewed Negative Unless Noted: Yes Physical Exam Vital Signs Vital Signs - First Documented 11/11/18 11/11/18 11/11/18 03:49 04:15 08:00 Temp 97.8 Pulse 70 Resp 20 B/P (MAP) 136/68 (90) Pulse Ox 99 O2 Delivery Room Air O2 Flow Rate 3.00 Capillary Refill : Height, Weight, BMI Height: 5'3.00" Weight: 155lbs. 5.0oz. 70.225706rv; 27.5 BMI Method:Actual General Appearance: No Apparent Distress, WD/WN Eyes: Bilateral Eye Normal Inspection, Bilateral Eye PERRL, Bilateral Eye EOMI HEENT: PERRL/EOMI, Pharynx Normal Neck: Full Range of Motion, Non Tender, Supple Respiratory: Chest Non Tender, Lungs Clear, Normal Breath Sounds, No Accessory Muscle Use, No Respiratory Distress Cardiovascular: Regular Rate, Rhythm, No Edema Gastrointestinal: Soft, Abnormal Bowel Sounds (HYPERACTIVE), Tenderness (LLQ) Rectal: Deferred Back: Normal Inspection, No Vertebral Tenderness Extremity: Normal Capillary Refill, Normal Inspection, Normal Range of Motion, Non Tender, No Calf Tenderness, No Pedal Edema Neurologic/Psychiatric: Alert, Oriented x3, No Motor/Sensory Deficits, Normal Mood/Affect, video tape duplicator II-XII Norm as Tested Skin: Normal Color, Warm/Dry Lymphatic: No Adenopathy Assessment/Plan Assessment and Plan ACUTE DIVERTICULITIS DIARRHEA NAUSEA MILD LEUKOCYTOSIS HYPOTHYROIDISM HYPERTENSION ACUTE DIVERTICULITIS WITH DIARRHEA - PT ON IV FLUIDS, ON IV ANTIBIOTICS, CONTINUE WITH CURRENT TREATMENT - WILL ANTICIPATE PT TO BE DISCHARGED TOMORROW IF HER SYMPTOMS ARE IMPROVED. NAUSEA - CNOTINUE WITH ZOFRAN. MILD LEUKOCYTOSIS - IMPROVED DOWN TO NORMAL TODAY. HYPOTHYROIDISM - RESUME HOME REGIMEN HYPERTENSION - RESUME HOME ANTIHYPERTENSIVE REGIMEN PT IS ADMITTED AN OBSERVATION PATIENT LATE LAST NIGHT - SHE WILL BE IN THE HOSPITAL TODAY AND ANTICIPATE DISCHARGE TO HOME TOMORROW ON ORAL ANTIBIOTICS AND NAUSEA MEDICATIONS. Admission Diagnosis ACUTE DIVERTICULITIS DIARRHEA NAUSEA MILD LEUKOCYTOSIS HYPOTHYROIDISM HYPERTENSION Admission Status: Observation Clinical Quality Measures DVT/VTE Risk/Contraindication: Risk Factor Score Per Nursin RFS Level Per Nursing on Admit: 4+=Very High MARTA CORTEZ MD Nov 11, 2018 11:18
[2018-11-11] MEDS ORDERED: ACETAMINOPHEN 1300 MG PO PRN (11:30)
[2018-11-11 11:32] LABS: BILIRUBIN,URINE NEGATIVE (NEGATIVE); CLARITY,URINE CLEAR; COLOR,URINE YELLOW; GLUCOSE, URINE (UA) NEGATIVE (NEGATIVE); KETONES,URINE NEGATIVE (NEGATIVE); LEUKOCYTE ESTERASE ,URINE 1+ (NEGATIVE); NITRITE,URINE NEGATIVE (NEGATIVE); PH,URINE 6.5 (5-9); PROTEIN,URINE NEGATIVE (NEGATIVE); UROBILINOGEN,URINE NORMAL (NORMAL)
[2018-11-11 11:40] LABS: BACTERIA,URINE NEGATIVE /HPF; SQUAMOUS EPITHELIAL CELL,UR RARE /HPF; WBC,URINE RARE /HPF
[2018-11-11] MEDS: morphine INJ 4 MG/ML 1 ML (VIAL/SYRINGE) IVP PRN ×3 (11:44→21:12)
[2018-11-11 12:00] VITALS: BP 135/65
[2018-11-11] MEDS ORDERED: LOTEPRED ETAB OU SCH (13:00)
[2018-11-11] MEDS ORDERED: TOBRAMYCIN OU SCH (13:00)
[2018-11-11] MEDS ORDERED: PATIENT MAY USE OWN MEDS, ALL MC SCH (14:15)
[2018-11-11] MEDS ORDERED: PROP15DR OU (14:15)
[2018-11-11] MEDS ORDERED: SYSTANE EYE DROPS 15 ML (NON-FORMULARY) OP PRN (14:45)
[2018-11-11 15:57] VITALS: BP 115/56
[2018-11-11] MEDS: CIPROFLOXACIN 400 MG/D5W 200 ML (PRE-MIX) IV SCH (17:18)
[2018-11-11 20:19] VITALS: BP 131/62
[2018-11-11] MEDS ORDERED: NON-FORMULARY MEDICATION 1 EA EA (Pravastatin Sodium 80 MG) PO SCH (21:00)
[2018-11-11] MEDS: ATORVASTATIN 20 MG (LIPITOR) TABLET PO SCH (21:02)
[2018-11-12] VITALS: BP 129/58
[2018-11-12] MEDS: D5 1/2 NS W/KCL 20 MEQ/L 1,000 ML IV SCH (01:06)
[2018-11-12] MEDS: LEVOTHYROXINE 88 MCG (LEVOTHORID) TAB PO SCH (03:39)
[2018-11-12] MEDS: CIPROFLOXACIN 400 MG/D5W 200 ML (PRE-MIX) IV SCH ×2 (03:39→17:45)
[2018-11-12 04:00] VITALS: BP 133/56
[2018-11-12] MEDS: metroNIDAZOLE 500 MG/100 ML IVPB (PRE-MIX) IV SCH ×4 (05:45→22:47)
[2018-11-12 06:29] LABS: HEMOGLOBIN 9.7 G/DL (11.5-16.0); MEAN PLATELET VOLUME 10.2 FL (7.4-10.4); RED CELL DISTRIBUTION WIDTH 13.8 % (10.0-14.5); WHITE BLOOD COUNT 5.1 10^3/uL (4.3-11.0)
[2018-11-12 06:57] LABS: ALANINE AMINOTRANSFERASE 14 U/L (0-55); ALKALINE PHOSPHATASE 57 U/L (40-136); BILIRUBIN,TOTAL 0.2 MG/DL (0.1-1.0); BUN/CREATININE RATIO 5; CALCIUM 8.5 MG/DL (8.5-10.1); CARBON DIOXIDE 24 MMOL/L (21-32); CHLORIDE 107 MMOL/L (98-107); CREATININE SERUM 0.76 MG/DL (0.60-1.30); GFR ESTIMATED > 60; GLUCOSE 121 MG/DL (70-105); POTASSIUM 3.8 MMOL/L (3.6-5.0); SODIUM 138 MMOL/L (135-145); TOTAL PROTEIN 4.8 GM/DL (6.4-8.2)
[2018-11-12 08:00] VITALS: BP 122/69
[2018-11-12] MEDS ORDERED: NON-FORMULARY MEDICATION 1 EA EA (Aspirin (Aspir 81) 81 MG) PO SCH (09:00)
[2018-11-12] MEDS ORDERED: LEVOCETIRIZINE 5 MG TAB (XYZAL) NON-FORMULARY PO SCH (09:00)
[2018-11-12] MEDS: ASPIRIN E.C. 81 MG (ECOTRIN) TAB PO SCH (09:06)
[2018-11-12] MEDS: PANTOPRAZOLE 40 MG (PROTONIX) VIAL IV SCH (09:06)
[2018-11-12] MEDS: LORATADINE (CLARITIN) 10 MG TAB PO SCH (09:07)
[2018-11-12] MEDS: LACTOBACILLUS ACIDOPHILUS (PROBIOTIC) CAPSULE PO SCH ×4 (09:07→20:58)
[2018-11-12] MEDS: meTOproloL SUCCINATE 50 MG (TOPROL XL) TAB PO SCH (09:07)
[2018-11-12] MEDS: lisINopril 20 MG (PRINIVIL) TABLET PO SCH (09:07)
--- NOTE | 2018-11-12 12:25 | Progress Note - Hospitalist ---
Subjective HPI/CC On Admission Date Seen by Provider: Nov 12, 2018 Time Seen by Provider: 12:15 Subjective/Events-last exam Patient does not feel ready to go home although nausea has resolved Abdominal pain is still present but much improved Tolerating clear liquid diet and once to advance diet MiraLAX be given since she feels like she needs to have a bowel movement Checked meds and labs Will ambulate with PT and OT Reports she lives alone and she is frightened to go home Review of Systems Gastrointestinal: Abdominal Pain Focused Exam Lactate Level 11/11/18 03:05: Lactic Acid Level 1.27 Objective Exam Vital Signs Vital Signs Date Time Temp Pulse Resp B/P (MAP) Pulse Ox O2 Delivery O2 Flow Rate FiO2 11/12/18 08:00 98.5 85 20 122/69 (86) 90 Room Air 11/11/18 04:56 1.00 Capillary Refill : General Appearance: No Apparent Distress, WD/WN HEENT: PERRL/EOMI, Pharynx Normal Neck: Full Range of Motion, Non Tender, Supple Respiratory: Chest Non Tender, Lungs Clear, Normal Breath Sounds, No Accessory Muscle Use, No Respiratory Distress Cardiovascular: Regular Rate, Rhythm, No Edema Gastrointestinal: Soft, Abnormal Bowel Sounds (HYPERACTIVE), Tenderness (LLQ) Rectal: Deferred Back: Normal Inspection, No Vertebral Tenderness Extremity: Normal Capillary Refill, Normal Inspection, Normal Range of Motion, Non Tender, No Calf Tenderness, No Pedal Edema Neurologic/Psychiatric: Alert, Oriented x3, No Motor/Sensory Deficits, Normal Mood/Affect, polarity tester II-XII Norm as Tested Skin: Normal Color, Warm/Dry Lymphatic: No Adenopathy Results/Procedures Lab Laboratory Tests 11/12/18 05:50 Patient resulted labs reviewed. Assessment/Plan Assessment and Plan Assess & Plan/Chief Complaint Assessment per Dr. Cortez: ACUTE DIVERTICULITIS DIARRHEA NAUSEA MILD LEUKOCYTOSIS HYPOTHYROIDISM HYPERTENSION Plan: Hep-locked IV fluid PT/OT Ambulate MiraLAX Monitor closely Diagnosis/Problems Diagnosis/Problems (1) Intractable abdominal pain Status: Acute (2) Diverticulitis Status: Acute (3) Diarrhea Status: Acute Qualifiers: Diarrhea type: unspecified type Qualified Codes: R19.7 - Diarrhea, unspecified (4) Hypertension Status: Acute Qualifiers: Hypertension type: essential hypertension Qualified Codes: I10 - Essential (primary) hypertension Clinical Quality Measures DVT/VTE Risk/Contraindication: Risk Factor Score Per Nursin RFS Level Per Nursing on Admit: 4+=Very High MARIE JAUREGUI DO Nov 12, 2018 12:25
[2018-11-12] MEDS ORDERED: POLYETHYLENE GLYCOL 17 GM (MIRALAX) PACK PO ONE (12:30)
[2018-11-12 15:26] VITALS: BP 145/69
[2018-11-12] MEDS: ATORVASTATIN 20 MG (LIPITOR) TABLET PO SCH (20:58)
[2018-11-12] MEDS: POLYETHYLENE GLYCOL 17 GM (MIRALAX) PACK PO SCH (20:58)
[2018-11-13 00:14] VITALS: BP 148/65
[2018-11-13] MEDS: LEVOTHYROXINE 88 MCG (LEVOTHORID) TAB PO SCH (03:11)
[2018-11-13] MEDS: CIPROFLOXACIN 400 MG/D5W 200 ML (PRE-MIX) IV SCH ×2 (03:16→15:30)
[2018-11-13] MEDS: metroNIDAZOLE 500 MG/100 ML IVPB (PRE-MIX) IV SCH ×4 (04:12→22:02)
[2018-11-13 05:26] LABS: BASOPHILS % (AUTO) 0 % (0-10); EOSINOPHILS # (AUTO) 0.3 10^3/uL (0.0-0.3); EOSINOPHILS % (AUTO) 5 % (0-10); HEMATOCRIT 31 % (35-52); HEMOGLOBIN 9.7 G/DL (11.5-16.0); LYMPHOCYTES # (AUTO) 1.6 X 10^3 (1.0-4.0); LYMPHOCYTES % (AUTO) 26 % (12-44); MEAN CORPUSCULAR HEMOGLOBIN 29 PG (25-34); MEAN CORPUSCULAR HGB CONC 31 G/DL (32-36); MEAN CORPUSCULAR VOLUME 93 FL (80-99); MEAN PLATELET VOLUME 10.3 FL (7.4-10.4); MONOCYTES # (AUTO) 0.7 X 10^3 (0.0-1.0); MONOCYTES % (AUTO) 11 % (0-12); NEUTROPHILS # (AUTO) 3.5 X 10^3 (1.8-7.8); NEUTROPHILS % (AUTO) 58 % (42-75); PLATELET COUNT 196 10^3/uL (130-400); RED CELL DISTRIBUTION WIDTH 13.6 % (10.0-14.5)
[2018-11-13 05:41] LABS: ALANINE AMINOTRANSFERASE 17 U/L (0-55); ALBUMIN 3.2 GM/DL (3.2-4.5); ALKALINE PHOSPHATASE 58 U/L (40-136); BILIRUBIN,TOTAL 0.3 MG/DL (0.1-1.0); BUN/CREATININE RATIO 4; CALCIUM 8.8 MG/DL (8.5-10.1); CARBON DIOXIDE 24 MMOL/L (21-32); CHLORIDE 105 MMOL/L (98-107); CREATININE SERUM 0.78 MG/DL (0.60-1.30); GFR ESTIMATED > 60; GLUCOSE 115 MG/DL (70-105); POTASSIUM 3.4 MMOL/L (3.6-5.0); SODIUM 138 MMOL/L (135-145); TOTAL PROTEIN 5.3 GM/DL (6.4-8.2)
[2018-11-13 08:00] VITALS: BP 149/72
[2018-11-13] MEDS: lisINopril 20 MG (PRINIVIL) TABLET PO SCH (09:23)
[2018-11-13] MEDS: LACTOBACILLUS ACIDOPHILUS (PROBIOTIC) CAPSULE PO SCH ×4 (09:23→21:58)
[2018-11-13] MEDS: ASPIRIN E.C. 81 MG (ECOTRIN) TAB PO SCH (09:23)
[2018-11-13] MEDS: LORATADINE (CLARITIN) 10 MG TAB PO SCH (09:23)
[2018-11-13] MEDS: meTOproloL SUCCINATE 50 MG (TOPROL XL) TAB PO SCH (09:23)
[2018-11-13] MEDS: PANTOPRAZOLE 40 MG (PROTONIX) VIAL IV SCH (09:24)
[2018-11-13] MEDS: ACETAMINOPHEN 325 MG TABLET PO PRN (09:24)
--- NOTE | 2018-11-13 11:22 | Progress Note - Hospitalist ---
Subjective HPI/CC On Admission Date Seen by Provider: Nov 13, 2018 Time Seen by Provider: 10:30 Subjective/Events-last exam Patient too frightened to go home, changed to inpatient status Abdominal pain is improved but she seems to be focused on it Has had colonoscopies before Patient definitely appears to have some dementia Very difficult to follow her thought process Appears to have very short-term memory issues Ambulating around a little bit Review of Systems General: Fatigue Gastrointestinal: Abdominal Pain Focused Exam Lactate Level 11/11/18 03:05: Lactic Acid Level 1.27 Objective Exam Vital Signs Vital Signs Date Time Temp Pulse Resp B/P (MAP) Pulse Ox O2 Delivery O2 Flow Rate FiO2 11/13/18 08:00 Room Air 11/13/18 08:00 98.6 69 18 149/72 (97) 92 11/11/18 04:56 1.00 Capillary Refill : Less Than 3 Seconds General Appearance: No Apparent Distress, WD/WN, Chronically ill HEENT: PERRL/EOMI, Pharynx Normal Neck: Full Range of Motion, Non Tender, Supple Respiratory: Chest Non Tender, Lungs Clear, Normal Breath Sounds, No Accessory Muscle Use, No Respiratory Distress Cardiovascular: Regular Rate, Rhythm, No Edema Gastrointestinal: Soft, Abnormal Bowel Sounds (HYPERACTIVE), Tenderness (LLQ) Rectal: Deferred Back: Normal Inspection, No Vertebral Tenderness Extremity: Normal Capillary Refill, Normal Inspection, Normal Range of Motion, Non Tender, No Calf Tenderness, No Pedal Edema Neurologic/Psychiatric: Alert, Oriented x3, No Motor/Sensory Deficits, Normal Mood/Affect, program support clerk II-XII Norm as Tested, Disoriented (??) Skin: Normal Color, Warm/Dry Lymphatic: No Adenopathy Results/Procedures Lab Laboratory Tests 11/13/18 04:40 Patient resulted labs reviewed. Assessment/Plan Assessment and Plan Assess & Plan/Chief Complaint Assessment per Dr. Cortez: ACUTE DIVERTICULITIS DIARRHEA NAUSEA MILD LEUKOCYTOSIS HYPOTHYROIDISM HYPERTENSION Plan: Hep-locked IV fluid PT/OT Ambulate MiraLAX Monitor closely Diagnosis/Problems Diagnosis/Problems (1) Intractable abdominal pain Status: Acute (2) Diverticulitis Status: Acute (3) Diarrhea Status: Acute Qualifiers: Diarrhea type: unspecified type Qualified Codes: R19.7 - Diarrhea, unspecified (4) Hypertension Status: Acute Qualifiers: Hypertension type: essential hypertension Qualified Codes: I10 - Essential (primary) hypertension Clinical Quality Measures DVT/VTE Risk/Contraindication: Risk Factor Score Per Nursin RFS Level Per Nursing on Admit: 4+=Very High MARIE JAUREGUI DO Nov 13, 2018 11:22
[2018-11-13 16:45] VITALS: BP 160/72
[2018-11-13] MEDS: POLYETHYLENE GLYCOL 17 GM (MIRALAX) PACK PO SCH (21:58)
[2018-11-13] MEDS: ATORVASTATIN 20 MG (LIPITOR) TABLET PO SCH (21:58)
[2018-11-14 00:37] VITALS: BP 147/74
[2018-11-14] MEDS: CIPROFLOXACIN 400 MG/D5W 200 ML (PRE-MIX) IV SCH (03:01)
[2018-11-14] MEDS: LEVOTHYROXINE 88 MCG (LEVOTHORID) TAB PO SCH (03:03)
[2018-11-14] MEDS: ACETAMINOPHEN 325 MG TABLET PO PRN (03:46)
[2018-11-14] MEDS: metroNIDAZOLE 500 MG/100 ML IVPB (PRE-MIX) IV SCH ×2 (04:58→11:07)
[2018-11-14] MEDS: SCOPOLAMINE 1.5 MG (TRANSDERM-SCOP) PATCH TOP SCH ×2 (04:58→05:01)
[2018-11-14 05:18] LABS: BASOPHILS % (AUTO) 0 % (0-10); EOSINOPHILS # (AUTO) 0.2 10^3/uL (0.0-0.3); EOSINOPHILS % (AUTO) 3 % (0-10); HEMATOCRIT 33 % (35-52); HEMOGLOBIN 10.5 G/DL (11.5-16.0); LYMPHOCYTES % (AUTO) 18 % (12-44); MEAN CORPUSCULAR HEMOGLOBIN 29 PG (25-34); MEAN CORPUSCULAR HGB CONC 32 G/DL (32-36); MEAN CORPUSCULAR VOLUME 92 FL (80-99); MEAN PLATELET VOLUME 10.1 FL (7.4-10.4); MONOCYTES # (AUTO) 0.5 X 10^3 (0.0-1.0); MONOCYTES % (AUTO) 9 % (0-12); NEUTROPHILS % (AUTO) 70 % (42-75); PLATELET COUNT 192 10^3/uL (130-400); RED CELL DISTRIBUTION WIDTH 13.2 % (10.0-14.5); WHITE BLOOD COUNT 5.7 10^3/uL (4.3-11.0)
[2018-11-14 05:44] LABS: ALANINE AMINOTRANSFERASE 17 U/L (0-55); ALBUMIN 3.4 GM/DL (3.2-4.5); ALKALINE PHOSPHATASE 67 U/L (40-136); BILIRUBIN,TOTAL 0.3 MG/DL (0.1-1.0); BUN/CREATININE RATIO 4; CALCIUM 8.9 MG/DL (8.5-10.1); CARBON DIOXIDE 23 MMOL/L (21-32); CHLORIDE 105 MMOL/L (98-107); CREATININE SERUM 0.76 MG/DL (0.60-1.30); GFR ESTIMATED > 60; GLUCOSE 154 MG/DL (70-105); POTASSIUM 3.4 MMOL/L (3.6-5.0); SODIUM 138 MMOL/L (135-145); TOTAL PROTEIN 5.7 GM/DL (6.4-8.2)
[2018-11-14 08:00] VITALS: BP 196/79
[2018-11-14] MEDS: lisINopril 20 MG (PRINIVIL) TABLET PO SCH (08:02)
[2018-11-14] MEDS: meTOproloL SUCCINATE 50 MG (TOPROL XL) TAB PO SCH (08:02)
[2018-11-14] MEDS: PANTOPRAZOLE 40 MG (PROTONIX) VIAL IV SCH (08:02)
[2018-11-14] MEDS: ASPIRIN E.C. 81 MG (ECOTRIN) TAB PO SCH (08:02)
[2018-11-14] MEDS: LACTOBACILLUS ACIDOPHILUS (PROBIOTIC) CAPSULE PO SCH (08:02)
[2018-11-14] MEDS: LORATADINE (CLARITIN) 10 MG TAB PO SCH (08:02)
[2018-11-14] MEDS: ONDANSETRON 4 MG/2 ML (SDV) Z0FRAN IV PRN (08:06)
--- NOTE | 2018-11-14 09:05 | Discharge Summary ---
Diagnosis/Chief Complaint Date of Admission Nov 12, 2018 at 14:23 Date of Discharge Discharge Date: Nov 14, 2018 Discharge Time: 12:00 Admission Diagnosis Admission Diagnosis ACUTE DIVERTICULITIS DIARRHEA NAUSEA MILD LEUKOCYTOSIS HYPOTHYROIDISM HYPERTENSION Discharge Diagnosis ACUTE DIVERTICULITIS DIARRHEA NAUSEA MILD LEUKOCYTOSIS HYPOTHYROIDISM HYPERTENSION Reason Hospital Visit PT IS A 77 Y/O FEMALE WHO IS KNOWN TO ME FROM CLINIC. SHE PRESENTED TO THE EMERGENCY DEPARTMENT TWICE YESTERDAY DUE TO PERSISTENT DIARRHEA. SHE WAS INITIALLY SENT HOME WITH ORAL ANTIBIOTICS, BUT WAS UNABLE TO KEEP DOWN FLUIDS AND RETURNED TO THE EMERGENCY DEPARTMENT WITH PERSISTENT NAUSEA AND DIARRHEA. SHE STATES THAT SHE STILL HAS PAIN IN HER LEFT LOWER ABDOMEN TODAY AND IS STILL NAUSEATED. Discharge Summary Discharge Physical Examination Allergies: Coded Allergies: latex (Verified Allergy, Mild, RASH, 06/01/18) Sulfa (Sulfonamide Antibiotics) (Verified Allergy, Unknown, 12/04/14) Vitals & I&Os Vital Signs Date Time Temp Pulse Resp B/P (MAP) Pulse Ox O2 Delivery O2 Flow Rate FiO2 11/14/18 00:37 98.5 67 20 147/74 (98) 94 Room Air 11/13/18 20:00 1.00 General Appearance: Alert, Oriented X3, Cooperative, No Acute Distress, Other (anxious) HEENT: Atraumatic, PERRLA, EOMI, Mucous Memb Moist/[place] Respiratory: Clear to Auscultation, Normal Air Movement Cardiovascular: Regular Rate Abdominal: Normal Bowel Sounds, Soft, Other (MILD TTP OVER LLQ) Extremities: No Clubbing, No Cyanosis, No Edema Skin: No Rashes, No Breakdown, No Significant Lesion Neuro: Normal Speech, Strength at 5/5 X4 Ext, Cranial Nerves 3-12 NL Psych/Mental Status: Mental Status NL, Mood NL Hospital Course Was the Problem List Reviewed?: Yes ACUTE DIVERTICULITIS DIARRHEA NAUSEA MILD LEUKOCYTOSIS HYPOTHYROIDISM HYPERTENSION ACUTE DIVERTICULITIS WITH DIARRHEA - PT ON IV FLUIDS, ON IV ANTIBIOTICS, CONTINUE WITH CURRENT TREATMENT - PT WAS TOO ANXIOUS/NERVOUS TO GO HOME OVER THE WEEKEND AND WAS KEPT IN THE HOSPITAL ON IV ANTIBIOTICS DUE TO HER ABDOMINAL PAIN BEING PERSISTENT AND HAVING NAUSEA. DISCHARGE TO HOME WITH ORAL FLAGYL AND CIPRO TODAY X 1 DOSE EACH AND 2 MORE DAYS OF ANTIBIOTICS FOR 7 DAYS OF TREATMENT. NAUSEA - CONTROLLED WITH ZOFRAN - WILL SEND RX FOR ZOFRAN TO PHARMACY FOR PRN USE. MILD LEUKOCYTOSIS - IMPROVED DOWN TO NORMAL TODAY. HYPOTHYROIDISM - RESUME HOME REGIMEN HYPERTENSION - RESUME HOME ANTIHYPERTENSIVE REGIMEN PT WAS CHANGED TO INPATIENT STATUS DUE TO HER DIVERTICULITIS AND NAUSEA - NOW STABLE ENOUGH TO BE DISCHARGED TO HOME. Pending Labs Laboratory Tests 11/14/18 04:58: White Blood Count 5.7, Red Blood Count 3.60, Hemoglobin 10.5, Hematocrit 33, Mean Corpuscular Volume 92, Mean Corpuscular Hemoglobin 29, Mean Corpuscular Hemoglobin Concent 32, Red Cell Distribution Width 13.2, Platelet Count 192, Mean Platelet Volume 10.1, Neutrophils (%) (Auto) 70, Lymphocytes (%) (Auto) 18, Monocytes (%) (Auto) 9, Eosinophils (%) (Auto) 3, Basophils (%) (Auto) 0, Neutrophils # (Auto) 4.0, Lymphocytes # (Auto) 1.0, Monocytes # (Auto) 0.5, Eosinophils # (Auto) 0.2, Basophils # (Auto) 0.0, Sodium Level 138, Potassium Level 3.4, Chloride Level 105, Carbon Dioxide Level 23, Anion Gap 10, Blood Urea Nitrogen 3, Creatinine 0.76, Estimat Glomerular Filtration Rate > 60, BUN/Creatinine Ratio 4, Glucose Level 154, Calcium Level 8.9, Corrected Calcium 9.4, Total Bilirubin 0.3, Aspartate Amino Transf (AST/SGOT) 25, Alanine Aminotransferase (ALT/SGPT) 17, Alkaline Phosphatase 67, Total Protein 5.7, Albumin 3.4 Discharge Condition at discharge IMPROVED Instructions to patient/family Please see electronic discharge instructions given to patient. Discharge Medications Reviewed and agree with Discharge Medication list on patient's Discharge Instruction sheet Clinical Quality Measures DVT/VTE Risk/Contraindication: Risk Factor Score Per Nursin RFS Level Per Nursing on Admit: 4+=Very High MARTA FINN MD Nov 14, 2018 09:05
[2018-11-14] MEDS ORDERED: METO-370 PO (09:10)
[2018-11-14] MEDS ORDERED: CIPR500T4 PO (09:11)
[2018-11-14] MEDS ORDERED: ONDA4TAB11 PO (09:11)
[2018-11-14] MEDS ORDERED: METR500T PO (09:11)
--- NOTE | 2018-11-14 09:13 | Discharge Inst-Complex ---
PDI Med Rec & Follow Up Appt. New Medications: Ciprofloxacin HCl (Ciprofloxacin HCl) 500 Mg Tablet 500 MG PO BID, #5 TAB Metronidazole (Flagyl) 500 Mg Tablet 500 MG PO TID, #7 TAB Ondansetron (Ondansetron Odt) 4 Mg Tab.rapdis 4 MG PO QID PRN for NAUSEA/VOMITING, #30 TAB Changed Medications: Metoprolol Succinate (Metoprolol Succinate) 50 Mg Tab.er.24h 50 MG PO UD, #45 TAB 6 Refills (Changed from: DAILY; Refills: ) 1 PILL IN THE MORNING AND 1/2 PILL AT BEDTIME Continued Medications: Acetaminophen (Arthritis Pain Relief) 650 Mg Tablet.er 1300 MG PO Q8H PRN for PAIN-MILD, TAB TAKES 2 (650MG) TABLETS Aspirin (Aspir 81) 81 Mg Tablet.dr 81 MG PO DAILY, TAB Glucosam/Chond/Hyalu/Cf Borate (Move Free Joint Health Tablet) 1 Each Tablet 1 TAB PO HS, TAB (This prescription has been renewed) L.acidoph & Paracasei,B.lactis (Probiotic) 1 Each Capsule 1 CAP PO DAILY, CAP (This prescription has been renewed) Levocetirizine Dihydrochloride (Levocetirizine Dihydrochloride) 5 Mg Tablet 5 MG PO DAILY, TAB (This prescription has been renewed) Levothyroxine Sodium (Synthroid) 88 Mcg Tablet 88 MCG PO 0300, TAB (This prescription has been renewed) Lisinopril (Lisinopril) 20 Mg Tablet 40 MG PO DAILY, TAB (This prescription has been renewed) TAKES 2 (20MG) TABLETS Omeprazole Magnesium (Prilosec Otc) 20 Mg Tablet.dr 20 MG PO DAILY, TAB (This prescription has been renewed) Pravastatin Sodium (Pravastatin Sodium) 80 Mg Tablet 80 MG PO HS, TAB Propylene Glycol/Peg 400 (Systane 0.3-0.4% Eye Drops) 15 Ml Drops 1 DROP OU TID, DROPS (This prescription has been renewed) Sodium Chloride (Saline Nasal [place]) 30 Ml [place] 2 SPRAYS NS BID PRN for ALLERGIES, SPRAY (This prescription has been renewed) [Super D Immune] () 1 CAP PO DAILY (This prescription has been renewed) VITAMIN A 2300 IU MAGNESIUM 250MG VITAMIN D3 4000IU ZINC 5MG Vitamin B Complex (Super B-50 Complex) 1 Each Capsule 1 CAP PO DAILY, CAP (This prescription has been renewed) [Waterex] () 1 TAB PO BID, TAB VITAMIN B6 MAGNESIUM OXIDE POTASSIUM Prescription: Transmitted to Pharmacy Patient Instructions: 1WK FOLLOW UP IN [facility] Activity, Diet and PDI Resume Normal Activity: Yes Discharge Diet: Other Diet (ADVANCE DIET TOLERATED - AVOID SEEDS, NUTS, POPCORN) Diet for 24 Hours: No Alcohol, No Mears Foods, No Spicy Foods Diet After 24 Hours: Clear Liquid if Nauseous Drink 6-8 Glasses of Fluid/Day: Yes Driving Instructions: No Driving for 24 Hours Return to The Hospital For: ANY CONCER FOR ABDOMINAL PAIN THAT IS NOT RESOLVING OR IS ACUTELY WORSENING, CHEST PAIN, OR ANY CONCERN FOR LIFETHREATENING ILLNESS OR INJURY Symptoms to Reoprt to : Appetite Changes, Fever Over 101 Degrees F, Pain/Pressure in Chest, Diarrhea(Persistant), Nausea/Vomiting (THAT DOES NOT IMPROVE OR RESOLVE WITH MEDICATIONS) For Problems or Questions: Contact Your Physician, Go to Emergency Room MARTA FINN MD Nov 14, 2018 09:13
--- NOTE | 2018-11-14 10:05 | Physical Therapy Progress Note ---
Therapy Progress Note Patient is currently independent PLOF with will dismiss to home on this date. No skilled PT indicated. NOAH EPSTEIN PT Nov 14, 2018 10:04
--- NOTE | 2018-11-14 12:08 | NUR ---
Pt is [employer] and ready for discharge. Hair Spring Cutter offered blessing.
[2018-11-14 12:35] VITALS: BP 178/78
--- NOTE | 2018-11-14 12:35 | NUR ---
PAMELA VÁSQUEZ demonstrates understanding of discharge instructions and accurately returns instructions upon questioning. Copy of Post-Discharge Instructions given to PT. PAMELA VÁSQUEZ is ABLE to manage continuing needs after discharge. Patients belongings returned to PT. Patient discharged from 419-1 on 11/14/18 at 1235. PAMELA VÁSQUEZ left floor via W/C, accompanied by STAFF AND DAUGHTER PER AUTO.
== END 2018-11-14 12:35 | disposition home or self-care (01) | DRG 392 ==
LOC: EDUNIT# 02:55 → ER 02:56 → 4TH 03:50 → UNDOADMOB 03:50 → 4TH 04:33 → OBSVTOIN 11-12 14:23 → INTOOBSV 11-12 14:23 → UNDODISIN 11-14 12:35
PROVIDERS: ADMIT Family Medicine; ATTEND Family Medicine
DX: K57.92 Diverticulitis of intestine, part unspecified, without perforation or abscess without bleeding (principal); R19.7 Diarrhea, unspecified; E03.9 Hypothyroidism, unspecified; I10 Essential (primary) hypertension; K21.9 Gastro-esophageal reflux disease without esophagitis; M19.91 Primary osteoarthritis, unspecified site; E78.00 Pure hypercholesterolemia, unspecified; I65.29 Occlusion and stenosis of unspecified carotid artery; F03.90 Unspecified dementia, unspecified severity, without behavioral disturbance, psychotic disturbance, mood disturbance, and anxiety; D72.829 Elevated white blood cell count, unspecified; R11.0 Nausea; F41.9 Anxiety disorder, unspecified; R42 Dizziness and giddiness; Z85.828 Personal history of other malignant neoplasm of skin; Z96.651 Presence of right artificial knee joint; Z86.73 Personal history of transient ischemic attack (TIA), and cerebral infarction without residual deficits; Z88.2 Allergy status to sulfonamides; Z91.040 Latex allergy status
CPT/HCPCS: 36415; 80053; 81000; 82150; 83605; 83690; 83735; 85025; 85027; 87015; 87040; 87045; 87046; 87324; 87449; 87899; 93041; 96361; 96372; 96374; 96375; G0378

== ENCOUNTER → 2018-12-26 | Outpatient (CLI) | payer MEDICARE, OTHER ==
[~2018-12-26] MED LIST changes: +CIPR500T4 PO; +METR500T PO; +ONDA4TAB11 PO; +PROP15DR OU; +SODI30SP2 NS; +TOBR5DRO13 OU
--- NOTE | 2018-12-26 14:32 | Diagnostic Imaging Report ---
PROCEDURE: US Thyroid. TECHNIQUE: Multiple real-time grayscale images were obtained of the thyroid in various projections. INDICATION: Thyroid nodule, followup. COMPARISON: Correlation is made with prior thyroid ultrasound from 07/08/2018. FINDINGS: Right lobe of the thyroid measures 4.1 x 1.0 x 1.1 cm and the left lobe measures 3.5 x 1.0 x 1.2 cm. Isthmus is 1 mm in thickness. Right lower pole thyroid nodule is similar in size at 1.4 x 0.7 x 0.8 cm compared with 1.2 x 0.8 x 0.6 cm. Slight differences in measurement may be owing to slight differences in measurement technique. Continued followup is recommended. No new masses are seen. There are no microcalcifications. IMPRESSION: Stable right lower pole thyroid nodule. Continued followup with repeat study in six months is recommended. Dictated by: Dictated on workstation # [id number]
== END ==
LOC: RAD 10:42
PROVIDERS: ATTEND Otolaryngology Otolaryngology/Facial Plastic Surgery
DX: E04.1 Nontoxic single thyroid nodule (principal)
CPT/HCPCS: 76536

== ENCOUNTER → 2018-12-30 | Outpatient (CLI) | payer MEDICARE, OTHER | LOC: RAD 10:25 | PROVIDERS: ATTEND Nurse Practitioner Family | DX: Z12.31 Encounter for screening mammogram for malignant neoplasm of breast (principal) | CPT/HCPCS: 77067 ==

== ENCOUNTER → 2019-06-19 | Outpatient (CLI) | payer MEDICARE, OTHER ==
[~2019-06-19] MED LIST changes: -ACET-2055 PO; +ACET650T13 PO; +CATHETER FLUSH 10 ML SYR IV PRN; +HOLD METFORMIN - RECEIVED CONTRAST 20 ML VIAL IV SCH; +IOHEXOL 350 MG/ML 100 ML (OMNIPAQUE 350) VIAL IV ONE; -METO-370 PO; +METO50TA7 PO; +NS 100 ML (IVPB) BAG IV ONE
[2019-06-19 13:01] LABS: BUN/CREATININE RATIO 13; CREATININE SERUM 0.84 MG/DL (0.60-1.30); GFR ESTIMATED > 60
--- NOTE | 2019-06-19 15:43 | Diagnostic Imaging Report ---
EXAMINATION: CT of the neck and chest with contrast. INDICATION: Thyroid nodule, history of basal and squamous cell carcinoma. TECHNIQUE: Contiguous axial sections were taken through the neck following administration of intravenous contrast. Subsequently, additional images were taken through the thorax. Sagittal and coronal reconstructed images were also obtained. FINDINGS: The previous CT neck/chest exam of 04/01/2018 noted a stable-appearing benign right paratracheal air cyst in the lower neck near the thoracic inlet. On this exam, that finding is again evident and does not appear to have changed significantly. The thyroid ultrasound exam performed on 12/26/2018 noted a 1.4 x 0.7 x 0.8 cm nodule in the inferior pole of the right lobe. This finding seems similar to the prior exam of 07/08/2018. That finding is not well appreciated on this study, however. Reportedly, a thyroid ultrasound exam is pending for further evaluation. There is atherosclerotic disease involving both carotid bifurcations but there is no sign of a hemodynamically significant stenosis of the common or internal carotid arteries. The vertebral arteries are opacified and appear codominant. There is no mass or adenopathy involving the neck. The intracranial contents, where visualized, are unremarkable. The bone windows show no sign of a fracture or of a destructive lesion. There is fairly severe degenerative disc and bony disease at C5-C6 and C6-C7. The images through the thorax show that the heart size is within normal limits and stable when compared to the prior exam. The chronic pulmonary changes and the benign granulomas in both lungs seen previously are again evident and no different. There is no sign of failure, pneumonia, or pleural effusion to indicate an acute abnormality. The aorta is not abnormally dilated. There is no evidence for dissection. The pulmonary arteries were not well opacified and consequently difficult to assess for pulmonary embolus. There is no obvious defect to indicate a pulmonary embolus. There is no mediastinal or hilar adenopathy. The sections through the upper abdomen failed to show any sign of an acute abnormality. The bone windows of the thorax are unremarkable for fracture or for destructive lesion. IMPRESSION: 1. There is no evidence for an acute abnormality of the neck or chest. 2. The benign-appearing right paratracheal air cyst in the lower neck seen on the previous study is again evident and does not appear to have changed significantly. 3. There are calcified granulomas in both lungs but there is no parenchymal lung mass identified to suggest malignancy. 4. There is fairly severe degenerative disc and bony disease at C5-C6 and C6-C7. Dictated by: Dictated on workstation # [id number]
--- NOTE | 2019-06-19 16:24 | Diagnostic Imaging Report ---
PROCEDURE: US Thyroid. TECHNIQUE: Multiple real-time grayscale images were obtained of the thyroid in various projections. INDICATION: Thyroid nodule. FINDINGS: The previous thyroid ultrasound exam of 12/26/2018 noted a 1.4 x 0.7 x 0.8 cm nodule in the right lobe of the thyroid. This finding seems stable when compared to the prior exam of 07/08/2018. That finding is not as well visualized on this study but does not appear to have changed adversely. There are a few small hypoechoic areas in both lobes of the thyroid. These seem similar to the prior exam as well. There is now a 1.9 x 0.7 x 0.8 cm lymph node in the right neck. This has a generally benign appearance. The thyroid gland is not enlarged with the right lobe measuring 3.8 x 1.1 x 0.8 cm and the left lobe estimated to be 4.0 x 1.2 x 0.7 cm (normal gland size 4-5 x 2 x 2 cm or less). IMPRESSION: 1. The overall appearance of the thyroid gland has not changed significantly since the prior exam. The nodule in the inferior pole of the right lobe however is not as well visualized as on the prior study. 2. There is now a slightly enlarged but benign-appearing lymph node in the right neck. Dictated by: Dictated on workstation # [id number]
== END ==
LOC: RAD 12:29
PROVIDERS: ATTEND Otolaryngology Otolaryngology/Facial Plastic Surgery
DX: E04.1 Nontoxic single thyroid nodule (principal); J84.10 Pulmonary fibrosis, unspecified; M50.322 Other cervical disc degeneration at C5-C6 level; M89.9 Disorder of bone, unspecified; J39.8 Other specified diseases of upper respiratory tract; Z85.89 Personal history of malignant neoplasm of other organs and systems
CPT/HCPCS: 36415; 70491; 71260; 76536; 82565; 84520

== ENCOUNTER → 2020-04-22 | Outpatient (CLI) | payer MEDICARE, OTHER ==
[~2020-04-22] MED LIST changes: +ACET-2055 PO; -ACET650T13 PO; -CATHETER FLUSH 10 ML SYR IV PRN; -HOLD METFORMIN - RECEIVED CONTRAST 20 ML VIAL IV SCH; -IOHEXOL 350 MG/ML 100 ML (OMNIPAQUE 350) VIAL IV ONE; -NS 100 ML (IVPB) BAG IV ONE
--- NOTE | 2020-04-22 12:32 | Diagnostic Imaging Report ---
PROCEDURE: Pelvic comp/transvaginal sonogram. TECHNIQUE: Complete transabdominal and transvaginal pelvic ultrasound was performed. In addition, limited pelvic Doppler was performed. INDICATION: Vaginal bleeding. FINDINGS: Uterus is anteverted measuring 5.7 x 3.0 x 3.9 cm. No myometrial mass is detected. There is a small cervical nabothian cyst. Endometrium is thickened for a patient this age measuring 9 mm. Right ovary measures 0.6 x 0.8 cm and the left ovary measures 1.1 x 0.5 x 0.9 cm. There appears to be blood flow present. No adnexal mass or free fluid is seen. IMPRESSION: Mild endometrial thickening for a patient this age. No other significant abnormality is seen. Dictated by: Dictated on workstation # [id number]
== END ==
LOC: RAD 11:15
PROVIDERS: ATTEND Obstetrics & Gynecology
DX: N93.9 Abnormal uterine and vaginal bleeding, unspecified (principal); R93.89 Abnormal findings on diagnostic imaging of other specified body structures
CPT/HCPCS: 76830; 76856

== ENCOUNTER → 2020-05-29 | Outpatient (CLI) | payer MEDICARE, OTHER ==
--- NOTE | 2020-05-29 13:21 | Diagnostic Imaging Report ---
EXAMINATION: CT Abdomen Pelvis without contrast. TECHNIQUE: Multiple contiguous axial images were obtained through the abdomen and pelvis without the use of intravenous contrast. All CT scans use one or more of the following dose optimizing techniques: automated exposure control, MA and/or KvP adjustment based on a patient size and exam type, or iterative reconstruction. HISTORY: Urinary tract infection. COMPARISON: 11/10/2018. FINDINGS: Limited views of the lower thorax are unremarkable. The liver is normal without focal lesion. There is no biliary ductal dilation. Gallbladder is normal. Pancreas is normal. Spleen is normal. Adrenal glands are normal. The kidneys are normal. There is no hydronephrosis. Urinary bladder is normal. Visualized bowel is normal in caliber without obstruction or inflammation. There is diverticulosis without diverticulitis. No free fluid or air. No abdominal or pelvic lymphadenopathy. Aorta is normal in caliber without aneurysm. There are no suspicious osseous lesions. IMPRESSION: 1. No acute abnormality in the abdomen or pelvis. Dictated by: Dictated on workstation # [id number]
== END ==
LOC: RAD 13:15
PROVIDERS: ATTEND Urology
DX: Z87.440 Personal history of urinary (tract) infections (principal)
CPT/HCPCS: 74176

== ENCOUNTER → 2020-10-31 | Outpatient (CLI) | payer MEDICARE, OTHER ==
[~2020-10-31] MED LIST changes: +CATHETER FLUSH 10 ML SYR IV PRN; -CIPR500T4 PO; +CIPR500T5 PO; +HOLD METFORMIN - RECEIVED CONTRAST 20 ML VIAL IV SCH; +IOHEXOL 350 MG/ML 100 ML (OMNIPAQUE 350) VIAL IV ONE; -LISI-552 PO; -LISI10TA2 PO; +LISI10TA25 PO; +LISI20TA26 PO; +NS 100 ML (IVPB) BAG IV ONE
[2020-10-31 08:00] LABS: BUN/CREATININE RATIO 20; CREATININE SERUM 0.79 MG/DL (0.60-1.30); GFR ESTIMATED > 60
--- NOTE | 2020-10-31 08:45 | Diagnostic Imaging Report ---
PROCEDURE: US Thyroid. TECHNIQUE: Multiple real-time grayscale images were obtained of the thyroid in various projections. INDICATION: Follow-up nodule in the right lobe of the thyroid. COMPARISON: 06/19/2019. FINDINGS: Both thyroid lobes demonstrate smooth and homogenous background echotexture. Color flow Doppler demonstrates normal and symmetric vascularity bilaterally. The right lobe measures 4.1 cm in length , 1.4 cm AP, and 0.8 cm transverse. The left lobe measures 4.2 cm in length , 1.3 cm AP, and 1.0 cm transverse. The isthmus measures 0.2 cm. Small hypoattenuating nodules are seen in both lobes of the thyroid, with the right nodule measuring 0.4 x 0.2 x 0.2 cm and the left measuring 0.3 x 0.3 cm. A previously described nodule in the inferior pole of the right lobe of the thyroid is not appreciated on this exam. Included views of the bilateral submandibular glands are unremarkable without evidence of mass or abnormal increased vascularity. IMPRESSION: 1. Stable tiny hypoattenuating nodules in the thyroid. A previously described nodule in the inferior pole of the right lobe of the thyroid is not seen on this exam. Recommend correlation with TSH values. No dedicated follow-up is recommended for the small visualized nodules. Dictated by: Dictated on workstation # [id number]
--- NOTE | 2020-10-31 09:03 | Diagnostic Imaging Report ---
PROCEDURE: CT chest with contrast only. TECHNIQUE: Multiple contiguous axial images were obtained through the chest after administration of intravenous contrast. Auto Exposure Controls were utilized during the CT exam to meet ALARA standards for radiation dose reduction. INDICATION: Tracheal diverticulum Compared with CT neck and chest dated 06/19/2019 Air sacculations postero-lateral to the trachea at and just above the thoracic inlet. Unchanged from priors presumed tracheal diverticuli. No findings of ermelinda airway rupture. No tracheobronchial endoluminal mass. Scattered bilateral calcified pulmonary granulomata has benign lung findings stable. No acute infiltrate or findings of edema. There is no thoracic lymphadenopathy. The aorta is patent and nonaneurysmal and nonacute. There is no evidence for pulmonary arterial embolus. No pleural or pericardial effusion. No acute or suspect chest wall pathology. The visualized upper abdomen shows a partially visualized distended gallbladder without detectable stone or wall thickening. 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 No endoluminal mass. Benign calcified pulmonary granulomata chronic. No suspicious lung mass or acute pulmonary abnormality. No pleural pathology. Dictated by: Dictated on workstation # [id number]
== END ==
LOC: RAD 07:16
PROVIDERS: ATTEND Otolaryngology Otolaryngology/Facial Plastic Surgery
DX: E04.1 Nontoxic single thyroid nodule (principal); J39.8 Other specified diseases of upper respiratory tract; J84.10 Pulmonary fibrosis, unspecified
CPT/HCPCS: 36415; 71260; 76536; 82565; 84520

== ENCOUNTER → 2021-01-13 | Outpatient (CLI) | payer MEDICARE, OTHER ==
[~2021-01-13] MED LIST changes: -CATHETER FLUSH 10 ML SYR IV PRN; -HOLD METFORMIN - RECEIVED CONTRAST 20 ML VIAL IV SCH; -IOHEXOL 350 MG/ML 100 ML (OMNIPAQUE 350) VIAL IV ONE; -NS 100 ML (IVPB) BAG IV ONE
--- NOTE | 2021-01-13 14:32 | Diagnostic Imaging Report ---
PROCEDURE: CT abdomen and pelvis without contrast. TECHNIQUE: Multiple contiguous axial images were obtained through the abdomen and pelvis without the use of intravenous contrast. Auto Exposure Controls were utilized during the CT exam to meet ALARA standards for radiation dose reduction. INDICATION: Bladder pressure and urinary tract infections. Correlation is made with prior CT from 05/29/2020. The lung bases are clear. The liver and gallbladder are unremarkable. No biliary ductal dilatation is seen. The pancreas and spleen are unremarkable. No adrenal mass is identified. No renal calculi are identified. No ureteral or bladder calculi are detected. There is no hydronephrosis. Uterus is unremarkable. The small and large bowel loops are normal caliber. There is no obstruction. There is moderate stool throughout the colon. There is diverticulosis of the sigmoid but no evidence of acute diverticulitis. No free fluid or fluid collection is identified. Bony structures are nonacute. IMPRESSION: 1. No evidence of urinary tract calculi or obstruction. 2. Uncomplicated diverticulosis. Dictated by: Dictated on workstation # [id number]
== END ==
LOC: RAD 13:15
PROVIDERS: ATTEND Urology
DX: K57.30 Diverticulosis of large intestine without perforation or abscess without bleeding (principal); Z87.440 Personal history of urinary (tract) infections
CPT/HCPCS: 74176

== ENCOUNTER 2021-02-18 05:46 | Outpatient (CLI) | payer MEDICARE, OTHER ==
[~2021-02-18] VITALS: Ht 160 cm; Wt 69.5 kg
[2021-02-18] MEDS ORDERED: ASPI-479 PO (16:16)
[2021-02-18] MEDS ORDERED: VITA1TAB PO (16:16)
[2021-02-18] MEDS ORDERED: METO50TA7 PO (16:20)
[2021-02-18] MEDS ORDERED: PEDI18TA2 PO (16:20)
[2021-02-18] MEDS ORDERED: CRAN500T PO (16:20)
[2021-02-18] MEDS ORDERED: ASCO-262 PO (16:20)
[2021-02-18] MEDS ORDERED: AMLO-250 PO (16:20)
[2021-02-18] MEDS ORDERED: CHOL200059 PO (16:20)
== END 2021-02-19 10:21 | disposition home or self-care (01) ==
LOC: PREOP 05:46
PROVIDERS: ATTEND Obstetrics & Gynecology
DX: Z01.818 Encounter for other preprocedural examination (principal)

== ENCOUNTER 2021-02-25 06:11 | Day surgery (SDC) | payer MEDICARE, OTHER ==
[~2021-02-25] VITALS: Ht 160 cm; Wt 69.5 kg
[2021-02-25] VITALS (12 sets, daily range): BP systolic 88–136; BP diastolic 38–74
[~2021-02-25 06:11] MED LIST changes: +AMLO-250 PO; +ASCO-262 PO; +ASPI-479 PO; +CHOL200059 PO; +CRAN500T PO; +PEDI18TA2 PO; +VITA1TAB PO
[2021-02-25] MEDS ORDERED: ceFAZolin 2 GM IV Premixed 50 ML IV ONE (06:30)
[2021-02-25] MEDS ORDERED: ONDANSETRON 4 MG/2 ML (SDV) Z0FRAN ONE ×2 (07:00→07:03)
[2021-02-25] MEDS ORDERED: ONDANSETRON 4 MG/2 ML (SDV) Z0FRAN IV ONE (07:00)
[2021-02-25] MEDS ORDERED: NEOSTIGMINE 3 MG/3 ML VIAL ONE (07:00)
[2021-02-25] MEDS ORDERED: FAMOTIDINE 20MG/2ML IV (PEPCID) IV ONE (07:00)
[2021-02-25] MEDS ORDERED: proPOfol 200 MG/20 ML (DIPRIVAN) VIAL IV ONE (07:00)
[2021-02-25] MEDS ORDERED: ROCURONIUM 10 MG/ML 5 ML SYRINGE IV ONE (07:00)
[2021-02-25] MEDS ORDERED: GLYCOPYRROLATE 0.2 MG/ML (ROBINUL) 2 ML VIAL ONE (07:00)
[2021-02-25] MEDS ORDERED: fentaNYL INJ 100 MCG/2 ML AMP ONE (07:00)
[2021-02-25] MEDS ORDERED: LIDOCAINE PF 2% 5 ML (XYLOCAINE) VIAL ONE (07:00)
[2021-02-25] MEDS ORDERED: SCOPOLAMINE 1.5 MG (TRANSDERM-SCOP) PATCH TOP ONE (07:00)
[2021-02-25] MEDS ORDERED: ESTRADIOL VAGINAL CREAM 42.5 GM (ESTRACE) VG ONE (07:02)
[2021-02-25] MEDS ORDERED: NS (IVPB) 100 ML ONE (07:02)
[2021-02-25] MEDS ORDERED: VASOPRESSIN INJECTION 20 UNIT/ML VIAL ONE (07:02)
[2021-02-25] MEDS ORDERED: LIDOCAINE/EPI 1%-1:100,000 (XYLOCAINE) 20ML ONE (07:02)
[2021-02-25 07:03] LABS: BASOPHILS # (AUTO) 0.1 10^3/uL (0.0-0.1); BASOPHILS % (AUTO) 1 % (0-10); EOSINOPHILS # (AUTO) 0.2 10^3/uL (0.0-0.3); EOSINOPHILS % (AUTO) 3 % (0-10); HEMATOCRIT 40 % (35-52); HEMOGLOBIN 13.6 g/dL (11.5-16.0); LYMPHOCYTES # (AUTO) 1.7 10^3/uL (1.0-4.0); LYMPHOCYTES % (AUTO) 22 % (12-44); MEAN CORPUSCULAR HEMOGLOBIN 33 pg (25-34); MEAN CORPUSCULAR HGB CONC 34 g/dL (32-36); MEAN CORPUSCULAR VOLUME 96 fL (80-99); MEAN PLATELET VOLUME 9.8 fL (9.0-12.2); MONOCYTES # (AUTO) 0.6 10^3/uL (0.0-1.0); MONOCYTES % (AUTO) 8 % (0-12); NEUTROPHILS # (AUTO) 5.1 10^3/uL (1.8-7.8); NEUTROPHILS % (AUTO) 66 % (42-75); PLATELET COUNT 244 10^3/uL (130-400); WHITE BLOOD COUNT 7.7 10^3/uL (4.3-11.0)
[2021-02-25] MEDS ORDERED: FAMOTIDINE 20MG/2ML IV (PEPCID) ONE (07:03)
[2021-02-25] MEDS ORDERED: SCOPOLAMINE 1.5 MG (TRANSDERM-SCOP) PATCH ONE (07:03)
[2021-02-25] MEDS ORDERED: ceFAZolin 2 GM IV Premixed 50 ML ONE (07:04)
[2021-02-25] MEDS: LACTATED RINGERS 1,000 ML IV PRN ×2 (07:08→08:38)
[2021-02-25] MEDS ORDERED: morphine INJ 10 MG/ML 1ML (SYR OR VIAL) ONE (07:09)
[2021-02-25] MEDS ORDERED: metroNIDAZOLE 500 MG/100 ML IVPB (PRE-MIX) IV ONE (07:15)
--- NOTE | 2021-02-25 07:50 | Progress Note-Pre Operative ---
Pre-Operative Progress Note H&P Reviewed The H&P was reviewed, patient examined and no changes noted. Date Seen by Provider: Feb 25, 2021 Time Seen by Provider: 07:20 Date H&P Reviewed: Feb 25, 2021 Time H&P Reviewed: 07:00 Pre-Operative Diagnosis: incomplete uterovaginal prolapse, cystocele, mixed incontinence FAM ELLIS DO Feb 25, 2021 07:50
--- NOTE | 2021-02-25 07:58 | Progress Note ---
Progress Note Assessment/Plan Date Seen by Provider: Feb 25, 2021 Time Seen by Provider: 07:20 Events since last exam Patient will have surgery today. She has complaint of pelvic pressure, uterine prolapse, incomplete emptying, mixed incontinence and these are all worsening. She has been seen by Dr. Corona who has recommended that she have a hysterectomy, ant repair and pubovaginal sling. She has had recurrent symptoms of urinary infections. She has multiple medication sensitivities and has provided a list of preferred medications and medications she cannot take. It sounds as though she has had some hospital psychosis that she has attributed to medications (flagyl, n arcotics) and has used po Valium occasionally for this. she takes Tylenol 650 mg x2 three times daily and this helps wit pain. She has taken tramadol without problem but does not want to take any oral narcotic. She has taken morphine without issues and would accept this for post operative severe pain. We have discussed the risks associated with surgery, including but not limited to, injury to bowel, bladder, ureter and soft tissues, bleeding, infection, blood clots, anesthesia and medication complications including . Also understands there is a risk of post operative urinary retention and may require a need to self cath post operatively, or wear a catheter at home for a few days - week. She understands and, though anxious, has asked to proceed with the surgery. Proper consents have been signed. She is NPO after midnight. She completed a bowel pre (has history of divert icular disease with infection) Has taken her oral antihypertensives this am with sip of water. Will use prophylactic Ancef and SCDs. Lungs CTA Heart RRR no murmur Pelvic exam not repeated but she has 2+ uterine prolapse, though the uterus is small. Some pain in the llq high cystocele and spontaneous incontinence with cough, movement, PVR was 28 ml. Assessment/Plan Proceed with RaTH, BSO, anterior colporrhaphy, pubovaginal sling Labs Laboratory Tests 02/25/21 06:35: White Blood Count 7.7, Red Blood Count 4.17, Hemoglobin 13.6, Hematocrit 40, Mean Corpuscular Volume 96, Mean Corpuscular Hemoglobin 33, Mean Corpuscular Hemoglobin Concent 34, Red Cell Distribution Width 12.0, Platelet Count 244, Mean Platelet Volume 9.8, Immature Granulocyte % (Auto) 0, Neutrophils (%) (Auto) 66, Lymphocytes (%) (Auto) 22, Monocytes (%) (Auto) 8, Eosinophils (%) (Auto) 3, Basophils (%) (Auto) 1, Neutrophils # (Auto) 5.1, Lymphocytes # (Auto) 1.7, Monocytes # (Auto) 0.6, Eosinophils # (Auto) 0.2, Basophils # (Auto) 0.1, Immature Granulocyte # (Auto) 0.0 FAM ELLIS DO Feb 25, 2021 07:58
[2021-02-25] MEDS ORDERED: LABETALOL HCL 20 MG/4 ML VIAL ONE (08:42)
--- NOTE | 2021-02-25 10:12 | Operative Report ---
Operative Report Date of Procedure/Surgery Feb 25, 2021 Surgeon (s) FAM ELLIS DO Slat Pickler (s): NA Post-Operative Diagnosis incomplete uterovaginal prolapse, rectocele, cystocele, mixed incontinence Procedure Performed RaTH- BSO, posterior colporrhaphy, desura pubovaginal sling Description of Procedure Anesthesia Type: General Estimated blood loss (mL): 50 Specimen(s) collected/removed uterus tubes ovaries Description of the Procedure After informed consent was obtained, patient was taken into the operating room where general anesthetic was found to be adequate. She was prepped and draped in the usual sterile fashion in the dorsal lithotomy position. A Be catheter was placed. A speculum was placed in the vagina. There was a rectocele, and a cystocele. The cervix was visualized and the anterior lip was grasped with a sharp toothed tenaculum. The uterus was sounded and depth was approximately 6.5 centimeters. I placed the Jennifer device (6.5 cm) and a 2.5 cm collar was advanced over the cervix. I inserted the Jennifer without difficulty, inflating the balloon and securing it around the fornix of the cervix. The collar was then secured with sutures at 12 o'clock. Attention was then turned to the patient's abdomen. A supraumbilical incision was made about 8 mm. A Veress needle was inserted and I confirmed intraabdominal placement with a drop in pressure and the saline drop test. The opening pressure was 7 mmHg. I then insufflated the abdomen to a maximum of 15 mmHg with warmed CO2 gas. I placed an additional 8 mm trocar in the left abdomen approximately 15 cm lateral to the umbilicus. The second robotic port was placed about 12 cm lateral to the right of the umbilical placement. This was an 8 mm trocar. These were placed under direct visualization of the laparoscope. 0.25% Marcaine was injected prior to placement of all trocars. When all placements were confirmed, the patient was placed in steep Trendelenburg allowing adequate visualization and the robot was brought in for docking. The docking was accomplished without difficulty. I then took over the command of the robot utilizing the vessel sealer and monopolar wendy. I was able to visualize the round ligaments bilaterally and grasped them and cauterized with bipolar cautery and then cut with my wendy. At this point, I then did grasped the infundibulopelvic ligaments bilaterally with the synchroseal and then transected with the wendy.I then moved my dissection to the posterior leaves of the broad ligament. I dissected the posterior leaves of the broad ligament off the uterine arteries skeletonizing them bilaterally. I then took a second clamp with the bipolar cautery and with the wendy, transected the vessels away from the lateral aspect to the cervical stroma. I dissected the anterior peritoneum off the lower uterine segment. I continually pushed the bladder back and I took excessively great care and I was eventually able to dissect the vesicouterine peritoneum off the lower uterine segment. I then dissected in a V fashion towards the midline between the uterosacral ligaments. This allowed me to skeletonize the uterine vessels bilaterally. The balloon on the JENNIFER was insufflated. This allowed me to see the JENNIFER circumferentially. I then performed a colpotomy anteriorly and then amputate with cervix away from the vaginal fornix. I then continued the colpotomy circumferentially. Once this was performed, the roofer assistant removed the uterus, tubes and ovaries through the vagina. She then left a sponge in the vagina to maintain the pneumoperitoneum. . I then began closure of the vaginal cuff. I closed the apices of the vaginal cuff with 2-0 Vicryl V lock sutures with a colposuspension through the uterosacral ligaments. This suspended the apices of the vaginal cuff. I extended this to the midline from both sides and overlapped the V lock sutures in the midline. Excellent closure is noted and hemostasis is achieved. All the needles were removed from the patient's abdomen. Now, the robotic instruments were removed and the robot was docked back to lapa roscopy. The pelvis was irrigated. There was no active bleeding noted. Bilateral ureters were seen the entire time during the surgery and were peristalsing. There was no excessive bleeding noted. The trocars were removed under direct visualization. The laparoscopic sites were visualized and found to be hemostatic. The trocar sites were injected with 0.25% Marcaine. The skin incisions were closed with 4-0 Monocryl in a subcuticular fashion and then with Dermabond. Op sites were placed over the inc ision sites. The instruments were removed from the vagina and I noted there were no abrasions. The patient was repositioned. The cystocele was mostly reduced but the rectocele appeared more prominent. The rectocele was now repaired. I grasped the perineum on either side of the midline with the beverly clamps. I then injected the posterior epithelium with the dilute vasopressin and then made a midline incision I undermined the posterior vaginal epithelium and then dissected this off of the pubovaginal fascia laterally. I then reduced the rectocele with two layers of interrupted figure of eight style 2-0 Vicryl sutures. This adequately reduced the rectocele. There was no enterocele. I then trimmed the vaginal epithelium and then closed the defect with 2-- Vicryl in a running fashion. I now made a midline incision in the anterior vaginal wall about 1 cm in length 1.5 cm from the urethral meatus. I then injected the periurethral space with dilute vasopressin and dissected laterally to the obturator membrane. I then performed the Desura pubovaginal sling in the standard fashion bilaterally. I left the applicator in place while the Be catheter was removed and cystoscopy was done. This was done in standard fashion and there was no evidence of intr avesicular injury or pathology. I then left fluid in the bladder and performed a crede maneuver and there was minimal leakage once the sling was tightened slightly. The sling was noted to lie in proper location in the midurethra without kinking. I then removed the application device and closed the skin with 4-0 monocryl. The vagina was then packed with Estrace cream and vaginal packing. Be catheter was replaced. Sponge, lap, needle and instrument counts correct times two. Patient was awakened and taken to recovery in a stable condition. Findings of the Procedure slightly enlarged, boggy, anteverted uterus, atrophic ovaries, left tubal cyst, evidence of diverticular disease 2+ rectocele, 2-3+ cystocele, reduced after hysterectomy Allergies and Home Medications Allergies Coded Allergies: latex (Verified Allergy, Mild, RASH, 06/01/18) Sulfa (Sulfonamide Antibiotics) (Verified Allergy, Unknown, 12/04/14) ciprofloxacin (Verified Allergy, Unknown, Rash, 02/18/21) codeine (Verified Adverse Reaction, Unknown, hallucinations, 02/25/21) metronidazole (Verified Adverse Reaction, Unknown, hallucinations, 02/25/21) Patient Home Medication List Home Medication List Reviewed: Yes Acetaminophen (Arthritis Pain Relief) 650 Mg Tablet.er, 1,300 MG PO Q8H PRN for PAIN-MILD, (Reported) Entered as Reported by: CRISTHIAN PENA on 10/16/15 1148 Amlodipine Besylate (Amlodipine Besylate) 5 Mg Tablet, 5 MG PO DAILY PRN for bp>150, (Reported) Entered as Reported by: CRISTHIAN PENA on 02/18/21 1620 Ascorbate Calcium (Vitamin C) 500 Mg Tablet, 500 MG PO DAILY, (Reported) Entered as Reported by: CRISTHIAN PENA on 02/18/21 1620 Aspirin (Adult Low Dose Aspirin EC) 81 Mg Tablet.dr, 81 MG PO DAILY, (Reported) Entered as Reported by: CRISTHIAN PENA on 02/18/21 1616 Cholecalciferol (Vitamin D3) (Vitamin D3) 50 Mcg Tablet, 50 MCG PO DAILY, (Reported) Entered as Reported by: CRISTHIAN PENA on 02/18/21 1620 Cranberry Fruit (Cranberry) 500 Mg Tab.chew, 1,000 MG PO DAILY, (Reported) Entered as Reported by: CRISTHIAN PENA on 02/18/21 1620 Docusate Sodium (Docusate Sodium) 100 Mg Capsule, 100 MG PO BID Prescribed by: FAM ELLIS on 02/27/21 0809 Glucosam/Chond/Hyalu/Cf Borate (Move Free Joint Health Tablet) 1 Each Tablet, 1 TAB PO HS, (Reported) Entered as Reported by: VIVI MORA on 06/01/18 1142 L.acidoph & Paracasei,B.lactis (Probiotic) 1 Each Capsule, 1 CAP PO DAILY, (Reported) Entered as Reported by: VIVI MORA on 06/01/18 1142 Levocetirizine Dihydrochloride (Levocetirizine Dihydrochloride) 5 Mg Tablet, 5 MG PO DAILY, (Reported) Entered as Reported by: VIVI MORA on 06/01/18 1142 Levothyroxine Sodium (Synthroid) 88 Mcg Tablet, 88 MCG PO 0300, (Reported) Entered as Reported by: VIVI MORA on 06/01/18 1142 Last Action: Last Taken Edited Lisinopril (Lisinopril) 20 Mg Tablet, 40 MG PO DAILY, (Reported) Entered as Reported by: VIVI MORA on 06/01/18 1142 Metoprolol Succinate (Metoprolol Succinate) 50 Mg Tab.er.24h, 50 MG PO DAILY, (Reported) Entered as Reported by: CRISTHIAN PEAN on 02/18/21 1620 Last Action: Last Taken Edited Omeprazole Magnesium (Prilosec Otc) 20 Mg Tablet.dr, 20 MG PO DAILY, (Reported) Entered as Reported by: VIVI MORA on 06/01/18 114 Pedi Mv No.79/Ferrous Fumarate (Flintstones with Iron Tab Chew) 18 Mg Tab.chew, 18 MG PO DAILY, (Reported) Entered as Reported by: CRISTHIAN PENA on 02/18/21 1620 Pravastatin Sodium (Pravastatin Sodium) 80 Mg Tablet, 80 MG PO HS, (Reported) Entered as Reported by: MAXINE VILLASEÑOR on 12/04/14 0307 Propylene Glycol/Peg 400 (Systane 0.3-0.4% Eye Drops) 15 Ml Drops, 1 DROP OU TID, (Reported) Entered as Reported by: VIVI MORA on 11/11/18 1415 Simethicone (Mi-Acid) 80 Mg Tab.chew, 80 MG PO PCHS Prescribed by: FAM ELLIS on 02/27/21 0809 Sodium Chloride (Saline Nasal [place]) 30 Ml [place], 2 SPRAYS NS BID PRN for ALLERGIES, (Reported) Entered as Reported by: VIVI MORA on 11/11/18 0948 Tramadol HCl (Tramadol HCl) 50 Mg Tablet, 50 MG PO Q4H PRN for PAIN-BREAKTHROUGH Prescribed by: FAM ELLIS on 02/27/21 0809 Vitamin B Complex (Ultra B-100 Complex) 1 Each Tablet.er, 1 EACH PO DAILY, (Reported) Entered as Reported by: CRISTHIAN PENA on 02/18/21 1616 [Waterex] , 1 TAB PO BID, (Reported) Entered as Reported by: VIVI MORA on 06/01/18 1142 FAM ELLIS DO Feb 25, 2021 10:12
[2021-02-25] MEDS ORDERED: morphine INJ 4 MG/ML 1 ML (VIAL/SYRINGE) IV PRN (10:15)
[2021-02-25] MEDS ORDERED: ONDANSETRON 4 MG/2 ML (SDV) Z0FRAN IV PRN (10:15)
[2021-02-25] MEDS ORDERED: NALOXONE 0.4 MG/ML 1 ML (NARCAN) VIAL IV PRN (10:15)
[2021-02-25] MEDS ORDERED: LORazepam 0.5 MG (ATIVAN) TABLET PO PRN (10:15)
[2021-02-25] MEDS ORDERED: KETOROLAC 15 MG/ML VIAL IVP ONE (10:15)
[2021-02-25] MEDS ORDERED: KETOROLAC 30 MG/ML VIAL IVP ONE (10:30)
[2021-02-25] MEDS ORDERED: morphine INJ 10 MG/ML 1ML (SYR OR VIAL) IVP ONE (10:30)
[2021-02-25] MEDS ORDERED: ONDANSETRON 4 MG/2 ML (SDV) Z0FRAN IVP PRN (10:30)
[2021-02-25] MEDS ORDERED: SEVOFLURANE (ULTANE) 15 ML INHAL SOLN ONE (10:31)
[2021-02-25] MEDS ORDERED: KETOROLAC 30 MG/ML VIAL ONE (10:38)
[2021-02-25] MEDS: LACTATED RINGERS 1,000 ML IV SCH (15:23)
[2021-02-25] MEDS: KETOROLAC 15 MG/ML VIAL IV SCH ×2 (16:49→22:10)
[2021-02-25] MEDS: ACETAMINOPHEN 500 MG TAB (TYLENOL) PO SCH (16:49)
[2021-02-25] MEDS: DOCUSATE SODIUM 100 MG (COLACE) CAP PO SCH (22:10)
[2021-02-26 01:45] VITALS: BP 116/56
[2021-02-26] MEDS: LACTATED RINGERS 1,000 ML IV SCH (01:51)
[2021-02-26 04:18] VITALS: BP 119/56
[2021-02-26] MEDS: KETOROLAC 15 MG/ML VIAL IV SCH (04:18)
[2021-02-26 09:12] VITALS: BP 130/59
[2021-02-26] MEDS: DOCUSATE SODIUM 100 MG (COLACE) CAP PO SCH ×2 (10:59→21:00)
[2021-02-26] MEDS: ACETAMINOPHEN 500 MG TAB (TYLENOL) PO SCH (10:59)
[2021-02-26 11:05] VITALS: BP 115/56
--- NOTE | 2021-02-26 12:30 | Progress Note ---
Subjective Date Seen by a Provider: Feb 26, 2021 Time Seen by a Provider: 08:50 Subjective/Events-last exam Patient states that morphine helped her pain and she slept well. Did not have adverse reaction. She is awake and catheter is out. Intake is adequate. She has not yet voided since catheter has been removed. No flatus yet. RN overnight and yesterday states patient seems confused at times, but this morning she is alert and appropriate. She states she had slept well. Ativan ordered for anxiety but she did not get it bc she was asleep. Intake and Output 02/26/21 00:00 Intake Total 3850 ml Output Total 725 ml Balance 3125 ml Intake Oral 1800 ml IV Total 2050 ml Output Urine Total 725 ml 02/26/21 02/26/21 02/26/21 01:45 04:18 08:15 Temp 37.1 37.0 Pulse 73 68 Resp 18 18 B/P (MAP) 116/56 (76) 119/56 (77) Pulse Ox 95 94 94 O2 Delivery Nasal Cannula Nasal Cannula Nasal Cannula O2 Flow Rate 2.00 1.50 1.00 02/26/21 00:00 Intake Total 2800 ml Output Total 450 ml Balance 2350 ml Abdomen is soft and minimally tender. There are bowel sounds. Objective Exam Vital Signs Date Time Temp Pulse Resp B/P (MAP) Pulse Ox O2 Delivery O2 Flow Rate FiO2 02/26/21 08:15 94 Nasal Cannula 1.00 02/26/21 04:18 37.0 68 18 119/56 (77) 94 Nasal Cannula 1.50 02/26/21 01:45 37.1 73 18 116/56 (76) 95 Nasal Cannula 2.00 02/25/21 23:00 94 2.00 02/25/21 22:10 94 Nasal Cannula 2.00 02/25/21 19:30 36.8 89 17 123/56 (78) 91 Room Air 02/25/21 16:48 36.6 97 17 131/60 (83) 94 Room Air 02/25/21 15:42 36.5 89 18 129/59 (82) 94 I & O 02/26/21 07:00 Intake Total 3850 ml Output Total 1525 ml Balance 2325 ml Capillary Refill : Less Than 3 Seconds General Appearance: No Apparent Distress Respiratory: Chest Non Tender, Lungs Clear Cardiovascular: Regular Rate, Rhythm Gastrointestinal: soft, distended; No guarding, No rebound, No tenderness Neurologic/Psychiatric: Alert Skin: Normal Color Results Lab Microbiology 02/25/21 MRSA Screen - Final, Complete MRSA not isolated Procedures RATH, BSO posterior colporraphy Pubovaginal sling Assessment/Plan Assessment/Plan Assess & Plan/Chief Complaint POD 1 s/p RATH, BSO, rectocele repair and PV sling Ambulate, await void. Then DC home. did place courtesy consult for Dr. Cortez, patient's PCP, due to the concern for undiagnosed dementia/ confusion and DC to home. Patient did not have family stay with her last night but daughter expressed that patient has seemed more confused. Final Diagnosis incomplete uterovaginal prolapse mixed incontinence rectocele FAM ELLIS DO Feb 26, 2021 12:30
--- NOTE | 2021-02-26 12:56 | Anesthesia-General Post-Op ---
General Patient Condition Mental Status/LOC: Same as Preop Cardiovascular: Satisfactory Nausea/Vomiting: Absent Respiratory: Satisfactory Pain: Controlled Complications: Absent Post Op Complications Complications None Follow Up Care/Instructions Patient Instructions None needed. Anesthesia/Patient Condition Patient Condition Patient is doing well, no complaints, stable vital signs, no apparent adverse anesthesia problems. No complications reported per nursing. D/C home per [facility] [place], [place] Criteria: Yes CAYETANO BRADLEY CRNA Feb 26, 2021 12:56
[2021-02-26] MEDS: IBUPROFEN 600 MG (MOTRIN) TAB PO SCH (13:12)
[2021-02-26] MEDS ORDERED: SIMETHICONE 80 MG (MYLICON) CHEW ONE (14:51)
[2021-02-26] MEDS: SIMETHICONE 80 MG (MYLICON) CHEW PO SCH ×2 (14:52→21:36)
[2021-02-26 16:14] VITALS: BP 113/56
--- NOTE | 2021-02-26 18:28 | Consultation ---
History of Present Illness History of Present Illness Patient Consulted On(trav/time) 02/26/21 18:28 Date Seen by Provider: Feb 26, 2021 Time Seen by Provider: 18:00 Reason for Visit: CYSTOCELE, SYMPTOMATIC History of Present Illness PT IS A 80 Y/O FEMALE WHO IS KNOWN TO ME FROM CLINIC. SHE HAD BEEN HAVING ISSUES WITH CONSTIPATION, UTI'S HEMATURIA, AND PELVIC DISCOMFORT, TAKEN TO SURGERY BY DR. ELLIS. PT WAS TO BE DC'D HOWEVER WAS CONFUSED AND UNABLE TO BE DISCHARGED TO HOME PLANNED DUE TO HER WEAKNESS AND CONFUSION Allergies and Home Medications Allergies Coded Allergies: latex (Verified Allergy, Mild, RASH, 06/01/18) Sulfa (Sulfonamide Antibiotics) (Verified Allergy, Unknown, 12/04/14) ciprofloxacin (Verified Allergy, Unknown, Rash, 02/18/21) codeine (Verified Adverse Reaction, Unknown, hallucinations, 02/25/21) metronidazole (Verified Adverse Reaction, Unknown, hallucinations, 02/25/21) Patient Home Medication List Home Medication List Reviewed: Yes Acetaminophen (Arthritis Pain Relief) 650 Mg Tablet.er, 1,300 MG PO Q8H PRN for PAIN-MILD, (Reported) Entered as Reported by: CRISTHIAN PENA on 10/16/15 1148 Amlodipine Besylate (Amlodipine Besylate) 5 Mg Tablet, 5 MG PO DAILY PRN for bp>150, (Reported) Entered as Reported by: CRISTHIAN PENA on 02/18/21 1620 Ascorbate Calcium (Vitamin C) 500 Mg Tablet, 500 MG PO DAILY, (Reported) Entered as Reported by: CRISTHIAN PENA on 02/18/21 1620 Aspirin (Adult Low Dose Aspirin EC) 81 Mg Tablet.dr, 81 MG PO DAILY, (Reported) Entered as Reported by: CRISTHIAN PENA on 02/18/21 1616 Cholecalciferol (Vitamin D3) (Vitamin D3) 50 Mcg Tablet, 50 MCG PO DAILY, (Re ported) Entered as Reported by: CRISTHIAN PENA on 02/18/21 1620 Cranberry Fruit (Cranberry) 500 Mg Tab.chew, 1,000 MG PO DAILY, (Reported) Entered as Reported by: CRISTHIAN PENA on 02/18/21 1620 Docusate Sodium (Docusate Sodium) 100 Mg Capsule, 100 MG PO BID Prescribed by: FAM ELLIS on 02/27/21 0809 Glucosam/Chond/Hyalu/Cf Borate (Move Free Joint Health Tablet) 1 Each Tablet, 1 TAB PO HS, (Reported) Entered as Reported by: VIVI MORA on 06/01/18 1142 L.acidoph & Paracasei,B.lactis (Probiotic) 1 Each Capsule, 1 CAP PO DAILY, (Reported) Entered as Reported by: VIVI MORA on 06/01/18 1142 Levocetirizine Dihydrochloride (Levocetirizine Dihydrochloride) 5 Mg Tablet, 5 MG PO DAILY, (Reported) Entered as Reported by: VIVI MORA on 06/01/18 114 Levothyroxine Sodium (Synthroid) 88 Mcg Tablet, 88 MCG PO 0300, (Reported) Entered as Reported by: VIVI MORA on 06/01/18 1142 Last Action: Last Taken Edited Lisinopril (Lisinopril) 20 Mg Tablet, 40 MG PO DAILY, (Reported) Entered as Reported by: VIVI MORA on 06/01/18 114 Metoprolol Succinate (Metoprolol Succinate) 50 Mg Tab.er.24h, 50 MG PO DAILY, (Reported) Entered as Reported by: CRISTHIAN PENA on 02/18/21 1620 Last Action: Last Taken Edited Omeprazole Magnesium (Prilosec Otc) 20 Mg Tablet.dr, 20 MG PO DAILY, (Reported) Entered as Reported by: VIVI MORA on 06/01/18 1142 Pedi Mv No.79/Ferrous Fumarate (Flintstones with Iron Tab Chew) 18 Mg Tab.chew, 18 MG PO DAILY, (Reported) Entered as Reported by: CRISTHIAN PENA on 02/18/21 1620 Pravastatin Sodium (Pravastatin Sodium) 80 Mg Tablet, 80 MG PO HS, (Reported) Entered as Reported by: MAXINE VILLASEÑOR on 12/04/14 0307 Propylene Glycol/Peg 400 (Systane 0.3-0.4% Eye Drops) 15 Ml Drops, 1 DROP OU TID, (Reported) Entered as Reported by: VIVI MORA on 11/11/18 1415 Simethicone (Mi-Acid) 80 Mg Tab.chew, 80 MG PO PCHS Prescribed by: FAM ELLIS on 02/27/21 0809 Sodium Chloride (Saline Nasal [place]) 30 Ml [place], 2 SPRAYS NS BID PRN for ALLERGIES, (Reported) Entered as Reported by: VIVI MORA on 11/11/18 0948 Tramadol HCl (Tramadol HCl) 50 Mg Tablet, 50 MG PO Q4H PRN for PAIN-BREAKTHROUGH Prescribed by: FAM ELLIS on 02/27/21 0809 Vitamin B Complex (Ultra B-100 Complex) 1 Each Tablet.er, 1 EACH PO DAILY, (Reported) Entered as Reported by: CRISTHIAN PENA on 02/18/21 1616 [Waterex] , 1 TAB PO BID, (Reported) Entered as Reported by: VIVI MORA on 06/01/18 1142 Past [id number]-Phkxey-Gatqcq Hx Patient Social History Marrital Status: Living Status: LIVES AT HOME ALONE Employed/Student: retired Smoking Status: Never a Smoker Immunizations Up To Date Date of Influenza Vaccine: Jan 30, 2020 First/Initial COVID19 Vaccinat: yes Second COVID19 Vaccination Trav: yes PED Vaccines UTD: Yes Date of Pneumonia Vaccine: May 20, 2011 Seasonal Allergies Seasonal Allergies: No Current Status Primary Language: Welsh Past Medical History Surgeries: Joint Replacement High Cholesterol, Hypertension TIA, Vertigo [employer] History: Menopausal Sexually Transmitted Disease: No HIV/AIDS: No UTI-Chronic Gastroesophageal Reflux, Diverticulosis Arthritis Hypothyroidsim Cataract Skin Did You Recieve Any Treatments: Yes What Type of Treatment Did You: Surgical Intervention Anxiety Blood Disorders: Yes (anemia) Adverse Reaction/Blood Tranf: No Family Medical History Reviewed and Corrections made Heart Disease, Hypertension Review of Systems Review of Systems General: No Chills, No Night Sweats; Fatigue HEENT: No Head Aches, No Eye Pain, No Dysphasia Pulmonary: No Dyspnea, No Cough Cardiovascular: No: Chest Pain, Palpitations Gastrointestinal: No: Nausea, Vomiting, Abdominal Pain Genitourinary: No Dysuria, No Frequency Neurological: Weakness, Confusion (SLIGHT) Physical Exam Vital Signs Vital Signs - First Documented 02/25/21 06:35 Temp 37.3 Pulse 74 Resp 18 B/P (MAP) 119/62 (81) Pulse Ox 96 O2 Delivery Room Air Capillary Refill : Less Than 3 Seconds Height, Weight, BMI Height: 5'3.00" Weight: 155lbs. 5.0oz. [id number]; 27.14 BMI Method:Actual General Appearance: No Apparent Distress, WD/WN HEENT: PERRL/EOMI, Pharynx Normal Neck: Full Range of Motion, Supple Respiratory: Chest Non Tender, Lungs Clear, Normal Breath Sounds, No Accessory Muscle Use, No Respiratory Distress Cardiovascular: Regular Rate, Rhythm Gastrointestinal: Normal Bowel Sounds, No Organomegaly, No Pulsatile Mass, Non Tender, Soft Rectal: Deferred Back: Normal Inspection Neurologic/Psychiatric: Alert, Oriented x3, No Motor/Sensory Deficits, Normal Mood/Affect Skin: Normal Color, Warm/Dry Lymphatic: No Adenopathy Assessment/Plan Assessment/Plan Admission Dx CYSTOCELE RECTOCELE INCONTINENCE UTEROVAGINAL PROLAPSE HYPERTENSION ANXIETY HYPERLIPIDEMIA Assessment and Plan CYSTOCELE RECTOCELE INCONTINENCE UTEROVAGINAL PROLAPSE HYPERTENSION ANXIETY HYPERLIPIDEMIA MILD POST-OPERATIVE CONFUSION Post-Operative Diagnosis incomplete uterovaginal prolapse, rectocele, cystocele, mixed incontinence Procedure Performed RaT- BSO, posterior colporrhaphy, desura pubovaginal sling CYSTOCELE RECTOCELE INCONTINENCE UTEROVAGINAL PROLAPSE - ADDRESSED SURGICALLY - DEFER TO DR. ELLIS. HYPERTENSION - HOME REGIMEN RESTARTED ANXIETY HYPERLIPIDEMIA - HOME REGIMEN RESTARTED MILD POST-OPERATIVE CONFUSION - WILL PERFORM COGNITIVE TESTING ON PT OUTPATIENT. MARTA FINN MD Feb 26, 2021 18:28
[2021-02-26 20:22] VITALS: BP 127/60
[2021-02-27 00:20] VITALS: BP 112/56
[2021-02-27 03:25] VITALS: BP 121/55
[2021-02-27] MEDS: IBUPROFEN 600 MG (MOTRIN) TAB PO SCH ×2 (06:00)
--- NOTE | 2021-02-27 08:04 | Progress Note ---
Standard Progress Note Progress Notes/Assess & Plan Date Seen by a Provider: Feb 27, 2021 Time Seen by a Provider: 08:00 Progress/Assessment & Plan DC held due to slow post operative progress. She had nor ambulated in halls, but has now ambulated multiple times. Has voided since catheter removed and has had small BM. States she is doing well. Plan DC home today. Took own tyenol last night despite having been given here earlier in the day so will not dc home with tylenol. Refused ibuprofen. will use own tylenol and occ tramadol at home. Refused other pain meds. Dr. Cortez saw her and will have her follow up in 1 week for memory testing FAM ELLIS DO Feb 27, 2021 08:04
[2021-02-27] MEDS ORDERED: DOCU100C37 PO (08:09)
[2021-02-27] MEDS ORDERED: TRM50T PO (08:09)
[2021-02-27] MEDS ORDERED: SMT80CT PO (08:09)
--- NOTE | 2021-02-27 08:11 | Discharge Inst-Women's Service ---
Discharge Inst-Women's Serv Depart Medication/Instructions New, Converted or Re-Newed RX: Transmitted to Pharmacy Instructions nothing in the vagina no lifting over 10 lbs no driving for 1 week ok to do light housework Final Diagnosis incomplete uterovaginal prolapse rectocele mixed incontinence Problems Reviewed?: Yes Consults/Follow Up Additional Follow Up: Yes ([address] Cortez and 1 weekwith Pankaj (appt already made)) Activity Activity: Activity as Tolerated Driving Instructions: No Driving for 1 Week NO SMOKING: NO SMOKING Nothing Inside Vagina: No Douching, No [place], No Tampons Diet Discharge Diet: No Restrictions Symptoms to Report to : Bleeding Excessive, Pain Increased, Fever Over 101 Degrees F, Vaginal Bleeding Increase, Cramps in Feet or Legs, Vaginal Discharge Foul For Any Problems or Questions: Contact Your Physician Skin/Wound Care Infection Signs and Symptoms: Increased Redness, Foul Odor of Wound, Increased Drainage, Skin Itchy or Has a Rash, Increased Swelling, Temperature Above 101 F Operative Area Clean and Dry: You May Remove Bandage (tomorrow) Stitches/[place] [facility]/Dermabond: Dermabond Bathing Instructions: FAM Gonsalves DO Feb 27, 2021 08:11
[2021-02-27] MEDS ORDERED: WITCH HAZEL(TUCKS) 40 EA JAR TOP PRN (08:30)
[2021-02-27] MEDS: SIMETHICONE 80 MG (MYLICON) CHEW PO SCH (11:24)
[2021-02-27] MEDS: DOCUSATE SODIUM 100 MG (COLACE) CAP PO SCH (11:24)
== END 2021-02-27 13:15 | disposition home or self-care (01) ==
LOC: SDC 06:11 → WS 11:36 → SDC 02-27 13:15
PROVIDERS: ATTEND Obstetrics & Gynecology
DX: D25.2 Subserosal leiomyoma of uterus (principal); N81.2 Incomplete uterovaginal prolapse; N88.8 Other specified noninflammatory disorders of cervix uteri; N80.0 Endometriosis of uterus; N83.8 Other noninflammatory disorders of ovary, fallopian tube and broad ligament; I10 Essential (primary) hypertension; K57.30 Diverticulosis of large intestine without perforation or abscess without bleeding; N39.46 Mixed incontinence; E78.00 Pure hypercholesterolemia, unspecified; N39.0 Urinary tract infection, site not specified; K21.9 Gastro-esophageal reflux disease without esophagitis; M19.90 Unspecified osteoarthritis, unspecified site; E03.9 Hypothyroidism, unspecified; F41.9 Anxiety disorder, unspecified; E78.5 Hyperlipidemia, unspecified; Z91.040 Latex allergy status; Z79.899 Other long term (current) drug therapy; Z79.82 Long term (current) use of aspirin; Z79.890 Hormone replacement therapy; Z79.891 Long term (current) use of opiate analgesic; Z86.73 Personal history of transient ischemic attack (TIA), and cerebral infarction without residual deficits; Z78.0 Asymptomatic menopausal state; Z98.51 Tubal ligation status
CPT/HCPCS: 57260; 57288; 58571; 85025; 86850; 86900; 86901; 87081; 88307; 94760; C1771; 36415

== ENCOUNTER → 2021-07-08 | Outpatient (CLI) | payer MEDICARE, OTHER ==
[~2021-07-08] MED LIST changes: +DOCU100C37 PO; +SMT80CT PO; +TRM50T PO
--- NOTE | 2021-07-08 16:29 | Diagnostic Imaging Report ---
INDICATION: 80-year-old asymptomatic postmenopausal female. COMPARISON: None available. FINDINGS: AP Spine L1-L4: [BMD (g/cm2): 1.008] [T-Score: -1.6] [Z-Score: 0.2] [BMD Previous: na] [BMD % Change: na] LT Hip Neck: [BMD (g/cm2): 0.765] [T-Score: -2.0] [Z-Score: 0.1] LT Hip Total: [BMD (g/cm2):0.742] [T-Score:-2.1] [Z-Score: -0.2] [BMD Previous: na] [BMD % Change: na] RT Hip Neck: [BMD (g/cm2):0.847] [T-Score:-1.4] [Z-Score:0.7] RT Hip Total: [BMD (g/cm2):0.789] [T-score:-1.7] [Z-Score:0.2] [BMD Previous:na] [BMD % Change:na] *Indicates significant change from prior examination based on 95% confidence level. World Health Organization criteria for BMD interpretation classify patients as Normal (T-score at or above -1.0), Osteopenic (T-score between -1.0 and -2.5) or Osteoporotic (T-score at or below -2.5). LIMITATIONS AND MODIFICATION: None. FRACTURE RISK (FRAX SCORE): The ten year probability of (%): Major Osteoporotic Fracture: [22.5] Hip Fracture: [6.0] IMPRESSION: 1. Osteopenia (Low bone mass). 2. Baseline examination. 3. See below National Osteoporosis Foundation guidelines on when to potentially initiate pharmacologic therapy. Based on the National Osteoporosis Foundation Guidelines, pharmacologic treatment should be initiated in any of the following, unless clinical conditions suggest otherwise: * Any patient with prior fragility fracture of the hip or vertebrae. A spine fracture indicates 5X risk for subsequent spine fracture and 2X risk for subsequent hip fracture. * Osteoporosis (T-score <-2.5). * Postmenopausal women and men age 50 and older with low bone mass/osteopenia (T-score between -1.0 and -2.5) by DXA and 10-year major osteoporotic fracture greater than 20% or a 10-year probability of hip fracture greater than 3%. These fracture risks are supplied above in the FRAX score, if applicable. * Clinician judgement and/or patient preferences may indicate treatment for people with 10-year fracture probabilities above or below these levels. Dictated by: Dictated on workstation # [id number]
== END ==
LOC: RAD 10:29
PROVIDERS: ATTEND Nurse Practitioner Family
DX: M85.88 Other specified disorders of bone density and structure, other site (principal); Z78.0 Asymptomatic menopausal state
CPT/HCPCS: 77080

== ENCOUNTER → 2021-10-28 | Outpatient (CLI) | payer MEDICARE, OTHER ==
--- NOTE | 2021-10-28 14:55 | Diagnostic Imaging Report ---
PROCEDURE: US Renal Bilateral. TECHNIQUE: Multiple real-time grayscale images were obtained over the kidneys in various projections bilaterally. INDICATION: Recurrent UTIs. Comparison with CT scan of 01/13/2021. Right kidney measures 9.1 x 4.3 x 4.6 cm. Left kidney measures 9 x 4.8 x 4.1 cm. There is no hydronephrosis. Renal cortex is well-preserved. No calculi. No renal masses. Bladder appears normal with bilateral ureteral jets. IMPRESSION: Normal bilateral renal and bladder ultrasound Dictated by: Dictated on workstation # [id number]
== END ==
LOC: RAD 11:50
PROVIDERS: ATTEND Urology
DX: N39.0 Urinary tract infection, site not specified (principal)
CPT/HCPCS: 76770

== ENCOUNTER 2021-11-29 09:18 | Outpatient (RCR) | payer MEDICARE, OTHER ==
[~2021-11-29] VITALS: Ht 160 cm; Wt 69.5 kg
[~2021-11-29 09:18] MED LIST changes: +cefTRIAXone 1,000 MG VIAL IM SCH
[2021-11-29] MEDS ORDERED: WATER (STERILE) FOR INJECTION 10 ML ONE (09:53)
[2021-11-29] MEDS ORDERED: cefTRIAXone 1,000 MG VIAL IM NR (10:00)
[2021-11-29 10:03] VITALS: BP 135/72
[2021-11-30] MEDS ORDERED: LIDOCAINE PF 1% 5 ML (XYLOCAINE) AMP ONE (09:27)
[2021-11-30 09:40] VITALS: BP 129/65
[2021-11-30] MEDS ORDERED: cefTRIAXone 1,000 MG VIAL IM NR (10:00)
== END 2021-11-30 09:40 | disposition home or self-care (01) ==
LOC: SDC 09:18 → EDSTATUS 09:45 → SDC 11-30 09:40
PROVIDERS: ATTEND Family Medicine
DX: N39.0 Urinary tract infection, site not specified (principal)
CPT/HCPCS: 96372

== ENCOUNTER 2022-01-04 09:04 | Outpatient (RCR) | payer MEDICARE, OTHER ==
[2022-01-03 09:45] VITALS: BP 139/80
[2022-01-03] MEDS: LIDOCAINE PF 1% 5 ML (XYLOCAINE) AMP INJ SCH (09:45)
[2022-01-03] MEDS: cefTRIAXone 1,000 MG VIAL IM SCH (09:45)
[~2022-01-04] VITALS: Ht 160 cm; Wt 69.5 kg
[~2022-01-04 09:04] MED LIST changes: -cefTRIAXone 1,000 MG VIAL IM SCH
[2022-01-04 09:26] VITALS: BP 140/78
[2022-01-04] MEDS: cefTRIAXone 1,000 MG VIAL IM SCH (09:26)
[2022-01-04] MEDS: LIDOCAINE PF 1% 5 ML (XYLOCAINE) AMP INJ SCH (09:26)
== END 2022-01-04 09:26 | disposition home or self-care (01) ==
LOC: SDC 09:04
PROVIDERS: ATTEND Family Medicine
DX: N39.0 Urinary tract infection, site not specified (principal)
CPT/HCPCS: 96372

== ENCOUNTER → 2022-02-09 | Outpatient (CLI) | payer MEDICARE, OTHER | LOC: CARD 13:00 | PROVIDERS: ATTEND Internal Medicine Cardiovascular Disease | DX: I08.1 Rheumatic disorders of both mitral and tricuspid valves (principal); I10 Essential (primary) hypertension | CPT/HCPCS: 93306 ==

== ENCOUNTER 2022-07-10 19:06 | Day surgery (SDC) | payer MEDICARE, OTHER ==
[~2022-07-10] VITALS: Ht 160 cm; Wt 68.6 kg
[~2022-07-10 19:06] MED LIST changes: -ONDA4TAB11 SL; -TRAM50TA3 PO
[2022-07-10] MEDS ORDERED: morphine INJ 4 MG/ML 1 ML (VIAL/SYRINGE) IVP PRN (19:15)
[2022-07-10 19:49] VITALS: BP 186/79
[2022-07-10] MEDS ORDERED: PIPERACILLIN SODIUM/TAZOBACTAM 4.5 GM in NS (IVPB) 100 ML IV ONE (20:00)
[2022-07-10] MEDS: LACTATED RINGERS 1,000 ML IV SCH (20:36)
[2022-07-10] MEDS: ONDANSETRON 4 MG/2 ML (SDV) Z0FRAN IVP PRN (20:44)
[2022-07-10 23:38] VITALS: BP 142/65
[2022-07-11] VITALS (14 sets, daily range): BP systolic 138–182; BP diastolic 62–79
[2022-07-11] MEDS: PIPERACILLIN SODIUM/TAZOBACTAM 4.5 GM in NS (IVPB) 100 ML IV SCH ×2 (02:17→12:38)
[2022-07-11] MEDS: LACTATED RINGERS 1,000 ML IV SCH ×2 (06:38→17:29)
--- NOTE | 2022-07-11 07:49 | History & Physical-Surgical ---
FLORENTINCAROLYNNUSHA ALBERTO 07/11/22 0749: History of Present Illness History of Present Illness Reason for visit/HPI 81yo F with h/o diverticulitis, TIAs, and basal cell carcinoma was admitted for acute appendicitis yesterday after experiencing RLQ abd pain that started 4 days ago on 07/08. Pt states that pain started in the evening on 07/08 and was a 9/10, sharp, constant, RLQ pain with radiation to the periumbilical region and LLQ. Pt notes that movement makes it worse. Pt initially thought her pain was due to gas and tried anti-gas medication with no relief. Pt also notes some associated bloating, diarrhea, and nausea. Pt states that pain continued to worsen over the next few days, prompting her to go to urgent care. CT abd/pelvis w/o contrast showed a mildly dilated appendix with wall thickening and inflammatory stranding present. Appendix measured up to 1.2cm. Findings were suspicious for acute appendicitis. WBC was elevated at 15.37 with a left shift. Pt was referred to [facility] for admit. In room, pt is resting comfortably. Pt states improvement of pain with morphine, rating it a 3/10. Pt also notes resolution of nausea with zofran. Pt has no other complaints at this time. Pt does not take any anticoagulation at home. Last meal was yesterday at morning. Pt notes recent completion of second course of amoxacillin for URI, last dose 1 week ago. Pt denies fevers at home, chills, vomiting, CP, worsening SOB or cough, or bloody stools. Date of Admission Jul 10, 2022 at 19:06 Date Seen by a Provider: Jul 11, 2022 Time Seen by a Provider: 06:45 I consulted on this patient on 07/11/22 07:40 Attending Physician Elen Cortez MD Admitting Physician Admitting Physician: Vanita Oliveira DO Attending Physician: Vanita Oliveira DO Consult Allergies and Home Medications Allergies Coded Allergies: fluconazole (Verified Allergy, Mild, Hives, 11/29/21) latex (Verified Allergy, Mild, RASH, 06/01/18) Sulfa (Sulfonamide Antibiotics) (Verified Allergy, Unknown, 12/04/14) ciprofloxacin (Verified Allergy, Unknown, Rash, 02/18/21) codeine (Verified Adverse Reaction, Unknown, hallucinations, 02/25/21) metronidazole (Verified Adverse Reaction, Unknown, hallucinations, 02/25/21) Patient Home Medication List Home Medication List Reviewed: Yes Acetaminophen (Arthritis Pain Relief) 650 Mg Tablet.er, 1,300 MG PO Q8H PRN for PAIN-MILD, (Reported) Entered as Reported by: CRISTHIAN PENA on 10/16/15 1148 Last Action: Reviewed Amlodipine Besylate (Amlodipine Besylate) 5 Mg Tablet, 5 MG PO DAILY PRN for bp>150, (Reported) Entered as Reported by: CRISTHIAN PENA on 02/18/21 162 Last Action: Reviewed Ascorbate Calcium (Vitamin C) 500 Mg Tablet, 500 MG PO DAILY, (Reported) Entered as Reported by: CRISTHIAN PENA on 02/18/21 162 Last Action: Reviewed Cholecalciferol (Vitamin D3) (Vitamin D3) 50 Mcg Tablet, 50 MCG PO DAILY, (Reported) Entered as Reported by: CRISTHIAN PENA on 02/18/21 162 Last Action: Reviewed Cranberry Fruit (Cranberry) 500 Mg Tab.chew, 1,000 MG PO DAILY, (Reported) Entered as Reported by: CRISTHIAN PENA on 02/18/21 162 Last Action: Reviewed Docusate Sodium (Docusate Sodium) 100 Mg Capsule, 100 MG PO BID Prescribed by: FAM ELLIS on 02/27/21 0809 Last Action: Reviewed Glucosam/Chond/Hyalu/Cf Borate (Move Free Joint Health Tablet) 1 Each Tablet, 1 TAB PO HS, (Reported) Entered as Reported by: VIVI MORA on 06/01/18 114 Last Action: Reviewed L.acidoph & Paracasei,B.lactis (Probiotic) 1 Each Capsule, 1 CAP PO DAILY, (Reported) Entered as Reported by: VIVI MORA on 06/01/18 114 Levocetirizine Dihydrochloride (Levocetirizine Dihydrochloride) 5 Mg Tablet, 5 MG PO DAILY, (Reported) Entered as Reported by: VIVI MORA on 06/01/18 114 Last Action: Reviewed Levothyroxine Sodium (Synthroid) 88 Mcg Tablet, 88 MCG PO 0300, (Reported) Entered as Reported by: VIVI MORA on 06/01/18 1142 Last Action: Reviewed Lisinopril (Lisinopril) 20 Mg Tablet, 40 MG PO DAILY, (Reported) Entered as Reported by: VIVI MORA on 06/01/18 114 Last Action: Reviewed Metoprolol Succinate (Metoprolol Succinate) 50 Mg Tab.er.24h, 50 MG PO DAILY, (Reported) Entered as Reported by: CRISTHIAN PENA on 02/18/21 1620 Last Action: Reviewed Omeprazole Magnesium (Prilosec Otc) 20 Mg Tablet.dr, 20 MG PO DAILY, (Reported) Entered as Reported by: VIVI MORA on 06/01/18 114 Last Action: Reviewed Pedi Mv No.79/Ferrous Fumarate (Flintstones with Iron Tab Chew) 18 Mg Tab.chew, 18 MG PO DAILY, (Reported) Entered as Reported by: CRISTHIAN PENA on 02/18/21 1620 Last Action: Reviewed Pravastatin Sodium (Pravastatin Sodium) 80 Mg Tablet, 80 MG PO HS, (Reported) Entered as Reported by: MAXINE VILLASEÑOR on 12/04/14 0307 Last Action: Reviewed Propylene Glycol/Peg 400 (Systane 0.3-0.4% Eye Drops) 15 Ml Drops, 1 DROP OU TID, (Reported) Entered as Reported by: VIVI MORA on 11/11/18 1415 Simethicone (Mi-Acid) 80 Mg Tab.chew, 80 MG PO PCHS Prescribed by: FAM ELLIS on 02/27/21 0809 Last Action: Reviewed Sodium Chloride (Saline Nasal Lenox) 30 Ml [place], 2 SPRAYS NS BID PRN for ALLERGIES, (Reported) Entered as Reported by: VIVI MORA on 11/11/18 0948 Vitamin B Complex (Ultra B-100 Complex) 1 Each Tablet.er, 1 EACH PO DAILY, (Reported) Entered as Reported by: CRISTHIAN PENA on 02/18/21 1616 Last Action: Reviewed [Waterex] , 1 TAB PO BID, (Reported) Entered as Reported by: VIVI MORA on 06/01/18 114 Last Action: Reviewed Discontinued Medications Aspirin (Adult Low Dose Aspirin EC) 81 Mg Tablet.dr, 81 MG PO DAILY, (Reported) Discontinued Reason: No Longer Taking Entered as Reported by: CRISTHIAN PENA on 02/18/21 1616 Last Action: Discontinued Tramadol HCl (Tramadol HCl) 50 Mg Tablet, 50 MG PO Q4H PRN for PAIN-BREAKTHROUGH Discontinued Reason: No Longer Taking Prescribed by: FAM ELLIS on 02/27/21 0809 Last Action: Discontinued Past Cwyedrz-Nzbsuz-Xnciif Hx Patient Social History Tobacco Use?: No Smoking Status: Never a Smoker Smokeless Tobacco Frequency: Never a User Use of E-Cig and/or Vaping dev: No Substance use?: No Alcohol Use?: No Pt feels they are or have been: No Immunizations Up To Date Date of Influenza Vaccine: Jul 10, 2022 First/Initial COVID19 Vaccinat: yes Second COVID19 Vaccination Trav: yes Tetanus Booster (TDap): Less Than 5 Years Hepatitis A: Yes Hepatitis B: Yes PED Vaccines UTD: Yes Date of Pneumonia Vaccine: May 20, 2011 Seasonal Allergies Seasonal Allergies: No Current Status status: No status: No Advance Directives: No Communicates: Verbally Primary Language: [place] Preferred Spoken Language: [place] Is interpretation needed?: No Sensory deficits: Hearing impairment Implanted or Applied Medical D: Orthopedic hardware Past Medical History Surgeries: Abdominal (cystocele and rectocele repair, and bladder sling surger y), Eye Surgery, Hysterectomy, Joint Replacement, Orthopedic High Cholesterol, Hypertension Neuropathy (postherpetic neuralgia), TIA ("hole in heart"-per pt), Vertigo [employer] History: Hysterectomy, Menopausal Sexually Transmitted Disease: No HIV/AIDS: No UTI-Chronic Gastroesophageal Reflux, Diverticulosis (diverticulitis) Arthritis Hypothyroidsim Cataract Hearing Impairment: Hard of Hearing, Hearing Aide Right, Hearing Aide Left Skin (basal cell carcinoma with moh's x3) Did You Recieve Any Treatments: Yes What Type of Treatment Did You: Surgical Intervention (moh's) Anxiety Blood Disorders: Yes (anemia) Adverse Reaction/Blood Tranf: No Family Medical History Heart Disease, Cancer (colon-mother), Hypertension Review of Systems Constitutional: No chills, No diaphoresis EENTM: No tearing, No vision loss Respiratory: cough (chronic from prior cold); No dyspnea on exertion Cardiovascular: No chest pain, No edema Gastrointestinal: abdominal pain (RLQ, periumbilical and LLQ), diarrhea, nausea; No vomiting Genitourinary: No dysuria, No hematuria Musculoskeletal: joint pain (chronic); No muscle pain Skin: No change in color, No change in hair/nails Psychiatric/Neurological: Denies Anxiety, Denies Depressed All Other Systems Reviewed Negative Unless Noted: Yes (Negative excepted noted.) Physical Exam Vital Signs Vital Signs - First Documented 07/10/22 19:49 Temp 36.8 Pulse 75 Resp 20 B/P (MAP) 186/79 (114) Pulse Ox 96 O2 Delivery Room Air Capillary Refill : Height, Weight, BMI Height: 5'3.00" Weight: 155lbs. 5.0oz. 70.351155co; 26.79 BMI Method:Actual General Appearance: No Apparent Distress, WD/WN HEENT: PERRL/EOMI, Moist Mucous Membranes Neck: Non Tender, Supple Respiratory: Lungs Clear, Normal Breath Sounds, No Accessory Muscle Use, No Respiratory Distress Cardiovascular: Regular Rate, Rhythm, No JVD, Systolic Murmur Gastrointestinal: Soft, Tenderness (RLQ, periumbilical, LLQ; + McBurneys point and Rovsing's sign) Extremity: No Calf Tenderness, No Pedal Edema Neurologic/Psychiatric: Alert, Oriented x3, Normal Mood/Affect Skin: Normal Color, Warm/Dry Lymphatic: No Adenopathy Assessment/Plan Assessment/Plan Admission Diagonsis Acute Appendicitis Admission Status: Inpatient Order (span 2 midnights) Assessment/Plan Acute Appendicitis Abd pain- RLQ, Periumbilical, LLQ Nausea Leukocytosis NPO IVF pain medication prn anti-emetics prn IV abx Appendectomy planned for today, consent obtained VANITA OLIVEIRA 07/11/22 0945: History of Present Illness History of Present Illness Reason for visit/HPI 81 year old female began having pain on . Though it was gas, tried gas x, no improvement. Pain continue and went to Urgent Care last night. Pain was Sharp constant 9/10 pain radiation to periumiblical area. Nausues no emesis. Wbc 15.37. Ct scan done demonstrating acute appendicitis. Allergies and Home Medications Allergies Coded Allergies: fluconazole (Verified Allergy, Mild, Hives, 11/29/21) latex (Verified Allergy, Mild, RASH, 06/01/18) Sulfa (Sulfonamide Antibiotics) (Verified Allergy, Unknown, 12/04/14) ciprofloxacin (Verified Allergy, Unknown, Rash, 02/18/21) codeine (Verified Adverse Reaction, Unknown, hallucinations, 02/25/21) metronidazole (Verified Adverse Reaction, Unknown, hallucinations, 02/25/21) Patient Home Medication List Home Medication List Reviewed: Yes Acetaminophen (Arthritis Pain Relief) 650 Mg Tablet.er, 1,300 MG PO Q8H PRN for PAIN-MILD, (Reported) Entered as Reported by: CRISTHIAN PENA on 10/16/15 1148 Last Action: Reviewed Amlodipine Besylate (Amlodipine Besylate) 5 Mg Tablet, 5 MG PO DAILY PRN for bp>150, (Reported) Entered as Reported by: CRISTHIAN PENA on 02/18/211619 Last Action: Reviewed Ascorbate Calcium (Vitamin C) 500 Mg Tablet, 500 MG PO DAILY, (Reported) Entered as Reported by: CRISTHIAN PENA on 02/18/21 162 Last Action: Reviewed Cholecalciferol (Vitamin D3) (Vitamin D3) 50 Mcg Tablet, 50 MCG PO DAILY, (Reported) Entered as Reported by: CRISTHIAN PENA on 02/18/21 162 Last Action: Reviewed Cranberry Fruit (Cranberry) 500 Mg Tab.chew, 1,000 MG PO DAILY, (Reported) Entered as Reported by: CRISTHIAN PENA on 02/18/211619 Last Action: Reviewed Docusate Sodium (Docusate Sodium) 100 Mg Capsule, 100 MG PO BID Prescribed by: FAM ELLIS on 02/27/21 0809 Last Action: Reviewed Glucosam/Chond/Hyalu/Cf Borate (Move Free Joint Health Tablet) 1 Each Tablet, 1 TAB PO HS, (Reported) Entered as Reported by: VIVI MORA on 06/01/18 114 Last Action: Reviewed L.acidoph & Paracasei,B.lactis (Probiotic) 1 Each Capsule, 1 CAP PO DAILY, (Reported) Entered as Reported by: VIVI MORA on 06/01/18 114 Levocetirizine Dihydrochloride (Levocetirizine Dihydrochloride) 5 Mg Tablet, 5 MG PO DAILY, (Reported) Entered as Reported by: VIVI MORA on 06/01/18 114 Last Action: Reviewed Levothyroxine Sodium (Synthroid) 88 Mcg Tablet, 88 MCG PO 0300, (Reported) Entered as Reported by: VIVI MORA on 06/01/18 114 Last Action: Reviewed Lisinopril (Lisinopril) 20 Mg Tablet, 40 MG PO DAILY, (Reported) Entered as Reported by: VIVI MORA on 06/01/18 114 Last Action: Reviewed Metoprolol Succinate (Metoprolol Succinate) 50 Mg Tab.er.24h, 50 MG PO DAILY, (Reported) Entered as Reported by: CRISTHIAN PENA on 02/18/21 162 Last Action: Reviewed Omeprazole Magnesium (Prilosec Otc) 20 Mg Tablet.dr, 20 MG PO DAILY, (Reported) Entered as Reported by: VIVI MORA on 06/01/18 114 Last Action: Reviewed Pedi Mv No.79/Ferrous Fumarate (Flintstones with Iron Tab Chew) 18 Mg Tab.chew, 18 MG PO DAILY, (Reported) Entered as Reported by: CRISTHIAN PENA on 02/18/21 162 Last Action: Reviewed Pravastatin Sodium (Pravastatin Sodium) 80 Mg Tablet, 80 MG PO HS, (Reported) Entered as Reported by: MAXINE VILLASEÑOR on 12/04/14 0307 Last Action: Reviewed Propylene Glycol/Peg 400 (Systane 0.3-0.4% Eye Drops) 15 Ml Drops, 1 DROP OU TID, (Reported) Entered as Reported by: VIVI MORA on 11/11/18 1415 Simethicone (Mi-Acid) 80 Mg Tab.chew, 80 MG PO PCHS Prescribed by: FAM ELLIS on 02/27/21 0809 Last Action: Reviewed Sodium Chloride (Saline Nasal Len[place]) 30 Ml Len[place], 2 SPRAYS NS BID PRN for ALLERGIES, (Reported) Entered as Reported by: VIVI MORA on 11/11/18 0948 Vitamin B Complex (Ultra B-100 Complex) 1 Each Tablet.er, 1 EACH PO DAILY, (Reported) Entered as Reported by: CRISTHIAN PENA on 02/18/21 1616 Last Action: Reviewed [Waterex] , 1 TAB PO BID, (Reported) Entered as Reported by: VIVI MORA on 06/01/18 114 Last Action: Reviewed Discontinued Medications Aspirin (Adult Low Dose Aspirin EC) 81 Mg Tablet.dr, 81 MG PO DAILY, (Reported) Discontinued Reason: No Longer Taking Entered as Reported by: CRISTHIAN PENA on 02/18/21 1616 Last Action: Discontinued Tramadol HCl (Tramadol HCl) 50 Mg Tablet, 50 MG PO Q4H PRN for PAIN-BREAKTHROUGH Discontinued Reason: No Longer Taking Prescribed by: FAM ELLIS on 02/27/21 0809 Last Action: Discontinued Past Mnjhaxn-Ckhpps-Woeyib Hx Past Medical History Surgeries: Abdominal (cystocele and rectocele repair, and bladder sling surgery), Eye Surgery, Hysterectomy, Joint Replacement TIA ("hole in heart"-per pt), Vertigo [employer] History: Hysterectomy Gastroesophageal Reflux, Diverticulosis (diverticulitis) Hearing Impairment: Hard of Hearing What Type of Treatment Did You: Surgical Intervention (moh's) Family Medical History Reviewed Nursing Family Hx Review of Systems Constitutional: No chills, No diaphoresis EENTM: No tearing, No vision loss Respiratory: cough (chronic from prior cold); No dyspnea on exertion Cardiovascular: No chest pain, No edema Gastrointestinal: abdominal pain (RLQ, periumbilical and LLQ), diarrhea, nausea; No vomiting Genitourinary: No dysuria, No hematuria Musculoskeletal: joint pain (chronic); No muscle pain Skin: No change in color, No change in hair/nails Psychiatric/Neurological: Denies Anxiety, Denies Depressed All Other Systems Reviewed Negative Unless Noted: Yes (Negative excepted noted.) Physical Exam General Appearance: No Apparent Distress, WD/WN HEENT: PERRL/EOMI, Normal ENT Inspection Neck: Non Tender, Supple Respiratory: Chest Non Tender, No Accessory Muscle Use, No Respiratory Distress Cardiovascular: Regular Rate, Rhythm, No JVD Gastrointestinal: Soft, Tenderness (RLQ, periumbilical, LLQ; + McBurneys point and Rovsing's sign) Rectal: Deferred Back: No CVA Tenderness, No Vertebral Tenderness Extremity: Non Tender, No Calf Tenderness Neurologic/Psychiatric: Alert, Oriented x3, Normal Mood/Affect Skin: Normal Color, Warm/Dry Lymphatic: No Adenopathy Assessment/Plan Assessment/Plan Admission Diagonsis rlq abdominal pain acute appendicits Admission Status: Observation Assessment/Plan Acute Appendicitis Abd pain- RLQ, Periumbilical, LLQ Nausea Leukocytosis NPO IVF pain medication prn anti-emetics prn IV abx- on Zosyn Discussed risks and benefits of laparoscopic appendectomy all other indicated procedures. to or today. Supervisory-Addendum Brief Verification & Attestation Participated in pt care: history, MDM, physical Personally performed: exam, history, MDM, supervision of care Care discussed with: Medical Student Procedures: n/a Results interpretation: Verified all documentation Verification and Attestation of Medical Student E/M Service A medical student performed and documented this service in my presence. I reviewed and verified all information documented by the medical student and made modifications to such information, when appropriate. I personally performed the physical exam and medical decision making. Vanita Oliveira, Jul 11, 2022,09:48 USHA SHARPE Jul 11, 2022 07:49 VANITA OLIVEIRA DO Jul 11, 2022 09:45
[2022-07-11] MEDS ORDERED: LACTATED RINGERS 1,000 ML IV PRN (09:00)
[2022-07-11] MEDS ORDERED: BUP/EPI 0.5% 1:200,000 (SENSORCAINE) 30 ML VIAL ONE (09:21)
[2022-07-11] MEDS ORDERED: ONDANSETRON 4 MG/2 ML (SDV) Z0FRAN ONE (09:47)
[2022-07-11] MEDS ORDERED: SEVOFLURANE (ULTANE) 15 ML INHAL SOLN ONE (09:47)
[2022-07-11] MEDS ORDERED: proPOfol 200 MG/20 ML (DIPRIVAN) VIAL IV ONE (09:47)
[2022-07-11] MEDS ORDERED: fentaNYL INJ 100 MCG/2 ML AMP ONE (09:47)
[2022-07-11] MEDS ORDERED: ROCURONIUM 50 MG/5 ML (ZEMURON) VIAL IV ONE (09:47)
[2022-07-11] MEDS ORDERED: LIDOCAINE PF 2% 5 ML (XYLOCAINE) VIAL ONE (09:47)
[2022-07-11] MEDS ORDERED: BUP/EPI 0.5% 1:200,000 (SENSORCAINE) 30 ML VIAL INJ ONE (09:50)
[2022-07-11] MEDS ORDERED: morphine INJ 10 MG/ML 1ML (SYR OR VIAL) ONE (10:16)
--- NOTE | 2022-07-11 10:48 | Consultation - Hospitalist ---
HPI History of Present Illness: HPI/Chief Complaint Pt is an 81yo CF with a PMH of HTN, Hypothyroidism, HLD who presented to the ER due to abd pain. She stats her symptoms started on 07/08 and she thought it would get better but worsened over the next couple of days prompting her to seek evaluation in the ER. She was found to have acute appendicitis and Dr Iniguez admitted her and is planning to take her to surgery this morning. I am consulted for medical management. She reports he pain is much improved now. She has not complaints but is worried about her BP. I reviewed her BP with her. Source: patient Exam Limitations: no limitations Date Seen 07/11/22 Attending Physician Elen Cortez MD PCP Admitting Physician: aRza Iniguez DO Attending Physician: Raza Iniguez DO Referring Physician Date of Admission Jul 10, 2022 at 19:06 Home Medications & Allergies Home Medications Reviewed patient Home Medication Reconciliation performed by pharmacy medication reconciliations home appliance technician and/or nursing. Patients Allergies have been reviewed. Allergies Allergies Coded Allergies fluconazole (Verified Allergy, Mild, Hives, 11/29/21) latex (Verified Allergy, Mild, RASH, 06/01/18) Sulfa (Sulfonamide Antibiotics) (Verified Allergy, Unknown, 12/04/14) ciprofloxacin (Verified Allergy, Unknown, Rash, 02/18/21) fentanyl (Verified Adverse Reaction, Mild, 07/11/22) Patient reports "Projectile Vomiting" after administration codeine (Verified Adverse Reaction, Unknown, hallucinations, 02/25/21) metronidazole (Verified Adverse Reaction, Unknown, hallucinations, 02/25/21) midazolam (Unverified Adverse Reaction, Unknown, 07/11/22) Patient reports she had "a difficult time recovering/waking up from Versed." Past Prqbpvr-Fxelso-Tdqagn Hx Patient Social History Marrital Status: Tobacco Use?: No Smoking Status: Never a Smoker Smokeless Tobacco Frequency: Never a User Use of E-Cig and/or Vaping dev: No Substance use?: No Alcohol Use?: No Pt feels they are or have been: No Immunizations Up To Date Date of Influenza Vaccine: Jul 10, 2022 First/Initial COVID19 Vaccinat: yes Second COVID19 Vaccination Trav: yes Tetanus Booster (TDap): Less Than 5 Years Hepatitis A: Yes Hepatitis B: Yes PED Vaccines UTD: Yes Date of Pneumonia Vaccine: May 20, 2011 Seasonal Allergies Seasonal Allergies: No Current Status status: No status: No Advance Directives: No Communicates: Verbally Primary Language: Haitian Preferred Spoken Language: Haitian Is interpretation needed?: No Sensory deficits: Hearing impairment Implanted or Applied Medical D: Orthopedic hardware Past Medical History Surgeries: Abdominal (cystocele and rectocele repair, and bladder sling surgery), Eye Surgery, Hysterectomy, Joint Replacement High Cholesterol, Hypertension TIA ("hole in heart"-per pt), 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 Sexually Transmitted Disease: No HIV/AIDS: No UTI-Chronic Gastroesophageal Reflux, Diverticulosis (diverticulitis) Arthritis Hypothyroidsim Cataract Hearing Impairment: Hard of Hearing Skin Did You Recieve Any Treatments: Yes What Type of Treatment Did You: Surgical Intervention (moh's) Anxiety Blood Disorders: Yes (anemia) Adverse Reaction/Blood Tranf: No Family Medical History Reviewed Nursing Family Hx Heart Disease, Cancer, Hypertension Review of Systems Constitutional: see HPI Physical Exam Physical Exam Vital Signs Vital Signs - First Documented 07/10/22 19:49 Temp 36.8 Pulse 75 Resp 20 B/P (MAP) 186/79 (114) Pulse Ox 96 O2 Delivery Room Air Capillary Refill : Height, Weight, BMI Height: 5'3.00" Weight: 155lbs. 5.0oz. 70.568360au; 26.79 BMI Method:Actual General Appearance: No Apparent Distress, WD/WN HEENT: Moist Mucous Membranes; No Scleral Icterus (L), No Scleral Icterus (R) Respiratory: Lungs Clear, No Accessory Muscle Use, No Respiratory Distress Cardiovascular: Regular Rate, Rhythm, No JVD Gastrointestinal: Normal Bowel Sounds, Soft, Tenderness (RLQ ) Neurologic/Psychiatric: Alert, Oriented x3, Normal Mood/Affect Results Results/Procedures Labs Patient resulted labs reviewed. Imaging: Reviewed Imaging Report Imaging [facility], [place] NAME: PAMELA VÁSQUEZ REC#: [id number] PT STATUS: REG CLI : 1940 PHYSICIAN: VANESSA WHITLEY APRN ADMIT DATE: 07/10/22/RAD Signed Date of Exam:07/10/22 CT ABDOMEN/PELVIS WO EXAMINATION: CT abdomen and pelvis without contrast. TECHNIQUE: Multiple contiguous axial images were obtained through the abdomen and pelvis without the use of intravenous contrast. All CT scans use one or more of the following dose optimizing techniques: automated exposure control, MA and/or KvP adjustment based on patient size and exam type or iterative reconstruction. HISTORY: RUQ pain COMPARISON: 01/13/2021. FINDINGS: Lung bases: Bibasilar dependent atelectasis. Solid organs: The liver is normal. The gallbladder is normal. There is no biliary ductal dilation. Pancreas is normal. Spleen is normal. Adrenal glands are normal. The kidneys are normal without visualized calculus or hydronephrosis. Bowel: The stomach and small bowel are normal without obstruction. There is scattered colonic diverticulosis. The appendix is mildly dilated with wall thickening and inflammatory stranding. It measures up to 1.2 cm. Peritoneum: There is no intraperitoneal free fluid or free air. No suspicious lymphadenopathy. Vasculature: Calcification of the aorta without aneurysm. Musculoskeletal: Degenerative changes of the spine without suspicious osseous lesion or compression fracture. Pelvis: The uterus is surgically absent. No adnexal mass. The urinary bladder is normal. IMPRESSION: Findings of acute appendicitis without abscess or free air. Report was called to K and marked as "urgent" for a call back at 5:23 p.m., by christy. Report was also faxed. Dictated by: Dictated on workstation # [id number] Dict: 07/10/221709 Trans: 07/10/221816 CHRISTY [id number] Interpreted by: NICOLE CANO DO Electronically signed by: NICOLE CANO DO 07/10/22 181 Assessment/Plan Assessment and Plan Assess & Plan/Chief Complaint Acute appendicitis Planning for OR today Pain regimen Zosyn Management per primary HTN HLD Hypothryoidism Resume home meds when able to take PO Diagnosis/Problems Diagnosis/Problems (1) Essential (primary) hypertension (2) HLD (hyperlipidemia) (3) Hypothyroidism (4) Acute appendicitis PIERO WALTER MD Jul 11, 2022 10:48
[2022-07-11] MEDS ORDERED: meTOprolol 5 MG/5 ML (LOPRESSOR) VIAL ONE (11:01)
[2022-07-11] MEDS ORDERED: NEOSTIGMINE (BLOXIVERZ ) 1 MG/1ML 10 ML VIAL ONE (11:02)
[2022-07-11] MEDS ORDERED: GLYCOPYRROLATE 0.2 MG/ML (ROBINUL) 2 ML VIAL ONE (11:02)
--- NOTE | 2022-07-11 11:08 | Progress Note-Post Operative ---
Post-Operative Progess Note Surgeon (s)/Project Reservoir Engineer (s) Surgeon VANITA OLIVEIRA DO Project Reservoir Engineer: na Pre-Operative Diagnosis acute appendicitis Post-Operative Diagnosis same Procedure & Operative Findings Date of Procedure 07/11/22 Procedure Performed/Findings PROCEDURE: Laparoscopic appendectomy. COMPLICATIONS: None. INDICATIONS: The patient is a 81 year old female who has been having right lower quadrant abdominal pain. Patient's exam consistent with appendicitis. I discussed risk and benefits of laparoscopic appendectomy and all indicated procedures with the possibility being a normal appendix. The patient understands the risks and benefits and wishes to proceed. Consent was signed on the chart. DESCRIPTION OF PROCEDURE: The patient was taken to the operating suite, prepped and draped in a sterile fashion. Timeout was performed. Local anesthetic was infiltrated just above the umbilicus and 11-blade scalpel was used to make a skin incision. Cautery was used to dissect down to the fascia and scored. Kochers were used to grasp and elevate it and the abdomen was then entered. A 0 Vicryl was placed in a idqvmi-tq-yayig fashion for closure at the end of the case. The balloon trocar was inserted into the abdomen and pneumoperitoneum was achieved. Under direct visualization of the laparoscope, a 5 mm trocar was placed in the suprapubic region and a 5 mm trocar was placed in the left lower quadrant. Appendix was located, Inflamed dilated appendix. The base of the appendix was dissected around. Once at the base an Endo-LEVI 2.5 stapler was then fired across the base of the appendix. The mesoappendix was then divided. It was then placed in an Endobag and removed through the 12 mm trocar site. The abdomen was then irrigated and suctioned. No other pathology noted. The abdomen was then desufflated and the trocars were removed. The 0 Vicryl placed at the beginning of the case was then tied closing the 12 mm fascial defect. The skin was then closed using 4-0 Monocryl in a subcuticular fashion. The abdomen was then washed and dried and Skin Affix was placed over the incisions. The patient tolerated the procedure well without any complications and was taken to the recovery room in stable condition. Anesthesia Type general Estimated Blood Loss Estimated blood loss (mL): minimal Specimens/Packing Specimens Removed appendix VANITA OLIVEIRA DO Jul 11, 2022 11:08
[2022-07-11] MEDS ORDERED: TRAM50TA3 PO (11:09)
--- NOTE | 2022-07-11 11:10 | Discharge Inst-Simple/Standard ---
Discharge Inst-Standard Discharge Medications New, Converted or Re-Newed RX: Transmitted to Pharmacy Patient Instructions/Follow Up Plan of Care/Instructions/FU: 2 weeks Hira Activity as Tolerated: No Discharge Diet: Regular Diet Other Inst to Patient Follow up Appt: Make appointment for 2 week. Instructions: No lifting greater than 10 pounds. No strenuous activity. May shower in 24 hours, no tub bath or soaking. Use incentive spirometer at home as directed. No Smoking Skin/Wound Care: You have special glue over your incision that will fall off on it's own. Symptoms to Report: Appetite Changes, Extremity Discoloration, Numbness/Tingling, Swelling Increased, Bleeding Excessive, Eyesight Changes, Pain Increased, Urine Color Change, Constipation(Persistent), Fever over 101 degree F, Pain/Pressure in chest, Urinating Difficulty, Cough Up/Vomit Blood, Heart Beat Irreg/Pounding, Pain/Pressure in jaw, Vaginal Bleeding Increase, Cramps in feet or legs, Lightheadedness, Pain/Pressure in shoulder, Diarrhea(Persistent), Memory Changes Suddenly, Questions/Concerns, Weight gain consecutive days, Dizziness/Fainting, Nausea/Vomiting, Shortness of Breath, Weight gain over 2 pounds If questions or concerns contact your physician Or seek help at emergency department. VANITA OLIVEIRA DO Jul 11, 2022 11:10
--- NOTE | 2022-07-11 11:35 | Anesthesia-General Post-Op ---
General Patient Condition Mental Status/LOC: Same as Preop Cardiovascular: Satisfactory Nausea/Vomiting: Absent Respiratory: Satisfactory Pain: Controlled Complications: Absent Post Op Complications Complications None Follow Up Care/Instructions Patient Instructions None needed. Anesthesia/Patient Condition Patient Condition Patient is doing well, no complaints, stable vital signs, no apparent adverse anesthesia problems. No complications reported per nursing. LARRY COHEN CRNA Jul 11, 2022 11:35
[2022-07-11] MEDS ORDERED: ONDANSETRON 4 MG/2 ML (SDV) Z0FRAN IVP PRN (11:45)
[2022-07-11] MEDS ORDERED: morphine INJ 10 MG/ML 1ML (SYR OR VIAL) IVP ONE (11:45)
[2022-07-11] MEDS ORDERED: meTOproloL SUCCINATE 50 MG (TOPROL XL) TAB PO SCH (14:00)
[2022-07-11] MEDS ORDERED: lisINopril 40 MG (PRINIVIL) TABLET PO SCH (14:00)
[2022-07-11] MEDS ORDERED: TRM50T PO (16:12)
[2022-07-11] MEDS: ONDANSETRON 4 MG/2 ML (SDV) Z0FRAN IVP PRN (16:41)
[2022-07-11] MEDS ORDERED: ONDA4TAB11 SL (19:37)
[2022-07-11] MEDS ORDERED: ONDANSETRON 4 MG (ZOFRAN) ORAL DISSOLVE TAB PO ONE (19:45)
[2022-07-11] MEDS ORDERED: ONDANSETRON 4 MG (ZOFRAN) ORAL DISSOLVE TAB ONE (19:49)
[2022-07-12] MEDS ORDERED: lisINopril 40 MG (PRINIVIL) TABLET PO SCH (09:00)
[2022-07-12] MEDS ORDERED: meTOproloL SUCCINATE 50 MG (TOPROL XL) TAB PO SCH (09:00)
[2022-07-12] MEDS ORDERED: lisINopril 20 MG (PRINIVIL) TABLET PO SCH (09:00)
== END 2022-07-11 20:34 | disposition home or self-care (01) ==
LOC: 4TH 19:06 → SDC 19:06 → 4TH 19:06 → UNDOADMOB 19:06 → SDC 07-11 20:34 → UNDODISOB 07-11 20:34
PROVIDERS: ATTEND Surgery
DX: K35.80 Unspecified acute appendicitis (principal); I10 Essential (primary) hypertension; E78.5 Hyperlipidemia, unspecified; E03.9 Hypothyroidism, unspecified; Z79.899 Other long term (current) drug therapy; D72.829 Elevated white blood cell count, unspecified; Z79.890 Hormone replacement therapy
CPT/HCPCS: 88304; 94664; 96374; 96375; 96376

== ENCOUNTER → 2022-07-10 | Outpatient (CLI) | payer MEDICARE, OTHER ==
[~2022-07-10] MED LIST changes: +ONDA4TAB11 SL; +TRAM50TA3 PO
--- NOTE | 2022-07-10 18:10 | Diagnostic Imaging Report ---
EXAMINATION: CT abdomen and pelvis without contrast. TECHNIQUE: Multiple contiguous axial images were obtained through the abdomen and pelvis without the use of intravenous contrast. All CT scans use one or more of the following dose optimizing techniques: automated exposure control, MA and/or KvP adjustment based on patient size and exam type or iterative reconstruction. HISTORY: RUQ pain COMPARISON: 01/13/2021. FINDINGS: Lung bases: Bibasilar dependent atelectasis. Solid organs: The liver is normal. The gallbladder is normal. There is no biliary ductal dilation. Pancreas is normal. Spleen is normal. Adrenal glands are normal. The kidneys are normal without visualized calculus or hydronephrosis. Bowel: The stomach and small bowel are normal without obstruction. There is scattered colonic diverticulosis. The appendix is mildly dilated with wall thickening and inflammatory stranding. It measures up to 1.2 cm. Peritoneum: There is no intraperitoneal free fluid or free air. No suspicious lymphadenopathy. Vasculature: Calcification of the aorta without aneurysm. Musculoskeletal: Degenerative changes of the spine without suspicious osseous lesion or compression fracture. Pelvis: The uterus is surgically absent. No adnexal mass. The urinary bladder is normal. IMPRESSION: Findings of acute appendicitis without abscess or free air. Report was called to [facility] and marked as "urgent" for a call back at 5:23 p.m., by mary. Report was also faxed. Dictated by: Dictated on workstation # [id number]
== END ==
LOC: RAD 16:22
PROVIDERS: ATTEND Registered Nurse Critical Care Medicine
DX: K37 Unspecified appendicitis (principal); H65.03 Acute serous otitis media, bilateral; Z20.828 Contact with and (suspected) exposure to other viral communicable diseases; I10 Essential (primary) hypertension; J01.80 Other acute sinusitis; G44.89 Other headache syndrome; M15.8 Other polyosteoarthritis; N39.0 Urinary tract infection, site not specified
CPT/HCPCS: 74176

== ENCOUNTER → 2022-12-29 | Outpatient (CLI) | payer MEDICARE, OTHER ==
[~2022-12-29] MED LIST changes: +ONDA4TAB11 SL; +TRAM50TA3 PO
--- NOTE | 2022-12-29 19:01 | Diagnostic Imaging Report ---
PROCEDURE: US Venous Lower Ext Varinder. TECHNIQUE: Multiple real-time grayscale images were obtained over the lower extremities in various projections, bilaterally. Additional duplex Doppler and color Doppler images were also obtained. INDICATION: Bilateral leg pain. There is no evidence of right or left lower extremity DVT. Both lower extremity deep venous systems demonstrate normal compressibility with normal response to augmentation and Valsalva. No fluid collection or mass is detected. IMPRESSION: No evidence of right or left lower extremity DVT. Dictated by: Dictated on workstation # [id number]
== END ==
LOC: RAD 13:03
PROVIDERS: ATTEND Internal Medicine
DX: M71.21 Synovial cyst of popliteal space [Baker], right knee (principal)
CPT/HCPCS: 93970

== ENCOUNTER → 2023-03-09 | Outpatient (CLI) | payer MEDICARE, OTHER ==
[~2023-03-09] MED LIST changes: +CATHETER FLUSH 10 ML SYR IV PRN; +HOLD METFORMIN - RECEIVED CONTRAST 20 ML VIAL IV SCH; +IOHEXOL 350 MG/ML 100 ML (OMNIPAQUE 350) VIAL IV ONE; +NS 100 ML (IVPB) BAG IV ONE
[2023-03-09 10:57] LABS: CREATININE SERUM 0.79 MG/DL (0.60-1.30)
--- NOTE | 2023-03-09 12:33 | Diagnostic Imaging Report ---
PROCEDURE: CT chest with contrast only. TECHNIQUE: Multiple contiguous axial images were obtained through the chest after administration of intravenous contrast. Auto Exposure Controls were utilized during the CT exam to meet ALARA standards for radiation dose reduction. INDICATION: Goiter and diverticulum. Compared with study 10/31/2020. FINDINGS: Right-sided paratracheal diverticulation at the level of the thoracic inlet stable. No airway embarrassment. No endobronchial filling defect. No pneumothorax or pneumomediastinum. No edema or pneumonia. There are partly calcified benign pulmonary granulomatous stable from multiple priors dating back to 2018. Calcified thoracic granulomatous moises residual also unchanged. Atherosclerotic aorta nonaneurysmal. No pleural or pericardial effusion. The visible upper abdomen unremarkable. IMPRESSION: Stable chronic findings with benign pulmonary parenchymal and moises granulomatous disease and thoracic inlet right paratracheal diverticula. No acute or suspicious finding identified. Dictated by: Dictated on workstation # [id number]
--- NOTE | 2023-03-09 16:39 | Diagnostic Imaging Report ---
PROCEDURE: US Thyroid. TECHNIQUE: Multiple real-time grayscale images were obtained of the thyroid in various projections. INDICATION: Follow-up thyroid nodules. COMPARISON: Thyroid ultrasound 10/31/2020. FINDINGS: The right thyroid lobe measures 3.9 x 1.1 x 1.0 cm. The left thyroid lobe measures 3.6 x 1.1 x 0.7 cm. The isthmus measures 0.2 cm. The thyroid parenchyma and vascularity is normal. Unchanged are a few small thyroid nodules, largest measuring 0.3 x 0.2 x 0.2 cm. No suspicious thyroid nodules. IMPRESSION: No change to the benign-appearing thyroid nodules. Dictated by: Dictated on workstation # [id number]
== END ==
LOC: RAD 10:45
PROVIDERS: ATTEND Otolaryngology Otolaryngology/Facial Plastic Surgery
DX: E04.9 Nontoxic goiter, unspecified (principal); K57.90 Diverticulosis of intestine, part unspecified, without perforation or abscess without bleeding; D71 Functional disorders of polymorphonuclear neutrophils; J39.8 Other specified diseases of upper respiratory tract
CPT/HCPCS: 36415; 71260; 76536; 82565; 84520